=== PATIENT | female | born 1995 | race Caucasian/White ===

== ENCOUNTER 2022-02-14 13:55 | Outpatient (CLI) | payer OTHER, SELFPAY ==
[2022-02-15 14:50] LABS: Strep B DNA Probe POSITIVE (Negative)
== END 2022-02-14 13:56 | disposition home or self-care (01) ==
LOC: NFLDREF 13:55
PROVIDERS: Visit Provider Advanced Practice Midwife
DX: Z34.93 Encounter for supervision of normal pregnancy, unspecified, third trimester (principal); Z3A.36 36 weeks gestation of pregnancy
CPT/HCPCS: 76816; 87081; 87653

== ENCOUNTER 2022-03-06 06:58 | Inpatient (IN) | payer OTHER, SELFPAY ==
[2022-03-06] VITALS (16 sets, daily range): BP systolic 125–143; BP diastolic 60–83; PULSE 83–94; RESP 16–20; TEMP 36.4–37; O2SAT 97–98; BMI 39.6
--- OUTSIDE RECORDS SUMMARY | 2022-03-06 07:03 | XMS_ITS | Encounter Summary ---
:1995 Author Organization [facility] Address [address] [place] [address] Care Team Providers Name Role Phone Jerry Patterson M.D. Primary Care Provider Reason for Visit Reason Comments Med Refill Encounter Details Date Type Department Care Team Description 12/12/2021 Refill Department of Sleep Medicine Allison Whiteside M.D. Med Refill in [address] Kady [facility] [place] [address] [place] [address] [phone] Social History Tobacco Use Types Packs/Day Years Used Date Smoking Tobacco: Never Smokeless Tobacco: Never Alcohol Use Standard Drinks/Week Comments No 0 (1 standard drink = 0.6 oz pure alcoho l) Alcohol Habits Answer Date Recorded How often do you have a drink containing alcohol? Never 06/21/2021 How many drinks containing alcohol do you have on a typical Not asked day when you are drinking? How often do you have six or more drinks on one occasion? No t asked Comment: Not asked Social Isolation Answer Date Recorded In a typical week, how many times do you Once a week 06/21/2021 talk on the phone with family, friends, or neighbors? How often do you get together with friends Once a week 06/21/2021 or relatives? How often do you attend quaker or spiritism More than 4 time s per year 06/21/2021 services? Do you belong to any clubs or organizations Yes 06/21/2021 such as quaker groups, unions, fraternal or athletic groups, or school groups? How often do you attend meetings of the More than 4 times pe r year 06/21/2021 clubs or organizations you belong to? Are you now , , , 06/21/2021 , never or living with a partner? Physical Activity Answer Date Recorded On average, how many days per week do you engage in moderate to 3 days 06/21/2021 strenuous exercise (like walking fast, running, jogging, dancing, swimming, biking, or other activities that cause a light or heavy sweat)? On average, how many minutes do you engage in exercise at th is 60 min 06/21/2021 level? Stress Answer Date Recorded Do you feel stress - tense, restless, nervous, or To some ex tent 06/21/2021 anxious, or unable to sleep at night because your mind is troubled all the time - these days? Financial Resource Strain Answer Date Recorded How hard is it for you to pay for the very basics like Somew hat hard 06/21/2021 food, housing, medical care, and heating? Intimate Partner Violence Answer Date Recorded Within the last year, have you been afraid of your partner o r No 06/21/2021 ex-partner? Within the last year, have you been humiliated or emotionall y No 06/21/2021 abused in other ways by your partner or ex-partner? Within the last year, have you been kicked, hit, slapped, or No 06/21/2021 otherwise physically hurt by your partner or ex-partner? Within the last year, have you been raped or forced to have any No 06/21/2021 kind of sexual activity by your partner or ex-partner? Food Insecurity Answer Date Recorded Within the past 12 months, you worried that your food would Never true 06/21/2021 run out before you got money to buy more. Within the past 12 months, the food you bought just didn't N ever true 06/21/2021 last and you didn't have money to get more. Transportation Needs Answer Date Recorded In the past 12 months, has lack of transportation kept you f rom No 06/21/2021 medical appointments or from getting medications? In the past 12 months, has lack of transportation kept you f rom No 06/21/2021 meetings, work, or getting things needed for daily living? Housing Stability Answer Date Recorded In the last 12 months, was there a time when you were not ab le No 06/21/2021 to pay the mortgage or rent on time? In the last 12 months, how many places have you lived? 1 06/21/2021 In the last 12 months, was there a time when you did not hav e a No 06/21/[address] to sleep or slept in a senior care (including now)? Education Answer Date Recorded What is the highest level of school Bachelor's degree (e.g., BA, AB, 06/21/2021 you have completed or the highest BS) degree you have received? Sex Assigned at Date Recorded Female 06/21/2021 12:52 PM HAZ TECH documented as of this encounter Plan of Treatment Upcoming Encounters Date Type Specialty Care Team Description 04/22/2022 Appointment Laboratory Medicine Meryl Julio M.D. [address] [place], [place] [address] (Hector martin) 04/29/2022 Office Visit Endocrinology Meryl Julio M .D. [address] [place], [place] [address] (Hector martin) documented as of this encounter Visit Diagnoses Diagnosis Restless Leg Syndrome Deficiency Iron documented in this encounter Care Teams Cardroom Drawing Runner Relationship Specialty Start Date End Date Jerry Patterson M.D. PCP - General Family Medicine 05/06/21 [address] [place] [phone] documented as of this encounter
--- OUTSIDE RECORDS SUMMARY | 2022-03-06 07:03 | XMS_ITS | Encounter Summary ---
:1995 Author Organization [facility] Address [address] [place] [address] Care Team Providers Name Role Phone Jerry Patterson M.D. Primary Care Provider Encounter Details Date Type Department Care Team Description 01/14/2022 Clinical Communication Department of Kunal Osuna, Medicine in Cristina Polk M.D. [place] [address] [place], [place] [phone] Social History Tobacco Use Types Packs/Day Years [...] or relatives? How often do you attend jehovah's witness or spiritism More than 4 time s per year 06/21/2021 services? Do you belong to any clubs or organizations Yes 06/21/2021 such as jehovah's witness groups, unions, fraternal or athletic groups, or [...] place to sleep or slept in a fpc (including now)? Education Answer Date Recorded What is the highest level of school Bachelor's degree (e.g., BA, AB, 06/21/2021 you have completed or the highest BS) degree you have received? 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 Collins. She states that Dr. Collins was having her CPAP stuff sent to [facility] to have everything mailed to her, but she has not received it yet. She is wondering if we can maybe transfer to [facility], she says she has had a better experience with them as a supplier. Action Needed: Please reach out to [facility] to assist her in obtaining her supplies and informing her of what she can do. Her number is [phone] Special calling instructions: Ok to leave detailed message on voicemail? Yes Portal- please call documented in this encounter Plan of Treatment Upcoming Encounters Date Type Specialty Care Team Description 04/22/2022 Appointment Laboratory Medicine Meryl Julio M.D. [address] [place] [address] (Wo rk) 04/29/2022 Office Visit Endocrinology Meryl Julio M .D. [address] [place], [place] [address] (Wo rk) documented as of this encounter Visit Diagnoses Not on filedocumented in this encounter Care Teams Tar Processing Technician Relationship Specialty Start Date End Date Jerry Patterson M.D. PCP - General Family Medicine 05/06/21 [address] [place] [phone] documented as of this encounter
--- OUTSIDE RECORDS SUMMARY | 2022-03-06 07:03 | XMS_ITS | Encounter Summary ---
:1995 Author Organization [facility] Address [address] [place] [address] Care Team Providers Name Role Phone Jerry Patterson M.D. Primary Care Provider Reason for Referral Outpatient (Routine) - Closed Specialty Diagnoses / Procedures Referred By Contact Refer red To Contact Diagnoses Palpitations Ld Montoya M.D. [facility] Procedures Echo Transthoracic (TTE) [address] [address] Referral ID Status Reason Start Date Expiration Date Visits Requ ested Visits Authorized [id number] Closed 10/10/2021 10/10/2022 1 1 Reason for Visit Outpatient (Routine) - Closed Specialty Diagnoses / Procedures Referred By Contact Refer red To Contact Diagnoses Palpitations Ld Montoya M.D. [facility] Procedures Echo Transthoracic (TTE) [address] [address] Referral ID Status Reason Start Date Expiration Date Visits Requ ested Visits Authorized [id number] Closed 10/10/2021 10/10/2022 1 1 Encounter Details Date Type Department Care Team Description 10/31/2021 Hospital Encounter Department of Ld Montoya Cardiovascular Diseases in [place]. [place], Ernesto dimas [address] [place] [phone] [address] [phone] [place] [address] Social History Tobacco Use Types Packs/Day Years [...] or relatives? How often do you attend caodaism or hoahaoism More than 4 time s per year 06/21/2021 services? Do you belong to any clubs or organizations Yes 06/21/2021 such as caodaism groups, unions, fraternal or athletic groups, or [...] place to sleep or slept in a [place] [facility] [place] (including now)? Education Answer Date Recorded What is the highest level of school Bachelor's degree (e.g., BA, AB, 06/21/2021 you have completed or the highest BS) degree you have received? 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 Syndrome propranoloL (INDERAL) 80 Take 80 mg by mouth 0 mg tablet every 12 (twelve) hours. TENS unit and electrodes Acute treatment is 1 each 0 (Cefaly) combo for 60 minutes. packIndications: Preventive treatment Migraine Headache is 20 min per day. iron,carbonyl-vitamin C Take 1 tablet (65 mg 30 tablet 2 12/16/2021 (VITRON-C) 65 mg iron- of iron total) by [address] mouth every evening. tabletIndications: Do not crush or Restless Leg Syndrome, chew. Deficiency Iron levothyroxine Take 1 tablet (112 90 tablet 3 07/16/202104/2022 (SYNTHROID, LEVOTHROID) mcg total) by mouth 112 mcg tablet daily. Take 2 extra tabs/week during documented as of this encounter Plan of Treatment Upcoming Encounters Date Type Specialty Care Team Description 04/22/2022 Appointment Laboratory Medicine Meryl Julio M.D. [address] [place] [address] (Hector martin) 04/29/2022 Office Visit Endocrinology Meryl Julio M .D. [address] [place] [address] (Hector martin) documented as of this encounter Procedures Procedure Name Priority Date/Time Associated Diagnosis Comme nts (TTE) 2D ECHO Routine 10/31/2021 1:25 PM Palpitations Results for this DOPPLER COLOR CDT procedure are in the results section. documented in this encounter Results (TTE) 2D ECHO DOPPLER COLOR (10/31/2021 1:25 PM CDT) Specimen (Source) Anatomical Location Collection Method / Collectio n Time Received Time / Laterality Volume Narrative [facility] - 11/01/2021 8:28 AM CDT This study was read by an external provider and scanned to the patient's chart. Please launch the scanned documen t link to view the full report. Reinaldo Holliday M.D. CV ECHO PROCEDURES Performing Organization Address City/State/ZIP Code Phon e Number CV EIMS CV EIMS NA documented in this encounter Visit Diagnoses Diagnosis Palpitations documented in this encounter Care Teams Eyedotter Relationship Specialty Start Date End Date Jerry Patterson M.D. PCP - General Family Medicine 05/06/[address] [place] [phone] documented as of this encounter
--- OUTSIDE RECORDS SUMMARY | 2022-03-06 07:03 | XMS_ITS | Encounter Summary ---
:1995 Author Organization [facility] Address [address] [place] [address] Care Team Providers Name Role Phone Jerry Patterson M.D. Primary Care Provider Reason for Visit Reason Comments Form Review [facility]CPAP Supp[facility] Encounter Details Date Type Department Care Team Description 01/23/2022 Clinical Communication Department of Jerry Patterson For m Review Family Medicine in [place] ([facility] [place], [place] [address] Medical-CPAP [address] [place], [place] Supplies) [place] [id number] Social History Tobacco Use Types Packs/Day Years [...] or relatives? How often do you attend rastafari or caodaism More than 4 time s per year 06/21/2021 services? Do you belong to any clubs or organizations Yes 06/21/2021 such as rastafari groups, unions, fraternal or athletic groups, or [...] place to sleep or slept in a fci (including now)? Education Answer Date Recorded What is the highest level of school Bachelor's degree (e.g., BA, AB, 06/21/2021 you have completed or the highest BS) degree you have received? 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 Telephone Encounter - Trinh Page - 01/23/2022 1:22 PM CDT Form was emailed to Bin Patterson for electronic review/signature. TRIAGE ASSISTANT: [employer] PHONE NUMBER: [phone] INFO REQUESTED: CPAP supplies INSTRUCTIONS: Fax form to [phone] documented in this encounter Plan of Treatment Upcoming Encounters Date Type Specialty Care Team Description 04/22/2022 Appointment Laboratory Medicine Meryl Julio M.D. [address] [place] [address] (Wo rk) 04/29/2022 Office Visit Endocrinology Meryl Julio M .D. [address] [place], [place] [address] (Wo rk) documented as of this encounter Visit Diagnoses Not on filedocumented in this encounter Care Teams Gaming Commissioner Relationship Specialty Start Date End Date Jerry Patterson M.D. PCP - General Family Medicine 05/06/21 [address] [place] [address] documented as of this encounter
--- OUTSIDE RECORDS SUMMARY | 2022-03-06 07:03 | XMS_ITS | Clinical Summary ---
:1995 Author Organization [facility] [place] [address] Care Team Providers Name Role Phone Jerry Patterson MD Primary Care Provider Allergies Active Allergy Reactions Severity Noted Date Comments Ciprofloxacin Hives 06/26/2021 Clindamycin Anaphylaxis High 11/24/2016 Gentamicin Anaphylaxis High 06/26/2021 Medications Medication Sig Dispensed Refills Start Date End Date Status levothyroxine Take 1 Tablet 0 10/10/2021 A ctive (SYNTHROID) 112 mcg (112 mcg) by tablet mouth before breakfast. Take twice daily on Thursday and Thursday metFORMIN (GLUCOPHAGE Take 1,000 mg by 0 02/13/2021 02/13/2022 XR) 500 mg mouth 2 times Extended-Release daily. tablet propranolol ER Take 80 mg by 0 02/22/2021 02/22/2022 (INDERAL LA) 80 mg mouth. Cs24 Sustained-Release capsule Active Problems Not on file Social History Tobacco Use Types Packs/Day Years Used Date Never Smoker Smokeless Tobacco: Never Used Alcohol Use Standard Drinks/Week Comments Never 0 (1 standard drink = 0.6 oz pure alcoho l) Alcohol Habits Answer Date Recorded How often do you have a drink containing alcohol? Never 06/26/2021 How many drinks containing alcohol do you have on a typical Not asked day when you are drinking? How often do you have six or more drinks on one occasion? No t asked Comment: Not asked Sex Assigned at Date Recorded Not on file Obstetrics History Last Filed Vital Signs Vital Sign Reading Time Taken Comments Blood Pressure 110/66 10/10/2021 2:04 PM CDT Pulse 84 10/10/2021 2:04 PM CDT Temperature 37 ??C (98.6 ??F) 06/26/2021 5:02 PM SUPERVISORY GEOGRAPHER Respiratory Rate 15 06/26/2021 7:56 PM SUPERVISORY GEOGRAPHER Oxygen Saturation 99% 06/26/2021 10:15 PM SUPERVISORY GEOGRAPHER Inhaled Oxygen Concentration - - Weight 100.7 kg (222 lb) 10/10/2021 2:04 PM CDT Height 167.6 cm (5' 6) 06/26/2021 5:02 PM SUPERVISORY GEOGRAPHER Body Mass Index 35.83 06/26/2021 5:02 PM SUPERVISORY GEOGRAPHER Plan of Treatment Health Maintenance Due Date Last Done Comments COVID-19 vaccine series (#1) 02/18/1994 Tdap 2004 Depression screening for age 12+ 2005 BMI (ht and wt on same day) for age 18+ 08/19/2011 Hepatitis C screening for age 18-79 08/19/2011 Tetanus booster 2013 Pap test for age 21-65 2014 Influenza for age 9-49 01/23/2022 Results Not on filefrom Last 3 Months Insurance Payer Benefit Plan / Subscriber ID Effective Dates Phone Addre ss Type Group BLUE [employer]OSS BLUE [employer] OF [id number] 2012-Present [address] [place] [address] [employer] WORK[employer] [id number] 2020-Presen [address] [place] [address] [facility] [id number] 2021-Present [address] [place] [address] [facility] [id number] 2021-Present [address] [place] [address] [employer] OF [id number] 2009-Present [address] [place] [address] Felecia Cardenas Personal/Family Self 1995 [address] (Home) [place] [address] Felecia Cardenas Workers Comp Self 1995 [address] (Home) [place] [phone] (Work) Felecia Cardenas Personal/Family Self 1995 [address] (Home) [place] [phone] (Work) Advance Directives Latest Code Status on File Code Status Date Activated Date Inactivated Comments Full Code 10/29/2011 7:36 AM 10/29/2011 7:15 PM Care Teams Microsoft Windows Engineer Relationship Specialty Start Date End Date Jerry Patterson MD PCP - General Family Practice 06/26/[address] [place] [address] [place] [phone]
--- OUTSIDE RECORDS SUMMARY | 2022-03-06 07:03 | XMS_ITS | Encounter Summary ---
:1995 Author Organization [facility] Address [address] [place] [address] Care Team Providers Name Role Phone Jerry Patterson M.D. Primary Care Provider Encounter Details Date Type Department Care Team Description 11/26/2021 Abstract Department of Obstetrics and [facility] Rhett andrade M.D. Gynecology in [place], [address] [place] [phone] [place] [address] [place] [address] [phone] Social History Tobacco Use Types Packs/Day Years [...] or relatives? How often do you attend taoism or confucianism More than 4 time s per year 06/21/2021 services? Do you belong to any clubs or organizations Yes 06/21/2021 such as taoism groups, unions, fraternal or athletic groups, or [...] at Date Recorded Female 06/21/2021 12:52 PM CASINO DEALER documented as of this encounter Plan of Treatment Upcoming Encounters Date Type Specialty Care Team Description 04/22/2022 Appointment Laboratory Medicine Meryl Julio M.D. [address] [place], [place] [address] (Wo rk) 04/29/2022 Office Visit Endocrinology Meryl Julio M .D. [address] [place], [place] [address] (Wo rk) documented as of this encounter Visit Diagnoses Not on filedocumented in this encounter Care Teams Course Developer Relationship Specialty Start Date End Date Jerry Patterson M.D. PCP - General Family Medicine 05/06/21 [address] [place] [phone] documented as of this encounter
--- OUTSIDE RECORDS SUMMARY | 2022-03-06 07:03 | XMS_ITS | Encounter Summary ---
:[address] [facility] Address [address] [place] [address] Care Team Providers Name Role Phone Jerry Patterson M.D. Primary Care Provider Reason for Referral Outpatient (Routine) - Authorized Specialty Diagnoses / Procedures Referred By Contact Refer red To Contact Endocrinology Meryl Julio M.D. [address] [address] Referral ID Status Reason Start Date Expiration Date Visits V isits Requested Authorized [id number] Authorized 02/03/2022 02/02/2025 1 1 Reason for Visit Outpatient (Routine) - Closed Specialty Diagnoses / Procedures Referred By Contact Refer red To Contact Endocrinology Diagnoses Hypothyroidism Primary Encounter For Supervision Of Normal Unspecified Trimester (HCC) Rhett Zazueta M.D. [address] [address] Referral ID Status Reason Start Date Expiration Date Visits Requ ested Visits Authorized [id number] Closed 12/13/2021 12/13/2022 1 1 Encounter Details Date Type Department Care Team Description 02/03/2022 Office Visit Department of Meryl Julio, Hypothyroidi sm Primary (Primary Dx); Endocrinology in M.D. Thyroiditis Deric's; [place], [place] [address] [facility] 34 Weeks Gestation (HCC) [address] [place] [phone] Social History Tobacco Use Types Packs/Day Years [...] or relatives? How often do you attend buddhism or pentecostal More than 4 time s per year 06/21/2021 services? Do you belong to any clubs or organizations Yes 06/21/2021 such as buddhism groups, unions, fraternal or athletic groups, or [...] place to sleep or slept in a usp (including now)? Education Answer Date Recorded What is the highest level of school Bachelor's degree (e.g., BA, AB, 06/21/2021 you have completed or the highest BS) degree you have received? 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 - 02/03/2022 11:00 AM CDT Endocrinology Clinic Note New Consult Date:02/03/2022 Chief Complaint Hypothyroidism (currently ) Referred by Rhett Zazueta M.D. History of Present Illness Felecia Cardenas is a 26 y.o. female with PMH as below who presents to clinic for hypothyroidism management. 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 Parikh for PCOs at that time. She is currently , 34 weeks and her SHARON is 03/14/2022. Her levothyroxine dose pre- was 112 mcg, upon becoming she was advised to take 2 extra tablets per week (this was done in the second trimester though), she is now back to 12 mcg daily(since week 28) due to noticeable palpitations the day after she takes extra pill, evaluated by cardiology and cardiac issues. Her palpitations resolved once she reduced the dose. Generally feeling well, no fatigue, constipation or cold intolerance. Sleeps well. Physically active. She has muscle cramps at her calves especially at night. No neck discomfort, difficulty swallowing, breathing or voice changes. Her maternal side is significant for thyroid disorders including Deric's thyroiditis and Graves disease. Past Medical History: Diagnosis Date Anxiety Generalized Disorder 2010 Body Mass Index 40.0 To 44.9 Adult ([facility]) 05/22/2016 Body mass index (BMI) 40.0-44.9, adult Rule activated problem due to BMI 40-44 posted on 05/22 at 08:45 LOSS PREVENTION LEAD. Gallbladder Disorder Removed Gastroesophageal Reflux Disease NOS 2009 Hypothyroidism 2013 Migraine Headache 08/05/2018 Nodule Thyroid 2014 Obstructive Sleep Apnea Adult 10/14/2016 Overweight Body Mass Index 25-29.9 Adult 05/22/2016 Body mass index (BMI) 40.0-44.9, adult Rule activated problem due to BMI 40-44 posted on 05/22 at 08:45 LOSS PREVENTION LEAD. Pancreatitis Acute ([facility]) 2009 Polycystic Ovary Syndrome 08/06/2017 Rhinitis Allergic Animal 10/04/2018 Rhinitis Allergic Due To Outdoor Pollen 10/04/2018 Rhinitis Allergic Dust Mite 10/04/2018 Thyroiditis Deric's 08/06/2017 Past Surgical History: Procedure Laterality Date APPENDECTOMY N/A Appendectomy APPENDECTOMY 2010 ARTHROSCOPY KNEE Right 04/2015 CHOLECYSTECTOMY N/A Cholecystectomy FUNCTIONAL ENDOSCOPY SINUS SURGERY WITH NAVIGATION Right 10/08/2018 Procedure: FUNCTIONAL ENDOSCOPY SINUS SURGERY WITH NAVIGATION Septoplasty and Bilateral turbinate reduction; Surgeon: Nisa Kahn M.D.; Location: [facility] OR GALLBLADDER SURGERY 2010 JOINT REPLACEMENT 2014 And 2012 OTHER CONVERTED SHX (SEE COMMENT) N/A 03/21/2011 >1. ERCP. 2. Needle knife and completion biliary sphincterotomy. OTHER CONVERTED SHX (SEE COMMENT) N/A 03/11/2010 >EGD with small bowel, gastric, and esophageal biopsies. TOTAL KNEE ARTHROPLASTY Left 09/03/2011 partial total knee Social History Tobacco Use Smoking status: Never Smokeless tobacco: Never Vaping Use Vaping Use: never used Substance Use Topics Alcohol use: No Drug use: No Family History Problem Relation Age of Onset Endometriosis Mother Gestational diabetes Mother Thyroid disease Mother Migraines Mother Depression Mother Ovarian cancer Maternal Grandmother Hyperthyroidism Maternal Grandmother Migraines Maternal Grandmother Anxiety disorder Maternal Grandmother Ulcerative colitis Maternal Grandfather Allergies Allergen Reactions Clindamycin Anaphylaxis Gentamicin Anaphylaxis Ciprofloxacin Anaphylaxis Current Outpatient Medications Medication Sig Dispense Refill levothyroxine (SYNTHROID, LEVOTHROID) 100 mcg tablet Take 1 tablet (100 mcg total) by mouth daily. Take 2 extra tabs/week during 90 tablet 3 metFORMIN XR (GLUCOPHAGE-XR) 500 mg 24 hr tablet Take 2 tablets (1,000 mg total) by mouth 2 (two) times a day. 360 tablet 3 propranoloL (INDERAL) 80 mg tablet Take 80 mg by mouth every 12 (twelve) hours. TENS unit and electrodes (Cefaly) combo pack Acute treatment is for 60 minutes. Preventive treatment is 20 min per day. (Patient taking differently: Acute treatment is for 60 minutes. Preventive treatment is 20 min per day.) 1 each 0 Vitron-C 65 mg iron- [address] tablet TAKE 1 TABLET (65 MG OF IRON TOTAL) BY MOUTH EVERY EVENING. DO NOT CRUSH OR CHEW. 30 tablet 2 No current facility-administered medications for this visit. Review of Systems A 10-system review was conducted and was negative except for what's noted in the HPI. The following systems were reviewed: Constitutional, cardiovascular, respiratory, gastrointestinal, genitourinary, musculoskeletal, neurologic, psychiatric, endocrinological, and hematological. Physical Examination Vitals: 02/03/22 1030 BP: 121/70 BP Location: Right arm Patient Position: Sitting Cuff Size: Regular Pulse: 82 Weight: 111 kg Height: 169 cm General: well developed, alert, oriented, not in distress, Psych: appropriate mood and affect Skin: no rash or ulcers on visualized skin Head: normocephalic, atraumatic Eyes: EOMI, no scleral icterus, no signs of orbitopathy Neck: appears supple, no visible goiter or nodules Pulmonary: easy work of breathing Cardiovascular: appears warm and well-perfused Neurological: alert and oriented, conversant Review of Labs The following labs were reviewed and discussed with the patient on 02/03/2022 01/20/2022 TSH 0.93 FT4 1.25 10/09/2016 TPO 26.7 Chart Review Previous records, other specialties and external notes were reviewed on 02/03/2022 and included in the note Assessment And Plan Felecia Cardenas is a 26 y.o. female with #1 Hypothyroidism Primary #2 Thyroiditis Deric's #3 34 Weeks Gestation (HCC) Clinically euthyroid on levothyroxine 112 mcg daily which is the same as her pre- dose. Shehad palpitations on higher dose. Her SHARON is 03/14/2022 Plan: - Continue current dose levothyroxine until delivery - Decrease to levothyroxine to 100 mcg daily immediately after delivery - Check TSH and FT4 6 weeks post - Follow up 6 weeks post All questions were answered to my best knowledge. Thanks for referring this pleasant patient to endocrinology Total time preparing for the visit, [id number] time obtaining history, counseling and educating the patient, care coordination, reviewing results, communicating results to patient and documenting clinical information in the electronic health record: 45 minutes , spent on the same calendar day, more than 50% of the time was [id number] with the patient. Meryl Julio MD.................... 02/03/2022 Endocrinology, Diabetes and Metabolism documented in this encounter Plan of Treatment Upcoming Encounters Date Type Specialty Care Team Description 04/22/2022 Appointment Laboratory Medicine Meryl Julio M.D. [facility] [place], [place] [address] (Wo rk) 04/29/2022 Office Visit Endocrinology Meryl Julio M .D. [address] [place] [address] (Wo rk) Scheduled Orders Name Type Priority Associated Diagnoses Order S chedule T4 (Thyroxine), Free Lab Routine Thyroiditis Deric's Expected: 04/24/2022 Hypothyroidism Primary (Appr oximate), Expires: 08/03/2022 S-TSH Lab Routine Thyroiditis Hash imoto's Expected: 04/24/2022 (Thyroid-Stimulating Hypothyroidism Prima ry (Approximate), Expires: Hormone - Sensitive) 023 Scheduled Referrals Name Type Priority Associated Order Schedule Diagnoses Endocrinology office Outpatient Referral Routine Expected: visit (clinic) 04/28/2022 (Approximate), Expires: 05/05/2023 documented as of this encounter Visit Diagnoses Diagnosis Hypothyroidism Primary - Primary Thyroiditis Deric's 34 Weeks Gestation (HCC) documented in this encounter Care Teams Television Receiver Analyzer Relationship Specialty Start Date End Date Jerry Patterson M.D. PCP - General Family Medicine 05/06/21 [address] [place] [address] documented as of this encounter
--- OUTSIDE RECORDS SUMMARY | 2022-03-06 07:03 | XMS_ITS | Encounter Summary ---
:1995 Author Organization [facility] Address [address] [place] [address] Care Team Providers Name Role Phone Jerry Patterson M.D. Primary Care Provider Reason for Visit Reason Comments Med Refill Encounter Details Date Type Department Care Team Description 12/03/2021 Refill Department of Endocrinology in S Jerry sawant M.D. Med Refill [place], [place] [address] [place] [address] [place] [address] [phone] Social History Tobacco Use Types Packs/Day Years [...] or relatives? How often do you attend mormonism or confucianism More than 4 time s per year 06/21/2021 services? Do you belong to any clubs or organizations Yes 06/21/2021 such as mormonism groups, unions, fraternal or athletic groups, or [...] place to sleep or slept in a alf (including now)? Education Answer Date Recorded What is the highest level of school Bachelor's degree (e.g., BA, AB, 06/21/2021 you have completed or the highest BS) degree you have received? 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 - 12/03/2021 9:[address] Parikh no longer works for [employer] [place] [employer]. She has not est care with [facility] documented in this encounter Plan of Treatment Upcoming Encounters Date Type Specialty Care Team Description 04/22/2022 Appointment Laboratory Medicine Meryl Julio M.D. [address] [place] [address] (Wo rk) 04/29/2022 Office Visit Endocrinology Meryl Julio M .D. [facility] [place], [place] [address] (Wo veronica) documented as of this encounter Visit Diagnoses Diagnosis Polycystic Ovary Syndrome documented in this encounter Care Teams Horse Show Judge Relationship Specialty Start Date End Date Jerry Patterson M.D. PCP - General Family Medicine 05/06/21 [address] [place] [phone] documented as of this encounter
--- OUTSIDE RECORDS SUMMARY | 2022-03-06 07:03 | XMS_ITS | Encounter Summary ---
:1995 Author Organization [facility] Address [address] [place] [address] Care Team Providers Name Role Phone Jerry Patterson M.D. Primary Care Provider Encounter Details Date Type Department Care Team Description 09/13/2021 Clinical Communication Department of Kunal Osuna, Medicine in Cristina Polk M.D. [place] [address] [place], [place] [phone] Social History Tobacco Use Types Packs/Day Years [...] or relatives? How often do you attend scientologist or sikhism More than 4 time s per year 06/21/2021 services? Do you belong to any clubs or organizations Yes 06/21/2021 such as scientologist groups, unions, fraternal or athletic groups, or [...] place to sleep or slept in a longterm (including now)? Education Answer Date Recorded What is the highest level of school Bachelor's degree (e.g., BA, AB, 06/21/2021 you have completed or the highest BS) degree you have received? 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 - 09/16/2021 3:52 PM CDT Pt is needing cardiology appointment set up in [place] will forward to scheduling.Electronically signed by: Noemí Kruger R.N. 09/16/21 3:53 PM CDT Telephone Encounter - Myrna Griffiths R.N. - 09/16/2021 12:12 PM CDT TEMPORARY STAFF ACCOUNTANT card nurses, could this patient get in with TEMPORARY STAFF ACCOUNTANT cards to establish? Telephone Encounter - Deyanira Gagnon APRN, C.N.P., D.N.P. - 09/16/2021 11:54 AM CDT Level 3 with JAY or MD. Apparently does her medical care in [place]- therefore, this could be a consult for [place] if she desires. Deyanira Telephone Encounter - Myrna Griffiths R.N. - 09/16/2021 11:01 AM CDT Referral reason: palpitations , pvc on holter Has this patient seen Cards: no Testing completed: holter Primary care provider: Dr Patterson Referring provider/clinic: same as above Triage response ( MD or JAY, time frame) Telephone Encounter - Allison Waggoner - 09/13/2021 3:44 PM CDT Patient has a referral to Cardiology for, Palpitation, PVC on Holter. Please triage Thank you documented in this encounter Plan of Treatment Upcoming Encounters Date Type Specialty Care Team Description 04/22/2022 Appointment Laboratory Medicine Meryl Julio M.D. [address] [place], [place] [address] (Wo veronica) 04/29/2022 Office Visit Endocrinology Meryl Julio M .D. [address] [place], [place] [address] (Wo rk) documented as of this encounter Visit Diagnoses Not on filedocumented in this encounter Care Teams Door Captain Relationship Specialty Start Date End Date Jerry Patterson M.D. PCP - General Family Medicine 05/06/[address] [place] [phone] documented as of this encounter
--- OUTSIDE RECORDS SUMMARY | 2022-03-06 07:03 | XMS_ITS | Encounter Summary ---
:1995 Author Organization [facility] Address [address] [place] [address] Care Team Providers Name Role Phone Jerry Patterson M.D. Primary Care Provider Encounter Details Date Type Department Care Team Description 02/10/2022 Orders Only [facility] MAIN OR Cueva, August M, Labor Threatened Not [address] [facility] Premature (HCC) [place] [address] [address] (Primary Dx) [phone] [place] [phone] Social History Tobacco Use Types Packs/Day Years [...] or relatives? How often do you attend shinto or confucianism More than 4 time s per year 06/21/2021 services? Do you belong to any clubs or organizations Yes 06/21/2021 such as shinto groups, unions, fraternal or athletic groups, or [...] place to sleep or slept in a skilled nursing (including now)? Education Answer Date Recorded What is the highest level of school Bachelor's degree (e.g., BA, AB, 06/21/2021 you have completed or the highest BS) degree you have received? 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 [address] [place], [place] [address] (Wo rk) 04/29/2022 Office Visit Endocrinology Meryl Julio M .D. [address] [place], [place] [address] (Wo rk) documented as of this encounter Visit Diagnoses Diagnosis Labor Threatened Not Premature (HCC) - P rimary documented in this encounter Care Teams Target Network Analyst Relationship Specialty Start Date End Date Jerry Patterson M.D. PCP - General Family Medicine 05/06/21 [address] [place] [address] documented as of this encounter
--- OUTSIDE RECORDS SUMMARY | 2022-03-06 07:03 | XMS_ITS | Clinical Summary ---
:1995 Author Organization [facility] Address [address] [place] [address] Care Team Providers Name Role Phone Jerry Patterson M.D. Primary Care Provider Source Comments Patient records contain information from all sites at [facility]. For routine questions regarding patient records, call [phone] during business hours, M-F 8:00 AM - 5:00 PM Central Time. Record requests for emergency care only can be directed to [phone] at any time.[facility] Allergies Active Allergy Reactions Severity Noted Date Comments Ciprofloxacin Anaphylaxis 2013 Clindamycin Anaphylaxis High 09/19/2014 Gentamicin Anaphylaxis High 02/07/2014 Medications Medication Sig Dispensed Refills Start Date End Date Status TENS unit and Acute treatment is 1 each 0 08/17/2020 Active electrodes (Cefaly) for 60 minutes. combo Preventive treatment packIndications: is 20 min per day. Migraine Headache Additional Information Patient taking differently: Acute treatment is for 60 minutes. Preventive treatment is 20 min per day., Other, Reported on 09/05/2021 metFORMIN XR (GLUCOPHAGE-XR) Take 2 tablets (1,000 360 tablet 3 02/13/2021 Active 500 mg 24 hr tabletIndications: mg total) by mouth 2 Polycystic Ovary Syndrome (two) times a day. propranoloL (INDERAL) 80 mg Take 80 mg by mouth 0 Active tablet every 12 (twelve) hours. Vitron-C 65 mg iron- [address] TAKE 1 TABLET (65 MG 30 tablet 2 12/16/2021 Active tabletIndications: Restless Leg OF IRON TOTAL) BY Syndrome, Deficiency Iron MOUTH EVERY EVENING. DO NOT CRUSH OR CHEW. levothyroxine (SYNTHROID, Take 1 tablet (100 90 tablet 3 02/03 Active LEVOTHROID) 100 mcg tablet mcg total) by mouth daily. Take 2 extra tabs/week during Active Problems Problem Noted Date 34 Weeks Gestation 02/03/2022 Arthroscopy Knee Status Post 06/14/2021 Hypothyroidism Primary 04/16/2021 Pain Knee Left 03/24/2021 Pain Back Thoracic 03/15/2021 Unspecified Injury Left Quadriceps Muscle Fascia And T endon Initial 03/15/2021 Obesity Body Mass Index 30-39.9 Adult 06/27/2019 Deviation Nasal Septal 10/05/2018 Overview: Added automatically from request for shruthi armijo [id number] Sinusitis Chronic Maxillary 10/04/2018 Rhinitis Allergic Due To Outdoor Pollen 10/04/2018 Rhinitis Allergic Dust Mite 10/04/2018 Rhinitis Allergic Animal 10/04/2018 Pulsatile Tinnitus Left Ear 10/04/2018 Migraine Headache 08/05/2018 Polycystic Ovary Syndrome 08/06/2017 Thyroiditis Deric's 08/06/2017 Obstructive Sleep Apnea Adult 10/14/2016 Estimated Date of Delivery Comments Yes 03/13/2022 Date entered prior t o episode creation Resolved Problems Problem Noted Date Resolved Date Overweight Body Mass Index 25-29.9 Adult 05/22/2016 06/27/2019 Overview: Body mass index (BMI) 40.0-44.9, adult Rule activated problem due to BMI 40-44 posted on 05/22 at 08:45 DETECTIVE AND INTELLIGENCE ANALYST. Encounters Date Type Specialty Care Team Description 02/10/2022 Orders Only Cueva, August Labor Threatene d Not M, P.A.-C. Premature (HCC) (Primary Dx) 02/03/2022 Office Visit Endocrinology Meryl Julio, Hypothyroidi sm Primary (Primary Dx); M.D. Thyroiditis Has himoto's; 34 Weeks Gestat ion (HCC) 01/23/2022 Clinical Communication Family Medicine Salim, Jerry, F orm Review (Shane Aguilera [facility]) 01/15/2022 Orders Only Sleep Medicine Karina, Restless Leg Syndrome Allison Nicholson M.D. (Primary Dx) 01/14/2022 Clinical Communication Family Medicine Jerry Patterson M.D. 01/08/2022 Clinical Communication Endocrinology Meryl Julio M, Hy pothyroid + M.DSebastian New e ndo consult 12/13/2021 Community Orders Barnacle, Hypothyroid ism Primary (Primary Dx); Rhett Steward M.D. Encounter For Supervision Of Normal Unspecified Trimester (HCC) 12/12/2021 Refill Sleep Medicine Karina, Med Refill Allison Nicholson M.D. from Last 3 Months Immunizations Name Administration Dates Next Due 4vHPV (discontinued) 06/16/2011, 08/28/2008, 06/21/2008 DTP 02/13/1995, 02/12/1994, 1993, 1993 DTaP (Infanrix, Tripedia) 06/14/1998, 02/13/1995, 02/12/1994 , 1993, 1993 HepA Adult 04/24/2016, 07/24/2010 HepB, Unspecified 03/12/1994, 1993, 1993 Hib (PRP-T) (ACTHIB, HIBERIX) 08/22/1994, 02/12/1994, 1993, 1993 IPV 06/14/1998, 02/12/1994, 1993, 1993 Influenza, Injectable, Mdck, 03/03/2018 Preservative Free, Quadrivalent Influenza, Injectable, Quadrivalent 03/15/2020 Influenza, Seasonal, Injectable 04/24/2016 Influenza, Unspecified 05/08/2016, 03/08/2014, 03/02/2013 MCV4 (Menactra) 07/24/2010 MMR 06/14/1998, 08/22/1994 OPV 06/14/1998, 02/12/1994, 1993, 1993 Td (Adult), adsorbed 04/24/2016 Tdap 01/15/2006 MIAN 07/25/2010, 06/14/1998 influenza vaccine quad 02/22/2019 (FLUZONE/FLUARIX) (6 months and older)(PF) typhoid vaccine, parenteral 07/24/2010 (discontinued) Family History Medical History Relation Name Comments Ulcerative colitis Maternal Grandfather Sly Cardenas Anxiety disorder Maternal Grandmother Clementine Cardenas Hyperthyroidism Maternal Grandmother Clementine Cardenas Migraines Maternal Grandmother Clementine Cardenas Ovarian cancer Maternal Grandmother Clementine Cardenas Depression Mother Saqib Cardenas Endometriosis Mother Saqib Cardenas Gestational diabetes Mother Saqib Cardenas Migraines Mother Saqib Cardenas Thyroid disease Mother Saqib Cardenas Relation Name Status Comments Maternal Grandfather Sly Cardenas Maternal Grandmother Clementine Cardenas Mother Saqib Cardenas Social History Tobacco Use Types Packs/Day Years Used Date Smoking Tobacco: Never Smokeless Tobacco: Never Tobacco Cessation: Counseling Given: Yes Alcohol Use Standard Drinks/Week Comments No 0 [...] or relatives? How often do you attend faith or sikhism More than 4 time s per year 06/21/2021 services? Do you belong to any clubs or organizations Yes 06/21/2021 such as faith groups, unions, fraternal or athletic groups, or [...] place to sleep or slept in a detention (including now)? Education Answer Date Recorded What is the highest level of school Bachelor's degree (e.g., BA, AB, 06/21/2021 you have completed or the highest BS) degree you have received? Estimated Date of Delivery Comments Yes 03/13/2022 Date entered prior t o episode creation Sex Assigned at Date Recorded Female 06/21/2021 12:52 PM DETECTIVE AND INTELLIGENCE ANALYST Last Filed Vital Signs Vital Sign Reading Time Taken Comments Blood Pressure 121/70 02/03/2022 10:30 AM CDT Pulse 82 02/03/2022 10:30 AM CDT Temperature 36.8 ??C (98.2 ??F) 09/05/2021 9:46 AM CDT Respiratory Rate 20 09/05/2021 9:46 AM CDT Oxygen Saturation 98% 08/30/2021 1:05 PM CDT Inhaled Oxygen Concentration - - Weight 111 kg (245 lb 9.5 oz) 02/03/2022 10:30 AM CDT Height 169 cm (5' 6.54) 02/03/2022 10:30 AM CDT Body Mass Index 39 02/03/2022 10:30 AM CDT Plan of Treatment Upcoming Encounters Date Type Specialty Care Team Description 04/22/2022 Appointment Laboratory Medicine Meryl Julio M.D. [address] [place], [place] [address] (Hector martin) 04/29/2022 Office Visit Endocrinology Meryl Julio M .D. [address] [place], [place] [address] (Hector martin) Health Maintenance Due Date Last Done Comments HIV Screening 1993 Hepatitis C Screening 1993 COVID-19 Vaccine (#1) 02/18/1994 Cervical Cancer Screening 10/08/2020 10/08/2017, 07/05/2014 Influenza Vaccine (#1) 2022 03/15/2020, 02/22/2019, 03/03/2018, Additional history exists Thyroid Stimulating Hormone 08/14/2022 08/14/2021, 07/11/19 22, (TSH) test for thyroid 01/23/2021, Additional function history exists DTaP,Tdap,and Td Vaccines 04/24/2026 04/24/2016, 01/15/2006 , (8 - Td or Tdap) 06/14/1998, Additional history exists Hepatitis B Vaccines Completed 03/12/1994, 1993, 1993 Depression Screening Completed 08/14/2021 (Annual PHQ-2) Pneumococcal vaccine (0-64 Aged Out No lo nger eligible years) based on patient 's age to complete this topic Medical Devices Implanted Type Area Informatics Scientist Device Shelf Model / Identifier Expiration Serial / Date Lot Hardware E.G. Hardware Left: Pins/Screws/Ro e.g. Knee ds pins/screws/ rods Insurance Payer Benefit Plan Subscriber ID Effective Phone Address Typ e / Group Dates [facility] [id number] 2021-Pre [phone] [address] Indemnity RECOVERY sent [address] RISHI, CLAIMS [place] [id number] [facility] [id number] 2021-Prese [phone] [address] Medicaid HMO nt [address] [place] [address] [facility] Workers Comp Employer [phone] [address] [facility] (Home) [place], [place] [address] Advance Directives For more information, please contact: [phone] Latest Code Status on File Code Status Date Activated Date Inactivated Comments Full Code 10/08/2018 4:08 PM 10/08/2018 6:52 PM Full Code: Not Discussed Due to: Patient not available Care Teams Field Worker Relationship Specialty Start Date End Date Jerry Patterson M.D. PCP - General Family Medicine 05/06/21 [address] [place] [address]
--- OUTSIDE RECORDS SUMMARY | 2022-03-06 07:03 | XMS_ITS | Encounter Summary ---
:1995 Author Organization [facility] Address [address] [place] [address] Care Team Providers Name Role Phone Jerry Patterson M.D. Primary Care Provider Reason for Visit Reason Comments Med Refill Encounter Details Date Type Department Care Team Description 10/31/2021 Refill Department of Endocrinology in S Jerry sawant M.D. Med Refill [place], [place] [address] [place] [address] [place] [address] [phone] Social History Tobacco Use Types Packs/Day Years [...] or relatives? How often do you attend sabianist or bahai More than 4 time s per year 06/21/2021 services? Do you belong to any clubs or organizations Yes 06/21/2021 such as sabianist groups, unions, fraternal or athletic groups, or [...] place to sleep or slept in a custodial (including now)? Education Answer Date Recorded What is the highest level of school Bachelor's degree (e.g., BA, AB, 06/21/2021 you have completed or the highest BS) degree you have received? Sex Assigned at Date Recorded Female 06/21/2021 12:52 PM PROPERTY MANAGEMENT SPECIALIST documented as of this encounter Plan of Treatment Upcoming Encounters Date Type Specialty Care Team Description 04/22/2022 Appointment Laboratory Medicine Meryl Julio M.D. [address] [place], [place] [address] (Hector martin) 04/29/2022 Office Visit Endocrinology Meryl Julio M .D. [address] [place], [place] [address] (Hector martin) documented as of this encounter Visit Diagnoses Diagnosis Polycystic Ovary Syndrome documented in this encounter Care Teams Income Tax Return Preparer Relationship Specialty Start Date End Date Jerry Patterson M.D. PCP - General Family Medicine 05/06/21 [address] [place] [address] documented as of this encounter
--- OUTSIDE RECORDS SUMMARY | 2022-03-06 07:03 | XMS_ITS | Encounter Summary ---
:1995 Author Organization [facility] Address [address] [place] [address] Care Team Providers Name Role Phone Jerry Patterson M.D. Primary Care Provider Encounter Details Date Type Department Care Team Description 12/03/2021 Clinical Communication Department of Kunal Osuna, Medicine in [place] M.D. [place] [address] [place], [place] [phone] Social History Tobacco Use Types Packs/Day Years [...] or relatives? How often do you attend mandaeism or advent More than 4 time s per year 06/21/2021 services? 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 [address] [place], [place] [address] (Hector martin) 04/29/2022 Office Visit Endocrinology Meryl Julio M .D. [address] [place], [place] [address] (Hector martin) documented as of this encounter Visit Diagnoses Not on filedocumented in this encounter Care Teams Structural Steel Detailer Relationship Specialty Start Date End Date Jerry Patterson M.D. PCP - General Family Medicine 05/06/21 [address] [facility] [place] [phone] documented as of this encounter
--- OUTSIDE RECORDS SUMMARY | 2022-03-06 07:03 | XMS_ITS | Encounter Summary ---
:1995 Author Organization [facility] Address [address] [place] [address] Care Team Providers Name Role Phone Jerry Patterson M.D. Primary Care Provider Reason for Referral Outpatient (Routine) - Authorized Specialty Diagnoses / Referred By Contact Referred To Contact Procedures Cardiovascular Diseases / Diagnoses Palpitations Jerry Patterson M.D. [facility] Cardiovascular Disease [address] [place] [phone] Referral ID Status Reason Start Date Expiration Date Visits V isits Requested Authorized [id number] Authorized 09/13/2021 09/13/2022 1 1 Encounter Details Date Type Department Care Team Description 09/13/2021 Orders Only Department of Family Jerry Patterson Palpit ations (Primary Medicine in [place] M.D. Dx) [place] [address] [place] [phone] Social History Tobacco Use Types Packs/Day [...] or relatives? How often do you attend jewish or denominational More than 4 time s per year 06/21/2021 services? Do you belong to any clubs or organizations Yes 06/21/2021 such as jewish groups, unions, fraternal or athletic groups, or [...] place to sleep or slept in a mcc (including now)? Education Answer Date Recorded What is the highest level of school Bachelor's degree (e.g., BA, AB, 06/21/2021 you have completed or the highest BS) degree you have received? Sex Assigned at Date Recorded Female 06/21/2021 12:52 PM FINGERPRINT CLERK documented as of this encounter Plan of Treatment Upcoming Encounters Date Type Specialty Care Team Description 04/22/2022 Appointment Laboratory Medicine Meryl Julio M.D. [address] [place] [address] (Hector martin) 04/29/2022 Office Visit Endocrinology Meryl Julio M .D. [facility] [place], [place] [address] (Hector martin) Scheduled Referrals Name Type Priority Associated Diagnoses Order S tommie Cardiovascular Disease Outpatient Routine Palpitations Expec cathy: - General cardiology Referral 022 consult (clinic) (Approximat e), Expires: 12/13/2022 documented as of this encounter Visit Diagnoses Diagnosis Palpitations - Primary documented in this encounter Care Teams Packing Shed Supervisor Relationship Specialty Start Date End Date Jerry Patterson M.D. PCP - General Family Medicine 05/06/21 [address] [place] [address] documented as of this encounter
--- OUTSIDE RECORDS SUMMARY | 2022-03-06 07:03 | XMS_ITS | Encounter Summary ---
:1995 Author Organization [facility] Address [address] [place] [address] Care Team Providers Name Role Phone Jerry Patterson M.D. Primary Care Provider Encounter Details Date Type Department Care Team Description 10/11/2021 Clinical Communication Department of Kunal Osuna, Medicine in [place] M.D. [place] [address] [place], [place] [phone] Social History Tobacco Use Types Packs/Day Years [...] or relatives? How often do you attend baptism or confucianist More than 4 time s per year 06/21/2021 services? Do you belong to any clubs or organizations Yes 06/21/2021 such as baptism groups, unions, fraternal or athletic groups, or [...] place to sleep or slept in a jail (including now)? Education Answer Date Recorded What is the highest level of school Bachelor's degree (e.g., BA, AB, 06/21/2021 you have completed or the highest BS) degree you have received? 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 [address] [place], [place] [address] (Hector martin) 04/29/2022 Office Visit Endocrinology Meryl Julio M .D. [address] [place], [place] [address] (Wo veronica) documented as of this encounter Visit Diagnoses Not on filedocumented in this encounter Care Teams Lottery Sales Clerk Relationship Specialty Start Date End Date Jerry Patterson M.D. PCP - General Family Medicine 05/06/21 [address] [place] [address] documented as of this encounter
--- OUTSIDE RECORDS SUMMARY | 2022-03-06 07:03 | XMS_ITS | Encounter Summary ---
:1995 Author Organization [facility] Address [address] [place] [address] Care Team Providers Name Role Phone Jerry Patterson M.D. Primary Care Provider Reason for Visit Reason Comments Hypothyroid + New endo consult Encounter Details Date Type Department Care Team Description 01/08/2022 Clinical Department of Meryl Julio Hypothyroid + Communication Endocrinology eliana Nicholson M.D. [place] [address] consult [address] [place] [phone] Social History Tobacco Use Types Packs/Day Years [...] or relatives? How often do you attend mu-ism or taoism More than 4 time s per year 06/21/2021 services? 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 - 01/09/2022 9:21 AM CDT TSH and Free T 4 faxed to [facility] Telephone Encounter - Nery Rodríguez R.N. - 01/09/2022 9:17 AM CDT Former pt of Dr. Parikh for hypothyroid is currently with [facility] 03/14/22. Has been following [facility]. Recent labs printed Needs TSH and Free T4 Telephone Encounter - Rachelle Mckeon - 01/08/2022 4:33 PM CDT Please review for labs. Fax to [facility] patient will do them on 01/20. Thank you. documented in this encounter Plan of Treatment Upcoming Encounters Date Type Specialty Care Team Description 04/22/2022 Appointment Laboratory Medicine Meryl Julio M.D. [address] [place], [place] [address] (Wo rk) 04/29/2022 Office Visit Endocrinology Meryl Julio M .D. [address] [place], [place] [address] (Wo rk) documented as of this encounter Visit Diagnoses Diagnosis Hypothyroidism Primary - Primary documented in this encounter Care Teams Guidance Services Coordinator Relationship Specialty Start Date End Date Jerry Patterson M.D. PCP - General Family Medicine 05/06/[address] [place] [phone] documented as of this encounter
--- OUTSIDE RECORDS SUMMARY | 2022-03-06 07:03 | XMS_ITS | Encounter Summary ---
:1995 Author Organization [facility] Address [address] [place] [address] Care Team Providers Name Role Phone Jerry Patterson M.D. Primary Care Provider Reason for Referral Outpatient (Routine) - Closed Specialty Diagnoses / Procedures Referred By Contact Refer red To Contact Diagnoses Palpitations Jerry Patterson M.D. [facility] Region Procedures ECG 12 Lead [address] [place] [phone] Referral ID Status Reason Start Date Expiration Date Visits Requ ested Visits Authorized [id number] Closed 09/05/2021 09/05/2022 1 1 Reason for Visit Outpatient (Routine) - Closed Specialty Diagnoses / Procedures Referred By Contact Refer red To Contact Diagnoses Palpitations Jerry Patterson M.D. [facility] Procedures ECG 12 Lead [address] [place] [phone] Referral ID Status Reason Start Date Expiration Date Visits Requ ested Visits Authorized [id number] Closed 09/05/2021 09/05/2022 1 1 Encounter Details Date Type Department Care Team Description 09/06/2021 Hospital Encounter Department of Laboratory Jerry Benton M.D. Palpitations Medicine in [place], [address] [facility] [place], [place] [address] [facility] [address] [place], [place] [phone] (Work) [phone] Social History Tobacco Use Types Packs/Day Years [...] or relatives? How often do you attend zoroastrian or voodoo More than 4 time s per year 06/21/2021 services? Do you belong to any clubs or organizations Yes 06/21/2021 such as zoroastrian groups, unions, fraternal or athletic groups, or [...] place to sleep or slept in a care home (including now)? Education Answer Date Recorded What is the highest level of school Bachelor's degree (e.g., BA, AB, 06/21/2021 you have completed or the highest BS) degree you have received? Sex Assigned at Date Recorded Female 06/21/2021 12:52 PM CHANGE CONTROL COORDINATOR documented as of this encounter Medications at [...] 04/22/2022 Appointment Laboratory Medicine Meryl Julio M.D. [address] [place] [address] (Hector martin) 04/29/2022 Office Visit Endocrinology Meryl Julio M .D. [address] [place], [place] [address] (Hector martin) documented as of this encounter Procedures Procedure Name Priority Date/Time Associated Diagnosis Comme nts ECG Routine 09/06/2021 11:01 AM Palpitations Results for this CDT procedure are i n the results section . documented in this encounter Results ECG 12 Lead (09/06/2021 11:01 AM CDT) P athologist Signature Ventricular Rate 87 BPM MUSE ECG/Min [place] Interval 166 ms MUSE QRSD Interval 82 ms MUSE QT Interval 364 ms MUSE QTC Interval 438 ms MUSE P [place] 37 degrees MUSE R [place] 33 degrees MUSE T Wave [place] 24 degrees MUSE Specimen Anatomical Collection Method Collection Time Receive d Time (Source) Location / / Volume Laterality 09/06/2021 11:01 09/06/2021 AM CDT 11:07 AM CDT Impressions MUSE - 09/06/2021 11:07 AM CDT Normal sinus rhythm Normal ECG When compared with ECG of 18-AUG-2013 13 :39, No significant change was found Reviewed by JENNIFER Floyd Narrative This result has an attachment that is no t available. Procedure Note Jet Nguyen M.D. - 09/06/2021Fo rmatting of this note might be different from the original. IMPRESSION: Normal sinus rhythm Normal ECG When compared with ECG of 18-AUG-2013 13 :39, No significant change was found Reviewed by EJNNIFER Floyd Jerry Patterson M.D. ECG ORDERABLES Performing Organization Address City/State/ZIP Code Phon e Number SALOMÓN LORENZA[place] NA documented in this encounter Visit Diagnoses Diagnosis Palpitations documented in this encounter Care Teams Distribution Center Assistant Relationship Specialty Start Date End Date Jerry Patterson M.D. PCP - General Family Medicine 05/06/21 [address] [place] [address] documented as of this encounter
--- OUTSIDE RECORDS SUMMARY | 2022-03-06 07:03 | XMS_ITS | Encounter Summary ---
:[address] [facility] Address [address] [place] [address] Care Team Providers Name Role Phone Jerry Patterson M.D. Primary Care Provider Encounter Details Date Type Department Care Team Description 01/15/2022 Orders Only Department of Sleep Allison Collins Re stless Leg Syndrome Medicine in [place] (Primary [place]x) [address], [place] [phone] Social History Tobacco Use Types Packs/Day Years [...] How often do you attend faith or jain More than 4 time s per year [...] place to sleep or slept in a intermediate (including now)? Education Answer Date Recorded What is the highest level of school Bachelor's degree (e.g., BA, AB, 06/21/2021 you have completed or the highest BS) degree you have received? Sex Assigned at Date Recorded Female 06/21/2021 12:52 PM STOCK WETTER documented as of this encounter Plan of Treatment Upcoming Encounters Date Type Specialty Care Team Description 04/22/2022 Appointment Laboratory Medicine Meryl Julio M.D. [address] [place], [place] [address] (Hector martin) 04/29/2022 Office Visit Endocrinology Meryl Julio M .D. [address] [place], [place] [address] (Hector martin) documented as of this encounter Visit Diagnoses Diagnosis Restless Leg Syndrome - Primary documented in this encounter Care Teams Buckle Sorter Relationship Specialty Start Date End Date Jerry Patterson M.D. PCP - General Family Medicine 05/06/21 [address] [place] [address] documented as of this encounter
--- OUTSIDE RECORDS SUMMARY | 2022-03-06 07:03 | XMS_ITS | Encounter Summary ---
:[address] [facility] Address [address] [place] [address] Care Team Providers Name Role Phone Jerry Patterson M.D. Primary Care Provider Reason for Referral Outpatient (Routine) - Authorized Specialty Diagnoses / Procedures Referred By Contact Refer red To Contact Diagnoses Palpitations Jerry Patterson M.D. [facility] Procedures ECG Heart rhythm monitor (Holter) [address] [place] [phone] Referral ID Status Reason Start Date Expiration Date Visits V isits Requested Authorized [id number] Authorized 09/05/2021 09/05/2022 1 1 Reason for Visit Outpatient (Routine) - Authorized Specialty Diagnoses / Procedures Referred By Contact Refer red To Contact Diagnoses Palpitations Jerry Patterson M.D. [facility] Procedures ECG Heart rhythm monitor (Holter) [address] [place] [phone] Referral ID Status Reason Start Date Expiration Date Visits V isits Requested Authorized [id number] Authorized 09/05/2021 09/05/2022 1 1 Encounter Details Date Type Department Care Team Description 09/06/2021 Hospital Encounter Department of Jerry Patterson Palpita tions Cardiovascular Diseases in M.D. Ernesto Collado a [address] [place] [phone] Social History Tobacco Use Types Packs/Day Years [...] or relatives? How often do you attend yazdanism or adventism More than 4 time s per year 06/21/2021 services? Do you belong to any clubs or organizations Yes 06/21/2021 such as yazdanism groups, unions, fraternal or athletic groups, or [...] place to sleep or slept in a chcf (including now)? Education Answer Date Recorded What is the highest level of school Bachelor's degree (e.g., BA, AB, 06/21/2021 you have completed or the highest BS) degree you have received? 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 [address] [place] [address] (Hector martin) 04/29/2022 Office Visit Endocrinology Meryl Julio M .D. [address] [place] [address] (Hector martin) documented as of this encounter Procedures Procedure Name Priority Date/Time Associated Diagnosis Comme nts HOLTER MONITOR - IN Routine 09/08/2021 2:07 PM Palpitations Re sults for this CLINIC MACHINE FORMER CDT procedure are in the results section. documented in this encounter Results HOLTER MONITOR - IN CLINIC MACHINE FORMER (09/08/2021 2:07 PM CDT) [facility] gist Method Time Signature Min Heart Rate 58 bpm INFOBIONIC MOME Max Heart Rate 141 bpm INFOBIONIC MOME Mean Heart 91 bpm INFOBIONIC Rate MOME VE Total Beats 97 count INFOBIONIC MOME VE Percent less than percent INFOBIONIC Beats 1 MOME SVE Total 0 count INFOBIONIC Beats MOME SVE Percent less than percent INFOBIONIC Beats 1 MOME AF Count 0 count INFOBIONIC MOME AF Duration 0 duration INFOBIONIC MOME AF [place] 0 percent INFOBIONIC MOME Symptom Count 52 count INFOBIONIC MOME Specimen (Source) Anatomical Collection Method Collection Time Re ceived Time Location / / Volume Laterality 09/06/2021 11:13 AM CDT Narrative INFOBIONIC MOME - 09/13/2021 3:20 PM CDT [place] 1. The basic rhythm was sinus with sinus arrhythmia. The total analyzed time was 1d 23h 54m. The heart rate varied from 58 to 141 bpm. The average HR was 91 bpm. 2. Premature ventricular complexes were noted singly. There were 97 PVCs recorded with a PVC burden of less than 1%. 3. No premature supraventricular complex es were noted. 4. A total of 52 symptomatic events were noted, which included palpitations. The heart rate varied from 82 to 126 bpm. Single PVCs were present. Journeyman Level Acoustic Analyst: Nancy Sheridan/Rosy Basurto Procedure Note Loki Roman M.D., Ph.D. - 2 [place] 1. The basic rhythm was sinus with sinus arrhythmia. The total analyzed time was 1d 23h 54m. The heart rate varied from 58 to 141 bpm. The average HR was 91 bpm. 2. Premature ventricular complexes were noted singly. There were 97 PVCs recorded with a PVC burden of less than 1%. 3. No premature supraventricular complex es were noted. 4. A total of 52 symptomatic events were noted, which included palpitations. The heart rate varied from 82 to 126 bpm. Single PVCs were present. Journeyman Level Acoustic Analyst: Danial Sheridan Lyn ann Jerry Patterson M.D. CV CARDIAC SERVICES PROCEDUR ES Performing Organization Address City/State/ZIP Code Phon e Number INFOBIONIC MOME INFOBIONIC M[place] NA documented in this encounter Visit Diagnoses Diagnosis Palpitations documented in this encounter Care Teams Emergency Management Consultant Relationship Specialty Start Date End Date Jerry Patterson M.D. PCP - General Family Medicine 05/06/21 [address] [place] [phone] documented as of this encounter
--- OUTSIDE RECORDS SUMMARY | 2022-03-06 07:03 | XMS_ITS | Encounter Summary ---
:1995 Author Organization [facility] Address [address] [place] [address] Care Team Providers Name Role Phone Jerry Patterson M.D. Primary Care Provider Reason for Referral Outpatient (Routine) - Closed Specialty Diagnoses / Procedures Referred By Contact Refer red To Contact Endocrinology Diagnoses Hypothyroidism Primary Encounter For Supervision Of Normal Unspecified Trimester (HCC) Rhett Zazueta M.D. [address] [phone] Referral ID Status Reason Start Date Expiration Date Visits Requ ested Visits Authorized [id number] Closed 12/13/2021 12/13/2022 1 1 Encounter Details Date Type Department Care Team Description 12/13/2021 [facility] [place], Hypothyroidism Primary (Prim nancy Dx); [address] [facility] Rhett Steward M.D. Encounter For Supervision Of Normal Preg herman Unspecified Trimester (HCC) [place] [address] [place] [address] [place] [address] Social History Tobacco Use Types Packs/Day Years [...] or relatives? How often do you attend religion or sikh More than 4 time s per year 06/21/2021 services? 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 [address] [place] [address] (Hector martin) 04/29/2022 Office Visit Endocrinology Meryl Julio M .D. [address] [place] [address] (Wo rk) Scheduled Referrals Name Type Priority Associated Diagnoses Order S [facility] Endocrinology Outpatient Routine Hypothyroidism P rimary Expected: Referral Referral Encounter For 12/13/2021 Supervision Of Normal (Appro ximate), Unspecified s: Trimester (HCC) 03/15/2023 documented as of this encounter Visit Diagnoses Diagnosis Hypothyroidism Primary - Primary Encounter For Supervision Of Normal Preg herman Unspecified Trimester (HCC) documented in this encounter Care Teams Industrial Service Technician Relationship Specialty Start Date End Date Jerry Patterson M.D. PCP - General Family Medicine 05/06/21 [address] [place] [phone] documented as of this encounter
--- OUTSIDE RECORDS SUMMARY | 2022-03-06 07:04 | XMS_ITS | Encounter Summary ---
:1995 Author Organization [facility] Address [address] [place] [address] Care Team Providers Name Role Phone Jerry Patterson M.D. Primary Care Provider Reason for Visit Reason Comments Follow-up Review MRI results Outpatient (Routine) - Closed Specialty Diagnoses / Procedures Referred By Contact Refer red To Contact Orthopedic Surgery Diagnoses Lanre Tejeda D.O. [address] [phone] Referral ID Status Reason Start Date Expiration Date Visits Requ ested Visits Authorized [id number] Closed 07/04/2021 07/04/2022 1 1 Encounter Details Date Type Department Care Team Description 07/22/2021 Office Visit Department of Lanre Tejeda, Pain Knee Left Orthopedic Surgery in D.OSebastian (Primary Dx) [address] [phone] Social History Tobacco Use Types Packs/Day Years [...] or relatives? How often do you attend yarsanism or yarsani More than 4 time s per year 06/21/2021 services? 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 - 07/22/2021 3:45 PM CST SUBJECTIVE Pain reported: Site 1 Pain Score: 2, Pain Location: Knee, Pain Orientation: Left, (07/22/21 1539 : Junie Zheng) CHIEF COMPLAINT / REASON FOR VISIT Felecia Cardenas is a 25 y.o. female who presents for follow-up of Follow-up of the Left Knee (Review MRI results ) and is under the care of Jerry Patterson M.D.. HISTORY OF PRESENT ILLNESS Patient is 25-year-old female presenting today for re-evaluation of her left knee and review of MRI.Please refer to previous note for further history. No other new concerns today. Her surgical history is notable for: Past Surgical History: Procedure Laterality Date ??? APPENDECTOMY N/A Appendectomy ??? ARTHROSCOPY KNEE Right 04/2015 ??? CHOLECYSTECTOMY N/A Cholecystectomy ??? FUNCTIONAL ENDOSCOPY SINUS SURGERY WITH NAVIGATION Right 10/08/2018 Procedure: FUNCTIONAL ENDOSCOPY SINUS SURGERY WITH NAVIGATION Septoplasty and Bilateral turbinate reduction; Surgeon: Nisa Kahn M.D.; Location: [facility] OR ??? OTHER CONVERTED SHX (SEE COMMENT) N/A 03/21/2011 >1. ERCP. 2. Needle knife and completion biliary sphincterotomy. ??? OTHER CONVERTED SHX (SEE COMMENT) N/A 03/11/2010 >EGD with small bowel, gastric, and esophageal biopsies. ??? TOTAL KNEE ARTHROPLASTY Left 09/03/2011 partial total knee The following portions of the patient's history were reviewed and updated as appropriate: allergies,current medications, family history, medical history, social history, surgical history and problem list. REVIEW OF SYSTEMS All other systems reviewed and are negative. OBJECTIVE PHYSICAL EXAM Ortho Exam GENERAL: The patient is alert, oriented, and pleasant to interact with NEURO: sensation intact to light touch in bilateral low erextremities SKIN: no significant abrasions or lesions over the area examined. Well-healed medial incision to theknee. VESSELS: palpable pedal pulse MUSCULOSKELETAL: LEFT Knee Examination: Gait: Normal Alignment: Neutral Effusion: None ROM: 0 to 130 mild pain vs. 0 to 130 on opposite side Crepitus: Patellofemoral TTP: Medial Joint Line, Medial Patella, Lateral Patella, Medial Femoral Condyle Hyperflexion: No Pain Keily's: Negative Anterior Drawer: 1A (Normal) Posterior Drawer: 1A (Normal) Pearl: 1A (Normal) Varus Stability at 0 degrees: 1A (Normal) ; at 30 degrees: 1A (Normal) Valgus Stability at 0 degrees 1A (Normal): ; at 30 degrees:1A (Normal) Lateral Patellar [place]: 2 quadrants Medial Patellar [place]: 1.5 quadrants Patellar Apprehension: pain, but no apprehension Quadriceps: 5/5, no atrophy IMAGING MRI left knee: IMPRESSION: 1. Status post prior MPFL for reconstruction, without evidence of high-grade graft injury. 2. Intact cruciate and collateral ligaments. No meniscus tear. 3. Question subtle cartilage fissuring in the lateral patellar facet. No other focal hyaline cartilage abnormality. ASSESSMENT / PLAN 1. Left knee pain status post remote MPFL reconstruction Today we had a lengthy discussion with the patient regarding her knee. We reviewed MRI findings. Fortunately no acute process noted. MPFL reconstruction and graft. To be maintained. Knee is stable on my exam with only mild reproduction noted with testing. She does continue to have tenderness over the i nsertion points however this seems bit more comfortable when compared to prior visit. 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 We will proceed fairly conservatively at this point. No surgical indication. She will continue follow-up with occupational medicine for work restrictions, however likely stable toreturn as tolerated. She will now follow up with us on an as-needed basis. Symptoms persist she may return in the future for discussion of possible intra-articular injection. She voiced understanding and agreement with this plan. 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 [address] [place], [place] [address] (Hector martin) 04/29/2022 Office Visit Endocrinology Meryl Julio M .D. [address] [place], [place] [address] (Hector martin) documented as of this encounter Visit Diagnoses Diagnosis Pain Knee Left - Primary documented in this encounter Care Teams Wireless Store Manager Relationship Specialty Start Date End Date Jerry Patterson M.D. PCP - General Family Medicine 05/06/21 [address] [place] [phone] documented as of this encounter
--- OUTSIDE RECORDS SUMMARY | 2022-03-06 07:04 | XMS_ITS | Encounter Summary ---
:1995 Author Organization [facility] Address [address] [place] [address] Care Team Providers Name Role Phone Jerry Patterson M.D. Primary Care Provider Reason for Visit Reason Comments Other Form and exam for employment Appointment Request (Routine) - Closed Specialty Diagnoses / Procedures Referred By Contact Refer red To Contact Family Medicine Referral ID Status Reason Start Date Expiration Date Visits Requ ested Visits Authorized [id number] Closed 08/13/2021 08/13/2022 1 1 Encounter Details Date Type Department Care Team Description 08/14/2021 Office Visit Department of Family Jerry Patterson Well A dult Examination Normal (Primary Dx); Medicine in Cristina Polk M.D. 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 - 08/14/2021 11:30 AM CDT SUBJECTIVE CHIEF COMPLAINT/REASON FOR VISIT Annual physical examination. HISTORY OF PRESENT ILLNESS Felecia Cardenas is a 25 y.o. female who presents to the clinic today for her annual physical examination. She reports that she is currently 10 week . She is a I0X3-5-5-5. She follows up with [facility] OBGYN service. She reports that her labs were unremarkable. She has morningsickness, breast tenderness, and intermittent pelvic cramping. She denies vaginal spotting or bleeding. She has history of Deric's thyroiditis. Previously, she saw Dr. Parikh for managing medical condition and PCOS. She is currently taking levothyroxine 112 mcg once daily. She also takes metformin 1000 mg twice daily. Since being , she had discontinued the spironolactone. Her TSH level has been stable. She also has history of chronic migraine headache. She is still taking propanolol. However, she was recommended to discontinue Relpax given she is . She denies worsening of her migraine headache. She reports that she was ill with upper respiratory symptom in June 2021. She was tested negative for COVID. She reports some improvement since then. She denies changes with her vision or hearing. She wears glasses. She is due for her eyes examination. She denies changes with her bowel movement recently. Reports of loose bowel movement at times but denies constipation, bloody stool or black tarry stool. She also denies dysuria, urgency, frequency, gross blood in the urine, vaginal discharge or bleeding. She denies breast lumps, nipple discharge or bleeding. She has history of obstructive sleep apnea. She is on CPAP. She denies nonhealing open sores or changes with moles. She denies feeling depressed or anxious. CURRENT MEDICATIONS Current Outpatient Medications Medication Sig ??? levothyroxine (SYNTHROID, LEVOTHROID) 112 mcg tablet Take 1 tablet (112 mcg total) by mouth daily. Take 2 extra tabs/week during ??? metFORMIN XR (GLUCOPHAGE-XR) 500 mg 24 hr tablet Take 2 tablets (1,000 mg total) by mouth 2 (two) times a day. ??? propranoloL (INDERAL) 80 mg tablet Take 80 mg by mouth every 12 (twelve) hours. ??? eletriptan (RELPAX) 40 mg tablet Treat with eletriptan (Relpax) 40 mg at onset of severe headache. May repeat one time after 2 hours if needed. Limit the use to no more than 9 days a month (twice aweek). (Patient not taking: Reported on 08/14/2021) ??? spironolactone (ALDACTONE) 50 mg tablet Take 1 tablet (50 mg total) by mouth 2 (two) times a day. (Patient not taking: Reported on 08/14/2021) ??? TENS unit and electrodes (Cefaly) combo pack Acute treatment is for 60 minutes. Preventive treatment is 20 min per day. (Patient not taking: Reported on 08/14/2021) ALLERGIES/ CONTRAINDICATIONS Allergies Allergen Reactions ??? Clindamycin Anaphylaxis ??? Gentamicin Anaphylaxis ??? Ciprofloxacin Anaphylaxis REVIEW OF SYSTEMS Reviewed as mentioned in the HPI, the rest of the review of systems are negative. MEDICAL HISTORY Deric's thyroiditis. Polycystic ovarian syndrome. Chronic migraine headache. Allergic rhinitis. Chronic maxillary sinusitis. Obstructive sleep apnea. Obesity with BMI of 34. SURGICAL HISTORY Septoplasty. Bilateral inferior turbinate reduction and outfracture. Right maxillary antrostomy. Left ACL and meniscus repair. Right partial meniscus repair. Cholecystectomy. Stent placement to biliary tree. Endometriosis ablation. GYNECOLOGY HISTORY She is a G1, P0. She reports that her due date will be in February 2022. FAMILY HISTORY Mom has history of depression, anxiety, migraine headache and irritable bowel syndrome. Dad is healthy. She denies family history of colon cancer, breast cancer, cervical cancer, ovarian cancer. SOCIAL HISTORY She is and lives with her in [place]. 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 She denies smoking cigarettes or drinking alcohol regularly. HEALTH MAINTENANCE She is up-to-date on Tdap immunization. She declines influenza and COVID immunizations. She reports that she had Pap smear on 08/12/2021 at [facility]. She is to repeat in 3 years. She is [id number] HIV and hepatitis C screening, that was done through [facility]. OBJECTIVE VITAL SIGNS BP 123/71 Pulse 103 Temp 36.7 ??C Resp 20 Ht 169 cm Wt 99.8 kg BMI 34.94 kg/m?? PHYSICAL EXAMINATION General: Alert and oriented x3. Not in acute distress. Psychiatry: Mood is not depressed or anxious. Affect is pleasant. Mood congruent. She denies suicidal or homicidal ideation. Thought content is normal. Insight and judgment are good. Speech is fluent. HEENT: Normocephalic, atraumatic. Eyes: Pupils equal, round, and reactive to light and accommodation. Extraocular muscles intact bilaterally. Ears: Tympanic membranes intact bilaterally. No erythema. No bulging. No effusion bilaterally, no drainage. Nose: Patent, no drainage. No epistaxis. Pharynx: Membrane mucosa is moist. No hyperemia. No exudates. Neck: Supple. No cervical lymphadenopathy. No thyromegaly. Cardiovascular: S1, S2. Regular rate and rhythm. No murmur or gallops. No JV distention. No bruit. Lungs: Clear breath sounds. No crackles or expiratory wheezes. Breasts: Deferred. Abdomen: Soft, nontender. Bowel sounds in all 4 quadrants. : Deferred. Musculoskeletal: She is able to do forward flexion, toe walking, heel walking, and squatting. No edema on bilateral lower extremities. Neuro Examination: No focal neurological deficit. Coordination test is intact. Romberg test is negative. Deep tendon reflexes 2/4 on bilateral upper lower extremities. Gait is normal. Skin: No rash. DIAGNOSTICS Lab Results Component Value Date TSH 2.1 07/11/2021 ASSESSMENT / PLAN 1. Annual physical examination. She was encouraged to continue lifestyle changes. She is up-to-date on Tdap immunization. She declines influenza and COVID immunizations. She reports that she had Pap smear on 08/12/2021 at [facility]. She is to repeat in 3 years. She is up-to-date on HIV and hepatitis C screening, that was done through [facility]. She brought documentation to clear her for her new job. It was completed appropriately. 2. History of Deric's thyroiditis. She will continue taking levothyroxine as directed. 3. History of polycystic ovarian syndrome. She is currently taking metformin. 4. Chronic migraine headache. She will continue taking propanolol. She was recommended by her OBGYN to avoid taking Relpax. 5. Obstructive sleep apnea. She will continue using CPAP. 6. . She will follow-up with OBGYN service at [facility]. documented in this encounter Plan of Treatment Upcoming Encounters Date Type Specialty Care Team Description 04/22/2022 Appointment Laboratory Medicine Meryl Julio M.D. [address] [place], [place] [address] (Wo rk) 04/29/2022 Office Visit Endocrinology Meryl Julio M .D. [address] [place], [place] [address] (Wo rk) documented as of this encounter Visit Diagnoses Diagnosis Well Adult Examination Normal - Primary Thyroiditis Deric's Polycystic Ovary Syndrome Migraine Headache Obstructive Sleep Apnea Adult documented in this encounter Care Teams Merchant Banker Relationship Specialty Start Date End Date Jerry Patterson M.D. PCP - General Family Medicine 05/06/[address] [place] [phone] documented as of this encounter
--- OUTSIDE RECORDS SUMMARY | 2022-03-06 07:04 | XMS_ITS | Encounter Summary ---
:1995 Author Organization [facility] Address [address] [place] [address] Care Team Providers Name Role Phone Jerry Patterson M.D. Primary Care Provider Encounter Details Date Type Department Care Team Description 09/05/2021 Hospital Encounter Department of Laboratory Jerry Benton M.D. 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 [address] [place], [place] [address] (Wo rk) 04/29/2022 Office Visit Endocrinology Meryl Julio M .D. [address] [place], [place] [address] (Hector rk) documented as of this encounter Procedures Procedure Name Priority Date/Time Associated Diagnosis Comme nts PHOSPHORUS Routine 09/05/2021 10:28 Palpitations Results for this (INORGANIC), S AM CDT procedure are in the results section. MAGNESIUM, S Routine 09/05/2021 10:28 Palpitations Results for this AM CDT procedure are i n the results section. BASIC METABOLIC Routine 09/05/2021 10:28 Palpitations Results for this PANEL, S/P AM CDT procedure are i n the results section. documented in this encounter Results (ABNORMAL) Basic Metabolic Panel (09/05/2021 10:28 AM CDT) Analysis Performed At Patho logist Time Signature Potassium, P 4.3 3.6 - 5.2 09/05/2021 [facility] mmol/L 5:29 PM CDT Sodium, P 137 135 - 145 09/05/2021 [facility] mmol/L 5:29 PM CDT Chloride, P 104 98 - 107 09/05/2021 [facility] mmol/L 5:29 PM CDT Bicarbonate, P 21 (L) 22 - 29 09/05/2021 [facility] mmol/L 5:29 PM CDT Anion Gap, P 12 7 - 15 09/05/2021 [facility] 5:29 PM CDT BUN (Blood Urea 6 6 - 21 09/05/2021 [facility] Nitrogen), P mg/dL 5:29 PM CDT Creatinine 0.49 (L) 0.59 - 09/05/2021 [facility] 1.04 mg/dL 5:29 PM CDT eGFR-Black/Afri >90 >=60 09/05/[address] [place] mL/min/BSA 5:29 PM CDT Comment: ----ADDITIONAL INFORMATION---- Estimated GFR calculated using the 2009 CKD_EPI creatinine equation. eGFR Non-Black/ >90 >=60 mL/min/BSA 09/05/2021 5:29 PM CDT [facility] Comment: ----ADDITIONAL INFORMATION---- Estimated GFR calculated using the 2009 CKD_EPI creatinine equation. Calcium, Total, P 9.5 8.6 - 10.0 mg/dL 09/05/2021 5:29 PM CDT [facility] Glucose, P 88 70 - 140 mg/dL 09/05/2021 5:29 PM CDT M [facility] Specimen Anatomical Collection Method Collection Time Receive d Time (Source) Location / / Volume Laterality Blood (Blood, 09/05/2021 10:28 09/05/2021 4:55 Venous) AM CDT PM CDT Jerry Patterson M.D. LAB BLOOD ADD-ON Performing Organization Address City/[facility] Phon e Number [facility]- [address] [place] [phone] [place] [address] Phosphorus Inorganic (09/05/2021 10:28 AM CDT) P athologist Signature Phosphorus 4.3 2.5 - 4.5 09/05/2021 [facility] (Inorganic), P mg/dL 5:29 PM CDT Specimen Anatomical Collection Method Collection Time Receive d Time (Source) Location / / Volume Laterality Blood (Blood, 09/05/2021 10:28 09/05/2021 4:55 Venous) AM CDT PM CDT Jerry Patterson M.D. LAB BLOOD ADD-ON Performing Organization Address City/State/[facility] Phon e Number [facility]- [address] [place] [id number] [place] [address] [address] Magnesium (09/05/2021 10:28 AM CDT) P athologist Signature Magnesium, P 1.9 1.7 - 2.3 09/05/2021 [facility] mg/dL 5:29 PM CDT Specimen Anatomical Collection Method Collection Time Receive d Time (Source) Location / / Volume Laterality Blood (Blood, 09/05/2021 10:28 09/05/2021 4:55 Venous) AM CDT PM CDT Jerry Patterson M.D. LAB BLOOD ADD-ON Performing Organization Address City/State/ZIP Code Phon e Number [facility]- [address] [place] [phone] [place] [address] System in [place] [address] [place] [address] documented in this encounter Visit Diagnoses Diagnosis Palpitations documented in this encounter Care Teams Ink Technician Relationship Specialty Start Date End Date Jerry Patterson M.D. PCP - General Family Medicine 05/06/21 [address] [place] [phone] documented as of this encounter
--- OUTSIDE RECORDS SUMMARY | 2022-03-06 07:04 | XMS_ITS | Encounter Summary ---
:1995 Author Organization [facility] Address [address] [place] [address] Care Team Providers Name Role Phone Jerry Patterson M.D. Primary Care Provider Reason for Visit Physical Therapy (Routine) - Authorized Specialty Diagnoses / Procedures Referred By Contact Refer red To Contact Diagnoses History Of Falling Pain Back Thoracic Pain Knee Left Jordan Chang III, [facility] Procedures PT Ongoing treatment Willy, M.P.H. [address] [place] [address] Referral ID Status Reason Start Date Expiration Date Visits V isits Requested Authorized [id number] Authorized 04/22/2021 05/24/2022 99 7 Encounter Details Date Type Department Care Team Description 07/19/2021 Clinical Support Department of Physical Flaquito Chang III, M.D., M.P.H. [address] [place] [phone] History Of Falling; Medicine and Yulia Woodward, AmyTDamian. [address] [place] [phone] Pain Back Thoracic; Rehabilitation in Pain Knee Left [place], [place] [address] [place] [phone] Social History Tobacco Use Types Packs/Day Years [...] or relatives? How often do you attend temple or latter day More than 4 time s per year 06/21/2021 services? Do you belong to any clubs or organizations Yes 06/21/2021 such as temple groups, unions, fraternal or athletic groups, or [...] at Date Recorded Female 06/21/2021 12:52 PM CARDIOLOGY COORDINATOR documented as of this encounter Progress Notes Yulia Woodward, P.T.A. - 07/19/2021 1:30 PM CST [facility] Physical Therapy Outpatient Treatment Note Patient Name: Felecia Cardenas Referring Provider: Jordan Chang III, M.D., M.P.H. [address] [place] [address] Rehab Diagnosis: 1. History Of Falling 2. Pain Back Thoracic 3. 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 Recently found out that they are expecting a baby. SUBJECTIVE: Patient reports she felt that the kinesiotape surrounding her left knee and supporting up her ITB were beneficial. Continues to report left knee pain at 08/01. Still feels neck and shoulder are improving. No new concerns or issues, but continued clicking to left knee, especially with squatting and flexion> extension exercises which she feels is occurring more quickly with movements. Pain: Location: Rt side neck and shoulder, Improving Lt knee, OBJECTIVE: Contact monitoring: Therapist was wearing the following PPE throughout entire session: surgical mask Patient was wearing a mask during therapy session: yes Interventions/treatment provided 07/19/2021: - Discussion on current status with active warm up on NuStep - Therapeutic exercises NuStep L5 - legs only- 5 minutes Tilt board gastroc stretching - 1 minute Tiltboard AP and lateral balance - 1 minute each BOSU flat side static balance with blue medicine ball toss<>catch x15 BOSU round side step ups L x10 with slight balance holds CATALINO foam full tandem stance - 1 minute each - 0 UE A 12 inch foam roller taps x15 - 0 UE A Hip abduction L - standing/side lying SLR L x20 Bridging x20 -Kinesiotaping to left knee to assist with support with bending/squatting and avoid clicking I strip around knee/patella I' along left ITB -Manual therapy Soft tissue mobilizations to left knee, quadriceps, and ITB with patient in sitting and in supine positions Patella stretching Home exercise program: 05/16/21: HEP2GO: Gastroc, hamstring, and hip flexor stretching on stairs. Green band: horizontal rows, shoulder extension, and horizontal abduction against wall. Education in scapular/shoulder setting. Education in use of massage roller for self massage/stretching to left hamstring, ITB, quadriceps, and calf. 04/22/2021: SLR 10 reps 2 sets - HOLD Hip abduction sidelying 10 reps 2 sets AA SNAG 2 reps ?? 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 Focus today on balance and stability exercises. Performed more balance and stability exercises today to improve support and stabilization to left knee without activating clicking w ith specific knee motions. Patient able to complete all therapeutic exercises without clicking or pain today. Encouraged patient to continue with balance, strengthening, and stability exercises, but toavoid motions of pain/clicking as much as possible. Continued use of Kinesiotape today to assist with support of knee and ITB with activities. Noted decreased soft tissue restrictions to left knee, quadriceps, and ITB with manual therapy today. Patient reported good decrease in pain and improved mobility following PT session. Patient to see Dr. Tejeda on 07/22/21, Dr. Chang on 07/24/21, and than follow up with Jimbo Gallegos PT on 07/29/21 to discuss her plan of care. Patient response to treatment: good PLAN: Frequency/Duration: 2/wk x 8 wks Plan of Care End Date: PT Next Certification Date: 08/01/21 Plan for Next Session:Lt Knee stabilization exercises Time Spent with Patient Therapeutic Exercise (min): 20 min Neuromuscular Re-Education (min): 15 min Manual Therapy (min): 12 min Time Calculation Total Timed Units (min): 47 min Total Treatment Time (min): 47 min Electronically signed by: Yulia Woodward P.T.A. 07/19/21 2:57 PM CARDIOLOGY COORDINATOR Department of Physical Medicine and Rehabilitation in [place], [place] [address] [facility] [address] Dept: [phone] IOLOGY COORDINATOR documented in this encounter Plan of Treatment Upcoming Encounters Date Type Specialty Care Team Description 04/22/2022 Appointment Laboratory Medicine Meryl Julio M.D. [address] [place] [address] (Wo rk) 04/29/2022 Office Visit Endocrinology Meryl Julio M .D. [address] [place] [address] (Wo rk) documented as of this encounter Visit Diagnoses Diagnosis History Of Falling Pain Back Thoracic Pain Knee Left documented in this encounter Care Teams Preboarder Relationship Specialty Start Date End Date Jerry Patterson M.D. PCP - General Family Medicine 05/06/21 [facility] [address] [place] [phone] documented as of this encounter
--- OUTSIDE RECORDS SUMMARY | 2022-03-06 07:04 | XMS_ITS | Encounter Summary ---
:1995 Author Organization [facility] Address [address] [place] [address] Care Team Providers Name Role Phone Jerry Patterson M.D. Primary Care Provider Reason for Referral Outpatient (Routine) - Closed Specialty Diagnoses / Procedures Referred By Contact Refer red To Contact Orthopedic Surgery Diagnoses Lanre Tejeda D.O. [facility] Region [address] [place] [address] Referral ID Status Reason Start Date Expiration Date Visits Requ ested Visits Authorized [id number] Closed 07/04/2021 07/04/2022 1 1 R ENGINEER MRI/CAT/PET Scan (Routine) - Closed Specialty Diagnoses / Procedures Referred By Contact Refer red To Contact Radiology Diagnoses Arthroscopy Knee Status Post Lanre Tejeda D.O. [facility] Region Procedures MR Knee Left without IV Contrast HI MRI LWR EXT JOINT WO CNTRST [address] [place] [address] Referral ID Status Reason Start Date Expiration Date Visits Requ ested Visits Authorized [id number] Closed 07/04/2021 07/04/2022 1 1 utpatient (Routine) - Closed Specialty Diagnoses / Procedures Referred By Contact Refer red To Contact Diagnoses Pain Knee Left Lanre Tejeda D.O. [facility] Procedures DX Knee Left 4+ Views [address] [place] [address] Referral ID Status Reason Start Date Expiration Date Visits Requ ested Visits Authorized [id number] Closed 06/30/2021 06/30/2022 1 1 R ENGINEER Reason for Visit Reason Comments Pain Outpatient (Routine) - Closed Specialty Diagnoses / Procedures Referred By Contact Refer red To Contact Orthopedic Surgery Diagnoses Pain Knee Left History Of Falling Arthroscopy Knee Status Post Jordan Chang III, [facility] M.D., M.P.H. [address] [place] [address] Referral ID Status Reason Start Date Expiration Date Visits Requ ested Visits Authorized [id number] Closed 06/14/2021 06/14/2022 1 1 Encounter Details Date Type Department Care Team Description 07/04/2021 Comprehensive Visit Department of Lanre Tejeda K nee Left (Primary Dx); Orthopedic Surgery Eugenia Steward History Of Falling; in [address] Arthroscopy Knee Status Post [place] [id number] [facility] [address] [place], [place] [phone] (Work) [phone] Social History Tobacco Use Types Packs/Day Years [...] or relatives? How often do you attend synagogue or zoroastrian More than 4 time s per year 06/21/2021 services? Do you belong to any clubs or organizations Yes 06/21/2021 such as synagogue groups, unions, fraternal or athletic groups, or [...] at Date Recorded Female 06/21/2021 12:52 PM POWER ENGINEER documented as of this encounter Last Filed Vital Signs Vital Sign Reading Time Taken Comments Blood Pressure - - Pulse - - Temperature 36.3 ??C (97.3 ??F) 07/04/2021 2:15 PM POWER ENGINEER Respiratory Rate - - Oxygen Saturation - - Inhaled Oxygen Concentration - - Weight 97.9 kg (215 lb 13.3 oz) 07/04/2021 2:15 PM POWER ENGINEER Height 170.2 cm (5' 7.01) 07/04/2021 2:15 PM POWER ENGINEER Body Mass Index 33.8 07/04/2021 2:15 PM POWER ENGINEER documented in this encounter Consult Notes Lanre Tejeda D.O. - 07/04/2021 2:30 PM CST REFERRING PROVIDER Jordan Chang III, M.D., M.P.H. [address] [place] [phone] CHIEF COMPLAINT Left knee pain HISTORY OF PRESENT ILLNESS Felecia Cardenas is a 25 y.o. female who presents today for evaluation of her left knee. Patient states that she injured it while at work in February. 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 This caused her left knee to hit the edge of the bed quite forcefully. Unfortunately symptoms have persisted over this time for a. Pain is achy at rest but made worse with activity. She does describe occasional giving out sensation. She has underwent physical therapy with mild relief. Also using Tylenol. Patient does have history of prior left knee MPFL reconstruction. This was performed at [facility] in September of 2012. She initially had some issues with range of motion, but believes she shortly recovered and had no problems until recently. Also has history of more recent right knee MPFL reconstruction, from which she recovered quite easily. REVIEW OF SYSTEMS Review of systems was performed and, outside that mentioned in the HPI, it was negative for symptomology related to the integumentary, hematologic, immunologic, allergic, neurologic, cardiovascular, respiratory, GI or systems. 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 APPENDECTOMY N/A Appendectomy ??? ARTHROSCOPY KNEE Right 04/2015 ??? CHOLECYSTECTOMY N/A Cholecystectomy ??? FUNCTIONAL ENDOSCOPY SINUS SURGERY WITH NAVIGATION Right 10/08/2018 Procedure: FUNCTIONAL ENDOSCOPY SINUS SURGERY WITH NAVIGATION Septoplasty and Bilateral turbinate reduction; Surgeon: Nisa Kahn M.D.; Location: [facility] OR ??? OTHER CONVERTED SHX (SEE COMMENT) N/A 03/21/2011 >1. ERCP. 2. Needle knife and completion biliary sphincterotomy. ??? OTHER CONVERTED SHX (SEE COMMENT) N/A 03/11/2010 >EGD with small bowel, gastric, and esophageal biopsies. ??? TOTAL KNEE ARTHROPLASTY Left 09/03/2011 partial total knee MEDICATIONS: Current Outpatient Medications: ??? eletriptan (RELPAX) 40 mg tablet, Treat with eletriptan (Relpax) 40 mg at onset of severe headache. May repeat one time after 2 hours if needed. Limit the use to no more than 9 days a month (twice a week). (Patient taking differently: Treat with eletriptan (Relpax) 40 mg at onset of severe headache. May repeat one time after 2 hours if needed. Limit the use to no more than 9 days a month (twice aweek). PRN), Disp: 12 tablet, Rfl: 3 ??? levothyroxine (SYNTHROID, LEVOTHROID) 100 mcg tablet, Alternates with 112 mcg , Disp: , Rfl: ??? levothyroxine (SYNTHROID, LEVOTHROID) 112 mcg tablet, Take 1 tablet (112 mcg total) by mouth daily., Disp: 30 tablet, Rfl: 11 ??? metFORMIN XR (GLUCOPHAGE-XR) 500 mg 24 hr tablet, Take 2 tablets (1,000 mg total) by mouth 2 (two) times a day., Disp: 360 tablet, Rfl: 3 ??? propranoloL (INDERAL LA) 80 mg 24 hr capsule, TAKE 1 CAPSULE (80 MG TOTAL) BY MOUTH 2 (TWO) TIMES A DAY., Disp: 60 capsule, Rfl: 11 ??? sertraline (ZOLOFT) 25 mg tablet, Take 1 tablet (25 mg total) by mouth daily. Take 1 tablet (25 mg total) by mouth daily for the fist week. Can increase to 50 mg daily after one week., Disp: 30 tablet, Rfl: 0 ??? spironolactone (ALDACTONE) 50 mg tablet, Take 1 tablet (50 mg total) by mouth 2 (two) times a day., Disp: 180 tablet, Rfl: 0 ??? TENS unit and electrodes (Cefaly) combo pack, Acute treatment is for 60 minutes. Preventive treatment is 20 min per day. (Patient not taking: Reported on 06/21/2021), Disp: 1 each, Rfl: 0 SOCIAL HISTORY: Tobacco history is Social History Tobacco Use Smoking Status Never Smoker Smokeless Tobacco Never Used . VITAL SIGNS BP Temp Pulse Resp SpO2 There is no height or weight on file to calculate BMI. PHYSICAL EXAMINATION: GENERAL: The patient is alert, oriented, and [...] ; at 30 degrees:1A (Normal) Lateral Patellar [place]: 2 quadrants Medial Patellar [place]: 1.5 quadrants Patellar Apprehension: pain, but no apprehension Quadriceps: 5/5, no atrophy IMAGING Radiographs left knee were obtained reviewed. X-rays do not appear demonstrate acute process. No fractures or dislocations. Signs of previous MPFL reconstruction with bone tunnels noted near medial epicondyle and medial patella. Degenerative changes of the patellofemoral joint noted IMPRESSION/REPORT/PLAN 1. Left knee pain Today we had a lengthy discussion with the patient regarding her knee. Unfortunately continues to have symptoms despite PT and activity modifications following injury that occurred at work in February. Knee feels fairly stable on exam today, however does have exquisite tenderness palpation along the insertion points of prior MPFL reconstruction. Mild pain to lateral patella as well. With persistent pain and occasional mechanical symptoms, however, I would like to work this up further. MRI of the kneewill be obtained and she will follow up shortly after to review its results and discuss next best steps. She voiced understanding and agreement with this plan. R ENGINEER documented in this encounter Plan of Treatment Upcoming Encounters Date Type Specialty Care Team Description 04/22/2022 Appointment Laboratory Medicine Meryl Julio M.D. [address] [place] [address] (Hector martin) 04/29/2022 Office Visit Endocrinology Meryl Julio M .D. [address] [place], [place] [address] (Hector rk) Scheduled Referrals Name Type Priority Associated Order Schedule Diagnoses Orthopedic Surgery Outpatient Referral Routine 1 Occurrences office visit starting 2021 (clinic) until 3 documented as of this encounter Results MR Knee Left without IV Contrast (07/17/2021 2:27 PM POWER ENGINEER) Anatomical Region Laterality Modality Lower Extremity, Knee, Musculoskeletal RST LOS, Left Magnetic Resonance Musculoskeletal ARZ LOS, Muskuloskeletal FLA LOS Specimen (Source) Anatomical Collection Method Collection Time Re ceived Time Location / / Volume Laterality 07/17/2021 2:37 PM POWER ENGINEER Impressions 07/17/2021 2:51 PM POWER ENGINEER 1. ??Status post prior MPFL for reconstr uction, without evidence of high-grade graft injury. 2. ??Intact cruciate and collateral liga ments. No meniscus tear. 3. ??Question subtle cartilage fissuring in the lateral patellar facet. No other focal hyaline cartilage abnormality. Narrative 07/17/2021 2:51 PM POWER ENGINEER EXAM: MR KNEE LEFT WITHOUT IV CONTRAST COMPARISON:Knee radiograph from 2 FINDINGS: Medial meniscus: No tear Lateral meniscus: No tear Ligaments: The ACL, PCL, MCL, and LCL ar e intact. Extensor mechanism: The quadriceps and p atellar tendons are intact. Status post prior MPFL reconstruction. The graft appears intact , without regional marrow or soft tissue edema. Cartilage: Question subtle focal fissuri ng of cartilage in the lateral patellar facet on series 3 image 9. Remainder of the patellofemoral compartment cartilage is intact. Tibiofemoral compartment cartilage is intact. Effusion: Trace joint fluid Waite's cyst: None Popliteal/tibial artery: No aberrant ant erior tibial artery. Other: No marrow edema or evidence of fr acture. Procedure Note Ignacio Mcgee M.D. - 07/17/2021Formattin g of this note might be different from the original. EXAM: MR KNEE LEFT WITHOUT IV CONTRAST COMPARISON:Knee radiograph from 2 FINDINGS: Medial meniscus: No tear Lateral meniscus: No tear Ligaments: The ACL, PCL, MCL, and LCL ar e intact. Extensor mechanism: The quadriceps and p atellar tendons are intact. Status post prior MPFL reconstruction. The graft appears intact , without regional marrow or soft tissue edema. Cartilage: Question subtle focal fissuri ng of cartilage in the lateral patellar facet on series 3 image 9. Remainder of the patellofemoral compartment cartilage is intact. Tibiofemoral compartment cartilage is intact. Effusion: Trace joint fluid Waite's cyst: None Popliteal/tibial artery: No aberrant ant erior tibial artery. Other: No marrow edema or evidence of fr acture. IMPRESSION: 1. Status post prior MPFL for reconstruc tion, without evidence of high-grade graft injury. 2. Intact cruciate and collateral ligame nts. No meniscus tear. 3. Question subtle cartilage fissuring i n the lateral patellar facet. No other focal hyaline cartilage abnormality. Lanre SRIVASTAVA MRI PROCEDURES DX Knee Left 4+ Views (07/04/2021 12:14 PM POWER ENGINEER) Anatomical Region Laterality Modality Lower Extremity, Knee, Musculoskeletal RST LOS, Left Digital Radiography Musculoskeletal ARZ LOS, Muskuloskeletal FLA LOS Specimen (Source) Anatomical Collection Method Collection Time Re ceived Time Location / / Volume Laterality 07/04/2021 12:33 PM POWER ENGINEER Impressions 07/04/2021 12:45 PM POWER ENGINEER No acute left knee osseous abnormality Narrative 07/04/2021 12:45 PM POWER ENGINEER EXAM: DX KNEE LEFT 4+ VIEWS COMPARISON: 03/22/2021 FINDINGS: There is no acute left knee os seous abnormality. Bone mineralization is within normal limits. The visualized joint spaces are preserved. Procedure Note Jet Spears M.D. - 07/04/2021Form atting of this note might be different from the original. EXAM: DX KNEE LEFT 4+ VIEWS COMPARISON: 03/22/2021 FINDINGS: There is no acute left knee os seous abnormality. Bone mineralization is within normal limits. The visualized joint spaces are preserved. IMPRESSION: No acute left knee osseous abnormality Lanre SRIVASTAVA DIAGNOSTIC IMAGING PROCE ASHLEY documented in this encounter Visit Diagnoses Diagnosis Pain Knee Left - Primary History Of Falling Arthroscopy Knee Status Post Pain Knee Left Arthroscopy Knee Status Post documented in this encounter Care Teams Debt Management Counselor Relationship Specialty Start Date End Date Jerry Patterson M.D. PCP - General Family Medicine 05/06/[address] [place] [phone] documented as of this encounter
--- OUTSIDE RECORDS SUMMARY | 2022-03-06 07:04 | XMS_ITS | Encounter Summary ---
:1995 Author Organization [facility] Address [address] [place] [address] Care Team Providers Name Role Phone Jerry Patterson M.D. Primary Care Provider Reason for Referral Appointment Request (Routine) - Closed Specialty Diagnoses / Procedures Referred By Contact Refer red To Contact Diagnoses Thyroiditis Deric's Jerry Patterson M.D. Procedures S-TSH (Thyroid-Stimulating Hormone - Sensitive) [address] [place] [phone] Referral ID Status Reason Start Date Expiration Date Visits Requ ested Visits Authorized [id number] Closed 02/21/2021 02/21/2022 1 1 STITCHER Reason for Visit Appointment Request (Routine) - Closed Specialty Diagnoses / Procedures Referred By Contact Refer red To Contact Diagnoses Thyroiditis Deric's Jerry Patterson M.D. Procedures S-TSH (Thyroid-Stimulating Hormone - Sensitive) [address] [place] [phone] Referral ID Status Reason Start Date Expiration Date Visits Requ ested Visits Authorized [id number] Closed 02/21/2021 02/21/2022 1 1 Encounter Details Date Type Department Care Team Description 07/11/2021 Hospital Encounter Department of Jerry Patterson, [facility]roid spike [facility] [address] [place], [place] KHRIS Sneed [address] [facility] [phone] KHRIS CORREA [phone] (Work) [phone] Social History Tobacco Use Types Packs/Day Years [...] or relatives? How often do you attend alevism or latter day More than 4 time s per year 06/21/2021 services? Do you belong to any clubs or organizations Yes 06/21/2021 such as alevism groups, unions, fraternal or athletic groups, or [...] at Date Recorded Female 06/21/2021 12:52 PM PLUG STITCHER documented as of this encounter Medications at Time of Discharge Medication Sig Dispensed Refills Start Date End Date metFORMIN XR Take 2 tablets 360 tablet 3 02/13/2021 (GLUCOPHAGE-XR) 500 mg (1,000 mg total) by 24 hr tabletIndications: mouth 2 (two) times Polycystic Ovary a day. Syndrome TENS unit and electrodes Acute treatment is 1 each 0 (Cefaly) combo for 60 minutes. packIndications: Preventive treatment Migraine Headache is 20 min per day. eletriptan (RELPAX) 40 Treat with 12 tablet 3 02/15/2020 mg tabletIndications: eletriptan (Relpax) Migraine Headache 40 mg at onset of severe headache. May repeat one time after 2 hours if needed. Limit the use to no more than 9 days a month (twice a week). levothyroxine Alternates with 112 0 02/22/2021 (SYNTHROID, LEVOTHROID) mcg 100 mcg tablet levothyroxine Take 1 tablet (112 30 tablet 11 01/23/2021 (SYNTHROID, LEVOTHROID) mcg total) by mouth 112 mcg tablet daily. ondansetron ODT Place 4 mg under the 0 06/26/2021 08/14/2021 (ZOFRAN-ODT) 4 mg tongue. PRN disintegrating tablet propranoloL (INDERAL LA) TAKE 1 CAPSULE (80 60 capsule 11 05/202007/24/2021 80 mg 24 hr MG TOTAL) BY MOUTH 2 capsuleIndications: (TWO) TIMES A DAY. Migraine Headache sertraline (ZOLOFT) 25 Take 1 tablet (25 mg 30 tablet 0 08/14/2021 mg tabletIndications: total) by mouth Anxiety daily. Take 1 tablet (25 mg total) by mouth daily for the fist week. Can increase to 50 mg daily after one week. spironolactone Take 1 tablet (50 mg 180 tablet 0 01/23/2021 09/05/2021 (ALDACTONE) 50 mg total) by mouth 2 tabletIndications: (two) times a day. Polycystic Ovary Syndrome documented as of this encounter Plan of Treatment Upcoming Encounters Date Type Specialty Care Team Description 04/22/2022 Appointment Laboratory Medicine Meryl Julio M.D. [address] [place] [address] (Wo rk) 04/29/2022 Office Visit Endocrinology Meryl Julio M .D. [address] [place] [address] (Wo rk) documented as of this encounter Procedures Procedure Name Priority Date/Time Associated Diagnosis Comme nts THYROID-STIMULATING Routine 07/11/2021 3:11 PM Thyroiditis Re sults for this HORMONE-SENSITIVE PLUG STITCHER Deric's procedure are in (S-TSH) the results section. documented in this encounter Results S-TSH (Thyroid-Stimulating Hormone - Sensitive) (07/11/2021 3:11 PM PLUG STITCHER) athologist Signature TSH, Sensitive 2.1 0.3 - 4.2 07/11/2021 MKTO mIU/L 4:04 PM PLUG STITCHER Specimen Anatomical Collection Method Collection Time Receive d Time (Source) Location / / Volume Laterality Blood (Blood, 07/11/2021 3:11 PM 07/11/19 22 3:28 Venous) PLUG STITCHER PM PLUG STITCHER Jerry Patterson M.D. LAB BLOOD ADD-ON Performing Organization Address City/State/ZIP Code Phon e Number - [address] [place] [id number] [place] [address] [place] [address] System in [address] documented in this encounter Visit Diagnoses Diagnosis Thyroiditis Deric's documented in this encounter Care Teams Aircraft Layout Worker Relationship Specialty Start Date End Date Jerry Patterson M.D. PCP - General Family Medicine 05/06/21 [address] [place] [phone] documented as of this encounter
--- OUTSIDE RECORDS SUMMARY | 2022-03-06 07:04 | XMS_ITS | Encounter Summary ---
:1995 Author Organization [facility] Address [address] [place] [address] Care Team Providers Name Role Phone Jerry Patterson M.D. Primary Care Provider Reason for Referral Outpatient (Routine) - Closed Specialty Diagnoses / Procedures Referred By Contact Refer red To Contact Diagnoses Pain Knee Left Lanre Tejeda D.O. [facility] Region Procedures DX Knee Left 4+ Views [address] [place] [phone] Referral ID Status Reason Start Date Expiration Date Visits Requ ested Visits Authorized [id number] Closed 06/30/2021 06/30/2022 1 1 E IN WAITER/WAITRESS Reason for Visit Outpatient (Routine) - Closed Specialty Diagnoses / Procedures Referred By Contact Refer red To Contact Diagnoses Pain Knee Left Lanre Tejeda D.O. [facility] Region Procedures DX Knee Left 4+ Views [address] [place] [address] Referral ID Status Reason Start Date Expiration Date Visits Requ ested Visits Authorized [id number] Closed 06/30/2021 06/30/2022 1 1 Encounter Details Date Type Department Care Team Description 07/04/2021 Hospital Encounter Department of Lanre Tejeda J, Pain Knee Left Radiology, [facility], in [place], [address] [place], [place] [address] [facility] [address] [place] [address] [phone] Social History Tobacco Use Types Packs/Day Years [...] or relatives? How often do you attend yarsani or anabaptist More than 4 time s per year 06/21/2021 services? Do you belong to any clubs or organizations Yes 06/21/2021 such as yarsani groups, unions, fraternal or athletic groups, or [...] place to sleep or slept in a nursing home (including now)? Education Answer Date Recorded What is the highest level of school Bachelor's degree (e.g., BA, AB, 06/21/2021 you have completed or the highest BS) degree you have received? Sex Assigned at Date Recorded Female 06/21/2021 12:[address] WAITER/WAITRESS documented as of this encounter Medications at [...] 04/22/2022 Appointment Laboratory Medicine Meryl Julio M.D. [address] [place] [address] (Wo rk) 04/29/2022 Office Visit Endocrinology Meryl Julio M .D. [address] [place], [place] [address] (Wo rk) documented as of this encounter Procedures Procedure Name Priority Date/Time Associated Comments Diagnosis DX KNEE LEFT 4+ RAD - Routine 07/04/2021 12:14 Pain Knee Left Resul ts for this VIEWS (most inpatients PM DRIVE IN WAITER/WAITRESS procedure a re in and all the results outpatients) section. documented in this encounter Results DX Knee Left 4+ Views (07/04/2021 12:[address] WAITER/WAITRESS) Anatomical Region Laterality Modality Lower Extremity, Knee, Musculoskeletal RST LOS, Left Digital Radiography Musculoskeletal ARZ LOS, Muskuloskeletal FLA LOS Specimen (Source) Anatomical Collection Method Collection Time Re ceived Time Location / / Volume Laterality 07/04/2021 12:[address] WAITER/WAITRESS Impressions 07/04/2021 12:[address] WAITER/WAITRESS No acute left knee osseous abnormality Narrative 07/04/2021 12:[address] WAITER/WAITRESS EXAM: DX KNEE LEFT 4+ VIEWS COMPARISON: [...] encounter Visit Diagnoses Diagnosis Pain Knee Left documented in this encounter Care Teams Print Operator Relationship Specialty Start Date End Date Jerry Patterson M.D. PCP - General Family Medicine 05/06/[address] [place] [phone] documented as of this encounter
--- OUTSIDE RECORDS SUMMARY | 2022-03-06 07:04 | XMS_ITS | Encounter Summary ---
:1995 Author Organization [facility] Address [address] [place] [address] Care Team Providers Name Role Phone Jerry Patterson M.D. Primary Care Provider Reason for Visit Physical Therapy (Routine) - Canceled Specialty Diagnoses / Procedures Referred By Contact Refer red To Contact Diagnoses History Of Falling Pain Back Thoracic Pain Knee Left Jordan Chang III, [facility] Procedures PT Ongoing treatment Willy, M.P.H. [address] [place] [address] Referral ID Status Reason Start Date Expiration Date Visits V isits Requested Authorized [id number] Canceled 07/04/2021 07/04/2022 99 99 Encounter Details Date Type Department Care Team Description 07/29/2021 Clinical Support Department of Physical Flaquito Chang III, M.D., M.P.H. [address] [place] [address] History Of Falling; Medicine and Jimbo Gallegos P.T., D.P.T. [address] [place] [address] Pain Back Thoracic; Rehabilitation in Pain Knee Left [employer], [place] [address] [place] [phone] Social History Tobacco Use Types Packs/Day [...] or relatives? How often do you attend muslim or taoism More than 4 time s per year 06/21/2021 services? Do you belong to any clubs or organizations Yes 06/21/2021 such as muslim groups, unions, fraternal or athletic groups, or [...] at Date Recorded Female 06/21/2021 12:52 PM EMAIL PRODUCTION CONSULTANT documented as of this encounter Progress Notes Jimbo Gallegos P.T., D.P.T. - 07/29/2021 1:[address] [facility] Physical Therapy Outpatient Treatment Note/Discharge Patient Name: Felecia Cardenas Referring Provider: Jordan Chang III, M.D., M.P.H. [address] [place] [address] Rehab Diagnosis: 1. History Of Falling 2. Pain Back Thoracic 3. 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 Recently found out that they are expecting a baby. SUBJECTIVE: Pt state her current Lt knee pain is 2/10. Pt denies any question or concern regarding her home exercise program. Pt likes to perform her home exercises without attending additional PT appts at this time. Pain: Location: Rt side neck and shoulder, Improving Lt knee, 2-08/01 OBJECTIVE: Contact monitoring: Therapist was wearing the following PPE throughout entire session: surgical mask Patient was wearing a mask during therapy session: yes Interventions/treatment provided 07/29/2021: - Discussion on current status with active warm up on NuStep - Therapeutic exercises NuStep L5 - legs only- 5 minutes -Kinesiotaping to left knee to assist with support with bending/squatting and avoid clicking instructed Pt how to apply it at home. 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 Pt is independent with her homeexercise program and she will perform them without having additional PT appts at this time. Discussed how to apply kinesio tapes at home and provided STM to her Lt IT band as pt requested. Pt has partially met her PT goals. Pt is discharged today. Patient response to treatment: good PLAN: Frequency/Duration: 2/wk x 8 wks Plan of Care End Date: PT Next Certification Date: 08/01/21 Plan for Next Session:Lt Knee stabilization exercises Time Spent with Patient Therapeutic Exercise (min): 8 min Manual Therapy (min): 30 min Time Calculation Total Timed Units (min): 38 min Total Treatment Time (min): 38 min Electronically signed by: Jimbo Gallegos P.T., D.P.T. 07/29/21 1:44 PM EMAIL PRODUCTION CONSULTANT Department of Physical Medicine and Rehabilitation in [address] [address] Dept: [phone] L PRODUCTION CONSULTANT documented in this encounter Plan of Treatment Upcoming Encounters Date Type Specialty Care Team Description 04/22/2022 Appointment Laboratory Medicine Meryl Julio M.D. [address] [place] [address] (Wo veronica) 04/29/2022 Office Visit Endocrinology Meryl Julio M .D. [address] [place] [address] (Wo veronica) documented as of this encounter Visit Diagnoses Diagnosis History Of Falling Pain Back Thoracic Pain Knee Left documented in this encounter Care Teams Production Line Operator Relationship Specialty Start Date End Date Jerry Patterson M.D. PCP - General Family Medicine 05/06/21 [address] [place] [phone] documented as of this encounter
--- OUTSIDE RECORDS SUMMARY | 2022-03-06 07:04 | XMS_ITS | Encounter Summary ---
:1995 Author Organization [facility] Address [address] [place] [address] Care Team Providers Name Role Phone Jerry Patterson M.D. Primary Care Provider Encounter Details Date Type Department Care Team Description 08/30/2021 Hospital Encounter Department of Allison Collins ess Leg Syndrome; Laboratory Willy Nicholson Deficiency Iron Medicine, [address], in [facility] [address] [place], [place] [address] [address] [place] [phone] [place], [place] (Work) [address] Social History Tobacco Use Types Packs/Day Years [...] or relatives? How often do you attend hoahaoism or jainism More than 4 time s per year 06/21/2021 services? Do you belong to any clubs or organizations Yes 06/21/2021 such as hoahaoism groups, unions, fraternal or athletic groups, or [...] place to sleep or slept in a correction (including now)? Education Answer Date Recorded What is the highest level of school Bachelor's degree (e.g., BA, AB, 06/21/2021 you have completed or the highest BS) degree you have received? Sex Assigned at Date Recorded Female 06/21/2021 12:52 PM LAW LIBRARIAN documented as of this encounter Medications at [...] 9 days a month (twice a week). iron,carbonyl-vitamin C Take 1 tablet (65 mg 30 tablet 2 12/16/2021 (VITRON-C) 65 mg iron- of iron total) by [address] mouth every evening. tabletIndications: Do not crush or Restless Leg Syndrome, chew. Deficiency Iron levothyroxine Take 1 tablet (112 90 tablet 3 07/16/202104/2022 (SYNTHROID, LEVOTHROID) mcg total) by mouth 112 mcg tablet daily. Take 2 extra tabs/week during spironolactone Take 1 tablet (50 mg 180 tablet 0 01/23/2021 09/05/2021 (ALDACTONE) 50 mg total) by mouth 2 tabletIndications: (two) times a day. Polycystic Ovary Syndrome documented as of this encounter Plan of Treatment Upcoming Encounters Date Type Specialty Care Team Description 04/22/2022 Appointment Laboratory Medicine Meryl Julio M.D. [address] [place], [place] [address] (Hector martin) 04/29/2022 Office Visit Endocrinology Meryl Julio M .D. [address] [place], [place] [address] (Hector martin) documented as of this encounter Procedures Procedure Name Priority Date/Time Associated Diagnosis Comme nts FERRITIN, S Routine 08/30/2021 2:23 PM Restless Leg Syndrome Results for this CDT Deficiency Iron procedure ar e in the results section . documented in this encounter Results Ferritin (08/30/2021 2:23 PM CDT) P athologist Signature Ferritin, S 25 6 - 175 08/30/2021 [place] mcg/L 4:33 PM CDT Comment: Biotin has been identified by the landen lopes as a potential interfering substance. ??Higher concentr ations of biotin may be found in multivitamins, hair/nail supple ments, and workout supplements. ??If the result does not [facility] clinical observations, repeat testing after patient refrains fr om the use of supplements for at least 12 hours. Specimen Anatomical Collection Method Collection Time Receive d Time (Source) Location / / Volume Laterality Blood (Blood, 08/30/2021 2:23 PM 08/31/19 3:52 Venous) CDT PM CDT Allison Collins M.D. LAB BLOOD ADD-ON Performing Organization Address City/State/ZIP Code Phon e Number [facility]- [address] [place] [address] [place] [address] System in [place] [address] [facility] documented in this encounter Visit Diagnoses Diagnosis Restless Leg Syndrome Deficiency Iron documented in this encounter Care Teams Log Sorting Supervisor Relationship Specialty Start Date End Date Jerry Patterson M.D. PCP - General Family Medicine 05/06/21 [address] [place] [phone] documented as of this encounter
--- OUTSIDE RECORDS SUMMARY | 2022-03-06 07:04 | XMS_ITS | Encounter Summary ---
:1995 Author Organization [facility] Address [address] [place] [address] Care Team Providers Name Role Phone Jerry Patterson M.D. Primary Care Provider Reason for Referral Outpatient (Routine) - Closed Specialty Diagnoses / Procedures Referred By Contact Refer red To Contact Diagnoses Palpitations Jerry Patterson M.D. [facility] Procedures ECG 12 Lead [address] [place] [phone] Referral ID Status Reason Start Date Expiration Date Visits Requ ested Visits Authorized [id number] Closed 09/05/2021 09/05/2022 1 1 utpatient (Routine) - Authorized Specialty Diagnoses / Procedures Referred By Contact Refer red To Contact Diagnoses Palpitations Jerry Patterson M.D. [facility] Procedures ECG Heart rhythm monitor (Holter) [address] [place] [address] Referral ID Status Reason Start Date Expiration Date Visits V isits Requested Authorized [id number] Authorized 09/05/2021 09/05/2022 1 1 Reason for Visit Reason Comments Follow-up Palpitations Appointment Request (Routine) - Closed Specialty Diagnoses / Procedures Referred By Contact Refer red To Contact Family Medicine Referral ID Status Reason Start Date Expiration Date Visits Requ ested Visits Authorized [id number] Closed 09/04/2021 09/04/2022 1 1 Encounter Details Date Type Department Care Team Description 09/05/2021 Office Visit Department of Family Jerry Patterson, Maribel atmelissa (Primary Dx); Medicine in [place] M.D. Thyroiditis Deric's; [place] [address] Obstructive Sleep Apnea Adult [address] [place], [place] [phone] Social History Tobacco Use Types Packs/Day [...] or relatives? How often do you attend nondenominational or uatsdin More than 4 time s per year 06/21/2021 services? Do you belong to any clubs or organizations Yes 06/21/2021 such as nondenominational groups, unions, fraternal or athletic groups, or [...] place to sleep or slept in a group home (including now)? Education Answer Date Recorded What is the highest level of school Bachelor's degree (e.g., BA, AB, 06/21/2021 you have completed or the highest BS) degree you have received? Sex Assigned at Date Recorded Female 06/21/2021 12:52 PM FINANCE ASSOCIATE documented as of this encounter Last Filed Vital Signs Vital Sign Reading Time Taken Comments Blood Pressure 111/76 09/05/2021 9:46 AM CDT Pulse 85 09/05/2021 9:46 AM CDT Temperature 36.8 ??C (98.2 ??F) 09/05/2021 9:46 AM CDT Respiratory Rate 20 09/05/2021 9:46 AM CDT Oxygen Saturation - - Inhaled Oxygen Concentration - - Weight 99.8 kg (220 lb) 09/05/2021 9:46 AM CDT Height - - Body Mass Index 34.94 08/30/2021 1:05 PM CDT documented in this encounter Progress Notes Jerry Patterson M.D. - 09/05/2021 10:00 AM CDT SUBJECTIVE CHIEF COMPLAINT/REASON FOR VISIT Palpitation. HISTORY OF PRESENT ILLNESS Felecia Cardenas is a 26 y.o. at 13 weeks gestation, history of Deric's thyroiditis, chronic migraine headache, polycystic ovarian syndrome, obstructive sleep apnea, who presents to clinic today with concern of palpitation. She reports that for the past 1.5 weeks, she has been getting palpi tation on a regular daily basis. She monitors her heart rate, it ranges from 60 to 80 beats per minute. She complains of intermittent or episodic strong heart beats that occasionally took her breath away. She denies lightheadedness, near syncopal episode, loss of consciousness, chest pain or shortnessof breath. She also denies nausea, vomiting or diaphoresis. She states that it comes and goes abruptly. It occurs randomly throughout the day, even when she is resting. She recently establishing care with Sleep Medicine. She brought up her concern with restless leg syndrome while sleeping. She was noted to have borderline low ferritin level without evidence of anemia. She was recommended to be started on Vitron-C. She also reports that recently her levothyroxine dosing was adjusted by her fisher trawl line. Given the ongoing palpitation, she has concern and would like to be evaluated. CURRENT MEDICATIONS Current Outpatient Medications Medication Sig ??? iron,carbonyl-vitamin C (VITRON-C) 65 mg iron- [address] tablet Take 1 tablet (65 mg of iron total) by mouth every evening. Do not crush or chew. ??? levothyroxine (SYNTHROID, LEVOTHROID) 112 mcg tablet Take 1 tablet (112 mcg total) by mouth daily. Take 2 extra tabs/week during ??? metFORMIN XR (GLUCOPHAGE-XR) 500 mg 24 hr tablet Take 2 tablets (1,000 mg total) by mouth 2 (two) times a day. ??? propranoloL (INDERAL) 80 mg tablet Take 80 mg by mouth every 12 (twelve) hours. ??? TENS unit and electrodes (Cefaly) combo pack Acute treatment is for 60 minutes. Preventive treatment is 20 min per day. (Patient taking differently: Acute treatment is for 60 minutes. Preventive treatment is 20 min per day.) ALLERGIES / CONTRAINDICATIONS Allergies Allergen Reactions ??? Clindamycin Anaphylaxis ??? Gentamicin Anaphylaxis ??? Ciprofloxacin Anaphylaxis OBJECTIVE VITAL SIGNS BP 111/76 Pulse 85 Temp 36.8 ??C Resp 20 Wt 99.8 kg BMI 34.94 kg/m?? PHYSICAL EXAMINATION General: Alert, oriented x3. No acute distress. HEENT: Neck is supple. Cardiovascular: S1, S2. Regular rate and rhythm. No murmur. No gallops. Lungs: Clear breath sounds. No crackles or expiratory wheezes. Abdomen: Soft, nontender. Bowel sounds in all 4 quadrants. Extremities: No cyanosis or edema. ASSESSMENT / PLAN 1. Palpitation. Her physical examination was unremarkable and her vital signs are stable. We came to agreement to obtain labs today to evaluate her electrolytes. She will be placed on 48 hour Holter monitor as the next step for the workup. We will await for the test results and go from there. She is advised to continue monitoring the symptoms. She is in understanding and agreement with the plan. 2. History of Deric's thyroiditis. She will follow-up with her fisher trawl line as directed. She will need to recheck her TSH level after some change was made to her levothyroxine dosing. 3. . She follows up with [facility] OBGYN service. 4. Obstructive sleep apnea. She will continue using her CPAP as directed. ADDENDUM Her Holter monitor shows PVC with burden less than 1%. Given she is symptomatic, she would be referred to Cardiology service for consultation. She was notified regarding the plan via portal. documented in this encounter Plan of Treatment Upcoming Encounters Date Type Specialty Care Team Description 04/22/2022 Appointment Laboratory Medicine Meryl Julio M.D. [address] [place], [place] [address] (Wo rk) 04/29/2022 Office Visit Endocrinology Meryl Julio M .D. [address] [place], [place] [address] (Hector rk) documented as of this encounter Results HOLTER MONITOR - IN CLINIC AUTOMOTIVE AIRCONDITIONING MECHANIC (09/08/2021 2:07 PM CDT) [facility] gist Method Time Signature Min Heart [...] AF Duration 0 duration INFOBIONIC MOME AF [place] 0 percent INFOBIONIC MOME Symptom Count 52 count INFOBIONIC MOME Specimen (Source) Anatomical Collection Method Collection Time Re ceived Time Location / / Volume Laterality 09/06/2021 11:13 AM CDT Narrative INFOBIONIC MOME - 09/13/2021 3:20 PM CDT [place] 1. The basic rhythm was sinus with [...] to 126 bpm. Single PVCs were present. Import/Export Administrator: Nancy Sheridan/Rosy Basurto Procedure Note Loki Roman M.D., Ph.D. - 2 [place] 1. The basic rhythm was sinus with [...] to 126 bpm. Single PVCs were present. Import/Export Administrator: Nancy Sheridan/Rosy Basurto Jerry Patterson M.D. CV CARDIAC SERVICES PROCEDUR ES Performing Organization Address City/State/ZIP Code Phon e Number INFOBIONIC MOME INFOBIONIC MOME NA ECG 12 Lead (09/06/2021 11:01 AM CDT) P athologist Signature Ventricular Rate 87 BPM MUSE ECG/Min CO Interval 166 ms MUSE QRSD Interval 82 ms MUSE QT Interval 364 ms MUSE QTC Interval 438 ms MUSE P [place] 37 degrees MUSE R [place] 33 degrees MUSE T Wave [place] 24 degrees MUSE Specimen Anatomical Collection Method [...] change was found Reviewed by JENNIFER Floyd Jerry Patterson M.D. ECG ORDERABLES Performing Organization Address City/State/ZIP Code Phon e Number MUSE MUSE NA (ABNORMAL) Basic Metabolic Panel (09/05/2021 10:28 AM [...] CDT eGFR-Black/Afri >90 >=60 09/05/2021 [place] can Citizen Of [place] mL/min/BSA 5:29 PM CDT Comment: ----ADDITIONAL INFORMATION---- [...] M.D. LAB BLOOD ADD-ON Performing Organization Address City/[facility] Phon e Number [facility]- [address] [place] [phone] [place] [address] System [address] Phosphorus Inorganic (09/05/2021 10:28 AM CDT) P athologist Signature Phosphorus 4.3 2.5 - 4.5 09/05/2021 [place] (Inorganic), P mg/dL 5:29 PM CDT Specimen Anatomical Collection Method Collection Time Receive d Time (Source) Location / / Volume Laterality Blood (Blood, 09/05/2021 10:28 09/05/2021 4:55 Venous) AM CDT PM CDT Jerry Patterson M.D. LAB BLOOD ADD-ON Performing Organization Address [facility] Phon e Number [facility]- [address] [place] [address] [place] [address] [address] Magnesium (09/05/2021 10:28 AM CDT) P athologist Signature Magnesium, P 1.9 1.7 - 2.3 09/05/2021 [place] mg/dL 5:29 PM CDT Specimen Anatomical Collection Method Collection Time Receive d Time (Source) Location / / Volume Laterality Blood (Blood, 09/05/2021 10:28 09/05/2021 4:55 Venous) AM CDT PM CDT Jerry Patterson M.D. LAB BLOOD ADD-ON Performing Organization Address City/[facility] Phon e Number [facility]- [address] [place] [address] [place] [address] [address] documented in this encounter Visit Diagnoses Diagnosis Palpitations - Primary Thyroiditis Deric's Obstructive Sleep Apnea Adult Palpitations Palpitations documented in this encounter Care Teams Lead Producer Relationship Specialty Start Date End Date Jerry Patterson M.D. PCP - General Family Medicine 05/06/21 [address] [facility] [place] [phone] documented as of this encounter
--- OUTSIDE RECORDS SUMMARY | 2022-03-06 07:04 | XMS_ITS | Encounter Summary ---
:1995 Author Organization [facility] Address [address] [place] [address] Care Team Providers Name Role Phone Jerry Patterson M.D. Primary Care Provider Encounter Details Date Type Department Care Team Description 08/09/2021 Clinical Communication Department of Sleep Ra gopi Collins, Medicine in [place] [address] [address], [place] [address] Social History Tobacco Use Types Packs/Day [...] or relatives? How often do you attend restorationism or hindu More than 4 time s per year 06/21/2021 services? Do you belong to any clubs or organizations Yes 06/21/2021 such as restorationism groups, unions, fraternal or athletic groups, or [...] at Date Recorded Female 06/21/2021 12:52 PM MAKEUP SALES CONSULTANT documented as of this encounter Miscellaneous Notes Addendum Note - Christine Collins M.D. - 08/09/2021 12:20 PM CDT Addended by: CHRISTINE COLLINS on: 08/09/2021 12:20 PM Modules accepted: Orders Telephone Encounter - Codie Arriaga - 08/09/2021 11:44 AM CDT I was prepping charts for 08/30/21 I had to call the patient about outside [facility] records and a download.I was able to track down her records and I also got access to her [employer] account. Ramírez let me know that she has not been using her device as she felt her pressures were not accurate. Her download shows: Compliance Report Usage 08/09/2020 - 08/08/2021 Usage days 293/365 days (80%) >= 4 hours 211 days (58%) < 4 hours 82 days (22%) Usage hours 1,742 hours 46 minutes Average usage (total days) 4 hours 46 minutes Average usage (days used) 5 hours 57 minutes Median usage (days used) 5 hours 37 minutes Total used hours (value since last reset - 08/08/2021) 10,365 hours AirSense 10 AutoSet For Her Serial number [id number] Mode AutoSet for Her Min Pressure 4 cmH2O Max Pressure 8 cmH2O EPR Ramp Only EPR level 2 Therapy Pressure - cmH2O Median: 5.8 95th percentile: 7.0 Maximum: 7.3 Leaks - L/min Median: 1.3 95th percentile: 18.2 Maximum: 72.4 Events per hour AI: 1.9 HI: 0.1 AHI: 2.0 Apnea Index Central: 0.3 Obstructive: 0.5 Unknown: 1.1 RERA Index 0.0 Carlin-Pfeiffer respiration (average duration per night) 0 minute I asked pt to start usage again so we can have some current data to go off. Would you approve a supply refill for her until she can come see you for a consult? documented in this encounter Plan of Treatment Upcoming Encounters Date Type Specialty Care Team Description 04/22/2022 Appointment Laboratory Medicine Meryl Julio M.D. [facility] [place], [place] [address] (Hector martin) 04/29/2022 Office Visit Endocrinology Meryl Julio M .D. [address] [place], [place] [address] (Wo veronica) documented as of this encounter Visit Diagnoses Diagnosis Obstructive Sleep Apnea Adult - Primary documented in this encounter Care Teams Auto Air Conditioning Installer Relationship Specialty Start Date End Date Jerry Patterson M.D. PCP - General Family Medicine 05/06/21 [address] [place] [phone] documented as of this encounter
--- OUTSIDE RECORDS SUMMARY | 2022-03-06 07:04 | XMS_ITS | Encounter Summary ---
:1995 Author Organization [facility] Address [address] [place] [address] Care Team Providers Name Role Phone Jerry Patterson M.D. Primary Care Provider Reason for Referral Outpatient (Routine) - Authorized Specialty Diagnoses / Procedures Referred By Contact Refer red To Contact Neurology Diagnoses Migraine Headache Anxiety Almita Siegel APRN, [facility] C.N.P., M.S.N. [address] [place] [address] Referral ID Status Reason Start Date Expiration Date Visits V isits Requested Authorized [id number] Authorized 06/21/2021 06/21/2022 1 1 [facility] Reason for Visit Reason Comments Migraine F/u LV 3.21.21 Outpatient (Routine) - Closed Specialty Diagnoses / Procedures Referred By Contact Refer red To Contact Neurology Diagnoses Migraine Headache Zora Grant, [facility] P.A.-C., M.S. [address] [place] [address] Referral ID Status Reason Start Date Expiration Date Visits Requ ested Visits Authorized [id number] Closed 08/17/2020 08/17/2021 1 1 Encounter Details Date Type Department Care Team Description 06/21/2021 Office Visit Department of Siegel, Almita Patrick, Migraine Fareed murphy (Primary Dx); Neurology in [place], Erika JIMENEZ, Iain estrada [place] M.S.N. [address] [facility] [address] [place] [address] [place], [place] [phone] Social History Tobacco Use Types Packs/Day [...] or relatives? How often do you attend restorationist or samaritan More than 4 time s per year 06/21/2021 services? Do you belong to any clubs or organizations Yes 06/21/2021 such as restorationist groups, unions, fraternal or athletic groups, or [...] place to sleep or slept in a retirement (including now)? Education Answer Date Recorded What is the highest level of school Bachelor's degree (e.g., BA, AB, 06/21/2021 you have completed or the highest BS) degree you have received? Sex Assigned at Date Recorded Female 06/21/2021 12:52 PM [employer] [employer] [employer] documented as of this encounter Last Filed Vital Signs Vital Sign Reading Time Taken Comments Blood Pressure 114/79 06/21/2021 1:07 PM [facility] [employer] [employer] Pulse 84 06/21/2021 1:07 PM [employer] [employer] Temperature - - Respiratory Rate - - Oxygen Saturation - - Inhaled Oxygen Concentration - - Weight 97.9 kg (215 lb 13.3 oz) 06/21/2021 1:07 PM [employer] [employer] [employer] Height - - Body Mass Index 33.8 06/09/2021 11:51 AM [employer] documented in this encounter Patient Instructions Patient InstructionsAlmita Siegel APRN, C.NPapa, M.S.N. - 06/21/2021 1:15 PM CST It was a pleasure seeing you today, below are your follow-up instructions: ??? Continue taking Propranolol 80 mg twice daily ??? Consider using 3 mg of melatonin at bedtime to assist with sleeping ??? I will send a prescription for Sertraline to your pharmacy if you choose to use it. o Start with 25 mg daily for one week then increase to 50 mg daily. o If you start using this medication please let me know and we will schedule a follow-up appointment. [facility] documented in this encounter Progress Notes Almita Siegel APRN, C.NPapa, M.S.N. - 06/21/2021 1:15 PM CST SUBJECTIVE REFERRAL Zora Grant, * CHIEF COMPLAINT / REASON FOR VISIT: Ms. Cardenas presents today in follow-up of chronic migraines. HISTORY OF PRESENT ILLNESS: Ms. Cardenas is a 25 y.o. female with past medical history of MAGALIE (on CPAP), polycystic ovary syndrome, Deric's thyroiditis (follows with Endocrinology), and history of nephrolithiasis. Ms. Cardenas returns today for subsequent evaluation and assessment of the effectiveness of treatments suggested at her previous visit on 08/17/20. Ms. Cardenas was last seen and evaluated by Zora Grant. Felecia carries the established diagnosis of migraine with aura. At the time of her last evaluation patient was maintained on the preventative therapies of Propranolol 80 mg BID and Replax 40 mg as needed for function-limiting headaches. On presentation today Ms. Cardenas reports decrease in the frequency and intensity of headaches since last evaluation. Since last evaluation Ms. Cardenas has been maintained on the prophylactic therapy of Propranolol 80 mg twice daily. In the past 4 weeks Ms. Cardenas reports having had 1 headache day. Since last evaluation the headaches have not changed in characteristic or location. Over the past 4 weeksthe average severity and disability caused by the patient's headaches was: 1= Mild headache but no affect on functioning. Current headache medications: -Replax 40 mg -Propranolol 80 mg bid -Tylenol: help automatic blocker headaches -Ibuprofen: help automatic blocker headaches Past headache medications (discontinue reason): -Naproxen -- hard on stomach after surgery -Rizatriptan 10 mg -- can't remember details, made her sleepy -Imitrex 100 mg -- always had to redose CHASTITY-7 Total Score (max 21): 6 (06/21/21 1249) VASCULAR RISK FACTORS: No history of asthma, heart attack, stroke, or glaucoma. FAMILY HISTORY: Patient's grandma and mom both have migraines SOCIAL HISTORY: -Tobacco use (including e-cigs): None -Alcohol use: None -Illicit drug use: None -Sleep: Trouble both falling and staying asleep -- ? Stress related PHQ9 Score 07/13/2013 PHQ-9 Total Score (max 27) 0 OBJECTIVE PHYSICAL EXAM GENERAL: Pleasant 25 year old female, appears in no acute distress. Alert and oriented x 3. SKIN: No gross rashes or lesions present. HEAD: Normocephalic and atraumatic. EYES: Sclera anicteric. No conjunctivitis NEURO: Normal neurologic examination with no focal deficits or pathologic reflexes. Cranial nerves intact. ASSESSMENT / PLAN ??? Continue taking Propranolol 80 mg twice daily ??? Continue to use Relpax 40 mg as needed for acute treatment of severe headache ??? Consider using 3 mg of melatonin at bedtime to assist with sleeping ??? I will send a prescription for Sertraline to your pharmacy if you choose to use it. o Start with 25 mg daily for one week then increase to 50 mg daily. o If you start using this medication please let me know. o Follow up in 3 months DISCUSSION: Ruddy is a very pleasant, 25-year-old, female presenting today for routine follow-up of chronic migraine headaches with aura. Overall, migraines have been very controlled with the prophylaxis regimen of propranolol 80 mg twice daily and Relpax 40 mg for severe acute migraines. April was a abnormal month per patient as far as migraines ago. She had two debilitating migraines that lasted 3-4 days each and were followed by a day of brain fog. Patient was not able to work with these migraines and was requiring assistance from her for things such as walking to the bathroom etc.--at the time she thought she may have had COVID. Patient was tested with both migraines and was negative each time. These migraines were not preceded by an aura like her usual migraines were,they were more intense in pain, and they lasted much longer than her usual migraine. Patient does note that she had a lot of external stressors in her life at that time, wondering if this could have bee n contributing to the abnormal migraine pattern. Since then, she has only had one migraine in May and it followed her usual pattern of an aura (neck pain) and her headache only lasted one day. During our visit today, we discussed many different options for treatment. We do have room to increase the patient's propanolol and we could also explore a different abortive medication. However, sinceher two migraines in April seem to be an outlier and she has not had any repeat episodes in May, I would recommend staying at her current dose of medications and seeing how the next couple of months go. Patient is in agreement with this plan. She will let me know if her migraines began to worsen again or if medication seems ineffective for proper migraine control. Throughout our visit today, patient made comments on several occasions about increased stressed and anxiety. Patient became very tearful when speaking about this. 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 She is also actively trying to get . All of these factors combined are definitely taking a toll on the patient, her mental status, her migraines, her sleep, and her overall well-being. The patient and Ihad a long discussion in regard to the use of a medication to help with her stress and anxiety. Patient is unsure that she wants to start any medication at this time; however, I did send through a presc ription for sertraline to her pharmacy that she can greens picker and start if she chooses. I do think shewould greatly benefit from this --patient will let me know if she decides to start taking the sertraline. Patient's sleep has also been an ongoing struggle for her. 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 We did discuss melatonin, its uses, and the potential positive impact it could have on migraine prophylaxis as well. I would like to see the patient back in clinic in 3 months. At that time, I would like to evaluate how her migraines have been doing and also re-evaluate her mood with or without sertraline use. Patient is in agreement with this plan. Patient denies any further questions or concerns at this time. However, if any questions or concerns do arise patient can reach me via the portal, by calling the clinic, or coming back in to be evaluated. RECOMMENDATIONS 1. Preventive therapy: Propranolol 80 mg twice daily 2. For acute treatment of mild to moderate headaches I am suggesting current regimen as needed, but limit the use to no more than 12-14 days a month or 3 days per week. 3. For acute treatment of severe headaches or headache that are unresponsive to the above treatment,I recommend Relpax 40 mg as needed, but limit the use to no more than 9 days per month. 4. Follow-up is recommended in 3 months, or sooner if needed. A successful preventive will be one that decreases the headache frequency by at least 50%. The above plan of care was reviewed in detail with the patient and Ms. Cardenas was in agreement with this plan of care. Patient education: The patient was ready to learn and had no apparent learning barriers. Their learning preferences includes listening. The diagnosis and treatment plans were explained and the patient expressed understanding of the content. [facility] documented in this encounter Plan of Treatment Upcoming Encounters Date Type Specialty Care Team Description 04/22/2022 Appointment Laboratory Medicine Meryl Julio M.D. [address] [place], [place] [address] (Wo rk) 04/29/2022 Office Visit Endocrinology Meryl Julio M .D. [address] [place], [place] [address] (Wo rk) Scheduled Referrals Name Type Priority Associated Diagnoses [facility] Outpatient Referral Routine Migraine He adache Expected: visit (clinic) Anxiety 09/19/2021 (Approximate), Expires: 09/19/2022 documented as of this encounter Visit Diagnoses Diagnosis Migraine Headache - Primary Anxiety documented in this encounter Care Teams Electricity Trader Relationship Specialty Start Date End Date Jerry Patterson M.D. PCP - General Family Medicine 05/06/21 [address] [place] [id number] documented as of this encounter
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
--- OUTSIDE RECORDS SUMMARY | 2022-03-06 07:04 | XMS_ITS | Encounter Summary ---
:[address] [facility] Address [address] [place] [address] Care Team Providers Name Role Phone Jerry Patterson M.D. Primary Care Provider Reason for Visit Reason Comments Med Refill Encounter Details Date Type Department Care Team Description 08/14/2021 Refill Department of Family Medicine Jerry Johnson M.D. 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 - 08/14/2021 1:55 PM CDT Incorrect dosing. Telephone Encounter - Natacha Garces - 08/14/2021 10:56 AM CDT Lab Results Component Value Date TSH 2.1 07/11/2021 Recent Visits Date Type Provider Dept 05/06/21 Office Visit Shon Corbin M.D. [facility] Showing recent visits within past 540 days with a meds authorizing provider and meeting all other requirements Today's Visits Date Type Provider Dept 08/14/21 Appointment Jerry Patterson M.D. [facility] Showing today's visits with a meds authorizing provider and meeting all other requirements Future Appointments No visits were found meeting these conditions. Showing future appointments within next 150 days with a meds authorizing provider and meeting all other requirements documented in this encounter Plan of Treatment Upcoming Encounters Date Type Specialty Care Team Description 04/22/2022 Appointment Laboratory Medicine Meryl Julio M.D. [address] [place], [place] [address] (Wo rk) 04/29/2022 Office Visit Endocrinology Meryl Julio M .D. [address] [place], [place] [address] (Wo rk) documented as of this encounter Visit Diagnoses Not on filedocumented in this encounter Care Teams Director Agricultural Services Relationship Specialty Start Date End Date Jerry Patterson M.D. PCP - General Family Medicine 05/06/21 [address] [place] [address] documented as of this encounter
--- OUTSIDE RECORDS SUMMARY | 2022-03-06 07:04 | XMS_ITS | Encounter Summary ---
:1995 Author Organization [facility] Address [address] [place] [address] Care Team Providers Name Role Phone Jerry Patterson M.D. Primary Care Provider Reason for Visit Reason Comments Work Related Injury Encounter Details Date Type Department Care Team Description 07/24/2021 Office Visit Department of Jordan Chang History Of Falling (Primary Dx); Occupational Medicine IIIWilly, M.P.H. Pain Back Thoracic; [facility] [place] [address] Pain Knee Left; [address] [place], [place] Retur n To Work Status Examination [id number] [place] [address] [phone] Social History Tobacco Use Types Packs/Day Years [...] or relatives? How often do you attend mormon or jain More than 4 time s per year 06/21/2021 services? Do you belong to any clubs or organizations Yes 06/21/2021 such as mormon groups, unions, fraternal or athletic groups, or [...] minutes do you engage in exercise at is 60 min 06/21/2021 level? 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 - 07/24/2021 3:45 PM CST Images from the original note were not included. 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 provider found Jerry Patterson M.D. CHIEF COMPLAINT/REASON FOR VISIT Work Related Injury HISTORY OF PRESENT ILLNESS Felecia Cardenas is a 25 y.o. female who returns again today to Occupational Medicine for f/u bradly injury that occurred on the DOI above. Background History @ initial intake 03/15/2021: Felecia [...] with the assistance of another nurse. The aluminum pool installer checked in and she reported the injury [...] injured a few years ago at a [facility] during a patient movement and she had to have surgery. Since the onset of the pain, the symptoms For back on the left side has been more tight and sore. She states that her left knee also does have some tenderness and feels bit hesitant on stairs.. Past history of work-related/WC injury: yes, 2013. 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 Patientmovement. Surgery. no impairment. No restrictions. No current work restrictions and was sent here to [facility] by OHZane RN. 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 [id number]. 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 Background Medical History: [...] No Current lives at with her in [place], [place]. 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 TODAY: Pain is rated 2/10 in her left knee and she still have some crepitus with bending. She statesthat she was seen by Orthopedics last week who discussed that MRI is overall reassuring except for small area of chondral fissuring for which she may benefit from injection. She states that she is 7 weeks and would rather not have any injection at this time. She does state that she was without any symptoms up until her recent work injury in did well with physical therapy after her 2013 same sided left knee surgery. She states that her back is feeling much better. Current pain medication/control: Tylenol as needed. Any specialty care following: She states that she is no longer seeing chiro however did see physicaltherapy at [place] last 05/16/2021. Impact on ability to perform occupation/current work restrictions: States that she is off work at this time. Impact on ability to accomplish home activities/hobbies: Doing well at home with chores. Impact on ability to acccomplish ADLs: Independent REVIEW OF SYSTEMS Musculoskeletal: Positive for arthralgias and pain or stiffness in the joints. MEDICAL HISTORY Past Medical History: Diagnosis Date ??? Body Mass Index 40.0 To 44.9 Adult ([facility]) 05/22/2016 Body mass index (BMI) 40.0-44.9, adult Rule activated problem due to BMI 40-44 posted on 05/22 at 08:45 MOTORCYCLE TECHNICIAN. ??? Migraine Headache 08/05/2018 ??? Obstructive Sleep Apnea Adult 10/14/2016 ??? Overweight Body Mass Index 25-29.9 Adult 05/22/2016 Body mass index (BMI) 40.0-44.9, adult Rule activated problem due to BMI 40-44 posted on 05/22 at 08:45 MOTORCYCLE TECHNICIAN. ??? Polycystic Ovary Syndrome 08/06/2017 ??? Rhinitis [...] turbinate reduction; Surgeon: Nisa Kahn M.D.; Location: [facility] OR ??? OTHER CONVERTED SHX (SEE COMMENT) N/A 03/21/2011 >1. ERCP. 2. Needle knife and completion biliary sphincterotomy. ??? OTHER CONVERTED SHX (SEE COMMENT) N/A 03/11/2010 >EGD with small bowel, gastric, and esophageal biopsies. ??? TOTAL KNEE ARTHROPLASTY Left 09/03/2011 partial total knee CURRENT MEDICATIONS Current Outpatient Medications Medication Sig Dispense Refill ??? levothyroxine (SYNTHROID, LEVOTHROID) 112 mcg tablet Take 1 tablet (112 mcg total) by mouth daily. Take 2 extra tabs/week during 90 tablet 3 ??? metFORMIN XR (GLUCOPHAGE-XR) 500 mg 24 hr tablet Take 2 tablets (1,000 mg total) by mouth 2 (two) times a day. 360 tablet 3 ??? ondansetron ODT (ZOFRAN-ODT) [address] 4 mg under the tongue. PRN ??? eletriptan (RELPAX) 40 mg tablet Treat with eletriptan (Relpax) 40 mg at onset of severe headache. May repeat one time after 2 hours if needed. Limit the use to no more than 9 days a month (twice aweek). (Patient taking differently: Treat with eletriptan (Relpax) 40 mg at onset of severe headache. May repeat one time after 2 hours if needed. Limit the use to no more than 9 days a month (twice a week). PRN) 12 tablet 3 ??? levothyroxine (SYNTHROID, LEVOTHROID) 100 mcg tablet Alternates with 112 mcg ??? sertraline (ZOLOFT) 25 mg tablet Take 1 tablet (25 mg total) by mouth daily. Take 1 tablet (25 mg total) by mouth daily for the fist week. Can increase to 50 mg daily after one week. 30 tablet 0 ??? spironolactone (ALDACTONE) 50 mg tablet Take 1 tablet (50 mg total) by mouth 2 (two) times a day. (Patient not taking: No sig reported) 180 tablet 0 ??? TENS unit and electrodes (Cefaly) combo pack Acute treatment is for 60 minutes. Preventive treatment is 20 min per day. (Patient not taking: No sig reported) 1 each 0 No current facility-administered medications for this visit. PHYSICAL EXAMINATION OBJECTIVE Vitals: 07/24/21 1523 BP: 143/88 Pulse: 89 Constitutional Appearance: Normal appearance. Eyes Extraocular Movements: Extraocular movements intact. Pupils: Pupils are equal, round, and reactive to light. Musculoskeletal Legs: Neurological Mental Status: She is alert and oriented to person, place, and time. Motor: No weakness. Gait: Gait is intact. Comments: No weakness noted moving from seated to standing to ambulatory positions. Psychiatric Mood and Affect: Mood normal. Behavior: Behavior normal. Thought Content: Thought content normal. Judgment: Judgment normal. Comments: Very pleasant and polite today with good eye contact appropriate mood and mannerisms. DIAGNOSTICS --Imaging Reviewed: Diagnostics 07/17/2021 EXAM: DX KNEE LEFT 4+ VIEWS ?? [...] / PLAN #1 History Of Falling #2 Pain Back Thoracic #3 Pain Knee Left #4 Return To Work Status Examination Felecia Cardenas [...] of right sided thoracic back pain that appeared to be myofascial and back to baseline at last visit and was placed at [facility]. No current symptoms. 3. Pain Left Knee Left knee pain has improved since last visit working with physical therapy and reassuring recent visit with Orthopedics after new MRI completed noting no structural damage other than chondral fissuring. Discuss that this chondral fissuring is most likely from her background hx of Left knee injury dating back to 2012, that was repaired by Dr. Armendariz from [facility]. Noted crepitus discussed as being more related to chondral fissuring yet no instability noted when seen by Orthopedics and MRI confirms structural integrity. Discussed benefits of home daily physical exercise and stretching for prevention although did discuss increased chance for arthritis post [address]. [address] at [facility] today without impairment per [place] administrative Rules reviewed today with patient for her 03/09/2021 DOI and also given information for [place] department of Labor in regards to follow-up for her or significant 2013 worker's comp injury that is more likely to have caused her chondral fissuring. 4. Status Post Left Knee Surgery 09/03/2012 ([facility] [place]) 5. Status Post Left Knee Surgery 05/07/2016 ([place], [place]) 5. Return to Work Status Examination She is off-work due to what appears to be released from workplace due to COVID vaccine policy per [facility]. 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 Updated Work status: Return to full duty-no restrictions. The patient indicates understanding of these issues and agrees with the plan. 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 Work restrictions completed today and in Letters section with copy given/mailed to patient. MMI: 07/24/21 for knee, 06/12/21 for back (0% impairment) PPD: 0% for knee. Follow-up on an as-needed only basis with Occupational Medicine and Orthopedic surgery. EDUCATION We discussed the diagnosis and treatment plan in detail. The patient expressed understanding of the content. No apparent learning barriers were identified. A total of 35 minutes was spent today in history, examination, review of his chart, counseling education and coordination of care. RCYCLE TECHNICIAN documented in this encounter Plan of Treatment Upcoming Encounters Date Type Specialty Care Team Description 04/22/2022 Appointment Laboratory Medicine Meryl Julio M.D. [facility] [place], [place] [address] (Wo rk) 04/29/2022 Office Visit Endocrinology Meryl Julio M .D. [facility] [place], [place] [address] (Wo rk) documented as of this encounter Visit Diagnoses Diagnosis History Of Falling - Primary Pain Back Thoracic Pain Knee Left Return To Work Status Examination documented in this encounter Care Teams Oracle Ebs Consultant Relationship Specialty Start Date End Date Jerry Patterson M.D. PCP - General Family Medicine 05/06/[address] [place] [phone] documented as of this encounter
--- OUTSIDE RECORDS SUMMARY | 2022-03-06 07:04 | XMS_ITS | Encounter Summary ---
:1995 Author Organization [facility] Address [address] [place] [address] Care Team Providers Name Role Phone Jerry Patterson M.D. Primary Care Provider Reason for Referral Outpatient (Routine) - Authorized Specialty Diagnoses / Procedures Referred By Contact Refer red To Contact Sleep Medicine Diagnoses Obstructive Sleep Apnea Adult Restless Leg Syndrome Allison Collins M.D. [address] [phone] Referral ID Status Reason Start Date Expiration Date Visits V isits Requested Authorized [id number] Authorized 08/30/2021 08/30/2022 1 1 Reason for Visit Reason Comments Consult PSG in 2016 In [place], restar cathy cpap usage. Outpatient (Routine) - Closed Specialty Diagnoses / Procedures Referred By Contact Refer red To Contact Sleep Medicine Diagnoses Obstructive Sleep Apnea Adult Jerry Patterson M.D. [facility] [address] [place] [address] Referral ID Status Reason Start Date Expiration Date Visits V isits Requested Authorized [id number] Closed Specialty 01/23/2021 01/23/2022 1 1 Services Required Encounter Details Date Type Department Care Team Description 08/30/2021 Comprehensive Visit Department of Sleep Abby Collins Obstructive Sleep Apnea Adult (Primary Dx); Medicine eliana Nicholson M.D. 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 - 08/30/2021 1:00 PM CDT # We will send an updated CPAP prescription to [facility] in [place]. I adjusted your CPAP pressure from 5-8 to 5-7 cmH2O. # Please stop at lab to have your ferritin level checked # Try to keep your head elevated with sleep # Please avoid driving when drowsy. # Follow-up in 1 year documented in this encounter Progress Notes Kim Mtz RPSGT - 08/30/2021 1:00 PM CDT Tech did a mask fitting with patient and tried her on the Small cushion, small frame Airfit F30i mask and the small Airfit N30 mask. She was going to try both of these masks out at home and let the [place] store know which one she would like to order. documented in this encounter Consult Notes Allison Collins M.D. - 08/30/2021 1:00 PM CDT SUBJECTIVE REFERRING PROVIDER: Jerry Patterson M.D. [address] [place] [phone] CHIEF COMPLAINT/REASON FOR CONSULT Consultation to establish care for obstructive sleep apnea. History was obtained from the patient and medical records. HISTORY OF PRESENT ILLNESS Ms. Cardenas is a 26 y.o. female who presents to Sleep Medicine Clinic today to establish care for obstructive sleep apnea. She reports that she was diagnosed in 2015 and was prescribed CPAP at that timewhich she used regularly up until recently as she has been experiencing aerophagia. She does notice benefit with regular use of CPAP, and she would like to continue use. She is here today to establish care. She reports that she typically goes to bed somewhere between 10 30 and 11:00 p.m.. She denies any difficulty falling or staying asleep, although recently due to she has been noticing that shewill wake more frequently to go to the bathroom, up to twice each night. She is typically able to fall back to sleep without any difficulty at this time. She is generally up for the day around 7:30 a.m.. 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 She does not take daytime naps. She does not believe that she is snoring with use of her CPAP. She denies the sensation of suffocation with use of her CPAP. She has been experiencing aerophagia. She is currently using a nasal mask. Recently, she has been trying to keep the head of her bed elevated with sleep. She tries to avoid eating prior to bed, although would have a snack after work before she would go to bed when she was working night shifts. She has been experiencing symptoms of restless leg syndrome, which is a new symptom since becoming . She reports that her covers are messy when she wakes in the morning. She also has a restlesssense of discomfort which prevents her from falling asleep on occasion. She does not kick her legs while she is sleeping. She has had one episode, in the last year or two, where she woke from sleep, sat up in bed, yelled at her , and then went back to sleep. She otherwise denies sleep walking or dream enactment behavior. She denies hypnagogic or hypnopompic hallucinations. She denies sleep paralysis. 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 She drinks one caffeinated beverage each week. She denies the use of tobacco, alcohol, sleep aids, marijuana, or street drugs. [place] Score is 4/24. The following portions of the patient's history were reviewed and updated as appropriate: allergies,current medications, family history, medical history, social history, surgical history and problem list. Social History Tobacco Use Smoking status: Never Smoker Smokeless tobacco: Never Used FAMILY HISTORY Mom has MAGALIE. REVIEW OF SYSTEMS As above in the HPI. OBJECTIVE VITAL SIGNS Vitals: 08/30/21 1305 BP: 126/76 Pulse: 82 SpO2: 98% Weight: 102 kg Height: 169 cm PHYSICAL EXAMINATION General: No acute distress. Alert and oriented. ASSESSMENT / PLAN #1 Obstructive Sleep Apnea Adult #2 Restless Leg Syndrome #3 Deficiency Iron Ms. 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 She was diagnosed on a polysomnogram performed 03/02/2016 at [facility] in [place], [place] which showed an AHI of 2.3 per hour and RDI of 6.5 per hour. She return for an all night titration [id number]/30/2016 at which time she was titrated to a final CPAP pressure of 7 cmH2O. She has lost a significant amount of weight since this time, and her BMI today is 35.61 as compared to her BMI of 43.1 at the time of her original study. She is currently using auto CPAP 4-8 cmH2O which is adequately treating her obstructive sleep apnea as per her device download report. Due to aerophagia, I am adjusting her pressures today to auto CPAP 4 to 7 cmH2O and will plan to check her download report again in one week. I encouraged her to keep the head of her bed elevated. She is not taking any medication for reflux as she is . She will avoid eating prior to bedtime. An updated CPAP prescription was sentto the [facility] in [place]. I encouraged regular use of CPAP including daytime naps and travel. I discussed the risks of untreated obstructive sleep apnea. I encouraged her to stay up-to-date on maskchanges and to obtain regular replacement supplies. She notices benefit from regular CPAP use. She will avoid driving when drowsy. She has restless leg syndrome, and understands this is the most common movement disorder of . I am recommending a ferritin level. I encouraged her to double check that her vitamin contains iron. I encouraged her to avoid [id number] antihistamines, including diphenhydramine or doxylamine, as these may worsen restless leg syndrome. I will plan to see her back in one year, or sooner if she develops new or worsening symptoms. Thank you for involving me in the care of Ms. Cardenas. She was given an opportunity to ask questions,all questions have been answered. Allison Collins M.D. 40 minutes were spent with the patient, with greater than 50% of the time spent in counseling and coordination of care. documented in this encounter Plan of Treatment Upcoming Encounters Date Type Specialty Care Team Description 04/22/2022 Appointment Laboratory Medicine Meryl Julio M.D. [address] [place], [place] [address] ([facility] [facility]) 04/29/2022 Office Visit Endocrinology Meryl Julio M .D. [address] [place], [place] [address] ([place]) Scheduled Referrals Name Type Priority Associated Diagnoses Order S [facility] Sleep Medicine Outpatient Referral Routine Obstructive Sleep E xpected: office visit Apnea Adult 08/30/2022 (clinic) Restless Leg Syndrome (Appro ximate), Expires: 11/29/2022 documented as of this encounter Results Ferritin (08/30/2021 2:23 PM CDT) athologist Signature Ferritin, S 25 6 - 175 08/30/2021 [place] mcg/L 4:33 PM CDT Comment: Biotin has been identified by the [facility] as a potential interfering substance. ??Higher concentr ations of biotin may be found in multivitamins, hair/nail supple ments, and workout supplements. ??If the result does not [facility] clinical observations, repeat testing after patient refrains fr om the use of supplements for at least 12 hours. Specimen Anatomical Collection Method Collection Time Receive d Time (Source) Location / / Volume Laterality Blood (Blood, 08/30/2021 2:23 PM 08/31/19 3:52 Venous) CDT PM CDT Allison Collins M.D. LAB BLOOD ADD-ON Performing Organization Address City/State/ZIP Code Phon e Number [facility] [address] [place] [id number] [place] [address] System in [place] [address] [place] [address] documented in this encounter Visit Diagnoses Diagnosis Obstructive Sleep Apnea Adult - Primary Restless Leg Syndrome Deficiency Iron documented in this encounter Care Teams Association Executive Relationship Specialty Start Date End Date Jerry Patterson M.D. PCP - General Family Medicine 05/06/21 [address] [place] [address] documented as of this encounter
--- OUTSIDE RECORDS SUMMARY | 2022-03-06 07:04 | XMS_ITS | Encounter Summary ---
:1995 Author Organization [facility] Address [address] [place] [address] Care Team Providers Name Role Phone Jerry Patterson M.D. Primary Care Provider Reason for Visit Physical Therapy (Routine) - Authorized Specialty Diagnoses / Procedures Referred By Contact Refer red To Contact Diagnoses History Of Falling Pain Back Thoracic Pain Knee Left Jordan Chang III, [facility] Region Procedures PT Ongoing treatment Willy, M.P.H. [address] [place] [address] Referral ID Status Reason Start Date Expiration Date Visits V isits Requested Authorized [id number] Authorized 04/22/2021 05/24/2022 99 7 Encounter Details Date Type Department Care Team Description 07/04/2021 Clinical Support Department of Physical Flaquito Chang III, M.D., M.P.H. [address] [place] [phone] History Of Falling; Medicine and Jimbo Gallegos P.T., D.P.T. [address] [place] [phone] Pain Back Thoracic; Rehabilitation in Pain Knee Left [place], [place] [address] [place] [phone] Social History Tobacco Use Types Packs/Day [...] or relatives? How often do you attend sabianism or hinduism More than 4 time s per year 06/21/2021 services? Do you belong to any clubs or organizations Yes 06/21/2021 such as sabianism groups, unions, fraternal or athletic groups, or [...] at Date Recorded Female 06/21/2021 12:52 PM THERMODYNAMICIST documented as of this encounter Progress Notes Jimbo Gallegos P.Verenice., D.P.T. - 07/04/2021 1:[address] [facility] Physical Therapy Outpatient Treatment Note/Re-assessment Patient Name: Felecia Cardenas Referring Provider: Jordan Chang III, M.D., M.P.H. [address] [place] [address] Rehab Diagnosis: 1. History Of Falling 2. Pain Back Thoracic 3. 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 SUBJECTIVE: Pt was not able to attend PT last several weeks due to her COVID 19 related issues. Pt is scheduled to see her Ortho provider today to address her ongoing Lt knee pain, which has not really improved since the onset. Pt still has significant difficulty with negotiating steps at home and at her work. Regarding her neck and mid back, her pain has significantly improved to her baseline. Pt no longer feels significant tightness of her neck. Pain: Location: Rt side neck and shoulder, 08/01; Lt knee, 08/01 OBJECTIVE: Contact monitoring: Therapist was wearing the following PPE throughout entire session: surgical mask Patient was wearing a mask during therapy session: yes Interventions/treatment provided 07/04/2021: - Discussion on current status with active warm up on NuStep - Therapeutic exercises NuStep L6 - arms/legs - 5 minutes LAQ 30lb (100 to 60 deg only due to PF jt pain and cavitation) 20 reps Leg press L2 10 reps 2 sets Band walk 10 steps 4 reps Heel raise 10 reps 2 sets Hip abduction 10 reps 2 sets band around knees Not today Hip extension 10 reps 2 sets band around knees Gastroc stretching on tilt board Gastroc, hamstring, and hip flexor stretching on stairs Green band: Horizontal rowing Shoulder extension Horizontal abduction Kinesiotaping to left knee to assist with support with bending/squatting Education in scapular/shoulder setting for posture Education in use of massage roller for self massage/stretching to left hamstring, ITB, quadriceps, and calf. 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 Pt's neck and mid back pain has significantly improved per her subjective. Her LT knee pain is still bothersome, which could be IT band and PF jt irritation. Pt will discuss further plan of care with Ortho today. Pt would continue to benefit from skilled PT to improve her Lt knee pain. Plan ofcare and goals discussed and agreed upon by the patient. Anticipate the patient will do well. No barriers to treatment noted. Thank you for referral. Patient response to treatment: good PLAN: Frequency/Duration: 2/wk x 8 wks Plan of Care End Date: PT Next Certification Date: 08/01/21 Plan for Next Session:Lt Knee stabilization exercises Time Spent with Patient Therapeutic Exercise (min): 25 min Manual Therapy (min): 15 min Time Calculation Total Timed Units (min): 40 min Total Treatment Time (min): 40 min Electronically signed by: Jimbo Gallegos P.T., D.P.T. 07/04/21 1:40 PM THERMODYNAMICIST Department of Physical Medicine and Rehabilitation in [address] [address] Dept: [phone] MODYNAMICIST documented in this encounter Plan of Treatment Upcoming Encounters Date Type Specialty Care Team Description 04/22/2022 Appointment Laboratory Medicine Meryl Julio M.D. [address] [place], [place] [address] (Wo rk) 04/29/2022 Office Visit Endocrinology Meryl Julio M .D. [address] [place], [place] [address] (Wo rk) documented as of this encounter Visit Diagnoses Diagnosis History Of Falling Pain Back Thoracic Pain Knee Left documented in this encounter Care Teams Gas Singer Relationship Specialty Start Date End Date Jerry Patterson M.D. PCP - General Family Medicine 05/06/21 [address] [place] [phone] documented as of this encounter
--- OUTSIDE RECORDS SUMMARY | 2022-03-06 07:04 | XMS_ITS | Encounter Summary ---
:1995 Author Organization [facility] Address [address] [place] [address] Care Team Providers Name Role Phone Jerry Patterson M.D. Primary Care Provider Encounter Details Date Type Department Care Team Description 07/02/2021 Orders Only [facility] Carola Patterson M.D. [address] [place], [place] [phone] (Wo rk) Social History Tobacco Use Types Packs/Day Years [...] How often do you attend restorationism or moravian More than 4 time s per year [...] to pay for the very basics like indoo.[email or web address] hat hard 06/21/2021 food, housing, medical care, [...] at Date Recorded Female 06/21/2021 12:52 PM MEDICAL BILLER CODER documented as of this encounter Plan of Treatment Upcoming Encounters Date Type Specialty Care Team Description 04/22/2022 Appointment Laboratory Medicine Meryl Julio M.D. [address] [place] [address] (Wo rk) 04/29/2022 Office Visit Endocrinology Meryl Julio M .D. [address] [place] [address] (Wo rk) documented as of this encounter Visit Diagnoses Not on filedocumented in this encounter Care Teams Clipper And Turner Relationship Specialty Start Date End Date Jerry Patterson M.D. PCP - General Family Medicine 05/06/[address] [place] [phone] documented as of this encounter
--- OUTSIDE RECORDS SUMMARY | 2022-03-06 07:04 | XMS_ITS | Encounter Summary ---
:1995 Author Organization [facility] Address [address] [place] [address] Care Team Providers Name Role Phone Jerry Patterson M.D. Primary Care Provider Reason for Referral MRI/CAT/PET Scan (Routine) - Closed Specialty Diagnoses / Procedures Referred By Contact Refer red To Contact Radiology Diagnoses Arthroscopy Knee Status Post Lanre Tejeda D.O. [facility] Region Procedures MR Knee Left without IV Contrast OK MRI LWR EXT JOINT WO CNTRST [address] [place] [phone] Referral ID Status Reason Start Date Expiration Date Visits Requ ested Visits Authorized [id number] Closed 07/04/2021 07/04/2022 1 1 ENT SERVICES COUNSELOR Reason for Visit MRI/CAT/PET Scan (Routine) - Closed Specialty Diagnoses / Procedures Referred By Contact Refer red To Contact Radiology Diagnoses Arthroscopy Knee Status Post [facility] Region Procedures MR Knee Left without IV Contrast OK MRI LWR EXT JOINT WO CNTRST [address] [place] [address] Referral ID Status Reason Start Date Expiration Date Visits Requ ested Visits Authorized [id number] Closed 07/04/2021 07/04/2022 1 1 Encounter Details Date Type Department Care Team Description 07/17/2021 Hospital Encounter Department of Lanre Tejeda copy Knee Radiology, Marta Steward D.O. Status Post [facility], in [address] [place], [place] [address] [facility] [address] [place], [place] [phone] (Work) [phone] Social History Tobacco Use Types Packs/Day Years [...] or relatives? How often do you attend episcopal or presybeterian More than 4 time s per year 06/21/2021 services? Do you belong to any clubs or organizations Yes 06/21/2021 such as episcopal groups, unions, fraternal or athletic groups, or [...] at Date Recorded Female 06/21/2021 12:52 PM STUDENT SERVICES COUNSELOR documented as of this encounter Medications at [...] mcg tablet levothyroxine Take 1 tablet (112 90 tablet 3 07/16/202104/2022 (SYNTHROID, LEVOTHROID) mcg total) by mouth 112 mcg tablet daily. Take 2 extra tabs/week during ondansetron ODT Place 4 mg under the [...] Appointment Laboratory Medicine Meryl Julio M.D. [address] [place], [place] [address] (Wo rk) 04/29/2022 Office Visit Endocrinology Meryl Julio M .D. [address] [place], [place] [address] (Hector rk) documented as of this encounter Procedures Procedure Name Priority Date/Time Associated Comments Diagnosis MR KNEE LEFT RAD - Routine 07/17/2021 2:27 Arthroscopy Knee Results for this WITHOUT IV (most inpatients PM STUDENT SERVICES COUNSELOR Status Post procedure a re in CONTRAST and all the results outpatients) section. documented in this encounter Results MR Knee Left without IV Contrast (07/17/2021 2:27 PM STUDENT SERVICES COUNSELOR) Anatomical Region Laterality Modality Lower Extremity, Knee, Musculoskeletal RST LOS, Left Magnetic Resonance Musculoskeletal ARZ LOS, Muskuloskeletal FLA LOS Specimen (Source) Anatomical Collection Method Collection Time Re ceived Time Location / / Volume Laterality 07/17/2021 2:37 PM STUDENT SERVICES COUNSELOR Impressions 07/17/2021 2:51 PM STUDENT SERVICES COUNSELOR 1. ??Status post prior MPFL for reconstr uction, without evidence of high-grade graft injury. 2. ??Intact cruciate and collateral liga ments. No meniscus tear. 3. ??Question subtle cartilage fissuring in the lateral patellar facet. No other focal hyaline cartilage abnormality. Narrative 07/17/2021 2:51 PM STUDENT SERVICES COUNSELOR EXAM: MR KNEE LEFT WITHOUT IV CONTRAST COMPARISON:Knee radiograph from [facility]: Medial meniscus: No tear Lateral meniscus: [...] hyaline cartilage abnormality. Lanre SRIVASTAVA MRI PROCEDURES documented in this encounter Visit Diagnoses Diagnosis Arthroscopy Knee Status Post documented in this encounter Care Teams Applied Technologist Relationship Specialty Start Date End Date Jerry Patterson M.D. PCP - General Family Medicine 05/06/21 [facility] [address] [place] [phone] documented as of this encounter
--- OUTSIDE RECORDS SUMMARY | 2022-03-06 07:04 | XMS_ITS | Encounter Summary ---
:1995 Author Organization [facility] Address [address] [place] [address] Care Team Providers Name Role Phone Jerry Patterson M.D. Primary Care Provider Reason for Visit Physical Therapy (Routine) - Authorized Specialty Diagnoses / Procedures Referred By Contact Refer red To Contact Diagnoses History Of Falling Pain Back Thoracic Pain Knee Left Jordan Chang III, [facility] Procedures PT Ongoing treatment Willy, M.P.H. [address] [place] [address] Referral ID Status Reason Start Date Expiration Date Visits V isits Requested Authorized [id number] Authorized 04/22/2021 05/24/2022 99 7 Encounter Details Date Type Department Care Team Description 07/17/2021 Clinical Support Department of Physical Flaquito Chang III, M.D., M.P.H. [address] [place] [phone] History Of Falling; Medicine and Yulia Woodward, AmyTDamian. [address] [place] [phone] Pain Back Thoracic; Rehabilitation in Pain Knee Left [place], [place] [address] [place] [address] Social History Tobacco Use Types Packs/Day [...] or relatives? How often do you attend roman catholic or anabaptist More than 4 time s per year 06/21/2021 services? Do you belong to any clubs or organizations Yes 06/21/2021 such as roman catholic groups, unions, fraternal or athletic groups, or [...] at Date Recorded Female 06/21/2021 12:52 PM FBI INVESTIGATOR documented as of this encounter Progress Notes Yulia Woodward, P.T.Celina. - 07/17/2021 3:30 PM CST [facility] Physical Therapy Outpatient Treatment Note Patient Name: Felecia Cardenas Referring Provider: Jordan Chang III, M.D., M.P.H. [address] [place] [address] Rehab Diagnosis: 1. History Of Falling 2. Pain Back Thoracic 3. 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 SUBJECTIVE: Patient reports she has really been sick with a virus for the last 1-2 weeks. States she had an MRI today and left thigh was spasming during test. Still clicking and appears to be clicking sooner now with exercises and activities. Still noting tightness to left quadriceps and ITB effects her knee symptoms. Did take a tylenol before MRI, so rating left knee pain at 2-3/10 presently. Feels her neck andshoulder is improved. Still feels like her home exercises are beneficial for neck and shoulder symptoms. Feels pain is gradually improving. Recently found out that they are expecting a baby. Pain: Location: Rt side neck and shoulder, Improving Lt knee, 2-310 OBJECTIVE: Contact monitoring: Therapist was wearing the following PPE throughout entire session: surgical mask Patient was wearing a mask during therapy session: yes Interventions/treatment provided 07/17/2021: - Discussion on current status with active warm up on NuStep - Therapeutic exercises NuStep L6 - arms/legs - 5 minutes LAQ 30lb (100 to 60 deg only due to PF jt pain and cavitation) 20 reps - clicking of Lt PF jt Leg press L2 10 reps 2 sets Band walk 10 steps 4 reps Heel raise 10 reps 2 sets on steps Hip abduction 10 reps 2 sets standing Supported squat 10 reps 2 sets - clicking of Lt PF jt - limited to comfort -Kinesiotaping to left knee to assist with support with bending/squatting and avoid clicking I strip around knee/patella I from lat to med of Lt PF jt I' along left ITB -Manual therapy Soft tissue mobilizations to left knee, quadriceps, and ITB with patient in sitting and in supine positions Patella stretching NOT TODAY: Hip extension 10 reps 2 sets band around knees Gastroc stretching on tilt board Gastroc, hamstring, and hip flexor stretching on stairs Green band: Horizontal rowing Shoulder extension Horizontal abduction IT band stretching wall 2 reps Lt Hip flexor stretch step 2 reps B Hamstring stretch steps 2 reps B Wall slide limited range 10 reps SLS 20s 2 reps Double leg stance 20s 2 reps on reverse lesa IT band foam roller review Home exercise program: 05/16/21: HEP2GO: Gastroc, hamstring, [...] GOALS: PT Goal #1: 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 Focus today on strengthening and manual therapy. Tolerated active warm up on NuStep without increase in knee symptoms. Noted limitation in left knee mobility with open chain strengthening exercises and weight bearing functional activities today due to pain and instability/ clicking to left knee. Use of manual therapy to left knee, quadriceps, and ITB to assist with pain and to improve mobility. Good reduction in muscle tightness and decrease in pain following manual stretching and soft tissue mobilizations. Use of Kinesio taping to left knee and ITB to assist with support and stability with walking and squatting/bending activities. Patient maintains good understanding of removal of tape if becomes itchy or irritated. Patient reported good decrease in pain and improved mobility following PT session. We will continue to focus on symptom free LE stabilization exercises. Patient response to treatment: good PLAN: Frequency/Duration: 2/wk x 8 wks Plan of Care End Date: PT Next Certification Date: 08/01/21 Plan for Next Session:Lt Knee stabilization exercises Time Spent with Patient Therapeutic Exercise (min): 25 min Manual Therapy (min): 20 min Time Calculation Total Timed Units (min): 45 min Total Treatment Time (min): 45 min Electronically signed by: Amy CortezTAnup 07/17/21 4:50 PM FBI INVESTIGATOR Department of Physical Medicine and Rehabilitation in [address] [address] Dept: [phone] INVESTIGATOR documented in this encounter Plan of Treatment Upcoming Encounters Date Type Specialty Care Team Description 04/22/2022 Appointment Laboratory Medicine Meryl Julio M.D. [address] [place], [place] [address] (Wo rk) 04/29/2022 Office Visit Endocrinology Meryl Julio M .D. [address] [place], [place] [address] (Wo rk) documented as of this encounter Visit Diagnoses Diagnosis History Of Falling Pain Back Thoracic Pain Knee Left documented in this encounter Care Teams Livestock Exhibitor Relationship Specialty Start Date End Date Jerry Patterson M.D. PCP - General Family Medicine 05/06/21 [facility] [address] [place] [phone] documented as of this encounter
--- OUTSIDE RECORDS SUMMARY | 2022-03-06 07:04 | XMS_ITS | Encounter Summary ---
:1995 Author Organization [facility] Address [address] [place] [address] Care Team Providers Name Role Phone Jerry Patterson M.D. Primary Care Provider Encounter Details Date Type Department Care Team Description 07/16/2021 Orders Only Division of Sam, Hypothyroidism Primary Endocrinology in Willy Sosa (Primary Dx) [place], [place] [address] [facility] [address] [place] [phone] [phone] Social History Tobacco Use Types Packs/Day Years [...] or relatives? How often do you attend scientology or faith More than 4 time s per year 06/21/2021 services? Do you belong to any clubs or organizations Yes 06/21/2021 such as scientology groups, unions, fraternal or athletic groups, or [...] at Date Recorded Female 06/21/2021 12:52 PM PAY STATION DEPARTMENT MANAGER documented as of this encounter Plan of Treatment Upcoming Encounters Date Type Specialty Care Team Description 04/22/2022 Appointment Laboratory Medicine Meryl Julio M.D. [address] [place] [address] (Hector martin) 04/29/2022 Office Visit Endocrinology Meryl Julio M .D. [address] [place], [place] [address] (Hector martin) documented as of this encounter Results S-TSH (Thyroid-Stimulating Hormone - Sensitive) (08/14/2021 12:03 PM CDT) P athologist Signature TSH, Sensitive 1.2 0.3 - 4.2 08/14/2021 MKTO mIU/L 5:22 PM CDT Specimen Anatomical Collection Method Collection Time Receive d Time (Source) Location / / Volume Laterality Blood (Blood, 08/14/2021 12:03 08/14/2021 4:49 Venous) PM CDT PM CDT Ian Vargas M.D. LAB BLOOD ADD-ON Performing Organization Address City/State/ZIP Code Phon e Number [facility] [address] [place] [phone] [place] [address] (ABNORMAL) T4 (Thyroxine), Free (08/14/2021 12:03 PM CDT) P athologist Signature T4 1.9 (H) 0.9 - 1.7 08/14/2021 MKTO (Thyroxine), ng/dL 5:22 PM CDT Free, P Comment: Biotin has been identified by the landen lopes as a potential interfering substance. ??Higher concentr ations of biotin may be found in multivitamins, hair/nail supple ments, and workout supplements. ??If the result does not ma [facility] clinical observations, repeat testing after patient refrains fr om the use of supplements for at least 12 hours. Specimen Anatomical Collection Method Collection Time Receive d Time (Source) Location / / Volume Laterality Blood (Blood, 08/14/2021 12:03 08/14/2021 4:49 Venous) PM CDT PM CDT Ian Vargas M.D. LAB BLOOD ADD-ON Performing Organization Address City/State/ZIP Code Phon e Number [facility]- [address] [place] [phone] [place] [address] [address] documented in this encounter Visit Diagnoses Diagnosis Hypothyroidism Primary - Primary documented in this encounter Care Teams Rn Surgical Pcu Relationship Specialty Start Date End Date Jerry Patterson M.D. PCP - General Family Medicine 05/06/21 [address] [place] [phone] documented as of this encounter
--- OUTSIDE RECORDS SUMMARY | 2022-03-06 07:04 | XMS_ITS | Encounter Summary ---
:1995 Author Organization [facility] Address [address] [place] [address] Care Team Providers Name Role Phone Jerry Patterson M.D. Primary Care Provider Reason for Visit Physical Therapy (Routine) - Authorized Specialty Diagnoses / Procedures Referred By Contact Refer red To Contact Diagnoses History Of Falling Pain Back Thoracic Pain Knee Left Jordan Chang III, [facility] Region Procedures PT Ongoing treatment Willy, M.P.H. [address] [place] [address] Referral ID Status Reason Start Date Expiration Date Visits V isits Requested Authorized [id number] Authorized 04/22/2021 05/24/2022 99 7 Encounter Details Date Type Department Care Team Description 07/08/2021 Clinical Support Department of Physical Flaquito Chang III, M.D., M.P.H. [address] [place] [phone] History Of Falling; Medicine and Jimbo Gallegos P.T., D.P.T. [address] [place] [phone] Pain Back Thoracic; Rehabilitation in Pain Knee Left [place], [place] [address] [place] [phone] Social History Tobacco Use Types Packs/Day [...] or relatives? How often do you attend uatsdin or voodoo More than 4 time s per year 06/21/2021 services? Do you belong to any clubs or organizations Yes 06/21/2021 such as uatsdin groups, unions, fraternal or athletic groups, or [...] at Date Recorded Female 06/21/2021 12:52 PM ORACLE WMS CONSULTANT documented as of this encounter Progress Notes Jimbo Gallegos P.T., D.P.T. - 07/08/2021 1:00 PM CST [facility] Physical Therapy Outpatient Treatment Note Patient Name: Felecia Cardenas Referring Provider: Jordan Chang III, M.D., M.P.H. [address] [place] [address] Rehab Diagnosis: 1. History Of Falling 2. Pain Back Thoracic 3. 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 SUBJECTIVE: Pt had her Ortho visit and she is scheduled for Lt knee MR on 07/17/21. Pt denies any question or concern regarding her home exercise program. Pt does not believe STM was helpful to address her Lt IT band pain after her last PT session. Pain: Location: Rt side neck and shoulder, 08/01; Lt knee, 08/01 OBJECTIVE: Contact monitoring: Therapist was wearing the following PPE throughout entire session: surgical mask Patient was wearing a mask during therapy session: yes Interventions/treatment provided 07/08/2021: - Discussion on current status with active [...] Hip abduction 10 reps 2 sets standing Taping from lat to med of Lt PF jt I strip Supported squat 10 reps 2 sets - clicking of Lt PF jt IT band stretching wall 2 reps Lt Hip flexor stretch step 2 reps B Hamstring stretch steps 2 reps B Wall slide limited range 10 reps SLS 20s 2 reps Double leg stance 20s 2 reps on reverse lesa IT band foam roller review Manual therapy Soft tissue mobilizations to Lt distal IT band PF jt inf mobilization grade III with full flexion PF jt Lat to med mobilization grade III knee extension Not today Hip extension 10 reps 2 [...] to left hamstring, ITB, quadriceps, and calf. Home exercise program: 05/16/21: HEP2GO: Gastroc, hamstring, [...] GOALS: PT Goal #1: Pt will work blood coordinator with less than 2/10 Lt knee pain in 6 weeks PT Goal #1 Date: 04/22/2021 PT Goal #2: Pt will be independent with her home exercise program in 4 weeks PT Goal #2 Date: 04/22/2021 PT Goal #3: Pt will reach overhead with her Rt UE with less than 2/10 shoulder pain in 6 weeks PT Goal #3 Date: 04/22/2021 ASSESSMENT: Gently progressed her Lt LE stabilization exercises. Noticed some clicking sound of her Lt PF jt with knee flexion with weight bearing as indicated above. Horizontal taping did not help her Lt PF jt sound/pain. Will continue to focus on symptom free LE [...] Electronically signed by: Jimbo Gallegos P.T., D.P.T. 07/08/21 1:35 PM ORACLE WMS CONSULTANT Department of Physical Medicine and Rehabilitation in [address] [phone] Dept: [phone] LE WMS CONSULTANT documented in this encounter Plan of Treatment Upcoming Encounters Date Type Specialty Care Team Description 04/22/2022 Appointment Laboratory Medicine Meryl Julio M.D. [address] [place], [place] [address] (Wo rk) 04/29/2022 Office Visit Endocrinology Meryl Julio M .D. [address] [place], [place] [address] (Wo rk) documented as of this encounter Visit Diagnoses Diagnosis History Of Falling Pain Back Thoracic Pain Knee Left documented in this encounter Care Teams Spa Therapist Relationship Specialty Start Date End Date Jerry Patterson M.D. PCP - General Family Medicine 05/06/[address] [place] [phone] documented as of this encounter
--- OUTSIDE RECORDS SUMMARY | 2022-03-06 07:04 | XMS_ITS | Encounter Summary ---
:1995 Author Organization [facility] Address [address] [place] [address] Care Team Providers Name Role Phone Jerry Patterson M.D. Primary Care Provider Encounter Details Date Type Department Care Team Description 08/14/2021 Hospital Encounter Department of Jerry Patterson Encount er For Screening For Respiratory Tuberculosis; Laboratory Medicine Willy Hypothyroidism Primary in [facility] [address] [place], [place] [address] [address] [place], [place] [phone] (Work) [phone] Social History Tobacco Use Types Packs/Day Years [...] How often do you attend scientology or restorationism More than 4 time s [...] at Date Recorded Female 06/21/2021 12:52 PM SENIOR INTERNET SALES CONSULTANT documented as of this encounter Medications at [...] days a month (twice a week). levothyroxine Take 1 tablet (112 90 tablet [...] 04/22/2022 Appointment Laboratory Medicine Meryl Julio M.D. [address] [place] [address] (Wo rk) 04/29/2022 Office Visit Endocrinology Meryl Julio M .D. [address] [place], [place] [address] (Wo rk) documented as of this encounter Procedures Procedure Name Priority Date/Time Associated Diagnosis Comme nts QUANTIFERON-TB Routine 08/14/2021 12:03 Encounter For Screenin g Results for this GOLD PLUS, B PM CDT For Respiratory procedure ar e in Tuberculosis the results section. THYROID-STIMULATIN Routine 08/14/2021 12:03 Hypothyroidism Key stanley Results for this G PM CDT procedure are i n HORMONE-SENSITIVE the result s (S-TSH) section. T4 (THYROXINE), Routine 08/14/2021 12:03 Hypothyroidism Primar y Results for this FREE, S PM CDT procedure are i n the results section. documented in this encounter Results S-TSH (Thyroid-Stimulating Hormone - Sensitive) (08/14/2021 12:03 PM CDT) P athologist Signature TSH, Sensitive 1.2 0.3 - 4.2 08/14/2021 [facility] mIU/L 5:22 PM CDT Specimen Anatomical Collection Method Collection Time Receive d Time (Source) Location / / Volume Laterality Blood (Blood, 08/14/2021 12:03 08/14/2021 4:49 Venous) PM CDT PM CDT Ian Vargas M.D. LAB BLOOD ADD-ON Performing Organization Address City/State/ZIP Code Phon e Number [facility]- [address] [place] [address] [place] [address] System [address] (ABNORMAL) T4 (Thyroxine), Free (08/14/2021 12:03 PM CDT) athologist Signature T4 1.9 (H) 0.9 - [...] Organization Address City/State/ZIP Code Phon e Number [facility]- [address] [place] [address] [place] [address] System [address] QuantiFERON-Tb Gold Plus, Blood (08/14/2021 12:03 PM CDT) athologist Signature QuantiFERON-TB Negative Negative 08/16/2021 [facility] Gold Plus 12:23 PM CDT Result Comment: No interferon-gamma response to M. tuber culosis antigens was detected. Latent infection with M. tuberculosis is unlikely. A single ne gative result does not exclude infection with M. tuber culosis. In patients at high risk for M.tuberculo sis infection, a second test should be considered in ac cordance with the 2017 ATS/IDSA/CDC Clinical Prac deniz Guidelines for Diagnosis of Tuberculosis in Adults and Children [Nievesn DM et. al. Clin. Infect. Dis. 2017;64(2):111-115]. The reference range for the 'TB1 Ag kristen s Nil Result' and 'TB2 Ag minus Nil Result' is an Inte rferon-gamma level <0.35 IU/mL. TB1 Ag minus Nil Result 0.00 IU/mL 08/16/2021 12:23 PM CDT [facility] TB2 Ag minus Nil Result 0.00 IU/mL 08/16/2021 12:23 PM CDT [facility] Mitogen minus Nil Result >10.00 IU/mL 08/16/2021 12:2 3 PM CDT [facility] Nil Result 0.01 IU/mL 08/16/2021 12:23 PM [facility]T [facility] Specimen Anatomical Collection Method Collection Time Receive d Time (Source) Location / / Volume Laterality Blood (Blood, 08/14/2021 12:03 08/16/2021 7:12 Venous) PM CDT AM CDT Narrative [facility] - 08/16/2021 12:23 PM CDT Specimen Information: Specimen ID: [id number] Specimen Type: Blood Specimen Collection Start Date: 08/15/19 12:03 PM Specimen Received Date: 08/16/2021 ??7:1 2 AM Specimen ID: [id number] Specimen Type: Blood Specimen Collection Start Date: 08/15/19 12:03 PM Specimen Received Date: 08/16/2021 ??7:1 2 AM Specimen ID: [id number] Specimen Type: Blood Specimen Collection Start Date: 08/15/19 12:03 PM Specimen Received Date: 08/16/2021 ??7:1 2 AM Specimen ID: [id number] Specimen Type: Blood Specimen Collection Start Date: 08/15/19 12:03 PM Specimen Received Date: 08/16/2021 ??7:1 2 AM Jerry Patterson M.D. LAB MICROBIOLOGY - BLOOD ORD ERABLES Performing Organization Address City/State/ZIP Code Phon e Number [facility] [address] [place] [address] [place] [address] CENTER [facility] [place] [address] Laboratory Medicine and Pathology [address] [place] documented in this encounter Visit Diagnoses Diagnosis Encounter For Screening For Respiratory Tuberculosis Hypothyroidism Primary documented in this encounter Care Teams Payloader Machine Operator Relationship Specialty Start Date End Date Jerry Patterson M.D. PCP - General Family Medicine 05/06/21 [address] [place] [phone] documented as of this encounter
--- OUTSIDE RECORDS SUMMARY | 2022-03-06 07:05 | XMS_ITS | Encounter Summary ---
:1995 Author Organization [facility] Address [address] [place] [address] Care Team Providers Name Role Phone Jerry Patterson M.D. Primary Care Provider Reason for Visit Reason Onset Date Comments Testing For Upper Respiratory Virus Symptoms 05/29/2021 Encounter Details Date Type Department Care Team Description 05/29/2021 External Outreach Department of Family Solitario, Braulio Almonte, Co ntact With And (Suspected) Exposure To COVID-19; [facility] Upper Respiratory [place], [place] [address] [facility] [address] [place] [address] Social History Tobacco Use Types Packs/Day Years [...] How often do you attend restorationism or bahai More than 4 time s [...] slept in a care home (including now)? Sex Assigned at Date Recorded Female 06/21/2021 12:52 PM SENIOR BUSINESS ARCHITECT documented as of this encounter Progress Notes Ashley Lundberg L.P.N. - 05/29/2021 9:45 AM CST Encounter created for symptomatic infectious disease screening with possible COVID, Influenza, RSV, and/or Group A Strep testing. OR BUSINESS ARCHITECT documented in this encounter Plan of Treatment Upcoming Encounters Date Type Specialty Care Team Description 04/22/2022 Appointment Laboratory Medicine Meryl Julio M.D. [address] [place] [address] (Hector martin) 04/29/2022 Office Visit Endocrinology Meryl Julio M .D. [facility] [place], [place] [address] (Hector martin) documented as of this encounter Procedures Procedure Name Priority Date/Time Associated Diagnosis Comme nts INFLUENZA A/B AND Routine 05/29/2021 3:44 PM Infection Upper R esults for this RSV, PCR, VARIES SENIOR BUSINESS ARCHITECT Respiratory procedure a re in the results section. SARS CORONAVIRUS-2 Routine 05/29/2021 3:44 PM Contact With And Results for this RNA, V SENIOR BUSINESS ARCHITECT (Suspected) Exposure procedu re are in To COVID-19 the results section. documented in this encounter Results Influenza A/B and RSV, PCR, Varies (05/29/2021 3:44 PM SENIOR BUSINESS ARCHITECT) [facility] [place] Method Time Signature Influenza A/B Swab, 06/02/2021 DTL and RSV, Nasopharynx 3:37 PM SENIOR BUSINESS ARCHITECT Source Influenza A, Undetected Undetected 06/02/2021 DTL PCR 3:37 PM SENIOR BUSINESS ARCHITECT Comment: Influenza A RNA absent. Influenza B, PCR Undetected Undetected 06/02/2021 3:37 PM CS T DTL Comment: Influenza B RNA absent. Respiratory Syncytial Virus, PCR Undetected Undetected 01/2022 3:37 PM SENIOR BUSINESS ARCHITECT DTL Comment: RSV RNA absent. ----ADDITIONAL INFORMATION---- This test has been modified from the man ufacturer's instructions. Its performance characteristics were determi jose l by [facility] in a manner consistent with CLIA requirements. This test has not been cleared or approved by the U.S. Food and Drug Administration . Specimen Anatomical Collection Method Collection Time Receive d Time (Source) Location / / Volume Laterality Varies 05/29/2021 3:44 PM 2 (Nasopharynx) SENIOR BUSINESS ARCHITECT 10:06 PM SENIOR BUSINESS ARCHITECT Braulio eJrez M.D. LAB MICROBIOLOGY - GENERAL O RDERABLES Performing Organization Address City/State/ZIP Code Phon e Number [facility] - [address] [place], [place] [address] [facility] [place] [address] [facility] [address] SARS Coronavirus-2 RNA, V Symptomatic (05/29/2021 3:44 PM SENIOR BUSINESS ARCHITECT) [facility] [place] Method Time Signature SARS-CoV-2 Swab, 05/30/2021 [facility] Specimen Nasopharynx 11:18 AM Source SENIOR BUSINESS ARCHITECT SARS CoV-2 Undetected Undetected 05/30/2021 MKTO RNA, TMA 11:18 AM SENIOR BUSINESS ARCHITECT Comment: SARS-CoV-2 RNA absent. This result does not rule out COVID-19 in the patient, as the sensitivity of the test depends o n the timing of the specimen collection and the quality of the specim en. Result should be correlated with patient's history and clinical presentat ion. ----ADDITIONAL INFORMATION---- This molecular amplification test was pe rformed using the Aptima SARS-CoV-2 assay ([employer] on the Insightixs tem under emergency use authorization (EUA) by the U.S. Food and Drug Administ ration. Fact sheets for this EUA assay can be fo und at the following links: For Healthcare Providers: https://www.[employer] a.gov/media/881666/download For Patients: https://www.fda.gov/media/ 654714/download Specimen Anatomical Collection Method Collection Time Receive d Time (Source) Location / / Volume Laterality Varies 05/29/2021 3:44 PM 2 (Nasopharynx) SENIOR BUSINESS ARCHITECT 11:36 PM SENIOR BUSINESS ARCHITECT Braulio Jerez M.D. LAB MICROBIOLOGY - GENERAL O RDERABLES Performing Organization Address City/State/ZIP Code Phon e Number [facility]- [address] [place] [phone] [place] [address] [place] [address] System [address] documented in this encounter Visit Diagnoses Diagnosis Contact With And (Suspected) Exposure To COVID-19 Infection Upper Respiratory documented in this encounter Additional Health Concerns Infection Onset Date Last Indicated Resolved Time COVID19 Pending 05/29/2021 05/29/2021 05/30/2021 11:19 AM SENIOR BUSINESS ARCHITECT documented as of this encounter Care Teams Software Firmware Engineer Relationship Specialty Start Date End Date Jerry Patterson M.D. PCP - General Family Medicine 05/06/21 [address] [place] [phone] documented as of this encounter
--- OUTSIDE RECORDS SUMMARY | 2022-03-06 07:05 | XMS_ITS | Encounter Summary ---
:1995 Author Organization [facility] Address [address] [place] [address] Care Team Providers Name Role Phone Jerry Patterson M.D. Primary Care Provider Reason for Visit Reason Onset Date Comments Testing For Upper Respiratory Virus Symptoms 06/03/2021 Encounter Details Date Type Department Care Team Description 06/03/2021 External Outreach Department of Family Jerez, Braulio Almonte, Co ntact With And Medicine in [place] (Suspected) [address] To COVID-19 (Primary [address] [place] [address] Dx) [place] [address] Social History Tobacco Use Types Packs/Day [...] or relatives? How often do you attend pentecostal or christian More than 4 time s per year 06/21/2021 services? Do you belong to any clubs or organizations Yes 06/21/2021 such as pentecostal groups, unions, fraternal or athletic groups, or [...] or slept in a retirement (including now)? Sex Assigned at Date Recorded Female 06/21/2021 12:52 PM FLIGHT ATTENDANT RAMP documented as of this encounter Progress Notes Barbie Loera L.P.N. - 06/03/2021 8:13 AM CST Encounter created for symptomatic infectious disease screening with possible COVID, Influenza, RSV, and/or Group A Strep testing. HT ATTENDANT RAMP documented in this encounter Plan of Treatment Upcoming Encounters Date Type Specialty Care Team Description 04/22/2022 Appointment Laboratory Medicine Meryl Julio M.D. [facility] [place], [place] [address] (Hector martin) 04/29/2022 Office Visit Endocrinology Meryl Julio M .D. [address] [place], [place] [address] (Hector martin) documented as of this encounter Procedures Procedure Name Priority Date/Time Associated Diagnosis Comme nts SARS CORONAVIRUS-2 Routine 06/03/2021 3:38 PM Contact With And Results for this RNA, V FLIGHT ATTENDANT RAMP (Suspected) Exposure procedu re are in To COVID-19 the results section. documented in this encounter Results SARS Coronavirus-2 RNA, V Symptomatic (06/03/2021 3:38 PM FLIGHT ATTENDANT RAMP) [facility] Method Time Signature SARS-CoV-2 Swab, 06/04/2021 [facility] Specimen Nasopharynx 12:12 PM Source FLIGHT ATTENDANT RAMP SARS CoV-2 Undetected Undetected 06/04/2021 [facility] RNA, TMA 12:12 PM FLIGHT ATTENDANT RAMP Comment: SARS-CoV-2 RNA absent. This result does not rule out COVID-19 in the patient, as the sensitivity of the test depends o n the timing of the specimen collection and the quality of the specim en. Result should be correlated with patient's history and clinical presentat ion. ----ADDITIONAL INFORMATION---- This molecular amplification test was pe rformed using the Aptima SARS-CoV-2 assay ([employer] on the [employer] tem under emergency use authorization (EUA) by the U.S. Food and Drug Administ ration. Fact sheets for this EUA assay can be fo und at the following links: For Healthcare Providers: https://www.[employer] a.gov/media/374154/download For Patients: https://www.fda.gov/media/ 342138/download Specimen Anatomical Collection Method Collection Time Receive d Time (Source) Location / / Volume Laterality Varies 06/03/2021 3:38 PM 2 (Nasopharynx) FLIGHT ATTENDANT RAMP 10:25 PM FLIGHT ATTENDANT RAMP Braulio Jerez M.D. LAB MICROBIOLOGY - GENERAL O RDERAROBERTO Performing Organization Address City/State/ZIP Code Phon e Number [facility]- [address] [place] [address] [place] [address] System [address] documented in this encounter Visit Diagnoses Diagnosis Contact With And (Suspected) Exposure To COVID-19 - Primary documented in this encounter Additional Health Concerns Infection Onset Date Last Indicated Resolved Time COVID19 Pending 06/03/2021 06/03/2021 06/04/2021 12:12 PM FLIGHT ATTENDANT RAMP documented as of this encounter Care Teams Wrapper Hands Sprayer Relationship Specialty Start Date End Date Jerry Patterson M.D. PCP - General Family Medicine 05/06/21 [address] [place] [phone] documented as of this encounter
--- OUTSIDE RECORDS SUMMARY | 2022-03-06 07:05 | XMS_ITS | Encounter Summary ---
:1995 Author Organization [facility] Address [address] [place] [address] Care Team Providers Name Role Phone Jerry Patterson M.D. Primary Care Provider Reason for Referral Outpatient (Routine) - Authorized Specialty Diagnoses / Procedures Referred By Contact Refer red To Contact Orthopedic Surgery Diagnoses Pain [facility] [address] [place] [address] Referral ID Status Reason Start Date Expiration Date Visits V isits Requested Authorized [id number] Authorized 05/06/2021 05/06/2022 1 1 Scheduling Instructions Ortho internal referral panel order, iftikhar ging before Consult visit E BANDER Reason for Visit Appointment Request (Routine) - Closed Specialty Diagnoses / Procedures Referred By Contact Refer red To Contact Family Medicine Referral ID Status Reason Start Date Expiration Date Visits Requ ested Visits Authorized [id number] Closed 05/02/2021 05/02/2022 1 1 Encounter Details Date Type Department Care Team Description 05/06/2021 Office Visit Department of Shon Hernandez in Foot Left Medicine in Bin Sneed M.D. (Prima ry Dx) [place] [address] [place] [address] Social History Tobacco Use Types Packs/Day [...] How often do you attend episcopal or sikh More than 4 time s [...] to sleep or slept in a senior living (including now)? Sex Assigned at Date Recorded Female 06/21/2021 12:52 PM SHADE BANDER documented as of this encounter Last Filed Vital Signs Vital Sign Reading Time Taken Comments Blood Pressure 120/79 05/06/2021 4:37 PM SHADE BANDER Pulse 89 05/06/2021 4:37 PM SHADE BANDER Temperature 36.2 ??C (97.1 ??F) 05/06/2021 4:37 PM SHADE BANDER Respiratory Rate 16 05/06/2021 4:37 PM SHADE BANDER Oxygen Saturation - - Inhaled Oxygen Concentration - - Weight 94.3 kg (208 lb) 05/06/2021 4:37 PM SHADE BANDER Height - - Body Mass Index 32.8 04/16/2021 9:22 AM SHADE BANDER documented in this encounter Progress Notes Shon Corbin M.D. - 05/06/2021 4:30 PM CST Felecia Cardenas is a 25 y.o. female presents to clinic today for 2 concerns. She notes pain in her feet bilateral when she gets up in the morning or after she has been sitting for a while. She describes the pain diffusely on the bottom of her feet. The pain feeling is like a pins and needles feeling or like 1 year foot is asleep. The last 5-10 minutes after she is up in the morning or a few minutes during the day when she gets up. She also has noted that her feet are occasionally purplish. She is worried about circulation. This is only when she has been sitting for a while. 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 The purplish discoloration is not associated with the discomfort when she gets up. She does not have shortness ofbreath or any chest symptoms with this. She has had a history of bilateral knee surgery in the past. Patient's medical history includes hypothyroidism, PCOS and overweight. Current Outpatient Medications Medication Sig ??? levothyroxine (SYNTHROID, LEVOTHROID) 112 mcg tablet Take 1 tablet (112 mcg total) by mouth daily. ??? metFORMIN XR (GLUCOPHAGE-XR) 500 mg 24 hr tablet Take 2 tablets (1,000 mg total) by mouth 2 (two) times a day. ??? propranoloL (INDERAL LA) 80 mg 24 hr capsule TAKE 1 CAPSULE (80 MG TOTAL) BY MOUTH 2 (TWO) TIMESA DAY. ??? spironolactone (ALDACTONE) 50 mg tablet Take 1 tablet (50 mg total) by mouth 2 (two) times a day. ??? cyclobenzaprine (FLEXERIL) 5 mg tablet Take 1 tablet (5 mg total) by mouth at bedtime as needed for muscle spasms for up to 10 days. (Patient not taking: Reported on 05/06/2021 ) ??? eletriptan (RELPAX) 40 mg tablet Treat with eletriptan (Relpax) 40 mg at onset of severe headache. May repeat one time after 2 hours if needed. Limit the use to no more than 9 days a month (twice aweek). (Patient not taking: Reported on 05/06/2021 ) ??? levothyroxine (SYNTHROID, LEVOTHROID) 100 mcg tablet Alternates with 112 mcg ??? TENS unit and electrodes (Cefaly) combo pack Acute treatment is for 60 minutes. Preventive treatment is 20 min per day. (Patient not taking: Reported on 05/06/2021 ) ??? tiZANidine (ZANAFLEX) 4 mg capsule Take 1 capsule (4 mg total) by mouth 3 (three) times a day asneeded for muscle spasms. (Patient not taking: Reported on 05/06/2021 ) Allergies Allergen Reactions ??? Clindamycin Anaphylaxis ??? Gentamicin Anaphylaxis ??? Ciprofloxacin Anaphylaxis BP 120/79 Pulse 89 Temp 36.2 ??C (Temporal) Resp 16 Wt 94.3 kg BMI 32.80 kg/m?? PHYSICAL EXAM Alert pleasant patient. She moves easily from chair to the exam table. She is breathing comfortably.Pulses regular. Bilateral lower extremities show no edema or discoloration. Palpation of both feet showed no plantar tenderness at the heel or tenderness was stretching of the plantar fascia. Peripheral pulses are intact. Patient's feet are both warm and have good capillary refill. No varicose veins are noted. Bilateral calves are soft and nontender. Knees showed no effusion or warmth. No popliteal abnormalities. IMPRESSION/PLAN 25-year-old female who is noticing bilateral foot problems. She gives a history that is suggestive of plantar fasciitis but her exam is fairly benign. Given her ongoing symptoms in this I have advised her to see Podiatry for further evaluation of her feet. She was agreeable to that. She was set up to see Dr. Lao. Patient has noted this purplish discoloration at times of her feet. Today circulation of her feet appears normal with no discoloration. I cannot explain the discoloration that she has noted in the past. We discussed that if your feet or cold they may have a slight discoloration. Advised patient that if this persists or becomes more frequent further evaluation would be warranted. Patient will continueto monitor this. If new symptoms develop or if these become more frequent she should return for recheck and further evaluation. She agreed E BANDER documented in this encounter Plan of Treatment Upcoming Encounters Date Type Specialty Care Team Description 04/22/2022 Appointment Laboratory Medicine Meryl Julio M.D. [address] [place], [place] [address] (Wo rk) 04/29/2022 Office Visit Endocrinology Meryl Julio M .D. [address] [place], [place] [address] (Hector rk) Scheduled Referrals Name Type Priority Associated Order Schedule Diagnoses Orthopedic Surgery - Outpatient Referral Routine Pain Foot Lef t Expected: Podiatry foot non 05/06/2021 surgical consult (Approximat e), (clinic) Expires: 08/04/2022 documented as of this encounter Visit Diagnoses Diagnosis Pain Foot Left - Primary documented in this encounter Care Teams Paper Folding Machine Operator Relationship Specialty Start Date End Date Jerry Patterson M.D. PCP - General Family Medicine 05/06/21 [address] [place] [phone] documented as of this encounter
--- OUTSIDE RECORDS SUMMARY | 2022-03-06 07:05 | XMS_ITS | Encounter Summary ---
:1995 Author Organization [facility] Address [address] [place] [address] Care Team Providers Name Role Phone Jerry Patterson M.D. Primary Care Provider Encounter Details Date Type Department Care Team Description 05/27/2021 Clinical Communication Department of Jordan Chang Occupational Medicine Willy PASCAL, M.P.H. in [address] [place] [address] [place] [address] [phone] Social History Tobacco Use Types Packs/Day Years [...] or relatives? How often do you attend rastafarian or sikhism More than 4 time s per year 06/21/2021 services? Do you belong to any clubs or organizations Yes 06/21/2021 such as rastafarian groups, unions, fraternal or athletic groups, or [...] or slept in a custodial (including now)? Sex Assigned at Date Recorded Female 06/21/2021 12:52 PM LENS SHAPER GRINDER documented as of this encounter Plan of Treatment Upcoming Encounters Date Type Specialty Care Team Description 04/22/2022 Appointment Laboratory Medicine Meryl Julio M.D. [address] [place], [place] [address] (Wo rk) 04/29/2022 Office Visit Endocrinology Meryl Julio M .D. [address] [place] [address] (Wo rk) documented as of this encounter Visit Diagnoses Not on filedocumented in this encounter Care Teams Millinery Teacher Relationship Specialty Start Date End Date Jerry Patterson M.D. PCP - General Family Medicine 05/06/21 [address] [place] [address] documented as of this encounter
--- OUTSIDE RECORDS SUMMARY | 2022-03-06 07:05 | XMS_ITS | Encounter Summary ---
:1995 Author Organization [facility] Address [address] [place] [address] Care Team Providers Name Role Phone Jerry Patterson M.D. Primary Care Provider Encounter Details Date Type Department Care Team Description 05/29/2021 Admin Visit Department of [facility] Lisseth Blackwood, Medicine in [facility] [address] [place] [place] [phone] Social History Tobacco Use Types Packs/Day Years [...] or relatives? How often do you attend christianity or sabianist More than 4 time s per year 06/21/2021 services? Do you belong to any clubs or organizations Yes 06/21/2021 such as christianity groups, unions, fraternal or athletic groups, or [...] to pay for the very basics like [employer] hat hard 06/21/2021 food, housing, medical care, [...] or slept in a longterm (including now)? Sex Assigned at Date Recorded Female 06/21/2021 12:52 PM MANAGER SEARCH ENGINE documented as of this encounter Plan of Treatment Upcoming Encounters Date Type Specialty Care Team Description 04/22/2022 Appointment Laboratory Medicine Meryl Julio M.D. [address] [place], [place] [address] (Wo rk) 04/29/2022 Office Visit Endocrinology Meryl Julio M .D. [address] [place], [place] [address] (Wo rk) documented as of this encounter Visit Diagnoses Not on filedocumented in this encounter Additional Health Concerns Infection Onset Date Last Indicated Resolved Time COVID19 Pending 05/29/2021 05/29/2021 05/30/2021 11:19 AM MANAGER SEARCH ENGINE documented as of this encounter Care Teams Dean Of Faculty Relationship Specialty Start Date End Date Jerry Patterson M.D. PCP - General Family Medicine 05/06/21 [address] [facility] [place] [address] documented as of this encounter
--- OUTSIDE RECORDS SUMMARY | 2022-03-06 07:05 | XMS_ITS | Encounter Summary ---
:1995 Author Organization [facility] Address [address] [place] [address] Care Team Providers Name Role Phone Jerry Patterson M.D. Primary Care Provider Encounter Details Date Type Department Care Team Description 06/09/2021 Hospital Encounter Department of Cyrus Mena Laboratory Medicine in .[facility] [address] [facility] [address] [place] [phone] Social History Tobacco Use Types Packs/Day Years [...] or relatives? How often do you attend episcopalian or worship More than 4 time s per year 06/21/2021 services? Do you belong to any clubs or organizations Yes 06/21/2021 such as episcopalian groups, unions, fraternal or athletic groups, or [...] place to sleep or slept in a prison (including now)? Sex Assigned at Date Recorded Female 06/21/2021 12:52 PM WET CLEANER MACHINE documented as of this encounter Medications at Time of Discharge Medication Sig Dispensed Refills Start Date End Date metFORMIN XR Take 2 tablets 360 tablet 3 02/13/2021 (GLUCOPHAGE-XR) 500 mg 24 (1,000 mg total) by hr tabletIndications: mouth 2 (two) times Polycystic Ovary Syndrome a day. TENS unit and electrodes Acute treatment is 1 each 0 (Cefaly) combo for 60 minutes. packIndications: Migraine Preventive Headache treatment is 20 min per day. cyclobenzaprine Take 1 tablet (5 mg 10 tablet 0 03/15/2021 06/21/2021 (FLEXERIL) 5 mg tablet total) by mouth at bedtime as needed for muscle spasms for up to 10 days. eletriptan (RELPAX) 40 mg Treat with 12 tablet 3 02/15/2020 09/05/2021 tabletIndications: eletriptan (Relpax) Migraine Headache 40 mg at onset of severe headache. May repeat one time after 2 hours if needed. Limit the use to no more than 9 days a month (twice a week). levothyroxine (SYNTHROID, Alternates with 112 0 1 08/14/2021 LEVOTHROID) 100 mcg mcg tablet levothyroxine (SYNTHROID, Take 1 tablet (112 30 tablet 11 07/16/2021 LEVOTHROID) 112 mcg mcg total) by mouth tablet daily. propranoloL (INDERAL LA) TAKE 1 CAPSULE (80 60 capsule 11 05/202007/24/2021 80 mg 24 hr MG TOTAL) BY MOUTH capsuleIndications: 2 (TWO) TIMES A Migraine Headache DAY. spironolactone Take 1 tablet (50 180 tablet 0 01/23/2021 (ALDACTONE) 50 mg mg total) by mouth tabletIndications: 2 (two) times a Polycystic Ovary Syndrome day. tiZANidine (ZANAFLEX) 4 Take 1 capsule (4 30 capsule 0 03/2206/21/2021 mg capsule mg total) by mouth 3 (three) times a day as needed for muscle spasms. documented as of this encounter Plan of Treatment Upcoming Encounters Date Type Specialty Care Team Description 04/22/2022 Appointment Laboratory Medicine Meryl Julio M.D. [address] [place], [place] [address] (Wo rk) 04/29/2022 Office Visit Endocrinology Meryl Julio M .D. [address] [place] [address] (Wo rk) documented as of this encounter Visit Diagnoses Not on filedocumented in this encounter Additional Health Concerns Infection Onset Date Last Indicated Resolved Time COVID19 Pending 06/07/2021 06/09/2021 06/09/2021 5:40 PM WET CLEANER MACHINE documented as of this encounter Care Teams Motorcycle Engine Assembler Relationship Specialty Start Date End Date Jerry Patterson M.D. PCP - General Family Medicine 05/06/[address] [place] [phone] documented as of this encounter
--- OUTSIDE RECORDS SUMMARY | 2022-03-06 07:05 | XMS_ITS | Encounter Summary ---
:1995 Author Organization [facility] Address [address] [place] [address] Care Team Providers Name Role Phone Elsewhere, Pcp Primary Care Provider Unavailable Reason for Referral Physical Therapy (Routine) - Authorized Specialty Diagnoses / Procedures Referred By Contact Refer red To Contact Physical Therapy Diagnoses Pain Knee Left Jordan Chang III, M.D., M.P.H. [address] [place] [address] Referral ID Status Reason Start Date Expiration Visits Visits Date Requested Authorized [id number] Authorized No 04/11/2021 04/11/2022 1 1 access/unsa tisfactory access LY CRIB ATTENDANT Reason for Visit Reason Comments PT referral Encounter Details Date Type Department Care Team Description 04/11/2021 Clinical Communication Department of Jordan Chang PT referral Occupational Medicine Willy PASCAL, M.P.H. in [facility] [address] [facility] [address] [place] [address] [place] [address] [phone] Social History Tobacco Use Types Packs/Day Years [...] or relatives? How often do you attend mosque or yazidi More than 4 time s per year 06/21/2021 services? Do you belong to any clubs or organizations Yes 06/21/2021 such as mosque groups, unions, fraternal or athletic groups, or [...] slept in a senior care (including now)? Sex Assigned at Date Recorded Female 06/21/2021 12:52 PM SUPPLY CRIB ATTENDANT documented as of this encounter Miscellaneous Notes Telephone Encounter - Jordan Chang III, M.D., M.P.H. - 04/11/2021 4:06 PM CST Thank you Farida. This seems very reasonable and I believe early PT engagement will be important for her recovery to pre-injury state. Dr. Chang LY CRIB ATTENDANT Telephone Encounter - Farida Mendoza R.N. - 04/11/2021 1:06 PM CST Ramírez was referred to PT on 03/22. Her first visit was supposed to be today and she was going to follow up in clinic tomorrow with Dr. Chang. Her appointment was cancelled for PT due to provider illness.She notes that nothing has really improved or changed since last visit. I did encourage her to come in for another evaluation and offered to see if an outside PT order could be processed sooner. She did not want to keep the appointment for tomorrow feeling she really needs to be seen by PT first. She would like to see if [facility] PT can get her in sooner as her next appointment that could be scheduled wasfor 04/26 and she doesn't want to wait that long. She would like a call back if an order is signed for outside PT. Messaged care team at [facility] to put on the cancellation list. She works overnights so needs a morning appointment. Patient requesting Outside referral for PT at [facility]. Pended. LY CRIB ATTENDANT documented in this encounter Plan of Treatment Upcoming Encounters Date Type Specialty Care Team Description 04/22/2022 Appointment Laboratory Medicine Meryl Julio M.D. [address] [place] [address] (Wo rk) 04/29/2022 Office Visit Endocrinology Meryl Julio M .D. [address] [place] [address] (Wo rk) documented as of this encounter Visit Diagnoses Diagnosis Pain Knee Left - Primary documented in this encounter Care Teams Home Performance Laborer Relationship Specialty Start Date End Date Elsewhere, Pcp PCP - General Family Medicine 01/15/21 05/05/21 documented as of this encounter
--- OUTSIDE RECORDS SUMMARY | 2022-03-06 07:05 | XMS_ITS | Encounter Summary ---
:1995 Author Organization [facility] Address [address] [place] [address] Care Team Providers Name Role Phone Elsewhere, Pcp Primary Care Provider Unavailable Reason for Referral Physical Therapy (Routine) - Authorized Specialty Diagnoses / Procedures Referred By Contact Refer red To Contact Diagnoses History Of Falling Pain Back Thoracic Pain Knee Left Jordan Chang III, [facility] Region Procedures PT Ongoing treatment Willy, M.P.H. [address] [place] [phone] Referral ID Status Reason Start Date Expiration Date Visits V isits Requested Authorized [id number] Authorized 04/22/2021 05/24/2022 99 7 DENT INTERN Reason for Visit Physical Therapy (Routine) - Closed Specialty Diagnoses / Procedures Referred By Contact Refer red To Contact Diagnoses History Of Falling Pain Back Thoracic Pain Knee Left Jordan Chang III, [facility] Region Procedures PT Evaluate and treat Willy, M.P.H. [address] [place] [phone] Referral ID Status Reason Start Date Expiration Date Visits Requ ested Visits Authorized [id number] Closed 03/22/2021 05/24/2021 1 1 Encounter Details Date Type Department Care Team Description 04/22/2021 Comprehensive Visit Department of Physical TonJordan cleary III, M.D., M.P.H. [address] [place] [phone] History Of Falling; Medicine and Jimbo Gallegos P.T., D.P.T. [address] [place] [phone] Pain Back Thoracic; Rehabilitation in Pain Knee Left [place], [place] [address] [place] [phone] Social History Tobacco Use Types Packs/Day [...] or relatives? How often do you attend islam or orthodox More than 4 time s per year 06/21/2021 services? Do you belong to any clubs or organizations Yes 06/21/2021 such as islam groups, unions, fraternal or athletic groups, or [...] or slept in a detention (including now)? Sex Assigned at Date Recorded Female 06/21/2021 12:52 PM RESIDENT INTERN documented as of this encounter Consult Notes Jimbo Gallegos P.T., D.P.T. - 04/22/2021 8:00 AM CST Consults [facility] Knee Initial Evaluation Patient Name: Felecia Cardenas Date of Evaluation: 04/22/2021 Referring Provider: Jordan Chang III, M.D., M.P.H. [address] [place] [phone] Rehab Diagnosis: 1. History Of Falling 2. Pain Back Thoracic 3. Pain Knee Left Insurance: Payor: [facility] / Plan: [facility] RECOV[employer] CLAIMS SERVICES / Product Type: Indemnity/ Total Visit Count: 1 Visit Count since last G-Codes: 1 PERTINENT MEDICAL / SURGICAL HISTORY: Past Medical History: Diagnosis Date ??? Body Mass Index 40.0 To 44.9 Adult ([facility]) 05/22/2016 Body mass index (BMI) 40.0-44.9, adult Rule activated problem due to BMI 40-44 posted on 05/22 at 08:45 RESIDENT INTERN. ??? Migraine Headache 08/05/2018 ??? Obstructive Sleep Apnea Adult 10/14/2016 ??? Overweight Body Mass Index 25-29.9 Adult 05/22/2016 Body mass index (BMI) 40.0-44.9, adult Rule activated problem due to BMI 40-44 posted on 05/22 at 08:45 RESIDENT INTERN. ??? Polycystic Ovary Syndrome 08/06/2017 ??? Rhinitis Allergic Animal 10/04/2018 ??? Rhinitis Allergic Due To Outdoor Pollen 10/04/2018 ??? Rhinitis Allergic Dust Mite 10/04/2018 ??? Thyroiditis Deric's 08/06/2017 Past Surgical History: Procedure Laterality Date ??? APPENDECTOMY N/A Appendectomy ??? ARTHROSCOPY KNEE Right 04/2015 ??? CHOLECYSTECTOMY N/A Cholecystectomy ??? FUNCTIONAL ENDOSCOPY SINUS SURGERY WITH NAVIGATION Right 10/08/2018 Procedure: FUNCTIONAL ENDOSCOPY SINUS SURGERY WITH NAVIGATION Septoplasty and Bilateral turbinate reduction; Surgeon: Nisa Kahn M.D.; Location: [facility] OR ??? OTHER CONVERTED SHX (SEE COMMENT) N/A 03/21/2011 >1. ERCP. 2. Needle knife and completion biliary sphincterotomy. ??? OTHER CONVERTED SHX (SEE COMMENT) N/A 03/11/2010 >EGD with small bowel, gastric, and esophageal biopsies. ??? TOTAL KNEE ARTHROPLASTY Left 09/03/2011 partial total knee Contact monitoring: Therapist was wearing the following PPE throughout entire session: surgical mask Patient was wearing a mask during therapy session: yes SUBJECTIVE: Patient is a pleasant 25 y.o. female presenting to Physical Therapy for her LT knee and Rt shoulder pain. 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 Pt hit her Lt knee and Rt shoulder on her patient's table. Pt dislocated her Lt patella and had replacement with allograft. She also had ACL/PCL reconstruction in 2012. Pt has difficulty with negotiating steps with clicking sensation. Pt's pain is localized at her medial side her Lt knee which aggravates with prolong weight bearing activities. Pt's Rt side neck and shoulder pain is constant in nature but worse with turning her head at her work or any type of lifting. Pt notices her Rt 4th and 5th fingers are tingling, on and off. Pt feels stiffness of her neck and wonder if chiropractor treatment may help her neck stiffness and pain. Pain: Location: Rt side neck and shoulder, 4/10; Lt knee, 5-6/10 Falls Risk: low X-ray: IMPRESSION: Mild arthritic change of the patellofemoral joint left knee. No acute injury. OBJECTIVE: Gait: WNL Observation/effusion: minimum Palpation: tender to palpate at Lt med jt line Joint Screen: Ankle and hip gross ROM WFL bilaterally Range of Motion: (indicate Bilateral (B); Left (L); Right (R) in table) Knee ROM AROM Pain Free Pain Before End Range Pain At End Range End Feel PROM Right Left Right Left Flexion 135 130 Extension 0 0 Standard testing positions unless otherwise noted. Soni: ranges are reported in active range of motion unless noted as AA = active assisted or P = passive range of motion, * denotes pain. If left blank,assume not tested. Lower Extremity Strength: Motion Right Pain Left Pain Unilateral Heel Raise Ankle Dorsiflexion Knee Extension 4 Knee Flexion Hip Flexion Hip External Rotation Hip Internal Rotation Hip Adduction 4 Hip Abduction Hip Extension Standard testing positions unless otherwise noted, * denotes pain. If left blank, assume not tested. Lower Extremity Flexibility: Muscle Group Right (+/-) Left (+/-) Comments Quadriceps (prone knee bend) Hip Flexors (Evaristo Test) ITB/TFL (Malena's) Gastroc/Soleus Hamstrings Other: If left blank, assume not tested. Special Tests: Stability Right (+/-) Left (+/-) Comments Varus Stress Valgus Stress + At 30 deg flexion Posterior Drawer Posterior Sag Pearl's Pivot Shift Meniscal Tests Thessaly Keily's + Joint Line Tenderness + Apley's Compression Patellofemoral Tests Patellar Apprehension Vastus Medialis Coordination Iliotibial Band Blake Compression If left blank, assume not tested. Outcome Measures: Lower Extremity Functional Scale 0 = Extreme Difficulty or Unable toPerform Activity 1 = Quite a Bit of Difficulty 2 = Moderate Difficulty 3 = A Little Bit of Difficulty 4 = No Difficulty The Lower Extremity Functional Scale Any of your usual work, housework, or school activities?: Moderate Difficulty Your usual hobbies, recreational or sporting activities.: Moderate Difficulty Getting into or out of the bath.: Moderate Difficulty Walking between rooms.: No Difficulty Putting on your shoes or socks.: No Difficulty Squatting.: Moderate Difficulty Lifting an object, like a bag of groceries from the floor.: Moderate Difficulty Performing light activities around your home.: Moderate Difficulty Performing heavy activities around your home.: Moderate Difficulty Getting into or out of a car.: Quite a Bit of Difficulty Walking 2 blocks.: No Difficulty Walking a mile.: A Little Bit of Difficulty Going up or down 10 stairs (about 1 flight of stairs).: Quite a Bit of Difficulty Standing for 1 hour.: A Little Bit of Difficulty Sitting for 1 hour.: A Little Bit of Difficulty Running on even ground.: Moderate Difficulty Running on uneven ground.: Moderate Difficulty Making sharp turns while running fast.: Moderate Difficulty Hopping.: Moderate Difficulty Rolling over in bed.: No Difficulty LEFS Score: 49 / 80 points Lower the score = More disability Minimum Level of Detectable Change (90% Confidence): 9 points Cervical ROM: WNL all directions with end range pain with rotation bilateral Negative compression and distraction tests Negative spurling A test on Rt Negative sharp plusher test Negative anterior shear test Interventions Provided 04/22/2021: - Evaluation completed. The patient was educated regarding evaluative findings, diagnosis, prognosis, potential risks and benefits of rehabilitation interventions. A collaborative effort was used to establish goals and plan of care, which was agreed upon by patient. The patient was informed of the right to make decisions regarding their care, including refusal of examination, treatment, or selection of therapy services from another provider if desired. The treatment plan may be progressed or modified based upon the patient's response to treatment. -Attendance policy was discussed with patient. Patient verbalized and agrees to no show policy expectations including discharge from therapy if attendance expectations are not met. - Initiation of exercise and manual therapy Manual therapy Upper cervical mobilization grade IV then with thrust under patient's consent, bilateral Mid thoracic PA mobilization grade IV then V Suboccipital release Exercise SLR 10 reps 2 sets Hip abduction sidelying 10 reps 2 sets AA SNAG 2 reps Home Exercise Program: 04/22/2021: SLR 10 reps 2 sets Hip abduction sidelying 10 reps 2 sets AA SNAG 2 reps Treatment Response: good Plan for Next Session: progression ASSESSMENT: Felecia Cardenas is a 25 y.o. female referred to Physical Therapy due to her Lt knee and Rt shoulder/neck pain. Pt's Lt medial meniscus and MCL may be involved with positive Nithin test and med jt line tenderness. Her neck pain appears to be mostly myofascial and jt stiffness/irritation without having any neurological signs and symptoms. Pt would benefit from skilled PT to improve her pain and function. Plan of care and goals discussed and agreed upon by the patient. Anticipate the patient will do well. No barriers to treatment noted. Thank you for referral. Comorbidities: see above Personal Factors: None Patient currently displays a stable clinical presentation. Due to these factors, clinical decision making is considered of low complexity. These functional limitations and problem list require the specialized knowledge and skill of a therapist to meet expected outcomes. Patient has good potential to meet the expected outcomes in a reasonable period of time. Therapeutic interventions will include therapeutic exercise, therapeutic activities, neuro reeducation and manual therapy. Patient is in agreement with plan of care. Thank you for this referral. GOALS: PLAN: Frequency/Duration: 2/wk x 6 wks Plan of Care End Date: PT Next Certification Date: 06/03/21 By co-signing this note, the provider certifies the therapy being provided to this patient is reasonable and necessary for the diagnosis or treatment of this patient. Time Spent with Patient Electronically signed by: Jimbo Gallegos P.T., D.P.T. 04/22/21 7:53 AM RESIDENT INTERN Department of Physical Medicine and Rehabilitation in [address] [facility] [phone] Dept: [phone] DENT INTERN documented in this encounter Plan of Treatment Upcoming Encounters Date Type Specialty Care Team Description 04/22/2022 Appointment Laboratory Medicine Meryl Julio M.D. [address] [place] [address] [phone] (Wo rk) 04/29/2022 Office Visit Endocrinology Meryl Julio M .D. [address] [place] [address] [phone] (Wo veronica) documented as of this encounter Visit Diagnoses Diagnosis History Of Falling Pain Back Thoracic Pain Knee Left documented in this encounter Care Teams Analysis Engineer Relationship Specialty Start Date End Date Elsewhere, Pcp PCP - General Family Medicine 01/15/21 05/05/21 documented as of this encounter
--- OUTSIDE RECORDS SUMMARY | 2022-03-06 07:05 | XMS_ITS | Encounter Summary ---
:1995 Author Organization [facility] Address [address] [place] [address] Care Team Providers Name Role Phone Elsewhere, Pcp Primary Care Provider Unavailable Reason for Referral Outpatient (Routine) - Closed Specialty Diagnoses / Procedures Referred By Contact Refer red To Contact Preventive Medicine Diagnoses recheck Jordan Chang III, [facility] Willy, M.P.H. [address] [place] [address] Referral ID Status Reason Start Date Expiration Date Visits Requ ested Visits Authorized [id number] Closed 03/15/2021 03/15/2022 1 1 Reason for Visit Reason Comments Consult [facility] Encounter Details Date Type Department Care Team Description 03/15/2021 Comprehensive Visit Department of Jordan Chang ry Of Falling (Primary Dx); Occupational Juan Manuel PASCAL M.D., Pain Back [facility]; Medicine in [place], M.P.H. Unspecified Injury Left Quadriceps Muscl e Fascia And Tendon Initial [place] [address] [place] [address] [place] [phone] Social History Tobacco Use Types Packs/Day [...] or relatives? How often do you attend yazidi or scientologist More than 4 time s per year 06/21/2021 services? Do you belong to any clubs or organizations Yes 06/21/2021 such as yazidi groups, unions, fraternal or athletic groups, or [...] at Date Recorded Female 06/21/2021 12:52 PM ETHICS MANAGER documented as of this encounter Last Filed Vital Signs Vital Sign Reading Time Taken Comments Blood Pressure 124/84 03/15/2021 8:01 AM CDT Pulse 89 03/15/2021 8:01 AM CDT Temperature - - Respiratory Rate - - Oxygen Saturation - - Inhaled Oxygen Concentration - - Weight - - Height - - Body Mass Index - - documented in this encounter Progress Notes Jordan Chang III, M.D., M.P.H. - 03/15/2021 8:00 AM CDT Images from the original note were not included. 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 provider found ELSEWHERE, PCP CHIEF COMPLAINT/REASON FOR VISIT Consult ([facility]) HISTORY OF PRESENT ILLNESS Felecia Cardeans is a 25 y.o. female who presents today to Occupational Medicine for the 1st timefor an injury that occurred on the DOI above. Background History: Felecia Cardenas states that on the DOI [...] with the assistance of another nurse. The lining stuffer checked in and she reported the injury [...] injured a few years ago at a detention during a patient movement and she had to have surgery. Since the onset of the pain, the symptoms For back on the left side has been more tight and sore. She states that her left knee also does have some tenderness and feels bit hesitant on stairs.. Past history of work-related/ injury: yes, 2012. [employer] at nursing. Left knee reconstruction. Patientmovement. Surgery. no impairment. No restrictions. No current work restrictions and was sent here to [facility] by OHZane RN. 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 [id number]. 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 Background Medical History: [...] No Current lives at with her in [place], [place]. 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 TODAY: Pain is rated 3 out of 10. Pain is described to be located in his left knee, lumbar spine and thoracic spine. Associated symptoms: Denies any locking or weakness, but does have occasional feeling of stretching when getting out of her car and going down stairs. No numbness. Current pain medication/control: Tylenol alternating with Motrin. Any specialty care following: Will see personal Chiropractor later today for eval of her back that she feels needs to be popped. Impact on ability to perform occupation/current work restrictions: Would be difficult with patient movement. Impact on ability to accomplish home activities/hobbies: Just got in February. [place]. trying for child now. Little time for hobbies. likes to walk dog. [employer] on demand 2x/week. 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 . Impact on ability to acccomplish ADLs: Chores, no problem. . REVIEW OF SYSTEMS Musculoskeletal: Positive for arthralgias, back pain, pain or stiffness in the joints, joint swelling and muscle pain/stiffness. Neurological: Negative for numbness or shooting pain in hands, arms, legs, or feet and weakness in arms or legs. Please also see the Occupational Medicine history form dated today. MEDICAL HISTORY Past Medical History: Diagnosis Date ??? Body Mass Index 40.0 To 44.9 Adult ([facility]) 05/22/2016 Body mass index (BMI) 40.0-44.9, adult Rule activated problem due to BMI 40-44 posted on 05/22 at 08:45 ETHICS MANAGER. ??? Migraine Headache 08/05/2018 ??? Obstructive Sleep Apnea Adult 10/14/2016 ??? Overweight Body Mass Index 25-29.9 Adult 05/22/2016 Body mass index (BMI) 40.0-44.9, adult Rule activated problem due to BMI 40-44 posted on 05/22 at 08:45 ETHICS MANAGER. ??? Polycystic Ovary Syndrome 08/06/2017 ??? Rhinitis [...] Left Quadriceps Muscle Fascia And Tendon Initial SURGICAL HISTORY Past Surgical History: Procedure Laterality Date ??? APPENDECTOMY N/A Appendectomy ??? ARTHROSCOPY KNEE Right 04/2015 ??? CHOLECYSTECTOMY N/A Cholecystectomy ??? FUNCTIONAL ENDOSCOPY SINUS SURGERY WITH NAVIGATION Right 10/08/2018 Procedure: FUNCTIONAL ENDOSCOPY SINUS SURGERY WITH NAVIGATION Septoplasty and Bilateral turbinate reduction; Surgeon: Nisa Kahn M.D.; Location: [facility] OR ??? OTHER CONVERTED SHX (SEE COMMENT) N/A 03/21/2011 >1. ERCP. 2. Needle knife and completion biliary sphincterotomy. ??? OTHER CONVERTED SHX (SEE COMMENT) N/A 03/11/2010 >EGD with small bowel, gastric, and esophageal biopsies. ??? TOTAL KNEE ARTHROPLASTY Left 09/03/2011 partial total knee SOCIAL HISTORY Social History Socioeconomic History ??? Marital status: Single Spouse name: None ??? Number of children: None ??? Years of education: None ??? Highest education level: None Occupational History ??? None Tobacco Use ??? Smoking status: Never Smoker ??? Smokeless tobacco: Never Used Vaping Use ??? Vaping Use: never used Substance and Sexual Activity ??? Alcohol use: No ??? Drug use: No ??? Sexual activity: Defer Other Topics Concern ??? None Social History Narrative ??? None Social Determinants of Health Financial Resource Strain: Not on file Food Insecurity: Not on file Transportation Needs: Not on file Physical Activity: Not on file Stress: Not on file Social Connections: Not on file Intimate Partner Violence: Not on file Housing Stability: Not on file CURRENT MEDICATIONS Current Outpatient Medications Medication Sig Dispense Refill ??? eletriptan (RELPAX) 40 mg tablet Treat with eletriptan (Relpax) 40 mg at onset of severe headache. May repeat one time after 2 hours if needed. Limit the use to no more than 9 days a month (twice aweek). 12 tablet 3 ??? levothyroxine (SYNTHROID, LEVOTHROID) 112 mcg tablet [...] times a day. 180 tablet 0 ??? TENS unit and electrodes (Cefaly) combo pack Acute treatment is for 60 minutes. Preventive treatment is 20 min per day. 1 each 0 ??? cyclobenzaprine (FLEXERIL) 5 mg tablet Take 1 tablet (5 mg total) by mouth at bedtime as needed for muscle spasms for up to 10 days. 10 tablet 0 No current facility-administered medications for this visit. PHYSICAL EXAMINATION OBJECTIVE Vitals: 03/15/21 0801 BP: 124/84 Pulse: 89 Constitutional Appearance: Normal appearance. HENT Head: Normocephalic. Eyes Extraocular Movements: Extraocular movements intact. Pupils: Pupils are equal, round, and reactive to light. Musculoskeletal Cervical back: No tenderness. Normal range of motion. Thoracic back: Spasms and tenderness present. Normal range of motion. Lumbar back: Spasms and tenderness present. No deformity. Normal range of motion. Negative right straight leg raise test and negative left straight leg raise test. Back: Left upper leg: Tenderness present. Right knee: Normal. Left knee: Ecchymosis and bony tenderness present. No deformity, effusion or crepitus. Normal rangeof motion. No tenderness. No medial joint line, lateral joint line or patellar tendon tenderness. NoLCL laxity, MCL laxity, ACL laxity or PCL laxity.Normal alignment, normal meniscus and normal patellar mobility. Instability Tests: Anterior drawer test negative. Posterior drawer test negative. Anterior Pearl test negative. Medial Keily test negative and lateral Keily test negative. Legs: Comments: Tenderness at insertion of vastus medialis and rectus femoris on left with minimal resolved ecchymosis noted. Skin Findings: Bruising present. Neurological General: No focal deficit present. Mental Status: She is alert and oriented to person, place, and time. Sensory: No sensory deficit. Motor: No weakness. Gait: Gait normal. Psychiatric Attention and Perception: Attention normal. Mood and Affect: Mood normal. Speech: Speech normal. Behavior: Behavior normal. Thought Content: Thought content normal. Cognition and Memory: Cognition and memory normal. Judgment: Judgment normal. Comments: Very polite and excellent historian with good eye contact and appropriate mood and mannerisms. DIAGNOSTICS --Imaging Reviewed: Diagnostics 11/19/2008 XR Thoracic Spine Three views of the thoracic spine demonstrate no evidence of fracture or dislocation. There is a mild dextroscoliosis of the lower thoracic spine, which may be positional in nature. The pedicles appear normal. IMPRESSION: No acute pathology. ASSESSMENT / PLAN #1 History Of Falling #2 Pain Back Thoracic #3 Unspecified Injury Left Quadriceps Muscle Fascia And Tendon Initial Felecia Cardenas presents to Occupational Medicine for the 1st evaluation for an injury that occurred 03/09/2021. PLAN 1. History Of Falling While at work individual collapsed onto Ms. Cardenas and fell into patient edge of bed. 2. Pain Back Thoracic Right sided thoracic back pain that appears to be myofascial in nature. Noted scoliosis on exam and XR 11/19/2008 dextroscoliosis. Flexeril 5mg qhs Rx today and patient is scheduled to see her own Chiropractor who knows her well which will help with acute myofascial tenderness. 3. Unspecified Injury Left Quadriceps Muscle Fascia And Tendon Initial Appears by history and exam to be more contusion of the left quadriceps itself consistent with resolving ecchymosis. Left knee has a history of previous work- related injury that resulted in major surgical repair. 2013-no Op note, but appears by history to have not required PPD/Impairment, no permanent restrictions. Exam more consistent with muscle contusion rather than knee joint itself which appearsstable. OTC antiinflammatories for now and work restrictions for no patient movement. 4. Return to Work Status Examination There are no diagnoses linked to this encounter. Work status: modified duty with restrictions as follows No direct patient contact/patient transfers.Please allow for the ability to change positions every hour to stretch for 2-5 minutes as needed. Limit prolonged usage of stairs to more rare occasion. Limit repetitive bending twisting at low back tooccasional as tolerated. Preference for seated duties with the ability to change positions every 1 hour to stretch. The patient indicates understanding of these issues and agrees with the plan. 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 Work restrictions completed today and in Letters section with copy given/mailed to patient. MMI: pending PPD: pending Reevaluation in 7-10 days.. EDUCATION We discussed the diagnosis and treatment plan in detail. The patient expressed understanding of the content. No apparent learning barriers were identified. A total of 50 minutes was spent today in history, examination, review of his chart, counseling education and coordination of care. Jordan hCang III, M.D., M.P.H. documented in this encounter Plan of Treatment Upcoming Encounters Date Type Specialty Care Team Description 04/22/2022 Appointment Laboratory Medicine Meryl Julio M.D. [address] [place] [address] (Wo rk) 04/29/2022 Office Visit Endocrinology Meryl Julio M .D. [address] [place], [place] [address] (Wo rk) Scheduled Referrals Name Type Priority Associated Order Schedule Diagnoses Preventive Medicine Outpatient Referral Routine E xpected: office visit 03/22/2021 (clinic) (Approximate), Expires: 03/15/2024 documented as of this encounter Visit Diagnoses Diagnosis History Of Falling - Primary Pain Back Thoracic Unspecified Injury Left Quadriceps Muscl e Fascia And Tendon Initial documented in this encounter Care Teams Nail Mill Worker Relationship Specialty Start Date End Date Elsewhere, Pcp PCP - General Family Medicine 01/15/21 05/05/21 documented as of this encounter
--- OUTSIDE RECORDS SUMMARY | 2022-03-06 07:05 | XMS_ITS | Encounter Summary ---
:1995 Author Organization [facility] Address [address] [place] [address] Care Team Providers Name Role Phone Elsewhere, Pcp Primary Care Provider Unavailable Encounter Details Date Type Department Care Team Description 03/22/2021 Hospital Encounter Department of Jordan Chang Of Falling; Radiology, III, Willy, Pain Back Thora cic; [facility], M.P.H. Pain Knee Left in [place], [address] [place] [address] [address] [phone] [place] [phone] [place], [place] (Work) [phone] Social History Tobacco Use [...] How often do you attend pentecostal or nondenominational More than 4 time s per year [...] at Date Recorded Female 06/21/2021 12:52 PM BABYSITTER documented as of this encounter Medications at [...] 04/22/2022 Appointment Laboratory Medicine Meryl Julio M.D. [address] [place] [address] (Wo rk) 04/29/2022 Office Visit Endocrinology Meryl Julio M .D. [address] [place], [place] [address] (Wo rk) documented as of this encounter Procedures Procedure Name Priority Date/Time Associated Comments Diagnosis DX KNEE LEFT 4+ RAD - Routine 03/22/2021 12:19 History Of Results for this VIEWS (most inpatients PM CDT Falling procedure are in and all Pain Back the results outpatients) Thoracic section. Pain Knee Left documented in this encounter Results DX Knee Left 4+ Views (03/22/2021 12:19 PM CDT) Anatomical Region Laterality Modality Lower Extremity, Knee, Musculoskeletal RST LOS, Left Digital Radiography Musculoskeletal ARZ LOS, Muskuloskeletal FLA LOS Specimen (Source) Anatomical Collection Method Collection Time Re ceived Time Location / / Volume Laterality 03/22/2021 12:55 PM CDT Impressions 03/22/2021 12:56 PM CDT Mild arthritic change of the patellofemoral joint left knee. No acute injury. Narrative 03/22/2021 12:56 PM CDT EXAM: DX KNEE LEFT 4+ VIEWS COMPARISON: None FINDINGS: The visualized bones about the knee are intact and well aligned. There is mild patellofemoral joint arthritic c hange of the left knee. There is no acute injury. There is no additional art hritic change. Procedure Note Reinaldo Call M.D. - 03/22/2021Fo rmatting of this note might be different from the original. EXAM: DX KNEE LEFT 4+ VIEWS COMPARISON: None FINDINGS: The visualized bones about the knee are intact and well aligned. There is mild patellofemoral joint arthritic c hange of the left knee. There is no acute injury. There is no additional art hritic change. IMPRESSION: Mild arthritic change of the patellofemo ral joint left knee. No acute injury. Jordan Chang III, M.D., M.P.H. IMG DIAGNOSTIC IMAGI NG PROCEDURES documented in this encounter Visit Diagnoses Diagnosis History Of Falling Pain Back Thoracic Pain Knee Left documented in this encounter Care Teams Insulation Blower Relationship Specialty Start Date End Date Elsewhere, Pcp PCP - General Family Medicine 01/15/21 05/05/21 documented as of this encounter
--- OUTSIDE RECORDS SUMMARY | 2022-03-06 07:05 | XMS_ITS | Encounter Summary ---
:1995 Author Organization [facility] Address [address] [place] [address] Care Team Providers Name Role Phone Jerry Patterson M.D. Primary Care Provider Encounter Details Date Type Department Care Team Description 06/03/2021 Admin Visit Department of Family Medicine in [place], [place] [address] [phone] Social History Tobacco Use Types Packs/Day [...] or relatives? How often do you attend jain or mandaeism More than 4 time s per year 06/21/2021 services? Do you belong to any clubs or organizations Yes 06/21/2021 such as jain groups, unions, fraternal or athletic groups, or [...] to pay for the very basics like Thoora hat hard 06/21/2021 food, housing, medical care, [...] place to sleep or slept in a fdc (including now)? Sex Assigned at Date Recorded Female 06/21/2021 12:52 PM DEPLOYMENT MANAGER documented as of this encounter Plan of Treatment Upcoming Encounters Date Type Specialty Care Team Description 04/22/2022 Appointment Laboratory Medicine Meryl Julio M.D. [address] [place], [place] [address] (Wo rk) 04/29/2022 Office Visit Endocrinology Meryl Julio M .D. [address] [place] [address] (Wo rk) documented as of this encounter Visit Diagnoses Not on filedocumented in this encounter Additional Health Concerns Infection Onset Date Last Indicated Resolved Time COVID19 Pending 06/03/2021 06/03/2021 06/04/2021 12:12 PM DEPLOYMENT MANAGER documented as of this encounter Care Teams Retail Advertising Executive Relationship Specialty Start Date End Date Jerry Patterson M.D. PCP - General Family Medicine 05/06/[address] [place] [phone] documented as of this encounter
--- OUTSIDE RECORDS SUMMARY | 2022-03-06 07:05 | XMS_ITS | Encounter Summary ---
:1995 Author Organization [facility] Address [address] [place] [address] Care Team Providers Name Role Phone Jerry Patterson M.D. Primary Care Provider Encounter Details Date Type Department Care Team Description 06/09/2021 Hospital Encounter Department of Cyrus Mena Laboratory Medicine in [facility] [address] [facility] [address] [place] [phone] Social History Tobacco Use Types Packs/Day Years [...] or relatives? How often do you attend latter day or hoahaoism More than 4 time s per year 06/21/2021 services? Do you belong to any clubs or organizations Yes 06/21/2021 such as latter day groups, unions, fraternal or athletic groups, or [...] at Date Recorded Female 06/21/2021 12:52 PM VASCULAR TECH documented as of this encounter Medications at [...] Appointment Laboratory Medicine Meryl Julio M.D. [address] [place], [place] [address] (Wo rk) 04/29/2022 Office Visit Endocrinology Meryl Julio M .D. [address] [place] [address] (Wo rk) documented as of this encounter Visit Diagnoses Not on filedocumented in this encounter Additional Health Concerns Infection Onset Date Last Indicated Resolved Time COVID19 Pending 06/07/2021 06/09/2021 06/09/2021 5:40 PM VASCULAR TECH documented as of this encounter Care Teams Data Analyst Relationship Specialty Start Date End Date Jerry Patterson M.D. PCP - General Family Medicine 05/06/[address] [place] [phone] documented as of this encounter
--- OUTSIDE RECORDS SUMMARY | 2022-03-06 07:05 | XMS_ITS | Encounter Summary ---
:1995 Author Organization [facility] Address [address] [place] [address] Care Team Providers Name Role Phone Jerry Patterson M.D. Primary Care Provider Reason for Visit Physical Therapy (Routine) - Closed Specialty Diagnoses / Procedures Referred By Contact Refer red To Contact Diagnoses History Of Falling Pain Back Thoracic Pain Knee Left Jordan Chang III, [facility] Region Procedures PT Ongoing treatment Willy, M.P.H. [address] [place] [phone] Referral ID Status Reason Start Date Expiration Date Visits Requ ested Visits Authorized [id number] Closed 04/22/2021 05/24/2021 99 5 Encounter Details Date Type Department Care Team Description 05/07/2021 Clinical Support Department of Physical Flaquito Chang III, M.D., M.P.H. [address] [place] [phone] History Of Falling; Medicine and Jimbo Gallegos P.T., D.P.T. 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 - 05/07/2021 8:00 AM CST [facility] Physical Therapy Outpatient Treatment Note Patient Name: Felecia Cardenas Referring Provider: Jordan Chang III, M.D., M.P.H. [address] [place] [phone] Rehab Diagnosis: 1. History Of Falling 2. Pain Back Thoracic 3. Pain Knee Left Total Visit Count: 4 Visit Count since last G-Codes: 4 Treatment Date: 05/07/2021 Certification Dates: 04/22/2021 to 06/03/21 Visit Count this POC: 3 out of 12 SHAREPOINT NET DEVELOPER Visit Number: na Precautions/Special Considerations: na SUBJECTIVE: Pt states her Lt knee pain is still bothersome, 4/10 with her work activities. Pt's Rt shoulder and neck pain is 2/10, not as bad as her Lt knee. Pt states her Lt toes turns to purple with prolong dependent position like sitting and she discussed it with her Dr. Pt has some headache, dull type. OBJECTIVE: Contact monitoring: Therapist was wearing the following PPE throughout entire session: surgical mask Patient was wearing a mask during therapy session: yes Interventions/treatment provided 05/07/2021: Manual therapy STM to her bilateral upper trap and levator scapular; to her Rt quad/patella tendon/distal IT band Exercise Nu-step 5 mins LAQ 30lb (100 to 60 deg only due to PF jt pain and cavitation) 20 reps Band walk 10 steps 4 reps Heel raise 10 reps 2 sets Hip abduction 10 reps 2 sets band around knees Hip extension 10 reps 2 sets band around knees Wall slide 10 reps 2 sets band around knees Not today SLS 30s 2 reps Piriformis stretch 2 reps supine It band stretch 2 reps supine AA SNAG 2 reps Upper trap and levator stretch 2 reps each bilateral SLR 10 reps 2 sets (Lt PF jt - HOLD) Home exercise program: 04/22/2021: SLR 10 reps 2 sets - HOLD Hip abduction sidelying 10 reps 2 sets AA SNAG 2 reps ?? Compliant with HEP: Yes GOALS: PT Goal #1: Pt will work time checker with less than 2/10 Lt knee pain in 6 weeks PT Goal #1 Date: 04/22/2021 PT Goal #2: Pt will be independent with her home exercise program in 4 weeks PT Goal #2 Date: 04/22/2021 PT Goal #3: Pt will reach overhead with her Rt UE with less than 2/10 shoulder pain in 6 weeks PT Goal #3 Date: 04/22/2021 ASSESSMENT: Presents with continued Lt knee and Rt neck pain. Continued her Lt LE stabilization exercises within her pain limit, avoiding deep squat and SLR. Low suspicion of having DVT. Encouraged herto rest her Lt knee at least 1-2 days after performing her exercise program. Patient response to treatment: good PLAN: Lt Knee stabilization exercises Time Spent with Patient Therapeutic Exercise (min): 15 min Manual Therapy (min): 25 min Time Calculation Total Timed Units (min): 40 min Total Treatment Time (min): 40 min Electronically signed by: Jimbo Gallegos P.T., D.P.T. 05/07/21 8:40 AM STEEL LOADER Department of Physical Medicine and Rehabilitation in [address] [address] Dept: [phone] L LOADER documented in this encounter Plan of Treatment Upcoming Encounters Date Type Specialty Care Team Description 04/22/2022 Appointment Laboratory Medicine Meryl Julio M.D. [address] [place], [place] [address] (Wo rk) 04/29/2022 Office Visit Endocrinology Meryl Julio M .D. [address] [place], [place] [address] (Wo rk) documented as of this encounter Visit Diagnoses Diagnosis History Of Falling Pain Back Thoracic Pain Knee Left documented in this encounter Care Teams Fiscal Services Manager Relationship Specialty Start Date End Date Jerry Patterson M.D. PCP - General Family Medicine 05/06/[address] [place] [phone] documented as of this encounter
--- OUTSIDE RECORDS SUMMARY | 2022-03-06 07:05 | XMS_ITS | Encounter Summary ---
:1995 Author Organization [facility] Address [address] [place] [address] Care Team Providers Name Role Phone Jerry Patterson M.D. Primary Care Provider Reason for Visit Physical Therapy (Routine) - Closed Specialty Diagnoses / Procedures Referred By Contact Refer red To Contact Diagnoses History Of Falling Pain Back Thoracic Pain Knee Left Jordan Chang III, [facility] Procedures PT Ongoing treatment Willy, M.P.H. [address] [place] [phone] Referral ID Status Reason Start Date Expiration Date Visits Requ ested Visits Authorized [id number] Closed 04/22/2021 05/24/2021 99 5 Encounter Details Date Type Department Care Team Description 05/16/2021 Clinical Support Department of Physical Flaquito Chang III, M.D., M.P.H. [address] [place] [phone] History Of Falling; Medicine and Yulia Woodward, AmyTAnup [address] [place] [phone] Pain Back Thoracic; Rehabilitation in Pain Knee Left [place], [place] [address] [place] [phone] Social History Tobacco Use Types Packs/Day [...] How often do you attend mormonism or lutheran More than 4 time s per year [...] or slept in a [facility] (including now)? Sex Assigned at Date Recorded Female 06/21/2021 12:52 PM COMMAND AND CONTROL SYSTEMS INTEGRATOR documented as of this encounter Progress Notes Yulia Woodward, P.T.A. - 05/16/2021 8:00 AM CST [facility] Physical Therapy Outpatient Treatment Note Patient Name: Felecia Cardenas Referring Provider: Jordan Chang III, M.D., M.P.H. [address] [place] [phone] Rehab Diagnosis: 1. History Of Falling 2. Pain Back Thoracic 3. 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 SUBJECTIVE: Patient reports continued left knee pain and popping with squatting and climbing stairs. Kneeling on left knee is even worse. Feels like her knee pops sooner now with squats than initially. Mainly notes pain and symptoms if bends too far with knee flexion. Patient feels like the knee is worse, but left leg in general is stronger. Presently notes left neck and left knee pain at 2/10, but knee pain increases with squatting, stairs, and any activities when knee bends into flexion. 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 Pain: Location: Rt side neck and shoulder, 2/10; Lt knee, 2/10 OBJECTIVE: Contact monitoring: Therapist was wearing the following PPE throughout entire session: surgical mask Patient was wearing a mask during therapy session: yes Interventions/treatment provided 05/16/2021: - Discussion on current status with active warm up on NuStep - Therapeutic exercises NuStep L6 - arms/legs - 8 minutes Gastroc stretching on tilt board Gastroc, hamstring, and hip flexor stretching on stairs Green band: Horizontal rowing Shoulder extension Horizontal abduction Kinesiotaping to left knee to assist with support with bending/squatting Education in scapular/shoulder setting for posture Education in use of massage roller for self massage/stretching to left hamstring, ITB, quadriceps, and calf. 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 Focus today on posture education, stretching to lower extremity, and light strengthening to scapular stabilizers. Patient tolerated active warm up on NuStep well using arm and leg motions without increase in pain symptoms. Noted good relief of gastroc, hamstring, and hip flexor tightness following standing lower extremity and hip stretching exercises. Use of Kinesiotape to left knee to assist with stability and support. Patient able to complete all scapular stability exercises using green band without pain. Verbal and tactile cues were successful in appropriate form and technique with exercise performance. Patient maintains good understanding of education provided and was also provided with written copy of new home exercises along with green band to use at home for exercise performance. Overall patient tolerated PT session well with improved posture and comfort to both left knee and cervical musculature at end of PT session. We will continue and address knee and cervical stretching, strengthening, and posture to progress her towards her goals. Patient response to treatment: good PLAN: Frequency/Duration: 2/wk x 6 wks Plan of Care End Date: PT Next Certification Date: 06/03/21 Plan for Next Session:Lt Knee stabilization exercises Time Spent with Patient Therapeutic Exercise (min): 30 min Manual Therapy (min): 15 min Time Calculation Total Timed Units (min): 45 min Total Treatment Time (min): 45 min Electronically signed by: Amy CortezTAnup 05/16/21 2:14 PM COMMAND AND CONTROL SYSTEMS INTEGRATOR Department of Physical Medicine and Rehabilitation in [address] [address] Dept: [phone] AND AND CONTROL SYSTEMS INTEGRATOR documented in this encounter Plan of Treatment Upcoming Encounters Date Type Specialty Care Team Description 04/22/2022 Appointment Laboratory Medicine Meryl Julio M.D. [address] [place], [place] [address] (Wo rk) 04/29/2022 Office Visit Endocrinology Meryl Julio M .D. [address] [place], [place] [address] (Wo rk) documented as of this encounter Visit Diagnoses Diagnosis History Of Falling Pain Back Thoracic Pain Knee Left documented in this encounter Care Teams Open Tenter Operator Relationship Specialty Start Date End Date Jerry Patterson M.D. PCP - General Family Medicine 05/06/[address] [place] [phone] documented as of this encounter
--- OUTSIDE RECORDS SUMMARY | 2022-03-06 07:05 | XMS_ITS | Encounter Summary ---
:1995 Author Organization [facility] Address [address] [place] [address] Care Team Providers Name Role Phone Jerry Patterson M.D. Primary Care Provider Encounter Details Date Type Department Care Team Description 05/23/2021 Admin Visit [facility] in [place], [place] [address] [place] [phone] Social History Tobacco Use Types Packs/Day Years [...] or relatives? How often do you attend druze or hindu More than 4 time s per year 06/21/2021 services? Do you belong to any clubs or organizations Yes 06/21/2021 such as druze groups, unions, fraternal or athletic groups, or [...] at Date Recorded Female 06/21/2021 12:52 PM REFRACTORY WORKER documented as of this encounter Plan of Treatment Upcoming Encounters Date Type Specialty Care Team Description 04/22/2022 Appointment Laboratory Medicine Meryl Julio M.D. [facility] [place], [place] [address] (Wo rk) 04/29/2022 Office Visit Endocrinology Meryl Julio M .D. [address] [place] [address] (Wo rk) documented as of this encounter Visit Diagnoses Not on filedocumented in this encounter Additional Health Concerns Infection Onset Date Last Indicated Resolved Time COVID19 Pending 05/23/2021 05/23/2021 05/23/2021 10:06 PM REFRACTORY WORKER documented as of this encounter Care Teams Journeyman Press Operator Relationship Specialty Start Date End Date Jerry Patterson M.D. PCP - General Family Medicine 05/06/21 [address] [place] [phone] documented as of this encounter
--- OUTSIDE RECORDS SUMMARY | 2022-03-06 07:05 | XMS_ITS | Encounter Summary ---
:1995 Author Organization [facility] Address [address] [place] [address] Care Team Providers Name Role Phone Jerry Patterson M.D. Primary Care Provider Reason for Visit Reason Comments COVID Inquiry Encounter Details Date Type Department Care Team Description 05/27/2021 Clinical Communication Central Appointment Presched[facility]INA parker Office in [facility] [address] [place] [address] Social History Tobacco Use Types Packs/Day Years [...] or relatives? How often do you attend jew or judaism More than 4 time s per year 06/21/2021 services? Do you belong to any clubs or organizations Yes 06/21/2021 such as jew groups, unions, fraternal or athletic groups, or [...] to pay for the very basics like [employer] hard 06/21/2021 food, housing, medical care, [...] place to sleep or slept in a halfway (including now)? Sex Assigned at Date Recorded Female 06/21/2021 12:52 PM CHILD CARE SUPERVISOR documented as of this encounter Miscellaneous Notes Telephone Encounter - Carrillo Pedraza - 05/27/2021 12:27 PM CST What is the purpose of the call?: Symptomatic (Calling PCP Office) Calling [place] [facility] What region is the patient calling from? : [facility] Have you tested positive for COVID-19 in the last 20 days? : No In the past 14 days are any of the following symptoms new to you and not related to an existing health condition?: New headache,New sore throat,New myalgias (muscle aches),New diarrhea,New shortness ofbreath Because of symptoms, transfer patient to: : [facility] COVID Nurse Line (End Screening) Symptom Onset Date of symptom onset: 05/20/21 Plan: Endpoint recommendation: Transferred to Nursing/COVID Line/Care Team *Reminder if sending patient for testing in [facility] or [facility], route encounter to the correct testing pool. D CARE SUPERVISOR documented in this encounter Plan of Treatment Upcoming Encounters Date Type Specialty Care Team Description 04/22/2022 Appointment Laboratory Medicine Meryl Julio M.D. [address] [place] [address] (Hector martin) 04/29/2022 Office Visit Endocrinology Meryl Julio M .D. [facility] [place], [place] [address] (Hector martin) documented as of this encounter Visit Diagnoses Not on filedocumented in this encounter Care Teams Computer Support Technician Relationship Specialty Start Date End Date Jerry Patterson M.D. PCP - General Family Medicine 05/06/[address] [place] [phone] documented as of this encounter
--- OUTSIDE RECORDS SUMMARY | 2022-03-06 07:05 | XMS_ITS | Encounter Summary ---
:1995 Author Organization [facility] Address [address] [place] [address] Care Team Providers Name Role Phone Elsewhere, Pcp Primary Care Provider Unavailable Reason for Visit Physical Therapy (Routine) - Closed Specialty Diagnoses / Procedures Referred By Contact Refer red To Contact Diagnoses History Of Falling Pain Back Thoracic Pain Knee Left Jordan Chang III, [facility] Procedures PT Ongoing treatment Willy, M.P.H. [address] [place] [phone] Referral ID Status Reason Start Date Expiration Date Visits Requ ested Visits Authorized [id number] Closed 04/22/2021 05/24/2021 99 5 Encounter Details Date Type Department Care Team Description 04/26/2021 Clinical Support Department of Physical Flaquito Chang III, M.D., M.P.H. [address] [place] [phone] History Of Falling; Medicine and Jimbo Gallegos P.T., D.P.T. [address] [place] [phone] Pain Back Thoracic; Rehabilitation in Pain Knee Left [place], [place] [address] [place] [phone] Social History Tobacco Use Types Packs/Day [...] or relatives? How often do you attend gnosticism or rastafari More than 4 time s per year 06/21/2021 services? Do you belong to any clubs or organizations Yes 06/21/2021 such as gnosticism groups, unions, fraternal or athletic groups, or [...] at Date Recorded Female 06/21/2021 12:52 PM FRY COOK documented as of this encounter Progress Notes Jimbo Gallegos P.T., D.P.T. - 04/26/2021 8:45 AM CST [facility] Physical Therapy Outpatient Treatment Note Patient Name: Felecia Cardenas Referring Provider: Jordan Chang III, M.D., M.P.H. [address] [place] [phone] Rehab Diagnosis: 1. History Of Falling 2. Pain Back Thoracic 3. Pain Knee Left Total Visit Count: 2 Visit Count since last G-Codes: 2 Treatment Date: 04/26/2021 Certification Dates: 04/22/2021 to 06/03/21 Visit Count this POC: 2 out of 12 STEEL SPAR OPERATOR Visit Number: na Precautions/Special Considerations: na SUBJECTIVE: Pt states she had chiropractor adjustment and graston STM, which were helpful. Pt rates 2/10, stiffness of her neck. Pt denies any question or concern regarding her home exercise program. OBJECTIVE: Contact monitoring: Therapist was wearing the following PPE throughout entire session: surgical mask Patient was wearing a mask during therapy session: yes Interventions/treatment provided 04/26/2021: Manual therapy STM to her bilateral upper trap and levator scapular Exercise Nu-step 5 mins LAQ 30lb (100 to 60 deg only due to PF jt pain and cavitation) Supported squat 10 reps 2 set (0-30 deg range) Heel raise 10 reps 2 sets Hip abduction 10 reps 2 sets band around knees Hip extension 10 reps 2 sets band around knees Wall slide 10 reps 2 sets band around knees SLS 30s 2 reps SLR 10 reps 2 sets (Lt PF jt - HOLD) Piriformis stretch 2 reps supine It band stretch 2 reps supine AA SNAG 2 reps Upper trap and levator stretch 2 reps each bilateral Home exercise program: 04/22/2021: SLR 10 reps 2 sets - HOLD Hip abduction sidelying 10 reps 2 sets AA SNAG 2 reps ?? 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 Progressed her Lt LE stabilization exercises and noticed some Lt PF jt pain with cavitation. Encouraged her to avoid deep squat or terminal knee extension. Patient response to treatment: good PLAN: Lt Knee stabilization exercises Time Spent with Patient Therapeutic Exercise (min): 30 min Manual Therapy (min): 10 min Time Calculation Total Timed Units (min): 40 min Total Treatment Time (min): 40 min Electronically signed by: Jimbo Gallegos P.T., Obie.P.T. 04/26/21 9:25 AM FRY COOK Department of Physical Medicine and Rehabilitation in [place], [place] [address] [facility] [phone] Dept: [phone] COOK documented in this encounter Plan of Treatment Upcoming Encounters Date Type Specialty Care Team Description 04/22/2022 Appointment Laboratory Medicine Meryl Julio M.D. [address] [place] [address] (Hector martin) 04/29/2022 Office Visit Endocrinology Meryl Julio M .D. [address] [place] [address] (Hector martin) documented as of this encounter Visit Diagnoses Diagnosis History Of Falling Pain Back Thoracic Pain Knee Left documented in this encounter Care Teams Heavy Duty Mechanic Relationship Specialty Start Date End Date Elsewhere, Pcp PCP - General Family Medicine 01/15/21 05/05/21 documented as of this encounter
--- OUTSIDE RECORDS SUMMARY | 2022-03-06 07:05 | XMS_ITS | Encounter Summary ---
:1995 Author Organization [facility] Address [address] [place] [address] Care Team Providers Name Role Phone Jerry Patterson M.D. Primary Care Provider Encounter Details Date Type Department Care Team Description 06/09/2021 Admin Visit [facility] in [place], [place] [address] [place] [phone] Social History Tobacco Use Types Packs/Day [...] How often do you attend zoroastrian or orthodox More than 4 time s [...] or slept in a [facility] (including now)? Sex Assigned at Date Recorded Female 06/21/2021 12:52 PM ADVICE CLERK documented as of this encounter Last Filed Vital Signs Vital Sign Reading Time Taken Comments Blood Pressure - - Pulse - - Temperature - - Respiratory Rate - - Oxygen Saturation - - Inhaled Oxygen Concentration - - Weight 95.3 kg (210 lb) 06/09/2021 11:51 AM ADVICE CLERK Height 170.2 cm (5' 7) 06/09/2021 11:51 AM ADVICE CLERK Body Mass Index 32.89 06/09/2021 11:51 AM ADVICE CLERK documented in this encounter Plan of Treatment Upcoming Encounters Date Type Specialty Care Team Description 04/22/2022 Appointment Laboratory Medicine Meryl Julio M.D. [address] [place], [place] [address] (Wo rk) 04/29/2022 Office Visit Endocrinology Meryl Julio M .D. [address] [place], [place] [address] (Wo rk) documented as of this encounter Visit Diagnoses Not on filedocumented in this encounter Additional Health Concerns Infection Onset Date Last Indicated Resolved Time COVID19 Pending 06/07/2021 06/09/2021 06/09/2021 5:40 PM ADVICE CLERK documented as of this encounter Care Teams Monitoring Engineer Relationship Specialty Start Date End Date Jerry Patterson M.D. PCP - General Family Medicine 05/06/21 [address] [place] [phone] documented as of this encounter
--- OUTSIDE RECORDS SUMMARY | 2022-03-06 07:05 | XMS_ITS | Encounter Summary ---
:1995 Author Organization [facility] Address [address] [place] [address] Care Team Providers Name Role Phone Jerry Patterson M.D. Primary Care Provider Reason for Visit Reason Onset Date Comments Testing For Upper Respiratory Virus Symptoms 06/09/2021 Encounter Details Date Type Department Care Team Description 06/09/2021 External Outreach Business Service Brandi Rodriguez, Dima tact With And (Suspected) Exposure To COVID-19; Center in [place], YELLOW PAGES SPACE SALESPERSON, C.N.P. Infection Upper Respiratory [place] [address] [place] [address] [place], [place] [phone] Social History Tobacco Use Types Packs/Day [...] or relatives? How often do you attend confucianist or evangelical More than 4 time s per year 06/21/2021 services? Do you belong to any clubs or organizations Yes 06/21/2021 such as confucianist groups, unions, fraternal or athletic groups, or [...] at Date Recorded Female 06/21/2021 12:52 PM EDGE TRIMMING MACHINE OPERATOR documented as of this encounter Progress Notes Wendy King RKarina. - 06/09/2021 11:43 AM CST Encounter created for symptomatic infectious disease screening with possible COVID, Influenza, RSV, and/or Group A Strep testing. TRIMMING MACHINE OPERATOR documented in this encounter Plan of Treatment Upcoming Encounters Date Type Specialty Care Team Description 04/22/2022 Appointment Laboratory Medicine Meryl Julio M.D. [address] [place] [address] (Hector martin) 04/29/2022 Office Visit Endocrinology Meryl Julio M .D. [address] [place] [address] (Hector martin) documented as of this encounter Procedures Procedure Name Priority Date/Time Associated Diagnosis Comme nts SARS-COV-2, FLU Routine 06/09/2021 11:48 AM Resul ts for this A+B, AND RSV PCR, V EDGE TRIMMING MACHINE OPERATOR procedur e are in the results section. RSV RNA PCR DETECT, Routine 06/09/2021 11:48 AM R esults for this V EDGE TRIMMING MACHINE OPERATOR procedure are i n the results section. documented in this encounter Results RSV RNA PCR Detect, V (06/09/2021 11:48 AM EDGE TRIMMING MACHINE OPERATOR) [facility] Time Signature RSV RNA PCR Undetected Undetected 06/13/2021 SDSC 1:53 AM EDGE TRIMMING MACHINE OPERATOR Comment: RSV RNA is absent. RSV Specimen Source Nasopharynx 06/13/2021 1:53 AM EDGE TRIMMING MACHINE OPERATOR SDS Comment: ----ADDITIONAL INFORMATION---- Testing was performed using the amparo In fluenza A/B & RSV UC assay ([employer] on the amparo 68 00 / 8800 System, and only the RSV portion of this assay has been validated for testing. This test was developed and its performa nce characteristics determined by [facility] in a manner consistent with CLIA requirements. This test has not been cleared or approved by the U.S. Bhavin d and Drug Administration. Specimen Anatomical Collection Method Collection Time Receive d Time (Source) Location / / Volume Laterality Varies 06/09/2021 11:48 06/11/2021 AM EDGE TRIMMING MACHINE OPERATOR 11:22 PM EDGE TRIMMING MACHINE OPERATOR Brandi Rodriguez APRN, C.N.P. LAB MICROBIOLOGY - GENERAL ORDERABLES Performing Organization Address City/State/ZIP Code Phon e Number [facility] [address] [place], [place] [address] [place] [address] [place] [address] Laboratory Medicine and Pathology [address] [place] SARS-CoV-2, Flu A+B, and RSV PCR, V (06/09/2021 11:48 AM EDGE TRIMMING MACHINE OPERATOR) [facility] Method Time Signature Influenza A Undetected Undetected 06/12/2021 SDSC RNA PCR 10:23 AM EDGE TRIMMING MACHINE OPERATOR Comment: Influenza A RNA absent. Influenza B RNA PCR Undetected Undetected 06/12/2021 10:23 A M EDGE TRIMMING MACHINE OPERATOR SDS Comment: Influenza B RNA absent. SARS CoV-2 RNA PCR Undetected Undetected 06/12/2021 10:23 AM EDGE TRIMMING MACHINE OPERATOR SDS Comment: SARS-CoV-2 RNA absent. This result does not rule out COVID-19 in the patient, as the sensitivity of the test depends o n the timing of the specimen collection and the quality of the specim en. Result should be correlated with patient's history and clinical presentat ion. SARS-CoV-2 & Flu A/B Specimen Source Nasopharynx 0 06/12/2021 10:23 AM EDGE TRIMMING MACHINE OPERATOR [facility] Comment: ----ADDITIONAL INFORMATION---- This PCR test is performed using the cob as SARS-CoV-2 & Influenza A/B assay ([employer] on the Hashplex0 / 8800 Systems, and it has received Emergency Use Authorization (EU A) by the U.S. Food and Drug Administration. Fact sheets for this Emergency Use Autho rization (EUA) assay can be found at the following links: https://www.fda.gov/media/835190/downloa d for Healthcare Providers https://www.fda.gov/media/694062/downloa d for Patients Specimen Anatomical Collection Method Collection Time Receive d Time (Source) Location / / Volume Laterality Varies 06/09/2021 11:48 06/11/2021 AM EDGE TRIMMING MACHINE OPERATOR 11:22 PM EDGE TRIMMING MACHINE OPERATOR Brandi Rodriguez APRN, C.N.P. LAB MICROBIOLOGY - GENERAL ORDERABLES Performing Organization Address City/State/ZIP Code Phon e Number [facility] [address] [place], [place] [address] [place] [address] [place] [address] Laboratory Medicine and Pathology [address] [place] documented in this encounter Visit Diagnoses Diagnosis Contact With And (Suspected) Exposure To COVID-19 Infection Upper Respiratory documented in this encounter Additional Health Concerns Infection Onset Date Last Indicated Resolved Time COVID19 Pending 06/07/2021 06/09/2021 06/09/2021 5:40 PM EDGE TRIMMING MACHINE OPERATOR documented as of this encounter Care Teams Wind Up Worker Relationship Specialty Start Date End Date Jerry Patterson M.D. PCP - General Family Medicine 05/06/21 [address] [place] [phone] documented as of this encounter
--- OUTSIDE RECORDS SUMMARY | 2022-03-06 07:05 | XMS_ITS | Encounter Summary ---
:1995 Author Organization [facility] Address [address] [place] [address] Care Team Providers Name Role Phone Jerry Patterson M.D. Primary Care Provider Reason for Visit Reason Onset Date Comments Testing For Upper Respiratory Virus Symptoms 05/23/2021 Encounter Details Date Type Department Care Team Description 05/23/2021 External Outreach Business Service Adhami, Ankita, Cont act With And (Suspected) Exposure To COVID-19; Center in [place] Infection Upper Respiratory [place] [address] [place] [address] [place], [place] [phone] [phone] Social History Tobacco Use Types Packs/Day [...] How often do you attend rastafarian or islam More than 4 time s per year [...] place to sleep or slept in a residential (including now)? Sex Assigned at Date Recorded Female 06/21/2021 12:52 PM APPLICATION SUPPORT CONSULTANT documented as of this encounter Last Filed Vital Signs Vital Sign Reading Time Taken Comments Blood Pressure - - Pulse - - Temperature - - Respiratory Rate - - Oxygen Saturation - - Inhaled Oxygen Concentration - - Weight 96.2 kg (212 lb 1.3 oz) 05/23/2021 1:27 PM APPLICATION SUPPORT CONSULTANT Height 170.2 cm (5' 7) 05/23/2021 1:27 PM APPLICATION SUPPORT CONSULTANT Body Mass Index 33.22 05/23/2021 1:27 PM APPLICATION SUPPORT CONSULTANT documented in this encounter Progress Notes Michelle Banda R.N. - 05/23/2021 10:38 AM CST Encounter created for symptomatic infectious disease screening with possible COVID, Influenza, RSV, and/or Group A Strep testing. ICATION SUPPORT CONSULTANT documented in this encounter Plan of Treatment Upcoming Encounters Date Type Specialty Care Team Description 04/22/2022 Appointment Laboratory Medicine Meryl Julio M.D. [address] [place], [place] [address] (Wo rk) 04/29/2022 Office Visit Endocrinology Meryl Julio M .D. [address] [place] [address] (Wo rk) documented as of this encounter Procedures Procedure Name Priority Date/Time Associated Diagnosis Comme nts SARS CORONAVIRUS-2 Routine 05/23/2021 3:26 PM Contact With And Results for this RNA, V APPLICATION SUPPORT CONSULTANT (Suspected) Exposure procedu re are in To COVID-19 the results section. INFLUENZA A/B AND Routine 05/23/2021 10:41 AM Infection Upper Results for this RSV, PCR, VARIES APPLICATION SUPPORT CONSULTANT Respiratory procedure a re in the results section. documented in this encounter Results SARS Coronavirus-2 RNA, V Symptomatic (05/23/2021 3:26 PM APPLICATION SUPPORT CONSULTANT) [facility] Method Time Signature SARS-CoV-2 Swab, 05/23/2021 MKTO Specimen Nasopharynx 10:05 PM Source APPLICATION SUPPORT CONSULTANT SARS CoV-2 Undetected Undetected 05/23/2021 MKTO RNA, TMA 10:05 PM APPLICATION SUPPORT CONSULTANT Comment: SARS-CoV-2 RNA absent. This result does not rule out COVID-19 in the patient, as the sensitivity of the test depends o n the timing of the specimen collection and the quality of the specim en. Result should be correlated with patient's history and clinical presentat ion. ----ADDITIONAL INFORMATION---- This molecular amplification test was pe rformed using the Aptima SARS-CoV-2 assay ([employer] on the [employer] tem under emergency use authorization (EUA) by the U.S. Food and Drug Administ ration. Fact sheets for this EUA assay can be fo und at the following links: For Healthcare Providers: https://www.fd a.gov/media/469596/download For Patients: https://www.fda.gov/media/ 064457/download Specimen Anatomical Collection Method Collection Time Receive d Time (Source) Location / / Volume Laterality Varies 05/23/2021 3:26 PM 3:26 (Nasopharynx) APPLICATION SUPPORT CONSULTANT PM APPLICATION SUPPORT CONSULTANT Ankita Ramos M.D. LAB MICROBIOLOGY - GENERAL O RDERABLES Performing Organization Address City/State/ZIP Code Phon e Number [facility]- [address] [place] [address] [place] [address] System in [place] [facility] Influenza A/B and RSV, PCR, Varies (05/23/2021 10:41 AM APPLICATION SUPPORT CONSULTANT) [facility] Method Time Signature Influenza A/B Swab, 05/24/2021 DTL and RSV, Nasopharynx 6:29 PM APPLICATION SUPPORT CONSULTANT Source Influenza A, Undetected Undetected 05/24/2021 DTL PCR 6:29 PM APPLICATION SUPPORT CONSULTANT Comment: Influenza A RNA absent. Influenza B, PCR Undetected Undetected 05/24/2021 6:29 PM CS T DTL Comment: Influenza B RNA absent. Respiratory Syncytial Virus, PCR Undetected Undetected 6:29 PM APPLICATION SUPPORT CONSULTANT DTL Comment: RSV RNA absent. ----ADDITIONAL INFORMATION---- This test has been modified from the [facility] instructions. Its performance characteristics were determi jose l by [facility] in a manner consistent with CLIA requirements. This test has not been cleared or approved by the U.S. Food and Drug Administration . Specimen Anatomical Collection Method Collection Time Receive d Time (Source) Location / / Volume Laterality Varies 05/23/2021 10:41 05/23/2021 (Nasopharynx) AM APPLICATION SUPPORT CONSULTANT 10:27 PM APPLICATION SUPPORT CONSULTANT Ankita Ramos M.D. LAB MICROBIOLOGY - GENERAL O ANIVAL Performing Organization Address City/State/ZIP Code Phon e Number [facility] - [address] [place], [place] [address] [facility] [place] [address] [facility] [address] documented in this encounter Visit Diagnoses Diagnosis Contact With And (Suspected) Exposure To COVID-19 Infection Upper Respiratory documented in this encounter Additional Health Concerns Infection Onset Date Last Indicated Resolved Time COVID19 Pending 05/23/2021 05/23/2021 05/23/2021 10:06 PM APPLICATION SUPPORT CONSULTANT documented as of this encounter Care Teams Certified Medical Technician Relationship Specialty Start Date End Date Jerry Patterson M.D. PCP - General Family Medicine 05/06/21 [address] [place] [phone] documented as of this encounter
--- OUTSIDE RECORDS SUMMARY | 2022-03-06 07:05 | XMS_ITS | Encounter Summary ---
:1995 Author Organization [facility] Address [address] [place] [address] Care Team Providers Name Role Phone Jerry Patterson M.D. Primary Care Provider Reason for Visit Reason Onset Date Comments Testing For Upper Respiratory Virus Symptoms 06/07/2021 Encounter Details Date Type Department Care Team Description 06/07/2021 External Outreach Urgent Care, [facility], [facility], in [place] (Suspected) Exposure [place], [facility] [address] To COVID-19 (Primary [place], [place] Dx) [address] [place] [address] [place], [place] [phone] (Work) [phone] Social History Tobacco Use Types Packs/Day Years [...] or relatives? How often do you attend bahai or muslim More than 4 time s per year 06/21/2021 services? Do you belong to any clubs or organizations Yes 06/21/2021 such as bahai groups, unions, fraternal or athletic groups, or [...] slept in a group home (including now)? Sex Assigned at Date Recorded Female 06/21/2021 12:52 PM BLOCK PRESS OPERATOR documented as of this encounter Progress Notes Juju Alan, R.M.A. - 06/07/2021 10:18 AM CST Encounter created for symptomatic infectious disease screening with possible COVID, Influenza, RSV, and/or Group A Strep testing. K PRESS OPERATOR documented in this encounter Plan of Treatment Upcoming Encounters Date Type Specialty Care Team Description 04/22/2022 Appointment Laboratory Medicine Meryl Julio M.D. [address] [place] [address] (Hector martin) 04/29/2022 Office Visit Endocrinology Meryl Julio M .D. [address] [place] [address] (Hector martin) documented as of this encounter Procedures Procedure Name Priority Date/Time Associated Diagnosis Comme nts SARS CORONAVIRUS-2 STAT 06/09/2021 11:48 AM Contact With An d Results for this RNA, V BLOCK PRESS OPERATOR (Suspected) Exposure procedu re are in To COVID-19 the results section. documented in this encounter Results SARS Coronavirus-2 RNA, V Symptomatic (06/09/2021 11:48 AM BLOCK PRESS OPERATOR) [facility] Method Time Signature SARS-CoV-2 Swab, 06/09/2021 MKTO Specimen Nasopharynx 5:39 PM BLOCK PRESS OPERATOR Source SARS CoV-2 Undetected Undetected 06/09/2021 MKTO RNA, TMA 5:39 PM BLOCK PRESS OPERATOR Comment: SARS-CoV-2 RNA absent. This result does not rule out COVID-19 in the patient, as the sensitivity of the test depends o n the timing of the specimen collection and the quality of the specim en. Result should be correlated with patient's history and clinical presentat ion. ----ADDITIONAL INFORMATION---- This molecular amplification test was pe rformed using the Aptima SARS-CoV-2 assay ([employer] on the [employer] tem under emergency use authorization (EUA) by the U.S. Food and Drug Administ ration. Fact sheets for this EUA assay can be fo und at the following links: For Healthcare Providers: https://www.fd a.gov/media/140382/download For Patients: https://www.fda.gov/media/ 943675/download Specimen Anatomical Collection Method Collection Time Receive d Time (Source) Location / / Volume Laterality Varies 06/09/2021 11:48 06/09/2021 1:08 (Nasopharynx) AM BLOCK PRESS OPERATOR PM BLOCK PRESS OPERATOR Cyrus Mena M.D. LAB MICROBIOLOGY - GENERAL O ANIVAL Performing Organization Address City/State/ZIP Code Phon e Number [facility]- [address] [place] [id number] [place] [address] [place] [address] System in [address] documented in this encounter Visit Diagnoses Diagnosis Contact With And (Suspected) Exposure To COVID-19 - Primary documented in this encounter Additional Health Concerns Infection Onset Date Last Indicated Resolved Time COVID19 Pending 06/07/2021 06/09/2021 06/09/2021 5:40 PM BLOCK PRESS OPERATOR documented as of this encounter Care Teams Mine Utility Operator Relationship Specialty Start Date End Date Jerry Patterson M.D. PCP - General Family Medicine 05/06/21 [address] [place] [phone] documented as of this encounter
--- OUTSIDE RECORDS SUMMARY | 2022-03-06 07:05 | XMS_ITS | Encounter Summary ---
:1995 Author Organization [facility] Address [address] [place] [address] Care Team Providers Name Role Phone Elsewhere, Pcp Primary Care Provider Unavailable Reason for Visit Outpatient (Routine) - Closed Specialty Diagnoses / Procedures Referred By Contact Refer red To Contact Endocrinology Diagnoses Thyroiditis Deric's Jerry Patterson M.D. [facility] [address] [place] [phone] Referral ID Status Reason Start Date Expiration Date Visits Requ ested Visits Authorized [id number] Closed 01/23/2021 01/23/2022 1 1 Encounter Details Date Type Department Care Team Description 04/16/2021 Comprehensive Visit Division of Jerry Patterson M.D. [address] [place] [phone] Hypothyroidism Primary (Primary Dx); Endocrinology in Ian Vargas M.D. [address] [place] [phone] Thyroiditis Deric's [place], [place] [address] [place] [phone] Social History Tobacco Use Types Packs/Day Years [...] How often do you attend yazdanism or religion More than 4 time s per year [...] or slept in a usp (including now)? Sex Assigned at Date Recorded Female 06/21/2021 12:52 PM TANK REFINISHER documented as of this encounter Last Filed Vital Signs Vital Sign Reading Time Taken Comments Blood Pressure 128/85 04/16/2021 9:22 AM TANK REFINISHER Pulse 123 04/16/2021 9:22 AM TANK REFINISHER Temperature - - Respiratory Rate - - Oxygen Saturation - - Inhaled Oxygen Concentration - - Weight 93.5 kg (206 lb 2.1 oz) 04/16/2021 9:22 AM TANK REFINISHER Height 169.6 cm (5' 6.77) 04/16/2021 9:22 AM TANK REFINISHER Body Mass Index 32.51 04/16/2021 9:22 AM TANK REFINISHER documented in this encounter Consult Notes Ian Vargas M.D. - 04/16/2021 9:30 AM CST SUBJECTIVE P3, TT 40. REFERRAL SOURCE Dr. Jerry Patterson. REASON FOR CONSULT Thyroid. 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 She has a history of hypothyroidism for 5 years. Currently on thyroxine 112 mcg per day. In August 12, TSH was 1.7 and free T4 1.9. On January 23, TSH was 2.7. She was clinically euthyroid. She has nonspecific symptoms of fatigue, hair changes, and brittle nails. Her weight is around 210. Her peak weight was 280. She dropped weight by dieting and exercise to 180 but has gained 20+ pounds in the past year. She has diagnosis of PCOS and is currently on metformin and hoping to get . Got months ago and planning and this has caused her stress. OBJECTIVE PHYSICAL EXAMINATION Vital Signs: Height is 169 cm, weight 93 kg. Blood pressure 128/85. General: Euthyroid but slightly obese. Eyes: Normal. Thyroid: Small. Heart: NSR. Skin: Normal. ASSESSMENT / PLAN #1 Hypothyroidism, on thyroxine #2 PCOS #3 Obesity #4 Planning PLAN: She is on thyroxine 112 mcg per day. I told her that TSH of 2.7 is ideal for . I have ordered repeat TSH and free T4 check for mid-May. In the meantime, she should continue current thyroxine dose. We also talked about need for increasing thyroxine dose in . Her symptoms are not related to thyroid. Fatigue, weight, hair, etc., are not related to thyroid. Her thyroid gland is adequately treated and hypothyroidism adequately replaced. Discussed and dismissed. Ian Vargas M.D. CT CT Job ID: [id number]/[facility] REFINISHER documented in this encounter Plan of Treatment Upcoming Encounters Date Type Specialty Care Team Description 04/22/2022 Appointment Laboratory Medicine Meryl Julio M.D. [facility] [place], [place] [address] (Wo rk) 04/29/2022 Office Visit Endocrinology Meryl Julio M .D. [address] [place], [place] [address] (Wo rk) documented as of this encounter Visit Diagnoses Diagnosis Hypothyroidism Primary - Primary Thyroiditis Deric's documented in this encounter Care Teams Art History Professor Relationship Specialty Start Date End Date Elsewhere, Pcp PCP - General Family Medicine 01/15/21 05/05/21 documented as of this encounter
--- OUTSIDE RECORDS SUMMARY | 2022-03-06 07:05 | XMS_ITS | Encounter Summary ---
:1995 Author Organization [facility] Address [address] [place] [address] Care Team Providers Name Role Phone Jerry Patterson M.D. Primary Care Provider Reason for Visit Reason Comments COVID Nurse Line Encounter Details Date Type Department Care Team Description 05/27/2021 Clinical Communication Division of Mena Kendall COV ID Nurse Line [facility] Internal L, R.N. [facility] [address] [place] [address] in [place], [place] [phone] [place] [address] [place], [place] (Work) [phone] Social History Tobacco Use Types Packs/Day Years [...] How often do you attend yazidi or sikhism More than 4 time s [...] or slept in a intermediate (including now)? Sex Assigned at Date Recorded Female 06/21/2021 12:52 PM CHANNEL SALES MANAGER documented as of this encounter Miscellaneous Notes Telephone Encounter - Mena Kendall R.N. - 05/27/2021 12:50 PM CST COVID-19 Nurse Line Screening ASSESSMENT Initial Screening Pathway Select appropriate pathway: : Adult In the last 48 hours, have you had a fever* OR symptoms that are unrelated to a preexisting illness?: New headache,New diarrhea,New chills,New cough,New shortness of breath,New muscle aches,New sore throat,New nausea,New loss of smell (nasal congestion) COVID Symptomatic Screening Do you have any of the following urgent symptoms?: No urgent symptoms noted (Continue Screening) Have you received a COVID-19 vaccine in the last 72 hours? : No vaccine received (Continue Screening) Have you had close contact* with a person who has a LABORATORY CONFIRMED case of COVID-19 in the past 14 days?: Yes- quarantine required, provide instructions (Continue Screening) (05/25/2021) Have you tested positive for COVID-19 in the last 45 days?: No. COVID-19 testing is indicated (Continue Screening for Additional Testing) Additional Screening for Influenza, RSV and Strep Select appropriate region: : [place] Do you have any of the following respiratory syntonical virus (RSV) complications? : No complications noted (Continue Screening) Do you have any of the following high risk influenza criteria?: Diabetes,Compromised immune system*,1 or more high risk flu complications are noted. (Continue Screening) Based on your last response, you are considered high risk for Influenza complications and may benefit taking a medication called Tamiflu?? (Oseltamivir). Are you interested in pursuing a prescription for Tamiflu?? (Oseltamivir)?: Yes and patient is an established [facility] patient*. When screening complete, run the Influenza Management protocol. (Continue Screening) Are all of the following Strep criteria met? : Age is between 18-75 years,No, all criteria are not met. Influenza testing is indicated. (End Screening) Symptom Onset Date of symptom onset: 05/20/21 Testing Recommendation Endpoint Is testing recommended? : Recommended to test Further Triage Needs Any further triage needs? : No further concerns noted. PLAN Endpoint recommendation: [employer] Symptomatic testing indicated, advised to be swabbed for COVID-19 and Influenza, sent to [facility]: An appointment is needed for testing. Call [phone] during the hours of Mon-Fri 8 am - 4 pm or Sat/Sun 9 am - 2 pm to schedule an appointment time. Scheduling staff will provide instructions on location and check in for your appointment. , Please avoid using public transportation per CDC recommendation. If you do not have personal transportation please self-quarantine until a personal transportation option is available. Standard Care Points -Get a COVID -19 vaccine as soon as you can if not fully vaccinated. -Wash hands frequently with soap and water, use hand mental health professional if soap and water aren't available. -Wear a mask over your nose and mouth to help protect yourself and others if not fully vaccinated and having no symptoms -Stay 6 feet between yourself and others who don't live with you. -Avoid crowds and poorly ventilated indoor spaces. -Seek emergent care if any of the following occur Trouble breathing Bluish lips or face Persistent pain or pressure in the chest New confusion or inability to rouse. -Notify your regular care provider of any new or worsening symptoms. Symptomatic Carepoints: Stay home and separate yourself from others and stay in a specific sick room if able. Avoid sharing personal or household items. Rest. Hydrate. Take Acetaminophen/Ibuprofen asneeded to control fever and muscles aches. Use over the counter medications as needed for other symptoms. Gargle with 8 ounces of warm salt water several times a day for throat discomfort (/ tsp regular salt to 8 ounces or 1 cup warm water). Do not swallow the salt water. Throat lozenges will help keep the throat lubricated. Hard candy, lollipops, and throat lozenges are equally effective. Use a humidifier. If you have received a negative COVID-19 test result and continue to have new or worsening symptoms after 72 hours please call the COVID Nurse Line to assess if you need repeat testing or reach out to your Primary Care Provider for guidance. Education: Patient/caregiver able to teach back Patient agreeable to plan of care: Yes The following references were used: [facility] novel coronavirus (COVID- 19) resources CDC web site https://www.cdc.gov/coronavirus/2019-ncov/your-health/index.html Nursing judgement NEL SALES MANAGER documented in this encounter Plan of Treatment Upcoming Encounters Date Type Specialty Care Team Description 04/22/2022 Appointment Laboratory Medicine Meryl Julio M.D. [address] [place] [address] (Wo rk) 04/29/2022 Office Visit Endocrinology Meryl Julio M .D. [address] [place] [address] (Wo rk) documented as of this encounter Visit Diagnoses Not on filedocumented in this encounter Care Teams Hat Measurer Relationship Specialty Start Date End Date Jerry Patterson M.D. PCP - General Family Medicine 05/06/[address] [place] [phone] documented as of this encounter
--- OUTSIDE RECORDS SUMMARY | 2022-03-06 07:05 | XMS_ITS | Encounter Summary ---
:1995 Author Organization [facility] Address [address] [place] [address] Care Team Providers Name Role Phone Elsewhere, Pcp Primary Care Provider Unavailable Reason for Visit Physical Therapy (Routine) - Closed Specialty Diagnoses / Procedures Referred By Contact Refer red To Contact Diagnoses History Of Falling Pain Back Thoracic Pain Knee Left Jordan Chang III, [facility] Procedures PT Ongoing treatment Willy, M.P.H. [address] [place] [phone] Referral ID Status Reason Start Date Expiration Date Visits Requ ested Visits Authorized [id number] Closed 04/22/2021 05/24/2021 99 5 Encounter Details Date Type Department Care Team Description 05/02/2021 Clinical Support Department of Physical Flaquito Chang III, M.D., M.P.H. [address] [place] [phone] History Of Falling; Medicine and Jimbo Gallegos P.T., D.P.T. [address] [place] [phone] Pain Back Thoracic; Rehabilitation in Pain Knee Left [place], [place] [address] [place] [phone] Social History Tobacco Use Types Packs/Day [...] or relatives? How often do you attend anabaptist or gnosticism More than 4 time s per year 06/21/2021 services? Do you belong to any clubs or organizations Yes 06/21/2021 such as anabaptist groups, unions, fraternal or athletic groups, or [...] slept in a nursing home (including now)? Sex Assigned at Date Recorded Female 06/21/2021 12:52 PM FINISH SANDER documented as of this encounter Progress Notes Jimbo Gallegos P.T., D.P.T. - 05/02/2021 8:00 AM CST [facility] Physical Therapy Outpatient Treatment Note Patient Name: Felecia Cardenas Referring Provider: Jordan Chang III, M.D., M.P.H. [address] [place] [phone] Rehab Diagnosis: 1. History Of Falling 2. Pain Back Thoracic 3. Pain Knee Left Total Visit Count: 3 Visit Count since last G-Codes: 3 Treatment Date: 05/02/2021 Certification Dates: 04/22/2021 to 06/03/21 Visit Count this POC: 2 out of 12 SKOOG OPERATOR Visit Number: na Precautions/Special Considerations: na SUBJECTIVE: Pt states she attempted her LE exercises at home and notices sharp pain at her Lt knee, posterior area. Pt still has significant headache today. Pt felt STM was helpful to manage her neck tightness after her last PT session. She states her Lt toes turns to purple with prolong dependent position like sitting. 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 Progressed her Lt LE stabilization exercises within her pain limit, avoiding deep squat and SLR. Low suspicion of having DVT. Encouraged her to rest her Lt knee at least 1-2 days after performing her exercise program. Patient response to treatment: good PLAN: Lt Knee stabilization exercises Time Spent with Patient Therapeutic Exercise (min): 20 min Manual Therapy (min): 25 min Time Calculation Total Timed Units (min): 45 min Total Treatment Time (min): 45 min Electronically signed by: Jimbo Gallegos P.T., D.P.T. 05/02/21 8:42 AM FINISH SANDER Department of Physical Medicine and Rehabilitation in [address] [phone] Dept: [phone] SH SANDER documented in this encounter Plan of Treatment Upcoming Encounters Date Type Specialty Care Team Description 04/22/2022 Appointment Laboratory Medicine Meryl Julio M.D. [facility] [place], [place] [address] (Hector martin) 04/29/2022 Office Visit Endocrinology Meryl Julio M .D. [address] [place], [place] [address] (Hector martin) documented as of this encounter Visit Diagnoses Diagnosis History Of Falling Pain Back Thoracic Pain Knee Left documented in this encounter Care Teams Inspector Poising Relationship Specialty Start Date End Date Elsewhere, Pcp PCP - General Family Medicine 01/15/21 05/05/21 documented as of this encounter
--- OUTSIDE RECORDS SUMMARY | 2022-03-06 07:05 | XMS_ITS | Encounter Summary ---
:1995 Author Organization [facility] Address [address] [place] [address] Care Team Providers Name Role Phone Elsewhere, Pcp Primary Care Provider Unavailable Reason for Referral Physical Therapy (Routine) - Closed Specialty Diagnoses / Procedures Referred By Contact Refer red To Contact Diagnoses History Of Falling Pain Back Thoracic Pain Knee Left Jordan Chang III, [facility] Procedures PT Evaluate and treat Willy, M.P.H. [address] [place] [address] Referral ID Status Reason Start Date Expiration Date Visits Requ ested Visits Authorized [id number] Closed 03/22/2021 05/24/2021 1 1 utpatient (Routine) - Closed Specialty Diagnoses / Procedures Referred By Contact Refer red To Contact Preventive Medicine Diagnoses Jordan Peralta III, [facility] David Aguilera, M.P.H. [address] [place] [address] Referral ID Status Reason Start Date Expiration Date Visits Requ ested Visits Authorized [id number] Closed 03/22/2021 03/22/2022 1 1 Scheduling Instructions F/u in 3 weeks after PT started and upda te restrictions Reason for Visit Reason Comments Follow-up Work Related Injury Outpatient (Routine) - Closed Specialty Diagnoses / Procedures Referred By Contact Refer red To Contact Preventive Medicine Diagnoses recheck Jordan Chang III, [facility] Willy, M.P.H. [address] [facility] [place] [address] Referral ID Status Reason Start Date Expiration Date Visits Requ ested Visits Authorized [id number] Closed 03/15/2021 03/15/2022 1 1 Encounter Details Date Type Department Care Team Description 03/22/2021 Office Visit Department of Jordan Chang History Of Falling (Primary Dx); Occupational Medicine Willy PASCAL, M.P.H. Pain Back Thoracic; [place], [place] [address] [facility] Pain Knee Left; [address] [place], [place] Retur n To Work Status Examination [phone] [place] [address] [phone] Social History Tobacco Use Types Packs/Day Years [...] How often do you attend mormon or catholic More than 4 time s per year [...] to pay for the very basics like [employer] 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 - 03/22/2021 11:00 AM CDT Images from the original note were not included. 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 ELSEWHERE, PCP CHIEF COMPLAINT/REASON FOR VISIT Follow-up and Work Related Injury HISTORY OF PRESENT ILLNESS [...] with the assistance of another nurse. The health and safety consultant checked in and she reported the injury [...] injured a few years ago at a jail during a patient movement and she had to have surgery. Since the onset of the pain, the symptoms For back on the left side has been more tight and sore. She states that her left knee also does have some tenderness and feels bit hesitant on stairs.. Past history of work-related/WC injury: yes, 2013. 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 Patientmovement. Surgery. no impairment. No restrictions. No current work restrictions and was sent here to [facility] by OHZane RN. 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 [phone]. 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 Background Medical History: [...] No Current lives at with her in [place], [place]. 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 TODAY: Pain is rated 2/10 in her upper back on right sided below shoulder blade. She feels like it needs to be popped. Associated symptoms: pain at night and it does move up to her right neck. In terms of her left knee, she does still have some popping especially with using stairs but not giving way. She feels it is tender in the same spot. States that her knee did have surgery in the pastbut she was doing fine prior to this injury and did not have these symptoms before this injury. Current pain medication/control: Tylenol alternating with Motrin. She did not think the flexeril didmuch at all and did not make her sleepy. Any specialty care following: Was unable to see her normal chiropractor and saw a new one and she did not feel like it helped. 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 Impact on ability to accomplish home activities/hobbies: Just got in February and her husbandis helping with chores. Impact on ability to acccomplish ADLs: Chores, no problem. . REVIEW OF SYSTEMS Musculoskeletal: Positive for arthralgias, back pain, pain or stiffness in the joints and muscle pain/stiffness. Neurological: Negative for numbness or shooting pain in hands, arms, legs, or feet and weakness in arms or legs. MEDICAL HISTORY Past Medical History: Diagnosis Date ??? Body Mass Index 40.0 To 44.9 Adult ([facility]) 05/22/2016 Body mass index (BMI) 40.0-44.9, adult Rule activated problem due to BMI 40-44 posted on 05/22 at 08:45 POCKET GRINDER OPERATOR. ??? Migraine Headache 08/05/2018 ??? Obstructive Sleep Apnea Adult 10/14/2016 ??? Overweight Body Mass Index 25-29.9 Adult 05/22/2016 Body mass index (BMI) 40.0-44.9, adult Rule activated problem due to BMI 40-44 posted on 05/22 at 08:45 POCKET GRINDER OPERATOR. ??? Polycystic Ovary Syndrome 08/06/2017 ??? Rhinitis [...] Left ??? Return To Work Status Examination SURGICAL HISTORY Past Surgical History: Procedure Laterality Date ??? APPENDECTOMY N/A Appendectomy ??? ARTHROSCOPY KNEE Right 04/2015 ??? CHOLECYSTECTOMY N/A Cholecystectomy ??? FUNCTIONAL ENDOSCOPY SINUS SURGERY WITH NAVIGATION Right 10/08/2018 Procedure: FUNCTIONAL ENDOSCOPY SINUS SURGERY WITH NAVIGATION Septoplasty and Bilateral turbinate reduction; Surgeon: Nisa Kahn M.D.; Location: [facility] OR ??? OTHER CONVERTED SHX (SEE COMMENT) N/A 03/21/2011 >1. ERCP. 2. Needle knife and completion biliary sphincterotomy. ??? OTHER CONVERTED SHX (SEE COMMENT) N/A 03/11/2010 >EGD with small bowel, gastric, and esophageal biopsies. ??? TOTAL KNEE ARTHROPLASTY Left 09/03/2011 partial total knee CURRENT MEDICATIONS Current Outpatient Medications Medication Sig Dispense Refill ??? cyclobenzaprine (FLEXERIL) 5 mg tablet Take 1 tablet (5 mg total) by mouth at bedtime as needed for muscle spasms for up to 10 days. 10 tablet 0 ??? eletriptan (RELPAX) 40 [...] (TWO) TIMESA DAY. 60 capsule 11 ??? TENS unit and electrodes (Cefaly) combo pack Acute treatment is for 60 minutes. Preventive treatment is 20 min per day. 1 each 0 ??? spironolactone (ALDACTONE) 50 mg tablet Take 1 tablet (50 mg total) by mouth 2 (two) times a day. (Patient not taking: Reported on 03/22/2021 ) 180 tablet 0 ??? tiZANidine (ZANAFLEX) 4 mg capsule Take 1 capsule (4 mg total) by mouth 3 (three) times a day asneeded for muscle spasms. 30 capsule 0 No current facility-administered medications for this visit. PHYSICAL EXAMINATION OBJECTIVE There were no vitals filed for this visit. Constitutional Appearance: Normal appearance. HENT Head: Normocephalic. Eyes Extraocular Movements: Extraocular movements intact. Pupils: Pupils are equal, round, and reactive to light. Musculoskeletal Back: Right knee: Crepitus present. No deformity. No patellar tendon tenderness. No LCL laxity, MCL laxity, ACL laxity or PCL laxity. Normal meniscus. Normal pulse. Instability Tests: Anterior drawer test negative. Posterior drawer test negative. Anterior Pearl test negative. Medial Keily test negative and lateral Keily test negative. Left knee: Crepitus present. No deformity, effusion or ecchymosis. Normal range of motion. Tenderness present. No patellar tendon tenderness. No LCL laxity, MCL laxity, ACL laxity or PCL laxity.Normalmeniscus. Instability Tests: Anterior drawer test negative. Posterior drawer test negative. Anterior Pearl test negative. Medial Keily test negative and lateral Keily test negative. Legs: Skin General: Skin is warm. Neurological General: No focal deficit present. Mental Status: She is alert and oriented to person, place, and time. Sensory: No sensory deficit. Motor: No weakness. Deep Tendon Reflexes: Reflexes normal. Psychiatric Mood and Affect: Mood normal. Behavior: Behavior normal. Thought Content: Thought content normal. Judgment: Judgment normal. DIAGNOSTICS --Imaging Reviewed: Diagnostics 11/19/2008 XR Thoracic [...] To Work Status Examination Felecia Cardenas returns to Occupational Medicine for f/u evaluation for an injury that occurred 03/09/2021. PLAN 1. History Of Falling While at work individual collapsed onto Ms. Cardenas and fell into patient edge of bed. 2. Pain Back Thoracic Right sided thoracic back pain that appears to be myofascial and more focused today to be in the right rhomboid area. XR 11/19/2008 dextroscoliosis. Flexeril 5mg qhs Rx last visit had no effect and will Rx Zanaflex today. She is seeing her own personal chiropractor. Will refer to proper Physical Therapy today for possible graston and dry needling. 3. Pain Left Knee Left knee exam continues to show stable joint. Noted some crepitus bilaterally and will order Left knee XR today, especially with past hx of Left knee of a work-related injury that resulted in major surgical repair. 2013-no Op note, but appears by history to have not required PPD/Impairment, no permanent restrictions. Will try to obtain Op note and physical therapy order as above can also assist withknee. OTC antiinflammatories for now and work restrictions for no patient movement. 4. Return to Work Status Examination There are no diagnoses linked to this encounter. Work status: No direct patient contact/patient transfers. No lifting overall body greater than 10# max. Please allow for the ability to change positions every hour to stretch for 2-5 minutes as needed.Limit prolonged usage of stairs to more rare occasion. Limit repetitive bending twisting at low backto occasional as tolerated. Preference for seated duties with the ability to change positions every 1 hour to stretch.The patient indicates understanding of these issues and agrees with the plan. 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 Work restrictions completed today and in Letters section with copy given/mailed to patient. MMI: pending PPD: pending Reevaluation in 2-3 weeks after PT. EDUCATION We discussed the diagnosis and treatment plan in detail. The patient expressed understanding of the content. No apparent learning barriers were identified. A total of 25 minutes was spent today in history, examination, review of his chart, counseling education and coordination of care. Jordan Chang III, M.D., M.P.H. documented in this encounter Plan of Treatment Upcoming Encounters Date Type Specialty Care Team Description 04/22/2022 Appointment Laboratory Medicine Meryl Julio M.D. [address] [place], [place] [address] (Wo rk) 04/29/2022 Office Visit Endocrinology Meryl Julio M .D. [address] [place], [place] [address] (Wo rk) Scheduled Referrals Name Type Priority Associated Order Schedule Diagnoses Preventive Medicine Outpatient Referral Routine E xpected: office visit 04/12/2021 (clinic) (Approximate), Expires: 03/22/2024 documented as of this encounter Results DX Knee Left 4+ [...] Knee Left Return To Work Status Examination History Of Falling Pain Back Thoracic Pain Knee Left documented in this encounter Care Teams Tufting Machine Operator Relationship Specialty Start Date End Date Elsewhere, Pcp PCP - General Family Medicine 01/15/21 05/05/21 documented as of this encounter
--- OUTSIDE RECORDS SUMMARY | 2022-03-06 07:05 | XMS_ITS | Encounter Summary ---
:1995 Author Organization [facility] Address [address] [place] [address] Care Team Providers Name Role Phone Jerry Patterson M.D. Primary Care Provider Reason for Visit Reason Comments COVID Nurse Line Encounter Details Date Type Department Care Team Description 05/22/2021 Clinical Communication Division of Andrea Hernández Nurse Mili [facility] Internal M, R.N., [facility] [phone] [place], in (Work) [place], [place] [address] [place] [address] Social History Tobacco Use Types Packs/Day Years [...] or relatives? How often do you attend adventist or lutheran More than 4 time s per year 06/21/2021 services? 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 documented as of this encounter Miscellaneous Notes Telephone Encounter - Andrea Hernández R.N., CCRP - 05/22/2021 5:12 PM DESIGN DRAFTER CHIEF COVID-19 Nurse Line Screening ASSESSMENT Initial Screening Pathway Select appropriate pathway: : Adult In the last 48 hours, have you had a fever* OR symptoms that are unrelated to a preexisting illness?: New headache,New muscle aches,New chills (SEVER HEADACHE, CONGESTION) COVID Symptomatic Screening Do you have any of the following urgent symptoms?: No urgent symptoms noted (Continue Screening) Have you received a COVID-19 vaccine in the last 72 hours? : No vaccine received (Continue Screening) Have you had close contact* with a person who has a LABORATORY CONFIRMED case of COVID-19 in the past 14 days?: No (Continue Screening) Have you tested positive for COVID-19 in the last 45 days?: No. COVID-19 testing is indicated (Continue Screening for Additional Testing) Additional Screening for Influenza, RSV and Strep Select appropriate region: : [place] Do you have any of the following respiratory syntonical virus (RSV) complications? : No complications noted (Continue Screening) Do you have any of the following high risk influenza criteria?: Compromised immune system* Based on your last response, you are considered high risk for Influenza complications and may benefit taking a medication called Tamiflu?? (Oseltamivir). Are you interested in pursuing a prescription for Tamiflu?? (Oseltamivir)?: Yes and patient is an established [facility] patient*. When screening complete, run the Influenza Management protocol. (Continue Screening) Are all of the following Strep criteria met? : Age is between 18-75 years,No, all criteria are not met. Influenza testing is indicated. (End Screening) Symptom Onset Date of symptom onset: 05/21/21 Testing Recommendation Endpoint Is testing recommended? : Recommended to test Further Triage Needs Any further triage needs? : No further concerns noted. PLAN Endpoint recommendation: Symptomatic testing indicated, advised to be swabbed for COVID-19 and Influenza, sent to [facility]: An appointment is needed for testing. Call [phone] during thehours of Mon-Fri 8 am - 4 pm [...] frequently with soap and water, use hand information systems planner if soap and water aren't available. -Wear [...] counter medications as needed for other symptoms. If you have received a negative COVID-19 test result and continue to have new or worsening symptoms after 72 hours please call the COVID Nurse Line to assess if you need repeat testing or reach out to your Primary Care Provider for guidance. Education: Patient/caregiver able to teach back Patient agreeable to plan of care: Yes The following references were used: [facility] novel coronavirus (COVID- 19) resources Nursing judgement GN DRAFTER CHIEF documented in this encounter Plan of Treatment Upcoming Encounters Date Type Specialty Care Team Description 04/22/2022 Appointment Laboratory Medicine Meryl Julio M.D. [address] [place], [place] [address] (Wo rk) 04/29/2022 Office Visit Endocrinology Meryl Julio M .D. [address] [place], [place] [address] (Wo rk) documented as of this encounter Visit Diagnoses Not on filedocumented in this encounter Care Teams Debug Technician Relationship Specialty Start Date End Date Jerry Patterson M.D. PCP - General Family Medicine 05/06/21 [address] [place] [phone] documented as of this encounter
--- OUTSIDE RECORDS SUMMARY | 2022-03-06 07:06 | XMS_ITS | Encounter Summary ---
:1995 Author Organization [facility] Address [address] [place] [address] Care Team Providers Name Role Phone Audrey Burleson M.D. Primary Care Provider [phone] Reason for Visit Reason Comments Med Refill Encounter Details Date Type Department Care Team Description 09/16/2020 Refill Department of Endocrinology in [place] Parikh M.D. Med Refill [address] [phone] Social History Tobacco Use Types Packs/Day Years [...] or relatives? How often do you attend samaritan or episcopal More than 4 time s per year 06/21/2021 services? 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 [address] [place], [place] [address] (Wo rk) 04/29/2022 Office Visit Endocrinology Meryl Julio M .D. [address] [place], [place] [address] (Wo rk) documented as of this encounter Visit Diagnoses Diagnosis Polycystic Ovary Syndrome - Primary documented in this encounter Care Teams Industrial Truck Operator Relationship Specialty Start Date End Date Audrey Burleson M.D. PCP - General Family Medicine 02/04/18 01/14/21 [address] [place] [phone] documented as of this encounter
--- OUTSIDE RECORDS SUMMARY | 2022-03-06 07:06 | XMS_ITS | Encounter Summary ---
:1995 Author Organization [facility] Address [address] [place] [address] Care Team Providers Name Role Phone Audrey Burleson M.D. Primary Care Provider [phone] Encounter Details Date Type Department Care Team Description 06/27/2020 Hospital Encounter Department of [place], Thyroidi tis Laboratory Medicine, [facility], in [address] [address] Social History Tobacco Use Types Packs/Day [...] or relatives? How often do you attend protestant or catholic More than 4 time s per year 06/21/2021 services? 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 May repeat one time after 2 hours if needed. Limit the use to no more than 9 days a month (twice a week). levothyroxine Take 1 tablet (100 90 tablet 3 04/24/202005/2020 (SYNTHROID, LEVOTHROID) mcg total) by mouth 100 mcg every morning before tabletIndications: breakfast. Thyroiditis Deric's metFORMIN XR TAKE 2 TABLETS BY 120 tablet 7 01/23/202009/17 (GLUCOPHAGE-XR) 500 mg MOUTH TWICE A DAY 24 hr tablet propranoloL (INDERAL LA) Take 1 capsule (80 60 capsule 11 02/22/2021 80 mg 24 hr mg total) by mouth 2 capsuleIndications: (two) times a day. Migraine Headache spironolactone TAKE 1 TABLET BY 60 tablet 5 01/23/202006/26 (ALDACTONE) 50 mg MOUTH TWICE A DAY tabletIndications: Polycystic Ovary Syndrome documented as of this encounter Plan of Treatment Upcoming Encounters Date Type Specialty Care Team Description 04/22/2022 Appointment Laboratory Medicine Meryl Julio M.D. [address] [place] [address] (Wo rk) 04/29/2022 Office Visit Endocrinology Meryl Julio M .D. [address] [place] [address] (Wo rk) documented as of this encounter Procedures Procedure Name Priority Date/Time Associated Diagnosis Comme nts THYROID-STIMULATING Routine 06/27/2020 7:48 AM Thyroiditis Re sults for this HORMONE-SENSITIVE FAX MACHINE REPAIRER Deric's procedure are in (S-TSH) the results section. T4 (THYROXINE), Routine 06/27/2020 7:48 AM Thyroiditis Result s for this FREE, S FAX MACHINE REPAIRER Deric's procedure are i n the results section. documented in this encounter Results (ABNORMAL) T4 (Thyroxine), Free (06/27/2020 7:48 AM FAX MACHINE REPAIRER) athologist Signature T4 1.8 (H) 0.9 - 1.7 06/27/2020 MKTO (Thyroxine), ng/dL 8:25 AM FAX MACHINE REPAIRER Free, P Comment: Biotin has been identified by the landen lopes as a potential interfering substance. ??Higher concentr ations of biotin may be found in multivitamins, hair/nail supple ments, and workout supplements. ??If the result does not [facility] clinical observations, repeat testing after patient refrains fr om the use of supplements for at least 12 hours. Specimen Anatomical Collection Method Collection Time Receive d Time (Source) Location / / Volume Laterality Blood (Blood, 06/27/2020 7:48 AM 06/27/19 7:55 Venous) FAX MACHINE REPAIRER AM FAX MACHINE REPAIRER Jalil Parikh M.D. LAB BLOOD ADD-ON Performing Organization Address City/State/ZIP Code Phon e Number [facility]- [address] [place] [address] [place] [address] S-TSH (Thyroid-Stimulating Hormone - Sensitive) (06/27/2020 7:48 AM FAX MACHINE REPAIRER) athologist Signature TSH, Sensitive 3.2 0.3 - 4.2 06/27/2020 MKTO mIU/L 8:25 AM FAX MACHINE REPAIRER Specimen Anatomical Collection Method Collection Time Receive d Time (Source) Location / / Volume Laterality Blood (Blood, 06/27/2020 7:48 AM 06/27/19 7:55 Venous) FAX MACHINE REPAIRER AM FAX MACHINE REPAIRER Jalil Parikh M.D. LAB BLOOD ADD-ON Performing Organization Address City/State/ZIP Code Phon e Number [facility]- [address] [place] [address] [place] [address] System in [address] documented in this encounter Visit Diagnoses Diagnosis Thyroiditis Deric's documented in this encounter Care Teams User Interface Artist Relationship Specialty Start Date End Date Audrey Burleson M.D. PCP - General Family Medicine 02/04/18 01/14/[address] [place] [phone] documented as of this encounter
--- OUTSIDE RECORDS SUMMARY | 2022-03-06 07:06 | XMS_ITS | Encounter Summary ---
:[address] Author Organization [facility] Address [address] [place] [address] Care Team Providers Name Role Phone Elsewhere, Pcp Primary Care Provider Unavailable Reason for Visit Reason Comments Med Refill Encounter Details Date Type Department Care Team Description 02/22/2021 Refill Department of Neurology in [facility] [place] Med Refill [place], [place] P.APhillip., M.S. [address] [place] [address] Social History Tobacco Use Types Packs/Day Years [...] How often do you attend yazdanism or baptism More than 4 time s per year [...] or slept in a correction (including now)? 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 - 02/22/2021 11:18 AM CDT [place] 08/17/20 [place] 03/19/21 documented in this encounter Plan of Treatment Upcoming Encounters Date Type Specialty Care Team Description 04/22/2022 Appointment Laboratory Medicine Meryl Julio M.D. [address] [place], [place] [address] (Hector martin) 04/29/2022 Office Visit Endocrinology Meryl Julio M .D. [address] [place], [place] [address] (Hector martin) documented as of this encounter Visit Diagnoses Diagnosis Migraine Headache documented in this encounter Care Teams Dark Room Attendant Relationship Specialty Start Date End Date Elsewhere, Pcp PCP - General Family Medicine 01/15/21 05/05/21 documented as of this encounter
--- OUTSIDE RECORDS SUMMARY | 2022-03-06 07:06 | XMS_ITS | Encounter Summary ---
:1995 Author Organization [facility] Address [address] [place] [address] Care Team Providers Name Role Phone Audrey Burleson M.D. Primary Care Provider [phone] Encounter Details Date Type Department Care Team Description 12/12/2020 Orders Only Department of Sleep Edelmira Villafana, Obstru ctive Sleep Medicine in Willy Lozano Apnea Adult (Primary [address] Dx) 101 [facility] [address] [place] [address] [place] [address] [phone] Social History Tobacco Use Types Packs/Day Years [...] How often do you attend druze or restorationist More than 4 time s per year [...] or slept in a jail (including now)? 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 [address] [place] [address] (Wo rk) 04/29/2022 Office Visit Endocrinology Meryl Julio M .D. [address] [place] [address] (Wo rk) documented as of this encounter Visit Diagnoses Diagnosis Obstructive Sleep Apnea Adult - Primary documented in this encounter Care Teams Emissions Testing Technician Relationship Specialty Start Date End Date Audrey Burleson M.D. PCP - General Family Medicine 02/04/18 01/14/21 [address] [place] [phone] documented as of this encounter
--- OUTSIDE RECORDS SUMMARY | 2022-03-06 07:06 | XMS_ITS | Encounter Summary ---
:1995 Author Organization [facility] Address [address] [place] [address] Care Team Providers Name Role Phone Audrey Burleson M.D. Primary Care Provider [phone] Encounter Details Date Type Department Care Team Description 04/13/2020 Hospital Encounter Department of Jalil Parikh, Hyper thyroidism Laboratory Medicine, [facility], in [place], [place] [address] [facility] [place] [address] Social History Tobacco Use Types Packs/Day Years [...] or relatives? How often do you attend pentecostalism or christian More than 4 time s per year 06/21/2021 services? Do you belong to any clubs or organizations Yes 06/21/2021 such as pentecostalism groups, unions, fraternal or athletic groups, or [...] to pay for the very basics like [employer] hat hard 06/21/2021 food, housing, medical care, [...] slept in a skilled nursing (including now)? 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 levothyroxine TAKE 1 TABLET BY 30 tablet 5 01/23/202004/24 (SYNTHROID, LEVOTHROID) MOUTH EVERY MORNING 88 mcg tablet BEFORE BREAKFAST metFORMIN XR TAKE 2 TABLETS BY 120 [...] Ovary Syndrome documented as of this encounter Miscellaneous Notes Result Encounter Note - Jalil Parikh M.D. - 04/23/2020 11:44 PM CST Please inform patient with below: TSH increased to 4.4- recommend to increase Levothyroxine dose to 100 mcg daily, repeat labs in 2 mo. Jalil Parikh M.D. COURSE SUPERINTENDENT documented in this encounter Plan of Treatment Upcoming Encounters Date Type Specialty Care Team Description 04/22/2022 Appointment Laboratory Medicine Meryl Julio M.D. [address] [place] [address] (Wo rk) 04/29/2022 Office Visit Endocrinology Meryl Julio M .D. [facility] [place], [place] [address] (Wo rk) documented as of this encounter Procedures Procedure Name Priority Date/Time Associated Diagnosis Comme nts THYROID-STIMULATING Routine 04/13/2020 2:06 PM Hyperthyroidism Results for this HORMONE-SENSITIVE GOLF COURSE SUPERINTENDENT procedure are in (S-TSH) the results section. T4 (THYROXINE), Routine 04/13/2020 2:06 PM Hyperthyroidism Res ults for this FREE, S GOLF COURSE SUPERINTENDENT procedure are i n the results section. documented in this encounter Results T4 (Thyroxine), Free (04/13/2020 2:06 PM GOLF COURSE SUPERINTENDENT) P athologist Signature T4 (Thyroxine), 1.5 0.9 - 1.7 04/13/2020 MKTO Free, P ng/dL 5:43 PM GOLF COURSE SUPERINTENDENT Comment: Biotin has been identified by the landen lopes as a potential interfering substance. ??Higher concentr ations of biotin may be found in multivitamins, hair/nail supple ments, and workout supplements. ??If the result does not [facility] clinical observations, repeat testing after patient refrains fr om the use of supplements for at least 12 hours. Specimen Anatomical Collection Method Collection Time Receive d Time (Source) Location / / Volume Laterality Blood (Blood, 04/13/2020 2:06 PM 04/13/20 5:15 Venous) GOLF COURSE SUPERINTENDENT PM GOLF COURSE SUPERINTENDENT Jalil Parikh M.D. LAB BLOOD ADD-ON Performing Organization Address City/State/ZIP Code Phon e Number [facility]- [address] [place] [address] [place] [address] (ABNORMAL) S-TSH (Thyroid-Stimulating Hormone - Sensitive) (04/13/2020 2:06 PM GOLF COURSE SUPERINTENDENT) P athologist Signature TSH, Sensitive 4.4 (H) 0.3 - 4.2 04/13/2020 [facility] mIU/L 5:43 PM GOLF COURSE SUPERINTENDENT Comment: Biotin has been identified by the landen lopes as a potential interfering substance. ??Higher concentr ations of biotin may be found in multivitamins, hair/nail supple ments, and workout supplements. ??If the result does not [facility] clinical observations, repeat testing after patient refrains fr om the use of supplements for at least 12 hours. Specimen Anatomical Collection Method Collection Time Receive d Time (Source) Location / / Volume Laterality Blood (Blood, 04/13/2020 2:06 PM 04/13/20 5:15 Venous) GOLF COURSE SUPERINTENDENT PM GOLF COURSE SUPERINTENDENT aJlil Parikh M.D. LAB BLOOD ADD-ON Performing Organization Address City/State/ZIP Code Phon e Number [facility]- [address] [place] [address] [place] [address] System [address] documented in this encounter Visit Diagnoses Diagnosis Hyperthyroidism documented in this encounter Care Teams Lead Generation Representative Relationship Specialty Start Date End Date Audrey Burleson M.D. PCP - General Family Medicine 02/04/18 01/14/21 [address] [place] [phone] documented as of this encounter
--- OUTSIDE RECORDS SUMMARY | 2022-03-06 07:06 | XMS_ITS | Encounter Summary ---
:1995 Author Organization [facility] Address [address] [place] [address] Care Team Providers Name Role Phone Audrey Burleson M.D. Primary Care Provider [phone] Encounter Details Date Type Department Care Team Description 03/22/2020 Clinical Communication Department of Juan Manuel Kraus [facility] in Obie Sneed M.D. [place] [address] [place], [place] [phone] Social History Tobacco Use Types Packs/Day Years [...] or relatives? How often do you attend baptist or islam More than 4 time s per year 06/21/2021 services? Do you belong to any clubs or organizations Yes 06/21/2021 such as baptist groups, unions, fraternal or athletic groups, or [...] a [place] [facility] (including now)? 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 I'll touch base with the ENT nurses. Telephone Encounter - Nisa Kahn M.D. - 03/22/2020 11:08 AM CDT Thanks for checking, I do not know if scope room is reserved prior to appointments. I do not believethat we are currently resolving scope room ahead of time. I do not know if nursing has changed this and I would appreciate if you could reach out to the ENT nurses however from my standpoint I am on aware of scope room being needed to be reserved. Thank you. Telephone Encounter - Alexandra Jean Baptiste - 03/22/2020 11:[address] Dee, The patient's 06/05/20 appointment is for a procedure, but the scope room isn't reserved for it. Should it be? I wanted to just double-check before I call her to reschedule. If the room is needed, I'll be sure to reserve it with the reschedule. Thanks! Alexandra documented in this encounter Plan of Treatment Upcoming Encounters Date Type Specialty Care Team Description 04/22/2022 Appointment Laboratory Medicine Meryl Julio M.D. [facility] [place], [place] [address] (Wo rk) 04/29/2022 Office Visit Endocrinology Meryl Julio M .D. [facility] [place], [place] [address] (Wo rk) documented as of this encounter Visit Diagnoses Not on filedocumented in this encounter Care Teams Grinder Set Up Operator Gear Tool Relationship Specialty Start Date End Date Audrey Burleson M.D. PCP - General Family Medicine 02/04/18 01/14/21 [facility] [address] [place] [phone] documented as of this encounter
--- OUTSIDE RECORDS SUMMARY | 2022-03-06 07:06 | XMS_ITS | Encounter Summary ---
:1995 Author Organization [facility] Address [address] [place] [address] Care Team Providers Name Role Phone Audrey Burleson M.D. Primary Care Provider [phone] Reason for Visit Reason Comments Med Refill - Metformin & Spironolactone Encounter Details Date Type Department Care Team Description 11/14/2020 Refill Department of Gordy Norris, Med Refil l - Metformin & Endocrinology in [place], R.N. Spironolactone [place] [phone] [place] [address] ([facility]) [place] [address] Social History Tobacco Use Types Packs/Day [...] How often do you attend faith or roman catholic More than 4 time s per [...] at Date Recorded Female 06/21/2021 12:52 PM CHARGE HAND documented as of this encounter Miscellaneous Notes Telephone Encounter - Gordy Norris R.N. - 11/14/2020 11:03 AM CDT Patient is requesting refill of medications before you leave. Last seen 08/17/20. Pending an extra 90days of medication. She also wanted Levothyroxine refill, but did not pend to you as that is good through April. documented in this encounter Plan of Treatment Upcoming Encounters Date Type Specialty Care Team Description 04/22/2022 Appointment Laboratory Medicine Meryl Julio M.D. [address] [place] [address] (Hector martin) 04/29/2022 Office Visit Endocrinology Meryl Julio M .D. [address] [place], [place] [address] (Hector martin) documented as of this encounter Visit Diagnoses Diagnosis Polycystic Ovary Syndrome documented in this encounter Care Teams Beach Attendant Relationship Specialty Start Date End Date Audrey Burleson M.D. PCP - General Family Medicine 02/04/18 01/14/21 [facility] S [facility] [place] [phone] documented as of this encounter
--- OUTSIDE RECORDS SUMMARY | 2022-03-06 07:06 | XMS_ITS | Encounter Summary ---
:1995 Author Organization [facility] Address [address] [place] [address] Care Team Providers Name Role Phone Elsewhere, Pcp Primary Care Provider Unavailable Reason for Visit Reason Comments Med Refill Encounter Details Date Type Department Care Team Description 01/22/2021 Refill Department of Endocrinology in [place] Parikh M.D. Med Refill [address] [phone] Social History Tobacco Use Types Packs/Day Years [...] or relatives? How often do you attend confucianism or catholic More than 4 time s per year 06/21/2021 services? Do you belong to any clubs or organizations Yes 06/21/2021 such as confucianism groups, unions, fraternal or athletic groups, or [...] to pay for the very basics like [employer] hat hard 06/21/2021 food, housing, medical care, [...] place to sleep or slept in a long-term (including now)? 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 [facility] [place], [place] [address] (Wo veronica) 04/29/2022 Office Visit Endocrinology Meryl Julio M .D. [address] [place], [place] [address] (Wo veronica) documented as of this encounter Visit Diagnoses Diagnosis Polycystic Ovary Syndrome documented in this encounter Care Teams Director Of Acquisition Marketing Relationship Specialty Start Date End Date Elsewhere, Pcp PCP - General Family Medicine 01/15/21 05/05/21 documented as of this encounter
--- OUTSIDE RECORDS SUMMARY | 2022-03-06 07:06 | XMS_ITS | Encounter Summary ---
:1995 Author Organization [facility] Address [address] [place] [address] Care Team Providers Name Role Phone Elsewhere, Pcp Primary Care Provider Unavailable Reason for Visit Reason Comments Labs Only labs for endo establishing Encounter Details Date Type Department Care Team Description 01/22/2021 Clinical Communication Department of Jerry Patterson, Lab s Only (labs for Family Medicine in M.D. 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 - 01/22/2021 12:04 PM CDT Labs order has been placed. She can have it done today. Telephone Encounter - Madiha Medina REddi - 01/22/2021 9:08 AM CDT Do you want to reorder the labs prior to appointment or see her first? Telephone Encounter - Kristy Bhatt - 01/22/2021 8:44 AM CDT Patient was a former Endocrinology patient in [place] and they do not have a provider anymore so shehas to establish with a PCP. Patient has an appointment on Thursday and is wondering about lab workfor tomorrow morning (she works in [place], off 7:30). Please reorder endo's labs so they can be scheduled tomorrow. Patient is aware of request and will stop at the lab desk to schedule. Can leave detailed message indicating that labs have been ordered. documented in this encounter Plan of Treatment Upcoming Encounters Date Type Specialty Care Team Description 04/22/2022 Appointment Laboratory Medicine Meryl Julio M.D. [address] [place] [address] (Wo rk) 04/29/2022 Office Visit Endocrinology Meryl Julio M .D. [facility] [place], [place] [address] (Wo rk) documented as of this encounter Results Basic Metabolic Panel (01/23/2021 4:58 AM CDT) P athologist Signature Potassium, P 3.6 3.6 - 5.2 01/23/2021 MK[facility] mmol/L 5:35 AM CDT Sodium, P 138 135 - 145 01/23/2021 [facility] mmol/L 5:35 AM CDT Chloride, P 101 98 - 107 01/23/2021 [facility] mmol/L 5:35 AM CDT Bicarbonate, P 25 22 - 29 01/23/2021 [facility] mmol/L 5:35 AM CDT Anion Gap, P 12 7 - 15 01/23/2021 [facility] 5:35 AM CDT BUN (Blood Urea 12 6 - 21 01/23/2021 MKTO Nitrogen), P mg/dL 5:35 AM CDT Creatinine 0.78 0.59 - 01/23/2021 MKTO 1.04 mg/dL 5:35 AM CDT eGFR-Black/Afric >90 >=60 01/23/2021 MKTO an Guinean mL/min/BSA 5:35 AM CDT Comment: ----ADDITIONAL INFORMATION---- Estimated GFR calculated using the 2009 CKD_EPI creatinine equation. eGFR Non-Black/ >90 >=60 mL/min/BSA 01/23/2021 5:35 AM CDT MKTO Comment: ----ADDITIONAL INFORMATION---- Estimated GFR calculated using the 2009 CKD_EPI creatinine equation. Calcium, Total, P 9.9 8.6 - 10.0 mg/dL 01/23/2021 5:35 AM CDT MKTO Glucose, P 74 70 - 140 mg/dL 01/23/2021 5:35 AM CDT M KTO Specimen Anatomical Collection Method Collection Time Receive d Time (Source) Location / / Volume Laterality Blood (Blood, 01/23/2021 4:58 AM 01/24/20 4:59 Venous) CDT AM CDT Jerry Patterson M.D. LAB BLOOD ADD-ON Performing Organization Address City/[facility]/ZIP Code Phon e Number [facility]- [address] [place] [phone] [place] [address] S-TSH (Thyroid-Stimulating Hormone - Sensitive) (01/23/2021 4:58 AM CDT) P athologist Signature TSH, Sensitive 2.7 0.3 - 4.2 01/23/2021 MKTO mIU/L 5:35 AM CDT Specimen Anatomical Collection Method Collection Time Receive d Time (Source) Location / / Volume Laterality Blood (Blood, 01/23/2021 4:58 AM 01/24/20 4:59 Venous) CDT AM CDT Jerry Patterson M.D. LAB BLOOD ADD-ON Performing Organization Address City/[facility] Code Phon e Number [facility]- [address] [place] [phone] [place] [address] documented in this encounter Visit Diagnoses Diagnosis Thyroiditis Deric's - Primary documented in this encounter Care Teams Fisher Reef Net Relationship Specialty Start Date End Date Elsewhere, Pcp PCP - General Family Medicine 01/15/21 05/05/21 documented as of this encounter
--- OUTSIDE RECORDS SUMMARY | 2022-03-06 07:06 | XMS_ITS | Encounter Summary ---
:1995 Author Organization [facility] Address [address] [place] [address] Care Team Providers Name Role Phone Audrey Burleson M.D. Primary Care Provider [phone] Encounter Details Date Type Department Care Team Description 04/09/2020 Clinical Communication Department of [facility] in [place] Sneed M.D. 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 Dee to [place], and would liketo move it to the end of July. She's aware she'll need a swab done. There's an order for that under Active Orders. Thanks! CREW FOREMAN documented in this encounter Plan of Treatment Upcoming Encounters Date Type Specialty Care Team Description 04/22/2022 Appointment Laboratory Medicine Meryl Julio M.D. [address] [place] [address] (Hector martin) 04/29/2022 Office Visit Endocrinology Meryl Julio M .D. [address] [place], [place] [address] (Hector martin) documented as of this encounter Visit Diagnoses Not on filedocumented in this encounter Care Teams Dispatcher Chief Coal Slurry Relationship Specialty Start Date End Date Audrey Burleson M.D. PCP - General Family Medicine 02/04/18 01/14/21 [address] [facility] [place] [phone] documented as of this encounter
--- OUTSIDE RECORDS SUMMARY | 2022-03-06 07:06 | XMS_ITS | Encounter Summary ---
:1995 Author Organization [facility] Address [address] [place] [address] Care Team Providers Name Role Phone Audrey Burleson M.D. 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 [address] [place], [place] [address] (H[place] martin) 04/29/2022 Office Visit Endocrinology Meryl Julio M .D. [address] [place], [place] [address] (Hector martin) documented as of this encounter Procedures Procedure Name Priority Date/Time Associated Diagnosis Comme nts THYROID-STIMULATING Routine 08/14/2020 2:32 PM Thyroiditis Re sults for this HORMONE-SENSITIVE CDT Deric's procedure are in (S-TSH) the results section. T4 (THYROXINE), Routine 08/14/2020 2:32 PM Thyroiditis Result s for this FREE, S CDT Deric's procedure are i n the results section. BASIC METABOLIC Routine 08/14/2020 2:32 PM Polycystic Ovary Re sults for this PANEL, S/P CDT Syndrome procedure are i n the results section. SARS CORONAVIRUS-2 Routine 08/14/2020 2:28 PM Encounter For Re sults for this RNA, V CDT Screening For Other procedur e are in Viral Diseases the results (COVID-19) section. documented in this encounter Results Basic Metabolic Panel (08/14/2020 2:32 PM CDT) P athologist Signature Potassium, P 4.0 3.6 - 5.2 08/14/2020 MK[facility] mmol/L 3:36 PM CDT Sodium, P 138 135 - 145 08/14/2020 [facility] mmol/L 3:36 PM CDT Chloride, P 102 98 - 107 08/14/2020 [facility] mmol/L 3:36 PM CDT Bicarbonate, P 27 22 - 29 08/14/2020 [facility] mmol/L 3:36 PM CDT Anion Gap, P 9 7 - 15 08/14/2020 [facility] 3:36 PM CDT BUN (Blood Urea 12 6 - 21 08/14/2020 MKTO Nitrogen), P mg/dL 3:36 PM CDT Creatinine 0.71 0.59 - 08/14/2020 [facility]TO 1.04 mg/dL 3:36 PM CDT eGFR-Black/Afric >90 >=60 08/14/2020 MKTO an Montenegrin mL/min/BSA 3:36 PM CDT Comment: ----ADDITIONAL INFORMATION---- Estimated GFR calculated using the 2009 CKD_EPI creatinine equation. eGFR Non-Black/ >90 >=60 mL/min/BSA 08/14/2020 3:36 PM CDT MKTO Comment: ----ADDITIONAL INFORMATION---- Estimated GFR calculated using the 2009 CKD_EPI creatinine equation. Calcium, Total, P 9.6 8.6 - 10.0 mg/dL 08/14/2020 3:36 PM CDT MKTO Glucose, P 94 70 - 140 mg/dL 08/14/2020 3:36 PM CDT M KTO Specimen Anatomical Collection Method Collection Time Receive d Time (Source) Location / / Volume Laterality Blood (Blood, 08/14/2020 2:32 PM 08/15/19 2:41 Venous) CDT PM CDT Jalil Parikh M.D. LAB BLOOD ADD-ON Performing Organization Address City/State/ZIP Code Phon e Number [facility]- [address] [place] [address] [place] [address] (ABNORMAL) T4 (Thyroxine), Free (08/14/2020 2:32 PM CDT) athologist Signature T4 1.9 (H) 0.9 - 1.7 08/14/2020 MKTO (Thyroxine), ng/dL 3:36 PM CDT Free, P Comment: Biotin has been identified by the landen lopes as a potential interfering substance. ??Higher concentr ations of biotin may be found in multivitamins, hair/nail supple ments, and workout supplements. ??If the result does not ma [facility] clinical observations, repeat testing after patient refrains fr om the use of supplements for at least 12 hours. Specimen Anatomical Collection Method Collection Time Receive d Time (Source) Location / / Volume Laterality Blood (Blood, 08/14/2020 2:32 PM 08/15/19 2:41 Venous) CDT PM CDT Jalil Parikh M.D. LAB BLOOD ADD-ON Performing Organization Address City/[facility]/ZIP Code Phon e Number [facility]- [address] [place] [phone] [place] [address] S-TSH (Thyroid-Stimulating Hormone - Sensitive) (08/14/2020 2:32 PM CDT) P athologist Signature TSH, Sensitive 1.7 0.3 - 4.2 08/14/2020 MKTO mIU/L 3:36 PM CDT Specimen Anatomical Collection Method Collection Time Receive d Time (Source) Location / / Volume Laterality Blood (Blood, 08/14/2020 2:32 PM 08/15/19 2:41 Venous) CDT PM CDT Jalil Parikh M.D. LAB BLOOD ADD-ON Performing Organization Address City/[facility]/ZIP Code Phon e Number [facility]- [address] [place] [phone] [place] [address] SARS Coronavirus-2 RNA, V Asymptomatic (08/14/2020 2:28 PM CDT) [facility] gist Method Time Signature SARS-CoV-2 Swab, 08/15/2020 MKTO Specimen Nasopharynx 12:53 AM Source CDT SARS CoV-2 Undetected Undetected 08/15/2020 MKTO RNA, TMA 12:53 AM CDT Comment: SARS-CoV-2 RNA absent. This result does not rule out COVID-19 in the patient, as the sensitivity of the test depends o n the timing of the specimen collection and the quality of the specim en. Result should be correlated with patient's history and clinical presentat ion. ----ADDITIONAL INFORMATION---- This molecular amplification test was pe rformed using the Aptima SARS-CoV-2 assay ([employer] on the [employer] tem under emergency use authorization (EUA) by the U.S. Food and Drug Administ ration. Fact sheets for this EUA assay can be fo und at the following links: For Healthcare Providers: https://www.fd a.gov/media/053011/download For Patients: https://www.fda.gov/media/ 127508/download Specimen Anatomical Collection Method Collection Time Receive d Time (Source) Location / / Volume Laterality Varies 08/14/2020 2:28 PM 4:58 (Nasopharynx) CDT PM CDT Nisa Dee M.D. LAB MICROBIOLOGY - [facility] ORDERABLES Performing Organization Address City/State/[facility] Code Phon e Number [facility]- [address] [place] [phone] [place] [address] System [address] documented in this encounter Visit Diagnoses Diagnosis Thyroiditis Deric's Polycystic Ovary Syndrome Encounter For Screening For Other Viral Diseases (COVID-19) documented in this encounter Additional Health Concerns Infection Onset Date Last Indicated Resolved Time COVID19 Pending 08/14/2020 08/14/2020 08/15/2020 12:53 AM CDT documented as of this encounter Care Teams Sales Rep Relationship Specialty Start Date End Date Audrey Burleson M.D. PCP - General Family Medicine 02/04/18 01/14/21 [address] [place] [address] documented as of this encounter
--- OUTSIDE RECORDS SUMMARY | 2022-03-06 07:06 | XMS_ITS | Encounter Summary ---
:1995 Author Organization [facility] Address [address] [place] [address] Care Team Providers Name Role Phone Audrey Burleson M.D. Primary Care Provider [phone] Reason for Visit Reason Comments Med Refill Encounter Details Date Type Department Care Team Description 07/16/2020 Refill Department of Endocrinology in [place] Parikh M.D. Med Refill [address] [phone] Social History Tobacco Use Types Packs/Day [...] or relatives? How often do you attend anabaptism or judaism More than 4 time s per year 06/21/2021 services? Do you belong to any clubs or organizations Yes 06/21/2021 such as anabaptism groups, unions, fraternal or athletic groups, or [...] to pay for the very basics like [employer] hat hard 06/21/2021 food, housing, medical care, [...] or slept in a fci (including now)? 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 [address] [place], [place] [address] (Wo rk) 04/29/2022 Office Visit Endocrinology Meryl Julio M .D. [address] [place], [place] [address] (Wo rk) documented as of this encounter Visit Diagnoses Diagnosis Polycystic Ovary Syndrome documented in this encounter Care Teams Stereotype Finisher Relationship Specialty Start Date End Date Audrey Burleson M.D. PCP - General Family Medicine 02/04/18 01/14/21 [address] [place] [phone] documented as of this encounter
--- OUTSIDE RECORDS SUMMARY | 2022-03-06 07:06 | XMS_ITS | Encounter Summary ---
:1995 Author Organization [facility] Address [address] [place] [address] Care Team Providers Name Role Phone Audrey Burleson M.D. Primary Care Provider [phone] Encounter Details Date Type Department Care Team Description 06/01/2020 Orders Only [facility] PCP [facility] Alvino Phelan Jr., M.D. [address] [facility] [place], [place] [phone] (Wo rk) Social History Tobacco Use Types [...] or relatives? How often do you attend taoist or denominational More than 4 time s per year 06/21/2021 services? 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 [address] [place], [place] [address] (Wo rk) 04/29/2022 Office Visit Endocrinology Meryl Julio M .D. [address] [place], [place] [address] (Wo rk) documented as of this encounter Visit Diagnoses Not on filedocumented in this encounter Care Teams [employer] Mdm Developer Relationship Specialty Start Date End Date Audrey Burleson M.D. PCP - General Family Medicine 02/04/18 01/14/21 [address] [place] [phone] documented as of this encounter
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
--- OUTSIDE RECORDS SUMMARY | 2022-03-06 07:06 | XMS_ITS | Encounter Summary ---
:1995 Author Organization [facility] Address [address] [place] [address] Care Team Providers Name Role Phone Audrey Burleson M.D. Primary Care Provider [phone] Reason for Referral Outpatient (Routine) - Closed Specialty Diagnoses / Procedures Referred By Contact Refer red To Contact General Surgery Diagnoses Obesity Body Mass Index 30-39.9 Adult Jalil Parikh M.D. [facility] Region [address] [place] [phone] Referral ID Status Reason Start Date Expiration Date Visits Requ ested Visits Authorized [id number] Closed 11/13/2020 11/13/2021 1 1 Scheduling Instructions Please schedule with Nubia Stallworth Reason for Visit Reason Comments Telephone Message Encounter Details Date Type Department Care Team Description 11/06/2020 Clinical Communication Department of [facility], Tele phone Message [place]ocrinology [place], [place] [phone] [place] [phone] Social History Tobacco Use Types Packs/Day [...] or relatives? How often do you attend advent or shinto More than 4 time s per year 06/21/2021 services? 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 - 11/13/2020 3:43 PM CDT Thanks [place], Karla placed referral request, she can schedule at her convenience. Jalil Parikh M.D. Telephone Encounter - [place] Norris R.N. - 11/08/2020 8:30 AM CDT Patient left voicemail stating she has busy schedule so not sure when she would be able to make appointment and was wondering if Dr. Parikh was going somewhere close where she could still see her. Belling Machine Operator called back and left voicemail stating Dr. Parikh is leaving practice and could put in referral [facility] management team so she could have appropriate follow ups. Waiting to hear back. Telephone Encounter - [place] Norris R.N. - 11/07/2020 9:29 AM CDT Left message for patient to call back Telephone Encounter - Jalil Parikh M.D. - 11/07/2020 7:53 AM CDT Thanks for the note [place]. As I will be leaving practice soon, I can refer her to our weight management team so she can have appropriate follow up. Let me know if she is ok with this plan- so I can place order for it. Thanks! Jalil Parikh M.D. Telephone Encounter - [place] Norris R.N. - 11/06/2020 3:25 PM CDT Patient left voicemail today regarding weight loss. Per last office visit note, She is concerned about the weight gain which was 8 kg since last visit. Lifestyle modifications and limiting calorie intake to 1200 per day recommended. If no significant change on weight she will be in touch with me in couple months then we can try phentermine.. Today she states she has been struggling with her weight and was told to provide an update as an appetite suppressor was discussed in last visit and was wondering if that is still an option? documented in this encounter Plan of Treatment Upcoming Encounters Date Type Specialty Care Team Description 04/22/2022 Appointment Laboratory Medicine Meryl Julio M.D. [address] [place] [address] (Wo rk) 04/29/2022 Office Visit Endocrinology Meryl Julio M .D. [address] [place], [place] [address] (Wo rk) Scheduled Referrals Name Type Priority Associated Diagnoses Order S chedule General Surgery - Outpatient Referral Routine Obesity Body Mas s Expected: Bariatric consult Index 30-39.9 Adult (clinic) (Approximate), Expires: 11/14/2023 documented as of this encounter Visit Diagnoses Diagnosis Obesity Body Mass Index 30-39.9 Adult - Primary documented in this encounter Care Teams Digital Strategy Manager Relationship Specialty Start Date End Date Audrey Burleson M.D. PCP - General Family Medicine 02/04/18 01/14/21 [address] [place] [address] documented as of this encounter
--- OUTSIDE RECORDS SUMMARY | 2022-03-06 07:06 | XMS_ITS | Encounter Summary ---
:1995 Author Organization [facility] Address [address] [place] [address] Care Team Providers Name Role Phone Elsewhere, Pcp Primary Care Provider Unavailable Reason for Visit Reason Comments Med Refill Encounter Details Date Type Department Care Team Description 01/11/2021 Refill Department of Endocrinology in [place] Parikh M.D. Med Refill [address] [phone] Social History Tobacco Use Types Packs/Day Years [...] or relatives? How often do you attend worship or caodaism More than 4 time s per year 06/21/2021 services? Do you belong to any clubs or organizations Yes 06/21/2021 such as worship groups, unions, fraternal or athletic groups, or [...] to pay for the very basics like [email or web address] hard 06/21/2021 food, housing, medical care, [...] at Date Recorded Female 06/21/2021 12:52 PM SHAREPOINT APPLICATION ARCHITECT documented as of this encounter Miscellaneous Notes Telephone Encounter - Reba Goodwin - 01/17/2021 12:05 PM CDT 01/17 LM again to CB to CTS Needs to est care w/ new provider for med refill. Reba Goodwin Telephone Encounter - Reba Goodwin - 01/15/2021 12:10 PM CDT LM and CB to CTS need to establish care / refill Reba Goodwin Telephone Encounter - Audrey Burleson M.D. - 01/14/2021 3:36 PM CDT Needs to establish with new PCP Telephone Encounter - Audrey Burleson M.D. - 01/14/2021 3:32 PM CDT I saw her once in 2010 so am not her PCP. Please reach out to her to get her scheduled with Dr. Patterson or Quyen Ashraf PA-C, or someone at a different site, to establish care. She can miss a few daysof metformin and it will not affect her health. Please send message to scheduling to put PCP elsewhere or when she calls in for an appointment she will be scheduled with me. Telephone Encounter - Jannet Waite L.P.N. - 01/11/2021 4:32 PM CDT PCP has never seen this patient, Dr. Burleson. I'm not sure where to route this message. Telephone Encounter - [place] Norris R.N. - 01/11/2021 1:52 PM CDT Former patient of Dr. Parikh who is no longer with [facility]. She was last seen 08/17/20. Is this something her PCP would be willing to fill for her? documented in this encounter Plan of Treatment Upcoming Encounters Date Type Specialty Care Team Description 04/22/2022 Appointment Laboratory Medicine Meryl Julio M.D. [facility] [place], [place] [address] (Hector martin) 04/29/2022 Office Visit Endocrinology Meryl Julio M .D. [address] [place], [place] [address] (Hector martin) documented as of this encounter Visit Diagnoses Diagnosis Polycystic Ovary Syndrome documented in this encounter Care Teams Animal Cruelty Investigation Supervisor Relationship Specialty Start Date End Date Elsewhere, Pcp PCP - General Family Medicine 01/15/21 05/05/21 documented as of this encounter
--- OUTSIDE RECORDS SUMMARY | 2022-03-06 07:06 | XMS_ITS | Encounter Summary ---
:1995 Author Organization [facility] Address [address] [place] [address] Care Team Providers Name Role Phone Audrey Burleson M.D. Primary Care Provider [phone] Reason for Visit Reason Comments Follow-up Patient is here for a follow up after 1 year after sinus surgery on the right side. Patient states t hat she is doing irrigation. Outpatient (Routine) - Closed Specialty Diagnoses / Procedures Referred By Contact Refer red To Contact Diagnoses Sinusitis Chronic Maxillary Deviation [facility]al [facility] Procedures ENT Miscellaneous procedures Willy Paula [address] [place] [address] Referral ID Status Reason Start Date Expiration Date Visits Requ ested Visits Authorized [id number] Closed 12/20/2019 12/19/2020 1 1 Encounter Details Date Type Department Care Team Description 08/17/2020 Procedure visit Department of Nadeen Jacobs Sinusitis C hronic Maxillary (Primary Dx); [facility] Nasal Septal [place], [place] Willy Paula [id number] [place] [address] [place] [phone] Social History Tobacco Use Types Packs/Day [...] How often do you attend jew or roman catholic More than 4 time [...] at Date Recorded Female 06/21/2021 12:52 PM DIRECTOR OF MEDICAL SERVICES documented as of this encounter Progress Notes Nisa Kahn M.D. - 08/17/2020 3:30 PM CDTAssociated Order(s): ENT Miscellaneous procedures Post-Procedure Diagnose(s): Sinusitis Chronic Maxillary; Deviation Nasal Septal ENT POSTOPERATIVE/PROCEDURE VISIT SUBJECTIVE CHIEF COMPLAINT/REASON FOR VISIT Status post right-sided??FESS??and septoplasty. HISTORY OF PRESENT ILLNESS Felecia Cardenas is a 24 y.o. female who presents for follow up after septoplasty, bilateral inferior turbinate reduction and outfracture, and right maxillary antrostomy on 10/08/2018.??Recall that patient had right sided silent sinus syndrome for which she underwent the sinus part of the procedure. Patient reports that in the last several months she has had increased right-sided sinus pressure and fullness. She denies any other concerning sinus symptoms or significant vision issues. She denies also any changes in the position of her right globe. She is performing sinus irrigations. Past medical history/surgical history/family history/social history, medications and allergies reviewed and are unchanged per initial visit note. REVIEW OF SYSTEMS Please see HPI; otherwise rest of ROS performed and were negative. OBJECTIVE VITAL SIGNS There were no vitals taken for this visit. PHYSICAL EXAMINATION General: Alert and oriented, No acute distress. ? Head and Face: Normocephalic, atraumatic. Face symmetrical, no weakness. Skin: No scars, lesions on the scalp face or neck. ?? Eyes: Conjunctivae are clear without injection or icterus. EOMI.??No nystagmus. Ears: External ears normal.?Bilateral ear canals widely patent and bilateral tympanic membranesintact with no evidence of middle ear effusion or masses. Nose: External nose normal, see procedure below for further details. Oral cavity/oropharynx: No trismus, adequate dentition. No lesions or masses of the lips, gingiva, buccal mucosa, hard and soft palate, uvula, floor of mouth, oral tongue, tongue base, or tonsillar fossae. Psychiatric: Alert and oriented x3, affect normal??and mood. Neuro: CN II-XII grossly intact. ?? Respiratory: Unlabored breathing, no stertor or stridor.??Good voice quality. PROCEDURE: ENT Miscellaneous procedures Date/Time: 08/17/2020 3:30 PM Performed by: Nisa Kahn M.D. Authorized by: Nisa Kahn M.D. CONSENT Consent obtained: written UNIVERSAL PROTOCOL All relevant documentation and testing were reviewed and available. All required blood products, implants, devices and or special equipment were made available as applicable. Pre-procedure verificationwas conducted and the correct site was marked if required. A fire risk assessment was done as applicable. The procedural time-out was conducted prior to performing the procedure and confirmed in a procedural pause. PRE-PROCEDURE DETAILS Procedure purpose: diagnostic Indications: Previous sinus surgery, sinus concerns. Appropriate hand hygiene, gown, cap, mask, protective eyewear, sterile gloves, skin preparation, sterile drape, and strict aseptic technique were utilized as applicable for the procedure. SEDATION / ANESTHESIA Anesthesia method: topical application Topical application type: lidocaine POST-PROCEDURE DETAILS Procedure completed successfully. yes Complications: no apparent complications Nasal Endoscopy: Verbal consent obtained and universal protocol followed. ??In order to evaluate structures that could not adequately be assessed by anterior rhinoscopy, rigid nasal endoscopy was performed as a separate identifiable procedure. The nasal passages and the nasopharynx were anesthetized with a topical application of Afrin and 4% lidocaine in a 50:50 mixture. After an appropriate interval, 0 and 30 degree rigid endoscopes were introduced into the right side of the nose with an examination of the inferior, middle, and superior meatus. The septum was examined. The choana was examined. Thescope was advance to the nasopharynx with examination of the right Eustachian tube orifice, the right posterior wall of the nasopharynx, and the nasal aspect of the soft palate. The scope was then withdrawn. The 0 degree rigid endoscope was introduced into the left side of the nose with an examinationof the inferior, middle, and superior meatus. The septum was examined. The choana was examined. The scope was advance to the nasopharynx with examination of the left Eustachian tube orifice, the left posterior wall of the nasopharynx, and the nasal aspect of the soft palate. The scope was then withdrawn. There were no complications and the patient tolerated the procedure well. ?? Specific findings:?? Mild septal spur to the right noted. Septum is intact with no evidence of septal hematoma or perforation. Bilateral nasal cavities without any evidence of purulence. ??Left middle meatus clear without any evidence of polyposis. Right middle meatus without any evidence of polyposis. Right maxillary antrostomy with scar tissue however that does appear to be an opening and this was gently dilated with the use of a curved suction. DIAGNOSTICS IMAGING CT sinus scan from 01/07/2019 was independently reviewed and patient noted to have mild mucosal thickening involving the right maxillary sinus with postoperative changes however the rest of her paranasal sinuses were noted to be unremarkable. ASSESSMENT / PLAN #1 Sinusitis Chronic Maxillary #2 Deviation Nasal Septal Ms.??Derner??a 24 y.o. female that presented to me with right-sided chronic maxillary sinusitis thatwas consistent with silent sinus syndrome as well as deviated septum. ??Patient underwent right-sided maxillary antrostomy, septoplasty, and bilateral inferior turbinate reduction and outfracture on . She does not have a history of asthma, nasal polyposis, or sensitivity to aspirin or ibuprofen. ??She has been seen and evaluated by Dr. Stanton in Allergy and noted to have multiple environmental allergies for which immunotherapy was recommended however patient chose not to pursue this at that time. Patient denies any significant concerns however does note intermittent right sided pressure and fullness. We have discussed several options including continued clinical observation and treatment with sinus irrigations verses surgical intervention. She does appear to have scar tissue that has formed at maxillary antrostomy site on the right hence we discussed surgery to further open this up. At this time given that her symptoms are intermittent and tolerable she would like to continue clinical observation which is reasonable. I will have her continue her daily sinus irrigations. I have also recommended daily use of Flonase. Patient can follow up with me on an as-needed basis. She understands that I would be happy to see her back if any ongoing issues. She also understands that she can always revisit with Dr. Stanton. Patient verbalized understanding of our plan. Patient's questions were solicited and answered. They understand to call my clinic if they have questions, concerns, or worsening or progression of symptoms. documented in this encounter Plan of Treatment Upcoming Encounters Date Type Specialty Care Team Description 04/22/2022 Appointment Laboratory Medicine Meryl Julio M.D. [facility] [place], [place] [address] (Hector martin) 04/29/2022 Office Visit Endocrinology Meryl Julio M .D. [address] [place], [place] [address] (Hector martin) documented as of this encounter Procedures Procedure Name Priority Date/Time Associated Comments Diagnosis ENT MISCELLANEOUS Routine 08/17/2020 3:30 PM Sinusitis Chronic Results for this PROCEDURE CDT Maxillary procedure are in Deviation Nasal the results Septal section. documented in this encounter Results ENT Miscellaneous procedures (08/17/2020 3:30 PM CDT) Specimen (Source) Anatomical Location Collection Method / Collectio n Time Received Time / Laterality Volume Narrative Nisa Kahn M.D. - 3:30 PM CDT Nisa Kahn M.D. ? 08/17/2020 ??4:43 PM ENT Miscellaneous procedures Date/Time: 08/17/2020 3:30 PM Performed by: Sharon Kahn M.D. Authorized by: Zeke Kahn M.D. CONSENT Consent obtained: written UNIVERSAL PROTOCOL All relevant documentation and testing w ere reviewed and available. All required blood products, implants, devic es and or special equipment were made available as applicable. Pre-proced ure verification was conducted and the correct site was marked if required. A fire risk assessment was done as applicable. The procedural time-out w as conducted prior to performing the procedure and confirmed in a procedu ral pause. PRE-PROCEDURE DETAILS Procedure purpose: diagnostic Indications: Previous sinus surgery, sin us concerns. Appropriate hand hygiene, gown, cap, mas k, protective eyewear, sterile gloves, skin preparation, sterile drape, and strict aseptic technique were utilized as applicable for the procedure . SEDATION / ANESTHESIA Anesthesia method: topical application Topical application type: lidocaine POST-PROCEDURE DETAILS ?? Procedure completed successfully. yes ?? Complications: no apparent complications Nisa Dee M.D. ENT ORDERABLES documented in this encounter Visit Diagnoses Diagnosis Sinusitis Chronic Maxillary - Primary Deviation Nasal Septal documented in this encounter Care Teams Yoga Coordinator Relationship Specialty Start Date End Date Audrey Burleson M.D. PCP - General Family Medicine 02/04/18 01/14/21 [address] [place] [id number] documented as of this encounter
--- OUTSIDE RECORDS SUMMARY | 2022-03-06 07:06 | XMS_ITS | Encounter Summary ---
:1995 Author Organization [facility] Address [address] [place] [address] Care Team Providers Name Role Phone Audrey Burleson M.D. Primary Care Provider [phone] Reason for Visit Reason Comments Med Refill Encounter Details Date Type Department Care Team Description 07/16/2020 Refill Department of Endocrinology in [place] Parikh M.D. Med Refill [address] [phone] Social History Tobacco Use Types Packs/Day [...] How often do you attend sabianist or voodoo More than 4 time s [...] to pay for the very basics like [employer] hat hard 06/21/2021 food, housing, medical care, [...] at Date Recorded Female 06/21/2021 12:52 PM POLISHER NUMERAL documented as of this encounter Plan of Treatment Upcoming Encounters Date Type Specialty Care Team Description 04/22/2022 Appointment Laboratory Medicine Meryl Julio M.D. [address] [place], [place] [address] (Wo rk) 04/29/2022 Office Visit Endocrinology Meryl Julio M .D. [address] [place], [place] [address] (Wo rk) documented as of this encounter Visit Diagnoses Diagnosis Polycystic Ovary Syndrome documented in this encounter Additional Health Concerns Infection Onset Date Last Indicated Resolved Time COVID19 Pending 08/14/2020 08/14/2020 08/15/2020 12:53 AM CDT documented as of this encounter Care Teams Granite Worker Relationship Specialty Start Date End Date Audrey Burleson M.D. PCP - General Family Medicine 02/04/18 01/14/21 [address] [facility] [place] [address] documented as of this encounter
--- OUTSIDE RECORDS SUMMARY | 2022-03-06 07:06 | XMS_ITS | Encounter Summary ---
:1995 Author Organization [facility] Address [address] [place] [address] Care Team Providers Name Role Phone Audrey Burleson M.D. Primary Care Provider [phone] Encounter Details Date Type Department Care Team Description 10/10/2020 Orders Only [facility] PCP [facility]NT Audrey Burleson M.D. [address] [place], [place] [phone] (Wo rk) Social History [...] or relatives? How often do you attend moravian or orthodox More than 4 time s per year 06/21/2021 services? Do you belong to any clubs or organizations Yes 06/21/2021 such as moravian groups, unions, fraternal or athletic groups, or school groups? How often do you attend meetings of the More than 4 times r year 06/21/2021 clubs or organizations you [...] to pay for the very basics like [employer] hat hard 06/21/2021 food, housing, medical care, [...] at Date Recorded Female 06/21/2021 12:52 PM SAW SHARPENER documented as of this encounter Plan of Treatment Upcoming Encounters Date Type Specialty Care Team Description 04/22/2022 Appointment Laboratory Medicine Meryl Julio M.D. [address] [place], [place] [address] (Wo rk) 04/29/2022 Office Visit Endocrinology Meryl Julio M .D. [address] [place], [place] [address] (Wo rk) documented as of this encounter Visit Diagnoses Not on filedocumented in this encounter Care Teams Classifier Operator Relationship Specialty Start Date End Date Audrey Burleson M.D. PCP - General Family Medicine 02/04/18 01/14/21 [address] [place] [phone] documented as of this encounter
--- OUTSIDE RECORDS SUMMARY | 2022-03-06 07:06 | XMS_ITS | Encounter Summary ---
:1995 Author Organization [facility] Address [address] [place] [address] Care Team Providers Name Role Phone Elsewhere, Pcp Primary Care Provider Unavailable Reason for Visit Reason Comments Med Refill Encounter Details Date Type Department Care Team Description 02/13/2021 Refill Department of Endocrinology in [place] Parikh M.D. Med Refill [address] [phone] Social History Tobacco Use Types Packs/Day Years [...] How often do you attend sabianist or christian More than 4 time s [...] to pay for the very basics like [employer] hat hard 06/21/2021 food, housing, medical care, [...] at Date Recorded Female 06/21/2021 12:52 PM FRENCH PASTRY COOK documented as of this encounter Miscellaneous Notes Telephone Encounter - Rosa Pandey R.N. - 02/13/2021 8:40 AM CDT is no longer with [facility], your listed as patients PCP. Are you able to re-fill this medication for the patient. Thank you documented in this encounter Plan of Treatment Upcoming Encounters Date Type Specialty Care Team Description 04/22/2022 Appointment Laboratory Medicine Meryl Julio M.D. [address] [place] [address] (Hector martin) 04/29/2022 Office Visit Endocrinology Meryl Julio M .D. [address] [place], [place] [address] (Hector martin) documented as of this encounter Visit Diagnoses Diagnosis Polycystic Ovary Syndrome documented in this encounter Care Teams Candy Cutter Hand Relationship Specialty Start Date End Date Elsewhere, Pcp PCP - General Family Medicine 01/15/21 05/05/21 documented as of this encounter
--- OUTSIDE RECORDS SUMMARY | 2022-03-06 07:06 | XMS_ITS | Encounter Summary ---
:1995 Author Organization [facility] Address [address] [place] [address] Care Team Providers Name Role Phone Elsewhere, Pcp Primary Care Provider Unavailable Encounter Details Date Type Department Care Team Description 01/23/2021 Hospital Encounter Department of Jerry Patterson Thyroid itis Laboratory MedicineWilly [facility], in [address] [place], [place] [address] [facility] [address] [place], [place] [phone] [address] (Work) [phone] Social History Tobacco Use Types Packs/Day Years [...] How often do you attend rastafari or yarsani More than 4 time s [...] at Date Recorded Female 06/21/2021 12:52 PM 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 levothyroxine Take 1 tablet (112 30 tablet 11 01/23/2021 (SYNTHROID, LEVOTHROID) mcg total) by mouth 112 mcg tablet daily. metFORMIN XR Take 2 tablets 360 tablet 0 11/14/2020 02/14/20 21 (GLUCOPHAGE-XR) 500 mg (1,000 mg total) by 24 hr tabletIndications: mouth 2 (two) times Polycystic Ovary a day. Syndrome propranoloL (INDERAL LA) Take 1 capsule (80 60 capsule 11 02/22/2021 80 mg 24 hr mg total) by mouth 2 capsuleIndications: (two) times a day. Migraine Headache spironolactone Take 1 tablet (50 mg 180 tablet 0 01/23/2021 09/05/2021 (ALDACTONE) 50 mg total) by mouth 2 tabletIndications: (two) times a day. Polycystic Ovary Syndrome documented as of this encounter Plan of Treatment Upcoming Encounters Date Type Specialty Care Team Description 04/22/2022 Appointment Laboratory Medicine Meryl Julio M.D. [address] [place], [place] [address] (Wo rk) 04/29/2022 Office Visit Endocrinology Meryl Julio M .D. [address] [place], [place] [address] (Hector rk) documented as of this encounter Procedures Procedure Name Priority Date/Time Associated Diagnosis Comme nts THYROID-STIMULATING Routine 01/23/2021 4:58 AM Thyroiditis Re sults for this HORMONE-SENSITIVE CDT Deric's procedure are in (S-TSH) the results section. BASIC METABOLIC Routine 01/23/2021 4:58 AM Thyroiditis Result s for this PANEL, S/P CDT Deric's procedure are i n the results section. documented in this encounter Results Basic Metabolic Panel (01/23/2021 [...] CDT eGFR-Black/Afric >90 >=60 01/23/2021 MKTO an Ethiopian mL/min/BSA 5:35 AM CDT Comment: ----ADDITIONAL INFORMATION---- [...] Performing Organization Address City/[facility] Phon e Number [facility]- [address] [place] [id number] [place] [address] S-TSH (Thyroid-Stimulating Hormone - Sensitive) (01/23/2021 [...] Performing Organization Address City/[facility] Phon e Number [facility]- [address] [place] [id number] [place] [address] [address] documented in this encounter Visit Diagnoses Diagnosis Thyroiditis Deric's documented in this encounter Care Teams Hotel Attendant Relationship Specialty Start Date End Date Elsewhere, Pcp PCP - General Family Medicine 01/15/21 05/05/21 documented as of this encounter
--- OUTSIDE RECORDS SUMMARY | 2022-03-06 07:06 | XMS_ITS | Encounter Summary ---
:1995 Author Organization [facility] Address [address] [place] [address] Care Team Providers Name Role Phone Elsewhere, Pcp Primary Care Provider Unavailable Reason for Referral Outpatient (Routine) - Closed Specialty Diagnoses / Procedures Referred By Contact Refer red To Contact Sleep Medicine Diagnoses Obstructive Sleep Apnea Adult Jerry Patterson M.D. [address] [phone] Referral ID Status Reason Start Date Expiration Date Visits V isits Requested Authorized [id number] Closed Specialty 01/23/2021 01/23/2022 1 1 Services Required utpatient (Routine) - Closed Specialty Diagnoses / Procedures Referred By Contact Refer red To Contact Endocrinology Diagnoses Thyroiditis Deric's Jerry Patterson M.D. [address] [phone] Referral ID Status Reason Start Date Expiration Date Visits Requ ested Visits Authorized [id number] Closed 01/23/2021 01/23/2022 1 1 ppointment Request (Routine) - Closed Specialty Diagnoses / Procedures Referred By Contact Refer naomy To Contact Diagnoses Thyroiditis Deric's Jerry Patterson M.D. Procedures S-TSH (Thyroid-Stimulating Hormone - Sensitive) [address] [place] [address] Referral ID Status Reason Start Date Expiration Date Visits Requ ested Visits Authorized [id number] Closed 02/21/2021 02/21/2022 1 1 Reason for Visit Reason Comments Follow-up Referral to Endocrinology Appointment Request (Routine) - Closed Specialty Diagnoses / Procedures Referred By Contact Refer red To Contact Family Medicine Referral ID Status Reason Start Date Expiration Date Visits Requ ested Visits Authorized [id number] Closed 01/22/2021 01/22/2022 1 1 Encounter Details Date Type Department Care Team Description 01/23/2021 Comprehensive Visit Department of Jerry Osuna, Thyroiditis Deric's (Primary Dx); Medicine in [place] Polycystic Ovary Syndrome; [place], [place] [address] Obstructive Sleep Apnea Adult; [address] [place], [place] Migraine Headache; [place] [address] Lesion Skin Back [id number] Social History Tobacco Use Types Packs/Day Years [...] How often do you attend restorationism or mu-ism More than 4 time s per year [...] place to sleep or slept in a assisted (including now)? Sex Assigned at Date Recorded Female 06/21/2021 12:52 PM TODDLER GUIDE documented as of this encounter Last Filed Vital Signs Vital Sign Reading Time Taken Comments Blood Pressure 115/78 01/23/2021 12:21 PM CDT Pulse 94 01/23/2021 12:21 PM CDT Temperature 36.5 ??C (97.7 ??F) 01/23/2021 12:21 PM CDT Respiratory Rate 20 01/23/2021 12:21 PM CDT Oxygen Saturation - - Inhaled Oxygen Concentration - - Weight 92.1 kg (203 lb) 01/23/2021 12:21 PM CDT Height - - Body Mass Index 32.62 02/15/2020 3:36 PM CDT documented in this encounter Progress Notes Jerry Patterson M.D. - 01/23/2021 12:30 PM CDT SUBJECTIVE CHIEF COMPLAINT/REASON FOR VISIT Requesting referral to endocrinology. HISTORY OF PRESENT ILLNESS Felecia Cardenas is a 25 y.o. female who presents to the clinic today requesting referral to endocrinology service. She has history of Deric's thyroiditis. She saw Dr. Parikh for managing her hypothyroidism and PCOS previously. Currently she is on levothyroxine 100 mcg once daily. She also takes metformin 1000 mg twice daily, spironolactone and OCP. Given Dr. Parikh left the practice, she presented to the clinic today requesting for referral to endocrinology service for establishing care. She also brought up to my attention that she has concern regarding a skin lesion on her left upper back that is irritating her due to being rubbed on her bra. She denies redness, open sore or bleeding.There is no history of skin cancer. Lastly, she has history of obstructive sleep apnea. She is on CPAP. According to her, she was diagnosed and treated by Sleep Medicine when she was at [place]. She states that she needs a referral to establish care with Sleep Medicine in [place]. CURRENT MEDICATIONS Current Outpatient Medications Medication Sig ??? eletriptan (RELPAX) 40 mg tablet Treat with eletriptan (Relpax) 40 mg at onset of severe headache. May repeat one time after 2 hours if needed. Limit the use to no more than 9 days a month (twice aweek). ??? levothyroxine (SYNTHROID, LEVOTHROID) 100 mcg tablet Take 1 tablet (100 mcg total) by mouth every morning before breakfast. ??? metFORMIN XR (GLUCOPHAGE-XR) 500 mg 24 hr tablet Take 2 tablets (1,000 mg total) by mouth 2 (two) times a day. ??? propranoloL (INDERAL LA) 80 mg 24 hr capsule Take 1 capsule (80 mg total) by mouth 2 (two) timesa day. ??? spironolactone (ALDACTONE) 50 mg tablet Take 1 tablet (50 mg total) by mouth 2 (two) times a day. ??? TENS unit and electrodes (Cefaly) combo pack Acute treatment is for 60 minutes. Preventive treatment is 20 min per day. ALLERGIES / CONTRAINDICATIONS Allergies Allergen Reactions ??? Clindamycin Anaphylaxis ??? Gentamicin Anaphylaxis ??? Ciprofloxacin Anaphylaxis REVIEW OF SYSTEMS Reviewed as mentioned in HPI; the rest of review of systems are negative. MEDICAL HISTORY Deric's thyroiditis. Polycystic ovarian syndrome. Chronic migraine headache. Allergic rhinitis. Chronic maxillary sinusitis. Obstructive sleep apnea. Obesity with BMI of 32. SURGICAL HISTORY Septoplasty. Bilateral inferior turbinate reduction and outfracture. Right maxillary antrostomy. Left ACL and meniscus repair. Right partial meniscus repair. Cholecystectomy. Stent placement to biliary tree. Endometriosis ablation. FAMILY HISTORY Mom has history of depression, anxiety, migraine headache, irritable bowel syndrome. Dad is healthy. SOCIAL HISTORY She lives with her fiancee in [place]. 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 OBJECTIVE VITAL SIGNS BP 115/78 Pulse 94 Temp 36.5 ??C Resp 20 Wt 92.1 kg BMI 32.62 kg/m?? PHYSICAL EXAMINATION General: Alert, oriented x3. No acute distress. Psychiatry: Mood is not depressed or anxious. Affect is pleasant. Mood congruent. Denies suicidal, homicidal ideation. Thought content is normal. Insight and judgment are good. Speech is fluent. HEENT: Normocephalic, atraumatic. Neck: Supple. No cervical lymphadenopathy. No thyromegaly. Cardiovascular: S1, S2. Regular rate and rhythm. No murmur or gallops. No JV distention. No bruit. Lungs: Clear breath sounds. No crackles or expiratory wheezes. Abdomen: Soft, nontender. Bowel sounds in all 4 quadrants. Musculoskeletal: No edema or cyanosis noted on bilateral lower extremities. Neuro Exam: Cranial nerves II-XII grossly intact. No focal neurological deficit. Coordination is intact. Gait is normal. Skin Examination: No rash. There is noted flash colored round skin lesion on the left upper back. There is no erythema or open sore. There is no hyperpigmentation. DIAGNOSTICS Lab Results Component Value Date TSH 2.7 01/23/2021 ASSESSMENT / PLAN 1. Deric's thyroiditis. She reports that Dr. Parikh recommended her TSH level at the range of 2.0 -2.2. She has been complaining of fatigue as well therefore, we came to agreement to increase the levothyroxine to 112 mcg oncedaily. We will repeat the TSH level in 6 weeks. She is given refill today. She is given referral to endocrinology service at [facility] for establishing care given Dr. Parikh had left the practice. 2. Polycystic ovarian disease. She will continue taking metformin extended release 1000 mg twice daily, spironolactone 50 mg twice daily. She is in the process of getting later this year. We reviewed her medication list, and she is most like have to stop taking spironolactone 3. Chronic migraine headache. She has taken propanolol 80 mg twice daily for prophylaxis and eletriptan 40 mg as needed for abortive treatment. Her headache has been under control. 4. Left upper back skin lesion. She is informed that this is a benign lesion. If it is bothering her, she is recommended to have it excised in the near future. She is to avoid manipulating it to prevent infection. 5. Obstructive sleep apnea. She is provided referral to Sleep Medicine in [place] to establish care. documented in this encounter Plan of Treatment Upcoming Encounters Date Type Specialty Care Team Description 04/22/2022 Appointment Laboratory Medicine Meryl Julio M.D. [address] [place] [address] (Wo rk) 04/29/2022 Office Visit Endocrinology Meryl Julio M .D. [address] [place] [address] (Wo veronica) Scheduled Referrals Name Type Priority Associated Order Schedule Diagnoses Endocrinology - Outpatient Referral Routine Thyroiditis Expec cathy: Thyroid disorders Deric's 01/23/2021 consult (clinic) (Approximat e), Expires: 01/24/2024 Sleep Medicine - Outpatient Referral Routine Obstructive Sleep Expected: General consult Apnea Adult 01/23/2021 (clinic) (Approximate), Expires: 01/24/2024 documented as of this encounter Results S-TSH (Thyroid-Stimulating Hormone - Sensitive) (07/11/2021 3:11 PM TODDLER GUIDE) P athologist Signature TSH, Sensitive 2.1 0.3 - 4.2 07/11/2021 [place] mIU/L 4:04 PM TODDLER GUIDE Specimen Anatomical Collection Method Collection Time Receive d Time (Source) Location / / Volume Laterality Blood (Blood, 07/11/2021 3:11 PM 07/11/19 3:28 Venous) TODDLER GUIDE PM TODDLER GUIDE Jerry Patterson M.D. LAB BLOOD ADD-ON Performing Organization Address City/State/ZIP Code Phon e Number [facility]- [address] [place] [id number] [place] [address] System in [address] documented in this encounter Visit Diagnoses Diagnosis Thyroiditis Deric's - Primary Polycystic Ovary Syndrome Obstructive Sleep Apnea Adult Migraine Headache Lesion Skin Back documented in this encounter Care Teams Agent Licensing Clerk Relationship Specialty Start Date End Date Elsewhere, Pcp PCP - General Family Medicine 01/15/21 05/05/21 documented as of this encounter
--- OUTSIDE RECORDS SUMMARY | 2022-03-06 07:06 | XMS_ITS | Encounter Summary ---
:1995 Author Organization [facility] Address [address] [place] [address] Care Team Providers Name Role Phone Audrey Burleson M.D. Primary Care Provider [phone] Reason for Referral Outpatient (Routine) - Modified Order Specialty Diagnoses / Procedures Referred By Contact Refer red To Contact Neurology Diagnoses Migraine Headache Zora Grant [facility] P.Nacho, M.S. [address] [place] [address] Referral ID Status Reason Start Date Expiration Date Visits V isits Requested Authorized [id number] Modified 02/15/2020 02/14/2021 1 1 Order Reason for Visit Reason Comments Consult Migraine Outpatient (Routine) - Closed Specialty Diagnoses / Procedures Referred By Contact Refer red To Contact Neurology Diagnoses Migraine Headache Scottie Savage M.D. [facility] [address] [place] [phone] Referral ID Status Reason Start Date Expiration Date Visits Requ ested Visits Authorized [id number] Closed 01/24/2020 01/23/2021 1 1 Encounter Details Date Type Department Care Team Description 02/15/2020 Office Visit Department of Juanita, Zora Migrai ne Headache Neurology in [place], Val Huddleston, M.S. 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 - 02/15/2020 3:45 PM CDT 1. Headache prevention: -Continue propranolol 80 mg twice daily. -Avoid triggers: irregular sleep, dehydration, skipped meals, etc. 2. As needed: -Stop sumatriptan and rizatriptan. -Relpax 40 mg as needed for function-limiting headaches. Limit 2 days a week or 9 days a month. Let me know if this doesn't work. -Tylenol or ibuprofen as needed for moderate headaches. Limit 2-3 days a week or 14 days a month. 3. Follow-up 6 months, sooner if needed. Can also push out later. 4. Let us know if you decide to become . documented in this encounter Progress Notes Zora Grant P.A.-C., M.S. - 02/15/2020 3:45 PM CDT SUBJECTIVE Primary Care Provider: Audrey Burleson M.D. CHIEF COMPLAINT / REASON FOR VISIT Headache follow-up HISTORY OF PRESENT ILLNESS Felecia Cardenas is a 24 y.o. right-handed female with obstructive sleep apnea (on CPAP), polycystic ovary syndrome, Deric's thyroiditis, and history of nephrolithiasis who presents for follow-up of her headaches. She last saw Dr. Savage on 12/17/2018. Of note, she had intermittent pulsatile tinnitus that he felt was benign. He ordered an MRI since her headaches had worsened. This was ultimately normal. She does desire to become in about 1 1/2 years. She was having 6 headache days a week at her last appointment per chart review. She would get severeheadaches 2-3 times a month. She is currently having about 4-5 headache days a month with 1-2 severeheadaches a month. She is tolerating her propranolol 80 mg without problem. She has run out of her sumatriptan and rizatriptan prescriptions and inquires about something to useas needed for her headaches. She does use Tylenol and ibuprofen once or twice every 2 weeks. She notes that her headaches increased around her menstrual cycle. Headache summary: -Aura: none -Onset: 8 years old, worsened as gotten older -Location: bioccipital and bifrontal -Duration: several hours -Character: throbbing -Triggers: eating smoked or dried meats -Severity: 5/10, severe can be 10/10 -Associated symptoms: nausea, vomiting, phonophobia, photophobia Using the stairs will make her headaches worse. Current and past abortives: Current: -rizatriptan 10 mg: can't remember details, made sleepy -Imitrex 100 mg: always had to redose -Tylenol: help solutions developer headaches -ibuprofen: help solutions developer headaches In the past: -naproxen: tore apart stomach after knee surgeries Current and past preventatives: Current: -propranolol 80 mg BID: effective In the past: -none Prior imaging: -MR brain w/ and w/o contrast 11/2018 normal PAST MEDICAL HISTORY No history of asthma, [...] in April. She is working at a [employer] currently. She lovedOB in school. REVIEW OF SYSTEMS As per HPI. ALLERGIES Allergies Allergen Reactions ??? Clindamycin Anaphylaxis ??? Gentamicin Anaphylaxis ??? Ciprofloxacin Anaphylaxis MEDICATIONS Current Outpatient Medications on File Prior to Visit Medication Sig Dispense Refill ??? doxycycline monohydrate (MONODOX) 100 mg capsule ??? levothyroxine (SYNTHROID, LEVOTHROID) 88 mcg tablet TAKE 1 TABLET BY MOUTH EVERY MORNING BEFORE BREAKFAST 30 tablet 5 ??? metFORMIN XR (GLUCOPHAGE-XR) 500 mg 24 hr tablet TAKE 2 TABLETS BY MOUTH TWICE A DAY 120 tablet 7 ??? propranoloL (INDERAL LA) 80 mg 24 hr capsule Take 1 capsule (80 mg total) by mouth 2 (two) timesa day. 60 capsule 0 ??? spironolactone (ALDACTONE) 50 mg tablet TAKE 1 TABLET BY MOUTH TWICE A DAY 60 tablet 5 ??? budesonide (RINOCORT AQUA) 32 mcg/actuation nasal spray Administer 2 sprays into each nostril daily. (Patient not taking: Reported on 06/27/2019 ) 8.6 g 11 ??? norethindrone (MICRONOR) 0.35 mg tablet Take 1 tablet (0.35 mg total) by mouth daily. (Patient not taking: Reported on 06/27/2019 ) 84 tablet 3 ??? predniSONE (DELTASONE) 10 mg tablet ??? [DISCONTINUED] rizatriptan (MAXALT) 10 mg tablet May repeat in 2 hours if unresolved. Do not exceed 30 mg in 24 hours. (Patient not taking: Reported on 02/15/2020 ) 15 tablet 1 ??? [DISCONTINUED] SUMAtriptan (IMITREX) 100 mg tablet Take 1 tab at onset of migraine, may repeat after 2 hours; do not exceed 200 mg daily. Limit to two days per week. (Patient not taking: Reported on 02/15/2020 ) 9 tablet 11 No current facility-administered medications on file prior to visit. OBJECTIVE PHYSICAL EXAM BP 104/58 Pulse 68 Ht 168 cm Wt 85 kg BMI 30.12 kg/m?? HEENT: Full cervical ROM without rigidity. Moderate tenderness along occipital ridge bilaterally. NEURO: MENTAL STATE Alert and oriented to person, time, and place. CN CN XII, IX, and lower half of VII deferred due to COVID-19 masking precautions. II- Visual meehan intact. III, IV, - No ptosis. Pupils equal, 5 mm, round, and reactive to light. Full range EOMs with normal saccades, pursuit, and convergence. No nystagmus. V- Facial sensation equal and intact V1-V3 bilaterally. VII- Normal and symmetric movements of facial expression of upper half of face. VII- Hearing intact to finger rub bilaterally. X- Normal voice quality. XI- Normal strength with head turning and shoulder shrug. OPHTHALMOSCOPE: Fundi show normal optic disc margins bilaterally. MOTOR Normal muscle bulk throughout. Normal tone. No adventitious movements. Deltoid: R0L0 Biceps: R0L0 Triceps: R0L0 Wrist Flex: R0L0 Wrist Ext: R0L0 Finger Abd: R0L0 Finger Ext: R0L0 Hip Flex: R0L0 Knee Flex: R0L0 Knee Ext: R0L0 SENSORY Crude touch intact in upper and lower extremities bilaterally. COORDINATION [id number]-[id number] intact bilaterally. Normal rapid alternating movements in bilateral upper and lower extremities. GAIT Normal speed and moses. Normal station. Normal arm swing. Able to walk on heels and toes. Able to tandem-walk. Turns in two steps. Romberg's sign and Pronator Drift not present. ASSESSMENT / PLAN #1 Chronic migraine without aura, improved on propranolol Plan: 1. Headache prevention: -Continue propranolol 80 mg twice daily. -Avoid triggers: irregular sleep, dehydration, skipped meals, etc. 2. As needed: -Stop sumatriptan and rizatriptan. -Relpax 40 mg as needed for function-limiting headaches. Limit 2 days a week or 9 days a month. She will let us know if this doesn't work. -Tylenol or ibuprofen as needed for moderate headaches. Limit 2-3 days a week or 14 days a month. 3. Follow-up 6 months, sooner if needed. 4. She will let us know if she decides to become . Discussion: Felecia Cardenas is a 24 y.o. right-handed female with obstructive sleep apnea (on CPAP), polycystic ovary syndrome, Deric's thyroiditis, and history of nephrolithiasis who presents for follow-up of her headaches. She last saw Dr. Savage on 12/17/2018. Her headaches are much improved with only 4-5 headache days a month was 1-2 being severe. We will continue on her propranolol. She does desire to become in inquires about propranolol safety inpregnancy. We discussed that it could cause some growth restriction and therefore would ideally be tapered prior to becoming . She will let us know when she decides to start trying for . If she does become and needs a preventative, we could consider riboflavin, acupuncture, occipital nerve blocks with just lidocaine, and the Cefaly device. Magnesium a high doses has been shownto cause bone demineralization and therefore would likely be avoided. She has been having to re-dose her sumatriptan and feels fatigued after taking rizatriptan. Therefore, we will try Relpax as this is often covered by her type of insurance. If this is ineffective, we could trial almotriptan. Since she is doing well, she would like to follow-up in 6 months. She can push this out if she feelsshe is doing well. Rest as above. PATIENT EDUCATION Patient was ready to learn with no apparent learning barriers identified; learning preferences include listening. Explained diagnosis and treatment plan; patient expressed understanding of the content. I personally spent over half of a total 30 minutes [id number] with the patient in counseling and discussion and/or coordination of care as described above. documented in this encounter Plan of Treatment Upcoming Encounters Date Type Specialty Care Team Description 04/22/2022 Appointment Laboratory Medicine Meryl Julio M.D. [address] [place], [place] [address] (Wo rk) 04/29/2022 Office Visit Endocrinology Meryl Julio M .D. [facility] [place], [place] [address] (Wo veronica) Scheduled Referrals Name Type Priority Associated Diagnoses Order S [facility] Neurology office Outpatient Referral Routine Migraine Headache Expected: visit (clinic) 08/14/2020, Expires: 02/13/2023 documented as of this encounter Visit Diagnoses Diagnosis Migraine Headache documented in this encounter Care Teams Lehr Operator Relationship Specialty Start Date End Date Audrey Burleson M.D. PCP - General Family Medicine 02/04/18 01/14/21 [address] [place] [address] documented as of this encounter
--- OUTSIDE RECORDS SUMMARY | 2022-03-06 07:06 | XMS_ITS | Encounter Summary ---
:1995 Author Organization [facility] Address [address] [place] [address] Care Team Providers Name Role Phone Audrey Burleson M.D. Primary Care Provider [phone] Reason for Referral Outpatient (Routine) - Closed Specialty Diagnoses / Procedures Referred By Contact Dorota moralez To Contact Endocrinology Jalil Parikh M.D. [address] [address] Referral ID Status Reason Start Date Expiration Date Visits Requ ested Visits Authorized [id number] Closed 08/17/2020 08/17/2021 1 1 Reason for Visit Reason Comments Deric's Thyroiditis Labs done on 08/14/20 Outpatient (Routine) - Closed Specialty Diagnoses / Procedures Referred By Contact Dorota moralez To Contact Endocrinology Jalil Parikh M.D. [address] [address] Referral ID Status Reason Start Date Expiration Date Visits Requ ested Visits Authorized [id number] Closed 01/31/2020 01/30/2021 1 1 Encounter Details Date Type Department Care Team Description 08/17/2020 Office Visit Department of Jalil Parikh, Thyroiditis Deric's (Primary Dx); Endocrinology in [place] 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 - 08/17/2020 2:30 PM CDT Patient Name: Felecia Cardenas [facility] [phone] Date of : 1995 CHIEF COMPLAINT PCOS, hypothyroidism HISTORY OF PRESENT ILLNESS Felecia Cardenas is a 24 y.o. female with history of sleep apnea, obesity is presenting for follow up regarding PCOS and hypothyroidism. She used to be on Micronor- discontinued in 05/2019, have spontaneous since then. She was on Sprintecbefore- was reporting migraine headaches with it. She follows with Neurology, currently on propranolol. She was having regular periods up until May then she had periods every 2 weeks for couple of months, her most recent period was normal however. She is on Spironolactone- having more acne with using mask, not concerned with excess hair at this point. She takes Metformin 1000 mg BID- tolerating well. She gained a kg since last visit, she thinks that she is more physically active and diet is stable. She is currently on levothyroxine 100 mcg daily, TSH is normal at 1.7, she has slight elevation on free T4 levels which has been persistent. She reportsfatigue which attributes to work. She gets diarrhea with Carb rich food, she had improvement of symptoms with gluten free diet, celiacscreening negative. She is planning for wedding and was wondering if she can taper off some of the medications that she is using for PCOS. ?? Current Outpatient Medications: ??? eletriptan (RELPAX) 40 mg tablet, Treat with eletriptan (Relpax) 40 mg at onset of severe headache. May repeat one time after 2 hours if needed. Limit the use to no more than 9 days a month (twice a week)., Disp: 12 tablet, Rfl: 3 ??? levothyroxine (SYNTHROID, LEVOTHROID) 100 mcg tablet, Take 1 tablet (100 mcg total) by mouth every morning before breakfast., Disp: 90 tablet, Rfl: 3 ??? metFORMIN XR (GLUCOPHAGE-XR) 500 mg 24 hr tablet, TAKE 2 TABLETS BY MOUTH TWICE A DAY, Disp: 120tablet, Rfl: 7 ??? propranoloL (INDERAL LA) 80 mg 24 hr capsule, Take 1 capsule (80 mg total) by mouth 2 (two) times a day., Disp: 60 capsule, Rfl: 11 ??? spironolactone (ALDACTONE) 50 mg tablet, TAKE 1 TABLET BY MOUTH TWICE A DAY, Disp: 60 tablet, Rfl: 5 ??? TENS unit and electrodes (Cefaly) combo pack, Acute treatment is for 60 minutes. Preventive treatment is 20 min per day., Disp: 1 each, Rfl: 0 Allergies Allergen Reactions ??? Clindamycin Anaphylaxis ??? Gentamicin Anaphylaxis ??? Ciprofloxacin Anaphylaxis Patient Active Problem List Diagnosis ??? Polycystic Ovary Syndrome ??? Thyroiditis Deric's ??? Obstructive Sleep Apnea Adult ??? Migraine Headache ??? Sinusitis Chronic Maxillary ??? Rhinitis Allergic Due To Outdoor Pollen ??? Rhinitis Allergic Dust Mite ??? Rhinitis Allergic Animal ??? Pulsatile Tinnitus Left Ear ??? Deviation Nasal Septal ??? Obesity Body Mass Index 30-39.9 Adult Past Surgical History: Procedure Laterality Date ??? APPENDECTOMY N/A Appendectomy ??? ARTHROSCOPY KNEE Right 04/2015 ??? CHOLECYSTECTOMY N/A Cholecystectomy ??? FUNCTIONAL ENDOSCOPY SINUS SURGERY WITH NAVIGATION Right 10/08/2018 Procedure: FUNCTIONAL ENDOSCOPY SINUS SURGERY WITH NAVIGATION Septoplasty and Bilateral turbinate reduction; Surgeon: Nisa Kahn M.D.; Location: [facility] OR ??? OTHER CONVERTED SHX (SEE COMMENT) N/A 03/21/2011 >1. ERCP. 2. Needle knife and completion biliary sphincterotomy. ??? OTHER CONVERTED SHX (SEE COMMENT) N/A 03/11/2010 >EGD with small bowel, gastric, and esophageal biopsies. ??? TOTAL KNEE ARTHROPLASTY Left 09/03/2011 partial total knee Family History Problem Relation Age of Onset ??? Endometriosis Mother ??? Ovarian cancer Maternal Grandmother ??? Hyperthyroidism Maternal Grandmother Social History Socioeconomic History ??? Marital status: Single Spouse name: Not on file ??? Number of children: Not on file ??? Years of education: Not on file ??? Highest education level: Not on file Occupational History ??? Not on file Social Needs ??? Financial resource strain: Not on file ??? Food insecurity Worry: Not on file Inability: Not on file ??? Transportation needs Medical: Not on file Non-medical: Not on file Tobacco Use ??? Smoking status: Never Smoker ??? Smokeless tobacco: Never Used Substance and Sexual Activity ??? Alcohol use: No ??? Drug use: No ??? Sexual activity: Defer Lifestyle ??? Physical activity Days per week: Not on file Minutes per session: Not on file ??? Stress: Not on file Relationships ??? Social connections Talks on phone: Not on file Gets together: Not on file Attends hinduism service: Not on file Active member of club or organization: Not on file Attends meetings of clubs or organizations: Not on file Relationship status: Not on file ??? Intimate partner violence Fear of current or ex partner: Not on file Emotionally abused: Not on file Physically abused: Not on file Forced sexual activity: Not on file Other Topics Concern ??? Not on file Social History Narrative ??? Not on file REVIEW OF SYSTEMS On complete review of systems, pertinent positive/negative as mentioned in HPI. PHYSICAL EXAM Blood pressure 135/85, pulse 81, weight 93.1 kg General: No acute distress. Eyes: Anicteric Sclera, no proptosis. ENT: Mucous membranes moist and pink. Neuro: Alert and oriented x 3, grossly intact. LABORATORY/DIAGNOSTICS Results for orders placed or performed during the hospital encounter of 08/14/20 SARS Coronavirus-2 RNA, V Asymptomatic Specimen: Nasopharynx; Varies Result Value Ref Range SARS-CoV-2 Specimen Source Swab, Nasopharynx SARS CoV-2 RNA, TMA Undetected Undetected S-TSH (Thyroid-Stimulating Hormone - Sensitive) Result Value Ref Range TSH, Sensitive, P 1.7 0.3 - 4.2 mIU/L T4 (Thyroxine), Free Result Value Ref Range T4 (Thyroxine), Free, P 1.9 (H) 0.9 - 1.7 ng/dL Basic Metabolic Panel Result Value Ref Range Potassium, P 4.0 3.6 - 5.2 mmol/L Sodium, P 138 135 - 145 mmol/L Chloride, P 102 98 - 107 mmol/L Bicarbonate, P 27 22 - 29 mmol/L Anion Gap, P 9 7 - 15 BUN, P 12 6 - 21 mg/dL Creatinine, P 0.71 0.59 - 1.04 mg/dL eGFR Black >90 >=60 mL/min/BSA eGFR Non-Black >90 >=60 mL/min/BSA Calcium, Total, P 9.6 8.6 - 10.0 mg/dL Glucose, P 94 70 - 140 mg/dL ASSESSMENT/PLAN # Deric Thyroiditis She is currently on levothyroxine 100 mcg daily, TSH is normal at 1.7, apart from some fatigue and weight gain she does not report hypothyroid symptoms, free T4 is borderline elevated at times however no hyperthyroid type symptoms. Will continue with following up on TSH levels and this being in normalrange recommend to continue with current levothyroxine dose. # PCOS # Obesity # Migraines She used ot be on OCP- however having spontaneous periods since she discontinued, recently she had some menstrual irregularity but last period was normal. She is also on Spironolactone and Metformin. Recommend to continue with metformin until (which she plans after wedding in 02/2021) and dis continue spironolactone a few months before trying for . She is concerned about the weight gain which was 8 kg since last visit. Lifestyle modifications and limiting calorie intake to 1200 per day recommended. If no significant change on weight she will be in touch with me in couple months then we can try phentermine. She reports persistent hunger feelings.She previously used to weigh 123 kg but with significant efforts was able to decrease weight to 84 kg. Follow up in 6 mo. I discussed above in details with the patient, all questions were addressed, she showed understanding and agreed with plan. ?? documented in this encounter Plan of Treatment Upcoming Encounters Date Type Specialty Care Team Description 04/22/2022 Appointment Laboratory Medicine Meryl Julio M.D. [address] [place] [address] (Wo rk) 04/29/2022 Office Visit Endocrinology Meryl Julio M .D. [address] [place] [address] (Hector martin) Scheduled Referrals Name Type Priority Associated Order Schedule Diagnoses Endocrinology office Outpatient Referral Routine Expected: visit (clinic) 02/17/2021 (Approximate), Expires: 2023 documented as of this encounter Visit Diagnoses Diagnosis Thyroiditis Deric's - Primary Polycystic Ovary Syndrome Obesity Body Mass Index 30-39.9 Adult documented in this encounter Care Teams Power Engineer Relationship Specialty Start Date End Date Audrey Burleson M.D. PCP - General Family Medicine 02/04/18 01/14/21 [address] [place] [address] documented as of this encounter
--- OUTSIDE RECORDS SUMMARY | 2022-03-06 07:06 | XMS_ITS | Encounter Summary ---
:1995 Author Organization [facility] Address [address] [place] [address] Care Team Providers Name Role Phone Audrey Burleson M.D. Primary Care Provider [phone] Reason for Visit Outpatient (Routine) - Canceled Specialty Diagnoses / Procedures Referred By Contact Refer red To Contact Diagnoses Sinusitis Chronic Maxillary Deviation Nasal Septal Nadeen Jacobs [facility] Procedures ENT Videolarynoscopy Willy Paula [address] [place] [address] Referral ID Status Reason Start Date Expiration Date Visits V isits Requested Authorized [id number] Canceled 08/17/2020 08/17/2021 1 1 Encounter Details Date Type Department Care Team Description 08/17/2020 Silent Schedule Department of Nadeen Jacobs Otorhinolaryngology in [place], [place] Willy Paula [address] [address] [place], [place] [phone] Social History Tobacco Use Types Packs/Day [...] or relatives? How often do you attend evangelical or mandaen More than 4 time s per year 06/21/2021 services? Do you belong to any clubs or organizations Yes 06/21/2021 such as evangelical groups, unions, fraternal or athletic groups, or [...] or slept in a fpc (including now)? 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 [address] [place], [place] [address] (Hector martin) 04/29/2022 Office Visit Endocrinology Meryl Julio M .D. [address] [place], [place] [address] (Hector martin) documented as of this encounter Visit Diagnoses Not on filedocumented in this encounter Care Teams Management Scientist Relationship Specialty Start Date End Date Audrey Burleson M.D. PCP - General Family Medicine 02/04/18 01/14/21 [facility] [place] [phone] documented as of this encounter
--- OUTSIDE RECORDS SUMMARY | 2022-03-06 07:07 | XMS_ITS | Encounter Summary ---
:1995 Author Organization [facility] Address [address] [place] [address] Care Team Providers Name Role Phone Audrey Burleson M.D. Primary Care Provider [phone] Reason for Visit Reason Comments Polycystic Ovary Syndrome Outpatient (Routine) - Closed Specialty Diagnoses / Procedures Referred By Contact Refer red To Contact Endocrinology Jalil Parikh M.D. [facility] [address] [place] [phone] Referral ID Status Reason Start Date Expiration Date Visits Requ ested Visits Authorized [id number] Closed 08/04/2018 08/04/2019 1 1 Encounter Details Date Type Department Care Team Description 01/04/2019 Office Visit Department of Jalil Parikh, Thyroiditis Deric's (Primary Dx); Endocrinology in [place] Polycystic Ovary Syndrome; [place], [place] Overweight Body Mass Index 2 5-29.9 Adult; [address] [place] [phone] Social History Tobacco Use Types Packs/Day [...] How often do you attend protestant or buddhism More than 4 time s per year [...] at Date Recorded Female 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 - 01/04/2019 10:30 AM CDT Patient Name: Felecia Cardenas [facility] [phone] Date of : 1995 CHIEF COMPLAINT PCOS, hypothyroidism HISTORY OF PRESENT ILLNESS Felecia Cardenas is a 23 y.o. female with history of sleep apnea, obesity is presenting for follow up regarding PCOS and hypothyroidism. She is on Micronor, was on Sprintec at previous visit and was reporting migraine headaches, changed to Micronor, noticed some anxiety and weight gain since however having regular periods, acne and hairnot very bothersome. She was doing great job with weight loss however gained about 10 lbs back. She is on Spironolactone 50 mg BID. She is also on Metformin 1000 mg BID- tolerating well. She has Deric Thyroiditis, currently on levothyroxine 88 mcg daily, last TS 2.2 on this dose (07/2018). She reports fatigue, was having palpitations as wellat last visit, Holter was ordered but she could not complete this yet, noticed improvement on palpitations. She was recently seen by Neurology for migraines- started on Propranolol. She gets diarrhea with Carb rich food, she had improvement of symptoms with gluten free diet, celiacscreening negative. ?? Current Outpatient Medications: ??? budesonide (RINOCORT AQUA) 32 mcg/actuation nasal spray, Administer 2 sprays into each nostril daily., Disp: 8.6 g, Rfl: 11 ??? levothyroxine (SYNTHROID, LEVOTHROID) 88 mcg tablet, Take 1 tablet (88 mcg total) by mouth everymorning before breakfast., Disp: 90 tablet, Rfl: 3 ??? metFORMIN XR (GLUCOPHAGE-XR) 500 mg 24 hr tablet, TAKE 2 TABLETS BY MOUTH TWICE A DAY, Disp: 120tablet, Rfl: 11 ??? norethindrone (MICRONOR) 0.35 mg tablet, Take 1 tablet (0.35 mg total) by mouth daily., Disp: 84tablet, Rfl: 3 ??? rizatriptan (MAXALT) 10 mg tablet, May repeat in 2 hours if unresolved. Do not exceed 30 mg in 24 hours. (Patient taking differently: every 2 (two) hours as needed. May repeat in 2 hours if unresolved. Do not exceed 30 mg in 24 hours. ), Disp: 15 tablet, Rfl: 1 ??? spironolactone (ALDACTONE) 50 mg tablet, Take 1 tablet (50 mg total) by mouth 2 (two) times a day., Disp: 180 tablet, Rfl: 3 ??? SUMAtriptan (IMITREX) 100 mg tablet, Take 1 tab at onset of migraine, may repeat after 2 hours; do not exceed 200 mg daily. Limit to two days per week., Disp: 9 tablet, Rfl: 11 ??? doxycycline monohydrate (MONODOX) 100 mg capsule, , Disp: , Rfl: ??? metFORMIN XR (GLUCOPHAGE XR) 500 mg 24 hr tablet, , Disp: , Rfl: ??? norethindrone (MICRONOR) 0.35 mg tablet, , Disp: , Rfl: ??? norethindrone (MICRONOR) 0.35 mg tablet, , Disp: , Rfl: ??? oxyCODONE (OXY-IR) 5 mg immediate release capsule, Take 1 capsule (5 mg total) by mouth every 6 (six) hours as needed for pain Indication: Prolonged Acute Pain/Traumatic Injury. (Patient not taking: Reported on 11/04/2018 ), Disp: 10 capsule, Rfl: 0 ??? predniSONE (DELTASONE) 10 mg tablet, , Disp: , Rfl: ??? predniSONE (DELTASONE) 20 mg tablet, Take 1 tablet (20 mg total) by mouth daily. (Patient not taking: Reported on 10/14/2018 ), Disp: 5 tablet, Rfl: 0 ??? predniSONE (DELTASONE) 20 mg tablet, Take 1 tablet (20 mg total) by mouth daily. (Patient not taking: Reported on 12/14/2018 ), Disp: 5 tablet, Rfl: 0 ??? propranolol (INDERAL LA) 80 mg 24 hr capsule, 1 cap a day for one week, then 2 caps a day (Patient not taking: Reported on 01/04/2019 ), Disp: 62 capsule, Rfl: 11 ??? sennosides-docusate sodium (SENNA WITH DOCUSATE SODIUM) 8.6-50 mg per tablet, Take 1 tablet by mouth daily as needed for constipation. (Patient not taking: Reported on 11/04/2018 ), Disp: 20 tablet,Rfl: 0 ??? sodium chloride (OCEAN) 0.65 % nasal spray, Administer 2 sprays into each nostril 3 (three) times a day. (Patient not taking: Reported on 11/04/2018 ), Disp: 15 mL, Rfl: 3 ??? spironolactone (ALDACTONE) 50 mg tablet, , Disp: , Rfl: Allergies Allergen Reactions ??? Clindamycin Anaphylaxis ??? Gentamicin Anaphylaxis ??? Ciprofloxacin Anaphylaxis Patient Active Problem List Diagnosis ??? Overweight Body Mass Index 25-29.9 Adult ??? Polycystic Ovary Syndrome ??? Thyroiditis Deric's ??? Obstructive Sleep Apnea Adult ??? Migraine Headache ??? Sinusitis Chronic Maxillary ??? Rhinitis Allergic Due To Outdoor Pollen ??? Rhinitis Allergic Dust Mite ??? Rhinitis Allergic Animal ??? Pulsatile Tinnitus Left Ear ??? Deviation Nasal Septal Past Surgical History: Procedure Laterality Date ??? APPENDECTOMY N/A Appendectomy ??? ARTHROSCOPY KNEE Right 04/2015 ??? CHOLECYSTECTOMY N/A Cholecystectomy ??? FUNCTIONAL ENDOSCOPY SINUS SURGERY WITH NAVIGATION Right 10/08/2018 Procedure: FUNCTIONAL ENDOSCOPY SINUS SURGERY WITH NAVIGATION Septoplasty and Bilateral turbinate reduction; Surgeon: Nisa Kahn M.D.; Location: [facility] OR ??? OTHER CONVERTED SHX (SEE COMMENT) [...] education level: None Occupational History ??? None Social Needs ??? Financial resource strain: None ??? Food insecurity: Worry: None Inability: None ??? Transportation needs: Medical: None Non-medical: None Tobacco Use ??? Smoking status: Never Smoker ??? Smokeless tobacco: Never Used Substance and Sexual Activity ??? Alcohol use: No ??? Drug use: No ??? Sexual activity: Defer Lifestyle ??? Physical activity: Days per week: None Minutes per session: None ??? Stress: None Relationships ??? Social connections: Talks on phone: None Gets together: None Attends buddhism service: None Active member of club or organization: None Attends meetings of clubs or organizations: None Relationship status: None ??? Intimate partner violence: Fear of current or ex partner: None Emotionally abused: None Physically abused: None Forced sexual activity: None Other Topics Concern ??? None Social History Narrative ??? None REVIEW OF SYSTEMS On complete review of systems, pertinent positive/negative as mentioned in HPI. PHYSICAL EXAM Vitals: 01/04/19 1008 BP: 122/66 Pulse: 64 Resp: 16 Height: 172 cm Weight: 84.2 kg General: No acute distress. Eyes: Anicteric Sclera, no proptosis. ENT: Mucous membranes moist and pink. CVS: Regular rate and rhythm. No murmur. Extremities: Warm, well perfused. Very fine tremors on outstretched hands. Neuro: Alert and oriented x 3, grossly intact. LABORATORY/DIAGNOSTICS Labs from [facility] 02/10/17 DHEA: 374 ug/dL (N [id number]) Glucose: 80 mg/dL Na: 138, K: 3.8, Crea: 0.67, BUN: 11 TSH: 1.19 Free T4: 1.7 24h urine Crea: 1.5 g/24h , volume: 1210 mL Glucose Fasting 103 mg/dL 12/04/2016 07:16 CDT (High) Gluc 2hr Glucola 136 mg/dL 12/04/2016 09:25 CDT 01/08/2018 09:45 04/16/2018 14:33 08/03/2018 15:56 TSH, Sensitive, S 2.0 0.9 2.2 T4 (Thyroxine), Free, S 1.8 (H) 1.7 Total T3 169 Hemoglobin A1c, B 4.8 ASSESSMENT/PLAN # Deric Thyroiditis # Palpitations She is on Levothyroxine 88 mcg daily, feeling overall better, palpitations improved, reports fatigue. Will hold off on Holter monitoring for now, will get Thyroid labs today and adjust the Levothyroxine dose accordingly. # PCOS # Overweight # Migraines She is on OCP (Micronor), spironolactone and Metformin. She had weight gain since last visit, reports regular periods on Micronor, also some increase on anxiety. Acne and hirsutism improved. Most recent HbA1c is 4.8%, normal. Will continue with same management for now. If she needs dose adjustment of Levothyroxine will have follow up visit in 3 mo- otherwise 6 mo. I discussed above in details with the patient, all questions were addressed, she showed understanding and agreed with plan. ?? I spent 25 min with the patient, >50% on counseling and coordination of care. documented in this encounter Miscellaneous Notes Result Encounter Note - Jalil Duran M.D. - 01/04/2019 10:30 AM CDT Portal message sent to patient. documented in this encounter Plan of Treatment Upcoming Encounters Date Type Specialty Care Team Description 04/22/2022 Appointment Laboratory Medicine Meryl Julio M.D. [address] [place] [address] (Wo rk) 04/29/2022 Office Visit Endocrinology Meryl Julio M .D. [address] [place] [address] (Wo rk) documented as of this encounter Procedures Procedure Name Priority Date/Time Associated Diagnosis Comme nts THYROID-STIMULATING Routine 01/04/2019 10:57 AM Thyroiditis R esults for this HORMONE-SENSITIVE CDT Deric's procedure are in (S-TSH) the results section. T4 (THYROXINE), Routine 01/04/2019 10:57 AM Thyroiditis Resul ts for this FREE, S CDT Deric's procedure are i n the results section. documented in this encounter Results (ABNORMAL) T4 (Thyroxine), Free (01/04/2019 10:57 AM CDT) P athologist Signature T4 2.1 (H) 0.9 - 1.7 01/04/2019 (Thyroxine), ng/dL 12:01 PM CDT Free, S Comment: Biotin has been identified by the landen lopes as a potential interfering substance. ??Higher concentr ations of biotin may be found in multivitamins, hair/nail supple ments, and workout supplements. ??If the result does not ma [facility] clinical observations, repeat testing after patient refrains fr om the use of supplements for at least 12 hours. Specimen Anatomical Collection Method Collection Time Receive d Time (Source) Location / / Volume Laterality Blood (Blood, 01/04/2019 10:57 01/04/2019 Venous) AM CDT 11:04 AM CDT Jalil Parikh M.D. LAB BLOOD ADD-ON Performing Organization Address City/[facility] Phon e Number [facility] [address] [place] [address] LAB S-TSH (Thyroid-Stimulating Hormone - Sensitive) (01/04/2019 10:57 AM CDT) P athologist Signature TSH, Sensitive 2.2 0.3 - 4.2 01/04/2019 mIU/L 12:01 PM CDT Comment: Biotin has been identified by the landen lopes as a potential interfering substance. ??Higher concentr ations of biotin may be found in multivitamins, hair/nail supple ments, and workout supplements. ??If the result does not ma h clinical observations, repeat testing after patient refrains fr om the use of supplements for at least 12 hours. Specimen Anatomical Collection Method Collection Time Receive d Time (Source) Location / / Volume Laterality Blood (Blood, 01/04/2019 10:57 01/04/2019 Venous) AM CDT 11:04 AM CDT Jalil Parikh M.D. LAB BLOOD ADD-ON Performing Organization Address City/[facility] Phon e Number [facility] [address] [place] [address] LAB documented in this encounter Visit Diagnoses Diagnosis Thyroiditis Deric's - Primary Polycystic Ovary Syndrome Overweight Body Mass Index 25-29.9 Adult Migraine Headache documented in this encounter Care Teams Pick Up Driver Relationship Specialty Start Date End Date Audrey Burleson M.D. PCP - General Family Medicine 02/04/18 01/14/21 [address] [place] [id number] documented as of this encounter
--- OUTSIDE RECORDS SUMMARY | 2022-03-06 07:07 | XMS_ITS | Encounter Summary ---
:1995 Author Organization [facility] Address [address] [place] [address] Care Team Providers Name Role Phone Audrey Burleson M.D. 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 [address] [place], [place] [address] (Wo rk) 04/29/2022 Office Visit Endocrinology Meryl Julio M .D. [address] [place], [place] [address] (Wo rk) documented as of this encounter Procedures Procedure Name Priority Date/Time Associated Comments Diagnosis OTORHINOLARYNGOLOGY IMAGE Routine 01/07/2019 3:35 Results for this EXAM AM CDT procedure are i n the results section. documented in this encounter Results Non-Radiology Image-Otorhinolaryngology Image Exam (01/07/2019 3:35 AM CDT) Specimen (Source) Anatomical Location Collection Method / Collectio n Time Received Time / Laterality Volume Narrative IIMS - 01/07/2019 3:57 PM CDT This order has been created and auto-finalized to support the import of images acquired without order. The clini shivam documentation to support these images can be found on the encounter hernandez t produced images. Provider Not In System IMG NON RAD IMAGING PROCEDUR ES Performing Organization Address City/State/ZIP Code Phon e Number IIMS IIMS NA documented in this encounter Visit Diagnoses Not on filedocumented in this encounter Care Teams Director Of Planning Relationship Specialty Start Date End Date Audrey Burleson M.D. PCP - General Family Medicine 02/04/18 01/14/21 [address] [place] [address] documented as of this encounter
--- OUTSIDE RECORDS SUMMARY | 2022-03-06 07:07 | XMS_ITS | Encounter Summary ---
:1995 Author Organization [facility] Address [address] [place] [address] Care Team Providers Name Role Phone Audrey Burleson M.D. Primary Care Provider [phone] Encounter Details Date Type Department Care Team Description 12/17/2019 Hospital Encounter Department of Nadeen Jacobs Thyroidi mae Deric's; Laboratory Medicine [place] For Screening For Other Viral Diseases (COVID-19) [place]. 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 Rhinitis Allergic Animal, Rhinitis Allergic Dust Mite, Rhinitis Allergic Due To Outdoor Pollen doxycycline monohydrate 0 11/16/2018 0 02/15/2020 (MONODOX) 100 mg capsule levothyroxine 1 tab daily, except 100 tablet 3 06/27/2019 (SYNTHROID, LEVOTHROID) 2 tab on Sundays 88 mcg tablet metFORMIN XR Take 2 tablets 120 tablet 11 01/04/2019 01/23/20 20 (GLUCOPHAGE-XR) 500 mg (1,000 mg total) by 24 hr tablet mouth 2 (two) times a day. norethindrone (MICRONOR) Take 1 tablet (0.35 84 tablet 3 02/15/2020 0.35 mg mg total) by mouth tabletIndications: daily. Polycystic Ovary Syndrome predniSONE (DELTASONE) 0 11/16/2018 10 mg tablet propranolol (INDERAL LA) 1 cap a day for one 62 capsule 11 01/24/2020 80 mg 24 hr capsule week, then 2 caps a day rizatriptan (MAXALT) 10 May repeat in 2 15 tablet 1 05/07/ 018 02/15/2020 mg tablet hours if unresolved. Do not exceed 30 mg in 24 hours. spironolactone Take 1 tablet (50 mg 180 tablet 3 01/04/2019 01/23/2020 (ALDACTONE) 50 mg total) by mouth 2 tabletIndications: (two) times a day. Polycystic Ovary Syndrome SUMAtriptan (IMITREX) Take 1 tab at onset 9 tablet 11 12/1702/15/2020 100 mg tablet of migraine, may repeat after 2 hours; do not exceed 200 mg daily. Limit to two days per week. documented as of this encounter Miscellaneous Notes Result Encounter Note - Jalil Parikh M.D. - 12/28/2019 11:23 AM CDT Please inform patient with below: Unfortunately she developed hyperthyroidism as we increased the levothyroxine dose at last visit. Recommend to resume previous dose as levothyroxine 88 mcg daily. We can repeat labs before next follow-up visit. Thanks! Jalil Parikh M.D. documented in this encounter Plan of Treatment Upcoming Encounters Date Type Specialty Care Team Description 04/22/2022 Appointment Laboratory Medicine Meryl Julio M.D. [address] [place] [address] (Hector martin) 04/29/2022 Office Visit Endocrinology Meryl Julio M .D. [address] [place] [address] (Hector martin) documented as of this encounter Procedures Procedure Name Priority Date/Time Associated Diagnosis Comme nts T3 Routine 12/17/2019 11:54 AM Thyroiditis Results for this (TRIIODOTHYRONINE), CDT Deric's procedur e are in TOT, S the results section. THYROID-STIMULATING Routine 12/17/2019 11:54 AM Thyroiditis R esults for this HORMONE-SENSITIVE CDT Deric's procedure are in (S-TSH) the results section. T4 (THYROXINE), Routine 12/17/2019 11:54 AM Thyroiditis Resul ts for this FREE, S CDT Deric's procedure are i n the results section. SARS CORONAVIRUS-2 Routine 12/17/2019 11:50 AM Encounter For R esults for this RNA, V CDT Screening For Other procedur e are in Viral Diseases the results (COVID-19) section. documented in this encounter Results T3 (Triiodothyronine), Total (12/17/2019 11:54 AM CDT) athologist Signature T3 121 80 - 200 12/19/2019 [facility] (Triiodothyroni ng/dL 8:51 AM CDT ne), Total, S Specimen Anatomical Collection Method Collection Time Receive d Time (Source) Location / / Volume Laterality Blood (Blood, 12/17/2019 11:54 12/19/2019 7:38 Venous) AM CDT AM CDT Jalil Parikh M.D. LAB BLOOD ADD-ON Performing Organization Address City/State/[facility] Code Phon e Number [facility] [address] [place], [place] [address] [place] [address] CENTER [facility] [place] [address] Laboratory Medicine and Pathology [address] [place] (ABNORMAL) T4 (Thyroxine), Free (12/17/2019 11:54 AM CDT) athologist Signature T4 2.1 (H) 0.9 - 1.7 12/17/2019 NPRG (Thyroxine), ng/dL 12:35 PM CDT Free, P Comment: Biotin has [...] Location / / Volume Laterality Blood (Blood, 12/17/2019 11:54 12/17/2019 Venous) AM CDT 11:57 AM CDT Jalil Parikh M.D. LAB BLOOD ADD-ON Performing Organization Address City/State/ZIP Code Phon e Number [place] [address] [address] [facility] NPR[facility] [place] [phone] [address] (ABNORMAL) S-TSH (Thyroid-Stimulating Hormone - Sensitive) (12/17/2019 11:54 AM CDT) Analysis Performed At Patho logist Time Signature TSH, Sensitive <0.03 (L) 0.3 - 4.2 12/17/2019 NPRG mIU/L 1:15 PM CDT Comment: Biotin has been identified by the landen lopes as a potential interfering substance. ??Higher concentr ations of biotin may be found in multivitamins, hair/nail supple ments, and workout supplements. ??If the result does not ma tch clinical observations, repeat testing after patient refrains fr om the use of supplements for at least 12 hours. Specimen Anatomical Collection Method Collection Time Receive d Time (Source) Location / / Volume Laterality Blood (Blood, 12/17/2019 11:54 12/17/2019 Venous) AM CDT 11:57 AM CDT Jalil Parikh M.D. LAB BLOOD ADD-ON Performing Organization Address City/[facility]/ZIP Code Phon e Number [place] [address] [facility] [place] [phone] SARS Coronavirus-2 RNA, V Asymptomatic (12/17/2019 11:50 AM CDT) Patholo gist Method Time Signature SARS-CoV-2 Swab, 12/18/2019 [facility] Specimen Nasopharynx 3:47 AM CDT Source SARS CoV-2 Undetected Undetected 12/18/2019 [facility] RNA, TMA 3:47 AM CDT Comment: SARS-CoV-2 RNA absent. This result does not rule out COVID-19 in the patient, as the sensitivity of the test depends o n the timing of the specimen collection and the quality of the specim en. Result should be correlated with patient's history and clinical presentat ion. ----ADDITIONAL INFORMATION---- This test is performed using the Aptima SARS-CoV-2 assay ([employer] which has received Emergency Use Authori zation (EUA) by the U.S. Food and Drug Administration. Fact sheets for this Emergency Use Autho rization (EUA) assay can be found at the following links: For Healthcare Providers: https://www.fd a.gov/media/772273/download For Patients: https://www.fda.gov/media/ 439165/download Specimen Anatomical Collection Method Collection Time Receive d Time (Source) Location / / Volume Laterality Varies 12/17/2019 11:50 12/17/2019 6:47 (Nasopharynx) AM CDT PM CDT Nisa Dee M.D. LAB MICROBIOLOGY - [facility] ORDERABLES Performing Organization Address City/State/[facility] Phon e Number [facility]- [address] [place] [phone] [place] [address] [place] [address] [address] documented in this encounter Visit Diagnoses Diagnosis Thyroiditis Deric's Encounter For Screening For Other Viral Diseases (COVID-19) documented in this encounter Additional Health Concerns Infection Onset Date Last Indicated Resolved Time COVID19 Pending 12/17/2019 12/17/2019 12/18/2019 3:47 AM CDT documented as of this encounter Care Teams Senior Software Qa Analyst Relationship Specialty Start Date End Date Audrey Burleson M.D. PCP - General Family Medicine 02/04/18 01/14/21 [address] [place] [address] documented as of this encounter
--- OUTSIDE RECORDS SUMMARY | 2022-03-06 07:07 | XMS_ITS | Encounter Summary ---
:1995 Author Organization [facility] Address [address] [place] [address] Care Team Providers Name Role Phone Audrey Burleson M.D. Primary Care Provider [phone] Reason for Referral Outpatient (Routine) - Closed Specialty Diagnoses / Procedures Referred By Contact Refer red To Contact Otorhinolaryngology Nadeen Dee [facility] Willy Paula [address] [place] [phone] Referral ID Status Reason Start Date Expiration Date Visits Requ ested Visits Authorized [id number] Closed 01/10/2019 01/10/2020 1 1 Scheduling Instructions 3- 4 month follow up Encounter Details Date Type Department Care Team Description 01/10/2019 Orders Only Department of Nadeen Jacobs Otorhinolaryngology in 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 [address] [place], [place] [address] (Hector martin) 04/29/2022 Office Visit Endocrinology Meryl Julio M .D. [address] [place], [place] [address] (Hector martin) Scheduled Referrals Name Type Priority Associated Order Schedule Diagnoses Otorhinolaryngology office Outpatient Routine E xpected: visit (clinic) Referral 04/12/2019 (Approximate), Expires: 01/10/2022 documented as of this encounter Visit Diagnoses Not on filedocumented in this encounter Care Teams Jewelry Facer Relationship Specialty Start Date End Date Audrey Burleson M.D. PCP - General Family Medicine 02/04/18 01/14/21 [address] [place] [phone] documented as of this encounter
--- OUTSIDE RECORDS SUMMARY | 2022-03-06 07:07 | XMS_ITS | Encounter Summary ---
:1995 Author Organization [facility] Address [address] [place] [address] Care Team Providers Name Role Phone Audrey Burleson M.D. 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 - 01/04/2019 3:51 PM CDT Addended by: ABHILASH DURAN on: 01/04/2019 03:51 PM Modules accepted: Orders Telephone Encounter - Abhilash Duran M.D. - 01/04/2019 3:51 PM CDT Refills done, thanks! Telephone Encounter - Jyoti Orozco L.PSebastianNSebastian - 01/04/2019 1:13 PM CDT Ramírez Wong LM that she will need refills on all her meds before she heads back to school, her BC, metformin, levo, and spironolactone, thanks documented in this encounter Plan of Treatment Upcoming Encounters Date Type Specialty Care Team Description 04/22/2022 Appointment Laboratory Medicine Meryl Julio M.D. [address] [place] [address] (Wo rk) 04/29/2022 Office Visit Endocrinology Meryl Julio M .D. [address] [place], [place] [address] (Wo rk) documented as of this encounter Visit Diagnoses Diagnosis Polycystic Ovary Syndrome documented in this encounter Care Teams Remote Broadcast Engineer Relationship Specialty Start Date End Date Audrey Burleson M.D. PCP - General Family Medicine 02/04/18 01/14/[address] [place] [phone] documented as of this encounter
--- OUTSIDE RECORDS SUMMARY | 2022-03-06 07:07 | XMS_ITS | Encounter Summary ---
:1995 Author Organization [facility] Address [address] [place] [address] Care Team Providers Name Role Phone Audrey Burleson M.D. 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 - 04/29/2019 10:06 AM SHIPPING ROOM HELPER Notified patient that Dr. Dee would like her to continue with the budesonide and that another prescription was sent to [facility] for a refill. PING ROOM HELPER Telephone Encounter - Nisa Kahn M.D. - 04/28/2019 8:19 AM CST I'm glad to hear she is doing better. I would like her to continue the budesonide irrigations and will send in a refill. PING ROOM HELPER Telephone Encounter - Mile Loera R.N. - 04/27/2019 2:40 PM SHIPPING ROOM HELPER Spoke with Felecia and she is getting some relief. She did go to Urgent Care in [place] and they did not feel comfortable prescribing more antibiotics. She is continuing to do the sinus rinses and has been getting a lot of mucous/drainage and is feeling some relief. She will be back in the area at the end of April and will schedule a follow up appointment at that time, if needed. Would you like her to continue with the budesonide as she is out now and would need a refill sent to [facility] if you want her to continue. PING ROOM HELPER Telephone Encounter - Mile Loera R.N. - 04/27/2019 12:01 PM SHIPPING ROOM HELPER LM for patient to return my call. PING ROOM HELPER Telephone Encounter - Nisa Kahn M.D. - 04/27/2019 11:09 AM CST Please let patient know that I'm sorry to hear that she doesn't feel well. If she continues to have right sided facial pain and purulent nasal drainage then I recommend she be seen by her PCP for evaluation and consideration of another course of antibiotics if deemed appropriate by her PCP. Unfortunately I am unable to prescribe meds without an eval. I would be happy to see her in my clinic at any point when she is in town. Hope she feels better soon! PING ROOM HELPER Telephone Encounter - Mile Loera R.N. - 04/20/2019 4:28 PM SHIPPING ROOM HELPER Call from patient- she has a history of sinus surgery with Dr. Dee and she is currently experiencing swollen, painful right sided facial pain, pain in the back teeth, unsure if fever. She is going to school in [place] and was seen there in Urgent Care and was given Doxycycline for 10 days which only gave her slight relief. I explained that Dr. Dee is out of the clinic until 04/26 but she requested that we send a message to see if there is anything else that she would recommend when she returns to the office. She continues to do daily saline irrigations with Budesonide (but she only has 2 days left of the budesonide). I did encourage her to return to Urgent Care or ED if symptoms worsen.Please advise. PING ROOM HELPER documented in this encounter Plan of Treatment Upcoming Encounters Date Type Specialty Care Team Description 04/22/2022 Appointment Laboratory Medicine Meryl Julio M.D. [facility] [place], [place] [address] (Wo rk) 04/29/2022 Office Visit Endocrinology Meryl Julio M .D. [address] [place], [place] [address] (Wo rk) documented as of this encounter Visit Diagnoses Not on filedocumented in this encounter Care Teams Principal Java Developer Relationship Specialty Start Date End Date Audrey Burleson M.D. PCP - General Family Medicine 02/04/18 01/14/21 [address] [place] [phone] documented as of this encounter
--- OUTSIDE RECORDS SUMMARY | 2022-03-06 07:07 | XMS_ITS | Encounter Summary ---
:1995 Author Organization [facility] Address [address] [place] [address] Care Team Providers Name Role Phone Audrey Burleson M.D. Primary Care Provider [phone] Reason for Referral MRI/CAT/PET Scan (Routine) - Closed Specialty Diagnoses / Procedures Referred By Contact Refer red To Contact Radiology Diagnoses Sinusitis Chronic Maxillary Deviation Nasal Septal Nadeen Dee [facility] Region Procedures CT Sinuses without IV Contrast Willy Paula [address] [place] [phone] Referral ID Status Reason Start Date Expiration Date Visits Requ ested Visits Authorized [id number] Closed 01/07/2019 01/07/2020 1 1 Reason for Visit MRI/CAT/PET Scan (Routine) - Closed Specialty Diagnoses / Procedures Referred By Contact Refer red To Contact Radiology Diagnoses Sinusitis Chronic Maxillary Deviation Nasal Septal Nadeen Dee [facility] Region Procedures CT Sinuses without IV Contrast Willy Paula [address] [place] [phone] Referral ID Status Reason Start Date Expiration Date Visits Requ ested Visits Authorized [id number] Closed 01/07/2019 01/07/2020 1 1 Encounter Details Date Type Department Care Team Description 01/07/2019 Hospital Encounter Department of Nadeen Jacobs Sinusiti s Chronic Maxillary; Radiology, [place] Larissa Dee [facility], eliana Paula M.D. [place] [phone] [facility] [address] [place] [phone] Social History Tobacco Use Types Packs/Day [...] How often do you attend taoism or orthodoxy More than 4 time s per year [...] place to sleep or slept in a [facility] (including now)? 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 sodium chloride (OCEAN) Administer 2 sprays 15 mL 3 10/08/2019 0.65 % nasal spray into each nostril 3 (three) times a day. budesonide (RINOCORT Administer 2 sprays 8.6 g 11 201802/15/2020 AQUA) 32 mcg/actuation into each nostril nasal sprayIndications: daily. Rhinitis Allergic Animal, Rhinitis Allergic Dust Mite, Rhinitis Allergic Due To Outdoor Pollen doxycycline monohydrate 0 11/16/2018 0 02/15/2020 (MONODOX) 100 mg capsule levothyroxine Take 1 tablet (88 90 tablet 3 01/04/2019 02/0 07/2019 (SYNTHROID, LEVOTHROID) mcg total) by mouth 88 mcg tablet every morning before breakfast. metFORMIN XR Take 2 tablets 120 tablet [...] per week. documented as of this encounter Plan of Treatment Upcoming Encounters Date Type Specialty Care Team Description 04/22/2022 Appointment Laboratory Medicine Meryl Julio M.D. [address] [place], [place] [address] (Wo rk) 04/29/2022 Office Visit Endocrinology Meryl Julio M .D. [address] [place], [place] [address] (Wo rk) documented as of this encounter Procedures Procedure Name Priority Date/Time Associated Comments Diagnosis CT SINUSES RAD - Routine 01/07/2019 4:48 Sinusitis Chronic Result s for this WITHOUT IV (most inpatients PM CDT Maxillary procedure are in CONTRAST and all Deviation Nasal the results outpatients) Septal section. documented in this encounter Results CT Sinuses without IV Contrast (01/07/2019 4:48 PM CDT) Anatomical Region Laterality Modality Head, Neuroradiology RST LOS, Neuroradiology ARZ LOS, N/A Computed Tomography Neuroradiology FLA LOS Specimen (Source) Anatomical Collection Method Collection Time Re ceived Time Location / / Volume Laterality 01/07/2019 4:54 PM CDT Impressions 01/07/2019 4:57 PM CDT Chronic atelectasis and mild mucosal thickening of the RIGHT maxillary sinus with likely postoperativ e changes as described. There is less mucosal thickening in the RIGHT maxillar y sinus since October 04. Narrative 01/07/2019 4:57 PM CDT EXAM: CT SINUSES WITHOUT IV CONTRAST COMPARISON: CT sinuses 10/04/2018 FINDINGS: There is chronic atelectasis o f the RIGHT maxillary sinus with mucosal thickening. There also appears to be a w jonathan nasal antral window which is postoperative. There is also septal spur ring and deviation to the RIGHT. The middle and inferior meati are clear. The remaining paranasal sinuses are clear. Procedure Note Jong Arriaga M.D. - 01/07/2019Forma tting of this note might be different from the original. EXAM: CT SINUSES WITHOUT IV CONTRAST COMPARISON: CT sinuses 10/04/2018 FINDINGS: There is chronic atelectasis o f the RIGHT maxillary sinus with mucosal thickening. There also appears to be a w jonathan nasal antral window which is postoperative. There is also septal spur ring and deviation to the RIGHT. The middle and inferior meati are clear. The remaining paranasal sinuses are clear. IMPRESSION: Chronic atelectasis and mild mucosal thi ckening of the RIGHT maxillary sinus with likely postoperativ e changes as described. There is less mucosal thickening in the RIGHT maxillar y sinus since October 04. Nisa Dee M.D. IMG CT PROCEDURES documented in this encounter Visit Diagnoses Diagnosis Sinusitis Chronic Maxillary Deviation Nasal Septal documented in this encounter Care Teams Holder Pile Driving Relationship Specialty Start Date End Date Audrey Burleson M.D. PCP - General Family Medicine 02/04/18 01/14/[address] [place] [phone] documented as of this encounter
--- OUTSIDE RECORDS SUMMARY | 2022-03-06 07:07 | XMS_ITS | Encounter Summary ---
:1995 Author Organization [facility] Address [address] [place] [address] Care Team Providers Name Role Phone Audrey Burleson M.D. Primary Care Provider [phone] Reason for Visit Outpatient (Routine) - Closed Specialty Diagnoses / Procedures Referred By Contact Refer red To Contact Diagnoses Sinusitis Chronic Maxillary Deviation [facility] Procedures Nasal / sinus endoscopy [place] NASAL ENDOSCOPY DX GISELA/ANTONI Paula M.D. [address] [place] [phone] Referral ID Status Reason Start Date Expiration Date Visits Requ ested Visits Authorized [id number] Closed 12/20/2019 12/19/2020 1 1 Encounter Details Date Type Department Care Team Description 12/20/2019 Silent Schedule Department of Nadeen Jacobs Sinusitis C hronic Maxillary; [facility] [place], [place] Willy Paula [address] 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 [address] [place] [address] (Hector martin) 04/29/2022 Office Visit Endocrinology Meryl Julio M .D. [address] [place] [address] (Hector martin) documented as of this encounter Procedures Procedure Name Priority Date/Time Associated Diagnosis Comme nts NASAL / SINUS Routine 12/20/2019 1:15 PM Sinusitis Chronic Res ults for this ENDOSCOPY CDT Maxillary procedure are in Deviation Nasal the results Septal section. documented in this encounter Results Nasal / sinus endoscopy (12/20/2019 1:15 PM CDT) Specimen (Source) Anatomical Location Collection Method / Collectio n Time Received Time / Laterality Volume Narrative Nisa Kahn M.D. - 1:15 PM CDT Nisa Kahn M.D. ? 12/21/2019 11:49 AM Nasal / sinus endoscopy Date/Time: 12/20/2019 1:00 PM Performed by: Sharon Kahn M.D. Authorized by: Zeke Kahn M.D. CONSENT Consent obtained: verbal Consent given by: patient The benefits, risks and alternatives to the procedure and the potential need for sedation or anesthesia as well as the names, roles, and responsibilities of healthcare team memb ers performing significant interventional tasks were discussed with the patient and/or decision maker. POST-PROCEDURE DETAILS Procedure completed successfully: yes ?? Complications: no apparent complications ?? Nisa Dee M.D. ENT ORDERABLES documented in this encounter Visit Diagnoses Diagnosis Sinusitis Chronic Maxillary Deviation Nasal Septal documented in this encounter Care Teams Storeperson Relationship Specialty Start Date End Date Audrey Burleson M.D. PCP - General Family Medicine 02/04/18 01/14/[address] [place] [phone] documented as of this encounter
--- OUTSIDE RECORDS SUMMARY | 2022-03-06 07:07 | XMS_ITS | Encounter Summary ---
:1995 Author Organization [facility] Address [address] [place] [address] Care Team Providers Name Role Phone Audrey Burleson M.D. Primary Care Provider [phone] Reason for Referral Outpatient (Routine) - Closed Specialty Diagnoses / Procedures Referred By Contact Refer red To Contact Diagnoses Sinusitis Chronic Maxillary Deviation Nasal Septal JALIL Kahn [facility] Region Procedures ENT Miscellaneous procedures Willy Paula [address] [place] [address] Referral ID Status Reason Start Date Expiration Date Visits Requ ested Visits Authorized [id number] Closed 12/20/2019 12/19/2020 1 1 utpatient (Routine) - Closed Specialty Diagnoses / Procedures Referred By Contact Refer red To Contact Diagnoses Sinusitis Chronic Maxillary Deviation Nasal Septal JALIL Kahn [facility] Region Procedures Nasal / sinus endoscopy [place] NASAL ENDOSCOPY DX GISELA/ANTONI Paula M.D. [address] [place] [address] Referral ID Status Reason Start Date Expiration Date Visits Requ ested Visits Authorized [id number] Closed 12/20/2019 12/19/2020 1 1 Reason for Visit Reason Comments Sinusitis Tinnitus Outpatient (Routine) - Closed Specialty Diagnoses / Procedures Referred By Contact Refer red To Contact Otorhinolaryngology Nadeen Dee [facility] Willy Paula [address] [place] [address] Referral ID Status Reason Start Date Expiration Date Visits Requ ested Visits Authorized [id number] Closed 05/31/2019 05/30/2020 1 1 Encounter Details Date Type Department Care Team Description 12/20/2019 Office Visit Department of Nadeen Jacobs Sinusitis Compensation Associate ruth Maxillary (Primary Dx); Otorhinolaryngology in [facility] eviation Nasal Septal; [place], [place] Willy Paula Pulsatile Tinnitus Left Ear [address] [place] [address] [place], [place] [phone] Social History Tobacco Use Types Packs/Day Years [...] or relatives? How often do you attend catholic or worship More than 4 time s per year 06/21/2021 services? 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 - 12/20/2019 1:15 PM CDTAssociated Order(s): Nasal / sinus endoscopy Pre-Procedure Diagnose(s): Sinusitis Chronic Maxillary ENT POSTOPERATIVE/PROCEDURE VISIT SUBJECTIVE CHIEF COMPLAINT/REASON FOR VISIT Status post right-sided??FESS??and septoplasty. HISTORY OF PRESENT ILLNESS Felecia Cardenas is a 24 y.o. 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 Recall that patient had right sided silent sinus syndrome for which she underwent the sinus part of the procedure. Overall patient reports that she has been doing fairly well. She does note that about once or twice a month she will have sense of pressure and fullness in right mid face and that during these episodes she will eventually be able to irrigate out a large piece of dried yellow/green crust during her sinus irrigations. She continues to perform daily budesonide sinus irrigations however sheis running out of the budesonide. She denies any other sinus or nasal concerns today. She reports that she does have ongoing intermittent left-sided pulsatile tinnitus for which she was seen and evaluated by Neurology. Past medical history/surgical history/family history/social history, medications and allergies reviewed and are unchanged per initial visit note. REVIEW OF SYSTEMS Please see HPI; otherwise rest of ROS performed and were negative. OBJECTIVE VITAL SIGNS Pulse 82 Temp 36.2 ??C (Temporal) SpO2 97% PHYSICAL EXAMINATION General: Alert and oriented, No [...] no stertor or stridor.??Good voice quality. PROCEDURE: Nasal / sinus endoscopy Date/Time: 12/20/2019 1:00 PM Performed by: Nisa Kahn M.D. Authorized by: Nisa Kahn M.D. CONSENT Consent obtained: verbal Consent given by: patient The benefits, risks and alternatives to the procedure and the potential need for sedation or anesthesia as well as the names, roles, and responsibilities of healthcare team members performing significant interventional tasks were discussed with the patient and/or decision maker. POST-PROCEDURE DETAILS Procedure completed successfully: yes Complications: no apparent complications Nasal Endoscopy: Verbal consent obtained and universal protocol followed. ??In order to evaluate structures that could not adequately be assessed by anterior rhinoscopy, rigid nasal endoscopy was performed as a separate identifiable procedure. The nasal passages and the nasopharynx were anesthetized with a topical application of Afrin and 4% lidocaine in a 50:50 mixture. After an appropriate interval, a??flexible endoscope was introduced into the right side of the nose with an examination of the inferior, middle, and superior meatus. The septum was examined. The choana was examined. The scope was advance to the nasopharynx with examination of the right Eustachian tube orifice, the right posterior wall of the nasopharynx, and the nasal aspect of the soft palate. The scope was then withdrawn. The flexible endoscope was introduced into the left side of the nose with an examination [...] tolerated the procedure well. ?? Specific findings:?? Septal spur to the right noted. Septum is intact with no evidence of septal hematoma or perforation. Bilateral nasal cavities without any evidence of purulence. ??Left middle meatus clear without any evidence of polyposis. Right middle meatus without any evidence of polyposis. Right maxillary antrostomy with scar tissue however that does appear to be an opening. Mild light yellowsecretions noted in nasopharynx on the right. 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 Patient reports that she has been doing fairly well. She does note intermittent episodes of right-sided pressure and fullness and crusting. This occurs one to 2 times a month. We have discussed severaloptions including continued clinical observation and treatment with sinus irrigations verses surgical intervention. She does appear to have scar tissue that has formed at maxillary antrostomy site on the right hence we discussed surgery to further open this up. We also discussed a referral to [facility] for more extensive surgery. At this time given that her symptoms are intermittent and fairly well tolerable she would like to continue clinical observation which is reasonable. I will have her continue her daily sinus irrigations. Given that her sinuses have healed well after surgery she no longer needs to continue the budesonide and instead I will place on daily use of Flonase. #3 Pulsatile Tinnitus Left Ear Patient has ongoing intermittent left-sided pulsatile tinnitus.??She has had a temporal bone CT scanthat was unremarkable as well as a CT angiogram of her head and neck that was noted to be negative. Patient has also had an audiogram that showed normal hearing. She has also been seen and evaluated byNeurology for this and MRI??brain was obtained and noted to be unremarkable. I will plan to see patient back in six months or sooner if she has any questions or concerns. Patient verbalized understanding of our plan. Patient's questions were solicited and answered. They understand to call my clinic if they have questions, concerns, or worsening or progression of symptoms. This note was completed with voice recognition software. Please excuse typographic errors. documented in this encounter Plan of Treatment Upcoming Encounters Date Type Specialty Care Team Description 04/22/2022 Appointment Laboratory Medicine Meryl Julio M.D. [facility] [place], [place] [address] (Hector martin) 04/29/2022 Office Visit Endocrinology Meryl Julio M .D. [address] [place], [place] [address] (Hector martin) documented as of [...] apparent complications Nisa Dee M.D. ENT ORDERABLES Nasal / sinus endoscopy (12/20/2019 1:15 PM [...] Chronic Maxillary - Primary Deviation Nasal Septal Pulsatile Tinnitus Left Ear Sinusitis Chronic Maxillary Deviation Nasal Septal Sinusitis Chronic Maxillary - Primary Deviation Nasal Septal documented in this encounter Care Teams Business Development Relationship Specialty Start Date End Date Audrey Burleson M.D. PCP - General Family Medicine 02/04/18 01/14/[address] [place] [phone] documented as of this encounter
--- OUTSIDE RECORDS SUMMARY | 2022-03-06 07:07 | XMS_ITS | Encounter Summary ---
:1995 Author Organization [facility] Address [address] [place] [address] Care Team Providers Name Role Phone Audrey Burleson M.D. Primary Care Provider [phone] Encounter Details Date Type Department Care Team Description 12/20/2019 Ancillary Procedure Department of Otorhinolaryngology Social History [...] or relatives? How often do you attend adventism or sabianist More than 4 time s per year 06/21/2021 services? 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 [address] [place], [place] [address] (Wo rk) 04/29/2022 Office Visit Endocrinology Meryl Julio M .D. [address] [place], [place] [address] (Wo rk) documented as of this encounter Procedures Procedure Name Priority Date/Time Associated Comments Diagnosis OTORHINOLARYNGOLOGY IMAGE Routine 12/20/2019 1:10 Results for this EXAM PM CDT procedure are i n the results section. documented in this encounter Results Non-Radiology Image-Otorhinolaryngology Image Exam (12/20/2019 1:10 PM CDT) Specimen (Source) Anatomical Location Collection Method / Collectio n Time Received Time / Laterality Volume Narrative IIMS - 04/09/2020 12:50 PM FISH TRAPPER This order has been created and auto-finalized [...] on filedocumented in this encounter Care Teams Graduate Recruiter Relationship Specialty Start Date End Date Audrey Burleson M.D. PCP - General Family Medicine 02/04/18 01/14/21 [address] [place] [address] documented as of this encounter
--- OUTSIDE RECORDS SUMMARY | 2022-03-06 07:07 | XMS_ITS | Encounter Summary ---
:1995 Author Organization [facility] Address [address] [place] [address] Care Team Providers Name Role Phone Audrey Burleson M.D. Primary Care Provider [phone] Reason for Referral Outpatient (Routine) - Closed Specialty Diagnoses / Procedures Referred By Contact Refer red To Contact Otorhinolaryngology JALIL Kahn KHRIS Paula M.D. [address] [place] [phone] Referral ID Status Reason Start Date Expiration Date Visits Requ ested Visits Authorized [id number] Closed 05/31/2019 05/30/2020 1 1 Scheduling Instructions 3 month follow up PARTS MOLDER Reason for Visit Reason Comments Follow-up Outpatient (Routine) - Closed Specialty Diagnoses / Procedures Referred By Contact Refer naomy To Contact [facility] David Paula M.D. [address] [place] [phone] Referral ID Status Reason Start Date Expiration Date Visits Requ ested Visits Authorized [id number] Closed 01/10/2019 01/10/2020 1 1 Encounter Details Date Type Department Care Team Description 05/31/2019 Office Visit Department of Nadeen Jacobs Sinusitis Health Insurance Specialist ruth Maxillary (Primary Dx); Otorhinol[facility]ology in [facility] Nasal Septal; [place], [place] Willy Paula Pulsatile Tinnitus Left Ear [address] [facility] [address] [place] [address] [place], [place] [phone] Social History Tobacco Use Types Packs/Day [...] or relatives? How often do you attend orthodox or cheondoism More than 4 time s per year 06/21/2021 services? 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 - 05/31/2019 3:45 PM CST ENT POSTOPERATIVE/PROCEDURE VISIT SUBJECTIVE CHIEF COMPLAINT/REASON FOR VISIT Status post right-sided??FESS??and septoplasty. HISTORY OF PRESENT ILLNESS Felecia Cardenas is a 23 y.o. 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 Recall that patient had silent sinus syndrome for which she underwent the sinus part of the procedure. She reports some mild dental tenderness in the last week as well as midface pressure and pain on both sides. She reports that she continues to perform her daily budesonide sinus irrigations. She denies any purulent nasal drainage however reports that she recently had some crusting from her right nasal cavity that she noted after irrigation. She reports that she does have ongoing intermittent left-sided pulsatile tinnitus for which she was recently seen and evaluated by Neurology. She reports that up until recently she had been doing really well without sinus issues and that recently in the last mo nth she started to have more issues with pressure, fullness, and the left intermittent pulsatile tinnitus. Past medical history/surgical history/family history/social history, medications and allergies reviewed and are unchanged per initial visit note. REVIEW OF SYSTEMS Please see HPI; otherwise rest of ROS performed and were negative. OBJECTIVE VITAL SIGNS BP 100/66 (BP Location: Right arm, Patient Position: Sitting, Cuff Size: Large) Pulse 80 Temp 36.6 ??C Ht 167.6 cm Wt 84.6 kg BMI 30.12 kg/m?? PHYSICAL EXAMINATION General: Alert and oriented, No [...] stertor or stridor.??Good voice quality. PROCEDURE: Nasal Endoscopy: Verbal consent obtained and universal protocol followed. ??In order to evaluate structures that could not adequately be assessed by anterior rhinoscopy, rigid nasal endoscopy was performed as a separate identifiable procedure. The nasal passages and the nasopharynx were anesthetized with a topical application of Afrin and 4% lidocaine in a 50:50 mixture. After an appropriate interval, a??30??degree endoscope was introduced into the right side of the nose with an examination of the inferior, middle, and superior meatus. The septum was examined. The choana was examined. The scope wasadvance to the nasopharynx with examination of the right Eustachian tube orifice, the right posterior wall of the nasopharynx, and the nasal aspect of the soft palate. The scope was then withdrawn. The30??degree endoscope was introduced into the left side [...] palate. The scope was then withdrawn. There wereno complications and the patient tolerated the procedure well. ?? Specific findings:?The septum is midline and intact with no evidence of septal hematoma or perforation. ??Bilateral nasal cavities without any evidence of purulence. ??Left middle meatus clear without any evidence of polyposis. Right middle meatus without any evidence of polyposis. Right maxillary a ntrostomy with scar tissue however I was able to place a curved suction into the right maxillary sinus. DIAGNOSTICS IMAGING CT sinus scan from 01/07/2019 was independently reviewed and patient noted to have mild mucosal thickening involving the right maxillary sinus with postoperative changes however the rest of her paranasal sinuses were noted to be unremarkable. ASSESSMENT / PLAN #1 Sinusitis Chronic Maxillary #2 Deviation Nasal Septal Ms.??Derner??a 23-year-old female that presented to me with right-sided chronic maxillary sinusitis that was consistent with silent sinus syndrome as well as deviated septum. ??Patient underwent right-sided maxillary antrostomy, septoplasty, and bilateral inferior turbinate reduction and outfracture on 10/08/2018. She does not have a history of asthma, nasal polyposis, or sensitivity to aspirin or ibuprofen. ??She has been seen and evaluated by Dr. 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 Patient continues to have chronic facial pain and pressure. She does have a history of chronic migraines and was has seen and evaluated by neurology. I discussed with patient that her nasal endoscopy today as well as her postoperative CT scan was fairly unremarkable. I discussed that her symptoms could be due to her chronic migraines as well as related to ongoing allergies. She does plan to go back to see her ui ux engineer now that she is back in town. In the mean while we also discussed a month long course of doxycycline in conjunction with her daily budesonide irrigations as an additional anti-inflamm atory medication. She want to try this hence it was prescribed. She understands the risks of use of doxycycline. #3 Pulsatile Tinnitus Left Ear Patient has [...] will plan to see patient back in three months or sooner if she has any questions or concerns. Patient verbalized understanding of our plan. Patient's questions were solicited and answered. They understand to call my clinic if they have questions, concerns, or worsening or progression of symptoms. This note was completed with voice recognition software. Please excuse typographic errors. PARTS MOLDER documented in this encounter Plan of Treatment Upcoming Encounters Date Type Specialty Care Team Description 04/22/2022 Appointment Laboratory Medicine Meryl Julio M.D. [address] [place], [place] [address] (Wo rk) 04/29/2022 Office Visit Endocrinology Meryl Julio M .D. [address] [place] [address] (Wo rk) Scheduled Referrals Name Type Priority Associated Order Schedule Diagnoses Otorhinolaryngology office Outpatient Routine E xpected: visit (clinic) Referral 08/30/2019 (Approximate), Expires: 05/31/2022 documented as of this encounter Visit Diagnoses Diagnosis Sinusitis Chronic Maxillary - Primary Deviation Nasal Septal Pulsatile Tinnitus Left Ear documented in this encounter Care Teams Livestock Speculator Relationship Specialty Start Date End Date Audrey Burleson M.D. PCP - General Family Medicine 02/04/18 01/14/[address] [place] [phone] documented as of this encounter
--- OUTSIDE RECORDS SUMMARY | 2022-03-06 07:07 | XMS_ITS | Encounter Summary ---
:1995 Author Organization [facility] Address [address] [place] [address] Care Team Providers Name Role Phone Audrey Burleson M.D. Primary Care Provider [phone] Encounter Details Date Type Department Care Team [...] or relatives? How often do you attend lutheran or methodist More than 4 time s per year 06/21/2021 services? Do you belong to any clubs or organizations Yes 06/21/2021 such as lutheran groups, unions, fraternal or athletic groups, or [...] at Date Recorded Female 06/21/2021 12:52 PM PORTRAIT ARTIST documented as of this encounter Plan of Treatment Upcoming Encounters Date Type Specialty Care Team Description 04/22/2022 Appointment Laboratory Medicine Meryl Julio M.D. [address] [place], [place] [address] (Wo rk) 04/29/2022 Office Visit Endocrinology Meryl Julio M .D. [address] [place], [place] [address] (Wo rk) documented as of this encounter Procedures Procedure Name Priority Date/Time Associated Comments Diagnosis OTORHINOLARYNGOLOGY IMAGE Routine 01/07/2019 3:40 Results for this EXAM AM CDT procedure are i n the results section. documented in this encounter Results Non-Radiology Image-Otorhinolaryngology Image Exam (01/07/2019 3:40 AM CDT) Specimen (Source) Anatomical Location Collection Method / Collectio n Time Received Time / Laterality Volume Narrative IIMS - 01/07/2019 3:58 PM CDT This order has been created [...] on filedocumented in this encounter Care Teams Scientific Artist Relationship Specialty Start Date End Date Audrey Burleson M.D. PCP - General Family Medicine 02/04/18 01/14/21 [address] [place] [phone] documented as of this encounter
--- OUTSIDE RECORDS SUMMARY | 2022-03-06 07:07 | XMS_ITS | Encounter Summary ---
:1995 Author Organization [facility] Address [address] [place] [address] Care Team Providers Name Role Phone Audrey Burleson M.D. Primary Care Provider [phone] Reason for Referral Outpatient (Routine) - Closed Specialty Diagnoses / Procedures Referred By Contact Refer red To Contact Endocrinology Jalil Parikh M.D. [address] [address] Referral ID Status Reason Start Date Expiration Date Visits Requ ested Visits Authorized [id number] Closed 06/27/2019 06/26/2020 1 1 FIRE OPERATOR Reason for Visit Reason Comments Deric's Thyroiditis PCOS, had labs today Outpatient (Routine) - Closed Specialty Diagnoses / Procedures Referred By Contact Refer naomy To Contact Endocrinology Jalil Parikh M.D. [address] [address] Referral ID Status Reason Start Date Expiration Date Visits Requ ested Visits Authorized [id number] Closed 01/04/2019 01/04/2020 1 1 Encounter Details Date Type Department Care Team Description 06/27/2019 Office Visit Department of Jalil Parikh, Thyroiditis Deric's (Primary Dx); Endocrinology in M.D. Polycystic Ovary Syndrome; [place], [place] Migraine Headache; [address] Obesity Body Mass Index 30-3 9.9 [place] [address] Social History Tobacco Use Types Packs/Day [...] How often do you attend uatsdin or religion More than 4 time s [...] at Date Recorded Female 06/21/2021 12:52 PM DRAW FIRE OPERATOR documented as of this encounter Last Filed Vital Signs Vital Sign Reading Time Taken Comments Blood Pressure 100/64 06/27/2019 11:17 AM DRAW FIRE OPERATOR Pulse 84 06/27/2019 11:17 AM DRAW FIRE OPERATOR Temperature - - Respiratory Rate 16 06/27/2019 11:17 AM DRAW FIRE OPERATOR Oxygen Saturation - - Inhaled Oxygen Concentration - - Weight 87 kg (191 lb 12.8 oz) 06/27/2019 11:17 AM DRAW FIRE OPERATOR Height 167.8 cm (5' 6.06) 06/27/2019 11:17 AM DRAW FIRE OPERATOR Body Mass Index 30.9 06/27/2019 11:17 AM DRAW FIRE OPERATOR documented in this encounter Patient Instructions Patient InstructionsJalil Parikh M.D. - 06/27/2019 11:30 AM CST Please take Levothyroxine 2 tab on Thursday and 1 tab daily for rest of the week. Repeat labs in 2 mo. Follow up in 6 mo. FIRE OPERATOR documented in this encounter Progress Notes Jalil Parikh M.D. - 06/27/2019 11:30 AM CST Patient Name: Felecia Cardenas [facility] [phone] Date of : 1995 CHIEF COMPLAINT PCOS, hypothyroidism HISTORY OF PRESENT ILLNESS Felecia Cardenas is a 23 y.o. female with history of sleep apnea, obesity is presenting for follow up regarding PCOS and hypothyroidism. She used to be on Micronor- discontinued a month ago, had spontaneous period a month later afterwards. She was on Sprintec before- was reporting migraine headaches with it. She is on Spironolactone- noconcerns with acne or excess hair at this time. She gets chronic sinusitis- on Doxycycline. She was doing great job with weight loss however gained about 7 lbs back. She takes Metformin 1000 mg BID- tolerating well. 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 She noticed more fatigue and hair loss lately. She denies palpitations. She is on Propranolol for migraines. She gets diarrhea with Carb rich food, she had improvement of symptoms with gluten free diet, celiacscreening negative. ?? Current Outpatient Medications: ??? doxycycline monohydrate (ADOXA) 100 mg tablet, Take 1 tablet (100 mg total) by mouth 2 (two) times a day for 28 days., Disp: 56 tablet, Rfl: 0 ??? levothyroxine (SYNTHROID, LEVOTHROID) 88 mcg tablet, Take 1 tablet (88 mcg total) by mouth everymorning before breakfast., Disp: 90 tablet, Rfl: 3 ??? metFORMIN XR (GLUCOPHAGE-XR) 500 mg 24 hr tablet, Take 2 tablets (1,000 mg total) by mouth 2 (two) times a day., Disp: 120 tablet, Rfl: 11 ??? propranolol (INDERAL LA) 80 mg 24 hr capsule, 1 cap a day for one week, then 2 caps a day, Disp:62 capsule, Rfl: 11 ??? rizatriptan (MAXALT) 10 mg tablet, May repeat in 2 hours if unresolved. Do not exceed 30 mg in 24 hours. (Patient taking differently: every 2 (two) hours as needed. May repeat in 2 hours if unresolved. Do not exceed 30 mg in 24 hours. ), Disp: 15 tablet, Rfl: 1 ??? sodium chloride (OCEAN) 0.65 % nasal spray, Administer 2 sprays into each nostril 3 (three) times a day., Disp: 15 mL, Rfl: 3 ??? spironolactone (ALDACTONE) 50 mg tablet, Take 1 tablet (50 mg total) by mouth 2 (two) times a day., Disp: 180 tablet, Rfl: 3 ??? SUMAtriptan (IMITREX) 100 mg tablet, Take 1 tab at onset of migraine, may repeat after 2 hours; do not exceed 200 mg daily. Limit to two days per week., Disp: 9 tablet, Rfl: 11 ??? budesonide (RINOCORT AQUA) 32 mcg/actuation nasal spray, Administer 2 sprays into each nostril daily. (Patient not taking: Reported on 06/27/2019 ), Disp: 8.6 g, Rfl: 11 ??? doxycycline monohydrate (MONODOX) 100 mg capsule, , Disp: , Rfl: ??? norethindrone (MICRONOR) 0.35 mg tablet, Take 1 tablet (0.35 mg total) by mouth daily. (Patient not taking: Reported on 06/27/2019 ), Disp: 84 tablet, Rfl: 3 ??? predniSONE (DELTASONE) 10 mg tablet, , Disp: , Rfl: ??? sennosides-docusate sodium (SENNA WITH DOCUSATE SODIUM) 8.6-50 mg per tablet, Take 1 tablet by mouth daily as needed for constipation. (Patient not taking: Reported on 11/04/2018 ), Disp: 20 tablet,Rfl: 0 Allergies Allergen Reactions ??? Clindamycin Anaphylaxis [...] turbinate reduction; Surgeon: Nisa Kahn M.D.; Location[facility] OR ??? OTHER CONVERTED SHX (SEE [...] ??? Financial resource strain: None ??? Food insecurity Worry: None Inability: None ??? Transportation needs Medical: None Non-medical: None Tobacco Use ??? Smoking status: Never Smoker ??? Smokeless tobacco: Never Used Substance and Sexual Activity ??? Alcohol use: No ??? Drug use: No ??? Sexual activity: Defer Lifestyle ??? Physical activity Days per week: None Minutes per session: None ??? Stress: None Relationships ??? Social connections Talks on phone: None Gets together: None Attends religion service: None Active member of club or organization: None Attends meetings of clubs or organizations: None Relationship status: None ??? Intimate partner violence Fear of current or ex partner: None Emotionally abused: None Physically abused: None Forced sexual activity: None Other Topics Concern ??? None Social History Narrative ??? None REVIEW OF SYSTEMS On complete review of systems, pertinent positive/negative as mentioned in HPI. PHYSICAL EXAM Vitals: 06/27/19 1117 BP: 100/64 Patient Position: Sitting Pulse: 84 Resp: 16 Height: 167.8 cm Weight: 87 kg General: No acute distress. Eyes: Anicteric Sclera, no proptosis. ENT: Mucous membranes moist and pink. Extremities: Warm, well perfused. Neuro: Alert and oriented x 3, grossly intact. LABORATORY/DIAGNOSTICS 06/27/2019 09:46 TSH, Sensitive, P 2.0 T4 (Thyroxine), Free, P 1.9 (H) Labs from [facility] 02/10/17 DHEA: 374 ug/dL (N [id number]) Glucose: [...] A1c, B 4.8 ASSESSMENT/PLAN # Deric Thyroiditis She is on Levothyroxine 88 mcg daily, TSH normal at 2 mIU/mL- Palpitations resolved. She reports more fatigue and significant hair loss, will increase Levothyroxine dose slightly (Levothyroxine 88 mcg daily except 2 tab on Sundays) and see if any improvement on her symptoms with TSH at 1 ranged however I also explained that symptoms might not be thyroid related. Will repeat thyroid tests in 2 mo. She has mild elevation on Free T4 levels - probably has assay issue- Had normal Free T4 via dialysis before. # PCOS # Obesity # Migraines She used ot be on Micronor- recently discontinued, had spontaneous period. She is also on Spironolactone and Metformin. She had weight gain since last visit. No concerns for acne and hirsutism at this time. Now that she is off Micronor- advised reliable contraception use - as she is on Spironolactone (exolained teratogenic effects). Will continue with same management for now. Follow up in 6 mo. I discussed above in details with the patient, all questions were addressed, she showed understanding and agreed with plan. ?? FIRE OPERATOR documented in this encounter Plan of Treatment Upcoming Encounters Date Type Specialty Care Team Description 04/22/2022 Appointment Laboratory Medicine Meryl Julio M.D. [address] [place], [place] [address] (Hector martin) 04/29/2022 Office Visit Endocrinology Meryl Julio M .D. [facility] [place], [place] [address] (Hector martin) Scheduled Referrals Name Type Priority Associated Order Schedule Diagnoses Endocrinology office Outpatient Referral Routine Expected: visit (clinic) 12/26/2019 (Approximate), Expires: 06/27/2022 documented as of this encounter Results T3 (Triiodothyronine), Total (12/17/2019 11:54 AM CDT) athologist Signature T3 121 80 - 200 12/19/2019 [facility] (Triiodothyroni ng/dL 8:51 AM CDT ne), Total, S Specimen Anatomical Collection Method Collection Time Receive d Time (Source) Location / / Volume Laterality Blood (Blood, 12/17/2019 11:54 12/19/2019 7:38 Venous) AM CDT AM CDT Jalil Parikh M.D. LAB BLOOD ADD-ON Performing Organization Address City/State/ZIP Code Phon e Number [facility] [address] [place] [address] [facility] [place] [address] Laboratory Medicine and Pathology [address] [...] supplements. ??If the result does not ma tc clinical observations, repeat testing after patient refrains fr om the use of supplements for at least 12 hours. Specimen Anatomical Collection Method Collection Time Receive d Time (Source) Location / / Volume Laterality Blood (Blood, 12/17/2019 11:54 12/17/2019 Venous) AM CDT 11:57 AM CDT Jalil Parikh M.D. LAB BLOOD ADD-ON Performing Organization Address City/[facility] Phon e Number [place] [phone] [address] [facility] [place] [phone] (ABNORMAL) S-TSH (Thyroid-Stimulating Hormone - Sensitive) [...] supplements. ??If the result does not ma tc clinical observations, repeat testing after patient refrains fr om the use of supplements for at least 12 hours. Specimen Anatomical Collection Method Collection Time Receive d Time (Source) Location / / Volume Laterality Blood (Blood, 12/17/2019 11:54 12/17/2019 Venous) AM CDT 11:57 AM CDT Jalil Parikh M.D. LAB BLOOD ADD-ON Performing Organization Address [facility] Phon e Number [place] [phone] [address] [facility] [place] [phone] documented in this encounter Visit Diagnoses Diagnosis Thyroiditis Deric's - Primary Polycystic Ovary Syndrome Migraine Headache Obesity Body Mass Index 30-39.9 Adult documented in this encounter Care Teams Noise Tester Relationship Specialty Start Date End Date Audrey Burleson M.D. PCP - General Family Medicine 02/04/18 01/14/21 [address] [place] [address] documented as of this encounter
--- OUTSIDE RECORDS SUMMARY | 2022-03-06 07:07 | XMS_ITS | Encounter Summary ---
:1995 Author Organization [facility] Address [address] [place] [address] Care Team Providers Name Role Phone Audrey Burleson M.D. Primary Care Provider [phone] Reason for Visit Reason Comments Med Refill Encounter Details Date Type Department Care Team Description 07/08/2019 Refill Department of Otorhinolaryngology Nadeen Dee, Med [facility] [place] [address] [facility] [address] [place] [address] [place], [place] [phone] [address] (Wo rk) Social History Tobacco Use Types [...] or relatives? How often do you attend buddhist or catholic More than 4 time s per year 06/21/2021 services? 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 [facility] [place], [place] [address] (Wo rk) 04/29/2022 Office Visit Endocrinology Meryl Julio M .D. [address] [place] [address] (Wo rk) documented as of this encounter Visit Diagnoses Not on filedocumented in this encounter Care Teams Animal Sticker Relationship Specialty Start Date End Date Audrey Burleson M.D. PCP - General Family Medicine 02/04/18 01/14/21 [address] [place] [address] documented as of this encounter
--- OUTSIDE RECORDS SUMMARY | 2022-03-06 07:07 | XMS_ITS | Encounter Summary ---
:1995 Author Organization [facility] Address [address] [place] [address] Care Team Providers Name Role Phone Audrey Burleson M.D. Primary Care Provider [phone] Encounter Details Date Type Department Care Team Description 06/27/2019 Hospital Encounter Department of [place], Thyroidi tis Laboratory Medicine, [facility], in [address] [address] Social History Tobacco Use Types [...] How often do you attend yarsanism or alevism More than 4 time s per year [...] to pay for the very basics like [employer] [place] [employer] hat hard 06/21/2021 food, housing, medical care, [...] Date Recorded Female 06/21/2021 12:52 PM MANAGER CLIENT documented as of this encounter Medications at Time of Discharge Medication Sig Dispensed Refills Start Date End Date doxycycline monohydrate Take 1 tablet (100 56 tablet 0 11/201906/28/2019 (ADOXA) 100 mg tablet mg total) by mouth 2 (two) times a day for 28 days. sennosides-docusate Take 1 tablet by 20 tablet 0 [...] Appointment Laboratory Medicine Meryl Julio M.D. [address] [place] [address] (Hector martin) 04/29/2022 Office Visit Endocrinology Meryl Julio M .D. [address] [place] [address] (Hector martin) documented as of this encounter Procedures Procedure Name Priority Date/Time Associated Diagnosis Comme nts THYROID-STIMULATING Routine 06/27/2019 9:46 AM Thyroiditis Re sults for this HORMONE-SENSITIVE MANAGER CLIENT Deric's procedure are in (S-TSH) the results section. T4 (THYROXINE), Routine 06/27/2019 9:46 AM Thyroiditis Result s for this FREE, S MANAGER CLIENT Deric's procedure are i n the results section. documented in this encounter Results (ABNORMAL) T4 (Thyroxine), Free (06/27/2019 9:46 AM MANAGER CLIENT) P athologist Signature T4 1.9 (H) 0.9 - 1.7 06/27/2019 MKTO (Thyroxine), ng/dL 10:22 AM MANAGER CLIENT Free, P Comment: Biotin has been identified [...] Location / / Volume Laterality Blood (Blood, 06/27/2019 9:46 AM 06/27/19 9:51 Venous) MANAGER CLIENT AM MANAGER CLIENT Jalil Parikh M.D. LAB BLOOD ADD-ON Performing Organization Address [facility] Phon e Number [facility]- [address] [place] [phone] [facility] [place] [address] [facility] in [address] S-TSH (Thyroid-Stimulating Hormone - Sensitive) (06/27/2019 9:46 AM MANAGER CLIENT) P athologist Signature TSH, Sensitive 2.0 0.3 - 4.2 06/27/2019 MKTO mIU/L 10:22 AM MANAGER CLIENT Comment: Biotin has been identified by the [...] Location / / Volume Laterality Blood (Blood, 06/27/2019 9:46 AM 06/27/19 9:51 Venous) MANAGER CLIENT AM MANAGER CLIENT Jalil Parikh M.D. LAB BLOOD ADD-ON Performing Organization Address City/[facility] Phon e Number [facility]- [address] [place] [phone] [facility] [place] [address] System in [address] documented in this encounter Visit Diagnoses Diagnosis Thyroiditis Deric's documented in this encounter Care Teams Spareribs Trimmer Relationship Specialty Start Date End Date Audrey Burleson M.D. PCP - General Family Medicine 02/04/18 01/14/21 [address] [facility] [place] [address] documented as of this encounter
--- OUTSIDE RECORDS SUMMARY | 2022-03-06 07:07 | XMS_ITS | Encounter Summary ---
:1995 Author Organization [facility] Address [address] [place] [address] Care Team Providers Name Role Phone Audrey Burleson M.D. Primary Care Provider [phone] Reason for Referral Outpatient (Routine) - Closed Specialty Diagnoses / Procedures Referred By Contact Refer red To Contact Endocrinology Jalil Parikh M.D. [address] [address] Referral ID Status Reason Start Date Expiration Date Visits Requ ested Visits Authorized [id number] Closed 01/04/2019 01/04/2020 1 1 Encounter Details Date Type Department Care Team Description 01/04/2019 Orders Only Department of Endocrinology in [place] Parikh M.D. [address] [address] Social History Tobacco Use Types Packs/Day [...] or relatives? How often do you attend sikhism or nondenominational More than 4 time s per year 06/21/2021 services? Do you belong to any clubs or organizations Yes 06/21/2021 such as sikhism groups, unions, fraternal or athletic groups, or [...] at Date Recorded Female 06/21/2021 12:52 PM INTERNATIONAL MARKETING SPECIALIST documented as of this encounter Plan of Treatment Upcoming Encounters Date Type Specialty Care Team Description 04/22/2022 Appointment Laboratory Medicine Meryl Julio M.D. [address] [place], [place] [address] (Wo rk) 04/29/2022 Office Visit Endocrinology Meryl Julio M .D. [address] [place], [place] [address] (Wo rk) Scheduled Referrals Name Type Priority Associated Order Schedule Diagnoses Endocrinology office Outpatient Referral Routine Expected: visit (clinic) 07/07/2019 (Approximate), Expires: 01/04/2022 documented as of this encounter Visit Diagnoses Not on filedocumented in this encounter Care Teams Manager Salt Relationship Specialty Start Date End Date Audrey Burleson M.D. PCP - General Family Medicine 02/04/18 01/14/21 [address] [place] [address] documented as of this encounter
--- OUTSIDE RECORDS SUMMARY | 2022-03-06 07:07 | XMS_ITS | Encounter Summary ---
:1995 Author Organization [facility] Address [address] [place] [address] Care Team Providers Name Role Phone Audrey Burleson M.D. Primary Care Provider [phone] Reason for Referral Outpatient (Routine) - Closed Specialty Diagnoses / Procedures Referred By Contact Refer red To Contact Endocrinology Jalil Parikh M.D. [address] [address] Referral ID Status Reason Start Date Expiration Date Visits Requ ested Visits Authorized [id number] Closed 01/31/2020 01/30/2021 1 1 Reason for Visit Reason Comments Deric's Thyroiditis Polycystic Ovary Syndrome Outpatient (Routine) - Closed Specialty Diagnoses / Procedures Referred By Contact Refer naomy To Contact Endocrinology Jalil Parikh M.D. [address] [address] Referral ID Status Reason Start Date Expiration Date Visits Requ ested Visits Authorized [id number] Closed 06/27/2019 06/26/2020 1 1 Encounter Details Date Type Department Care Team Description 01/31/2020 Office Visit Department of Jalil Parikh, Thyroiditis Deric's (Primary Dx); Endocrinology in [place] Polycystic Ovary Syndrome; [place], [place] Migraine Headache; [address] Obesity Body Mass Index 30-3 9.9 [place] [address] Social History Tobacco Use Types Packs/Day [...] How often do you attend anabaptism or restorationist More than 4 time s [...] at Date Recorded Female 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 - 01/31/2020 11:30 AM CDT Patient Name: Felecia Cardenas [facility] [phone] Date of : 1995 CHIEF COMPLAINT PCOS, hypothyroidism HISTORY OF PRESENT ILLNESS Felecia Cardenas is a 24 y.o. female with history of sleep apnea, obesity is presenting for follow up regarding PCOS and hypothyroidism. She used to be on Micronor- discontinued in 05/2019, have spontaneous since then. She was on Sprintecbefore- was reporting migraine headaches with it. She is on Spironolactone- no concerns with acne orexcess hair at this time. She gets chronic sinusitis- on Doxycycline. She takes Metformin 1000 mg BID- tolerating well. Her weight is stable. At last visit levothyroxine dose was adjusted and she started to have periods every 2 weeks, TSH was suppressed at that time. After changing levothyroxine dose to 88 mcg daily this got better, now having monthly period. 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 Otherwise does not report any symptoms with hypothyroidism. She denies palpitations. She is on Propranolol for migraines. She gets diarrhea with Carb rich food, she had improvement of symptoms with gluten free diet, celiacscreening negative. ?? Current Outpatient Medications: ??? levothyroxine (SYNTHROID, LEVOTHROID) 88 mcg tablet, TAKE 1 TABLET BY MOUTH EVERY MORNING BEFOREBREAKFAST, Disp: 30 tablet, Rfl: 5 ??? metFORMIN XR (GLUCOPHAGE-XR) 500 mg 24 hr tablet, TAKE 2 TABLETS BY MOUTH TWICE A DAY, Disp: 120tablet, Rfl: 7 ??? propranoloL (INDERAL LA) 80 mg 24 hr capsule, Take 1 capsule (80 mg total) by mouth 2 (two) times a day., Disp: 60 capsule, Rfl: 0 ??? rizatriptan (MAXALT) 10 mg tablet, May repeat in 2 hours if unresolved. Do not exceed 30 mg in 24 hours. (Patient taking differently: every 2 (two) hours as needed. May repeat in 2 hours if unresolved. Do not exceed 30 mg in 24 hours. ), Disp: 15 tablet, Rfl: 1 ??? spironolactone (ALDACTONE) 50 mg tablet, TAKE 1 TABLET BY MOUTH TWICE A DAY, Disp: 60 tablet, Rfl: 5 ??? SUMAtriptan (IMITREX) 100 mg tablet, Take [...] 10 mg tablet, , Disp: , Rfl: Allergies [...] turbinate reduction; Surgeon: Nisa Kahn M.D.; Location: [facility] OR ??? OTHER CONVERTED SHX [...] on phone: None Gets together: None Attends restorationist service: None Active member of club or [...] as mentioned in HPI. PHYSICAL EXAM Vitals: 01/31/20 1110 BP: 100/60 Pulse: 68 Resp: 16 Height: 168 cm Weight: 87.2 kg General: No acute distress. Eyes: Anicteric Sclera, no proptosis. ENT: Mucous membranes moist and pink. Neuro: Alert and oriented x 3, grossly intact. LABORATORY/DIAGNOSTICS 12/17/2019 11:54 TSH, Sensitive, P <0.03 (L) T4 (Thyroxine), Free, P 2.1 (H) T3 (Triiodothyronine), Total, S 121 ASSESSMENT/PLAN # Deric Thyroiditis At previous visit she reported several hypothyroid symptoms, levothyroxine dose was adjusted howeverTSH was suppressed afterwards per labs from 12/17/2019. She is now back on levothyroxine 88 mcg daily, feeling well, reports fatigue otherwise no other hypothyroid symptoms. She has repeat labs on February, will follow-up on that. # PCOS # Obesity # Migraines She used ot be on OCP- however having spontaneous periods since she discontinued Micronor on May2019. She had frequent periods while having suppressed TSH, after dose adjustment however her periods is monthly again. She is also on Spironolactone and Metformin. No concerns for acne and hirsutism at this time. Her weight is stable. Will continue with same management for now. Follow up in 6 mo. I discussed above in details with the patient, all questions were addressed, she showed understanding and agreed with plan. ?? documented in this encounter Plan of Treatment Upcoming Encounters Date Type Specialty Care Team Description 04/22/2022 Appointment Laboratory Medicine Meryl Julio M.D. [address] [place] [address] (Wo rk) 04/29/2022 Office Visit Endocrinology Meryl Julio M .D. [address] [place] [address] (Wo rk) Scheduled Referrals Name Type Priority Associated Order Schedule Diagnoses Endocrinology office Outpatient Referral Routine Expected: visit (clinic) 07/30/2020 (Approximate), Expires: 01/30/2023 documented as of this encounter Results Basic Metabolic Panel (08/14/2020 [...] CDT eGFR-Black/Afric >90 >=60 08/14/2020 MKTO an Congolese mL/min/BSA 3:36 PM CDT Comment: ----ADDITIONAL INFORMATION---- [...] Organization Address City/State/ZIP Code Phon e Number [facility]- [address] [place] [address] [place] [address] [address] (ABNORMAL) T4 (Thyroxine), Free (08/14/2020 2:32 PM CDT) athologist Signature T4 1.9 (H) 0.9 - 1.7 08/14/2020 MKTO (Thyroxine), ng/dL 3:36 PM CDT Free, P Comment: Biotin has been identified by the landen lopes as a potential interfering substance. ??Higher concentr ations of biotin may be found in multivitamins, hair/nail supple ments, and workout supplements. ??If the result does not ma [facility] clinical observations, repeat testing after patient refrains fr om the use of supplements for at least 12 hours. Specimen Anatomical Collection Method Collection Time Receive d Time (Source) Location / / Volume Laterality Blood (Blood, 08/14/2020 2:32 PM 08/15/19 2:41 Venous) CDT PM CDT Jalil Parikh M.D. LAB BLOOD ADD-ON Performing Organization Address City/[facility]/ZIP Code Phon e Number [facility]- [address] [place] [address] [place] [address] S-TSH (Thyroid-Stimulating Hormone - Sensitive) (08/14/2020 2:32 PM CDT) P athologist Signature TSH, Sensitive 1.7 0.3 - 4.2 08/14/2020 MKTO mIU/L 3:36 PM CDT Specimen Anatomical Collection Method Collection Time Receive d Time (Source) Location / / Volume Laterality Blood (Blood, 08/14/2020 2:32 PM 08/15/19 2:41 Venous) CDT PM CDT Jalil Parikh M.D. LAB BLOOD ADD-ON Performing Organization Address City/[facility]/ZIP Code Phon e Number [facility]- [address] [place] [address] [place] [address] documented in this encounter Visit Diagnoses Diagnosis Thyroiditis Deric's - Primary Polycystic Ovary Syndrome Migraine Headache Obesity Body Mass Index 30-39.9 Adult documented in this encounter Care Teams Supervisor Cytogenetic Laboratory Relationship Specialty Start Date End Date Audrey Burleson M.D. PCP - General Family Medicine 02/04/18 01/14/[address] [place] [phone] documented as of this encounter
--- OUTSIDE RECORDS SUMMARY | 2022-03-06 07:07 | XMS_ITS | Encounter Summary ---
:1995 Author Organization [facility] Address [address] [place] [address] Care Team Providers Name Role Phone Audrey Burleson M.D. Primary Care Provider [phone] Reason for Referral Outpatient (Routine) - Closed Specialty Diagnoses / Procedures Referred By Contact Refer red To Contact Neurology Diagnoses Migraine Headache Scottie Savage M.D. [facility] [address] [place] [phone] Referral ID Status Reason Start Date Expiration Date Visits Requ ested Visits Authorized [id number] Closed 01/24/2020 01/23/2021 1 1 Scheduling Instructions Zora 02/14 at 3:45 Reason for Visit Reason Comments Communication med refill Encounter Details Date Type Department Care Team Description 01/23/2020 Clinical Department of Scottie Savage (med Communication Neurology eliana Steward M.D. refill ) [address] [place] [phone] [place], [place] [phone] (Work) [phone] Social History Tobacco Use Types Packs/Day Years [...] or relatives? How often do you attend holiness or taoism More than 4 time s per year 06/21/2021 services? 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 - 01/25/2020 8:48 AM CDT Addended by: MATTIE EARL on: 01/25/2020 08:48 AM Modules accepted: Orders Telephone Encounter - Mattie Earl R.N. - 01/25/2020 8:47 AM CDT Pt states she is only taking propranolol 80 mg BID, Rx updated. Telephone Encounter - Mattie Earl RSebastianN. - 01/24/2020 10:11 AM CDT LV 12/17/18 w/ Dr. Savage Will refill meds up to appt. Telephone Encounter - Allison Amezquita - 01/23/2020 3:50 PM CDT Please do not reply to sender,emails are not monitored. Thank you. If you need a prescription refill please call your pharmacy. Please allow 3 business days for processing. Expert RN: N/A (Med Refill Only) Call Center Template: ??? May we leave a message for you on this phone? yes What can I help you with today? Patient needs a refill. She says the medication is working well. Please give her a call when sent. Thanks. ??? If Medication Refill: o What is the name and strength of the medication? Propranolol XR 80mg caps o What do you use the medication for? o How many pills do you have left? A couple day's worth o What pharmacy do you use (include location)? [facility] [place] I will send this information to the appropriate staff member who will look into your concern. Is there anything else I can help you with today? Thank you for calling [facility]. documented in this encounter Plan of Treatment Upcoming Encounters Date Type Specialty Care Team Description 04/22/2022 Appointment Laboratory Medicine Meryl Julio M.D. [address] [place], [place] [address] (Hector martin) 04/29/2022 Office Visit Endocrinology Meryl Julio M .D. [address] [place], [place] [address] (Hector martin) Scheduled Referrals Name Type Priority Associated Diagnoses Order S [facility] Neurology office Outpatient Referral Routine Migraine Headache Expected: visit (clinic) 01/24/2020 (Approximate), Expires: 01/23/2023 documented as of this encounter Visit Diagnoses Diagnosis Migraine Headache - Primary documented in this encounter Care Teams Acetylene Operator Relationship Specialty Start Date End Date Audrey Burleson M.D. PCP - General Family Medicine 02/04/18 01/14/21 [facility] [address] [place] [phone] documented as of this encounter
--- OUTSIDE RECORDS SUMMARY | 2022-03-06 07:07 | XMS_ITS | Encounter Summary ---
:1995 Author Organization [facility] Address [address] [place] [address] Care Team Providers Name Role Phone Audrey Burleson M.D. Primary Care Provider [phone] Reason for Referral MRI/CAT/PET Scan (Routine) - Closed Specialty Diagnoses / Procedures Referred By Contact Refer red To Contact Radiology Diagnoses Headache Unspecified Scottie Savage M.D. [facility] Region Procedures MR Brain without and with IV Contrast [place] MRI BRAIN WO/W CNTRST HC MRI BRAIN WO/W CNTRST [address] [place] [address] Referral ID Status Reason Start Date Expiration Date Visits Requ ested Visits Authorized [id number] Closed 12/17/2018 12/17/2019 1 1 Reason for Visit MRI/CAT/PET Scan (Routine) - Closed Specialty Diagnoses / Procedures Referred By Contact Refer red To Contact Radiology Diagnoses Headache Unspecified Scottie Savage M.D. [facility] Region Procedures MR Brain without and with IV Contrast WA MRI BRAIN WO/W CNTRST HC MRI BRAIN WO/W CNTRST [address] [place] [phone] Referral ID Status Reason Start Date Expiration Date Visits Requ ested Visits Authorized [id number] Closed 12/17/2018 12/17/2019 1 1 Encounter Details Date Type Department Care Team Description 12/22/2018 Hospital Encounter Department of Scottie Savage, Headache Radiology, [facility], in [place], [facility] [address] [place], [place] [address] [facility] [phone] [place], [place] [phone] (Wo rk) [address] [phone] Social History Tobacco Use Types Packs/Day Years [...] or relatives? How often do you attend zoroastrianism or latter day More than 4 time s per year 06/21/2021 services? 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 metFORMIN XR (GLUCOPHAGE 0 09/08/2017 01/04/2019 XR) 500 mg 24 hr tablet metFORMIN XR TAKE 2 TABLETS BY 120 tablet 11 02/12/201801/04 (GLUCOPHAGE-XR) 500 mg MOUTH TWICE A DAY 24 hr tablet norethindrone (MICRONOR) Take 1 tablet (0.35 84 tablet 3 01/04/2019 0.35 mg mg total) by mouth tabletIndications: daily. Polycystic Ovary Syndrome norethindrone (MICRONOR) 0 09/06/2017 01/04/2019 0.35 mg tablet norethindrone (MICRONOR) 0 09/06/2017 01/04/2019 0.35 mg tablet oxyCODONE (OXY-IR) 5 mg Take 1 capsule (5 mg 10 capsule 0 01/04/2019 immediate release total) by mouth capsuleIndications: every 6 (six) hours Prolonged Acute as needed for pain Pain/Traumatic Injury Indication: Prolonged Acute Pain/Traumatic Injury. predniSONE (DELTASONE) 0 11/16/2018 10 mg tablet predniSONE (DELTASONE) Take 1 tablet (20 mg 5 tablet 0 01/04/2019 20 mg tablet total) by mouth daily. predniSONE (DELTASONE) Take 1 tablet (20 mg 5 tablet 0 01/04/2019 20 mg tablet total) by mouth daily. propranolol (INDERAL LA) 1 cap a day for one 62 capsule 11 01/24/2020 80 mg 24 hr capsule week, then 2 caps a day rizatriptan (MAXALT) 10 May repeat in 2 15 tablet 1 018 02/15/2020 mg tablet hours if unresolved. Do not exceed 30 mg in 24 hours. spironolactone Take 1 tablet (50 mg 180 tablet 3 08/24/2018 01/04/2019 (ALDACTONE) 50 mg total) by mouth 2 tabletIndications: (two) times a day. Polycystic Ovary Syndrome spironolactone 0 09/02/2017 01/04/2019 (ALDACTONE) 50 mg tablet SUMAtriptan (IMITREX) Take 1 tab at onset 9 tablet 11 12/1702/15/2020 100 mg tablet of migraine, may repeat after 2 hours; do not exceed 200 mg daily. Limit to two days per week. documented as of this encounter Plan of Treatment Upcoming Encounters Date Type Specialty Care Team Description 04/22/2022 Appointment Laboratory Medicine Meryl Julio M.D. [address] [place] [address] (Hector martin) 04/29/2022 Office Visit Endocrinology Meryl Julio M .D. [address] [place] [address] (Hector martin) documented as of this encounter Procedures Procedure Name Priority Date/Time Associated Comments Diagnosis MR BRAIN WITHOUT RAD - Routine 12/22/2018 4:58 Headache Results for this AND WITH IV (most inpatients PM CDT procedure a re in CONTRAST and all the results outpatients) section. documented in this encounter Results MR Brain without and with IV Contrast (12/22/2018 4:58 PM CDT) Anatomical Region Laterality Modality Head, Brain, Neuroradiology RST LOS, Neuroradiology ARZ N/A Magnetic Resonance LOS, Neuroradiology FLA LOS Specimen (Source) Anatomical Collection Method Collection Time Re ceived Time Location / / Volume Laterality 12/22/2018 5:19 PM CDT Impressions 12/22/2018 5:32 PM CDT No acute intracranial abnormality, mass/mass effect or pathologic postcontrast enhancement. Normal examination of the I ACs. Narrative 12/22/2018 5:32 PM CDT EXAM: MR BRAIN WITHOUT AND WITH IV CONTRAST COMPARISON: CT head and neck angiogram o f 08/04/2018. CT temporal bone imaging of May 13, 2018. CT sinus study of 09/22 reviewed FINDINGS: The ventricles and sulci are n ormal in size and configuration. There is no restricted diffusion or acut e intracranial abnormality. No abnormal extra-axial fluid collection, mass/mass effect or evidence of hemorrhage. No pathologic postcontrast enhancement iden tified. The brainstem, posterior fossa and cervi shivam medullary junction are preserved. Dedicated imaging through the internal a uditory canals demonstrates no abnormal signal, mass or pathologic postcontrast enhancement. Normal intracranial intravascular flow v oids are seen. The orbits, periorbital and paracavernou s spaces are normal. There is right maxillary sinus mucosal thickening as se en by prior comparison. No air-fluid level. Remaining paranasal sinuses and m astoids have a normal appearance. No abnormality of the skull base or calv arium is identified. Procedure Note Juaquin Dawkins M.D. - 12/22/2018Forma tting of this note might be different from the original. EXAM: MR BRAIN WITHOUT AND WITH IV CONTR AST COMPARISON: CT head and neck angiogram o f 08/04/2018. CT temporal bone imaging of May 13, 2018. CT sinus study of 09/22 reviewed FINDINGS: The ventricles and sulci are n ormal in size and configuration. There is no restricted diffusion or acut e intracranial abnormality. No abnormal extra-axial fluid collection, mass/mass effect or evidence of hemorrhage. No pathologic postcontrast enhancement iden tified. The brainstem, posterior fossa and cervi shivam medullary junction are preserved. Dedicated imaging through the internal a uditory canals demonstrates no abnormal signal, mass or pathologic postcontrast enhancement. Normal intracranial intravascular flow v oids are seen. The orbits, periorbital and paracavernou s spaces are normal. There is right maxillary sinus mucosal thickening as se en by prior comparison. No air-fluid level. Remaining paranasal sinuses and m astoids have a normal appearance. No abnormality of the skull base or calv arium is identified. IMPRESSION: No acute intracranial abnormality, mass/ mass effect or pathologic postcontrast enhancement. Normal examination of the I ACs. Scottie SRIVASTAVA MRI PROCEDURES documented in this encounter Visit Diagnoses Diagnosis Headache Unspecified documented in this encounter Administered Medications Inactive Administered Medications - up to 3 most recent administrations Medication Order MAR Action Action Date Dose Rate Site gadobutrol injection Given 12/22/2018 4:41 PM 9 mL Right Antecubital 0.01-30 mL (GADAVIST) CDT 0.01-30 mL, intravenous, Once in imaging, contrast, Starting on Thu12/22/18 at 1640, For 1 dose, Imaging Protocol Orders, Dose per Radiant Medication Guidelines documented in this encounter Care Teams Toll Ticket Clerk Relationship Specialty Start Date End Date Audrey Burleson M.D. PCP - General Family Medicine 02/04/18 01/14/21 [facility] [address] [place] [phone] documented as of this encounter
--- OUTSIDE RECORDS SUMMARY | 2022-03-06 07:07 | XMS_ITS | Encounter Summary ---
:1995 Author Organization [facility] Address [address] [place] [address] Care Team Providers Name Role Phone Audrey Burleson M.D. Primary Care Provider [phone] Reason for Visit Reason Comments Med Refill Encounter Details Date Type Department Care Team Description 05/07/2019 Refill Department of Endocrinology in [place] Parikh M.D. 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 [address] [place], [place] [address] (Wo rk) 04/29/2022 Office Visit Endocrinology Meryl Julio M .D. [address] [place], [place] [address] (Wo rk) documented as of this encounter Visit Diagnoses Diagnosis Polycystic Ovary Syndrome documented in this encounter Care Teams Stock Worker Relationship Specialty Start Date End Date Audrey Burleson M.D. PCP - General Family Medicine 02/04/18 01/14/21 [address] [place] [phone] documented as of this encounter
--- OUTSIDE RECORDS SUMMARY | 2022-03-06 07:07 | XMS_ITS | Encounter Summary ---
:[address] [facility] Address [address] [place] [address] Care Team Providers Name Role Phone Audrey Burleson M.D. Primary Care Provider [phone] Reason for Visit Reason Comments Bladder Infection Encounter Details Date Type Department Care Team Description 01/04/2019 Office Visit Express Care in Paula Yadav, Dysuria (P rimary Dx) [place], [place] BARBARA, C.N.P., [address] [place] [address] [phone] [place] [phone] Social History Tobacco Use Types Packs/Day Years [...] or relatives? How often do you attend jainism or jehovah's witness More than 4 time s per year 06/21/2021 services? Do you belong to any clubs or organizations Yes 06/21/2021 such as jainism groups, unions, fraternal or athletic groups, or [...] place to sleep or slept in a penitentiary (including now)? 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 - 01/04/2019 11:15 AM CDT SUBJECTIVE CHIEF COMPLAINT / REASON FOR VISIT Felecia Cardenas is a 23 y.o. female who presents for evaluation of Bladder Infection. HISTORY OF PRESENT ILLNESS Has had symptoms for 2 weeks of urgency with urination. No frequency, no dysuria. Denies vaginal symptoms. Taking food and fluids without difficulty. Occasional UTI in the past but none recent, persistent or recurrent. OBJECTIVE PHYSICAL EXAM Patient is alert, well-hydrated, in no apparent distress. Afebrile, VSS. No CVA tenderness. No abdominal discomfort or suprapubic pain noted. ASSESSMENT / PLAN Urinalysis negative for leukocytes, nitrites, or blood. Discussed could be vaginal or other cause and to follow-up at Primary Care, Urgent Care or ER for any ongoing or persisting symptoms. Patient was in agreement and understanding with the plan of care and denied any further concerns at this time. documented in this encounter Plan of Treatment Upcoming Encounters Date Type Specialty Care Team Description 04/22/2022 Appointment Laboratory Medicine Meryl Julio M.D. [address] [place] [address] (Wo rk) 04/29/2022 Office Visit Endocrinology Meryl Julio M .D. [address] [place] [address] (Wo rk) Scheduled Orders Name Type Priority Associated Diagnoses Order S chedule Dipstick, POCT, Point of Care Routine Dysuria Ordered: Urine (nursing, Testing-Docked interfaced) Device documented as of this encounter Procedures Procedure Name Priority Date/Time Associated Diagnosis Comme nts URINALYSIS, Routine 01/04/2019 11:20 AM Results for this DIPSTICK CDT procedure are i n the results section. documented in this encounter Results (ABNORMAL) Urinalysis, Dipstick (01/04/2019 11:20 AM CDT) Analysis Performed At Patho logist Time Signature Source MIDSTREAM 01/04/2019 11:20 AM CDT Clarity Slightly Clear 01/04/2019 Cloudy (A) 11:20 AM CDT Color Michelle 01/04/2019 11:20 AM CDT Comment: ----REFERENCE VALUE---- Colorless Yellow Michelle Blood Negative Negative 01/04/2019 11:20 AM CDT Nitrite Negative Negative 01/04/2019 11:20 AM CDT Leukocyte Esterase Negative Negative 01/04/2019 11:20 AM C DT Protein 30 (A) mg/dL 01/04/2019 11:20 AM CDT Comment: ----REFERENCE VALUE---- Negative Trace Glucose Negative Negative mg/dL 01/04/2019 11:20 AM CDT Ketones, QI(U) Trace (A) Negative mg/dL 01/04/2019 11:20 AM CDT Bilirubin Negative Negative 01/04/2019 11:20 AM CDT pH 5.5 5.0 - 8.0 01/04/2019 11:20 AM CDT Specific [place] >=1.030 1.001 - 1.035 01/04/2019 11:20 AM CDT Urobilinogen 0.2 0.2 - 1.0 mg/dL 01/04/2019 11:20 AM C DT Specimen Anatomical Collection Method Collection Time Receive d Time (Source) Location / / Volume Laterality Urine 01/04/2019 11:20 01/04/2019 AM CDT 11:24 AM CDT Generic Rals LAB URINE ORDERABLES Performing Organization Address City/State/ZIP Code Phon e Number [facility] [address] [place] [address] [facility] documented in this encounter Visit Diagnoses Diagnosis Dysuria - Primary documented in this encounter Care Teams Marine Specialist Relationship Specialty Start Date End Date Audrey Burleson M.D. PCP - General Family Medicine 02/04/18 01/14/[address] [place] [address] [phone] documented as of this encounter
--- OUTSIDE RECORDS SUMMARY | 2022-03-06 07:07 | XMS_ITS | Encounter Summary ---
:1995 Author Organization [facility] Address [address] [place] [address] Care Team Providers Name Role Phone Audrey Burleson M.D. Primary Care Provider [phone] Reason for Visit Reason Comments Med Refill Encounter Details Date Type Department Care Team Description 01/23/2020 Refill Department of Endocrinology in [place] Parikh M.D. Med Refill [address] [phone] Social History Tobacco Use Types Packs/Day [...] or relatives? How often do you attend gnosticist or adventism More than 4 time s per year 06/21/2021 services? 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 [address] [place], [place] [address] (Wo rk) 04/29/2022 Office Visit Endocrinology Meryl Julio M .D. [address] [place], [place] [address] (Wo rk) documented as of this encounter Visit Diagnoses Diagnosis Polycystic Ovary Syndrome documented in this encounter Care Teams Historic Interpreter Relationship Specialty Start Date End Date Audrey Burleson M.D. PCP - General Family Medicine 02/04/18 01/14/21 [address] [place] [phone] documented as of this encounter
--- OUTSIDE RECORDS SUMMARY | 2022-03-06 07:07 | XMS_ITS | Encounter Summary ---
:1995 Author Organization [facility] Address [address] [place] [address] Care Team Providers Name Role Phone Audrey Burleson M.D. 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 [address] [place] [address] (Wo rk) 04/29/2022 Office Visit Endocrinology Meryl Julio M .D. [address] [place] [address] (Wo rk) documented as of this encounter Results (ABNORMAL) T4 (Thyroxine), Free (06/27/2019 9:46 AM AIR DEODORIZER SERVICER) P athologist Signature T4 1.9 (H) 0.9 - 1.7 06/27/2019 MKTO (Thyroxine), ng/dL 10:22 AM AIR DEODORIZER SERVICER Free, P Comment: Biotin has been identified [...] (Blood, 06/27/2019 9:46 AM 06/27/19 9:51 Venous) AIR DEODORIZER SERVICER AM AIR DEODORIZER SERVICER Jalil Parikh M.D. LAB BLOOD ADD-ON Performing Organization Address City/State/ZIP Code Phon e Number [facility]- [address] [place] [phone] [place] [address] S-TSH (Thyroid-Stimulating Hormone - Sensitive) (06/27/2019 9:46 AM AIR DEODORIZER SERVICER) athologist Signature TSH, Sensitive 2.0 0.3 - 4.2 06/27/2019 TAYLOR mIU/L 10:22 AM AIR DEODORIZER SERVICER Comment: Biotin has been identified by the [...] (Blood, 06/27/2019 9:46 AM 06/27/19 9:51 Venous) AIR DEODORIZER SERVICER AM AIR DEODORIZER SERVICER Jalil Parikh M.D. LAB BLOOD ADD-ON Performing Organization Address City/State/ZIP Code Phon e Number [facility]- [address] [place] [phone] [place] [address] [address] documented in this encounter Visit Diagnoses Diagnosis Thyroiditis Deric's - Primary documented in this encounter Care Teams Field Artillery Targeting Technician Relationship Specialty Start Date End Date Audrey Burleson M.D. PCP - General Family Medicine 02/04/18 01/14/21 [address] [place] [phone] documented as of this encounter
--- OUTSIDE RECORDS SUMMARY | 2022-03-06 07:07 | XMS_ITS | Encounter Summary ---
:1995 Author Organization [facility] Address [address] [place] [address] Care Team Providers Name Role Phone Audrey Burleson M.D. Primary Care Provider [phone] Reason for Referral MRI/CAT/PET Scan (Routine) - Closed Specialty Diagnoses / Procedures Referred By Contact Refer red To Contact Radiology Diagnoses Sinusitis Chronic Maxillary Deviation Nasal Septal Nadeen Dee [facility] Procedures CT Sinuses without IV Contrast Willy Paula [address] [place] [phone] Referral ID Status Reason Start Date Expiration Date Visits Requ ested Visits Authorized [id number] Closed 01/07/2019 01/07/2020 1 1 Reason for Visit Reason Comments Follow-up nasal debridements, the nathan ent is having some sinus pressure, the patient also states that she has bee n feleing very tired, the patient states that her right lymph node has bee n swollen Outpatient (Routine) - Closed Specialty Diagnoses / Procedures Referred By Contact Refer red To Contact Otorhinolaryngology Nadeen Dee [facility] Willy Paula [facility] [place] [address] Referral ID Status Reason Start Date Expiration Date Visits Requ ested Visits Authorized [id number] Closed 12/14/2018 12/14/2019 1 1 Encounter Details Date Type Department Care Team Description 01/07/2019 Office Visit Department of Nadeen Jacobs Sinusitis Floor Worker Transfer [place] ruth Maxillary (Primary Dx); Otorhinol[facility]ology in [facility] Nasal Septal; [place], [place] Willy Paula Pulsatile Tinnitus Left Ear [address] [facility] [address] [place] [address] [place], [place] [phone] Social History Tobacco Use Types Packs/Day [...] How often do you attend yarsanism or anabaptism More than 4 time s per year [...] at Date Recorded Female 06/21/2021 12: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 - 01/07/2019 3:45 PM CDT ENT POSTOPERATIVE/PROCEDURE VISIT SUBJECTIVE CHIEF COMPLAINT/REASON FOR VISIT Status post right-sided??FESS??and septoplasty. HISTORY OF PRESENT ILLNESS Felecia Cardenas is a 23 y.o. female who presents for follow up after septoplasty, bilateral inferior turbinate reduction and outfracture, and right maxillary antrostomy on 10/08/2018.?Recall that patient had silent sinus syndrome for which she underwent the sinus part of the procedure. She denies any vision issues. ??She denies any signs and symptoms consistent with meningitis or CSF rhinorrhea. ?? She reports some mild dental tenderness in the last week as well as midface pressure and pain on both sides with the left side being worse than her right. She particularly has ongoing left-sided frontal pain. She reports that she continues to perform her daily budesonide sinus irrigations. She denies any purulent nasal drainage however reports clear thick sticky mucus that is intermittent. She reports that she does have ongoing intermittent left-sided pulsatile tinnitus for which she was recently seen and evaluated by Neurology. Past medical history/surgical history/family history/social history, medications and allergies reviewed and are unchanged per initial visit note. REVIEW OF SYSTEMS Please see HPI; otherwise rest of ROS performed and were negative. OBJECTIVE VITAL SIGNS BP 112/70 (BP Location: Right arm, Patient Position: Sitting, Cuff Size: Small) Pulse 110 Temp 36.8 ??C (Temporal) Wt 84.1 kg BMI 28.43 kg/m?? PHYSICAL EXAMINATION General: Alert and oriented, [...] a 50:50 mixture. After an appropriate interval, a??0 and then a 30??degree endoscope was introduced into the right side [...] palate. The scope was then withdrawn. The 0??degree endoscope was introduced into the left side [...] curved suction into the right maxillary sinus. ASSESSMENT / PLAN #1 Sinusitis Chronic Maxillary [...] recommended however patient tells me that she is unable to do this due to her school and work schedule. ??She did tell me that Dr. Stanton recommended a steroid nasal spray daily??as well as use of an oral antihistamine PRN??and I have asked patient to follow his recommendations. Patient continues to have chronic facial pain and pressure with the left non operated side being worse than her right. She does have a history of chronic migraines and was recently seen and evaluated by neurology. Given the ongoing facial pain and pressure we will proceed with CT sinus imaging for further evaluation however I do believe that her symptoms related more to her chronic migraines rather than sinus issues. #3 Pulsatile Tinnitus Left Ear Patient has ongoing intermittent left-sided pulsatile tinnitus.??She has had a temporal bone CT scanthat was unremarkable as well as a CT angiogram of her head and neck that was noted to be negative. Patient has also had an audiogram that showed normal hearing. She was recently seen and evaluated by Neurology for this and MRI??brain was obtained and noted to be unremarkable. I discussed with patient that we will call her with CT sinus scan results. Follow-up will be determined based on results. 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 Patient verbalized understanding of our plan. Patient's [...] Appointment Laboratory Medicine Meryl Julio M.D. [address] [place], [place] [address] (Wo rk) 04/29/2022 Office Visit Endocrinology Meryl Julio M .D. [address] [place], [place] [address] (Wo rk) documented as of this encounter Results CT Sinuses without IV Contrast (01/07/2019 4:48 PM CDT) Anatomical Region Laterality Modality Head, Neuroradiology RST LOS, [facility], N/A Computed Tomography Neuroradiology [facility] Specimen (Source) Anatomical Collection Method Collection Time [...] Ear Sinusitis Chronic Maxillary Deviation Nasal Septal documented in this encounter Care Teams Collar Worker Relationship Specialty Start Date End Date Audrey Burleson M.D. PCP - General Family Medicine 02/04/18 01/14/21 [address] [place] [phone] documented as of this encounter
--- OUTSIDE RECORDS SUMMARY | 2022-03-06 07:08 | XMS_ITS | Encounter Summary ---
:1995 Author Organization [facility] Address [address] [place] [address] Care Team Providers Name Role Phone Audrey Burleson M.D. Primary Care Provider [phone] Encounter Details Date Type Department Care Team Description 10/05/2018 Ancillary Procedure Department of Otorhinolaryngology Social History Tobacco Use Types Packs/Day Years Used Date Smoking Tobacco: Never Smokeless Tobacco: Never Alcohol Use Standard Drinks/Week Comments No 0 (1 standard drink = 0.6 oz pure alcoho l) occ Alcohol Habits Answer Date Recorded How often do you have a drink containing alcohol? Never 06/21/2021 How many drinks containing alcohol do you have on a typical Not asked day when you are drinking? How often do you have six or more drinks on one occasion? No t asked Comment: occ 08/06/2017 Social Isolation Answer Date Recorded In a typical week, how many times do you Once a week 06/21/2021 talk on the phone with family, friends, or neighbors? How often do you get together with friends Once a week 06/21/2021 or relatives? 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 [address] [place], [place] [address] (Wo rk) 04/29/2022 Office Visit Endocrinology Meryl Julio M .D. [address] [place], [place] [address] (Wo rk) documented as of this encounter Procedures Procedure Name Priority Date/Time Associated Comments Diagnosis OTORHINOLARYNGOLOGY IMAGE Routine 10/05/2018 8:00 Results for this EXAM AM CDT procedure are i n the results section. documented in this encounter Results Non-Radiology Image-Otorhinolaryngology Image Exam (10/05/2018 8:00 AM CDT) Specimen (Source) Anatomical Collection Method Collection Time Re ceived Time Location / / Volume Laterality 10/05/2018 7:58 AM CDT Narrative [facility] - 10/05/2018 9:47 AM CDT This order has been created and [...] on filedocumented in this encounter Care Teams Leather Stretcher Relationship Specialty Start Date End Date Audrey Burleson M.D. PCP - General Family Medicine 02/04/18 01/14/[address] [place] [phone] documented as of this encounter
--- OUTSIDE RECORDS SUMMARY | 2022-03-06 07:08 | XMS_ITS | Encounter Summary ---
:1995 Author Organization [facility] Address [address] [place] [address] Care Team Providers Name Role Phone Audrey Burleson M.D. Primary Care Provider [phone] Reason for Visit Reason Comments Results Encounter Details Date Type Department Care Team Description 10/11/2018 Clinical Communication Department of [facility] Maxim[facility] [address] [facility] [address] [place] [address] [place], [place] [phone] Social History Tobacco Use Types Packs/Day [...] How often do you attend christianity or restorationism More than 4 time s [...] at Date Recorded Female 06/21/2021 12:52 PM WEAVING INSPECTOR documented as of this encounter Miscellaneous Notes Telephone Encounter - Alvino Stanton M.D. - 10/11/2018 6:37 PM CDT I spoke with the patient on the phone about lab results from 10/04/2018. No evidence of immune deficiency, with normal quantitative immunoglobulins. Also no evidence of allergic fungal sinusitis, with normal IgE and no detectable IgE to Aspergillus or Curvularia. She had sinus surgery last Thursday for silent sinus syndrome, and is recovering. She plans to follow-up with ENT. She is still a candidate for allergy shots if she is still interested after the surgical part has been taking care of. documented in this encounter Plan of Treatment Upcoming Encounters Date Type Specialty Care Team Description 04/22/2022 Appointment Laboratory Medicine Meryl Julio M.D. [employer] [place], [place] [address] (Hector martin) 04/29/2022 Office Visit Endocrinology Meryl Julio M .D. [address] [place], [place] [address] (Hector martin) documented as of this encounter Visit Diagnoses Not on filedocumented in this encounter Care Teams Research Electrician Relationship Specialty Start Date End Date Audrey Burleson M.D. PCP - General Family Medicine 02/04/18 01/14/21 [address] [facility] [place] [phone] documented as of this encounter
--- OUTSIDE RECORDS SUMMARY | 2022-03-06 07:08 | XMS_ITS | Encounter Summary ---
:1995 Author Organization [facility] Address [address] [place] [address] Care Team Providers Name Role Phone Audrey Burleson M.D. 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 Telephone Encounter - Tana De Anda - 10/28/2018 10:24 AM CDT Patient called ENT planner/scheduler wanting to cancel her consult with Dr. 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 Should would like to reschedule. Please review and advise. documented in this encounter Plan of Treatment Upcoming Encounters Date Type Specialty Care Team Description 04/22/2022 Appointment Laboratory Medicine Meryl Julio M.D. [address] [place] [address] (Hector martin) 04/29/2022 Office Visit Endocrinology Meryl Julio M .D. [address] [place] [address] (Hector martin) documented as of this encounter Visit Diagnoses Not on filedocumented in this encounter Care Teams Sand Buffer Relationship Specialty Start Date End Date Audrey Burleson M.D. PCP - General Family Medicine 02/04/18 01/14/21 [address] [place] [phone] documented as of this encounter
--- OUTSIDE RECORDS SUMMARY | 2022-03-06 07:08 | XMS_ITS | Encounter Summary ---
:1995 Author Organization [facility] Address [address] [place] [address] Care Team Providers Name Role Phone Audrey Burleson M.D. Primary Care Provider [phone] Reason for Referral Outpatient (Routine) - Closed Specialty Diagnoses / Procedures Referred By Contact Refer red To Contact Otorhinolaryngology [facility] David Paula M.D. [address] [place] [phone] Referral ID Status Reason Start Date Expiration Date Visits Requ ested Visits Authorized [id number] Closed 10/14/2018 10/14/2019 1 1 Scheduling Instructions 2 week follow up for nasal debridement Reason for Visit Reason Comments Post-op the patient states that she has toruble sleeping at night, the patient states that if she lightly bumps he r nose it will start to bleed the right side of the nose is all blood and bl ood clotts. Outpatient (Routine) - Closed Specialty Diagnoses / Procedures Referred By Contact Dorota moralez To Contact Otorhinolaryngology JALIL Kahn [facility] David Paula M.D. [address] [place] [phone] Referral ID Status Reason Start Date Expiration Date Visits Requ ested Visits Authorized [id number] Closed 10/05/2018 10/05/2019 1 1 Encounter Details Date Type Department Care Team Description 10/14/2018 Office Visit Department of Nadeen Jacobs Sinusitis Marketing Communications Leader ruth Maxillary (Primary Dx); Otorhinolaryngology in [place] t[place] Nasal Septal [place], [place] Willy Paula [address] [facility] 10[address] [place] [address] [place], [place] [phone] Social History Tobacco Use Types Packs/Day Years [...] How often do you attend uatsdin or buddhism More than 4 time s [...] at Date Recorded Female 06/21/2021 12:52 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 - 10/14/2018 8:45 AM CDT SUBJECTIVE CHIEF COMPLAINT/REASON FOR VISIT Status post right-sided FESS and septoplasty. HISTORY OF PRESENT ILLNESS Felecia Cardenas is a 23 y.o. female who presents for follow up after patient underwent septoplasty, bilateral inferior turbinate reduction and outfracture, and right maxillary antrostomy on 10/08/2018. Recall that patient had silent sinus syndrome for which she underwent the sinus part of the procedure. Reports some ongoing nasal bleeding after surgery as well as pain and pressure. She denies anypurulent nasal drainage. She denies any vision issues. She denies any signs and symptoms consistent with meningitis or CSF rhinorrhea. She reports significant improvement in her left pulsatile tinnitus. The past medical history, medications, allergies, review of systems, family history, and social history were reviewed and are otherwise unchanged from the last Otolaryngology visit. Please see the pastotolaryngology records for further history and physical exam details, if interested.?? REVIEW OF SYSTEMS Please see HPI; otherwise rest of ROS performed and were negative. OBJECTIVE VITAL SIGNS Temp 36.2 ??C (Temporal) PHYSICAL EXAMINATION General: Alert and oriented, No acute distress. Head and Face: Normocephalic, atraumatic. Face symmetrical, no weakness. Skin: No scars, lesions on the scalp face or neck. Eyes: Conjunctivae are clear without injection or icterus. EOMI. No nystagmus. Ears: External ears normal. Nose: External nose normal, splints were taken off, see procedure below for further details. Psychiatric: Alert and oriented x3, affect normal and mood. Neuro: CN II-XII grossly intact. Respiratory: Unlabored breathing, no stertor or stridor. Good voice quality. PROCEDURE: Nasal Endoscopy: Verbal consent obtained and universal protocol followed. In order to evaluate structures that could not adequately be assessed by anterior rhinoscopy, rigid nasal endoscopy was performed as a separate identifiable procedure. The nasal passages and the nasopharynx were anesthetized with a topical application of Afrin and 4% lidocaine in a 50:50 mixture. After an appropriate interval, a 0 degree endoscope was introduced into the right side [...] scope was then withdrawn. The 0 degree endoscope was introduced into the left side [...] and the patient tolerated the procedure well. Specific findings: The septum is midline and intact with no evidence of septal hematoma or perforation. Old clot in nasopharynx was suctioned out. On the right side patient noted to have some packing and crusting at the site of the right maxillary antrostomy that was suctioned out. ASSESSMENT / PLAN #1 Sinusitis Chronic Maxillary #2 Deviation Nasal Septal Ms. Cardenas a 23-year-old female that presented to me with right-sided chronic maxillary sinusitis that was consistent with silent sinus syndrome as well as deviated septum. Patient underwent right-sided maxillary antrostomy, septoplasty, and bilateral inferior turbinate reduction and outfracture on . Overall patient is doing well. She does not have a history of asthma, nasal polyposis, or sensitivity to aspirin or ibuprofen. She has been seen and evaluated by Dr. Stanton in Allergy and noted to have multiple environmental allergies for which immunotherapy was recommended however patient tells me that she is unable to do this due to her school and work schedule. She did tell me that Dr. Stanton recommended a steroid nasal spray daily as well as use of an oral antihistamine PRN and I have asked patient to follow his recommendations. I have asked her to continue her daily sinus irrigations. I will plan to see her back in two weeks. I discussed with patient that if her left pulsatile tinnitus does not resolve we will need to consider MRI brain imaging. Patient's questions were solicited and answered. This note was completed with voice recognition software. Please excuse typographic errors. documented in this encounter Plan of Treatment Upcoming Encounters Date Type Specialty Care Team Description 04/22/2022 Appointment Laboratory Medicine Meryl Julio M.D. [address] [place], [place] [address] (Wo rk) 04/29/2022 Office Visit Endocrinology Meryl Julio M .D. [address] [place], [place] [address] (Wo rk) Scheduled Referrals Name Type Priority Associated Order Schedule Diagnoses Otorhinolaryngology office Outpatient Routine E xpected: visit (clinic) Referral 10/28/2018, Expires: 10/14/2021 documented as of this encounter Visit Diagnoses Diagnosis Sinusitis Chronic Maxillary - Primary Deviation Nasal Septal documented in this encounter Care Teams Equipment Technician Relationship Specialty Start Date End Date Adurey Burleson M.D. PCP - General Family Medicine 02/04/18 01/14/21 [address] [place] [phone] documented as of this encounter
--- OUTSIDE RECORDS SUMMARY | 2022-03-06 07:08 | XMS_ITS | Encounter Summary ---
:1995 Author Organization [facility] Address [address] [place] [address] Care Team Providers Name Role Phone Audrey Burleson M.D. Primary Care Provider [phone] Reason for Visit Reason Comments Thrush Encounter Details Date Type Department Care Team Description 11/18/2018 Office Visit Express Care in Brandi Rodriguez Candidias is Oral [place], [place] PHP WORDPRESS DEVELOPER, C.N.P. (Primary Dx) [address] [phone] [address] [place] [phone] [place] [address] Social History Tobacco Use Types Packs/Day [...] or relatives? How often do you attend orthodoxy or oriental orthodox More than 4 time s per year 06/21/2021 services? 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 - 11/18/2018 4:15 PM CDT SUBJECTIVE CHIEF COMPLAINT / REASON FOR VISIT Thrush HISTORY OF PRESENT ILLNESS Felecia Cardenas is a 23 y.o. female who presents for evaluation of a sore mouth and possible thrush. She states she has been on Augmentin for quite some time due to a sinus infection and then having sinus surgery. She is to start another medication after she finishes the Augmentin. She is quite certain that she has a vaginal yeast infection but has found the [id number] medications to be helpful for this. For the past few days she has noticed significant discomfort in her mouth however and she states that it hurts to even swallow. She denies a sore throat stating that it is more her tongueand the sides of her cheeks that are painful. She has noted some white patches at times but they are not always present. Brief Review of Systems: A brief review of systems was negative except for that mentioned in the history of present of illness. The patient's social history, medical history, and home medications were reviewed in the electronic medical record. Allergies Allergen Reactions ??? Clindamycin Anaphylaxis ??? Gentamicin Anaphylaxis ??? Ciprofloxacin Anaphylaxis OBJECTIVE PHYSICAL EXAM BP 120/82 Pulse 100 Temp 36.8 ??C SpO2 98% GENERAL: This patient is alert and in no acute distress. HEENT: Conjunctivae clear without hemorrhages or exudates. Oral cavity is adequately hydrated. Posterior pharynx is mildly erythematous. Tongue does have some white patches that are difficult to scrape off. Some erythema is noted to the side of the tongue. No white patches are noted along posterior pharynx or inside of cheeks. NECK: Supple without lymphadenopathy. MUSCULOSKELETAL: Grossly intact, no deformities are noted. SKIN: Normal color, temperature and moisture, no rashes or lesions are noted. ASSESSMENT / PLAN #1 Candidiasis Oral Other orders - nystatin (MYCOSTATIN) 100,000 unit/mL suspension; Swish and swallow 5 mL (500,000 Units total) 4 (four) times a day for 14 days., Starting Zoey 11/18/2018, Until Zoey 12/02/2018, Normal Medication side effects were discussed. Drink plenty of fluids. Get plenty of rest. Concerning symptoms to watch for were discussed. If new or concerning symptoms develop, seek medical attention. Patient verbalizes understanding and acceptance of this plan of care and denies any further needs orquestions at this time. Brandi Rodriguez APRN, C.N.P. documented in this encounter Plan of Treatment Upcoming Encounters Date Type Specialty Care Team Description 04/22/2022 Appointment Laboratory Medicine Meryl Julio M.D. [address] [place] [address] (Wo rk) 04/29/2022 Office Visit Endocrinology Meryl Julio M .D. [address] [place] [address] (Wo rk) documented as of this encounter Visit Diagnoses Diagnosis Candidiasis Oral - Primary documented in this encounter Care Teams Stove Mechanic Relationship Specialty Start Date End Date Audrey Burleson M.D. PCP - General Family Medicine 02/04/18 01/14/21 [address] [place] [phone] documented as of this encounter
--- OUTSIDE RECORDS SUMMARY | 2022-03-06 07:08 | XMS_ITS | Encounter Summary ---
:1995 Author Organization [facility] Address [address] [place] [address] Care Team Providers Name Role Phone Audrey Burleson M.D. Primary Care Provider [phone] Reason for Visit Reason Onset Date Comments Communication 10/11/2018 trouble sleeping/lola n Encounter Details Date Type Department Care Team Description 10/11/2018 Clinical Department of Nadeen Jacobs Communication Communication Otorhinolaryngology in [facility], sleeping/pain ) [address] 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 - 10/11/2018 9:[address] Dee recommended two oxycodone at night as needed. Reminded to use rinses and spray and ibuprofen and tylenol. Pt is using those as recommended. Pt will touch base if not able to sleep tonight or if pain is out of control and will see Dr. Dee back sooner if needed. Telephone Encounter - Sheryl Arriaga - 10/11/2018 8:31 AM CDT Please do not reply to sender,emails are not monitored. Thank you. If you need a prescription refill please call your pharmacy. Please allow 3 business days for processing. Expert RN: N/A (Med Refill Only) Call Center Template: ??? May we leave a message for you on this phone? yes What can I help you with today? Patient calling to speak to Dr. Dee's nurse. She states she had surgery last Thursday and has not slept since then. She states the pain is significantly worse at night, and Oxycodone doesn't help. She states today is the first day the bleeding has stopped, otherwise every day has been a slow trickle of blood. She is wondering if she can take 2 Oxycodone before bed, or if there is something else she could getso she can sleep. Please call, OK to leave detailed message. Thank you. I will send this information to the appropriate staff member who will look into your concern. Is there anything else I can help you with today? Thank you for calling [facility]. documented in this encounter Plan of Treatment Upcoming Encounters Date Type Specialty Care Team Description 04/22/2022 Appointment Laboratory Medicine Meryl Julio M.D. [address] [place], [place] [address] (Wo rk) 04/29/2022 Office Visit Endocrinology Meryl Julio M .D. [address] [place], [place] [address] (Wo rk) documented as of this encounter Visit Diagnoses Not on filedocumented in this encounter Care Teams Metal Dresser Relationship Specialty Start Date End Date Audrey Burleson M.D. PCP - General Family Medicine 02/04/18 01/14/21 [address] [place] [phone] documented as of this encounter
--- OUTSIDE RECORDS SUMMARY | 2022-03-06 07:08 | XMS_ITS | Encounter Summary ---
:1995 Author Organization [facility] Address [address] [place] [address] Care Team Providers Name Role Phone Audrey Burleson M.D. Primary Care Provider [phone] Encounter Details Date Type Department Care Team Description 11/12/2018 Ancillary Procedure Department of Otorhinolaryngology Social History [...] How often do you attend yarsani or baptist More than 4 time s per year [...] at Date Recorded Female 06/21/2021 12:52 PM ROVING MARKER documented as of this encounter Plan of Treatment Upcoming Encounters Date Type Specialty Care Team Description 04/22/2022 Appointment Laboratory Medicine Meryl Julio M.D. [address] [place], [place] [address] (Wo rk) 04/29/2022 Office Visit Endocrinology Meryl Julio M .D. [address] [place], [place] [address] (Wo rk) documented as of this encounter Procedures Procedure Name Priority Date/Time Associated Comments Diagnosis OTORHINOLARYNGOLOGY IMAGE Routine 11/12/2018 2:50 Results for this EXAM AM CDT procedure are i n the results section. documented in this encounter Results Non-Radiology Image-Otorhinolaryngology Image Exam (11/12/2018 2:50 AM CDT) Specimen (Source) Anatomical Location Collection Method / Collectio n Time Received Time / Laterality Volume Narrative IIMS - 11/12/2018 3:17 PM CDT This order has been created [...] on filedocumented in this encounter Care Teams Hand Bobbin Cleaner Relationship Specialty Start Date End Date Audrey Burleson M.D. PCP - General Family Medicine 02/04/18 01/14/21 [address] [place] [address] documented as of this encounter
--- OUTSIDE RECORDS SUMMARY | 2022-03-06 07:08 | XMS_ITS | Encounter Summary ---
:1995 Author Organization [facility] Address [address] [place] [address] Care Team Providers Name Role Phone Audrey Burleson M.D. Primary Care Provider [phone] Encounter Details Date Type Department Care Team Description 11/17/2018 Clinical Department of Ji Loera Otorhinolaryngology in [place], [place] R.N. [address] [facility] 1025 [place] [address] [place], [place] [phone] Social History Tobacco Use Types Packs/Day [...] How often do you attend pentecostal or judaism More than 4 time s [...] or slept in a alf (including now)? Sex Assigned at Date Recorded Female 06/21/2021 12:52 PM NECKTIE TURNER documented as of this encounter Miscellaneous Notes Telephone Encounter - Mile Loera R.N. - 11/18/2018 9:41 AM CDT Patient notified. Telephone Encounter - Nisa Kahn M.D. - 11/17/2018 4:34 PM CDT Sure as long as she feels like things are improving I am fine with this. If she feels like things are not improving or if things are worsening that I would want to see her back sooner. Telephone Encounter - Mile Loera R.N. - 11/17/2018 4:16 PM CDT Voicemail message from patient (attempted to reach her back but was unsuccessful)- patient is requesting to finish her antibiotic course and start the saline/steroid rinses and then see Dr. Dee after that time. 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 Would this be acceptable? documented in this encounter Plan of Treatment Upcoming Encounters Date Type Specialty Care Team Description 04/22/2022 Appointment Laboratory Medicine Meryl Julio M.D. [address] [place], [place] [address] (Wo rk) 04/29/2022 Office Visit Endocrinology Meryl Julio M .D. [address] [place], [place] [address] (Wo rk) documented as of this encounter Visit Diagnoses Not on filedocumented in this encounter Care Teams Deputy Sheriff Custody Relationship Specialty Start Date End Date Audrey Burleson M.D. PCP - General Family Medicine 02/04/18 01/14/[address] [place] [phone] documented as of this encounter
--- OUTSIDE RECORDS SUMMARY | 2022-03-06 07:08 | XMS_ITS | Encounter Summary ---
:1995 Author Organization [facility] Address [address] [place] [address] Care Team Providers Name Role Phone Audrey Burleson M.D. Primary Care Provider [phone] Reason for Visit Reason Comments Med Refill Encounter Details Date Type Department Care Team Description 11/02/[facility]en Dee, Med Refill [address] [facility] 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 [address] [place] [address] (Wo rk) 04/29/2022 Office Visit Endocrinology Meryl Julio M .D. [address] [place] [address] (Wo rk) documented as of this encounter Visit Diagnoses Not on filedocumented in this encounter Care Teams Officer Lieutenant Relationship Specialty Start Date End Date Audrey Burleson M.D. PCP - General Family Medicine 02/04/18 01/14/21 [address] [place] [phone] documented as of this encounter
--- OUTSIDE RECORDS SUMMARY | 2022-03-06 07:08 | XMS_ITS | Encounter Summary ---
:1995 Author Organization [facility] Address [address] [place] [address] Care Team Providers Name Role Phone Audrey Burleson M.D. Primary Care Provider [phone] Encounter Details Date Type Department Care Team Description 11/04/2018 Ancillary Procedure Department of Otorhinolaryngology Social History [...] How often do you attend orthodoxy or congregation More than 4 time s [...] at Date Recorded Female 06/21/2021 12:52 PM FERMENTER CHAMPAGNE documented as of this encounter Plan of Treatment Upcoming Encounters Date Type Specialty Care Team Description 04/22/2022 Appointment Laboratory Medicine Meryl Julio M.D. [address] [place], [place] [address] (Wo rk) 04/29/2022 Office Visit Endocrinology Meryl Julio M .D. [address] [place], [place] [address] (Wo rk) documented as of this encounter Procedures Procedure Name Priority Date/Time Associated Comments Diagnosis OTORHINOLARYNGOLOGY IMAGE Routine 11/04/2018 3:00 Results for this EXAM AM CDT procedure are i n the results section. documented in this encounter Results Non-Radiology Image-Otorhinolaryngology Image Exam (11/04/2018 3:00 AM CDT) Specimen (Source) Anatomical Location Collection Method / Collectio n Time Received Time / Laterality Volume Narrative IIMS - 11/04/2018 4:03 PM CDT This order has been created [...] on filedocumented in this encounter Care Teams Cattle Rancher Relationship Specialty Start Date End Date Audrey Burleson M.D. PCP - General Family Medicine 02/04/18 01/14/21 [address] [place] [address] documented as of this encounter
--- OUTSIDE RECORDS SUMMARY | 2022-03-06 07:08 | XMS_ITS | Encounter Summary ---
:1995 Author Organization [facility] Address [address] [place] [address] Care Team Providers Name Role Phone Audrey Burleson M.D. Primary Care Provider [phone] Reason for Visit Auth/Cert Specialty Diagnoses / Procedures Referred By Contact Refer red To Contact Diagnoses Sinusitis Chronic Maxillary Deviation Nasal Septal Procedures NJ NASAL ENDOSCOPY DX UNI/BILAT NJ ENDO/PLYPECT NOSE W CNTRL HEMR NJ ENDO NSAL DACRYOCSTORHINOSTOMY NJ ENDO NSL/SNS W CONCH RSECT NJ ENDO NSL/SNS W ETHMDCTOMY TOTL NJ ENDO NSL W FRNTL SINUS EXPLOR NJ ENDO NSL W DIL MXLRY SINUS NJ ENDO NSL W DIL FRNTL SINU S NJ ENDO NSL W DIL SPHND SINUS NJ SUBMUC RSECT TURB PRTL/COMPLT NJ SEPTO/SUBM RESEC W/WO CART GRFT FUNCTIONAL ENDOSCOPY SINUS SURGERY WITH NAVIGATION Referral ID Status Reason Start Date Expiration Date Visits Requ ested Visits Authorized [id number] 1 1 Encounter Details Date Type Department Care Team Description 10/08/2018 Hospital Encounter [facility] Nadeen Jacobs Sinusitis Chronic Maxillary; [address] [facility] Luiz, Deviation Nasal Septal KHRIS CORREA M.D. [id number] [facility] [phone] [place] [id number] Social History Tobacco Use Types Packs/Day [...] or relatives? How often do you attend latter-day or moravian More than 4 time s per year 06/21/2021 services? Do you belong to any clubs or organizations Yes 06/21/2021 such as latter-day groups, unions, fraternal or athletic groups, or [...] place to sleep or slept in a half-way (including now)? 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 - 10/08/2018 4:09 PM CDT Images from the original note were not included. Anesthesia Discharge Instructions Adult - Outpatient After sedation After you have been sedated, it is common to have lapses of memory, slowed reaction time and impaired judgment. Arrange for someone to accompany you to and from your appointment and drive you home. Youmay need this person to help you at home as well. ?? Rest. ?? Do not drive or operate motorized vehicles or equipment. ?? Do not return to work or school. ?? Do not take on responsibility for children or anyone who depends on your care. ?? Do not use exercise equipment or take part in rough play or sports. ?? Do not drink alcoholic beverages. Medication Do not take any medications that are unknown to your surgeon. If your pain is not controlled, notifyyour surgeon. In addition, because you were given: ?? General anesthesia..you may experience: A sore throat that may last a few days. Generalized body soreness for a few days. ?? Spinal anesthesia..notify your physician if you: Have a severe headache (if headache is mild, increase fluids you drink) Notice any residual weakness or numbness Develop severe back pain ?? Monitored anesthesia care (MAC) with local..you may have: Numbness in the affected area. Until the numbness wears off, you will not be able to feel heat, cold, or pressure like normal. Protect the extremity from these sensations. Notify your physician if you have numbness or tingling that lasts longer than 24 hours. ?? IV regional block anesthesia with MAC..you may have: Numbness or tingling in the ???blocked or deadened?? area may last up to 24 hours. Until the numbness wears off, you will not be able to feel heat, cold, or pressure like normal. Protect the extremityfrom these sensations. Notify your physician if you have numbness or tingling that lasts longer than24 hours. ?? Upper extremity block/lower extremity block..you may have: Numbness or tingling in the ???blocked or deadened?? area may last up to 24 hours. Until the numbness wears off, you will not be able to feel heat, cold, or pressure like normal. Protect the extremityfrom these sensations. Notify your physician if you have numbness or tingling of your affected extremity that lasts longer than 24 hours. This material is for your education and information only. This content does not replace medical advice, diagnosis or treatment. New medical research may change this information. If you have questions about a medical condition, always talk with your health care provider. documented in this encounter Medications at Time of Discharge Medication Sig Dispensed Refills Start Date End Date levothyroxine Take 1 tablet (88 90 tablet 3 04/23/201812/23 (SYNTHROID, LEVOTHROID) mcg total) by mouth 88 mcg tablet every morning before breakfast. metFORMIN XR TAKE 2 TABLETS BY 120 tablet 11 02/12/201801/04 (GLUCOPHAGE-XR) 500 mg MOUTH TWICE A DAY 24 hr tablet norethindrone (MICRONOR) Take 1 tablet (0.35 84 tablet 3 01/04/2019 0.35 mg mg total) by mouth tabletIndications: daily. Polycystic Ovary Syndrome predniSONE (DELTASONE) Take 1 tablet (20 mg 5 tablet 0 01/04/2019 20 mg tablet total) by mouth daily. spironolactone Take 1 tablet (50 mg 180 tablet 3 08/24/2018 01/04/2019 (ALDACTONE) 50 mg total) by mouth 2 tabletIndications: (two) times a day. Polycystic Ovary Syndrome amoxicillin-pot Take 1 tablet by 10 tablet 0 10/08/2018 clavulanate (AUGMENTIN) mouth every 12 875-125 mg per tablet (twelve) hours for 5 days. oxymetazoline (AFRIN) Administer 2 sprays 15 mL 0 10/0810/11/2018 0.05 % nasal spray into each nostril 2 (two) times a day for 3 days. sennosides-docusate Take 1 tablet by 20 [...] Mite, Rhinitis Allergic Due To Outdoor Pollen metFORMIN XR (GLUCOPHAGE 0 09/08/2017 01/04/2019 XR) 500 mg 24 hr tablet norethindrone (MICRONOR) 0 09/06/2017 01/04/2019 0.35 mg tablet norethindrone (MICRONOR) 0 09/06/2017 01/04/2019 0.35 mg tablet oxyCODONE (OXY-IR) 5 mg Take 1 capsule (5 mg 25 capsule 0 10/14/2018 immediate release total) by mouth capsuleIndications: every 4 (four) hours Prolonged Acute as needed for pain Pain/Traumatic Injury Indication: Prolonged Acute Pain/Traumatic Injury. propranolol (INDERAL) 40 Take 40 mg by mouth 0 12/17/2018 mg tablet as needed. rizatriptan (MAXALT) 10 May repeat in 2 15 tablet 1 018 02/15/2020 mg tablet hours if unresolved. Do not exceed 30 mg in 24 hours. spironolactone 0 09/02/2017 01/04/2019 (ALDACTONE) 50 mg tablet documented as of this encounter H&P Notes Nisa Kahn M.D. - 10/08/2018 11:53 AM CDT INTERVAL HISTORY AND PHYSICAL PRE-PROCEDURE UPDATE H&P reviewed. The patient was examined and there are no significant changes to the H&P. Nisa Dee M.D. Source Note - Nisa Kahn M.D. - 10/05/2018 8:30 AM CDT SUBJECTIVE CHIEF COMPLAINT/REASON FOR VISIT Chronic sinusitis and left ear pulsatile tinnitus HISTORY OF PRESENT ILLNESS Felecia Cardenas is a 23 y.o. female who presents for follow up for above concerns. I am seeing patient today for the first time. Patient has been seen previously and evaluated by Reema Olivas. She reports that since February of last year she has had ongoing nasal congestion and facial pressure. She reports that her symptoms are significantly worse on the right side than the left. She also reports pain in her right upper dentition. She also reports ongoing anterior nasal drainage and postnasal dripthat is purulent in nature. Patient interestingly reports that her left pulsatile tinnitus is positional however the symptoms began with her sinus issues and improved on courses of antibiotics. She hasno other otologic symptoms. She reports that for her sinus infection she has been on multiple courses of antibiotics with no improvement in her symptoms. She was recently evaluated by Dr. Stanton in Allergy and was noted to have multiple allergies. Patient denies a history of asthma, nasal polyposis,or prior nasal surgeries. The past medical history, medications, allergies, review of systems, family history, and social history were reviewed and are otherwise unchanged from the last Otolaryngology visit. Please see the pastotolaryngology records for further history and physical exam details, if interested.?? REVIEW OF SYSTEMS Please see HPI; otherwise rest of ROS performed and were negative. OBJECTIVE VITAL SIGNS BP 116/86 (BP Location: Right arm, Patient Position: Sitting, Cuff Size: Regular) Pulse 86 Temp 36.6 ??C (Temporal) Wt 85.3 kg BMI 29.45 kg/m?? PHYSICAL EXAMINATION General: Alert and oriented, No acute distress. Head and Face: Normocephalic, atraumatic. Face with mild asymmetry with hypoplasia of the right mid face and mild asymmetry in globe position, no facial weakness. Parotids and submandibular glands normal. Skin: No scars, lesions on the scalp face or neck. Eyes: Conjunctivae are clear without injection or icterus. EOMI. No nystagmus. Ears: External ears normal, canals patent. Bilateral tympanic membranes and middle ear spaces were clear without effusions, erythema or perforations. Nose: External nose normal, anterior rhinoscopy shows normal mucosa, septum and inferior turbinates.Septum deviated to the right. See procedure below for further details. Oral cavity/oropharynx: No trismus, adequate dentition. No lesions or masses of the lips, gingiva, buccal mucosa, hard and soft palate, uvula, floor of mouth, oral tongue, tongue base, or tonsillar fossae. Neck: Symmetrically soft and supple, no masses. Trachea midline. Thyroid: No thyromegaly. Lymphadenopathy: No adenopathy noted in neck or supraclavicular area. Psychiatric: Alert and oriented x3, affect normal [...] 50:50 mixture. After an appropriate interval, a flexible endoscope was introduced into the right side [...] the procedure well. Specific findings: The septum was deviated to the right. Inferior turbinates were congested bilaterally. Due to right-sided septal deviation unable to visualized the right middle meatus. Left middle meatus free of secretions or polyps. No purulent drainage was noted. The nasopharynx was free of lesions or drainage. DIAGNOSTICS AUDIOGRAM: Audiogram from 05/11/2018 was independently reviewed. Patient has normal hearing in both ears from 250 to 8000 Hz. The word understanding was excellent with 100% in both ears. Tympanometry was performed and showed a type As tympanogram in both ears. IMAGING: Images were independently reviewed. CT temporal bone from 05/13/2018 was noted to be normal. CT headand neck angiogram from 08/04/2018 was noted to be normal except for incidental finding of right maxillary sinus disease. ASSESSMENT / PLAN #1 Sinusitis Chronic Maxillary #2 Deviation Nasal Septal Ms. Cardenas is a 23-year-old female who is presenting to me with a right-sided chronic maxillary sinusitis. I have gone over imaging findings with patient and I have discussed with her that I am concerned that this is silent sinus syndrome. We discussed pathophysiology of this syndrome and we have discussed continued medical management versus surgical intervention. In addition to this patient also hassignificant right-sided septal deviation and has had ongoing nasal obstruction as a result of this. Given the above patient would like to proceed with surgery. I discussed in length with patient risks and benefits of surgery including injury to the orbit and globe, risk of retrobulbar hemorrhage, riskof nasal bleeding, risk of septal perforation, risk of recurrence of disease and symptoms, risk of need for further surgery depending on final pathology, risk of smell issues after surgery, and risk ofCSF leak. Patient would like to move forward surgery and we will work on scheduling this. #3 Tinnitus Left Patient has been seen and evaluated by Reema Olivas for ongoing left-sided pulsatile tinnitus. CT temporal bone and CT head neck angiogram has been obtained by Reema Olivas and was noted to be unremarkable. If patient's symptoms persist despite surgical intervention we will need to consider obtaining MRI brain. Patient's questions were solicited and answered. This note was completed with voice recognition software. Please excuse typographic errors. documented in this encounter OR Notes Op Note - Nisa Kahn M.D. - 10/08/2018 12:04 PM CDT FULL OP NOTE DATE OF SURGERY: 10/08/18 SURGEON: Nisa Dee M.D. PREOPERATIVE DIAGNOSIS: 1. Chronic nasal airway obstruction. 2. Deviated nasal septum. 3. Bilateral inferior turbinate hypertrophy. 4. Right maxillary chronic sinusitis with thick inspissated secretions and evidence of sinus sinus syndrome. POSTOPERATIVE DIAGNOSIS: Same. PROCEDURE: 1. Septoplasty. 2. Bilateral inferior turbinate submucous reduction and outfracture. 3. Right maxillary antrostomy with use of navigation INDICATIONS FOR PROCEDURE: Ms. Cardenas is a 23-year-old female who is presenting to me with a right-sided chronic maxillary sinusitis. I have gone over imaging findings with patient and I have discussedwith her that I am concerned that this is silent sinus syndrome. We discussed pathophysiology of this syndrome and we have discussed continued medical management versus surgical intervention. In addition to this patient also has significant right-sided septal deviation and has had ongoing nasal obstruction as a result of this. Given the above patient would like to proceed with surgery. I discussed inlength with patient risks and benefits of surgery including injury to the orbit and globe, risk of retrobulbar hemorrhage, risk of nasal bleeding, risk of septal perforation, risk of recurrence of disease and symptoms, risk of need for further surgery depending on final pathology, risk of smell issuesafter surgery, and risk of CSF leak. ANESTHESIA: General. FINDINGS: Deviated nasal septum and bilateral inferior turbinate hypertrophy. Right maxillary sinus with post-obstructive inspissated thick secretions and evidence of silent sinus syndrome. EBL: 30 cc. SPECIMENS: Right sinus contents. COMPLICATIONS: None. CONDITION AT THE END OF SURGERY: Stable. DESCRIPTION OF THE PROCEDURE: The patient was brought into the operating room and laid in a supine position on the operating room table. The surgical team verified the patient and the procedure to be performed. General anesthesia was induced and the patient's airway was secured with an endotracheal tube. A time out was called and the procedural pause was completed. Films were reviewed. The patient was turned 90 degrees toward the surgeons. The eyes were taped with clear tape and the patient was prepped and draped in the appropriate fashion. Oxymetazoline soaked pledges were placed in the nasal cavity on both sides. The septum and bilateral inferior turbinates were infiltrated with 1% lidocaine with 1:100,000 Epinephrine. The patient was then prepped and draped in the standard fashion. Using a nasal speculum for visualization, a #15 scalpel was used to make a right marisol-transfixion incision. A submucoperichondrial flap was elevated with a Independence elevator, thereby exposing the cartilaginous and bony septum. The bony-cartilaginous junction was then disarticulated with the elevator and a contralateral flap was elevated posteriorly along the bony septum. Double-action scissors and Patricio forceps were used to remove the deviated portions of the bony septum. Next, a #15 scalpel and Eneida elevator were used to remove the anterior portions of deviated septal cartilage. Care was taken to leave a 1 cm caudal and dorsal portion of the septum in place for nasal tip support. An osteotome was then employed to remove the deviated portion of the maxillary crest. The marisol-transfixion incision was closed with interrupted 4-0 chromic sutures and the septal flaps were reapproximated with a running 4-0 chromic suture. Attention was then turned to the sinus portion of the procedure. Extradural computer navigation was registered according to principal system software engineer's guidelines and confirmed to be accurate within 2 mm. This was used throughout the sinus part of the case. The right inferior turbinate was carefully fractured and then lateralized with a Bois elevator. We then proceeded with a right maxillary antrostomy. The uncinate was identified, medialized and removed with through-cutting instruments and the microdebrieder. We switched to a 30 degree endoscope. The natural ostium of the maxillary sinus was identified and enlarged with through-cutting instruments and the microdebrider. Copious thick inspissated mucoid secretions were suctioned from the sinus. The sinus was then irrigated with saline and suctioned. Nasapore soaked in Kenalog was placed in the right middle meatus. Next, attention was directed toward the left inferior turbinate. A #15 scalpel was used to incise the inferior aspect of the turbinate and a Independence elevator was used to elevate a medial mucosal flap. The turbinate shaver was used to perform a submucous resection. The bois elevator was then used to outfracture the turbinate. A similar procedure was then carried out on the right. Hemostasis was achieved with use of oxymetazoline soaked pledgets. Silastic splints were then placed into the nasal cavities and secured with a 3-0 nylon suture. The stomach was suctioned. The eyes were soft at the end of the case and untaped. There were no complications. The patient was turned back to anesthesia. The patient was awakened, extubated and transferred to the recovery room in stable condition. DISPOSITION: Home. Nisa Dee M.D. Full Operative Note Details documented in this encounter Plan of Treatment Upcoming Encounters Date Type Specialty Care Team Description 04/22/2022 Appointment Laboratory Medicine Meryl Julio M.D. [address] [place], [place] [address] (Wo rk) 04/29/2022 Office Visit Endocrinology Meryl Julio M .D. [address] [place], [place] [address] (Wo rk) documented as of this encounter Procedures Procedure Name Priority Date/Time Associated Comments Diagnosis SURGICAL PATHOLOGY Routine 10/08/2018 2:49 PM Sinusitis Chroni c Results for this CDT Maxillary procedure are in Deviation Nasal the results Septal section. ADULT OXYGEN THERAPY Routine 10/08/2018 2:37 PM CDT FUNCTIONAL ENDOSCOPY 10/08/2018 12:35 PM Sinusitis Chr onic SINUS SURGERY WITH CDT Maxillary NAVIGATION Deviation Nasal Septal GLUCOSE POCT, B Routine 10/08/2018 12:07 PM Resul ts for this CDT procedure are i n the results section. documented in this encounter Results Surgical Pathology (10/08/2018 2:49 PM CDT) Component Value Ref Test Analysis Performed At [facility] Range Method Time Signature Report Raymundo Mcdonough, 10/11/2018 [facility] electronically 2:47 PM CDT HEALTH signed by [facility] 10/11/2018 [facility] 2:47 PM CDT HEALTH [facility] Specimen Received A. Nasal polyp, 10/11/2018 [facility] Right sinus 2:47 PM CDT HEALTH contents [facility] Clinical History Chronic maxillary sinusitis 10/11 [facility] Nasal septum deviation 2:47 PM CDT HEALT H [facility] Gross Description Submitted as right sinus contents is cloudy white mucoid 10/11/2018 [facility] debris aggregating to 2 cm and pink biopsies aggregating 2:47 PM CDT HEALTH 0.5 cm. ??There are also two thin fragments of white bone SYSTEM- aggregating 0.5 x 0.3 x 0.1 cm. ??Mucosa and mucoid debris [facility] submitted. ??RS, one block. ?? EAE:pp Microscopic Controls 10/11/2018 [facility] Description reviewed; 2:47 PM CDT HEALTH results SYSTEM- acceptable. [facility] Interpretation Right sinus contents: ??Respiratory mucosa with mini mal 10/11/2018 [facility] chronic inflammation and accompanying inflammatory mucoid 2:47 PM CDT HEALTH debris. ??A GMS stain is negative for yeast and hyphae. SYSTEM- [facility] Specimen (Source) Anatomical Collection Method Collection Time Re ceived Time Location / / Volume Laterality Tissue (Nose) 10/08/2018 2:49 PM CDT Narrative This result has an attachment that is no t available. Nisa Dee M.D. LAB SURG PATH ORDERAB LES Performing Organization Address City/[facility]/[place] [facility] [place] [address] [address] LAB Glucose, POCT (10/08/2018 12:07 PM CDT) P athologist Signature Glucose, POCT, 89 70 - 140 10/08/2018 [facility] B mg/dL 12:[address] [facility] Specimen Anatomical Collection Method Collection Time Receive d Time (Source) Location / / Volume Laterality Blood 10/08/2018 12:07 10/08/2018 PM CDT 12:14 PM CDT Generic [facility] LAB POCT ORDERABLES-MANUAL Performing Organization Address City/[facility]/[place] [facility] [place] [address] [address] LAB documented in this encounter Visit Diagnoses Diagnosis Sinusitis Chronic Maxillary Deviation Nasal Septal documented in this encounter Admitting Diagnoses Diagnosis Sinusitis Chronic Maxillary Deviation Nasal Septal documented in this encounter Administered Medications Inactive Administered Medications - up to 3 most recent administrations Medication Order MAR Action Action Date Dose Rate Site acetaminophen tablet 1,000 mg Given 10/08/2018 12:16 PM CDT 1,00 0 mg (TYLENOL) 1,000 mg, oral, Once, On Thu10/08/18 at 1215, For 1 dose, Pre-Op celecoxib capsule 400 mg (CeleBREX) Given 10/08/2018 12:17 PM CDT 400 mg 400 mg, oral, Once, On Thu10/08/18 at 1215, For 1 dose, Pre-Op dexamethasone (DECADRON) 10 mg/mL inject ion - ADS Override Pull Starting on Thu10/08/18 at 1501, For 1 dose, Created b y cabinet override dexamethasone injection 10 mg (DECADRON) Given 10/08/2018 3:04 PM CDT 10 mg 10 mg, intravenous, Once, On Thu10/08/18 at 1515, For 1 dose, PACU (only) fentaNYL injection 25 mcg (SUBLIMAZE) Given 10/08/2018 3:20 PM CDT 25 mcg 25 mcg, intravenous, Every 2 min PRN, For pain 4 or greater (maximum 100 mcg). If max dose of Fentanyl is reached and if pain is greater than 4, discontinue Fentanyl: give Hydromorphone, Starting on Thu10/08/18 at 1437, PACU (only) Given 10/08/2018 3:17 PM CDT 25 mcg Given 10/08/2018 3:14 PM CDT 25 mcg HYDROmorphone injection 0.2 mg (DILAUDID ) Given 10/08/2018 3:29 PM CDT 0.2 mg 0.2 mg, intravenous, Every 5 min PRN, moderate pain or score 4-6 of 10, severe pain or score 7-10 of 10, Starting on Thu10/08/18 at 1437, PACU (only), Up to maximum total dose of 2 mg Given 10/08/2018 3:23 PM CDT 0.2 mg lactated ringers New Bag 10/08/2018 12:17 PM CDT 20 mL/hr 20 mL/hr 20 mL/hr, intravenous, Continuous, Starting on Thu10/08/18 at 1215, Pre-Op oxyCODONE IR tablet 5 mg (ROXICODONE) Given 10/08/2018 3:41 PM CDT 5 mg 5 mg, oral, Every 4 hours PRN, moderate pain or score 4-6 of 10, Starting on Thu10/08/18 at 1528 scopolamine base 1 mg Medication Applied 10/08/2018 12:18 PM 1 patch Behind Right over 3 days 1 patch CDT Ear (TRANSDERM SCOP) 1 patch, transdermal, Administer over 72 Hours, Once, On Thu10/08/18 at 1215, For 1 dose, Pre-Op, Contains 1.5 mg to deliver 1 mg/72 hours. documented in this encounter Active and Recently Administered Medications Times are shown in CDT. Scheduled Medication Order 10/06/2018 10/07/2018 10/08/2018 acetaminophen tablet 1,000 mg (TYLENOL) (COMPLETED) 1216 (Given - Provider: Jenna Garland REddi) 1,000 mg, oral, Once, On Thu10/08/18 at 1215, For 1 dose, Pre-Op acetaminophen tablet 1,000 mg (TYLENOL) 1615 (Due) 1,000 mg, oral, Every 6 hours scheduled, First dose on Thu10/08/18 at 1615, Orally or per feeding tube. ceFAZolin in dextrose (iso-os) IVPB 2 g (ANCEF) (COMPLETED) 1245 (Given - Provider: Mile Cannon APRN, CLIP BAKER) 2 g (rounded from 2.1325 g = 25 mg/kg ? 85.3 kg Dosing weight), intravenous, at 200 mL/hr, Administer over 30 Minutes, Once, On Thu10/08/18 at 1215, For 1 dose, Intra-Op, Preoperatively within 1 hour p rior to surgical incision premix, Drug M onitoring Program: Pharmacist to adjust medication dosing based on indication and drug clearance factors., Indications: Prophylaxis, surgical celecoxib capsule 400 mg (CeleBREX) (COMPLETED) 1217 (Given - Provider: Jenna Garland REddi) 400 mg, oral, Once, On Thu10/08/18 at 1215, For 1 dose, Pre-Op dexamethasone injection 10 mg (DECADRON) (COMPLETED) 1504 (Given - Provider: Simon Toribio R.N. - Comment: Given by Dr. Sandip Younger) 10 mg, intravenous, Once, On Thu10/08/18 at 1515, For 1 dose, PA CU (only) scopolamine base 1 mg over 3 days 1 patch (TRANSDERM SCOP) 1218 (Medication Applied - Provider: Jenna Garland R.N.)1647 (Due: Medication Removed - Provider: Discharge Provider, Automatic - Comment: Time automatically adjusted from order being discontinued) 1 patch, transdermal, Administer over 72 Hours, Once, On Thu10/08/18 at 1215, For 1 dose, Pre-Op, Contains 1.5 mg to deliver 1 mg/72 hours. Continuous Medication Order 10/06/2018 10/07/2018 10/08/2018 lactated ringers 1217 (New Bag - Provider: Jenna Garland R.N.) 20 mL/hr, intravenous, Continuous, Starting on Thu10/08/18 at 12 15, Pre-Op PRN Medication Order 10/06/2018 10/07/2018 10/08/2018 bacitracin zinc 500 unit/gram ointment packet (CANCELED) 1442 (Given - Provider: Nisa Dee M.D. - Comment: BILATERAL NASAL PASSAGE ON THOMPSON SPLINTS) As needed, Starting on Thu10/08/18 at 1442, Intra-Op dexamethasone injection 4 mg (DECADRON) 4 mg, intravenous, Once as needed, nause a, vomiting, Starting Thu10/08/18 at 1608, For 1 dose, Give only if NOT given during the pre or intraoperative period. If ondansetron ordered, give dexamethasone with first dose of ondansetron. droperidol injection 0.625 mg (INAPSINE) 0.625 mg, intravenous, Every 6 hours PRN , nausea, vomiting, Starting Thu10/08/18 at 1608, For 48 hours, Total of 3 doses in 24 hour period. RASS must be -2 or higher to administer. Reassess for nausea o r vomiting after at least 10 minutes. If nausea or vomiting persists administer next ordered antiemetic medications (order for antiemetic medication administration ondansetron then droperidol then promethazine). fentaNYL injection 25 mcg (SUBLIMAZE) (CANCELED) 1512 (Given - Provider: Simon Toribio R.N.)1514 (Given - Provider: Simon Toribio R.N.)1517 (Given - Provider: Simon Toribio R.N.)1520 (Given - Provider: Simon Toribio R.N.) 25 mcg, intravenous, Every 2 min PRN, Fo r pain 4 or greater (maximum 100 mcg). If max dose of Fentanyl is reached and if pain is greater than 4, discontinue Fentanyl: give Hydromorphone, Starting on Thu10/08/18 at 1437, PACU (only) HYDROmorphone injection 0.2 mg (DILAUDID) (CANCELED) 1523 (Given - Provider: Simon Toribio RSebastianNSebastian)1529 (Given - Provider: Simon Toribio R.N.) 0.2 mg, intravenous, Every 5 min PRN, mo derate pain or score 4-6 of 10, severe pain or score 7-10 of 10, Starting on Thu10/08/18 at 1437, PACU (only), Up to maximum total dose of 2 mg ibuprofen tablet 600 mg (ADVIL,MOTRIN) 600 mg, oral, Every 6 hours PRN, mild pa in or score 1-3 of 10, Starting Thu10/08/18 at 1608, Take with food or milk if GI disturbances occur with use. lidocaine-EPINEPHrine 1 %-1:100,000 injection (XYLOCAINE W/EPI) (CANCELED) 1454 (Given - Provider: Nisa Dee M.D.) As needed, Starting on Thu10/08/18 at 1454, Intra-Op naloxone injection 0.2 mg (NARCAN) 0.2 mg, intravenous, Once as needed, res piratory depression, Starting Thu10/08/18 at 1608, For 1 dose, For respiratory rate less than 8 breaths/min. Do not exceed 0.4 mg total dose. Notify service if given. May repeat as directed by prescriber. ondansetron (PF) injection 4 mg (ZOFRAN) 4 mg, intravenous, Every 6 hours PRN, na usea, vomiting, Starting Thu10/08/18 at 1608, For 48 hours, Reassess for nausea or vomiting after at least 10 minutes. If nausea or vomiting persists administer n ext ordered antiemetic medications (orde r for antiemetic medication administration ondansetron then droperidol then promethazine). oxyCODONE IR tablet 10 mg (ROXICODONE) 10 mg, oral, Every 4 hours PRN, severe p ain or score 7-10 of 10, or pain greater than comfort goal, Starting Thu10/08/18 at 1528 oxyCODONE IR tablet 5 mg (ROXICODONE) 1541 (Given - Provider: Simon Toribio R.N.) 5 mg, oral, Every 4 hours PRN, moderate pain or score 4-6 of 10, Starting on Thu10/08/18 at 1528 oxymetazoline 0.05 % nasal spray (AFRIN) (CANCELED) 1306 (Given - Provider: Nisa Dee M.D. - Comment: SPONGE SOAK) As needed, Starting on Thu10/08/18 at 1306, Intra-Op oxymetazoline 0.05 % nasal spray 2 spray (AFRIN) 2 spray, each nostril, Every 4 hours PRN , congestion, or nose bleed, Starting Thu10/08/18 at 1608, For 3 days, Do not use for more than 3 days. promethazine injection 6.25 mg (PHENERGAN) 6.25 mg, intravenous, Every 6 hours PRN, nausea, vomiting, Starting Thu10/08/18 at 1608, For 48 hours, RASS must be -2 or higher to administer. Reassess for nausea/vomiting after at least 10 minutes. If nausea or vomiting persists administer next ordered antiemetic medications (order for antiemetic medication administration ondansetron then droperidol then promethazine). triamcinolone acetonide injection (KENALOG-40) (CANCELED) 1424 (Given - Provider: Nisa Dee M.D. - Comment: NOSAPORE SOAK) As needed, Starting on Thu10/08/18 at 1424, Intra-Op documented in this encounter Care Teams Drop Wire Builder Relationship Specialty Start Date End Date Audrey Burleson M.D. PCP - General Family Medicine 02/04/18 01/14/21 [address] [facility] [place] [id number] documented as of this encounter
--- OUTSIDE RECORDS SUMMARY | 2022-03-06 07:08 | XMS_ITS | Encounter Summary ---
:1995 Author Organization [facility] Address [address] [place] [address] Care Team Providers Name Role Phone Audrey Burleson M.D. Primary Care Provider [phone] Reason for Referral Outpatient (Routine) - Closed Specialty Diagnoses / Procedures Referred By Contact Refer red To Contact [facility] David Paula M.D. [address] [place] [phone] Referral ID Status Reason Start Date Expiration Date Visits Requ ested Visits Authorized [id number] Closed 12/14/2018 12/14/2019 1 1 Scheduling Instructions 1 month follow up Reason for Visit Reason Comments Follow-up nasal debridement, the patie nt states that she was doing good on her antibiotics and now when she blows her nose the patient states that her mucous is green and tacky. Outpatient (Routine) - Closed Specialty Diagnoses / Procedures Referred By Contact Refer red To Contact Otorhinolaryngology JALIL Kahn [facility] David Paula M.D. 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 ruth Maxillary (Primary Dx); Otorhinolaryngology in [facility], [place] tiadrianna Nasal Septal; [place], [place] Willy Paula Pulsatile Tinnitus Left Ear [address] [facility] [address] [place] [address] [place], [place] [phone] Social History Tobacco Use Types Packs/Day [...] at Date Recorded 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 - 12/14/2018 3:30 PM CDT ENT POSTOPERATIVE/PROCEDURE VISIT SUBJECTIVE CHIEF [...] symptoms consistent with meningitis or CSF rhinorrhea. ??She reports significant improvement in her left pulsatile tinnitus and currently denies any ongoing left-sided pulsatile tinnitus. She has had ongoing issues with intermittent purulent nasal drainage for which she has been on a course of Augmentin, a course of doxycycline, a short course of oral steroids, and budesonide sinus irrigations. Patient reports that last week she felt well and she did not have any concerning symptoms however in the last 1-2 days she feels like she has had slightly more purulent nasal drainage, mild bilateral sinus tenderness, and nasal obstruction on the left non operated side. Past medical history/surgical history/family history/social history, medications and allergies reviewed and are unchanged per initial visit note. REVIEW OF SYSTEMS Please see HPI; otherwise rest of ROS performed and were negative. OBJECTIVE VITAL SIGNS BP 124/80 (BP Location: Right arm, Patient Position: Sitting, Cuff Size: Small) Pulse (!) 120 Temp (!) 35.8 ??C (Temporal) Comment (Src): the patient was sweaty Wt 85.2 kg BMI 29.83 kg/m?? PHYSICAL EXAMINATION General: Alert and oriented, [...] normal, see procedure below for further details. Psychiatric: Alert and oriented x3, affect normal??and [...] The scope was then withdrawn. The 0 and then a 30??degree endoscope was introduced into the left side of the nose with anexamination of the inferior, middle, and superior meatus. [...] curved suction into the right maxillary sinus. ? ASSESSMENT / PLAN #1 Sinusitis Chronic Maxillary [...] have asked patient to follow his recommendations. Overall patient is doing well??since surgery however it does appear she has intermittent issues withacute sinusitis that was treated with a course of Augmentin then a three-week course of doxycycline,five day course of 20 mg of prednisone, and daily budesonide sinus irrigations. On exam today I do not see any obvious evidence of purulence hence I have discussed with patient that I do not want to place her on another course of oral antibiotics and advised her to continue her daily budesonide sinus irrigations at this time. Certainly if her symptoms worsen I would like to see her back for further evaluation and consideration of CT sinus imaging. ?? #3 Pulsatile Tinnitus Left Ear Patient has intermittent left-sided pulsatile tinnitus that appears to correlate with sinus infections. ??After surgery she had significant improvement to the point of complete resolution of her pulsatile tinnitus up until recurrence during an episode of an acute sinus infection. She currently denies any ongoing left-sided pulsatile tinnitus. ?? She has had a temporal bone CT scan that was unremarkable as well as a CT angiogram of her head and neck that was noted to be negative. Patient has also had an audiogram that showed normal hearing. ??Idiscussed with patient that we could pursue MRI brain however given that she now recently has had complete resolution of her pulsatile tinnitus we could hold off on this and at this time patient also prefers to hold off on further imaging. ??I have discussed with patient that if she has recurrence of her pulsatile tinnitus then at that point we should move forward with MR brain imaging. I will plan to see her back in one month. Patient verbalized understanding of our plan. Patient's [...] Appointment Laboratory Medicine Meryl Julio M.D. [address] [place], [place] [address] (Wo rk) 04/29/2022 Office Visit Endocrinology Meryl Julio M .D. [address] [place] [address] (Wo rk) Scheduled Referrals Name Type Priority Associated Order Schedule Diagnoses Otorhinolaryngology office Outpatient Routine E xpected: visit (clinic) Referral 01/14/2019 (Approximate), Expires: 12/14/2021 documented as of this encounter Visit Diagnoses Diagnosis Sinusitis Chronic Maxillary - Primary Deviation Nasal Septal Pulsatile Tinnitus Left Ear documented in this encounter Care Teams Master Black Belt Relationship Specialty Start Date End Date Audrey Burleson M.D. PCP - General Family Medicine 02/04/18 01/14/21 [address] [place] [phone] documented as of this encounter
--- OUTSIDE RECORDS SUMMARY | 2022-03-06 07:08 | XMS_ITS | Encounter Summary ---
:1995 Author Organization [facility] Address [address] [place] [address] Care Team Providers Name Role Phone Audrey Burleson M.D. Primary Care Provider [phone] Encounter Details Date Type Department Care [...] or relatives? How often do you attend amish or temple More than 4 time s per year 06/21/2021 services? 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 [address] [place], [place] [address] (Wo rk) 04/29/2022 Office Visit Endocrinology Meryl Julio M .D. [address] [place], [place] [address] (Wo rk) documented as of this encounter Procedures Procedure Name Priority Date/Time Associated Comments Diagnosis OTORHINOLARYNGOLOGY IMAGE Routine 11/12/2018 2:45 Results for this EXAM AM CDT procedure are i n the results section. documented in this encounter Results Non-Radiology Image-Otorhinolaryngology Image Exam (11/12/2018 2:45 AM CDT) Specimen (Source) Anatomical Location Collection Method / Collectio n Time Received Time / Laterality Volume Narrative IIMS - 11/12/2018 3:12 PM CDT This order has been created [...] filedocumented in this encounter Care Teams Manager Performance Improvement Relationship Specialty Start Date End Date Audrey Burleson M.D. PCP - General Family Medicine 02/04/18 01/14/21 [address] [place] [address] documented as of this encounter
--- OUTSIDE RECORDS SUMMARY | 2022-03-06 07:08 | XMS_ITS | Encounter Summary ---
:1995 Author Organization [facility] Address [address] [place] [address] Care Team Providers Name Role Phone Audrey Burleson M.D. Primary Care Provider [phone] Reason for Referral Outpatient (Routine) - Closed Specialty Diagnoses / Procedures Referred By Contact Refer red To Contact [facility] David Paula M.D. [address] [place] [phone] Referral ID Status Reason Start Date Expiration Date Visits Requ ested Visits Authorized [id number] Closed 11/04/2018 11/04/2019 1 1 Scheduling Instructions 1 month follow up for nasal debridement Reason for Visit Reason Comments Follow-up nasal debridement, the patie nt is unsure if she is getting a sinus infection or not, she felt p retty bad last night and she has sinus pressure, and when she blows her nose its always green, Outpatient (Routine) - Closed Specialty Diagnoses / Procedures Referred By Contact Refer red To Contact Otorhinolaryngology Nadeen Dee [facility] David Paula M.D. 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 - 11/04/2018 3:30 PM CDT ENT POSTOPERATIVE/PROCEDURE VISIT SUBJECTIVE CHIEF COMPLAINT/REASON FOR VISIT Status post right-sided FESS and septoplasty HISTORY OF PRESENT ILLNESS Felecia Cardenas is a 23 y.o. female who presents for follow up after patient underwent septoplasty, bilateral inferior turbinate reduction and outfracture, and right maxillary antrostomy on 10/08/2018. Recall that patient had silent sinus syndrome for which she underwent the sinus part of the procedure. She denies any ongoing nasal bleeding or purulent nasal drainage. She denies any vision issues. She denies any signs and symptoms consistent with meningitis or CSF rhinorrhea. She reports significant improvement in her left pulsatile tinnitus. Patient tells me that in the last several days she has noticed a new onset of new headache as well as since last night some mild purulent drainage from her right nasal cavity. In addition to this she tells me that she had complete resolution of her left pulsatile tinnitus however once again she has had some mild intermittent washing sound in her left ear since last night. Patient tells me that Reema Deisy did give her a referral to Neurology for ongoing pulsatile tinnitus however she had to cancel due to work conflict. I have advised patient to follow-up on this. Past medical history/surgical history/family history/social history, medications [...] EOMI. No nystagmus. Ears: External ears normal. Bilateral ear canals widely patent and bilateral tympanic membranes intact with no evidence of middle ear effusion or masses. Nose: External nose normal, see procedure below for further details. Psychiatric: Alert and oriented x3, affect normal and mood. Neuro: CN II-XII grossly intact. Respiratory: Unlabored breathing, no stertor or stridor. Good voice quality. ?? PROCEDURE: Nasal Endoscopy: Verbal consent obtained and [...] patient tolerated the procedure well. ?? Specific findings: The septum is midline and intact with no evidence of septal hematoma or perforation. On the right side patient noted to have some moderate purulence foul smelling crusting at the site of the right maxillary antrostomy that was suctioned out. Left nasal cavity with no evidence of purulence. Left middle meatus clear without any evidence of polyposis. ASSESSMENT / PLAN #1 Sinusitis Chronic Maxillary #2 Deviation Nasal Septal Ms. Cardenas a 23-year-old female that presented to me with right-sided chronic maxillary sinusitis that was consistent with silent sinus syndrome as well as deviated septum. Patient underwent right-sided maxillary antrostomy, septoplasty, and bilateral inferior turbinate reduction and outfracture on . Overall patient is doing well however it does appear that today she has acute sinusitis hence I will place on a course of Augmentin and have her follow- up with me in a month per her preferenceor sooner if she has worsening in symptoms or persistence of symptoms. ?? She does not have a history of [...] her to continue her daily sinus irrigations. #3 Pulsatile Tinnitus Left Ear Patient has intermittent left-sided pulsatile tinnitus that appears to correlate with sinus infections. After surgery she had significant improvement to the point of complete resolution of her pulsatile tinnitus up until last night. She has had a temporal bone CT scan that was unremarkable as well as a CT angiogram of her head and neck that was noted to be negative. Patient has also had an audiogram that showed normal hearing. I discussed with patient that we could pursue MRI brain however given that she had complete resolution of her pulsatile tinnitus after her sinus surgery we could hold off on this and at this time patient prefers to hold off on further imaging. I have encouraged patient to fol low up on her neurology referral that was placed by Reema Olivas. I have discussed with patient that if she has worsening in her pulsatile tinnitus or persistent despite resolution of her current acute sinus infection then we should pursue MRI brain imaging. Patient's questions were solicited and answered. I will plan to have patient follow-up with me in a month or sooner if she has any questions or concerns. This note was completed with voice recognition software. Please excuse typographic errors. documented in this encounter Plan of Treatment Upcoming Encounters Date Type Specialty Care Team Description 04/22/2022 Appointment Laboratory Medicine Meryl Julio M.D. [facility] [place], [place] [address] (Wo rk) 04/29/2022 Office Visit Endocrinology Meryl Julio M .D. [address] [place], [place] [address] (Wo rk) Scheduled Referrals Name Type Priority Associated Order Schedule Diagnoses Otorhinolaryngology office Outpatient Routine E xpected: visit (clinic) Referral 12/04/2018 (Approximate), Expires: 11/04/2021 documented as of this encounter Visit Diagnoses Diagnosis Sinusitis Chronic Maxillary - Primary Deviation Nasal Septal Pulsatile Tinnitus Left Ear documented in this encounter Care Teams Station Baggage Porter Relationship Specialty Start Date End Date Audrey Burleson M.D. PCP - General Family Medicine 02/04/18 01/14/21 [address] [place] [phone] documented as of this encounter
--- OUTSIDE RECORDS SUMMARY | 2022-03-06 07:08 | XMS_ITS | Encounter Summary ---
:1995 Author Organization [facility] Address [address] [place] [address] Care Team Providers Name Role Phone Audrey Burleson M.D. Primary Care Provider [phone] Encounter Details Date Type Department Care Team Description 10/06/2018 Clinical Department of Ji Loera Otorhinolaryngology in [place], [place] R.N. 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 - 10/07/2018 8:44 AM CDT Pt informed. Telephone Encounter - Nisa Kahn M.D. - 10/07/2018 8:40 AM CDT We were able to get her scheduled for surgery this Thursday hence I do not recommend another course ofantibiotics. She should take her steroids as we had discussed. Telephone Encounter - Mile Loera R.N. 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 She is hoping that we will keep her inmind if you should have a cancellation for surgery. [facility] schedules were not coordinating well. She also is wondering if you would order her an antibiotic as recommended by Dr. Stanton in Allergy as he recommended Augmentin combined with Prednisone. This was initially recommended but since she was potentially having surgery they decided to hold on this. She would like the antibiotic sent to [facility] on [address]. documented in this encounter Plan of Treatment Upcoming Encounters Date Type Specialty Care Team Description 04/22/2022 Appointment Laboratory Medicine Meryl Julio M.D. [facility] [place], [place] [address] (Wo rk) 04/29/2022 Office Visit Endocrinology Meryl Julio M .D. [address] [place] [address] (Wo rk) documented as of this encounter Visit Diagnoses Not on filedocumented in this encounter Care Teams Registered Pharmacy Technician Relationship Specialty Start Date End Date Audrey Burleson M.D. PCP - General Family Medicine 02/04/18 01/14/21 [address] [place] [address] documented as of this encounter
--- OUTSIDE RECORDS SUMMARY | 2022-03-06 07:08 | XMS_ITS | Encounter Summary ---
:1995 Author Organization [facility] Address [address] [place] [address] Care Team Providers Name Role Phone Audrey Burleson M.D. Primary Care Provider [phone] Reason for Visit Reason Onset Date Comments Sinusitis 11/10/2018 Encounter Details Date Type Department Care Team Description 11/10/2018 Clinical Department of Evaristo, Sinusitis Communication Otorhinolaryngology in [place], [place] R.N. 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 - 11/10/2018 3:48 PM CDT Call from patient- Felecia is on day 4 of the Augmentin and she is actually feeling worse with increasing teeth pain, facial pain, clammy skin, and low grade fevers. She is currently alternating tylenol/ibuprofen for the discomfort but it is not really improving. Per Dr. Dee- patient should return to clinic in the next 48 hours for evaluation. documented in this encounter Plan of Treatment Upcoming Encounters Date Type Specialty Care Team Description 04/22/2022 Appointment Laboratory Medicine Meryl Julio M.D. [address] [place] [address] (Wo rk) 04/29/2022 Office Visit Endocrinology Meryl Julio M .D. [address] [place] [address] (Wo rk) documented as of this encounter Visit Diagnoses Not on filedocumented in this encounter Care Teams Polisher Numeral Relationship Specialty Start Date End Date Audrey Burleson M.D. PCP - General Family Medicine 02/04/18 01/14/21 [address] [place] [address] documented as of this encounter
--- OUTSIDE RECORDS SUMMARY | 2022-03-06 07:08 | XMS_ITS | Encounter Summary ---
:1995 Author Organization [facility] Address [address] [place] [address] Care Team Providers Name Role Phone Audrey Burleson M.D. Primary Care Provider [phone] Reason for Visit Auth/Cert Specialty Diagnoses / Procedures Referred By Contact Refer red To Contact Diagnoses Sinusitis Chronic Maxillary Deviation Nasal Septal Procedures ND NASAL ENDOSCOPY DX UNI/BILAT ND ENDO/PLYPECT NOSE W CNTRL HEMR ND ENDO NSAL DACRYOCSTORHINOSTOMY ND ENDO NSL/SNS W CONCH RSECT ND ENDO NSL/SNS W ETHMDCTOMY TOTL ND ENDO NSL W FRNTL SINUS EXPLOR ND ENDO NSL W DIL MXLRY SINUS ND ENDO NSL W DIL FRNTL SINU S ND ENDO NSL W DIL SPHND SINUS ND SUBMUC RSECT TURB PRTL/COMPLT ND SEPTO/SUBM RESEC W/WO CART GRFT FUNCTIONAL ENDOSCOPY SINUS SURGERY WITH NAVIGATION Referral ID Status Reason Start Date Expiration Date Visits Requ ested Visits Authorized [id number] 1 1 Encounter Details Date Type Department Care Team Description 10/08/2018 Surgery [facility] JACQUELINE LOTUS OR Nadeen Jacobs FUNCTIONAL ENDOSCOPY [facility] Nisa Dee, SINUS SURGERY WITH KHRIS CORREA [phone] Wil[place] NAVIGATION Septoplasty [phone] [place] [address] and Bilateral turbinate KHRIS Correa reduction [phone] Social History Tobacco Use Types Packs/Day [...] or relatives? How often do you attend religious or restorationist More than 4 time s per year 06/21/2021 services? 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 [address] [place], [place] [address] (Wo rk) 04/29/2022 Office Visit Endocrinology Meryl Julio M .D. [address] [place], [place] [address] (Wo rk) documented as of [...] Component Value Ref Test Analysis Performed At [facility] Method Time Signature Report Raymundo Mcdonough, 10/11/2018 [facility] electronically 2:47 PM CDT HEALTH signed by [facility] 10/11/2018 [facility] 2:47 PM CDT HEALTH [facility] Specimen Received A. Nasal polyp, 10/11/2018 [facility] Right sinus 2:47 PM CDT HEALTH contents [facility] Clinical History Chronic maxillary sinusitis 10/11 [facility] Nasal septum deviation 2:47 PM CDT HEALT H [facility] Gross Description Submitted as right sinus contents is cloudy white mucoid 10/11/2018 [facility] debris aggregating to 2 cm and pink biopsies aggregating 2:47 PM CDT HEALTH 0.5 cm. ??There are also two thin fragments of white bone SYSTEM- aggregating 0.5 x 0.3 x 0.1 cm. ??Mucosa and mucoid debris [facility] submitted. ??RS, one block. ?? EAE:pp Microscopic Controls 10/11/2018 [facility] Description reviewed; 2:47 PM CDT HEALTH results SYSTEM- acceptable. [facility] Interpretation Right sinus contents: ??Respiratory mucosa with mini mal 10/11/2018 [facility] chronic inflammation and accompanying inflammatory mucoid 2:47 PM CDT HEALTH debris. ??A GMS stain is negative for yeast and hyphae. SYSTEM- [facility] Specimen (Source) Anatomical Collection Method Collection Time Re ceived Time Location / / Volume Laterality Tissue (Nose) 10/08/2018 2:49 PM CDT Narrative This result has an attachment that is no t available. Nisa Dee M.D. LAB SURG PATH ORDERAB LES Performing Organization Address City/[facility]/ZIP [facility] Phon e Number [address] [address] LAB Glucose, POCT (10/08/2018 12:07 PM CDT) P athologist Signature Glucose, POCT, 89 70 - 140 10/08/2018 [facility] B mg/dL 12:07 PM CDT [facility]ALTH [facility]- [facility] Specimen Anatomical Collection Method Collection Time Receive d Time (Source) Location / / Volume Laterality Blood 10/08/2018 12:07 10/08/2018 PM CDT 12:14 PM CDT Generic [facility] LAB POCT ORDERABLES-MANUAL Performing Organization Address City/[facility]/ZIP [facility] Phon e Number [address] [address] LAB documented in this encounter Visit Diagnoses Diagnosis Sinusitis Chronic Maxillary Deviation Nasal Septal Sinusitis Chronic Maxillary Deviation Nasal Septal documented [...] Thu10/08/18 at 1215, For 1 dose, Pre-Op bacitracin zinc 500 unit/gram ointment Given 10/08/2018 2:42 PM CDT 2 packets Other packet As needed, Starting on Thu10/08/18 at 1442, Intra-Op celecoxib capsule 400 mg (CeleBREX) Given 10/08/2018 [...] Continuous, Starting on Thu10/08/18 at 1215, Pre-Op lidocaine-EPINEPHrine 1 %-1:100,000 injection Given 2:54 PM CDT 17 mL (XYLOCAINE W/EPI) As needed, Starting on Thu10/08/18 at 1454, Intra-Op oxyCODONE IR tablet 5 mg (ROXICODONE) Given 10/08/2018 3:41 PM CDT 5 mg 5 mg, oral, Every 4 hours PRN, moderate pain or score 4-6 of 10, Starting on Thu10/08/18 at 1528 oxymetazoline 0.05 % nasal spray Given 10/08/2018 1:06 PM CDT 1 application (AFRIN) As needed, Starting on Thu10/08/18 at 1306, Intra-Op scopolamine base 1 mg Medication Applied 10/08/2018 12:18 PM 1 patch Behind Right over 3 days 1 patch CDT Ear (TRANSDERM SCOP) 1 patch, transdermal, Administer over 72 Hours, Once, On Thu10/08/18 at 1215, For 1 dose, Pre-Op, Contains 1.5 mg to deliver 1 mg/72 hours. triamcinolone acetonide injection (KENAL OG-40) Given 10/08/2018 2:24 PM CDT 40 mg As needed, Starting on Thu10/08/18 at 1424, Intra-Op documented in this encounter Active and Recently Administered Medications Times are shown in CDT. Scheduled Medication Order 10/06/2018 10/07/2018 10/08/2018 acetaminophen tablet 1,000 mg (TYLENOL) (COMPLETED) 1216 (Given - Provider: Jenna Garland R.N.) 1,000 mg, oral, Once, On Thu10/08/18 at 1215, For 1 dose, Pre-Op acetaminophen tablet 1,000 mg (TYLENOL) 1615 (Due) 1,000 mg, oral, Every 6 hours scheduled, First dose on Thu10/08/18 at 1615, Orally or per feeding tube. ceFAZolin in dextrose (iso-os) IVPB 2 g (ANCEF) (COMPLETED) 1245 (Given - Provider: Mile Cannon APRN, GUARD ENTRANCE REGISTRAR) 2 g (rounded from 2.1325 g = 25 mg/kg ? 85.3 kg Dosing weight), intravenous, at 200 mL/hr, Administer over 30 Minutes, Once, Thu10/08/18 at 1215, For 1 dose, Intra-Op, Preoperatively within 1 hour pr io r to surgical incision premix, Drug Winter toring Program: Pharmacist to adjust medication dosing based on indication and drug clearance factors., Indications: Prophylaxis, surgical celecoxib capsule 400 mg (CeleBREX) (COMPLETED) 1217 (Given - Provider: Jenna Garland R.N.) 400 mg, oral, Once, On Thu10/08/18 at [...] Provider: Simon Toribio R.N.)1514 (Given - Provider: Margie FloresN.)1517 (Given - Provider: Flaquito Flores.N.)1520 (Given - Provider: Margie FloresNSebastian) 25 mcg, intravenous, Every 2 min PRN, Fo r pain 4 or greater (maximum 100 mcg). If max dose of Fentanyl is reached and if pain is greater than 4, discontinue Fentanyl: give Hydromorphone, Starting on Thu10/08/18 at 1437, PACU (only) HYDROmorphone injection 0.2 mg (DILAUDID) (CANCELED) 1523 (Given - Provider: Simon Toribio R.N.)1529 (Given - Provider: Simon Toribio RSebastianNSebastian) 0.2 mg, intravenous, Every 5 min PRN, [...] - Provider: Nisa Dee M.D. - Comment: DANNY YIP) As needed, Starting on Thu10/08/18 at 1424, Intra-Op documented in this encounter Care Teams Proofreader Relationship Specialty Start Date End Date uAdrey Burleson M.D. PCP - General Family Medicine 02/04/18 01/14/[address] [place] [phone] documented as of this encounter
--- OUTSIDE RECORDS SUMMARY | 2022-03-06 07:08 | XMS_ITS | Encounter Summary ---
:1995 Author Organization [facility] Address [address] [place] [address] Care Team Providers Name Role Phone Audrey Burleson M.D. Primary Care Provider [phone] Reason for Referral MRI/CAT/PET Scan (Routine) - Closed Specialty Diagnoses / Procedures Referred By Contact Refer red To Contact Radiology Diagnoses Headache Unspecified Scottie Savage M.D. [facility] Region Procedures MR Brain without and with IV Contrast DC MRI BRAIN WO/W CNTRST HC MRI BRAIN WO/W CNTRST [address] [place], [place] [address] Referral ID Status Reason Start Date Expiration Date Visits Requ ested Visits Authorized [id number] Closed 12/17/2018 12/17/2019 1 1 Reason for Visit Reason Comments Consult Migraines Outpatient (Routine) - Closed Specialty Diagnoses / Procedures Referred By Contact Refer red To Contact Neurology Diagnoses Migraine Headache Jalil Parikh M.D. [facility] Region [address] [place] [phone] Referral ID Status Reason Start Date Expiration Date Visits Requ ested Visits Authorized [id number] Closed 07/15/2018 07/15/2019 1 1 Encounter Details Date Type Department Care Team Description 12/17/2018 Comprehensive Visit Department of Scottie Savage (Primary Dx); Neurology in [place] Migraine Headache [place], [place] [address] [place], [place] [address] [place] [phone] Social History Tobacco Use Types Packs/Day Years [...] or relatives? How often do you attend tenriism or scientologist More than 4 time s per year 06/21/2021 services? 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 - 12/17/2018 1:00 PM CDT SUBJECTIVE Referring Provider: Jalil Duran M.D. CHIEF COMPLAINT / REASON FOR VISIT Headache HISTORY OF PRESENT ILLNESS Felecia Cardenas is a 23 y.o. female who presents for evaluation of headache. 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 She recalls having headaches around age 8. They became more severe at age 15. They have gotten worse as she has gotten older. Before April 2018 she would have one headache a week and would last a few hours. Since April 2018 her headaches have been six days out of seven. Each individual headache last several hours. They are bioccipital and bifrontal. They can throb. They are usually 5/10. Severe ones are 10/10, and thatoccur two to 3 times a month. There is nausea if her headache is more than 5/10. She vomits two to 3times a month. She has photophobia if her headache is bad. There is phonophobia but no osmophobia. No zigzag lines or flashing lights. She can has some trouble focusing her vision for an hour during a headache. There is no unilateral weakness. She can get tingling of her left hand with or without heada levar. No clear march of sensory symptoms and she has no sensory symptoms that precede a headache. The headaches do not wake her up at night. She uses Tylenol or ibuprofen daily. Naproxen sodium in the past caused ulcers. She takes rizatriptan once a week but it helps minimally. Coughing and sneezing do not make the headache worse. Using the stairs makes them worse. Headaches are not orthostatic. Smoked venison and can bring one on. Her menstrual bleeding can bring one on. I have reviewed [place] records for this visit. I have directly reviewed imaging studies for this visit. I reviewed CT of the sinuses from October 04, 2018 and agree that it shows right maxillary sinus disease. The imaged brain looks normal to me. I reviewed CTA of the neck from July 2018 as well and agree that it looks normal. I reviewed recent lab testing in the [facility]. The following portions of the patient's history were reviewed and updated as appropriate: problem list, current medications, allergies, medical history, surgical history, family history, and social history. Patient is on progesterone only oral contraception. She has a history of neck pain, kidney stones, Deric thyroiditis, one episode of syncope, and polycystic ovarian syndrome. She had sinus surgery in September 2018. Does not smoke cigarettes. She rarely drinks alcohol. One cup of coffee a day. Her maternal grandmother had migraine. REVIEW OF SYSTEMS: Constitutional: Positive for fatigue and night sweats. ENT: Positive for sinus congestion. Cardiovascular: Positive for rapid or fluttering heart beat. Genitourinary: Positive for difficulty urinating. Hematologic: Positive for abnormal lumps or bumps. Musculoskeletal: Positive for back pain. Neurological: Positive for light-headedness, numbness or shooting pain in hands, arms, legs, or feetand headaches. Psychiatric/Behavioral: Positive for feeling nervous, anxious, or on edge in past two weeks. The following systems were negative: Skin, Eyes, Respiratory, GI Ten point review of systems was completed and was negative other than as noted in the HPI. The patient denies amaurosis fugax, double vision, facial numbness, facial droop, hearing loss, vertigo, trouble swallowing, slurred speech, unsteadiness, and incontinence. She has intermittent pulsatile tinnitus from the left ear. If she stretches her neck it seems to go away. OBJECTIVE PHYSICAL EXAM For details of the neurologic examination, please see the neurologic examination form. I have reviewed vital signs as recorded in the Epic record. Mental status, speech, and language are normal. Cranial nerve testing is normal. Optic discs are flat. Strength and tone are normal in the upper and lower extremities. Reflexes are normal in the upper and lower extremities. Plantar responses are flexor. Sensory exam is normal to light touch in the distal extremities. Gait, station, coordination, AMRs are normal. There is no past-pointing. Neck is supple. ASSESSMENT / PLAN #1 Chronic migraine #2 Acute headache medication overuse #3 Recent sinus surgery #4 Intermittent left-sided pulsatile tinnitus Her history is consistent with chronic migraine. That being said her headaches are markedly worse since April. I think she needs an MRI of the brain with gadolinium. She has some pulsatile tinnitus which is intermittent. Therefore I suspect it is benign. Plan: ?? MRI of the brain with and without gadolinium. ?? The main treatment of chronic migraine is with migraine preventives. The goal of headache prevention is to decrease the headache frequency by 50%. Start low, go slow until therapeutic effects develop, side effects develop, or the ceiling dose is reached. The preventive should be continued for ~2 months at the target dose or maximal tolerated dose before determining utility. If the preventive is effective, it can be tapered after 9-12 months. Patients with migraine should eat, sleep, and exercise regularly. I recommended trying propranolol. She has been on it p.r.n. before so now we will switch to extended release propranolol for migraine prevention. If that did not work after a couple months atthe target dose the patient could be weaned off that and be tried on verapamil by her primary care provider. With verapamil, one typically uses the sustained-release formulation starting at 120 mg/day (1/2 of a 240 mg scored SR tablet) and increases in two weeks to 240 mg/day. If that did not work after a couple months at the target dose the patient could be weaned off that and be tried on Botox. Sheshould contact us in that circumstance and we will arrange in [place] if she is still living in the area. Botox injections for migraine prevention should be employed using the PREEMPT trial protocol and injection sites. I typically try Botox with 3 cycles before determining efficacy. If that did not work after three injections she could stop that and be tried on galcanezumab or erenumab. I would try those each for three months, one at a time. I would likely avoid nortriptyline given that her restingheart rate today was 100. Acutely I recommended trying sumatriptan 100 mg tablets by mouth instead of the rizatriptan. If thatdid not work with a couple headaches she could try sumatriptan 20 mg nasal spray with a couple headaches. Patient education: Ready to learn. No apparent learning barriers were identified. Learning preferences include listening. Explained diagnosis and treatment plan; patient expressed understanding of the content. Coding: P5 documented in this encounter Plan of Treatment Upcoming Encounters Date Type Specialty Care Team Description 04/22/2022 Appointment Laboratory Medicine Meryl Julio M.D. [address] [place], [place] [address] (Wo rk) 04/29/2022 Office Visit Endocrinology Meryl Julio M .D. [address] [place], [place] [address] (Wo rk) documented as of this encounter Results MR Brain without and [...] Normal examination of the I ACs. Scottie Savage M.D. [facility] MRI PROCEDURES documented in this encounter Visit Diagnoses Diagnosis Headache Unspecified - Primary Migraine Headache Headache Unspecified documented in this encounter Care Teams Physician Surgeon Relationship Specialty Start Date End Date Audrey Burleson M.D. PCP - General Family Medicine 02/04/18 01/14/21 [facility] [address] [place] [phone] documented as of this encounter
--- OUTSIDE RECORDS SUMMARY | 2022-03-06 07:08 | XMS_ITS | Encounter Summary ---
:1995 Author Organization [facility] Address [address] [place] [address] Care Team Providers Name Role Phone Audrey Burleson M.D. Primary Care Provider [phone] Reason for Visit Reason Comments Follow-up recheck sinuses. the patient states that she has a lot more pressure on her right side and it is causing teeth pain, the patient is getting green drainage. 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 - 11/12/2018 3:00 PM CDT SUBJECTIVE CHIEF COMPLAINT/REASON FOR VISIT Status post right-sided??FESS??and septoplasty presenting with concerns for acute sinusitis. HISTORY OF PRESENT ILLNESS Felecia Cardenas is [...] significant improvement in her left pulsatile tinnitus. ?? Patient tells me that in the last week she has had noticed a new onset of new headache as well as worsening in her purulent drainage from her right nasal cavity as well as sensation of pressure and pain despite course of Augmentin and sinus irrigations. In addition to this she tells me that she had complete resolution of her left pulsatile tinnitus however once again she has had some mild intermittent washing sound in her left ear since onset of purulent nasal drainage. ?? Patient tells me that Reema Olivas did give her a referral to Neurology for ongoing pulsatile tinnitus however she had to cancel due to work conflict. I have advised patient to follow-up on this. The past medical history, medications, allergies, review of systems, family history, and social history were reviewed and are otherwise unchanged from the last Otolaryngology visit. Please see the pastotolaryngology records for further history and physical exam details, if interested. REVIEW OF SYSTEMS Please see HPI; otherwise rest of ROS performed and were negative. OBJECTIVE VITAL SIGNS BP 120/68 (BP Location: Right arm, Patient Position: Sitting, Cuff Size: Small) Pulse 82 Temp 36.6 ??C (Temporal) Wt 83.8 kg BMI 29.34 kg/m?? PHYSICAL EXAMINATION General: Alert and oriented, No acute distress. ? Head and Face: Normocephalic, atraumatic. Face symmetrical, no weakness. Skin: No scars, lesions on the scalp face or neck. ?? Eyes: Conjunctivae are clear without injection or icterus. EOMI.??No nystagmus. Ears: External ears normal. ?? Bilateral ear canals widely patent and bilateral tympanic membranes intact with no evidence of middle ear effusion or masses. Nose: External nose normal, see procedure below for further details. Psychiatric: Alert and oriented x3, affect normal??and mood. Neuro: CN II-XII grossly intact. ?? Respiratory: Unlabored breathing, no stertor or stridor.??Good voice quality. ?? PROCEDURE: Nasal Endoscopy: Verbal consent obtained and universal protocol followed. ??In order to evaluate structures that could not adequately be assessed by anterior rhinoscopy, rigid nasal endoscopy was performed as a separate identifiable procedure. The nasal passages and the nasopharynx were anesthetized with a topical application of Afrin and 4% lidocaine in a 50:50 mixture. After an appropriate interval, a??0??degree endoscope was introduced into the right side of the nose with an examination of the inferior, middle, and superior meatus. The septum was examined. The choana was examined. The scope was advance to the nasopharynx with examination of the right Eustachian tube orifice, the right posteriorwall of the nasopharynx, and the nasal aspect [...] Eustachian tube orifice, the left posterior wall ofthe nasopharynx, and the nasal aspect of the soft palate. The scope was then withdrawn. There were no complications and the patient tolerated the procedure well. ?? Specific findings:?The septum is midline and intact with no evidence of septal hematoma or perforation. ??On the right side patient noted to have some moderate purulence foul smelling crusting??at the site of the right maxillary antrostomy [...] inferior turbinate reduction and outfracture on 10/08/2018. ??Overall patient is doing well however it does appear she has persistent issues with acute sinusitis despite a course of Augmentin hence I will place her on a three-week course of doxycycline, five day course of 20 mg of prednisone, and start budesonide sinus irrigations. ?? She does not have a history of asthma, nasal polyposis, or sensitivity to aspirin or ibuprofen. ??She has been seen and evaluated by Dr. Stanton in Allergy and noted to have multiple environmental allergies for which immunotherapy was recommended however patient tells me that she is unable to do thisdue to her school and work schedule. ??She did tell me that Dr. Stanton recommended a steroid nasalspray daily??as well as use of an oral [...] of her pulsatile tinnitus up until recurrence of recent sinus infection. She has had a temporal bone CT [...] further imaging. I have encouraged patient to follow up on her neurology referral that was placed by Reema Olivas. I have discussed with patient that if she has worsening in her pulsatile tinnitus or persistent despite resolution of her current acute sinus infection then we should pursue MRI brain imaging. Patient's questions were solicited and answered. Patient verbalized understanding of our plan. I will plan to see her back in one week or sooner if she has any questions, concerns, or worsening symptoms. This note was completed with voice recognition software. Please excuse typographic errors. documented in this encounter Plan of Treatment Upcoming Encounters Date Type Specialty Care Team Description 04/22/2022 Appointment Laboratory Medicine Meryl Julio M.D. [address] [place] [address] (Hector martin) 04/29/2022 Office Visit Endocrinology Meryl Julio M .D. [address] [place] [address] (Wo rk) documented as of this encounter Visit Diagnoses Diagnosis Sinusitis Chronic Maxillary - Primary Deviation Nasal Septal Pulsatile Tinnitus Left Ear documented in this encounter Care Teams Non Morse Intercept Technician Relationship Specialty Start Date End Date Audrey Burleson M.D. PCP - General Family Medicine 02/04/18 01/14/21 [address] [place] [address] documented as of this encounter
--- OUTSIDE RECORDS SUMMARY | 2022-03-06 07:08 | XMS_ITS | Encounter Summary ---
:1995 Author Organization [facility] Address [address] [place] [address] Care Team Providers Name Role Phone Audrey Burleson M.D. Primary Care Provider [phone] Encounter Details Date Type Department Care Team Description 10/05/2018 Hospital Encounter Department of Tigre Stanton Chronic Maxillary; Laboratory Medicine, [facility] Pulsatile Tinnitus Left Ear; Specialty Clinic, in [address] [place] [address] Allergy Antibiotic Personal History; [place], [place] Encounter For Screening For Respiratory Tuberculosis [address] [place] [phone] [place], [place] [phone] (Work) [phone] Social History Tobacco Use Types Packs/Day Years [...] often do you attend roman catholic or spiritism More than 4 time s [...] at Date Recorded Female 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 levothyroxine Take 1 tablet (88 90 tablet [...] Indication: Prolonged Acute Pain/Traumatic Injury. predniSONE (DELTASONE) Take 1 tablet (20 mg 5 tablet 0 01/04/2019 20 mg tablet total) by mouth daily. propranolol (INDERAL) 40 Take 40 mg by mouth 0 12/17/2018 mg tablet as needed. rizatriptan (MAXALT) 01 October repeat in 2 15 tablet 1 018 02/15/2020 mg tablet hours if unresolved. Do not exceed 30 mg in 24 hours. spironolactone Take 1 tablet (50 mg 180 tablet 3 08/24/2018 01/04/2019 (ALDACTONE) 50 mg total) by mouth 2 tabletIndications: (two) times a day. Polycystic Ovary Syndrome spironolactone 0 09/02/2017 01/04/2019 (ALDACTONE) 50 mg tablet documented as of this encounter Plan of Treatment Upcoming Encounters Date Type Specialty Care Team Description 04/22/2022 Appointment Laboratory Medicine Meryl Julio M.D. [address] [place], [place] [address] (Wo rk) 04/29/2022 Office Visit Endocrinology Meryl Julio M .D. [address] [place], [place] [address] (Hector rk) documented as of this encounter Procedures Procedure Name Priority Date/Time Associated Comments Diagnosis ASPERGILLUS FUMIGATUS, Routine 10/05/2018 9:42 Sinusitis Chron ic Results for this IGG, S ABS, S AM CDT Maxillary procedure are in Pulsatile Tinnitus the resul ts Left Ear section. Allergy Antibiotic Personal History CURVULARIA LUNATA, IGE, Routine 10/05/2018 9:42 Sinusitis Options Advisor ruth Results for this S AM CDT Maxillary procedure are in Pulsatile Tinnitus the resul ts Left Ear section. Allergy Antibiotic Personal History ASPERGILLUS FUMIGATUS, Routine 10/05/2018 9:42 Sinusitis Chron ic Results for this IGE, S AM CDT Maxillary procedure are in Pulsatile Tinnitus the resul ts Left Ear section. Allergy Antibiotic Personal History IMMUNOGLOBULINS (IGG, Routine 10/05/2018 9:42 Sinusitis Chroni c Results for this IGA, AND IGM), S AM CDT Maxillary procedure are in Pulsatile Tinnitus the resul ts Left Ear section. Allergy Antibiotic Personal History IMMUNOGLOBULIN E (IGE), Routine 10/05/2018 9:42 Sinusitis Options Advisor ruth Results for this S AM CDT Maxillary procedure are in Pulsatile Tinnitus the resul ts Left Ear section. Allergy Antibiotic Personal History documented in this encounter Results Aspergillus fumigatus, IgG Antibodies (10/05/2018 9:42 AM CDT) P athologist Signature Aspergillus 20.8 <=102 mg/L 10/06/2018 [facility] fumigatus, IgG 3:34 PM CDT [facility] Comment: ----ADDITIONAL INFORMATION---- This test was developed and its performa nce characteristics determined by [facility] in a manner co nsistent with CLIA requirements. This test has not bee n cleared or approved by the U.S. Food and Drug Admin istration. Specimen Anatomical Collection Method Collection Time Receive d Time (Source) Location / / Volume Laterality Blood (Blood, 10/05/2018 9:42 AM 10/07/19 19 Venous) CDT 10:57 AM CDT Alvino Stanton M.D. LAB BLOOD ADD-ON Performing Organization Address City/[facility]/ZIP Code Phon e Number [facility] [address] [place] [address] [facility] Aspergillus fumigatus, IgE (10/05/2018 9:42 AM CDT) athologist Signature Aspergillus <0.35 kU/L 10/06/2018 [facility] Fumigatus, IgE 9:44 AM CDT [facility] Comment: Class 0 (Negative <0.35) Specimen Anatomical Collection Method Collection Time Receive d Time (Source) Location / / Volume Laterality Blood (Blood, 10/05/2018 9:42 AM 10/07/19 19 7:31 Venous) CDT AM CDT Alvino Stanton M.D. LAB BLOOD ADD-ON Performing Organization Address City/[facility]/ZIP Code Phon e Number [place] [id number] [place] [address] [facility] Immunoglobulins (IgG, IgA, and IgM) (10/05/2018 9:42 AM CDT) [facility] Method Time Signature Immunoglobulin A 134 61 - 356 10/06/2018 [facility] (IgA), S mg/dL 9:12 AM CDT [facility] Immunoglobulin M 58 37 - 286 10/06/2018 [facility] (IgM), S mg/dL 9:12 AM CDT [facility] Immunoglobulin G 791 767 - 1590 10/06/2018 [facility] (IgG), S mg/dL 9:32 AM CDT [facility] Specimen Anatomical Collection Method Collection Time Receive d Time (Source) Location / / Volume Laterality Blood (Blood, 10/05/2018 9:42 AM 10/07/19 19 6:05 Venous) CDT AM CDT Alvino Stanton M.D. LAB BLOOD ADD-ON Performing Organization Address City/[facility]/ZIP Code Phon e Number [facility] [address] [place] [address] [facility] Immunoglobulin E (IgE) (10/05/2018 9:42 AM CDT) [facility] Method Time Signature Immunoglobulin E 8.8 <=214 kU/L 10/06/2018 [facility] (IgE), S 9:44 AM CDT [facility] Specimen Anatomical Collection Method Collection Time Receive d Time (Source) Location / / Volume Laterality Blood (Blood, 10/05/2018 9:42 AM 10/07/19 19 7:31 Venous) CDT AM CDT Alvino Stanton M.D. LAB BLOOD ADD-ON Performing Organization Address City/State/ZIP Code Phon e Number [facility] [address] [place] [address] [facility] Curvularjeri arreguin IgE (10/05/2018 9:42 AM CDT) P athologist Signature Curvularia <0.35 kU/L 10/06/2018 [facility], IgE 9:43 AM CDT [facility] Comment: Class 0 (Negative <0.35) Specimen Anatomical Collection Method Collection Time Receive d Time (Source) Location / / Volume Laterality Blood (Blood, 10/05/2018 9:42 AM 10/07/19 19 7:31 Venous) CDT AM CDT Alvino Stanton M.D. LAB BLOOD ADD-ON Performing Organization Address City/State/ZIP Code Phon e Number [place] [phone] [place] [address] [facility] documented in this encounter Visit Diagnoses Diagnosis Sinusitis Chronic Maxillary Pulsatile Tinnitus Left Ear Allergy Antibiotic Personal History Encounter For Screening For Respiratory Tuberculosis documented in this encounter Care Teams Well Shooter Relationship Specialty Start Date End Date Audrey Burleson M.D. PCP - General Family Medicine 02/04/18 01/14/[address] [place] [phone] documented as of this encounter
--- OUTSIDE RECORDS SUMMARY | 2022-03-06 07:08 | XMS_ITS | Encounter Summary ---
:1995 Author Organization [facility] Address [address] [place] [address] Care Team Providers Name Role Phone Audrey Burleson M.D. Primary Care Provider [phone] Reason for Visit Auth/Cert Specialty Diagnoses / Procedures Referred By Contact Refer red To Contact Diagnoses Sinusitis Chronic Maxillary Deviation Nasal Septal Procedures MT NASAL ENDOSCOPY DX UNI/BILAT MT ENDO/PLYPECT NOSE W CNTRL HEMR MT ENDO NSAL DACRYOCSTORHINOSTOMY MT ENDO NSL/SNS W CONCH RSECT MT ENDO NSL/SNS W ETHMDCTOMY TOTL MT ENDO NSL W FRNTL SINUS EXPLOR MT ENDO NSL W DIL MXLRY SINUS MT ENDO NSL W DIL FRNTL SINU S MT ENDO NSL W DIL SPHND SINUS MT SUBMUC RSECT TURB PRTL/COMPLT MT SEPTO/SUBM RESEC W/WO CART GRFT FUNCTIONAL ENDOSCOPY SINUS SURGERY WITH NAVIGATION Referral ID Status Reason Start Date Expiration Date Visits Requ ested Visits Authorized [id number] 1 1 Encounter Details Date Type Department Care Team Description 10/08/2018 Anesthesia Event [facility] ARMANDO [facility] OR Sandip Younger M.B.B.S., M.D. [address] [place] [phone] [facility] Jong Diaz M.D. [address], [address] [place] [address] KHRIS CORREA [phone] Anesthesia Record Procedure Summary Procedure Name Responsible Anesthesia Start Anesthesia Stop Anesthesiologist Time Time FUNCTIONAL ENDOSCOPY Sandip Younger, 10/08/18 1235 10/08/18 1504 SINUS SURGERY WITH Willy Werner NAVIGATION Septoplasty and Bilateral turbinate reduction (Right) Events Date Time Event Comment 10/08/2018 1207 1235 In Room 1235 An Start Machine/Equipmen t Checked Infection Precautions Foll owed Procedure/Site Verified NPO Sta tus Verified Supine Standard ASA Mon itors Applied 1239 An Induction 1242 An Intubation 1243 Turnover to Proceduralist 1253 Proc Start 1453 Turnover to ANE Staff 1454 Proc Fin 1455 Airway Removal Criteria Met 1455 Extubation/Airway Removed 1457 an stop data 1458 Out of Room 1504 An End I completed my h andoff to the receiving staff during [facility] we 1. Identified the patient 2. Ident ified the responsible provider 3. Revi ewed the pertinent medical history 4. Discussed the surgical course 5. Review ed intra-op anesthesia management and i ssues during anesthesia 6. Set expectati ons for post-procedure period 7. Allowe d opportunity for questions and ac knowledgement of understanding. Name Total midazolam 1 mg/mL injection 2 mg fentanyl injection 50 mcg/mL 150 mcg lidocaine 2% (mg) injection 80 mg propofol 10 mg/mL 200 mg rocuronium 10 mg/mL injection 50 mg ondansetron 4 mg/2 mL injection 4 mg phenylephrine 100 mcg/mL injection 100 mcg ceFAZolin in dextrose (iso-os) IVPB 2 g (ANCEF) 2 g dexamethasone 4 mg/mL injection 5 mg ketamine 10 mg/mL injection 30 mg HYDROmorphone 2 mg/mL injection 2 mg propofol 10 mg/mL infusion 709.65 mg Lactated Ringers Free Drip 1,000 mL Agents No agents on file. Blood No blood administrations on file. Lines, Drains, and Airways Type Details Placement Removal Peripheral IV Placement Date: 10/08/18; 10/08/18 1228 by 10/08 1625 by Placement Time: 1228; Jenna Garland, Gerri ortiz, Kiarra J, Catheter Size: 20 G; R.N. R.N. Orientation: Right; Location: Hand; Site Prep: Chlorhexidine (Preferred); Insertion Attempts: 1; Removal Date: 10/08/18; Removal Time: 162 ETT Placement Date: 10/08/18; 10/08/18 1242 by 10/08 1455 by Placement Time: 124 Jhony Dsouza Melanie I., (created via procedure H, EXPEDITER SERVICE ORDER, COMIC BOOK DESIGNER EXPEDITER SERVICE ORDER, CRN A documentation); Mask Ventilation: Easy mask; Type: Standard ETT; Single Lumen Tube Size: 7.5 mm; Cuffed: Yes; Blade Size: Roman 2; Location: Oral; Removal Date: 10/08/18; Removal Time: 1454 documented in this encounter Social History Tobacco Use Types Packs/Day Years [...] How often do you attend quaker or yazidism More than 4 time s [...] Date Recorded Female 06/21/2021 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 - 10/08/2018 3:38 PM CDT Patient: Felecia Cardenas Procedure Summary Date: 10/08/18 Room / Location: [address] Anesthesia Start: 1235 Anesthesia Stop: 1504 Procedure: FUNCTIONAL ENDOSCOPY SINUS SURGERY WITH NAVIGATION Septoplasty and Bilateral turbinate reduction (Right ) Diagnosis: Sinusitis Chronic Maxillary Deviation Nasal Septal (Sinusitis Chronic Maxillary [J32.0]) (Deviation Nasal Septal [J34.2]) Provider: Nisa Kahn M.D. Responsible Provider: Sandip Younger M.B.B.S., M.D. Anesthesia Type: general ASA Status: 2 Anesthesia Type: general Last vitals Vitals Value Taken Time BP 138/101 10/08/2018 3:35 PM Temp 36 ??C 10/08/2018 3:03 PM Pulse 98 10/08/2018 3:38 PM Resp 18 10/08/2018 3:38 PM SpO2 98 % 10/08/2018 3:38 PM Vitals shown include unvalidated device data. Please reference Vitals flowsheet for most recent vital signs. Anesthesia Post Evaluation Patient Disposition: dismissal Cardiovascular status: hemodynamics (HR & BP) acceptable Respiratory status: patent airway with spontaneous effort Temperature: normothermic Oxygen requirements: room air Level of consciousness: awake Pain score: pain adequately controlled and/or at baseline Post Op nausea/vomiting: none Hydration status: euvolemic Anesthesia Procedure Notes - Jhony Dsouza APRN, CRNA - 10/08/2018 12:43 PM CDTAssociated Order(s): AIRWAY MANAGEMENT Airway Date/Time: 10/08/2018 12:42 PM Patient location during procedure: OR / Procedure Area Performed by: JHONY DSOUZA Authorized by: SANDIP YOUNGER Pre procedure details Pre evaluation for airway management: procedure Urgency: elective Preop assessment of probable difficulty: no difficulty anticipated Sedation level: anesthetized Preoxygenation: bag valve mask Procedure details Mask difficulty assessment: easy mask Final airway type: direct laryngoscopy, intubation Laryngeal Manipulation: no Final best view of glottic structures - Cormack/Lehane Score: grade 2A ETT location: oral Adult blade type: Roman 2 Adult tube size: 7.5 Adult ETT distance at teeth/gum: 22 Oral tube type: standard ETT Cuffed: yes Airway confirmation: bilateral breath sounds, positive ETCO2 and bilateral chest rise Post procedure details Procedure outcome: successful Airway event: no complications Anesthesia Preprocedure Evaluation - Sandip Younger M.B.B.S., M.D. - 10/08/2018 12:06 PM CDT Anesthesia Pre-Evaluation Pertinent components of the patient's history including current problem list, medical history, surgical history, family history, social history, medications and allergies were reviewed and updated as appropriate. The patient was examined and the Pre-op diagnosis, planned procedure, and H&P were reviewed and remain unchanged. PROBLEM LIST Relevant Problems RESP (+) Obstructive Sleep Apnea Adult Other (+) Overweight Body Mass Index 25-29.9 Adult OBJECTIVE PHYSICAL EXAMINATION Airway (HEENT) Mallampati: II TM Distance: >3 FB Neck ROM: Full Mouth Opening: >3 cm Cardiovascular Rate: Normal Cardiovascular Assessment: cardiovascular normal Functional Capacity: >4 METS Pulmonary Pulmonary Assessment: Clear Dental Normal General / Constitutional Normal ASSESSMENT / PLAN ANESTHESIA PLAN ASA: 2 Anesthesia Plan: general Patient seen and allergies reviewed; anesthesia plan and risks discussed directly with patient / legal guardian, or through an care transition manager; patient evaluated and approved for anesthesia / sedation. The use of blood products not discussed documented in this encounter Plan of Treatment Upcoming Encounters Date Type Specialty Care Team Description 04/22/2022 Appointment Laboratory Medicine Meryl Julio M.D. [address] [place], [place] [address] (Wo rk) 04/29/2022 Office Visit Endocrinology Meryl Julio M .D. [address] [place], [place] [address] (Wo rk) documented as of this encounter Procedures Procedure Name Priority Date/Time Associated Comments Diagnosis LDA ANE ENDOTRACHEAL Routine 10/08/2018 12:43 Res ults for this AIRWAY PM CDT procedure are i n the results section. documented in this encounter Results LDA ANE ENDOTRACHEAL AIRWAY (10/08/2018 12:43 PM CDT) Narrative Jhony Dsouza APRN, CRNA - 0 10/08/2018 12:43 PM CDT Jhony Dsouza APRN, CRNA ? 10/08/2018 12:44 PM Airway Date/Time: 10/08/2018 12:42 PM Patient location during procedure: OR / Procedure Area Performed by: JHONY DSOUZA Authorized by: SANDIP YOUNGER Pre procedure details ?? Pre evaluation for airway management : procedure ?? Urgency: elective ?? Preop assessment of probable difficu lty: no difficulty anticipated ?? Sedation level: anesthetized ?? Preoxygenation: bag valve mask Procedure details ??Mask difficulty assessment: easy mask ?? Final airway type: direct laryngosco py, intubation Laryngeal Manipulation: no ? Final best view of glottic structure s - Cormack/Lehane Score: grade 2A ?? ETT location: oral ?? Adult blade type: Roman 2 ?? Adult tube size: 7.5 ?? Adult ETT distance at teeth/gum: 22 ?? Oral tube type: standard ETT ?? Cuffed: yes ?? Airway confirmation: bilateral breat h sounds, positive ETCO2 and bilateral chest rise Post procedure details ?? Procedure outcome: successful ? Airway event: no complications Procedure Note Jhony Dsouza APRN COMIC BOOK DESIGNER - 0 10/08/2018 12:43 PM CDT Airway Date/Time: 10/08/2018 12:42 PM Patient location during procedure: OR / Procedure Area Performed by: JHONY DSOUZA Authorized by: SANDIP YOUNGER Pre procedure details Pre evaluation for airway management: p rocedure Urgency: elective Preop assessment of probable difficulty : no difficulty anticipated Sedation level: anesthetized Preoxygenation: bag valve mask Procedure details Mask difficulty assessment: easy mask Final airway type: direct laryngoscopy, intubation Laryngeal Manipulation: no Final best view of glottic structures - Cormack/Lehane Score: grade 2A ETT location: oral Adult blade type: Roman 2 Adult tube size: 7.5 Adult ETT distance at teeth/gum: 22 Oral tube type: standard ETT Cuffed: yes Airway confirmation: bilateral breath s ounds, positive ETCO2 and bilateral chest rise Post procedure details Procedure outcome: successful Airway event: no complications Sandip Werner M.D. ANESTHESIA ORDERABLES documented in this encounter Visit Diagnoses Not on filedocumented in this encounter Administered Medications Inactive Administered Medications - up to 3 most recent administrations Medication Order MAR Action Action Date Dose Rate Site ceFAZolin in dextrose (iso-os) IVPB Given 10/08/2018 12:45 PM CD T 2 g 2 g (ANCEF) 2 g (rounded from 2.1325 g = 25 mg/kg ? 85.3 kg Dosing weight), intravenous, at 200 mL/hr, Administer over 30 Minutes, Once, On Thu10/08/18 at 1215, For 1 dose, Intra-Op, Preoperatively within 1 hour prior to surgical incision premix, Drug Monitoring Program: Pharmacist to adjust medication dosing based on indication and drug clearance factors., Indications: Prophylaxis, surgical dexamethasone injection (DECADRON) Given 10/08/2018 12:50 PM CDT 5 mg As needed, Starting on Thu10/08/18 at 1250, Anesthesia Intra-op fentaNYL injection (SUBLIMAZE) Given 10/08/2018 12:41 PM CDT 50 mcg intravenous, As needed, severe pain or score 7-10 of 10, Starting on Thu10/08/18 at 1239, Anesthesia Intra-op Given 10/08/2018 12:39 PM CDT 100 mcg HYDROmorphone injection (DILAUDID) Given 10/08/2018 3:00 PM CDT 0.5 mg As needed, severe pain or score 7-10 of 10, Starting on Thu10/08/18 at 1319, Anesthesia Intra-op Given 10/08/2018 2:39 PM CDT 0.5 mg Given 10/08/2018 1:37 PM CDT 0.5 mg ketamine injection (KETALAR) Given 10/08/2018 2:16 PM CDT 10 mg As needed, Starting on Thu10/08/18 at 1316, Anesthesia Intra-op Given 10/08/2018 1:16 PM CDT 20 mg lactated ringers New Bag 10/08/2018 2:49 PM CDT intravenous, Continuous Infusion: Per Instructions PRN, Starting on Thu10/08/18 at 1235, Anesthesia Intra-op New Bag 10/08/2018 12:35 PM CDT lidocaine (PF) (cardiac) injection Given 10/08/2018 12:39 PM CDT 80 mg intravenous, As needed, Starting on Thu10/08/18 at 1239, Anesthesia Intra-op midazolam (PF) injection (VERSED) Given 10/08/2018 12:36 PM CDT 2 mg intravenous, As needed, Starting on Thu10/08/18 at 1236, Anesthesia Intra-op ondansetron (PF) injection (ZOFRAN) Given 10/08/2018 2:10 PM CDT 4 mg intravenous, As needed, nausea, vomiting, Starting on Thu10/08/18 at 1410, Anesthesia Intra-op phenylephrine injection Given 10/08/2018 12:46 PM CDT 100 mcg intravenous, As needed, Starting on Thu10/08/18 at 1246, Anesthesia Intra-op propofol 10 mg/mL infusion New Bag 10/08/2018 2:07 PM 150 mcg/kg/m in 74.7 mL/hr (DIPRIVAN) CDT Continuous Infusion: Per Instructions PRN, Starting on Thu10/08/18 at 1407, Anesthesia Intra-op propofol injection (DIPRIVAN) Given 10/08/2018 12:39 PM CDT 200 mg intravenous, As needed, Starting on Thu10/08/18 at 1239, Anesthesia Intra-op rocuronium injection (ZEMURON) Given 10/08/2018 12:40 PM CDT 50 mg intravenous, As needed, Starting on Thu10/08/18 at 1240, Anesthesia Intra-op documented in this encounter Care Teams Video Effects Editor Relationship Specialty Start Date End Date Audrey Burleson M.D. PCP - General Family Medicine 02/04/18 01/14/21 [address] [facility] [place] [address] documented as of this encounter
--- OUTSIDE RECORDS SUMMARY | 2022-03-06 07:08 | XMS_ITS | Encounter Summary ---
:1995 Author Organization [facility] Address [address] [place] [address] Care Team Providers Name Role Phone Audrey Burleson M.D. Primary Care Provider [phone] Reason for Visit Outpatient (Routine) - Closed Specialty Diagnoses / Procedures Referred By Contact Refer red To Contact General Surgery Diagnoses Sinusitis Chronic Maxillary Deviation Nasal Septal [facility] David Paula M.D. [address] [place] [address] Referral ID Status Reason Start Date Expiration Date Visits Requ ested Visits Authorized [id number] Closed 10/05/2018 10/05/2019 1 1 Encounter Details Date Type Department Care Team Description 10/07/2018 Comprehensive Visit Department of [place], [facility] Medical Exam (Primary Dx); Anesthesiology in [facility], Sinusitis Chronic Maxillary; [place], [place] JAVA SOFTWARE, C.N.PSebastian Deviation Nasal Septal [address] [facility] [address] [place] [phone] Social History Tobacco Use Types Packs/Day [...] How often do you attend episcopal or muslim More than 4 time s [...] at Date Recorded Female 06/21/2021 12:52 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 - 10/07/2018 10:00 AM CDT Preoperative Medical Evaluation Patient Name: Felecia Cardenas Age: 23 y.o. Date of : 1995 Primary Care Provider: Audrey Burleson M.D. Pending Procedure: Functional endoscopy sinus surgery with navigation, septoplasty and bilateral turbinate reduction Surgeon: Dr. Nisa Dee History of Present Illness: Ms. Cardenas is a 23 year old female who presents today reporting she began suffering from sinus congestion with headaches and nasal drainage in February of 2018. She presentedto her local healthcare provider while away at [facility] where she was diagnosed with a viral infection and advised to utilize over the counter treatment. Ms. Cardenas reports these symptoms were unresolved with conservative treatment and upon return to [facility] she was seen in the ENT department where she was treated with oral antibiotics for sinusitis. Ms. Cardenas reports no symptom resolution with oral antibiotics and upon return to ENT, CT studies were completed which demonstrated acute on chronic right maxillary sinusitis. In consultation with Dr. Dee regarding these findings, the above procedure was scheduled. Patient Active Problem List Diagnosis ??? Overweight Body Mass Index 25-29.9 Adult ??? Polycystic Ovary Syndrome ??? Thyroiditis Deric's ??? Obstructive Sleep Apnea Adult ??? Migraine Headache ??? Sinusitis Chronic Maxillary ??? Rhinitis Allergic Due To Outdoor Pollen ??? Rhinitis Allergic Dust Mite ??? Rhinitis Allergic Animal ??? Pulsatile Tinnitus Left Ear ??? Deviation Nasal Septal Past Medical History: Diagnosis Date ??? Body Mass Index 40.0 To 44.9 Adult ([facility]) 05/22/2016 Body mass index (BMI) 40.0-44.9, adult Rule activated problem due to BMI 40-44 posted on 05/22 at 08:45 EYELETTER. ??? Migraine Headache 08/05/2018 ??? Obstructive Sleep Apnea Adult 10/14/2016 ??? Polycystic Ovary Syndrome 08/06/2017 ??? Rhinitis Allergic Animal 10/04/2018 ??? Rhinitis Allergic Due To Outdoor Pollen 10/04/2018 ??? Rhinitis Allergic Dust Mite 10/04/2018 ??? Thyroiditis Deric's 08/06/2017 Past Surgical History: Procedure Laterality Date ??? APPENDECTOMY N/A Appendectomy ??? ARTHROSCOPY KNEE Right 04/2015 ??? CHOLECYSTECTOMY N/A Cholecystectomy ??? OTHER CONVERTED SHX (SEE COMMENT) N/A 03/21/2011 >1. ERCP. 2. Needle knife and completion biliary sphincterotomy. ??? OTHER CONVERTED SHX (SEE COMMENT) N/A 03/11/2010 >EGD with small bowel, gastric, and esophageal biopsies. ??? TOTAL KNEE ARTHROPLASTY Left 09/03/2011 partial total knee Felecia Cardenas reports she has tolerated all prior anesthesia exposure without adverse reactionincluding postoperative nausea and vomiting, anaphylaxis, malignant hyperthermia, or pseudocholinesterase deficiency. Family History Problem Relation Age of Onset ??? Endometriosis Mother ??? Ovarian cancer Maternal Grandmother ??? Hyperthyroidism Maternal Grandmother Felecia Cardenas is not aware of a family history of sudden cardiac , malignant hyperthermia, or other anesthesia complications. Current Outpatient Prescriptions: ??? levothyroxine (SYNTHROID, LEVOTHROID) 88 mcg tablet, [...] mouth daily., Disp: 84tablet, Rfl: 3 ??? predniSONE (DELTASONE) 20 mg tablet, Take 1 tablet (20 mg total) by mouth daily., Disp: 5 tablet, Rfl: 0 ??? rizatriptan (MAXALT) 10 mg [...] day., Disp: 180 tablet, Rfl: 3 ??? budesonide (RINOCORT AQUA) 32 mcg/actuation nasal spray, Administer 2 sprays into each nostril daily. (Patient not taking: Reported on 10/05/2018 ), Disp: 8.6 g, Rfl: 11 Allergies Allergen Reactions ??? Ciprofloxacin Anaphylaxis ??? Clindamycin Anaphylaxis ??? Gentamicin Anaphylaxis Social History Substance Use Topics ??? Smoking status: Never Smoker ??? Smokeless tobacco: Never Used ??? Alcohol use No Felecia Cardenas reports an appropriate tolerance for activity. Felecia Cardenas is able to climb 2 flights of stairs and achieve an MET greater than 4 without adverse cardiopulmonary symptoms. ENT: Positive for sinus congestion. All other systems reviewed and are negative. BP 120/78 (BP Location: Left arm, Patient Position: Sitting, Cuff Size: Regular) Pulse 88 Temp (!) 35.9 ??C (Temporal) Resp 16 Ht 169 cm Wt 84.6 kg BMI 29.62 kg/m?? OBJECTIVE PHYSICAL EXAMINATION Airway (HEENT) Mallampati: II Neck ROM: Full Cardiovascular Rhythm: Regular Rate: Normal Cardiovascular Assessment: cardiovascular normal Functional Capacity: >4 METS Pulmonary Pulmonary Assessment: Clear and non labored Neurological Neurologic Assessment:??alert and alert and oriented x 3 Dental Dental Assessment: dentition intact General / Constitutional Constitutional Assessment: Normal Abdomen Normal Musculoskeletal Normal Skin Normal Assessment / Plan Patient medically optimized for planned procedure: Yes Surgery Specific Risk Classification: Low Risk / Elevated Risk: Low Risk Further Recommendations: Medication list was reviewed with the patient. Felecia Cardenas is instructed to take prednisone and levothyroxine the morning of surgery. Advised to avoid NSAIDS, vitamins,supplements and herbal medications in the perioperative period. All other medications listed above will be held the morning of surgery and continued as directed outside of this time frame. documented in this encounter Plan of Treatment Upcoming Encounters Date Type Specialty Care Team Description 04/22/2022 Appointment Laboratory Medicine Meryl Julio M.D. [address] [place] [address] (Wo rk) 04/29/2022 Office Visit Endocrinology Meryl Julio M .D. [address] [place] [address] (Wo rk) documented as of this encounter Visit Diagnoses Diagnosis Preanesthetic Medical Exam - Primary Sinusitis Chronic Maxillary Deviation Nasal Septal documented in this encounter Care Teams Sdet Relationship Specialty Start Date End Date Audrey Burleson M.D. PCP - General Family Medicine 02/04/18 01/14/21 [address] [facility] [place] [phone] documented as of this encounter
--- OUTSIDE RECORDS SUMMARY | 2022-03-06 07:09 | XMS_ITS | Encounter Summary ---
:1995 Author Organization [facility] Address [address] [place] [address] Care Team Providers Name Role Phone Audrey Burleson M.D. Primary Care Provider Reason for Referral MRI/CAT/PET Scan (Routine) - Closed Specialty Diagnoses / Procedures Referred By Contact Refer red To Contact Radiology Diagnoses Pulsatile Tinnitus Left Ear Reema Olivas P.A.-C. [facility] Region Procedures CT Head Neck Angiogram with IV Contrast KS CTA HEAD WO/W CNTRST KS CTA NECK WO/W CNTRST HC CTA HEAD WO/W CNTRST HC CTA NECK WO/W CNTRST KS CTA HEAD WO/W CNTRST KS CTA NECK WO/W CNTRST [address] [place] [phone] Referral ID Status Reason Start Date Expiration Date Visits Requ ested Visits Authorized [id number] Closed 08/03/2018 08/03/2019 1 1 Reason for Visit Auth/Cert Specialty Diagnoses / Procedures Referred By Contact Refer red To Contact Diagnoses Pulsatile tinnitus, left ear Procedures KS CTA HEAD WO/W CNTRST KS CTA NECK WO/W CNTRST Referral ID Status Reason Start Date Expiration Date Visits Requ ested Visits Authorized [id number] 1 1 Encounter Details Date Type Department Care Team Description 08/04/2018 Hospital Encounter Department of Reema Olivas Pulsa tile Tinnitus Radiology, S[facility], in [address] [place], [place] CORY Delong [address] [address] [facility] [phone] [place], [place] (Work) [phone] Social History Tobacco Use [...] How often do you attend shinto or orthodoxy More than 4 time s [...] at Date Recorded Female 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 metFORMIN XR (GLUCOPHAGE 0 09/08/2017 01/04/2019 XR) 500 mg 24 hr tablet metFORMIN XR TAKE 2 TABLETS BY 120 tablet 11 02/12/201801/04 (GLUCOPHAGE-XR) 500 mg 24 MOUTH TWICE A DAY hr tablet norethindrone (MICRONOR) Take 1 tablet 84 tablet 3 04/29/20 18 01/04/2019 0.35 mg tabletIndications: (0.35 mg total) by Polycystic Ovary Syndrome mouth daily. norethindrone (MICRONOR) 0 09/06/2017 01/04/2019 0.35 mg tablet norethindrone (MICRONOR) 0 09/06/2017 01/04/2019 0.35 mg tablet propranolol (INDERAL) 40 Take 40 mg by 0 09/09/19 18 12/17/2018 mg tablet mouth as needed. rizatriptan (MAXALT) 10 mg May repeat in 2 15 tablet 1 04/2402/15/2020 tablet hours if unresolved. Do not exceed 30 mg in 24 hours. spironolactone (ALDACTONE) TAKE 1 TABLET BY 60 tablet 1 08/24/2018 50 mg tabletIndications: MOUTH TWICE A DAY Polycystic Ovary Syndrome spironolactone (ALDACTONE) 0 8 01/04/2019 50 mg tablet documented as of this encounter Plan of Treatment Upcoming Encounters Date Type Specialty Care Team Description 04/22/2022 Appointment Laboratory Medicine Meryl Julio M.D. [facility] [place], [place] [address] (Hector martin) 04/29/2022 Office Visit Endocrinology Meryl Julio M .D. [address] [place], [place] [address] (Hector martin) documented as of this encounter Procedures Procedure Name Priority Date/Time Associated Comments Diagnosis CT HEAD NECK RAD - Routine 08/04/2018 2:43 Pulsatile Results for this ANGIOGRAM WITH IV (most inpatients PM CDT Tinnitus Left Ear p rocedure are in CONTRAST and all the results outpatients) section. CREATININE, POCT, Routine 08/04/2018 2:17 Results for this B PM CDT procedure are i n the results section. CREATININE, POCT, STAT 08/04/2018 2:17 Results for this B PM CDT procedure are i n the results section. documented in this encounter Results CT Head Neck Angiogram with IV Contrast (08/04/2018 2:43 PM CDT) Anatomical Region Laterality Modality Head and Neck, Neuroradiology RST LOS, Neuroradiology N/A Computed Tomography ARZ LOS, Neuroradiology FLA LOS Specimen (Source) Anatomical Collection Method Collection Time Re ceived Time Location / / Volume Laterality 08/04/2018 2:57 PM CDT Impressions 08/04/2018 3:04 PM CDT IMPRESSION: 1. Normal CT angiogram of the head and n [place]. 2. 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 Narrative 08/04/2018 3:04 PM CDT EXAM: CT HEAD NECK ANGIOGRAM WITH IV CONTRAST 3D/MIPS: 3D Post-Processing performed on a dependent workstation. COMPARISON: None. Correlation from [facility] CT 05/13/2018 FINDINGS: Right carotid system: Patent Left carotid system: Patent Vertebral arteries: Patent Aortic arch: Within normal limits Intracranial: The bilateral internal car otids, bilateral MCAs, bilateral A1 segments, intercommunicating artery, betsy ateral anterior cerebral arteries, left vertebral artery, basilar artery, and bi lateral P1 segments are patent. Incidental note of a small right vertebr al artery. Nonvascular findings: There is no intrac ranial mass, extra-axial fluid collection, or midline shift. No abnorma l areas of contrast enhancement are observed involving the brain or its cove rings. Dickson-white interface within normal limits. Bilateral neck structures are symmetric, without evidence for mass or architectural distortion. No nec k lymphadenopathy. There is thickening of the right maxillary wall and right ma xillary mucosal thickening observed consistent with chronic right maxillary sinus disease. Measurement of a carotid stenosis, if pr esent, is based on length parameters that compare the residual internal carot id luminal diameter with that of the normal distal ICA in accordance with Nor [place] Symptomatic Carotid Endarterectomy Trial (NASCET). Procedure Note Jet Spears M.D. - 08/04/2018Form atting of this note might be different from the original. EXAM: CT HEAD NECK ANGIOGRAM WITH IV CON TRAST 3D/MIPS: 3D Post-Processing performed on a dependent workstation. COMPARISON: None. Correlation from [facility] ral bone CT 05/13/2018 FINDINGS: Right carotid system: Patent Left carotid system: Patent Vertebral arteries: Patent Aortic arch: Within normal limits Intracranial: The bilateral internal car otids, bilateral MCAs, bilateral A1 segments, intercommunicating artery, betsy ateral anterior cerebral arteries, left vertebral artery, basilar artery, and bi lateral P1 segments are patent. Incidental note of a small right vertebr al artery. Nonvascular findings: There is no intrac ranial mass, extra-axial fluid collection, or midline shift. No abnorma l areas of contrast enhancement are observed involving the brain or its cove rings. Dickson-white interface within normal limits. Bilateral neck structures are symmetric, without evidence for mass or architectural distortion. No nec k lymphadenopathy. There is thickening of the right maxillary wall and right ma xillary mucosal thickening observed consistent with chronic right maxillary sinus disease. Measurement of a carotid stenosis, if pr esent, is based on length parameters that compare the residual internal carot id luminal diameter with that of the normal distal ICA in accordance with [facility] [place] Symptomatic Carotid Endarterectomy Trial (NASCET). IMPRESSION: 1. Normal CT angiogram of the head and n [place]. 2. 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 Reema Olivas P.A.-C. [place] CT PROCEDURES Creatinine, POCT (08/04/2018 2:17 PM CDT) P athologist Signature Creatinine, 0.6 0.6 - 1.0 08/04/2018 [facility] POCT, B mg/dL 2:17 PM [facility] Comment: ----ADDITIONAL INFORMATION---- Performed at the Point of Care eGFR-Black/ >90 >=60 mL/min/BSA 08/04/2018 2:21 PM [facility] Comment: ----ADDITIONAL INFORMATION---- Estimated GFR calculated using the 2009 CKD_EPI creatinine equation. eGFR Non-Black/ >90 >=60 mL/min/BSA 08/04/2018 2:21 PM [facility] [place], POCT [facility] Comment: ----ADDITIONAL INFORMATION---- Estimated GFR calculated using the 2009 CKD_EPI creatinine equation. Specimen Anatomical Collection Method Collection Time Receive d Time (Source) Location / / Volume Laterality Blood 08/04/2018 2:17 PM 9 2:21 CDT PM CDT Generic Rals LAB POCT ORDERABLES - DEVICE Performing Organization Address City/[facility]/ZIP [facility] Phon e Number [facility] [address] [place] [address] LAB Creatinine, POCT (08/04/2018 2:17 PM CDT) Analysis Performed At Patho logist Time Signature Creatinine with Collected DEFAULT 08/04/2018 [facility] eGFR, POCT, B 2:20 PM CDT [facility] Specimen Anatomical Collection Method Collection Time Receive d Time (Source) Location / / Volume Laterality Blood (Blood, 08/04/2018 2:17 PM 08/05/19 19 2:20 Venous) CDT PM CDT Reema Olivas P.A.-C. LAB POCT ORDERABLES - DEVICE Performing Organization Address City/[facility] Phon e Number [address] [address] LAB documented in this encounter Visit Diagnoses Diagnosis Pulsatile Tinnitus Left Ear documented in this encounter Administered Medications Inactive Administered Medications - up to 3 most recent administrations Medication Order MAR Action Action Date Dose Rate Site iohexol 350 mg iodine/mL solution Given 08/04/2018 2:28 PM CDT 1 00 mL 1-200 mL (OMNIPAQUE) 1-200 mL, intravenous, Once in imaging, contrast, Starting on 08/04/18 at 1424, For 1 dose, Imaging Protocol Orders, Dose per Radiant Medication Guidelines NaCl 0.9 % bolus 100 mL Bolus from Bag 08/04/2018 2:44 PM CDT 100 mL 100 mL, intravenous, Once in imaging, For CT exam, Starting on 08/04/18 at 1424, For 1 dose sodium chloride 0.9 % injection 10 mL Given 08/04/2018 2:44 PM CDT 10 mL 10 mL, intravenous, Once in imaging, line care, For CT exam, Starting on Thu08/04/18 at 1424, For 1 dose documented in this encounter Care Teams Laborer Cook House Relationship Specialty Start Date End Date Audrey Burleson M.D. PCP - General Family Medicine 02/04/18 01/14/21 [address] [facility] [place] [phone] documented as of this encounter
--- OUTSIDE RECORDS SUMMARY | 2022-03-06 07:09 | XMS_ITS | Encounter Summary ---
:[address] [facility] Address [address] [place] [address] Care Team Providers Name Role Phone Audrey Burleson M.D. Primary Care Provider [phone] Reason for Referral Outpatient (Routine) - Closed Specialty Diagnoses / Procedures Referred By Contact Refer red To Contact Otorhinolaryngology JALIL Kahn KHRIS Paula M.D. [address] [place] [phone] Referral ID Status Reason Start Date Expiration Date Visits Requ ested Visits Authorized [id number] Closed 10/05/2018 10/05/2019 1 1 Scheduling Instructions 5-7 day post op for nasal debridement utpatient (Routine) - Closed Specialty Diagnoses / Procedures Referred By Contact Refer red To Contact General Surgery Diagnoses Sinusitis Chronic Maxillary Deviation Nasal Septal JALIL Kahn KHRIS Paula M.D. [address] [place] [phone] Referral ID Status Reason Start Date Expiration Date Visits Requ ested Visits Authorized [id number] Closed 10/05/2018 10/05/2019 1 1 Reason for Visit Reason Comments Follow-up pulsatile tinnitus. patient states she is here to discuss possible sinus surgery patient states thing s are about the same. patient states she was treated for a sinus and is s till having symptoms. Outpatient (Routine) - Closed Specialty Diagnoses / Procedures Referred By Contact Refer red To Contact Otorhinolaryngology Reema Olivas, [facility] K[facility] padgett P.A.-C. [address] [place] [address] Referral ID Status Reason Start Date Expiration Date Visits Requ ested Visits Authorized [id number] Closed 08/03/2018 08/03/2019 1 1 Encounter Details Date Type Department Care Team Description 10/05/2018 Office Visit Department of Nadeen Jacobs Sinusitis Farm Contractor Buyer ruth Maxillary (Primary Dx); Otorhinolaryngology in [facility], Jude tiadrianna Nasal Septal; [place], [place] Willy Paula Tinnitus Left [address] [facility] [facility] [address] [place] [address] [place], [place] [phone] Social History Tobacco Use Types Packs/Day [...] How often do you attend mu-ism or zoroastrian More than 4 time s [...] to pay for the very basics like [employer]ruw hat hard 06/21/2021 food, housing, medical care, [...] at Date Recorded Female 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 - 10/05/2018 8:30 AM [...] excuse typographic errors. documented in this encounter Miscellaneous Notes Addendum Note - Nisa Kahn M.D. - 10/05/2018 8:30 AM CDT Addended by: NISA KAHN on: 10/06/2018 10:20 AM Modules accepted: Orders documented in this encounter Plan of Treatment Upcoming Encounters Date Type Specialty Care Team Description 04/22/2022 Appointment Laboratory Medicine Meryl Julio M.D. [facility] [place], [place] [address] (Hector martin) 04/29/2022 Office Visit Endocrinology Meryl Julio M .D. [address] [place], [place] [address] (Hector martin) Scheduled Referrals Name Type Priority Associated Order Schedule Diagnoses Preoperative Evaluation MALLORY Outpatient Routine Sinusitis Chr onic Expected: consult (clinic) Referral Maxillary 10/05/2018 Deviation Nasal (Approximate ), Septal Expires: 10/05/2021 Otorhinolaryngology office Outpatient Routine E xpected: visit (clinic) Referral 10/12/2018 (Approximate), Expires: 10/05/2021 documented as of this encounter Visit Diagnoses Diagnosis Sinusitis Chronic Maxillary - Primary Deviation Nasal Septal Tinnitus Left documented in this encounter Care Teams Yeast Culture Developer Relationship Specialty Start Date End Date Audrey Burleson M.D. PCP - General Family Medicine 02/04/18 01/14/[address] [place] [phone] documented as of this encounter
--- OUTSIDE RECORDS SUMMARY | 2022-03-06 07:09 | XMS_ITS | Encounter Summary ---
:1995 Author Organization [facility] Address [address] [place] [address] Care Team Providers Name Role Phone Audrey Burleson M.D. Primary Care Provider [phone] Encounter Details Date Type Department Care Team Description 07/16/2018 Clinical Communication Department of Neurology [facility] 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 - 07/16/2018 1:33 PM CST Informed Endocrine nurse that next available was 08/26/18, if pt wanted sooner, would have to go to [place]. WORKER ANIMAL Telephone Encounter - Audrey Pires - 07/16/2018 9:24 AM CST Please triage Consult for Katherine put in by Dr. Duran WORKER ANIMAL documented in this encounter Plan of Treatment Upcoming Encounters Date Type Specialty Care Team Description 04/22/2022 Appointment Laboratory Medicine Meryl Julio M.D. [address] [place], [place] [address] (Wo veronica) 04/29/2022 Office Visit Endocrinology Meryl Julio M .D. [address] [place], [place] [address] (Hector martin) documented as of this encounter Visit Diagnoses Not on filedocumented in this encounter Care Teams Artificial Leather Calender Operator Relationship Specialty Start Date End Date Audrey Burleson M.D. PCP - General Family Medicine 02/04/18 01/14/[address] [place] [phone] documented as of this encounter
--- OUTSIDE RECORDS SUMMARY | 2022-03-06 07:09 | XMS_ITS | Encounter Summary ---
:1995 Author Organization [facility] Address [address] [place] [address] Care Team Providers Name Role Phone Audrey Burleson M.D. 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 [address] [place], [place] [address] (Wo rk) 04/29/2022 Office Visit Endocrinology Meryl Julio M .D. [address] [place], [place] [address] (Wo rk) documented as of this encounter Visit Diagnoses Diagnosis Polycystic Ovary Syndrome documented in this encounter Care Teams Protective Service Specialist Relationship Specialty Start Date End Date Audrey Burleson M.D. PCP - General Family Medicine 02/04/18 01/14/[address] [place] [phone] documented as of this encounter
--- OUTSIDE RECORDS SUMMARY | 2022-03-06 07:09 | XMS_ITS | Encounter Summary ---
:1995 Author Organization [facility] Address [address] [place] [address] Care Team Providers Name Role Phone Audrey Burleson M.D. Primary Care Provider [phone] Reason for Referral MRI/CAT/PET Scan (Routine) - Closed Specialty Diagnoses / Procedures Referred By Contact Refer red To Contact Radiology Diagnoses Sinusitis Chronic Maxillary Reema Olivas P.A.-C. [facility] Region Procedures CT Entrak or Stealth [facility] CT GUIDE STERO LOCALIZ HC CT GUIDE STERO LOCALIZ VA CT GUIDE STERO LOCALIZ [address] [place] [address] Referral ID Status Reason Start Date Expiration Date Visits Requ ested Visits Authorized [id number] Closed 08/03/2018 08/03/2019 1 1 Reason for Visit MRI/CAT/PET Scan (Routine) - Closed Specialty Diagnoses / Procedures Referred By Contact Refer red To Contact Radiology Diagnoses Sinusitis Chronic Maxillary Reema Olivas P.A.-C. [facility] Region Procedures CT Entrak or Stealth VA CT GUIDE STERO LOCALIZ HC CT GUIDE STERO LOCALIZ VA CT GUIDE STERO LOCALIZ [address] [place] [address] Referral ID Status Reason Start Date Expiration Date Visits Requ ested Visits Authorized [id number] Closed 08/03/2018 08/03/2019 1 1 Encounter Details Date Type Department Care Team Description 10/04/2018 Hospital Encounter Department of Reema Olivas, Sinus itis Chronic Radiology, [facility] in [address] [facility] [place], [place] CORY Delong [address] [address] [facility] [phone] [place], [place] (Work[place] [phone] Social History Tobacco Use [...] or relatives? How often do you attend mandaen or denominational More than 4 time s per year 06/21/2021 services? 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 tabletIndications: Sinusitis Chronic Maxillary budesonide (RINOCORT Administer 2 sprays 8.6 g 11 201802/15/2020 AQUA) 32 mcg/actuation into each nostril nasal sprayIndications: daily. Rhinitis Allergic Animal, Rhinitis Allergic Dust Mite, Rhinitis Allergic Due To Outdoor Pollen levothyroxine Take 1 tablet (88 90 tablet [...] (MICRONOR) 0 09/06/2017 01/04/2019 0.35 mg tablet predniSONE (DELTASONE) 2 tabs po BID x 4 28 tablet 0 201810/05/2018 10 mg tabletIndications: days, 1 tab BID x 4 Sinusitis Chronic days, 1 tab DAILY x Maxillary 4 days propranolol (INDERAL) 40 Take 40 mg by mouth 0 12/17/2018 mg tablet as needed. rizatriptan (MAXALT) 10 September repeat in 2 15 tablet 1 018 [...] Appointment Laboratory Medicine Meryl Julio M.D. [address] [place], [place] [address] (Wo rk) 04/29/2022 Office Visit Endocrinology Meryl Julio M .D. [address] [place], [place] [address] (Wo rk) documented as of this encounter Procedures Procedure Name Priority Date/Time Associated Comments Diagnosis CT ENTRAK OR RAD - Routine 10/04/2018 8:31 Sinusitis Chronic Result s for this STEALTH (most inpatients AM CDT Maxillary procedure a re in and all the results outpatients) section. documented in this encounter Results CT Entrak or Stealth (10/04/2018 8:31 AM CDT) Specimen (Source) Anatomical Location Collection Method / Collectio n Time Received Time / Laterality Volume Narrative [id number] - 10/04/2018 8:32 AM CDT This exam does not require a radiologist review or interpretation. Please refer to the patient's medical record on this date for clinical details. Reema Olivas P.A.-C. IMG CT PROCEDURES Performing Organization Address City/State/ZIP Code Phon e Number [id number] NA documented in this encounter Visit Diagnoses Diagnosis Sinusitis Chronic Maxillary documented in this encounter Care Teams Associate Professor Of Philosophy Relationship Specialty Start Date End Date Audrey Burleson M.D. PCP - General Family Medicine 02/04/18 01/14/21 [address] [place] [phone] documented as of this encounter
--- OUTSIDE RECORDS SUMMARY | 2022-03-06 07:09 | XMS_ITS | Encounter Summary ---
:1995 Author Organization [facility] Address [address] [place] [address] Care Team Providers Name Role Phone Audrey Burleson M.D. Primary Care Provider [phone] Reason for Referral Outpatient (Routine) - Closed Specialty Diagnoses / Procedures Referred By Contact Refer red To Contact Endocrinology Jalil Parikh M.D. [facility] Region [address] [place] [phone] Referral ID Status Reason Start Date Expiration Date Visits Requ ested Visits Authorized [id number] Closed 08/04/2018 08/04/2019 1 1 Reason for Visit Reason Comments Polycystic Ovary Syndrome Deric's Thyroiditis Encounter Details Date Type Department Care Team Description 08/04/2018 Office Visit Department of Jalil Parikh, Palpitation s (Primary Dx); Endocrinology in M.D. Migraine Fareed murphy; [place], [place] Polycystic Ovary Syndrome; [address] [place] [address] Overweight Body Mass Index 2 5-29.9 Adult; [place] [address] Thyroiditis Deric's [phone] Social History Tobacco Use Types Packs/Day Years [...] or relatives? How often do you attend denominational or latter day More than 4 time s per year 06/21/2021 services? Do you belong to any clubs or organizations Yes 06/21/2021 such as denominational groups, unions, fraternal or athletic groups, or [...] at Date Recorded Female 06/21/2021 12:52 PM VETERINARIAN [employer]IMAL documented as of this encounter Last Filed Vital Signs Vital Sign Reading Time Taken Comments Blood Pressure 120/70 08/04/2018 2:48 PM CDT Pulse 62 08/04/2018 2:48 PM CDT Temperature - - Respiratory Rate 16 08/04/2018 2:48 PM CDT Oxygen Saturation - - Inhaled Oxygen Concentration - - Weight 86.3 kg (190 lb 4.1 oz) 08/04/2018 2:48 PM CDT Height 170.2 cm (5' 7) 08/04/2018 2:48 PM CDT Body Mass Index 29.8 08/04/2018 2:48 PM CDT documented in this encounter Progress Notes Jalil Duran M.D. - 08/04/2018 4:00 PM CDT Patient Name: Felecia Cardenas [facility] [phone] Date of : 1995 CHIEF COMPLAINT PCOS, hypothyroidism HISTORY OF PRESENT ILLNESS Felecia Cardenas is a 22 y.o. female with history of sleep apnea, obesity is presenting for follow up regarding PCOS and hypothyroidism. She was prescribed Micronor which she was doing ok with however it was changed to Sprintec by pharmacy, she is on it for 3 mo and reports more frequent headaches. She has regular periods. Acne and hairimproved, she is on Spironolactone 50 mg BID. She is also on Metformin 1000 mg BID. She continues to lose weight. 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 She reports palpitations which happen almost every day, no associating symptoms but she feels skipped beat. She apparently had recent fainting episode while in shower, denied preceding chest pain, dizziness. No recurrent lesions. She was having more anxiety lately which improved. She scheduleNeurology visit for 10/2018. She also gets diarrhea with Carb rich food, she had improvement of symptoms with gluten free diet, celiac screening negative. ?? Current Outpatient Prescriptions: ??? levothyroxine (SYNTHROID, LEVOTHROID) [...] Do not exceed 30 mg in 24 hours., Disp: 15 tablet, Rfl: 1 ??? spironolactone (ALDACTONE) 50 mg tablet, TAKE 1 TABLET BY MOUTH TWICE A DAY, Disp: 60 tablet, Rfl: 1 No current facility-administered medications for this visit. Allergies Allergen Reactions ??? Ciprofloxacin Other (see comments) ??? Clindamycin Anaphylaxis ??? Fluticasone Other (see comments) ??? Gentamicin Anaphylaxis Patient Active Problem List Diagnosis ??? Body Mass Index 40.0 To 44.9 Adult (HCC) ??? Polycystic Ovary Syndrome ??? Thyroiditis Deric's Past Surgical History: Procedure Laterality Date ??? APPENDECTOMY N/A Appendectomy ??? CHOLECYSTECTOMY N/A Cholecystectomy ??? OTHER CONVERTED SHX (SEE COMMENT) N/A 03/21/2011 >1. ERCP. 2. Needle knife and completion biliary sphincterotomy. ??? OTHER CONVERTED SHX (SEE COMMENT) N/A 03/11/2010 >EGD with small bowel, gastric, and esophageal biopsies. No family history on file. Social History Social History ??? Marital status: Single Spouse name: N/A ??? Number of children: N/A ??? Years of education: N/A Social History Main Topics ??? Smoking status: Never Smoker ??? Smokeless tobacco: Never Used ??? Alcohol use No Comment: occ ??? Drug use: No ??? Sexual activity: Defer Other Topics Concern ??? None Social History Narrative ??? None REVIEW OF SYSTEMS On complete review of systems, pertinent positive/negative as mentioned in HPI. PHYSICAL EXAM Vitals: 08/04/18 1448 BP: 120/70 Pulse: 62 Resp: 16 Height: 170.2 cm Weight: 86.3 kg General: No acute distress. Eyes: Anicteric Sclera, no proptosis. ENT: Mucous membranes moist and pink. CVS: Regular rate and rhythm. No murmur. Extremities: Warm, well perfused. No tremors on outstretched hands. Neuro: Alert and oriented x 3, grossly intact. LABORATORY/DIAGNOSTICS Labs from [facility] 02/10/17 DHEA: 374 ug/dL (N [id number]) Glucose: [...] on Levothyroxine 88 mcg daily, feeling overall better except palpitations- also had fainting once on shower. She feels skipped beats. As her thyroid labs are in normal range, would think this isnot contributing. Will obtain Holter monitoring and refer to Cardiology if needed. Will also obtain e lectrolyte levels. She will continue with Levothyroxine 88 mcg daily. # PCOS # Overweight # Migraines She is on OCP, spironolactone and Metformin. She continues to lose weight. Acne and hirsutism improved, she has more regular periods. HbA1c is 4.8, normal. She was supposed to be on Micronor however was given Sprintec from pharmacy instead- which might be contributing to her migraines which is happening quite often. She has Neurology stacey in 10/2018, prefers to be evaluated sooner if possible, will refer to [place]. Advised to switch back to Micronor. Will continue with Metformin and Spironolactone. Follow up in 6 mo. I discussed above in details with the patient, all questions were addressed, she showed understanding and agreed with plan. ?? I spent 35 min with the patient, >50% on counseling and coordination of care. documented in this encounter Plan of Treatment Upcoming Encounters Date Type Specialty Care Team Description 04/22/2022 Appointment Laboratory Medicine Meryl Julio M.D. [facility] [place], [place] [address] (Hector martin) 04/29/2022 Office Visit Endocrinology Meryl Julio M .D. [address] [place], [place] [address] (Hector martin) Scheduled Referrals Name Type Priority Associated Order Schedule Diagnoses Endocrinology office Outpatient Referral Routine Expected: visit (clinic) 02/04/2019 (Approximate), Expires: 08/04/2021 documented as of this encounter Procedures Procedure Name Priority Date/Time Associated Diagnosis Comme nts POTASSIUM, S/P Routine 08/03/2018 3:53 PM Palpitations Results for this CDT procedure are i n the results section. MAGNESIUM, S Routine 08/03/2018 3:53 PM Palpitations Results f or this CDT procedure are i n the results section. CALCIUM, TOT, S/P Routine 08/03/2018 3:53 PM Palpitations Resu lts for this CDT procedure are i n the results section. documented in this encounter Results (ABNORMAL) Calcium, Total (08/03/2018 3:53 PM CDT) athologist Signature Calcium, 10.5 (H) 8.6 - 10.0 08/04/2018 [facility] Total, S mg/dL 8:45 PM CDT [facility] LAB Specimen Anatomical Collection Method Collection Time Receive d Time (Source) Location / / Volume Laterality Blood (Blood, 08/03/2018 3:53 PM 08/05/19 19 8:33 Venous) CDT PM CDT Jalil Parikh M.D. LAB BLOOD ADD-ON Performing Organization Address City/[facility] Phon e Number [facility] [address] [place] [address] LAB Potassium (08/03/2018 3:53 PM CDT) athologist Signature Potassium, S 4.2 3.6 - 5.2 08/04/2018 [facility] mmol/L 8:45 PM CDT [facility] LAB Specimen Anatomical Collection Method Collection Time Receive d Time (Source) Location / / Volume Laterality Blood (Blood, 08/03/2018 3:53 PM 08/05/19 19 8:33 Venous) CDT PM CDT Jalil Parikh M.D. LAB BLOOD ADD-ON Performing Organization Address City/[facility] Phon e Number [address] [address] LAB Magnesium (08/03/2018 3:53 PM CDT) athologist Signature Magnesium, S 1.8 1.7 - 2.3 08/04/2018 [facility] mg/dL 8:45 PM CDT [facility] LAB Specimen Anatomical Collection Method Collection Time Receive d Time (Source) Location / / Volume Laterality Blood (Blood, 08/03/2018 3:53 PM 08/05/19 19 8:33 Venous) CDT PM CDT Jalil Parikh M.D. LAB BLOOD ADD-ON Performing Organization Address City/State/ZIP Code Phon e Number [facility] [address] [place] [address] LAB documented in this encounter Visit Diagnoses Diagnosis Palpitations - Primary Migraine Headache Polycystic Ovary Syndrome Overweight Body Mass Index 25-29.9 Adult Thyroiditis Deric's documented in this encounter Care Teams Marketing Coordinator Relationship Specialty Start Date End Date Audrey Burleson M.D. PCP - General Family Medicine 02/04/18 01/14/21 [address] [place] [address] documented as of this encounter
--- OUTSIDE RECORDS SUMMARY | 2022-03-06 07:09 | XMS_ITS | Encounter Summary ---
:1995 Author Organization [facility] Address [address] [place] [address] Care Team Providers Name Role Phone Audrey Burleson M.D. Primary Care Provider [phone] Reason for Referral MRI/CAT/PET Scan (Routine) - Closed Specialty Diagnoses / Procedures Referred By Contact Refer red To Contact Radiology Diagnoses Sinusitis Chronic Maxillary Reema Olivas P.A.-C. [facility] Region Procedures CT Sinuses and Maxillofacial without IV Contrast NE CT MAXFAC WO CNTRST HC CT MAXFAC WO CNTRST NE CT MAXFAC WO CNTRST [address] [place] [address] Referral ID Status Reason Start Date Expiration Date Visits Requ ested Visits Authorized [id number] Closed 08/03/2018 08/03/2019 1 1 Reason for Visit MRI/CAT/PET Scan (Routine) - Closed Specialty Diagnoses / Procedures Referred By Contact Refer red To Contact Radiology Diagnoses Sinusitis Chronic Maxillary Reema Olivas P.A.-C. [facility] Region Procedures CT Sinuses and Maxillofacial without IV Contrast NE CT MAXFAC WO CNTRST HC CT MAXFAC WO CNTRST NE CT MAXFAC WO CNTRST [address] [place] [address] Referral ID Status Reason Start Date Expiration Date Visits Requ ested Visits Authorized [id number] Closed 08/03/2018 08/03/2019 1 1 Encounter Details Date Type Department Care Team Description 10/04/2018 Hospital Encounter Department of Reema Olivas, Sinus itis Chronic Radiology, [facility], in [address] [place], [place] CORY Delong [address] [address] [facility] [phone] [place], [place] (Work) [phone] Social History Tobacco Use [...] or relatives? How often do you attend christian or faith More than 4 time s per year 06/21/2021 services? Do you belong to any clubs or organizations Yes 06/21/2021 such as christian groups, unions, fraternal or athletic groups, or [...] at Date Recorded Female 06/21/2021 12:52 PM [employer] PARTNER documented as of this encounter Medications at [...] 30 mg in 24 hours. spironolactone (ALDACTONE) Take 1 tablet (50 180 tablet 3 01/04/2019 50 mg tabletIndications: mg total) by mouth Polycystic Ovary Syndrome 2 (two) times a day. spironolactone (ALDACTONE) 0 8 01/04/2019 50 mg tablet documented as of this encounter Plan of Treatment Upcoming Encounters Date Type Specialty Care Team Description 04/22/2022 Appointment Laboratory Medicine Meryl Julio M.D. [address] [place] [phone] (Hector martin) 04/29/2022 Office Visit Endocrinology Meryl Julio M .D. [address] [place], [place] [address] (Hector martin) documented as of this encounter Procedures Procedure Name Priority Date/Time Associated Comments Diagnosis CT SINUSES AND RAD - Routine 10/04/2018 8:29 Sinusitis Chronic Resu lts for MAXILLOFACIAL (most inpatients AM CDT Maxillary this proce dure WITHOUT IV CONTRAST and all are in t he outpatients) results section. documented in this encounter Results CT Sinuses and Maxillofacial without IV Contrast (10/04/2018 8:29 AM CDT) Anatomical Region Laterality Modality Head, Neuroradiology RST LOS, Neuroradiology ARZ LOS, N/A Computed Tomography Neuroradiology [facility] Specimen (Source) Anatomical Collection Method Collection Time Re ceived Time Location / / Volume Laterality 10/04/2018 8:45 AM CDT Impressions 10/04/2018 8:49 AM CDT IMPRESSION: 1. 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 2. Otherwise no additional paranasal sin us disease Narrative 10/04/2018 8:49 AM CDT EXAM: CT SINUSES AND MAXILLOFACIAL WITHOUT IV CONTRAST COMPARISON: 08/04/2018 FINDINGS: Compared with the previous exa mination, appearance of the right maxillary sinus is essentially unchanged , with bony thickening of the right maxillary sinus coleman and complete opaci fication on today's exam (previously partial opacification of the maxillary s inus ). The remainder of the paranasal sinuses and mastoid air cells are otherw ise clear. The bilateral globes and orbits are inta ct and within normal limits. Visualized brain structures are symmetri c and within normal limits, without evidence for midline shift. Procedure Note Jet Spears M.D. - 10/04/2018Form atting of this note might be different from the original. EXAM: CT SINUSES AND MAXILLOFACIAL WITHO UT IV CONTRAST COMPARISON: 08/04/2018 FINDINGS: Compared with the previous exa mination, appearance of the right maxillary sinus is essentially unchanged , with bony thickening of the right maxillary sinus coleman and complete opaci fication on today's exam (previously partial opacification of the maxillary s inus ). The remainder of the paranasal sinuses and mastoid air cells are otherw ise clear. The bilateral globes and orbits are inta ct and within normal limits. Visualized brain structures are symmetri c and within normal limits, without evidence for midline shift. IMPRESSION: 1. 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 2. Otherwise no additional paranasal sin us disease Reema Olivas P.A.-C. IMG CT PROCEDURES documented in this encounter Visit Diagnoses Diagnosis Sinusitis Chronic Maxillary documented in this encounter Care Teams Condominium Manager Relationship Specialty Start Date End Date Audrey Burleson M.D. PCP - General Family Medicine 02/04/18 01/14/21 [facility] [address] [place] [phone] documented as of this encounter
--- OUTSIDE RECORDS SUMMARY | 2022-03-06 07:09 | XMS_ITS | Encounter Summary ---
:1995 Author Organization [facility] Address [address] [place] [address] Care Team Providers Name Role Phone Audrey Burleson M.D. Primary Care Provider [phone] Reason for Referral Outpatient (Routine) - Closed Specialty Diagnoses / Procedures Referred By Contact Refer red To Contact Otorhinolaryngology Reema Olivas [facility] R lorin Neal [address] [place] [address] Referral ID Status Reason Start Date Expiration Date Visits Requ ested Visits Authorized [id number] Closed 08/03/2018 08/03/2019 1 1 MRI/CAT/PET Scan (Routine) - Closed Specialty Diagnoses / Procedures Referred By Contact Refer red To Contact Radiology Diagnoses Sinusitis Chronic Maxillary Reema Olivas P.A.-C. [facility] Region Procedures CT Entrak or Stealth [place] CT GUIDE STERO LOCALIZ [facility] CT GUIDE STERO LOCALIZ [place] CT GUIDE STERO LOCALIZ [address] [place] [address] Referral ID Status Reason Start Date Expiration Date Visits Requ ested Visits Authorized [id number] Closed 08/03/2018 08/03/2019 1 1 MRI/CAT/PET Scan (Routine) - Closed Specialty Diagnoses / Procedures Referred By Contact Refer red To Contact Radiology Diagnoses Sinusitis Chronic Maxillary Reema Olivas P.A.-C. [facility] Region Procedures CT Sinuses and Maxillofacial without IV Contrast [place] CT MAXFAC WO CNTRST HC CT MAXFAC WO CNTRST [place] CT MAXFAC WO CNTRST [address] [place] [address] Referral ID Status Reason Start Date Expiration Date Visits Requ ested Visits Authorized [id number] Closed 08/03/2018 08/03/2019 1 1 Outpatient (Routine) - Closed Specialty Diagnoses / Procedures Referred By Contact Refer red To Contact Allergy and Immunology Diagnoses Pulsatile Tinnitus Left Ear Reema Olivas [facility] Region Chandan.Nacho [address] [place] [address] Referral ID Status Reason Start Date Expiration Date Visits V isits Requested Authorized [id number] Closed Specialty 08/03/2018 08/03/2019 1 1 Services Required MRI/CAT/PET Scan (Routine) - Closed Specialty Diagnoses / Procedures Referred By Contact Refer red To Contact Radiology Diagnoses Pulsatile Tinnitus Left Ear Reema Olivas P.A.-C. [facility] Region Procedures CT Head Neck Angiogram with IV Contrast [place] CTA HEAD WO/W CNTRST [place] CTA NECK WO/W CNTRST HC CTA HEAD WO/W CNTRST HC CTA NECK WO/W CNTRST [place] CTA HEAD WO/W CNTRST [place] CTA NECK WO/W CNTRST [address] [place] [address] Referral ID Status Reason Start Date Expiration Date Visits Requ ested Visits Authorized [id number] Closed 08/03/2018 08/03/2019 1 1 Reason for Visit Reason Comments Follow-up recheck left ear and sinuses , patient states left ear has gotten worse, after antibiotics she stoppe d hearing the woshing sound in her ear but is now hearing that again, sinu ses are the same as last time, patient also states she has had 5 migrain es this year, in the morning patient states she has drainage from the ear, n o pain in ear just the sound in her ear. Appointment Request (Routine) - Closed Specialty Diagnoses / Procedures Referred By Contact Refer red To Contact Otorhinolaryngology Referral ID Status Reason Start Date Expiration Date Visits Requ ested Visits Authorized [id number] Closed 07/15/2018 07/15/2019 1 1 Encounter Details Date Type Department Care Team Description 08/03/2018 Office Visit Department of Reema Olivas Pulsatile Tinn itus Left Ear (Primary Dx); Otorhinolaryngology in [place] Sinusitis Chronic Maxillary [place], [place] [address] [place] [id number] [place] [phone] Social History Tobacco Use Types Packs/Day Years [...] or relatives? How often do you attend methodist or evangelical More than 4 time s per year 06/21/2021 services? 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 - 08/03/2018 3:00 PM CDT CHIEF COMPLAINT/REASON FOR VISIT Follow up on left pulsatile tinnitus CLINICAL NOTE: A 22 y.o. female who presents to the ENT clinic today for follow up. She notes that since our last visit her symptoms have continued. She continues to have left-sided pulsatile tinnitus.She continues to have facial pressure and pain as well. She has pressure across her mid face bilaterally, but the pressure is worse on the right side. She has soreness of her upper teeth to the point where it hurts to eat at times. She feels like she has mucus stuck in the back of her nose and throat that she cannot clear. She denies anterior nasal drainage or nasal congestion. She has had some fevers. She has had increased headaches. She feels these headaches behind her eyes like her eyes are being pushed out. She can also get a headache in the back of her head and neck. She has had 5 migraines since our last visit which is significant increase in the frequency of her migraines previously. She has been started on Maxalt for the migraines. Since our last visit she underwent the CT scan of the temporal bones which showed sinusitis of the right maxillary sinus. She was treated with a course of Augmentin and doxycycline. She notes that while she was on the antibiotics in for several weeks after completing the antibiotics the pulsatile tinnitus in the left ear had resolved. The pulsatile tinnitus has since returned. She notes that on Thursday she had a palpitations and did have a syncopal episode and then had a migraine. She notes that the pulsatile sensation was much louder around the time she isexperiencing these symptoms. She used the Flonase for a couple of months, but discontinued this as she was getting nosebleeds. Past medical history, family history and social history were reviewed with the patient today. REVIEW OF SYSTEMS Please see HPI, all remaining systems are negative. MEDICATIONS Current Outpatient Prescriptions: ??? levothyroxine (SYNTHROID, LEVOTHROID) [...] A DAY, Disp: 60 tablet, Rfl: 1 ALLERGIES Allergies Allergen Reactions ??? Ciprofloxacin Other (see comments) ??? Clindamycin Anaphylaxis ??? Fluticasone Other (see comments) ??? Gentamicin Anaphylaxis PHYSICAL EXAM Vitals: 08/03/18 1450 BP: 124/82 BP Location: Right arm Patient Position: Sitting Cuff Size: Regular Pulse: (!) 112 Temp: 36.2 ??C TempSrc: Temporal Weight: 85.5 kg General: Alert and oriented, No acute distress. Well nourished female. Voice is normal. HEENT: Head and Face: Normocephalic, atraumatic. Face symmetrical, no weakness. Parotids and submandibular glands normal. Skin: No scars, lesions on the scalp face or neck. Eyes: Conjunctiva are clear without injection or icterus. Ears: External ears normal, canals patent. Bilateral tympanic membranes and middle ear spaces were clear without effusions, erythema or perforations. Nose: External nose normal, anterior rhinoscopy shows normal mucosa, septum and inferior turbinates.There is no purulent nasal drainage. Oral cavity/oropharynx: No trismus, adequate dentition. No lesions or masses of the lips, gingiva, buccal mucosa, hard and soft palate, uvula, floor of mouth or oral tongue, tongue base, tonsillar fosse. Neck: Symmetrically soft and supple, no masses, adenopathy. Trachea midline. Thyroid: No thyromegaly. Neuro/Psychiatric: Alert and oriented x 3, affect normal. Good voice quality. CN 2-[address] scan of the temporal bones obtained on 05/13/2018 is independently reviewed and reviewed with thepatient. Bilateral middle ear spaces and mastoids are clear. Ossicles appear normal bilaterally. CT scan of the temporal bones is normal. Incidentally the right maxillary sinus is noted to be opacified. These findings are suspicious for silent sinus syndrome. Audiogram from 05/11/2018 was reviewed. It showed normal hearing across all frequencies bilaterally.Word recognition scores were excellent bilaterally. Tympanograms were type a with normal ear canal volumes. IMPRESSION 1. Pulsatile Tinnitus Left Ear 2. Sinusitis Chronic Maxillary PLAN We reviewed her CT scan. It is interesting that her pulsatile tinnitus resolves well she is being treated for the sinusitis. The findings in the right maxillary sinus may represent silent sinus syndrome. I recommended she continue to use her saline irrigations. I have recommended surgical consultationwith Dr. Dee to discuss a possible right maxillary antrostomy. She will be away at school in till made September. I recommended that when she return to the area in September we obtain a CT scan of the sinuses and stealth CT and she return to clinic to see Dr. Dee. To further evaluate her pulsatile tinnitus I have recommended a CT angiogram of the head and neck. We will call her with those results in the eantime. I have also recommended she continue to follow with her primary care provider to discuss the recent episode of syncope and the palpitations. She is given a phone number for office for her to contact us with any questions, concerns, or issues in the meantime. documented in this encounter Plan of Treatment Upcoming Encounters Date Type Specialty Care Team Description 04/22/2022 Appointment Laboratory Medicine Meryl Julio M.D. [address] [place] [address] (Wo veronica) 04/29/2022 Office Visit Endocrinology Meryl Julio M .D. [address] [place] [address] (Hector martin) Scheduled Referrals Name Type Priority Associated Order Schedule Diagnoses Allergy and Immunology - Outpatient Routine Pulsatile Exp ected: General consult (clinic) Referral Tinnitus Left Ea r 08/03/2018 (Approximate), Expires: 08/03/2021 Otorhinolaryngology office Outpatient Routine E xpected: visit (clinic) Referral 10/04/2018 (Approximate), Expires: 08/03/2021 documented as of this encounter Results CT Entrak or Stealth (10/04/2018 8:31 AM CDT) Specimen (Source) Anatomical Location Collection Method / Collectio n Time Received Time / Laterality Volume Narrative [id number] - 10/04/2018 8:32 AM CDT This exam does not require a radiologist review or interpretation. Please refer to the patient's medical record on this date for clinical details. Reema Olivas P.A.-C. IMG CT PROCEDURES Performing Organization Address City/State/ZIP Code Phon e Number [id number] Sinuses and Maxillofacial without IV Contrast [...] paranasal sin us disease Reema Olivas P.A.-C. IMToya CT PROCEDURES CT Head Neck Angiogram with IV Contrast [...] a dependent workstation. COMPARISON: None. Correlation from [facility] bone CT 05/13/2018 FINDINGS: Right carotid system: [...] the normal distal ICA in accordance with [facility] [place] Symptomatic Carotid Endarterectomy Trial (NASCET). Procedure Note Jet Spears M.D. - 08/04/2018Form atting of this note might be different from the original. EXAM: CT HEAD NECK ANGIOGRAM WITH IV CON TRAST 3D/MIPS: 3D Post-Processing performed on a dependent workstation. COMPARISON: None. Correlation from [facility] bone CT 05/13/2018 FINDINGS: Right carotid system: [...] the normal distal ICA in accordance with [place]o Symptomatic Carotid Endarterectomy Trial (NASCET). IMPRESSION: 1. Normal CT angiogram of the head and n [place]. 2. 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 Reema Olivas P.A.-C. IMG CT PROCEDURES documented in this encounter Visit Diagnoses Diagnosis Pulsatile Tinnitus Left Ear - Primary Sinusitis Chronic Maxillary Pulsatile Tinnitus Left Ear Sinusitis Chronic Maxillary Sinusitis Chronic Maxillary documented in this encounter Care Teams Power Shovel Operator Helper Relationship Specialty Start Date End Date Audrey Burleson M.D. PCP - General Family Medicine 02/04/18 01/14/21 [facility] [address] [place] [phone] documented as of this encounter
--- OUTSIDE RECORDS SUMMARY | 2022-03-06 07:09 | XMS_ITS | Encounter Summary ---
:1995 Author Organization [facility] Address [address] [place] [address] Care Team Providers Name Role Phone Audrey Burleosn M.D. Primary Care Provider [phone] Reason for Referral Outpatient (Routine) - Closed Specialty Diagnoses / Procedures Referred By Contact Refer red To Contact Neurology Diagnoses Migraine Headache Jalil Parikh M.D. [facility] Region [address] [place] [address] Referral ID Status Reason Start Date Expiration Date Visits Requ ested Visits Authorized [id number] Closed 07/15/2018 07/15/2019 1 1 ER RESISTANCE Encounter Details Date Type Department Care Team Description 07/15/2018 Clinical Communication Department of Jyoti Orozco, [place] [address] [facility] [address] [place] [id number] [phone] Social History Tobacco Use Types Packs/Day Years [...] How often do you attend anabaptist or anabaptist More than 4 time s [...] at Date Recorded Female 06/21/2021 12:52 PM BRAZER RESISTANCE documented as of this encounter Miscellaneous Notes Telephone Encounter - Jyoti Orozco L.P.N. - 07/15/2018 3:56 PM CST Spoke to Ramírez, gave her update, she is checking on labs and insurance ER RESISTANCE Telephone Encounter - Jalil Duran M.D. - 07/15/2018 3:38 PM CST I placed consult for Neurology however I am not sure if she can get in [place], we can place outsideconsult I she wants to go another clinic. The palpations could be thyroid related however unfortunately I can not tell before getting lab results. As she is coming soon and we adjusted dose after last visit I would better see what her levels look like before I make changes. ER RESISTANCE Telephone Encounter - Jyoti Orozco L.P.N. - 07/15/2018 1:[address] Duran, I spoke with Felecia today she is scheduled to see you August 03 on her spring break. She is c/o migraines many already this year,she is having cramping almost daily doubling her over in pain, she ishaving some flank pain also. She was wondering about an ref to neuro for her headaches. She doesn't feel she has changed her routine at all, drinking the same amt of water, but doesn't feel she is voiding as much. 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 (She is not PJ). She is having heart palpations . She was crying and upset about how she is feeling. She has labs in [place] which I said I would fax to [place] for her, but she wants to check insurance because last time they charged her $300. For her labs and insurance doesn't cover. Any ideas or advise? ER RESISTANCE Telephone Encounter - Terrie Morrow - 07/15/2018 11:19 AM CST LM for patient to call back and schedule. Left direct scheduling line. ER RESISTANCE documented in this encounter Plan of Treatment Upcoming Encounters Date Type Specialty Care Team Description 04/22/2022 Appointment Laboratory Medicine Meryl Julio M.D. [address] [place] [address] (Hector martin) 04/29/2022 Office Visit Endocrinology Meryl Julio M .D. [address] [place] [address] (Hector martin) Scheduled Referrals Name Type Priority Associated Diagnoses [facility] - Outpatient Referral Routine Migraine Headache Exp ected: Headache consult 07/15/2018 (clinic) (Approximate), Expires: 07/15/2021 documented as of this encounter Visit Diagnoses Diagnosis Migraine Headache - Primary documented in this encounter Care Teams Technician Inventory Specialist Relationship Specialty Start Date End Date Audrey Burleson M.D. PCP - General Family Medicine 02/04/18 01/14/21 [address] [facility] [place] [address] documented as of this encounter
--- OUTSIDE RECORDS SUMMARY | 2022-03-06 07:09 | XMS_ITS | Encounter Summary ---
:[address] [facility] Address [address] [place] [address] Care Team Providers Name Role Phone Audrey Burleson M.D. 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 [address] [place], [place] [address] (Wo rk) 04/29/2022 Office Visit Endocrinology Meryl Julio M .D. [address] [place], [place] [address] (Wo rk) documented as of this encounter Visit Diagnoses Not on filedocumented in this encounter Care Teams Crm Solution Architect Relationship Specialty Start Date End Date Audrey Burleson M.D. PCP - General Family Medicine 02/04/18 01/14/21 [address] [place] [phone] documented as of this encounter
--- OUTSIDE RECORDS SUMMARY | 2022-03-06 07:09 | XMS_ITS | Encounter Summary ---
:1995 Author Organization [facility] Address [address] [place] [address] Care Team Providers Name Role Phone Audrey Burleson M.D. Primary Care Provider [phone] Reason for Visit Reason Comments New Patient ? antibiotic allergies Outpatient (Routine) - Closed Specialty Diagnoses / Procedures Referred By Contact Refer red To Contact Allergy and Immunology Diagnoses Pulsatile Tinnitus Left Ear Reema Olivas, [facility] P.[facility]C. [address] [place] [address] Referral ID Status Reason Start Date Expiration Date Visits V isits Requested Authorized [id number] Closed Specialty 08/03/2018 08/03/2019 1 1 Services Required Encounter Details Date Type Department Care Team Description 10/04/2018 Office Visit Department of Allergy Alla Stanton tis Chronic Maxillary [facility] D[facility] Pulsatile Tinnitus Left Ear; [address] 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 - 10/04/2018 10:00 AM CDT Consider a course of Augmentin x 21 days and prednisone taper for treatment of sinusitis, but pleasewait for ENT input before starting antibiotic and steroid. Budesonide nasal spray (generic Rhinocort) 2 sprays each nostril once daily for control of nasal symptoms. Budesonide slowly suppresses nasal inflammation. It takes a few days to start working, and up to several weeks to reach full effect, so it works best when used consistently. Budesonide nasal spray can be purchased gpty-wfq-rxicbmx, without prescription. For nasal dryness and thick mucus, consider water-based, okxi-khg-litdliw moisturizing nasal gels orsprays, such as Points, NasoGel, or Xlear. Liquid nasal moisturizers (such as Xlear) can loosen sticky,crusted mucus and promote mucus clearance. Nasal gels (such as Points or NasoGel) can soothe dry, irritated nasal membranes. Different people have different preferences, so try several brands. There is no???dose?? for nasal moisturizers, so you can use these products as often as desired. Saline sinus rinse (such as NeilMed Sinus Rinse or Neti pot) as needed to wash out thick or crusted mucus. Using a nasal rinse on a regular basis may help prevent sinus infections. Loratadine (generic, zedf-jmq-hdmujqn Claritin) 10-40 mg per day as needed for itch, sneeze, runny nose, or postnasal drip. Loratadine tends to be least expensive as Member???s Jerry loratadine at [facility] of or as AllerClear at [facility]. [facility] is a good place to look for inexpensive loratadine on-line. Ketotifen eyedrops (generic Zaditor/Alaway/Claritin/Zyrtec) 2-4 times per day as needed for eye itching. Eyedrops tend to be more soothing if refrigerated. Ketotifen eyedrops available blep-uex-vtbupjy, without prescription. Get blood tests. Please try to get more details about antibiotic allergies. Follow up with the Allergy Department if your symptoms are not controlled in 1 month, sooner if needed. Otherwise, follow up with the Allergy Department or your primary care provider in 1 year for renewal of any prescription medications. Call for questions or concerns. Controlling Allergens: Dust Mites Constant exposure to allergens means constant allergy symptoms. That???s why controlling or avoidingthe allergens that cause your symptoms is an important part of your treatment. If you are allergic to dust mites, the tips below may help. The more you do to keep all allergens away from your nose, thebetter you???ll feel. Dust Mite Allergy Dust mites are perhaps the most common cause of nasal allergies. These mites are microscopic organisms that live in bedding, upholstered furniture, and carpets. They thrive in warm, humid conditions. Dust mites and their waste products are the main causes of an allergic reaction to dust. House-dust mites are almost impossible to get rid of. But you can keep them under control. Make Changes to Your Home Some soft furnishings hold dust mites. To minimize the problem: ??? Choose nonfabric upholstery, like leather or vinyl. ??? Have as little carpeting as possible. ??? Enclose your mattress, box spring, and pillows in allergy-proof casings. These are available by mail order and in some stores. Mattress pads and sheets go over the encasements and are washed frequently. Mattress encasements do not need to be washed. Housecleaning Ask your doctor about special products to control dust mites. Here are some other tips: ??? Wash sheets, blankets, and mattress pads every 1-2 weeks in hot water (at least 130??F). ??? Remove stuffed animals and things that collect dust, such as wall hangings, knickknacks, and books--especially in the bedroom. ??? Each week, have your home dusted with a damp cloth and vacuumed. Use HEPA (high efficiency particulate air) filters or double-ply bags in the vacuum face cleaner. ??? If someone else can???t dust and vacuum for you, take your medication before doing these tasks. Wearing a filter mask may help. Reduce Indoor Humidity Dust mites need humid (damp) air to live. Use a dehumidifier to reduce air moisture by 50%. Don???t use humidifiers, vaporizers, or evaporative (swamp) coolers. ?? [address] [place] [address]. All rights reserved. This information is not intended as a substitute for professional medical care. Always follow your healthcare professional's instructions. documented in this encounter Progress Notes Alvino Stanton M.D. - 10/04/2018 10:00 AM CDT REFERRING PROVIDER Reema Olivas P.A.-C., for evaluation of allergy. CHIEF COMPLAINT/REASON FOR VISIT Chief Complaint Patient presents with ??? New Patient ? antibiotic allergies HISTORY OF PRESENT ILLNESS Felecia has a history of chronic rhinitis with asymmetric nasal obstruction, chronic right-sided maxillary sinusitis, and left-sided pulsatile tinnitus. She also has a history of multiple antibiotic allergies. RHINITIS AND CONJUNCTIVITIS: Currently using saline nasal spray as needed. EYES: No eye itching. NOSE: Frequent right-sided nasal obstruction, with mild intermittent left-sided nasal obstruction. Minimal runny nose. Frequent postnasal drip, sneezing, and nasal itching. Frequent sinus pressure and pain in right upper face (right cheek, right forehead, and behind right eye). Occasional tenderness in left eyebrow, but sinus pain is mostly limited to right upper face. Frequent bilateral ear congestion and left-sided pulsatile tinnitus. It is not clear why pulsatile tinnitus is on the opposite side from where she has chronic sinus infections. Both sinusitis symptoms and tinnitus improve partially and temporarily with antibiotics. The mucus from her nose is usually light green, thick, sticky, and rubbery. Frequent nasal dryness. In the past, she had severe right-sided nosebleeds that required packing in the Emergency Department. No recent significant nosebleeds. Partially-diminished sense of smell. Rhinoscopy 05/11/2018 was essentially normal, with no evidence of nasal polyps, masses, or purulent discharge. Eustachian tubes appeared normal bilaterally. Audiogram 05/11/[address] temporal bones 05/13/2018 was normal, but incidental opacification was noted in right maxillary sinus. She took Augmentin for 10 days starting 05/19/2018, and subsequently took doxycycline for 14 days starting 06/03/2017. While on antibiotics, both sinus pressure and pulsatile tinnitus improved partially andtemporarily, but symptoms relapsed when antibiotics were finished. CT angiogram of head and neck 08/04/2018 showed no vascular abnormalities contributing to pulsatile tinnitus, but persistent right maxillary sinus disease was evident. CT sinus 10/04/2018 continued to show acute on chronic right maxillary sinusitis, with complete opacification of right maxillary sinus. Despite impressive chronic rightmaxillary sinus disease, the remainder of the paranasal sinuses and mastoid air cells are clear. No known head injury or nasal injury. No history of sinus surgery. She remembers having chronic right-sided nosebleeds starting around age 3. While still in grade school she remembers having chronic stuffiness, postnasal drip, sneezing, and nasal itching, and these symptoms have gradually worsened over time. She first started to notice left-sided tinnitus spring 2017, and then developed chronic right-sided facial pain and bilateral ear congestion fall 2017. She cannot think of a specific trigger which would have made symptoms worse since 2017. Nasal allergy symptoms are perennial, typically worse spring and fall. Skin testing 10/04/2018 showed allergic sensitivity to cat, dust mites, molds (Alternaria, Bipolaris, Curvularia, Fusarium, Helminthosporium, Mucor), andseasonal pollens (jered, birch, cedar, cottonwood, elm, maple, pine, sycamore, Bermuda grass). She also had equivocal reactions to cockroach, worse, and several other molds and pollens. Flonase was poorly tolerated due to worsening nosebleeds and nasal dryness. Saline sinus spray helps a little. MEDICATION ALLERGY AND/OR INTOLERANCE: The patient has been labeled allergic to ciprofloxacin, clindamycin, and gentamicin, but details about allergic reactions to antibiotics are unclear. The patient recalls having an allergic reaction to an antibiotic while hospitalized for a kidney infection when in high school. She clearly remembers high school friends visiting her, and she remembers being disappointed about not being able to go to [facility]. From what she remembers, an IV antibiotic was started, and within minutes she developed a burningsensation in the arm where she had the IV. This was soon followed by widespread itching, hives, throat swelling, shortness of breath, and cough. She also thinks she may have passed out. Further detailsabout the allergic reaction and subsequent treatment are unclear, and she is not even certain which antibiotic had been administered, but she remembers being told that she should avoid all antibiotics that end in ???bruno?? . A careful look at her medical record does not support this version of events, unless there is other documentation not available for review today. All of her medical records in the [facility] system specifically identify her as having ???no known medical allergies?? until 2013 (age 18), when she was admitted to the hospital for abdominal pain, back pain, and urinary tract infection. She also has a history of endometriosis and stenting for sphincter of Oddi dysfunction dating back to at least 2010, which may have contributed to abdominal pain. In any case, when she was evaluated in the Emergency Department on 2013 she was labeled as having ???no known medical allergies?? . During admission, the hospitalist mentioned that ???at the time of interview, she started to have some itchiness, which is probably secondary to ciprofloxacin. It sounds like she is allergic to Cipro?? . No further details about the reaction are mentioned. The only symptom mentioned was ???some itchiness?? , without mention of respiratory distress. Her lungs were described as ???clear to auscultation, and skin exam wasnot documented. Ciprofloxacin was discontinued and she switched to IV ceftriaxone. She was treated with ???Benadryl as needed in the setting of drug allergy. No need for steroids or epi at this time?? . In the next progress note from the same provider 12 hours later, there is no mention of rash or itching. On the discharge summary 08/20/2013 it states that ???I also told them the patient has been allergic to ciprofloxacin as she had some drug reaction while she was here after getting first shot of ciprofloxacin for which Benadryl was prescribed. At this point in time patient does not (have) any rash and is okay to be discharged home?? . I suspect that around this time, she was told that she shouldavoid all antibiotics that end in ???bruno?? . Records from [facility] 07/05/2014 described ???unclear patient report?? of allergy to ???any med that ends in BRUNO?? . Looking at other summary reports from institutions in Care Everywhere between 2013 and 2016, she is variably listed as allergic to clindamycin and/or gentamicin, but curiously ciprofloxacin allergy is only mentioned in her medical record with [facility]. We were unable to find definite records describing administration of gentamicin or clindamycin, but both gentamicin and clindamycin first appear as on the Allergy tab in her [facility] medicalrecord on 07/02/2016, without any context of what was happening 07/02/2016. Allergies to clindamycingentamicin are first mentioned in a [facility] clinic note 10/09/2016, although it is clear that she did not receive either of these medications on that date. Since then, she has been consistently labeled as allergic to gentamicin, clindamycin, and ciprofloxacin. She tolerated Augmentin and doxycycline in April 2018 and May 2018. No other suspected antibiotic allergies. OTHER ATOPIC HISTORY: Never diagnosed with or treated for asthma. No history suggestive of asthma. No history of atopic dermatitis or eczema. No history of IgE-mediated food allergy. SYSTEMS REVIEW She has obstructive sleep apnea, and sleeps with a humidified CPAP. She is careful to keep the CPAP clean of mold. No history of recurrent acid reflux or heartburn. She is not prone to chronic throat clearing, dysphagia, or globus sensation. However, the back of her throat often feels dry up above the palate, she finds it difficult to clear sticky mucus stuck above soft palate. PAST MEDICAL/SURGICAL HISTORY Patient Active Problem List Diagnosis ??? Overweight Body Mass Index 25-29.9 Adult ??? Polycystic Ovary Syndrome ??? Thyroiditis Deric's ??? Obstructive Sleep Apnea Adult ??? Migraine Headache ??? Sinusitis Chronic Maxillary ??? Rhinitis Allergic Due To Outdoor Pollen ??? Rhinitis Allergic Dust Mite ??? Rhinitis Allergic Animal ??? Pulsatile Tinnitus Left Ear SOCIAL HISTORY During the summer, the patient lives with her grandparents in [place], [place]. 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 She does not have dust mite encasements on her bedding. Lifelong nonsmoker. Past exposure to significant amounts of secondhand tobacco smoke. She has 1 dog at home. FAMILY HISTORY No family history of classic allergic conditions (asthma, rhinitis, food allergy, eczema) or immune deficiency. Her maternal grandmother has a history of hypothyroidism, but no other family history of autoimmune disease. VITAL SIGNS BP 118/62 Pulse 70 Ht 170.2 cm Wt 84.1 kg BMI 29.03 kg/m?? PHYSICAL EXAMINATION GENERAL: Alert. Pleasant. No acute distress. Good historian. HEENT: Eyes: No scleral icterus or conjunctival injection. Ears: Bilateral external auditory canals and tympanic membranes are normal with clear landmarks. Nose: Mild bilateral turbinate edema with erythematous dry nasal mucosa. Normal nasal septum. No discolored mucus. Mild tenderness over bilateral maxillary sinuses, right greater than left. Mouth: Normal dentition, oral mucosa, and gums. NECK: Supple. Shotty, tender, bilateral submandibular lymphadenopathy, more pronounced on the right,consistent with right-sided sinusitis. No palpable thyromegaly. LUNGS: Breathing comfortably without recruitment of accessory respiratory muscles. Clear to auscultation bilaterally. No wheeze, rales, or rhonchi. HEART: Regular rate and rhythm. No murmur, rub, or gallop. SKIN: No rash or significant skin abnormality. DIAGNOSTIC DATA Skin testing 10/04/2018 showed allergic sensitivity to cat, dust mites, molds (Alternaria, Bipolaris,Curvularia, Fusarium, Helminthosporium, Mucor), and seasonal pollens (jered, birch, cedar, cottonwood, elm, maple, pine, sycamore, Bermuda grass). She also had equivocal reactions to cockroach, worse, and several other molds and pollens. Panel Skin Tests Office Visit from 10/04/2018 in Department of Allergy in [place], [place] Controls Prick Control no Histamine (Initial Wheal) 4x4 F 4x4 F Glycerine (Initial Wheal) 0 Basic Panel Cat Hair 7x7 F Cockroach mix (Belarusian & Filipino) 2x2 Dog AP 0 D.F. Mite 7x7 F D. P Mite 7x7 F Horse 2x2 Alternaria Alternata 3x3 Aspergillus Fumigatus 2x2 Bipolaris Sorokiniana 5x5 f Curvularia Spicifera (Drechstera Spidfera) 3x3 Epicoccum 2x2 Fusarium 4x4 F Geotrichum 2x2 Helminthosporium 3x3 Hormodendrum/Clad (Cladostorium Cladosporioides) 2x2 F Mucor Racemosus 3x3 Penicillium Mix 2x2 F Phoma Herbarum 2x2 Pullularia 2x2 Stemphylium Solani 0 Northern Panel Cutler, White 7x7 F Chet, White 0 Birch 3x3 F Eagle, Red 4x4 F Sumner, Eastern 4x4 F Elm, Belarusian 3x3 Maple 3x3 Brisbane, Black 0 Riviera 2x2 Hocking, White 3x3 F Wills Point, Belarusian 2x3 F Bermuda 3x3 f Kentucky Blue 2x2 Orchard 0 Shon 0 Kochia 2x2 Obrien's Quarters 2x2 F Brasher Elder, Burweed 0 Mugwort, Common 0 Plantain, Danish 0 Pigweed 0 Argentine thistle 0 Short Ragweed 2x2 F Coweta, Sheep Red 2x2 F I reviewed all available visit notes and radiology results pertaining to ENT visits, sinusitis, and tinnitus. Also reviewed all available records concerning antibiotic allergy. Salient details described above. IMPRESSION/REPORT/PLAN 1. Allergic rhinitis (animal dander, dust mite, mold). Did not tolerate Flonase due to nosebleeds. Recommend trial of rhvk-vof-qyqqpoh Rhinocort, which is less drying than Flonase. Also recommend she try several gxym-zlg-uthvyui water-based nasal moisturizing gels/sprays. With her history of thick, sticky, tenacious mucus, she may benefit from Xlear nasal spray, which has xylitol and can be helpful for breaking up thick sticky mucus. Also consider saline sinus rinse, loratadine, and ketotifen eyedrops as described below. If symptoms are not controlled, consider other nasal steroid sprays, a trial of montelukast, and/or a trial of Astelin nasal spray. She is also a candidate for allergen immunothera py, but from a logistical standpoint, it would probably be best to wait until she is finished with college before starting allergy shots. 2. Persistent right maxillary sinus and left pulsatile tinnitus. It is unclear why tinnitus and sinusitis are on opposite sides. Both sinusitis symptoms and tinnitus improve partially and temporarily with antibiotics. She has complete opacification of right maxillary sinus, but other paranasal sinusesare essentially normal. The asymmetric nature of her condition raises suspicion for an anatomic abnormality underpinning chronic sinusitis and/or allergic fungal sinusitis. Her description of thick sticky tenacious mucus could be consistent with allergic fungal sinusitis. She plans to see ENT 10/05/2018, and will get further input about possible sinus surgery. In the meantime, ordered basic labs to screen for allergic fungal sinusitis and immune deficiency. If ENT feels like she has chronic bacterial maxillary sinusitis, recommend trial of Augmentin combined with prednisone, as described below. If she turns out to have allergic fungal sinusitis, then the treatment of choice will be sinus surgery and a very long slow steroid taper. Other ancillary treatments which may provide partial benefit for allergic fungal sinusitis include allergen immunotherapy to molds and/or oral antifungal medications. However, sinus surgery and systemic steroids remain the mainstay of allergic fungal sinusitis treatment. 3. Personal history of antibiotic allergy. We found a report of itching during administration of IV ciprofloxacin for hospitalization for flank pain and UTI 2013. However, details about antibiotic allergy are unclear, and at some point she was told to avoid all antibiotics that end in ???bruno. Gentamicin and clindamycin show up as medication allergies by 2017, despite the fact that we could notfind records of administration of either clindamycin or gentamicin. Reliable skin testing for gentamicin, clindamycin, and ciprofloxacin are not available (although opinions differ as to whether or notskin testing to clindamycin is useful). I asked the patient to speak with her mother and see if she can find more definitive descriptions of reactions to antibiotics. If we are unable to find more information than we already have, then it is reasonable to cautiously look at clinical allergy to each ofthese antibiotics, with possible skin testing and/or ingestion challenges. In the meantime, she tolerates Augmentin and doxycycline. 4. Screening for tuberculosis. 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 At the patient's request, ordered QuantiFERON gold blood tests since we are already ordering other blood tests for evaluation of sinusitis symptoms. Patient Instructions Consider a course of Augmentin x 21 days and prednisone taper for treatment of sinusitis, but pleasewait for ENT input before starting antibiotic and steroid. Budesonide nasal spray (generic Rhinocort) 2 sprays each nostril once daily for control of nasal symptoms. Budesonide slowly suppresses nasal inflammation. It takes a few days to start working, and up to several weeks to reach full effect, so it works best when used consistently. Budesonide nasal spray can be purchased wncq-pru-oqxhbia, without prescription. For nasal dryness and thick mucus, consider water-based, awem-tto-zevbgjd moisturizing nasal gels orsprays, such as Points, NasoGel, or Xlear. Liquid nasal moisturizers (such as Xlear) can loosen sticky,crusted mucus and promote mucus clearance. Nasal gels (such as Points or NasoGel) can soothe dry, irritated nasal membranes. Different people have different preferences, so try several brands. There is no???dose?? for nasal moisturizers, so you can use these products as often as desired. Saline sinus rinse (such as NeilMed Sinus Rinse or Neti pot) as needed to wash out thick or crusted mucus. Using a nasal rinse on a regular basis may help prevent sinus infections. Loratadine (generic, agql-vwp-kmnvqle Claritin) 10-40 mg per day as needed for itch, sneeze, runny nose, or postnasal drip. Loratadine tends to be least expensive as Member???s Jerry loratadine at [facility] or as AllerClear at [facility]. [facility] is a good place to look for inexpensive loratadine on-line. Ketotifen eyedrops (generic Zaditor/Alaway/Claritin/Zyrtec) 2-4 times per day as needed for eye itching. Eyedrops tend to be more soothing if refrigerated. Ketotifen eyedrops available edcd-auh-gynjynv, without prescription. Get blood tests. Please try to get more details about antibiotic allergies. Follow up with the Allergy Department if your symptoms are not controlled in 1 month, sooner if needed. Otherwise, follow up with the Allergy Department or your primary care provider in 1 year for renewal of any prescription medications. Call for questions or concerns. Controlling Allergens: Dust Mites Constant exposure to allergens means constant allergy symptoms. That???s why controlling or avoidingthe allergens that cause your symptoms is an important part of your treatment. If you are allergic to dust mites, the tips below may help. The more you do to keep all allergens away from your nose, thebetter you???ll feel. Dust Mite Allergy Dust mites are perhaps the most common cause of nasal allergies. These mites are microscopic organisms that live in bedding, upholstered furniture, and carpets. They thrive in warm, humid conditions. Dust mites and their waste products are the main causes of an allergic reaction to dust. House-dust mites are almost impossible to get rid of. But you can keep them under control. Make Changes to Your Home Some soft furnishings hold dust mites. To minimize the problem: ??? Choose nonfabric upholstery, like leather or vinyl. ??? Have as little carpeting as possible. ??? Enclose your mattress, box spring, and pillows in allergy-proof casings. These are available by mail order and in some stores. Mattress pads and sheets go over the encasements and are washed frequently. Mattress encasements do not need to be washed. Housecleaning Ask your doctor about special products to control dust mites. Here are some other tips: ??? Wash sheets, blankets, and mattress pads every 1-2 weeks in hot water (at least 130??F). ??? Remove stuffed animals and things that collect dust, such as wall hangings, knickknacks, and books--especially in the bedroom. ??? Each week, have your home dusted with a damp cloth and vacuumed. Use HEPA (high efficiency particulate air) filters or double-ply bags in the vacuum face cleaner. ??? If someone else can???t dust and vacuum for you, take your medication before doing these tasks. Wearing a filter mask may help. Reduce Indoor Humidity Dust mites need humid (damp) air to live. Use a dehumidifier to reduce air moisture by 50%. Don???t use humidifiers, vaporizers, or evaporative (swamp) coolers. ?? 0625-[address] [address]. All rights reserved. This information is not intended as a substitute for professional medical care. Always follow your healthcare professional's instructions. ADMINISTRATIVE BILLING At least 60 minutes was spent [id number] with the patient, and more than 50% of this time was spent on patient education, counseling, and coordination of medical care. documented in this encounter Plan of Treatment Upcoming Encounters Date Type Specialty Care Team Description 04/22/2022 Appointment Laboratory Medicine Meryl Julio M.D. [address] [place], [place] [address] (Wo rk) 04/29/2022 Office Visit Endocrinology Meryl Julio M .D. [address] [place], [place] [address] (Wo rk) documented as of this encounter Results Aspergillus fumigatus, IgG Antibodies (10/05/2018 9:42 AM CDT) athologist Signature Aspergillus 20.8 <=102 mg/L 10/06/2018 [facility] fumigatus, IgG 3:34 PM CDT [facility] [facility] Comment: ----ADDITIONAL INFORMATION---- This test was developed and its performa nce characteristics determined by [facility] in a manner co nsistent with CLIA requirements. This test has not bee n cleared or approved by the U.S. Food and Drug Admin istration. Specimen Anatomical Collection Method Collection Time Receive d Time (Source) Location / / Volume Laterality Blood (Blood, 10/05/2018 9:42 AM 10/07/19 19 Venous) CDT 10:57 AM CDT Alvino Stanton M.D. LAB BLOOD ADD-ON Performing Organization Address City/[facility]/ZIP Code Phon e Number [facility] [address] [place] [address] Dr [place] [address] [facility] Aspergillus fumigatus, IgE (10/05/2018 9:42 AM CDT) athologist Signature Aspergillus <0.35 kU/L 10/06/2018 [facility] Fumigatus, IgE 9:44 AM CDT [place] [facility] [place] [facility] Comment: Class 0 (Negative <0.35) Specimen Anatomical Collection Method Collection Time Receive d Time (Source) Location / / Volume Laterality Blood (Blood, 10/05/2018 9:42 AM 10/07/19 19 7:31 Venous) CDT AM CDT Alvino Stanton M.D. LAB BLOOD ADD-ON Performing Organization Address City/State/ZIP Code Phon e Number [facility] [address] [place], [place] [address] [facility] Immunoglobulins (IgG, IgA, and IgM) (10/05/2018 9:42 AM CDT) [facility] Method Time Signature Immunoglobulin A 134 61 - 356 10/06/2018 [facility] (IgA), S mg/dL 9:12 AM CDT [facility] Immunoglobulin M 58 37 - 286 10/06/2018 [facility] (IgM), S mg/dL 9:12 AM CDT [facility] Immunoglobulin G 791 767 1590 10/06/2018 [facility] (IgG), S mg/dL 9:32 AM CDT [facility] Specimen Anatomical Collection Method Collection Time Receive d Time (Source) Location / / Volume Laterality Blood (Blood, 10/05/2018 9:42 AM 10/07/19 19 6:05 Venous) CDT AM CDT Alvino Stanton M.D. LAB BLOOD ADD-ON Performing Organization Address City/State/ZIP Code Phon e Number [facility] [address] [place] [address] [facility] Immunoglobulin E (IgE) (10/05/2018 9:42 AM CDT) [facility] Method Time Signature Immunoglobulin E 8.8 <=214 kU/L 10/06/2018 [facility] (IgE), S 9:44 AM CDT [facility] Specimen Anatomical Collection Method Collection Time Receive d Time (Source) Location / / Volume Laterality Blood (Blood, 10/05/2018 9:42 AM 10/07/19 19 7:31 Venous) CDT AM CDT Alvino Stanton M.D. LAB BLOOD ADD-ON Performing Organization Address City/State/ZIP Code Phon e Number [facility] [address] [place] [address] [facility] Curvularia jamesata, IgE (10/05/2018 9:42 AM CDT) athologist Signature Curvularia <0.35 kU/L 10/06/2018 [facility] Lunata, IgE 9:43 AM CDT [facility] Comment: Class 0 (Negative <0.35) Specimen Anatomical Collection Method Collection Time Receive d Time (Source) Location / / Volume Laterality Blood (Blood, 10/05/2018 9:42 AM 10/07/19 19 7:31 Venous) CDT AM CDT Alvino Stanton M.D. LAB BLOOD ADD-ON Performing Organization Address City/State/ZIP Code Phon e Number [facility] [address] MED[place], [place] [address] [facility] documented in this encounter Visit Diagnoses Diagnosis Sinusitis Chronic Maxillary - Primary Pulsatile Tinnitus Left Ear Allergy Antibiotic Personal History Encounter For Screening For Respiratory Tuberculosis Rhinitis Allergic Animal Rhinitis Allergic Dust Mite Rhinitis Allergic Due To Outdoor Pollen documented in this encounter Care Teams Director Of Special Events Relationship Specialty Start Date End Date Audrey Burleson M.D. PCP - General Family Medicine 02/04/18 01/14/[address] [place] [phone] documented as of this encounter
--- OUTSIDE RECORDS SUMMARY | 2022-03-06 07:09 | XMS_ITS | Encounter Summary ---
:1995 Author Organization [facility] Address [address] [place] [address] Care Team Providers Name Role Phone Audrey Burleson M.D. Primary Care Provider [phone] Encounter Details Date Type Department Care Team Description 04/29/2018 Orders Only Department of Endocrinology in [place] Parikh M.D. [address] [phone] Social History Tobacco Use Types Packs/Day [...] or relatives? How often do you attend hinduism or cheondoism More than 4 time s per year 06/21/2021 services? 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 [address] [place], [place] [address] (Wo rk) 04/29/2022 Office Visit Endocrinology Meryl Julio M .D. [address] [place], [place] [address] (Wo rk) documented as of this encounter Visit Diagnoses Not on filedocumented in this encounter Care Teams Application Internship Relationship Specialty Start Date End Date Audrey Burleson M.D. PCP - General Family Medicine 02/04/18 01/14/[address] [place] [phone] documented as of this encounter
--- OUTSIDE RECORDS SUMMARY | 2022-03-06 07:09 | XMS_ITS | Encounter Summary ---
:1995 Author Organization [facility] Address [address] [place] [address] Care Team Providers Name Role Phone Audrey Burleson M.D. Primary Care Provider [phone] Reason for Referral MRI/CAT/PET Scan (Routine) - Closed Specialty Diagnoses / Procedures Referred By Contact Refer red To Contact Radiology Diagnoses Pulsatile Tinnitus Left Ear Reema Olivas P.A.-C. [facility] Region Procedures CT Temporal Bone without IV Contrast FL CT ORBIT/EAR/FOSSA WO CNTRST HC CT ORBIT/EAR/FOSSA WO CNTRST FL CT ORBIT/EAR/FOSSA WO CNTRST [address] [place] [address] Referral ID Status Reason Start Date Expiration Date Visits Requ ested Visits Authorized [id number] Closed 05/11/2018 05/11/2019 1 1 IFIED NURSE OPERATING ROOM Reason for Visit MRI/CAT/PET Scan (Routine) - Closed Specialty Diagnoses / Procedures Referred By Contact Refer red To Contact Radiology Diagnoses Pulsatile Tinnitus Left Ear Reema Olivas P.A.-C. [facility] Region Procedures CT Temporal Bone without IV Contrast FL CT ORBIT/EAR/FOSSA WO CNTRST HC CT ORBIT/EAR/FOSSA WO CNTRST FL CT ORBIT/EAR/FOSSA WO CNTRST [address] [place] [address] Referral ID Status Reason Start Date Expiration Date Visits Requ ested Visits Authorized [id number] Closed 05/11/2018 05/11/2019 1 1 Encounter Details Date Type Department Care Team Description 05/13/2018 Hospital Encounter Department of Reema Olivas Pulsa tile Tinnitus Radiology, [place]ell Val Left [facility] [address] [place], [place] [address] [address] [facility] [phone] [place], [place] (Work) [phone] Social History Tobacco Use [...] How often do you attend amish or zoroastrianism More than 4 time s per year [...] at Date Recorded Female 06/21/2021 12:52 PM CERTIFIED NURSE OPERATING ROOM documented as of this encounter Medications at Time of Discharge Medication Sig Dispensed Refills Start Date End Date amoxicillin-pot Take 1 tablet by 20 tablet 0 05/19/201809/2018 clavulanate (AUGMENTIN) mouth 2 (two) times 875-125 mg per tablet a day for 10 days. budesonide (RINOCORT Administer 2 sprays 8.6 g 11 201708/03/2018 AQUA) 32 mcg/actuation into each nostril 2 nasal spray (two) times a day. levothyroxine Take 1 tablet (88 90 tablet [...] exceed 30 mg in 24 hours. spironolactone TAKE 1 TABLET BY 60 tablet 5 02/12/201805/26 (ALDACTONE) 50 mg MOUTH TWICE A DAY tabletIndications: Polycystic Ovary Syndrome spironolactone 0 09/02/2017 01/04/2019 (ALDACTONE) 50 mg tablet documented as of this encounter Plan of Treatment Upcoming Encounters Date Type Specialty Care Team Description 04/22/2022 Appointment Laboratory Medicine Meryl Julio M.D. [address] [place], [place] [address] (Wo rk) 04/29/2022 Office Visit Endocrinology Meryl Julio M .D. [address] [place], [place] [address] (Wo rk) documented as of this encounter Procedures Procedure Name Priority Date/Time Associated Comments Diagnosis CT TEMPORAL BONE RAD - Routine 05/13/2018 4:42 Pulsatile Results for this WITHOUT IV (most inpatients PM CERTIFIED NURSE OPERATING ROOM Tinnitus Left Ear proced ure are in CONTRAST and all the results outpatients) section. documented in this encounter Results CT Temporal Bone without IV Contrast (05/13/2018 4:42 PM CERTIFIED NURSE OPERATING ROOM) Anatomical Region Laterality Modality Head, Neuroradiology RST LOS, Neuroradiology ARZ LOS, N/A Computed Tomography Neuroradiology FLA LOS Specimen (Source) Anatomical Collection Method Collection Time Re ceived Time Location / / Volume Laterality 05/16/2018 11:50 AM CERTIFIED NURSE OPERATING ROOM Impressions 05/16/2018 11:52 AM CERTIFIED NURSE OPERATING ROOM IMPRESSION: Normal CT temporal bones Narrative 05/16/2018 11:52 AM CERTIFIED NURSE OPERATING ROOM EXAM: CT TEMPORAL BONE WITHOUT IV CONTRAST COMPARISON: None FINDINGS: On the right, the external aud itory canal is widely patent. There is no thickening of the tympanic membrane. The ossicular chain is intact. The middle ear cavity and mastoid are clear. The bony labyrinth is intact. The semicircular canals and cochlea are well formed and show no evidence of congenital malformation. The internal au ditory canal is not widened. The cochlear and vestibular aqueducts are no t enlarged. No enlarged carotid or jugular bulb foramina is seen. On the left, the external auditory canal is widely patent. There is no thickening of the tympanic membrane. The ossicular chain is intact. The middle ear cavity and mastoid are clear. The bailee ny labyrinth is intact. The semicircular canals and cochlea are well formed and s how no evidence of congenital malformation. The internal auditory delvin l is not widened. The cochlear and vestibular aqueducts are not enlarged. N o enlarged carotid or jugular bulb foramina is seen. Procedure Note Jong Arriaga M.D. - 05/16/2018Forma tting of this note might be different from the original. EXAM: CT TEMPORAL BONE WITHOUT IV CONTRA ST COMPARISON: None FINDINGS: On the right, the external aud itory canal is widely patent. There is no thickening of the tympanic membrane. The ossicular chain is intact. The middle ear cavity and mastoid are clear. The bony labyrinth is intact. The semicircular canals and cochlea are well formed and show no evidence of congenital malformation. The internal au ditory canal is not widened. The cochlear and vestibular aqueducts are no t enlarged. No enlarged carotid or jugular bulb foramina is seen. On the left, the external auditory canal is widely patent. There is no thickening of the tympanic membrane. The ossicular chain is intact. The middle ear cavity and mastoid are clear. The bailee ny labyrinth is intact. The semicircular canals and cochlea are well formed and s how no evidence of congenital malformation. The internal auditory delvin l is not widened. The cochlear and vestibular aqueducts are not enlarged. N o enlarged carotid or jugular bulb foramina is seen. IMPRESSION: Normal CT temporal bones Reema Olivas P.A.-C. IMG CT PROCEDURES documented in this encounter Visit Diagnoses Diagnosis Pulsatile Tinnitus Left Ear documented in this encounter Care Teams Collection Systems Worker Relationship Specialty Start Date End Date Audrey Burleson M.D. PCP - General Family Medicine 02/04/18 01/14/[address] [place] [phone] documented as of this encounter
--- OUTSIDE RECORDS SUMMARY | 2022-03-06 07:09 | XMS_ITS | Encounter Summary ---
:1995 Author Organization [facility] Address [address] [place] [address] Care Team Providers Name Role Phone Audrey Burleson M.D. 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 [address] [place], [place] [address] (Wo rk) 04/29/2022 Office Visit Endocrinology Meryl Julio M .D. [address] [place], [place] [address] (Wo rk) documented as of this encounter Visit Diagnoses Not on filedocumented in this encounter Care Teams Business Development Sales Executive Relationship Specialty Start Date End Date Audrey Burleson M.D. PCP - General Family Medicine 02/04/18 01/14/[address] [place] [phone] documented as of this encounter
--- OUTSIDE RECORDS SUMMARY | 2022-03-06 07:09 | XMS_ITS | Encounter Summary ---
:1995 Author Organization [facility] Address [address] [place] [address] Care Team Providers Name Role Phone Audrey Burleson M.D. Primary Care Provider [phone] Reason for Visit Reason Comments Med Refill Encounter Details Date Type Department Care Team Description 06/19/2018 Refill Department of Endocrinology in [place] Parikh M.D. 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 [address] [place], [place] [address] (Wo rk) 04/29/2022 Office Visit Endocrinology Meryl Julio M .D. [address] [place], [place] [address] (Wo rk) documented as of this encounter Visit Diagnoses Diagnosis Polycystic Ovary Syndrome documented in this encounter Care Teams Paramedic Relationship Specialty Start Date End Date Audrey Burleson M.D. PCP - General Family Medicine 02/04/18 01/14/21 [address] [place] [phone] documented as of this encounter
--- OUTSIDE RECORDS SUMMARY | 2022-03-06 07:09 | XMS_ITS | Encounter Summary ---
:1995 Author Organization [facility] Address [address] [place] [address] Care Team Providers Name Role Phone Audrey Burleson M.D. Primary Care Provider [phone] Reason for Visit Reason Comments Other look at moles have changes, Appointment Request (Routine) - Closed Specialty Diagnoses / Procedures Referred By Contact Refer red To Contact Family Medicine Referral ID Status Reason Start Date Expiration Date Visits Requ ested Visits Authorized [id number] Closed 05/06/2018 05/06/2019 1 1 Encounter Details Date Type Department Care Team Description 05/07/2018 Office Visit Department of [facility] Shon Corbin Skin Benign (Primary Dx); Medicine in Bin Sneed M.D. Migrai ne Headache [place] [address] [place] [phone] Social History Tobacco Use Types [...] How often do you attend lutheran or tenriism More than 4 time s per year [...] at Date Recorded Female 06/21/2021 12:52 PM VAN LOADER documented as of this encounter Last Filed Vital Signs Vital Sign Reading Time Taken Comments Blood Pressure 120/84 05/07/2018 11:07 AM VAN LOADER Pulse 80 05/07/2018 11:07 AM VAN LOADER Temperature - - Respiratory Rate 16 05/07/2018 11:07 AM VAN LOADER Oxygen Saturation - - Inhaled Oxygen Concentration - - Weight - - Height - - Body Mass Index - - documented in this encounter Progress Notes Shon Corbin M.D. - 05/07/2018 11:15 AM CST Felecia Cardenas is a 22 y.o. female presents to clinic today for concern for some skin lesions and a refill of migraine medication. Patient states she has noted of lesion on her left ankle over the last year or so. She also has a lesion on her left posterior shoulder. None of these have changed significantly and have been present for some time. Patient has a history of migraines and has done well with the medication and would likea refill today. Patient's primary provider was Suni Stevens who has left. Current Outpatient Medications Medication Sig ??? levothyroxine (SYNTHROID, LEVOTHROID) 88 mcg tablet Take 1 tablet (88 mcg total) by mouth every morning before breakfast. ??? metFORMIN XR (GLUCOPHAGE-XR) 500 mg 24 hr tablet TAKE 2 TABLETS BY MOUTH TWICE A DAY ??? norethindrone (MICRONOR) 0.35 mg tablet Take 1 tablet (0.35 mg total) by mouth daily. ??? rizatriptan (MAXALT) 10 mg tablet May repeat in 2 hours if unresolved. Do not exceed 30 mg in 24hours. ??? spironolactone (ALDACTONE) 50 mg tablet TAKE 1 TABLET BY MOUTH TWICE A DAY ??? propranolol (for_INDERAL) 40 mg tablet TAKE 1 TABLET BY MOUTH 1 HOUR PRIOR TO PRESENTATION OR EXAMS NEEDED FOR ANXIETY Allergies Allergen Reactions ??? Ciprofloxacin Other (see comments) ??? Clindamycin Anaphylaxis ??? Fluticasone Other (see comments) ??? Gentamicin Anaphylaxis BP 120/84 Pulse 80 Resp 16 PHYSICAL EXAM Alert pleasant patient in no distress. Her left shoulder shows a benign slightly raised brownish lesion. Her left ankle shows a small granuloma. IMPRESSION/PLAN 1. Discussed with patient that both of these lesions are benign. I advised to not pick at them. We discussed that if these do bother her they can be removed easily. She will consider this. If they change she should have them removed 2. Migraine headaches. Patient has a migraine every 3-4 months. I did refill her Maxalt. 3. Discussed with patient that she should find a new PCP. We discussed our new PA Quyen Held LOADER documented in this encounter Plan of Treatment Upcoming Encounters Date Type Specialty Care Team Description 04/22/2022 Appointment Laboratory Medicine Meryl Julio M.D. [address] [place] [address] (Hector martin) 04/29/2022 Office Visit Endocrinology Meryl Julio M .D. [address] [place] [address] (Hector martin) documented as of this encounter Visit Diagnoses Diagnosis Lesion Skin Benign - Primary Migraine Headache documented in this encounter Care Teams Artificial Breast Fabricator Relationship Specialty Start Date End Date Audrey Burleson M.D. PCP - General Family Medicine 02/04/18 01/14/21 [address] [place] [phone] documented as of this encounter
--- OUTSIDE RECORDS SUMMARY | 2022-03-06 07:09 | XMS_ITS | Encounter Summary ---
:1995 Author Organization [facility] Address [address] [place] [address] Care Team Providers Name Role Phone Audrey Burleson M.D. 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 Telephone Encounter - Jeannette Bueno RSebastianN. - 08/05/2018 8:54 AM CDT She was seen in ED so probably needs sooner appt. Can cancel once [facility] appt made. Telephone Encounter - Tana De Anda - 08/05/2018 8:40 AM CDT Patient currently scheduled in [place] with Dr. Savage in October. It appears another order has been placed for the [place] [facility]. Telephone Encounter - Jeannette Buneo RSebastianN. - 08/05/2018 8:12 AM CDT FYI Telephone Encounter - Loretta Francis - 08/04/2018 3:27 PM CDT For Triage. -thanks! documented in this encounter Plan of Treatment Upcoming Encounters Date Type Specialty Care Team Description 04/22/2022 Appointment Laboratory Medicine Meryl Julio M.D. [address] [place], [place] [address] (Wo rk) 04/29/2022 Office Visit Endocrinology Meryl Julio M .D. [address] [place], [place] [address] (Wo rk) documented as of this encounter Visit Diagnoses Not on filedocumented in this encounter Care Teams Direct Marketing Executive Relationship Specialty Start Date End Date Audrey Burleson M.D. PCP - General Family Medicine 02/04/18 01/14/[address] [place] [phone] documented as of this encounter
--- OUTSIDE RECORDS SUMMARY | 2022-03-06 07:09 | XMS_ITS | Encounter Summary ---
:1995 Author Organization [facility] Address [address] [place] [address] Care Team Providers Name Role Phone Audrey Burleson M.D. 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 [address] [place], [place] [address] (Wo rk) 04/29/2022 Office Visit Endocrinology Meryl Julio M .D. [address] [place], [place] [address] (Wo rk) documented as of this encounter Visit Diagnoses Not on filedocumented in this encounter Care Teams Afternoon Babysitter Relationship Specialty Start Date End Date Audrey Burleson M.D. PCP - General Family Medicine 02/04/18 01/14/21 [address] [place] [phone] documented as of this encounter
--- OUTSIDE RECORDS SUMMARY | 2022-03-06 07:09 | XMS_ITS | Encounter Summary ---
:1995 Author Organization [facility] Address [address] [place] [address] Care Team Providers Name Role Phone Audrey Burleson M.D. Primary Care Provider [phone] Encounter Details Date Type Department Care Team Description 08/03/2018 Hospital Encounter Department of [place], Polycyst ic Ovary Syndrome; Laboratory Medicine, Willy Jimenes Thyroid itis [facility], in [address] [phone] Social History Tobacco Use Types [...] How often do you attend jewish or jain More than 4 time s [...] to pay for the very basics like LED Light Sensew hat hard 06/21/2021 food, housing, medical care, [...] at Date Recorded Female 06/21/2021 12:52 PM INFORMATION TECH documented as of this encounter Medications [...] Appointment Laboratory Medicine Meryl Julio M.D. [address] [place], [place] [address] (Wo rk) 04/29/2022 Office Visit Endocrinology Meryl Julio M .D. [address] [place], [place] [address] (Wo rk) documented as of this encounter Procedures Procedure Name Priority Date/Time Associated Diagnosis Comme nts T3 Routine 08/03/2018 3:56 PM Thyroiditis Results f or this (TRIIODOTHYRONINE), CDT Deric's procedur e are in TOT, S the results section. THYROID-STIMULATING Routine 08/03/2018 3:56 PM Thyroiditis Re sults for this HORMONE-SENSITIVE CDT [facility] procedure are in (S-TSH) the results section. T4 (THYROXINE), Routine 08/03/2018 3:56 PM Thyroiditis Result s for this FREE, S CDT [facility] procedure are i n the results section. HEMOGLOBIN A1C, B Routine 08/03/2018 3:56 PM Polycystic Ovary Results for this CDT Syndrome procedure are i n the results section. documented in this encounter Results T4, free (08/03/2018 3:56 PM CDT) P athologist Signature T4 (Thyroxine), 1.7 0.9 - 1.7 08/03/2018 [facility] Free, S ng/dL 5:19 PM T [facility] Comment: Biotin has been identified by the [...] / / Volume Laterality Blood (Blood, 08/03/2018 3:56 PM 08/04/19 19 3:59 Venous) CDT PM CDT Jalil Parikh M.D. LAB BLOOD ADD-ON Performing Organization Address City/State/ZIP Code Phon e Number [facility] [address] [place] [phone] LAB T3 (08/03/2018 3:56 PM CDT) athologist Signature T3 169 80 - 200 08/04/2018 [facility] (Triiodothyroni ng/dL 10:[address] ALIA almaraz), Total, S [facility] Specimen Anatomical Collection Method Collection Time Receive d Time (Source) Location / / Volume Laterality Blood (Blood, 08/03/2018 3:56 PM 08/05/19 19 9:24 Venous) CDT AM CDT Jalil Parikh M.D. LAB BLOOD ADD-ON Performing Organization Address City/[facility]/ZIP Code Phon e Number [facility] [address] [place], [place] [address] [facility] S-TSH (Thyroid-Stimulating Hormone - Sensitive) (08/03/2018 3:56 PM CDT) athologist [facility] TSH, Sensitive 2.2 0.3 - 4.2 08/03/2018 [facility] mIU/L 5:19 PM CDT [facility] Comment: Biotin has been identified by the [...] / / Volume Laterality Blood (Blood, 08/03/2018 3:56 PM 08/04/19 19 3:59 Venous) CDT PM CDT Jalil Parikh M.D. LAB BLOOD ADD-ON Performing Organization Address City/[facility]/ZIP Code Phon e Number [facility] [address] [place] [address] LAB Hemoglobin A1c (08/03/2018 3:56 PM CDT) athologist Signature Hemoglobin A1c, 4.8 4.2 - 5.6 08/03/2018 [facility] B % 4:36 PM CDT [facility] Specimen Anatomical Collection Method Collection Time Receive d Time (Source) Location / / Volume Laterality Blood (Blood, 08/03/2018 3:56 PM 08/04/19 19 3:59 Venous) CDT PM CDT Jalil Parikh M.D. LAB BLOOD ADD-ON Performing Organization Address City/State/[facility] Code Phon e Number [facility] [address] [place] [address] LAB documented in this encounter Visit Diagnoses Diagnosis Polycystic Ovary Syndrome Thyroiditis [facility] documented in this encounter Care Teams Junior Net Developer Relationship Specialty Start Date End Date Audrey Burleson M.D. PCP - General Family Medicine 02/04/18 01/14/21 [address] [place] [phone] documented as of this encounter
--- OUTSIDE RECORDS SUMMARY | 2022-03-06 07:09 | XMS_ITS | Encounter Summary ---
:1995 Author Organization [facility] Address [address] [place] [address] Care Team Providers Name Role Phone Audrey Burleson M.D. 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 [address] [place] [address] (Wo rk) 04/29/2022 Office Visit Endocrinology Meryl Julio M .D. [address] [place] [address] (Wo rk) documented as of this encounter Visit Diagnoses Diagnosis Polycystic Ovary Syndrome - Primary documented in this encounter Care Teams Bag Washer Relationship Specialty Start Date End Date Audrey Burleson M.D. PCP - General Family Medicine 02/04/18 01/14/[address] [place] [phone] documented as of this encounter
--- OUTSIDE RECORDS SUMMARY | 2022-03-06 07:09 | XMS_ITS | Encounter Summary ---
:1995 Author Organization [facility] Address [address] [place] [address] Care Team Providers Name Role Phone Audrey Burleson M.D. Primary Care Provider [phone] Reason for Visit Reason Comments Med Refill Encounter Details Date Type Department Care Team Description 06/24/2018 Refill Department of Endocrinology in [place] Parikh M.D. Med Refill [address] [phone] Social History Tobacco Use Types Packs/Day [...] How often do you attend jain or mu-ism More than 4 time s [...] to pay for the very basics like Ebook Gluew hat hard 06/21/2021 food, housing, medical care, [...] at Date Recorded Female 06/21/2021 12:52 PM BLASTING ENTRYMAN documented as of this encounter Plan of Treatment Upcoming Encounters Date Type Specialty Care Team Description 04/22/2022 Appointment Laboratory Medicine Meryl Julio M.D. [address] [place], [place] [address] (Wo rk) 04/29/2022 Office Visit Endocrinology Meryl Julio M .D. [address] [place], [place] [address] (Wo rk) documented as of this encounter Visit Diagnoses Not on filedocumented in this encounter Care Teams Pusher Operator Relationship Specialty Start Date End Date Audrey Burleson M.D. PCP - General Family Medicine 02/04/18 01/14/21 [address] [place] [phone] documented as of this encounter
--- OUTSIDE RECORDS SUMMARY | 2022-03-06 07:09 | XMS_ITS | Encounter Summary ---
:1995 Author Organization [facility] Address [address] [place] [address] Care Team Providers Name Role Phone Audrey Burleson M.D. Primary Care Provider [phone] Encounter Details Date Type Department Care Team Description 05/11/2018 Diagnostic Department of [place] Au.D. [address] [place] [phone] Tinn[facility] [address] [place] [phone] (Primary Dx) [place], [place] [address] [place] [phone] Social History Tobacco Use Types Packs/Day [...] How often do you attend buddhist or jain More than 4 time s [...] at Date Recorded Female 06/21/2021 12:52 PM LOOM FIXER APPRENTICE documented as of this encounter Procedure Notes Vickie Chaidez Au.D. - 05/11/2018 8:47 AM CST SUBJECTIVE CHIEF COMPLAINT / REASON FOR VISIT ?? Tinnitus in the left ear ?? Left ear otalgia HISTORY OF PRESENT COMPLAINT Ms. Felecia Cardenas is a 22 year old woman who presents for audiological evaluation. She has a whooshing tinnitus in her left ear only for the past year. She says that it is intermittent. She has noticed that if she turns her head a certain way or puts pressure on a particular part of her neck, the whooshing will stop. She sees a chiropractor about once a month for left-sided neck problems. She states that she will have pain in the morning with what feels like draining. Then her ear feels clogged for the rest of the day. She fell off of a horse in October of 2017, but primarily landed on her left shoulder. Ms. Cardenas's history was positive for noise exposure (firearm use-right handed), childhood ear infections. She denies: otorrhea, loudness intolerance, aural pressure / fullness, dizziness / imbalance, significant ototoxic medications exposure, familial hearing loss, ear or head trauma, prior ear surgery. OBJECTIVE See Audiological Evaluation Form ASSESSMENT/PLAN Otoscopy revealed clear canals with normal anatomy in both ears. Pure tone testing was performed with insert earphones, with good reliability, and showed normal hearing in both ears from 250 to 8000 Hz. The word understanding was excellent with 100% in both ears. Tympanometry was performed and showed a type As tympanogram in both ears. This is consistent with an intact and slightly stiffened tympanicmembrane. CARE PLAN ?? Follow-up with ENT as scheduled. FIXER APPRENTICE documented in this encounter Plan of Treatment Upcoming Encounters Date Type Specialty Care Team Description 04/22/2022 Appointment Laboratory Medicine Meryl Julio M.D. [address] [place], [place] [address] (Wo rk) 04/29/2022 Office Visit Endocrinology Meryl Julio M .D. [address] [place], [place] [address] (Wo rk) documented as of this encounter Procedures Procedure Name Priority Date/Time Associated Diagnosis Comme nts AUDIOLOGY EVALUATION 05/11/2018 12:00 AM LOOM FIXER APPRENTICE documented in this encounter Results AUDIOLOGY EVALUATION (05/11/2018 12:00 AM LOOM FIXER APPRENTICE) Specimen (Source) Anatomical Location Collection Method / Collectio n Time Received Time / Laterality Volume 05/11/2018 Narrative This result has an attachment that is no t available. Vickie Koenig AUDIOLOGY SERVICES ORDERABLE S documented in this encounter Visit Diagnoses Diagnosis Tinnitus Left - Primary documented in this encounter Care Teams General Sales Manager Relationship Specialty Start Date End Date Audrey Burleson M.D. PCP - General Family Medicine 02/04/18 01/14/21 [address] [place] [phone] documented as of this encounter
--- OUTSIDE RECORDS SUMMARY | 2022-03-06 07:09 | XMS_ITS | Encounter Summary ---
:1995 Author Organization [facility] Address [address] [place] [address] Care Team Providers Name Role Phone Audrey Burleson M.D. Primary Care Provider Reason for Referral MRI/CAT/PET Scan (Routine) - Closed Specialty Diagnoses / Procedures Referred By Contact Refer red To Contact Radiology Diagnoses Pulsatile Tinnitus Left Ear Hemanth Parisi P.A.-C. [facility] Region Procedures CT Temporal Bone without IV Contrast NC CT ORBIT/EAR/FOSSA WO CNTRST HC CT ORBIT/EAR/FOSSA WO CNTRST NC CT ORBIT/EAR/FOSSA WO CNTRST [address] [place] [address] Referral ID Status Reason Start Date Expiration Date Visits Requ ested Visits Authorized [id number] Closed 05/11/2018 05/11/2019 1 1 MACHINE TENDER Reason for Visit Reason Comments Ear Problem Outpatient (Routine) - Closed Specialty Diagnoses / Procedures Referred By Contact Refer red To Contact Otorhinolaryngology Diagnoses Ear Disorder Left Jalil Parikh M.D. [facility] Region [address] [place] [phone] Referral ID Status Reason Start Date Expiration Date Visits V isits Requested Authorized [id number] Closed Specialty 04/16/2018 04/16/2019 1 1 Services Required Encounter Details Date Type Department Care Team Description 05/11/2018 Comprehensive Visit Department of Justin Parisi Tinnitus Left Ear (Primary Dx); Otorhinolaryngology in Hemanth N, Ear D isorder Left; [place], [place] P.A.-C. Hypertrophy Nasal Turbinate; [address] [place] [phone] [place], [place] [phone] Social History Tobacco Use Types Packs/Day Years [...] How often do you attend adventist or scientologist More than 4 time s [...] at Date Recorded Female 06/21/2021 12:52 PM CUBE MACHINE TENDER documented as of this encounter Last Filed Vital Signs Vital Sign Reading Time Taken Comments Blood Pressure 130/84 05/11/2018 9:20 AM CUBE MACHINE TENDER Pulse 103 05/11/2018 9:20 AM CUBE MACHINE TENDER Temperature 36.7 ??C (98 ??F) 05/11/2018 9:20 AM CUBE MACHINE TENDER Respiratory Rate - - Oxygen Saturation 98% 05/11/2018 9:20 AM CUBE MACHINE TENDER Inhaled Oxygen Concentration - - Weight 87.5 kg (192 lb 14.4 oz) 05/11/2018 9:20 AM CUBE MACHINE TENDER Height - - Body Mass Index 31 04/16/2018 3:08 PM CUBE MACHINE TENDER documented in this encounter Patient Instructions Patient InstructionsHemanth Parisi P.A.-C. - 05/11/2018 9:45 AM CST Can use OTC Rhinocort (budesonide), Nasacort (triamcinolone)- Use 2 sprays twice daily for 2 weeks, then decrease to 2 sprays once daily or 1 spray twice daily Also use saline mist frequently, 4-6 times per day. MACHINE TENDER documented in this encounter Consult Notes Hemanth Parisi P.A.-C. - 05/11/2018 9:45 AM CST CHIEF COMPLAINT / REASON FOR VISIT Pulsatile tinnitus left ear HPI: Felecia Cardenas is a 22 y.o. female who presents for an evaluation of her ears at the request of Dr. Duran. She notes that she has had an 8 month history of hearing her heartbeat in her left ear. This comes and goes. It can occur at any time of the day. She notes if the noise is present it will go away if she puts pressure on her left neck or if she turns her head to the side. She felt that her hearing was decreased around Thanksgiving time. She has had some left ear pain and clear drainagefrom the left ear. She also had a sinus infection 8 months ago. She has persisted with sinus pressure and nasal congestion since that time. She feels like she can't clear the mucus from her nose. She feels her sense of smell is decreased. She notes that about a year ago she had pulsatile tinnitus thatoccurred with the sinus infection. Her sinus infections treated with antibiotics and her symptoms resolved. She has not had any antibiotics for her most recent symptoms. She has seen an outside urgent c benito, but no antibiotics were given. She denies a history of ear surgery, nasal, or sinus surgery. PAST MEDICAL HISTORY Patient Active Problem List Diagnosis ??? Body Mass Index 40.0 To 44.9 Adult (HCC) ??? Polycystic Ovary Syndrome ??? Thyroiditis Deric's Obstructive sleep apnea for which she uses CPAP. FAMILY HISTORY Family history is negative for nasal polyps or chronic sinus issues, or hearing loss at a young age in her parents or siblings. SOCIAL HISTORY Social History Substance Use Topics ??? Smoking status: Never Smoker ??? Smokeless tobacco: Never Used ??? Alcohol use No Comment: occ MEDICATIONS Current Outpatient Prescriptions: ??? levothyroxine (SYNTHROID, [...] DAY, Disp: 60 tablet, Rfl: 5 ??? budesonide (RINOCORT AQUA) 32 mcg/actuation nasal spray, Administer 2 sprays into each nostril 2(two) times a day., Disp: 8.6 g, Rfl: 11 ALLERGIES Allergies Allergen Reactions ??? Ciprofloxacin Other (see comments) ??? Clindamycin Anaphylaxis ??? Fluticasone Other (see comments) ??? Gentamicin Anaphylaxis REVIEW OF SYSTEMS Please see HPI, all remaining systems are negative. PHYSICAL EXAM Vitals: 05/11/18 0920 BP: 130/84 BP Location: Right arm Patient Position: Sitting Cuff Size: Large Pulse: 103 Temp: 36.7 ??C SpO2: 98% Weight: 87.5 kg General: Alert and oriented, No acute [...] and inferior turbinates.Septum deviated to the right. Oral cavity/oropharynx: No trismus, adequate dentition. No lesions or masses of the lips, gingiva, buccal mucosa, hard and soft palate, uvula, floor of mouth or oral tongue, tongue base, tonsillar fosse. Neck: Symmetrically soft and supple, no masses, adenopathy. Trachea midline Thyroid: No thyromegaly. Neuro/Psychiatric: Alert and oriented x 3, affect normal. Good voice quality. CN 2-12 grossly intact. The patient underwent nasal endoscopy to evaluate her nasal airway. PREOPERATIVE DIAGNOSIS: Sinus pressure, nasal obstruction POSTOPERATIVE DIAGNOSIS: Same PROCEDURE PERFORMED: Nasal endoscopy. PROCEDURALIST: Hemanth Parisi PA-C ANESTHESIA: Local FINDINGS: Bilateral nasal cavities are clear without any nasal polyps or masses. Nasopharynx is clear without masses or lesions. Eustachian tube openings appear normal bilaterally. INDICATIONS: The patient underwent nasopharyngeal endoscopy to assess the structures of the nasal cavity and the nasopharynx that could not adequately be assessed by anterior rhinoscopy or an oral exam. Particular attention was paid to the structures of the nasopharynx including the sinus openings, eustachian tube orifice and the posterior wall of the nasopharynx. The procedure itself, as well as therisks, was discussed at length with the patient. The patient agreed to proceed. PROCEDURE: The nasal passages and the nasopharynx were anesthetized with a topical application of Afrin and 4% lidocaine in a 50:50 mixture. After an appropriate interval, a 0 degree endoscope was introduced into the right side of the nose with an examination of the inferior, middle, and superior meatus. The anterior and posterior septa were examined. The choanae was examined. The scope was advance to the nasopharynx with examination of the right eustachian tube orifice, the right posterior wall of the nasopharynx, and the nasal aspect of the soft palate. The scope was then withdrawn. The a 0 degree endoscope was introduced into the left side of the nose with an examination of the inferior, middle, and superior meatus. The anterior and posterior septa were examined. The choanae was examined. The scope was advance to the nasopharynx with examination of the left eustachian tube orifice, the left posterior wall of the nasopharynx, and the nasal aspect of the soft palate. The scope was then withdrawn. Audiogram from 05/11/2018 was reviewed. It showed normal hearing across all frequencies bilaterally.Word recognition scores were excellent bilaterally. Tympanograms were type a with normal ear canal volumes. IMPRESSION Left pulsatile tinnitus Normal hearing Turbinate hypertrophy Sinus pressure PLAN I recommended she start on a nasal steroid spray. I have sent in Rhinocort to use 2 sprays each the nose twice a day for 2 weeks and then decrease this to 2 sprays once a day. Due to the pulsatile tinnitus I recommended a CT scan the temporal bones to further evaluate the middle ear space. If this is normal we will consider this CT angiogram. She will be going back to school in the beginning of May which is in [place] so we will try to complete this evaluation prior to her leaving. I explained that the nasal steroid spray will take 4-6 weeks to be effective. I have also asked her to be in using a saline nasal mist in the bilateral nasal cavities. MACHINE TENDER documented in this encounter Miscellaneous Notes Addendum Note - Hemanth Parisi P.A.-C. - 05/11/2018 9:45 AM CUBE MACHINE TENDER Addended by: HEMANTH PARISI on: 05/19/2018 01:54 PM Modules accepted: Orders MACHINE TENDER documented in this encounter Plan of Treatment Upcoming Encounters Date Type Specialty Care Team Description 04/22/2022 Appointment Laboratory Medicine Meryl Julio M.D. [address] [place] [address] ([facility]) 04/29/2022 Office Visit Endocrinology Meryl Julio M .D. [address] [place] [address] (Hector martin) documented as of this encounter Results CT Temporal Bone without IV Contrast (05/13/2018 4:42 PM CUBE MACHINE TENDER) Anatomical Region Laterality Modality Head, Neuroradiology RST LOS, Neuroradiology ARZ LOS, N/A Computed Tomography Neuroradiology FLA LOS Specimen (Source) Anatomical Collection Method Collection Time Re ceived Time Location / / Volume Laterality 05/16/2018 11:50 AM CUBE MACHINE TENDER Impressions 05/16/2018 11:52 AM CUBE MACHINE TENDER IMPRESSION: Normal CT temporal bones Narrative 05/16/2018 11:52 AM CUBE MACHINE TENDER EXAM: CT TEMPORAL BONE WITHOUT IV CONTRAST [...] is seen. IMPRESSION: Normal CT temporal bones Hemanth Parisi P.A.-C. IMG CT PROCEDURES documented in this encounter Visit Diagnoses Diagnosis Pulsatile Tinnitus Left Ear - Primary Ear Disorder Left Hypertrophy Nasal Turbinate Congestion Sinus Pulsatile Tinnitus Left Ear documented in this encounter Care Teams Maintenance And Engineering Manager Relationship Specialty Start Date End Date Audrey Burleson M.D. PCP - General Family Medicine 02/04/18 01/14/21 [address] [place] [phone] documented as of this encounter
--- OUTSIDE RECORDS SUMMARY | 2022-03-06 07:10 | XMS_ITS | Encounter Summary ---
:1995 Author Organization [facility] Address [address] [place] [address] Care Team Providers Name Role Phone Audrey Burleson M.D. Primary Care Provider [phone] Encounter Details Date Type Department Care Team Description 04/23/2018 Orders Only Department of Jyoti Orozco, Thyroiditis Endocrinology in [facility] ([place], [place] [address] [facility]) [address] [place] [phone] Social History Tobacco Use Types Packs/Day Years [...] How often do you attend buddhism or jew More than 4 time s per year [...] at Date Recorded Female 06/21/2021 12:52 PM AIRCRAFT ENGINE SPECIALIST documented as of this encounter Plan of Treatment Upcoming Encounters Date Type Specialty Care Team Description 04/22/2022 Appointment Laboratory Medicine Meryl Julio M.D. [address] [place], [place] [address] (Wo rk) 04/29/2022 Office Visit Endocrinology Meryl Julio M .D. [address] [place], [place] [address] (Wo rk) documented as of this encounter Results T4, free (08/03/2018 3:56 PM CDT) athologist Signature T4 (Thyroxine), 1.7 0.9 - 1.7 08/03/2018 [facility] Free, S ng/dL 5:19 PM CDT [facility] LAB Comment: Biotin has been identified by the landen lopes as a potential interfering substance. ??Higher concentr ations of biotin may be found in multivitamins, hair/nail supple ments, and workout supplements. ??If the result does not ma [facility] clinical observations, repeat testing after patient refrains fr om the use of supplements for at least 12 hours. Specimen Anatomical Collection Method Collection Time Receive d Time (Source) Location / / Volume Laterality Blood (Blood, 08/03/2018 3:56 PM 03/12/20 19 3:59 Venous) CDT PM CDT Jalil Parikh M.D. LAB BLOOD ADD-ON Performing Organization Address City/State/ZIP Code Phon e Number [facility] [address] [place] [address] LAB T3 (08/03/2018 3:56 PM CDT) P athologist Signature T3 169 80 - 200 08/04/2018 [facility] (Triiodothyroni ng/dL 10:[address] ALIA almaraz), Total, S [facility] Specimen Anatomical Collection Method Collection Time Receive d Time (Source) Location / / Volume Laterality Blood (Blood, 08/03/2018 3:56 PM 08/05/19 19 9:24 Venous) CDT AM CDT Jalil Parikh M.D. LAB BLOOD ADD-ON Performing Organization Address City/State/ZIP Code Phon e Number [facility] [address] [place], [place] [phone] [facility] documented in this encounter Visit Diagnoses Diagnosis Thyroiditis Deric's - Primary documented in this encounter Care Teams Medicaid Business Analyst Relationship Specialty Start Date End Date Audrey Burleson M.D. PCP - General Family Medicine 02/04/18 01/14/21 [address] [place] [address] documented as of this encounter
--- OUTSIDE RECORDS SUMMARY | 2022-03-06 07:10 | XMS_ITS | Encounter Summary ---
:1995 Author Organization [facility] Address [address] [place] [address] Care Team Providers Name Role Phone Audrey Burleson M.D. Primary Care Provider [phone] Reason for Visit Reason Comments Med Refill Encounter Details Date Type Department Care Team Description 02/11/2018 Refill Department of Endocrinology in Jyoti Jaramillo L.PSebastianNSebastian Med Refill [place], [place] [address] [facility] [address] [place], [place] [id number] [place] [phone] Social History Tobacco Use Types Packs/Day Years [...] or relatives? How often do you attend sikh or congregation More than 4 time s per year 06/21/2021 services? 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 [address] [place], [place] [address] (Wo rk) 04/29/2022 Office Visit Endocrinology Meryl Julio M .D. [address] [place], [place] [address] (Wo rk) documented as of this encounter Visit Diagnoses Not on filedocumented in this encounter Care Teams Bricklayer'S Assistant Relationship Specialty Start Date End Date Audrey Burleson M.D. PCP - General Family Medicine 02/04/18 01/14/[address] [place] [phone] documented as of this encounter
--- OUTSIDE RECORDS SUMMARY | 2022-03-06 07:10 | XMS_ITS | Encounter Summary ---
:1995 Author Organization [facility] Address [address] [place] [address] Care Team Providers Name Role Phone Suni Stevens APRN, C.N.P. Primary Care Provider Unavailabl e Encounter Details Date Type Department Care Team Description 11/16/2017 Clinical Communication Department of Jyoti Orozco, Endocrinology in [place], [place] [address] [facility] [address] [place] [phone] Social History Tobacco Use Types Packs/Day Years Used Date Smoking Tobacco: Never Smokeless Tobacco: Never Alcohol Use Standard Drinks/Week Comments Yes 0 (1 standard drink = 0.6 oz [...] or relatives? How often do you attend congregation or rastafari More than 4 time s per year 06/21/2021 services? 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 - 11/16/2017 11:08 AM CDT We are trying to get Free T4 via [facility], I am waiting on this result to make adjustment. Telephone Encounter - Jyoti Orozco L.PSebastianN. - 11/16/2017 11:04 AM CDT Felecia Wong is calling about her lab results, she LM that she is really tired and hoping to have her dose ajusted, Please advise documented in this encounter Plan of Treatment Upcoming Encounters Date Type Specialty Care Team Description 04/22/2022 Appointment Laboratory Medicine Meryl Julio M.D. [facility] [place], [place] [address] (Hector martin) 04/29/2022 Office Visit Endocrinology Meryl Julio M .D. [address] [place], [place] [address] (Hector martin) documented as of this encounter Visit Diagnoses Not on filedocumented in this encounter Care Teams Cloth Burler Relationship Specialty Start Date End Date Suni Stevens, BARBARA, C.N.P. PCP - General 03/06/17 02/03/18 documented as of this encounter
--- OUTSIDE RECORDS SUMMARY | 2022-03-06 07:10 | XMS_ITS | Encounter Summary ---
:1995 Author Organization [facility] Address [address] [place] [address] Care Team Providers Name Role Phone Suni Stevens APRN, C.N.P. Primary Care Provider Unavailabl e Encounter Details Date Type Department Care Team Description 11/19/2017 Orders Only Department of Jyoti Orozco, Thyroiditis Endocrinology in 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 [address] [place], [place] [address] (Wo rk) 04/29/2022 Office Visit Endocrinology Meryl Julio M .D. [address] [place], [place] [address] (Wo rk) documented as of this encounter Results (ABNORMAL) T4, free (01/08/2018 9:45 AM CDT) P athologist Signature T4 1.8 (H) 0.9 - 1.7 01/08/2018 [facility] (Thyroxine), ng/dL 11:31 AM CDT [facility] Comment: Biotin has been identified by the landen lopes as a potential interfering substance. ??Higher concentr ations of biotin may be found in multivitamins, hair/nail supple ments, and workout supplements. ??If the result does not ma [facility] clinical observations, repeat testing after patient refrains fr om the use of supplements for at least 12 hours. Specimen Anatomical Collection Method Collection Time Receive d Time (Source) Location / / Volume Laterality Blood (Blood, 01/08/2018 9:45 AM 01/09/20 9:53 Venous) CDT AM CDT Jalil Parikh M.D. LAB BLOOD ADD-ON Performing Organization Address City/[facility] Phon e Number [address] [address] LAB S-TSH (Thyroid-Stimulating Hormone - Sensitive) (01/08/2018 9:45 AM CDT) athologist Signature TSH, Sensitive 2.0 0.3 - 4.2 01/08/2018 [facility] mIU/L 11:31 AM CDT [facility] Comment: Biotin has been identified [...] Location / / Volume Laterality Blood (Blood, 01/08/2018 9:45 AM 01/09/20 9:53 Venous) CDT AM CDT Jalil Parikh M.D. LAB BLOOD ADD-ON Performing Organization Address City/[facility]/ZIP Code Phon e Number [address] [address] LAB documented in this encounter Visit Diagnoses Diagnosis Thyroiditis Deric's - Primary documented in this encounter Care Teams Sewing Machine Operator Floorperson Relationship Specialty Start Date End Date Suni Stevens APRN, C.N.P. PCP - General 03/06/17 02/03/18 documented as of this encounter
--- OUTSIDE RECORDS SUMMARY | 2022-03-06 07:10 | XMS_ITS | Encounter Summary ---
:1995 Author Organization [facility] Address [address] [place] [address] Care Team Providers Name Role Phone Suni Stevens APRN, C.N.P. Primary Care Provider Unavailabl e Encounter Details Date Type Department Care Team Description 11/12/2017 Orders Only Department of Jyoti Orozco, Thyroiditis Endocrinology in 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 [address] [place], [place] [address] (Wo rk) 04/29/2022 Office Visit Endocrinology Meryl Julio M .D. [address] [place], [place] [address] (Wo veronica) documented as of this encounter Results (ABNORMAL) T4 (Thyroxine), Free by Dialysis (11/13/2017 11:43 AM CDT) athologist Signature T4 2.3 (H) 0.8 - 2.0 11/18/2017 [facility] (Thyroxine), ng/dL 9:[address] Free by [facility], S Comment: ----ADDITIONAL INFORMATION---- This test was developed and its performa nce characteristics determined by [facility] in a manner consistent with CLIA requirements. This test has not been cleared or approved by the U.S. Bhavin d and Drug Administration. Specimen Anatomical Collection Method Collection Time Receive d Time (Source) Location / / Volume Laterality Blood (Blood, 11/13/2017 11:43 11/16/2017 7:46 Venous) AM CDT AM CDT Sakine Ozyurt M.D. LAB BLOOD NON ADD-ON Performing Organization Address City/State/ZIP Code Phon e Number [facility] [address] [place], [place] [address] [facility] documented in this encounter Visit Diagnoses Diagnosis Thyroiditis Deric's - Primary documented in this encounter Care Teams Bone Char Operator Relationship Specialty Start Date End Date Suni Stevens APRN, C.N.P. PCP - General 03/06/17 02/03/18 documented as of this encounter
--- OUTSIDE RECORDS SUMMARY | 2022-03-06 07:10 | XMS_ITS | Encounter Summary ---
:1995 Author Organization [facility] Address [address] [place] [address] Care Team Providers Name Role Phone Audrey Burleson M.D. 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 Telephone Encounter - Terrie Handy - 03/01/2018 7:38 AM CDT This patient has requested that she have her labs that Dr. Duran ordered for her done closer to where she is going to school. She requested that they be done in [place], [place] at the [facility]. I don't know if someone has taken care of sending the labs over there or not. Thank you. documented in this encounter Plan of Treatment Upcoming Encounters Date Type Specialty Care Team Description 04/22/2022 Appointment Laboratory Medicine Meryl Julio M.D. [facility] [place], [place] [address] (Hector martin) 04/29/2022 Office Visit Endocrinology Meryl Julio M .D. [address] [place], [place] [address] (Hector martin) documented as of this encounter Visit Diagnoses Not on filedocumented in this encounter Care Teams Chemistry Research Assistant Relationship Specialty Start Date End Date Audrey Burleson M.D. PCP - General Family Medicine 02/04/18 01/14/21 [address] [place] [phone] documented as of this encounter
--- OUTSIDE RECORDS SUMMARY | 2022-03-06 07:10 | XMS_ITS | Encounter Summary ---
:1995 Author Organization [facility] Address [address] [place] [address] Care Team Providers Name Role Phone Suni Stevens APRN, C.N.P. Primary Care Provider Unavailabl e Reason for Visit Reason Comments Other upper middle back pain fell off of a horse on 12/14/2017, have been seeing a chiro for 3 visits with no i mprovements. Encounter Details Date Type Department Care Team Description 12/24/2017 Office Visit Department of Jerry Osuna Pain B claudio Thoracic Medicine in [place] M.D. 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 - 12/24/2017 4:00 PM CDT CHIEF COMPLAINT/REASON FOR VISIT Midback pain. HISTORY OF PRESENT ILLNESS Felecia Cardenas is a 22 y.o. female who presents to clinic today complaining of mid back pain. According to her, she was bucked off and fell from a horse approximately a week ago. She states that she landed on her back. There is no head trauma or loss of consciousness. She complains that the pain started on the mid back area and radiating to the lower back. She did not seek medical attention immediately after the fall. According to her, she had fallen multiple times from horse riding. She was taking acetaminophen and Aleve alternately, utilizing cold compress for the past 1 week without significant improvement. She also saw a chiropractor in [place] at [facility], total of 3 sessions withou t significant improvement. She states that she had her back cracked without relief. The with ongoingpain, she decides to come into the clinic today for evaluation. She reports that the pain is sharp, 5/10, constant, movement exacerbates the pain, resting alleviates the pain, it radiates to the right arm. She also complains of left-sided neck pain. There is no numbness, tingling or weakness of her bilateral upper extremities. She denies low back pain or weakness of her lower extremities. She denies significant swelling, redness, open sore or significant am bruising on her lower mid back. She deniesprevious history of back surgery. MEDICATIONS Current Outpatient Medications Medication Sig ??? levothyroxine (SYNTHROID, LEVOTHROID) 100 mcg tablet Take 1 tablet (100 mcg total) by mouth every morning before breakfast. ??? metFORMIN XR (GLUCOPHAGE-XR) 500 mg 24 hr tablet Take 1 tablet (500 mg total) by mouth 2 (two) times a day. ??? norethindrone (for_MICRONOR) 0.35 mg tablet Take 1 tablet (0.35 mg total) by mouth daily. ??? propranolol (for_INDERAL) 40 mg tablet TAKE 1 TABLET BY MOUTH 1 HOUR PRIOR TO PRESENTATION OR EXAMS NEEDED FOR ANXIETY ??? spironolactone (ALDACTONE) 50 mg tablet Take 1 tablet (50 mg total) by mouth 2 (two) times a day. ??? traMADol (ULTRAM) 50 mg tablet Take 1 tablet (50 mg total) by mouth every 6 (six) hours as needed for pain. ALLERGIES Allergies Allergen Reactions ??? Ciprofloxacin Other (see comments) ??? Clindamycin Anaphylaxis ??? Fluticasone Other (see comments) ??? Gentamicin Anaphylaxis SYSTEMS REVIEW Reviewed as mentioned in HPI, the rest of the review of systems are negative. PAST MEDICAL/SURGICAL HISTORY Polycystic ovarian disease. History of Deric's thyroiditis. Hypothyroidism. Obesity with BM I31 SOCIAL HISTORY She denies smoking cigarettes. She drinks alcohol occasionally. She denies using illicit drugs. VITAL SIGNS BP 106/70 Pulse 80 Temp 36.8 ??C (Temporal) Resp 16 Wt 89.5 kg ? No BMI 31.72 kg/m?? PHYSICAL EXAMINATION GENERAL: Alert, oriented x3. No acute distress. HEENT: Neck is supple. No cervical lymphadenopathy. MUSCULOSKELETAL: Cervical spine is palpated, no bony tenderness or crepitation. She complains of tenderness on left-sided paraspinal muscle at the level of C3- C5. No erythema or ecchymosis noted. She also complains tenderness on palpation at T3-T5. There is no step-offs noted. There is no erythema, ecchymosis or open sore. There is mild tenderness on right-sided scapular region. She has good and fullrange of motion of bilateral shoulder joints. Motor strength 5/5 on bilateral upper extremities. Sensory is intact. Deep tendon reflex 1/4 on bilateral upper extremities. She has good right hand business systems advisor bilaterally. Gait is normal. EXTREMITIES: No cyanosis or edema. SKIN: No rashes. DIAGNOSTIC DATA X-ray of the thoracic spine shows no evidence of vertebral fracture. IMPRESSION/REPORT/PLAN 1. Midthoracic back pain. She is informed regarding the x-ray finding. I recommend to continue conservative management for thepain. She will continue utilizing heat or cold compress as tolerated. She is advised to continue taking NSAIDs and alternate with acetaminophen. She is prescribed Voltaren 50 mg twice daily to be takenas needed with food. On top of that, she was prescribed Flexeril 5 mg to be taken at bedtime only given the concern of unable to sleep at night due to the pain. We discussed regarding potential of his reaction of the medication including drowsiness. She is to avoid driving while taking this medication. She will be referred to see Dr. Reis for palliative care nurse as well. We discussed regarding avoiding heavy lifting or strenuous activities. If there is no improvement in 3 weeks, she should return to the clinic to be re-evaluated. She is in understanding and agreement with the plan. documented in this encounter Plan of Treatment Upcoming Encounters Date Type Specialty Care Team Description 04/22/2022 Appointment Laboratory Medicine Meryl Julio M.D. [address] [place], [place] [address] (Wo rk) 04/29/2022 Office Visit Endocrinology Meryl Julio M .D. [address] [place], [place] [address] (Wo rk) documented as of this encounter Procedures Procedure Name Priority Date/Time Associated Diagnosis Comme nts OUTSIDE LAB TESTS - REQ Routine 12/25/2017 6:58 AM CDT Pain Ba ck Thoracic ONLY documented in this encounter Results Outside Lab Tests - Req Only (12/25/2017 6:58 AM CDT) Specimen (Source) Anatomical Location Collection Method / Collectio n Time Received Time / Laterality Volume Other, Specify in Comments (Other, Specify in Comments) Narrative This result has an attachment that is no t available. Jerry Patterson M.D. LAB MISC ORDERABLES documented in this encounter Visit Diagnoses Diagnosis Pain Back Thoracic - Primary documented in this encounter Care Teams Marine Engineering Technicians Relationship Specialty Start Date End Date Suni Stevens, BARBARA, C.N.P. PCP - General 03/06/17 02/03/18 documented as of this encounter
--- OUTSIDE RECORDS SUMMARY | 2022-03-06 07:10 | XMS_ITS | Encounter Summary ---
:1995 Author Organization [facility] Address [address] [place] [address] Care Team Providers Name Role Phone Audrey Burleson M.D. Primary Care Provider [phone] Encounter Details Date Type Department Care Team Description 02/12/2018 Orders Only Department of Jyoti Orozco, Thyroiditis Endocrinology in 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 [address] [place], [place] [address] (Wo rk) 04/29/2022 Office Visit Endocrinology Meryl Julio M .D. [address] [place], [place] [address] (Wo rk) documented as of this encounter Visit Diagnoses Diagnosis Thyroiditis Deric's - Primary documented in this encounter Care Teams Manager Product Relationship Specialty Start Date End Date Audrey Burleson M.D. PCP - General Family Medicine 02/04/18 01/14/21 [address] [place] [phone] documented as of this encounter
--- OUTSIDE RECORDS SUMMARY | 2022-03-06 07:10 | XMS_ITS | Encounter Summary ---
:1995 Author Organization [facility] Address [address] [place] [address] Care Team Providers Name Role Phone Suni Stevens APRN, C.N.P. 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 cyclobenzaprine Take 1 tablet (5 mg 20 tablet 0 12/24/2017 05/07/2018 (FLEXERIL) 5 mg tablet total) by mouth at bedtime as needed for muscle spasms. levothyroxine Take 1 tablet (100 90 tablet 3 11/19/2017 (SYNTHROID, LEVOTHROID) mcg total) by mouth 100 mcg tablet every morning before breakfast. metFORMIN XR (GLUCOPHAGE 0 09/08/2017 01/04/2019 XR) 500 mg 24 hr tablet metFORMIN XR Take 1 tablet (500 180 tablet 3 12/30/201701/24 (GLUCOPHAGE-XR) 500 mg mg total) by mouth 2 24 hr tablet (two) times a day. norethindrone Take 1 tablet (0.35 28 tablet 12 08/06/2017 (for_MICRONOR) 0.35 mg mg total) by mouth tablet daily. norethindrone (MICRONOR) 0 09/06/2017 01/04/2019 0.35 mg tablet norethindrone (MICRONOR) 0 09/06/2017 01/04/2019 0.35 mg tablet propranolol TAKE 1 TABLET BY 4 06/15/2017 018 (for_INDERAL) 40 mg MOUTH 1 HOUR PRIOR tablet TO PRESENTATION OR EXAMS NEEDED FOR ANXIETY propranolol (INDERAL) 40 Take 40 mg by mouth 0 12/17/2018 mg tablet as needed. spironolactone Take 1 tablet (50 mg 60 tablet 6 11/11/2017 02/12/2018 (ALDACTONE) 50 mg total) by mouth 2 tabletIndications: (two) times a day. Polycystic Ovary Syndrome spironolactone 0 09/02/2017 01/04/2019 (ALDACTONE) 50 mg tablet documented as of this encounter Plan of Treatment Upcoming Encounters Date Type Specialty Care Team Description 04/22/2022 Appointment Laboratory Medicine Meryl Julio M.D. [address] [place], [place] [address] (Wo rk) 04/29/2022 Office Visit Endocrinology Meryl Julio M .D. [address] [place], [place] [address] (Wo rk) documented as of this encounter Procedures Procedure Name Priority Date/Time Associated Diagnosis Comme nts THYROID-STIMULATING Routine 01/08/2018 9:45 AM Thyroiditis Re sults for this HORMONE-SENSITIVE CDT Deric's procedure are in (S-TSH) the results section. T4 (THYROXINE), Routine 01/08/2018 9:45 AM Thyroiditis Result s for this FREE, S CDT Deric's procedure are i n the results section. documented in this encounter Results (ABNORMAL) T4, free (01/08/2018 9:45 AM CDT) P athologist Signature T4 1.8 (H) 0.9 - 1.7 01/08/2018 [facility] (Thyroxine), ng/dL 11:31 AM CDT [facility] LAB Comment: Biotin has been identified by the landen lopes as a potential interfering substance. ??Higher concentr ations of biotin may be found in multivitamins, hair/nail supple ments, and workout supplements. ??If the result does not ma [facility] clinical observations, repeat testing after patient refrains fr om the use of supplements for at least 12 hours. Specimen Anatomical Collection Method Collection Time Receive d Time (Source) Location / / Volume Laterality Blood (Blood, 01/08/2018 9:45 AM 01/09/20 9:53 Venous) CDT AM CDT Jalil Parikh M.D. LAB BLOOD ADD-ON Performing Organization Address [facility] Phon e Number [address] [address] LAB S-TSH (Thyroid-Stimulating Hormone - Sensitive) (01/08/2018 9:45 AM CDT) athologist Signature TSH, Sensitive 2.0 0.3 - 4.2 01/08/2018 [facility] mIU/L 11:31 AM CDT [facility] LAB Comment: Biotin has been identified by the landen lopes as a potential interfering substance. ??Higher concentr ations of biotin may be found in multivitamins, hair/nail supple ments, and workout supplements. ??If the result does not ma [facility] clinical observations, repeat testing after patient refrains fr om the use of supplements for at least 12 hours. Specimen Anatomical Collection Method Collection Time Receive d Time (Source) Location / / Volume Laterality Blood (Blood, 01/08/2018 9:45 AM 01/09/20 9:53 Venous) CDT AM CDT Jalil Parikh M.D. LAB BLOOD ADD-ON Performing Organization Address City/[facility] Phon e Number [address] [address] LAB documented in this encounter Visit Diagnoses Diagnosis Thyroiditis Deric's documented in this encounter Care Teams Maltster Relationship Specialty Start Date End Date Suni Stevens APRN, C.N.P. PCP - General 03/06/17 02/03/18 documented as of this encounter
--- OUTSIDE RECORDS SUMMARY | 2022-03-06 07:10 | XMS_ITS | Encounter Summary ---
:1995 Author Organization [facility] Address [address] [place] [address] Care Team Providers Name Role Phone Audrey Burleson M.D. Primary Care Provider [phone] Reason for Visit Reason Comments Med Refill Encounter Details Date Type Department Care Team Description 02/12/2018 Refill Department of Endocrinology in [place] Parikh M.D. Med Refill [address] [phone] Social History Tobacco Use Types Packs/Day [...] How often do you attend mosque or restorationist More than 4 time s [...] to pay for the very basics like [employer] hat hard 06/21/2021 food, housing, medical care, [...] at Date Recorded Female 06/21/2021 12:52 PM PAVER LAYER documented as of this encounter Plan of Treatment Upcoming Encounters Date Type Specialty Care Team Description 04/22/2022 Appointment Laboratory Medicine Meryl Juloi M.D. [address] [place], [place] [address] (Wo rk) 04/29/2022 Office Visit Endocrinology Meryl Julio M .D. [address] [place], [place] [address] (Wo rk) documented as of this encounter Visit Diagnoses Not on filedocumented in this encounter Care Teams Screen Printing Paster Relationship Specialty Start Date End Date Audrey Burleson M.D. PCP - General Family Medicine 02/04/18 01/14/21 [address] [place] [phone] documented as of this encounter
--- OUTSIDE RECORDS SUMMARY | 2022-03-06 07:10 | XMS_ITS | Encounter Summary ---
:1995 Author Organization [facility] Address [address] [place] [address] Care Team Providers Name Role Phone Suni Stevens APRN, C.N.P. 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 [address] [place], [place] [address] (Hector martin) 04/29/2022 Office Visit Endocrinology Meryl Julio M .D. [address] [place], [place] [address] (Hector martin) documented as of this encounter Visit Diagnoses Not on filedocumented in this encounter Care Teams Space Systems Operations Manager Relationship Specialty Start Date End Date Suni Stevens APRN, C.N.P. PCP - General 03/06/17 02/03/18 documented as of this encounter
--- OUTSIDE RECORDS SUMMARY | 2022-03-06 07:10 | XMS_ITS | Encounter Summary ---
:1995 Author Organization [facility] Address [address] [place] [address] Care Team Providers Name Role Phone Audrey Burleson M.D. 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 - 02/12/2018 11:35 AM CDT These symptoms are not very typical for stroke, I would like to check TSH and Free T4 via dialysis to make sure she is not having tachycardia due to thyroid. Telephone Encounter - Jyoti Orozco L.PSebastianN. - 02/12/2018 8:43 AM CDT Felecia Wong is also concerned about a swishing, heart beat she has in her LT ear, she is concerned that chance of stroke is increased with PCOS, any work up that would be needed she would like to do when she's home on break from school. Please advise, thanks Telephone Encounter - Jalil Duran M.D. - 02/11/2018 2:45 PM CDT She can increase Metformin to previous dose (500 mg in AM and 1000 mg in PM) , if glucose still highshe can increase the dose further to 1000 mg in AM and 1000 mg PM. Telephone Encounter - Jyoti Orozco L.P.N. - 02/10/2018 2:44 PM CDT Felecia Wong called and has been having issues with her blood sugars, feeling very thirsty and going to the bathroom a lot. Her sugars are 175 fasting 147 she has 2 semesters of school left, and working a 12 hour day 2-3 days a week getting little sleep, a good day is 6 hours. She was wondering about bumping up her Metformin, she said she takes now 500 mg 2 x day, there was a misunderstanding a few months ago she was taking 500mg in the AM and 1000 mg PM and she felt so much better, she thought you had told her that at an appt but there was no notes to that effect so she went back to the 2 x day. Please advise documented in this encounter Plan of Treatment Upcoming Encounters Date Type Specialty Care Team Description 04/22/2022 Appointment Laboratory Medicine Meryl Julio M.D. [address] [place], [place] [address] (Wo rk) 04/29/2022 Office Visit Endocrinology Meryl Julio M .D. [address] [place], [place] [address] (Wo rk) documented as of this encounter Visit Diagnoses Not on filedocumented in this encounter Care Teams Library Information Technician Relationship Specialty Start Date End Date Audrey Burleson M.D. PCP - General Family Medicine 02/04/18 01/14/21 [address] [place] [address] documented as of this encounter
--- OUTSIDE RECORDS SUMMARY | 2022-03-06 07:10 | XMS_ITS | Encounter Summary ---
:[address] [facility] Address [address] [place] [address] Care Team Providers Name Role Phone Suni Stevens APRN, C.N.P. Primary Care Provider Unavailabl e Encounter Details Date Type Department Care Team Description 01/08/2018 Orders Only Department of Jyoti Orozco, Thyroiditis Endocrinology in L.P.N. Deric's (Primary [place], [place] [address] [place] [phone] Social History Tobacco Use Types Packs/Day Years [...] How often do you attend sikh or scientologist More than 4 time s [...] at Date Recorded Female 06/21/2021 12:52 PM CHECK VIEWER documented as of this encounter Plan of Treatment Upcoming Encounters Date Type Specialty Care Team Description 04/22/2022 Appointment Laboratory Medicine Meryl Julio M.D. [address] [place], [place] [address] (Wo rk) 04/29/2022 Office Visit Endocrinology Meryl Julio M .D. [address] [place] [address] (Wo veronica) documented as of this encounter Results (ABNORMAL) T4 (Thyroxine), Free by Dialysis (04/16/2018 2:33 PM CHECK VIEWER) P athologist Signature T4 2.5 (H) 0.8 - 2.0 04/21/2018 [facility] (Thyroxine), ng/dL 11:23 AM CHECK VIEWER [address] Free by [facility] Dialysis, S Comment: ----ADDITIONAL INFORMATION---- This test was developed and its performa nce characteristics determined by [facility] in a manner consistent with CLIA requirements. This test has not been cleared or approved by the U.S. Bhavin d and Drug Administration. Specimen Anatomical Collection Method Collection Time Receive d Time (Source) Location / / Volume Laterality Blood (Blood, 04/16/2018 2:33 PM 04/19/20 18 8:20 Venous) CHECK VIEWER AM CHECK VIEWER Jalil Parikh M.D. LAB BLOOD NON ADD-ON Performing Organization Address City/[facility]/ZIP Code Phon e Number [facility] [address] [place], [place] [address] S-TSH (Thyroid-Stimulating Hormone - Sensitive) (04/16/2018 2:33 PM CHECK VIEWER) P athologist Signature TSH, Sensitive 0.9 0.3 - 4.2 04/16/2018 [facility] mIU/L 3:35 PM CHECK VIEWER [facility] LAB Comment: Biotin has been identified [...] Location / / Volume Laterality Blood (Blood, 04/16/2018 2:33 PM 04/16/20 18 2:38 Venous) CHECK VIEWER PM CHECK VIEWER Jalil Parikh M.D. LAB BLOOD ADD-ON Performing Organization Address City/[facility]/ZIP Code Phon e Number [facility] [address] [place] [address] LAB documented in this encounter Visit Diagnoses Diagnosis Thyroiditis Dreic's - Primary documented in this encounter Care Teams Resident Hall Director Relationship Specialty Start Date End Date Suni Stevens APRN, C.N.P. PCP - General 03/06/17 02/03/18 documented as of this encounter
--- OUTSIDE RECORDS SUMMARY | 2022-03-06 07:10 | XMS_ITS | Encounter Summary ---
:1995 Author Organization [facility] Address [address] [place] [address] Care Team Providers Name Role Phone Suni Stevens APRN, C.N.P. Primary Care Provider Unavailabl e Encounter Details Date Type Department Care Team Description 11/25/2017 Orders Only Department of Urology Nura Fox I nfection Urinary in [place], Ernesto dimas M.D., Ph.D. Tract (Primary Dx) [address] [facility] [address] [place], [place] [address] [phone] Social History Tobacco Use Types Packs/Day Years Used Date Smoking Tobacco: Never Smokeless Tobacco: Never Alcohol Use Standard Drinks/Week Comments Yes 0 (1 standard drink = 0.6 oz pure alcoho l) [facility] Alcohol Habits Answer Date Recorded How often [...] How often do you attend episcopal or caodaism More than 4 time s [...] at Date Recorded Female 06/21/2021 12:52 PM DEVOPS ARCHITECT documented as of this encounter Plan of Treatment Upcoming Encounters Date Type Specialty Care Team Description 04/22/2022 Appointment Laboratory Medicine Meryl Julio M.D. [address] [place] [address] (Wo rk) 04/29/2022 Office Visit Endocrinology Meryl Julio M .D. [address] [place] [address] (Wo rk) documented as of this encounter Visit Diagnoses Diagnosis Infection Urinary Tract - Primary documented in this encounter Care Teams Cellophane Worker Relationship Specialty Start Date End Date Suni Stevens APRN, C.N.P. PCP - General 03/06/17 02/03/18 documented as of this encounter
--- OUTSIDE RECORDS SUMMARY | 2022-03-06 07:10 | XMS_ITS | Encounter Summary ---
:1995 Author Organization [facility] Address [address] [place] [address] Care Team Providers Name Role Phone Suni Stevens APRN, C.N.P. 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 [address] [place], [place] [address] (Hector martin) 04/29/2022 Office Visit Endocrinology Meryl Julio M .D. [address] [place], [place] [address] (Hector martin) documented as of this encounter Visit Diagnoses Not on filedocumented in this encounter Care Teams Microelectronics Technician Relationship Specialty Start Date End Date Suni Stevens APRN, C.N.P. PCP - General 03/06/17 02/03/18 documented as of this encounter
--- OUTSIDE RECORDS SUMMARY | 2022-03-06 07:10 | XMS_ITS | Encounter Summary ---
:1995 Author Organization [facility] Address [address] [place] [address] Care Team Providers Name Role Phone Audrey Burleson M.D. Primary Care Provider [phone] Reason for Visit Reason Comments Med Refill Encounter Details Date Type Department Care Team Description 02/12/2018 Refill Department of Endocrinology in [place] Parikh M.D. Med Refill [address] [phone] Social History Tobacco Use Types Packs/Day [...] or relatives? How often do you attend judaism or anabaptist More than 4 time s per year 06/21/2021 services? Do you belong to any clubs or organizations Yes 06/21/2021 such as judaism groups, unions, fraternal or athletic groups, or [...] to pay for the very basics like [employer] hat hard 06/21/2021 food, housing, medical care, [...] Date Recorded Female 06/21/2021 12:52 PM CLAM SHOVEL OPERATOR documented as of this encounter Plan of Treatment Upcoming Encounters Date Type Specialty Care Team Description 04/22/2022 Appointment Laboratory Medicine Meryl Julio M.D. [address] [place], [place] [address] (Wo rk) 04/29/2022 Office Visit Endocrinology Meryl Julio M .D. [address] [place], [place] [address] (Wo rk) documented as of this encounter Visit Diagnoses Diagnosis Polycystic Ovary Syndrome documented in this encounter Care Teams Drug Discovery Informatics Specialist Relationship Specialty Start Date End Date Audrey Burleson M.D. PCP - General Family Medicine 02/04/18 01/14/21 [address] [place] [phone] documented as of this encounter
--- OUTSIDE RECORDS SUMMARY | 2022-03-06 07:10 | XMS_ITS | Encounter Summary ---
:1995 Author Organization [facility] Address [address] [place] [address] Care Team Providers Name Role Phone Audrey Burleson M.D. Primary Care Provider [phone] Encounter Details Date Type Department Care Team Description 04/16/2018 Hospital Encounter Department of Jl Thyroidi tis Laboratory Medicine, [facility], in [address] [address] Social History Tobacco Use Types [...] How often do you attend sabianism or spiritism More than 4 time s [...] to pay for the very basics like [employer] hat hard 06/21/2021 food, housing, medical care, [...] at Date Recorded Female 06/21/2021 12:52 PM TOOL ADJUSTER documented as of this encounter Medications at Time of Discharge Medication Sig Dispensed Refills Start Date End Date cyclobenzaprine Take 1 tablet (5 mg 20 tablet 0 12/24/2017 05/07/2018 (FLEXERIL) 5 mg tablet total) by mouth at bedtime as needed for muscle spasms. levothyroxine Take 1 tablet (100 90 tablet 1 04/07/2018 (SYNTHROID, LEVOTHROID) mcg total) by mouth 100 mcg every morning before tabletIndications: breakfast. Thyroiditis Deric's metFORMIN XR (GLUCOPHAGE 0 09/08/2017 01/04/2019 XR) 500 mg 24 hr tablet metFORMIN XR TAKE 2 TABLETS BY 120 tablet 11 02/12/201801/04 (GLUCOPHAGE-XR) 500 mg MOUTH TWICE A DAY 24 hr tablet norethindrone Take 1 tablet (0.35 28 tablet [...] 0 12/17/2018 mg tablet as needed. spironolactone TAKE 1 TABLET BY 60 tablet 5 02/12/2018/2 10/2018 (ALDACTONE) 50 mg MOUTH TWICE A DAY tabletIndications: Polycystic Ovary Syndrome spironolactone 0 09/02/2017 01/04/2019 (ALDACTONE) 50 mg tablet documented as of this encounter Plan of Treatment Upcoming Encounters Date Type Specialty Care Team Description 04/22/2022 Appointment Laboratory Medicine Meryl Julio M.D. [address] [place], [place] [address] (Wo rk) 04/29/2022 Office Visit Endocrinology Meryl Julio M .D. [address] [place], [place] [address] (Wo rk) documented as of this encounter Procedures Procedure Name Priority Date/Time Associated Diagnosis Comme nts T4 (THYROXINE), Routine 04/16/2018 2:33 PM Thyroiditis Result s for this FREE BY DIALYSIS, S TOOL ADJUSTER Deric's procedur e are in the results section. THYROID-STIMULATING Routine 04/16/2018 2:33 PM Thyroiditis Re sults for this HORMONE-SENSITIVE TOOL ADJUSTER Deric's procedure are in (S-TSH) the results section. documented in this encounter Results (ABNORMAL) T4 (Thyroxine), Free by Dialysis (04/16/2018 2:33 PM TOOL ADJUSTER) P athologist Signature T4 2.5 (H) 0.8 - 2.0 04/21/2018 [facility] (Thyroxine), ng/dL 11:23 AM TOOL ADJUSTER [address] Free by [facility] Dialysis, S Comment: ----ADDITIONAL INFORMATION---- This test was developed and its performa nce characteristics determined by [facility] in a manner consistent with CLIA requirements. This test has not been cleared or approved by the U.S. Bhavin d and Drug Administration. Specimen Anatomical Collection Method Collection Time Receive d Time (Source) Location / / Volume Laterality Blood (Blood, 04/16/2018 2:33 PM 04/19/20 18 8:20 Venous) TOOL ADJUSTER AM TOOL ADJUSTER Jalil Parikh M.D. LAB BLOOD NON ADD-ON Performing Organization Address City/State/ZIP Code Phon e Number [facility] [address] [place], [place] [address] [facility] S-TSH (Thyroid-Stimulating Hormone - Sensitive) (04/16/2018 2:33 PM TOOL ADJUSTER) P athologist Signature TSH, Sensitive 0.9 0.3 - 4.2 04/16/2018 [facility] mIU/L 3:35 PM TOOL ADJUSTER [facility] LAB Comment: Biotin has been identified [...] 04/16/2018 2:33 PM 04/16/20 18 2:38 Venous) TOOL ADJUSTER PM TOOL ADJUSTER Jalil Parikh M.D. LAB BLOOD ADD-ON Performing Organization Address City/State/ZIP Code Phon e Number [facility] [address] [place] [address] LAB documented in this encounter Visit Diagnoses Diagnosis Thyroiditis Deric's documented in this encounter Care Teams Tumbler Plater Relationship Specialty Start Date End Date Audrey Burleson M.D. PCP - General Family Medicine 02/04/18 01/14/21 [address] [place] [phone] documented as of this encounter
--- OUTSIDE RECORDS SUMMARY | 2022-03-06 07:10 | XMS_ITS | Encounter Summary ---
:1995 Author Organization [facility] Address [address] [place] [address] Care Team Providers Name Role Phone Suni Stevens APRN, C.N.P. Primary Care Provider Unavailabl e Encounter Details Date Type Department Care Team Description 11/20/2017 Hospital Encounter Department of Nura Fox, Hem aturia; Laboratory Medicine, Willy, Ph.D. 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 metFORMIN XR 0 09/08/2017 01/04/2019 (GLUCOPHAGE XR) 500 mg 24 hr tablet metFORMIN XR Take 1 tablet (500 mg 180 tablet 3 11/11/2017 0 12/30/2017 (GLUCOPHAGE-XR) 500 mg total) by mouth 2 24 hr tablet (two) times a day. norethindrone Take 1 tablet (0.35 28 tablet 12 08/06/2017 (for_MICRONOR) 0.35 mg mg total) by mouth tablet daily. norethindrone 0 09/06/2017 01/04/2019 (MICRONOR) 0.35 mg tablet norethindrone 0 09/06/2017 01/04/2019 (MICRONOR) 0.35 mg tablet propranolol TAKE 1 TABLET BY 4 06/15/2017 018 (for_INDERAL) 40 mg MOUTH 1 HOUR PRIOR TO tablet PRESENTATION OR EXAMS NEEDED FOR ANXIETY propranolol (INDERAL) Take 40 mg by mouth 0 09/0812/17/2018 40 mg tablet as needed. spironolactone Take 1 tablet (50 mg 60 tablet 6 11/11/2017 02/12/2018 (ALDACTONE) 50 mg total) by mouth 2 tabletIndications: (two) times a day. Polycystic Ovary Syndrome spironolactone 0 09/02/2017 01/04/2019 (ALDACTONE) 50 mg tablet traMADol (ULTRAM) 50 mg Take 1 tablet (50 mg 20 tablet 0 12/24/2017 tablet total) by mouth every 6 (six) hours as needed for pain. documented as of this encounter Plan of Treatment Upcoming Encounters Date Type Specialty Care Team Description 04/22/2022 Appointment Laboratory Medicine Meryl Julio M.D. [address] [place] [place], [place] [address] (Wo rk) 04/29/2022 Office Visit Endocrinology Meryl Julio M .D. [address] [place], [place] [address] (Wo rk) documented as of this encounter Procedures Procedure Name Priority Date/Time Associated Comments Diagnosis URINALYSIS WITH Routine 11/20/2017 2:51 PM Hematuria Results for this MICROSCOPIC IF CDT Pain Flank procedure are in INDICATED, U the results section. MICROSCOPIC AUTOMATED Routine 11/20/2017 2:51 PM Results for this CDT procedure are i n the results section. BACTERIAL CULTURE, Routine 11/20/2017 2:51 PM Hematuria Results for this AEROBIC + SUSC, URINE CDT Pain Flank proced ure are in the results section. documented in this encounter Results Microscopic Automated (11/20/2017 2:51 PM CDT) P athologist Signature White Blood Occ-3 /hpf 11/20/2017 [facility] Cells 3:29 PM CDT [facility] Comment: ----REFERENCE VALUE---- Males: 0-3 Females: 0-10 Unknown: 0-10 Red Blood Cells Occ-2 0 - 2 /hpf 11/20/2017 3:29 PM CDT [facility] Squamous Cells 4-10 /hpf 11/20/2017 3:29 PM CDT [facility] Specimen Anatomical Collection Method Collection Time Receive d Time (Source) Location / / Volume Laterality Urine 11/20/2017 2:51 PM 8 3:19 CDT PM CDT Nura Fox M.D., Ph.D. LAB URINE ORDERABLES Performing Organization Address City/[facility] [address]/[facility] Phon e Number [address] [address] LAB (ABNORMAL) Bacterial Culture, Aerobic + Susc, Urine (11/20/2017 2:51 PM CDT) [facility] Method Time Signature Bacterial Including Mixed 11/23/2017 [facility] Culture, jovanna. (A) 8:19 AM CDT HEALTH Aerobic, SYSTEM- Urine [facility] Bacterial ENTEROCOCCUS FAECALIS 11/23/2017 [facility] Culture, 10,000-100,000 cfu/mL 8:19 AM CDT HEALTH Aerobic, (A) SYSTEM- Urine [facility] Specimen Anatomical Collection Method Collection Time Receive d Time (Source) Location / / Volume Laterality Urine (Urine, 11/20/2017 2:51 PM 11/21/19 18 3:19 Midstream) CDT PM CDT Comment: Specimen Source Site: Urine Organism Antibiotic Method Susceptibility Enterococcus faecalis Ampicillin SUSCEPTIBILITY, LIZZY <=2 mc g/mL: Susceptible (MCG/ML) Enterococcus faecalis Gent Synergy SUSCEPTIBILITY, LIZZY SYN-S mcg/mL: Susceptible (MCG/ML) Enterococcus faecalis Strep Synergy SUSCEPTIBILITY, LIZZY SYN-S mcg/mL: Susceptible (MCG/ML) Enterococcus faecalis Ciprofloxacin SUSCEPTIBILITY, LIZZY <=0.5 mcg/mL: Susceptible (MCG/ML) Enterococcus faecalis Levofloxacin SUSCEPTIBILITY, LIZZY 0.5 mc g/mL: Susceptible (MCG/ML) Enterococcus faecalis Linezolid SUSCEPTIBILITY, LIZZY 2 mcg/ mL: Susceptible (MCG/ML) Enterococcus faecalis Daptomycin SUSCEPTIBILITY, LIZZY 4 mcg/ mL: Susceptible (MCG/ML) Enterococcus faecalis Vancomycin SUSCEPTIBILITY, LIZZY 2 mcg/ mL: Susceptible (MCG/ML) Enterococcus faecalis Tetracycline SUSCEPTIBILITY, LIZZY >=16 m cg/mL: Resistant (MCG/ML) Enterococcus faecalis Nitrofurantoin SUSCEPTIBILITY, LIZZY <=16 m cg/mL: Susceptible (MCG/ML) Nura Fox M.D., Ph.D. LAB MICROBIOLOGY - GENERAL ORDERABLES Performing Organization Address City/[facility] [address]/ZIP Code Phon e Number [address] [address] LAB (ABNORMAL) Urinalysis with Microscopic if Indicated (11/20/2017 2:51 PM CDT) P athologist Signature Source Midstream 11/20/2017 [facility] 3:29 PM CDT [facility] Clarity Clear Clear 11/20/2017 [facility] 3:29 PM CDT [facility] Color Yellow 11/20/2017 [facility] 3:29 PM CDT [facility] Comment: ----REFERENCE VALUE---- Colorless Yellow Michelle Blood Negative Negative 11/20/2017 3:29 PM CDT [facility] Nitrite Negative Negative 11/20/2017 3:29 PM CDT [facility] Leukocyte Esterase Trace (A) Negative 11/20/2017 3:29 P M CDT [facility] Protein Negative mg/dL 11/20/2017 3:29 PM CDT [facility] Comment: ----REFERENCE VALUE---- Negative Trace Glucose Negative Negative mg/dL 11/20/2017 3:29 PM CDT [facility] Ketone Negative Negative mg/dL 11/20/2017 3:29 PM CDT [facility] Bilirubin Negative Negative 11/20/2017 3:29 PM CDT [facility] pH 5.0 5.0 - 8.0 11/20/2017 3:29 PM CDT [facility] Specific [place] 1.020 1.001 - 1.035 11/20/2017 3:29 PM CDT [facility] Urobilinogen 0.2 0.2 - 1.0 11/20/2017 3:29 PM CDT [facility] Specimen Anatomical Collection Method Collection Time Receive d Time (Source) Location / / Volume Laterality Urine (Urine, 11/20/2017 2:51 PM 11/21/19 18 3:19 Clean Catch) CDT PM CDT Nura Fox M.D., Ph.D. LAB URINE ORDERABLES Performing Organization Address City/State/ZIP Code Phon e Number [facility] [address] [place] [address] LAB documented in this encounter Visit Diagnoses Diagnosis Hematuria Pain Flank documented in this encounter Care Teams Loftsman/Woman Relationship Specialty Start Date End Date Suni Stevens APRN, C.N.P. PCP - General 03/06/17 02/03/18 documented as of this encounter
--- OUTSIDE RECORDS SUMMARY | 2022-03-06 07:10 | XMS_ITS | Encounter Summary ---
:1995 Author Organization [facility] Address [address] [place] [address] Care Team Providers Name Role Phone Suni Stevens APRN, C.N.P. Primary Care Provider Unavailabl e Reason for Visit Reason Onset Date Comments Results 11/26/2017 CT Urogram results Encounter Details Date Type Department Care Team Description 11/26/2017 Clinical Department of Higinio Lim Results (CT Urogram Communication Urology in [address] [place] [address] results) [place], [place] [address] [facility] [address] [place], [place] [phone] [address] (Work) [phone] Social History Tobacco Use Types Packs/Day Years Used Date Smoking Tobacco: Never Smokeless Tobacco: Never Alcohol Use Standard Drinks/Week Comments Yes 0 (1 standard drink = 0.6 oz pure alcoho l) [facility] Alcohol Habits Answer Date Recorded How often [...] How often do you attend mormon or pentecostal More than 4 time s [...] at Date Recorded 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 - 11/26/2017 3:39 PM CDT Please let patient know that her CT urogram did not show obvious urologic causes for her pain and other symptoms. ??She may have a urinary tract infection, and I have ordered amoxicillin to her pharmacy. ??Please ask her to pickle maker in take the medication if she is having urinary symptoms. ??I encouraged her to follow- up with her primary care physician to continue working on causes of her pain. ??I would like her to return to Urology Clinic in 6 months for follow-up. ??I have placed the follow-up order to Urology Clinic as well. ??Thank you. Nura Fox M.D., Ph.D. Patient was notified of the above. She stated understanding and will pickle maker her antibiotics. Patient agreed to return to Urology in 6 months and will call to schedule this once she knows her school scheduled. No further questions at this time. documented in this encounter Plan of Treatment Upcoming Encounters Date Type Specialty Care Team Description 04/22/2022 Appointment Laboratory Medicine Meryl Julio M.D. [address] [place] [address] (Wo rk) 04/29/2022 Office Visit Endocrinology Meryl Julio M .D. [address] [place], [place] [address] (Wo rk) documented as of this encounter Visit Diagnoses Not on filedocumented in this encounter Care Teams Coroner/Medical Examiner Relationship Specialty Start Date End Date Suni Stevens APRN, C.N.P. PCP - General 03/06/17 02/03/18 documented as of this encounter
--- OUTSIDE RECORDS SUMMARY | 2022-03-06 07:10 | XMS_ITS | Encounter Summary ---
:1995 Author Organization [facility] Address [address] [place] [address] Care Team Providers Name Role Phone Audrey Burleson M.D. Primary Care Provider [phone] Reason for Visit Reason Onset Date Comments Levothyroxine 04/07/2018 Encounter Details Date Type Department Care Team Description 04/07/2018 Clinical Communication Department of [place], Nery Levo thyroxine Endocrinology in , [address] [id number] Social History Tobacco Use Types Packs/Day Years Used Date Smoking Tobacco: Never Smokeless Tobacco: Never Alcohol Use Standard Drinks/Week Comments No 0 (1 standard drink = 0.6 oz pure alcoho l) [facility] Alcohol Habits Answer Date Recorded How [...] How often do you attend mosque or scientology More than 4 time s [...] at Date Recorded 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 [address] [place] [address] (Wo rk) 04/29/2022 Office Visit Endocrinology Meryl Julio M .D. [address] [place] [address] (Wo rk) documented as of this encounter Visit Diagnoses Diagnosis Thyroiditis Deric's - Primary documented in this encounter Care Teams Plant Control Aide Relationship Specialty Start Date End Date Audrey Burleson M.D. PCP - General Family Medicine 02/04/18 01/14/21 [address] [place] [id number] documented as of this encounter
--- OUTSIDE RECORDS SUMMARY | 2022-03-06 07:10 | XMS_ITS | Encounter Summary ---
:1995 Author Organization [facility] Address [address] [place] [address] Care Team Providers Name Role Phone Audrey Burleson M.D. Primary Care Provider [phone] Reason for Referral Outpatient (Routine) - Closed Specialty Diagnoses / Procedures Referred By Contact Refer red To Contact Otorhinolaryngology Diagnoses Ear Disorder Left Jalil Parikh M.D. [address] [address] Referral ID Status Reason Start Date Expiration Date Visits V isits Requested Authorized [id number] Closed Specialty 04/16/2018 04/16/2019 1 1 Services Required [facility] Reason for Visit Reason Comments Deric's Thyroiditis Outpatient (Routine) - Closed Specialty Diagnoses / Procedures Referred By Contact Refer red To Contact Endocrinology Jalil Parikh M.D. [address] [address] Referral ID Status Reason Start Date Expiration Date Visits Requ ested Visits Authorized [id number] Closed 11/11/2017 11/11/2018 1 1 Encounter Details Date Type Department Care Team Description 04/16/2018 Office Visit Department of Jalil Parikh, Thyroiditis Deric's (Primary Dx); Endocrinology in M.D. Ear Disorde r Left; [place], [place] Polycystic Ovary Syndrome [address] [place] [address] Social History Tobacco Use Types Packs/Day [...] How often do you attend pentecostalism or rastafarian More than 4 time s per year [...] at Date Recorded Female 06/21/2021 12:52 PM [facility] documented as of this encounter Last Filed Vital Signs Vital Sign Reading Time Taken Comments Blood Pressure 122/82 04/16/2018 3:08 PM [facility] Pulse 68 04/16/2018 3:08 PM [facility] Temperature - - Respiratory Rate 16 04/16/2018 3:08 PM [facility] Oxygen Saturation - - Inhaled Oxygen Concentration - - Weight 88.5 kg (195 lb 1.7 oz) 04/16/2018 3:08 PM [facility] Height 168 cm (5' 6.14) 04/16/2018 3:08 PM [facility] Body Mass Index 31.36 04/16/2018 3:08 PM [facility] documented in this encounter Patient Instructions Patient InstructionsSeJalil oden M.D. - 04/16/2018 3:30 PM CST ENT referral. Follow up in 6 mo with pre clinic labs. [facility] documented in this encounter Progress Notes Jalil Duran M.D. - 04/16/2018 3:30 PM CST Patient Name: Felecia Cardenas [facility] [phone] Date of : 1995 CHIEF COMPLAINT PCOS, hypothyroidism HISTORY OF PRESENT ILLNESS Felecia Cardenas is a 22 y.o. female with history of sleep apnea, obesity and hypothyroidism is presenting for follow up visit. Brief hx: She was on Depo-Provera, then Ortho_cyclen however she is now on Micronor now for a while,initially had frequent periods on this but reports that for past several months, she has regular monthly periods. Acne and hair impropved as well. She is on Spironolactone 50 mg BID. She reported having elevated glucose levels up to 200s 2h postprandial on finger stick. Metformin dose was increased [id number] mg BID and this helped, gucose levels now glucose around 130 to 140 postprandial. She continuesto lose weight . She overall feels well except reports having some wooshing sound in her ears which she is experiencing since October 2017. She noticed this more significantly when she was stressed but even at rest she can feel it, this can be positional as well. Otherwise no fever or ear discharge. She has Deric Thyroiditis. She is on levothyroxine 100 mcg daily- however up until a week ago she was using levothyroxine 112 as there was a shortage on 100 mcg pill, thus she used 112 mcg tablet for a month. She reports more tremors with stress and anxiety and she also gets seldom palpitations. Patient was also concerned about Dover's syndrome (due to symptoms of muscle pain, some proximal muscle weakness, weight gain) , urine and salivary cortisol levels were normal. She also gets diarrheawith Carb rich food, she had improvement of symptoms with gluten free diet, celiac screening negative. ?? Current Outpatient Prescriptions: ??? levothyroxine (SYNTHROID, LEVOTHROID) 100 mcg tablet, Take 1 tablet (100 mcg total) by mouth every morning before breakfast., Disp: 90 tablet, Rfl: 1 ??? metFORMIN XR (GLUCOPHAGE-XR) 500 mg 24 hr tablet, TAKE 2 TABLETS BY MOUTH TWICE A DAY, Disp: 120tablet, Rfl: 11 ??? norethindrone (for_MICRONOR) 0.35 mg tablet, Take 1 tablet (0.35 mg total) by mouth daily., Disp: 28 tablet, Rfl: 12 ??? propranolol (for_INDERAL) 40 mg tablet, TAKE 1 TABLET BY MOUTH 1 HOUR PRIOR TO PRESENTATION OR EXAMS NEEDED FOR ANXIETY, Disp: , Rfl: 4 ??? spironolactone (ALDACTONE) 50 mg tablet, TAKE 1 TABLET BY MOUTH TWICE A DAY, Disp: 60 tablet, Rfl: 5 ??? cyclobenzaprine (FLEXERIL) 5 mg tablet, Take 1 tablet (5 mg total) by mouth at bedtime as neededfor muscle spasms., Disp: 20 tablet, Rfl: 0 Allergies Allergen Reactions ??? Ciprofloxacin Other (see [...] as mentioned in HPI. PHYSICAL EXAM Vitals: 04/16/18 1508 BP: 122/82 Pulse: 68 Resp: 16 Height: 168 cm Weight: 88.5 kg General: No acute distress. Eyes: Anicteric Sclera, no proptosis. ENT: Mucous membranes moist and pink. CVS: Regular rate and rhythm. No murmur. Extremities: Warm, well perfused. No tremors on outstretched hands. Neuro: Alert and oriented x 3, grossly intact. LABORATORY/DIAGNOSTICS Labs from [facility] 02/10/17 DHEA: 374 ug/dL (N [id number]) Glucose: 80 mg/dL Na: 138, K: 3.8, Crea: 0.67, BUN: 11 TSH: 1.19 Free T4: 1.7 24h urine Crea: 1.5 g/24h , volume: 1210 mL Glucose Fasting 103 mg/dL 12/04/2016 07:16 CDT (High) Gluc 2hr Glucola 136 mg/dL 12/04/2016 09:25 CDT 10/08/2017 10:04 11/11/2017 15:36 01/08/2018 09:45 04/16/2018 14:33 TSH 1.7 1.6 2.0 0.9 T4 Free, S 1.9 (H) 1.9 (H) 1.8 (H) ASSESSMENT/PLAN 1. Deric Thyroiditis She is on Levothyroxine 100 mcg daily with some improvement of symptoms (she used 112 mcg dose for a month 5 days before starting back on 100 mcg dose). She also reports seldom palpitations, has tremors more with stress. TSH is in normal range, Free T4 has been high on several testing- thus obtained Free T4 via dialysis- this is pending. Will follow up on this and adjust dose accordingly. I explained her that whooshing sound in left ear does not seem to be releated to thyroid disease,will refer to ENT. 2. PCOS/Obesity Currently on OCP, spironolactone and Metformin. She continues to lose weight. Acne and excess hair improved, she has more regular periods for past several months. She had some elevation on glucose levels which improved with increasing Metformin to 1000 mg BID dose. Will check HbA1c with next labs. Follow up in 6 mo. I discussed above in details with the patient, all questions were addressed, she showed understanding and agreed with plan. ?? I discussed above in details with the patient, she showed understanding and agreed with plan, all questions were addressed. ?? I spent 25 min with the patient, >50% on counseling and coordination of care. [facility] documented in this encounter Plan of Treatment Upcoming Encounters Date Type Specialty Care Team Description 04/22/2022 Appointment Laboratory Medicine Meryl Julio M.D. [address] [place] [address] (Wo rk) 04/29/2022 Office Visit Endocrinology Meryl Julio M .D. [address] [place] [address] (Wo rk) Scheduled Referrals Name Type Priority Associated Order Schedule Diagnoses Otorhinolaryngology - Outpatient Routine Ear Disorder Left E xpected: General non-surgical Referral 018 consult (clinic) (Approximat e), Expires: 04/16/2021 documented as of this encounter Results S-TSH (Thyroid-Stimulating Hormone - Sensitive) (08/03/2018 3:56 PM CDT) athologist Signature TSH, Sensitive 2.2 0.3 - 4.2 08/03/2018 [facility] mIU/L 5:19 PM CDT [facility] Comment: Biotin has been identified [...] Organization Address City/State/ZIP Code Phon e Number [facility] [address] LAB Hemoglobin A1c (08/03/2018 3:56 PM CDT) P athologist Signature Hemoglobin A1c, 4.8 4.2 - 5.6 08/03/2018 [facility] B % 4:36 PM CDT [facility] Specimen Anatomical Collection Method Collection Time Receive d Time (Source) Location / / Volume Laterality Blood (Blood, 08/03/2018 3:56 PM 08/04/19 19 3:59 Venous) CDT PM CDT Jalil Parikh M.D. LAB BLOOD ADD-ON Performing Organization Address City/State/ZIP Code Phon e Number [address] [address] LAB documented in this encounter Visit Diagnoses Diagnosis Thyroiditis Deric's - Primary Ear Disorder Left Polycystic Ovary Syndrome documented in this encounter Care Teams Bi Application Developer Relationship Specialty Start Date End Date Audrey Burleson M.D. PCP - General Family Medicine 02/04/18 01/14/21 [address] [facility] [place] [address] documented as of this encounter
--- OUTSIDE RECORDS SUMMARY | 2022-03-06 07:10 | XMS_ITS | Encounter Summary ---
:1995 Author Organization [facility] Address [address] [place] [address] Care Team Providers Name Role Phone Suni Stevens APRN, C.N.P. Primary Care Provider Unavailabl e Reason for Referral MRI/CAT/PET Scan (Routine) - Closed Specialty Diagnoses / Procedures Referred By Contact Refer red To Contact Radiology Diagnoses Hematuria Pain Flank Nura Fox M.D., [facility] Region Procedures CT Urogram without and with IV Contrast DE CT ABD&PELVIS WO/W CNTRST HC CT ABD&PELVIS WO/W CNTRST DE CT ABD&PELVIS WO/W CNTRST Ph.D. [address] [place] [address] Referral ID Status Reason Start Date Expiration Date Visits Requ ested Visits Authorized [id number] Closed 11/16/2017 11/16/2018 1 1 Reason for Visit MRI/CAT/PET Scan (Routine) - Closed Specialty Diagnoses / Procedures Referred By Contact Refer red To Contact Radiology Diagnoses Hematuria Pain Flank Nura Fox M.D., [facility] Region Procedures CT Urogram without and with IV Contrast DE CT ABD&PELVIS WO/W CNTRST HC CT ABD&PELVIS WO/W CNTRST DE CT ABD&PELVIS WO/W TANESHA Ph.D. [address] [place] [address] Referral ID Status Reason Start Date Expiration Date Visits Requ ested Visits Authorized [id number] Closed 11/16/2017 11/16/2018 1 1 Encounter Details Date Type Department Care Team Description 11/20/2017 Hospital Encounter Department of Nura Fox, Hem aturia; Radiology, Marta Aguilera, Ph.D. 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 [address] [place] [address] (Wo rk) 04/29/2022 Office Visit Endocrinology Meryl Julio M .D. [address] [place], [place] [address] (Wo rk) documented as of this encounter Procedures Procedure Name Priority Date/Time Associated Comments Diagnosis CT UROGRAM RAD - Routine 11/20/2017 4:45 Hematuria Results for this WITHOUT AND WITH (most inpatients PM CDT Pain Flank procedu re are in IV CONTRAST and all the results outpatients) section. documented in this encounter Results CT Urogram without and with IV Contrast (11/20/2017 4:45 PM CDT) Anatomical Region Laterality Modality Abdomen, Pelvis, Abdominal RST LOS N/A Compu cathy Tomography Specimen (Source) Anatomical Collection Method Collection Time Re ceived Time Location / / Volume Laterality 11/20/2017 4:46 PM CDT Impressions 11/20/2017 4:58 PM CDT IMPRESSION: 1. ??No suspicious urothelial lesions. N o renal or ureteral calculi. No hydronephrosis. 2. ??Status post cholecystectomy. 3. ??Scattered colonic diverticulosis, w ithout evidence of acute diverticulitis. Narrative 11/20/2017 4:58 PM CDT EXAM: CT UROGRAM WITHOUT AND WITH IV CONTRAST COMPARISON: CT abdomen pelvis from 2017 FINDINGS: No renal or ureteral calculi. No hydronephrosis. No focal renal cortical lesions. No suspicious filling defects in the renal collecting systems or opacified portions of the ureters. A segment of the distal right ureter is well opacified with contrast, partly juarez iting evaluation. No suspicious filling defects in the bladder. The imaged lung bases are clear. Mild focal fatty infiltration in the maryellen er adjacent to the falciform ligament. The gallbladder is surgically absent. Th e spleen, pancreas, and adrenal glands are unremarkable. The small bowel loops are nondilated. Th e appendix is surgically absent. Scattered colonic diverticulosis, withou t associated inflammatory changes. No intraperitoneal free air or fluid. No lymphadenopathy. No acute osseous abnormality. Nonspecifi c sclerotic focus in the left posterior iliac bone, is unchanged from prior stud ies. Procedure Note Ignacio Mcgee M.D. - 11/20/2017Formattin g of this note might be different from the original. EXAM: CT UROGRAM WITHOUT AND WITH IV CON TRAST COMPARISON: CT abdomen pelvis from 2017 FINDINGS: No renal or ureteral calculi. No hydronephrosis. No focal renal cortical lesions. No suspicious filling defects in the renal collecting systems or opacified portions of the ureters. A segment of the distal right ureter is well opacified with contrast, partly juarez iting evaluation. No suspicious filling defects in the bladder. The imaged lung bases are clear. Mild focal fatty infiltration in the maryellen er adjacent to the falciform ligament. The gallbladder is surgically absent. Th e spleen, pancreas, and adrenal glands are unremarkable. The small bowel loops are nondilated. Th e appendix is surgically absent. Scattered colonic diverticulosis, withou t associated inflammatory changes. No intraperitoneal free air or fluid. No lymphadenopathy. No acute osseous abnormality. Nonspecifi c sclerotic focus in the left posterior iliac bone, is unchanged from prior stud ies. IMPRESSION: 1. No suspicious urothelial lesions. No renal or ureteral calculi. No hydronephrosis. 2. Status post cholecystectomy. 3. Scattered colonic diverticulosis, wit hout evidence of acute diverticulitis. Nura Fox M.D., Ph.D. IMG CT PROCEDURES documented in this encounter Visit Diagnoses Diagnosis Hematuria Pain Flank documented in this encounter Administered Medications Inactive Administered Medications - up to 3 most recent administrations Medication Order MAR Action Action Date Dose Rate Site iohexol 350 mg iodine/mL solution Given 11/20/2017 4:38 PM CDT 1 00 mL 1-200 mL (OMNIPAQUE) 1-200 mL, intravenous, Once in imaging, contrast, Starting on Thu11/20/17 at 1638, For 1 dose, Imaging Protocol Orders, Dose per Radiant Medication Guidelines NaCl 0.9 % bolus 250 mL Bolus from Bag 11/20/2017 4:38 PM CDT 100 mL 250 mL, intravenous, Once in imaging, Bolus for CT scan, Starting on Thu11/20/17 at 1638, For 1 dose documented in this encounter Care Teams Fibre Cement Moulder Relationship Specialty Start Date End Date Suni Stevens, INFORMATION SYSTEMS PROJECT MANAGER, C.N.P. PCP - General 03/06/17 02/03/18 documented as of this encounter
--- OUTSIDE RECORDS SUMMARY | 2022-03-06 07:10 | XMS_ITS | Encounter Summary ---
:1995 Author Organization [facility] Address [address] [place] [address] Care Team Providers Name Role Phone Suni Stevens APRN, C.N.P. 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 - 11/13/2017 11:59 PM CDT Please inform the patient with below: Free T4 elevated on this repeat testing as well- thus would suggest hyperthyroidism, I recommend changing Levothyroxine dose to 100 mcg daily, repeat labs in 2 mo. documented in this encounter Plan of Treatment Upcoming Encounters Date Type Specialty Care Team Description 04/22/2022 Appointment Laboratory Medicine Meryl Julio M.D. [address] [place] [address] (Wo rk) 04/29/2022 Office Visit Endocrinology Meryl Julio M .D. [address] [place] [address] (Wo rk) documented as of this encounter Procedures Procedure Name Priority Date/Time Associated Diagnosis Comme nts T4 (THYROXINE), Routine 11/13/2017 11:43 AM Thyroiditis Resul ts for this FREE BY DIALYSIS, S CDT Deric's procedur e are in the results section. documented in this encounter Results (ABNORMAL) T4 (Thyroxine), Free by Dialysis (11/13/2017 11:43 AM CDT) P athologist Signature T4 2.3 (H) 0.8 - 2.0 11/18/2017 [facility] (Thyroxine), ng/dL 9:[address] Free by [facility] Dialysis, S Comment: ----ADDITIONAL INFORMATION---- This test was developed and its performa nce characteristics determined by [facility] in a manner consistent with CLIA requirements. [...] Organization Address City/State/ZIP Code Phon e Number [facility] [address] [place], [place] [address] [facility] documented in this encounter Visit Diagnoses Diagnosis Thyroiditis Deric's documented in this encounter Care Teams Behavioral Psychologist Relationship Specialty Start Date End Date Suni Stevens APRN, C.N.P. PCP - General 03/06/17 02/03/18 documented as of this encounter
--- OUTSIDE RECORDS SUMMARY | 2022-03-06 07:10 | XMS_ITS | Encounter Summary ---
:1995 Author Organization [facility] Address [address] [place] [address] Care Team Providers Name Role Phone Suni Stevens APRN, C.N.P. Primary Care Provider Unavailabl e Reason for Referral MRI/CAT/PET Scan (Routine) - Closed Specialty Diagnoses / Procedures Referred By Contact Refer red To Contact Radiology Diagnoses Hematuria Pain Flank Nura Fox M.D., [facility] Region Procedures CT Urogram without and with IV Contrast MA CT ABD&PELVIS WO/W CNTRST HC CT ABD&PELVIS WO/W CNTRST MA CT ABD&PELVIS WO/W CNTRST Ph.D. [address] [place] [id number] Referral ID Status Reason Start Date Expiration Date Visits Requ ested Visits Authorized [id number] Closed 11/16/2017 11/16/2018 1 1 Reason for Visit Reason Comments Blood in Urine Outpatient (Routine) - Closed Specialty Diagnoses / Procedures Referred By Contact Refer red To Contact Diagnoses Hematuria Pain Flank Nura Fox M.D., [facility] Region Procedures URO Cystoscopy (general) MA CYSTOURETHROSCOPY Ph.D. [address] [place] [id number] Referral ID Status Reason Start Date Expiration Date Visits Requ ested Visits Authorized [id number] Closed 11/11/2017 11/11/2018 1 1 Encounter Details Date Type Department Care Team Description 11/16/2017 Procedure visit Department of Nura Fox Pain F lank (Primary Dx); Urology in [place], Ph.D. Hematuria [place] [address] [facility] [address] [facility] [place] [phone] Social History Tobacco Use Types Packs/Day [...] or relatives? How often do you attend anglican or anabaptist More than 4 time s per year 06/21/2021 services? 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 - 11/16/2017 8:00 AM CDT Date of Service: 11/16/2017 S: Felecia Cardenas is a 22 y.o. female seen in clinic today for her history of left flank pain, gross hematuria and kidney stones as well as endometriosis. Patient had an outside CT scan, without contrast, without obvious findings per report. Today the patient endorses intermittent, occasionally severe left flank pain most recently yesterdayand the day before. This has been bad enough that she is tearful telling me about the pain. She is taking Tylenol with mixed relief. She is concerned she still may have a kidney stone.. Otherwise, she denies fevers, nausea, vomiting, flank pains, hematuria, or dysuria. Allergies Allergen Reactions ??? Ciprofloxacin Other (see comments) ??? Clindamycin Anaphylaxis ??? Fluticasone Other (see comments) ??? Gentamicin Anaphylaxis O: BP 118/70 Pulse 68 Temp 36.4 ??C Pleasant and engaging. No apparent distress. Urinalysis shows 0-2 red cells, 11 20 white cells, 11-20 squamous cells, calcium oxalate crystals. Isuspect this specimen is contaminated Creatinine, S (mg/dL) Date Value 11/09/2017 0.80 10/08/2017 0.75 10/08/2017 CANCELED I then performed cystoscopy: Female RN present as geophysical support specialist for entire exam / procedure) DIAGNOSTIC CYSTOSCOPY Date of Procedure/Service: 11/16/2017 Pre Procedure Diagnosis: hematuria Post Procedure Diagnosis: Same Anesthetic: Urethral instillation of Lidocaine Hydrochloride Jelly 2%, 20ml: Yes Description of Procedure: The patient was placed in supine position. The genital area was prepped and draped. A cystoscope waspassed and showed: Urethra: Normal Bladder: Normal. No tumors, stones, or diverticuli. The patient tolerated the procedure well. Prophylactic antibiotics per clinic protocol. Assessment: Encounter Diagnoses Name Primary? Hematuria ??? Pain Flank Yes Plan: I discussed with the patient I would like to update her urinalysis and urine culture, the specimen of which I collected through the cystoscope. Given her ongoing symptoms I will proceed with a CT urogram. We discussed I would like to include contrast in the CT scan as I am concerned she may have non urologic causes of her pain, and I would like to CT scan to be beneficial to her other medical providers. I have ordered tramadol for pain relief. I will contact the patient with further recommendations once the above testing and imaging is completed. Total visit time of 25 minutes, with greater than 50% of this time spent on giem-rp-ccia counseling and coordination of cares. This time is in addition to the cystoscopy procedure(s). Nura Fox MD PhD Date of Service: 11/16/2017 documented in this encounter Plan of Treatment Upcoming Encounters Date Type Specialty Care Team Description 04/22/2022 Appointment Laboratory Medicine Meryl Julio M.D. [address] [place] [address] (Wo rk) 04/29/2022 Office Visit Endocrinology Meryl Julio M .D. [address] [place] [address] (Wo rk) documented as of this encounter Procedures Procedure Name Priority Date/Time Associated Comments Diagnosis URINALYSIS WITH Routine 11/16/2017 9:02 AM Pain Flank Result s for this MICROSCOPIC IF CDT procedure are in INDICATED, U the results section. BACTERIAL CULTURE, Routine 11/16/2017 9:02 AM Pain Flank Res ults for this AEROBIC + SUSC, URINE CDT proced ure are in the results section. [...] Nura Fox M.D., Ph.D. IMG CT PROCEDURES (ABNORMAL) Bacterial Culture, Aerobic + Susc, Urine (11/20/2017 2:51 PM CDT) [facility] Method Time Signature Bacterial Including Mixed 11/23/2017 [facility] Culture, jovanna. (A) 8:19 AM CDT HEALTH Aerobic, SYSTEM- Urine Work4O LAB Bacterial ENTEROCOCCUS FAECALIS 11/23/2017 [facility] INIC Culture, 10,000-100,000 cfu/mL 8:19 AM CDT HEALTH Aerobic, (A) SYSTEM- Urine Work[facility] LAB Specimen Anatomical Collection Method Collection Time [...] Organization Address City/State/ZIP Code Phon e Number [facility] [address] [place] [address] LAB (ABNORMAL) Urinalysis with Microscopic if Indicated (11/20/2017 2:51 PM CDT) P athologist Signature Source Midstream 11/20/2017 [facility] 3:[address] [facility] LAB Clarity Clear Clear 11/20/2017 [facility] 3:[address] [facility] LAB Color Yellow 11/20/2017 [facility] 3:[address] [facility] LAB Comment: ----REFERENCE VALUE---- Colorless Yellow Michelle Blood Negative Negative 11/20/2017 3:29 PM CDT [facility] LAB Nitrite Negative Negative 11/20/2017 3:29 PM CDT [facility] LAB Leukocyte Esterase Trace (A) Negative 11/20/2017 3:[address] [facility] LAB Protein Negative mg/dL 11/20/2017 3:29 PM CDT [facility] LAB Comment: ----REFERENCE VALUE---- Negative Trace Glucose Negative Negative mg/dL 11/20/2017 3:29 PM CDT [facility] LAB Ketone Negative Negative mg/dL 11/20/2017 3:29 PM CDT [facility] LAB Bilirubin Negative Negative 11/20/2017 3:29 PM CDT [facility] LAB pH 5.0 5.0 - 8.0 11/20/2017 3:29 PM CDT [facility] LAB Specific [place] 1.020 1.001 - 1.035 11/20/2017 3:[address] [facility] LAB Urobilinogen 0.2 0.2 - 1.0 11/20/2017 3:[address] [facility] LAB Specimen Anatomical Collection Method Collection Time Receive d Time (Source) Location / / Volume Laterality Urine (Urine, 11/20/2017 2:51 PM 11/21/19 18 3:19 Clean Catch) CDT PM CDT Nura Fox M.D., Ph.D. LAB URINE ORDERABLES Performing Organization Address City/State/ZIP Code Phon e Number [facility] [address] [place] [address] LAB Urinalysis with Microscopic if Indicated (11/16/2017 9:02 AM CDT) P athologist Signature Source Midstream 11/16/2017 [facility] 9:[address] [facility] LAB Clarity Clear Clear 11/16/2017 [facility] 9:[address] [facility] LAB Color Yellow 11/16/2017 [facility] 9:[address] [facility] LAB Comment: ----REFERENCE VALUE---- Colorless Yellow Michelle Blood Negative Negative 11/16/2017 9:13 AM CDT [facility] Nitrite Negative Negative 11/16/2017 9:13 AM CDT [facility] LAB Leukocyte Esterase Negative Negative 11/16/2017 9:[address] [facility] LAB Protein Negative mg/dL 11/16/2017 9:13 AM CDT [facility] LAB Comment: ----REFERENCE VALUE---- Negative Trace Glucose Negative Negative mg/dL 11/16/2017 9:13 AM CDT [facility] LAB Ketone Negative Negative mg/dL 11/16/2017 9:13 AM CDT [facility] LAB Bilirubin Negative Negative 11/16/2017 9:13 AM CDT [facility] LAB pH 5.0 5.0 - 8.0 11/16/2017 9:13 AM CDT [facility] LAB Specific [place] 1.010 1.001 - 1.035 11/16/2017 9:[address] [facility] LAB Urobilinogen 0.2 0.2 - 1.0 11/16/2017 9:[address] [facility] LAB Specimen Anatomical Collection Method Collection Time Receive d Time (Source) Location / / Volume Laterality Urine (Urine, 11/16/2017 9:02 AM 11/17/19 18 9:05 Clean Catch) CDT AM CDT Nura Fox M.D., Ph.D. LAB URINE ORDERABLES Performing Organization Address City/[facility]/ZIP Code Phon e Number [facility] [address] [place] [address] LAB Bacterial Culture, Aerobic + Susc, Urine (11/16/2017 9:02 AM CDT) [facility] gist Method Time Signature Bacterial No growth 11/17/2017 [facility] Culture, after 1 day 10:59 AM CDT HEALTH Aerobic, Urine of SYSTEM- [facility] LAB Specimen Anatomical Collection Method Collection Time Receive d Time (Source) Location / / Volume Laterality Urine (Urine, 11/16/2017 9:02 AM 11/17/19 18 9:05 Midstream) CDT AM CDT Comment: Specimen Source Site: Urine Nura Fox M.D., Ph.D. LAB MICROBIOLOGY - GENERAL ORDERABLES Performing Organization Address City/State/ZIP Code Phon e Number [address] [address] LAB documented in this encounter Visit Diagnoses Diagnosis Pain Flank - Primary Hematuria Hematuria Pain Flank documented in this encounter Care Teams Wheel Roller Relationship Specialty Start Date End Date Suni Stevens APRN, C.N.P. PCP - General 03/06/17 02/03/18 documented as of this encounter
--- OUTSIDE RECORDS SUMMARY | 2022-03-06 07:11 | XMS_ITS | Encounter Summary ---
:1995 Author Organization [facility] Address [address] [place] [address] Care Team Providers Name Role Phone Suni Stevens APRN, C.N.P. Primary Care Provider Unavailabl e Reason for Visit Reason Comments Communication Encounter Details Date Type Department Care Team Description 08/10/2017 Clinical Communication Department of [facility] Antoinette Stevens ma, Communication [facility], [place], [place] [address] [place] [address] Social History Tobacco Use Types Packs/Day Years Used Date Smoking Tobacco: Never Smokeless Tobacco: Never Alcohol Use Standard Drinks/Week Comments Yes 0 (1 standard drink = 0.6 oz pure alcoho l) [facility] Alcohol Habits Answer Date Recorded How often [...] How often do you attend episcopalian or jewish More than 4 time s per year [...] to pay for the very basics like [employer] hat hard 06/21/2021 food, housing, medical care, [...] at Date Recorded Female 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 - 08/10/2017 5:02 PM CDT Called and spoke to pt and advised that she should be seen in [place] for a hematuria workup asshe states that she just started her menstrual cycle today. Pt also reports that she gets a sharp pain in her kidney area once in awhile and then it goes away. Telephone Encounter - Cony Garcia - 08/10/2017 4:52 PM CDT Communication message that does NOT pertain to Medication Refill: Offered CHRIS: Declined CHRIS: May we leave a message for you on this phone? Yes, please leave detailed message patient is in and would like a detailed message on what she should do. What can I help you with today? Patient is in School in [place] and cannot come back for an appointment soon to review lab results. Please call patient when able to discuss next steps. Thank you. Additional: DO NOT REPLY, INBOX NOT MONITORED, THANK YOU documented in this encounter Plan of Treatment Upcoming Encounters Date Type Specialty Care Team Description 04/22/2022 Appointment Laboratory Medicine Meryl Julio M.D. [address] [place], [place] [address] (Wo rk) 04/29/2022 Office Visit Endocrinology Meryl Julio M .D. [address] [place], [place] [address] (Wo rk) documented as of this encounter Visit Diagnoses Not on filedocumented in this encounter Care Teams Gasket Inspector Relationship Specialty Start Date End Date Suni Stevens APRN, C.N.P. PCP - General 03/06/17 02/03/18 documented as of this encounter
--- OUTSIDE RECORDS SUMMARY | 2022-03-06 07:11 | XMS_ITS | Encounter Summary ---
:1995 Author Organization [facility] Address [address] [place] [address] Care Team Providers Name Role Phone Suni Stevens APRN, C.N.P. Primary Care Provider Unavailabl e Encounter Details Date Type Department Care Team Description 08/20/2017 Orders Only Department of Jyoti Orozco, Thyroiditis Endocrinology in 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 [address] [place], [place] [address] (Hector martin) 04/29/2022 Office Visit Endocrinology Meryl Julio M .D. [address] [place], [place] [address] (Hector martin) documented as of this encounter Visit Diagnoses Diagnosis Thyroiditis Deric's - Primary documented in this encounter Care Teams Block Operator Relationship Specialty Start Date End Date Suni Stevens APRN, C.N.P. PCP - General 03/06/17 02/03/18 documented as of this encounter
--- OUTSIDE RECORDS SUMMARY | 2022-03-06 07:11 | XMS_ITS | Encounter Summary ---
:1995 Author Organization [facility] Address [address] [place] [address] Care Team Providers Name Role Phone Suni Stevens APRN, C.N.P. Primary Care Provider Unavailabl e Reason for Visit Reason Comments Med Refill Encounter Details Date Type Department Care Team Description 10/12/2017 Refill Department of Endocrinology in [place] Parikh M.D. 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 [address] [place], [place] [address] (Wo rk) 04/29/2022 Office Visit Endocrinology Meryl Julio M .D. [address] [place], [place] [address] (Wo rk) documented as of this encounter Visit Diagnoses Not on filedocumented in this encounter Care Teams Veterinary Bacteriologist Relationship Specialty Start Date End Date Suni Stevens APRN, C.N.P. PCP - General 03/06/17 02/03/18 documented as of this encounter
--- OUTSIDE RECORDS SUMMARY | 2022-03-06 07:11 | XMS_ITS | Encounter Summary ---
:1995 Author Organization [facility] Address [address] [place] [address] Care Team Providers Name Role Phone Suni Stevens APRN, C.N.P. Primary Care Provider Unavailabl e Encounter Details Date Type Department Care Team Description 10/13/2017 Orders Only Department of Family Suni Stevens, Elev ated Alkaline Phosphatase (Primary Dx); Medicine in [place], C.N.P. Hyperc alcemia [place] [address] [place] [address] Social History Tobacco Use Types [...] How often do you attend zoroastrianism or voodoo More than 4 time s [...] to pay for the very basics like [employer] hat hard 06/21/2021 food, housing, medical care, [...] place to sleep or slept in a long term (including now)? 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 [address] [place] [address] (Wo rk) 04/29/2022 Office Visit Endocrinology Meryl Julio M .D. [address] [place] [address] (Wo rk) documented as of this encounter Results CMP (Comprehensive Metabolic Panel) (11/09/2017 8:37 AM CDT) P athologist Signature Potassium, S 4.6 3.6 - 5.2 11/09/2017 [facility] mmol/L 9:47 AM [facility] Sodium, S 142 135 - 145 11/09/2017 [facility] mmol/L 9:47 AM [facility] Chloride, S 105 98 - 107 11/09/2017 [facility] mmol/L 9:47 AM T [facility] Bicarbonate, S 24 22 - 29 11/09/2017 [facility] mmol/L 9:47 AM [facility] Anion Gap 13 7 - 15 11/09/2017 [facility] 9:47 AM T [facility] BUN (Blood Urea 11 6 - 21 11/09/2017 [facility] Nitrogen), S mg/dL 9:47 AM [facility] Creatinine 0.80 0.59 - 11/09/2017 [facility] 1.04 mg/dL 9:47 AM [facility] eGFR-Non >90 >=60 11/09/2017 [facility] Black/ mL/min/BSA 9:47 AM [facility] Comment: ----ADDITIONAL INFORMATION---- Estimated GFR calculated using the 2009 CKD_EPI creatinine equation. eGFR-Black/ >90 >=60 mL/min/BSA 2017 9:[address] [facility] Comment: ----ADDITIONAL INFORMATION---- Estimated GFR calculated using the 2009 CKD_EPI creatinine equation. Calcium, Total, S 9.7 8.6 - 10.0 11/09/2017 9:47 AM [facility] mg/dL [facility] Glucose, S 82 70 - 140 mg/dL 11/09/2017 9:[address] [facility] Protein, Total, S 6.7 6.3 - 7.9 g/dL 11/09/2017 9:[address] [facility] Albumin, S 4.4 3.5 - 5.0 g/dL 11/09/2017 9:[address] [facility] Aspartate Aminotransferase 16 8 - 43 U/L 11/09/2017 9 :47 AM [facility] Alkaline Phosphatase, S 95 37 - 98 U/L 11/09/2017 9:[address] [facility] Alanine Aminotransferase 25 7 - 45 U/L 11/09/2017 9:4 7 AM [facility] Bilirubin, Total, S 0.3 <=1.2 mg/dL 11/09/2017 9:[address] [facility] Specimen Anatomical Collection Method Collection Time Receive d Time (Source) Location / / Volume Laterality Blood (Blood, 11/09/2017 8:37 AM 11/10/19 18 8:40 Venous) CDT AM CDT Suni Stevens APRN, C.N.P. LAB BLOOD ADD-ON Performing Organization Address City/State/ZIP Code Phon e Number [facility] [address] [place] [address] [facility] documented in this encounter Visit Diagnoses Diagnosis Elevated Alkaline Phosphatase - Primary Hypercalcemia documented in this encounter Care Teams Tape Machine Tailer Relationship Specialty Start Date End Date Suni Stevens APRN, C.N.P. PCP - General 03/06/17 02/03/18 documented as of this encounter
--- OUTSIDE RECORDS SUMMARY | 2022-03-06 07:11 | XMS_ITS | Encounter Summary ---
:1995 Author Organization [facility] Address [address] [place] [address] Care Team Providers Name Role Phone Suni Stevens APRN, C.N.P. Primary Care Provider Unavailabl e Reason for Visit Reason Comments Med Refill Encounter Details Date Type Department Care Team Description 09/08/2017 Refill Department of Endocrinology in [place] Parikh M.D. 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 [address] [place], [place] [address] (Wo rk) 04/29/2022 Office Visit Endocrinology Meryl Julio M .D. [address] [place], [place] [address] (Wo rk) documented as of this encounter Visit Diagnoses Diagnosis Polycystic Ovary Syndrome - Primary documented in this encounter Care Teams Fire Truck Driver Relationship Specialty Start Date End Date Suni Stevens APRN, C.N.P. PCP - General 03/06/17 02/03/18 documented as of this encounter
--- OUTSIDE RECORDS SUMMARY | 2022-03-06 07:11 | XMS_ITS | Encounter Summary ---
:1995 Author Organization [facility] Address [address] [place] [address] Care Team Providers Name Role Phone Suni Stevens APRN, C.N.P. Primary Care Provider Unavailabl e Encounter Details Date Type Department Care Team Description 08/06/2017 Hospital Encounter Department of Laboratory [place] Par[place], Dysuria Medicine, Specialty M.D. 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 tablet metFORMIN XR Take 2 tablets (1,000 120 tablet 11 08/06/2017 0 11/02/2017 (for_GLUCOPHAGE-XR) 500 mg total) by mouth 2 mg 24 hr tablet (two) times a day with meals. propranolol TAKE 1 TABLET BY 4 06/15/2017 018 (for_INDERAL) 40 mg MOUTH 1 HOUR PRIOR TO tablet PRESENTATION OR EXAMS NEEDED FOR ANXIETY spironolactone Take 1 tablet (50 mg 60 tablet 3 08/06/2017 09/08/2017 (for_ALDACTONE) 50 mg total) by mouth 2 tablet (two) times a day. documented as of this encounter Plan of Treatment Upcoming Encounters Date Type Specialty Care Team Description 04/22/2022 Appointment Laboratory Medicine Meryl Julio M.D. [address] [place], [place] [address] (Hector martin) 04/29/2022 Office Visit Endocrinology Meryl Julio M .D. [address] [place], [place] [address] (Hector martin) documented as of this encounter Procedures Procedure Name Priority Date/Time Associated Comments Diagnosis URINALYSIS WITH Routine 08/06/2017 11:37 Dysuria Results for this MICROSCOPIC IF AM CDT procedure are in INDICATED, U the results section. MICROSCOPIC AUTOMATED Routine 08/06/2017 11:37 Re sults for this AM CDT procedure are i n the results section. documented in this encounter Results Microscopic Automated (08/06/2017 11:37 AM CDT) Analysis Performed At Patho logist Time Signature White Blood None Seen /hpf 08/06/2017 [facility] Cells 11:58 AM CDT [facility] Comment: ----REFERENCE VALUE---- Males: 0-3 Females: 0-10 Unknown: 0-10 Red Blood Cells Occ-2 0 - 2 /hpf 08/06/2017 11:58 AM CDT [facility] Squamous Cells Occ-3 /hpf 08/06/2017 11:58 AM CDT [facility] Specimen Anatomical Collection Method Collection Time Receive d Time (Source) Location / / Volume Laterality Urine 08/06/2017 11:37 08/06/2017 AM CDT 11:49 AM CDT Jalil Parikh M.D. LAB URINE ORDERABLES Performing Organization Address City/State/ZIP Code Phon e Number [facility] [address] [place] [address] LAB (ABNORMAL) Urinalysis with Microscopic if Indicated (08/06/2017 11:37 AM CDT) P athologist Signature Source Midstream 08/06/2017 [facility] 11:58 AM T [facility] Clarity Cloudy (A) Clear 08/06/2017 [facility] 11:58 AM T [facility] Color Yellow 08/06/2017 [facility] 11:58 AM T [facility] Comment: ----REFERENCE VALUE---- Colorless Yellow Michelle Blood Moderate (A) Negative 08/06/2017 11:58 AM [facility] Nitrite Negative Negative 08/06/2017 11:58 [address] [facility] Leukocyte Esterase Negative Negative 08/06/2017 11:58 AM [facility] Protein, U Negative mg/dL 08/06/2017 11:58 AM [facility] Comment: ----REFERENCE VALUE---- Negative Trace Glucose Negative Negative mg/dL 08/06/2017 11:58 AM [facility] Ketone Negative Negative mg/dL 08/06/2017 11:58 AM [facility] Bilirubin Negative Negative 08/06/2017 11:58 AM [facility] pH >=9.0 5.0 - 8.0 08/06/2017 11:58 AM [facility] Specific [place] 1.013 1.001 - 1.035 08/06/2017 11:58 AM [facility] Urobilinogen 0.2 0.2 - 1.0 08/06/2017 11:58 AM [facility] Specimen Anatomical Collection Method Collection Time Receive d Time (Source) Location / / Volume Laterality Urine (Urine, 08/06/2017 11:37 08/06/2017 [place] [facility]) AM CDT 11:49 AM CDT Jalil Parikh M.D. LAB URINE ORDERABLES Performing Organization Address City/State/ZIP Code Phon e Number [facility] [address] [place] [address] LAB documented in this encounter Visit Diagnoses Diagnosis Dysuria documented in this encounter Care Teams Corporate Paralegal Relationship Specialty Start Date End Date Suni Stevens APRN, C.N.P. PCP - General 03/06/17 02/03/18 documented as of this encounter
--- OUTSIDE RECORDS SUMMARY | 2022-03-06 07:11 | XMS_ITS | Encounter Summary ---
:1995 Author Organization [facility] Address [address] [place] [address] Care Team Providers Name Role Phone Suni Stevens APRN, C.N.P. Primary Care Provider Unavailabl e Reason for Visit Reason Comments Flank Pain left flank pain and had CT s can done about 2 weeks ago with no stone found but did have blood in UA hernandez t she was told to follow up on. Constant pain at this time. Appointment Request (Routine) - Closed Specialty Diagnoses / Procedures Referred By Contact Refer red To Contact Family Medicine Referral ID Status Reason Start Date Expiration Date Visits Requ ested Visits Authorized [id number] Closed 10/07/2017 04/05/2018 1 1 Encounter Details Date Type Department Care Team Description 10/08/2017 Office Visit Department of Family Suni Stevens, Pain Flank (Primary Dx); Medicine in Cristina Polk APRN, C.N.P. 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 - 10/08/2017 8:00 AM CDT CHIEF COMPLAINT Flank pain Hematuria HISTORY OF PRESENT ILLNESS Felecia Cardenas is a 22 y.o. female presenting to clinic for evaluation of flank pain and hematuria. Onset of her symptoms was in July 2017. The patient reports intermittent left flank pain which is nonradiating. At the same time, she has noticed intermittent hematuria. She voices a sensation of incomplete voiding. She denies dysuria or significant urinary frequency or urgency. No incontinence. She does feel the need to strain to void at times. She has not seen any blood clots in the urine. Thehematuria does not occur when she is menstruating. She has not identified that it occurs after periods of significant exertion. She denies fevers and chills. She denies nausea and vomiting. There are no changes in stool form, frequency or caliber. No changes in vaginal discharge. Her menses are regular with use of an oral contraceptive. She does endorse mild suprapubic tenderness which is worse with palpation. She has taken ibuprofen 800 mg daily for her flank pain and also tried chiropractic therapy as well as massage with minimal relief of her symptoms. She presented to an urgent care approximately 2 weeks ago for left flank pain and hematuria. She states she had a CT scan which was negative, however her urinalysis was positive for blood. She was advised to follow up with her primary care provider. She has signed a release of information for us to obtain records from that visit. Her past medica l history is significant for polycystic ovarian cyst syndrome a and Deric's thyroiditis. No family history of kidney disease which she is aware of. Mother with a history of endometriosis. Past Medical History: Diagnosis Date ??? Body Mass Index 40.0 To 44.9 Adult ([facility]) 05/22/2016 Body mass index (BMI) 40.0-44.9, adult Rule activated problem due to BMI 40-44 posted on 05/22 at 08:45 TANK TERMINAL GAUGER. ??? Polycystic Ovary Syndrome 08/06/2017 ??? Thyroiditis Deric's 08/06/2017 Allergies Allergen Reactions ??? Ciprofloxacin Other (see comments) ??? Clindamycin Anaphylaxis ??? Fluticasone Other (see comments) ??? Gentamicin Anaphylaxis Current Outpatient Medications Medication Sig ??? levothyroxine (for_SYNTHROID, LEVOTHROID) 112 mcg tablet Take 1 tablet (112 mcg total) by mouth daily. ??? metFORMIN XR (for_GLUCOPHAGE-XR) 500 mg 24 hr tablet Take 2 tablets (1,000 mg total) by mouth 2 (two) times a day with meals. ??? norethindrone (for_MICRONOR) 0.35 mg tablet Take 1 tablet (0.35 mg total) by mouth daily. ??? propranolol (for_INDERAL) 40 mg tablet TAKE 1 TABLET BY MOUTH 1 HOUR PRIOR TO PRESENTATION OR EXAMS NEEDED FOR ANXIETY ??? spironolactone (ALDACTONE) 50 mg tablet TAKE 1 TABLET BY MOUTH TWICE A DAY ??? DULoxetine (CYMBALTA) [address] capsule Take 60 mg by mouth daily. Social History Substance Use Topics ??? Smoking status: Never Smoker ??? Smokeless tobacco: Never Used ??? Alcohol use Yes Comment: occ REVIEW OF SYSTEMS Pertinent positives/negatives noted in the HPI. All other systems negative. VITAL SIGNS BP 112/68 (BP Location: Right arm, Patient Position: Sitting, Cuff Size: Regular) Pulse 104 Resp20 Wt 93.6 kg ? No BMI 33.17 kg/m?? PHYSICAL EXAMINATION GENERAL: well-appearing patient in no acute distress PSYCHIATRIC: patient is alert, makes eye contact, upright posture, calm and pleasant affect SKIN: No suspicious lesions. HEAD: symmetrical features. No lesions visualized. EYES: conjunctiva clear NOSE: The septum is midline. MOUTH/THROAT: Lips are symmetrical, no lesions. Oral mucosa is pink. Dentition is intact, no sign ofcaries. No erythema or edema of the gingiva. Tongue is midline. Frenulum is intact. No tonsillar edema. NECK: Supple, no lymphadenopathy palpated. Trachea is midline. CARDIOVASCULAR: Regular rate and rhythm, S1/S2 auscultated. No murmurs, gallops, rubs or clicks auscultated. No clubbing, cyanosis or edema. RESPIRATORY: clear to auscultation bilaterally ABDOMEN: Bowel sounds are active, no sign of masses or distension. No hepatosplenomegaly. Mild tenderness to palpation in the suprapubic area. CVA tenderness on the left. GENITAL: no inguinal lymphadenopathy. Exterior genitalia with normal hair distribution, no lesions appreciated. Vaginal mucosa is moist, pink and rugated. Clear-white vaginal discharge. No odor noted. Cervix is intact without bleeding or lesions. The cervical os is patent. No cervical motion tenderness. The uterus is small, firm, midline, smooth, and non-tender. Ovaries are non-palpable bilaterally. IMPRESSION/PLAN Flank pain Gross hematuria She has had a CT scan at an outside facility that was normal per her report. She will have a copy ofthe scan sent over for our review. Urinalysis in clinic today with 2-5 RBC and 1+ Protein, otherwisenegative. Those results are scanned in under document viewer. Urine culture is pending. CBC and CMP ordered. We will start by setting her up with urology for potential cystoscopy. If this is unremarkable, would recommend consult with nephrology for further evaluation and treatment. Differential diagnosis includes functional hematuria, nephrolithiasis, infection, endometriosis, polycystic kidney disease, intrinsic glomerular disease or less likely malignancy. Screening for cervical cancer She was due for a pap smear and because she was having a pelvic exam at this appointment we elected to perform her pap test. Screening for venereal disease performed as well. Vaginitis battery performed and is unremarkable. Advised the patient to present to clinic with worsening, persisting or new onset signs or symptoms. The patient verbalized understanding and agreed to plan. documented in this encounter Plan of Treatment Upcoming Encounters Date Type Specialty Care Team Description 04/22/2022 Appointment Laboratory Medicine Meryl Julio M.D. [address] [place] [address] (Hector martin) 04/29/2022 Office Visit Endocrinology Meryl Julio M .D. [address] [place], [place] [address] (Hector martin) documented as of this encounter Procedures Procedure Name Priority Date/Time Associated Diagnosis Comme nts BACTERIAL CULTURE, Routine 10/11/2017 9:38 AM Pain Flank AEROBIC + SUSC, CDT Hematuria URINE THINPREP SCREEN Routine 10/08/2017 2:34 PM Pap Smear Result s for this CDT Examination procedure are i n the results section. WET PREP PPM, POCT Routine 10/08/2017 9:24 AM Discharge Vagina l CDT CHLAMYDIA/GONORRHOE Routine 10/08/2017 8:25 AM Re sults for this AE AMPLIFIED RNA CDT procedure a re in the results section. documented in this encounter Results Bacterial Culture, Aerobic + Susc, Urine (10/11/2017 9:38 AM CDT) Specimen (Source) Anatomical Location Collection Method / Collectio n Time Received Time / Laterality Volume Urine (Urine, Midstream) Narrative This result has an attachment that is no t available. Kevin Downs APRNNPapa LAB MICROBIOLOGY - GENERAL ORDERABLES ThinPrep Screen (10/08/2017 2:34 PM CDT) Component Value Ref Test Analysis Performed Pathologis t Range Method Time At Signature 10/15/2017 [facility] 4:21 PM HEALTH CDT [facility] Pap Test Source Cervical/Endocervi 10/15/2017 [facility] shivam 4:21 PM HEALTH CDT [facility] Gross Description Received specimen 10/15/2017 [facility] in a ThinPrep 4:21 PM HEALTH vial. CDT [facility] Report MARZENA Mclaughlin(ASCP) 10/15/2017 [facility] electronically I verify that I have examined all relevant slides/ma terials 4:21 PM HEALTH signed by for the specimen(s) and rendered or confirmed the diagnosi s. CDT [facility] Interpretation Cervical/Endocervical ??(ThinPrep): 10/15/2017 [facility] Satisfactory for Evaluation 4:21 PM HE ALTH Endocervical/transformation zone components absent CDT SYSTEM- Negative for Intraepithelial Lesion or Malignancy [facility] Specimen Anatomical Collection Method Collection Time Receive d Time (Source) Location / / Volume Laterality Varies 10/08/2017 2:34 PM 8 7:08 (Cervix/Endocerv CDT AM CDT ix) Narrative This result has an attachment that is no t available. Kevin Downs APRNN.Chandan. LAB PAP PATHDX ORDERABLES Performing Organization Address City/State/ZIP Code Phon e Number [facility] [address] [place] [address] CYTOLOGY Wet Prep PPM, POCT (10/08/2017 9:24 AM CDT) Specimen (Source) Anatomical Location Collection Method / Collectio n Time Received Time / Laterality Volume Fluid Narrative This result has an attachment that is no t available. Kevin Downs APRNNPapa LAB POCT ORDERABLES-MANUAL Chlamydia / gonorrhoeae Amplified RNA (10/08/2017 8:25 AM CDT) [facility] gist Method Time Signature Source VAGINA 10/09/2017 [facility] 7:34 PM CDT [facility] Chlamydia Negative Negative 10/09/2017 [facility] trachomatis 7:34 PM CDT [facility] amplified RNA [facility] Comment: ----ADDITIONAL INFORMATION---- This report is intended for use in clini shivam monitoring and management of patients. It is not in tended for use in medical-legal applications. Source VAGINA 10/09/2017 7:34 PM CDT [facility] IN[facility] Neisseria gonorrhoeae Negative Negative 10/09/2017 7:[address] [facility] amplified RNA [facility] Comment: ----ADDITIONAL INFORMATION---- This report is intended for use in clini shivam monitoring and management of patients. It is not in tended for use in medical-legal applications. Specimen Anatomical Collection Method Collection Time Receive d Time (Source) Location / / Volume Laterality Varies 10/08/2017 8:25 AM 8 7:08 CDT AM CDT Suni Stevens APRN, C.N.P. LAB MICROBIOLOGY - GENERAL ORDERABLES Performing Organization Address City/State/ZIP Code Phon e Number [facility] [address] [place] [address] LAB documented in this encounter Visit Diagnoses Diagnosis Pain Flank - Primary Hematuria Pap Smear Examination Screening For Venereal Disease Discharge Vaginal Dysmenorrhea documented in this encounter Care Teams Egg Producer Relationship Specialty Start Date End Date Suni Stevens APRN, C.N.P. PCP - General 03/06/17 02/03/18 documented as of this encounter
--- OUTSIDE RECORDS SUMMARY | 2022-03-06 07:11 | XMS_ITS | Encounter Summary ---
:1995 Author Organization [facility] Address [address] [place] [address] Care Team Providers Name Role Phone Suni Stevens APRN, C.N.P. 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 - 08/10/2017 8:16 AM CDT Detailed message left for pt Telephone Encounter - Suni Stevens APRN, C.N.P. - 08/06/2017 4:05 PM CDT UA reviewed. No sign of infection. She does have some blood, however. Is she currently menstruating?Please call the patient to ask. If she is not menstruating, please set her up to see me when I am back in clinic next week for work up of hematuria. Thanks. Telephone Encounter - Jalil Duran M.D. - 08/06/2017 1:20 PM CDT Hi Ms Stevens, Patient complained of dysuria at visit today and mentioned previous pyelonephritis and UTI episodes.I ordered UA and told her that I will notify you with results. I appreciate if you can follow up on this. Thanks! Telephone Encounter - Jalil Duran M.D. - 08/06/2017 1:09 PM CDT Jyoti, Please notify patient that I prescribed a different OCP (micronor) , she can start taking this on first day of her period. Please also ask her to let us know if acne and hair increases with this treatment but given headaches, I believe this would be a better choice. documented in this encounter Plan of Treatment Upcoming Encounters Date Type Specialty Care Team Description 04/22/2022 Appointment Laboratory Medicine Meryl Julio M.D. [facility] [place], [place] [address] (Wo veronica) 04/29/2022 Office Visit Endocrinology Meryl Julio M .D. [address] [place] [address] (Hector martin) documented as of this encounter Visit Diagnoses Not on filedocumented in this encounter Care Teams Director Of Consumer Affairs Relationship Specialty Start Date End Date Suni Stevens, BARBARA, C.N.P. PCP - General 03/06/17 02/03/18 documented as of this encounter
--- OUTSIDE RECORDS SUMMARY | 2022-03-06 07:11 | XMS_ITS | Encounter Summary ---
:1995 Author Organization [facility] Address [address] [place] [address] Care Team Providers Name Role Phone Suni Stevens APRN, C.N.P. Primary Care Provider Unavailabl e Encounter Details Date Type Department Care Team Description 10/08/2017 Hospital Encounter Department of Laboratory Antoinette Stevens ma, Hematuria; Medicine, Specialty BARBARA, C.N.P. Pain [facility], in [address] [address] Social History Tobacco Use Types Packs/Day [...] or relatives? How often do you attend yazidism or amish More than 4 time s per year 06/21/2021 services? 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 levothyroxine Take 1 tablet (112 90 tablet 3 08/06/2017 (for_SYNTHROID, mcg total) by mouth LEVOTHROID) 112 mcg daily. tablet metFORMIN XR Take 2 tablets (1,000 120 tablet 11 08/06/2017 0 11/02/2017 (for_GLUCOPHAGE-XR) 500 mg total) by mouth 2 mg 24 hr tablet (two) times a day with meals. metFORMIN XR 0 09/08/2017 01/04/2019 (GLUCOPHAGE XR) 500 mg 24 hr tablet norethindrone Take 1 tablet [...] 09/0812/17/2018 40 mg tablet as needed. spironolactone TAKE 1 TABLET BY 60 tablet 5 09/08/201710/24 (ALDACTONE) 50 mg MOUTH TWICE A DAY tabletIndications: Polycystic Ovary Syndrome spironolactone 0 09/02/2017 01/04/2019 (ALDACTONE) 50 mg tablet documented as of this encounter Plan of Treatment Upcoming Encounters Date Type Specialty Care Team Description 04/22/2022 Appointment Laboratory Medicine Meryl Julio M.D. [address] [place], [place] [address] (Wo rk) 04/29/2022 Office Visit Endocrinology Meryl Julio M .D. [address] [place], [place] [address] (Wo rk) documented as of this encounter Procedures Procedure Name Priority Date/Time Associated Comments Diagnosis COMPREHENSIVE Routine 10/08/2017 12:40 Hematuria Results for this METABOLIC PANEL, S/P PM CDT Pain Flank procedu re are in the results section. documented in this encounter Results (ABNORMAL) CMP (Comprehensive Metabolic Panel) (10/08/2017 12:40 PM CDT) athologist Signature Potassium, S 4.4 3.6 - 5.2 10/08/2017 [facility] mmol/L 12:53 PM CDT [facility] Sodium, S 140 135 - 145 10/08/2017 [facility] mmol/L 12:53 PM CDT [facility] Chloride, S 98 98 - 107 10/08/2017 [facility] mmol/L 12:53 PM T [facility] Bicarbonate, S 25 22 - 29 10/08/2017 [facility] mmol/L 12:53 PM T [facility] Anion Gap 17 (H) 7 - 15 10/08/2017 [facility] 12:53 PM T [facility] BUN (Blood Urea 12 6 - 21 10/08/2017 [facility] Nitrogen), S mg/dL 12:53 PM T [facility] Creatinine 0.75 0.59 - 10/08/2017 [facility] 1.04 mg/dL 12:53 PM T [facility] eGFR-Non >90 >=60 10/08/2017 [facility] Black/ mL/min/BSA 12:53 PM CDT [facility] [place] [facility] Comment: ----ADDITIONAL INFORMATION---- Estimated GFR calculated using the 2009 CKD_EPI creatinine equation. eGFR-Black/ >90 >=60 mL/min/BSA 12:53 [facility] Comment: ----ADDITIONAL INFORMATION---- Estimated GFR calculated using the 2009 CKD_EPI creatinine equation. Calcium, Total, S 10.4 (H) 8.6 - 10.0 10/08/2017 12:53 [facility] mg/dL [facility] Glucose, S 87 70 - 140 mg/dL 10/08/2017 12:53 [facility] Protein, Total, S 7.4 6.3 - 7.9 g/dL 10/08/2017 12:53 [facility] Albumin, S 4.8 3.5 - 5.0 g/dL 10/08/2017 12:53 [facility] Aspartate 21 8 - 43 U/L 10/08/2017 12:53 [facility] Aminotransferase (AST), S [facility] Alkaline Phosphatase, S 121 (H) 37 - 98 U/L 10/08/2017 12: 53 [facility] Alanine Aminotransferase 36 7 - 45 U/L 10/08/2017 12: 53 [facility] (ALT), S [facility] Bilirubin, Total, S 0.3 <=1.2 mg/dL 10/08/2017 12:53 [facility] Specimen Anatomical Collection Method Collection Time Receive d Time (Source) Location / / Volume Laterality Blood (Blood, 10/08/2017 12:40 10/08/2017 Venous) PM CDT 12:40 PM CDT Suni Stevens APRN C.N.P. LAB BLOOD ADD-ON Performing Organization Address City/State/ZIP Code Phon e Number [facility] [address] [place] [address] LAB documented in this encounter Visit Diagnoses Diagnosis Hematuria Pain Flank documented in this encounter Care Teams Repair Electric Motor Assembler Relationship Specialty Start Date End Date Suni Stevens, BARBARA, C.N.P. PCP - General 03/06/17 02/03/18 documented as of this encounter
--- OUTSIDE RECORDS SUMMARY | 2022-03-06 07:11 | XMS_ITS | Encounter Summary ---
:1995 Author Organization [facility] Address [address] [place] [address] Care Team Providers Name Role Phone Suni Stevens APRN, C.N.P. Primary Care Provider Unavailabl e Reason for Visit Reason Onset Date Comments Med Refill 10/09/2017 Encounter Details Date Type Department Care Team Description 10/09/2017 Refill Department of Endocrinology in Paula Blount, L.P.N. 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 - 10/09/2017 2:59 PM CDT This was already ordered By the provider today. documented in this encounter Plan of Treatment Upcoming Encounters Date Type Specialty Care Team Description 04/22/2022 Appointment Laboratory Medicine Meryl Julio M.D. [address] [place] [address] (Wo veronica) 04/29/2022 Office Visit Endocrinology Meryl Julio M .D. [address] [place], [place] [address] (Wo veronica) documented as of this encounter Visit Diagnoses Diagnosis Thyroiditis Deric's - Primary documented in this encounter Care Teams Pattern Lease Inspector Relationship Specialty Start Date End Date Suni tSevens APRN, C.N.P. PCP - General 03/06/17 02/03/18 documented as of this encounter
--- OUTSIDE RECORDS SUMMARY | 2022-03-06 07:11 | XMS_ITS | Encounter Summary ---
:1995 Author Organization [facility] Address [address] [place] [address] Care Team Providers Name Role Phone Suni Stevens APRN, C.N.P. Primary Care Provider Unavailabl e Reason for Visit Reason Comments Med Refill Encounter Details Date Type Department Care Team Description 11/02/2017 Refill Department of Endocrinology in [place] Parikh M.D. 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 [address] [place], [place] [address] (Wo rk) 04/29/2022 Office Visit Endocrinology Meryl Julio M .D. [address] [place], [place] [address] (Wo rk) documented as of this encounter Visit Diagnoses Not on filedocumented in this encounter Care Teams Cosmetics And Toiletries Salesperson Relationship Specialty Start Date End Date Suni Stevens APRN, C.N.P. PCP - General 03/06/17 02/03/18 documented as of this encounter
--- OUTSIDE RECORDS SUMMARY | 2022-03-06 07:11 | XMS_ITS | Encounter Summary ---
:1995 Author Organization [facility] Address [address] [place] [address] Care Team Providers Name Role Phone Suni Stevens APRN, C.N.P. Primary Care Provider Unavailabl e Reason for Referral Outpatient (Routine) - Closed Specialty Diagnoses / Procedures Referred By Contact Refer red To Contact Diagnoses Hematuria Pain Flank Nura Fox M.D., [facility] Procedures URO Cystoscopy (general) CT CYSTOURETHROSCOPY Ph.D. [address] [place] [address] Referral ID Status Reason Start Date Expiration Date Visits Requ ested Visits Authorized [id number] Closed 11/11/2017 11/11/2018 1 1 Reason for Visit Reason Comments Blood in Urine hx kidney stones and kidney infections Outpatient (Routine) - Closed Specialty Diagnoses / Procedures Referred By Contact Refer red To Contact Urology Diagnoses Hematuria Pain Flank Suni Stevens APRN, [facility] C.N.P. [address] [place] [address] Referral ID Status Reason Start Date Expiration Date Visits Requ ested Visits Authorized [id number] Closed 10/08/2017 04/06/2018 1 1 Encounter Details Date Type Department Care Team Description 11/11/2017 Comprehensive Visit Department of Nura Fox (Primary Dx); Urology in Case Nicholson M.D., Ph.D. 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 - 11/11/2017 9:15 AM CDT Pt given information and instructions on cystoscopy. Pt agrees with plan and we will see her back for the procedure. Also, instructed her to come 15-30 mins prior to appt to give antibiotic. documented in this encounter Consult Notes Nura Fox M.D., Ph.D. - 11/11/2017 9:15 AM CDT Date of Service and Exam date: 11/11/2017 CC / HPI: Felecia Cardenas is a 22 y.o. old female seen in consult for urologic evaluation and treatment of history of left flank pain and gross hematuria starting about 2 months ago, with exertion.She has tried uddj-bcj-ikvrfzs pain medicines as well as chiropractic without relief. She endorses intermittent subtle suprapubic pain. She has feelings of incomplete that bladder emptying, weak stream, and straining to void. She has a history of kidney stone 10 years ago, passing spontaneously. She does have a history of endometriosis. Except for the above, she denies a history of hematuria, dysuria, recurrent UTIs, kidney stones, or prior genitourinary procedures, surgeries, or trauma. ROS: 10 pts reviewed with patient; see Intake Form & HPI for pertinent positives and negatives. The patient's allergies, past medical history, medications, social and family histories are reviewedby me independently and are available and up-to-date in the patient's chart (EMR). Social Hx: nonsmoker Family Hx: kidney stones? No. Physical Exam: BP 139/79 (BP Location: Right arm, Patient Position: Sitting, Cuff Size: Regular) Pulse 89 Temp 36.8 ??C (Temporal) Constitutional: Vitals reviewed above. Pleasant mannerism and in no apparent distress. Skin: Warm and dry. No active rashes, lesions, infections noted. Respiratory: Easily breathing on room air. Good respiratory excursion. No obvious wheezes. CV: Heart rate RRR. No JVD noted. GI: Soft, not distended, nontender. No obvious abdominal masses, pulsations, nor HSM. No guarding orrebound. Musculoskeletal: No obvious spinal deformities. Moves all extremities. Neuro: Cranial nerves II-XII grossly intact. No neurologic defects noted. Psych: Normal affect. Alert and oriented to person, place, and time. Answers questions appropriately. Lymph: No inguinal lymphadenopathy present bilaterally. : -- mild left CVA tenderness noted with percussion. -- Vaginal exam: deferred -- Rectal exam: deferred Creatinine, S (mg/dL) Date Value 11/09/2017 0.80 10/08/2017 0.75 10/08/2017 CANCELED STI screens are negative July 2017 urinalysis grossly bland August 2017 CT stone Fritz, report only, or reports no hydronephrosis or kidney or ureteral stones. I do not have these films to review independently. Assessment: Encounter Diagnoses Name Primary? Hematuria Yes ??? Pain Flank Plan: I reviewed with the patient her history of ongoing left flank pain and gross hematuria. I will send urine specimen for analysis, culture, cytology and I asked the patient return to clinic for cystoscopy. We can consider a CT urogram or additional imaging including urothelial studies pending the above workup. We discussed the importance of follow-up as we must be concerned for significant urologic issues. She agrees to return as scheduled. Please see the After Visit Summary for counseling, advice, and precautions that I gave the patient during today's visit. Nura Fox MD PhD Date of Service: 11/11/2017 documented in this encounter Plan of Treatment Upcoming Encounters Date Type Specialty Care Team Description 04/22/2022 Appointment Laboratory Medicine Meryl Julio M.D. [address] [place], [place] [address] (Wo rk) 04/29/2022 Office Visit Endocrinology Meryl Julio M .D. [address] [place], [place] [address] (Wo rk) documented as of this encounter Procedures Procedure Name Priority Date/Time Associated Comments Diagnosis CYTOLOGY NON-TRUCK CATERER Routine 11/11/2017 10:36 Hematuria Results for this (SCHEDULED) AM CDT Pain Flank procedure are i n the results section. URINALYSIS WITH Routine 11/11/2017 10:10 Hematuria Results for this MICROSCOPIC IF AM CDT Pain Flank procedure are in INDICATED, U the results section. MICROSCOPIC MANUAL Routine 11/11/2017 10:10 Resul ts for this AM CDT procedure are i n the results section. BACTERIAL CULTURE, Routine 11/11/2017 10:10 Hematuria Results for this AEROBIC + SUSC, URINE AM CDT Pain Flank proced ure are in the results section. documented in this encounter Results Pathology Non-TRUCK CATERER Cytology (Scheduled) (11/11/2017 10:36 AM CDT) Component Value Ref Test Analysis Performed At [facility] Range Method Time Signature Gross Description Received 20 11/12/2017 [facility] IC ml of light 10:43 AM Epos yellow CDT SYSTEM- alcohol fixed [facility] fluid CYTOLOGY Collection voided 11/12/2017 [facility] Procedure 10:43 AM [employer] [facility] Source A. Urine, 11/12/2017 [facility] Urethra, 10:43 AM HEALTH voided [employer] [facility] Report Raymundo Mcdonough MD 11/12/2017 [facility] electronically I verify that I have examined all relevant slides/ma terials 10:43 AM HEALTH signed by for the specimen(s) and rendered or confirmed the diagnosi s. [employer] [facility] CY[facility] 11/12/2017 [facility] 10:43 AM [employer] SYSTEM[employer] Systems [facility] CYTOLOGY Interpretation A. Urine, Urethra, voided (cytospin): Negative for 11/12/2017 [facility] High-Grade Urothelial Carcinoma. 10:43 A M [employer] SYSTEM[employer] Systems [facility] CYTOLOGY Specimen Anatomical Collection Method Collection Time Receive d Time (Source) Location / / Volume Laterality Varies (Urethra 11/11/2017 10:36 11/13/19 18 7:12 (Female)) AM CDT AM CDT Narrative This result has an attachment that is no t available. Nura Fox M.D., Ph.D. LAB SURG PATH ORDERABLES Performing Organization Address City/State/ZIP Code Phon e Number [facility] [address] [place] [address] CYTOLOGY (ABNORMAL) Microscopic Manual (11/11/2017 10:10 AM CDT) Analysis Performed At Patho logist Time Signature White Blood 11-20 (A) /hpf 11/11/2017 [facility] Cells 11:14 AM [facility] LAB Comment: ----REFERENCE VALUE---- Males: 0-3 Females: 0-10 Unknown: 0-10 Red Blood Cells Occ-2 0 - 2 /hpf 11/11/2017 11:14 AM [facility] Crystals Calcium Oxalate None Seen 11/11/2017 11:14 AM [facility] (A) /lpf [facility] Squamous Cells 11-20 /hpf 11/11/2017 11:14 AM [facility] Bacteria Present (A) None Seen 11/11/2017 11:14 AM [facility] LAB Specimen Anatomical Collection Method Collection Time Receive d Time (Source) Location / / Volume Laterality Urine 11/11/2017 10:10 11/11/2017 AM CDT 11:09 AM CDT Nura Fox M.D., Ph.D. LAB URINE ORDERABLES Performing Organization Address City/[facility]/ZIP Code Phon e Number [facility] [address] [place] [id number] [place] [facility] Bacterial Culture, Aerobic + Susc, Urine (11/11/2017 10:10 AM CDT) Analysis Performed At Patho logist Time Signature Bacterial Mixed 11/12/2017 [facility] Culture, jovanna. 12:37 PM CDT [facility], Urine [facility] LAB Specimen Anatomical Collection Method Collection Time Receive d Time (Source) Location / / Volume Laterality Urine (Urine, 11/11/2017 10:10 11/11/2017 2:21 Midstream) AM CDT PM CDT Comment: Specimen Source Site: Urine Nura M Fox M.D., Ph.D. LAB MICROBIOLOGY - GENERAL ORDERABLES Performing Organization Address City/State/ZIP Code Phon e Number [facility] [address] [place] [address] LAB (ABNORMAL) Urinalysis with Microscopic if Indicated (11/11/2017 10:10 AM CDT) P athologist Signature Source Midstream 11/11/2017 [facility] 11:09 AM T [facility] Clarity Clear Clear 11/11/2017 [facility] 11:09 AM T [facility] Color Yellow 11/11/2017 [facility] 11:09 AM T [facility] Comment: ----REFERENCE VALUE---- Colorless Yellow Michelle Blood Negative Negative 11/11/2017 11:09 AM CDT [facility] [place] [facility] Nitrite Negative Negative 11/11/2017 11:09 AM CDT [facility] Leukocyte Esterase Trace (A) Negative 11/11/2017 11:09 AM CDT [facility] Protein Negative mg/dL 11/11/2017 11:09 AM CDT [facility] [place] [facility] Comment: ----REFERENCE VALUE---- Negative Trace Glucose Negative Negative mg/dL 11/11/2017 11:09 AM [facility] Ketones, QI(U) Negative Negative mg/dL 11/11/2017 11:09 AM [facility] Bilirubin Negative Negative 11/11/2017 11:09 AM [facility] pH 5.0 5.0 - 8.0 11/11/2017 11:09 AM [facility] Specific [place] 1.025 1.001 - 1.035 11/11/2017 11:09 AM [facility] Urobilinogen 0.2 0.2 - 1.0 mg/dL 11/11/2017 11:09 AM [facility] Specimen Anatomical Collection Method Collection Time Receive d Time (Source) Location / / Volume Laterality Urine (Urine, 11/11/2017 10:10 11/11/2017 Clean Catch) AM CDT 11:09 AM CDT Nura Fox M.D., Ph.D. LAB URINE ORDERABLES Performing Organization Address City/State/ZIP Code Phon e Number [facility] [address] [place] [address] [place] [facility] documented in this encounter Visit Diagnoses Diagnosis Hematuria - Primary Pain Flank documented in this encounter Care Teams Front Of House Manager Relationship Specialty Start Date End Date Suni Stevens APRN, C.N.P. PCP - General 03/06/17 02/03/18 documented as of this encounter
--- OUTSIDE RECORDS SUMMARY | 2022-03-06 07:11 | XMS_ITS | Encounter Summary ---
:1995 Author Organization [facility] Address [address] [place] [address] Care Team Providers Name Role Phone Suni Stevens APRN, C.N.P. Primary Care Provider Unavailabl e Encounter Details Date Type Department Care Team Description 10/09/2017 Orders Only Department of Endocrinology in [place] Parikh M.D. 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 [address] [place] [address] (Wo rk) 04/29/2022 Office Visit Endocrinology Meryl Julio M .D. [address] [place] [address] (Wo rk) documented as of this encounter Visit Diagnoses Not on filedocumented in this encounter Care Teams Light Equipment Operator Relationship Specialty Start Date End Date Suni Stevens APRN, C.N.P. PCP - General 03/06/17 02/03/18 documented as of this encounter
--- OUTSIDE RECORDS SUMMARY | 2022-03-06 07:11 | XMS_ITS | Encounter Summary ---
:1995 Author Organization [facility] Address [address] [place] [address] Care Team Providers Name Role Phone Suni Stevens APRN, C.N.P. 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 levothyroxine TAKE 1 TABLET BY 30 tablet 3 10/12/201711/19 (SYNTHROID, LEVOTHROID) MOUTH EVERY DAY 112 mcg tablet metFORMIN XR 0 09/08/2017 01/04/2019 (GLUCOPHAGE XR) 500 mg 24 hr tablet metFORMIN XR TAKE ONE TABLET BY 180 tablet 1 11/02/201710/24 (GLUCOPHAGE-XR) 500 mg MOUTH TWICE A DAY . 24 hr tablet norethindrone Take 1 tablet [...] Appointment Laboratory Medicine Meryl Julio M.D. [address] [place], [place] [address] (Wo rk) 04/29/2022 Office Visit Endocrinology Meryl Julio M .D. [address] [place], [place] [address] (Wo rk) documented as of this encounter Procedures Procedure Name Priority Date/Time Associated Comments Diagnosis COMPREHENSIVE Routine 11/09/2017 8:37 AM Elevated Alkaline Res ults for this METABOLIC PANEL, S/P CDT Phosphatase procedure are in Hypercalcemia the results section. documented in this encounter Results CMP (Comprehensive Metabolic Panel) (11/09/2017 8:37 AM CDT) P athologist Signature Potassium, S 4.6 3.6 - 5.2 11/09/2017 [facility] mmol/L 9:47 AM [facility] Sodium, S 142 135 - 145 11/09/2017 [facility] mmol/L 9:47 AM [facility] [place] [facility] Chloride, S 105 98 - 107 11/09/2017 [facility] mmol/L 9:47 AM [facility] [place] [facility] Bicarbonate, S 24 22 - 29 11/09/2017 [facility] mmol/L 9:47 AM [facility] [place] [facility] Anion Gap 13 7 - 15 11/09/2017 [facility] 9:47 AM [facility] [place] [facility] BUN (Blood Urea 11 6 - 21 11/09/2017 [facility] Nitrogen), S mg/dL 9:47 AM [facility] [place] [facility] Creatinine 0.80 0.59 - 11/09/2017 [facility] 1.04 mg/dL 9:47 AM [facility] [place] [facility] eGFR-Non >90 >=60 11/09/2017 [facility] Black/ mL/min/BSA 9:47 AM [facility] [place] [facility] Comment: ----ADDITIONAL INFORMATION---- Estimated GFR calculated using the 2009 CKD_EPI creatinine equation. eGFR-Black/ >90 >=60 mL/min/BSA 2017 9:47 AM [facility] [place] [facility] Comment: ----ADDITIONAL INFORMATION---- Estimated GFR calculated using the 2009 CKD_EPI creatinine equation. Calcium, Total, S 9.7 8.6 - 10.0 11/09/2017 9:47 AM [facility] mg/dL [facility] [place] [facility] Glucose, S 82 70 - 140 mg/dL 11/09/2017 9:47 AM [facility] [place] [facility] Protein, Total, S 6.7 6.3 - 7.9 g/dL 11/09/2017 9:47 A M [facility] [place] [facility] Albumin, S 4.4 3.5 - 5.0 g/dL 11/09/2017 9:47 AM [facility] [place] [facility] Aspartate Aminotransferase 16 8 - 43 U/L 11/09/2017 9 :47 AM [facility] [place] [facility] Alkaline Phosphatase, S 95 37 - 98 U/L 11/09/2017 9:4 7 AM [facility] [place] [facility] Alanine Aminotransferase 25 7 - 45 U/L 11/09/2017 9:4 7 AM [facility] [place] [facility] Bilirubin, Total, S 0.3 <=1.2 mg/dL 11/09/2017 9:47 AM [facility] [place] [facility] Specimen Anatomical Collection Method Collection Time Receive d Time (Source) Location / / Volume Laterality Blood (Blood, 11/09/2017 8:37 AM 11/10/19 18 8:40 Venous) CDT AM T Suni Stevens APRN C.N.P. LAB BLOOD ADD-ON Performing Organization Address City/State/ZIP Code Phon e Number [facility] [address] [place] [address] [facility] documented in this encounter Visit Diagnoses Diagnosis Thyroiditis Deric's Elevated Alkaline Phosphatase Hypercalcemia documented in this encounter Care Teams Purler Relationship Specialty Start Date End Date Suni Stevens, BARBARA, C.N.P. PCP - General 03/06/17 02/03/18 documented as of this encounter
--- OUTSIDE RECORDS SUMMARY | 2022-03-06 07:11 | XMS_ITS | Encounter Summary ---
:1995 Author Organization [facility] Address [address] [place] [address] Care Team Providers Name Role Phone Suni Stevens APRN, C.N.P. Primary Care Provider Unavailabl e Reason for Referral Outpatient (Routine) - Closed Specialty Diagnoses / Procedures Referred By Contact Refer red To Contact Endocrinology Jalil Parikh M.D. [address] [address] Referral ID Status Reason Start Date Expiration Date Visits Requ ested Visits Authorized [id number] Closed 11/11/2017 11/11/2018 1 1 Reason for Visit Reason Comments Deric's Thyroiditis Outpatient (Routine) - Closed Specialty Diagnoses / Procedures Referred By Contact Refer red To Contact Endocrinology Jalil Parikh M.D. [address] [address] Referral ID Status Reason Start Date Expiration Date Visits Requ ested Visits Authorized [id number] Closed 08/06/2017 02/02/2018 1 1 Encounter Details Date Type Department Care Team Description 11/11/2017 Office Visit Department of Jalil Parikh, Polycystic Ovary Syndrome (Primary Dx); Endocrinology in [place] Thyroid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 - 11/11/2017 3:00 PM CDT Patient Name: Flaquito Turner [facility] [phone] Date of : 1995 CHIEF COMPLAINT PCOS, hypothyroidism HISTORY OF PRESENT ILLNESS Flaquito Turner is a 22 y.o. female with history of sleep apnea, obesity and hypothyroidism is presenting for follow up visit. Brief hx: After initial diagnosis of PCOS, Depo-Provera was switched to Ortho_cyclen due to weight gain concerns. OCP was changed to Norethindrone as she has migraine with aura. She is also on Spironolactone 50 mg BID and Metformin 500 mg BID. She continues to lose weight . She overall feels well except fatigue. She reports improvement on excess hair and acne but after 3 mo regular periods for past 2mo she gets periods every 2 weeks. She has Deric Thyroiditis as well. She is on levothyroxine 112 mcg daily, compliant with it, complains being very tired. She also reports some palpitations. Patient was also concerned about Srinivasan's syndrome (due to symptoms of muscle pain, some proximal muscle weakness, weight gain) , urine and salivary cortisol levels were normal. She also gets diarrheawith Carb rich food, she had improvement of symptoms with gluten free diet, celiac screening negative. ?? Current Outpatient Prescriptions: ??? levothyroxine (SYNTHROID, LEVOTHROID) 112 mcg tablet, TAKE 1 TABLET BY MOUTH EVERY DAY, Disp: 30tablet, Rfl: 3 ??? metFORMIN XR (GLUCOPHAGE-XR) 500 mg 24 hr tablet, TAKE ONE TABLET BY MOUTH TWICE A DAY ., Disp: 180 tablet, Rfl: 1 ??? norethindrone (for_MICRONOR) 0.35 mg tablet, Take 1 tablet (0.35 mg total) by mouth daily., Disp: 28 tablet, Rfl: 12 ??? propranolol (for_INDERAL) 40 mg tablet, TAKE 1 TABLET BY MOUTH 1 HOUR PRIOR TO PRESENTATION OR EXAMS NEEDED FOR ANXIETY, Disp: , Rfl: 4 Allergies Allergen Reactions ??? Ciprofloxacin Other (see [...] Used ??? Alcohol use Yes Comment: occ ??? Drug use: No ??? Sexual activity: Not Asked Other Topics Concern ??? None Social History Narrative ??? None REVIEW OF SYSTEMS On complete review of systems, pertinent positive/negative as mentioned in HPI. PHYSICAL EXAM Vitals: 11/11/17 1432 BP: 122/66 Pulse: 64 Resp: 16 Height: 168 cm Weight: 92.4 kg General: No acute distress. Eyes: Anicteric Sclera, no proptosis. ENT: Mucous membranes moist and pink. CVS: Regular rate and rhythm. No murmur. Extremities: Warm, well perfused. Neuro: Alert and oriented x 3, grossly intact. LABORATORY/DIAGNOSTICS Labs from [facility] 02/10/17 DHEA: 374 ug/dL (N [id number]) Glucose: 80 mg/dL Na: 138, K: 3.8, Crea: 0.67, BUN: 11 TSH: 1.19 Free T4: 1.7 24h urine Crea: 1.5 g/24h , volume: 1210 mL Glucose Fasting 103 mg/dL 12/04/2016 07:16 CDT (High) Gluc 2hr Glucola 136 mg/dL 12/04/2016 09:25 CDT Results for FLAQUITO TURNER ( ) as of 11/11/2017 17:12 Ref. Range 10/08/2017 10:04 TSH, Sensitive, S Latest Ref Range: 0.3 - 4.2 mIU/L 1.7 T4 (Thyroxine), Free, S Latest Ref Range: 0.9 - 1.7 ng/dL 1.9 (H) ASSESSMENT/PLAN 1. Deric Thyroiditis She is on Levothyroxine 112 mcg daily with some improvement of symptoms but still complains of fatigue. She also reports some palpitations today, will recheck thyroid labs and adjust dose accordingly. 2. PCOS/Obesity Currently on OCP, spironolactone and Metformin. She continues to lose weight. Acne and excess hair improved. She used to be on Orthocyclen which was switched to Micronor due to migraine with aura but reports increased frequency of periods (every 2 weeks ) for past 2 mo. Will review other OCP options that she can use in PCOS (low androgenic potency progesterone). I discussed above in details with the patient, all questions were addressed, she showed understanding and agreed with plan. ?? documented in this encounter Plan of Treatment Upcoming Encounters Date Type Specialty Care Team Description 04/22/2022 Appointment Laboratory Medicine Meryl Julio M.D. [address] [place] [address] (Wo rk) 04/29/2022 Office Visit Endocrinology Meryl Julio M .D. [address] [place] [address] (Wo rk) Scheduled Referrals Name Type Priority Associated Order Schedule Diagnoses Endocrinology office Outpatient Referral Routine Expected: visit (clinic) 03/13/2018 (Approximate), Expires: 11/11/2020 documented as of this encounter Procedures Procedure Name Priority Date/Time Associated Diagnosis Comme nts THYROID-STIMULATING Routine 11/11/2017 3:36 PM Thyroiditis Re sults for this HORMONE-SENSITIVE CDT Deric's procedure are in (S-TSH) the results section. T4 (THYROXINE), Routine 11/11/2017 3:36 PM Thyroiditis Result s for this FREE, S CDT Deric's procedure are i n the results section. documented in this encounter Results (ABNORMAL) T4 (Thyroxine), Free (11/11/2017 3:36 PM CDT) athologist Signature T4 1.9 (H) 0.9 - 1.7 11/11/2017 [facility] (Thyroxine), ng/dL 4:32 PM CDT [facility] Comment: Biotin has been identified by the landen lopes as a potential interfering substance. ??Higher concentr ations of biotin may be found in multivitamins, hair/nail supple ments, and workout supplements. ??If the result does not [facility] clinical observations, repeat testing after patient refrains fr om the use of supplements for at least 12 hours. Specimen Anatomical Collection Method Collection Time Receive d Time (Source) Location / / Volume Laterality Blood (Blood, 11/11/2017 3:36 PM 11/12/19 18 3:40 Venous) CDT PM CDT Jalil Parikh M.D. LAB BLOOD ADD-ON Performing Organization Address [facility] Phon e Number [address] [address] LAB S-TSH (Thyroid-Stimulating Hormone - Sensitive) (11/11/2017 3:36 PM CDT) athologist Signature TSH, Sensitive 1.6 0.3 - 4.2 11/11/2017 [facility] mIU/L 4:32 PM CDT [facility] Comment: Biotin has been identified by the landen lopes as a potential interfering substance. ??Higher concentr ations of biotin may be found in multivitamins, hair/nail supple ments, and workout supplements. ??If the result does not [facility] clinical observations, repeat testing after patient refrains fr om the use of supplements for at least 12 hours. Specimen Anatomical Collection Method Collection Time Receive d Time (Source) Location / / Volume Laterality Blood (Blood, 11/11/2017 3:36 PM 11/12/19 18 3:40 Venous) CDT PM CDT Jalil Parikh M.D. LAB BLOOD ADD-ON Performing Organization Address City/[facility] Phon e Number [address] [address] LAB documented in this encounter Visit Diagnoses Diagnosis Polycystic Ovary Syndrome - Primary Thyroiditis Deric's documented in this encounter Care Teams Coding Manager Relationship Specialty Start Date End Date Suni Stevens, BARBARA, C.N.P. PCP - General 03/06/17 02/03/18 documented as of this encounter
--- OUTSIDE RECORDS SUMMARY | 2022-03-06 07:11 | XMS_ITS | Encounter Summary ---
:1995 Author Organization [facility] Address [address] [place] [address] Care Team Providers Name Role Phone Suni Stevens APRN, C.N.P. Primary Care Provider Unavailabl e Encounter Details Date Type Department Care Team Description 10/08/2017 Hospital Encounter Department of Laboratory Antoinette Stevens ma, Hematuria; Medicine, Specialty BARBARA, C.N.P. Pain [facility], in [address] [phone] Social History Tobacco Use Types Packs/Day Years Used Date Smoking Tobacco: Never Smokeless Tobacco: Never Alcohol Use Standard Drinks/Week Comments Yes 0 (1 standard drink = 0.6 oz pure alcoho l) [facility] Alcohol Habits Answer Date Recorded How often [...] or relatives? How often do you attend restoration or scientologist More than 4 time s per year 06/21/2021 services? 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 [address] [place], [place] [address] (Wo rk) 04/29/2022 Office Visit Endocrinology Meryl Julio M .D. [address] [place], [place] [address] (Wo rk) documented as of this encounter Procedures Procedure Name Priority Date/Time Associated Diagnosis Comme nts CBC WITH Routine 10/08/2017 2:06 PM Hematuria Results for this DIFFERENTIAL, B CDT Pain Flank procedure ar e in the results section. documented in this encounter Results CBC with Differential, Blood (10/08/2017 2:06 PM CDT) athologist Signature Hemoglobin 14.6 11.6 - 10/08/2017 [facility] 15.0 g/dL 2:34 PM T [facility] Hematocrit 43.5 35.5 - 10/08/2017 [facility] 44.9 % 2:34 PM T [facility] Erythrocytes 4.71 3.92 - 10/08/2017 [facility] 5.13 2:34 PM CDT [facility] x10(12)/L [facility] MCV 92.4 78.2 - 10/08/2017 [facility] 97.9 fL 2:34 PM T [facility] RBC Distrib Width 12.4 12.2 - 10/08/2017 [facility] 16.1 % 2:34 PM CDT [facility] Platelet Count 369 157 - 371 10/08/2017 [facility] x10(9)/L 2:34 PM T [facility] Leukocytes 8.8 3.4 - 9.6 10/08/2017 [facility] x10(9)/L 2:34 PM T [facility] Neutrophils 5.08 1.56 - 10/08/2017 [facility] 6.45 2:34 PM CDT [facility] x10(9)/L [facility] Lymphocytes 3.02 0.95 - 10/08/2017 [facility] 3.07 2:34 PM CDT [facility] x10(9)/L [facility] Monocytes 0.47 0.26 - 10/08/2017 [facility] 0.81 2:34 PM CDT [facility] x10(9)/L [facility] Eosinophils 0.16 0.03 - 10/08/2017 [facility] 0.48 2:34 PM CDT [facility] x10(9)/L [facility] Basophils 0.02 0.01 - 10/08/2017 [facility] 0.08 2:34 PM CDT [facility] x10(9)/L [facility] Specimen Anatomical Collection Method Collection Time Receive d Time (Source) Location / / Volume Laterality Blood (Blood, 10/08/2017 2:06 PM 10/09/19 18 2:24 Venous) CDT PM CDT Suni Stevens APRN, C.N.P. LAB BLOOD ADD-ON Performing Organization Address City/State/ZIP Code Phon e Number [facility] [address] [place] [address] LAB documented in this encounter Visit Diagnoses Diagnosis Hematuria Pain Flank documented in this encounter Care Teams Flatbed Driver Relationship Specialty Start Date End Date Suni Stevens APRN, C.N.P. PCP - General 03/06/17 02/03/18 documented as of this encounter
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
--- OUTSIDE RECORDS SUMMARY | 2022-03-06 07:11 | XMS_ITS | Encounter Summary ---
:1995 Author Organization [facility] Address [address] [place] [address] Care Team Providers Name Role Phone Suni Stevens APRN, C.N.P. 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 [facility] [place], [place] [address] (Wo rk) 04/29/2022 Office Visit Endocrinology Meryl Julio M .D. [address] [place] [address] (Wo rk) documented as of this encounter Visit Diagnoses Not on filedocumented in this encounter Care Teams Senior Counsel Commercial Relationship Specialty Start Date End Date Suni Stevens APRN, C.N.P. PCP - General 03/06/17 02/03/18 documented as of this encounter
--- OUTSIDE RECORDS SUMMARY | 2022-03-06 07:11 | XMS_ITS | Encounter Summary ---
:1995 Author Organization [facility] Address [address] [place] [address] Care Team Providers Name Role Phone Suni Stevens APRN, C.N.P. 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 [address] [place], [place] [address] (Wo rk) 04/29/2022 Office Visit Endocrinology Meryl Julio M .D. [address] [place], [place] [address] (Wo rk) documented as of this encounter Procedures Procedure Name Priority Date/Time Associated Diagnosis Comme nts TISSUE TRANSGLUTAMINASE Routine 10/08/2017 10:04 Diarrhea Results for this (TTG) ABS, IGA AND IGG AM CDT proce dure are in PROFILE, S the results section. THYROID-STIMULATING Routine 10/08/2017 10:04 Hypothyroidism Re sults for this HORMONE-SENSITIVE AM CDT procedure are in (S-TSH) the results section. T4 (THYROXINE), FREE, S Routine 10/08/2017 10:04 Hypothyroidis m Results for this AM CDT procedure are i n the results section. BASIC METABOLIC PANEL, Routine 10/08/2017 10:04 Diarrhea R esults for this S/P AM CDT procedure are i n the results section. documented in this encounter Results BMP (Basic Metabolic Panel) (10/08/2017 10:04 AM CDT) P athologist Signature Potassium, S CANCELED 3.6 - 5.2 10/08/2017 [facility] mmol/L 12:38 PM CDT [facility] Comment: REVISED RESULTS ----PREVIOUSLY REPORTED ---- 4.4, Flagged as: Normal (Reported 10/08/2017 11:04) Sodium, S CANCELED 135 - 145 mmol/L 10/08/2017 12:38 PM CDT [facility] Comment: REVISED RESULTS ----PREVIOUSLY REPORTED ---- 141, Flagged as: Normal (Reported 10/08/2017 11:04) Chloride, S CANCELED 98 - 107 mmol/L 10/08/2017 12:38 PM [facility] Comment: REVISED RESULTS ----PREVIOUSLY REPORTED ---- 100, Flagged as: Normal (Reported 10/08/2017 11:04) Bicarbonate, S CANCELED 22 - 29 mmol/L 10/08/2017 12:38 PM T [facility] Comment: REVISED RESULTS ----PREVIOUSLY REPORTED ---- 27, Flagged as: Normal (Reported 10/08/2017 11:04) Anion Gap CANCELED 7 - 15 10/08/2017 12:38 PM T [facility] Comment: REVISED RESULTS ----PREVIOUSLY REPORTED ---- 14, Flagged as: Normal (Reported 10/08/2017 11:04) BUN (Blood Urea CANCELED 6 - 21 mg/dL 10/08/2017 12:38 PM [facility] Nitrogen), S [facility] Comment: REVISED RESULTS ----PREVIOUSLY REPORTED ---- 12, Flagged as: Normal (Reported 10/08/2017 11:04) Creatinine CANCELED 0.59 - 1.04 mg/dL 10/08/2017 12:38 P [facility] Comment: REVISED RESULTS ----PREVIOUSLY REPORTED ---- 0.73, Flagged as: Normal (Reported 10/08/2017 11:04) eGFR-Non Black/ CANCELED >=60 mL/min/BSA 10/09/19 18 12:38 PM [facility] Comment: REVISED RESULTS ----ADDITIONAL INFORMATION---- Estimated GFR calculated using the 2009 CKD_EPI creatinine equation. ----PREVIOUSLY REPORTED ---- >90, Flagged as: Normal (Reported 10/08/2017 11:04) eGFR-Black/ CANCELED >=60 mL/min/BSA 10/08/2017 12:3 [address] [facility] Comment: REVISED RESULTS ----ADDITIONAL INFORMATION---- Estimated GFR calculated using the 2009 CKD_EPI creatinine equation. ----PREVIOUSLY REPORTED ---- >90, Flagged as: Normal (Reported 10/08/2017 11:04) Calcium, Total, S CANCELED 8.6 - 10.0 mg/dL 10/08/2017 12:3 8 PM [facility] Comment: REVISED RESULTS ----PREVIOUSLY REPORTED ---- 10.4, Flagged as: Abnormal_High (Reported 10/08/2017 11:04) Glucose, S CANCELED 70 - 140 mg/dL 10/08/2017 12:38 PM CDT [facility] Comment: REVISED RESULTS ----PREVIOUSLY REPORTED ---- 89, Flagged as: Normal (Reported 10/08/2017 11:04) Specimen Anatomical Collection Method Collection Time Receive d Time (Source) Location / / Volume Laterality Blood (Blood, 10/08/2017 10:04 10/08/2017 Venous) AM CDT 10:08 AM CDT Narrative [facility] - 10/08/2017 12:39 PM CDT Basic Metabolic Panel, S was cancelled on 10/08/2017 at 12:38; Wrong test ordered. Jalil Parikh M.D. LAB BLOOD ADD-ON Performing Organization Address [facility]/ZIP Code Phon e Number [address] [address] LAB tTG (Tissue Transglutaminase) Antibodies, IgA and IgG Profile (10/08/2017 10:04 AM CDT) Patholo gist Method Time Signature Tissue <0.5 <15.0 10/08/2017 [facility] Transglutaminase Ab, U/mL 10:48 PM CDT HEALTH IgA, S [facility] Tissue <0.8 <15.0 10/08/2017 [facility] Transglutaminase Ab, U/mL 10:48 PM CDT HEALTH IgG, S [facility] Specimen Anatomical Collection Method Collection Time Receive d Time (Source) Location / / Volume Laterality Blood (Blood, 10/08/2017 10:04 10/08/2017 7:23 Venous) AM CDT PM CDT Jalil Parikh M.D. LAB BLOOD ADD-ON Performing Organization Address City/[facility]/ZIP Code Phon e Number [address] [phone] [facility] (ABNORMAL) T4, free (10/08/2017 10:04 AM CDT) P athologist Signature T4 1.9 (H) 0.9 - 1.7 10/08/2017 [facility] (Thyroxine), ng/dL 11:04 AM CDT [facility] Comment: Biotin has been identified [...] / / Volume Laterality Blood (Blood, 10/08/2017 10:04 10/08/2017 Venous) AM CDT 10:08 AM CDT Jalil Parikh M.D. LAB BLOOD ADD-ON Performing Organization Address City/[facility]/ZIP Code Phon e Number [facility] [address] [place] [address] LAB S-TSH (Thyroid-Stimulating Hormone - Sensitive) (10/08/2017 10:04 AM CDT) P athologist Signature TSH, Sensitive 1.7 0.3 - 4.2 10/08/2017 [facility] mIU/L 11:04 AM CDT [facility] Comment: Biotin has been identified [...] / / Volume Laterality Blood (Blood, 10/08/2017 10:04 10/08/2017 Venous) AM CDT 10:08 AM CDT Jalil Parikh M.D. LAB BLOOD ADD-ON Performing Organization Address City/State/ZIP Code Phon e Number [facility] [address] [place] [address] LAB documented in this encounter Visit Diagnoses Diagnosis Hypothyroidism Diarrhea Thyroiditis Deric's documented in this encounter Care Teams Clinical Research Spec Relationship Specialty Start Date End Date Suni Stevens APRN, C.N.P. PCP - General 03/06/17 02/03/18 documented as of this encounter
--- OUTSIDE RECORDS SUMMARY | 2022-03-06 07:11 | XMS_ITS | Encounter Summary ---
:1995 Author Organization [facility] Address [address] [place] [address] Care Team Providers Name Role Phone Suni Stevens APRN, C.N.P. Primary Care Provider Unavailabl e Reason for Referral Outpatient (Routine) - Closed Specialty Diagnoses / Procedures Referred By Contact Refer red To Contact Urology Diagnoses Hematuria Pain Flank Suni Stevens APRN, [facility] C.N.P. [address] [place] [address] Referral ID Status Reason Start Date Expiration Date Visits Requ ested Visits Authorized [id number] Closed 10/08/2017 04/06/2018 1 1 Encounter Details Date Type Department Care Team Description 10/08/2017 Clinical Communication Department of Antoinette Malcolm ma, [place], C.N.P. [place] [address] [place] [address] 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 - 10/12/2017 7:26 AM CDT Message sent to patient via the portal. Telephone Encounter - Suni Stevens APRN, C.N.P. - 10/08/2017 4:56 PM CDT Called patient, left a voicemail for her to return my call. Telephone Encounter - Guerda Garcia R.N. - 10/08/2017 12:38 PM CDT Suni, Pt returning call to speak with you regarding the plan moving forward. She will be reporting to the hospital to have CBC done, urine done at hospital. Looks like those results are in as well. She has an additional appt this afternoon and thinks that around 4PM would be a good time to get a hole of her. Please advise if I can help. Thank you! Telephone Encounter - Kristy Ivan - 10/08/2017 11:52 AM CDT Felecia is returning Suni Stevens's call. Felecia states that she has had recent labs with Endocrinology at [facility] and is wondering if Suni could use those. Please call to review Suni's message/results/orders. Thank you [phone] Message is okay Telephone Encounter - Suni Stevens APRN, C.N.P. - 10/08/2017 11:37 AM CDT Called patient to discuss UA results - left a voicemail for her to return my call. 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 We need to get both the image disc and result report of the CT scan that she had at the urgent care when she was initially frankie luated for this. If that is not possible, we will need to repeat a CT urogram. I would also like to get her in to urology for further evaluation. She will need blood work as well. I have ordered the blood work and urology consult. Let me know what she says about the CT scan. If her work up with urology is negative, would recommend consultation with nephrology as a next step. Let me know if she has any questions or concerns. Thanks. documented in this encounter Plan of Treatment Upcoming Encounters Date Type Specialty Care Team Description 04/22/2022 Appointment Laboratory Medicine Meryl Julio M.D. [address] [place], [place] [address] (Wo rk) 04/29/2022 Office Visit Endocrinology Meryl Julio M .D. [address] [place], [place] [address] (Wo rk) Scheduled Referrals Name Type Priority Associated Diagnoses Order S chedule Urology - General Outpatient Referral Routine Hematuria Expected: - lower urinary Pain Flank 10/08/2017 symptoms consult (Approximat e), (clinic) Expires: 10/08/2020 documented as of this encounter Results CBC with Differential, Blood (10/08/2017 2:06 PM CDT) athologist Signature Hemoglobin 14.6 11.6 - 10/08/2017 [facility] 15.0 g/dL 2:34 PM CDT [facility] Hematocrit 43.5 35.5 - 10/08/2017 [facility] 44.9 % 2:34 PM CDT [facility] Erythrocytes 4.71 3.92 - 10/08/2017 [facility] 5.13 2:34 PM CDT HEALTH x10(12)/L [facility] MCV 92.4 78.2 - 10/08/2017 [facility] 97.9 fL 2:34 PM CDT [facility] RBC Distrib Width 12.4 12.2 - 10/08/2017 [facility] 16.1 % 2:34 PM CDT [facility] Platelet Count 369 157 - 371 10/08/2017 [facility] x10(9)/L 2:34 PM CDT [facility] Leukocytes 8.8 3.4 - 9.6 10/08/2017 [facility] x10(9)/L 2:34 PM CDT [facility] Neutrophils 5.08 1.56 - 10/08/2017 [facility] 6.45 2:34 PM CDT HEALTH x10(9)/L [facility] Lymphocytes 3.02 0.95 - 10/08/2017 [facility] 3.07 2:34 PM CDT HEALTH x10(9)/L [facility] Monocytes 0.47 0.26 - 10/08/2017 [facility] 0.81 2:34 PM CDT HEALTH x10(9)/L [facility] Eosinophils 0.16 0.03 - 10/08/2017 [facility] 0.48 2:34 PM CDT HEALTH x10(9)/L [facility] Basophils 0.02 0.01 - 10/08/2017 [facility] 0.08 2:34 PM CDT HEALTH x10(9)/L [facility] Specimen Anatomical Collection Method Collection Time Receive d Time (Source) Location / / Volume Laterality Blood (Blood, 10/08/2017 2:06 PM 10/09/19 18 2:24 Venous) CDT PM CDT Suni Stevens APRN C.N.P. LAB BLOOD ADD-ON Performing Organization Address City/State/ZIP Code Phon e Number [facility] [address] [place] [address] LAB (ABNORMAL) CMP (Comprehensive Metabolic Panel) (10/08/2017 12:40 PM CDT) athologist Signature Potassium, S 4.4 3.6 - 5.2 10/08/2017 [facility] mmol/L 12:53 PM [facility] Sodium, S 140 135 - 145 10/08/2017 [facility] mmol/L 12:53 PM [facility] Chloride, S 98 98 - 107 10/08/2017 [facility] mmol/L 12:53 PM [facility] Bicarbonate, S 25 22 - 29 10/08/2017 [facility] mmol/L 12:53 PM T [facility] Anion Gap 17 (H) 7 - 15 10/08/2017 [facility] 12:53 PM [facility] BUN (Blood Urea 12 6 - 21 10/08/2017 [facility] Nitrogen), S mg/dL 12:53 PM [facility] Creatinine 0.75 0.59 - 10/08/2017 [facility] 1.04 mg/dL 12:53 PM [facility] eGFR-Non >90 >=60 10/08/2017 [facility] Black/ mL/min/BSA 12:53 PM T [facility] Comment: ----ADDITIONAL INFORMATION---- Estimated GFR calculated using the 2009 CKD_EPI creatinine equation. eGFR-Black/ >90 >=60 mL/min/BSA 12:53 [facility] Comment: ----ADDITIONAL INFORMATION---- Estimated GFR calculated using the 2009 CKD_EPI creatinine equation. Calcium, Total, S 10.4 (H) 8.6 - 10.0 10/08/2017 12:53 [facility] mg/dL [facility] Glucose, S 87 70 - 140 mg/dL 10/08/2017 12:53 [facility] Protein, Total, S 7.4 6.3 - 7.9 g/dL 10/08/2017 12:53 [facility] Albumin, S 4.8 3.5 - 5.0 g/dL 10/08/2017 12:53 [facility] Aspartate 21 8 - 43 U/L 10/08/2017 12:53 [facility] Aminotransferase (AST), S [facility] Alkaline Phosphatase, S 121 (H) 37 - 98 U/L 10/08/2017 12: 53 [facility] Alanine Aminotransferase 36 7 - 45 U/L 10/08/2017 12: 53 [facility] (ALT), S [facility] Bilirubin, Total, S 0.3 <=1.2 mg/dL 10/08/2017 12:53 [facility] Specimen Anatomical Collection Method Collection Time Receive d Time (Source) Location / / Volume Laterality Blood (Blood, 10/08/2017 12:40 10/08/2017 Venous) PM CDT 12:40 PM CDT Suni Stevens APRN, C.N.P. LAB BLOOD ADD-ON Performing Organization Address City/State/ZIP Code Phon e Number [facility] [address] [place] [address] LAB documented in this encounter Visit Diagnoses Diagnosis Hematuria - Primary Pain Flank documented in this encounter Care Teams It Risk Advisor Relationship Specialty Start Date End Date Suni Stevens, BARBARA, C.N.P. PCP - General 03/06/17 02/03/18 documented as of this encounter
--- OUTSIDE RECORDS SUMMARY | 2022-03-06 07:11 | XMS_ITS | Encounter Summary ---
:1995 Author Organization [facility] Address [address] [place] [address] Care Team Providers Name Role Phone Suni Stevens APRN, C.N.P. 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 norethindrone Take 1 tablet (0.35 28 tablet 12 08/06/2017 (for_MICRONOR) 0.35 mg mg total) by mouth tablet daily. propranolol TAKE 1 TABLET BY 4 06/15/2017 [...] 04/22/2022 Appointment Laboratory Medicine Meryl Julio M.D. [address] [place] [address] (Hector martin) 04/29/2022 Office Visit Endocrinology Meryl Julio M .D. [address] [place] [address] (Wo rk) documented as of this encounter Procedures Procedure Name Priority Date/Time Associated Diagnosis Comme nts CORTISOL, SALIVA Routine 08/05/2017 11:00 PM Abnormal Weight G ain Results for this CDT procedure are i n the results section. documented in this encounter Results Cortisol, Saliva (08/05/2017 11:00 PM CDT) P athologist Signature Midnight <50 <100 ng/dL 08/12/2017 [facility] Cortisol 7:50 PM CDT [facility] Comment: ----ADDITIONAL INFORMATION---- This test was developed and its performa nce characteristics determined by [facility] in a manner consistent with CLIA requirements. This test has not been cleared or approved by the [place] Bhavin d and Drug Administration. Specimen Anatomical Collection Method Collection Time Receive d Time (Source) Location / / Volume Laterality Saliva 08/05/2017 11:00 08/10/2017 PM CDT 11:49 AM CDT Jalil Parikh M.D. LAB BODY FLUIDS AND STOOLS O RDERABLES Performing Organization Address City/State/ZIP Code Phon e Number [facility] [address] [place] [address] documented in this encounter Visit Diagnoses Diagnosis Abnormal Weight Gain documented in this encounter Care Teams Supply Chain Intern Relationship Specialty Start Date End Date Suni Stevens APRN, C.N.P. PCP - General 03/06/17 02/03/18 documented as of this encounter
--- OUTSIDE RECORDS SUMMARY | 2022-03-06 07:12 | XMS_ITS | Encounter Summary ---
:1995 Author Organization [facility] Address [address] [place] [address] Care Team Providers Name Role Phone Unavailable Primary Care Provider Unavailable Encounter Details Date Type Department Care Team Description 01/05/2015 Hospital Encounter HX [facility] Nelson Martinez D.O. 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 - 01/05/2015 4:10 PM CDT Depo-Provera Administration Depo-Provera Administration Entered On: 01/05/2015 16:11 CDT Performed On: 01/05/2015 16:10 CDT by NIMCO MALLOY LPN Depo-Provera Administration Annual Exam in the Past 12 Months : Yes Last Depo-Provera Given : 10/20/2014 CDT Needs test : No NIMCO MALLOY LPN - 01/05/2015 16:10 CDT Vitals/Ht/Wt Peripheral Pulse Rate : 86 /min Heart Rhythm : Regular Systolic Blood Pressure : 130 mmHg Diastolic Blood Pressure : 92 mmHg (>HHI) NIBP Mean : 105 mmHg BP Location : Right upper extremity Blood Pressure Cuff Size : Large Height : 168 cm(Converted to: 5 ft 6 inch(es), 66 inch(es)) Actual Weight : 103.2 kg(Converted to: 227 lb 8 oz) Dosing Weight Clinic : 103.2 kg Clinic BSA : 2.19 Body Mass Index : 36.56 kg/m2 NIMCO MALLOY LPN - 01/05/2015 16:10 CDT Source: [employer] POWERCHART Document Id: [id number] CDT!18 documented in this encounter Nursing Notes Nimco Malloy L.P.N. - 01/05/2015 8:18 AM CDT Ambulatory Patient Education The following Patient Education Materials have been given to the patient: Patient Education Materials: DrugSheets Medroxyprogesterone Acetate Suspension for injection [Contraception] DrugSheets 369 Medroxyprogesterone Acetate Suspension for injection [Contraception] What is this medicine? MEDROXYPROGESTERONE (me DROX ee proe JONES te arvin) contraceptive injections prevent . They provide effective control for 3 months. Depo-subQ Provera 104 is also used for treating pain related to endometriosis. This medicine may be used for other purposes; ask your health care provider or pharmacist if you have questions. What should I tell my health care provider before I take this medicine? They need to know if you have any of these conditions: ?? frequently drink alcohol ?? asthma ?? blood vessel disease or a history of a blood clot in the lungs or legs ?? bone disease such as osteoporosis ?? breast cancer ?? diabetes ?? eating disorder (anorexia nervosa or bulimia) ?? high blood pressure ?? HIV infection or AIDS ?? kidney disease ?? liver disease ?? mental depression ?? migraine ?? seizures (convulsions) ?? stroke ?? tobacco smoker ?? vaginal bleeding ?? an unusual or allergic reaction to medroxyprogesterone, other hormones, medicines, foods, dyes, or preservatives ?? or trying to get ?? breast-feeding How should I use this medicine? Depo-Provera Contraceptive injection is given into a muscle. Depo-subQ Provera 104 injection is given under the skin. These injections are given by a health child care supervisor. You must not be before getting an injection. The injection is usually given during the first 5 days after the start of a menstrual period or 6 weeks after delivery of a baby. Talk to your heating element builder regarding the use of this medicine in children. Special care may be needed. These injections have been used in female children who have started having menstrual periods. Overdosage: If you think you have taken too much of this medicine contact a poison control center [facility] at once. NOTE: This medicine is only for you. Do not share this medicine with others. What if I miss a dose? Try not to miss a dose. You must get an injection once every 3 months to maintain control. If you cannot keep an appointment, call and reschedule it. If you wait longer than 13 weeks between Depo-Provera contraceptive injections or longer than 14 weeks between Depo-subQ Provera 104 injections, you could get . Use another method for control if you miss your appointment. You may also need a test before receiving another injection. What may interact with this medicine? Do not take this medicine with any of the following medications: ?? bosentan This medicine may also interact with the following medications: ?? aminoglutethimide ?? antibiotics or medicines for infections, especially rifampin, rifabutin, rifapentine, and griseofulvin ?? aprepitant ?? barbiturate medicines such as phenobarbital or primidone ?? bexarotene ?? carbamazepine ?? medicines for seizures like ethotoin, felbamate, oxcarbazepine, phenytoin, topiramate ?? modafinil ?? Khoa's wort This list may not describe all possible interactions. Give your health care provider a list of all the medicines, herbs, non-prescription drugs, or dietary supplements you use. Also tell them if you smoke, drink alcohol, or use illegal drugs. Some items may interact with your medicine. What should I watch for while using this medicine? This drug does not protect you against HIV infection (AIDS) or other sexually transmitted diseases. Use of this product may cause you to lose calcium from your bones. Loss of calcium may cause weak bones (osteoporosis). Only use this product for more than 2 years if other forms of control are not right for you. The longer you use this product for control the more likely you will be at risk for weak bones. Ask your health child care supervisor how you can keep strong bones. You may have a change in bleeding pattern or irregular periods. Many females stop having periods while taking this drug. If you have received your injections on time, your chance of being is very low. If you think you may be , see your health child care supervisor as soon as possible. Tell your health child care supervisor if you want to get within the next year. The effect of this medicine may last a long time after you get your last injection. What side effects may I notice from receiving this medicine? Side effects that you should report to your doctor or health child care supervisor as soon as possible: ?? allergic reactions like skin rash, itching or hives, swelling of the face, lips, or tongue ?? breast tenderness or discharge ?? breathing problems ?? changes in vision ?? depression ?? feeling faint or lightheaded, falls ?? fever ?? pain in the abdomen, chest, groin, or leg ?? problems with balance, talking, walking ?? unusually weak or tired ?? yellowing of the eyes or skin Side effects that usually do not require medical attention (report to your doctor or health child care supervisor if they continue or are bothersome): ?? acne ?? fluid retention and swelling ?? headache ?? irregular periods, spotting, or absent periods ?? temporary pain, itching, or skin reaction at site where injected ?? weight gain This list may not describe all possible side effects. Call your doctor for medical advice about sideeffects. You may report side effects to FDA at 3-771-EYJ-0476. Where should I keep my medicine? This does not apply. The injection will be given to you by a health child care supervisor. NOTE:This sheet is a summary. It may not cover all possible information. If you have questions aboutthis medicine, talk to your doctor, pharmacist, or health care provider. Copyright?? 2012 Gold Standard Source: [facility] POWERCHART Document Id: [id number] documented in this encounter Plan of Treatment Upcoming Encounters Date Type Specialty Care Team Description 04/22/2022 Appointment Laboratory Medicine Meryl Julio M.D. [facility] [place], [place] [address] (Hector martin) 04/29/2022 Office Visit Endocrinology Meryl Julio M .D. [address] [place], [place] [address] (Hector martin) documented as of this encounter Visit Diagnoses Not on filedocumented in this encounter
--- OUTSIDE RECORDS SUMMARY | 2022-03-06 07:12 | XMS_ITS | Encounter Summary ---
:1995 Author Organization [facility] Address [address] [place] [address] Care Team Providers Name Role Phone Unavailable Primary Care Provider Unavailable Encounter Details Date Type Department Care Team Description 05/22/2016 Hospital Encounter HX [facility] Lanre Campos D.O. 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 documented as of this encounter Last Filed Vital Signs Vital Sign Reading Time Taken Comments Blood Pressure - - Pulse - - Temperature - - Respiratory Rate - - Oxygen Saturation - - Inhaled Oxygen Concentration - - Weight - - Height 168 cm (5' 6.14) 05/22/2016 8:46 AM DINING ROOM HOST Body Mass Index - - documented in this encounter Miscellaneous Notes Miscellaneous - Carolyn Estrada L.P.NSebastian - 05/22/2016 9:16 AM CST PPD Screen PPD Screen Entered On: 05/22/2016 9:16 DINING ROOM HOST Performed On: 05/22/2016 9:16 DINING ROOM HOST by CAROLYN ESTRADA LPN PPD Screening Bloody Sputum : No Fatigue : No Fever : No Loss of Appetite : No Night Sweats : No Persistent Cough Greater Than 3 Weeks : No Weight Loss : No CAROLYN ESTRADA LPN - 05/22/2016 9:16 DINING ROOM HOST TB Symptoms Grid Alcohol and Drug Use : No Employee of Institutional Living Environment : No Health Care Employee : Yes History of Exposure to TB : No History of Positive Chest X-Ray for TB : No History of Positive TB Skin Test : No Homeless : No Known Immunosuppression : No Recent Immigrant : No Resident of Institutional Living Environment : No CAROLYN ESTRADA LPN - 05/22/2016 9:16 DINING ROOM HOST PPD Screening Grid Severe reaction to previous TST (necrosis, blistering, anaphylactic shock, or ulcerations) : No Smallpox vaccine within last 4 - 6 weeks : No Yellow Fever vaccine in last 4 - 6 weeks : No Varicella vaccine within last 4 - 6 weeks : No Measles vaccine within last 4 - 6 weeks : No Any live virus vaccine within last 4 - 6 weeks : No CAROLYN ESTRADA LPN - 05/22/2016 9:16 DINING ROOM HOST Source: [facility] POWERCHART Document Id: [id number] DINING ROOM HOST!28 NG ROOM HOST documented in this encounter Plan of Treatment Upcoming Encounters Date Type Specialty Care Team Description 04/22/2022 Appointment Laboratory Medicine Meryl Julio M.D. [address] [place] [address] (Hector martin) 04/29/2022 Office Visit Endocrinology Meryl Julio M .D. [address] [place] [address] (Hector martin) documented as of this encounter Visit Diagnoses Not on filedocumented in this encounter
--- OUTSIDE RECORDS SUMMARY | 2022-03-06 07:12 | XMS_ITS | Encounter Summary ---
:1995 Author Organization [facility] Address [address] [place] [address] Care Team Providers Name Role Phone Unavailable Primary Care Provider Unavailable Encounter Details Date Type Department Care Team Description 11/12/2016 Hospital Encounter HX [facility] Rj Marks M .D. 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 (for_ORTHO-CYCLEN) 0.25- mg-35 mcg per tablet documented as of this encounter Progress Notes Rj Hanson M.D. - 11/12/2016 2:08 PM CDT Progress Note, Obstetrics_Gynecology 21-year-old female was referred to my clinic for lower left lower abdominal pain. She has multiple gynecology issues as mentioned below and was seen by my partner Miriam Callejas 2 weeks ago. She was referred to my clinic for further management of her gynecological issues. She reports having pelvic pain around the time of her periods since menarche. At the age of 14 she had a diagnostic lap at an outside facility and was informed that she has endometriosis. Per patient endometriotic lesions for blunt during the procedure. She reports improvement in the symptoms after that procedure. She was placed on Depo-Provera to control her symptoms. She continue using Depo-Proverato the age of 20 years. She started Depo-Provera. When she was on Depo-Provera she reports that her periods were regular denied any pain. We do not have records from her procedure. Last year she was seen by another sales supervisor and was advised to stop using Depo-Provera as she hasbeen using Depo for almost 6 years. She was switched to control both. She started taking birthcontrol pills from December 2015 and continued them till July 2016. She reports that she started having irregular vaginal bleeding with control pills. There was a time in between where she bled for almost 3 months continuously. She also reports that she always use to have irregular and heavy periods. She would skip months however her periods were more regular when she was on Depo-Provera. She had an extensive workup in May 2016 and was also found to have elevated testosterone levels. Given her current clinical picture of oligomenorrhea and elevated androgens she was diagnosed with polycystic ovarian disease. We do have lab results from that visit. She has recently moved to [place]. She was seen in our clinic 2 weeks ago for further management of polycystic ovarian disease. She had a transvaginal ultrasound which was normal. She reported a last menstrual period was in July 2016. She started having lower abdominal pain day before yesterday. Yesterday morning she started having vaginal bleeding. Initially she was passing big clots now she believes that the bleeding is slowing down. She is taking Aleve for her pain control at present. Last time she took Aleve was yesterday she has not had any pain medications since morning. She reports that thepain is 8.10 in intensity at present. She was crying and clinic in pain. She reports that Aleve cause her to have gastric upset. I present she is not taking any hormones for ovarian suppression. PHYSICAL EXAM: VITAL SIGNS: Blood pressure 1/38 upon 88 mmHg, height 168 cm, weight 115.5 kg, BMI 40.92 kg/meter square. GENERAL: Alert oriented appears to be in moderate distress. ABDOMEN: Soft nondistended no rebound tenderness or rigidity. There is from tenderness on deep palpation on left lower quadrant. GENITOURINARY: External genitalia appear to be normal. Bimanual exam was done the was no pain on upon entry into the vagina. The process could not be examined because of the body habitus. There was no cervical motion tenderness. No adnexal masses or tenderness felt. ASSESSMENT: 1. Lower abdominal pain. 2. Polycystic ovarian disease. 3. Abnormal uterine bleeding. DATA REVIEWED: Transvaginal ultrasound on 11/11/2016 uterus measuring 5.9 x 4.2 x 2.6 cm. Endometrial thickness 6 mm. Right and left ovaries appears to be normal with normal Doppler flow. DHEA on 07/21/2016 was normal. Testosterone 1 07/21/2016: 63 DISCUSSION: I went over her medical records from [facility] and informed that most likely she has polycystic ovarian disease based on her labs and clinical presentation. She reports having irregular periods prior to start using the pool and both control pills. I informed her that the irregular bleeding which she is having at present could be because of Depo-Provera withdrawn or because she may be going back to having irregular periods with she used to have before starting Depo-Provera . Since she has been off of Depo- Provera for more than 6 months no I initially offered her Depo-Provera. Patient reports that she has gained a lot of weight on Depo-Provera and does not desire to continue with Depo-Provera. In that case I offered her to continue with control pills. She reports that she has been bleeding continuously for 3 months on control pills and was unsure. I informed her that most likely she may be used using low-dose hormone pain which may not be sufficient to control the heavy bleeding. I offered her treatment with Sprintec 0.25-35 daily. Five hundred at the current bleeding maybe her regular period and this should resolve and explanted 2 weeks. However if she continues to bleed beyond 2 weeks she she is advised to contact my office and I may consider increasing herbirth control pills and she will take 4 pills on day 1, 3 pills on day 2, 2 pills on day 3 and 1 pill thereafter. Based on my exam I do not believe she has pelvic pain however she does have a left lower abdominal pain. She has a history of recurrent pyelonephritis in the past. I informed her that she is a young healthy person and should not have recurrent pyelonephritis. She reports she gets 1-2 episodes of kidney infections every year. she has never been worked up for renal stones. I advised her to have a urinalysis and urine culture today to rule out any kidney stones or any renal infection which may also present in a similar way. She is in agreement with this. Her vaginal ultrasound is normal. She reports that she has endometriosis. I do not have operative report from her previous provider who did diagnostic laparoscopy at 14 years of age. Based on my today exam it is difficult to say whether she has endometriosis or not. She denies any pain with intercourse. Her pain is only during the time of her periods. Today she was signed patient information release well move will try to get the operative report from her previous provider. I have given her 600 mg Motrin in the clinic it seems to be somewhat relieving her pain. I have advised her to continue taking Aleve at home. She is also advised to take Zantac for gastric upset secondary to Aleve. She is in agreement with this PLAN: I have called in a prescription for Sprintec with 11 refills. She is advised to take it at least 3 months to see whether it improves her symptoms. She is advised to continue taking Aleve on a scheduledbasis and add Zantac to help the GI symptoms. We will try to get operative report from her previous provided in the meantime. She is advised to follow up in clinic in 3 months. If during this time her symptoms get worse she is advised to contact my office and will try to see her sooner. She is in agreement with this plan. All questions were answered to the best of my ability. I spent about 90 minutes with the patient; 75 minutes were spent in direct counselling and coordination of care. Electronically Signed By: RJ HANSON MD On: 11/13/2016 04:15 PM Modified by and Electronically Signed by: RJ HANSON MD On: 11/13/2016 03:27 PM Source: [facility] POWERCHART Document Id: [id number] documented in this encounter Miscellaneous Notes Miscellaneous - Lemuel Gonzalez, L.P.N. - 11/12/2016 2:07 PM CDT Adult Hospital Internship Intake/History Adult Hospital Internship Intake/History Entered On: 11/12/2016 14:10 CDT Performed On: 11/12/2016 14:07 CDT by LEMUEL GONZALEZ LPN Intake Chief Complaint : Discuss endometriosis, Pelvic ultra sound done 11-11-16 Systolic Blood Pressure : 138 mmHg Diastolic Blood Pressure : 88 mmHg NIBP Mean : 105 mmHg BP Location : Right upper extremity Blood Pressure Cuff Size : Large Height : 168 cm(Converted to: 5 ft 6 inch(es), 66 inch(es)) Actual Weight : 115.5 kg(Converted to: 254 lb 10 oz) Weight Source : Standing scale Dosing Weight Clinic : 115.5 kg Clinic BSA : 2.32 Body Mass Index : 40.92 kg/m2 LEMUEL GONZALEZ LPN - 11/12/2016 14:07 CDT General Info Information Given By : Patient Preferred Communication Mode : Verbal Languages : Czech Is Patient Female and 13-50 no hysterectomy : Yes Status : Patient denies Are you ? : No LEMUEL GONZALEZ LPN - 11/12/2016 14:07 CDT Subjective Pain Symptoms : Yes LEMUEL GONZALEZ [facility] - 11/12/2016 14:07 CDT Pain Scale Pain Scale Verbal 0-10 : Open LEMUEL GONZALEZ [facility] - 11/12/2016 14:07 CDT Pain Pain Assessment Grid Pain 1 Location : Abdomen Laterality : Left Intensity : 9 LEMUEL GONZALEZ [facility] - 11/12/2016 14:07 CDT Dependent Habits Exposure to Tobacco Smoke : Other: NEVER Smoking Status : Never smoker Tobacco 2A : No Tobacco Use/Currently Using : No Tobacco Use/Last 30 Days : No Tobacco Use/Last 12 months : No LEMUEL GONZALEZ [facility] - 11/12/2016 14:07 CDT Caffeine Use Grid Caffeine Use : Current Current Type : Soft drinks Coffee Frequency : Daily Daily Amount : 1 1 cup LEMUEL GONZALEZ [facility] - 11/12/2016 14:07 CDT LEMUEL GONZALEZ [facility] - 11/12/2016 14:07 CDT Recreational Drug Use Grid Drug Use : None LEMUEL GONZALEZ [facility] - 11/12/2016 14:07 CDT [facility] Document Id: [id number] CDT!52 documented in this encounter Plan of Treatment Upcoming Encounters Date Type Specialty Care Team Description 04/22/2022 Appointment Laboratory Medicine Meryl Julio M.D. [address] [place] [address] (Hector martin) 04/29/2022 Office Visit Endocrinology Meryl Julio M .D. [address] [place] [address] (Hector martin) documented as of this encounter Visit Diagnoses Not on filedocumented in this encounter
--- OUTSIDE RECORDS SUMMARY | 2022-03-06 07:12 | XMS_ITS | Encounter Summary ---
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 [address] [place] [address] (Wo veronica) 04/29/2022 Office Visit Endocrinology Meryl Julio M .D. [address] [place] [address] (Wo veronica) documented as of this encounter Visit Diagnoses Not on filedocumented in this encounter
--- OUTSIDE RECORDS SUMMARY | 2022-03-06 07:12 | XMS_ITS | Encounter Summary ---
:1995 Author Organization [facility] Address [address] [place] [address] Care Team Providers Name Role Phone Suni Stevens APRN, C.N.P. Primary Care Provider Unavailabl e Reason for Visit Reason Onset Date Comments Med Refill 04/03/2017 90 refills Levothyro xine, Metformin, OCP Encounter Details Date Type Department Care Team Description 04/03/2017 Refill Department of [place], Nery K, Med Refill (90 refills Endocrinology in [place], R.N. 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 - 04/03/2017 9:09 AM CST Pt requests 90 day refills ICE CHECKER documented in this encounter Plan of Treatment Upcoming Encounters Date Type Specialty Care Team Description 04/22/2022 Appointment Laboratory Medicine Meryl Julio M.D. [address] [place] [address] (Hector martin) 04/29/2022 Office Visit Endocrinology Meryl Julio M .D. [address] [place] [address] (Hector martin) documented as of this encounter Visit Diagnoses Diagnosis Polycystic Ovary Syndrome - Primary Hypothyroidism documented in this encounter Care Teams Physical Therapist Relationship Specialty Start Date End Date Suni Stevens APRN, C.N.P. PCP - General 03/06/17 02/03/18 documented as of this encounter
--- OUTSIDE RECORDS SUMMARY | 2022-03-06 07:12 | XMS_ITS | Encounter Summary ---
:1995 Author Organization [facility] Address [address] [place] [address] Care Team Providers Name Role Phone Suni Stevens APRN, C.N.P. Primary Care Provider Unavailabl e Reason for Referral Outpatient (Routine) - Closed Specialty Diagnoses / Procedures Referred By Contact Refer red To Contact Family Medicine Suni Stevens APRN, [facility] [address] [place] [address] Referral ID Status Reason Start Date Expiration Date Visits Requ ested Visits Authorized [id number] Closed 06/25/2017 12/22/2017 1 1 HANGER Encounter Details Date Type Department Care Team Description 06/25/2017 Orders Only Department of Dulce Babcock Medicine in [place], -[id number] [place] ([facility]) [address] [place] [id number] [facility] [phone] Social History Tobacco Use Types Packs/Day Years [...] How often do you attend voodoo or islam More than 4 time s [...] at Date Recorded Female 06/21/2021 12:52 PM 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 [address] [place], [place] [address] (Hector martin) 04/29/2022 Office Visit Endocrinology Meryl Julio M .D. [address] [place], [place] [address] (Hector martin) Scheduled Referrals Name Type Priority Associated Diagnoses Order S [facility] Family Medicine Outpatient Referral Routine Expec cathy: office visit 10/12/2017, (clinic) Expires: 06/25/2020 documented as of this encounter Visit Diagnoses Not on filedocumented in this encounter Care Teams Reclamation Furnace Operator Relationship Specialty Start Date End Date Suni Stevens, BARBARA, C.N.P. PCP - General 03/06/17 02/03/18 documented as of this encounter
--- OUTSIDE RECORDS SUMMARY | 2022-03-06 07:12 | XMS_ITS | Encounter Summary ---
:1995 Author Organization [facility] Address [address] [place] [address] Care Team Providers Name Role Phone Suni Stevens APRN, C.N.P. 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 tablet metFORMIN Take 1 tablet (500 mg 180 tablet 1 06/16/2017 (for_GLUCOPHAGE) 500 mg total) by mouth 2 tablet (two) times a day. norgestimate-ethinyl Take 1 tablet by 84 tablet 1 08/06/2017 estradiol mouth daily. (for_ORTHO-CYCLEN) 0.25- mg-35 mcg per tablet propranolol TAKE 1 TABLET BY 4 06/15/201705/11/ 018 (for_INDERAL) 40 mg MOUTH 1 HOUR PRIOR TO tablet PRESENTATION OR EXAMS NEEDED FOR ANXIETY spironolactone Take 1 tablet (50 mg 90 tablet 1 06/16/2017 08/06/2017 (for_ALDACTONE) 50 mg total) by mouth tablet daily. documented as of this encounter Plan of Treatment Upcoming Encounters Date Type Specialty Care Team Description 04/22/2022 Appointment Laboratory Medicine Meryl Julio M.D. [address] [place], [place] [address] (Hector martin) 04/29/2022 Office Visit Endocrinology Meryl Julio M .D. [address] [place], [place] [address] (Hector martin) documented as of this encounter Procedures Procedure Name Priority Date/Time Associated Diagnosis Comme nts CORTISOL, SALIVA Routine 08/04/2017 11:00 PM Abnormal Weight G ain Results for this CDT procedure are i n the results section. documented in this encounter Results Cortisol, Saliva (08/04/2017 11:00 PM CDT) P athologist Signature Midnight <50 <100 ng/dL 08/08/2017 [facility] Cortisol 1:13 PM CDT [facility] Comment: ----ADDITIONAL INFORMATION---- This test was developed and its performa nce characteristics determined by [facility] in a manner consistent with CLIA requirements. This test has not been cleared or approved by the [place] [employer]hav[place] d and Drug Administration. Specimen Anatomical Collection Method Collection Time Receive d Time (Source) Location / / Volume Laterality Saliva 08/04/2017 11:00 08/07/2017 PM CDT 11:30 AM CDT Jalil Parikh M.D. LAB BODY FLUIDS AND STOOLS O RDERABLES Performing Organization Address City/State/ZIP Code Phon e Number [facility] [address] [place] [address] documented in this encounter Visit Diagnoses Diagnosis Abnormal Weight Gain documented in this encounter Care Teams Rubber Factory Worker Relationship Specialty Start Date End Date Suni Stevens APRN, C.N.P. PCP - General 03/06/17 02/03/18 documented as of this encounter
--- OUTSIDE RECORDS SUMMARY | 2022-03-06 07:12 | XMS_ITS | Encounter Summary ---
:1995 Author Organization [facility] Address [address] [place] [address] Care Team Providers Name Role Phone Unavailable Primary Care Provider Unavailable Encounter Details Date Type Department Care Team Description 10/09/2016 Hospital Encounter HX [facility] Stevens, Reyna Huddleston, QUALITY ASSOCIATE, C.N.P. 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 - 10/09/2016 7:50 AM CDT CHIEF COMPLAINT Annual wellness exam HISTORY OF PRESENT ILLNESS Flaquito is a 21-year old female with a past medical history significant for hypothyroidism presenting to clinic today for her annual exam. Her concerns today include: Hypothyroidism Patient has a history of hypothyroidism which was diagnosed within the last few years. She is currently taking levothyroxine 100 mcg by mouth daily. She has a primary care provider at her school in [place] who has been prescribing this. Her thyroid was last checked approximately 8 weeks ago and her dose was increased from 75 mcg to 100 mcg. She presents today for a follow-up. She is home from school for the summer. She does report some constipation, fatigue and dry skin. Dysphagia The patient states approximately 1 month ago she noticed she was having some dysphagia. She also reports having a globus sensation in throat. The sensation is not lateralized. She states over the last month the sensation has worsened. The dysphagia is only with solids, it is not with fluids. The dysphagia is constant. She does not have any odynophagia. She has not have difficulty with swallow initiation. She denies any symptoms of acid reflux. She denies any changes in her voice. She does not have any neck stiffness. There is no concern for fevers, weight loss, shortness of breath, history of malignancy. She does report some very mild night sweats, where she wakes up feeling sticky. There is no drenching night sweats where she needs to change her clothes or the bed sheets. She has a past medical history significant for abdominal pain and a cholecystectomy. As part of her workup she did have an upper endoscopy performed at [facility], she estimates this was in 2010 which came back normal. Dysmenorrhea The patient also has a history of dysmenorrhea and PCOS. She is followed by an OBGYN in [place]. She states she was recently diagnosed with PCOS by her OBGYN provider. She tells me she is on an oral contraceptive, however she is unsure of the name. She does report her last menstrual period approximately 2 months ago was very heavy and she ended up bleeding for about 30 days. She was advised by her OBGYN to take 2 of her control pills daily, and this eventually stopped the bleeding. She has not had any bleeding since then. She is not concerned about at this time. She denies any vaginal discharge. Her last Pap smear was in 2014 which was within normal limits. She has signed a release of information at this visit so that we can obtain her previous records from [place]. PAST MEDICAL HISTORY Dysmenorrhea Body mass index (BMI) 40.0-44.9, adult Hypothyroidism Acquired PAST SURGICAL HISTORY Right knee: 05/07/16 Cholecystectomy Appendectomy FAMILY HISTORY Mother: migraine headaches Maternal aunt: kristina thyroiditis MEDICATIONS levothyroxine: 100 mcg,PO,Daily Oral contraceptive ALLERGIES Flonase (Nose bleed) ciprofloxacin clindamycin (anaphylaxis) gentamicin (anaphylaxis) SOCIAL HISTORY The patient is not . She does not have children. 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 Social alcohol. No illicit drug use. No tobacco use. HEALTH MAINTENANCE Colonoscopy: N/A Mammogram: N/A Pap: Up to date Bone Density screening: N/A Vaccinations: Up to date Depression screening: Up to date Lab screening (diabetes & lipids): Due, ordered Vision screening: Up to date Dental exam: Up to date Last menstrual period: 08/23/16 REVIEW OF SYSTEMS GENERAL: Negative for fevers, chills, sweats, weight loss. Positive for fatigue, weight gain HEENT: Negative for blurred vision, double vision, eye pain, sinus problems, hoarseness, difficulty swallowing, mouth sores, diminished hearing, ringing in ears, enlarged glands PULMONARY: Negative for shortness of breath, coughing, wheezing, hemoptysis CARDIAC: Negative for chest pain, palpitations, edema, intermittent claudication BREAST: Negative for nipple discharge, breast lumps, breast tenderness, breast changes ENDOCRINE: Negative for polyuria, polydipsia, polyphagia, ecchymosis GASTROINTESTINAL: Negative for heartburn, nausea, abdominal pain, constipation, diarrhea, hematochezia, changes in bowel movements. Positive for dysphagia. GENITOURINARY: Negative for changes in urination, urinary frequency, incontinence, vaginal discharge, change in sex drive/performance. Positive for menstrual irregularity MUSCULOSKELETAL: Negative for joint pain, joint swelling, joint stiffness, back pain, back stiffness, muscle pain, muscle stiffness NEUROLOGICAL: Negative for significant headaches, dizziness, slurred speech, loss of consciousness, seizures, memory loss INTEGUMENTARY: Negative for skin rashes, sores, changes in moles VITAL SIGNS Temperature Core: 36.8 Peripheral Pulse Rate: 86 Respiratory Rate: 18 SpO2: 96 BLOOD PRESSURE Systolic Blood Pressure: 114 Diastolic Blood Pressure: 72 MEASUREMENTS Height: 168 Actual Weight: 116 Body Mass Index: 41.1 PHYSICAL EXAM GENERAL: well-appearing female PSYCHIATRIC: patient is alert and oriented, makes eye contact, upright posture, calm and pleasant affect SKIN: No suspicious lesions. HEAD: symmetrical features. No lesions visualized. EYES: pupils are equal, round, react to light and accommodate, extra ocular movements intact, conjunctiva clear, red reflex present, no evidence of foreign body appreciated bilaterally, EARS: No pain with palpation, ear canals are clear, tympanic membrane intact, landmarks visualized bilaterally, light reflex visualized, hearing grossly intact bilaterally. NOSE: Pale nasal turbinates bilaterally, no signs of ulceration or polyps. The septum is midline. MOUTH/THROAT: Lips are symmetrical, no lesions. Oral mucosa is pink. Dentition is intact, no sign ofcaries. No erythema or edema of the gingiva. Tongue is midline. Frenulum is intact. No tonsillar edema. NECK: Supple, no lymphadenopathy. Very mild thyromegaly appreciated, no nodules appreciated. Tracheais midline. Carotid arteries +2 bilaterally, no bruit appreciated. CARDIOVASCULAR: Regular rate and rhythm, S1/S2 auscultated, point of maximal impulse is at the 5th intercostal space, mid-clavicular line. No murmurs, gallops, rubs or clicks auscultated. No clubbing, cyanosis or edema. RESPIRATORY: clear to auscultation bilaterally, anterior:posterior diameter 2:1 CHEST: Symmetrical, no lesions, masses or nodules appreciated ABDOMEN: Bowel sounds are active, no sign of masses or distension. No bruits of the renal, iliac, orfemoral arteries. No hepatosplenomegaly. RECTAL: rectal exam is deferred at this time GENITAL: genital exam is deferred at this time LYMPHATIC: No pre-auricular, post-auricular, submandibular, submental, tonsillar, anterior/posteriorcervical, supraclavicular, infraclavicular lymphadenopathy. NEUROLOGICAL/MUSCULOSKELETAL: Cranial nerves 2-12 grossly intact. Deep tendon reflexes +2, negative Romberg, full range of motion without sign of crepitus, tenderness, edema or erythema, muscle strength is 5/5. IMPRESSION/PLAN Health maintenance Patient is due for routine fasting laboratory studies. These were ordered at this visit. She is up-to-date on her Pap smear. She is up-to-date on her vaccinations. We discussed weight loss, eating a well-rounded diet, and increasing her exercise. We also discussed bone health, increasing her calcium and vitamin-D intake. Hypothyroidism We will obtain a TSH with T4 at this visit. We will adjust the dose of her medication based on thoseresults. Dysphagia Ultrasound of the neck, thyroid and soft tissues was ordered at this visit today. We will also obtain some laboratory studies to work this up further. Should these come back normal I would recommend a second opinion with GI. PCOS Recommended continued follow up with her OBGYN provider. Should she have any changes in her symptomswhile she is home from school for the summer I did recommend she be evaluated by OBGYN through [facility]. Follow up with primary care provider in 6 weeks for thyroid check, sooner with any new concerns. The patient verbalizes understanding and agrees with the above plan. Electronically Signed By: REYNA STEVENS CNP, APRN On: 10/09/2016 08:47 AM Modified by and Electronically Signed by: REYNA STEVENS CNP, APRN On: 10/09/2016 08:47 AM Source: [facility] POWERCHART Document Id: [id number] documented in this encounter Miscellaneous Notes Miscellaneous - Reyna Stevens C.N.P., R.N. - 10/14/2016 7:12 AM CDT Addendum by URSULA MOSQUEDA RN on October 14, 2016 10:32:25 CDT Patient returned call. She has her US scheduled for 10/21. She does not have any questions at this time. Addendum by URSULA MOSQUEDA RN on October 14, 2016 09:03:32 CDT left msg to call back. 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 This is the most common cause of hypothyroidism. The treatment for this is not significantly different from what we are already doing, except we should get a thyroid ultrasound on her, which was already ordered at her last visit. Let me know if she has any questions or concerns. Thanks. Source: [facility] POWERCHART Document Id: [id number] Miscellaneous - Reyna Stevens C.N.P., R.N. - 10/09/2016 3:57 PM CDT Addendum by REYNA STEVENS CNP, APRN on October 10, 2016 09:59:27 CDT From: REYNA STEVENS CNP, APRN Sent: 10/10/2016 09:59:27 CDT Subject: RE:synthroid Approved Order:levothyroxine (levothyroxine 100 mcg (0.1 mg) oral tablet) 1 tab(s) PO Daily Qty: 90 tab(s) Refills: 3 Substitutions Allowed Route To Pharmacy - [facility] Signed by REYNA STEVENS CNP, BARBARA 10/10/2016 09:59:20 Addendum by LILI MONDRAGON RN on October 10, 2016 09:21:36 CDT From: LILI MONDRAGON RN To: REYNA STEVENS CNP, QUALITY ASSOCIATE; Sent: 10/10/2016 09:21:36 CDT Subject: synthroid On hold pending signature Order:levothyroxine (levothyroxine 100 mcg (0.1 mg) oral tablet) 1 tab(s) PO Daily Qty: 90 tab(s) Refills: 3 Substitutions Allowed Route To [facility] Discontinue:levothyroxine (levothyroxine 100 mcg (0.1 mg) oral tablet) Signed by LILI MONDRAGON RN 10/10/2016 09:21:13 Addendum by JOSE VENTURA LPN on October 10, 2016 09:04:32 CDT From: JOSE VENTURA LPN To: LILI MONDRAGON RN; Sent: 10/10/2016 09:04:32 CDT Subject: RE: Pt called, she does need refills of her Synthroid. Thank you. Addendum by ISSAC SANCHEZ CMA on October 10, 2016 08:47:14 CDT From: ISSAC SANCHEZ CMA To: JOSE VENTURA LPN; Sent: 10/10/2016 08:47:14 CDT Subject: FW: can you call. From: REYNA STEVENS CNP, QUALITY ASSOCIATE To: ISSAC SANCHEZ CMA; Sent: 10/09/2016 15:57:38 CDT Ramírez's blood tests came back normal, so no need to change the dose of her medicine. Does she need refills of her Synthroid or does she have enough for right now? Let me know. Thanks! Source: [facility] Wiziva Document Id: [id number] Miscellaneous - Reyna Stevens C.N.P., R.N. - 10/09/2016 11:49 AM CDT Addendum by ISSAC SANCHEZ CMA on October 09, 2016 13:58:39 CDT called and informed pt of message below. From: REYNA STEVENS CNP, BARBARA To: ISSAC SANCHEZ CMA; Sent: 10/09/2016 11:49:25 CDT Please call the patient and let her know that her triglyceride levels, or the measure fat in her blood, are elevated at 204. I would recommend that she work on her diet to improve these numbers. I would recommend we re check them in 1 year. We are still awaiting the results of her thyroid test, however the rest of her labs so far look normal. Let me know if she has any questions or concerns. Thank you Source: [facility] PromimicCHART Document Id: [id number] Miscellaneous - Reyna Stevens C.N.P., R.N. - 10/09/2016 8:50 AM CDT Ambulatory Patient Summary [place] [address] [place] [id number] Visit Information Name: FLAQUITO CADRENAS [facility] Number: [id number] Current Date: 10/09/2016 08:50:12 Physicians Attending Provider: REYNA STEVENS CNP, QUALITY ASSOCIATE Primary Care Provider: PCP, ELSEWHERE FLAQUITO CARDENAS has been given the following list of follow-up instructions, medication list, and patient education materials: Follow-up Instructions Your Medications Here is a list of your medications. It is important to take your medications as directed. Use a pillbox or chart to help remind you to take your medications. Please let your doctor or nurse know if you have problems taking your medications. Medication/Strength How to Take Indications/Special Instructions/Comments/Notes for Patient Medication Changes/Routing levothyroxine (levothyroxine 100 mcg (0.1 mg) oral tablet) 1 Tablet(s), Oral, once a day This is a CHANGE Misc Prescription (Misc Prescription) Oral contraceptive New Stop Taking the Following Medications: DULoxetine (Cymbalta) medroxyPROGESTERone (Depo-Provera Contraceptive 150 mg/ml intramuscular suspension) Medication list as of 10-09-16 08:50 Attention: If you have any medications at home that are not on this list, DO NOT take them until youcontact your provider for clarification. Give a copy of your medication list to your primary care provider. Update your medication list any time medications or doses are changed and carry your medication list at all times in case of emergency. Electronically Signed By: REYNA STEVENS CNP, BARBARA Signed On:09-OCT-2016 08:01:49 Your Allergies & Intolerances Substance Reaction Symptoms Category Comments ciprofloxacin Drug gentamicin anaphylaxis Drug clindamycin anaphylaxis Drug Flonase Nose bleed Drug Your Problem List Problem Status Onset Comments Abdominal pain - Unspecified site Active Elevated Liver Enzymes Active Dysmenorrhea Active 07/01/2010 Other Specified Counseling Active Spasm of Sphincter of Oddi Active 03/04/2011 Body mass index (BMI) 40.0-44.9, adult Active 05/22/16 Rule activated problem due to BMI 40-44 posted on 05/22 at 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 Hypothyroidism Acquired Active Your Upcoming Appointments Date Time Location Provider 10/21/2016 08:45 JESSICA Tran 11/07/2016 08:00 [facility] Out-SOLAR TECHNICIAN Cynthia Crawley CNP 11/19/2016 07:45 Reyna Silva CNP Attention: Contact your local Clinic if further appointment detail needed. Consider Using Patient Online Services Patient Online Services is a secure online and Mobile application that lets you: ?? View lab and test results ?? View portions of your medical record including clinical notes, immunizations and discharge summaries ?? Request an appointment or medication refill ?? Review your appointment schedule ?? Send secure messages to your care team Its easy to create an account if you dont have one. Go to [email or web address] and click on Create Your Account. Then, follow the directions to complete the online form. Youll be asked for your [facility] number which you can find at the top of this document. Your Goals/Additional instructions: Source: [facility] POWERCHART Document Id: [id number] Miscellaneous - Reyna Stevens C.N.P., R.N. - 10/09/2016 8:50 AM CDT Ambulatory Discharge Medication List [address] [id number] Visit Information Name: FLAQUITO CARDENAS [facility] Number: [id number] Current Date: 10/09/2016 08:50:12 Attending Provider: REYNA STEVENS CNP, APRN Primary Care Provider: PCPCURLY SAMANTHA ANN has been given the following list of medications: Your Medications It is important to take your medications as directed. Use a pill box or chart to help remind you to take your medications. Please let your doctor or nurse know if you have problems taking your medications. Medication/Strength How to Take Indications/Special Instructions/Comments/Notes for Patient Medication Changes/Routing levothyroxine (levothyroxine 100 mcg (0.1 mg) oral tablet) 1 Tablet(s), Oral, once a day This is a CHANGE Misc Prescription (Misc Prescription) Oral contraceptive New Stop Taking the Following Medications: DULoxetine (Cymbalta) medroxyPROGESTERone (Depo-Provera Contraceptive 150 mg/ml intramuscular suspension) Medication list as of 10-09-16 08:50 Attention: If you have any medications at home that are not on this list, DO NOT take them until youcontact your provider for clarification. Give a copy of your medication list to your primary care provider. Update your medication list any time medications or doses are changed and carry your medication list at all times in case of emergency. Electronically Signed By: REYNA STEVENS CNP, APRN Signed On:09-OCT-2016 08:01:49 Additional Information: Yes - . Source: [facility] POWERCHART Document Id: [id number] Miscellaneous - Issac Sanchez C.M.A. - 10/09/2016 7:59 AM CDT Adult Beer Coil Cleaner Intake/History Adult Beer Coil Cleaner Intake/History Entered On: 10/09/2016 8:01 CDT Performed On: 10/09/2016 7:59 CDT by ISSAC SANCHEZ [facility] Intake Chief Complaint : Thyroid and medication refill. Temperature Core : 36.8 DegC(Converted to: 98.2 DegF) Peripheral Pulse Rate : 86 /min Respiratory Rate : 18 /min Systolic Blood Pressure : 114 mmHg Diastolic Blood Pressure : 72 mmHg NIBP Mean : 86 mmHg BP Location : Left upper extremity Blood Pressure Cuff Size : Large SpO2 : 96 % Height : 168 cm(Converted to: 5 ft 6 inch(es), 66 inch(es)) Actual Weight : 116 kg(Converted to: 255 lb 12 oz) Weight Source : Standing scale Dosing Weight Clinic : 116 kg Clinic BSA : 2.33 Body Mass Index : 41.1 kg/m2 ISSAC SANCHEZ [facility] - 10/09/2016 7:59 CDT General Info Information Given By : Patient Preferred Communication Mode : Verbal Languages : Yi Is Patient Female and 13-50 no hysterectomy : Yes Status : Patient denies Are you ? : No ISSAC SANCHEZ [facility] - 10/09/2016 7:59 CDT Subjective Pain Symptoms : No ISSAC SANCHEZ [facility] - 10/09/2016 7:59 CDT Dependent Habits Exposure to Tobacco Smoke : Other: NEVER Smoking Status : Never smoker Tobacco 2A : No Tobacco Use/Currently Using : No Tobacco Use/Last 30 Days : No Tobacco Use/Last 12 months : No Alcohol Use : No ISSAC SANCHEZ [facility] - 10/09/2016 7:59 CDT Caffeine Use Grid Caffeine Use : Current Current Type : Soft drinks Coffee Frequency : Daily Daily Amount : 1 1 cup ISSAC SANCHEZ [facility] 10/09/2016 7:59 CDT ISSAC SANCHEZ [facility] 10/09/2016 7:59 CDT Recreational Drug Use Grid Drug Use : None ISSAC SANCHEZ [facility] 10/09/2016 7:59 CDT [facility]: [facility] Document Id: [id number] CDT!49 Miscellaneous - Issac Sanchez, C.M.A. - 10/09/2016 7:58 AM CDT Health Assessment Health Assessment Entered On: 10/09/2016 7:58 CDT Performed On: 10/09/2016 7:58 CDT by ISSAC SANCHEZ [facility] Health Assessment Complete Health Assessment Complete or Modified : Annual Health Assessment Annual Health Assessment Completed : Yes ISSAC SANCHEZ [facility] 10/09/2016 7:58 CDT Nutrition Nutrition Risk Factors by History Adult : None ISSAC SANCHEZ [facility] 10/09/2016 7:58 CDT Functional Current Daily Living Assistance : None ISSAC SANCHEZ [facility] 10/09/2016 7:58 CDT Dependent Habits Exposure to Tobacco Smoke : Other: NEVER Smoking Status : Never smoker Tobacco 2A : No Tobacco Use/Currently Using : No Tobacco Use/Last 30 Days : No Tobacco Use/Last 12 months : No Alcohol Use : No ISSAC SANCHEZ [facility] 10/09/2016 7:58 CDT Caffeine Use Grid Caffeine Use : Current Current Type : Soft drinks Coffee Frequency : Daily Daily Amount : 1 1 cup ISSAC SANCHEZ [facility] 10/09/2016 7:58 CDT ISSAC SANCHEZ [facility] 10/09/2016 7:58 CDT Recreational Drug Use Grid Drug Use : None ISSAC SANCHEZ [facility] 10/09/2016 7:58 CDT Psychosocial Domestic Abuse Concerns : None Behavioral Health Screen/Safety Assmt : No Pentecostal Preference : Unknown ISSAC SANCHEZ [facility] 10/09/2016 7:58 CDT Advance Directive Advanced Directives : No Advance Directive Additional Information : No ISSAC SANCHEZ [facility] - 10/09/2016 7:58 CDT Educ Needs Learning Style Preference Adult Grid Patient : Demonstration, Printed materials, Verbal explanation Family : Demonstration, Printed materials, Verbal explanation ISSAC SANCHEZ [facility] - 10/09/2016 7:58 CDT Source: [facility] Wiziva Document Id: [id number] CDT!41 documented in this encounter Plan of Treatment Upcoming Encounters Date Type Specialty Care Team Description 04/22/2022 Appointment Laboratory Medicine Meryl Julio M.D. [address] [place] [address] [id number] (Wo rk) 04/29/2022 Office Visit Endocrinology Meryl Julio M .D. [address] [place] [address] 5600 (Wo rk) documented as of this encounter Procedures Procedure Name Priority Date/Time Associated Comments Diagnosis LIPID PANEL, S Routine 10/09/2016 8:42 Results fo r this AM CDT procedure are i n the results section. AUTOMATED DIFFERENTIAL, Routine 10/09/2016 8:42 R esults for this B AM CDT procedure are i n the results section. THYROPEROXIDASE (TPO) Routine 10/09/2016 8:42 Res ults for this ABS, S AM CDT procedure are i n the results section. CBC WITH DIFFERENTIAL, B Routine 10/09/2016 8:42 Results for this AM CDT procedure are i n the results section. THYROID-STIMULATING Routine 10/09/2016 8:42 Resul ts for this HORMONE-SENSITIVE AM CDT procedure are in (S-TSH) the results section. GLUCOSE, FASTING, S/P Routine 10/09/2016 8:42 Res ults for this AM CDT procedure are i n the results section. documented in this encounter Results Automated Differential (10/09/2016 8:42 AM CDT) athologist Signature Lymphocytes 2.00 0.90 - 2.90 POWERCHART [id number] Comment: Results for this accession were complete d 10/09/16 0910 by [facility] Testing performed by:Randall Vieira[address] [place] [address] Monocytes 0.3 0.1 - 1.0 KMM3 POWERCHART Comment: Results for this accession were complete d 10/09/16 0910 by [facility] Testing performed by:Randall dennis [id number] [place] [address] HXGranulo Absolut 5.6 1.5 - 8.5 KMM3 POWERCH ART Comment: Results for this accession were complete d 10/09/16 0910 by CH Testing performed by:Randall dennis [address] [place] [address] Specimen Anatomical Collection Method Collection Time Receive d Time (Source) Location / / Volume Laterality Blood 10/09/2016 8:42 AM 7 8:42 CDT AM CDT Reyna Stevens APRN, C.N.P. LAB BLOOD ADD-ON Performing Organization Address City/State/ZIP Code Phon e Number POWERCHART CBC with Differential (10/09/2016 8:42 AM CDT) athologist Signature Leukocytes 7.9 3.5 - 10.5 POWERCHART [id number] Comment: Results for this accession were complete d 10/09/16 0910 by [facility] Testing performed by:Randall dennis [id number] [address] [place] [address] Erythrocytes 4.79 3.90 - 5.03 [id number] POWERCHA RT Comment: Results for this accession were complete d 10/09/16 0910 by CH Testing performed by:Randall dennis [id number] [address] [place] [address] Hemoglobin 14.7 12.0 - 15.5 GDL POWERCHART Comment: Results for this accession were complete d 10/09/16 0910 by CH Testing performed by:Randall dennis [id number] [address] [place] [address] Hematocrit 43.9 34.9 - 44.5 POWERCHART Comment: Results for this accession were complete d 10/09/16 0910 by CH Testing performed by:Randall dennis [id number] [address] [place] [address] Platelet Count 364 150 - 450 [id number] POWERCHAR T Comment: Results for this accession were complete d 10/09/16 0910 by CH Testing performed by:[place] Jared Guerrier [address] [place] [address] Specimen (Source) Anatomical Collection Method Collection Time Re ceived Time Location / / Volume Laterality Blood 10/09/2016 8:42 AM CDT Reyna Stevens APRN, C.N.P. LAB BLOOD ADD-ON Performing Organization Address City/[facility] Phon e Number POWERCHART Glucose, Fasting (10/09/2016 8:42 AM CDT) P athologist Signature Glucose, 98 70 - 99 POWERCHART Fasting, S MGDL Comment: Results for this accession were complete d 10/09/16 0910 by CH Testing performed by:[facility] Fareed [address] [place] [address] Specimen (Source) Anatomical Collection Method Collection Time Re ceived Time Location / / Volume Laterality Blood 10/09/2016 8:42 AM CDT Reyna Stevens APRN, C.N.P. LAB BLOOD NON ADD-ON Performing Organization Address City/[facility] Phon e Number POWERCHART (ABNORMAL) Lipid Panel (10/09/2016 8:42 AM CDT) P athologist Signature Cholesterol, 182 <=199 MGDL POWERCHART Total Comment: Results for this accession were complete d 10/09/16 0910 by CH Testing performed by:[address] [place] [address] HX HDL 41 (L) >=50 MGDL POWERCHART Comment: Results for this accession were complete d 10/09/16 0910 by CH Testing performed by:[address] [place] [address] Triglycerides 204 (H) <=149 MGDL POWERCHART Comment: Results for this accession were complete d 10/09/16 0910 by CH Testing performed by:[address] [place] [address] Calculated LDL 101 <=129 MGDL POWERCHART Comment: Results for this accession were complete d 10/09/16 0910 by CH Testing performed by:[address] [place] [address] Specimen (Source) Anatomical Collection Method Collection Time Re ceived Time Location / / Volume Laterality Blood 10/09/2016 8:42 AM CDT Reyna Stevens APRN, C.N.P. LAB BLOOD ADD-ON Performing Organization Address City/[facility]/ZIP Code Phon e Number POWERCHART (ABNORMAL) Thyroperoxidase (TPO) Antibodies (10/09/2016 8:42 AM CDT) Patholo gist Method Time Signature Thyroperoxidase Ab, 26.7 (H) <9.0 POWERCHART S INTUML Comment: Test Performed by: [address] [address] Specimen (Source) Anatomical Collection Method Collection Time Re ceived Time Location / / Volume Laterality Blood 10/09/2016 8:42 AM CDT Reyna Stevens APRN, C.N.P. LAB BLOOD ADD-ON Performing Organization Address City/[facility] Code Phon e Number POWERCHART Thyroid-Stimulating Hormone-Sensitive (s-TSH) (10/09/2016 8:42 AM CDT) P athologist Signature TSH 2.82 0.27 - 4.20 POWERCHART (Thyrotropin) MIUL Comment: Biotin has been identified by the landen lopes as a potential interfering substance. Higher concentrations of biotin may be found in multivitamins, hair/nail supplements, and workout supplements. If the result does not match clinical observat ions, repeat testing after patient refrains from the use of supplements for at least 12 hours. Specimen (Source) Anatomical Collection Method Collection Time Re ceived Time Location / / Volume Laterality Blood 10/09/2016 8:42 AM CDT Reyna Stevens APRN, C.N.P. LAB BLOOD ADD-ON Performing Organization Address City/State/ZIP Code Phon e Number POWERCHART documented in this encounter Visit Diagnoses Not on filedocumented in this encounter
--- OUTSIDE RECORDS SUMMARY | 2022-03-06 07:12 | XMS_ITS | Encounter Summary ---
:1995 Author Organization [facility] Address [address] [place] [address] Care Team Providers Name Role Phone Suni Stevens APRN, C.N.P. 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 [address] [place] [address] 5600 (Wo rk) 04/29/2022 Office Visit Endocrinology Meryl Julio M .D. [address] [place] [address] 5600 (Wo rk) documented as of this encounter Visit Diagnoses Not on filedocumented in this encounter Care Teams Leadership Program Associate Relationship Specialty Start Date End Date Suni Stevens APRN, C.N.P. PCP - General 03/06/17 02/03/18 documented as of this encounter
--- OUTSIDE RECORDS SUMMARY | 2022-03-06 07:12 | XMS_ITS | Encounter Summary ---
:1995 Author Organization [facility] Address [address] [place] [address] Care Team Providers Name Role Phone Unavailable Primary Care Provider Unavailable Reason for Referral Outpatient (Routine) - Closed Specialty Diagnoses / Procedures Referred By Contact Refer red To Contact Jalil Parikh M.D. Referral ID Status Reason Start Date Expiration Date Visits Requ ested Visits Authorized [id number] Closed 03/05/2017 09/01/2017 1 1 Encounter Details Date Type Department Care Team Description 03/05/2017 Orders Only Department of Jalil Parikh, Hypothyroid ism; Endocrinology in [place] normal Weight Gain; [place] Polycystic Ovary Syndrome [address] [place] [phone] Social History Tobacco Use Types Packs/Day [...] How often do you attend faith or hinduism More than 4 time s [...] at Date Recorded Female 06/21/2021 12:52 PM [employer] documented as of this encounter Plan of Treatment Upcoming Encounters Date Type Specialty Care Team Description 04/22/2022 Appointment Laboratory Medicine Meryl Julio M.D. [address] [place] [address] (Wo rk) 04/29/2022 Office Visit Endocrinology Meryl Julio M .D. [address] [place] [address] 5600 (Hector martin) Scheduled Referrals Name Type Priority Associated Order Schedule Diagnoses Endocrinology office Outpatient Referral Routine Expected: visit (clinic) 08/14/2017 (Approximate), Expires: 2022 documented as of this encounter Results Cortisol, Saliva (08/05/2017 11:00 PM CDT) P athologist Signature Midnight <50 <100 ng/dL 08/12/2017 [facility] Cortisol 7:50 PM CDT [facility] Comment: ----ADDITIONAL INFORMATION---- This test was developed and its performa nce characteristics determined by [facility] in a manner consistent with CLIA requirements. [...] City/State/ZIP Code Phon e Number [facility] [address] [place], [place] [address] [facility] (ABNORMAL) Creatinine, 24 Hour, Urine (08/05/2017 2:00 PM CDT) athologist Signature Creatinine, 24 1936 (H) mg/24 h 08/05/2017 [facility] HR, U 6:27 PM CDT [facility] Comment: ----REFERENCE VALUE---- The expected creatinine excretion per 24 hrs for females: 601-1689 mg/24 hrs or 9-26 mg/kg/24 hrs. Note: To convert to mg/kg of body weight /24 hrs,divide the mg/24 h result by the weight in kg. Collection Duration 24 h 08/05/2017 3:[address] [facility] Urine Volume 2200 mL 08/05/2017 3:[address] [facility] Creatinine Conc 88 mg/dL 08/05/2017 6:27 PM CDT [facility] Specimen Anatomical Collection Method Collection Time Receive d Time (Source) Location / / Volume Laterality Urine 08/05/2017 2:00 PM 8 5:58 CDT PM CDT Jalil Parikh M.D. LAB URINE ORDERABLES Performing Organization Address City/[facility]/ZIP Code Phon e Number [facility] [address] [place] [address] LAB Cortisol, Free, 24 Hour, Urine (08/05/2017 2:00 PM CDT) athologist Signature Cortisol, U 20 3.5 - 45 08/08/2017 [facility] mcg/24 h 12:11 PM CDT [facility] Collection 24 h 08/08/2017 [facility] Duration 12:11 PM CDT [facility] Volume 2200 mL 08/08/2017 [facility] 12:11 PM CDT [facility] Comment: ----ADDITIONAL INFORMATION---- This test was developed and its performa nce characteristics determined by [facility] in a manner consistent with CLIA requirements. This test has not been cleared or approved by the U.S. Bhavin d and Drug Administration. Specimen Anatomical Collection Method Collection Time Receive d Time (Source) Location / / Volume Laterality Urine 08/05/2017 2:00 PM 8 CDT 11:29 AM CDT Jalil Parikh M.D. LAB URINE ORDERABLES Performing Organization Address City/[facility] Phon e Number [address] [place] Cortisol, Saliva (08/04/2017 11:00 PM CDT) P athologist Signature Midnight <50 <100 ng/dL 08/08/2017 [facility] Cortisol 1:13 PM CDT [facility] Comment: ----ADDITIONAL INFORMATION---- This test was developed and its performa nce characteristics determined by [facility] in a manner consistent with CLIA requirements. [...] Organization Address City/State/ZIP Code Phon e Number [facility] [address] [place] [address] [facility] documented in this encounter Visit Diagnoses Diagnosis Hypothyroidism Abnormal Weight Gain Polycystic Ovary Syndrome documented in this encounter
--- OUTSIDE RECORDS SUMMARY | 2022-03-06 07:12 | XMS_ITS | Encounter Summary ---
:1995 Author Organization [facility] Address [address] [place] [address] Care Team Providers Name Role Phone Unavailable Primary Care Provider Unavailable Encounter Details Date Type Department Care Team Description 05/22/2016 Hospital Encounter HX [facility] Edwina Campos D.O. 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 - 05/22/2016 8:28 AM CST [id number] REVISION HISTORY May 26, 2016. 12:20 p.m. - Modification to the encounter. CHIEF COMPLAINT/REASON FOR VISIT Suture removal. 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 The surgeon was Dr. Louis. Procedure: Right knee arthroscopy with excision of plica, open MPFL reconstruction with al lograft. I reviewed the operative note and is due to have sutures removed roughly 2 weeks after surgery. The patient reports her pain is controlled with hydrocodone. She is not having fevers, chills, chest pain, shortness of breath. No drainage from her wound. She is wearing an Lorenzo wrap and a knee brace on the right knee. ALLERGIES Flonase. Cipro. MEDICATIONS Cymbalta 90 mg a day. Depo-Provera injection every 3 months. Levothroid 75 mcg daily. Aspirin 325 mg twice a day postoperatively. Hydrocodone/acetaminophen 7.5/325 one every 4 hours as needed for pain. Reviewing the OP notes reveals that there should be 1 suture to remove in the portal. Otherwise, thesubcuticular stitches in the 2 other sites. The patient reports she continues to have some pain, but no significant swelling. She has in Physical Therapy in [place] and yesterday she could flex the knee to 80 degrees. She denies problems with constipation, is taking a stool softener. She is not having any dysuria or hematuria or frequency. No chest pains, palpitations, or shortness of breath. PHYSICAL EXAMINATION VITAL SIGNS: She is afebrile. Her heart rate was 120 after she ambulated into the clinic on crutches. Her blood pressure is 112/70, her O2 sat is 97% on room air. HEART: Tones are regular. LUNGS: Clear. MUSCULOSKELETAL: The right knee was examined after removal of the Lorenzo wrap and the brace. She has 3 sites that have Steri-Strips. All Steri-Strips were removed. There is a little bit of scabbing over those surgical sites. Areas were cleaned with alcohol swabs, scabs removed. There is 1 suture to the right lateral portal site, which was removed without difficulty. No other sutures were found. There isno sign of wound infection or joint infection. The knee still has a bit of effusion. I did not placeher through range of motion. IMPRESSION/REPORT/PLAN Status post right knee arthroscopy, here for wound check and suture removal. PLAN: Sutures removed. She will continue her current postop care and Physical Therapy. She reports a followup June 23 in [place]. Edwina Hickey D.O./pos cc: Eleuterio Louis M.D. [facility] [place], [place] Electronically Signed By: EDWINA HICKEY DO On: 05/23/2016 10:58 AM Modified by and Electronically Signed by: EDWINA HICKEY DO On: 05/23/2016 10:58 AM Edwina Hickey D.O./hw cc: Eleuterio Louis M.D. [facility] [place], [place] Electronically Signed By: EDWINA HICKEY DO On: 05/23/2016 10:58 AM Modified by and Electronically Signed by: EDWINA HICKEY DO On: 05/23/2016 10:58 AM Co-Signed By: EDWINA HICKEY DO On: 05/27/2016 09:34 AM Source: [facility] MHSDOLBEYNONRADSYS Document Id: [id number] UP MACHINIST documented in this encounter Miscellaneous Notes Miscellaneous - Beba Petersen C.M.A. - 05/22/2016 8:45 AM CST Adult Accounts Payable Lead Intake/History Adult Accounts Payable Lead Intake/History Entered On: 05/22/2016 8:48 SET UP MACHINIST Performed On: 05/22/2016 8:45 SET UP MACHINIST by BEBA PETERSEN [facility] Intake Chief Complaint : suture removal right leg Temperature Core : 35.6 DegC(Converted to: 96.1 DegF) (LOW) Peripheral Pulse Rate : 120 /min (HI) Systolic Blood Pressure : 112 mmHg Diastolic Blood Pressure : 70 mmHg NIBP Mean : 84 mmHg BP Location : Left upper extremity Blood Pressure Cuff Size : Large SpO2 : 97 % Height : 168 cm(Converted to: 5 ft 6 inch(es), 66 inch(es)) Actual Weight : 122.5 kg(Converted to: 270 lb 1 oz) Dosing Weight Clinic : 122.5 kg Clinic BSA : 2.39 Body Mass Index : 43.4 kg/m2 BEBA PETERSEN [facility] - 05/22/2016 8:45 SET UP MACHINIST General Info Languages : Slovenian Is Patient Female and 13-50 no hysterectomy : Yes Status : Patient denies Are you ? : No [facility] PETERSEN [facility] - 05/22/2016 8:45 SET UP MACHINIST Subjective Pain Symptoms : Yes [facility] PETERSEN [facility] - 05/22/2016 8:45 SET UP MACHINIST Pain Scale Pain Scale Verbal 0-10 : Open [facility]BA PETERSEN [facility] - 05/22/2016 8:45 SET UP MACHINIST Pain Pain Assessment Grid Pain 1 Location : Knee Laterality : Right Intensity : 6 BEBA PETERSEN [facility] - 05/22/2016 8:45 SET UP MACHINIST Dependent Habits Exposure to Tobacco Smoke : Other: NEVER Smoking Status : Never smoker Tobacco 2A : No Tobacco Use/Currently Using : No Tobacco Use/Last 30 Days : No Tobacco Use/Last 12 months : No NICOLA BEBA Zane [facility] - 05/22/2016 8:45 SET UP MACHINIST Caffeine Use Grid Caffeine Use : Current Current Type : Soft drinks Coffee Frequency : Daily Daily Amount : 1 1 cup MAURILIOBEBA Wallis Zane [facility] - 05/22/2016 8:45 SET UP MACHINIST BEBA PETERSEN [facility] - 05/22/2016 8:45 SET UP MACHINIST Recreational Drug Use Grid Drug Use : None BEBA PETERSEN [facility] - 05/22/2016 8:45 SET UP MACHINIST Source: [facility] Document Id: [id number] SET UP MACHINIST!52 UP MACHINIST documented in this encounter Plan of Treatment Upcoming Encounters Date Type Specialty Care Team Description 04/22/2022 Appointment Laboratory Medicine Meryl Julio M.D. [address] [place] [address] (Hector martin) 04/29/2022 Office Visit Endocrinology Meryl Julio M .D. [address] [place] [address] (Hector martin) documented as of this encounter Visit Diagnoses Not on filedocumented in this encounter
--- OUTSIDE RECORDS SUMMARY | 2022-03-06 07:12 | XMS_ITS | Encounter Summary ---
:1995 Author Organization [facility] Address [address] [place] [address] Care Team Providers Name Role Phone Unavailable Primary Care Provider Unavailable Encounter Details Date Type Department Care Team Description 02/13/2017 Hospital Encounter HX [facility] Waqas Munoz M.D. Social History Tobacco Use Types Packs/Day Years [...] or relatives? How often do you attend congregational or oriental orthodox More than 4 time s per year 06/21/2021 services? 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 documented as of this encounter Last Filed Vital Signs Vital Sign Reading Time Taken Comments Blood Pressure 132/82 02/13/2017 2:37 PM CDT Pulse 72 02/13/2017 2:37 PM CDT Temperature - - Respiratory Rate 18 02/13/2017 2:37 PM CDT Oxygen Saturation - - Inhaled Oxygen Concentration - - Weight 107 kg (236 lb 1.8 oz) 02/13/2017 2:37 PM CDT Height 168 cm (5' 6.14) 02/13/2017 2:37 PM CDT Body Mass Index 37.95 02/13/2017 2:37 PM CDT documented in this encounter Medications at Time of Discharge Medication Sig Dispensed Refills Start Date End Date levothyroxine Take 1 tablet by 0 12/03/201604/03 (for_SYNTHROID, LEVOTHROID) mouth daily. 112 mcg tablet metFORMIN (for_GLUCOPHAGE) Take 1 tablet by 0 04/03/2017 500 mg tablet mouth 2 (two) times a day. norgestimate-ethinyl Take 1 tablet by 0 7 04/03/2017 estradiol mouth daily. (for_ORTHO-CYCLEN) 0.25- mg-35 mcg per tablet spironolactone Take 1 tablet by 0 02/13/201705/26 (for_ALDACTONE) 50 mg mouth daily. tablet documented as of this encounter Progress Notes Abhilash Duran M.D. - 02/13/2017 5:31 PM CDT Clinic Full Note CHIEF COMPLAINT/REASON FOR VISIT f/u hypothryoidism HISTORY OF PRESENT ILLNESS 21-year-old female patient with history of sleep apnea, obesity and hypothyroidism is presenting for follow up visit. Please refer to initial consult note for details. Based on previous work up at [facility], she was diagnosed with PCOS. She was on Depo-Provera, switched to OCP due to weight gain concerns.she was also having fatigue, hair loss. On thyroid work up, TSH was 36. She was on Levothyroxine 100 mcg with symptoms at previous visit, and the dose was increased to 112 mcg daily. She was concerned about acne and hirsutism, I recommended to continue with OCP for 3 more months and if no improvement Spironolactone can be tried. She also had OGTT showing impaired fasting glucose, started on Metformin ER , taking 1000 mg daily- tolerating at this time. Patient was also concerned about Hardy's syndrome (due to symptoms of muscle pain, some proximal muscle weakness, weight gain) labs ordered but result pending at this time. Today she reports some improvement on her sleep and fatigue but she complains of abdominal cramps, headaches, concentration issues. she started back to school and mentions that some symptoms might be related to stress. The headache is more often past 1 month, on temporal sites, has postnasal drip andmaxillary tenderness and some runny nose. she also reports previous history of migraine and light sensitivity. MEDICATIONS levothyroxine 112 mcg (0.112 mg) oral tablet, 112 mcg, 1 tab(s), PO, Daily, 3 refills metFORMIN 500 mg oral tablet, extended release, 500 mg, 1 tab(s), PO, 2xDay, 1 refills Sprintec 0.25 mg-35 mcg oral tablet, 1 tab(s), PO, Daily, 11 refills ALLERGIES Flonase (Nose bleed) ciprofloxacin clindamycin (anaphylaxis) gentamicin (anaphylaxis) PAST MEDICAL HISTORY Chronic Abdominal pain - Unspecified site Apnea Sleep Obstructive (MAGALIE) Dysmenorrhea Elevated Liver Enzymes Hypothyroidism Acquired Polycystic Ovary Syndrome (PCOS) Thyroiditis Deric's Historical Body mass index (BMI) 40.0-44.9, adult PROCEDURES/SURGICAL HISTORY Right knee (05/07/2016), Pap smear (07/05/2014), Culture, chlamydia, any source.. (06/16/2011), Appendectomy, Cholecystectomy. SOCIAL HISTORY Date Time: 02/13/2017 14:37 Tobacco: Smoking Status: Never smoker Exposure: Care provider denies smoking in home, Other: Never smoked. No alcohol. Alcohol: Use: No Recreational Drugs: Use: None Type: No Results Found FAMILY HISTORY No qualifying data available. Mother: endometriosis Aunt: Hypothyroidism GM: Large ovarian cyst SYSTEMS REVIEW Complete system review done, pertinent positive/negatives as above. VITAL SIGNS HR: 72 RR: 18 BP: 132 / 82 HT: 168 cm WT: 107.1 kg BMI: 37.95 PHYSICAL EXAMINATION General: Obese individual in no acute distress. Eyes: Anicteric Sclera, no proptosis. Thyroid: Mild enlargement, no palpable nodules CVS: Regular rate and rhythm. No murmur. Abdomen: soft, nontender, nondistended. Skin: + acanthosis nigricans, +pink stretch marking around belly, some coarse hair under cosby (plugged). LAB RESULTS [facility] from 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 TSH 1.19 and Free T4 1.7 on recent labs. I recommended to continue with same Levothyroxine dose. 2. 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 She loast 6 kg since last visit. She has monthly but irregular periods. She complains of cramping at times. Also report more frequent headaches but has history of migraine and congestion and sinus tenderness ? sinusitis. I recommended to check with PCP for this as she might need antibiotic treatment or migraine treatment. If persistent headaches, she will update me than as OCP can be making headaches worse as well. Given no significant change on acne and hair, will start on Spironolactone 50 mg daily. 3. Weight gain, ?Cushings She lost ~6kg since last visit but with concerns of weight gain, muscle pain, some proximal muscle weakness, labs ordered for ? Cushings and results pending at this time. I will follow up on those andfurther evaluation will be decided based on results. I discussed above in details with the patient, all questions were addressed, she showed understanding and agreed with plan. I spent 25 min with the patient, >50% on counseling and coordination of care. Electronically Signed By: ABHILASH DURAN MD On: 02/16/2017 08:23 AM Source: [facility] POWERCHART Document Id: [id number] documented in this encounter Miscellaneous Notes Miscellaneous - Abhilash Duran M.D. - 02/13/2017 5:46 PM CDT Ambulatory Discharge Medication List [place] - [address] [place], [place] [id number] Visit Information Name: FLAQUITO TURNER [facility] Number: [id number] Current Date: 02/13/2017 17:46:42 Attending Provider: ABHILASH DURAN MD Primary Care Provider: REYNA HWANG CNP, TRANSPORTATION REFRIGERATION TECHNICIAN FLAQUITO TURNER has been given the following list of medications: Your Medications It is important to take your medications as directed. Use a pill box or chart to help remind you to take your medications. Please let your doctor or nurse know if you have problems taking your medications. Medication/Strength How to Take Indications/Special Instructions/Comments/Notes for Patient Medication Changes/Routing levothyroxine (levothyroxine 112 mcg (0.112 mg) oral tablet) 1 Tablet(s), Oral, once a day metFORMIN (metFORMIN 500 mg oral tablet, extended release) 1 Tablet(s), Oral, two times a day norgestimate-ethinyl estradiol (Sprintec 0.25 mg-35 mcg oral tablet) 1 Tablet(s), Oral, once a day spironolactone (spironolactone 50 mg oral tablet) 1 Tablet(s), Oral, once a day New Routed to [address] [address] Stop Taking the Following Medications: Medication list as of 02-13-17 17:46 Attention: If you have any medications at home that are not on this list, DO NOT take them until youcontact your provider for clarification. Give a copy of your medication list to your primary care provider. Update your medication list any time medications or doses are changed and carry your medication list at all times in case of emergency. Electronically Signed By: ABHILASH DURAN MD Signed On:13-FEB-2017 17:46:40 Additional Information: Source: [facility] POWERCHART Document Id: [id number] Miscellaneous - Abhilash Duran M.D. - 02/13/2017 5:46 PM CDT Ambulatory Patient Summary [address] [place] [phone] Visit Information Name: FLAQUITO TURNER [facility] Number: [id number] Current Date: 02/13/2017 17:46:43 Physicians Attending Provider: ABHILASH DURAN MD Primary Care Provider: REYNA HWANG CNP, TRANSPORTATION REFRIGERATION TECHNICIAN FLAQUITO TURNER has been given the following list of [...] Instructions/Comments/Notes for Patient Medication Changes/Routing levothyroxine (levothyroxine 112 mcg (0.112 mg) oral tablet) 1 Tablet(s), Oral, once a day metFORMIN (metFORMIN 500 mg oral tablet, extended release) 1 Tablet(s), Oral, two times a day norgestimate-ethinyl estradiol (Sprintec 0.25 mg-35 mcg oral tablet) 1 Tablet(s), Oral, once a day spironolactone (spironolactone 50 mg oral tablet) 1 Tablet(s), Oral, once a day New Routed to [address] [address] Stop Taking the Following Medications: Medication list as of 02-13-17 17:46 Attention: If you have any medications at home that are not on this list, DO NOT take them until youcontact your provider for clarification. Give a copy of your medication list to your primary care provider. Update your medication list any time medications or doses are changed and carry your medication list at all times in case of emergency. Electronically Signed By: ABHILASH DURAN MD Signed On:13-FEB-2017 17:46:40 Your Allergies & Intolerances Substance Reaction Symptoms Category Comments ciprofloxacin Drug gentamicin anaphylaxis Drug clindamycin anaphylaxis Drug Flonase Nose bleed Drug Your Problem List Problem Status Onset Comments Abdominal pain - Unspecified site Active Elevated Liver Enzymes Active Dysmenorrhea Active 07/01/2010 Spasm of Sphincter of Oddi Active 03/04/2011 Hypothyroidism Acquired Active Apnea Sleep Obstructive (MAGALIE) Active Polycystic Ovary Syndrome (PCOS) Active Thyroiditis Deric's Active Your Upcoming Appointments Date Time Location Provider 08/14/2017 15:00 [facility] Abhilash Duran MD Attention: Contact your local Clinic if further [...] if you dont have one. Go to [email or web address] and click on Create Your Account. Then, follow the directions to complete the online form. Youll be asked for your [facility] number which you can find at the top of this document. Your Goals/Additional instructions: Source: [facility] POWERCHART Document Id: [id number] Miscellaneous - Abhilash Duran M.D. - 02/13/2017 5:31 PM CDT Update Document Contains Addenda Addendum by JYOTI SOMMER LPN on February 16, 2017 10:40:24 CDT Spoke to [place] informed her of instructions below, made some calls to pharmacy in [facility] and then [facility] pharmacy to get medication refills. [facility] [phone] From: ABHILASH DURAN MD To: JYOTI SOMMER LPN; Sent: 02/13/2017 17:31:11 CDT Subject: Update Please update the patient that I want to keep OCP dose same. On my further review, lower dose (estogen content) can increase hair growth and acne, thus I would like to continue with same. Hopefully she can get some benefit from Spironolactone- will folllow up onthat. Source: [facility] Document Id: [id number] Miscellaneous - Abhilash Duran M.D. - 02/13/2017 3:29 PM CDT follow up Document Contains Addenda Addendum by JYOTI SOMMER LPN on February 13, 2017 15:38:44 CDT noted and on reminder list Addendum by JYOTI SOMMER LPN on February 13, 2017 15:38:29 CDT From: JYOTI SOMMER LPN To: JYOTI SOMMER LPN; Sent: 02/13/2017 15:38:29 CDT Subject: FW: follow up From: ABHILASH DURAN MD To: JYOTI SOMMER LPN; Sent: 02/13/2017 15:29:31 CDT Subject: follow up Please call in 2 monhs to follow up, if excess hair improved on Spironolactone. Thanks! Source: [facility] [employer] Document Id: [id number] Miscellaneous - Jyoti Sommer, L.P.N. - 02/13/2017 2:37 PM CDT Adult Plant Controls Specialist Intake/History Adult Plant Controls Specialist Intake/History Entered On: 02/13/2017 14:47 CDT Performed On: 02/13/2017 14:37 CDT by JYOTI SOMMER LPN Intake Chief Complaint : f/u hypothryoidism Peripheral Pulse Rate : 72 /min Respiratory Rate : 18 /min Heart Rhythm : Irregularly irregular Systolic Blood Pressure : 132 mmHg Diastolic Blood Pressure : 82 mmHg NIBP Mean : 99 mmHg BP Location : Right upper extremity Blood Pressure Cuff Size : Large Height : 168 cm(Converted to: 5 ft 6 inch(es), 66 inch(es)) Actual Weight : 107.1 kg(Converted to: 236 lb 2 oz) Dosing Weight Clinic : 107.1 kg Clinic BSA : 2.24 Body Mass Index : 37.95 kg/m2 JYOTI SOMMER LPN - 02/13/2017 14:37 CDT General Info Information Given By : Patient Languages : Georgian Is Patient Female and 13-50 no hysterectomy : Yes Status : Patient denies Are you ? : No JYOTI SOMMER LPN - 02/13/2017 14:37 CDT Subjective Pain Symptoms : Yes JYOTI SOMMER LPN - 02/13/2017 14:37 CDT Pain Scale Pain Scale Verbal 0-10 : Open JYOTI SOMMER LPN - 02/13/2017 14:37 CDT Pain Pain Assessment Grid Pain 1 Location : Neck Laterality : Bilateral Intensity : 6 JYOTI SOMMER LPN - 02/13/2017 14:37 CDT Dependent Habits Exposure to Tobacco Smoke : Care provider denies smoking in home, Other: Never smoked. No alcohol. Smoking Status : Never smoker Tobacco 2A : No Tobacco Use/Currently Using : No Tobacco Use/Last 30 Days : No Tobacco Use/Last 12 months : No Alcohol Use : No JYOTI SOMMER LPN - 02/13/2017 14:37 CDT Caffeine Use Grid Caffeine Use : Current Current Current Current Type : Soft drinks Coffee Tea Chocolate Frequency : Daily Weekly Weekly Amount : 1 can 4 cups 4 cups 4 servings JYOTI SOMMER LPN - 02/13/2017 14:37 CDT JYOTI SOMMER LPN - 02/13/2017 14:37 CDT JYOTI SOMMER LPN - 02/13/2017 14:37 CDT JYOTI SOMEMR COORDINATOR INTEGRATED MARKETING - 02/13/2017 14:37 CDT Recreational Drug Use Grid Drug Use : None JYOTI SOMMER LPN - 02/13/2017 14:37 CDT Source: [facility] [employer] Document Id: [id number] documented in this encounter Plan of Treatment Upcoming Encounters Date Type Specialty Care Team Description 04/22/2022 Appointment Laboratory Medicine Meyrl Julio M.D. [address] [place] [address] (Hector martin) 04/29/2022 Office Visit Endocrinology Meryl Julio M .D. [address] [place] [address] (Hector martin) documented as of this encounter Visit Diagnoses Not on filedocumented in this encounter
--- OUTSIDE RECORDS SUMMARY | 2022-03-06 07:12 | XMS_ITS | Encounter Summary ---
:1995 Author Organization [facility] Address [address] [place] [address] Care Team Providers Name Role Phone Suni Stevens APRN, C.N.P. Primary Care Provider Unavailabl e Encounter Details Date Type Department Care Team Description 05/17/2017 Abstract Department of Endocrinology in Jyoti Jaramillo L.P.N. 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 [facility] [place], [place] [address] (Wo rk) 04/29/2022 Office Visit Endocrinology Meryl Julio M .D. [address] [place] [address] (Wo rk) documented as of this encounter Visit Diagnoses Not on filedocumented in this encounter Care Teams 911 Dispatcher Relationship Specialty Start Date End Date Suni Stevens APRN, C.N.P. PCP - General 03/06/17 02/03/18 documented as of this encounter
--- OUTSIDE RECORDS SUMMARY | 2022-03-06 07:12 | XMS_ITS | Encounter Summary ---
:1995 Author Organization [facility] Address [address] [place] [address] Care Team Providers Name Role Phone Unavailable Primary Care Provider Unavailable Encounter Details Date Type Department Care Team Description 11/19/2016 Hospital Encounter HX [facility] Hwang, Reyna Huddleston, SHIP CAPTAIN, C.N.P. 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 documented as of this encounter Last Filed Vital Signs Vital Sign Reading Time Taken Comments Blood Pressure 116/78 11/19/2016 8:00 AM CDT Pulse 82 11/19/2016 8:00 AM CDT Temperature - - Respiratory Rate 18 11/19/2016 8:00 AM CDT Oxygen Saturation - - Inhaled Oxygen Concentration - - Weight 115 kg (253 lb 4.9 oz) 11/19/2016 8:00 AM CDT Height 168 cm (5' 6.14) 11/19/2016 8:00 AM CDT Body Mass Index 40.71 11/19/2016 8:00 AM CDT documented in this encounter Medications at Time of Discharge Medication Sig Dispensed Refills Start Date End Date norgestimate-ethinyl Take 1 tablet by 0 7 04/03/2017 estradiol mouth daily. (for_ORTHO-CYCLEN) 0.25- mg-35 mcg per tablet documented as of this encounter Progress Notes Reyna Hwang, KevinN.P., R.N. - 11/19/2016 8:16 AM CDT CHIEF COMPLAINT Follow-up thyroid labs HISTORY OF PRESENT ILLNESS [place] is a 21-year old female presenting to clinic today for follow-up on her recent thyroid labsand thyroid ultrasound. This patient was seen approximately 1 month ago with chief complaint of acquired hypothyroidism which was recently diagnosed. The patient denied any symptoms of hypo or hyper thyroidism at the time of the visit. Her TSH was drawn and was within normal normal limits. The patientdoes have a family history of autoimmune thyroiditis. She had thyroid peroxidase antibodies drawn, which came back elevated at 26.1. The patient also had a thyroid ultrasound given her physical exam finding of thyromegaly. Ultrasound showed that the echogenicity of the thyroid gland was abnormally hete rogeneous throughout, however no concerning thyroid nodule or mass was identified. She presents today asymptomatic and in her usual state of health without any constitutional complaints. PAST MEDICAL HISTORY Spasm of Sphincter of Oddi Dysmenorrhea Abdominal pain - Unspecified site Apnea Sleep Obstructive (MAGALIE) Body mass index (BMI) 40.0-44.9, adult Elevated Liver Enzymes Hypothyroidism Acquired Other Specified Counseling ALLERGIES Flonase (Nose bleed) ciprofloxacin clindamycin (anaphylaxis) gentamicin (anaphylaxis) MEDICATIONS levothyroxine: 100 mcg,1 tab(s),PO,Daily norgestimate-ethinyl estradiol: 1 tab(s),PO,Daily REVIEW OF SYSTEMS Pertinent positives/negatives noted in the HPI. All other systems negative. VITAL SIGNS Temperature Core: 36.4 DegC Low Peripheral Pulse Rate: 82 /min Respiratory Rate: 18 /min SpO2: 96 % BLOOD PRESSURE Systolic Blood Pressure: 116 mmHg Diastolic Blood Pressure: 78 mmHg MEASUREMENTS Height: 168 cm Actual Weight: 114.9 kg Body Mass Index: 40.71 kg/m2 PHYSICAL EXAMINATION GENERAL: well-appearing patient in no acute distress PSYCHIATRIC: patient is alert and oriented, makes eye contact, upright posture, calm and pleasant affect IMPRESSION/PLAN Hypothyroidism, acquired Elevated thyroid peroxidase antibodies Advised the patient on the etiology of elevated TPO antibodies. We did discuss her thyroid ultrasound findings, and I would recommend that she be seen by Endocrinology for further evaluation of the incidental findings on her ultrasound as well as discussion of autoimmune thyroiditis, as this diagnosismay change the management of her hypothyroidism. All questions were answered to the best of this provider's ability. I advised the patient to present to clinic with worsening, persisting or new onset signs or symptoms. The patient has verbalized understanding and agreed to this plan. Electronically Signed By: REYNA HWANG CNP, APRN On: 11/19/2016 09:06 AM Modified by and Electronically Signed by: REYNA HWANG CNP, APRN On: 11/19/2016 09:06 AM Source: [facility] POWERCHART Document Id: [id number] documented in this encounter Nursing Notes Reyna Hwang C.N.P., R.N. - 11/19/2016 8:58 AM CDT Ambulatory Patient Education The following Patient Education Materials have been given to the patient: Patient Education Materials: General Surgery Common Thyroid Problems General Surgery Common Thyroid Problems The thyroid is a gland in the neck. It makes thyroid hormone. A hormone is a chemical messenger for the body. If there is a problem with the thyroid, the level of thyroid hormone may change. This can lead to symptoms. Read on to learn more. Hypothyroidism With this problem, your thyroid gland doesnt make enough hormone. The most common cause of hypothyroidism is Deric thyroiditis. This occurs when the bodys immune system attacks the thyroid gland. Hypothyroidism may also occur if theres not enough iodine in the body. The thyroid needs iodine to make hormone. Problems with the pituitary gland can lead to it. If the thyroid gland is removed during surgery, hypothyroidism will result. Common Symptoms These are some of the most common symptoms: ?? Low energy, fatigue, depression ?? Feeling cold ?? Muscle pain ?? Slowed thinking ?? Constipation ?? Heavier menstrual periods with prolonged bleeding ?? Weight gain ?? Dry and brittle skin, hair, nails Hyperthyroidism With this problem, the thyroid gland produces too much hormone. The most common cause is Graves disease. This is due to the bodys immune system telling the thyroid to make too much hormone. Another cause is a nodule (small bump) in the thyroid gland. This can cause hyperthyroidism if the cells in the nodule produce more hormone than the rest of the gland. Common Symptoms These are some of the most common symptoms: ?? Shaking, nervousness, irritability ?? Feeling hot ?? A rapid, irregular heartbeat ?? Muscle weakness, fatigue ?? More frequent bowel movements ?? [place], epidemiologist menstrual periods ?? Weight loss ?? Hair loss ?? Bulging eyes Nodules Nodules are lumps of tissue in the thyroid gland. Most often, the cause of nodules isnt known. But they may be more common in people whove had medical radiation to the head or neck. Sometimes they can be felt on the outside of the neck. Most of the time, nodules dont affect the production of thyroid hormone. They usually cause no symptoms. Most nodules are benign (noncancerous). But sometimes a nodule may be cancerous. What Is a Goiter? A goiter is the enlargement of the thyroid gland. When the gland enlarges, you maysee or feel a swelling on your neck. A goiter may develop in a person with a normally active thyroid, overactive thyroid (hyperthyroidism), or underactive thyroid (hypothyroidism). ?? 4112-2944 [facility], [address] [place] [address], [place] [address]. All rights reserved. This information is not intended as a substitute for professional medical care. Always follow your healthcare professional's instructions. This document has images extracted. Please consider using [employer] for all your patient education needs. Source: [facility] POWERCHART Document Id: [id number] documented in this encounter Miscellaneous Notes Miscellaneous - Reyna Hwang C.N.P., R.N. - 11/19/2016 8:58 AM CDT Ambulatory Patient Summary [place] [address] [place] [id number] Visit Information Name: FLAQUITO TURNER [facility] Number: [id number] Current Date: 11/19/2016 08:58:21 Physicians Attending Provider: REYNA HWANG CNP, SHIP CAPTAIN Primary Care Provider: PCP, FLAQUITO CROUCH has been given the following list of [...] tablet) 1 Tablet(s), Oral, once a day norgestimate-ethinyl estradiol (Sprintec 0.25 mg-35 mcg oral tablet) 1 Tablet(s), Oral, once a day Stop Taking the Following Medications: Medication list as of 11-19-16 08:58 Attention: If you have any medications at home that are not on this list, DO NOT take them until youcontact your provider for clarification. Give a copy of your medication list to your primary care provider. Update your medication list any time medications or doses are changed and carry your medication list at all times in case of emergency. 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 Hypothyroidism Acquired Active Apnea Sleep Obstructive (MAGLAIE) Active Your Upcoming Appointments Date Time Location Provider 12/03/2016 09:00 [facility] Jalil Duran MD 12/04/2016 10:00 [facility] DIRECTOR PRESALES Júnior CHO, Miriam Nicholson Attention: Contact your local Clinic if further appointment detail needed. Common Thyroid Problems The thyroid is a gland in the neck. It makes thyroid hormone. A hormone is a chemical messenger for the body. If there is a problem with the thyroid, the level of thyroid hormone may change. This can lead to symptoms. Read on to learn more. Hypothyroidism With this problem, your thyroid gland doesnt make enough hormone. The most common cause of hypothyroidism is Deric thyroiditis. This occurs when the bodys immune system attacks the thyroid gland. Hypothyroidism may also occur if theres not enough iodine in the body. The thyroid needs iodine to make hormone. Problems with the pituitary gland can lead to it. If the thyroid gland is removed during surgery, hypothyroidism will result. Common Symptoms These are some of the most common symptoms: ?? Low energy, fatigue, depression ?? Feeling cold ?? Muscle pain ?? Slowed thinking ?? Constipation ?? Heavier menstrual periods with prolonged bleeding ?? Weight gain ?? Dry and brittle skin, hair, nails Hyperthyroidism With this problem, the thyroid gland produces too much hormone. The most common cause is Graves disease. This is due to the bodys immune system telling the thyroid to make too much hormone. Another cause is a nodule (small bump) in the thyroid gland. This can cause hyperthyroidism if the cells in the nodule produce more hormone than the rest of the gland. Common Symptoms These are some of the most common symptoms: ?? Shaking, nervousness, irritability ?? Feeling hot ?? A rapid, irregular heartbeat ?? Muscle weakness, fatigue ?? More frequent bowel movements ?? [place], epidemiologist menstrual periods ?? Weight loss ?? Hair loss ?? Bulging eyes Nodules Nodules are lumps of tissue in the thyroid gland. Most often, the cause of nodules isnt known. But they may be more common in people whove had medical radiation to the head or neck. Sometimes they can be felt on the outside of the neck. Most of the time, nodules dont affect the production of thyroid hormone. They usually cause no symptoms. Most nodules are benign (noncancerous). But sometimes a nodule may be cancerous. What Is a Goiter? A goiter is the enlargement of the thyroid gland. When the gland enlarges, you maysee or feel a swelling on your neck. A goiter may develop in a person with a normally active thyroid, overactive thyroid (hyperthyroidism), or underactive thyroid (hypothyroidism). ?? 8044-0943 [facility], [address] [place] [address]. All rights reserved. This information is not intended as a substitute for professional medical care. Always follow your healthcare professional's instructions. Consider Using Patient Online Services Patient Online [...] if you dont have one. Go to [email or web address] and click on Create Your Account. Then, follow the directions to complete the online form. Youll be asked for your [facility] number which you can find at the top of this document. Your Goals/Additional instructions: This document has images extracted. Please consider using [employer] for all your patient education needs. Source: [facility] POWERCHART Document Id: [id number] Miscellaneous - Reyna Hwang C.N.P., R.N. - 11/19/2016 8:58 AM CDT Ambulatory Discharge Medication List [place] [address] [place] Sneed [id number] Visit Information Name: FLAQUITO TURNER [facility] Number: [id number] Current Date: 11/19/2016 08:58:21 Attending Provider: REYNA HWANG CNP, APRN Primary Care Provider: PCP, CURLY FLAQUITO TURNER has been given the following [...] tablet) 1 Tablet(s), Oral, once a day norgestimate-ethinyl estradiol (Sprintec 0.25 mg-35 mcg oral tablet) 1 Tablet(s), Oral, once a day Stop Taking the Following Medications: Medication list as of 11-19-16 08:58 Attention: If you have any medications at home that are not on this list, DO NOT take them until youcontact your provider for clarification. Give a copy of your medication list to your primary care provider. Update your medication list any time medications or doses are changed and carry your medication list at all times in case of emergency. Electronically Signed By: REYNA HWANG CNP, APRN Signed On:19-NOV-2016 08:58:09 Additional Information: Yes - . Source: [facility] POWERCHART Document Id: [id number] Miscellaneous - Issca Sanchez CSebastianMSebastianA. - 11/19/2016 8:00 AM CDT Adult Passenger Conductor Intake/History Adult Passenger Conductor Intake/History Entered On: 11/19/2016 8:02 CDT Performed On: 11/19/2016 8:00 CDT by ISSAC SANCHEZ SALES ACCOUNT LEADER Intake Chief Complaint : Follow up thyroid Temperature Core : 36.4 DegC(Converted to: 97.5 DegF) (LOW) Peripheral Pulse Rate : 82 /min Respiratory Rate : 18 /min Systolic Blood Pressure : 116 mmHg Diastolic Blood Pressure : 78 mmHg NIBP Mean : 91 mmHg BP Location : Left upper extremity Blood Pressure Cuff Size : Large SpO2 : 96 % Height : 168 cm(Converted to: 5 ft 6 inch(es), 66 inch(es)) Actual Weight : 114.9 kg(Converted to: 253 lb 5 oz) Weight Source : Standing scale Dosing Weight Clinic : 114.9 kg Clinic BSA : 2.32 Body Mass Index : 40.71 kg/m2 ISSAC SANCHEZ [facility] - 11/19/2016 8:00 CDT General Info Languages : Sami Is Patient Female and 13-50 no hysterectomy : Yes Status : Patient denies Are you ? : No ISSAC SANCHEZ [facility] - 11/19/2016 8:00 CDT Subjective Pain Symptoms : No ISSAC SANCHEZ [facility] - 11/19/2016 8:00 CDT Dependent Habits Exposure to Tobacco Smoke : Other: NEVER Smoking Status : Never smoker Tobacco 2A : No Tobacco Use/Currently Using : No Tobacco Use/Last 30 Days : No Tobacco Use/Last 12 months : No Alcohol Use : No ISSAC SANCHEZ [facility] - 11/19/2016 8:00 CDT Caffeine Use Grid Caffeine Use : Current Current Type : Soft drinks Coffee Frequency : Daily Daily Amount : 1 1 cup ISSAC SANCHEZ [facility] - 11/19/2016 8:00 CDT ISSAC SANCHEZ [facility] - 11/19/2016 8:00 CDT Recreational Drug Use Grid Drug Use : None ISSAC SANCHEZ [facility] - 11/19/2016 8:00 CDT Source: [facility] POWERCHART Document Id: [id number]!47 documented in this encounter Plan of Treatment Upcoming Encounters Date Type Specialty Care Team Description 04/22/2022 Appointment Laboratory Medicine Meryl Julio M.D. [address] [place] [address] [id number] (Wo rk) 04/29/2022 Office Visit Endocrinology Meryl Julio M .D. [address] [place] [address] 5600 (Wo rk) documented as of this encounter Visit Diagnoses Not on filedocumented in this encounter
--- OUTSIDE RECORDS SUMMARY | 2022-03-06 07:12 | XMS_ITS | Encounter Summary ---
:1995 Author Organization [facility] Address [address] [place] [address] Care Team Providers Name Role Phone Suni Stevens APRN, C.N.P. Primary Care Provider Unavailabl e Reason for Referral Outpatient (Routine) - Closed Specialty Diagnoses / Procedures Referred By Contact Refer red To Contact Endocrinology Jalil Parikh M.D. [facility] [place] [address] Referral ID Status Reason Start Date Expiration Date Visits Requ ested Visits Authorized [id number] Closed 08/06/2017 02/02/2018 1 1 Reason for Visit Reason Comments Follow-up Hypothyroidism Outpatient (Routine) - Closed Specialty Diagnoses / Procedures Referred By Contact Refer red To Contact Jalil Parikh M.D. Referral ID Status Reason Start Date Expiration Date Visits Requ ested Visits Authorized [id number] Closed 03/05/2017 09/01/2017 1 1 Encounter Details Date Type Department Care Team Description 08/06/2017 Office Visit Department of [place] Hypothyroidism (Primary Dx); Endocrinology in [place] Diarrhea; [place], [place] Dysuria; [address] [place] [address] Body Mass Index 40.0 To 44.9 Adult (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 - 08/06/2017 11:00 AM CDT Increase Metformin dose to 1000 mg BID. Increase Spironolactone dose to 50 mg BID. Continue with Levothyroxine 112 mcg daily. Labs in 2 weeks. Follow up in 3 mo. documented in this encounter Progress Notes Jalil Duran M.D. - 08/06/2017 11:00 AM CDT Patient Name: Felecia Cardenas [facility] [phone] Date of : 1995 CHIEF COMPLAINT PCOS, hypothyroidism HISTORY OF PRESENT ILLNESS Felecia Cardenas is a 21 y.o. female with history of sleep apnea, obesity and hypothyroidism is presenting for follow up visit. Please refer to initial consult note for details. Briefly, after initial diagnosis of PCOS she was on Depo-Provera, switched to OCP due to weight gainconcerns. On further workup for fatigue and hair loss found to have TSH of 36, started on levothyroxine. Given persistent acne and hirsutism, she was started on spironolactone 50 mg at last visit. She reports some improvement of the symptoms but still gets hair and acne. His her monthly periods on OCP butduration is not consistent. She is also on metformin ER 500 mg b.i.d. (has impaired fasting glucose)- tolerating at this time. She is working hard to lose weight, lost about 10 kg since last visit. Patient was also concerned about Whick's syndrome (due to symptoms of muscle pain, some proximal muscle weakness, weight gain) , urine and salivary cortisol levels are pending. She is on levothyroxine 112 mcg daily, compliant with it. She still has some fatigue and complains of headaches. She has migraine headaches, was given Imitrex which helped, also takes propranolol p.r.n.. She reports that the headaches are worse right before her periods. She also complains of dysuria, has history of previous pyelonephritis. Current Outpatient Prescriptions: ??? levothyroxine (for_SYNTHROID, LEVOTHROID) 112 mcg tablet, Take 1 tablet (112 mcg total) by mouthdaily., Disp: 90 tablet, Rfl: 1 ??? metFORMIN (for_GLUCOPHAGE) 500 mg tablet, Take 1 tablet (500 mg total) by mouth 2 (two) times a day., Disp: 180 tablet, Rfl: 1 ??? norgestimate-ethinyl estradiol (for_ORTHO-CYCLEN) 0.25- mg-35 mcg per tablet, Take 1 tablet by mouth daily., Disp: 84 tablet, Rfl: 1 ??? spironolactone (for_ALDACTONE) 50 mg tablet, Take 1 tablet (50 mg total) by mouth daily., Disp: 90 tablet, Rfl: 1 ??? propranolol (for_INDERAL) 40 mg tablet, TAKE 1 TABLET BY MOUTH 1 HOUR PRIOR TO PRESENTATION OR EXAMS NEEDED FOR ANXIETY, Disp: , Rfl: 4 Allergies Allergen Reactions ??? Ciprofloxacin Other (see comments) ??? Clindamycin Anaphylaxis ??? Fluticasone Other (see comments) ??? Gentamicin Anaphylaxis Patient Active Problem List Diagnosis ??? Body Mass Index 40.0 To 44.9 Adult ([facility]) Past Surgical History: Procedure Laterality Date ??? [...] use Yes Comment: occ ??? Drug use: Unknown ??? Sexual activity: Not Asked Other Topics Concern ??? None Social History Narrative ??? None REVIEW OF SYSTEMS On complete review of systems, pertinent positive/negative as mentioned in HPI. PHYSICAL EXAM Vitals: 08/06/17 1033 BP: 122/88 Pulse: 64 Resp: 18 Height: 168 cm Weight: 97.6 kg General: No acute distress. Eyes: Anicteric Sclera, no proptosis. ENT: Mucous membranes moist and pink. Oropharynx clear, no exudates. Thyroid: Normal size and consistency, no palpable nodules. Lungs: Clear to auscultation bilaterally. CVS: Regular rate and rhythm. No murmur. Abdomen: Soft, nontender, nondistended. No hepatosplenomegaly. Extremities: Warm, well perfused. No tremors on outstretched hands. Neuro: Alert and oriented x 3, grossly intact. DTRs +2. Skin: No rashes, acanthosis nigricans. LABORATORY/DIAGNOSTICS Labs from [facility] 02/10/17 DHEA: 374 ug/dL (N [id number]) Glucose: 80 mg/dL Na: 138, K: 3.8, Crea: 0.67, BUN: 11 TSH: 1.19 Free T4: 1.7 24h urine Crea: 1.5 g/24h , volume: 1210 mL Glucose Fasting 103 mg/dL 12/04/2016 07:16 CDT (High) Gluc 2hr Glucola 136 mg/dL 12/04/2016 09:25 CDT ASSESSMENT/PLAN 1. Deric Thyroiditis She is on Levothyroxine 112 mcg daily with some improvement of symptoms but still complains of fatigue. Last blood work from January 2019 showed TSH 1.19 and Free T4 1.7. Will continue with current levothyroxine dose and her repeat labs soon. She also reports diarrhea with Carb rish food, had improvement of symptoms with gluten free diet, Will also obtain celiac screening. ?? 2. PCOS Patient apparently had work up at [facility], currently on OCP, spironolactoneand Metformin. She had 10 kg weight loss since last visit. She reports some benefit with spironolactone for hirsutism and acne but still has symptoms.She has monthly but irregular periods. Will increase Spironolactone to 50 mg BID - will check K level in 2 weeks. She reports more frequent headaches especially around her periods. She describes migraine with aura, thus I will switch her to Micronor. ?? 3. Weight gain, ?Charly She has continues efforts for weight loss and lost 10 kg since last visit. Given muscle pain, some proximal muscle weakness, work up was ordered for ? Charly , results pending at this time. I will follow up on those and further evaluation will be decided based on results. ?? 4. Dysuria She also complains of dysuria and reports previous pyelonephritis episodes. UA ordered, will notify PCP with results. I discussed above in details with the patient, all questions were addressed, she showed understanding and agreed with plan. ?? documented in this encounter Plan of Treatment Upcoming Encounters Date Type Specialty Care Team Description 04/22/2022 Appointment Laboratory Medicine Meryl Julio M.D. [address] [place] [address] 56[address] (Wo rk) 04/29/2022 Office Visit Endocrinology Meryl Julio M .D. [address] [place] [address] 5600 (Wo rk) Scheduled Referrals Name Type Priority Associated Order Schedule Diagnoses Endocrinology office Outpatient Referral Routine Expected: visit (clinic) 11/06/2017 (Approximate), Expires: 08/06/2020 documented as of this encounter Results BMP (Basic Metabolic Panel) (10/08/2017 10:04 AM CDT) P athologist Signature Potassium, S CANCELED 3.6 - 5.2 10/08/2017 [facility] mmol/L 12:38 PM CDT [facility] LAB Comment: REVISED RESULTS ----PREVIOUSLY REPORTED ---- 4.4, Flagged as: Normal (Reported 10/08/2017 11:04) Sodium, S CANCELED 135 - 145 mmol/L 10/08/2017 12:38 PM CDT [facility] LAB Comment: REVISED RESULTS ----PREVIOUSLY REPORTED ---- 141, Flagged as: Normal (Reported 10/08/2017 11:04) Chloride, S CANCELED 98 - 107 mmol/L 10/08/2017 12:38 PM CDT [facility] Comment: REVISED RESULTS ----PREVIOUSLY REPORTED ---- 100, Flagged as: Normal (Reported 10/08/2017 11:04) Bicarbonate, S CANCELED 22 - 29 mmol/L 10/08/2017 12:38 PM [facility] Comment: REVISED RESULTS ----PREVIOUSLY REPORTED ---- 27, Flagged as: Normal (Reported 10/08/2017 11:04) Anion Gap CANCELED 7 - 15 10/08/2017 12:38 PM [facility] Comment: REVISED RESULTS ----PREVIOUSLY REPORTED ---- 14, Flagged as: Normal (Reported 10/08/2017 11:04) BUN (Blood Urea CANCELED 6 - 21 mg/dL 10/08/2017 12:38 PM [facility] Nitrogen), S [facility] Comment: REVISED RESULTS ----PREVIOUSLY REPORTED ---- 12, Flagged as: Normal (Reported 10/08/2017 11:04) Creatinine CANCELED 0.59 - 1.04 mg/dL 10/08/2017 12:38 P [facility] Comment: REVISED RESULTS ----PREVIOUSLY REPORTED ---- 0.73, Flagged as: Normal (Reported 10/08/2017 11:04) eGFR-Non Black/ CANCELED >=60 mL/min/BSA 10/09/19 18 12:38 PM [facility] LAB Comment: REVISED RESULTS ----ADDITIONAL INFORMATION---- Estimated GFR calculated using the 2009 CKD_EPI creatinine equation. ----PREVIOUSLY REPORTED ---- >90, Flagged as: Normal (Reported 10/08/2017 11:04) eGFR-Black/ CANCELED >=60 mL/min/BSA 10/08/2017 12:3 8 [facility] LAB Comment: REVISED RESULTS ----ADDITIONAL INFORMATION---- Estimated GFR calculated using the 2009 CKD_EPI creatinine equation. ----PREVIOUSLY REPORTED ---- >90, Flagged as: Normal (Reported 10/08/2017 11:04) Calcium, Total, S CANCELED 8.6 - 10.0 mg/dL 10/08/2017 12:3 8 PM [facility] Comment: REVISED RESULTS ----PREVIOUSLY REPORTED ---- 10.4, Flagged as: Abnormal_High (Reported 10/08/2017 11:04) Glucose, S CANCELED 70 - 140 mg/dL 10/08/2017 12:38 PM CDT [facility] Comment: REVISED RESULTS ----PREVIOUSLY REPORTED ---- 89, Flagged as: Normal (Reported 10/08/2017 11:04) Specimen Anatomical Collection Method Collection Time Receive d Time (Source) Location / / Volume Laterality Blood (Blood, 10/08/2017 10:04 10/08/2017 Venous) AM CDT 10:08 AM CDT Narrative [facility] - 10/08/2017 12:39 PM CDT Basic Metabolic Panel, S was cancelled on 10/08/2017 at 12:38; Wrong test ordered. Jalil Parikh M.D. LAB BLOOD ADD-ON Performing Organization Address City/State/ZIP Code Phon e Number [facility] [address] [place] [address] LAB tTG (Tissue Transglutaminase) Antibodies, IgA and IgG Profile (10/08/2017 10:04 AM CDT) Patholo gist Method Time Signature Tissue <0.5 <15.0 10/08/2017 [facility] Transglutaminase Ab, U/mL 10:48 PM CDT HEALTH IgA, S SYSTEM- [place] LAB Tissue <0.8 <15.0 10/08/2017 [facility] Transglutaminase Ab, U/mL 10:48 PM CDT HEALTH IgG, S SYSTEM- [place] LAB Specimen Anatomical Collection Method Collection Time Receive d Time (Source) Location / / Volume Laterality Blood (Blood, 10/08/2017 10:04 10/08/2017 7:23 Venous) AM CDT PM CDT Jalil Parikh M.D. LAB BLOOD ADD-ON Performing Organization Address City/[facility]/ZIP Code Phon e Number [facility]- [address] [place] [phone] [place] LAB (ABNORMAL) T4, free (10/08/2017 10:04 AM CDT) P athologist Signature T4 1.9 (H) 0.9 - 1.7 10/08/2017 [facility] (Thyroxine), ng/dL 11:04 AM CDT [facility]- Free, S [place] LAB Comment: Biotin has been identified by [...] M.D. LAB BLOOD ADD-ON Performing Organization Address City/[facility] Phon e Number [address] [address] LAB S-TSH (Thyroid-Stimulating Hormone - Sensitive) (10/08/2017 10:04 AM CDT) P athologist Signature TSH, Sensitive 1.7 0.3 - 4.2 10/08/2017 [facility] mIU/L 11:04 AM CDT [facility] LAB Comment: Biotin has been identified [...] M.D. LAB BLOOD ADD-ON Performing Organization Address City/[facility] Phon e Number [address] [address] LAB (ABNORMAL) Urinalysis with Microscopic if Indicated (08/06/2017 11:37 AM CDT) P athologist Signature Source Midstream 08/06/2017 [facility] 11:58 AM CDT [facility] LAB Clarity Cloudy (A) Clear 08/06/2017 [facility] 11:58 AM [facility] LAB Color Yellow 08/06/2017 [facility] 11:58 AM [facility] LAB Comment: ----REFERENCE VALUE---- Colorless Yellow Michelle Blood Moderate (A) Negative 08/06/2017 11:58 AM [facility] Nitrite Negative Negative 08/06/2017 11:58 AM [facility] LAB Leukocyte Esterase Negative Negative 08/06/2017 11:58 AM [facility] Protein, U Negative mg/dL 08/06/2017 11:58 AM [facility] LAB Comment: ----REFERENCE VALUE---- Negative Trace Glucose Negative Negative mg/dL 08/06/2017 11:58 AM [facility] Ketone Negative Negative mg/dL 08/06/2017 11:58 AM [facility] Bilirubin Negative Negative 08/06/2017 11:58 AM [facility] pH >=9.0 5.0 - 8.0 08/06/2017 11:58 AM [facility] LAB Specific [place] 1.013 1.001 - 1.035 08/06/2017 11:58 AM [facility] Urobilinogen 0.2 0.2 - 1.0 08/06/2017 11:58 AM [facility] Specimen Anatomical Collection Method Collection Time Receive d Time (Source) Location / / Volume Laterality Urine (Urine, 08/06/2017 11:37 08/06/2017 Clean Catch) AM CDT 11:49 AM CDT Jalil Parikh M.D. LAB URINE ORDERABLES Performing Organization Address City/State/ZIP Code Phon e Number [facility] [address] [place] [address] LAB documented in this encounter Visit Diagnoses Diagnosis Hypothyroidism - Primary Diarrhea Dysuria Body Mass Index 40.0 To 44.9 Adult (HCC) Polycystic Ovary Syndrome Hypothyroidism Diarrhea Thyroiditis Deric's documented in this encounter Care Teams Recreation Adviser Relationship Specialty Start Date End Date Suni Stevens APRN, C.N.P. PCP - General 03/06/17 02/03/18 documented as of this encounter
--- OUTSIDE RECORDS SUMMARY | 2022-03-06 07:12 | XMS_ITS | Encounter Summary ---
:1995 Author Organization [facility] Address [address] [place] [address] Care Team Providers Name Role Phone Unavailable Primary Care Provider Unavailable Encounter Details Date Type Department Care Team Description 10/29/2016 Hospital Encounter HX [facility] Miriam Avendano A PRN, C.N.P., M.S.N., R.N. 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 - 10/29/2016 8:57 AM CDT New patient-possible PCOS CHIEF COMPLAINT/REASON FOR VISIT Patient in to discuss PCOS history and control as well as heavy bleeding. HISTORY OF PRESENT ILLNESS Patient is a 21-year-old female here with complaints of abnormal menstrual bleeding. She had menarche at age 13. At age 16 she developed dysmenorrhea. She has had a laparoscopy demonstrating endometriosis. She was then started on Depo- Provera. She continued this for 3-4 years. After stopping Depo-Provera she was having irregular cycles. She also gained 100 lb over the last year 2. The patient is beendiagnosed with hypothyroidism. Her physician in [place] where she attends college started her on oral contraception July 29 of this year he recommended that she continue to use this for 3 months andthen follow up after that time. He mike DHEA-S, prolactin and total testosterone to check for polycys tic ovarian syndrome. Testosterone was high. Patient states that she is having lots of ovarian pain.Says she was bleeding daily on the control pill that she was started on. She does report last menstrual period approximately 2 months ago was very heavy and she ended up bleeding for about 30 days. She was advised by her OBGYN to take to her controls daily and this eventually stop the bleeding. She has not had any bleeding since then. Her last Pap smear was in 2014 which was within normallimits. MEDICATIONS [facility] [place] Prescription: Oral contraceptive levothyroxine: 100 mcg,1 tab(s),PO,Daily ALLERGIES Flonase (Nose bleed) ciprofloxacin clindamycin (anaphylaxis) gentamicin (anaphylaxis) SYSTEMS REVIEW Ten point review of systems is negative except for discussed in HPI. PAST MEDICAL/SURGICAL HISTORY MEDICAL: Spasm of Sphincter of Oddi Dysmenorrhea Abdominal pain - Unspecified site Apnea Sleep Obstructive (MAGALIE) Body mass index (BMI) 40.0-44.9, adult Elevated Liver Enzymes Hypothyroidism Acquired Other Specified Counseling SURGICAL: Right knee: 05/07/16 Pap smear: 07/05/14 Culture, chlamydia, any source..: 06/16/11 Cholecystectomy Appendectomy SOCIAL HISTORY Date Time: 10/29/2016 08:33 Tobacco: Smoking Status: Never smoker Exposure: Other: NEVER Current Use: No Use Last 12 Months: No Advised To Quit: No Results Found Recreational Drugs: Use: None Type: No Results Found Frequency: No Results Found Alcohol: Use: No Results Found FAMILY HISTORY No qualifying data available MEASUREMENTS Height: 168 cm Actual Weight: 116.3 kg Body Mass Index: 41.21 kg/m2 als PHYSICAL EXAMINATION GENERAL: Patient is in no distress. Capable of full communication without difficulty. Patient is polite and cooperative. Appropriately dressed and normal hygiene. IMPRESSION/PLAN 1. Dysmenorrhea 2. Amenorrhea 3. Endometriosis Plan: Labs have been performed by her physician in [place]. No ultrasound has been obtained yet. I have ordered an ultrasound. Patient will follow up in 1 week. We discussed polycystic ovarian syndrome and the signs and symptoms of this diagnosis. We discussed possible management of PCOS to include oral contraception, Nexplanon, Depo-Provera. We discussed her diagnosis of endometriosis and how that could be contributing to her pain. Patient is in agreement with plan of care. All questions answered to the best my ability. Electronically Signed By: MIRIAM CALLEJAS APRN, CNP On: 10/29/2016 09:04 AM Source: [facility] POWERCHART Document Id: [id number] documented in this encounter Nursing Notes Miriam Callejas APRN, M.S.Chelsey., C.N.P. - 10/29/2016 8:56 AM CDT Ambulatory Patient Education The following Patient Education Materials have been given to the patient: Patient Education Materials: Ambulatory DYSMENORRHEA Ambulatory Painful Menstrual Periods The uterus is a muscle and contracts normally during the menstrual cycle. The contraction pushes outthe build-up of tissue that occurs each month inside the uterus. If the contraction is very strong, it can cause pain because the muscle is not getting enough oxygen for the amount of work it is doing.Pain with menstruation is called dysmenorrhea. The pain may feel like a dull ache or throbbing in the lower abdomen. It may spread to your lower back or inner thighs. In severe cases there may also be nausea, vomiting, loose stools, sweating or dizziness. There are two types of dysmenorrhea: Primary Dysmenorrhea (common menstrual cramps) usually appears within one or two years after you start your periods. It usually gets better or goes away as you get older or when you have a baby. The menstrual cramps usually start just before, or on the day of your period, and last 1-3 days. Treatment is with comfort measures and anti-inflammatory drugs as described below (see Home Care). If your painis not controlled with these measures, your doctor may prescribe control pills. This will reduce the pain of each period. Secondary Dysmenorrhea starts later in life. The pain begins earlier in the menstrual cycle and lasts longer than common menstrual cramps. It is caused by a specific problem with the pelvic organs, such as: ?? PID (pelvic inflammatory disease) -- an infection in the fallopian tubes ?? Fibroids - benign tumors within the wall of the uterus (not cancer) ?? Endometriosis - the tissue that lines the uterus spreads outside the uterus and grows there. Thistissue swells and bleeds each month, just like the tissue in your uterus, and causes pain. ?? IUD use -- especially in the first few months after placement Once the cause of secondary dysmenorrhea is found, it can be treated. Home Care: Most women with common menstrual cramping (primary dysmenorrhea) can remain active throughout their period. Many women find that regular exercise each werek reduces menstrual pain. If cramping is severe, rest in bed with a heating pad on the lower abdomen or lower back. A hot bathor massage to the lower back and abdomen may also give relief. Smoking can make symptoms worse. If you smoke, ask your doctor for help with a stop-smoking plan. Avoid caffeine and alcohol around the time of your period since these can make symptoms worse. Anti-inflammatory medicine such as aspirin, ibuprofen (Advil, Motrin) or naproxen (Aleve, Naprosyn) can be very helpful, especially if taken at the very first signs of bleeding or cramping . Acetaminophen (Tylenol) is not as effective for this problem. [NOTE: If you have chronic liver or kidney disease or ever had a stomach ulcer or GI bleeding, talk with your doctor before using these medicines.] If your pain is not controlled by the above measures, a prescription pain medicine may be required for a short time. Discuss this with your doctor. Follow Up with your doctor as advised. If you have just started menstruating in the past 1-2 years, and your pain is mild to moderate, your symptoms are most likely not a cause for concern. However, if menstrualcramps are severe enough to interfere with your daily activities, last longer than a few days, or ifyou are older and just started having menstrual pain, it is important to see your doctor for furtherevaluation. Get Prompt Medical Attention if any of the following occur: ?? Fever over 100.4??F (38.0??C) with pelvic pain ?? Uncontrolled menstrual pain or pain that lasts longer than usual or occurs between periods ?? Unusual vaginal discharge between periods ?? Heavy vaginal bleeding (soaking more than one pad an hour for three hours) ?? Passage of pink or francisco tissue from the vagina If you use tampons, watch for the following signs of Toxic Shock Syndrome and return at once: ?? Fever over 102.0??F (38.9??C), with or without pelvic pain ?? Vomiting, diarrhea ?? Dizziness, weakness or fainting ?? Rash that looks like a bad sunburn ?? [id number] [employer], [address] [place] [address]. All rights reserved. This information is not intended as a substitute for professional medical care. Always follow your healthcare professional's instructions. This document has images extracted. Please consider using [employer] for all your patient education needs. Source: [facility] POWERCHART Document Id: [id number] documented in this encounter Miscellaneous Notes Miscellaneous - Miriam Callejas APRN M.S.Cecilia, Juan Manuel.N.P. - 10/29/2016 8:57 AM CDT Ambulatory Patient Summary [address] [place] [phone] Visit Information Name: FLAQUITO TURNER [facility] Number: [id number] Current Date: 10/29/2016 08:57:00 Physicians Attending Provider: MIRIAM CALLEJAS APRN, CNP Primary Care Provider: PCP, FLAQUITO CROUCH has [...] tablet) 1 Tablet(s), Oral, once a day Misc Prescription (Misc Prescription) Oral contraceptive Stop Taking the Following Medications: Medication list as of 10-29-16 08:57 Attention: If you have any medications at home that are not on this list, DO NOT take them until youcontact your provider for clarification. Give a copy of your medication list to your primary care provider. Update your medication list any time medications or doses are changed and carry your medication list at all times in case of emergency. 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 Hypothyroidism Acquired Active Apnea Sleep Obstructive (MAGALIE) Active Your Upcoming Appointments Date Time Location Provider 11/19/2016 07:45 LENNOX Stevens CNP, Suni Huddleston Attention: Contact your local Clinic if further appointment detail needed. Painful Menstrual Periods The uterus is a muscle and contracts normally during the menstrual cycle. The contraction pushes outthe build-up of tissue that occurs each month inside the uterus. If the contraction is very strong, it can cause pain because the muscle is not getting enough oxygen for the amount of work it is doing.Pain with menstruation is called dysmenorrhea. The pain may feel like a dull ache or throbbing in the lower abdomen. It may spread to your lower back or inner thighs. In severe cases there may also be nausea, vomiting, loose stools, sweating or dizziness. There are two types of dysmenorrhea: Primary Dysmenorrhea (common menstrual cramps) usually appears within one or two years after you start your periods. It usually gets better or goes away as you get older or when you have a baby. The menstrual cramps usually start just before, or on the day of your period, and last 1-3 days. Treatment is with comfort measures and anti-inflammatory drugs as described below (see Home Care). If your painis not controlled with these measures, your doctor may prescribe control pills. This will reduce the pain of each period. Secondary Dysmenorrhea starts later in life. The pain begins earlier in the menstrual cycle and lasts longer than common menstrual cramps. It is caused by a specific problem with the pelvic organs, such as: ?? PID (pelvic inflammatory disease) -- an infection in the fallopian tubes ?? Fibroids -- benign tumors within the wall of the uterus (not cancer) ?? Endometriosis -- the tissue that lines the uterus spreads outside the uterus and grows there. This tissue swells and bleeds each month, just like the tissue in your uterus, and causes pain. ?? IUD use -- especially in the first few months after placement Once the cause of secondary dysmenorrhea is found, it can be treated. Home Care: Most women with common menstrual cramping (primary dysmenorrhea) can remain active throughout their period. Many women find that regular exercise each werek reduces menstrual pain. If cramping is severe, rest in bed with a heating pad on the lower abdomen or lower back. A hot bathor massage to the lower back and abdomen may also give relief. Smoking can make symptoms worse. If you smoke, ask your doctor for help with a stop-smoking plan. Avoid caffeine and alcohol around the time of your period since these can make symptoms worse. Anti-inflammatory medicine such as aspirin, ibuprofen (Advil, Motrin) or naproxen (Aleve, Naprosyn) can be very helpful, especially if taken at the very first signs of bleeding or cramping . Acetaminophen (Tylenol) is not as effective for this problem. [NOTE: If you have chronic liver or kidney disease or ever had a stomach ulcer or GI bleeding, talk with your doctor before using these medicines.] If your pain is not controlled by the above measures, a prescription pain medicine may be required for a short time. Discuss this with your doctor. Follow Up with your doctor as advised. If you have just started menstruating in the past 1-2 years, and your pain is mild to moderate, your symptoms are most likely not a cause for concern. However, if menstrualcramps are severe enough to interfere with your daily activities, last longer than a few days, or ifyou are older and just started having menstrual pain, it is important to see your doctor for furtherevaluation. Get Prompt Medical Attention if any of the following occur: ?? Fever over 100.4?F (38.0?C) with pelvic pain ?? Uncontrolled menstrual pain or pain that lasts longer than usual or occurs between periods ?? Unusual vaginal discharge between periods ?? Heavy vaginal bleeding (soaking more than one pad an hour for three hours) ?? Passage of pink or francisco tissue from the vagina If you use tampons, watch for the following signs of Toxic Shock Syndrome and return at once: ?? Fever over 102.0?F (38.9?C), with or without pelvic pain ?? Vomiting, diarrhea ?? Dizziness, weakness or fainting ?? Rash that looks like a bad sunburn ?? [id number] [facility], [address] [place] [address]. All rights reserved. This information is not [...] if you dont have one. Go to [email or web address] and click on Create Your Account. Then, follow the directions to complete the online form. Youll be asked for your [facility] number which you can find at the top of this document. Your Goals/Additional instructions: This document has images extracted. Please consider using [employer] for all your patient education needs. Source: [facility] POWERCHART Document Id: [id number] Miscellaneous - Miriam Callejas APRN, M.S.N., C.N.P. - 10/29/2016 8:57 AM CDT Ambulatory Discharge Medication List [place] [id number] [facility] [address] [place], [place] [id number] Visit Information Name: FLAQUITO TURNER [facility] Number: [id number] Current Date: 10/29/2016 08:57:00 Attending Provider: MIRIAM CALLEJAS APRN, CNP Primary Care Provider: PCP, FLAQUITO CROUCH has [...] tablet) 1 Tablet(s), Oral, once a day Misc Prescription (Misc Prescription) Oral contraceptive Stop Taking the Following Medications: Medication list as of 10-29-16 08:57 Attention: If you have any medications at home that are not on this list, DO NOT take them until youcontact your provider for clarification. Give a copy of your medication list to your primary care provider. Update your medication list any time medications or doses are changed and carry your medication list at all times in case of emergency. Electronically Signed By: MIRIAM CALLEJAS APRN, CNP Signed On:29-OCT-2016 08:56:50 Additional Information: Source: [facility] POWERCHART Document Id: [id number] Miscellaneous - Jermaine Kraus, LSebastianP.N. 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 LMP Date : IRREGULAR Height : 168 cm(Converted to: 5 ft 6 inch(es), 66 inch(es)) Actual Weight : 116.3 kg(Converted to: 256 lb 6 oz) Dosing Weight Clinic : 116.3 kg Clinic BSA : 2.33 Body Mass Index : 41.21 kg/m2 JERMAINE KRAUS LPN - 10/29/2016 8:33 CDT General Info Information Given By : Patient Languages : Upper Sorbian Is Patient Female and 13-50 no hysterectomy : Yes Status : Patient denies Are you ? : No JERMAINE KRAUS LPN - 10/29/2016 8:33 CDT Subjective Pain Symptoms : No JERMAINE KRAUS [facility] - 10/29/2016 8:33 CDT Dependent Habits Exposure to Tobacco Smoke : Other: NEVER Smoking Status : Never smoker Tobacco 2A : No Tobacco Use/Currently Using : No Tobacco Use/Last 30 Days : No Tobacco Use/Last 12 months : No JERMAINE KRAUS [facility] - 10/29/2016 8:33 CDT Caffeine Use Grid Caffeine Use : Current Current Type : Soft drinks Coffee Frequency : Daily Daily Amount : 1 1 cup JERMAINE KRAUS Celina [facility] - 10/29/2016 8:33 CDT KRAUS JERMAINE Patrick [facility] - 10/29/2016 8:33 CDT Recreational Drug Use Grid Drug Use : None KRAUS, JERMAINE A [facility] - 10/29/2016 8:33 CDT Source: [employer] Document Id: [id number] documented in this encounter Plan of Treatment Upcoming Encounters Date Type Specialty Care Team Description 04/22/2022 Appointment Laboratory Medicine Meryl Julio M.D. [address] [place] [address] ([place] martin) 04/29/2022 Office Visit Endocrinology Meryl Julio M .D. [address] [place] [address] ([place] martin) documented as of this encounter Visit Diagnoses Not on filedocumented in this encounter
--- OUTSIDE RECORDS SUMMARY | 2022-03-06 07:12 | XMS_ITS | Encounter Summary ---
:1995 Author Organization [facility] Address [address] [place] [address] Care Team Providers Name Role Phone Suni Stevens APRN, C.N.P. Primary Care Provider Unavailabl e Reason for Visit Reason Comments Communication labs prior to endo appt Encounter Details Date Type Department Care Team Description 07/30/2017 Clinical Department of Jyoti Orozco Communication (labs Communication Endocrinology in [facility] 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 RVISOR FLOOR ASSEMBLY documented in this encounter Plan of Treatment Upcoming Encounters Date Type Specialty Care Team Description 04/22/2022 Appointment Laboratory Medicine Meryl Julio M.D. [facility] [place], [place] [address] (Hector martin) 04/29/2022 Office Visit Endocrinology Meryl Julio M .D. [address] [place], [place] [address] (Hector martin) documented as of this encounter Visit Diagnoses Not on filedocumented in this encounter Care Teams Business Solutions Architect Relationship Specialty Start Date End Date Suni Stevens APRN, C.N.P. PCP - General 03/06/17 02/03/18 documented as of this encounter
--- OUTSIDE RECORDS SUMMARY | 2022-03-06 07:12 | XMS_ITS | Encounter Summary ---
:[address] [facility] Address [address] [place] [address] Care Team Providers Name Role Phone Suni Stevens APRN, C.N.P. Primary Care Provider Unavailabl e Reason for Visit Reason Comments Communication Encounter Details Date Type Department Care Team Description 07/14/2017 Clinical Communication Department of Hanna Parikh Endocrinology in [place] [address] [phone] Social History Tobacco Use Types Packs/Day Years [...] or relatives? How often do you attend presybeterian or latter-day More than 4 time s per year 06/21/2021 services? 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 She will be home for spring and currently goes to school 8 hours away - she is just trying to avoid driving 8 hours for an appointment. Also she wanted to know if she should be charting her readings for this upcoming appointment? Please call her back, she did she if she doesn't answer, it is okay to leave a detailed message. Thank you. PLEASE DO NOT REPLY. EMAILS ARE NOT MONITORED. THANK YOU. E PROCESSOR documented in this encounter Plan of Treatment Upcoming Encounters Date Type Specialty Care Team Description 04/22/2022 Appointment Laboratory Medicine Meryl Julio M.D. [address] [place], [place] [address] (Hector martin) 04/29/2022 Office Visit Endocrinology Meryl Julio M .D. [address] [place], [place] [address] (Hector martin) documented as of this encounter Visit Diagnoses Not on filedocumented in this encounter Care Teams Extermination Supervisor Relationship Specialty Start Date End Date Suni Stevens APRN, C.N.P. PCP - General 03/06/17 02/03/18 documented as of this encounter
--- OUTSIDE RECORDS SUMMARY | 2022-03-06 07:12 | XMS_ITS | Encounter Summary ---
:1995 Author Organization [facility] Address [address] [place] [address] Care Team Providers Name Role Phone Unavailable Primary Care Provider Unavailable Encounter Details Date Type Department Care Team Description 12/03/2016 Hospital Encounter HX [facility] Waqas Munoz M.D. 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 documented as of this encounter Last Filed Vital Signs Vital Sign Reading Time Taken Comments Blood Pressure 122/62 12/03/2016 9:13 AM CDT Pulse 90 12/03/2016 9:13 AM CDT Temperature - - Respiratory Rate - - Oxygen Saturation - - Inhaled Oxygen Concentration - - Weight 114 kg (250 lb 14.1 oz) 12/03/2016 9:13 AM CDT Height 168 cm (5' 6.14) 12/03/2016 9:13 AM CDT Body Mass Index 40.32 12/03/2016 9:13 AM CDT documented in this encounter Medications at Time of Discharge Medication Sig Dispensed Refills Start Date End Date levothyroxine Take 1 tablet by 0 12/03/201604/03 (for_SYNTHROID, mouth daily. LEVOTHROID) 112 mcg tablet norgestimate-ethinyl Take 1 tablet by 0 7 04/03/2017 estradiol mouth daily. (for_ORTHO-CYCLEN) 0.25- mg-35 mcg per tablet documented as of this encounter Consult Notes Abhilash Claros M.D. - 12/03/2016 11:18 AM CDT Consult Note CHIEF COMPLAINT/REASON FOR VISIT Establish Care. Hypothyroid REFERRAL SOURCE Reyna Stevens requested evaluation for hypothyroidism. HISTORY OF PRESENT ILLNESS 21-year-old female patient with history of sleep apnea, obesity and hypothyroidism is presenting toinitial visit with me the discuss hypothyroidism and several other concerns. She reported that during early years of college she was thinner and was doing really well. Then in past several years she started to have significant weight gain, partly attributed to Depo-Provera, then she was switched to OCP and weight gain has still continued. She reports 70 lb of weight gain in about 4-5 months last year from December. She used to feel tired, having hair loss. Thyroid levels were checked and TSH was noted to be 36. Then she was started on levothyroxine, dose was increasedby time and she is currently on 100 mcg daily. She reports that she still feels tired most of the times. She complains of muscle pain, hair loss , shoulder pain. She reports being compliant with thyroid medication, takes it as first thing in the morning and does not eat at least for 1 hour after thyroid medication. Her aunt also has hypothyroidism and her mother has endometriosis. Her grandmother wasfound to have large ovarian cyst. She also reports being diagnosed with PCOS and sleep apnea. She was started on different form of OCP after Depo-Provera which caused persistent bleeding, PCOS workup was done and she was found to haveelevated testosterone levels. Her then she was started on Sprintec. She mentioned that her periods are more regular but she is having bleeding for 2 weeks once she gets her periods. She complains of increased facial hair, acne. She did not have significant change in hair and acne after starting on OCP. He denies galactorrhea. She is also concerned about possible Srinivasan's syndrome given her sudden increase in her weight. Apparently she had high blood pressure before which then normalized (per patient). She complains of muscle pain, shoulder pain hip and knee pains. She also reports some proximal muscle weakness. She has stretch markings around her belly which she reports some improvement after 20 lb of weight loss since May with active diet and exercise. 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 MEDICATIONS levothyroxine 100 mcg (0.1 mg) oral tablet, 100 mcg, 1 tab(s), PO, Daily, 3 refills Sprintec 0.25 mg-35 mcg oral tablet, 1 tab(s), PO, Daily, 11 refills ALLERGIES Flonase (Nose bleed) ciprofloxacin clindamycin (anaphylaxis) gentamicin (anaphylaxis) PAST MEDICAL HISTORY Chronic Abdominal pain - Unspecified site Apnea Sleep Obstructive (MAGALIE) Body mass index (BMI) 40.0-44.9, adult Dysmenorrhea Elevated Liver Enzymes Hypothyroidism Acquired Historical No historical problems PROCEDURES/SURGICAL HISTORY Right knee (05/07/2016), Pap smear (07/05/2014), Culture, chlamydia, any source.. (06/16/2011), Appendectomy, Cholecystectomy. SOCIAL HISTORY Date Time: 12/03/2016 09:13 Tobacco: Smoking Status: Never smoker Exposure: Care provider denies smoking in home, Other: Never smoked. No alcohol. Alcohol: Use: No Recreational Drugs: Use: None Type: No Results Found FAMILY HISTORY No qualifying data available. Mother: endometriosis Aunt: Hypothyroidism GM: Large ovarian cyst SYSTEMS REVIEW Complete system review done, pertinent positive/negatives as above. VITAL SIGNS HR: 90 BP: 122 / 62 HT: 168 cm WT: 113.8 kg BMI: 40.32 PHYSICAL EXAMINATION General: Obese individual in no acute distress. Eyes: Anicteric Sclera, no proptosis, normal peripheral vision on confrontation. Thyroid: Mild enlargement, no palpable nodules CVS: Regular rate and rhythm. No murmur. Abdomen: soft, nontender, nondistended. Extremities: Warm, well perfused. Neuro: Alert and oriented x 3, muscle strength 5/5. Skin: + acanthosis nigricans, +punk stretch marking around belly, some coarse hair under cosby (plugged). LAB RESULTS Glucose Fasting 98 mg/dL 10/09/2016 08:42 CDT Cholesterol 182 mg/dL 10/09/2016 08:42 CDT Trig 204 mg/dL 10/09/2016 08:42 CDT (High) HDL 41 mg/dL 10/09/2016 08:42 CDT (Low) LDL Calculated 101 mg/dL 10/09/2016 08:42 CDT TSH 2.82 mIU/L 10/09/2016 08:42 CDT Hgb 14.7 g/dL 10/09/2016 08:42 CDT Thyroperox Ab-Ureña 26.7 IntU/ml 10/09/2016 08:42 CDT (High) DIAGNOSTIC RESULTS Thyroid US FINDINGS: The right lobe of the thyroid measures 5.6 x 1.6 x 1.8 cm giving a volume of 7.8 cc, within upper normal limits. The left lobe of the thyroid measures 4.6 x 1.7 x 1.2 cm giving a volume of 4.5 cc, within normal limits. The isthmus measures up to 4.5 mm, either upper normal limits or slightly thickened. The echogenicity of the thyroid gland is abnormally heterogeneous (inhomogeneous) throughout, but no concerning thyroid nodule or mass is identified. No abnormally hyperemic thyroid gland Doppler blood flow is observed. No significant surrounding abnormalities are incidentally noted, but there are multiple bilateral neck lymph nodes with non-enlarged subcentimeter short axes and non-pathologic fatty juan. There is also a tiny 5 x 4 x 4 mm nonspecific area adjacent to the lower pole of the right thyroid gland which is either a normal lymph node or the inferior right parathyroid gland. IMPRESSION: Essentially unremarkable thyroid ultrasound, without glandular enlargement or a concerning thyroid nodule. See above RE: incidental findings. [1] Pelvic US IMPRESSION: Sonographically normal pelvic ultrasound, ovaries within normal limits without evidence for PCOS. 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 I will increase Levothyroxine dose to 112 mcg daily and repeat testing before next visit (about 10 weeks). I discussed the pathophysiology of Deric thyroiditis with the patient along with increased risk of other autoi mmune conditions, small risk of thyroid lymphoma, familial predisposition. I also advised her to notify me in case of or if she plans down the line as Levothyroxine dose might need adjustment at that time. 2. 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 Currentlyon Sprintec and did not have much benefit yet for acne and hirsutism. I recommended to continue withit for about 2-3 months and if no improvement Spironolactone can be considered. I discussed pathophysiology of PCOS, diagnosis and treatment options. I discussed the importance of weight loss at length. She has hypertriglyceridemia and low HDL. Fasting BG was normal. I will obtain 2h OGTT and considerMetformin to improve metabolic component of PCOS. 3. Weight gain, ?Cushings She was concerned about rapid weight gain also some symptoms including muscle pain, easy brusing. Iwill check 24h urine cortisol and late night salivary cortisol levels. I discussed above in details with the patient, all questions were addressed, she showed understanding and agreed with plan. I spent 45 min with the patient, >50% on counseling and coordination of care. FOOTNOTES [1]US Thyroid; [facility] 10/21/2016 09:11 CDT [2]US Pelvic And Endovaginal; [facility]O [facility] 11/11/2016 08:22 CDT Electronically Signed By: ABHILASH CLAROS MD On: 12/03/2016 12:37 PM Source: [facility] [employer] Document Id: [id number] documented in this encounter Nursing Notes Vianey Rodríguez R.N. - 12/03/2016 11:59 AM CDT 24 hour urine collection and records Pt called to verify if she could complete her 24 hour urine collection if she were to be menstruating. Per provider it should not cause problems but she could wait. Communicated this with patient and she will wait. Dr. Claros is fine with her waiting 2 weeks if need be. Ramírez will contact facilities in [place] where she had some workup done before and ask that these records be faxed to our facility. Electronically Signed By: VIANEY RODRÍGUEZ RN On: 12/03/2016 12:03 PM Source: [facility] [employer] Document Id: [id number] documented in this encounter Miscellaneous Notes Miscellaneous - Abhilash Claros M.D. - 12/03/2016 12:38 PM CDT Ambulatory Patient Summary [address] [id number] Visit Information Name: FLAQUITO CARDENAS [facility] Number: [id number] Current Date: 12/03/2016 12:38:41 Physicians Attending Provider: ABHILASH CLAROS MD Primary Care Provider: REYNA STEVENS CNP, MARKETING DIRECTOR ASSISTED LIVING FLAQUITO CARDENAS has been given the following [...] Oral, once a day New Routed to [address] [address] norgestimate-ethinyl estradiol (Sprintec 0.25 mg-35 mcg oral tablet) 1 Tablet(s), Oral, once a day Stop Taking the Following Medications: Medication list as of 12-03-16 12:38 Attention: If you have any medications at home that are not on this list, DO NOT take them until youcontact your provider for clarification. Give a copy of your medication list to your primary care provider. Update your medication list any time medications or doses are changed and carry your medication list at all times in case of emergency. Electronically Signed By: ABHILASH CLAROS MD Signed On:03-DEC-2016 12:38:38 Your Allergies & Intolerances Substance Reaction Symptoms [...] BMI 40-44 posted on 05/22 at 08:45 BROOMCORN SEEDER. Hypothyroidism Acquired Active Apnea Sleep Obstructive (MAGALIE) Active Your Upcoming Appointments Date Time Location Provider 12/04/2016 07:30 [facility] 12/04/2016 10:00 [facility] TABLE AND DESK FINISHER Miriam Callejas NP 02/13/2017 13:00 [facility] 02/13/2017 14:30 [facility] Endocrine Abhilash Claros MD Attention: Contact your local Clinic if [...] if you dont have one. Go to [email or web address] and click on Create Your Account. Then, follow the directions to complete the online form. [place]annah be asked for your [facility] number which you can find at the top of this document. Your Goals/Additional instructions: Source: [facility] [employer]innakrCHART Document Id: [id number] Miscellaneous - Abhilash Claros M.D. - 12/03/2016 12:38 PM CDT Ambulatory Discharge Medication List [place] [id number] [facility] [address] [place], [place] [id number] Visit Information Name: FLAQUITO CARDENAS [facility] Number: [id number] Current Date: 12/03/2016 12:38:40 Attending Provider: ABHILASH CLAROS MD Primary Care Provider: REYNA STEVENS CNP, MARKETING DIRECTOR ASSISTED LIVING FLAQUITO CARDENAS has been given the following [...] Oral, once a day New Routed to [address] [id number] norgestimate-ethinyl estradiol (Sprintec 0.25 mg-35 mcg oral tablet) 1 Tablet(s), Oral, once a day Stop Taking the Following Medications: Medication list as of 12-03-16 12:38 Attention: If you have any medications at home that are not on this list, DO NOT take them until youcontact your provider for clarification. Give a copy of your medication list to your primary care provider. Update your medication list any time medications or doses are changed and carry your medication list at all times in case of emergency. Electronically Signed By: ABHILASH CLAROS MD Signed On:03-DEC-2016 12:38:38 Additional Information: Source: [facility] POWERCHART Document Id: [id number] Miscellaneous - Vianey Rodríguez R.N. - 12/03/2016 10:44 AM CDT Patient Education Patient Education Entered On: 12/03/2016 10:48 CDT Performed On: 12/03/2016 10:44 CDT by VIANEY RODRÍGUEZ RN Education General Patient Education Powergrid Topics : Treatments/Procedures/Tests Individuals Taught : Patient, Other: mother Barriers to Learning : None evident Teaching Method : Demonstration, Explanation, Printed materials Teaching Evaluation : Able to teach back, Returns demonstrations correctly, Verbalizes understanding Comments (Comment: 24 hour urine collection and sylva collection [VIANEY RODRÍGUEZ RN - 12/03/2016 10:44 CDT] ) VIANEY RODRÍGUEZ RN - 12/03/2016 10:44 CDT Source: [facility] [employer] Document Id: [id number] CDT!9 Miscellaneous - Christ Crump L.P.N. - 12/03/2016 9:24 AM CDT Update PCP Document Contains Addenda Addendum by NITZA DALAL on December 03, 2016 10:08:45 CDT From: NITZA DALAL ([place] [facility]) To: CHRIST CRUMP LPN; Sent: 12/03/2016 10:08:45 CDT Subject: RE: Update PCP Done From: CHRIST CRUMP LPN To: [place] [facility]; Sent: 12/03/2016 09:24:06 CDT Subject: Update PCP Please update PCP to Rodney Portillo Thank you Source: [facility] [employer] Document Id: [id number] Electronically signed by Payton [facility] Advocate [id number] at 12/04/2016 6:51 AM CDT Miscellaneous - Christ Crump L.PSebastianNSebastian - 12/03/2016 9:13 AM CDT Adult Sous Chef Intake/History Adult Sous Chef Intake/History Entered On: 12/03/2016 9:18 CDT Performed On: 12/03/2016 9:13 CDT by CHRIST CRUMP LPN Intake Chief Complaint : Establish Care. Hypothyroid Peripheral Pulse Rate : 90 /min Systolic Blood Pressure : 122 mmHg Diastolic Blood Pressure : 62 mmHg NIBP Mean : 82 mmHg BP Location : Right upper extremity Blood Pressure Cuff Size : Large Height : 168 cm(Converted to: 5 ft 6 inch(es), 66 inch(es)) Actual Weight : 113.8 kg(Converted to: 250 lb 14 oz) Weight Source : Standing scale Dosing Weight Clinic : 113.8 kg Clinic BSA : 2.3 Body Mass Index : 40.32 kg/m2 CHRIST CRUMP LPN - 12/03/2016 9:13 CDT General Info Information Given By : Patient, Mother Preferred Communication Mode : Verbal Languages : [place] Is Patient Female and 13-50 no hysterectomy : Yes Status : Patient denies Are you ? : No CHRIST CRUMP LPN - 12/03/2016 9:13 CDT Subjective Pain Symptoms : No CHRIST CRUMP LPN - 12/03/2016 9:13 CDT Dependent Habits Exposure to Tobacco Smoke : Care provider denies smoking in home, Other: Never smoked. No alcohol. Smoking Status : Never smoker Tobacco 2A : No Tobacco Use/Currently Using : No Tobacco Use/Last 30 Days : No Tobacco Use/Last 12 months : No Alcohol Use : No CHRIST CRUMP LPN - 12/03/2016 9:13 CDT Caffeine Use Grid Caffeine Use : Current Current Current Current Type : Soft drinks Coffee Tea Chocolate Frequency : Daily Weekly Weekly Amount : 1 can 4 cups 4 cups 4 servings CHRIST CRUMP LPN - 12/03/2016 9:13 CDT CHRIST CRUMP LPN - 12/03/2016 9:13 CDTHECHRIST MILES OPHTHALMIC DISPENSER - 12/03/2016 9:13 CDT CHRIST MCDANIEL LPN - 12/03/2016 9:13 CDT Recreational Drug Use Grid Drug Use : None CHRIST CRUMP LPN - 12/03/2016 9:13 CDT Source: [facility] [employer] Document Id: [id number] CDT!55 documented in this encounter Plan of Treatment Upcoming Encounters Date Type Specialty Care Team Description 04/22/2022 Appointment Laboratory Medicine Meryl Julio M.D. [address] [place] [address] (Wo rk) 04/29/2022 Office Visit Endocrinology Meryl Julio M .D. [address] [place] [address] (Wo rk) documented as of this encounter Visit Diagnoses Not on filedocumented in this encounter
--- OUTSIDE RECORDS SUMMARY | 2022-03-06 07:12 | XMS_ITS | Encounter Summary ---
:1995 Author Organization [facility] Address [address] [place] [address] Care Team Providers Name Role Phone Unavailable Primary Care Provider Unavailable Encounter Details Date Type Department Care Team Description 12/04/2016 Hospital Encounter HX [facility] Jalil Correa M. D. 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 LEVOTHROID) 112 mcg tablet norgestimate-ethinyl Take 1 tablet by 0 7 04/03/2017 estradiol mouth daily. (for_ORTHO-CYCLEN) 0.25- mg-35 mcg per tablet documented as of this encounter Miscellaneous Notes Miscellaneous - Nery Abrams R.N. - 12/05/2016 10:35 AM CDT Please link labs Document Contains Addenda Addendum by NITZA DALAL on December 05, 2016 12:43:49 CDT From: NITZA DALAL ([place] [facility]) To: NERY ABRAMS RN; Sent: 12/05/2016 12:43:49 CDT Subject: RE: Please link labs Done From: NERY ABRAMS RN To: [place] [facility]; Sent: 12/05/2016 10:35:06 CDT Subject: Please link labs Pt to have labs on 02/13/17 @ 1300. Please link labs Testosterone, DHEAS, and BMP to this draw. Pt isaware and labs entered. Thank you Source: [facility] POWERCHART Document Id: [id number] Electronically signed by Payton, [facility] Social And Human Services Assistant [id number] at 12/06/2016 7:01 AM CDT Miscellaneous - Jalil Duran M.D. - 12/04/2016 3:10 PM CDT Results Notification Document Contains Addenda Addendum by NERY ABRAMS RN on December 05, 2016 10:37:32 CDT Labs entered and linked. Pt is aware and has no further questions at this point Addendum by JALIL DURAN MD on December 05, 2016 10:26:31 CDT From: JALIL DURAN MD To: NERY ABRAMS RN; Sent: 12/05/2016 10:26:31 CDT Show up: 12/05/2016 10:25:00 CDT Subject: RE: Results Notification I would like to give some more time to OCP and evaluate her at next visit for Spironolactone. Please add total and free Testosterone, DHEAS and BMP to her preclinic labs in ~10 weeks. Thanks! Dr Duran Addendum by NERY ABRAMS RN on December 05, 2016 09:49:25 CDT From: NERY ABRAMS RN To: JALIL DURAN MD; Sent: 12/05/2016 09:49:25 CDT Show up: 12/05/2016 09:47:00 CDT Subject: RE: Results Notification I communicated with patient. She is aware of the taper up and will call if problems. She is wondering if you were still interested in the use of spironolactone. Addendum by CHRIST CRUMP LPN on December 04, 2016 17:28:48 CDT Left PT VM to return call in AM. From: JALIL DURAN MD To: NERY ABRAMS RN; Sent: 12/04/2016 15:10:10 CDT ! Show up: 12/04/2016 15:10:10 CDT Subject: Results Notification Actions: Notify patient of results Reminder Comments: Fasting BG not at goal (103) and elevated Triglyceride, Metformin will be good tx option. Start on 500 mg ER daily and increase to BID in 2 weeks as she tolerates (can have some GI side effects in the beginning) Results: Date Result Name Ind Value Ref Range 12/04/2016 09:25 Gluc 2hr Glucola 136 mg/dL ( - <=139) 12/04/2016 07:16 Glucose Fasting (H) 103 mg/dL (70 - 99) Source: [facility] POWERCHART Document Id: [id number] Electronically signed by Conversion, [facility] Social And Human Services Assistant [id number] at 12/06/2016 7:01 AM CDT documented in this encounter Plan of Treatment Upcoming Encounters Date Type Specialty Care Team Description 04/22/2022 Appointment Laboratory Medicine Meryl Julio M.D. [address] [place] [address] (Wo rk) 04/29/2022 Office Visit Endocrinology Meryl Julio M .D. [address] [place] [address] (Wo rk) documented as of this encounter Procedures Procedure Name Priority Date/Time Associated Diagnosis Comme nts GLUCOSE POST Routine 12/04/2016 9:25 AM Results f or this PRANDIAL 2HR, S CDT procedure ar e in the results section. GLUCOSE, FASTING, Routine 12/04/2016 7:16 AM Resu lts for this S/P CDT procedure are i n the results section. documented in this encounter Results Glucose Post Prandial 2H (12/04/2016 9:25 AM CDT) P athologist Signature HXGluc 2hr 136 <=139 MGDL POWERCHART Glucola Comment: 2-Hour Glucose Tolerance Diagnostic Cut- offs; ADA Diagnostic Criteria: Any of the foll owing results, confirmed on a subsequent day, can be considered diagnostic for diabetes: - Fasting glucose > or = 126 mg/dL after an 8 hr fast OR - 2-Hr glucose > or = 200 mg/dL during a 75 gram oral load OR - Glucose casual (random) glucose > or = 200 mg/dL plus typical symptoms Specimen (Source) Anatomical Collection Method Collection Time Re ceived Time Location / / Volume Laterality Blood 12/04/2016 9:25 AM CDT Jalil Parikh M.D. LAB BLOOD ADD-ON Performing Organization Address City/State/ZIP Code Phon e Number POWERCHART POWERCHART NA (ABNORMAL) Glucose, Fasting (12/04/2016 7:16 AM CDT) P athologist Signature Glucose, 103 (H) 70 - 99 POWERCHART Fasting, S MGDL Specimen (Source) Anatomical Collection Method Collection Time Re ceived Time Location / / Volume Laterality Blood 12/04/2016 7:16 AM CDT Jalil Parikh M.D. LAB BLOOD NON ADD-ON Performing Organization Address City/State/ZIP Code Phon e Number POWERCHART POWERCHART NA documented in this encounter Visit Diagnoses Not on filedocumented in this encounter
--- OUTSIDE RECORDS SUMMARY | 2022-03-06 07:12 | XMS_ITS | Encounter Summary ---
:1995 Author Organization [facility] Address [address] [place] [address] Care Team Providers Name Role Phone Suni Stevens APRN, C.N.P. Primary Care Provider Unavailabl e Reason for Visit Reason Comments Med Refill Encounter Details Date Type Department Care Team Description 06/16/2017 Refill Department of Internal [facility] Samuel andace Med Refill Medicine in [place], N, R.N. [address] [address] [place] [address] [phone] Social History Tobacco Use Types Packs/Day Years [...] or relatives? How often do you attend hindu or mandaen More than 4 time s per year 06/21/2021 services? 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 - 06/16/2017 1:09 PM CST Last visit GER MECHANICAL documented in this encounter Plan of Treatment Upcoming Encounters Date Type Specialty Care Team Description 04/22/2022 Appointment Laboratory Medicine Meryl Julio M.D. [address] [place], [place] [address] (Hector martin) 04/29/2022 Office Visit Endocrinology Meryl Julio M .D. [address] [place], [place] [address] (Hectro martin) documented as of this encounter Visit Diagnoses Not on filedocumented in this encounter Care Teams Insurance Agency Sales Manager Relationship Specialty Start Date End Date Suni Stevens APRN, C.N.P. PCP - General 03/06/17 02/03/18 documented as of this encounter
--- OUTSIDE RECORDS SUMMARY | 2022-03-06 07:12 | XMS_ITS | Encounter Summary ---
:1995 Author Organization [facility] Address [address] [place] [address] Care Team Providers Name Role Phone Unavailable Primary Care Provider Unavailable Encounter Details Date Type Department Care Team Description 11/11/2016 Hospital Encounter HX [facility] MAMiriam Azar, BARBARA, C.N.P., M.S.N., R.N. 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 - 11/11/2016 4:16 PM CDT patient phone call- f/u on past message. Document Contains Addenda Addendum by EDU MORALES RN on November 12, 2016 09:14:10 CDT coming in today Addendum by MIRIAM HEATH APRN, CNP on November 12, 2016 08:34:06 CDT From: MIRIAM HEATH APRN, CNP To: [facility] Specialty Obstetrics/Gynecology Nurse; Sent: 11/12/2016 08:34:06 CDT Subject: RE: patient phone call- f/u on past message. Schedule patient for appt. with our clinic. We can rule out anything MASTER BLACK BELT. From: EDU MORALES RN ([facility] Specialty Obstetrics/Gynecology Nurse) To: MIRIAM HEATH APRN, CNP; Sent: 11/11/2016 16:16:46 CDT Subject: patient phone call- f/u on past message. 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 My question from her, to you is: Are you willing to treat her pain? I told her this is a very difficult decision as we may be masking pain that isnt GROUNDSKEEPING YARDMAN in nature though I told her I would still ask. 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 Source: [facility] POWERCHART Document Id: [id number] Miscellaneous - Edu oMrales R.N. - 11/11/2016 9:11 AM CDT pain, US results Document Contains Addenda Addendum by EDU MORALES RN on November 11, 2016 11:37:20 CDT Informed patient that her US is normal therefore she is again told to go to the ER to evaluate the pain Addendum by EDU MORALES RN on November 11, 2016 09:56:12 CDT Patient was informed of this. She states that she would really like to avoid going to the Emergencyroom. I told her the choice is hers however our recommendations are that she does go into the ER. Addendum by MIRIAM HEATH APRN, CNP on November 11, 2016 09:48:11 CDT From: MIRIAM HEATH APRN, CNP To: [facility] Specialty Obstetrics/Gynecology Nurse; Sent: 11/11/2016 09:48:11 CDT Subject: RE: pain, US results Waiting on US report. Patient should go to ER for this pain. From: EDU MORALES RN ([facility] Specialty Obstetrics/Gynecology Nurse) To: MIRIAM HEATH APRN, CNP; Sent: 11/11/2016 09:11:53 CDT Subject: pain, US results Patient called and states that she just had a transvaginal US completed that was ordered by us. She states that her pain has worsened the past few days. 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 Patient states that she feels like something is being pinched. This pain even caused her to vomit. Rating pain a 9 on pain scale and became tearful on phone. She is using aleve BID for the pain, however this is starting to hurt her stomach. In regards to vaginal bleeding. She reports that she began having vaginal bleeding this am. This is unusual for her as she typically does not bleed unless she is on control, and she is not on control currently. Informed patient that at this time for her to go to the ER is not totally our of the question. In fact it may be recommened.Or if she wishes to have the results from the US first, that would be helpfulalso. She is going to wait and see what the US says and then proceed from there. In regards to bleeding she is aware that she needs to seek emergency care if the bleeding becomes heavy, such as saturating a pad every one hour. Source: [facility] POWERCHART Document Id: [id number] documented in this encounter Plan of Treatment Upcoming Encounters Date Type Specialty Care Team Description 04/22/2022 Appointment Laboratory Medicine Meryl Julio M.D. [address] [place] [id number] ([address]in) 04/29/2022 Office Visit Endocrinology Meryl Julio M .D. [address] [place] [phone] (Hector martin) documented as of this encounter Procedures Procedure Name Priority Date/Time Associated Comments Diagnosis US PELVIS TRANSVAGINAL Routine 11/11/2016 8:04 AM Results for this AND TRANSABDOMINAL CDT procedure are in the results section. documented in this encounter Results US Pelvis Transvaginal and Transabdominal (11/11/2016 8:04 AM CDT) Anatomical Region Laterality Modality Pelvis N/A Ultrasound Specimen (Source) Anatomical Collection Method Collection Time Re ceived Time Location / / Volume Laterality 11/11/2016 8:04 AM CDT Impressions 11/11/2016 10:49 AM CDT Sonographically normal pelvic ultrasound, ovaries within normal limits without evidence for PCOS. Narrative 11/11/2016 10:49 AM CDT Additional history: 21-year-old female w ith LMP 08/11/2016. Patient is . Irregular menstrual cycle with so me periods of amenorrhea COMPARISON: None. FINDINGS: The uterus measures 5.9 x 4.2 x 2.6 cm. The endometrial stripe measures 6 mm thick. There is no free fluid. Right adnexa: The right ovary measures 2 .4 x 2.2 x 1.7 cm (total volume of 4.6 cc, considered normal), an d contains several normal appearing follicles. Normal Doppler flow is demonstrated to the right ovary. Left adnexa: The left ovary measures 2.9 x 2.1 x 2.1 cm (total volume measuring 6.6 cc, considered normal), an d contains several normal appearing follicles. Normal Doppler flow is demonstrated to the left ovary. Transvaginal ultrasound was performed fo r better visualization of structures. Procedure Note Jet Spears M.D. / Provider, Eagle brower M.D. - 11/28/2016 Additional history: 21-year-old female w ith LMP 08/11/2016. Patient is . Irregular menstrual cycle with so me periods of amenorrhea COMPARISON: None. FINDINGS: The uterus measures 5.9 x 4.2 x 2.6 cm. The endometrial stripe measures 6 mm thick. There is no free fluid. Right adnexa: The right ovary measures 2 .4 x 2.2 x 1.7 cm (total volume of 4.6 cc, considered normal), an d contains several normal appearing follicles. Normal Doppler flow is demonstrated to the right ovary. Left adnexa: The left ovary measures 2.9 x 2.1 x 2.1 cm (total volume measuring 6.6 cc, considered normal), an d contains several normal appearing follicles. Normal Doppler flow is demonstrated to the left ovary. Transvaginal ultrasound was performed fo r better visualization of structures. IMPRESSION: Sonographically normal pelvi c ultrasound, ovaries within normal limits without evidence for PCOS. Ashley Lenz R.V.T., GabeMSebastianSSebastian IMG US PROCEDURES documented in this encounter Visit Diagnoses Not on filedocumented in this encounter
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
--- OUTSIDE RECORDS SUMMARY | 2022-03-06 07:12 | XMS_ITS | Encounter Summary ---
:1995 Author Organization [facility] Address [address] [place] [address] Care Team Providers Name Role Phone Unavailable Primary Care Provider Unavailable Encounter Details Date Type Department Care Team Description 10/21/2016 Hospital Encounter HX [facility] Reyna Jhaveri, PROOF TECHNICIAN HELPER, C.N.P. 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 - 10/21/2016 3:20 PM CDT Normal Results Letter October 21, 2016 FLAQUITO TURNER [address] [facility] [place] [id number] Dear FLAQUITO TURNER, I am pleased to report that your results from the following diagnostic test(s) are normal. Please follow up with us as we discussed during your visit or sooner if you have any concerns. If you have questions or concerns, please do not hesitate to call our office. Would you like to see your lab results quickly? If you have an e-mail account, join the other [phone],000 [facility] patients who use the Patient Online Services to conveniently access their lab results by calling [phone] to sign up for an account. It just takes a few minutes! Result Name Current Result US Thyroid 10/21/2016 Sincerely, REYNA HWANG [address] [place] [address] Electronic Signature Electronically Signed By: REYNA HWANG CNP, APRN On: October 21, 2016 This document has images extracted. Source: [facility] POWERCHART Document Id: [id number] documented in this encounter Plan of Treatment Upcoming Encounters Date Type Specialty Care Team Description 04/22/2022 Appointment Laboratory Medicine Meryl Julio M.D. [address] [place] [address] [place] [address] (Wo rk) 04/29/2022 Office Visit Endocrinology Meryl Julio M .D. [address] [place], [place] [address] (Wo rk) documented as of this encounter Procedures Procedure Name Priority Date/Time Associated Diagnosis Comme nts US THYROID Routine 10/21/2016 8:54 AM Results f or this CDT procedure are i n the results section . documented in this encounter Results Ultrasound thyroid (10/21/2016 8:54 AM CDT) Anatomical Region Laterality Modality Head and Neck Ultrasound Specimen (Source) Anatomical Collection Method Collection Time Re ceived Time Location / / Volume Laterality 10/21/2016 8:54 AM CDT Impressions 10/21/2016 9:56 AM CDT Essentially unremarkable thyroid ultrasound, without glandular enlargement or a concerning th yroid nodule. See above RE: incidental findings. Narrative 10/21/2016 9:56 AM CDT REASON FOR EXAM: Abnormal physical exam with enlargement of the thyroid gland. History of hypothyroidism . Age 21. Technique: Grayscale and Doppler ultraso und (US) imaging of the thyroid was performed. COMPARISON: None. FINDINGS: The right lobe of the thyroid measures 5.6 x 1.6 x 1.8 cm giving a volume of 7.8 cc, within upper normal limits. The left lobe of the thyroid measures 4.6 x 1.7 x 1.2 cm giving a volume of 4.5 cc, within normal limits. The isthmus measur es up to 4.5 mm, either upper normal limits or slightly thickened. The echogenicity of the thyroid gland is abnormally heterogeneous (inhom ogeneous) throughout, but no concerning thyroid nodule or mass is jonathan ntified. No abnormally hyperemic thyroid gland Doppler blood fl ow is observed. No significant surrounding abnormalities are incidental ly noted, but there are multiple bilateral neck lymph nodes with non-enlarged subcentimeter short axes and non-pathologic fatty juan . There is also a tiny 5 x 4 x 4 mm nonspecific area adjacent to the lo wer pole of the right thyroid gland which is either a normal lymph nod e or the inferior right parathyroid gland. Procedure Note Jon Lockett M.D. / Provider, Histor ical, M.D. - 11/13/2016 REASON FOR EXAM: Abnormal physical exam with enlargement of the thyroid gland. History of hypothyroidism . Age 21. Technique: Grayscale and Doppler ultraso und (US) imaging of the thyroid was performed. COMPARISON: None. FINDINGS: The right lobe of the thyroid measures 5.6 x 1.6 x 1.8 cm giving a volume of 7.8 cc, within upper normal limits. The left lobe of the thyroid measures 4.6 x 1.7 x 1.2 cm giving a volume of 4.5 cc, within normal limits. The isthmus measur es up to 4.5 mm, either upper normal limits or slightly thickened. The echogenicity of the thyroid gland is abnormally heterogeneous (inhom ogeneous) throughout, but no concerning thyroid nodule or mass is jonathan ntified. No abnormally hyperemic thyroid gland Doppler blood fl ow is observed. No significant surrounding abnormalities are incidental ly noted, but there are multiple bilateral neck lymph nodes with non-enlarged subcentimeter short axes and non-pathologic fatty juan . There is also a tiny 5 x 4 x 4 mm nonspecific area adjacent to the lo wer pole of the right thyroid gland which is either a normal lymph nod e or the inferior right parathyroid gland. IMPRESSION: Essentially unremarkable thy roid ultrasound, without glandular enlargement or a concerning th yroid nodule. See above RE: incidental findings. Almita Velasco R.V.T., [place] IMG US PROCEDURES documented in this encounter Visit Diagnoses Not on filedocumented in this encounter
--- OUTSIDE RECORDS SUMMARY | 2022-03-06 07:12 | XMS_ITS | Encounter Summary ---
:1995 [address] [facility] Address [address] [place] [address] Care Team Providers Name Role Phone Unavailable Primary Care Provider Unavailable Encounter Details Date Type Department Care Team Description 12/04/2016 Hospital Encounter [facility]X [facility] Miriam Avendano A PRN, C.N.P., M.S.N., R.N. 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 LEVOTHROID) 112 mcg tablet norgestimate-ethinyl Take 1 tablet by 0 7 04/03/2017 estradiol mouth daily. (for_ORTHO-CYCLEN) 0.25- mg-35 mcg per tablet documented as of this encounter Progress Notes Miriam Callejas, BARBARA, M.S.N., C.N.P. - 12/04/2016 10:23 AM CDT F/U ultrasound results CHIEF COMPLAINT/REASON FOR VISIT Patient is here for ultrasound follow-up after rescheduling. HISTORY OF PRESENT ILLNESS Patient is a 21-year-old female who I originally saw on October 29, 2016 with complaints of abnormal menstrual bleeding. She had menarche at age 13. At age 16 she developed dysmenorrhea. There is a historyof laparoscopy demonstrating endometriosis. She was started on Depo-Provera. She continued this for 3-4 years. After stopping Depo-Provera she was having irregular cycles. She also gained over 100 lb in the last 2 years. Patient has been diagnosed with hypothyroidism. Physician in [place] where she attends college started her on oral contraception July 29 of this year and recommended that she continue to use this for 3 months and then follow up after that time. He mike DHEA-S, prolactin and totaltestosterone to check for polycystic ovarian syndrome. Testosterone was high. Patient states that she has been having a lot of ovarian pain. She has bleeding daily on the control pill that she was started on. Last Pap smear was in 2014 that was within normal limits. Patient saw my colleague Dr. Carmen Rodriguez on November 13, 2016. Together they went over the medical records from [facility]. The discussed her abnormal bleeding. The discussed her history of recurrent pyelonephritis. We are still awaiting an operative report from previous provider who did diagnostic laparoscopy at [address] Rodriguez started the patient on 600 mg of Motrin. Advised to continue taking Aleve. She also prescribe Zantac for gastric upset secondary to leave. She was started on Sprintec and advised to follow up in 3 months. Patient is here today to discuss ultrasound results from that ultrasound performed on November 11, 2016. Per Dr. Mccrary notes the ultrasound was normal I guess this was not discussed with the patient any further. MEDICATIONS levothyroxine: 112 mcg,1 tab(s),PO,Daily norgestimate-ethinyl estradiol: 1 tab(s),PO,Daily ALLERGIES Flonase (Nose bleed) ciprofloxacin clindamycin (anaphylaxis) gentamicin (anaphylaxis) BLOOD PRESSURE Systolic Blood Pressure: 98 mmHg Diastolic Blood Pressure: 68 mmHg MEASUREMENTS Height: 168 cm Actual Weight: 113.5 kg Body Mass Index: 40.21 kg/m2 PHYSICAL EXAMINATION GENERAL: Patient is in no distress. Capable of full communication without difficulty. Patient is polite and cooperative. Appropriately dressed and normal hygiene. IMPRESSION/REPORT/PLAN 1. Abnormal uterine bleeding 2. PCOS Plan: Discussed with patient the findings of her ultrasound or uterus measures 5.9 x 4.2 x 2.6 cm endometrial stripe measures 6 mm thick. No free fluid. Right ovary measuring normal and contains several normal appearing follicles. Left ovary measuring normal and contains several normal appearing follicles. Normal Doppler flow to bilateral ovaries. Patient is encouraged to continue with her control pill as prescribed. She will follow up here in the clinic in 3 months time. As patient will be attending college she may have to push that back until she has a break such as [place] vacation. Patient is in agreement with this plan. She will call if she has any other questions or concerns. All q uestions answered to the best my ability today. Electronically Signed By: MIRIAM CALLEJAS APRN, CNP On: 12/04/2016 10:29 AM Source: [facility] Document Id: [id number] documented in this encounter Nursing Notes Miriam Callejas APRN, M.S.N., C.N.P. - 12/04/2016 10:23 AM CDT Ambulatory Patient Education The following Patient Education Materials have been given to the patient: Patient Education Materials: Court Supervisor What Is Polycystic Ovary Syndrome? Court Supervisor What Is Polycystic Ovary Syndrome? Polycystic ovary syndrome (PCOS) causes harmless cysts in the ovaries and also causes other symptoms. PCOS is caused by certain hormones being out of balance. The word syndrome means a group of symptoms. Women with PCOS may have no periods, irregular periods, or very long periods. Your Ovaries pardA womans ovaries are where her eggs are stored. Each egg is in a capsule called a follicle. Each month, one follicle grows to produce a mature egg. This egg is released (ovulation) and the follicle dissolves. Hormones out of Balance With polycystic ovary syndrome (PCOS), the chemicals (hormones) that control ovulation are out of balance. These include estrogen and androgen (a male hormone). As a result, ovulation may not occur. Instead, the follicle stays enlarged. This is a cyst (fluid-filled sac). Over time, the ovaries fill with many cysts. This is why they are called poly (many) cystic ovaries. In some women, the ovaries also make too many male hormones. PCOS Symptoms Women with PCOS may also have one or more of these symptoms: Trouble getting (fertility problems) Weight gain Acne Hair growth on the face and other parts of the body If it is not treated, PCOS may also increase a womans risk for cancer of the uterine lining. ?? [id number] [employer], [address] [place] [address]. All rights reserved. This information is not intended as a substitute for professional medical care. Always follow your healthcare professional's instructions. This document has images extracted. Please consider using [employer] for all your patient education needs. Source: [facility] POWERCHART Document Id: [id number] documented in this encounter Miscellaneous Notes Miscellaneous - Miriam Callejas APRN, M.S.N., C.N.P. - 12/04/2016 10:23 AM CDT Ambulatory Patient Summary [address] [place] [id number] Visit Information Name: FLAQUITO TURNER [facility] Number: [id number] Current Date: 12/04/2016 10:23:41 Physicians Attending Provider: MIRIAM CALLEJAS APRN, CNP Primary Care Provider: REYNA HWANG CNP, APRN FLAQUITO TURNER has been given the following [...] the Following Medications: Medication list as of 12-04-16 10:23 Attention: If you have any medications at [...] Signed By: MIRIAM CALLEJAS APRN, CNP Signed On:04-DEC-2016 10:23:28 Your Allergies & Intolerances Substance Reaction Symptoms [...] BMI 40-44 posted on 05/22 at 08:45 SIMULATION EDUCATOR. Hypothyroidism Acquired Active Apnea Sleep Obstructive (MAGALIE) Active Polycystic Ovary Syndrome (PCOS) Active Thyroiditis Deric's Active Your Upcoming Appointments Date Time Location Provider 02/13/2017 13:00 [facility] 02/13/2017 14:30 [facility] Jalil LOPEZ Attention: Contact your local Clinic if further appointment detail needed. What Is Polycystic Ovary Syndrome? Polycystic ovary syndrome (PCOS) causes harmless cysts in the ovaries and also causes other symptoms. PCOS is caused by certain hormones being out of balance. The word syndrome means a group of symptoms. Women with PCOS may have no periods, irregular periods, or very long periods. Your Ovaries A womans ovaries are where her eggs are stored. Each egg is in a capsule called a follicle. Each month, one follicle grows to produce a mature egg. This egg is released (ovulation) and the follicle dissolves. Hormones out of Balance With polycystic ovary syndrome (PCOS), the chemicals (hormones) that control ovulation are out of balance. These include estrogen and androgen (a male hormone). As a result, ovulation may not occur. Instead, the follicle stays enlarged. This is a cyst (fluid-filled sac). Over time, the ovaries fill with many cysts. This is why they are called poly (many) cystic ovaries. In some women, the ovaries also make too many male hormones. PCOS Symptoms Women with PCOS may also have one or more of these symptoms: Trouble getting (fertility problems) Weight gain Acne Hair growth on the face and other parts of the body If it is not treated, PCOS may also increase a womans risk for cancer of the uterine lining. ?? [id number] [facility], [address] [place] [address], [place] [address]. All rights reserved. This information is not [...] if you dont have one. Go to [email or web address] and click on Create Your Account. Then, follow the directions to complete the online form. Youll be asked for your [facility] number which you can find at the top of this document. Your Goals/Additional instructions: This document has images extracted. Please consider using [employer] for all your patient education needs. Source: [facility] POWERCHART Document Id: [id number] Miscellaneous - Miriam Callejas APRN M.S.N., C.N.P. - 12/04/2016 10:23 AM CDT Ambulatory Discharge Medication List [address] [place] [id number] Visit Information Name: FLAQUITO TURNER [facility] Number: [id number] Current Date: 12/04/2016 10:23:40 Attending Provider: MIRIAM CALLEJAS APRN, CNP Primary Care Provider: REYNA HWANG CNP, APRN FLAQUITO TURNER has been given the following [...] the Following Medications: Medication list as of 12-04-16 10:23 Attention: If you have any medications at [...] Signed By: MIRIAM CALLEJAS APRN, CNP Signed On:04-DEC-2016 10:23:28 Additional Information: Source: [facility] POWERCHART Document Id: [id number] Miscellaneous - Isabela Gonzalez, L.P.N. - 12/04/2016 10:03 AM CDT Adult Joy Operator Intake/History Adult Joy Operator Intake/History Entered On: 12/04/2016 10:09 CDT Performed On: 12/04/2016 10:03 CDT by ISABELA GONZALEZ LPN Intake Chief Complaint : Follow up pelvic ultra sound on 11-11-16, irregular bleeding LMP Date : 12/01/2016 Ambulatory Intake Additional Information : 11/11/2016 Systolic Blood Pressure : 98 mmHg Diastolic Blood Pressure : 68 mmHg NIBP Mean : 78 mmHg BP Location : Right upper extremity Blood Pressure Cuff Size : Large Height : 168 cm(Converted to: 5 ft 6 inch(es), 66 inch(es)) Actual Weight : 113.5 kg(Converted to: 250 lb 4 oz) Weight Source : Standing scale Dosing Weight Clinic : 113.5 kg Clinic BSA : 2.3 Body Mass Index : 40.21 kg/m2 ISABELA GONZALEZ LPN - 12/04/2016 10:03 CDT General Info Information Given By : Patient Preferred Communication Mode : Verbal Languages : Ethiopian Is Patient Female and 13-50 no hysterectomy : Yes Status : Patient denies Are you ? : No ISABELA GONZALEZ [facility] 12/04/2016 10:03 CDT Subjective Pain Symptoms : Yes ISABELA GONZALEZ [facility] 12/04/2016 10:03 CDT Pain Scale Pain Scale Verbal 0-10 : Open ISABELA GONZALEZ [facility] 12/04/2016 10:03 CDT Pain Pain Assessment Grid Pain 1 Location : Abdomen Laterality : Left Intensity : 6 ISABELA GONZALEZ [facility] 12/04/2016 10:03 CDT Dependent Habits Exposure to Tobacco Smoke : Care provider denies smoking in home, Other: Never smoked. No alcohol. Smoking Status : Never smoker Tobacco 2A : No Tobacco Use/Currently Using : No Tobacco Use/Last 30 Days : No Tobacco Use/Last 12 months : No ISABELA GONZALEZ [facility] 12/04/2016 10:03 CDT Caffeine Use Grid Caffeine Use : Current Current Current Current Type : Soft drinks Coffee Tea Chocolate Frequency : Daily Weekly Weekly Amount : 1 can 4 cups 4 cups 4 servings ISABELA GONZALEZ [facility] 12/04/2016 10:03 CDT ISABELA GONZALEZ [facility] 12/04/2016 10:03 CDT ISABELA GONZALEZ [facility] 12/04/2016 10:03 CDT ISABELA GONZALEZ [facility] 12/04/2016 10:03 CDT Recreational Drug Use Grid Drug Use : None ISABELA GONZALEZ [facility] 12/04/2016 10:03 CDT Source: [facility]czCHART Document Id: [id number] CDT!63 documented in this encounter Plan of Treatment Upcoming Encounters Date Type Specialty Care Team Description 04/22/2022 Appointment Laboratory Medicine Meryl Julio M.D. [address] [place] [address] (Hector martin) 04/29/2022 Office Visit Endocrinology Meryl Julio M .D. [address] [place] [address] (Wo rk) documented as of this encounter Visit Diagnoses Not on filedocumented in this encounter
--- OUTSIDE RECORDS SUMMARY | 2022-03-06 07:12 | XMS_ITS | Encounter Summary ---
:[address] [facility] Address [address] [place] [address] Care Team Providers Name Role Phone Suni Stevens APRN, C.N.P. 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 [address] [place], [place] [address] (Hector martin) 04/29/2022 Office Visit Endocrinology Meryl Julio M .D. [address] [place], [place] [address] (Hector martin) documented as of this encounter Procedures Procedure Name Priority Date/Time Associated Diagnosis Comme nts CREATININE, U Routine 08/05/2017 2:00 PM Abnormal Weight Gain Results for this CDT procedure are i n the results section. CORTISOL, FREE, U Routine 08/05/2017 2:00 PM Abnormal Weight G ain Results for this CDT procedure are i n the results section. documented in this encounter Results (ABNORMAL) Creatinine, 24 Hour, Urine (08/05/2017 2:00 PM CDT) athologist Signature Creatinine, 24 1936 (H) mg/24 h 08/05/2017 [facility] HR, U 6:27 PM CDT [facility] Comment: ----REFERENCE VALUE---- The expected creatinine excretion per 24 hrs for females: 601-1689 mg/24 hrs or 9-26 mg/kg/24 hrs. Note: To convert to mg/kg of body weight /24 hrs,divide the mg/24 h result by the weight in kg. Collection Duration 24 h 08/05/2017 3:28 PM C DT [facility] Urine Volume 2200 mL 08/05/2017 3:28 PM CDT [facility] Creatinine Conc 88 mg/dL 08/05/2017 6:27 PM CDT [facility] Specimen Anatomical Collection Method Collection Time Receive d Time (Source) Location / / Volume Laterality Urine 08/05/2017 2:00 PM 8 5:58 CDT PM CDT Jalil Parikh M.D. LAB URINE ORDERABLES Performing Organization Address City/State/ZIP Code Phon e Number [facility] [address] [place] [address] LAB Cortisol, Free, 24 Hour, Urine (08/05/2017 2:00 PM CDT) athologist Signature Cortisol, U 20 3.5 - 45 08/08/2017 [facility] mcg/24 h 12:[address] [facility] Collection 24 h 08/08/2017 [facility] Duration 12:[address] [facility] Volume 2200 mL 08/08/2017 [facility] 12:[address] [facility] Comment: ----ADDITIONAL INFORMATION---- This test was developed and its performa nce characteristics determined by [facility] in a manner consistent with CLIA requirements. This test has not been cleared or approved by the [place] d and Drug Administration. Specimen Anatomical Collection Method Collection Time Receive d Time (Source) Location / / Volume Laterality Urine 08/05/2017 2:00 PM 8 CDT 11:29 AM CDT Jalil Parikh M.D. LAB URINE ORDERABLES Performing Organization Address City/State/ZIP Code Phon e Number [facility] [address] [place] [address] CENTER documented in this encounter Visit Diagnoses Diagnosis Abnormal Weight Gain documented in this encounter Care Teams Instrumentation And Controls Technician Relationship Specialty Start Date End Date Suni Stevens APRN, C.N.P. PCP - General 03/06/17 02/03/18 documented as of this encounter
--- OUTSIDE RECORDS SUMMARY | 2022-03-06 07:13 | XMS_ITS | Encounter Summary ---
:1995 Author Organization [facility] Address [address] [place] [address] Care Team Providers Name Role Phone Unavailable Primary Care Provider Unavailable Encounter Details Date Type Department Care Team Description 10/20/2014 Hospital Encounter HX [facility] Nelson Martinez D.O. 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 - 10/20/2014 3:38 PM CDT Depo-Provera Administration Depo-Provera Administration Entered On: 10/20/2014 15:38 CDT Performed On: 10/20/2014 15:38 CDT by LILA PERALTA LPN Depo-Provera Administration Annual Exam in the Past 12 Months : Yes Last Depo-Provera Given : 07/28/2014 PROPERTY CONTROLLER Return appointment : 01/06/2015 CDT Needs test : No LILA PERALTA LPN - 10/20/2014 15:38 CDT Source: [facility] POWERCHART Document Id: [id number] CDT!6 documented in this encounter Miscellaneous Notes Miscellaneous - Terrell Barcenas C.M.A. - 10/30/2014 10:24 AM CDT [facility] letter Document Contains Addenda Addendum by CRISTIANO HILTON LPN on 30 October 2014 16:52:37 CDT Spoke with patient and advised her Dr Stone wanted her to be seen. Pt verbalized understanding. Transferred patient to scheduling to make that appt. Addendum by NELSON STONE DO on 30 October 2014 16:01:07 CDT From: NELSON STONE DO To: [facility] Residency Nurse; Sent: 10/30/2014 16:01:07 CDT Subject: RE: [facility] letter I think this needs a clinic visit. In order to document appropriately, I would like to have her seenin clinic. Nelson Addendum by AG TAVERA LPN on 30 October 2014 10:37:07 CDT From: AG TAVERA LPN ([facility] Residency Nurse) To: NELSON STONE DO; Sent: 10/30/2014 10:37:07 CDT Subject: FW: [facility] letter Addendum by AG TAVERA LPN on 30 October 2014 10:33:33 CDT From: AG TAVERA LPN ([facility] Nurse) To: [facility] Residency Nurse; Sent: 10/30/2014 10:33:33 CDT Subject: FW: [facility] letter Addendum by ARTUR MILLER LPN on 30 October 2014 10:33:22 CDT From: ARTUR MILLER LPN ([facility] Nurse) To: [facility] Residency Nurse; Sent: 10/30/2014 10:33:22 CDT Subject: FW: [facility] letter From: TERRELL BARCENAS (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 PCP is currently Nelson Stone but she is not sure if she needs to have him write the letter or have . Letter is in regards to her missing school and withdrawing from classes last fall. According to pt she withdrew from classes at the end of January 2014 and then again the next semester due to her best friend being killed in a car accident. Pt states that she missed a lot of school due to anxiety, depression, and also attending court cases for her best friend. Since she withdrew from these classes her financial sales assistant was effected and now she might not be able to get financial sales assistant for this semester without a doctors note explaining why she missed school. Please advise if this is something that can be written for her? She is willing to pick it up from the clinic. CB# [phone]. Does she need to be seen in clinic? Source: [facility] POWERCHART Document Id: [id number] documented in this encounter Plan of Treatment Upcoming Encounters Date Type Specialty Care Team Description 04/22/2022 Appointment Laboratory Medicine Meryl Julio M.D. [address] [place] [address] (Hector martin) 04/29/2022 Office Visit Endocrinology Meryl Julio M .D. [address] [place], [place] [address] (Hector martin) documented as of this encounter Visit Diagnoses Not on filedocumented in this encounter
--- OUTSIDE RECORDS SUMMARY | 2022-03-06 07:13 | XMS_ITS | Encounter Summary ---
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 - 11/04/2012 10:22 AM CDT Depo-Provera Administration Depo-Provera Administration Entered On: 11/04/2012 10:23 CDT Performed On: 11/04/2012 10:22 CDT by ARABELLA ESPINOSA RN Depo-Provera Administration Annual Exam in the Past 12 Months : Yes Last Depo-Provera Given : 08/05/2012 CDT Return appointment : 01/20/2013 CDT Needs test : No ARABELLA ESPINOSA RN - 11/04/2012 10:22 CDT Vitals/Ht/Wt Peripheral Pulse Rate : 68 /min Systolic Blood Pressure : 100 mmHg Diastolic Blood Pressure : 68 mmHg NIBP Mean : 79 mmHg Actual Weight : 71.6 kg(Converted to: 157 lb 14 oz) Weight Source : Standing scale Dosing Weight Clinic : 71.6 kg ARABELLA ESPINOSA RN - 11/04/2012 10:22 CDT Source: [facility] [employer] Document Id: [id number] CDT!14 documented in this encounter Plan of Treatment Upcoming Encounters Date Type Specialty Care Team Description 04/22/2022 Appointment Laboratory Medicine Meryl Julio M.D. [facility] [place], [place] [address] (Wo rk) 04/29/2022 Office Visit Endocrinology Meryl Julio M .D. [facility] [place], [place] [address] (Wo rk) documented as of this encounter Visit Diagnoses Not on filedocumented in this encounter
--- OUTSIDE RECORDS SUMMARY | 2022-03-06 07:13 | XMS_ITS | Encounter Summary ---
:1995 Author Organization [facility] Address [address] [place] [address] Care Team Providers Name Role Phone Unavailable Primary Care Provider Unavailable Encounter Details Date Type Department Care Team Description 09/30/2013 Hospital Encounter HX [facility] Bolivar Watson M.D. 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 - 09/30/2013 1:30 PM CDT Depo-Provera Administration Depo-Provera Administration Entered On: 09/30/2013 13:31 CDT Performed On: 09/30/2013 13:30 CDT by ISSAC SANCHEZ Depo-Provera Administration Last Depo-Provera Given : 07/13/2013 PROJECT MANAGER Needs test : No ISSAC SANCHEZ - 09/30/2013 13:30 CDT Vitals/Ht/Wt Actual Weight : 87.5 kg(Converted to: 192 lb 14 oz) Dosing Weight Clinic : 87.5 kg ISSAC SANCHEZ - 09/30/2013 13:30 CDT [facility] Document Id: [id number] CDT!7 documented in this encounter Miscellaneous Notes Miscellaneous - Reba Goodwin - 07/10/2016 12:40 PM CST request for lab orders From: REBA GOODWIN ([place] Patient Access Referrals) To: PREETHI SUMMERS APRN, YOUSUF; Sent: 07/10/2016 12:40:12 PROJECT MANAGER Subject: request for lab orders PT coming for yealy exam 08/08. Do you want any labs done prior? Thanks! Source: [facility] [employer] Document Id: [id number] Electronically signed by [facility], [facility] Edge Trimming Machine Operator [id number] at 10/21/2016 5:22 AM CDT Miscellaneous - Issac Sanchez, C.M.A. - 09/30/2013 1:12 PM CDT Depo Document Contains Addenda Addendum by MADYSON HDZ MD on 30 Sep 2013 13:20:38 CD[facility] From: ISSAC SANCHEZ To: MADYSON HDZ MD; Sent: 09/30/2013 13:12:22 CDT Subject: Depo Pt is here on nurse only schedule for depo. Medication had only one refill as of 01/2013 could we doone time order for depo today with pt need for appointment before next? Source: [facility] [employer] Document Id: [id number] Electronically signed by [employer], [facility] Edge Trimming Machine Operator [id number] at 10/21/2016 5:22 AM CDT Miscellaneous - Issac Sanchez C.M.A. - 09/30/2013 12:54 PM CDT depo Document Contains Addenda Addendum by LILI MONDRAGON RN on 30 Sep 2013 13:27:02 CDT order received from Dr Hdz to give, but pt notified due for annual before further injections. From: ISSAC SANCHEZ To: LILI MONDRAGON RN; Sent: 09/30/2013 12:54:15 CDT Subject: depo Lili, Pt medication order fo depo has no more refills please advise. Source: [facility] [employer] Document Id: [id number] documented in this encounter Plan of Treatment Upcoming Encounters Date Type Specialty Care Team Description 04/22/2022 Appointment Laboratory Medicine Meryl Julio M.D. [address] [place] [address] (Wo rk) 04/29/2022 Office Visit Endocrinology Meryl Julio M .D. [address] [place] [address] (Wo rk) documented as of this encounter Visit Diagnoses Not on filedocumented in this encounter
--- OUTSIDE RECORDS SUMMARY | 2022-03-06 07:13 | XMS_ITS | Encounter Summary ---
:1995 Author Organization [facility] Address [address] [place] [address] Care Team Providers Name Role Phone Unavailable Primary Care Provider Unavailable Encounter Details Date Type Department Care Team Description 02/01/2013 Hospital Encounter HX [facility] Bolivar Watson M.D. 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 documented as of this encounter Procedure Notes Emeli Martin CSebastianMAnup - 02/01/2013 1:01 PM CDT Depo-Provera Administration Depo-Provera Administration Entered On: 02/01/2013 13:01 CDT Performed On: 02/01/2013 13:01 CDT by EMELI MARTIN Depo-Provera Administration Annual Exam in the Past 12 Months : Yes Needs test : No EMELI MARTIN - 02/01/2013 13:01 CDT [facility] [employer] Document Id: [id number] CDT!4 documented in this encounter Plan of Treatment Upcoming Encounters Date Type Specialty Care Team Description 04/22/2022 Appointment Laboratory Medicine Meryl Julio M.D. [facility] [place], [place] [address] (Hector martin) 04/29/2022 Office Visit Endocrinology Meryl Julio M .D. [address] [place], [place] [address] (Hector martin) documented as of this encounter Visit Diagnoses Not on filedocumented in this encounter
--- OUTSIDE RECORDS SUMMARY | 2022-03-06 07:13 | XMS_ITS | Encounter Summary ---
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 - 08/20/2013 12:20 PM CDT Hospital Discharge Instructions [address] [address] Patient Discharge Instructions Name: FELECIA CARDENAS Current Date: 08/20/2013 12:20:41 : 1995 12:00 AM [facility] Number: [id number] Patient Address: [address] [place] [phone] Patient Primary Care Provider: Name: CHRIS AGUILERA DO Discharge Diagnosis: Infection Urinary Tract Asymptomatic UTI; Pain Back NOS [facility] in [place] would like to thank you for allowing us to assist you with yourhealthcare needs. The following includes patient education materials and information regarding your injury/illness. Comment: FELECIA CARDENAS has been given the following list of follow-up instructions, medication list and patient education materials: Follow-up Instructions With: Address: When: CHRIS AGUILERA [address] [place] [id number] Business (1) In 6 days 08/26/2013 Comments: For recheck. Please call on Thursday to schedule follow up appointment with Dr. Aguilera. Discharge Diet Diet Type: Resume previous diet Discharge Instruction General Activity Limitations: Activity as tolerated Medications Medication/Strength How to Take Indications/Special Instructions/Comments/Notes for Patient Medication Changes/Routing loperamide (loperamide 2 mg oral capsule) 1 cap, Oral, every 4 hours as needed for Diarrhea x 7 day(s) New Routed to Printer medroxyPROGESTERone (Depo-Provera Contraceptive 150 mg/ml intramuscular suspension) 1 Milliliter, Intramuscular, every 90 days dysmenorrhea methocarbamol (methocarbamol 750 mg oral tablet) 1 Tablet(s), Oral, three times a day x 3 day(s) NewRouted to Printer oxyCODONE-acetaminophen (Percocet 5/325 oral tablet) 1 to 2 tablets, Oral, every 6 hours as needed for Pain x 5 day(s) No more than 4,000mg acetaminophen/24hrs New Routed to Printer propranolol (propranolol 20 mg oral tablet) See Instructions 1 tab(s) PO 2 hours prior to test taking sertraline (sertraline 50 mg oral tablet) 1 Tablet(s), Oral, once a day take 1/2 tab for 8 days thenwhole tab Stop Taking the Following Medications: Medication list as of 08-20-13 12:20 Attention: If you have any medications at home that are not on this list, DO NOT take them until youcontact your provider for clarification. Give a copy of your medication list to your primary care provider. Update your medication list any time medications or doses are changed and carry your medication list at all times in case of emergency. Comment: Electronically Signed By: HERNESTO ENGLISH MD Signed On:20-AUG-2013 11:29:41 Your Upcoming Appointments Date Time Location Reason Provider No Appointments found YUE Acosta SAMANTHA ANN , have received the attached patient education materials/instructions and have verbalized understanding: Patient Signature Date Time Care Provider Signature Date Time [id number] EXERCISES TO STRENGTHEN YOUR LOWER BACK Strong lower-back and abdominal muscles work together to support your spine. These exercises will help strengthen the muscles of the lower back. It is important that you begin exercising slowly and increase levels gradually. Always begin any exercise program with stretching. If you feel pain while doing any of these exercises, stop and talk to your doctor about a more specific exercise program that suits your condition better. LOW BACK STRETCH ?? Lie on your back with your knees bent and both feet on the ground. ?? Slowly raise your left knee to your chest as you flatten your lower back against the floor. Hold for 5 seconds. ?? Relax and repeat the exercise with your right knee. ?? Do 10 of these exercises for each leg. ?? Repeat hugging both knees to your chest at the same time. BUILDING LOWER BACK STRENGTH 1. Kneeling Lumbar Extension: Begin on your hands and knees. Simultaneously raise and straighten your right arm and left leg until they are parallel to the ground. Hold for 2 seconds and come back slowly to a starting position. Repeat with left arm and right leg, alternating 10 times. 2. Prone Lumbar Extension: Lie face down, arms extended overhead, palms on the floor. Simultaneouslyraise your right arm and left leg as high as comfortably possible. Hold for 10 seconds and slowly return to start. Repeat with left arm and right leg, alternating 10 times. Gradually build up to 20 times. (Advanced: Repeat this exercise raising both arms and both legs a few inches off the floor at thesame time. Hold for 5 seconds and release.) 3. Pelvic Tilt: Lie on the floor on your back with your knees bent at 90 degrees. Your feet should be flat on the floor. Inhale, exhale, then slowly contract your abdominal muscles bringing your navel toward your spine. Let your pelvis rock back until your lower back is flat on the floor. Hold for 10 seconds while breathing smoothly. Abdominal Crunch: Perform a Pelvic Tilt (above) flattening your lower back against the floor. Holding the tension in your abdominal muscles, take another breath and raise your shoulder blades off the ground (this is not a full sit- up). Keep your head in line with your body (dont bend your neck forward). Hold for 2 seconds, then slowly lower. ?? [id number] Paradise Pinedo, [address] [facility], [place] [address]. All rights reserved. This information is not intended as a substitute for professional medical care. Always follow your healthcare professional's instructions. [id number] BACK CARE TIPS These are things you can do to prevent a recurrence of acute back pain and to reduce symptoms from chronic back pain: ?? Maintain a healthy weight. If you are overweight, losing weight will help most types of back pain. ?? Exercise is an important part of recovery from most types of back pain. The back is supported by the muscles behind and in front of the spine. This means both the back muscles and the abdominal muscles must be strengthened to provide better support for your spine. ?? Swimming and brisk walking are good overall exercises to improve your fitness level. ?? Practice safe lifting methods (below). ?? Practice good posture when sitting, standing and walking. Avoid prolonged sitting. This puts morestress on the lower back than standing or walking. ?? Wear quality shoes with sufficient arch support. Foot and ankle alignment can affect back symptoms. Women should avoid high heels. ?? Therapeutic massage can help relieve acute and chronic back pain. ?? During the first two days after an acute injury or flare-up of chronic back pain, apply an ice pack to the painful area for 20 minutes every 2-4 hours. This will reduce swelling and pain. Heat (hot shower, hot bath, or heating pad) works well for muscle spasm. You can start with ice, then switch toheat after two days. Some patients feel best alternating ice and heat treatments. Use the one methodthat feels the best to you. ?? You may use acetaminophen (Tylenol) or ibuprofen (Motrin, Advil) to control pain, unless another medicine was prescribed. [NOTE: If you have chronic liver or kidney disease or ever had a stomach ulcer or GI bleeding, talk with your doctor before using these medicines.] LUMBAR STRETCH Here is a simple stretching exercise that will help relax muscle spasm and keep your back more limber. If exercise makes your back pain worse, dont do it. ?? Lie on your back with your knees bent and both feet on the ground. ?? Slowly raise your left knee to your chest as you flatten your lower back against the floor. Hold for 5 seconds. ?? Relax and repeat the exercise with your right knee. ?? Do 10 of these exercises for each leg. SAFE LIFTING METHOD ?? Dont bend over at the waist to lift an object off the floor. Instead, bend your knees and hips anai squat. ?? Keep your back and head upright. ?? Hold the object close to your body, directly in front of you. ?? ext?? Straighten your legs to lift the object. ?? Lower the object to the floor in the reverse fashion. ?? If you must slide something across the floor, push it. POSTURE TIPS SITTING Sit in chairs with straight backs or low-back support. Keep your knees a little higher than your hips. If necessary, use a low stool to prop your feet on, so your feet are resting on a solid surface. When driving, sit up straight. Adjust the seat forward so you are not leaning toward the steering wheel. A small pillow or rolled towel behind your lower back may help if you are driving long distances. STANDING When standing for long periods, shift most of your weight to one leg at a time. Alternate legs everyfew minutes. SLEEPING The best way to sleep is on your side with your knees bent. Put a low pillow under your head to support your neck in a neutral spine position. Avoid thick pillows that bend your neck to one side. Put apillow between your legs to further relax your lower back. If you sleep on your back, put pillows under your knees to support your legs in a slightly flexed position. Use a firm mattress. If your mattress sags, replace it, or use a 1/2-inch plywood board under the mattress to add support. FOLLOW UP with your doctor or as directed by our staff. RETURN PROMPTLY or contact your doctor if any of the following occur: ?? Pain becomes worse or spreads to your arms or legs ?? Weakness or numbness in one or both arms or legs ?? Loss of bowel or bladder control Numbness in the groin area ?? [id number] Paradise Pinedo, [address] [place] [address], [place] [address]. All rights reserved. This information is not intended as a substitute for professional medical care. Always follow your healthcare professional's instructions. This document has images extracted. Please consider using [employer] for all your patient education needs. Source: [facility] POWERCHART Document Id: [id number] Isabella Silverman R.N. - 08/20/2013 12:20 PM CDT Hospital Discharge Medication List [place] [id number] [facility] [address] [place] [address] Discharge Medication List Name: FELECIA CARDENAS Current Date: 08/20/2013 12:20:39 : 1995 12:00 AM [facility] Number: [id number] Patient Address: [address] [place] [phone] Patient Primary Care Provider: Name: CHRIS AGUILERA DO Discharge Diagnosis: Infection Urinary Tract Asymptomatic UTI; Pain Back NOS [facility] in [place] would like to thank you for allowing us to assist you with yourhealthcare needs. The following includes patient education materials and information regarding your injury/illness. Medications Medication/Strength How to Take Indications/Special Instructions/Comments/Notes for Patient Medication Changes/Routing loperamide (loperamide 2 mg oral capsule) 1 cap, Oral, every 4 hours as needed for Diarrhea x 7 day(s) New Routed to Printer medroxyPROGESTERone (Depo-Provera Contraceptive 150 mg/ml intramuscular suspension) 1 Milliliter, Intramuscular, every 90 days dysmenorrhea methocarbamol (methocarbamol 750 mg oral tablet) 1 Tablet(s), Oral, three times a day x 3 day(s) NewRouted to Printer oxyCODONE-acetaminophen (Percocet 5/325 oral tablet) 1 to 2 tablets, Oral, every 6 hours as needed for Pain x 5 day(s) No more than 4,000mg acetaminophen/24hrs New Routed to Printer propranolol (propranolol 20 mg oral tablet) See Instructions 1 tab(s) PO 2 hours prior to test taking sertraline (sertraline 50 mg oral tablet) 1 Tablet(s), Oral, once a day take 1/2 tab for 8 days thenwhole tab Stop Taking the Following Medications: Medication list as of 08-20-13 12:20 Attention: If you have any medications at home that are not on this list, DO NOT take them until youcontact your provider for clarification. Give a copy of your medication list to your primary care provider. Update your medication list any time medications or doses are changed and carry your medication list at all times in case of emergency. Comment: Electronically Signed By: HERNESTO ENGLISH MD Signed On:20-AUG-2013 11:29:41 Source: [facility] POWERCHART Document Id: [id number] Hernesto English M.D. - 08/20/2013 12:00 PM CDT [id number] DATE OF ADMISSION: 2013 DATE OF DISCHARGE: August 20, 2013 DISCHARGE SUMMARY PRIMARY CARE PHYSICIAN: Chris Aguilera D.O. DISCHARGE DIAGNOSIS: 1. Lumbago. 2. Uncomplicated urinary tract infection. 3. Positive D-dimers. OTHER DIAGNOSIS: 1. Anxiety. 2. Antibiotic-associated diarrhea. LABORATORY DATA AND RADIOLOGICAL DATA: CT urogram was performed which was negative for pyelonephritis. CT angio chest was performed which was essentially negative for pulmonary embolism. DVT scan was performed which was negative for DVT. The rest of the laboratory data was essentially within normal limits. UA shows positive trace esterase. D-dimer was high at the time of discharge. HISTORY OF PRESENTING ILLNESS: 1. 18 year-old female who essentially presented with a complaint of back pain who was essentially admitted in the ED with suspicion of possible pyelonephritis in the setting of back pain, positive CVA tenderness and dirty urine. Patient did have a CT urogram to rule out pyelonephritis as there was suspicion of pyelonephritis versus lumbago. Patient during the hospital stay, was also tachycardic, which is positive secondary to pain, hence a D-dimer was performed in the setting of low Ha score. D-dimer came back positive, hence it was decided the patient will get DVT scan, also order CT scan of the chest. Radiological data was essentially negative. Patient started a muscle relaxant yesterday to which she actually responded really well. Her pain has essentially reduced from 10 to 5, today she wasable to walk in front of me without any pain and problem. At this point in time, I would like to discharge the patient home and have patient primary care physician Dr. Chris Aguilera to followup. I do not think the patient needs any antibiotics in the setting of uncomplicated UTI. The patient already took 3 days of antibiotic and had some diarrhea for which C. diff was sent which was essentially negative at this point in time. The patient's urine culture and blood cultures are negative to date. I discussed with the patient and the patient's family, her management plan. I also told them the patient has been allergic to CIPROFLOXACIN as she had some drug reaction while she was here after getting first shot of CIPROFLOXACIN for which benadryl was prescribed. At this point in time, patient does not any rash and is okay to be discharged home. PHYSICAL EXAMINATION: VITAL SIGNS: The patient's vital signs are essentially stable. GLOVE EXAMINER: Grossly intact. CV: S1, S2. No murmur, rub or gallop. CHEST: Bilaterally clear to auscultation. GI: Soft, nontender, nondistended. Bowel sounds positive. EXTREMITY: Pulses palpable. Warm, perfused extremities. LABORATORY DATA: Laboratory data and radiologic data as mentioned above. FOLLOW-UP: 1. The patient is to follow up with the primary care physician in 1 week. 2. The patient is to follow with physical therapist in 2 to 4 weeks. PATIENT EDUCATION: The patient has been educated regarding back pain. Also will provide the patient for the back pain and some therapy exercises. She already follows with the therapist as an outpatient. I also told her that she needs to take a muscle relaxant. I also informed her regarding the use of Imodium as needed and how to use it. We also discussed about in detail regarding urinary tract infection and hot to prevent it. I also informed that she is allergic to CIPROFLOXACIN and she should not take any medication she canbe allergic to medications. DIET CONDITION: Stable. DISCHARGE DIET: Regular diet. Medications Medication/Strength How to Take Indications/Special Instructions/Comments/Notes for Patient Medication Changes/Routing loperamide (loperamide 2 mg oral capsule) 1 cap, Oral, every 4 hours as needed for Diarrhea x 7 day(s) New Routed to Printer medroxyPROGESTERone (Depo-Provera Contraceptive 150 mg/ml intramuscular suspension) 1 Milliliter, Intramuscular, every 90 days dysmenorrhea methocarbamol (methocarbamol 750 mg oral tablet) 1 Tablet(s), Oral, three times a day x 3 day(s) NewRouted to Printer oxyCODONE-acetaminophen (Percocet 5/325 oral tablet) 1 to 2 tablets, Oral, every 6 hours as needed for Pain x 5 day(s) No more than 4,000mg acetaminophen/24hrs New Routed to Printer propranolol (propranolol 20 mg oral tablet) See Instructions 1 tab(s) PO 2 hours prior to test taking sertraline (sertraline 50 mg oral tablet) 1 Tablet(s), Oral, once a day take 1/2 tab for 8 days thenwhole tab Stop Taking the Following Medications: Medication list as of 08-20-13 12:20 ADMINISTRATIVE BILLING: Total time spent 55 minutes, more than half of the time spent in coordination of care, answering the patient's questions, discussing the treatment and plan. Hernesto English M.D./pos cc: Chris Aguilera D.O. [place] [address] Electronically Signed By: HERNESTO ENGLISH MD On: 08/22/2013 01:53 PM Modified by and Electronically Signed by: HERNESTO ENGLISH MD On: 08/22/2013 01:53 PM Source: [facility] MHSDOLBEYNONRADSYS Document Id: [id number] Isabella Silverman REddi - 08/20/2013 11:45 AM CDT Discharge Summary Discharge Summary Entered On: 08/20/2013 11:46 CDT Performed On: 08/20/2013 11:45 CDT by ISABELLA SILVERMAN RN, DC Information Discharged to : Home with family care Current Home Treatments : None Home Equipment : None Professional Skilled Services : None Special Services and Community Resources : None Mode of Discharge : Wheelchair Discharge Transportation : Private vehicle Accompanied By : Nurse aide, Family Date/Time of Discharge : 08/20/2013 11:45 CDT ISABELLA SILVERMAN RN - 08/20/2013 11:45 CDT Education General Patient Education [employer] Topics : Activity limitations/expectations, Discharge instructions/Medication list, Importance of follow-up visits, Individual plan for pain management, When to call health care provider Individuals Taught : Patient Barriers to Learning : None evident Teaching Method : Explanation, Printed materials Teaching Evaluation : Verbalizes understanding ISABELLA SILVERMAN RN - 08/20/2013 11:45 CDT Valuables/Belongings Room Orientation/Facility Policy Reviewed : Yes Home Medication Disposition : None brought in with patient ISABELLA SILVERMAN RN - 08/20/2013 11:45 CDT [facility] Document Id: [id number] Spike Parikh R.N. - 2013 12:36 PM CDT ED Discharge Instructions [address] [address] Name: FELECIA CARDENAS Date of : 1995 12:00 AM Visit Date: 2013 9:20 AM [facility] Number: [id number] Address: [address] [place] [id number] Primary Care Provider: CHRIS AGUILERA DO IMPORTANT: [facility] in [place] would like to thank you for allowing us to assist you with your healthcare needs. The following includes patient education materials and information regarding your injury/illness. Chief Complaint: Abdominal pain; Flank pain; ABD PAIN Follow-Up Instructions: Patient Education Materials: ED Tests and Procedures: Order Status Culture Urine Ordered Lipase Level Completed Lactic Acid Completed Beta hCG Qualitative, Serum Completed Discharge Prescriptions & Home Medications: Medication/Strength How to Take Indications/Special Instructions/Comments/Notes for Patient Medication Changes/Routing ciprofloxacin (ciprofloxacin 500 mg oral tablet) 1 Tablet(s), Oral, two times a day x 7 day(s) medroxyPROGESTERone (Depo-Provera Contraceptive 150 mg/ml intramuscular suspension) 1 Milliliter, Intramuscular, every 90 days dysmenorrhea propranolol (propranolol 20 mg oral tablet) See Instructions 1 tab(s) PO 2 hours prior to test taking sertraline (sertraline 50 mg oral tablet) 1 Tablet(s), Oral, once a day take 1/2 tab for 8 days thenwhole tab Stop Taking the Following Medications: Medication list as of 08-18-13 12:36 Comment: Attention: If you have any medications at home not on this list, DO NOT take them until you contact your provider for clarification. Give a copy of your medication list to your primary care provider. Update your medication list any time medications or doses are changed and carry your medication list at all times in case of emergency. Medication Reconciliation: Reconciliation is a process of identifying the most accurate list of all medications a patient is taking - including name, dosage, frequency, and route - and using this list to provide to the patient information about how to take those medications. FELECIA CARDENAS or jeannette has reviewed the home medications you have listed with us. Review the following instructions: You have NOT received any prescriptions and you have told us you are not currently taking any home medications You have NOT received any prescriptions. You have been provided a discharge medications list and you may CONTINUE taking your medications as previously prescribed by your regular providers. You have received the listed prescriptions and BEGIN all listed prescriptions as directed. Since you have listed no home medications, please check with your family doctor if you are taking any other medications. You have received the listed prescriptions and BEGIN all listed prescriptions as directed. Youhave been provided a discharge medications list and you may CONTINUE all home medications as previously prescribed by your regular providers. You have received the listed prescriptions and BEGIN all listed prescriptions as directed. Youhave been provided a discharge medications list. The following CHANGES have been made to your medication list; Otherwise, CONTINUE all home medications as previously prescribed by your regular provider. IMPORTANT: We examined and treated you today on an emergency basis only. This was not a substitute for, or an effort to provide, complete medical care. In most cases, you must let your doctor check youagain. Tell your doctor about any new or lasting problems. We cannot recognize and treat all injuries or illnesses in one Emergency Department visit. If you had special tests, such as EKG's or X- rays, we will review them again within 24 hours. We will call you if there are any new suggestions. Please follow the instructions above carefully. If you are being transferred to another facility your followup plan of care will be determined by the receiving facility. If you are a patient that is being discharged from the Emergency Department after receiving narcotics or other medications that may impair your judgment you may be a risk to yourself or others if you operate a motor vehicle. We recommend that you arrange a ride home with a responsible alliance party. IYUE SAMANTHA ANN , or responsible alliance party have received this information and my questions havebeen answered. I have discussed any challenges I see with this plan with the nurse or physician. Patient Signature or Responsible Constitution Party/Relationship Date Time Provider Signature Date Time Medication Reconciliation: Reconciliation is a process of identifying the most accurate list of all medications a patient is taking - including name, dosage, frequency, and route - and using this list to provide to the patient information about how to take those medications. FELECIA CARDENAS or designee has reviewed the home medications you have listed with us. Review the following instructions: You have NOT received any prescriptions and you have told us you are not currently taking any home medications You have NOT received any prescriptions. You have been provided a discharge medications list and you may CONTINUE taking your medications as previously prescribed by your regular providers. You have received the listed prescriptions and BEGIN all listed prescriptions as directed. Since you have listed no home medications, please check with your family doctor if you are taking any other medications. You have received the listed prescriptions and BEGIN all listed prescriptions as directed. Youhave been provided a discharge medications list and you may CONTINUE all home medications as previously prescribed by your regular providers. You have received the listed prescriptions and BEGIN all listed prescriptions as directed. Youhave been provided a discharge medications list. The following CHANGES have been made to your medication list; Otherwise, CONTINUE all home medications as previously prescribed by your regular provider. IMPORTANT: We examined and treated you today on an emergency basis only. This was not a substitute for, or an effort to provide, complete medical care. In most cases, you must let your doctor check youagain. Tell your doctor about any new or lasting problems. We cannot recognize and treat all injuries or illnesses in one Emergency Department visit. If you had special tests, such as EKG's or X- rays, we will review them again within 24 hours. We will call you if there are any new suggestions. Please follow the instructions above carefully. If you are being transferred to another facility your followup plan of care will be determined by the receiving facility. If you are a patient that is being discharged from the Emergency Department after receiving narcotics or other medications that may impair your judgment you may be a risk to yourself or others if you operate a motor vehicle. We recommend that you arrange a ride home with a responsible alliance party. YUE Acosta SAMANTHA ANN , or responsible alliance party have received this information and my questions havebeen answered. I have discussed any challenges I see with this plan with the nurse or physician. Patient Signature or Responsible Constitution Party/Relationship Date Time Provider Signature Date Time Source: [facility] Document Id: [id number] Spike Parikh R.N. - 2013 12:36 PM CDT ED Depart Summary [facility] Emergency Department Clinical Discharge Summary PERSON INFORMATION Name FELECIA CARDENAS Age 18 Years 1995 12:00 AM Sex Female Language Serbian PCP CHRIS AGUILERA DO Marital Status Single Visit Id Visit Reason Abdominal pain; Flank pain; ABD PAIN Specialty Enc Type Emergency Med Service Emergency Medicine Referred by Neal LOPEZ ED Discharge Tracking Id [id number] Checkout 2013 12:36 PM Checkin 2013 9:20 AM Acuity 3 -Urgent Dispo Type Admitted as Inpatient to this Hospital Arrival 2013 9:20 AM Reg Status Complete LOS 000 03:16 Address: [address] [place] [address] [id number] Comment: PROVIDER INFORMATION Provider Role Provider Contact Time SPIKE GASPAR MD ED Provider 08/18/13 09:32 SPKIE PARIKH BODY SPECIALIST Nurse 08/18/13 09:33 DIAGNOSIS Comment: PATIENT EDUCATION INFORMATION Instructions: [facility]: [id number] documented in this encounter Progress Notes Jimbo Gallegos P.T. - 08/19/2013 12:51 PM CDT Received the order and saw the patient in her room. Her back pain appears to be non-mechanical. No inpatient physical therapy needed at this time. Will follow her until DC. Electronically Signed By: JIMBO GALLEGOS On: 08/19/2013 12:52 PM Source: [facility] Document Id: [id number] Hernesto English M.D. - 08/19/2013 12:00 AM CDT [id number] PRIMARY CARE PHYSICIAN: Chris Aguilera D.O. SUBJECTIVE: Patient was seen and examined this morning. Patient denies any chest pain, chest pressure, but does still have some back pain. Patient had a CT urogram performed yesterday, which was essentially negative. UA also looked a little contaminated, so at this point in time we will wait for the urine culture, if comes back negative then we will discontinue all antibiotics. She told me that she had 1 episode of diarrhea. We are going to send the stool for C. diff. I also told her that possibly this back pain may be secondary to muscle spasm. She does not have any red flag signs including numbness, tingling, radiation of pain. No saddle anesthesia. No urinary or bowel incontinence. I think thispain is possible secondary to a pulled muscle/muscle spasm/lumbago. PHYSICAL EXAMINATION: VITAL SIGNS: Patient's vital signs are essentially stable at this point in time. A little tachycardic, running between 90s to 110. GLOVE EXAMINER: Grossly intact. CVS: S1, plus S2. No murmur, rub or gallop. CHEST: Bilaterally clear to auscultation. GI: Soft, nontender, nondistended. Bowel sounds positive. EXTREMITIES: Pulses palpable. LOCAL EXAMINATION: Patient does have some tenderness in the back. LAB DATA: Lab shows CBC and chemistry essentially within normal limits. IMPRESSION/REPORT/PLAN 1. Tachycardia with slight hypoxia. Will add on D-dimers and will follow up. CT urogram was already negative. 2. Dirty urinalysis, urinary tract infection. Essentially negative for pyelonephritis. Continue withantibiotics maybe for next 3 days. 3. Diarrhea. We will send for Clostridium difficile. Possible viral diarrhea. No need to scan at this point in time. 4. Muscle pain on the back/back pain. Started the patient on muscle relaxant. Patient is already on good pain medications. I also requested patient to walk around. We will also have physical therapy come and talk to the patient for possible outpatient physiotherapy in the setting of low back pain. 5. Deep venous thrombosis prophylaxis with heparin. Total time spent 20 minutes, more than half the time spent in coordination of care. Hernesto English M.D./pos cc: Chris Aguilera D.O. [facility] in [address] [place] [address] Electronically Signed By: HERNESTO ENGLISH MD On: 08/19/2013 01:49 PM Source: [facility] Document Id: [id number] documented in this encounter H&P Notes Hernesto English M.D. - 2013 12:59 PM CDT [id number] PRIMARY CARE PHYSICIAN: Chris Aguilera D.O. CHIEF COMPLAINT/REASON FOR VISIT 1. Back pain. 2. UTI. HISTORY OF PRESENT ILLNESS A 38-year-old female who essentially presented with the complaint of back pain. It started yesterdayfor which she went initially to a chiropractor, but did not get any relief. She told me that she hadsome urinary symptoms that she described as increased frequency, bloody micturition and dark-coloredurine, which started about 4 days ago. She denies fever, but does complain of some nausea. No vomitin g. No hematuria. No bowel complaint, but did have 1 episode of diarrhea this morning. Patient is currently not sexually active at this point in time. Last sexually active about a year ago and she always had protective sex. At the time of interview, she started to have some itchiness, which is probablysecondary to ciprofloxacin. It sounds like she is allergic to CIPRO. PAST MEDICAL/SURGICAL HISTORY MEDICAL: 1. Anxiety. 2. Sphincter of Oddi dysfunction. 3. Abdominal pain. SURGICAL: 1. Cholecystectomy. 2. Appendectomy. 3. Knee surgery. ALLERGIES Allergic to CIPROFLOXACIN with hives. MEDICATIONS Please see medication reconciliation list for details. FAMILY HISTORY Does have a family history of endometriosis; otherwise essentially stable. SOCIAL HISTORY Denies drug, alcohol smoking. No sexually active at this point in time. VITAL SIGNS Vital signs are essentially stable. She is a little tachy to 107 per minute. PHYSICAL EXAMINATION GLOVE EXAMINER: Grossly negative. CV: S1, plus S2. No murmur, rub or gallop. CHEST: Bilaterally clear to auscultation. GIT: Soft, nontender, nondistended. Bowel sounds positive. EXTREMITIES: Pulses palpable. Warm perfused extremities. Labs have been reviewed. At this point in time the labs are essentially stable with minimal trace esterase; urine esterase is positive. No urine culture was sent, which we had already talked to [facility]. We get the urine culture from there. IMPRESSION/REPORT/PLAN 1. Back pain. Could be secondary to pyelonephritis/secondary to urinary tract infection (UTI) thoughlook unlikely and possible lumbago or muscle sprain. At this point in time, we will continue with intravenous (IV) ceftriaxone. We will discontinue (DC) ciprofloxacin as the patient did have some allergic reaction to that. We will also initiate UTI protocol. No need to send urine for chlamydia and gonorrhea in a patient who is not sexually active at this point in time. No vaginal discharge. 2. Other medical problems. Continue with home medications. 3. Back pain/pain management. Start the patient on Percocet and also on hydromorphone and Dilaudid for the pain. 4. Start the patient on Benadryl as needed in the setting of drug allergy. No need for steroids or epi at this time 4. Deep venous thrombosis (DVT) prophylaxis with Lovenox. Hernesto English M.D./pos cc: Chris Aguilera D.O. [place] [address] Electronically Signed By: HERNESTO ENGLISH MD On: 08/19/2013 01:43 PM Modified by and Electronically Signed by: HERNESTO ENGLISH MD On: 08/19/2013 01:43 PM Source: [facility] Document Id: [id number] documented in this encounter Procedure Notes Isabella Silverman R.N. - 08/20/2013 11:23 AM CDT Peripheral IV Peripheral IV Entered On: 08/20/2013 11:23 CDT Performed On: 08/20/2013 11:23 CDT by ISABELLA SILVERMAN RN Peripheral IV Peripheral IV Assess/Intervention Grid Peripheral IV #1 Peripheral IV #2 IV Activity : Discontinue, Assessment Discontinue, Assessment Number of Attempts : 1 2 Date of Insertion : 2013 CDT 08/19/2013 CDT IV Site : Hand Antecubital Laterality : Left Left Catheter Size : 20 18 Catheter Type : Over the needle Over the needle Site Condition : No complications Infiltration Score : 0 Phlebitis Score : 0 Primary Tubing Changed : 2013 CDT Secondary Tubing Changed : 2013 CDT ISABELLA SILVERMAN RN - 08/20/2013 11:23 CDT ISABELLA SILVERMAN RN - 08/20/2013 11:23 CDT Source: [employer] Document Id: [id number] CDT!24 Markos Terry R.N. - 08/19/2013 5:15 PM CDT Peripheral IV Peripheral IV Entered On: 08/19/2013 23:01 CDT Performed On: 08/19/2013 17:15 CDT by MARKOS TERRY RN Peripheral IV Peripheral IV Assess/Intervention Grid Peripheral IV #1 Peripheral IV #2 IV Activity : Assessment Discontinue, Assessment Number of Attempts : 1 2 Date of Insertion : 2013 CDT 08/19/2013 CDT IV Site : Hand Antecubital Laterality : Left Left Catheter Size : 20 18 Catheter Type : Over the needle Over the needle Site Condition : No complications Drainage Description : None Infiltration Score : 0 Phlebitis Score : 0 Primary Tubing Changed : 2013 CDT Secondary Tubing Changed : 2013 CDT Dressing/ Activity : Gauze, Other: MARKOS Alas RN - 08/19/2013 23:00 CDT MARKOS TERRY RN - 08/19/2013 23:00 CDT Source: [employer] Document Id: [id number] CDT!26 Isabella Silverman R.N. - 08/19/2013 2:37 PM CDT Peripheral IV Peripheral IV Entered On: 08/19/2013 14:37 CDT Performed On: 08/19/2013 14:37 CDT by ISABELLA SILVERMAN RN Peripheral IV Peripheral IV Assess/Intervention Grid Peripheral IV #1 Peripheral IV #2 IV Activity : Assessment Start, Assessment, Saline lock Number of Attempts : 1 2 Date of Insertion : 2013 CDT 08/19/2013 CDT IV Site : Hand Antecubital Laterality : Left Left Catheter Size : 20 18 Catheter Type : Over the needle Over the needle Site Condition : No complications Infiltration Score : 0 Phlebitis Score : 0 Primary Tubing Changed : 2013 CDT Secondary Tubing Changed : 2013 CDT Flow/ Patency : No complications ISABELLA SILVERMAN RN - 08/19/2013 14:37 CDT ISABELLA SILVERMAN RN - 08/19/2013 14:37 CDT Source: [employer] Document Id: [id number] CDT!25 documented in this encounter Nursing Notes Isabella Silverman R.N. - 08/20/2013 9:31 AM CDT PRN Response PRN Response Entered On: 08/20/2013 9:31 CDT Performed On: 08/20/2013 9:31 CDT by ISABELLA SILVERMAN RN PRN Medication Effectiveness Evaluation PRN Medication Effective : Yes Post Medication Pain Assessment : 5 ISABELLA SILVERMAN RN - 08/20/2013 9:31 CDT Source: [employer] Document Id: [id number] CDT!4 Caitlin Matta R.N. - 08/20/2013 2:00 AM CDT PRN Response PRN Response Entered On: 08/20/2013 3:34 CDT Performed On: 08/20/2013 2:00 CDT by CAITLIN MATTA RN PRN Medication Effectiveness Evaluation PRN Medication Effective : Yes CAITLIN MATTA RN - 08/20/2013 3:34 CDT [place] Agitation Sedation Scale (RASS) : Alert and calm RASS Score : 0 CAITLIN MATTA RN - 08/20/2013 3:34 CDT Source: [employer] Document Id: [id number] CDT!6 Caitlin Matta R.N. - 08/20/2013 12:00 AM CDT PRN Response PRN Response Entered On: 08/20/2013 0:42 CDT Performed On: 08/20/2013 0:00 CDT by CAITLIN MATTA RN PRN Medication Effectiveness Evaluation PRN Medication Effective : Yes CAITLIN MATTA RN - 08/20/2013 0:42 CDT Source: [employer] Document Id: [id number] CDT!3 Caitlin Matta R.N. - 08/20/2013 12:00 AM CDT PRN Response PRN Response Entered On: 08/20/2013 0:42 CDT Performed On: 08/20/2013 0:00 CDT by CAITLIN MATTA RN PRN Medication Effectiveness Evaluation PRN Medication Effective : Yes CAITLIN MATTA RN - 08/20/2013 0:42 CDT Source: [employer] Document Id: [id number] CDT!3 Markos Terry R.N. - 08/19/2013 8:25 PM CDT PRN Response Document Has Been Updated PRN Response Entered On: 08/19/2013 21:35 CDT Performed On: 08/19/2013 20:25 CDT by MARKOS TERRY RN PRN Medication Effectiveness Evaluation PRN Medication Effective : Yes Post Medication Pain Assessment : 5 MARKOS TERRY RN - 08/19/2013 21:35 CDT Source: [employer] Document Id: [id number] CDT!4 Markos Terry R.N. - 08/19/2013 6:09 PM CDT PRN Response PRN Response Entered On: 08/19/2013 19:12 CDT Performed On: 08/19/2013 18:09 CDT by MARKOS TERRY RN PRN Medication Effectiveness Evaluation PRN Medication Effective : Yes Post Medication Pain Assessment : 6 MARKOS TERRY RN - 08/19/2013 19:12 CDT Source: [employer] Document Id: [id number] CDT!4 Markos Terry R.N. - 08/19/2013 3:52 PM CDT PRN Response PRN Response Entered On: 08/19/2013 15:52 CDT Performed On: 08/19/2013 15:52 CDT by MARKOS TERRY RN PRN Medication Effectiveness Evaluation PRN Medication Effective : Yes Post Medication Pain Assessment : 5 MARKOS TERRY RN - 08/19/2013 15:52 CDT Source: [employer] Document Id: [id number] CDT!4 Isabella Silverman R.N. - 08/19/2013 11:47 AM CDT PRN Response PRN Response Entered On: 08/19/2013 12:45 CDT Performed On: 08/19/2013 11:47 CDT by ISABELLA SILVERMAN RN PRN Medication Effectiveness Evaluation PRN Medication Effective : Yes Post Medication Pain Assessment : 5 ISABELLA SILVERMAN RN - 08/19/2013 12:45 CDT Source: [employer] Document Id: [id number] CDT!4 Isabella Silverman R.N. - 08/19/2013 9:39 AM CDT PRN Response PRN Response Entered On: 08/19/2013 12:45 CDT Performed On: 08/19/2013 9:39 CDT by ISABELLA SILVERMAN RN PRN Medication Effectiveness Evaluation PRN Medication Effective : No ISABELLA SILVERMAN RN - 08/19/2013 12:45 CDT Source: [employer] Document Id: [id number] CDT!3 Isabella Silverman R.N. - 08/19/2013 9:39 AM CDT PRN Response PRN Response Entered On: 08/19/2013 12:46 CDT Performed On: 08/19/2013 9:39 CDT by ISABELLA SILVERMAN RN PRN Medication Effectiveness Evaluation PRN Medication Effective : Yes ISABELLA SILVERMAN RN - 08/19/2013 12:46 CDT Source: [employer] Document Id: [id number] CDT!3 Isabella Silverman R.N. - 08/19/2013 8:26 AM CDT PRN Response PRN Response Entered On: 08/19/2013 8:27 CDT Performed On: 08/19/2013 8:26 CDT by ISABELLA SILVERMAN RN PRN Medication Effectiveness Evaluation PRN Medication Effective : Yes Post Medication Pain Assessment : 2 ISABELLA SILVERMAN RN - 08/19/2013 8:26 CDT Source: [employer] Document Id: [id number] CDT!4 Caitlin Matta R.N. - 08/19/2013 4:30 AM CDT PRN Response PRN Response Entered On: 08/19/2013 6:40 CDT Performed On: 08/19/2013 4:30 CDT by CAITLIN MATTA RN PRN Medication Effectiveness Evaluation PRN Medication Effective : Yes CAITLIN MATTA RN - 08/19/2013 6:40 CDT Source: [employer] Document Id: [id number] CDT!3 Caitlin Matta R.N. - 2013 11:30 PM CDT PRN Response PRN Response Entered On: 08/19/2013 0:10 CDT Performed On: 2013 23:30 CDT by CAITLIN MATTA RN PRN Medication Effectiveness Evaluation PRN Medication Effective : Yes CAITLIN MATTA RN - 08/19/2013 0:10 CDT Source: [employer] Document Id: [id number] CDT!3 Caitlin Matta R.N. - 2013 11:30 PM CDT PRN Response PRN Response Entered On: 08/19/2013 0:11 CDT Performed On: 2013 23:30 CDT by CAITLIN MATTA RN PRN Medication Effectiveness Evaluation PRN Medication Effective : Yes Post Medication Pain Assessment : 6 CAITLIN MATTA RN - 08/19/2013 0:10 CDT Knox Knox Agitation Sedation Scale (RASS) : Alert and calm RASS Score : 0 CAITLIN MATTA RN - 08/19/2013 0:10 CDT Source: [employer] Document Id: [id number] CDT!7 Markos Terry R.N. - 2013 7:54 PM CDT PRN Response PRN Response Entered On: 2013 19:54 CDT Performed On: 2013 19:54 CDT by MARKOS TERRY RN PRN Medication Effectiveness Evaluation PRN Medication Effective : Yes MARKOS TERRY RN - 2013 19:54 CDT Source: [employer] Document Id: [id number] CDT!3 Markos Terry R.N. - 2013 5:10 PM CDT PRN Response PRN Response Entered On: 2013 17:36 CDT Performed On: 2013 17:10 CDT by MARKOS TERRY RN PRN Medication Effectiveness Evaluation PRN Medication Effective : Yes Post Medication Pain Assessment : 6 MARKOS TERRY RN - 2013 17:35 CDT Source: [employer] Document Id: [id number] CDT!4 Markos Terry R.N. - 2013 4:03 PM CDT PRN Response PRN Response Entered On: 2013 16:03 CDT Performed On: 2013 16:03 CDT by MARKOS TERRY RN PRN Medication Effectiveness Evaluation PRN Medication Effective : Yes MARKOS TERRY RN - 2013 16:03 CDT Source: [employer] Document Id: [id number] CDT!3 Kandace Montoya R.N. - 2013 1:12 PM CDT Pneumonia Immunization Assessment Pneumonia Immunization Assessment Entered On: 2013 13:12 CDT Performed On: 2013 13:12 CDT by KANDACE MONTOYA RN Pneumonia Protocol Pneumococcal Vaccine Exclusions : Patient has none of the below exclusions Pneumococcal Vaccine Age Group : Age 5 to 64 Pneumococcal Criteria 5 to 64 : Patient has none of the below criteria, vaccine is not indicated Pneumococcal Vaccine Candidate : No - Patient does not meet the criteria KANDACE MONTOYA RN - 2013 13:12 CDT Source: [employer] Document Id: [id number] CDT!6 Kandace Montoya R.N. - 2013 1:01 PM CDT Influenza Immunization Asmt Influenza Immunization Asmt Entered On: 2013 13:01 CDT Performed On: 2013 13:01 CDT by KANDACE MONTOYA RN Influenza Protocol Influenza Vaccine Exclusions : Previously immunized this flu season KANDACE MONTOYA RN - 2013 13:01 CDT Source: [employer] Document Id: [id number] CDT!3 documented in this encounter ED Notes Spike Parikh R.N. - 2013 12:33 PM CDT ED Pain Assessment ED Pain Assessment Entered On: 2013 12:33 CDT Performed On: 2013 12:33 CDT by SPIKE PARIKH RN Pain Assessment Pain Symptoms : Yes SPIKE PARIKH RN - 2013 12:33 CDT Source: [employer] Document Id: [id number] CDT!3 Spike Parikh R.N. - 2013 12:32 PM CDT ED Disposition Summary ED Disposition Summary Entered On: 2013 12:33 CDT Performed On: 2013 12:32 CDT by SPIKE PARIKH RN ED Disposition Summary Accompanied By : Mother Mode of Discharge : Stretcher Nurse Receiving Report : [id number] Date/Time Nurse Received Report : 2013 12:30 CDT Transporter : Tech Discharge From ED With : IV fluids/drips infusing Printed Discharge Instructions Given to Patient : No Reason Discharge Instructions Not Given : admitted to hospital SPIEK PARIKH RN - 2013 12:32 CDT Source: [employer] Document Id: [id number] CDT!10 Spike Parikh R.N. - 2013 12:13 PM CDT ED Nurse Reassess ED Nurse Reassess Entered On: 2013 12:14 CDT Performed On: 2013 12:13 CDT by SPIKE PARIKH RN Pain Assessment Pain Symptoms : Yes SPIKE PARIKH RN - 2013 12:13 CDT Pain Pain Assessment Grid Pain 1 Pain 2 Location : Flank Abdomen Intensity : 6 6 SPIKE PARIKH RN - 2013 12:13 CDT SPIKE PARIKH RN - 2013 12:13 CDT Resp Reassess Respiratory Patient Stated Symptoms : None Distress : None Airway : Patent Respirations : Unlabored SPIKE PARIKH RN - 2013 12:13 CDT CV Reassess CV Patient Stated Symptoms : None Skin Color : Normal for ethnicity Skin Description : Dry Skin Temperature : Warm SPIKE PARIKH RN - 2013 12:13 CDT Neuro Reassess Last Well Time Known : Not applicable Orientation : Oriented x 3 Characteristics of Speech : Clear Level of Consciousness : Alert SPIKE PARIKH RN - 2013 12:13 CDT GI Reassess GI Patient Stated Symptoms : Abdominal pain, Other: SPIKE PARIKH RN - 2013 12:13 CDT /OB Reassess Patient Stated Symptoms : Other: bilat flank pain SPIKE PARIKH RN - 2013 12:13 CDT Source: [employer] Document Id: [id number] CDT!30 Spike Parikh, RSebastianN. - 2013 11:00 AM CDT ED Nurse Reassess ED Nurse Reassess Entered On: 2013 11:15 CDT Performed On: 2013 11:00 CDT by SPIKE PARIKH RN Pain Assessment Pain Symptoms : Yes SPIKE PARIKH RN - 2013 11:13 CDT Pain Pain Assessment Grid Pain 1 Pain 2 Location : Flank Abdomen Laterality : Bilateral Other: mid, upper Intensity : 8 SPIKE PARIKH RN - 2013 11:13 CDT SPIKE PARIKH RN - 2013 11:13 CDT Resp Reassess Respiratory Patient Stated Symptoms : None Distress : None Airway : Patent Respirations : Unlabored SPIKE PARIKH RN - 2013 11:13 CDT CV Reassess CV Patient Stated Symptoms : None Skin Color : Normal for ethnicity Skin Description : Dry Skin Temperature : Warm SPIKE PARIKH RN - 2013 11:13 CDT Neuro Reassess Last Well Time Known : Not applicable Orientation : Oriented x 3 Characteristics of Speech : Clear Level of Consciousness : Alert SPIKE PARIKH RN - 2013 11:13 CDT GI Reassess GI Patient Stated Symptoms : Other: pt states nausea gone, flank and abdominal pain decreased some, remedicated as ordered, given saltine crackers and ice chips as requested, has not yet voided for urine cx. SPIKE PARIKH RN - 2013 11:13 CDT Source: [facility] [employer] Document Id: [id number] CDT!29 Spike Parikh, R.N. - 2013 10:16 AM CDT ED Primary Assessment Document Has Been Updated ED Primary Assessment Entered On: 2013 10:28 CDT Performed On: 2013 10:16 CDT by SPIKE PARIKH RN Reason For Visit (As Of: 2013 10:28:06 CDT) Problems(Active) Abdominal pain - Unspecified site (ICD-9-CM :789.00 ) Name of Problem: Abdominal pain - Unspecified site ; Recorder: CHRIS AGUILERA DO; Confirmation: Confirmed ; Classification: Medical ; Code: 789.00 ; Contributor System: [employer] ; Last Updated: 04/15/2010 16:07 COMPUTER TECHNICAL SUPPORT SPECIALIST ; Life Cycle Date: 04/15/2010; Life Cycle Status: Active ; Responsible Provider: CHRIS AGUILERA DO; Vocabulary: ICD-9-CM Dysmenorrhea (ICD-9-CM :625.3 ) Name of Problem: Dysmenorrhea ; Onset Date: 07/01/2010 ; Recorder: CHRIS AGUILERA DO; Confirmation: Confirmed ; Classification: Medical ; Code: 625.3 ; Last Updated: 07/01/2010 14:23 COMPUTER TECHNICAL SUPPORT SPECIALIST ; Life Cycle Status: Active ; Responsible Provider: CHRIS AGUILERA DO; Vocabular y: ICD-9-CM Elevated Liver Enzymes (ICD-9-CM :794.8 ) Name of Problem: Elevated Liver Enzymes ; Recorder: CHRIS AGUILERA DO; Confirmation: Confirmed ; Classification: Medical ; Code: 794.8 ; Contributor System: [employer] ; Last Updated: 04/15/2010 16:08 COMPUTER TECHNICAL SUPPORT SPECIALIST ; Life Cycle Date: 04/15/2010 ; Life Cycle Status: Active ; Responsible Provider: CHRIS AGUILERA DO; Vocabulary: ICD-9-CM Other Specified Counseling (ICD-9-CM :V65.49 ) Name of Problem: Other Specified Counseling ; Recorder: MADISON BROWN RN; Confirmation: Confirmed ; Classification: Nursing ; Code: V65.49 ;Contributor System: [employer] ; Last Updated: 07/24/2010 15:13 COMPUTER TECHNICAL SUPPORT SPECIALIST ; Life Cycle Date: 07/24/2010 ; Life Cycle Status: Active ; Responsible Provider: MADISON BROWN RN; Vocabulary: ICD-9-CM Spasm of Sphincter of Oddi (ICD-9-CM :576.5 ) Name of Problem: Spasm of Sphincter of Oddi ; Onset Date: 03/04/2011 ; Recorder: CHRIS AGUILERA DO; Confirmation: Confirmed ; Classification: Medical ; Code: 576.5 ; Last Updated: 04/09/2011 8:28 COMPUTER TECHNICAL SUPPORT SPECIALIST ; Life Cycle Status: Active ; Responsible Provider: CHRIS COX DO; Vocabulary: ICD-9-CM Diagnoses(Active) Abdominal pain Date: 2013 ; Diagnosis Type: Reason For Visit ; Confirmation: Complaint of ; Clinical Dx: Abdominal pain ; Classification: Medical ; Clinical Service: Emergency medicine ; Code: PNED ; Probability: 0 ; Diagnosis Code: [id number] Flank pain Date: 2013 ; Diagnosis Type: Reason For Visit ; Confirmation: Complaint of ; Clinical Dx: Flank pain ; Classification: Medical ; Clinical Service: Emergency medicine ; Code: PNED ; Probability: 0 ; Diagnosis Code: [id number] Triage Chief Complaint Description : referred from clinic for further treatment and eval. pt has hx of waqas and appy in 2009 and sphincter of oddi stented in 2010. now ill with bilat flank pain, urinary frequency and burning, fever x 2 days. at 0600 this am, has vomiting episode and (Comment: develops upper abd pain. [TOM SPIKE Bharat RN - 2013 10:16 CDT] ) Information Given By : Patient Accompanied By : Mother Mode of Arrival ED : Ambulatory Track : Medical Languages : Serbian GCS Assessed : Yes Treatments Prior to Arrival : None TOM SPIKE Bharat TOMLINSON - 2013 10:16 CDT Tarun Coma Eye Opening Response Tarun : Spontaneously Best Verbal Response Tarun : Oriented Best Motor Response Tarun : Obeys simple commands Woodbine Coma Score : 15 SHYAMSPIKE ALLEN Bharat TOMLINSON - 2013 10:16 CDT Pain Assessment Pain Symptoms : Yes TOM SPIKE Nicholson DAVI - 2013 10:16 CDT Pain Pain Assessment Grid Pain 1 Pain 2 Location : Flank Abdomen Laterality : Bilateral Bilateral Intensity : 10 9 TOM SPIKE Bharat TOMLINSON - 2013 10:16 CDT SPIKE PARIKH RN - 2013 10:16 CDT Respiratory Airway : Patent Respirations : Unlabored Respiratory Pattern : Regular Respiratory Detailed Assessment : Yes TOM SPIKE Bharat TOMLINSON - 2013 10:16 CDT Resp Detailed Respiratory Patient Stated Symptoms : None Cough : None SPIKE PARIKH RN - 2013 10:16 CDT Breath Sounds Assessment Grid BUL : Clear BLL : Clear SPIKE PARIKH RN - 2013 10:16 CDT Cardiovascular Heart Rhythm : Regular Skin Color : Normal for ethnicity Skin Description : Dry Skin Temperature : Warm Cardiovascular Detailed Assessment : Yes SPIKE PARIKH RN - 2013 10:16 CDT CV Detailed CV Patient Stated Symptoms : None SPIKE PARIKH RN - 2013 10:16 CDT Neurological Last Well Time Known : Not applicable Level of Consciousness : Alert Orientation : Oriented x 3 Characteristics of Speech : Clear SPIKE PARIKH RN - 2013 10:16 CDT ED Psychosocial Affect/Behavior : Calm Domestic Abuse Concerns : None SPIKE PARIKH RN - 2013 10:16 CDT Gastrointestinal Nutrition ED : Adequate GI Detailed Assessment : Yes SPIKE PARIKH RN - 2013 10:16 CDT GI Detailed GI Patient Stated Symptoms : Abdominal pain, Diarrhea, Nausea, Vomiting Frequency of Diarrhea : x 1 Frequency of Vomiting : x 1 Bowel Movement Last Date : 2013 CDT Stool Color : Brown Stool Description : Loose Abdomen Palpation : Soft, Tender Tenderness : Other: mid upper SPIKE PARIKH RN - 2013 10:16 CDT /OB Assessment Patient Stated Symptoms : Burning, Frequency Contraception Used : Yes Contraception Type : control injections Status : Patient denies SPIKE PARIKH RN - 2013 10:16 CDT Musculoskeletal Fall Prevention Education Provided : Yes KAMLESHFAROOQSPKIE ALLEN RN - 2013 10:16 CDT Social Habits Tobacco Use/Currently Using : No Smoking Status : Never smoker SPIKE PARIKH RN - 2013 10:16 CDT Tobacco Use Grid Last Use : never SPIKE PARIKH RN - 2013 10:16 CDT Recreational Drug Use Grid Drug Use : None SPIKE PARIKH RN - 2013 10:16 CDT Peripheral IV Peripheral IV Assess/Intervention Grid Peripheral IV #1 IV Activity : Start Number of Attempts : 1 Date of Insertion : 2013 CDT IV Site : Hand Catheter Size : 20 Catheter Type : Over the needle KAMLESHCHENCHOSPIKE RN - 2013 10:16 CDT Source: [facility] Document Id: [id number] CDT!91 Spike Gaspar M.D. - 2013 9:58 AM CDT Flank pain Patient: FELECIA CARDENAS Age: 18 years Sex: Female : 1995 Author: SPIKE GASPAR MD Attachments: None Basic Information Time seen: Immediately upon arrival. History source: Patient. Arrival mode: Private vehicle. History limitation: None. Additional information: Chief Complaint from Nursing Triage Note : Chief Complaint Description 2013 9:30 CDT Chief Complaint Description Felecia is here on her birthday. She has been sick for the last two days with bilateral flank pain and odor to her urine,[place] this am/labs and ua/ referred here re hx surgery of stent in sphyncter of guanaco 2010/ gb/appy 2009 . History of Present Illness The patient presents with flank pain. The onset was 2 days ago. The course/duration of symptoms is constant. The character of symptoms is achy. The degree at onset was minimal. The Location of pain at onset was bilateral, lower and flank. The degree at present is severe. The Location of pain at present is flank. Radiating pain: abdomen. The exacerbating factor is none. The relieving factor is none. Therapy today: doctor's office visit. Risk factors consist of none. Associated symptoms: nausea, back pain and fever. 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 Review of Systems Constitutional symptoms: Negative except as documented in HPI. Skin symptoms: Negative except as documented in HPI. Eye symptoms: Negative except as documented in HPI. ENMT symptoms: Negative except as documented in HPI. Respiratory symptoms: Negative except as documented in HPI. Cardiovascular symptoms: Negative except as documented in HPI. Gastrointestinal symptoms: Negative except as documented in HPI. Genitourinary symptoms: Negative except as documented in HPI. Musculoskeletal symptoms: Negative except as documented in HPI. Neurologic symptoms: Negative except as documented in HPI. Psychiatric symptoms: Negative except as documented in HPI. Endocrine symptoms: Negative except as documented in HPI. Hematologic/Lymphatic symptoms: Negative except as documented in HPI. Allergy/immunologic symptoms: Negative except as documented in HPI. Additional review of systems information: All other systems reviewed and otherwise negative. Health Status Allergies: Allergic Reactions (Selected) NKA. Past Medical/ Family/ Social History Medical history: No active or resolved past medical history items have been selected or recorded.. Surgical history: Culture, chlamydia, any source ([id number]) on 06/16/2011 at 15 Years. Appendectomy ([id number]). Cholecystectomy ([id number]).. Family history: No family history items have been selected or recorded.. Physical Examination Vital Signs: Vital Signs 2013 9:30 CDT Temperature Core 37.4 DegC Peripheral Pulse Rate 120 /min HI Respiratory Rate 16 /min SpO2 96 % Systolic Blood Pressure 137 mmHg Diastolic Blood Pressure 94 mmHg >HHI Mean Arterial Pressure 108 mmHg 2013 8:09 CDT Systolic Blood Pressure 134 mmHg Diastolic Blood Pressure 74 mmHg Mean Arterial Pressure 94 mmHg BP Location Right upper Blood Pressure Cuff Size Large 2013 8:04 CDT Temperature Core 36.4 DegC LOW Peripheral Pulse Rate 140 /min HI Systolic Blood Pressure 134 mmHg Diastolic Blood Pressure 72 mmHg Mean Arterial Pressure 93 mmHg BP Location Right upper Blood Pressure Cuff Size Regular , Measurements 2013 9:30 CDT Dosing Weight 87.00 kg Actual Weight 87.0 kg 2013 8:04 CDT Dosing Weight 86.5 kg Actual Weight 86.5 kg Weight Source Standing scale , SpO2 2013 9:30 CDT SpO2 96 % . General: Alert, moderate distress and anxious. Skin: Warm and dry. Head: Normocephalic and atraumatic. Neck: Trachea midline. Eye: Pupils are equal, round and reactive to light and extraocular movements are intact. Ears, nose, mouth and throat: Oral mucosa moist. Cardiovascular: Normal peripheral perfusion. Respiratory: Respirations are non-labored. Gastrointestinal: Soft, Tenderness: Moderate, epigastric, right upper quadrant and Rebound: Negative. Back: Nontender and bilateral flank pain. Musculoskeletal: Normal ROM. normal strength. Neurological: Alert and oriented to person, place, time, and situation and No focal neurological deficit observed. Lymphatics: No lymphadenopathy. Psychiatric: Cooperative. Medical Decision Making Differential Diagnosis:Abdominal pain, bowel obstruction. 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 Was told she has pyelo and given Rx for abx, but then told to come to ER. She complains of 10/10 bilateral flank pain and fevers and also 8/10 epigastric pain. No gall bladder or appendix. Here, will get labs, treat sx and bring in for IV hydration and paincontrol and abx.. Documents reviewed:Emergency department nurses' notes. Results review:Lab results : Lab View 2013 8:04 CDT UUA Source. 2013 8:48 CDT Hgb 14.9 g/dL Hct 44.5 % WBC 9.5 x10(9)/L RBC 4.81 x10(12)/L MCV 92.5 fL RDW 12.1 % Platelet 273 x10(9)/L Lymph Absolute 0.70 x10(9)/L LOW Gordon Absolute 0.4 K/mm3 Granulo Absolut 8.4 HI Differential? Auto Sodium Lvl 138 mmol/L Potassium Lvl 4.2 mmol/L Chloride 104 mmol/L CO2 20 mmol/L LOW AGAP 15 mmol/L Alkaline Phosphatase 154 U/L HI Glucose Lvl 107 mg/dL Creatinine 0.6 mg/dL EGFR (MDRD) >60 EGFR (MDRD) >60 BUN 15 mg/dL Calcium Lvl 9.4 mg/dL Protein Total 7.2 g/dL Albumin Lvl 4.3 g/dL AST 14 U/L ALT 19 U/L Bili Total 0.3 mg/dL 2013 8:04 CDT UA Color Yellow UA Spec Grav >=1.030 UA pH 5.5 UA Protein 30 UA Glucose Negative UA Ketones Negative UA Bili Negative UA Urobilinogen 0.2 UA Blood Negative UA Nitrite Negative UA Leuk Est Trace UA WBC 4-10 UA RBC 3-10 UA Bacteria Trace UA Mucous 2+ UA Appear Clear UA Epi 2+ UA Casts None Seen UA Crystals None Seen UR % Dysmorphic RBC <=25 % 2013 8:04 CDT Culture Urine Review , Labs have been reviewed and abnormalities adressed.. Radiology results:Radiologist's interpretation: : Radiology 2013 16:[address] Urogram w/ + w/o contrast RADCTUROGRAM . Impression and Plan Diagnosis flank pain Plan Condition: Stable. Disposition: Place in Observation Unit. Electronically Signed By: SPIKE GASPAR MD On: 08/22/2013 05:23 PM Modified by and Electronically Signed by: SPIKE GASPAR MD On: 08/22/2013 05:23 PM Source: [facility] Document Id: [id number]} Yoly Mendez RSebastianN. - 2013 9:30 AM CDT ED Triage Assessment Document Has Been Updated ED Triage Assessment Entered On: 2013 9:39 CDT Performed On: 2013 9:30 CDT by YOLY MENDEZ RN Reason For Visit (As Of: 2013 09:44:26 CDT) Problems(Active) Abdominal pain - Unspecified site (ICD-9-CM :789.00 ) Name of Problem: Abdominal pain - Unspecified site ; Recorder: CHRIS AGUILERA DO; Confirmation: Confirmed ; Classification: Medical ; Code: 789.00 ; Contributor System: [employer] ; Last Updated: 04/15/2010 16:07 COMPUTER TECHNICAL SUPPORT SPECIALIST ; Life Cycle Date: 04/15/2010; Life Cycle Status: Active ; Responsible Provider: CHRIS AGUILERA DO; Vocabulary: ICD-9-CM Dysmenorrhea (ICD-9-CM :625.3 ) Name of Problem: Dysmenorrhea ; Onset Date: 07/01/2010 ; Recorder: CHRIS AGUILERA DO; Confirmation: Confirmed ; Classification: Medical ; Code: 625.3 ; Last Updated: 07/01/2010 14:23 COMPUTER TECHNICAL SUPPORT SPECIALIST ; Life Cycle Status: Active ; Responsible Provider: CHRIS AGUILERA DO; Vocabular y: ICD-9-CM Elevated Liver Enzymes (ICD-9-CM :794.8 ) Name of Problem: Elevated Liver Enzymes ; Recorder: CHRIS AGUILERA DO; Confirmation: Confirmed ; Classification: Medical ; Code: 794.8 ; Contributor System: [employer] ; Last Updated: 04/15/2010 16:08 COMPUTER TECHNICAL SUPPORT SPECIALIST ; Life Cycle Date: 04/15/2010 ; Life Cycle Status: Active ; Responsible Provider: CHRIS AGUILERA DO; Vocabulary: ICD-9-CM Other Specified Counseling (ICD-9-CM :V65.49 ) Name of Problem: Other Specified Counseling ; Recorder: MADISON BROWN RN; Confirmation: Confirmed ; Classification: Nursing ; Code: V65.49 ;Contributor System: [employer] ; Last Updated: 07/24/2010 15:13 COMPUTER TECHNICAL SUPPORT SPECIALIST ; Life Cycle Date: 07/24/2010 ; Life Cycle Status: Active ; Responsible Provider: MADISON BROWN RN; Vocabulary: ICD-9-CM Spasm of Sphincter of Oddi (ICD-9-CM :576.5 ) Name of Problem: Spasm of Sphincter of Oddi ; Onset Date: 03/04/2011 ; Recorder: CHRIS AGUILERA DO; Confirmation: Confirmed ; Classification: Medical ; Code: 576.5 ; Last Updated: 04/09/2011 8:28 COMPUTER TECHNICAL SUPPORT SPECIALIST ; Life Cycle Status: Active ; Responsible Provider: CHRIS COX DO; Vocabulary: ICD-9-CM Diagnoses(Active) Abdominal pain Date: 2013 ; Diagnosis Type: Reason For Visit ; Confirmation: Complaint of ; Clinical Dx: Abdominal pain ; Classification: Medical ; Clinical Service: Emergency medicine ; Code: PNED ; Probability: 0 ; Diagnosis Code: [id number] Flank pain Date: 2013 ; Diagnosis Type: Reason For Visit ; Confirmation: Complaint of ; Clinical Dx: Flank pain ; Classification: Medical ; Clinical Service: Emergency medicine ; Code: PNED ; Probability: 0 ; Diagnosis Code: [id number] Triage Chief Complaint Description : Felecia is here on her birthday. She has been sick for the last two days with bilateral flank pain and odor to her urine,[place] this am/labs and ua/ referred here re hx surgery of stent in sphyncter of guanaco /appy 2009 Mode of Arrival ED : Ambulatory Track : Medical Languages : Serbian Vital Signs Assessed : Yes GCS Assessed : Yes Treatments Prior to Arrival : None TAIWO YOLY GOODMAN RN - 2013 9:30 CDT Vital Signs Respiratory Rate : 16 /min Systolic Blood Pressure : 137 mmHg Diastolic Blood Pressure : 94 mmHg (>HHI) NIBP Mean : 108 mmHg YOLY MENDEZ RN - 2013 9:44 CDT Temperature Core : 37.4 DegC(Converted to: 99.3 DegF) Peripheral Pulse Rate : 120 /min (HI) SpO2 : 96 % Actual Weight : 87.0 kg Actual Weight Conversion to Pounds : 191.4 lb YOLY MENDEZ RN - 2013 9:30 CDT Woodbine Coma Eye Opening Response [place] : Spontaneously Best Verbal Response [place] : Oriented Best Motor Response Tarun : Obeys simple commands Woodbine Coma Score : 15 YOLY MENDEZ RN - 2013 9:30 CDT Pain Assessment Pain Symptoms : Yes YOLY MENDEZ RN - 2013 9:30 CDT Pain Pain Assessment Grid Pain 1 Pain 2 Location : Flank Abdomen Laterality : Bilateral Intensity : 10 9 TAIWO REX YOLY Boggs RN - 2013 9:30 CDT TAIWO REXYOLY HOWARD RN - 2013 9:30 CDT MARII MARII Level 1 : No MARII Level 2 : No MARII Level 3 : Many YOLY MENDEZ RN - 2013 9:30 CDT DCP GENERIC CODE Tracking Group : JESSICA Tracking Acuity : 3 -Urgent YOLY MENDEZ RN - 2013 9:30 CDT Allergy (As Of: 2013 09:39:16 CDT) Allergies (Active) NKA Estimated Onset Date: Unspecified ; Created By: BRUNO PENG; Reaction Status: Active ; Category: Drug ; Substance: NKA ; Type: Allergy ; Updated By: BRUNO PENG; Reviewed Date: 2013 9:36 CDT ID Screen Drug Resistant Organism : No TAIWO REX YOLY Boggs RN - 2013 9:30 CDT Source: [facility] Document Id: [id number] CDT!6 Yoly Mendez R.N. - 2013 9:30 AM CDT ED Treatments and Procedures ED Treatments and Procedures Entered On: 2013 10:14 CDT Performed On: 2013 9:30 CDT by YOLY MENDEZ RN Peripheral IV Peripheral IV Assess/Intervention Grid Peripheral IV #1 IV Activity : Start Number of Attempts : 1 Date of Insertion : 2013 CDT IV Site : Hand Catheter Size : 20 Catheter Type : Over the needle Comments (Comment: lab draw [YOLY MENDEZ RN - 2013 10:13 CDT] ) YOLY MENDEZ RN - 2013 10:13 CDT Source: [employer] Document Id: [id number] CDT!10 documented in this encounter Miscellaneous Notes Miscellaneous - Conversion, Historical Provider Ser - 08/20/2013 11:34 AM CDT Hospital Patient Education The following Patient Education Materials have been given to the patient: Patient Education Materials: Ambulatory BACK EXERCISES, Lumbar BACK CARE TIPS Ambulatory [id number] EXERCISES TO STRENGTHEN YOUR LOWER BACK Strong lower-back and abdominal muscles work together to support your spine. These exercises will help strengthen the muscles of the lower back. It is important that you begin exercising slowly and increase levels gradually. Always begin any exercise program with stretching. If you feel pain while doing any of these exercises, stop and talk to your doctor about a more specific exercise program that suits your condition better. LOW BACK STRETCH ?? Lie on your back with your knees bent and both feet on the ground. ?? Slowly raise your left knee to your chest as you flatten your lower back against the floor. Hold for 5 seconds. ?? Relax and repeat the exercise with your right knee. ?? Do 10 of these exercises for each leg. ?? Repeat hugging both knees to your chest at the same time. BUILDING LOWER BACK STRENGTH 1. Kneeling Lumbar Extension: Begin on your hands and knees. Simultaneously raise and straighten your right arm and left leg until they are parallel to the ground. Hold for 2 seconds and come back slowly to a starting position. Repeat with left arm and right leg, alternating 10 times. 2. Prone Lumbar Extension: Lie face down, arms extended overhead, palms on the floor. Simultaneouslyraise your right arm and left leg as high as comfortably possible. Hold for 10 seconds and slowly return to start. Repeat with left arm and right leg, alternating 10 times. Gradually build up to 20 times. (Advanced: Repeat this exercise raising both arms and both legs a few inches off the floor at thesame time. Hold for 5 seconds and release.) 3. Pelvic Tilt: Lie on the floor on your back with your knees bent at 90 degrees. Your feet should be flat on the floor. Inhale, exhale, then slowly contract your abdominal muscles bringing your navel toward your spine. Let your pelvis rock back until your lower back is flat on the floor. Hold for 10 seconds while breathing smoothly. Abdominal Crunch: Perform a Pelvic Tilt (above) flattening your lower back against the floor. Holding the tension in your abdominal muscles, take another breath and raise your shoulder blades off the ground (this is not a full sit- up). Keep your head in line with your body (dont bend your neck forward). Hold for 2 seconds, then slowly lower. ?? [phone] [facility], [address] [place] [address], [place] [address]. All rights reserved. This information is not intended as a substitute for professional medical care. Always follow your healthcare professional's instructions. [id number] BACK CARE TIPS These are things you can do to prevent a recurrence of acute back pain and to reduce symptoms from chronic back pain: ?? Maintain a healthy weight. If you are overweight, losing weight will help most types of back pain. ?? Exercise is an important part of recovery from most types of back pain. The back is supported by the muscles behind and in front of the spine. This means both the back muscles and the abdominal muscles must be strengthened to provide better support for your spine. ?? Swimming and brisk walking are good overall exercises to improve your fitness level. ?? Practice safe lifting methods (below). ?? Practice good posture when sitting, standing and walking. Avoid prolonged sitting. This puts morestress on the lower back than standing or walking. ?? Wear quality shoes with sufficient arch support. Foot and ankle alignment can affect back symptoms. Women should avoid high heels. ?? Therapeutic massage can help relieve acute and chronic back pain. ?? During the first two days after an acute injury or flare-up of chronic back pain, apply an ice pack to the painful area for 20 minutes every 2-4 hours. This will reduce swelling and pain. Heat (hot shower, hot bath, or heating pad) works well for muscle spasm. You can start with ice, then switch toheat after two days. Some patients feel best alternating ice and heat treatments. Use the one methodthat feels the best to you. ?? You may use acetaminophen (Tylenol) or ibuprofen (Motrin, Advil) to control pain, unless another medicine was prescribed. [NOTE: If you have chronic liver or kidney disease or ever had a stomach ulcer or GI bleeding, talk with your doctor before using these medicines.] LUMBAR STRETCH Here is a simple stretching exercise that will help relax muscle spasm and keep your back more limber. If exercise makes your back pain worse, dont do it. ?? Lie on your back with your knees bent and both feet on the ground. ?? Slowly raise your left knee to your chest as you flatten your lower back against the floor. Hold for 5 seconds. ?? Relax and repeat the exercise with your right knee. ?? Do 10 of these exercises for each leg. SAFE LIFTING METHOD ?? Dont bend over at the waist to lift an object off the floor. Instead, bend your knees and hips anai squat. ?? Keep your back and head upright. ?? Hold the object close to your body, directly in front of you. ?? Straighten your legs to lift the object. ?? Lower the object to the floor in the reverse fashion. ?? If you must slide something across the floor, push it. POSTURE TIPS SITTING Sit in chairs with straight backs or low-back support. Keep your knees a little higher than your hips. If necessary, use a low stool to prop your feet on, so your feet are resting on a solid surface. When driving, sit up straight. Adjust the seat forward so you are not leaning toward the steering wheel. A small pillow or rolled towel behind your lower back may help if you are driving long distances. STANDING When standing for long periods, shift most of your weight to one leg at a time. Alternate legs everyfew minutes. SLEEPING The best way to sleep is on your side with your knees bent. Put a low pillow under your head to support your neck in a neutral spine position. Avoid thick pillows that bend your neck to one side. Put apillow between your legs to further relax your lower back. If you sleep on your back, put pillows under your knees to support your legs in a slightly flexed position. Use a firm mattress. If your mattress sags, replace it, or use a 1/2-inch plywood board under the mattress to add support. FOLLOW UP with your doctor or as directed by our staff. RETURN PROMPTLY or contact your doctor if any of the following occur: ?? Pain becomes worse or spreads to your arms or legs ?? Weakness or numbness in one or both arms or legs ?? Loss of bowel or bladder control Numbness in the groin area ?? [phone] [place] [address]. All rights reserved. This information is not intended as a substitute for professional medical care. Always follow your healthcare professional's instructions. This document has images extracted. Please consider using [employer] for all your patient education needs. Source: [facility] Document Id: [id number] Miscellaneous - Isabella Silverman, R.N. - 08/20/2013 9:33 AM CDT Adult Activities of Daily Living Adult Activities of Daily Living Entered On: 08/20/2013 9:33 CDT Performed On: 08/20/2013 9:33 CDT by ISABELLA SILVERMAN RN ADLs I Activity Status ADL : Ambulating in oliva Activity Assistance : Independent Assistive Device : None Ambulation Patient Effort : Good ISABELLA SILVERMAN RN - 08/20/2013 9:33 CDT ADLs II Hygiene Assistance Grid Hair Care : Independent Oral Care : Independent Ginna Care : Independent ISABELLA SILVERMAN RN - 08/20/2013 9:33 CDT Elimination Assistance Offered Q2H : Independent Bowel Movement Last Date : 08/20/2013 CDT Standard Safety : Bed in low position, Call device within reach, ID band check, Non-Slip footwear, Rounds every 1 hour, Upper/Half-length side-rails up, Wheels locked ISABELLA SILVERMAN RN - 08/20/2013 9:33 CDT Source: [employer] Document Id: [id number] CDT!14 Rafael - Isabella Silverman R.N. - 08/20/2013 9:32 AM CDT Comfort Measures Comfort Measures Entered On: 08/20/2013 9:33 CDT Performed On: 08/20/2013 9:32 CDT by ISABELLA SILVERMAN RN Comfort Measures Comfort Measures Grid Heat Therapy : Yes ISABELLA SILVERMAN RN - 08/20/2013 9:32 CDT Comfort Measures Response : Comfort level increased ISABELLA SILVERMAN RN - 08/20/2013 9:32 CDT Source: [employer] Document Id: [id number] CDT!5 Rafael - Isabella Silverman R.N. - 08/20/2013 9:30 AM CDT Adult Ongoing Assessment Adult Ongoing Assessment Entered On: 08/20/2013 10:34 CDT Performed On: 08/20/2013 9:30 CDT by ISABELLA SILVERMAN RN Respiratory Respiratory Patient Stated Symptoms : None Respirations : Unlabored Respiratory Pattern : Regular All Lobes Breath Sounds : Clear Cough : None ISABELLA SILVERMAN RN - 08/20/2013 10:31 CDT Cardiovascular CV Patient Stated Symptoms : None Heart Rhythm : Regular Heart Sounds ICU : S1S2 Nail Bed Color : [place] Capillary Refill : Less than 2 seconds Edema Assessment : No Skin Color : Normal for ethnicity Skin Description : Normal Skin Temperature : Warm Activity Tolerance : Without distress ISABELLA SILVERMAN RN - 08/20/2013 10:31 CDT Neurological Neuro Patient Stated Symptoms : None Orientation : Oriented x 3 Level of Consciousness : Alert Gait : Steady Last Well Time Known : Not applicable ANATOLY ISABELLA K RN - 08/20/2013 10:31 CDT Psycho/Emotional Affect/Behavior : Calm, Cooperative, Appropriate Pain Symptoms : Yes Feels Rested : Yes ISABELLA SILVERMAN RN - 08/20/2013 10:31 CDT Coping Grid Behaviors indicate use of coping mechanism : Yes Family supportive and involved in care : Yes Values/Beliefs incorporated appropriately : Yes ISABELLA SILVERMAN RN - 08/20/2013 10:31 CDT Safety Grid Vision, Hearing, Mobility Adequate to Meet Safety Needs : Yes ISABELLA SILVERMAN RN - 08/20/2013 10:31 CDT Pain Pain Assessment Grid Pain 1 Pain 2 Location : Other: mid back Abdomen Laterality : Right Intensity : 5 Acceptable Intensity : 5 Time Pattern : Constant Quality : Aching Alleviating Factors : Medication, Other: heat Interventions : Heat, Medications, Rest ISABELLA SILVERMAN RN - 08/20/2013 10:31 CDT ISABELLA SILVERMAN RN - 08/20/2013 10:31 CDT Gastrointestinal GI Patient Stated Symptoms : Abdominal pain Abdomen Description : Rounded Abdomen Palpation : Soft Bowel Movement Last Date : 08/20/2013 CDT Bowel Sounds All Quadrants : Present Stool Color : Brown Stool Description : Watery, Other: undigested food Stool Amount : Large DALIISABELLA DUKE RN - 08/20/2013 10:31 CDT Genitourinary Patient Stated Symptoms : None Urinary Elimination : Voiding, no difficulties Urine Color : Yellow, Light Urine Description : Clear DALIISABELLA DUKE RN - 08/20/2013 10:31 CDT Integumentary Integumentary Patient Stated Symptoms : None Skin Turgor : Elastic Skin Integrity : Intact Mucous Membrane Color : [place] Mucous Membrane Description : Moist Skin Color : Normal for ethnicity Skin Description : Normal Skin Temperature : Warm ISABELLA SILVERMAN RN - 08/20/2013 10:31 CDT Greg Sensory Perception Greg : No impairment Moisture Greg : Rarely moist Activity Greg : Walks occasionally Mobility Greg : No limitations Nutrition Greg : Adequate Friction and Shear Greg : No apparent problem Greg Score : 21 ISABELLA SILVERMAN RN - 08/20/2013 10:31 CDT Peripheral IV Peripheral IV Assess/Intervention Grid Peripheral IV #1 Peripheral IV #2 IV Activity : Assessment Discontinue, Assessment Number of Attempts : 1 2 Date of Insertion : 2013 CDT 08/19/2013 CDT IV Site : Hand Antecubital Laterality : Left Left Catheter Size : 20 18 Catheter Type : Over the needle Over the needle Site Condition : No complications Infiltration Score : 0 Phlebitis Score : 0 Primary Tubing Changed : 2013 CDT Secondary Tubing Changed : 2013 CDT Dressing/ Activity : Transparent Flow/ Patency : No complications ISABELLA SILVERMAN RN - 08/20/2013 10:31 CDT ISABELLA SILVERMAN RN - 08/20/2013 10:31 CDT Hendrich II Fall Risk Confusion/Disorientation Hendrich : No Depression Fall Risk Hendrich : No Altered Elimination Fall Risk Hendrich : No Dizziness/Vertigo Fall Risk Hendrich : No Gender, Male Fall Risk Hendrich : No Prescribed Antiepileptics Hendrich : No Prescribed Benzodiazepines Hendrich : No Rising From Chair Fall Risk Hendrich : Able to rise in a single movement, no loss of balance with steps Fall Risk Score Hendrich II : 0 ISABELLA SILVERMAN RN - 08/20/2013 10:31 CDT Safe Patient Handling Safe Pt Handling Independent : Yes - No equipment needed Safe Pt Handling Equipment Rec : No Equipment Needed ISABELLA SILVERMAN RN - 08/20/2013 10:31 CDT Education General Patient Education Power[employer] Topics : Plan of care Individuals Taught : Patient Barriers to Learning : None evident Teaching Method : Explanation Teaching Evaluation : Verbalizes understanding ISABELLA SILVERMAN RN - 08/20/2013 10:31 CDT Source: [facility] [employer] Document Id: [id number] CDT!124 Miscellaneous - Caitlin Matta R.N. - 08/20/2013 12:00 AM CDT Adult Activities of Daily Living Adult Activities of Daily Living Entered On: 08/20/2013 0:43 CDT Performed On: 08/20/2013 0:00 CDT by CAITLIN MATTA RN ADLs I Patient Position : Elevate head of bed 45 degrees Activity Assistance : Independent Range of Motion LUE : Active Range of Motion RUE : Active Range of Motion LLE : Active Range of Motion RLE : Active CAITLIN MATTA RN - 08/20/2013 0:42 CDT ADLs II Bowel Movement Last Date : 08/19/2013 CDT Standard Safety : Bed in low position, Call device within reach, ID band check, Rounds every 1 hour,Upper/Half-length side-rails up, Wheels locked CAITLIN MATTA RN - 08/20/2013 0:42 CDT [facility] Document Id: [id number] CDT!11 Miscellaneous - Caitlin Matta REddi - 08/20/2013 12:00 AM CDT Adult Ongoing Assessment Adult Ongoing Assessment Entered On: 08/20/2013 0:46 CDT Performed On: 08/20/2013 0:00 CDT by CAITLIN MATTA RN Respiratory Respiratory Patient Stated Symptoms : None Respirations : Unlabored Respiratory Pattern : Regular All Lobes Breath Sounds : Clear CAITLIN MATTA RN - 08/20/2013 0:43 CDT Cardiovascular Edema Assessment : No Skin Color : Normal for ethnicity Skin Description : Normal Skin Temperature : Warm Activity Tolerance : Without distress CAITLIN MATTA RN - 08/20/2013 0:43 CDT Neurological Neuro Patient Stated Symptoms : None Orientation : Oriented x 3 Level of Consciousness : Alert Gait : Steady Swallowing Difficulty/Aspiration Risk : None Last Well Time Known : Not applicable CAITLIN MATTA RN - 08/20/2013 0:43 CDT Psycho/Emotional Pain Symptoms : Yes CAITLIN MATTA RN - 08/20/2013 0:43 CDT Coping Grid Family supportive and involved in care : Yes (Comment: family rooming in [CAITLIN MATTA RN - 08/20/2013 0:43 CDT] ) CAITLIN MATTA RN - 08/20/2013 0:43 CDT Pain Pain Assessment Grid Pain 1 Pain 2 Location : Other: mid back Abdomen Laterality : Right Interventions : Heat, Medications, Repositioning, Rest CAITLIN MATTA RN - 08/20/2013 0:43 CDT CAITLIN MATTA RN - 08/20/2013 0:43 CDT Gastrointestinal Abdomen Palpation : Soft Bowel Movement Last Date : 08/19/2013 CDT Bowel Sounds All Quadrants : Present CAITLIN MATTA RN - 08/20/2013 0:43 CDT Genitourinary Urinary Elimination : Voiding, no difficulties CAITLIN MATTA RN - 08/20/2013 0:43 CDT Peripheral IV Peripheral IV Assess/Intervention Grid Peripheral IV #1 Peripheral IV #2 IV Activity : Assessment Discontinue, Assessment Number of Attempts : 1 2 Date of Insertion : 2013 CDT 08/19/2013 CDT IV Site : Hand Antecubital Laterality : Left Left Catheter Size : 20 18 Catheter Type : Over the needle Over the needle Primary Tubing Changed : 2013 CDT Secondary Tubing Changed : 2013 CDT Dressing/ Activity : Dry, Intact, Transparent Flow/ Patency : No complications CAITLIN MATTA RN - 08/20/2013 0:43 CDT CAITLIN MATTA RN - 08/20/2013 0:43 CDT Education General Patient Education Power[employer] Topics : Pain Management, Plan of care Individuals Taught : Patient Barriers to Learning : None evident Teaching Method : Explanation Teaching Evaluation : Verbalizes understanding CAITLIN MATTA RN - 08/20/2013 0:43 CDT Source: [facility] [employer] Document Id: [id number] CDT!67 Miscellaneous - Markos Terry R.N. - 08/19/2013 7:00 PM CDT Adult Activities of Daily Living Adult Activities of Daily Living Entered On: 08/19/2013 19:13 CDT Performed On: 08/19/2013 19:00 CDT by MARKOS TERRY RN ADLs I Ambulation Distance : 320 m(Converted to: 1,049 ft 10 inch(es), 32,000 cm) Ambulation Patient Effort : Good MARKOS TERRY RN - 08/19/2013 19:13 CDT Source: [employer] Document Id: [id number] CDT!4 Rafael - Markos Terry R.N. - 08/19/2013 6:20 PM CDT Adult Activities of Daily Living Adult Activities of Daily Living Entered On: 08/19/2013 18:22 CDT Performed On: 08/19/2013 18:20 CDT by MARKOS TERRY RN ADLs I Ambulation Distance : 320 m(Converted to: 1,049 ft 10 inch(es), 32,000 cm) Ambulation Patient Effort : MARKOS Ponce RN - 08/19/2013 18:22 CDT Source: [employer] Document Id: [id number] CDT!4 Rafael - Markos Terry R.N. - 08/19/2013 5:15 PM CDT Adult Activities of Daily Living Adult Activities of Daily Living Entered On: 08/19/2013 17:45 CDT Performed On: 08/19/2013 17:15 CDT by MARKOS TERRY RN ADLs I Activity Status ADL : Ambulating in oliva Ambulation Distance : 320 m(Converted to: 1,049 ft 10 inch(es), 32,000 cm) Ambulation Patient Effort : MARKOS Ponce RN - 08/19/2013 17:44 CDT Source: [employer] Document Id: [id number] CDT!5 Markos Rodriguez R.N. - 08/19/2013 3:45 PM CDT Adult Activities of Daily Living Adult Activities of Daily Living Entered On: 08/19/2013 15:48 CDT Performed On: 08/19/2013 15:45 CDT by MARKOS TERRY RN ADLs I Patient Position : Elevate head of bed 45 degrees Activity Status ADL : Up ad elder Activity Assistance : Independent Assistive Device : None Range of Motion LUE : Active Range of Motion RUE : Active Range of Motion LLE : Active Range of Motion RLE : Active Ambulation Patient Effort : Good MARKOS TERRY RN - 08/19/2013 15:47 CDT ADLs II Bowel Movement Last Date : 08/19/2013 CDT Standard Safety : Bed in low position, Call device within reach, Upper/Half- length side-rails up, Wheels locked MARKOS TERRY RN - 08/19/2013 15:47 CDT Source: [employer] Document Id: [id number] CDT!14 Miscellaneous - Markos Terry R.N. - 08/19/2013 3:45 PM CDT Adult Ongoing Assessment Adult Ongoing Assessment Entered On: 08/19/2013 15:52 CDT Performed On: 08/19/2013 15:45 CDT by MARKOS TERRY RN Respiratory Respirations : Unlabored All Lobes Breath Sounds : Clear Cough : None Sputum Amount : None Suction : None Airway : Patent MARKOS TERRY RN - 08/19/2013 15:48 CDT Cardiovascular Heart Rhythm : Regular Heart Sounds ICU : S1S2 Capillary Refill : Less than 2 seconds Skin Color : Normal for ethnicity Skin Description : Normal Skin Temperature : Warm Activity Tolerance : Without distress MARKOS TERRY RN - 08/19/2013 15:48 CDT Neurological Orientation : Oriented x 3 Level of Consciousness : Alert Gait : Steady Swallowing Difficulty/Aspiration Risk : None Last Well Time Known : Not applicable MARKOS TERRY RN - 08/19/2013 15:48 CDT [place] Coma Eye Opening Response [place] : Spontaneously Best Verbal Response Tarun : Oriented Best Motor Response [place] : Obeys simple commands Tarun Coma Score : 15 MARKOS TERRY RN - 08/19/2013 15:48 CDT Psycho/Emotional Affect/Behavior : Calm, Cooperative, Appropriate Pain Symptoms : Yes CELSO MARKOS Steward RN - 08/19/2013 15:48 CDT Pain Pain Assessment Grid Pain 1 Pain 2 Location : Other: mid back Abdomen Laterality : Right Intensity : 5 Acceptable Intensity : 5 Time Pattern : Constant Quality : Aching, Tightness Pain Radiation : No Aggravating Factors : Movement Alleviating Factors : Medication, Moist heat, Rest Associated Symptoms : None Interventions : Medications, Rest (Comment: methocarbamol [MARKOS TERRY RN - 08/19/2013 15:48 CDT] ) MARKOS TERRY RN - 08/19/2013 15:48 CDT MARKOS TERRY RN - 08/19/2013 15:48 CDT Gastrointestinal Abdomen Description : Symmetric Abdomen Palpation : Soft Bowel Movement Last Date : 08/19/2013 CDT Bowel Sounds All Quadrants : Present MARKOS TERRY RN - 08/19/2013 15:48 CDT Nutrition Eating Difficulties : None Appetite : Good Nutrition Risk Factors by History Adult : None MARKOS TERRY RN - 08/19/2013 15:48 CDT Genitourinary Urinary Elimination : Voiding, no difficulties Urine Color : Yellow Urine Description : Clear Urine Odor : Odorless MARKOS TERRY RN - 08/19/2013 15:48 CDT Integumentary Skin Turgor : Elastic Skin Integrity : Intact Mucous Membrane Color : [place] Mucous Membrane Description : Moist MARKOS TERRY RN - 08/19/2013 15:48 CDT Greg Sensory Perception Greg : No impairment Moisture Greg : Rarely moist Activity Greg : Walks occasionally Mobility Greg : No limitations Nutrition Greg : Adequate Friction and Shear Greg : No apparent problem Greg Score : 21 MARKOS TERRY RN - 08/19/2013 15:48 CDT Peripheral IV Peripheral IV Assess/Intervention Grid Peripheral IV #1 Peripheral IV #2 IV Activity : Assessment Assessment Number of Attempts : 1 2 Date of Insertion : 2013 CDT 08/19/2013 CDT IV Site : Hand Antecubital Laterality : Left Left Catheter Size : 20 18 Catheter Type : Over the needle Over the needle Site Condition : No complications No complications Drainage Description : None None Infiltration Score : 0 0 Phlebitis Score : 0 0 Primary Tubing Changed : 2013 CDT Secondary Tubing Changed : 2013 CDT Dressing/ Activity : Dry, Intact, Transparent Dry, Intact, Transparent Flow/ Patency : No complications MARKOS TERRY RN - 08/19/2013 15:48 CDT MARKOS TERRY RN - 08/19/2013 15:48 CDT Hendrich II Fall Risk Confusion/Disorientation Hendrich : No Depression Fall Risk Hendrich : No Altered Elimination Fall Risk Hendrich : Yes Dizziness/Vertigo Fall Risk Hendrich : No Gender, Male Fall Risk Hendrich : No Prescribed Antiepileptics Hendrich : No Prescribed Benzodiazepines Hendrich : No Rising From Chair Fall Risk Hendrich : Pushes up, successful in one attempt Fall Risk Score Hendrich II : 2 MARKOS TERRY RN - 08/19/2013 15:48 CDT Safe Patient Handling Safe Pt Handling Independent : Yes - No equipment needed Safe Pt Handling Equipment Rec : No Equipment Needed MARKOS TERRY RN - 08/19/2013 15:48 CDT Education General Patient Education Powergrid Topics : Plan of care Individuals Taught : Patient Barriers to Learning : None evident Teaching Method : Explanation Teaching Evaluation : Verbalizes understanding MARKOS TERRY RN - 08/19/2013 15:48 CDT [facility] [employer] Document Id: [id number] CDT!125 Miscellaneous - Isabella Silverman R.N. - 08/19/2013 10:32 AM CDT Adult Ongoing Assessment Adult Ongoing Assessment Entered On: 08/19/2013 10:35 CDT Performed On: 08/19/2013 10:32 CDT by ISABELLA SILVERMAN RN Respiratory Respiratory Patient Stated Symptoms : None Respirations : Unlabored Respiratory Pattern : Regular All Lobes Breath Sounds : Clear Cough : None ISABELLA SILVERMAN RN - 08/19/2013 10:32 CDT Cardiovascular CV Patient Stated Symptoms : None Heart Rhythm : Regular Heart Sounds ICU : S1S2 Nail Bed Color : [place] Capillary Refill : Less than 2 seconds Edema Assessment : No Skin Color : Normal for ethnicity Skin Description : Normal Skin Temperature : Warm Activity Tolerance : Without distress ISABELLA SILVERMAN RN - 08/19/2013 10:32 CDT Neurological Neuro Patient Stated Symptoms : None Orientation : Oriented x 3 Level of Consciousness : Alert Gait : Steady Swallowing Difficulty/Aspiration Risk : None Last Well Time Known : Not applicable ISABELLA SILVERMAN RN - 08/19/2013 10:32 CDT Psycho/Emotional Affect/Behavior : Calm, Cooperative, Appropriate Pain Symptoms : Yes Feels Rested : Yes ISABELLA SILVERMAN RN - 08/19/2013 10:32 CDT Coping Grid Stable mood with appropriate affect : Yes Behaviors indicate use of coping mechanism : Yes Family supportive and involved in care : Yes Values/Beliefs incorporated appropriately : Yes ISABELLA SILVERMAN RN - 08/19/2013 10:32 CDT Safety Grid Vision, Hearing, Mobility Adequate to Meet Safety Needs : Yes ISABELLA SILVERMAN RN 08/19/2013 10:32 CDT Pain Pain Assessment Grid Pain 1 Pain 2 Location : Other: right mid back Abdomen Laterality : Right Intensity : 6 Time Pattern : Constant Aggravating Factors : Other: hurts worse when I lay on that spot on my back Alleviating Factors : Medication, Repositioning Interventions : Heat, Medications, Repositioning ISABELLA SILVERMAN RN - 08/19/2013 10:32 CDT ISABELLA SILVERMAN RN - 08/19/2013 10:32 CDT Gastrointestinal GI Patient Stated Symptoms : Diarrhea Abdomen Description : Flat Abdomen Palpation : Soft Bowel Movement Last Date : 08/19/2013 CDT Bowel Sounds All Quadrants : Present Stool Color : Brown Stool Description : Liquid Stool Amount : Large ISABELLA SILVERMAN RN - 08/19/2013 10:32 CDT Genitourinary Patient Stated Symptoms : None Urinary Elimination : Voiding, no difficulties Urine Color : Yellow Urine Description : Clear ISABELLA SILVERMAN RN - 08/19/2013 10:32 CDT Integumentary Integumentary Patient Stated Symptoms : None Skin Turgor : Elastic Skin Integrity : Intact Mucous Membrane Color : [place] Mucous Membrane Description : Moist Skin Color : Normal for ethnicity Skin Description : Normal Skin Temperature : Warm ISABELLA SILVERMAN RN - 08/19/2013 10:32 CDT Greg Sensory Perception Greg : No impairment Moisture Greg : Rarely moist Activity Greg : Walks occasionally Mobility Greg : No limitations Nutrition Greg : Adequate Friction and Shear Greg : No apparent problem Greg Score : 21 ISABELLA SILVERMAN RN - 08/19/2013 10:32 CDT Peripheral IV Peripheral IV Assess/Intervention Grid Peripheral IV #1 IV Activity : Assessment Number of Attempts : 1 Date of Insertion : 2013 CDT IV Site : Hand Laterality : Left Catheter Size : 20 Catheter Type : Over the needle Site Condition : No complications Infiltration Score : 0 Phlebitis Score : 0 Primary Tubing Changed : 2013 CDT Secondary Tubing Changed : 2013 CDT Dressing/ Activity : Transparent Flow/ Patency : No complications ISABELLA SILVERMAN RN - 08/19/2013 10:36 CDT Hendrich II Fall Risk Confusion/Disorientation Hendrich : No Depression Fall Risk Hendrich : No Altered Elimination Fall Risk Hendrich : No Dizziness/Vertigo Fall Risk Hendrich : No Gender, Male Fall Risk Hendrich : No Prescribed Antiepileptics Hendrich : No Prescribed Benzodiazepines Hendrich : No Rising From Chair Fall Risk Hendrich : Able to rise in a single movement, no loss of balance with steps Fall Risk Score Hendrich II : 0 ISABELLA SILVERMAN RN - 08/19/2013 10:36 CDT Safe Patient Handling Safe Pt Handling Independent : Yes - No equipment needed Safe Pt Handling Equipment Rec : No Equipment Needed ISABELLA SILVERMAN RN - 08/19/2013 10:36 CDT Education General Patient Education [employer] Topics : Diagnostic results, Individual plan for pain management, Medication dosage, route, scheduling, Medication generic/brand names, purpose, action, Treatments/Procedures/Tests, Other: reviewed robaxin, CT and doppler studies Individuals Taught : Patient, Parent Barriers to Learning : None evident Teaching Method : Explanation, Printed materials (Comment: robaxin handout given [ISABELLA SILVERMAN RN - 08/19/2013 10:36 CDT] ) Teaching Evaluation : Verbalizes understanding ISABELLA SILVERMAN RN - 08/19/2013 10:36 CDT [facility] Document Id: [id number] CDT!117 Miscellaneous - Isabella Silverman R.N. - 08/19/2013 10:31 AM CDT Adult Activities of Daily Living Document Has Been Updated Adult Activities of Daily Living Entered On: 08/19/2013 10:32 CDT Performed On: 08/19/2013 10:31 CDT by ISABELLA SILVERMAN RN ADLs I Activity Status ADL : Ambulating in room Activity Assistance : Independent Assistive Device : None Ambulation Patient Effort : Good ISABELLA SILVERMAN RN - 08/19/2013 10:31 CDT ADLs II Hygiene Assistance Grid Hair Care : Independent Oral Care : Independent Ginna Care : Independent ISABELLA SILVERMAN RN - 08/19/2013 10:31 CDT Elimination Assistance Offered Q2H : Independent Bowel Movement Last Date : 08/19/2013 CDT Standard Safety : Bed in low position, Call device within reach, ID band check, Non-Slip footwear, Rounds every 1 hour, Upper/Half-length side-rails up, Wheels locked ISABELLA SILVERMAN RN - 08/19/2013 10:31 CDT ADLs Adult Nutrition Diet Type : Diet -- 08/18/13 13:13:00 CDT, General (Regular) Feeding Assistance : Independent ISABELLA SILVERMAN RN - 08/19/2013 10:31 CDT Breakfast : 0 % ISABELLA SILVERMAN RN - 08/19/2013 14:38 CDT Source: [facility] [employer] Document Id: [id number] CDT!3 Miscellaneous - Caitlin Matta R.N. - 08/19/2013 12:06 AM CDT Adult Ongoing Assessment Adult Ongoing Assessment Entered On: 08/19/2013 0:09 CDT Performed On: 08/19/2013 0:06 CDT by MATTA, CAITLIN A RN Respiratory Respiratory Patient Stated Symptoms : None Respirations : Unlabored Respiratory Pattern : Regular All Lobes Breath Sounds : Clear MATTA CAITLIN Celina RN - 08/19/2013 0:06 CDT Cardiovascular Edema Assessment : No Skin Color : Normal for ethnicity Skin Description : Normal Skin Temperature : Warm Activity Tolerance : Without distress MATTA CAITLIN Celina RN - 08/19/2013 0:06 CDT Neurological Neuro Patient Stated Symptoms : None Orientation : Oriented x 3 Last Well Time Known : Not applicable CAITLIN MATTA RN - 08/19/2013 0:06 CDT Psycho/Emotional Pain Symptoms : Yes CAITLIN MATTA RN - 08/19/2013 0:06 CDT Coping Grid Family supportive and involved in care : Yes (Comment: FAMILY HERE [CAITLIN MATTA RN - 08/19/2013 0:06 CDT] ) CAITLIN MTATA RN - 08/19/2013 0:06 CDT Safety Grid Vision, Hearing, Mobility Adequate to Meet Safety Needs : Yes CAITLIN MATTA RN - 08/19/2013 0:06 CDT Pain Pain Assessment Grid Pain 1 Pain 2 Location : Flank Abdomen Laterality : Right Intensity : 6 Interventions : Rest CAITLIN MATTA RN - 08/19/2013 0:06 CDT CAITLIN MATTA RN - 08/19/2013 0:06 CDT Gastrointestinal GI Patient Stated Symptoms : None Abdomen Palpation : Soft Bowel Movement Last Date : 2013 CDT Bowel Sounds All Quadrants : Present CAITLIN MATTA RN - 08/19/2013 0:06 CDT Genitourinary Urinary Elimination : Voiding, no difficulties CAITLIN MATTA RN - 08/19/2013 0:06 CDT Peripheral IV Peripheral IV Assess/Intervention Grid Peripheral IV #1 IV Activity : Assessment Number of Attempts : 1 Date of Insertion : 2013 CDT IV Site : Hand Laterality : Left Catheter Size : 20 Catheter Type : Over the needle Primary Tubing Changed : 2013 CDT Secondary Tubing Changed : 2013 CDT Dressing/ Activity : Dry, Intact, Transparent Flow/ Patency : No complications CAITLIN MATTA RN - 08/19/2013 0:06 CDT Education General Patient Education [employer] Topics : Pain Management, Plan of care Individuals Taught : Patient, Family member Barriers to Learning : None evident Teaching Method : Explanation Teaching Evaluation : Verbalizes understanding CAITLIN MATTA RN - 08/19/2013 0:06 CDT Source: [employer] Document Id: [id number] CDT!60 Mellcellkal - Caitlin Matta RKarina. - 08/19/2013 12:05 AM CDT Adult Activities of Daily Living Adult Activities of Daily Living Entered On: 08/19/2013 0:06 CDT Performed On: 08/19/2013 0:05 CDT by CAITLIN MATTA RN ADLs I Patient Position : Elevate head of bed 45 degrees Range of Motion LUE : Active Range of Motion RUE : Active CAITLIN MATTA RN - 08/19/2013 0:05 CDT ADLs II Bowel Movement Last Date : 2013 CDT Standard Safety : Bed in low position, Call device within reach, ID band check, Rounds every 1 hour,Upper/Half-length side-rails up, Wheels locked CAITLIN MATTA RN - 08/19/2013 0:05 CDT Source: [employer] Document Id: [id number] CDT!8 Rafael - Barry Pollard RSebastianN. - 2013 8:30 PM CDT Adult Activities of Daily Living Adult Activities of Daily Living Entered On: 2013 21:59 CDT Performed On: 2013 20:30 CDT by BARRY POLLARD ADLs I Patient Position : High Hanna's Activity Status ADL : Ambulating in room, Up ad elder Activity Assistance : Supervision/Minimum 1 person assistance Repositioning/Pressure Reducing Devices : Pillow Pressure Reducing Device For Bed : Foam Range of Motion LUE : Active Range of Motion RUE : Active Range of Motion LLE : Active Range of Motion RLE : Active Ambulation Patient Effort : Fab PENNINGTONOBARRY - 2013 21:58 CDT ADLs II Hygiene Assistance Grid Hair Care : Independent Oral Care : Independent Ginna Care : Independent Tub Bath/Whirlpool : Independent ATUL BARRY Donnelly - 2013 21:58 CDT Elimination Assistance Offered Q2H : Independent Bowel Movement Last Date : 2013 CDT Standard Safety : Bed in low position, Call device within reach, Non-Slip footwear, Rounds every 1 hour, Upper/Half-length side-rails up, Wheels locked ATUL BARRY Donnelly - 2013 21:58 CDT ADLs Adult Nutrition Diet Type : Diet -- 08/18/13 13:13:00 CDT, General (Regular) Feeding Assistance : Marti SOLOMON POLLARDWANDY Donnelly - 2013 21:58 CDT Source: [employer] Document Id: [id number] CDT!24 Miscellaneous - Markos Terry REddi - 2013 3:45 PM CDT Adult Activities of Daily Living Adult Activities of Daily Living Entered On: 2013 15:53 CDT Performed On: 2013 15:45 CDT by MARKOS TERRY RN ADLs I Patient Position : Elevate head of bed 30 degrees Activity Status ADL : Ambulating in room Activity Assistance : Independent Assistive Device : None Range of Motion LUE : Active Range of Motion RUE : Active Range of Motion LLE : Active Range of Motion RLE : Active Ambulation Patient Effort : MARKOS Ponce RN - 2013 15:52 CDT ADLs II Bowel Movement Last Date : 2013 CDT Standard Safety : Bed in low position, Call device within reach, Upper/Half- length side-rails up, Wheels locked MARKOS TERRY RN - 2013 15:52 CDT Source: [employer] Document Id: [id number] CDT!14 Miscellaneous - Markos Terry R.N. - 2013 3:45 PM CDT Adult Ongoing Assessment Adult Ongoing Assessment Entered On: 2013 16:03 CDT Performed On: 2013 15:45 CDT by MARKOS TERRY RN Respiratory Respirations : Unlabored Respiratory Pattern : Regular All Lobes Breath Sounds : Clear Cough : None Sputum Amount : None Suction : None Airway : Patent MARKOS ETRRY RN - 2013 15:59 CDT Cardiovascular Heart Rhythm : Regular Heart Sounds ICU : S1S2 Nail Bed Color : [place] Capillary Refill : Less than 2 seconds Edema Assessment : No Skin Color : Normal for ethnicity Skin Description : Normal Skin Temperature : Warm Activity Tolerance : Without distress MARKOS TERRY RN - 2013 15:59 CDT Neurological Orientation : Oriented x 3 Level of Consciousness : Alert Gait : Steady Swallowing Difficulty/Aspiration Risk : None Last Well Time Known : Not applicable MARKOS TERRY RN - 2013 15:59 CDT Tarun Coma Eye Opening Response Tarun : Spontaneously Best Verbal Response [place] : Oriented Best Motor Response [place] : Obeys simple commands Tarun Coma Score : 15 MARKOS TERRY RN - 2013 15:59 CDT Psycho/Emotional Affect/Behavior : Calm, Cooperative, Appropriate Pain Symptoms : Yes MARKOS TERRY RN - 2013 15:59 CDT Pain Pain Assessment Grid Pain 1 Pain 2 Location : Flank Abdomen Laterality : Bilateral Intensity : 7 Acceptable Intensity : 4 Time Pattern : Constant Quality : Tightness Pain Radiation : No Aggravating Factors : Movement Alleviating Factors : Medication, Rest Associated Symptoms : None Interventions : Rest MARKOS TERRY RN - 2013 15:59 CDT MARKOS TERRY RN - 2013 15:59 CDT Gastrointestinal Abdomen Description : Symmetric Abdomen Palpation : Soft Bowel Movement Last Date : 2013 CDT Bowel Sounds All Quadrants : Present MARKOS TERRY RN - 2013 15:59 CDT Nutrition Eating Difficulties : None Appetite : Good Nutrition Risk Factors by History Adult : None MARKOS TERRY RN - 2013 15:59 CDT Genitourinary Urinary Elimination : Voiding, no difficulties MARKOS TERRY RN - 2013 15:59 CDT Integumentary Skin Turgor : Elastic Skin Integrity : Intact Mucous Membrane Color : [place] Mucous Membrane Description : Moist MARKOS TERRY RN - 2013 15:59 CDT Skin Abnormality/Location Grid Location : Other: lt arm Laterality : Left Abnormality : Hives MARKOS TERRY RN - 2013 15:59 CDT Greg Sensory Perception Greg : No impairment Moisture Greg : Rarely moist Activity Greg : Walks occasionally Mobility Greg : No limitations Nutrition Greg : Adequate Friction and Shear Greg : No apparent problem Greg Score : 21 MARKOS TERRY RN - 2013 15:59 CDT Peripheral IV Peripheral IV Assess/Intervention Grid Peripheral IV #1 IV Activity : Assessment Number of Attempts : 1 Date of Insertion : 2013 CDT IV Site : Hand Laterality : Left Catheter Size : 20 Catheter Type : Over the needle Site Condition : No complications Drainage Description : None Infiltration Score : 0 Phlebitis Score : 0 Primary Tubing Changed : 2013 CDT Secondary Tubing Changed : 2013 CDT Site/Line Care : Cap changed Dressing/ Activity : Dry, Intact, Transparent Flow/ Patency : No complications MARKOS TERRY RN - 2013 15:59 CDT Hendrich II Fall Risk Confusion/Disorientation Hendrich : No Depression Fall Risk Hendrich : No Altered Elimination Fall Risk Hendrich : No Dizziness/Vertigo Fall Risk Hendrich : No Gender, Male Fall Risk Hendrich : No Prescribed Antiepileptics Hendrich : No Prescribed Benzodiazepines Hendrich : No Rising From Chair Fall Risk Hendrich : Pushes up, successful in one attempt Fall Risk Score Hendrich II : 1 MARKOS TERRY RN - 2013 15:59 CDT Safe Patient Handling Safe Pt Handling Independent : Yes - No equipment needed Safe Pt Handling Equipment Rec : No Equipment Needed MARKOS TERRY RN - 2013 15:59 CDT Education General Patient Education Powergrid Topics : Plan of care Individuals Taught : Patient Barriers to Learning : None evident Teaching Method : Explanation Teaching Evaluation : Verbalizes understanding MARKOS TERRY RN - 2013 15:59 CDT Source: [facility] [employer] Document Id: [id number] CDT!118 Rafael - Dottie Burnette R.N. - 2013 2:12 PM CDT Adult Activities of Daily Living Adult Activities of Daily Living Entered On: 2013 14:12 CDT Performed On: 2013 14:12 CDT by DOTTIE BURNETTE RN ADLs I Activity Status ADL : Up with assistance Activity Assistance : Stand-by assistance Assistive Device : None Range of Motion LUE : Active Range of Motion RUE : Active Range of Motion LLE : Active Range of Motion RLE : Active Ambulation Patient Effort : Good DOTTIE BURNETTE RN - 2013 14:12 CDT ADLs II Hygiene Assistance Grid Ginna Care : DOTTIE Ordaz RN - 2013 14:12 CDT Bowel Movement Last Date : 2013 CDT Standard Safety : Bed in low position, Call device within reach, Non-Slip footwear, Rounds every 1 hour, Upper/Half-length side-rails up, Wheels locked DOTTIE BURNETTE RN - 2013 14:12 CDT ADLs Adult Nutrition Diet Type : Diet -- 08/18/13 13:13:00 CDT, General (Regular) Feeding Assistance : DOTTIE Ordaz RN - 2013 14:12 CDT Source: [employer] Document Id: [id number] CDT!18 Miscellkal - Dottie Burnette R.N. - 2013 2:07 PM CDT Basic Admission Information Document Has Been Updated Basic Admission Information Entered On: 2013 14:07 CDT Performed On: 2013 14:07 CDT by DOTTIE BURNETTE RN Allergy Rule (As Of: 2013 14:07:46 CDT) Allergies (Active) ciprofloxacin Estimated Onset Date: Unspecified ; Created By: KANDACE MONTOYA RN; Reaction Status: Active ; Category: Drug ; Substance: ciprofloxacin ; Type: Allergy ; Updated By: KANDACE MONTOYA RN; Reviewed Date: 2013 13:10 CDT Valuables/Belongings Room Orientation/Facility Policy Reviewed : Yes Belongings Sent Home With : all articles with pt on arrival bagged and sent to floor with her Home Medication Disposition : None brought in with patient DOTTIE BURNETTE RN - 2013 14:07 CDT Source: [facility] [employer] Document Id: [id number] CDT!5 Miscellaneous - Dottie Burnette R.N. - 2013 1:20 PM CDT Adult Admission Assessment Adult Admission Assessment Entered On: 2013 14:11 CDT Performed On: 2013 13:20 CDT by DOTTIE BURNETTE RN Respiratory Respiratory Patient Stated Symptoms : None Respirations : Unlabored All Lobes Breath Sounds : Clear Cough : None DOTTIE BURNETTE RN - 2013 14:08 CDT Cardiovascular CV Patient Stated Symptoms : None Heart Rhythm : Regular Heart Sounds ICU : S1S2 Nail Bed Color : [place] Capillary Refill : Less than 2 seconds Edema Assessment : No Skin Color : Normal for ethnicity Skin Description : Moist Skin Temperature : Warm DOTTIE BURNETTE RN - 2013 14:08 CDT Neurological Neuro Patient Stated Symptoms : None Orientation : Oriented x 3 Level of Consciousness : Alert Gait : Steady Swallowing Difficulty/Aspiration Risk : None Last Well Time Known : Not applicable DOTTIE BURNETTE RN - 2013 14:08 CDT Psycho/Emotional Pain Symptoms : Yes Affect/Behavior : Calm, Cooperative, Appropriate DOTTIE BURNETTE RN - 2013 14:08 CDT Coping Grid Indicates sense of control : Yes Stressors perceived within control : Yes Stable mood with appropriate affect : Yes Behaviors indicate use of coping mechanism : Yes Family supportive and involved in care : Yes DOTTIE BURNETTE RN - 2013 14:08 CDT Safety Grid Vision, Hearing, Mobility Adequate to Meet Safety Needs : Yes DOTTIE BURNETTE RN - 2013 14:08 CDT Pain Pain Assessment Grid Pain 1 Pain 2 Location : Flank Abdomen Laterality : Right Intensity : 7 Quality : Throbbing Aggravating Factors : None Alleviating Factors : Medication, Rest Associated Symptoms : None Interventions : Medications, Rest DOTTIE BURNETTE RN - 2013 14:08 CDT DOTTIE BURNETTE RN - 2013 14:08 CDT Gastrointestinal GI Patient Stated Symptoms : None Abdomen Description : Obese Abdomen Palpation : Soft Bowel Movement Last Date : 2013 CDT Bowel Sounds All Quadrants : Present DOTTIE BURNETTE RN - 2013 14:08 CDT Genitourinary Patient Stated Symptoms : Urgency Urinary Elimination : Voiding, no difficulties DOTTIE BURNETTE RN - 2013 14:08 CDT Integumentary Integumentary Patient Stated Symptoms : Itching Skin Turgor : Elastic Skin Integrity : Intact Mucous Membrane Color : [place] Mucous Membrane Description : Moist DOTTIE BURNETTE RN - 2013 14:08 CDT Skin Abnormality/Location Grid Location : Other: lt arm Laterality : Left Abnormality : Hives Treatment : Other: iv and po benedryl Comments (Comment: reaction from iv cipro; placed on pt's allergy list [DOTTIE BURNETTE RN - 2013 14:08 CDT] ) DOTTIE BURNETTE RN - 2013 14:08 CDT Peripheral IV Peripheral IV Assess/Intervention Grid Peripheral IV #1 IV Activity : Assessment Number of Attempts : 1 Date of Insertion : 2013 CDT IV Site : Hand Catheter Size : 20 Catheter Type : Over the needle Infiltration Score : 0 Phlebitis Score : 0 Primary Tubing Changed : 2013 CDT Secondary Tubing Changed : 2013 CDT Dressing/ Activity : Dry, Intact, Transparent Flow/ Patency : No complications DOTTIE BURNETTE RN - 2013 14:08 CDT Hendrich II Fall Risk Confusion/Disorientation Hendrich : No Depression Fall Risk Hendrich : No Altered Elimination Fall Risk Hendrich : No Dizziness/Vertigo Fall Risk Hendrich : No Gender, Male Fall Risk Hendrich : No Prescribed Antiepileptics Hendrich : No Prescribed Benzodiazepines Hendrich : No Rising From Chair Fall Risk Hendrich : Pushes up, successful in one attempt Fall Risk Score Hendrich II : 1 DOTTIE BURNETTE RN - 2013 14:08 CDT Safe Patient Handling Safe Pt Handling Independent : No Safe Pt Handling Supervision/Minimal Assistance : Yes - Unmotorized Equipment Safe Pt Handling Equipment Rec : Unmotorized Equipment DOTTIE BURNETTE RN - 2013 14:08 CDT Education General Patient Education Powergrid Topics : Activity limitations/expectations, Disease process, Equipment, Individual plan for pain management, Medication dosage, route, scheduling, Medication generic/brand names, purpose, action, Nutrition/Diet, Pain Management, Plan of care, Safety, fall, Treatments/Procedures/Tests, Unit procedures,Use of pain scale(s), Other: benedryl; rocephin; dilaudid Individuals Taught : Patient, Parent, Sibling Barriers to Learning : None evident Teaching Method : Explanation Teaching Evaluation : Verbalizes understanding DOTTIE BURNETTE RN - 2013 14:08 CDT Source: [facility] [employer] Document Id: [id number] CDT!105 Miscellaneous - Kandace Montoya R.N. - 2013 12:59 PM CDT Adult Admission History Document Has Been Updated Adult Admission History Entered On: 2013 13:01 CDT Performed On: 2013 12:59 CDT by KANDACE MONTOYA RN General Info Preferred Name : Ramírez Izquierdo Admitted From : Non-Health Care Facility Point of Origin Mode of Arrival : Cart Accompanied By : Mother Information Given By : Patient Languages : Serbian KANDACE MONTOYA RN - 2013 12:59 CDT Allergy (As Of: 2013 13:12:08 CDT) Allergies (Active) ciprofloxacin Estimated Onset Date: Unspecified ; Created By: KANDACE MONTOYA RN; Reaction Status: Active ; Category: Drug ; Substance: ciprofloxacin ; Type: Allergy ; Updated By: KANDACE MONTOYA RN; Reviewed Date: 2013 13:10 CDT Nutrition Nutrition Risk Factors by History Adult : None Home Diet : Regular Feeding Ability : Complete independence Eating Difficulties : None Appetite : Good KANDACE MONTOYA RN - 2013 12:59 CDT Home Environment Current Daily Living Assistance : None Living Situation : Home with family USP Equipment : None Mobility Assistance Prior to Admission : Independent Current Home Treatments : None Professional Skilled Services : None KANDACE MONTOYA RN - 2013 12:59 CDT Dependent Habits Alcohol Use : No KANDACE MONTOYA RN - 2013 12:59 CDT Caffeine Use Grid Caffeine Use : Current Type : Soft drinks Frequency : Daily Amount : 1 KANDACE MONTOYA RN - 2013 12:59 CDT Recreational Drug Use Grid Drug Use : None KANDACE MONTOYA RN - 2013 12:59 CDT Psychosocial Adult Domestic Abuse Concerns : None Concerns About Family Members at Home : No Emotional Support Available : Yes Anglican Preference : Unknown KANDACE MONTOYA RN - 2013 12:59 CDT Advance Directive Advanced Directives : No KANDACE MONTOYA RN - 2013 12:59 CDT Educ Needs Learning Style Preference Adult Grid Patient : Verbal explanation Family : Verbal explanation KANDACE MONTOYA RN - 2013 12:59 CDT DC Needs Home Treatments, Anticipated : None Home Equipment, Anticipated : None Professional Skilled Services, Anticipated : None Special Serv & Comm Res, Anticipated : None KANDACE MONTOYA RN - 2013 12:59 CDT Source: [facility] [employer] Document Id: [id number] CDT!48 Miscellaneous - Muehlbauer, Spike M, RSebastianN. - 2013 12:33 PM CDT Valuables/Belongings Valuables/Belongings Entered On: 2013 12:34 CDT Performed On: 2013 12:33 CDT by SPIKE PARIKH RN Valuables/Belongings Belongings Sent Home With : all articles with pt on arrival bagged and sent to floor with her SPIKE PARIKH RN - 2013 12:33 CDT Source: [facility] [employer] Document Id: [id number] CDT!3 Miscellaneous - Spike Parikh, RSebastianN. - 2013 9:20 AM CDT Facility Charge Ticket 2.0 11.0 DX Facility Charge Ticket 2.0 11.0 DX Entered On: 2013 12:34 CDT Performed On: 2013 9:20 CDT by SPIKE PARIKH RN Facility Charge Ticket 2.0 11.0 DX ED Other Charges : Standard ED Encounter TVL Level Translated RTF : Flank pain, Abdominal pain TVL:4 TVL Level for Facility Charge Ticket : Level 4 Arrival Mode Calc : 1 Mode of Arrival ED : Ambulatory [facility] Mode of Arrival Interpreted : Standard [facility] Process Management : None Order Management RTF : Laboratory Lipase Level,08/18/13 09:41,SPIKE GASPAR MD Completed Lactic Acid,08/18/13 09:41,SPIKE GASPAR MD Completed Beta hCG Qualitative, Serum,08/18/13 09:41,SPIKE GASPAR MD Completed Urine Culture,08/18/13 09:41,SPIKE GASPAR MD Ordered [facility] Order Management : Lab tests 30 Minutes Critical Care : No Nursing Notes RTF : Triage Forms ED Triage Assessment,08/18/13 09:30,YOLY MENDEZ RN Nursing Notes ED Primary Assessment,08/18/13 10:16,SPIKE PARIKH BODY SPECIALIST Nurse Reassess,08/18/13 12:13,SPIKE PARIKH BODY SPECIALIST Nurse Reassess,08/18/13 11:00,SPIKE PARIKH BODY SPECIALIST Pain Assessment,08/18/13 12:33,SPIKE PARIKH RN [facility] Nursing Assessment : Triage and 3-5 nursing assessments [facility] Disposition : Admit - Observation, Inpatient, or other Outpatient [facility] Total Points with Diagnosis Control : 13 [facility] Visit Level : 70520 Level 5 Treatments Prior to Arrival : None SPIKE PARIKH RN - 2013 12:34 CDT Source: [employer] Document Id: [id number] CDT!18 documented in this encounter Plan of Treatment Upcoming Encounters Date Type Specialty Care Team Description 04/22/2022 Appointment Laboratory Medicine Meryl Julio M.D. [address] [place] [address] [id number] (Wo rk) 04/29/2022 Office Visit Endocrinology Meryl Julio M .D. [address] [place] [address] [phone] (Wo rk) documented as of this encounter Procedures Procedure Name Priority Date/Time Associated Comments Diagnosis CT CHEST ANGIOGRAM Routine 08/19/2013 4:16 PM Res ults for this WITH IV CONTRAST CDT procedure a re in the results section. GI PATHOGEN PANEL, Routine 08/19/2013 12:31 Resul ts for this PCR, F PM CDT procedure are i n the results section. US LOWER EXTREMITY Routine 08/19/2013 10:11 Resul ts for this VEINS BILATERAL AM CDT procedure ar e in the results section. D-DIMER, P Routine 08/19/2013 9:45 AM Results f or this CDT procedure are i n the results section. CBC WITHOUT Routine 08/19/2013 6:23 AM Results f or this DIFFERENTIAL, B CDT procedure ar e in the results section. COMPREHENSIVE Routine 08/19/2013 6:23 AM Results for this METABOLIC PANEL, S/P CDT procedu re are in the results section. CT UROGRAM WITHOUT AND Routine 2013 3:54 PM Results for this WITH IV CONTRAST CDT procedure a re in the results section. ECG Routine 2013 1:39 PM Results f or this CDT procedure are i n the results section. LACTATE, B/P Routine 2013 1:31 PM Results f or this CDT procedure are i n the results section. BACTERIAL CULTURE, Routine 2013 1:25 PM Res ults for this BLOOD CDT procedure are i n the results section. BACTERIAL CULTURE, Routine 2013 1:00 PM Res ults for this BLOOD CDT procedure are i n the results section. TEST (HCG), Routine 2013 9:50 AM Results for this S CDT procedure are i n the results section. MAGNESIUM, S Routine 2013 9:50 AM Results f or this CDT procedure are i n the results section. LIPASE, S/P Routine 2013 9:50 AM Results f or this CDT procedure are i n the results section. LACTATE, B/P Routine 2013 9:50 AM Results f or this CDT procedure are i n the results section. documented in this encounter Results CT Chest Angiogram (08/19/2013 4:16 PM CDT) Anatomical Region Laterality Modality Chest N/A Computed Tomography Specimen (Source) Anatomical Collection Method Collection Time Re ceived Time Location / / Volume Laterality 08/19/2013 4:16 PM CDT Impressions 08/19/2013 4:32 PM CDT No evidence for PE or aortic dissection. Narrative 08/19/2013 4:32 PM CDT EXAM: CT Angio Chest INDICATION: positive dimer COMPARISON: None. PROCEDURE: During rapid infusion of intr avenous contrast a series of helical images in the axial plane were o btained through the chest. FINDINGS: No PE is seen in either lung f ield. The lung parenchyma is clear. The mediastinal structures enhanc e normally. The thoracic aorta is within normal limits with no ev idence of dissection or aneurysm. The gallbladder has been remov ed. There is fatty infiltration of the liver. The upper abd ominal structures are otherwise normal. Procedure Note Jong Arriaga M.D. / Provider, Jamaal obrien M.D. - 10/03/2016 EXAM: CT Angio Chest INDICATION: positive dimer COMPARISON: None. PROCEDURE: During rapid infusion of intr avenous contrast a series of helical images in the axial plane were o btained through the chest. FINDINGS: No PE is seen in either lung f ield. The lung parenchyma is clear. The mediastinal structures enhanc e normally. The thoracic aorta is within normal limits with no ev idence of dissection or aneurysm. The gallbladder has been remov ed. There is fatty infiltration of the liver. The upper abd ominal structures are otherwise normal. IMPRESSION: No evidence for PE or aortic dissection. Nery Turner R.TSebastian(R)(CT), R.T.(R) IMG CT PROCEDURES GI Pathogen Panel, PCR, F (08/19/2013 12:31 PM CDT) [facility] Method Time Signature HXC Difficile [employer] Toxin DNA by PCR HXFinal Negative for [employer]ART Clostridium difficile Toxin B by PCR. HXFinal Reference: [employer]OWERCHART Negative Specimen (Source) Anatomical Collection Method Collection Time Re ceived Time Location / / Volume Laterality Stool 08/19/2013 12:31 PM CDT Hernesto English M.D. LAB MICROBIOLOGY - GENERAL O RDERABLES Performing Organization Address City/State/ZIP Code Phon e Number POWERCHART US Lower Extremity Veins Bilateral (08/19/2013 10:11 AM CDT) Anatomical Region Laterality Modality Lower Extremity Bilateral Ultrasound Specimen (Source) Anatomical Collection Method Collection Time Re ceived Time Location / / Volume Laterality 08/19/2013 10:11 AM CDT Impressions 08/19/2013 12:01 PM CDT 1. No acute right or left lower extremit y femoral-popliteal DVT. 2. Normal augmented flow and compression documented within the posterior calf veins. Narrative 08/19/2013 12:01 PM CDT Technique: Ultrasound exam of right and left lower extremities was obtained. ??No prior studies are availab le for comparison. FINDINGS: Normal phasic flow is present in the right and left common femoral, femoral and popliteal veins and the proximal medial saphenous and profunda femoral veins. Cardiorespiratory phasicity augmentation were documented with spectral Doppler in the right and left f emoral popliteal venous system. Normal compression sonography of the rig ht and left femoral popliteal venous systems was documented. Normal augmented flow and compression do cumented within the posterior calf veins. Procedure Note Rodrigo Carvalho M.D. / Provider, Seferino boggs M.D. - 10/03/2016 Technique: Ultrasound exam of right and left lower extremities was obtained. No prior studies are available for comparison. FINDINGS: Normal phasic flow is present in the right and left common femoral, femoral and popliteal veins and the proximal medial saphenous and profunda femoral veins. Cardiorespiratory phasicity augmentation were documented with spectral Doppler in the right and left f emoral popliteal venous system. Normal compression sonography of the rig ht and left femoral popliteal venous systems was documented. Normal augmented flow and compression do cumented within the posterior calf veins. IMPRESSION: 1. No acute right or left lower extremit y femoral-popliteal DVT. 2. Normal augmented flow and compression documented within the posterior calf veins. Dena Hong R.V.T., GabeMSebastianS. IMG US PROCEDURES (ABNORMAL) D-Dimer (08/19/2013 9:45 AM CDT) P athologist Signature D-Dimer, P 0.95 (H) <=0.49 POWERCHART [id number] Comment: Studies have shown that with levels of D -Dimer less than 1.4 , pulmonary embolism and deep vein thrombo sis are not likely. Specimen (Source) Anatomical Collection Method Collection Time Re ceived Time Location / / Volume Laterality Blood 08/19/2013 9:45 AM CDT Hernesto English M.D. LAB BLOOD ADD-ON Performing Organization Address City/State/ZIP Code Phon e Number POWERCHART CBC without Differential (08/19/2013 6:23 AM CDT) P athologist Signature Leukocytes 5.3 3.5 - 10.5 [employer]OWERCHART X109L Erythrocytes 4.00 3.90 - 5.03 POWERCHART [id number] Hemoglobin 12.1 12.0 - 15.5 POWERCHART GDL Hematocrit 36.8 34.9 - 44.5 [employer]ART MCV 92.0 81.6 - 98.3 [employer]OWER[employer]ART FL HX RDW 12.5 11.9 - 15.5 [employer]ART Platelet Count 198 150 - 450 POWERCHART [id number] Specimen (Source) Anatomical Collection Method Collection Time Re ceived Time Location / / Volume Laterality Blood 08/19/2013 6:23 AM CDT Hernesto English M.D. LAB BLOOD ADD-ON Performing Organization Address City/State/ZIP Code Phon e Number POWERCHART (ABNORMAL) CMP (Comprehensive Metabolic Panel) (08/19/2013 6:23 AM CDT) [facility] gist Method Time Signature Total Protein, S 5.3 (L) 6.3 - 7.9 POWERCHART GDL Albumin, S 3.2 (L) 3.5 - 5.2 POWERCHART GDL Sodium, S 140 135 - 145 POWERCHART MMOLL Potassium, S 3.6 3.5 - 5.1 POWERCHART MMOLL Chloride, S 108 (H) 98 - 107 POWERCHART MMOLL CO2 Total 22 22 - 29 POWERCHART MMOLL Glucose 112 70 - 140 POWERCHART MGDL BUN (Blood Urea 10 6 - 24 POWERCHART Nitrogen), S MGDL Creatinine 0.6 0.5 - 1.0 POWERCHART MGDL Calcium, Total, S 8.3 (L) 8.6 - POWERCHART 10.2 MGDL Alkaline 103 35 - 105 POWERCHART Phosphatase, S UL Aspartate 21 0 - 32 UL POWERCHART Aminotransferase (AST), S Alanine 14 0 - 33 UL POWERCHART Amniotransferase, LD Bilirubin, Total, S 0.1 0.1 - 1.2 POWERCHART MGDL Anion Gap 10 7 - 15 POWERCHART MMOLL HXeGFR (MDRD) >60 >=60 POWERCHART Comment: Results are in mL/min/1.73m squared CKD Stage I: ? GFR > 90 CKD Stage II: ?GFR 60 to 89 CKD Stage III: ? GFR 30 to 59 CKD Stage IV: ? GFR 15 to 29 CKD Stage V: ?GFR < 15 or Dialysi s eGFR Black/ >60 >=60 PO WERCHART Specimen (Source) Anatomical Collection Method Collection Time Re ceived Time Location / / Volume Laterality Blood 08/19/2013 6:23 AM CDT Hernesto English M.D. LAB BLOOD ADD-ON Performing Organization Address City/State/ZIP Code Phon e Number POWERCHART CT Urogram without and with IV Contrast (2013 3:54 PM CDT) Anatomical Region Laterality Modality Abdomen, Pelvis N/A Computed Tomography Specimen (Source) Anatomical Collection Method Collection Time Re ceived Time Location / / Volume Laterality 2013 3:54 PM CDT Impressions 2013 4:32 PM CDT No acute findings. Narrative 2013 4:32 PM CDT EXAM: CT Urogram w/ + w/o contrast INDICATION: Urinary tract infection FINDINGS: CT examination of the abdomen and pelvis performed with and without IV contrast demonstrates no evid ence of urinary calculus or hydronephrosis. Kidneys ureters and blad blanca normal in appearance. Cholecystectomy. Liver pancreas and sple en normal in appearance. Lung bases are clear. Procedure Note Pedro Aguirre M.D. / ProviderHis karthik M.D. - 10/03/2016 EXAM: CT Urogram w/ + w/o contrast INDICATION: Urinary tract infection FINDINGS: CT examination of the abdomen and pelvis performed with and without IV contrast demonstrates no evid ence of urinary calculus or hydronephrosis. Kidneys ureters and blad blanca normal in appearance. Cholecystectomy. Liver pancreas and sple en normal in appearance. Lung bases are clear. IMPRESSION: No acute findings. Nery Turner R.T.(R)(CT), R.T.(R) IMG CT PROCEDURES ECG 12 Lead (2013 1:39 PM CDT) Specimen (Source) Anatomical Collection Method Collection Time Re ceived Time Location / / Volume Laterality 2013 1:39 PM CDT [facility] - 2013 1:39 PM CDT Test Reason : EKG Blood Pressure : / mmHG Vent. Rate : 101 BPM ? Atrial Rate : 101 BPM ?? P-R Int : 168 ms ?QRS D ur : 074 ms ?QT Int : 332 ms ? P-R-T Axe s : 054 065 041 degrees ?? QTc Int : 430 ms Sinus tachycardia Otherwise normal ECG No previous ECGs available Referred By: HERNESTO ENGLISH ? Confirmed By:YANETH CAPELLAN MD Procedure Note Provider, Willy Reddy - 10/14/2016F ormatting of this note might be different from the original. Test Reason : EKG Blood Pressure : / mmHG Vent. Rate : 101 BPM Atrial Rate : 101 B PM P-R Int : 168 ms QRS Dur : 074 ms QT Int : 332 ms P-R-T Axes : 054 065 04 1 degrees QTc Int : 430 ms Sinus tachycardia Otherwise normal ECG No previous ECGs available Referred By: HERNESTO ENGLISH Confirmed By: YANETH CAPELLAN MD Yaneth Capellan M.D., M.B. ECG ORDERABLES Performing Organization Address City/[facility] Phon e Number [facility] [address] [place] [id number] Lactate (2013 1:31 PM CDT) P athologist Signature Lactate, P 1.1 0.4 - 2.0 POWERCHART MMOLL Specimen (Source) Anatomical Collection Method Collection Time Re ceived Time Location / / Volume Laterality Blood 2013 1:31 PM CDT Hernesto English M.D. LAB BLOOD NON ADD-ON Performing Organization Address [facility] Code Phon e Number POWERCHART Bacterial Culture, Blood (2013 1:25 PM CDT) Patholo gist Method Time Signature Bacteria/Deborah POWERCHART da Culture, Blood HXPre No growth POWERCHART at 16 Hours HXPre No growth POWERCHART at 25 Hours HXFinal No growth POWERCHART at 5 days. Specimen (Source) Anatomical Collection Method Collection Time Re ceived Time Location / / Volume Laterality Blood 2013 1:25 PM CDT Hernesto English M.D. LAB MICROBIOLOGY - GENERAL O RDERABLES Performing Organization Address City/[facility]/ZIP Code Phon e Number POWERCHART Bacterial Culture, Blood (2013 1:00 PM CDT) Patholo gist Method Time Signature Bacteria/Deborah POWERCHART da Culture, Blood HXPre No growth POWERCHART at 16 Hours HXPre No growth POWERCHART at 25 Hours HXFinal No growth POWERCHART at 5 days. Specimen (Source) Anatomical Collection Method Collection Time Re ceived Time Location / / Volume Laterality Blood 2013 1:00 PM CDT Hernesto English M.D. LAB MICROBIOLOGY - GENERAL O RDERABLES Performing Organization Address City/State/ZIP Code Phon e Number POWERCHART Magnesium (2013 9:50 AM CDT) P athologist Signature Magnesium, S 1.8 1.7 - 2.3 POWERCHART MGDL Specimen (Source) Anatomical Collection Method Collection Time Re ceived Time Location / / Volume Laterality Blood 2013 9:50 AM CDT Hernesto English M.D. LAB BLOOD ADD-ON Performing Organization Address City/State/ZIP Code Phon e Number POWERCHART hCG ( Test), Augustus Chavis (2013 9:50 AM CDT) P athologist Signature HXBeta hCG Ql Negative Negative POWERCHART Specimen (Source) Anatomical Collection Method Collection Time Re ceived Time Location / / Volume Laterality Blood 2013 9:50 AM CDT Spike Gaspar M.D. LAB BLOOD ADD-ON Performing Organization Address City/[facility]/ZIP Code Phon e Number POWERCHART Lactate (2013 9:50 AM CDT) P athologist Signature Lactate, P 0.9 0.4 - 2.0 POWERCHART MMOLL Specimen (Source) Anatomical Collection Method Collection Time Re ceived Time Location / / Volume Laterality Blood 2013 9:50 AM CDT Spkie Gaspar M.D. LAB BLOOD NON ADD-ON Performing Organization Address City/State/ZIP Code Phon e Number POWERCHART Lipase (2013 9:50 AM CDT) P athologist Signature Lipase, S 22 13 - 60 UL POWERCHART Specimen (Source) Anatomical Collection Method Collection Time Re ceived Time Location / / Volume Laterality Blood 2013 9:50 AM CDT Spike Gaspar M.D. LAB BLOOD ADD-ON Performing Organization Address City/State/ZIP Code Phon e Number POWERCHART documented in this encounter Visit Diagnoses Not on filedocumented in this encounter
--- OUTSIDE RECORDS SUMMARY | 2022-03-06 07:13 | XMS_ITS | Encounter Summary ---
:1995 Author Organization [facility] Address [address] [place] [address] Care Team Providers Name Role Phone Unavailable Primary Care Provider Unavailable Encounter Details Date Type Department Care Team Description 02/16/2013 Hospital Encounter [facility] STEVE Rodrigo Issa M.D. 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 - 02/16/2013 3:30 PM CDT PPD Reading PPD Reading Entered On: 02/16/2013 15:30 CDT Performed On: 02/16/2013 15:30 CDT by ADIS WANG LPN PPD Reading MM of Induration : 0 mm PPD Interpretation : Negative PPD Placed On : Left inner forearm PPD Date/Time Administered : 02/14/2013 15:30 CDT ADIS WANG LPN - 02/16/2013 15:30 CDT Source: [facility] POWERCHART Document Id: [id number] CDT!6 documented in this encounter Plan of Treatment Upcoming Encounters Date Type Specialty Care Team Description 04/22/2022 Appointment Laboratory Medicine Meryl Julio M.D. [address] [place] [address] (Wo rk) 04/29/2022 Office Visit Endocrinology Meryl Julio M .D. [address] [place] [address] (Wo rk) documented as of this encounter Procedures Procedure Name Priority Date/Time Associated Diagnosis Comme nts HX TB SKIN TEST-LAB Routine 02/16/2013 3:30 PM Re sults for this CDT procedure are i n the results section. documented in this encounter Results HX TB SKIN TEST-LAB (02/16/2013 3:30 PM CDT) P athologist Signature TB Skin Test 0 MM POWERCHART TB Skin Test Negative POWERCHART Specimen (Source) Anatomical Collection Method Collection Time Re ceived Time Location / / Volume Laterality 02/16/2013 3:30 PM CDT Fadia Du D.O. LAB HISTORICAL ORDERS Performing Organization Address City/State/ZIP Code Phon e Number POWERCHART documented in this encounter Visit Diagnoses Not on filedocumented in this encounter
--- OUTSIDE RECORDS SUMMARY | 2022-03-06 07:13 | XMS_ITS | Encounter Summary ---
:1995 Author Organization [facility] Address [address] [place] [address] Care Team Providers Name Role Phone Unavailable Primary Care Provider Unavailable Encounter Details Date Type Department Care Team Description 05/12/2013 Hospital Encounter [facility] Neo Sheridan III, M.D. 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 - 05/12/2013 8:49 AM CST [id number] HISTORY OF PRESENT ILLNESS Flaquito is here because she complains of increasing anxiety. It seems to be centered around her finals, she has her last final today. 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 She has a history of anxiety in the past, and she says her mom has a historyof anxiety. She has tried some counseling in the past and brings up that she does not want to do more of that at this time. She did talk to her mom about her anxiety and her mom said that medication, which she thinks was Zoloft, worked well for her. She has also talked to her teachers about test taking anxiety, and one of her teachers recommended Xanax it sounded like. She does get a lot of palpitations, sweating, tremor prior to her tests. She is just on contraception, medroxyprogesterone now. Otherwise no other medications. She does from previous counseling know breathing techniques, meditation, prayer, and she has been trying to keep up with that. She is not a smoker. No alcohol use. No drug use. VITAL SIGNS Her temp is 36.4, pulse 80, respirations 20, blood pressure 110/60, weight 82.4 kg. PHYSICAL EXAMINATION GENERAL: She looks well. Her PHQ-9 was 3 and she definitely feels she is not depressed. Her CHASTITY-7 is7 and feels that things are somewhat difficult because of her anxiety. LUNGS: Clear. HEART: Regular rate and rhythm. Her thoughts are nice and coherent. Her speech is normal. NECK: Supple without adenopathy or thyromegaly. IMPRESSION/REPORT/PLAN Generalized anxiety brought on by situational finals. PLAN: She has agreed to try some sertraline, which I explained to her was the Zoloft. We talked about the side effects of weight gain, increase in agitation initially, nausea. We will start out with 25mg or half a tab for the 1st 8 days so she will break her 1st 4 tablets in half and then she will move to 50 mg and I will see her back in about 2 weeks to recheck her at that time. I am also going to give her a little propranolol 20 mg. she can try it a couple hours prior to test taking and see if this does help with some of those adrenaline symptoms. She is going to try it before the stakes are notso high like before a test to see how she tolerates it, and she will let me know when we get back tog ether again. Follow up any worsening, no improvement or complications. Neo Rios M.D./pos Electronically Signed By: NEO RIOS MD On: 05/24/2013 08:13 AM Source: [facility] MHSDOLBEYNONRADSYS Document Id: [id number] T COAT SANDER documented in this encounter Miscellaneous Notes Miscellaneous - Dottie Mauricio, C.M.A. - 05/13/2013 1:58 PM CST PHQ-9 PHQ-9 Entered On: 05/13/2013 13:59 FIRST COAT SANDER Performed On: 05/13/2013 13:58 FIRST COAT SANDER by DOTTIE MAURICIO PHQ-9 Little interest or pleasure in doing things : Not at all Feeling down, depressed, or hopeless : Not at all Trouble falling or staying asleep, or sleeping too much : Several days Feeling tired or having little energy : Several days Poor appetite or overeating : Several days Feeling bad about yourself or that you are a failure : Not at all Trouble concentrating on things : Not at all Moving or speaking slowly; restless or fidgety : Not at all Thoughts that you would be better off /hurting self : Not at all PHQ-9 Calculated Score : 3 Problems make work, home, or dealing with others : Not difficult at all DOTTIE MAURICIO - 05/13/2013 13:58 FIRST COAT SANDER Source: [employer] Document Id: [id number] FIRST COAT SANDER!13 T COAT SANDER Rafael - Dottie Mauricio, C.M.ASebastian - 05/12/2013 1:59 PM CST CHASTITY-7 CHASTITY-7 Entered On: 05/13/2013 13:59 FIRST COAT SANDER Performed On: 05/12/2013 13:59 FIRST COAT SANDER by DOTTIE MAURICIO GAD7 GAD7 Feeling nervous : Several days GAD7 Not able to control worry : Several days GAD7 Worrying too much : Several days GAD7 Trouble relaxing : Several days GAD7 Being so restless : Several days GAD7 Becoming easily annoyed : Several days GAD7 Feeling afraid : Several days GAD7 Total Score : 7 DOTTIE MAURICIO - 05/13/2013 13:59 FIRST COAT SANDER Source: [employer] Document Id: [id number] FIRST COAT SANDER!10 T COAT SANDER Mellcellkal - Neo Rios M.D. - 05/12/2013 9:24 AM CST Ambulatory Patient Summary [address] [address] Visit Information Name: FLAQUITO TURNER [facility] Number: [id number] Current Date: 05/12/2013 09:24:43 Physicians Attending Provider: NEO RIOS MD Primary Care Provider: CHRIS TOBIAS DO FLAQUITO TURNER has been given the following [...] Take Indications/Special Instructions/Comments/Notes for Patient Medication Changes/Routing medroxyPROGESTERone (Depo-Provera Contraceptive 150 mg/ml intramuscular suspension) 1 Milliliter, Intramuscular, every 90 days dysmenorrhea propranolol (propranolol 20 mg oral tablet) See Instructions 1 tab(s) PO 2 hours prior to test taking New Routed to [place] [id number] sertraline (sertraline 50 mg oral tablet) 1 Tablet(s), Oral, once a day take 1/2 tab for 8 days thenwhole tab New Routed to [address] [address] Stop Taking the Following Medications: Medication list as of 05-12-13 09:24 Attention: If you have any medications at home that are not on this list, DO NOT take them until youcontact your provider for clarification. Give a copy of your medication list to your primary care provider. Update your medication list any time medications or doses are changed and carry your medication list at all times in case of emergency. Your Allergies & Intolerances Substance Reaction Symptoms Category Comments No Known Allergies Drug Your Problem List Problem Status Onset Comments Abdominal pain - Unspecified site Active Elevated Liver Enzymes Active Dysmenorrhea Active 07/01/2010 Other Specified Counseling Active Spasm of Sphincter of Oddi Active 03/04/2011 Your Upcoming Appointments Date Time Location Reason Provider No Appointments found Attention: Contact your local Clinic if further appointment detail needed. Your Goals/Additional instructions: Source: [facility] POWERCHART Document Id: [id number] T COAT SANDER Miscellaneous - Neo Rios M.D. - 05/12/2013 9:24 AM CST Ambulatory Depart Summary [address] [address] Visit Information Name: FLAQUITO TURNER [facility] Number: [id number] Visit Date: 05/12/2013 09:24:42 Attending Provider: NEO RIOS MD Primary Care Provider: CHRIS TOBIAS DO YUEFLAQUITO MARTIN has been given the following list of medications: Your Medications It is important to take your medications as directed. Use a pill box or chart to help remind you to take your medications. Please let your doctor or nurse know if you have problems taking your medications. Medication/Strength How to Take Indications/Special Instructions/Comments/Notes for Patient Medication Changes/Routing medroxyPROGESTERone (Depo-Provera Contraceptive 150 mg/ml intramuscular suspension) 1 Milliliter, Intramuscular, every 90 days dysmenorrhea propranolol (propranolol 20 mg oral tablet) See Instructions 1 tab(s) PO 2 hours prior to test taking New Routed to [address] [id number] sertraline (sertraline 50 mg oral tablet) 1 Tablet(s), Oral, once a day take 1/2 tab for 8 days thenwhole tab New Routed to [address] [address] Stop Taking the Following Medications: Medication list as of 05-12-13 09:24 Attention: If you have any medications at home that are not on this list, DO NOT take them until youcontact your provider for clarification. Give a copy of your medication list to your primary care provider. Update your medication list any time medications or doses are changed and carry your medication list at all times in case of emergency. Additional Information: Source: [facility] POWERCHART Document Id: [id number] T COAT SANDER Miscellaneous - Dottie Mauricio C.M.A. - 05/12/2013 8:59 AM CST Adult Land Law Examiner Intake/History Adult Land Law Examiner Intake/History Entered On: 05/12/2013 9:01 FIRST COAT SANDER Performed On: 05/12/2013 8:59 FIRST COAT SANDER by DOTTIE MAURICIO Intake Chief Complaint : anxiety check Temperature Core : 36.4 DegC(Converted to: 97.5 DegF) (LOW) Peripheral Pulse Rate : 80 /min Respiratory Rate : 20 /min Heart Rhythm : Regular Systolic Blood Pressure : 110 mmHg Diastolic Blood Pressure : 60 mmHg NIBP Mean : 77 mmHg BP Location : Right upper extremity Blood Pressure Cuff Size : Regular Actual Weight : 82.4 kg(Converted to: 181 lb 11 oz) Weight Source : Standing scale Dosing Weight Clinic : 82.4 kg DOTTIE MAURICIO - 05/12/2013 8:59 FIRST COAT SANDER General Info Information Given By : Patient Preferred Communication Mode : Verbal Languages : Telugu DOTTIE MAURICIO - 05/12/2013 8:59 FIRST COAT SANDER Subjective Pain Symptoms : No DOTTIE MAURICIO - 05/12/2013 8:59 FIRST COAT SANDER Dependent Habits Tobacco Use/Currently Using : No Smoking Status : Never smoker DOTTIE MAURICIO - 05/12/2013 8:59 FIRST COAT SANDER Tobacco Use Grid Last Use : never DOTTIE MAURICIO - 05/12/2013 8:59 FIRST COAT SANDER Alcohol Use : No DOTTIE MAURICIO - 05/12/2013 8:59 FIRST COAT SANDER Caffeine Use Grid Caffeine Use : Current Type : Soft drinks Frequency : Daily Amount : 1 DOTTIE MAURICIO - 05/12/2013 8:59 FIRST COAT SANDER Recreational Drug Use Grid Drug Use : None DOTTIE MAURICIO - 05/12/2013 8:59 FIRST COAT SANDER [facility] POWER[facility]ART Document Id: [id number] FIRST COAT SANDER!37 T COAT SANDER documented in this encounter Plan of Treatment Upcoming Encounters Date Type Specialty Care Team Description 04/22/2022 Appointment Laboratory Medicine Meryl Julio M.D. [address] [place] [phone] (Wo rk) 04/29/2022 Office Visit Endocrinology Meryl Julio M .D. [address] [place], [place] [address] (Wo rk) documented as of this encounter Visit Diagnoses Not on filedocumented in this encounter Additional Health Concerns Assessment Noted Time PHQ-9 Depression Total Score: 3 05/13/2013 1:58 PM FIRST COAT SANDER documented as of this encounter
--- OUTSIDE RECORDS SUMMARY | 2022-03-06 07:13 | XMS_ITS | Encounter Summary ---
:1995 Author Organization [facility] Address [address] [place] [address] Care Team Providers Name Role Phone Unavailable Primary Care Provider Unavailable Encounter Details Date Type Department Care Team Description 04/22/2013 Hospital Encounter [facility]X [facility] Jerry Durand M.D. 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 documented as of this encounter Last Filed Vital Signs Vital Sign Reading Time Taken Comments Blood Pressure 124/76 04/22/2013 3:30 PM MACHINIST GENERAL Pulse - - Temperature - - Respiratory Rate - - Oxygen Saturation - - Inhaled Oxygen Concentration - - Weight 80.6 kg (177 lb 11.1 oz) 04/22/2013 3:30 PM MACHINIST GENERAL Height - - Body Mass Index 28.39 08/27/2012 9:18 AM CDT documented in this encounter Procedure Notes Adis Burks L.PSebastianNSebastian - 04/22/2013 3:30 PM CST Depo-Provera Administration Depo-Provera Administration Entered On: 04/22/2013 15:31 MACHINIST GENERAL Performed On: 04/22/2013 15:30 MACHINIST GENERAL by ADIS WANG LPN Depo-Provera Administration Annual Exam in the Past 12 Months : Yes Last Depo-Provera Given : 02/01/2013 CDT Needs test : No ADIS WANG LPN - 04/22/2013 15:30 MACHINIST GENERAL Vitals/Ht/Wt Systolic Blood Pressure : 124 mmHg Diastolic Blood Pressure : 76 mmHg NIBP Mean : 92 mmHg Actual Weight : 80.6 kg(Converted to: 177 lb 11 oz) Dosing Weight Clinic : 80.6 kg ADIS WANG LPN - 04/22/2013 15:30 MACHINIST GENERAL Source: [facility] POWERCHART Document Id: [id number] MACHINIST GENERAL!11 INIST GENERAL documented in this encounter Plan of Treatment Upcoming Encounters Date Type Specialty Care Team Description 04/22/2022 Appointment Laboratory Medicine Meryl Julio M.D. [address] [place] [phone] (Wo rk) 04/29/2022 Office Visit Endocrinology Meryl Julio M .D. [address] [place], [place] [address] (Wo rk) documented as of this encounter Visit Diagnoses Not on filedocumented in this encounter
--- OUTSIDE RECORDS SUMMARY | 2022-03-06 07:13 | XMS_ITS | Encounter Summary ---
:1995 Author Organization [facility] Address [address] [place] [address] Care Team Providers Name Role Phone Unavailable Primary Care Provider Unavailable Encounter Details Date Type Department Care Team Description 03/02/2013 Hospital Encounter HX [facility] MICHAELA Aguilera in C, D.O. 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 [address] [place], [place] [address] (Hector martin) 04/29/2022 Office Visit Endocrinology Meryl Julio M .D. [address] [place], [place] [address] (Hector martin) documented as of this encounter Visit Diagnoses Not on filedocumented in this encounter
--- OUTSIDE RECORDS SUMMARY | 2022-03-06 07:13 | XMS_ITS | Encounter Summary ---
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 - 03/04/2013 12:06 PM CDT PPD Reading PPD Reading Entered On: 03/04/2013 12:06 CDT Performed On: 03/04/2013 12:06 CDT by ADIS WANG LPN PPD Reading MM of Induration : 0 mm PPD Interpretation : Negative PPD Placed On : Right inner forearm PPD Date/Time Administered : 03/02/2013 12:00 CDT ADIS WANG LPN - 03/04/2013 12:06 CDT Source: [facility] POWERCHART Document Id: [id number] CDT!6 documented in this encounter Plan of Treatment Upcoming Encounters Date Type Specialty Care Team Description 04/22/2022 Appointment Laboratory Medicine Meryl Julio M.D. [address] [place] [address] 5600 (Wo rk) 04/29/2022 Office Visit Endocrinology Meryl Julio M .D. [address] [place] [address] 5600 (Wo rk) documented as of this encounter Procedures Procedure Name Priority Date/Time Associated Diagnosis Comme nts HX TB SKIN TEST-LAB Routine 03/04/2013 12:06 PM R esults for this CDT procedure are i n the results section. documented in this encounter Results HX TB SKIN TEST-LAB (03/04/2013 12:06 PM CDT) P athologist Signature TB Skin Test 0 MM POWERCHART TB Skin Test Negative POWERCHART Specimen (Source) Anatomical Collection Method Collection Time Re ceived Time Location / / Volume Laterality 03/04/2013 12:06 PM CDT Jerry Patterson M.D. LAB HISTORICAL ORDERS Performing Organization Address City/State/ZIP Code Phon e Number POWERCHART documented in this encounter Visit Diagnoses Not on filedocumented in this encounter
--- OUTSIDE RECORDS SUMMARY | 2022-03-06 07:13 | XMS_ITS | Encounter Summary ---
:1995 Author Organization [facility] Address [address] [place] [address] Care Team Providers Name Role Phone Unavailable Primary Care Provider Unavailable Encounter Details Date Type Department Care Team Description 2013 Hospital Encounter HX [facility] MICHAELA Jett, And sara Conde APRN, STEAM [employer]ER FILL[employer]-BC, 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 HISTORY OF PRESENT ILLNESS Flaquito is a pleasant 18-year-old female who presents to clinic today with abdominal pain. She currently rates the pain at 10/10, and states it is the worst pain she has ever experienced. She states that yesterday she started to have back pain and actually went to a chiropractor thinking that her back needed adjusted. It just got worse after that. She now feels like she has a kidney infection, as she has had this before. She also denies upper abdominal pain and bloating. 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 This was performed in [place]. I did review [facility] records regarding this. She does have a history of intermittent abdominal pain but none since 2011. Previously, her liver enzymes were elevated. She states that the pain that she is experiencing today is worse thaneven the spasm pain that she had before. She is wondering if this could all be related to a urinary tract infection. She is complaining of foul smelling urine, dysuria and a burning sensation. She did h ave a fever of 101.4 last night. She denies any changes in bowel movements. MEDICATIONS Depo-Provera contraception. Sertraline. Propranolol 20 mg as needed for anxiety. ALLERGIES No known medication allergies. 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 Records are available on [facility]. SOCIAL HISTORY Denies any tobacco or alcohol use. VITAL SIGNS Temperature is 36.4, heart rate is 140, blood pressure is 134/72, weight is 86.5 kg. PHYSICAL EXAMINATION GENERAL: Alert and oriented female who appears in distress. She is hunched over in pain. ABDOMEN: She was very reluctant to get on the exam table due to pain. She did lay down with help. With palpation of the upper abdomen, this revealed discomfort. Rebound pain was also noted. Lower abdominal pain was not elicited. Positive for CVA tenderness. DIAGNOSTICS: Urinalysis revealed trace leukocyte esterase, 4 to 10 WBCs, trace bacteria, 2+ mucous and 2+ epitheliocytes. Culture is pending. CBC was unremarkable. Culture of urine will be done. IMPRESSION/REPORT/PLAN 1. Abdominal pain, not otherwise specified. 2. Urinary tract infection. PLAN: 1. Given the amount of pain that this patient is in, I am going to have her evaluated in the emergency room. Further testing will be decided. A CMP was done here in the office as well and is currently pending. 2. In terms of her urinary tract infection, this certainly could be contaminant. However, a culture will be done as well. Further treatment will be based on culture results. A prescription for ciprofloxacin 500 mg twice daily was sent prior to the decision to be sent to the emergency room. The patientdid speak with her mother during our visit, and mother is going to meet her in the emergency room. Flaquito feels comfortable with driving herself to the emergency room. ADMINISTRATIVE BILLING Total time is 15 minutes. Counseling time is 10. Edu Jett, Juan Manuel.N.PSebastian/pos Electronically Signed By: EDU JETT CNP On: 08/25/2013 12:42 PM Source: [facility] MHSDOLBEYNONRADSYS Document Id: [id number] documented in this encounter Miscellaneous Notes Miscellaneous - Edu Jett, CSebastianNSebastianP. - 2013 1:02 PM CDT Ambulatory Patient Summary [address] [id number] Visit Information Name: FLAQUITO TURNER [facility] Number: [id number] Current Date: 2013 13:02:02 Physicians Attending Provider: EDU JETT CNP Primary Care Provider: CHRIS TOBIAS DO JOSE ARMANDO TURNERA MARTIN has been given the following list [...] Following Medications: Medication list as of 08-18-13 13:02 Attention: If you have any medications at [...] appointment detail needed. Your Goals/Additional instructions: Source: [facility] POWERCHART Document Id: [id number] Miscellaneous - Edu Jett, C.N.P. - 2013 1:02 PM CDT Ambulatory Discharge Medication List [address] [id number] Visit Information Name: FLAQUITO TURNER [facility] Number: [id number] Visit Date: 2013 13:02:01 Attending Provider: EDU JETT [facility] Primary Care Provider: CHRIS TOBIAS DO FLAQUITO [...] Following Medications: Medication list as of 08-18-13 13:02 Attention: If you have any medications at home that are not on this list, DO NOT take them until youcontact your provider for clarification. Give a copy of your medication list to your primary care provider. Update your medication list any time medications or doses are changed and carry your medication list at all times in case of emergency. Additional Information: Source: [facility] [employer] Document Id: [id number] Rafael - Mackenzie Parker L.P.N. - 2013 8:09 AM CDT Ambulatory Vitals Height Weight Ambulatory Vitals Height Weight Entered On: 2013 8:09 CDT Performed On: 2013 8:09 CDT by MACKENZIE FARIA Vitals/Ht/Wt Heart Rhythm : Regular Systolic Blood Pressure : 134 mmHg Diastolic Blood Pressure : 74 mmHg NIBP Mean : 94 mmHg BP Location : Right upper extremity Blood Pressure Cuff Size : Large MACKENZIE FARIA - 2013 8:09 CDT [facility] Document Id: [id number] CDT!8 Rafael - Mackenzie Parker L.P.N. - 2013 8:04 AM CDT Adult Group Care Worker Intake/History Adult Group Care Worker Intake/History Entered On: 2013 8:07 CDT Performed On: 2013 8:04 CDT by MACKENZIE FARIA Intake Chief Complaint : Abdominal swelling and pain, lower back (kidney area) pain since yesterday Ambulatory Intake Additional Information : Went to the chiropractor yesterday to see if it would help, and now feels like a rib is broken Temperature Core : 36.4 DegC(Converted to: 97.5 DegF) (LOW) Peripheral Pulse Rate : 140 /min (HI) Heart Rhythm : Regular Systolic Blood Pressure : 134 mmHg Diastolic Blood Pressure : 72 mmHg NIBP Mean : 93 mmHg BP Location : Right upper extremity Blood Pressure Cuff Size : Regular Actual Weight : 86.5 kg(Converted to: 190 lb 11 oz) Weight Source : Standing scale Dosing Weight Clinic : 86.5 kg MACKENZIE FARIA 2013 8:04 CDT General Info Information Given By : Patient Preferred Communication Mode : Verbal Languages : Swedish MACKENZIE FARIA 2013 8:04 CDT Subjective Pain Symptoms : Yes MACKENZIE FARIA 2013 8:04 CDT Pain Pain Assessment Grid Pain 1 Pain 2 Location : Abdomen (Comment: swollen [MACKENZIE FARIA 2013 8:04 CDT] ) Lower back Intensity : 7 8 MACKENZIE FARIA 2013 8:04 CDT MACKENZIE FARIA 2013 8:04 CDT Dependent Habits Tobacco Use/Currently Using : No Smoking Status : Never smoker MACKENZIE FARIA 2013 8:04 CDT Tobacco Use Grid Last Use : never MACKENZIE FARIA 2013 8:04 CDT Caffeine Use Grid Caffeine Use : Current Type : Soft drinks Frequency : Daily Amount : 1 MACKENZIE FARIA 2013 8:04 CDT Recreational Drug Use Grid Drug Use : None MACKENZIE FARIA 2013 8:04 CDT [facility] Document Id: [id number] CDT!44 documented in this encounter Plan of Treatment Upcoming Encounters Date Type Specialty Care Team Description 04/22/2022 Appointment Laboratory Medicine Meryl Julio M.D. [address] [place] [address] (Hector martin) 04/29/2022 Office Visit Endocrinology Meryl Julio M .D. [address] [place] [address] (Hector martin) documented as of this encounter Procedures Procedure Name Priority Date/Time Associated Comments Diagnosis AUTOMATED Routine 2013 8:48 AM Results f or this DIFFERENTIAL, B CDT procedure ar e in the results section. CBC WITH DIFFERENTIAL, Routine 2013 8:48 AM Results for this B CDT procedure are i n the results section. COMPREHENSIVE Routine 2013 8:48 AM Results for this METABOLIC PANEL, S/P CDT procedu re are in the results section. HXUR % DYSMORPHIC RBC Routine 2013 8:04 AM Results for this CDT procedure are i n the results section. URINALYSIS, ROUTINE Routine 2013 8:04 AM Re sults for this CDT procedure are i n the results section. URINE MICROSCOPIC Routine 2013 8:04 AM Resu lts for this CDT procedure are i n the results section. BACTERIAL CULTURE, Routine 2013 8:04 AM Res ults for this AEROBIC, URINE CDT procedure are in the results section. documented in this encounter Results (ABNORMAL) Automated Differential (2013 8:48 AM CDT) Patholo gist Method Time Signature HXGranulo 8.4 (H) 1.5 - 7.5 POWERCHART Absolut Lymphocytes 0.70 (L) 0.90 - POWERCHART 2.90 X109L Monocytes 00.4 0.3 - 0.9 POWERCHART KMM3 Specimen Anatomical Collection Method Collection Time Receive d Time (Source) Location / / Volume Laterality Blood 2013 8:48 AM 4 8:48 CDT AM CDT Edu Jett APRN, [employer] F[employer]ING-BC, R.N. LAB BLOOD ADD-ON Performing Organization Address City/State/ZIP Code Phon e Number POWERCHART CBC with Differential (2013 8:48 AM CDT) P athologist Signature Leukocytes 9.5 3.4 - 10.5 POWERCHART X109L Erythrocytes 4.81 3.90 - POWERCHART 5.03 [id number] Hemoglobin 14.9 12.0 - POWERCHART 15.5 GDL Hematocrit 44.5 34.9 - POWERCHART 44.5 MCV 92.5 82.0 - POWERCHART 98.0 FL HX RDW 12.1 11.9 - POWERCHART 15.5 Platelet Count 273 150 - 450 POWERCHART X109L HXDifferential? Auto POWERCHART Specimen (Source) Anatomical Collection Method Collection Time Re ceived Time Location / / Volume Laterality Blood 2013 8:48 AM CDT EARL Maynard APRN, R.N. LAB BLOOD ADD-ON Performing Organization Address City/State/ZIP Code Phon e Number POWERCHART (ABNORMAL) CMP (Comprehensive Metabolic Panel) (2013 8:48 AM CDT) [facility] gist Method Time Signature Total Protein, S 7.2 6.3 - 7.9 POWERCHART GDL Albumin, S 4.3 3.5 - 5.2 POWERCHART GDL Sodium, S 138 135 - 145 POWERCHART MMOLL Potassium, S 4.2 3.5 - 5.1 POWERCHART MMOLL Chloride, S 104 98 - 107 POWERCHART MMOLL CO2 Total 20 (L) 22 - 29 POWERCHART MMOLL Glucose 107 70 - 140 POWERCHART MGDL BUN (Blood Urea 15 6 - 24 POWERCHART Nitrogen), S MGDL Creatinine 0.6 0.5 - 1.0 POWERCHART MGDL Calcium, Total, S 9.4 8.6 - POWERCHART 10.2 MGDL Alkaline 154 (H) 35 - 105 POWERCHART Phosphatase, S UL Aspartate 14 0 - 32 UL POWERCHART Aminotransferase (AST), S Alanine 19 0 - 33 UL POWERCHART Amniotransferase, LD Bilirubin, Total, S 0.3 0.1 - 1.2 POWERCHART MGDL Anion Gap 15 7 - 15 POWERCHART MMOLL HXeGFR (MDRD) [...] Location / / Volume Laterality Blood 2013 8:48 AM CDT EARL Maynard APRN, R.N. LAB BLOOD ADD-ON Performing Organization Address City/[facility]/ZIP Code Phon e Number POWERCHART HXUR % DYSMORPHIC RBC (2013 8:04 AM CDT) athologist Signature Dysmorphic RBC <=25 <=25 POWERCHART Specimen Anatomical Collection Method Collection Time Receive d Time (Source) Location / / Volume Laterality Urine 2013 8:04 AM 4 8:04 CDT AM CDT Edu EARL Ocampo APRN, R.N. LAB HISTORICAL ORD ERS Performing Organization Address City/[facility] Code Phon e Number POWERCHART (ABNORMAL) Urine Microscopic (2013 8:04 AM CDT) [facility] Method Time Signature HXUr WBC 4-10 POWERCHART Red Blood Cell 3-10 Occ-2 POWERCHART Clump, Urine HXUr Epithelial 2+ (A) Negative POWERCHART HXUr Bacteria Trace Negative POWERCHART Crystals None Seen POWERCHART HX Ur Casts None Seen 0 - 2 POWERCHART HX MUCOUS 2+ (A) Negative POWERCHART THREADS Specimen Anatomical Collection Method Collection Time Receive d Time (Source) Location / / Volume Laterality Urine 2013 8:04 AM 4 8:04 CDT AM CDT Edu Conde EARL Jett APRN, R.N. LAB URINE ORDERABL ES Performing Organization Address [facility] Phon e Number POWERCHART (ABNORMAL) Urinalysis, Routine (2013 8:04 AM CDT) [facility] Method Time Signature Source Clean Void POWERCHART Urine HXUr Color Yellow Yellow POWERCHART Appearance Clear Clear POWERCHART Specific >=1.030 (A) 1.000 - POWERCHART [place], POCT, U 1.030 pH, POCT, Urine 5.5 5.0 - 9.0 POWERCHART Protein, Ur, Dip 30 (A) Negative POWERCHART Glucose Negative Negative POWERCHART Ketones, QL(U) Negative Negative POWERCHART HXBILIRUBIN Negative Negative POWERCHART HXBLOOD Negative Negative POWERCHART Leukocyte Trace (A) Negative POWERCHART Esterase HXNITRITE Negative Negative POWERCHART Urobilinogen 0.2 0.1 - 2.0 POWERCHART Specimen (Source) Anatomical Collection Method Collection Time Re ceived Time Location / / Volume Laterality Urine 2013 8:04 AM CDT Edu Jett APRN, [employer] F[employer]ING-BC, R.N. LAB URINE ORDERABL ES Performing Organization Address City/State/ZIP Code Phon e Number POWERCHART Bacterial Culture, Aerobic, Urine (2013 8:04 AM CDT) [facility] gist Method Time Signature Bacterial POWERCHART Culture, Aerobic, Urine HXFinal Mixed jovanna. No POWERCHART further studies unless notified. HXFinal [place] POWERCHART Microbiology laboratory [phone] Specimen (Source) Anatomical Collection Method Collection Time Re ceived Time Location / / Volume Laterality Urine, Clean 2013 8:04 AM Catch CDT Hernesto English M.D. LAB MICROBIOLOGY - GENERAL O RDERABLES Performing Organization Address City/State/ZIP Code Phon e Number POWERCHART documented in this encounter Visit Diagnoses Not on filedocumented in this encounter
--- OUTSIDE RECORDS SUMMARY | 2022-03-06 07:13 | XMS_ITS | Encounter Summary ---
:1995 Author Organization [facility] Address [address] [place] [address] Care Team Providers Name Role Phone Unavailable Primary Care Provider Unavailable Encounter Details Date Type Department Care Team Description 07/28/[address] [facility] RESIDENTS Chase, Nelson C , [...] How often do you attend quaker or mu-ism More than 4 time s [...] at Date Recorded Female 06/21/2021 12:52 PM ADJUNCT SPANISH INSTRUCTOR documented as of this encounter Last Filed Vital Signs Vital Sign Reading Time Taken Comments Blood Pressure 126/72 07/28/2014 9:05 AM ADJUNCT SPANISH INSTRUCTOR Pulse 98 07/28/2014 9:05 AM ADJUNCT SPANISH INSTRUCTOR Temperature - - Respiratory Rate - - Oxygen Saturation - - Inhaled Oxygen Concentration - - Weight 104 kg (229 lb 8 oz) 07/28/2014 9:05 AM ADJUNCT SPANISH INSTRUCTOR Height 168 cm (5' 6.14) 07/28/2014 8:50 AM ADJUNCT SPANISH INSTRUCTOR Body Mass Index 36.88 07/28/2014 8:50 AM ADJUNCT SPANISH INSTRUCTOR documented in this encounter Progress Notes Chris Aguilera D.O. - 07/28/2014 8:49 AM CST [id number] CLINIC PRECEPTOR NOTE CHIEF COMPLAINT/REASON FOR VISIT Contraception and warts. HISTORY OF PRESENT ILLNESS This is a 18-year-old, who presents to Dr. Stone for the above-mentioned concerns. She is requesting reinitiation of Depo-Provera, which she has been on in the past. She also has 3 warts on her heel. I was present for cryotherapy today. IMPRESSION/REPORT/PLAN 1. Contraception counseling and initiation 2. Plantar warts x3, with cryotherapy. I was present for the evaluation. Chris Aguilera D.O./pos Electronically Signed By: CHRIS AGUILERA DO On: 08/07/2014 09:25 AM Source: [facility] MHSDOLBEYNONRADSYS Document Id: [id number] Nelson Stone D.O. - 07/28/2014 8:49 AM CST [id number] Please note, this patient is precepted to Dr. Chris Aguilera. She is also seen by Dr. Chris Aguilera. CHIEF COMPLAINT/REASON FOR VISIT Plantar wart on right foot. Also discussion of control. HISTORY OF PRESENT ILLNESS Flaquito is a 18-year-old female with significant past medical history of sphincter of Oddi syndrome, recurring abdominal pain, and dysmenorrhea, who presented today to the [facility] with the above chief complaint. She notes that the plantar warts have been present for about the last 2 to 3 months. She does note that they are on her right foot on the bottom of her foot. She has had previous warts on the left foot, which have been treated. She presents today for treatment of these warts on thefoot. She notes that there are at least 2 sites that are bothering her today. She has not tried hometechniques medically. She has tried using duct tape. Patient also wishes today to discuss control. She notes that in the past, she had been on Depo-Provera, but had been told by her nurse practitioner, that she cannot be on Depo-Provera for more than 2 years because it causes decreased bone mass. She was then also on oral control for a period of time, but currently is not on any control at all. Her last menstrual period that she knowsof for certainty was on July 05, 2014. She believes roughly 2 weeks ago, she did have a small period. She wonders today if she could try the Depo- Provera again or if she should be on an oral control. She is currently not sexually active. Her last intercourse was May of 2013. She has no concerns about STDs or STIs. She does state her periods are roughly 5 to 6 days long and normal flow every 28 days. Her last Pap was done in 2013 and was completely negative. She did have a Pap smear performed at an outside facility because of concerns about endometriosis. SYSTEMS REVIEW A 12 review of systems was conducted, negative unless noted above in the HPI. ALLERGIES CIPROFLOXACIN. VITAL SIGNS Temperature 36.1 heart rate 98, respiratory rate 14, blood pressure 126/72, weight 104.1 kg. PHYSICAL EXAMINATION GENERAL: Obese appearing 18-year-old female, appears in no acute distress. Alert and oriented x3. HEENT: Oral mucosa is moist and pink. Nares are patent. Pupils equal, round, react to light and accommodation. Extraocular muscles are intact bilaterally. Tympanic membranes are visualized. Normal coneof light. There is no TM erythema or bulge. NECK: Supple. No JVD. No thyromegaly. No lymphadenopathy. HEART: Regular rate and rhythm. S1, S2 noted. No murmurs, gallops, or rubs. Lungs: Clear to auscultation bilaterally. Good breath sounds. No wheezes, rales, or rhonchi. ABDOMEN: Soft. Bowel sounds are present in all 4 quadrants. SKIN: Significant for plantar warts roughly 0.5 cm in size on the head of the 4th and 5th metatarsals. She does have 2 lesions there. She also has a single 0.5-cm lesion over the midfoot at the calcaneus, as well as 2 other small lesions roughly 2 mm in size near this lesion on the calcaneus for totalof 5 plantar warts. PROCEDURE PERFORMED: Plantar wart destruction performed in office today. I did pare down the wart with a 14 blade scalpel. Before paring down, I did clean the area with rubbing alcohol. Then, I did pare down with 14 blade scalpel. The lesion was then destroyed with liquid nitrogen spray with a 10 to 15 second burst with good crystallization of the skin. I allowed it to thaw completely and readministered liquid nitrogen for 3 total cycles to each lesion site. Following the treatment, I did cover withbandage. Patient tolerated procedure quite well. DIAGNOSTIC DATA REVIEWED: A hCG urine was negative. IMPRESSION/REPORT/PLAN 1. Plantar warts with destruction. I did destroy these lesions in office today. There were 5 of them in total with liquid nitrogen. I will have patient follow up in 2 weeks time for re-destruction of lesions since they likely will take time given the fact that they are plantar in nature and often are very difficult to treat. I did discuss this with the patient and she understands this and also follow-up care and outpatient infection signs and symptoms. 2. Contraception discussion. I did discuss with the patient today her options for contraception. If she does elect to go with medroxyprogesterone, Depo-Provera injection today. I will have my nursing staff. Provide her with 150 mg IM Depo-Provera. Prior to the Depo-Provera, I did collect a urine test which was negative. Also, in office today I did collect a chlamydia and gonorrhea urine sample which results will be sent to the patient once they are completed. Nelson Stone D.O./pos cc: Chris Aguilera D.O. [facility] in [place] [address] [place] [address] Electronically Signed By: NELSON STONE DO On: 08/02/2014 11:39 AM Modified by and Electronically Signed by: NELSON STONE DO On: 08/02/2014 11:39 AM Source: [facility] MHSDOLBEYNONRADSYS Document Id: [id number] documented in this encounter Procedure Notes Mackenzie Denton C.MAnup - 07/28/2014 12:00 PM CST Depo-Provera Administration Depo-Provera Administration Entered On: 07/28/2014 12:01 ADJUNCT SPANISH INSTRUCTOR Performed On: 07/28/2014 12:00 ADJUNCT SPANISH INSTRUCTOR by MACKENZIE DENTON Depo-Provera Administration Annual Exam in the Past 12 Months : Yes Needs test : Yes Urine Test : Negative MACKENZIE DENTON - 07/28/2014 12:00 ADJUNCT SPANISH INSTRUCTOR Source: [facility] POWERCHART Document Id: [id number] ADJUNCT SPANISH INSTRUCTOR!5 NCT SPANISH INSTRUCTOR documented in this encounter Miscellaneous Notes Miscellaneous - Nelson Stone D.O. - 08/02/2014 4:21 PM CDT Normal Results Letter 02 August 2014 FLAQUITO TURNER [address] [place] [id number] Dear FLAQUITO TURNER, I am pleased to report that your results from the following diagnostic test(s) are normal. Please follow up with us as we discussed during your visit or sooner if you have any concerns. If you have questions or concerns, please do not hesitate to call our office. Result Name Current Result Chlamydia DNA Probe Review 07/28/2014 GC by Nucleic Acid Amplification 07/28/2014 Sincerely, NELSON HONL [address] [place] [address] Electronic Signature Electronically Signed By: NELSON STONE DO On: 02 August 2014 This document has images extracted. Source: [facility] UdemyCHART Document Id: [id number] Electronically signed by Conversion, [facility] Channel Marketing Manager [id number] at 10/20/2016 3:31 PM CDT Miscellaneous - Nelson Stone, D.OSebastian - 08/02/2014 4:21 PM CDT Normal Results Letter 02 August 2014 FLAQUITO TURNER [address] [place] [id number] Dear FLAQUITO TURNER, I am pleased to report that your results from the following diagnostic test(s) are normal. Please follow up with us as we discussed during your visit or sooner if you have any concerns. If you have questions or concerns, please do not hesitate to call our office. Result Name Current Result GC DNA Probe Review 07/28/2014 Chlamydia by Nucleic Acid Amplification 07/28/2014 Sincerely, NELSON CASTILLOL [address] [place] [address] Electronic Signature Electronically Signed By: NELSON STONE DO On: 02 August 2014 This document has images extracted. Source: [facility] UdemyCHART Document Id: [id number] Electronically signed by Conversion, [facility] Channel Marketing Manager [id number] at 10/20/2016 3:31 PM CDT Miscellaneous - Mackenzie Denton, C.M.A. - 07/28/2014 9:05 AM CST Adult [employer] Washer Intake/History Adult [employer] Washer Intake/History Entered On: 07/28/2014 9:08 ADJUNCT SPANISH INSTRUCTOR Performed On: 07/28/2014 9:05 ADJUNCT SPANISH INSTRUCTOR by MACKENZIE DENTON Intake Chief Complaint : Planter wart on right foot and discuss control options Temperature Core : 36.1 DegC(Converted to: 97.0 DegF) (LOW) Peripheral Pulse Rate : 98 /min Heart Rhythm : Regular Systolic Blood Pressure : 126 mmHg Diastolic Blood Pressure : 72 mmHg NIBP Mean : 90 mmHg BP Location : Right upper extremity Blood Pressure Cuff Size : Large Actual Weight : 104.1 kg(Converted to: 229 lb 8 oz) Weight Source : Standing scale Dosing Weight Clinic : 104.1 kg TONO MACKENZIE 07/28/2014 9:05 ADJUNCT SPANISH INSTRUCTOR General Info Information Given By : Patient Languages : Nigerien Is Patient Female and 13-50 no hysterectomy : Yes Status : Patient denies Are you ? : No MACKENZIE DENTON 07/28/2014 9:05 ADJUNCT SPANISH INSTRUCTOR Subjective Pain Symptoms : Yes MACKENZIE DENTON 07/28/2014 9:05 ADJUNCT SPANISH INSTRUCTOR Pain Scale Pain Scale Verbal 0-10 : Open TONO MACKENZIE 07/28/2014 9:05 ADJUNCT SPANISH INSTRUCTOR Pain Pain Assessment Grid Pain 1 Location : Foot Laterality : Right Intensity : 0 Comment : when walks 7 MACKENZIE DENTON 07/28/2014 9:05 ADJUNCT SPANISH INSTRUCTOR Dependent Habits Tobacco Use/Currently Using : No Smoking Status : Never smoker MACKENZIE DENTON 07/28/2014 9:05 ADJUNCT SPANISH INSTRUCTOR Tobacco Use Grid Last Use : never MACKENZIE DENTON 07/28/2014 9:05 ADJUNCT SPANISH INSTRUCTOR Alcohol Use : No MACKENZIE DENTON 07/28/2014 9:05 ADJUNCT SPANISH INSTRUCTOR Caffeine Use Grid Caffeine Use : Current Type : Soft drinks Frequency : Daily Amount : 1 MACKENZIE DENTON 07/28/2014 9:05 ADJUNCT SPANISH INSTRUCTOR Recreational Drug Use Grid Drug Use : None MACKENZIE DENTON 07/28/2014 9:05 ADJUNCT SPANISH INSTRUCTOR ID Screen Drug Resistant Organism : No Travel Within Last 21 Days : No Contact with someone with Ebola : No MACKENZIE DENTON 07/28/2014 9:05 ADJUNCT SPANISH INSTRUCTOR Source: [facility] POWERCHART Document Id: [id number] ADJUNCT SPANISH INSTRUCTOR!51 NCT SPANISH INSTRUCTOR documented in this encounter Plan of Treatment Upcoming Encounters Date Type Specialty Care Team Description 04/22/2022 Appointment Laboratory Medicine Meryl Julio M.D. [address] [place] [address] [phone] (Wo rk) 04/29/2022 Office Visit Endocrinology Meryl Julio M .D. [address] [place] [address] [phone] (Wo rk) documented as of this encounter Procedures Procedure Name Priority Date/Time Associated Comments Diagnosis TEST, U Routine 07/28/2014 9:53 AM Resu lts for this ADJUNCT SPANISH INSTRUCTOR procedure are i n the results section. CHLAMYDIA/GONORRHOEAE Routine 07/28/2014 9:53 AM Results for this AMPLIFIED RNA ADJUNCT SPANISH INSTRUCTOR procedure are in the results section. CHLAMYDIA TRACHOMATIS Routine 07/28/2014 9:53 AM Results for this AMPLIFIED RNA ADJUNCT SPANISH INSTRUCTOR procedure are in the results section. documented in this encounter Results Test, Qualitative, Urine (07/28/2014 9:53 AM ADJUNCT SPANISH INSTRUCTOR) [employer] Method Time Signature HXBeta-hCG Negative Negative POWERCHART Qualitative Urine Specimen (Source) Anatomical Collection Method Collection Time Re ceived Time Location / / Volume Laterality Urine 07/28/2014 9:53 AM ADJUNCT SPANISH INSTRUCTOR Nelson C l D.O. LAB URINE ORDERABLES Performing Organization Address [facility] Code Phon e Number POWERCHART Chlamydia / Gonorrhoeae Amplified RNA (07/28/2014 9:53 AM ADJUNCT SPANISH INSTRUCTOR) Component Value Ref Test Analysis Performed At [employer] Range Method Time Signature HX GC by Nucleic POWERCHART Acid Amplification HXFinal Negative for POWERCHART Neisseria gonorrhea by RNA amplification . HXFinal Reference: POWERCHART Negative HXFinal Testing done POWERCHART on a female urine specimen is a Laboratory Developed Test. Specimen (Source) Anatomical Collection Method Collection Time Re ceived Time Location / / Volume Laterality Urine 07/28/2014 9:53 AM ADJUNCT SPANISH INSTRUCTOR Nelson C l D.O. LAB MICROBIOLOGY - GENERAL O RDERABLES Performing Organization Address City/State/ZIP Code Phon e Number POWERCHART Chlamydia Trachomatis Amplified RNA (07/28/2014 9:53 AM ADJUNCT SPANISH INSTRUCTOR) Component Value Ref Test Analysis Performed At [employer] Range Method Time Signature HXChlamydia by POWERCHART Nucleic Acid Amplification HXFinal Negative for POWERCHART Chlamydia trachomatis by RNA amplification. HXFinal Reference: POWERCHART Negative HXFinal Testing done POWERCHART on a female urine specimen is a Laboratory Developed Test. Specimen (Source) Anatomical Collection Method Collection Time Re ceived Time Location / / Volume Laterality Urine 07/28/2014 9:53 AM ADJUNCT SPANISH INSTRUCTOR Nelson C Honl D.O. LAB MICROBIOLOGY - GENERAL O RDERABLES Performing Organization Address City/State/ZIP Code Phon e Number POWERCHART documented in this encounter Visit Diagnoses Not on filedocumented in this encounter
--- OUTSIDE RECORDS SUMMARY | 2022-03-06 07:13 | XMS_ITS | Encounter Summary ---
:1995 Author Organization [facility] Address [address] [place] [address] Care Team Providers Name Role Phone Unavailable Primary Care Provider Unavailable Encounter Details Date Type Department Care Team Description 08/10/2014 Hospital Encounter HX [facility] Chase, Nelson C , D.O. 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 - 08/10/2014 1:00 PM CDT [id number] [place] is in today to see Dr. Stone for a recheck on plantar warts on her right foot. She has had 1treatment a couple of weeks ago. Returns today for a debriding and re-freeze with liquid nitrogen. Photos were taken and are in via photo examination with her permission. Signed consent is in the chart. Photos are available on synthesis through opened with QREAD. I agree with his treatment plan today and she will return in a couple weeks for reassessment. Sukhjinder Rodriguez M.D./pos Electronically Signed By: SUKHJINDER RODRIGUEZ MD On: 08/14/2014 09:20 AM Modified by and Electronically Signed by: SUKHJINDER RODRIGUEZ MD On: 08/14/2014 09:20 AM Source: [facility] MHSDOLBEYNONRADSYS Document Id: [id number] documented in this encounter Procedure Notes Nelson Stone, DSebastianOSebastian - 08/10/2014 12:00 AM CDT 1RPT PROCEDURE: Destruction of lesions (warts). ANESTHESIA: None. ANTISEPTIC: Isopropyl alcohol. PROCEDURE: Prior to procedure, photographs of the foot were taken by Dr. Sukhjinder Rodriguez and uploaded to the patient's record. With her consent, an authorization to photograph, videotape or film patient was completed. The patient was examined in office and noted to have 4 warty lesions on the plantar aspect of her right foot. This destruction of these lesions was undertaken on the 28 of July previously by myself with liquid nitrogen. Today, she wishes for destruction of these again. The lesions themselves do show petechial speckling within them resembling the capillary heads. She has 2 under the 4th and 5th metatarsal heads and also 2 at the calcaneal area. The skin was prepped with isopropyl alcohol, no anesthetic was used for the procedure. The overlying epidermal skin was peared down to remove the thickened epidermal layer atop the warts. The area was then treated with liquid nitrogen freezing. Freeze wascontinued until an appropriate crystallization of the skin was noted. The skin was allowed to thaw fully and then refrozen again. This was completed a total of 4 times on each lesion. The patient tolerated the procedure very well. She will return to my office in 2 weeks' time for retreatment of these lesions. At that time, if she still shows signs of poor resolution of these, I would consider using an injection of lidocaine and destruction with electrocautery. Nelson Stone D.O./pos cc: Sukhjinder Rodriguez M.D. [facility] [address] [address] Kelly Aguilera D.O. [facility] in [address] [address] Electronically Signed By: NELSON STONE DO On: 08/10/2014 04:33 PM Modified by and Electronically Signed by: NELSON STONE DO On: 08/10/2014 04:33 PM Source: [facility] MHSDOLBEYNONRADSYS Document Id: [id number] documented in this encounter Nursing Notes Nelson Stone D.O. - 08/10/2014 4:18 PM CDT Ambulatory Patient Education The following Patient Education Materials have been given to the patient: Patient Education Materials: Dermatology (Common Skin Disorders) Treating Warts Dermatology (Common Skin Disorders) Treating Warts You and your doctor can talk about what treatment may be best for your wart or warts. To get rid of your warts, your doctor may need to try more than one type of treatment. The methods described below are often used to treat warts. Cryotherapy freezes warts off. Types of Treatment ?? Cryotherapy (liquid nitrogen) freezes warts and destroys skin infected by the wart-causing virus.This is done in the doctors office and will cause some discomfort. ?? Prescribed topical medications can be put on the skin. These are usually applied in the doctors office. ?? There are also topical treatments that can be used at home. Yrzq-jqt-brflcgb medications that most often contain salicylic acid may be an option. These liquids and creams are used at home. But they may take weeks to work. The medication is applied daily to the wart or warts and nearby skin. A blister may form on this skin area. The blister then dries up and peels off. ?? Electrodesiccation (a type of surgery) with curettage (scraping) may be used to remove warts. Thedoctor applies numbing medication to the wart. Then the wart is scraped or cut off. ?? Laser surgery can vaporize wart tissue. This is done in the doctors office. ?? Injections can be used to treat warts that dont respond to other treatments. This is done in the doctors office. When to Seek Medical Treatment Its a good idea to have your doctor check your warts. That way, any other skin problems can be ruledout. Some warts go away without treatment. But others increase in number. To keep warts from spreading, you may want to have them removed. Treatment can also provide relief from warts that bleed, burn,hurt, or itch. Genital warts should always be treated. They can spread to other people through sexual contact. Getting Good Results After having your warts treated, new warts may still appear. Dont be discouraged. Warts often recur. See your doctor again. He or she can tell you about the treatments that most likely will help clear your skin of warts. ?? [id number] [employer], [address] [place] [address], [place] [address]. All rights reserved. This information is not intended as a substitute for professional medical care. Always follow your healthcare professional's instructions. This document has images extracted. Please consider using [employer] for all your patient education needs. Source: [facility] POWERCHART Document Id: [id number] documented in this encounter Miscellaneous Notes Miscellaneous - Nelson Stone D.O. - 08/10/2014 4:18 PM CDT Ambulatory Patient Summary [address] [id number] Visit Information Name: FLAQUITO TURNER [facility] Number: [id number] Current Date: 08/10/2014 16:18:44 Physicians Attending Provider: NELSON STONE DO Primary Care Provider: KELLY AGUILERA DO FLAQUITO TURNER has been given the [...] 1 Milliliter, Intramuscular, every 90 days dysmenorrhea Stop Taking the Following Medications: Medication list as of 08-10-14 16:18 Attention: If you have any medications at home that are not on this list, DO NOT take them until youcontact your provider for clarification. Give a copy of your medication list to your primary care provider. Update your medication list any time medications or doses are changed and carry your medication list at all times in case of emergency. Electronically Signed By: NELSON STONE DO Signed On:10-AUG-2014 16:18:23 Your Allergies & Intolerances Substance Reaction Symptoms Category Comments ciprofloxacin Drug Your Problem List Problem Status Onset Comments Abdominal pain - Unspecified site Active Elevated Liver Enzymes Active Dysmenorrhea Active 07/01/2010 Other Specified Counseling Active Spasm of Sphincter of Oddi Active 03/04/2011 Your Upcoming Appointments Date Time Location Provider 08/24/2014 15:30 Nelson Anaya DO 10/26/2014 11:00 MICHAELA Cruz FLISABELLA [facility] Med Nurse 1 Attention: Contact your local Clinic if further appointment detail needed. Treating Warts You and your doctor can talk about what treatment may be best for your wart or warts. To get rid of your warts, your doctor may need to try more than one type of treatment. The methods described below are often used to treat warts. Cryotherapy freezes warts off. Types of Treatment ?? Cryotherapy (liquid nitrogen) freezes warts and destroys skin infected by the wart-causing virus.This is done in the doctors office and will cause some discomfort. ?? Prescribed topical medications can be put on the skin. These are usually applied in the doctors office. ?? There are also topical treatments that can be used at home. Unrc-xjs-pexgboz medications that most often contain salicylic acid may be an option. These liquids and creams are used at home. But they may take weeks to work. The medication is applied daily to the wart or warts and nearby skin. A blister may form on this skin area. The blister then dries up and peels off. ?? Electrodesiccation (a type of surgery) with curettage (scraping) may be used to remove warts. Thedoctor applies numbing medication to the wart. Then the wart is scraped or cut off. ?? Laser surgery can vaporize wart tissue. This is done in the doctors office. ?? Injections can be used to treat warts that dont respond to other treatments. This is done in the doctors office. When to Seek Medical Treatment Its a good idea to have your doctor check your warts. That way, any other skin problems can be ruledout. Some warts go away without treatment. But others increase in number. To keep warts from spreading, you may want to have them removed. Treatment can also provide relief from warts that bleed, burn,hurt, or itch. Genital warts should always be treated. They can spread to other people through sexual contact. Getting Good Results After having your warts treated, new warts may still appear. Dont be discouraged. Warts often recur. See your doctor again. He or she can tell you about the treatments that most likely will help clear your skin of warts. ?? [phone] [facility], [address] [place] [address], [place] [address]. All rights reserved. This information is not intended as a substitute for professional medical care. Always follow your healthcare professional's instructions. Your Goals/Additional instructions: This document has images extracted. Please consider using [employer] for all your patient education needs. Source: [facility] POWERCHART Document Id: [id number] Miscellaneous - Nelson Stone D.O. - 08/10/2014 4:18 PM CDT Ambulatory Discharge Medication List [address] [id number] Visit Information Name: FLAQUITO TURNER [facility] Number: [id number] Visit Date: 08/10/2014 16:18:44 Attending Provider: NELSON STONE DO Primary Care Provider: KELLY AGUILERA DO FLAQUITO TURNER has been given the [...] 1 Milliliter, Intramuscular, every 90 days dysmenorrhea Stop Taking the Following Medications: Medication list as of 08-10-14 16:18 Attention: If you have any medications at home that are not on this list, DO NOT take them until youcontact your provider for clarification. Give a copy of your medication list to your primary care provider. Update your medication list any time medications or doses are changed and carry your medication list at all times in case of emergency. 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 Intake/History Entered On: 08/10/2014 13:31 CDT Performed On: 08/10/2014 13:28 CDT by MACKENZIE DENTON Intake Chief Complaint : Recheck wart Temperature Core : 36.2 DegC(Converted to: 97.2 DegF) (LOW) Peripheral Pulse Rate : 98 /min Heart Rhythm : Regular Systolic Blood Pressure : 126 mmHg Diastolic Blood Pressure : 98 mmHg (>HHI) NIBP Mean : 107 mmHg BP Location : Right upper extremity Blood Pressure Cuff Size : Large Actual Weight : 103.1 kg(Converted to: 227 lb 5 oz) Weight Source : Standing scale Dosing Weight Clinic : 103.1 kg MACKENZIE DENTON - 08/10/2014 13:28 CDT General Info Languages : Nicaraguan Is Patient Female and 13-50 no hysterectomy : Yes Status : Patient denies Are you ? : No MACKENZIE DENTON - 08/10/2014 13:28 CDT Subjective Pain Symptoms : No MACKENZIE DENTON 08/10/2014 13:28 CDT Dependent Habits Tobacco Use/Currently Using : No Smoking Status : Never smoker MACKENZIE DENTON 08/10/2014 13:28 CDT Tobacco Use Grid Last Use : never MACKENZIE DENTON 08/10/2014 13:28 CDT Alcohol Use : No MACKENZIE DENTON 08/10/2014 13:28 CDT Caffeine Use Grid Caffeine Use : Current Type : Soft drinks Frequency : Daily Amount : 1 TONO MACKENZIE Bharat - 08/10/2014 13:28 CDT Recreational Drug Use Grid Drug Use : None TONO MACKENZIE Bharat - 08/10/2014 13:28 CDT ID Screen Drug Resistant Organism : No Travel Within Last 21 Days : No Contact with someone with Ebola : No TONO MACKENZIE Bharat - 08/10/2014 13:28 CDT Source: [employer] Document Id: [id number] documented in this encounter Plan of Treatment Upcoming Encounters Date Type Specialty Care Team Description 04/22/2022 Appointment Laboratory Medicine Meryl Julio M.D. [address] [place] [address] (Wo rk) 04/29/2022 Office Visit Endocrinology Meryl Julio M .D. [address] [place] [address]00 (Wo rk) documented as of this encounter Visit Diagnoses Not on filedocumented in this encounter
--- OUTSIDE RECORDS SUMMARY | 2022-03-06 07:13 | XMS_ITS | Encounter Summary ---
:1995 Author Organization [facility] Address [address] [place] [address] Care Team Providers Name Role Phone Unavailable Primary Care Provider Unavailable Encounter Details Date Type Department Care Team Description 07/13/2013 Hospital Encounter HX [facility] Diana Abdul, BARBARA, C.N.P., M. S.N. [address] [place] [address] (Wo rk) Social History Tobacco Use [...] How often do you attend gnosticism or mandaen More than 4 time s [...] at Date Recorded Female 06/21/2021 12:52 PM BUS BOY documented as of this encounter Last Filed Vital Signs Vital Sign Reading Time Taken Comments Blood Pressure 108/68 07/13/2013 11:53 AM BUS BOY Pulse 78 07/13/2013 11:53 AM BUS BOY Temperature - - Respiratory Rate 16 07/13/2013 11:53 AM BUS BOY Oxygen Saturation - - Inhaled Oxygen Concentration - - Weight 85.4 kg (188 lb 4.4 oz) 07/13/2013 11:53 AM BUS BOY Height - - Body Mass Index 30.08 08/27/2012 9:18 AM CDT documented in this encounter Progress Notes Melanie Gan, BARBARA, C.N.P. - 07/13/2013 11:15 AM CST [id number] Document Contains Addenda CHIEF COMPLAINT\REASON FOR VISIT Sore throat, fatigue, fever. HISTORY OF PRESENT ILLNESS The patient states that last week she noticed that she just really was not feeling well, a little more fatigued, snoring and then 5 days ago had a remarkable change where she really felt horrible, severe sore throat, fatigue. She did have some diarrhea and backache that has improved though. She has been coughing a lot, especially at night. She has taken some Robitussin. That has not helped significantly but did have just 1 dose of Robitussin with codeine left. She took that finally last night. States that did help, but she does have discomfort in her ears as well. She states that she is so tired she feels like all she can do is sleep. She has been napping for at least an hour every day and startedgoing to bed early but does realize she is not getting good sleep due to the cough. She has also hadheadaches. Did have fever over the weekend as high as 102.4. She also just wanted to double check with Zoloft. She feels that has been going fairly well. Does not have any concerns. She did complete a PHQ-9 with a score of zero and a CHASTITY-7 with a score of zero. PHYSICAL EXAMINATION GENERAL: She is a very pleasant 17-year-old who does appear ill. VITAL SIGNS: Temp 36. Blood pressure 108/68. Heart rate of 76. Respiratory rate of 16. A weight of 85.4 kilos. NECK: Supple. She does have shotty nodes bilaterally. HEENT: She has no occipital lymphadenopathy. Ear canals and TMs are within normal limits. Nasal mucosa is erythematous. Her posterior oropharynx is mildly inflamed. Tonsils are +2. HEART: Sounds S1, S2. No murmur. LUNGS: Sounds are clear throughout with good air exchange. LABORATORY: Rapid Strep was done and was negative. CBC and mono were done within normal limits. IMPRESSION/REPORT/PLAN Viral syndrome. PLAN: We will notify if the Strep does come back positive, as her CBC was within normal limits. Did provide reassurance, as she does appear mildly ill and very fatigued, so I did give her a note excusing her from school and work for the next day. She is supposed to have clinical. I do not feel that would be appropriate for her to spread her illness. Encouraged her to pursue fluids. If she is getting worse, she is to return and if she is not improved after the weekend, she is to notify us. She verbalized understanding. ADDENDUM: FINAL DIAGNOSIS: 1. Fatigue, acute source throat and viral infection. 2. Depression. PLAN: She will just continue with the sertraline. Cough. I did give her a prescription for the Robitussin AC 5 mL every 6 hours as needed, mostly use at night 200 mL with no refills. Juan Manuel Lassiter.N.PSebastian/pos Electronically Signed By: MELANIE GAN CNP On: 07/18/2013 05:34 PM Source: [facility] MHSDOLBEYNONRADSYS Document Id: [id number] BOY documented in this encounter Procedure Notes Lee Ann Murphy L.P.N. - 07/13/2013 12:07 PM CST Depo-Provera Administration Depo-Provera Administration Entered On: 07/13/2013 12:08 BUS BOY Performed On: 07/13/2013 12:07 BUS BOY by LEE ANN MURPHY LPN Depo-Provera Administration Annual Exam in the Past 12 Months : Yes Last Depo-Provera Given : 04/22/2013 BUS BOY Return appointment : 09/28/2013 CDT Needs test : No LEE ANN MURPHY LPN - 07/13/2013 12:07 BUS BOY Source: [facility] [employer] Document Id: [id number] BUS BOY!6 BOY documented in this encounter Miscellaneous Notes Telephone Encounter - Laurita Lopez R.N. - 07/13/2013 2:44 PM CST Codeine-guaifensein Document Contains Addenda Addendum by LEE ANN MURPHY LPN on 13 July 2013 15:51:37 BUS BOY Rx given to [employer] to fax Addendum by MELANIE GAN CNP on 13 July 2013 15:36:17 BUS BOY From: MELANIE GAN CNP To: LEE ANN MURPHY LPN; Sent: 07/13/2013 15:36:17 BUS BOY Subject: FW: Codeine-guaifensein can you please fax Addendum by MELANIE GAN CNP on 13 July 2013 15:35:10 BUS BOY Submitted: Order:codeine-guaiFENesin (codeine-guaiFENesin 10 mg-100 mg/5 mL oral syrup) 5 mL PO q4hr Qty: 180 mL Refills: 0 Substitutions Allowed PRN cough Print - [id number] Signed by MELANIE GAN CNP From: LAURITA LOPEZ RN To: MELANIE GAN CNP; Sent: 07/13/2013 14:44:47 BUS BOY Subject: Codeine-guaifensein Caller is: ( x ) Patient ( ) Mother ( ) Father ( ) Spouse ( ) Daughter ( ) Son ( x [facility]acy ( ) Other: Physician: Yulia Gan Patient MRN #: Reason for Call: Message: [facility] [address] and patient have called and left a message. [facility] not [facility] the codeine-guaifenesin 10mg-300mg/5mL. They do have the 10mg-100mg combo. Would this be okay or should [facility] order [id number]? If the 10mg-100mg is okay please place order. Thanks Advice/Action: Source used: ( ) Verbalizes understanding of instructions ( ) Instructed to call back if symptoms worsen or do not resolve ( ) Refused to see provider ( ) Appointment Scheduled ( ) OK to leave message on voice mail ( ) Patient told to expect return call: ( ) today ( ) tomorrow ( ) next work day ( ) Patient's email ( ) Patient told physician out of office, will call upon return call on ( ) ( ) Patient told physician out of office, routed to other physician ( ) Other ( ) Call back telephone number ( ) Call back cell phone number ( ) Source: [facility] POWERCHART Document Id: [id number] Electronically signed by [facility]ton [facility] [id number] at 10/20/2016 9:07 PM CDT Miscellaneous - Lee Ann Murphy, L.P.N. - 07/13/2013 2:23 PM CST PHQ-9 PHQ-9 Entered On: 07/13/2013 14:24 BUS BOY Performed On: 07/13/2013 14:23 BUS BOY by LEE ANN MURPHY LPN PHQ-9 Little interest or pleasure in doing things : Not at all Feeling down, depressed, or hopeless : Not at all Trouble falling or staying asleep, or sleeping too much : Not at all Feeling tired or having little energy : Not at all Poor appetite or overeating : Not at all Feeling bad about yourself or that you are a failure : Not at all Trouble concentrating on things : Not at all Moving or speaking slowly; restless or fidgety : Not at all Thoughts that you would be better off /hurting self : Not at all PHQ-9 Calculated Score : 0 Problems make work, home, or dealing with others : Not difficult at all LEE ANN MURPHY LPN - 07/13/2013 14:23 BUS BOY Source: [employer] Document Id: [id number] BUS BOY!13 BOY [employer] - Lee Ann Murphy L.P.N. - 07/13/2013 2:22 PM CST CHASTITY-7 CHASTITY-7 Entered On: 07/13/2013 14:22 BUS BOY Performed On: 07/13/2013 14:22 BUS BOY by LEE ANN MURPHY LPN GAD7 GAD7 Feeling nervous : Not at all GAD7 Not able to control worry : Not at all GAD7 Worrying too much : Not at all GAD7 Trouble relaxing : Not at all GAD7 Being so restless : Not at all GAD7 Becoming easily annoyed : Not at all GAD7 Feeling afraid : Not at all GAD7 Total Score : 0 LEE ANN MURPHY LPN - 07/13/2013 14:22 BUS BOY Source: [employer] Document Id: [id number] BUS BOY!10 BOY Miscellaneous - Melanie Gan APRN C.N.PSebastian - 07/13/2013 12:58 PM BUS BOY School Excuse 13 July 2013 FLAQUITO TURNER [address] [place] [address] [phone] Dear FLAQUITO TURNER, You were examined in my office on: 07/13/13 To return to school today: ( _ ) Yes ( x ) No To return to regular activity: ( _ ) Yes ( x ) No To have modified activity: ( _ ) Yes ( _ ) No As follows: ( _ ) No contact sports ( _ ) May do upper body activities ( _ ) May do lower body activities ( _ ) May do walking program ( _ ) No physical activity ( _ ) Other: _ Duration of activity restriction: ( _ ) Days ( _ ) Weeks ( _ ) Months ( _ ) Other: _ Physical Therapy referral: ( _ ) Yes ( _ ) No School Medication / Procedure Form completed: ( _ ) Yes ( _ ) Not necessary Notes: _ May return to school & clinic rotation on 07/18/13 Sincerely, MELANIE GAN [address] [place] [id number] Electronic Signature Electronically Signed By: MELANIE GAN CNP On: 13 July 2013 This document has images extracted. Source: [facility] [employer] Document Id: [id number] Miscellaneous - Lee Ann Murphy L.PSebastianNSebastian - 07/13/2013 11:53 AM CST Adult Client Technologies Analyst Intake/History Adult Client Technologies Analyst Intake/History Entered On: 07/13/2013 11:56 BUS BOY Performed On: 07/13/2013 11:53 BUS BOY by LEE ANN MURPHY LPN Intake Chief Complaint : Fatigue, ST, fever, headaches and tired all time since Thursday also Zoloft med paulette Peripheral Pulse Rate : 78 /min Respiratory Rate : 16 /min Heart Rhythm : Regular Systolic Blood Pressure : 108 mmHg Diastolic Blood Pressure : 68 mmHg NIBP Mean : 81 mmHg BP Location : Right upper extremity Blood Pressure Cuff Size : Large Actual Weight : 85.4 kg(Converted to: 188 lb 4 oz) Weight Source : Standing scale Dosing Weight Clinic : 85.4 kg LEE ANN MURPHY LPN - 07/13/2013 11:53 BUS BOY General Info Information Given By : Patient Languages : Malay LEE ANN MURPHY LPN - 07/13/2013 11:53 BUS BOY Subjective Pain Symptoms : Yes LEE ANN MURPHY LPN - 07/13/2013 11:53 BUS BOY Pain Pain Assessment Grid Pain 1 Location : Throat Intensity : 9 LEE ANN MURPHY LPN - 07/13/2013 11:53 BUS BOY Dependent Habits Tobacco Use/Currently Using : No Smoking Status : Never smoker LEE ANN MURPHY LPN - 07/13/2013 11:53 BUS BOY Tobacco Use Grid Last Use : never LEE ANN MURPHY [facility] - 07/13/2013 11:53 BUS BOY Alcohol Use : No LEE ANN MURPHY [facility] - 07/13/2013 11:53 BUS BOY Caffeine Use Grid Caffeine Use : Current Type : Soft drinks Frequency : Daily Amount : 1 LEE ANN MURPHY [facility] - 07/13/2013 11:53 BUS BOY Recreational Drug Use Grid Drug Use : None LEE ANN MURPHY [facility] - 07/13/2013 11:53 BUS BOY Source: [facility] [employer] Document Id: [id number] BUS BOY!40 BOY documented in this encounter Plan of Treatment Upcoming Encounters Date Type Specialty Care Team Description 04/22/2022 Appointment Laboratory Medicine Meryl Julio M.D. [address] [place], [place] [address] (Wo rk) 04/29/2022 Office Visit Endocrinology Meryl Julio M .D. [address] [place], [place] [address] (Wo rk) documented as of this encounter Procedures Procedure Name Priority Date/Time Associated Comments Diagnosis POCT MONONUCLEOSIS Routine 07/13/2013 12:43 Resul ts for this SCREEN PM BUS BOY procedure are i n the results section. HXMANUAL DIFFERENTIAL Routine 07/13/2013 12:32 Re sults for this PM BUS BOY procedure are i n the results section. CBC WITH DIFFERENTIAL, Routine 07/13/2013 12:32 R esults for this B PM BUS BOY procedure are i n the results section. RAPID STREP A SCREEN Routine 07/13/2013 12:02 Res ults for this PM BUS BOY procedure are i n the results section. RAPID STREP A SCREEN Routine 07/13/2013 12:02 Res ults for this PM BUS BOY procedure are i n the results section. documented in this encounter Results Mononucleosis Screen, POCT (07/13/2013 12:43 PM BUS BOY) [facility] Method Time Signature Infectious POWERCHART [place] Test, S HXFinal Negative POWERCHART HXFinal Reference: POWERCHART Negative Specimen (Source) Anatomical Collection Method Collection Time Re ceived Time Location / / Volume Laterality Blood 07/13/2013 12:43 PM BUS BOY Juan Manuel Hutton APRN.N.Amy, M.S.N. LAB POCT ORDERABLE S-MANUAL Performing Organization Address City/State/ZIP Code Phon e Number POWERCHART HXMANUAL DIFFERENTIAL (07/13/2013 12:32 PM BUS BOY) Analysis Performed At Patho logist Time Signature Absolute 5.86 1.70 - POWERCHART Neutrophil 7.00 X109L Count Absolute 61 41 - 77 POWERCHART Neutrophil Count HX Lymph Manual 30 20 - 45 POWERCHART Monocytes 9 0 - 12 POWERCHART HX Eos Manual 0 0 - 5 POWERCHART HXBaso Manual. 0 0 - 2 POWERCHART PLT Estimate Adequate POWERCHART Specimen Anatomical Collection Method Collection Time Receive d Time (Source) Location / / Volume Laterality Blood 07/13/2013 12:32 07/13/2013 PM BUS BOY 12:32 PM BUS BOY Juan Manuel Hutton APRN.N.Amy, M.S.N. LAB HISTORICAL ORD ERS Performing Organization Address City/State/ZIP Code Phon e Number POWERCHART CBC with Differential (07/13/2013 12:32 PM BUS BOY) P athologist Signature Leukocytes 9.6 3.4 - 10.5 POWERCHART X109L Erythrocytes 4.40 3.90 - 5.03 POWERCHART O0639T Hemoglobin 14.1 12.0 - 15.5 POWERCHART GDL Hematocrit 40.2 34.9 - 44.5 POWERCHART MCV 91.4 82.0 - 98.0 POWERCHART FL HX RDW 12.4 11.9 - 15.5 POWERCHART Platelet Count 261 150 - 450 POWERCHART X109L Specimen (Source) Anatomical Collection Method Collection Time Re ceived Time Location / / Volume Laterality Blood 07/13/2013 12:32 PM BUS BOY Juan Manuel Hutton APRN.N.PSebastian, M.S.N. LAB BLOOD ADD-ON Performing Organization Address City/State/ZIP Code Phon e Number POWERCHART Rapid Strep A Screen (07/13/2013 12:02 PM BUS BOY) Patholo gist Method Time Signature HXRapid Strep POWERCHART Confirmation HXPre Negative for POWERCHART Group A Strep by culture. HXFinal Negative for POWERCHART Group A Strep by culture. Specimen Anatomical Collection Method Collection Time Receive d Time (Source) Location / / Volume Laterality Throat 07/13/2013 12:02 07/13/2013 PM BUS BOY 12:02 PM BUS BOY Juan Manuel Hutton APRN.N.Chandan., M.S.N. LAB MICROBIOLOGY - GENERAL ORDERABLES Performing Organization Address [facility] Phon e Number POWERCHART Rapid Strep A Screen (07/13/2013 12:02 PM BUS BOY) [facility] Method Time Signature HXStrep A POWERCHART Screen Rapid HXFinal Negative for POWERCHART Strep Group A by rapid screen. HXFinal Culture POWERCHART confirmation to follow. Specimen (Source) Anatomical Collection Method Collection Time Re ceived Time Location / / Volume Laterality Throat 07/13/2013 12:02 PM BUS BOY Juan Manuel Hutton APRN.N.P., M.S.N. LAB MICROBIOLOGY - GENERAL ORDERABLES Performing Organization Address City/[facility] Phon e Number POWERCHART documented in this encounter Visit Diagnoses Not on filedocumented in this encounter
--- OUTSIDE RECORDS SUMMARY | 2022-03-06 07:13 | XMS_ITS | Encounter Summary ---
:[address] [facility] Address [address] [place] [address] Care Team Providers Name Role Phone Unavailable Primary Care Provider Unavailable Encounter Details Date Type Department Care Team Description 08/24/2014 Hospital Encounter HX [facility] RESIDENTS Chase, Nelson C , D.O. 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 - 08/24/2014 2:53 PM CDT [id number] The patient was precepted by and seen by a Dr. Chris Aguilera. CHIEF COMPLAINT/REASON FOR VISIT Right foot warts. HISTORY OF PRESENT ILLNESS Felecia is a 19-year-old female, who I have been treating for her ongoing plantar warts since 2014. I have treated her on July 28 as well as August 10 for her ongoing plantar warts. We have been trialing cryogenic freezing with paring of the wart on each treatment. She initially had 5 warts on the plantar aspect of her right foot, she now has 4. She states at her last visit she did not have blistering afterward but she did have a significant pain for the first day, which slowly improvedthereafter. She does note that she is able to walk on her foot and it does not feel as if she has a pea or pebble there. She does believe that the warts do seem to be showing some improvement, but theyhave not completely resolved. Also today, the patient does state that she has ongoing pressure and headache, pressure behind her eyes is getting to be significant. She has had a cough that has been ongoing for the last week and a mild sore throat. She denies any sort of fevers, denies any sort of ear pain or drainage. She denies any sort of nausea or vomiting. She denies any production of her cough. SYSTEMS REVIEW A 12 review of systems was conducted, negative unless noted above in the HPI. VITAL SIGNS Temperature 36.9, heart rate 84, respiratory 12, blood pressure 124/84, height 168 cm, weight 103.9 kg, BMI 36.8. PHYSICAL EXAMINATION GENERAL: Well-appearing 19-year-old female, appears in no distress. She is alert and oriented x3. HEENT: Mucosa appears moist and pink. Posterior pharynx is mildly erythematous. There is no tonsillar enlargement or exudate. TMs are visualized bilaterally. There is mild amount of bulging to both TMsbut they are nonerythematous. They are pearly francisco. Maxillary sinuses tender to percussion. Frontal sinuses also mildly tender to percussion. NECK: Neck is supple. Mild sublingual lymphadenopathy that is nontender. HEART: Regular rate and rhythm. S1, S2 noted. No murmurs or rubs. LUNGS: Clear to auscultation throughout, no wheezes rales or rhonchi. MUSCULOSKELETAL: Significant for plantar warts on the plantar aspect of the right foot. She does have 4 in total. There are 2 at the midfoot just anterior to the calcaneus and there are also 2 more over the 4th and 5th metatarsal heads. They are roughly 1.4 cm in size. PROCEDURE: Procedure performed in the office was a destruction of noncancerous lesion. I did pare down each of the warts today with the 10 blade scalpel. After paring down, I did apply cryogenic nitroglycerin to each one of the warts until they developeda significant hoffmann layer. I allowed the hoffmann layer to thaw and then applied again for a total of 4freezing cycles. After freezing each wart, I did apply a bandage. Patient will followup in office in 2 weeks' time for repeat freezing of the warts. At that time, I may also undertake other options for treating these warts since they have gone through 3 episodes already and does not seem to be showing significant improvement. IMPRESSION/REPORT/PLAN 1. Plantar warts. Procedure treatment as detailed above. 2. Acute maxillary sinusitis. Prescribed Flonase 50 mcg per inhalation 1 spray per nostril twice daily. I did tell the patient to continue using warm liquids and honey to help soothe the throat. I told patient that if she does not shows significant improvement by Thursday of this coming week, that she should call into our office and I would prescribe her an antibiotic of Augmentin. If symptoms do worsen at any time, she can call in earlier or be seen sooner. Nelson Stone D.O./pos cc: Chris Aguilera D.O. [facility] in [address] [place] [address] Electronically Signed By: NELSON STONE DO On: 08/25/2014 01:28 PM [facility] Document Id: [id number] Chris Aguilera D.O. - 08/24/2014 2:53 PM CDT [id number] PRECEPTOR NOTE CHIEF COMPLAINT/REASON FOR VISIT Warts. HISTORY OF PRESENT ILLNESS Felecia presents to Dr. Stone for followup of warts. Four were present and treated with cryotherapy while I was present. She also had some sinus congestion, which was treated with Flonase. IMPRESSION/REPORT/PLAN 1. Plantar warts with cryotherapy. 2. Sinusitis. I agree with Dr. Stone's assessment and plan of care. I was present for portion of procedure. Chris Aguilera D.O./pos Electronically Signed By: CHRIS AGUILERA DO On: 08/28/2014 08:19 AM Source[facility] Document Id: [id number] documented in this encounter Miscellaneous Notes Miscellaneous - Ag Tavera L.P.N. - 08/24/2014 3:17 PM CDT Adult Qualifications Examiner Intake/History Adult Qualifications Examiner Intake/History Entered On: 08/24/2014 15:20 CDT Performed On: 08/24/2014 15:17 CDT by AG TAVERA LPN Intake Chief Complaint : Right foot warts. Temperature Core : 36.9 DegC(Converted to: 98.4 DegF) Peripheral Pulse Rate : 84 /min Respiratory Rate : 12 /min (LOW) Heart Rhythm : Regular Systolic Blood Pressure : 124 mmHg Diastolic Blood Pressure : 84 mmHg NIBP Mean : 97 mmHg BP Location : Right upper extremity Blood Pressure Cuff Size : Large Height : 168 cm(Converted to: 5 ft 6 inch(es), 66 inch(es)) Actual Weight : 103.9 kg(Converted to: 229 lb 1 oz) Weight Source : Standing scale Dosing Weight Clinic : 103.9 kg Clinic BSA : 2.2 Body Mass Index : 36.81 kg/m2 AG TAVERA LPN - 08/24/2014 15:17 CDT General Info Information Given By : Patient Languages : Ethiopian Is Patient Female and 13-50 no hysterectomy : Yes Status : Patient denies Are you ? : No AG TAVERA LPN - 08/24/2014 15:17 CDT Subjective Pain Symptoms : No AG TAVERA LPN - 08/24/2014 15:17 CDT Dependent Habits Tobacco Use/Currently Using : No Tobacco Use/Advised to Quit : No Exposure to Tobacco Smoke : Other: NEVER Smoking Status : Never smoker AG TAVERA LPN - 08/24/2014 15:17 CDT Tobacco Use Grid Last Use : never AG TAVERA LPN - 08/24/2014 15:17 CDT Alcohol Use : No AG TAVERA LPN - 08/24/2014 15:17 CDT Caffeine Use Grid Caffeine Use : Current Current Type : Soft drinks Coffee Frequency : Daily Daily Amount : 1 1 cup AG TAVERA LPN - 08/24/2014 15:17 CDT AG TAVERA LPN - 08/24/2014 15:17 CDT Recreational Drug Use Grid Drug Use : None AG TAVERA LPN - 08/24/2014 15:17 CDT ID Screen Drug Resistant Organism : No Travel Within Last 21 Days : No Contact with someone with Ebola : No AG 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 [employer] Document Id: [id number] CDT!53 documented in this encounter Plan of Treatment Upcoming Encounters Date Type Specialty Care Team Description 04/22/2022 Appointment Laboratory Medicine Meryl Julio M.D. [address] [place] [address] (Wo rk) 04/29/2022 Office Visit Endocrinology Meryl Julio M .D. [address] [place] [address] (Wo rk) documented as of this encounter Visit Diagnoses Not on filedocumented in this encounter
--- OUTSIDE RECORDS SUMMARY | 2022-03-06 07:13 | XMS_ITS | Encounter Summary ---
:1995 Author Organization [facility] Address [address] [place] [address] Care Team Providers Name Role Phone Unavailable Primary Care Provider Unavailable Encounter Details Date Type Department Care Team Description 09/22/2014 Hospital Encounter HX [facility] Edgar Barraza, D.O. Social History Tobacco Use Types Packs/Day [...] How often do you attend gnosticist or gnosticism More than 4 time s [...] at Date Recorded Female 06/21/2021 12:52 PM [employer] documented as of this encounter Last Filed Vital Signs Vital Sign Reading Time Taken Comments Blood Pressure 110/76 09/22/2014 3:06 PM CDT Pulse 72 09/22/2014 3:06 PM CDT Temperature - - Respiratory Rate - - Oxygen Saturation - - Inhaled Oxygen Concentration - - Weight 104 kg (230 lb 6.1 oz) 09/22/2014 3:06 PM CDT Height 168 cm (5' 6.14) 09/22/2014 3:06 PM CDT Body Mass Index 37.02 09/22/2014 3:06 PM CDT documented in this encounter Progress Notes Neo Rios M.D. - 09/22/2014 2:47 PM CDT [id number] Patient is here to see Dr. Barraza today for treatment of plantar warts. She has had several of them on the bottom of her foot. She has had three freezings now and three consequently. Dr. Barraza talked her about further treatments. We do not want to do any more cryotherapy. She is interested in trying the Krupa antigen therapy, so Dr. Barraza did an injection in the warts just a 0.05 mL in each throughout the three warts of the Krupa antigen for a total of 0.15 mL. Please see his note for details. DIAGNOSIS Plantar warts. Neo Rios M.D./pos Electronically Signed By: NEO RIOS MD On: 09/27/2014 04:53 PM Source: [facility] MHSDOLBEYNONRADSYS Document Id: [id number] documented in this encounter H&P Notes Anderson Barraza D.OSebastian - 09/22/2014 2:47 PM CDT [id number] CHIEF COMPLAINT/REASON FOR VISIT Plantar warts on foot. HISTORY OF PRESENT ILLNESS Ms. Cardenas is a 19-year-old female who presents with concerns of plantar warts on her right foot, asshe has previously been seen by my colleague, Dr. Stone, on July 28, August 10, and August 24. They have been pared down with scalpel and also frozen repeatedly. She is requesting not to have them frozen today. She tells me that they are not as painful as they have been in the past and feel a bit better. However, they are still present. She is hoping to do whatever is necessary to have these removed. She has no additional concerns today. VITAL SIGNS Temperature is 36.6 degrees Celsius, heart rate 72 beats per minute, blood pressure 110/76. Height 168 cm, weight 104.5 kg, BMI is 37.03 kg/m2. PHYSICAL EXAMINATION GENERAL: Ms. Cardenas is a 19-year-old female who appears stated age. She is in no acute distress during time of exam. FOOT: On the plantar surface of the right foot, there are 4 small plantar warts, with vascularization noted within the lesion. They do appear well pared. IMPRESSION/REPORT/PLAN Plantar warts. PLAN: Today I injected of these warts with Krupa. I will have her follow up in 1 month's time withDr. Stone. PRECEPTOR: MD Anderson Vaughan D.O./pos cc: Neo Rios M.D. [facility] in [address] [address] Electronically Signed By: ANDERSON BARRAZA DO On: 09/26/2014 10:53 PM Source: [facility] MHSDOLBEYNONRADSYS Document Id: [id number] documented in this encounter Miscellaneous Notes Miscellaneous - Conversion, Historical Provider Ser - 09/22/2014 3:06 PM CDT Adult Billing Spec Intake/History Adult Billing Spec Intake/History Entered On: 09/22/2014 15:09 CDT Performed On: 09/22/2014 15:06 CDT by ARTUR MILLER LPN Intake Chief Complaint : Plantar warts on right foot Temperature Core : 36.6 DegC(Converted to: 97.9 DegF) Peripheral Pulse Rate : 72 /min Heart Rhythm : Regular Systolic Blood Pressure : 110 mmHg Diastolic Blood Pressure : 76 mmHg NIBP Mean : 87 mmHg BP Location : Right upper extremity Blood Pressure Cuff Size : Large Height : 168 cm(Converted to: 5 ft 6 inch(es), 66 inch(es)) Actual Weight : 104.5 kg(Converted to: 230 lb 6 oz) Weight Source : Standing scale Dosing Weight Clinic : 104.5 kg Clinic BSA : 2.21 Body Mass Index : 37.03 kg/m2 ARTUR MILLER LPN - 09/22/2014 15:07 CDT General Info Information Given By : Patient Languages : Mosotho Is Patient Female and 13-50 no hysterectomy : Yes Status : Patient denies Are you ? : No ARTUR MILLER LPN - 09/22/2014 15:07 CDT Subjective Pain Symptoms : No ARTUR MILLER LPN - 09/22/2014 15:07 CDT Dependent Habits Tobacco Use/Currently Using : No Exposure to Tobacco Smoke : Other: NEVER Smoking Status : Never smoker Alcohol Use : No ARTUR MILLER LPN - 09/22/2014 15:07 CDT Caffeine Use Grid Caffeine Use : Current Current Type : Soft drinks Coffee Frequency : Daily Daily Amount : 1 1 cup ARTUR MILLER LPN - 09/22/2014 15:07 CDT ARTUR MILLER LPN - 09/22/2014 15:07 CDT Recreational Drug Use Grid Drug Use : None ARTUR MILLER LPN - 09/22/2014 15:07 CDT ID Screen Drug Resistant Organism : No Travel Within Last 21 Days : No Contact with someone with Ebola : No ARTUR MILLER LPN 09/22/2014 15:07 CDT Source: [facility] Document Id: [id number] CDT!48 documented in this encounter Plan of Treatment Upcoming Encounters Date Type Specialty Care Team Description 04/22/2022 Appointment Laboratory Medicine Meryl Julio M.D. [address] [place], [place] [address] (Hector rk) 04/29/2022 Office Visit Endocrinology Meryl Julio M .D. [address] [place], [place] [address] (Hector martin) documented as of this encounter Visit Diagnoses Not on filedocumented in this encounter
--- OUTSIDE RECORDS SUMMARY | 2022-03-06 07:13 | XMS_ITS | Encounter Summary ---
:1995 Author Organization [facility] Address [address] [place] [address] Care Team Providers Name Role Phone Unavailable Primary Care Provider Unavailable Encounter Details Date Type Department Care Team Description 02/14/2013 Hospital Encounter HX [facility] LENNOX Aguilera, in [address] [place] [address] (Wo rk) Social History Tobacco Use [...] How often do you attend religious or uatsdin More than 4 time s [...] at Date Recorded Female 06/21/2021 12:52 PM [employer] documented as of this encounter Miscellaneous Notes Miscellaneous - Arabella Espinosa REddi - 02/14/2013 4:39 PM CDT PPD Screen PPD Screen Entered On: 02/14/2013 16:41 CDT Performed On: 02/14/2013 16:39 CDT by ARABELLA ESPINOSA RN PPD Screening Bloody Sputum : No Fatigue : No Fever : No Loss of Appetite : No Night Sweats : No Persistent Cough Greater Than 3 Weeks : No Weight Loss : No ARABELLA ESPINOSA RN - 02/14/2013 16:39 CDT TB Symptoms Grid Alcohol and Drug Use : No Employee of Institutional Living Environment : No Health Care Employee : No History of Exposure to TB : No History of Positive Chest X-Ray for TB : No History of Positive TB Skin Test : No Homeless : No Known Immunosuppression : No Recent Immigrant : No Resident of Institutional Living Environment : No ARABELLA ESPINOSA RN - 02/14/2013 16:39 CDT PPD Screening Grid Severe reaction to previous [...] last 4 - 6 weeks : No ARABELLA ESPINOSA RN - 02/14/2013 16:39 CDT Source: [facility] POWERCHART Document Id: [id number] CDT!28 documented in this encounter Plan of Treatment Upcoming Encounters Date Type Specialty Care Team Description 04/22/2022 Appointment Laboratory Medicine Meryl Julio M.D. [facility] [place], [place] [address] (Wo rk) 04/29/2022 Office Visit Endocrinology Meryl Julio M .D. [facility] [place], [place] [address] (Hector rk) documented as of this encounter Visit Diagnoses Not on filedocumented in this encounter
--- OUTSIDE RECORDS SUMMARY | 2022-03-06 07:13 | XMS_ITS | Encounter Summary ---
:1995 Author Organization [facility] Address [address] [place] [address] Care Team Providers Name Role Phone Unavailable Primary Care Provider Unavailable Encounter Details Date Type Department Care Team Description 10/28/2012 Hospital Encounter HX [facility]E Elia Babcock, D.OSebastian [address] [place], [place] [address] (Wo rk) Social History Tobacco [...] How often do you attend sabianist or restorationist More than 4 time s [...] at Date Recorded Female 06/21/2021 12:52 PM [employer] documented as of this encounter Last Filed Vital Signs Vital Sign Reading Time Taken Comments Blood Pressure 104/70 10/28/2012 9:45 AM CDT Pulse 78 10/28/2012 9:45 AM CDT Temperature - - Respiratory Rate 20 10/28/2012 9:45 AM CDT Oxygen Saturation - - Inhaled Oxygen Concentration - - Weight - - Height - - Body Mass Index - - documented in this encounter Progress Notes Marcus Simmons D.O. - 10/28/2012 9:38 AM CDT [id number] CHIEF COMPLAINT/REASON FOR VISIT Vomiting. HISTORY OF PRESENT ILLNESS This is a 17-year-old female, who comes to us with complaints of an illness. She started with diarrhea about 2 days ago. She had 5-6 episodes of diarrhea yesterday and about four episodes of diarrhea since this morning. She has not noticed any blood or excess mucus in her diarrhea. She says that last night she started to not feel well, and started vomiting. She has had dry heaves with a little bit ofbilious vomit about every half an hour since that time. She has been trying to drink some water as well as eat some crackers but really nothing will stay down she just feels overall like . She says that she feels like she has a little bit of a fever last night, felt hot and some chills and just overall had a rough night last night. No exposures that she is aware of. She has not had any recent travel. No recent antibiotic usage. Nothing new or different. She does have a history of having gastrointestinal illnesses and needing IV fluids because of dehydration, and says that she feels like she is at that point today. Mom is accompanying her to clinic today. Patient notes some sharp stabby, cramping pain in the epigastric region that has slowly gotten worsesince yesterday. Resolves with vomiting but then very quickly comes back after she vomits. SOCIAL HISTORY Patient is nonsmoker, daily caffeine use for soft drinks. No illicit drug use. ALLERGIES No known drug allergies. VITAL SIGNS Temp 37.2 pulse 88, respirations 20, blood pressure 104/70. PHYSICAL EXAMINATION GENERAL: This is a well-appearing 17-year-old female, in mild distress secondary to symptoms. HEENT: Mouth, pharynx clear. Mucous membranes are slightly dry. NECK: Supple with no lymphadenopathy. HEART: Elevated in the mid 90s. LUNGS: Clear. ABDOMEN: Soft and nondistended. Positive bowel sounds heard throughout. There is a little bit of tenderness with palpation of the epigastric region. There is no guarding, rebound or peritoneal signs noted. SKIN: No rashes or erythema seen. IMPRESSION/REPORT/PLAN Acute viral gastroenteritis. PLAN: Given how she is feeling and the fact that she is looking slightly dry, will admit her to the outpatient observation at the hospital and give her 1 L bolus IV fluids. I will also give her a dose of Compazine. Will send a prescription to the pharmacy for Zofran. Recommended a small sips of clear l iquids or sports drinks over the next day while symptoms resolve. If symptoms do not resolve over the next 24-48 hours would recommend re-evaluation at that point. The patient is comfortable with our plan, verbalizes agreement. Marcus Simmons D.O./pos Electronically Signed By: MARCUS SIMMONS DO On: 11/11/2012 09:29 AM Source: [facility] MHSDOLBEYNONRADSYS Document Id: [id number] documented in this encounter Miscellaneous Notes Miscellaneous - Marcus Simmons D.O. - 10/28/2012 10:04 AM CDT Ambulatory Patient Summary [place] [address] [place] [address] Visit Information Name: FLAQUITO TURNER MARTIN [facility] Number: [id number] Current Date: 10/28/2012 10:04:17 Physicians Attending Provider: MARCUS SIMMONS DO Primary Care Provider: CHRIS TOBIAS DO Your Medications Here is a list of your medications. It is important to take your medications as directed. Use a pillbox or chart to help remind you to take your medications. Please let your doctor or nurse know if you have problems taking your medications. Medication/Strength Dose Route Frequency Indications/Special Instructions/Comments acetaminophen-codeine (Tylenol with Codeine #3 oral tablet) 1 tab(s) Oral every 4 hours as needed for Pain before PT twice weekly / No more than 4,000mg acetaminophen/24hrs medroxyPROGESTERone (Depo-Provera Contraceptive 150 mg/ml intramuscular suspension) 150 mg Intramuscular every 90 days dysmenorrhea Attention: If you have any medications at home that are not on this list, DO NOT take them until youcontact your provider for clarification. Your Allergies & Intolerances Substance Reaction Symptoms Category Comments No Known Allergies Drug Your Problem List Problem Status Onset Comments Abdominal pain - Unspecified site Active Elevated Liver Enzymes Active Dysmenorrhea Active 07/01/2010 Other Specified Counseling Active Spasm of Sphincter of Oddi Active 03/04/2011 Your Upcoming Appointments Date Time Location Reason Provider No Appointments found Your Goals/Additional instructions: Source: [facility] POWERCHART Document Id: [id number] Miscellaneous - Marcus Simmons D.O. - 10/28/2012 10:04 AM CDT Ambulatory Depart Summary [place] [address] [place] [address] Visit Information Name: FLAQUITO TURNER [facility] Number: [id number] Visit Date: 10/28/2012 10:04:17 Attending Provider: MARCUS SIMMONS DO Primary Care Provider: CHRIS TOBIAS DO FLAQUITO TURNER has been given the following list of medications: Your Medications It is important to take your medications as directed. Use a pill box or chart to help remind you to take your medications. Please let your doctor or nurse know if you have problems taking your medications. Medication/Strength Dose Route Frequency Indications/Special Instructions/Comments acetaminophen-codeine (Tylenol with Codeine #3 oral tablet) 1 tab(s) Oral every 4 hours as needed for Pain before PT twice weekly / No more than 4,000mg acetaminophen/24hrs medroxyPROGESTERone (Depo-Provera Contraceptive 150 mg/ml intramuscular suspension) 150 mg Intramuscular every 90 days dysmenorrhea Attention: If you have any medications at home that are not on this list, DO NOT take them until youcontact your provider for clarification. Additional Information: Source: [facility] POWERCHART Document Id: [id number] Miscellaneous - China Munoz C.M.A. - 10/28/2012 9:45 AM CDT Adult Judge Clerk Intake/History Adult Judge Clerk Intake/History Entered On: 10/28/2012 9:49 CDT Performed On: 10/28/2012 9:45 CDT by CHINA MUNOZ Intake Chief Complaint : vomitting started yesterday, not able to eat or drink anything Temperature Core : 37.2 DegC(Converted to: 99.0 DegF) Peripheral Pulse Rate : 78 /min Respiratory Rate : 20 /min Systolic Blood Pressure : 104 mmHg Diastolic Blood Pressure : 70 mmHg NIBP Mean : 81 mmHg BP Location : Left upper extremity Blood Pressure Cuff Size : Regular CHINA MUNOZ - 10/28/2012 9:45 CDT General Info Information Given By : Patient Preferred Communication Mode : Verbal Languages : Armenian CHINA MUNOZ - 10/28/2012 9:45 CDT Subjective Pain Symptoms : Yes CHINA MUNOZ - 10/28/2012 9:45 CDT Pain Pain Assessment Grid Pain 1 Pain 2 Location : Abdomen Lower back Laterality : Bilateral Bilateral Intensity : 9 9 CHINA MUNOZ - 10/28/2012 9:45 CDT CHINA MUNOZ - 10/28/2012 9:45 CDT Dependent Habits Tobacco Use/Currently Using : No Smoking Status : Never smoker CHINA MUNOZ - 10/28/2012 9:45 CDT Tobacco Use Grid Last Use : never MERKATHIBABS Conde - 10/28/2012 9:45 CDT Alcohol Use : No ROBERTKATHI MCGRAWBABS Conde - 10/28/2012 9:45 CDT Caffeine Use Grid Caffeine Use : Current Type : Soft drinks Frequency : Daily Amount : 1 ROBERTKATHI MCGRAWBABS Conde - 10/28/2012 9:45 CDT Recreational Drug Use Grid Drug Use : None MERKATHIBABS Conde - 10/28/2012 9:45 CDT [facility] Document Id: [id number] CDT!43 documented in this encounter Plan of Treatment Upcoming Encounters Date Type Specialty Care Team Description 04/22/2022 Appointment Laboratory Medicine Meryl Julio M.D. [facility] [place], [place] [address] (Hector martin) 04/29/2022 Office Visit Endocrinology Meryl Julio M .D. [address] [place], [place] [address] (Hector martin) documented as of this encounter Visit Diagnoses Not on filedocumented in this encounter
--- OUTSIDE RECORDS SUMMARY | 2022-03-06 07:13 | XMS_ITS | Encounter Summary ---
:1995 Author Organization [facility] Address [address] [place] [address] Care Team Providers Name Role Phone Unavailable Primary Care Provider Unavailable Encounter Details Date Type Department Care Team Description 08/27/2012 Hospital Encounter HX [facility] Jerry Durand M.D. 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 - 08/27/2012 8:53 AM CDT [facility] DATE: 08/27/2012 CHIEF COMPLAINT/REASON FOR VISIT Preoperative physical examination. HISTORY OF PRESENT ILLNESS Ms. Turner is a pleasant 17-year-old female who presents to the clinic today for preoperative physical examination. She states that she has been scheduled for a left knee arthroscopy procedure for medial patellofemoral ligament reconstruction with Dr. Luke Armendariz on September 02, 2012 at [facility]. She states that she sustained an injury to her left knee back in December 2011. 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 She accidentally injured and twisted the left knee, trying to support when the resident slipped. She did complain of immediate pain just below the kneecap. She denies redness or bruising. There was swelling. The pain is 5/10, constant, certain movements exacerbates the pain, resting alleviates the pain, and no radiation of the pain. She has followed up with Orthopedics at [facility] since last December 2011. She was evaluated and referred to physical therapy for rehabilitation. She did not think the physical therapy helped alleviating the pain. Due to persistent pain, subsequently she was evaluated by Dr. Armendariz a month ago. She also has had MRI done as well. They came to agreement to have the procedure done on above-mentioned date. Currently she is using a knee brace and taking NSAIDs as needed for pain control with little benefit. She does complain of some locking, popping, and giving way occasionally. There is no weakness reported on bilateral lower legs. She does have numbness and tingling somehow, especially on the foot and the toes. Otherwise, she does not have any other complaint regarding her health. Ms. Turner has been complaining of congestion and runny nose for the past few days. The nasal drainage is clear. She denies fever, chills, nausea, vomiting, sinus tenderness, earaches or sore throat. She has some productive cough with yellowish phlegm. There is no shortness of breath or wheezing. She has been taking over the counter cough medication with little benefit. Otherwise, she is healthy; shedenies history of bleeding disorder or complications with anesthesia medication. PAST MEDICAL/SURGICAL HISTORY MEDICAL: 1. Dysmenorrhea 2. History of Sphincter of Oddi dysfunction SURGICAL: 1. Cholecystectomy 2. Appendectomy 3. Sphincter of Oddi surgery SOCIAL HISTORY She denies smoking cigarettes, drinking alcohol, or using illicit drug uses. 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 FAMILY HISTORY Mother has history of endometriosis. Father is healthy. CURRENT MEDICATIONS Depo-Provera 150 mg once every 3 months. ALLERGIES No known allergies. SYSTEMS REVIEW GENERAL: She denies fever, chills, fatigue, and unintentional weight loss. HEENT: She denies visual changes, hearing changes, sore throat. She does complain of congestion and runny nose. CARDIOVASCULAR: She denies chest pain, shortness of breath, palpitations, diaphoresis, heart murmur. LUNGS: She complains of cough. She denies wheezing, shortness of breath, hemoptysis. GI: She denies nausea, vomiting, abdominal pain, diarrhea, constipation, black tarry stool, or bloodin the stool. : She denies dysuria, urgency, frequency, incontinence, gross blood in the urine, vaginal discharge, or vaginal bleeding. MUSCULOSKELETAL: She complains of left knee pain. She denies joint swelling or muscle aches. NEUROLOGIC: She denies history of seizure, loss of consciousness, migraine headache. SKIN: She denies rash. VITAL SIGNS Blood pressure is 110/64, heart rate is 80, respirations 20, temperature is 37 Celsius, height 168 cm, weight is 71 kg, and BMI 25. PHYSICAL EXAMINATION GENERAL: Alert and oriented x3, not in any acute distress. HEENT: Normocephalic, atraumatic. Eyes - Pupils equal, round, reactive to light and accommodation. Extraocular muscles intact bilaterally. Ears - Tympanic membranes intact bilaterally. No erythema or drainage. No effusion. Nose positive for swelling of the turbinates with clear rhinorrhea. Pharynx - No hyperemia. No exudates. Positive for postnasal drip. NECK: Supple. No cervical lymphadenopathy. No thyromegaly. Trachea in midline position. CARDIOVASCULAR: Regular rate and rhythm. No murmur or gallops. No palpable thrill. LUNGS: Clear breath sounds. No crackles or expiratory wheezes. Symmetrical excursion bilaterally. ABDOMEN: Soft, nontender. Bowel sounds in all 4 quadrants. No hepatosplenomegaly. : Deferred. MUSCULOSKELETAL: Left knee examination - No erythema, ecchymosis, or edema noted. She complains of some tenderness on palpation at the infrapatellar region. No crepitation noted. She is able to do hip flexion, knee extension and flexion as well. Pearl test is negative. Anterior and posterior drawer tests are negative. Keily test is positive. Gait is normal. She is able to do toe walking and heelwalking. NEURO: Cranial nerves II-XII grossly intact. Sensory is intact. Motor strength 5/5 in all 4 extremities. Deep tendon reflexes 2/4 bilaterally. Coordination test is intact. Romberg test is negative. SKIN: No rashes. IMPRESSION/REPORT/PLAN 1. Preoperative physical examination. Discussed with Ms. Turner, her vital signs are stable; she is fully optimized for the procedure. She can be cleared for the planned procedure. I advised her to avoid taking NSAIDs 1 week from the procedure. She fully understood regarding the risks. All of her questions are answered to her satisfaction. 2. Rhinitis. She was prescribed fluticasone nasal spray to be used twice daily for the next few weeks. She can hold the nasal spray on the day of the surgery. I advised her to take Mucinex as needed, which might help to alleviate the cough as well. She will monitor this, if there is worsening of her symptoms I advised her to return to the clinic for follow up sooner. She verbalized understanding and agreement. Mumtaz Doc#: [id number] cc: Electronically Signed By: JERRY RAWLS MD On: 08/28/2012 09:29 AM Modified by and Electronically Signed by: JERRY RAWLS MD On: 08/28/2012 09:29 AM Source: [facility] ISJDICTAPHONESYS Document Id: [id number] documented in this encounter Miscellaneous Notes Miscellaneous - Jerry aRwls M.D. - 08/27/2012 9:46 AM CDT Ambulatory Patient Summary [address] [address] Visit Information Name: FLAQUITO TURNER [facility] Number: [id number] Current Date: 08/27/2012 09:46:09 Physicians Attending Provider: JERRY RAWLS MD Primary Care Provider: CHRIS TOBIAS DO Your Medications Here is a list of your medications. It is important to take your medications as directed. Use a pillbox or chart to help remind you to take your medications. Please let your doctor or nurse know if you have problems taking your medications. Medication/Strength Dose Route Frequency Indications/Special Instructions/Comments fluticasone nasal (fluticasone 50 mcg/inh nasal spray) 1 spray(s) Nostrils(Both) two times a day Rhinitis medroxyPROGESTERone (Depo-Provera Contraceptive 150 mg/ml intramuscular suspension) [...] No Appointments found Your Goals/Additional instructions: Source: [facility] [employer] Document Id: [id number] Rafael - Jerry Rawls M.D. - 08/27/2012 9:46 AM CDT Ambulatory Depart Summary [address] [address] Visit Information Name: FALQUITO TURNER [facility] Number: [id number] Visit Date: 08/27/2012 09:46:08 Attending Provider: JERRY RAWLS MD Primary Care Provider: CHRIS TOBIAS DO FLAQUITO TURNER has been given the following list of medications: Your Medications It is important to take your medications as directed. Use a pill box or chart to help remind you to take your medications. Please let your doctor or nurse know if you have problems taking your medications. Medication/Strength Dose Route Frequency Indications/Special Instructions/Comments fluticasone nasal (fluticasone 50 mcg/inh nasal spray) 1 spray(s) Nostrils(Both) two times a day Rhinitis medroxyPROGESTERone (Depo-Provera Contraceptive 150 mg/ml intramuscular suspension) 150 mg Intramuscular every 90 days dysmenorrhea Attention: If you have any medications at home that are not on this list, DO NOT take them until youcontact your provider for clarification. Additional Information: [facility] Document Id: [id number] Rafael - China Munoz C.M.A. - 08/27/2012 9:18 AM CDT Adult Stock Handler Intake/History Adult Stock Handler Intake/History Entered On: 08/27/2012 9:21 CDT Performed On: 08/27/2012 9:18 CDT by CHINA MUNOZ Intake Chief Complaint : pre-op left knee surgery , 09/02/12 at [facility] Onset of Symptoms : w/c 01/23/12 Temperature Core : 37DegC(Converted to: 98.6DegF) Peripheral Pulse Rate : 80/min Respiratory Rate : 20/min Systolic Blood Pressure : 110mmHg Diastolic Blood Pressure : 64mmHg NIBP Mean : 79mmHg Height : 168.5cm(Converted to: 5ft 6inch(es), 66.34inch(es)) Actual Weight : 71.4kg(Converted to: 157lb 7oz) Dosing Weight Clinic : 71.40kg Clinic BSA : 1.83 Body Mass Index : 25.15kg/m2 MERKATHIBABS Conde 08/27/2012 9:18 CDT General Info Information Given By : Patient Preferred Communication Mode : Verbal Languages : Citizen Of [place] CHINA MUNOZ 08/27/2012 9:18 CDT Subjective Pain Symptoms : Yes CHINA MUNOZ 08/27/2012 9:18 CDT Pain Pain Assessment Grid Pain 1 Location : Knee Laterality : Left Intensity : 5 CHINA MUNOZ 08/27/2012 9:18 CDT Dependent Habits Tobacco Use/Currently Using : No Smoking Status : Never smoker MERKATHIBABS Conde 08/27/2012 9:18 CDT Tobacco Use Grid Last Use : never CHINA MUNOZ 08/27/2012 9:18 CDT Alcohol Use : No CHINA MUNOZ 08/27/2012 9:18 CDT Caffeine Use Grid Caffeine Use : Current Type : Soft drinks Frequency : Daily Amount : 1 MERKATHIBABS Conde 08/27/2012 9:18 CDT Recreational Drug Use Grid Drug Use : None CHINA MUNOZ 08/27/2012 9:18 CDT Allergy Allergies (Active) NKA Estimated Onset Date: Unspecified ; Created By: BRUNO PENG; Reaction Status: Active ; Category: Drug ; Substance: NKA ; Type: Allergy ; Updated By: BRUNO PENG; Reviewed Date: 08/27/2012 9:17 CDT Source: [facility] POWERCHART Document Id: [id number] documented in this encounter Plan of Treatment Upcoming Encounters Date Type Specialty Care Team Description 04/22/2022 Appointment Laboratory Medicine Meryl Julio M.D. [address] [place] [address] (Wo rk) 04/29/2022 Office Visit Endocrinology Meryl Julio M .D. [address] [place] [address] (Wo rk) documented as of this encounter Visit Diagnoses Not on filedocumented in this encounter
--- OUTSIDE RECORDS SUMMARY | 2022-03-06 07:14 | XMS_ITS | Encounter Summary ---
:1995 Author Organization [facility] Address [address] [place] [address] Care Team Providers Name Role Phone Unavailable Primary Care Provider Unavailable Encounter Details Date Type Department Care Team Description 03/05/2012 Hospital Encounter HX [facility] LENNOX Aguilera, in 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 documented as of this encounter Procedure Notes Conversion, Historical Provider Ser - 03/05/2012 4:26 PM CDT Depo-Provera Administration Depo-Provera Administration Entered On: 03/05/2012 16:27 CDT Performed On: 03/05/2012 16:26 CDT by CRISTIANO WINTERS LPN Depo-Provera Administration Annual Exam in the Past 12 Months : Yes Return appointment : 05/21/2012 SALESPERSON JEWELRY Needs test : No CRISTIANO WINTERS LPN - 03/05/2012 16:26 CDT Source: [facility] [employer] Document Id: [id number] documented in this encounter Plan of Treatment Upcoming Encounters Date Type Specialty Care Team Description 04/22/2022 Appointment Laboratory Medicine Meryl Julio M.D. [address] [place] [address] (Hector martin) 04/29/2022 Office Visit Endocrinology Meryl Julio M .D. [address] [place] [address] (Hector martin) documented as of this encounter Visit Diagnoses Not on filedocumented in this encounter
--- OUTSIDE RECORDS SUMMARY | 2022-03-06 07:14 | XMS_ITS | Encounter Summary ---
:1995 Author Organization [facility] Address [address] [place] [address] Care Team Providers Name Role Phone Unavailable Primary Care Provider Unavailable Encounter Details Date Type Department Care Team Description 08/05/2012 Hospital Encounter [facility]X [facility] Jerry Durand M.D. 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 [address] [place], [place] [address] (Hector martin) 04/29/2022 Office Visit Endocrinology Meryl Julio M .D. [address] [place], [place] [address] (Hector martin) documented as of this encounter Visit Diagnoses Not on filedocumented in this encounter
--- OUTSIDE RECORDS SUMMARY | 2022-03-06 07:14 | XMS_ITS | Encounter Summary ---
:1995 Author Organization [facility] Address [address] [place] [address] Care Team Providers Name Role Phone Unavailable Primary Care Provider Unavailable Encounter Details Date Type Department Care Team Description 06/04/2011 Hospital Encounter HX [facility] 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 [address] [place], [place] [address] (Wo rk) 04/29/2022 Office Visit Endocrinology Meryl Julio M .D. [address] [place], [place] [address] (Hector rk) documented as of this encounter Procedures Procedure Name Priority Date/Time Associated Diagnosis Comme nts HEPATIC FUNCTION Routine 06/04/2011 8:40 AM Resul ts for this PANEL, S SPINAL SURGEON procedure are i n the results section. GAMMA-GLUTAMYLTRANS Routine 06/04/2011 8:40 AM Re sults for this FERASE (GGT), S/P SPINAL SURGEON procedure are in the results section. BASIC METABOLIC Routine 06/04/2011 8:40 AM Result s for this PANEL, S/P SPINAL SURGEON procedure are i n the results section. documented in this encounter Results BMP (Basic Metabolic Panel) (06/04/2011 8:40 AM SPINAL SURGEON) athologist Signature Glucose, 90 70 - 99 POWERCHART Fasting, S MGDL Comment: Results for this accession were completed 06-04-2011 at 10:05 a.m. by _cj Creatinine 0.6 0.3 - 1.4 MGDL POWERCHART BUN (Blood Urea Nitrogen), S 16 6 - 18 MGDL POWERCHART Calcium, Total, S 9.2 8.5 - 10.5 MGDL POWERC KELLY Sodium, S 139 135 - 146 MMOLL POWERCHART Potassium, S 4.1 3.5 - 5.3 MMOLL POWERCHART Chloride, S 105 94 - 113 MMOLL POWERCHART CO2 Total 28 24 - 32 MMOLL POWERCHART Anion Gap 10 7 - 16 MMOLL POWERCHART HXeGFR (MDRD) Not performed. >=60 POWERCHART eGFR Black/ Not performed. >=60 POWERCHART Specimen (Source) Anatomical Collection Method Collection Time Re ceived Time Location / / Volume Laterality Blood 06/04/2011 8:40 AM SPINAL SURGEON Kelly Ragland.OSebastian LAB BLOOD ADD-ON Performing Organization Address [facility] Code Phon e Number POWERCHART GGT (Gamma-Glutamyltransferase) (06/04/2011 8:40 AM SPINAL SURGEON) JumpTime Method Time Signature Gamma 16 0 - 68 POWERCHART Glutamyltransferase UNITL (GGT), S Specimen (Source) Anatomical Collection Method Collection Time Re ceived Time Location / / Volume Laterality Blood 06/04/2011 8:40 AM SPINAL SURGEON Kelly Aguilera D.O. LAB BLOOD ADD-ON Performing Organization Address [facility] Phon e Number POWERCHART (ABNORMAL) Hepatic Function Panel (06/04/2011 8:40 AM SPINAL SURGEON) JumpTime Method Time Signature Alkaline 148 (H) 34 - 114 POWERCHART Phosphatase, S UL Aspartate 11 4 - 33 UL POWERCHART Aminotransferase (AST), S Alanine 13 2 - 45 UL POWERCHART Amniotransferase, LD Bilirubin, Total, S 0.4 0.1 - 1.2 POWERCHART MGDL Total Protein, S 6.6 6.5 - 8.3 POWERCHART GDL Albumin, S 4.6 3.5 - 5.1 POWERCHART GMDL Bilirubin, Direct, S 0.1 0.0 - 0.3 POWERCHAR T MGDL Specimen (Source) Anatomical Collection Method Collection Time Re ceived Time Location / / Volume Laterality Blood 06/04/2011 8:40 AM SPINAL SURGEON Kelly Aguilera D.OSebastian LAB BLOOD ADD-ON Performing Organization Address [facility] Phon e Number POWERCHART documented in this encounter Visit Diagnoses Not on filedocumented in this encounter
--- OUTSIDE RECORDS SUMMARY | 2022-03-06 07:14 | XMS_ITS | Encounter Summary ---
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 - 04/28/2011 10:48 AM CST [facility] 04/28/2011 REASON FOR VISIT Rash. HISTORY OF PRESENT ILLNESS This is a pleasant 15-year-old female, comes in today with her mother with complaints of a rash. Thepatient has noticed that it has been there for the past two weeks, not really gotten better, not really getting worse. It is quite itchy and occasionally painful, kind of in the middle of it. She has never had anything like this before. They are wondering if it is possibly ringworm. They had their dogchecked out this morning at the vet, and he does not have any ringworm, so not quite sure where she would have picked it up. They have not tried any nvkd-jsw-twlqrso treatment on it. She is wondering what to do. No fever or chills; otherwise feels in good health. No other rashes on any other part of her body other than this one spot on her abdomen. EXAMINATION GENERAL: Stable-appearing 15-year-old female in no distress. VITALS: Stable. Afebrile. SKIN: Examination of skin on the belly reveals a circular, dry scaly with central scaling and erythema present on the right side of the abdomen consistent with tinea corporis. IMPRESSION/REPORT/PLAN Tinea corporis. PLAN Recommended lpbu-cwj-jafigrc antifungal mixed with a little bit of 1% hydrocortisone three times daily for the next week. Re-evaluation if no improvement. The patient is comfortable with our plan, verbalized agreement. Alphonse Doc#: [id number] cc: Electronically Signed By: MARCUS SIMMONS DO On: 05/01/2011 11:36 AM Source: [facility] [place] [employer] Document Id: [id number] RINARY ASSISTANT TECHNICIAN documented in this encounter Miscellaneous Notes Miscellaneous - Marcus Simmons D.O. - 04/28/2011 11:14 AM CST Ambulatory Patient Summary [place] [place] [address] [place] [phone] Visit Information Name: FLAQUITO TURNER MARTIN Current Date: 04/28/2011 11:14:05 Primary Care Provider: CHRIS TOBIAS DO Your Medications Here is a list of your medications. It is important to take your medications as directed. Use a pillbox or chart to help remind you to take your medications. Please let your doctor or nurse know if you have problems taking your medications. Medication/Strength Dose Route Frequency Indications/Special Instructions/Comments gabapentin (gabapentin 300 mg oral capsule) 300 mg Oral three times a day for abd pain from [place] Your Allergies & Intolerances Substance Reaction Symptoms Category Comments NKA Drug Your Problem List Problem Status Onset Comments Abdominal pain - Unspecified site Active Elevated Liver Enzymes Active Dysmenorrhea Active 07/01/2010 Other Specified Counseling Active Spasm of Sphincter of Oddi Active 03/04/2011 Your Recommendations We want to make sure you get the tests, immunizations, and guidance you need to stay healthy. Here is a customized list of recommendations, based on information we have in your medical record. Your doctor may have additional recommendations for you, based on your personal medical history and risk factors. You can help us by calling us to make an appointment when you are due for your tests. Additional information regarding recommendations: Test/Treatment Last Done Next Due Additional Information Screening Chlamydia every 1 year Females Age 16-24 10/04/2010 11/03/2010 Your Upcoming Appointments Date Time Location Reason Provider 05/07/2011 08:35 [facility] 05/21/2011 09:40 [facility] Your Goals/Additional instructions: Source: [facility] [place] POWERCHART Document Id: [id number] RINARY ASSISTANT TECHNICIAN Miscellaneous - Marcus Simmons D.O. - 04/28/2011 11:14 AM CST Ambulatory Depart Summary [facility] [place] [address] [place] [phone] Visit Information Name: FLAQUITO TURNER Current Date: 04/28/2011 11:14:05 Primary Care Provider: CHRIS TOBIAS DO FLAQUITO TURNER has been given the following list of medications: Your Medications It is important to take your medications as directed. Use a pill box or chart to help remind you to take your medications. Please let your doctor or nurse know if you have problems taking your medications. Medication/Strength Dose Route Frequency Indications/Special Instructions/Comments gabapentin (gabapentin 300 mg oral capsule) 300 mg Oral three times a day for abd pain from [place] Additional Information: Yes - Current list of reconciled medications is provided and explained to the patient and/or family, guardian/caregiver. Source: [facility] [place] POWERCHART Document Id: [id number] RINARY ASSISTANT TECHNICIAN Miscellaneous - Natacha Simons L.P.N. - 04/28/2011 10:57 AM CST Pediatric Process Coach Intake/History Pediatric Process Coach Intake/History Entered On: 04/28/2011 11:00 VETERINARY ASSISTANT TECHNICIAN Performed On: 04/28/2011 10:57 VETERINARY ASSISTANT TECHNICIAN by NATACHA SIMONS Intake Ambulatory Intake Additional Information : Ruperto..Yuliet NATACHA SIMONS - 04/28/2011 11:00 VETERINARY ASSISTANT TECHNICIAN Chief Complaint : Rash on abdomen Onset of Symptoms : 2 weeks Temperature Core : 36.7C(Converted to: 98.1DegF) Peripheral Pulse Rate : 88/min Respiratory Rate : 16/min Systolic Blood Pressure : 112mmHg Diastolic Blood Pressure : 68mmHg NIBP Mean : 83mmHg BP Location : Left upper extremity Actual Weight : 76.6kg(Converted to: 168lb 14oz) Dosing Weight Clinic : 76.60kg NATACHA SIMONS - 04/28/2011 10:57 VETERINARY ASSISTANT TECHNICIAN Subjective Pain Symptoms : No NATACHA SIMONS - 04/28/2011 10:57 VETERINARY ASSISTANT TECHNICIAN Dependent Habits Tobacco Use/Currently Using : No Smoking Status : Never smoker NATACHA SIMONS - 04/28/2011 10:57 VETERINARY ASSISTANT TECHNICIAN Caffeine Use Grid Caffeine Use : Current Type : Soft drinks Frequency : Daily Amount : 1 NATACHA SIMONS - 04/28/2011 10:57 VETERINARY ASSISTANT TECHNICIAN Recreational Drug Use Grid Drug Use : None NATACHA SIMONS - 04/28/2011 10:57 VETERINARY ASSISTANT TECHNICIAN Allergy Allergies (Active) NKA Estimated Onset Date: Unspecified ; Created By: BRUNO PENG; Reaction Status: Active ; Category: Drug ; Substance: NKA ; Type: Allergy ; Updated By: BRUNO PENG; Reviewed Date: 04/28/2011 10:55 VETERINARY ASSISTANT TECHNICIAN Source: [facility] [place] [employer] Document Id: [id number] VETERINARY ASSISTANT TECHNICIAN!3 RINARY ASSISTANT TECHNICIAN documented in this encounter Plan of Treatment Upcoming Encounters Date Type Specialty Care Team Description 04/22/2022 Appointment Laboratory Medicine Meryl Julio M.D. [address] [place] [address] (Hector martin) 04/29/2022 Office Visit Endocrinology Meryl Julio M .D. [facility] [place], [place] [address] (Hector martin) documented as of this encounter Visit Diagnoses Not on filedocumented in this encounter
--- OUTSIDE RECORDS SUMMARY | 2022-03-06 07:14 | XMS_ITS | Encounter Summary ---
:1995 Author Organization [facility] Address [address] [place] [address] Care Team Providers Name Role Phone Unavailable Primary Care Provider Unavailable Encounter Details Date Type Department Care Team Description 07/28/2011 Hospital Encounter HX [facility] Aguilera, in [place], [address] [place] [address] (Wo rk) Social History Tobacco Use [...] How often do you attend taoist or hoahaoism More than 4 time s [...] at Date Recorded Female 06/21/2021 12:52 PM MONEY MANAGER documented as of this encounter Last Filed Vital Signs Vital Sign Reading Time Taken Comments Blood Pressure - - Pulse 82 07/28/2011 4:15 PM MONEY MANAGER Temperature - - Respiratory Rate 20 07/28/2011 4:15 PM MONEY MANAGER Oxygen Saturation - - Inhaled Oxygen Concentration - - Weight - - Height - - Body Mass Index - - documented in this encounter Progress Notes Chris Aguilera D.O. - 07/28/2011 4:08 PM CST [facility] DATE: 07/28/2011 REASON FOR VISIT Recheck dysmenorrhea, cold. HISTORY OF PRESENT ILLNESS Flaquito is a 15-year-old female who presents to the clinic today for re- evaluation. She has a history of chronic abdominal pain as well as dysmenorrhea. She has been evaluated at [facility] both through gastroenterology and the AUTO SERVICE REPRESENTATIVE department. I last saw her about a month ago. At that time, we reviewed the records from [facility] and opted to initiate therapy with Depo-Provera injections. She is here today for evaluation. She had a little bit of spotting after the initial injection. She did haveone time where she had some mild lower abdominal cramps which were well-controlled with naproxen. She has been amenorrheic essentially since her injection. She states that generally her pain is improved. She has had no episodes of nausea, vomiting, upper abdominal pain, diarrhea, or constipation. She has had one episode of low back pain consistent with her previous cramping but not as severe. Flaquito's main concern today is that of cold symptoms. She states this began 3 days ago after she had exposure to 2 sick kids while [place] was [place] near [place]. On her way back, she began sneezing and had a runny nose and sore throat. It has progressed to bilateral ear fullness and pain, ongoing sore throat, and a nonproductive cough. She wonders if she mayhave had a fever last night, as she was sweating profusely. She has had no chills or rigors. She admits to all-over body aches. No nausea, vomiting, or diarrhea. She has no known strep exposure or influenza exposure. She did not receive her influenza immunization this year. MEDICATIONS As listed in [facility] summary dated July 28, 2011. ALLERGIES No known drug allergies. EXAMINATION VITAL SIGNS: Temp 36.9, pulse 82, respirations 20. GENERAL: This is a well-appearing 15-year-old in no acute distress. HEENT: Bilateral tympanic membranes show mild middle ear effusion. Nose reveals profuse rhinorrhea. Mouth: Mucous membranes are moist. There is no tonsillar enlargement. No palatal petechia noted. There is no erythema of the posterior pharynx. Mild postnasal drip. NECK: Supple. There is no lymphadenopathy or thyroid enlargement. HEART: Regular. LUNGS: Clear to auscultation bilaterally. ABDOMEN: Soft, nontender. IMPRESSION/REPORT/PLAN 1. Acute upper respiratory infection. Would recommend supportive care including nasal saline washes,Tylenol, ibuprofen as needed for pain, rest, and fluids. She was given a note for school. She was instructed not to return to school if she has been febrile within the last 24 hours. If symptoms persist beyond 10-14 days, she should be re-evaluated due to the concern for possible ear infection or sinus infection. 2. Dysmenorrhea. Thus far, this has improved somewhat with use of Depo-Provera injection. Will plan followup in 3-6 months. She was in understanding and agreement with the plan. Karen Doc#: [id number] cc: Electronically Signed By: CHRIS AGUILERA DO On: 08/05/2011 07:50 AM Modified by and Electronically Signed by: CHRIS AGUILERA DO On: 08/05/2011 07:50 AM Source: [facility] [employer] Document Id: [id number] documented in this encounter Miscellaneous Notes Miscellaneous - Chris Aguilera D.O. - 07/28/2011 4:29 PM CST Ambulatory Patient Summary [facility] [address] [place] [phone] Visit Information Name: FLAQUITO TURNER Current Date: 07/28/2011 16:29:38 Physicians Attending Provider: CHRIS AGUILERA DO Primary Care Provider: CHRIS AGUILERA DO Your Medications Here is a list of your medications. It is important to take your medications as directed. Use a pillbox or chart to help remind you to take your medications. Please let your doctor or nurse know if you have problems taking your medications. Medication/Strength Dose Route Frequency Indications/Special Instructions/Comments naproxen (Naprosyn 500 mg oral tablet) 500 mg Oral two times a day with meals dysmenorrhea with food medroxyPROGESTERone (Depo-Provera Contraceptive 150 mg/ml intramuscular suspension) 150 mg Intramuscular every 90 days dysmenorrhea gabapentin (gabapentin 300 mg oral capsule) 300 mg Oral two times a day for abd pain from [facility] Attention: If you have any medications at [...] Chlamydia every 1 year Females Age 16-24 06/16/2011 06/15/2012 Your Upcoming Appointments Date Time Location Reason Provider No Appointments found Your Goals/Additional instructions: Source: [facility] POWERCHART Document Id: [id number] [address] [facility] - Chirs Aguilera D.O. - 07/28/2011 4:29 PM CST Ambulatory Depart Summary [place] [address] [place] [address] Visit Information Name: FLAQIUTO TURNER Visit Date: 07/28/2011 16:29:38 Attending Provider: CHRIS AGUILERA DO Primary Care Provider: CHRIS AGUILERA DO FLAQUITO TURNER has been given the following list of medications: Your Medications It is important to take your medications as directed. Use a pill box or chart to help remind you to take your medications. Please let your doctor or nurse know if you have problems taking your medications. Medication/Strength Dose Route Frequency Indications/Special Instructions/Comments naproxen (Naprosyn 500 mg oral tablet) 500 mg Oral two times a day with meals dysmenorrhea with food medroxyPROGESTERone (Depo-Provera Contraceptive 150 mg/ml intramuscular suspension) 150 mg Intramuscular every 90 days dysmenorrhea gabapentin (gabapentin 300 mg oral capsule) 300 mg Oral two times a day for abd pain Dr gomez [facility] Attention: If you have any medications at home that are not on this list, DO NOT take them until youcontact your provider for clarification. Additional Information: Source: [facility] POWERCHART Document Id: [id number] Y MANAGER Rafael - Chris Aguilera D.O. - 07/28/2011 4:28 PM CST School or Work Excuse School or Work Excuse Entered On: 07/28/2011 16:28 MONEY MANAGER Performed On: 07/28/2011 16:28 MONEY MANAGER by CHRIS AGUILERA DO School or Work Excuse Date Patient Seen : 07/28/2011 MONEY MANAGER School or Work Restrictions : Other: Please excuse Ramírez from school/physical activity for 24-48 hoursdue to illness. CHRIS AGUILERA DO - 07/28/2011 16:28 MONEY MANAGER [facility] Document Id: [id number] MONEY MANAGER!4 Y MANAGER Miscellaneous - China Munoz C.M.A. - 07/28/2011 4:15 PM CST Adult Punching Machine Operator Intake/History Adult Punching Machine Operator Intake/History Entered On: 07/28/2011 16:17 MONEY MANAGER Performed On: 07/28/2011 16:15 MONEY MANAGER by CHINA MUNOZ Intake Chief Complaint : recheck, sick with cold since Thursday Temperature Core : 36.9C(Converted to: 98.4DegF) Peripheral Pulse Rate : 82/min Respiratory Rate : 20/min CHINA MUNOZ - 07/28/2011 16:15 MONEY MANAGER General Info Information Given By : Patient Preferred Communication Mode : Verbal Languages : [place] Citizen CHINA MUNOZ - 07/28/2011 16:15 MONEY MANAGER Subjective Pain Symptoms : Yes CHINA MUNOZ 07/28/2011 16:15 MONEY MANAGER Pain Pain Assessment Grid Pain 1 Pain 2 Pain 3 Location : Throat Generalized (Comment: body aches [CHINA MUNOZ 07/28/2011 16:15 MONEY MANAGER] ) Ear Laterality : Bilateral Bilateral Bilateral Intensity : 6 9 7 CHINA MUNOZ - 07/28/2011 16:15 MONEY MANAGER CHINA MUNOZ 07/28/2011 16:15 MONEY MANAGER CHINA MUNOZ 07/28/2011 16:15 MONEY MANAGER Dependent Habits Tobacco Use/Currently Using : No Smoking Status : Never smoker Alcohol Use : No CHINA MUNOZ 07/28/2011 16:15 MONEY MANAGER Caffeine Use Grid Caffeine Use : Current Type : Soft drinks Frequency : Daily Amount : 1 CHINA MUNOZ 07/28/2011 16:15 MONEY MANAGER Recreational Drug Use Grid Drug Use : None CHINA MUNOZ 07/28/2011 16:15 MONEY MANAGER Allergy Allergies (Active) NKA Estimated Onset Date: Unspecified ; Created By: BRUNO PENG; Reaction Status: Active ; Category: Drug ; Substance: NKA ; Type: Allergy ; Updated By: BRUNO PENG; Reviewed Date: 07/28/2011 16:14 MONEY MANAGER Source: [facility] POWERCHART Document Id: [id number] MONEY MANAGER!37 Y MANAGER documented in this encounter Plan of Treatment Upcoming Encounters Date Type Specialty Care Team Description 04/22/2022 Appointment Laboratory Medicine Meryl Julio M.D. [address] [place] [address] (Hector martin) 04/29/2022 Office Visit Endocrinology Meryl Julio M .D. [address] [place] [address] (Hector martin) documented as of this encounter Visit Diagnoses Not on filedocumented in this encounter
--- OUTSIDE RECORDS SUMMARY | 2022-03-06 07:14 | XMS_ITS | Encounter Summary ---
:1995 Author Organization [facility] Address [address] [place] [address] Care Team Providers Name Role Phone Unavailable Primary Care Provider Unavailable Encounter Details Date Type Department Care Team Description 04/23/2011 Hospital Encounter [facility]X [facility] in 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 [address] [place], [place] [address] (Hector martin) 04/29/2022 Office Visit Endocrinology Meryl Julio M .D. [address] [place], [place] [address] (Hector martin) documented as of this encounter Visit Diagnoses Not on filedocumented in this encounter
--- OUTSIDE RECORDS SUMMARY | 2022-03-06 07:14 | XMS_ITS | Encounter Summary ---
:1995 Author Organization [facility] Address [address] [place] [address] Care Team Providers Name Role Phone Unavailable Primary Care Provider Unavailable Encounter Details Date Type Department Care Team Description 05/21/2011 Hospital Encounter HX [facility] in 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 [address] [place], [place] [address] (Hector martin) 04/29/2022 Office Visit Endocrinology Meryl Julio M .D. [address] [place], [place] [address] (Hector martin) documented as of this encounter Visit Diagnoses Not on filedocumented in this encounter
--- OUTSIDE RECORDS SUMMARY | 2022-03-06 07:14 | XMS_ITS | Encounter Summary ---
:1995 Author Organization [facility] Address [address] [place] [address] Care Team Providers Name Role Phone Unavailable Primary Care Provider Unavailable Encounter Details Date Type Department Care Team Description 02/17/2011 Hospital Encounter HX [facility] Jerry Durand M.D. 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 - 02/17/2011 8:13 AM CDT [facility] 02/17/2011 REASON FOR VISIT Burning with urination. HISTORY OF PRESENT ILLNESS Flaquito is a 15-year-old female, who is accompanied by her mother, presents to the clinictoday complaining of burning with urination for the past 3 days. She states that she has burning sensation while urinating for the past 3 days, she also has to go to the bathroom every 10-15 minutes several times a day. She reports that she still able to hold her urine without any problems. She does notice that her urine slightly cloudy in color, but she denies any red tinge in it. Flaquito reports that she has the same problem back in August 2010 and she was treated with an antibiotic. She also complaining of fever of 101 3 days ago. She is taking Excedrin that is able to control the fever. She does complain of both flank pain. It is sharp, 10/10, intermittent, lying down, moving around exacerbates the pain. It radiates to right upper quadrant of the abdomen. She also complained of slight nausea but denies any vomiting. She can tolerate her diet well and able to hold down any fluids. She denies vaginal discharge or any abdominal cramping due to the period. She states that her last menstrual period was early January; it lasted for 5 days. They have been regular and she denies any heavy bleeding with occasional dysmenorrhea. She is still able to pass gas and she has a regular bowel movement, denies any diarrhea or constipation. PAST MEDICAL, FAMILY, SOCIAL HISTORY Medical: Mom mentions that Flaquito has chronic history of abdominal pain, and has been followed up at [facility] in [place]. She also had an appendectomy and a cholecystectomy done. Mom also mentioned that she had been treated with steroid shot on the abdomen area to dissolve the adhesions due to the multiple surgeries in the past. EXAMINATION VITAL SIGNS: Temperature is 37.5, heart rate is 80, respirations 16, blood pressure is 98/60. GENERAL: Alert and oriented x3. Not in acute distress. CARDIOVASCULAR: Regular rate and rhythm. LUNGS: Clear breath sounds. ABDOMEN: Soft, no guarding, no rebound tenderness, slightly tender on deep palpation over the right and left upper quadrant abdomen. Positive for slight tenderness on bilateral costovertebral angle. DIAGNOSTIC DATA Urinalysis shows color of yellow, specific gravity of 1.025, pH of 5, leukocyte esterase 1+, nitrites negative. Blood is negative, WBCs 10 to 12, bacteria 3+, epithelial 2+. Urine culture pending result. IMPRESSION/REPORT/PLAN Dysuria with back pain, possible secondary to urinary tract infection versus pyelonephritis. I discussed with mom regarding the treatment plan. I prescribed ciprofloxacin 500 mg twice daily for7 days. I encouraged Flaquito to drink plenty of fluids, and also cranberry juice if possible. We will send her urine sample for urine culture as well. I gave Flaquito and her mother warning signs suchas high fever, nausea or vomiting, including flank pain, then she has to be re-evaluated or go to the emergency department as soon as possible. She is also given a school and work excuse on this visit as well. Mom and Flaquito understand and agree with the plan. DARREN/gary Doc#: [id number] cc: Electronically Signed By: JERRY RAWLS MD On: 02/19/2011 11:44 am Modified by and Electronically Signed by: JERRY RAWLS MD On: 02/19/2011 11:44 am Source: [facility] ISJDICTAPHONESYS Document Id: [id number] documented in this encounter Miscellaneous Notes Miscellaneous - Jerry Rawls M.D. - 02/17/2011 9:07 AM CDT School or Work Excuse School or Work Excuse Entered On: 02/17/2011 9:08 CDT Performed On: 02/17/2011 9:07 CDT by JERRY RAWLS MD School or Work Excuse Date Patient Seen: 02/17/2011 CDT School Med Procedure Form Completed: N/A Date of Return to School/Work Without Restrictions: 02/19/2011 CDT Comment: Please excuse Ms Turner from school / work for 2 days ( 02/17/2011 - 02/18/2011 ) due to her medical condition. Thank you. JERRY RAWLS MD - 02/17/2011 9:07 CDT Source: [facility] [employer] Document Id: [id number] CDT!6 Miscellaneous - Jerry Rawls M.D. - 02/17/2011 9:06 AM CDT Ambulatory Patient Summary [place] [address] [place] [address] Visit Information Name: FLAQUITO TURNER Current Date: 02/17/2011 09:06:33 Primary Care Provider: CHRIS TOBIAS DO Your Medications Here is a list of your medications. It is important to take your medications as directed. Use a pillbox or chart to help remind you to take your medications. Please let your doctor or nurse know if you have problems taking your medications. Medication/Strength Dose Route Frequency Indications/Special Instructions/Comments ciprofloxacin (ciprofloxacin 500 mg oral tablet) 500 mg Oral two times a day for 7 Days UTI desogestrel-ethinyl estradiol (Apri oral tablet) 1 tab(s) Oral once a day dysmenorrhea Your Allergies & Intolerances Substance Reaction Symptoms Category Comments NKA Drug Your Problem List Problem Status Onset Comments Abdominal pain - Unspecified site Active Elevated Liver Enzymes Active Dysmenorrhea Active 07/01/2010 Other Specified Counseling Active Your Recommendations We want to make sure [...] No Appointments found Your Goals/Additional instructions: Source: [employer] Document Id: [id number] Rafael - Jerry Rawls M.D. - 02/17/2011 9:06 AM CDT Ambulatory Depart Summary [address] [address] Visit Information Name: FLAQUITO TURNER Current Date: 02/17/2011 09:06:32 Primary Care Provider: CHRIS TOBIAS DO FLAQUITO TURNER has been given the following list of medications: Your Medications It is important to take your medications as directed. Use a pill box or chart to help remind you to take your medications. Please let your doctor or nurse know if you have problems taking your medications. Medication/Strength Dose Route Frequency Indications/Special Instructions/Comments ciprofloxacin (ciprofloxacin 500 mg oral tablet) 500 mg Oral two times a day for 7 Days UTI desogestrel-ethinyl estradiol (Apri oral tablet) 1 tab(s) Oral once a day dysmenorrhea Additional Information: Yes - Current list of reconciled medications is provided and explained to the patient and/or family, guardian/caregiver. Source: [employer] Document Id: [id number] Electronically signed by Conversion, [facility] Area Attendant [id number] at 10/26/2016 1:17 PM CDT Miscellaneous - Conversion, Historical Provider Ser - 02/17/2011 8:36 AM CDT Pediatric Drafting Clerk Intake/History Pediatric Drafting Clerk Intake/History Entered On: 02/17/2011 8:39 CDT Performed On: 02/17/2011 8:36 CDT by TADEO WINTERSChelsey Nicholson LPN Intake Actual Weight: 75.400kg(Converted to: 166lb 4oz) Dosing Weight Clinic: 75.40kg CRISTIANO WINTERS TRACEY - 02/17/2011 8:40 CDT Chief Complaint: bilateral flank pain, started 3 days ago, burning with urination Temperature Core: 37.5C(Converted to: 99.5DegF) Peripheral Pulse Rate: 80/min Respiratory Rate: 16/min Systolic Blood Pressure: 98mmHg Diastolic Blood Pressure: 60mmHg NIBP Mean: 73mmHg CRISTIANO WINTERS TRACEY - 02/17/2011 8:36 CDT General Info Mode of Arrival: Ambulatory Accompanied By: Mother Information Given By: Patient, Mother CRISTIANO WINTERS TRACEY - 02/17/2011 8:36 CDT Subjective Pain Symptoms: Yes CRISTIANO WINTERS Bharat WEBB - 02/17/2011 8:36 CDT Pain Pain Assessment Grid Pain 1 Location: Flank Laterality: Bilateral Intensity: 9 CRISTIANO WINTERS Bharat WEBB - 02/17/2011 8:36 CDT Dependent Habits Tobacco Use/Currently Using: No TADEO WINTERSChelsey Nicholson LPN - 02/17/2011 8:36 CDT Caffeine Use Grid Caffeine Use: Current Type: Soft drinks Frequency: Weekly Amount: 1 CRISTIANO WINTERS Bharat WEBB - 02/17/2011 8:36 CDT Recreational Drug Use Grid Drug Use: None CRISTIANO WINTERS Bharat WEBB - 02/17/2011 8:36 CDT Allergy Allergies (Active) NKA Estimated Onset Date: Unspecified ; Created By: BRUNO PENG; Reaction Status: Active ; Category: Drug ; Substance: NKA ; Type: Allergy ; Updated By: BRUNO PENG; Reviewed Date: 02/17/2011 8:35 CDT [facility] Document Id: [id number] CDT!4 documented in this encounter Plan of Treatment Upcoming Encounters Date Type Specialty Care Team Description 04/22/2022 Appointment Laboratory Medicine Meryl Julio M.D. [facility] [place], [place] [address] (Wo rk) 04/29/2022 Office Visit Endocrinology Meryl Julio M .D. [facility] [place], [place] [address] (Hector rk) documented as of this encounter Visit Diagnoses Not on filedocumented in this encounter
--- OUTSIDE RECORDS SUMMARY | 2022-03-06 07:14 | XMS_ITS | Encounter Summary ---
:1995 Author Organization [facility] Address [address] [place] [address] Care Team Providers Name Role Phone Unavailable Primary Care Provider Unavailable Encounter Details Date Type Department Care Team Description 07/01/2011 Hospital Encounter HX [facility] LENNOX Aguilera, in 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 documented as of this encounter Procedure Notes Emeli Martin CSebastianMAnup - 07/04/2011 10:51 AM CST Depo-Provera Administration Depo-Provera Administration Entered On: 07/04/2011 10:52 DIRECTOR PUBLIC SERVICE Performed On: 07/04/2011 10:51 DIRECTOR PUBLIC SERVICE by EMELI MARTIN Depo-Provera Administration Annual Exam in the Past 12 Months : Yes Needs test : No EMELI MARTIN - 07/04/2011 10:51 DIRECTOR PUBLIC SERVICE Source: [facility] POWERCHART Document Id: [id number] DIRECTOR PUBLIC SERVICE!4 CTOR PUBLIC SERVICE documented in this encounter Plan of Treatment Upcoming Encounters Date Type Specialty Care Team Description 04/22/2022 Appointment Laboratory Medicine Meryl Julio M.D. [address] [place] [address] (Hector martin) 04/29/2022 Office Visit Endocrinology Meryl Julio M .D. [address] [place] [address] (Hector martin) documented as of this encounter Visit Diagnoses Not on filedocumented in this encounter
--- OUTSIDE RECORDS SUMMARY | 2022-03-06 07:14 | XMS_ITS | Encounter Summary ---
:1995 Author Organization [facility] Address [address] [place] [address] Care Team Providers Name Role Phone Unavailable Primary Care Provider Unavailable Encounter Details Date Type Department Care Team Description 09/19/2011 Hospital Encounter HX [facility] LEN[facility] Aguilera, in 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 - 09/19/2011 11:43 AM CDT School or Work Excuse School or Work Excuse Entered On: 09/19/2011 11:44 CDT Performed On: 09/19/2011 11:43 CDT by WOLF MUNOZ School or Work Excuse Date Patient Seen : 09/19/2011 CDT School or Work Restrictions : No Restrictions Comment : patient was seen in clinic on 09/17/11 and 09/19/11 for appointments. [facility] [phone] WOLF MUNOZ - 09/19/2011 11:43 CDT [facility] Document Id: [id number] CDT!5 documented in this encounter Plan of Treatment Upcoming Encounters Date Type Specialty Care Team Description 04/22/2022 Appointment Laboratory Medicine Meryl Julio M.D. [address] [place] [address] (Wo rk) 04/29/2022 Office Visit Endocrinology Meryl Julio M .D. [address] [place] [address] (Wo rk) documented as of this encounter Visit Diagnoses Not on filedocumented in this encounter
--- OUTSIDE RECORDS SUMMARY | 2022-03-06 07:14 | XMS_ITS | Encounter Summary ---
:1995 Author Organization [facility] Address [address] [place] [address] Care Team Providers Name Role Phone Unavailable Primary Care Provider Unavailable Encounter Details Date Type Department Care Team Description 11/18/2011 Hospital Encounter HX [facility] LEN[facility] Aguilera, in 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 HISTORY OF PRESENT ILLNESS Ramírez is an 16-year-old female who presents to clinic today for evaluation of heavy bleeding. She is accompanied today by her mom. Flaquito has been on the Depo-Provera injection for approximately nine months. She states that she generally does get a period every month. She began her current period Monday, November 07, 2011. This was at the usual time but it has been a more prolonged and heavy period. She states initially it began with light spotting and then she had several days of heavy bleeding, going through a pad every few hours. She had no clots or gushing. She states that she thought she was done with her period, but again this morning has had some spotting. She is having mild abdominal cramping, but she does have a history of chronic abdominal pain. She is still undergoing evaluation for this. She has been evaluated by Pediatric Gastroenterology at [facility], Pediatric Gastroenterology at [facility], and recently TROMPER at [facility]. She had an abdominal laparoscopy as well as a hysteroscopy performed by a physician up at [facility] on October 29, 2011. Apparently findings were normal and there is no suggestion of endometriosis. It is of note that about a week afterthis the bleeding began. He did warn her that she may have some heavier than usual bleeding after the procedure. She has not been sexually active. She has no history of STDs or PID. She denies any vaginal discharge or odor. She has had no fevers, chills or sweats. She denies any nausea, vomiting or diarrhea. CURRENT MEDICATIONS Depo-Provera injection, as listed in [facility] per depart summary dated November 18, 2011. ALLERGIES No known drug allergies. VITAL SIGNS Pulse 78, respirations 18, blood pressure 120/70, weight is 71.3 kg. PHYSICAL EXAMINATION GENERAL: This is a well-appearing 16-year-old no acute distress. MOUTH: Mucous membranes are moist. CARDIOVASCULAR: Heart is regular. LUNGS: Clear to auscultation bilaterally. FLANKS: She has bilateral flank pain. This is distractible however. ABDOMEN: Soft. Scars from surgery are healing nicely. GENITOURINARY: Normal external genitalia. There is scant red discharge in the posterior vaginal vault. Cervix is not inflamed. There is no cervical motion tenderness or uterine or adnexal tenderness. There are no masses felt. DIAGNOSTIC DATA: Urine test is negative. Urine Chlamydia screen is pending. IMPRESSION/REPORT/PLAN Menometrorrhagia. I think this is likely due to the recent laparoscopic surgery and hysteroscopy. Ferchoo discussed that breakthrough bleeding can occur with use of progesterone. At this time would recommend symptomatic relief. We discussed using Aleve or naproxen twice daily, scheduled with food for the next two to three days to slow down the bleeding and any cramping that is occurring. Would like to see how things go over the next month or two, as I think she will likely get back to her usual cycle. If bleeding becomes heavy or fails to improve over the next couple of months, could consider initiating oral contraceptives for a month or two on top of the Depo-Provera to help stabilize the endometrial lining. She and her mom were in understanding and agreement with the plan. MIKE/connie Doc#: [id number] cc: Electronically Signed By: CHRIS AGUILERA DO On: 11/20/2011 01:27 PM Source: [facility] ISJDICTAPHONESYS Document Id: [id number] documented in this encounter Miscellaneous Notes Miscellaneous - Chris Aguilera D.O. - 11/18/2011 12:32 PM CDT Ambulatory Depart Summary [address] [place] [address] Visit Information Name: FLAQUITO TURNER Visit Date: 11/18/2011 12:32:02 Attending Provider: CHRIS AGUILERA DO Primary Care [...] medications. Medication/Strength Dose Route Frequency Indications/Special Instructions/Comments medroxyPROGESTERone (Depo-Provera Contraceptive 150 mg/ml intramuscular suspension) 150 mg Intramuscular every 90 days dysmenorrhea Attention: If you have any medications at home that are not on this list, DO NOT take them until youcontact your provider for clarification. Additional Information: Source: [facility] POWERCHART Document Id: [id number] Miscellaneous - Chris Aguilera D.O. - 11/18/2011 12:32 PM CDT Ambulatory Patient Summary [address] [place] [address] Visit Information Name: FLAQUITO TURNER Current Date: 11/18/2011 12:32:03 Physicians Attending Provider: CHRIS AGUILERA DO Primary Care Provider: CHRIS AGUILERA DO Your Medications Here is a list of your medications. It is important to take your medications as directed. Use a pillbox or chart to help remind you to take your medications. Please let your doctor or nurse know if you have problems taking your medications. Medication/Strength Dose Route Frequency Indications/Special Instructions/Comments medroxyPROGESTERone (Depo-Provera Contraceptive 150 mg/ml intramuscular suspension) [...] No Appointments found Your Goals/Additional instructions: Source: [facility] POWERCHART Document Id: [id number] Miscellaneous - China Munoz CSebastianMAnup - 11/18/2011 11:20 AM CDT Adult Dance Professor Intake/History Adult Dance Professor Intake/History Entered On: 11/18/2011 11:23 CDT Performed On: 11/18/2011 11:20 CDT by CHINA MUNOZ Intake Chief Complaint : heavy bleeding x 1 and 1/2 weeks Peripheral Pulse Rate : 78/min Respiratory Rate : 18/min Systolic Blood Pressure : 120mmHg Diastolic Blood Pressure : 70mmHg NIBP Mean : 87mmHg BP Location : Right upper extremity Blood Pressure Cuff Size : Regular Actual Weight : 71.3kg(Converted to: 157lb 3oz) Dosing Weight Clinic : 71.30kg CHINA MUNOZ - 11/18/2011 11:20 CDT General Info Information Given By : Patient Preferred Communication Mode : Verbal Languages : Serbian CHINA MUNOZ - 11/18/2011 11:20 CDT Subjective Pain Symptoms : No CHINA MUNOZ - 11/18/2011 11:20 CDT Dependent Habits Tobacco Use/Currently Using : No Smoking Status : Never smoker Alcohol Use : No CHINA MUNOZ - 11/18/2011 11:20 CDT Caffeine Use Grid Caffeine Use : Current Type : Soft drinks Frequency : Daily Amount : 1 KATHI MUNOZBABS Conde - 11/18/2011 11:20 CDT Recreational Drug Use Grid Drug Use : None KATHI MUNOZBABS Conde - 11/18/2011 11:20 CDT Allergy Allergies (Active) NKA Estimated Onset Date: Unspecified ; Created By: BRUNO PENG; Reaction Status: Active ; Category: Drug ; Substance: NKA ; Type: Allergy ; Updated By: BRUNO PENG; Reviewed Date: 11/18/2011 11:19 CDT Source: [facility] [employer] Document Id: [id number] documented in this encounter Plan of Treatment Upcoming Encounters Date Type Specialty Care Team Description 04/22/2022 Appointment Laboratory Medicine Meryl Julio M.D. [address] [place] [address] (Wo rk) 04/29/2022 Office Visit Endocrinology Meryl Julio M .D. [address] [place] [address] (Wo rk) documented as of this encounter Procedures Procedure Name Priority Date/Time Associated Comments Diagnosis CHLAMYDIA TRACHOMATIS Routine 11/18/2011 11:33 Re sults for this AMPLIFIED RNA AM CDT procedure are in the results section. TEST, U Routine 11/18/2011 11:30 Result s for this AM CDT procedure are i n the results section. documented in this encounter Results Chlamydia Trachomatis Amplified RNA (11/18/2011 11:33 AM CDT) Component Value Ref Test Analysis Performed At [facility] Range Method Time Signature HXChlamydia by POWERCHART Nucleic Acid Amplification HXFinal Negative for POWER[employer]ART Chlamydia trachomitis by DNA amplification. HXFinal Reference: POWERCHART Negative Specimen (Source) Anatomical Collection Method Collection Time Re ceived Time Location / / Volume Laterality Urine 11/18/2011 11:33 AM CDT Chris Aguilera D.O. LAB MICROBIOLOGY - GENERAL O RDERABLES Performing Organization Address City/[facility]/ZIP Code Phon e Number POWERCHART Test, Qualitative, Urine (11/18/2011 11:30 AM CDT) [facility] gist Method Time Signature HXBeta-hCG Negative Negative POWERCHART Qualitative Urine Comment: Results for this accession were completed 11/18/2011 1138 by FLACO. Specimen (Source) Anatomical Collection Method Collection Time Re ceived Time Location / / Volume Laterality Urine 11/18/2011 11:30 AM CDT Chris Aguilera D.O. LAB URINE ORDERABLES Performing Organization Address [facility] Code Phon e Number POWERCHART documented in this encounter Visit Diagnoses Not on filedocumented in this encounter
--- OUTSIDE RECORDS SUMMARY | 2022-03-06 07:14 | XMS_ITS | Encounter Summary ---
:1995 Author Organization [facility] Address [address] [place] [address] Care Team Providers Name Role Phone Unavailable Primary Care Provider Unavailable Encounter Details Date Type Department Care Team Description 06/14/2012 Hospital Encounter HX [facility] Cam Durand M.D. [address] [place] [phone] (Wo rk) Social History Tobacco Use Types [...] How often do you attend scientologist or protestant More than 4 time s per year [...] at Date Recorded Female 06/21/2021 12:52 PM CAR PORTER documented as of this encounter Last Filed Vital Signs Vital Sign Reading Time Taken Comments Blood Pressure 102/72 06/14/2012 9:38 AM CAR PORTER Pulse 123 06/14/2012 9:38 AM CAR PORTER Temperature - - Respiratory Rate 20 06/14/2012 9:38 AM CAR PORTER Oxygen Saturation - - Inhaled Oxygen Concentration - - Weight 68.7 kg (151 lb 7.3 oz) 06/14/2012 9:38 AM CAR PORTER Height - - Body Mass Index - - documented in this encounter Progress Notes Cam Rawls M.D. - 06/14/2012 9:33 AM CST CLNOT DATE: 06/14/2012 CHIEF COMPLAINT/REASON FOR VISIT Cough and congestion. HISTORY OF PRESENT ILLNESS Flaquito is an 16-year-old female who presents to the clinic today complaining of cough and congestion, approximately three days. She states that the cough is nonproductive, and she has some congestionwith runny nose. She also complains of fever where the temperature was at 102.1 degrees Fahrenheit, with some chills. She states that her throat is bothering her due to the persistent coughing. She also complains of bilateral ear fullness sensation. She denies shortness of breath or wheezing. No rash or neck stiffness reported. Initially, she complained of headache, which she attributes to the persistent coughing, which has resolved. She also has some body aches. She denies any changes with her bowel movement or urination. Appetite is regular, she is able to keep everything down. No nausea or vomiting. Currently, she has been taking Robitussin with Tylenol with little benefit. 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 Currently one of the residents has influenza, and the whole residents have been treated with antiviral medication. VITAL SIGNS Temperature is 36.6, heart rate is 123, respiration 20, blood pressure is 102/72, pulse oximetry is 98% on room air. PHYSICAL EXAMINATION GENERAL: Alert, oriented x3. Not in acute distress. HEENT: Ears, tympanic membranes intact bilaterally. No erythema, no drainage. Positive for effusion bilaterally. Nose, positive for swelling of the turbinates with clear drainage. Pharynx, positive forhyperemia, no exudates. Positive for postnasal drips. NECK: Supple. No cervical lymphadenopathy bilaterally. CARDIOVASCULAR: Regular rate and rhythm. No murmur or gallops. LUNGS: Clear breath sounds bilaterally. No crackles or expiratory wheezes. ABDOMEN: Soft, nontender. No hepatosplenomegaly. Bowel sounds in all four quadrants. IMPRESSION/REPORT/PLAN Influenza like illness. Discussed with Flaquito, due to her recent exposure at penitentiary with influenza, I elected to treat her with Tamiflu 75 mg twice daily for five days. For the cough, I prescribed her codeine with guaifenesin cough syrup. I advised her not to drive while taking this medication due to drowsiness. She is advised to rest, drink plenty of fluids to prevent dehydration and wash her hands regularly. She was given work excuse to rest at home for at least 48 hours while taking the medication. She is advised to monitor the symptoms, if it is worsening, she needs to come back for re-evaluation. She is in understanding and agreement. JS/pssd Doc#: [id number] cc: Electronically Signed By: CAM RAWLS MD On: 06/16/2012 01:11 PM Modified by and Electronically Signed by: CAM RAWLS MD On: 06/16/2012 01:11 PM Source: [facility] ISJDICTAPHONESYS Document Id: [id number] PORTER documented in this encounter Miscellaneous Notes Miscellaneous - Cam Rawls M.D. - 06/14/2012 9:55 AM CST School or Work Excuse School or Work Excuse Entered On: 06/14/2012 9:56 CAR PORTER Performed On: 06/14/2012 9:55 CAR PORTER by CAM RAWLS MD School or Work Excuse Date Patient Seen : 06/14/2012 CAR PORTER Date of Return to School/Work Without Restrictions : 06/16/2012 CAR PORTER Comment : Please excuse Ms. Flaquito Turner from work on 06/14/12 - 06/15/12 due to her medical condition. Thank you. CAM RAWLS MD - 06/14/2012 9:55 CAR PORTER Source: [facility] POWERCHART Document Id: [id number] PORTER Miscellaneous - Cam Rawls M.D. - 06/14/2012 9:54 AM CST Ambulatory Patient Summary [address] [place] [address] Visit Information Name: FLAQUITO TURNER [facility] Number: [id number] Current Date: 06/14/2012 09:54:30 Physicians Attending Provider: CAM RAWLS MD Primary Care Provider: CHRIS TOBIAS DO Your Medications Here is a list of your medications. It is important to take your medications as directed. Use a pillbox or chart to help remind you to take your medications. Please let your doctor or nurse know if you have problems taking your medications. Medication/Strength Dose Route Frequency Indications/Special Instructions/Comments codeine-guaifenesin (codeine-guaifenesin 10 mg-300 mg/5 mL oral liquid) 5 mL Oral every 6 hours as needed for cough oseltamivir (oseltamivir 75 mg oral capsule) 75 mg Oral two times a day for 5 Days medroxyPROGESTERone (Depo-Provera Contraceptive 150 mg/ml intramuscular suspension) [...] No Appointments found Your Goals/Additional instructions: Source: [facility] [email or web address] Document Id: [id number] PORTER Miscellaneous - Cam Rawls M.D. - 06/14/2012 9:54 AM CST Ambulatory Depart Summary [address] [address] Visit Information Name: FLAQUITO TURNER [facility] Number: [id number] Visit Date: 06/14/2012 09:54:29 Attending Provider: CAM RAWLS MD Primary Care Provider: CHRIS TOBIAS DO FLAQUITO TURNER has been given the following list of medications: Your Medications It is important to take your medications as directed. Use a pill box or chart to help remind you to take your medications. Please let your doctor or nurse know if you have problems taking your medications. Medication/Strength Dose Route Frequency Indications/Special Instructions/Comments codeine-guaifenesin (codeine-guaifenesin 10 mg-300 mg/5 mL oral liquid) 5 mL Oral every 6 hours as needed for cough oseltamivir (oseltamivir 75 mg oral capsule) 75 mg Oral two times a day for 5 Days medroxyPROGESTERone (Depo-Provera Contraceptive 150 mg/ml intramuscular suspension) 150 mg Intramuscular every 90 days dysmenorrhea Attention: If you have any medications at home that are not on this list, DO NOT take them until youcontact your provider for clarification. Additional Information: Source: [facility] Personal Document Id: [id number] PORTER Miscellaneous - Payton, Historical Provider Ser - 06/14/2012 9:38 AM CAR PORTER Adult J2Ee Engineer Intake/History Adult J2Ee Engineer Intake/History Entered On: 06/14/2012 9:41 CAR PORTER Performed On: 06/14/2012 9:38 CAR PORTER by CRISTIANO WINTERS LPN Intake Chief Complaint : cough, cold fever x 2 days, body aches Temperature Core : 36.6C(Converted to: 97.9DegF) Peripheral Pulse Rate : 123/min (HI) Respiratory Rate : 20/min Systolic Blood Pressure : 102mmHg Diastolic Blood Pressure : 72mmHg NIBP Mean : 82mmHg SpO2 : 98% Actual Weight : 68.7kg(Converted to: 151lb 7oz) Weight Source : Standing scale Dosing Weight Clinic : 68.70kg VIANEYCRISTIANO LPN - 06/14/2012 9:38 CAR PORTER General Info Information Given By : Patient VIANEY CRISTIANO Nicholson LPN - 06/14/2012 9:38 CAR PORTER Subjective Pain Symptoms : Yes CRISTIANO WINTERS LPN - 06/14/2012 9:38 CAR PORTER Pain Pain Assessment Grid Pain 1 Location : Chest Laterality : Bilateral Intensity : 6 CRISTIANO WINTERS LPN - 06/14/2012 9:38 CAR PORTER Dependent Habits Tobacco Use/Currently Using : No Smoking Status : Never smoker CRISTIANO WINTERS LPN 06/14/2012 9:38 CAR PORTER Caffeine Use Grid Caffeine Use : Current Type : Soft drinks Frequency : Daily Amount : 1 CRISTIANO WINTERS LPN - 06/14/2012 9:38 CAR PORTER Recreational Drug Use Grid Drug Use : None CRISTIANO WINTERS LPN 06/14/2012 9:38 CAR PORTER Allergy Allergies (Active) NKA Estimated Onset Date: Unspecified ; Created By: BRUNO PENG; Reaction Status: Active ; Category: Drug ; Substance: NKA ; Type: Allergy ; Updated By: BRUNO PENG; Reviewed Date: 06/14/2012 9:38 CAR PORTER Source: [facility] POWERCHART Document Id: [id number] documented in this encounter Plan of Treatment Upcoming Encounters Date Type Specialty Care Team Description 04/22/2022 Appointment Laboratory Medicine Meryl Julio M.D. [address] [place] [address] (Wo rk) 04/29/2022 Office Visit Endocrinology Meryl Julio M .D. [address] [place], [place] [address] (Wo rk) documented as of this encounter Visit Diagnoses Not on filedocumented in this encounter
--- OUTSIDE RECORDS SUMMARY | 2022-03-06 07:14 | XMS_ITS | Encounter Summary ---
:[address] [facility] Address [address] [place] [address] Care Team Providers Name Role Phone Unavailable Primary Care Provider Unavailable Encounter Details Date Type Department Care Team Description 06/06/2011 Hospital Encounter [facility]X [facility] Aguilera, in [address] [place] [address] (Wo rk) Social History Tobacco Use [...] How often do you attend denominational or temple More than 4 time s [...] at Date Recorded Female 06/21/2021 12:52 PM LIVING ADVISOR documented as of this encounter Last Filed Vital Signs Vital Sign Reading Time Taken Comments Blood Pressure 116/70 06/06/2011 11:06 AM LIVING ADVISOR Pulse 80 06/06/2011 11:06 AM LIVING ADVISOR Temperature - - Respiratory Rate 20 06/06/2011 11:06 AM LIVING ADVISOR Oxygen Saturation - - Inhaled Oxygen Concentration - - Weight 75.8 kg (167 lb 1.7 oz) 06/06/2011 11:06 AM LIVING ADVISOR Height - - Body Mass Index - - documented in this encounter Progress Notes Chris Aguilera, DSarah. - 06/06/2011 10:53 AM CST [facility] 06/06/2011 REASON FOR VISIT Flank pain. HISTORY OF PRESENT ILLNESS Felecia is a 15-year-old female with a history of chronic abdominal pain who presents to clinic today for pain in her upper back and flank. She states that she also has some lower abdominal pain. She has noticed that her urine has been more concentrated and malodorous. She has had no fevers, chills, nausea or vomiting. She has had no recent colds and denies any known hematuria. She has no previous history of nephrolithiasis, and a remote history of bladder infections. She does have chronic abdominal pain, which is managed through [facility]. There has been no determined etiology despitea previous cholecystectomy and appendectomy. They have talked to her about beginning an antidepressant for control of her abdominal pain, but she adamantly declined this. Her last menstrual period was earlier this week and normal for her. She has no new sexual partners. She has no history of STDs, PIDor vaginal discharge. MEDICATIONS Include gabapentin 300 mg twice daily. ALLERGIES No known drug allergies. EXAMINATION VITAL SIGNS: Temp 37.3, pulse 80, respirations 20, blood pressure 116/70. Weight is 75.8 kg. GENERAL: This is a well-appearing 15-year-old in no obvious distress. She can get up onto the exam table without difficulty. HEART: Regular rate and rhythm without murmurs, rubs, gallops. LUNGS: Clear to auscultation bilaterally without wheezes, rhonchi or rales. She flinches significantly upon palpation of her costovertebral angles. ABDOMEN: Soft, with distractible tenderness throughout. There is no rebound noted. There is no hepatomegaly. DIAGNOSTIC DATA Urinalysis is normal. Specific gravity 1.030. IMPRESSION/REPORT/PLAN Flank pain/chronic abdominal pain. PLAN I had a long discussion with Felecia today regarding her ongoing abdominal pain. We discussed the role mood plays in regards to abdominal pain, and also the sympathetic reflexes from the abdominal organs to the musculoskeletal system and low back. Strongly recommended that she consider improving her nutrition and hydration and beginning daily exercise, such as yoga. Would recommend stress reduction and medication practice, as well as a strong consideration of use of an antidepressant. We discussed this at length. It was at this time that she admitted tat [place] physicians had recommended this as well. She has basically drawn a line in the sand and states that she simply will not do those things. Her mom was present for the discussion and we discussed the fact that she is basically declining the medical advice offered to her. I question why this is the case, and she reported one of her friends having an adverse affects after taking an antidepressant and states simply, I will not do it. Sheis agreeable to increasing her hydration and consideration of yoga. She does have a followup visit with her GI doctor, as well as an BRISTLE MACHINE OPERATOR doctor for evaluation of possible endometriosis. VISIT BASED ON TIME Twenty-five of 30 minutes was spent in direct [id number] counseling and coordination of care. MIKE/psds Doc#: [id number] cc: Electronically Signed By: CHRIS AGUILERA DO On: 06/15/2011 05:49 PM Source: [facility] ISJDICTAPHONESYS Document Id: [id number] NG ADVISOR documented in this encounter Miscellaneous Notes Miscellaneous - Conversion, Historical Provider Ser - 08/05/2012 9:[address] Aguilera - call back From: MONSERRAT SCOTT To: LYNN Berumen Nurse; Sent: 08/05/2012 09:11:59 CDT Subject: Dr. Aguilera - call back If you need a prescription refill please call your pharmacy. Please allow 3 business days for processing. Call Center Template: ?? May we leave a message for you on this phone? [phone] ?? What can I help you with today? Wondering when she is able to get her next depo? She came in this morning and the nurse told her sheis not able to get the shot until Thursday and she is wondering why she can't have it today? ?? If Medication Refill: o What is the medication? o What pharmacy do you use? o Have you contacted your pharmacy regarding this request? I will send this information to the appropriate staff member who will look into your concern. Someone will call you back within 4 business hours.. Thank you for calling [facility]. Source: [facility] POWERCHART Document Id: [id number] Miscellaneous - China Munoz, C.M.A. - 06/06/2011 11:06 AM CST Adult Sales Executive Intake/History Adult Sales Executive Intake/History Entered On: 06/06/2011 11:12 LIVING ADVISOR Performed On: 06/06/2011 11:06 LIVING ADVISOR by CHINA MUNOZ Intake Chief Complaint : kidney pain and upper back pain, low abd pain, voiding small amounts, cloudy and has an odor Temperature Core : 37.3C(Converted to: 99.1DegF) Peripheral Pulse Rate : 80/min Respiratory Rate : 20/min Systolic Blood Pressure : 116mmHg Diastolic Blood Pressure : 70mmHg NIBP Mean : 85mmHg BP Location : Right upper extremity Blood Pressure Cuff Size : Regular Actual Weight : 75.8kg(Converted to: 167lb 2oz) Dosing Weight Clinic : 75.80kg CHINA MUNOZ [place] 06/06/2011 11:06 LIVING ADVISOR General Info Information Given By : Patient, Mother CHINA MUNOZ 06/06/2011 11:06 LIVING ADVISOR Subjective Pain Symptoms : Yes CHINA MUNOZ [place] 06/06/2011 11:06 LIVING ADVISOR Pain Pain Assessment Grid Pain 1 Pain 2 Pain 3 Location : Upper back Lower back Abdomen Laterality : Bilateral Left Bilateral Intensity : 7 7 9 KATHI MUNOZBABS [place] 06/06/2011 11:06 LIVING ADVISOR KATHI MUNOZBABS [place] 06/06/2011 11:06 LIVING ADVISOR ROBERTKATHI MCGRAWBABS [place] 06/06/2011 11:06 LIVING ADVISOR Dependent Habits Tobacco Use/Currently Using : No Smoking Status : Never smoker Alcohol Use : No MERKATHIBABS [place] 06/06/2011 11:06 LIVING ADVISOR Caffeine Use Grid Caffeine Use : Current Type : Soft drinks Frequency : Daily Amount : 1 MERKATHIBABS [place] 06/06/2011 11:06 LIVING ADVISOR Recreational Drug Use Grid Drug Use : None ROBERTKATHI MCGRAWBABS [place] 06/06/2011 11:06 LIVING ADVISOR Allergy Allergies (Active) NKA Estimated Onset Date: Unspecified ; Created By: BRUNO PENG; Reaction Status: Active ; Category: Drug ; Substance: NKA ; Type: Allergy ; Updated By: BRUNO PENG; Reviewed Date: 06/06/2011 11:05 LIVING ADVISOR Source: [facility] POWERCHART Document Id: [id number] LIVING ADVISOR!44 NG ADVISOR documented in this encounter Plan of Treatment Upcoming Encounters Date Type Specialty Care Team Description 04/22/2022 Appointment Laboratory Medicine Meryl Julio M.D. [address] [place] [address] (Hector martin) 04/29/2022 Office Visit Endocrinology Meryl Julio M .D. [address] [place] [address] (Hector martin) documented as of this encounter Procedures Procedure Name Priority Date/Time Associated Comments Diagnosis URINALYSIS, ROUTINE Routine 06/06/2011 11:18 AM R esults for this LIVING ADVISOR procedure are i n the results section. URINE MICROSCOPIC Routine 06/06/2011 11:18 AM Res ults for this LIVING ADVISOR procedure are i n the results section. documented in this encounter Results (ABNORMAL) Urine Microscopic (06/06/2011 11:18 AM LIVING ADVISOR) Patholo gist Method Time Signature HXUr WBC 0-3 0 - 5 HPF POWERCHART Red Blood Cell Negative Negative POWERCHART Clump, Urine HXUr Epithelial 2+ (A) Negative POWERCHART HXUr Bacteria 1+ (A) Negative POWERCHART Crystals None Seen POWERCHART HX Ur Casts None Seen 0 - 2 POWERCHART HX MUCOUS 1+ (A) Negative POWERCHART THREADS Specimen Anatomical Collection Method Collection Time Receive d Time (Source) Location / / Volume Laterality Urine 06/06/2011 11:18 06/06/2011 AM LIVING ADVISOR 11:18 AM LIVING ADVISOR Chris Aguilera D.O. LAB URINE ORDERABLES Performing Organization Address City/State/[facility] [[email or web address]] Code Phon e Number POWERCHART Urinalysis, Routine (06/06/2011 11:18 AM LIVING ADVISOR) P athologist Signature Source Clean Void POWERCHART Urine HXUr Color Yellow Yellow POWERCHART Comment: Results for this accession were completed 06-06-2011 AT 11:35 A.M. by sw Appearance Clear Clear POWERCHART Specific [place], POCT, U >1.030 1.000 - 1.030 POWERCHART pH, POCT, Urine 5.5 5.0 - 9.0 POWERCHART Leukocyte Esterase Negative Negative POWERCHART HXNITRITE Negative Negative POWERCHART Protein, Ur, Dip Negative Negative POWERCHART Glucose Negative Negative POWERCHART Ketones, QL(U) Negative Negative POWERCHART Urobilinogen 0.2 0.1 - 2.0 POWERCHART HXBILIRUBIN Negative Negative POWERCHART HXBLOOD Negative Negative POWERCHART Specimen (Source) Anatomical Collection Method Collection Time Re ceived Time Location / / Volume Laterality Urine 06/06/2011 11:18 AM LIVING ADVISOR Chris [facility] Ale D.O. LAB URINE ORDERABLES Performing Organization Address City/State/ZIP Code Phon e Number POWERCHART documented in this encounter Visit Diagnoses Not on filedocumented in this encounter
--- OUTSIDE RECORDS SUMMARY | 2022-03-06 07:14 | XMS_ITS | Encounter Summary ---
:1995 Author Organization [facility] Address [address] [place] [address] Care Team Providers Name Role Phone Unavailable Primary Care Provider Unavailable Encounter Details Date Type Department Care Team Description 06/18/2011 Hospital Encounter HX [facility] in [address] [place] [phone] (Wo rk) Social History [...] How often do you attend mosque or jain More than 4 time s [...] at Date Recorded Female 06/21/2021 12:52 PM NUISANCE WILDLIFE CONTROL OPERATOR documented as of this encounter Plan of Treatment Upcoming Encounters Date Type Specialty Care Team Description 04/22/2022 Appointment Laboratory Medicine Meryl Julio M.D. [address] [place], [place] [address] (Wo rk) 04/29/2022 Office Visit Endocrinology Meryl Julio M .D. [address] [place], [place] [address] (Hector rk) documented as of this encounter Procedures Procedure Name Priority Date/Time Associated Diagnosis Comme nts HEPATIC FUNCTION Routine 06/18/2011 9:00 AM Resul ts for this PANEL, S NUISANCE WILDLIFE CONTROL OPERATOR procedure are i n the results section. GAMMA-GLUTAMYLTRANS Routine 06/18/2011 9:00 AM Re sults for this FERASE (GGT), S/P NUISANCE WILDLIFE CONTROL OPERATOR procedure are in the results section. BASIC METABOLIC Routine 06/18/2011 9:00 AM Result s for this PANEL, S/P NUISANCE WILDLIFE CONTROL OPERATOR procedure are i n the results section. documented in this encounter Results BMP (Basic Metabolic Panel) (06/18/2011 9:00 AM NUISANCE WILDLIFE CONTROL OPERATOR) athologist Signature Glucose, 91 70 - 99 POWERCHART Fasting, S MGDL Comment: Results for this accession were completed 06/18/2011 at 10:02 a.m. by [facility] Creatinine 0.6 0.3 - 1.4 MGDL POWERCHART BUN (Blood Urea Nitrogen), S 13 6 - 18 MGDL POWERCHART Calcium, Total, S 9.3 8.5 - 10.5 MGDL POWERC KELLY Sodium, S 138 135 - 146 MMOLL POWERCHART Potassium, S 4.3 3.5 - 5.3 MMOLL POWERCHART Chloride, S 104 94 - 113 MMOLL POWERCHART CO2 Total 27 24 - 32 MMOLL POWERCHART Anion Gap 11 7 - 16 MMOLL POWERCHART HXeGFR (MDRD) Not performed. >=60 POWERCHART eGFR Black/ Not performed. >=60 POWERCHART Specimen (Source) Anatomical Collection Method Collection Time Re ceived Time Location / / Volume Laterality Blood 06/18/2011 9:00 AM NUISANCE WILDLIFE CONTROL OPERATOR Kelly Aguilera D.O. LAB BLOOD ADD-ON Performing Organization Address City/[facility] Code Phon e Number POWERCHART GGT (Gamma-Glutamyltransferase) (06/18/2011 9:00 AM NUISANCE WILDLIFE CONTROL OPERATOR) [employer] Method Time Signature Gamma 12 0 - 68 POWERCHART Glutamyltransferase UNITL (GGT), S Specimen (Source) Anatomical Collection Method Collection Time Re ceived Time Location / / Volume Laterality Blood 06/18/2011 9:00 AM NUISANCE WILDLIFE CONTROL OPERATOR Kelly Ragland.OSebastian LAB BLOOD ADD-ON Performing Organization Address [facility] Phon e Number POWERCHART (ABNORMAL) Hepatic Function Panel (06/18/2011 9:00 AM NUISANCE WILDLIFE CONTROL OPERATOR) [employer] Method Time Signature Alkaline 147 (H) 34 - 114 POWERCHART Phosphatase, S UL Aspartate 17 4 - 33 UL POWERCHART Aminotransferase (AST), S Alanine 17 2 - 45 UL POWERCHART Amniotransferase, LD Bilirubin, Total, S 0.4 0.1 - 1.2 POWERCHART MGDL Total Protein, S 6.8 6.5 - 8.3 POWERCHART GDL Albumin, S 4.6 3.5 - 5.1 POWERCHART GMDL Bilirubin, Direct, S 0.1 0.0 - 0.3 POWERCHAR T MGDL Specimen (Source) Anatomical Collection Method Collection Time Re ceived Time Location / / Volume Laterality Blood 06/18/2011 9:00 AM NUISANCE WILDLIFE CONTROL OPERATOR Kelly SanchezOSebastian LAB BLOOD ADD-ON Performing Organization Address City/[facility] Code Phon e Number POWERCHART documented in this encounter Visit Diagnoses Not on filedocumented in this encounter
--- OUTSIDE RECORDS SUMMARY | 2022-03-06 07:14 | XMS_ITS | Encounter Summary ---
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 documented as of this encounter Last Filed Vital Signs Vital Sign Reading Time Taken Comments Blood Pressure 100/72 08/05/2012 10:53 AM CDT Pulse 88 08/05/2012 10:53 AM CDT Temperature - - Respiratory Rate 16 08/05/2012 10:53 AM CDT Oxygen Saturation - - Inhaled Oxygen Concentration - - Weight 70.2 kg (154 lb 12.2 oz) 08/05/2012 10:53 AM CDT Height 169 cm (5' 6.54) 08/05/2012 10:53 AM CDT Body Mass Index 24.58 08/05/2012 10:53 AM CDT Body Mass Index Percentile 77.80 % 08/05/2012 10:53 AM CDT Growth Chart: [facility] (Girls, 2-20 Years) documented in this encounter H&P Notes Marcus Simmons D.O. - 08/05/2012 10:44 AM CDT [facility] DATE: 08/05/2012 CHIEF COMPLAINT/REASON FOR VISIT Annual exam. HISTORY OF PRESENT ILLNESS This is a pleasant 16-year-old female who comes in today for an annual exam as well as to get her Depo renewed. Overall she has been doing well. She denies any specific questions or concerns. She is currently up at [place] getting her generals done at the [facility] there. She lives in her own place with two roommates. She is planning on transfer to [employer] in the near future to major in nursing and hopes to get her RN degree. She also would like a refill of her Depo-Provera, she has been on that for the past year, feels like it is really working well for her ongoing menometrorrhagia when shetakes it. She says she normally gets her period but just for two days and it is a very light spotting. She says she always knows when she is due for the next Depo because she gets a much heavier period, bleeds for about the last week before she is due for her next dose. She has not been sexually active. She has no history of STDs or PID. She is a G0, P0. PAST MEDICAL/SURGICAL HISTORY MEDICAL: 1. Dysmenorrhea. 2. History of sphincter of Oddi dysfunction. SURGICAL: 1. Cholecystectomy. 2. Appendectomy. 3. Sphincter of Oddi surgery. SOCIAL HISTORY As per HPI. She denies any tobacco use. No alcohol use. Daily caffeine use in the form of soft drinks. 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 Does not exercise on a regular basis. Eats a very healthy diet. Always wears her seatbelt and brushes her teeth. FAMILY HISTORY Noncontributory. CURRENT MEDICATIONS Include Depo-Provera. ALLERGIES No known drug allergies. VITAL SIGNS Pulse 88, respirations 16, blood pressure 100/172, height 169 cm, weight is 70.2 kg, body mass indexis 24. PHYSICAL EXAMINATION GENERAL: This is a well-appearing, 16-year-old female in no acute distress. HEENT: PERRL. EOMI. Fundi visualized and normal. Conjunctivae noninjected. No discharge. TMs pearly francisco BL. Nares patent without rhinorrhea. Mouth MMM. Posterior pharynx without lesions. No oral lesions. Good dentition. NECK: No cervical adenopathy. No thyromegaly. No mass. HEART: Regular rate and rhythm. No murmur. LUNGS: CTABL. ABDOMEN: Soft. Nontender. No masses. No hepatosplenomegaly. EXTREMITIES: Without swelling. Dorsalis pedis pulses +2/4 BL. MUSCULOSKELETAL: No joint tenderness or swelling. NEUROLOGIC: Cranial nerves intact. SKIN: No rashes or irregular lesions. No irregular nevi. PSYCH: Pleasant affect. No concerns. IMPRESSION/REPORT/PLAN 1. Routine physical exam. 2. Dysmenorrhea. PLAN: Routine physical exam as described above. The patient is given age- appropriate anticipatory guidance. She will be due for gonorrhea, chlamydia screen this summer. Pap smear, started age 19. I renewed her Depo for the next year. Again warned of the risk of bone loss that is reversible when stopping Depo. The patient feels comfortable with our plan and verbalizes agreement. KET/psaw Doc#: [id number] cc: Electronically Signed By: MARCUS SIMMONS DO On: 08/09/2012 03:30 PM Source: [facility] ISJDICTAPHONESYS Document Id: [id number] documented in this encounter Procedure Notes Natacha Simons L.PSebastianNSebastian - 08/05/2012 11:24 AM CDT Depo-Provera Administration Depo-Provera Administration Entered On: 08/05/2012 11:25 CDT Performed On: 08/05/2012 11:24 CDT by NATACHA SIMONS LPN Depo-Provera Administration Annual Exam in the Past 12 Months : Yes Last Depo-Provera Given : 05/24/2012 SKIAGRAPHER Return appointment : 10/21/2012 CDT Needs test : No Depo-Provera Administration Comments : In for renewal today with physican NATACHA SIMONS LPN - 08/05/2012 11:24 CDT Source: [facility] POWERCHART Document Id: [id number] documented in this encounter Miscellaneous Notes Miscellaneous - Marcus Simmons D.O. - 08/05/2012 11:13 AM CDT Ambulatory Depart Summary [place] [place] [address] Visit Information Name: FLAQUITO TURNER [facility] Number: [id number] Visit Date: 08/05/2012 11:13:08 Attending Provider: MARCUS SIMMONS DO Primary Care [...] your provider for clarification. Additional Information: Source: [facility] POWERCHART Document Id: [id number] Miscellaneous - Marcus Simmons D.O. - 08/05/2012 11:13 AM CDT Ambulatory Patient Summary [place] [address] Visit Information Name: FLAQUITO TURNER MARTIN [facility] Number: [id number] Current Date: 08/05/2012 11:13:09 Physicians Attending Provider: MARCUS SIMMONS DO Primary [...] Upcoming Appointments Date Time Location Reason Provider 08/27/2012 09:00 [place] Grier pre op physical/surgery september 02/knee surgery - [place] Leonardo LOPEZ, Jerry Your Goals/Additional instructions: Source: [facility] POWERCHART Document Id: [id number] Miscellaneous - Natacha SimonsRita - 08/05/2012 10:53 AM CDT 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/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 Entered On: 08/05/2012 10:55 CDT Performed On: 08/05/2012 10:53 CDT by NATACHA SIMONS LPN Intake Chief Complaint : needs depo renewed Peripheral Pulse Rate : 88/min Respiratory Rate : 16/min Systolic Blood Pressure : 100mmHg Diastolic Blood Pressure : 72mmHg NIBP Mean : 81mmHg Height : 169cm(Converted to: 5ft 7inch(es), 66.54inch(es)) Actual Weight : 70.2kg(Converted to: 154lb 12oz) Dosing Weight Clinic : 70.20kg Clinic BSA : 1.82 Body Mass Index : 24.58kg/m2 NATACHA SIMONS LPN - 08/05/2012 10:53 CDT General Info Information Given By : Patient Languages : Kazakh NATACHA SIMONS LPN - 08/05/2012 10:53 CDT Subjective Pain Symptoms : Yes NATACHA SIMONS LPN - 08/05/2012 10:53 CDT Pain Pain Assessment Grid Pain 1 Location : Abdomen (Comment: cramps, past week bleeding [NATACHA SIMONS LPN 08/05/2012 10:53 CDT]) NATACHA SIMONS LPN 08/05/2012 10:53 CDT Dependent Habits Tobacco Use/Currently Using : No Smoking Status : Never smoker NATACHA SIMONS LPN 08/05/2012 10:53 CDT Tobacco Use Grid Last Use : never NATACHA SIMONS LPN 08/05/2012 10:53 CDT Alcohol Use : No NATACHA SIMONS [employer] 08/05/2012 10:53 CDT Caffeine Use Grid Caffeine Use : Current Type : Soft drinks Frequency : Daily Amount : 1 NATACHA SIMONS LPN 08/05/2012 10:53 CDT Recreational Drug Use Grid Drug Use : None NATACHA SIMONS LPN 08/05/2012 10:53 CDT Allergy Allergies (Active) NKA Estimated Onset Date: Unspecified ; Created By: BRUNO PENG; Reaction Status: Active ; Category: Drug ; Substance: NKA ; Type: Allergy ; Updated By: BRUNO PENG; Reviewed Date: 08/05/2012 10:51 CDT Source: [facility] POWERCHART Document Id: [id number] Miscellaneous - Natacha Simons L.P.NSebastian - 08/05/2012 10:52 AM CDT Health Assessment Health Assessment Entered On: 08/05/2012 10:53 CDT Performed On: 08/05/2012 10:52 CDT by KRISTYN NATACHA Patrick TRACEY Health Assessment Complete Health Assessment Complete or Modified : Annual Health Assessment Annual Health Assessment Completed : Yes NATACHA SIMONS [employer]ELOP[employer] - 08/05/2012 10:52 CDT Nutrition Nutrition Risk Factors by History Adult : None NATACHA SIMONS [facility] 08/05/2012 10:52 CDT Functional Current Daily Living Assistance : None NATACHA SIMONS [facility] 08/05/2012 10:52 CDT Dependent Habits Tobacco Use/Currently Using : No Smoking Status : Never smoker NATACHA SIMONS [facility] 08/05/2012 10:52 CDT Tobacco Use Grid Last Use : never NATACHA SIMONS [facility] 08/05/2012 10:52 CDT Alcohol Use : No NATACHA SIMONS [facility] 08/05/2012 10:52 CDT Caffeine Use Grid Caffeine Use : Current Type : Soft drinks Frequency : Daily Amount : 1 NATACHA SIMONS [facility] 08/05/2012 10:52 CDT Recreational Drug Use Grid Drug Use : None NATACHA SIMONS [facility] 08/05/2012 10:52 CDT Psychosocial Domestic Abuse Concerns : None NATACHA SIMONS [facility] 08/05/2012 10:52 CDT Advance Directive Advanced Directives : No Advance Directive Additional Information : No NATACHA SIMONS [facility] 08/05/2012 10:52 CDT Educ Needs Learning Style Preference Adult Grid Patient : None Family : None NATACHA SIMONS [facility] 08/05/2012 10:52 CDT Source: [facility] POWERCHART Document Id: [id number] documented in this encounter Plan of Treatment Upcoming Encounters Date Type Specialty Care Team Description 04/22/2022 Appointment Laboratory Medicine Meryl Julio M.D. [facility] [place], [place] [address] (Hector martin) 04/29/2022 Office Visit Endocrinology Meryl Julio M .D. [address] [place] [address] (Hector rk) documented as of this encounter Visit Diagnoses Not on filedocumented in this encounter
--- OUTSIDE RECORDS SUMMARY | 2022-03-06 07:14 | XMS_ITS | Encounter Summary ---
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 Please allow 3 business days for processing. Call Center Template: May we leave a message for you on this phone? YES What can I help you with today?When does Ramírez need another Depo shot? What pharmacy do you use? I will send this information to the appropriate staff member who will look into your concern. If thenurse needs to talk to you he or she will call you back within two hours. Thank you for calling [facility]. Source: [facility] POWERCHART Document Id: [id number] documented in this encounter Plan of Treatment Upcoming Encounters Date Type Specialty Care Team Description 04/22/2022 Appointment Laboratory Medicine Meryl Julio M.D. [address] [place] [address] (Wo rk) 04/29/2022 Office Visit Endocrinology Meryl Julio M .D. [address] [place] [phone] (Wo rk) documented as of this encounter Visit Diagnoses Not on filedocumented in this encounter
--- OUTSIDE RECORDS SUMMARY | 2022-03-06 07:14 | XMS_ITS | Encounter Summary ---
:1995 Author Organization [facility] Address [address] [place] [address] Care Team Providers Name Role Phone Unavailable Primary Care Provider Unavailable Encounter Details Date Type Department Care Team Description 06/27/2011 Hospital Encounter HX [facility] LENNOX Aguilera, in [address] [place] [address] (Wo rk) Social History Tobacco Use [...] How often do you attend pentecostalism or confucianist More than 4 time s [...] at Date Recorded Female 06/21/2021 12:52 PM CROSSBAR FRAME WIRER documented as of this encounter Last Filed Vital Signs Vital Sign Reading Time Taken Comments Blood Pressure 124/64 06/27/2011 4:30 PM CROSSBAR FRAME WIRER Pulse 112 06/27/2011 4:30 PM CROSSBAR FRAME WIRER Temperature - - Respiratory Rate 16 06/27/2011 4:30 PM CROSSBAR FRAME WIRER Oxygen Saturation - - Inhaled Oxygen Concentration - - Weight 75.8 kg (167 lb 1.7 oz) 06/27/2011 4:30 PM CROSSBAR FRAME WIRER Height - - Body Mass Index - - documented in this encounter Progress Notes Chris Aguilera, DSarah. - 06/27/2011 4:16 PM CST [facility] Family [facility] 06/27/2011 REASON FOR VISIT Discuss HEARING OFFICER evaluation. HISTORY OF PRESENT ILLNESS Flaquito is a very pleasant 15-year-old female with a history of chronic abdominal pain, who presents to the clinic today accompanied by her mom for evaluation. She was seen on June [address] Alvares, Pediatric and Adolescent Medicine at [facility]. She was diagnosed there with dysmenorrhea and possible underlying endometriosis. She discussed perhaps starting hormonal therapy. Ramírez would not remember to take a pill and is not interested in trying patches or the NuvaRing. Because of this, she would like to try the Depo-Provera injection. Ramírez states that she is getting ready to start her period within the next few days. She has been told that she should not start the Depo until after her period be gins. She did have a urine Chlamydia test, which was negative, in [place]. Ramírez states that she is having significant back and abdominal pain today. She has had intermittent elevation of liver enzymesand we have been giving her blood work on an every 2- to 3-week basis and sending this over to [place]. Because of the pain, she is requesting that this is repeated today. Her enzymes have been normal since January of 2011. She has had no followup with GI, but despite this, she does want her bloodchecked. She has completed her HPV vaccine. She has not been sexually active at this time. MEDICATIONS Include Neurontin nightly. ALLERGIES No known drug allergies. EXAMINATION VITAL SIGNS: Pulse is 100, respirations 16, blood pressure 124/64, weight is 75.8 kg. GENERAL: This is a well-appearing 15-year-old in no obvious distress. ABDOMEN: Soft. There is left lower quadrant abdominal pain and flank pain noted. IMPRESSION/REPORT/PLAN Abdominal pain secondary to dysmenorrhea and possible endometriosis. At this time, would recommend beginning naproxen 500 mg twice daily to get her through this next period. Will then order Depo-Provera injections every 3 months, with her first injection next Thursday after she has started her period. Will check a serum test today. At her and her mom's request, I did check a complete blood count, comprehensive metabolic panel, and GGT, and she will be notified of the results. If they are abnormal, will forward on to her kingsbury machine operator in [place]. They were in understanding and agreement with the plan. Ramírez already has completed her human papillomavirus vaccination series. Will plan a recheck in approximately 1 month. We did review the side-effects of the Depo-Provera injection. They are in understanding and agreement with the plan. MIKE/petersonf Doc#: [id number] cc: Electronically Signed By: CHRIS AGUILERA DO On: 07/02/2011 02:14 PM Source: [facility] ISJDICTAPHONESYS Document Id: [id number] SBAR FRAME WIRER documented in this encounter Miscellaneous Notes Miscellaneous - Conversion, Historical Provider Ser - 05/06/2012 3:46 PM CROSSBAR FRAME WIRER Ale-romeroo romero Document Contains Addenda Addendum by LILI MONDRAGON RN on 06 May 2012 16:03:20 CROSSBAR FRAME WIRER pt notified due 05/21-06/04 From: PHUONG MAURO To: LYNN Berumen Nurse; Sent: 05/06/2012 15:46:46 CROSSBAR FRAME WIRER Subject: Ale-depo shot If you need a prescription refill please call your pharmacy. Please allow 3 business days for processing. Call Center Template: May we leave a message for you on this phone? yes What can I help you with today?wondering when she is due for her next depo shot What pharmacy do you use? I will send this information to the appropriate staff member who will look into your concern. If thenurse needs to talk to you he or she will call you back within two hours. Thank you for calling [facility]. Source: [facility] POWERCHART Document Id: [id number] Rafael - Chris Aguilera D.O. - 06/30/2011 10:21 AM CST Results Notification Document Contains Addenda Addendum by WOLF DEL ANGEL on 02 July 2011 08:43:17 CROSSBAR FRAME WIRER letter to HIM From: CHRIS AGUILERA DO To: WOLF DEL ANGEL Sent: 06/30/2011 10:21:57 CROSSBAR FRAME WIRER ! Show up: 06/30/2011 16:21:57 [facility] Subject: Results Notification Actions: Notify patient of results Source: [facility] POWERCHART Document Id: [id number] Miscellkal - Chris Aguilera D.O. - 06/27/2011 4:57 PM CST Ambulatory Patient Summary Cristina Polk [address] [place] [id number] Visit Information Name: FLAQUITO CARDENAS Current Date: 06/27/2011 16:57:48 Primary Care Provider: CHRIS AGUILERA DO Your [...] times a day for abd pain from [place] Your Allergies & Intolerances Substance Reaction Symptoms [...] Upcoming Appointments Date Time Location Reason Provider 07/09/2011 08:30 [facility] Your Goals/Additional instructions: Source: [facility] POWERCHART Document Id: [id number] SBAR FRAME WIRER Miscellaneous - Chris Aguilera D.O. - 06/27/2011 4:57 PM CST Ambulatory Depart Summary Cristina Polk [address] [place] [id number] Visit Information Name: FLAQUITO CARDNEAS Current Date: 06/27/2011 16:57:47 Attending Provider: CHRIS AGUILERA DO Primary Care Provider: CHRIS AGUILERA DO FLAQUITO CARDENAS has been given the following [...] times a day for abd pain from [place] Additional Information: Yes - Current list of reconciled medications is provided and explained to the patient and/or family, guardian/caregiver. Source: [facility] POWERCHART Document Id: [id number] SBAR FRAME WIRER Miscellaneous - Laurel Orellana L.P.N. - 06/27/2011 4:30 PM CST Adult Motor Equipment Captain Intake/History Adult Motor Equipment Captain Intake/History Entered On: 06/27/2011 16:34 CROSSBAR FRAME WIRER Performed On: 06/27/2011 16:30 CROSSBAR FRAME WIRER by LAUREL ORELLANA Intake Chief Complaint : [facility] has endomet needs to be on depo provera needs-wants labs having pain Peripheral Pulse Rate : 112/min (HI) Respiratory Rate : 16/min Heart Rhythm : Regular Systolic Blood Pressure : 124mmHg Diastolic Blood Pressure : 64mmHg NIBP Mean : 84mmHg BP Location : Left upper extremity Blood Pressure Cuff Size : Regular Actual Weight : 75.8kg(Converted to: 167lb 2oz) Dosing Weight Clinic : 75.80kg LAUREL ORELLANA - 06/27/2011 16:30 CROSSBAR FRAME WIRER General Info Information Given By : Patient LAUREL ORELLANA - 06/27/2011 16:30 CROSSBAR FRAME WIRER Subjective Pain Symptoms : Yes LAUREL ORELLANA - 06/27/2011 16:30 CROSSBAR FRAME WIRER Pain Pain Assessment Grid Pain 1 Location : Lower back Laterality : Left Intensity : 9 LAUREL ORELLANA - 06/27/2011 16:30 CROSSBAR FRAME WIRER Dependent Habits Tobacco Use/Currently Using : No Smoking Status : Never smoker LAUREL ORELLANA 06/27/2011 16:30 CROSSBAR FRAME WIRER Caffeine Use Grid Caffeine Use : Current Type : Soft drinks Frequency : Daily Amount : 1 LAUREL ORELLANA 06/27/2011 16:30 CROSSBAR FRAME WIRER Recreational Drug Use Grid Drug Use : None LAUREL ORELLANA 06/27/2011 16:30 CROSSBAR FRAME WIRER Allergy Allergies (Active) NKA Estimated Onset Date: Unspecified ; Created By: BRUNO PENG; Reaction Status: Active ; Category: Drug ; Substance: NKA ; Type: Allergy ; Updated By: BRUNO PENG; Reviewed Date: 06/27/2011 16:27 CROSSBAR FRAME WIRER Source: [facility] Document Id: [id number] CROSSBAR FRAME WIRER!35 SBAR FRAME WIRER documented in this encounter Plan of Treatment Upcoming Encounters Date Type Specialty Care Team Description 04/22/2022 Appointment Laboratory Medicine Meryl Julio M.D. [address] [place] [address] (Hector martin) 04/29/2022 Office Visit Endocrinology Meryl Julio M .D. [address] [place] [address] (Hector martin) documented as of this encounter Procedures Procedure Name Priority Date/Time Associated Comments Diagnosis AUTOMATED Routine 06/27/2011 5:15 PM Results f or this DIFFERENTIAL, B CROSSBAR FRAME WIRER procedure ar e in the results section. CBC WITH DIFFERENTIAL, Routine 06/27/2011 5:15 PM Results for this B CROSSBAR FRAME WIRER procedure are i n the results section. TEST (HCG), Routine 06/27/2011 5:15 PM Results for this S CROSSBAR FRAME WIRER procedure are i n the results section. GAMMA-GLUTAMYLTRANSFER Routine 06/27/2011 5:15 PM Results for this ASE (GGT), S/P CROSSBAR FRAME WIRER procedure are in the results section. COMPREHENSIVE Routine 06/27/2011 5:15 PM Results for this METABOLIC PANEL, S/P CROSSBAR FRAME WIRER procedu re are in the results section. documented in this encounter Results (ABNORMAL) Automated Differential (06/27/2011 5:15 PM CROSSBAR FRAME WIRER) Patholo gist Method Time Signature Lymphocytes 20.0 (L) 25.0 - POWERCHART 50.0 Lymphocytes 2.0 0.9 - 2.9 POWERCHART X109L HX [place] % 4.0 2.0 - POWERCHART 10.0 Monocytes 0.3 0.1 - 1.0 POWERCHART KMM3 Immature 76.1 35.0 - POWERCHART Granulocytes % 81.0 HXGranulo Absolut 8.0 1.5 - 8.5 POWERCHART KMM3 Specimen Anatomical Collection Method Collection Time Receive d Time (Source) Location / / Volume Laterality Blood 06/27/2011 5:15 PM 2 5:15 CROSSBAR FRAME WIRER PM CROSSBAR FRAME WIRER Chris Aguilera D.O. LAB BLOOD ADD-ON Performing Organization Address City/State/ZIP Code Phon e Number POWERCHART (ABNORMAL) CBC with Differential (06/27/2011 5:15 PM CROSSBAR FRAME WIRER) athologist Signature Leukocytes 10.3 3.5 - 10.5 POWERCHART KMM3 Comment: Results for this accession were completed 06/27/2011 at 17:59 p.m. by ap Erythrocytes 4.82 3.90 - 5.03 MMM3 POWERCHART Hemoglobin 15.0 12.0 - 15.5 GDL POWERCHART Hematocrit 45.8 (H) 34.9 - 44.5 POWERCHART MCV 95.0 81.6 - 98.3 FL POWERCHART HX RDW 13.5 11.9 - 15.5 POWERCHART Platelet Count 268 150 - 450 KMM3 POWERCHART HXDifferential? Auto POWERCHART Specimen (Source) Anatomical Collection Method Collection Time Re ceived Time Location / / Volume Laterality Blood 06/27/2011 5:15 PM CROSSBAR FRAME WIRER Chris Aguilera D.O. LAB BLOOD ADD-ON Performing Organization Address City/State/ZIP Code Phon e Number POWERCHART hCG ( Test), [place], Augustus (06/27/2011 5:15 PM CROSSBAR FRAME WIRER) P athologist Signature HXBeta hCG Ql Negative Negative POWERCHART Specimen (Source) Anatomical Collection Method Collection Time Re ceived Time Location / / Volume Laterality Blood 06/27/2011 5:15 PM CROSSBAR FRAME WIRER ChrisGigaclear D.O. LAB BLOOD ADD-ON Performing Organization Address City/State/ZIP Code Phon e Number POWERCHART GGT (Gamma-Glutamyltransferase) (06/27/2011 5:15 PM CROSSBAR FRAME WIRER) [facility] gist Method Time Signature Gamma 16 0 - 68 POWERCHART Glutamyltransferase UNITL (GGT), S Specimen (Source) Anatomical Collection Method Collection Time Re ceived Time Location / / Volume Laterality Blood 06/27/2011 5:15 PM CROSSBAR FRAME WIRER Chris C Ale D.O. LAB BLOOD ADD-ON Performing Organization Address City/State/ZIP Code Phon e Number POWERCHART (ABNORMAL) CMP (Comprehensive Metabolic Panel) (06/27/2011 5:15 PM CROSSBAR FRAME WIRER) [facility] gist Method Time Signature Glucose 93 <=199 POWERCHART MGDL Creatinine 0.6 0.3 - 1.4 POWERCHART MGDL BUN (Blood Urea 15 6 - 18 POWERCHART Nitrogen), S MGDL Calcium, Total, S 9.7 8.5 - POWERCHART 10.5 MGDL Sodium, S 135 135 - 146 POWERCHART MMOLL Potassium, S 4.0 3.5 - 5.3 POWERCHART MMOLL Chloride, S 101 94 - 113 POWERCHART MMOLL CO2 Total 24 24 - 32 POWERCHART MMOLL Alkaline 143 (H) 34 - 114 POWERCHART Phosphatase, S UL Aspartate 13 4 - 33 UL POWERCHART Aminotransferase (AST), S Alanine 16 2 - 45 UL POWERCHART Amniotransferase, LD Bilirubin, Total, S 0.1 0.1 - 1.2 POWERCHART MGDL Total Protein, S 7.0 6.5 - 8.3 POWERCHART GDL Albumin, S 4.6 3.5 - 5.1 POWERCHART GMDL Anion Gap 14 7 - 16 POWERCHART MMOLL HXeGFR (MDRD) Not >=60 POWERCHART performed . eGFR Black/ Not >=60 POWERCHART Trinidadian performed . Specimen (Source) Anatomical Collection Method Collection Time Re ceived Time Location / / Volume Laterality Blood 06/27/2011 5:15 PM CROSSBAR FRAME WIRER Chris Aguilera D.O. LAB BLOOD ADD-ON Performing Organization Address City/State/ZIP Code Phon e Number POWERCHART documented in this encounter Visit Diagnoses Not on filedocumented in this encounter
--- OUTSIDE RECORDS SUMMARY | 2022-03-06 07:14 | XMS_ITS | Encounter Summary ---
:1995 Author Organization [facility] Address [address] [place] [address] Care Team Providers Name Role Phone Unavailable Primary Care Provider Unavailable Encounter Details Date Type Department Care Team Description 12/19/2011 Hospital Encounter HX [facility] Aguilera, in [address] [place] [address] (Wo rk) Social History Tobacco Use [...] How often do you attend confucianism or islam More than 4 time s [...] Date Recorded Female 06/21/2021 12:52 PM SENIOR REPORT DEVELOPER documented as of this encounter Procedure Notes Conversion, Historical Provider Ser - 12/19/2011 11:14 AM CDT Depo-Provera Administration Depo-Provera Administration Entered On: 12/19/2011 11:14 CDT Performed On: 12/19/2011 11:14 CDT by CRISTIANO WINTERS LPN Depo-Provera Administration Annual Exam in the Past 12 Months : Yes Last Depo-Provera Given : 09/19/2011 CDT Return appointment : 03/19/2012 CDT Needs test : No CRISTIANO WINTERS LPN - 12/19/2011 11:14 CDT Source: [facility] POWERCHART Document Id: [id number] documented in this encounter Plan of Treatment Upcoming Encounters Date Type Specialty Care Team Description 04/22/2022 Appointment Laboratory Medicine Meryl Julio M.D. [facility] [place], [place] [address] (Hector martin) 04/29/2022 Office Visit Endocrinology Meryl Julio M .D. [address] [place], [place] [address] (Hector martin) documented as of this encounter Visit Diagnoses Not on filedocumented in this encounter
--- OUTSIDE RECORDS SUMMARY | 2022-03-06 07:14 | XMS_ITS | Encounter Summary ---
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 [facility] [place], [place] [address] (Wo rk) 04/29/2022 Office Visit Endocrinology Meryl Julio M .D. [address] [place] [address] (Wo rk) documented as of this encounter Visit Diagnoses Not on filedocumented in this encounter
--- OUTSIDE RECORDS SUMMARY | 2022-03-06 07:14 | XMS_ITS | Encounter Summary ---
:1995 Author Organization [facility] Address [address] [place] [address] Care Team Providers Name Role Phone Unavailable Primary Care Provider Unavailable Encounter Details Date Type Department Care Team Description 07/09/2011 Hospital Encounter HX [facility] in [address] [place] [phone] (Wo rk) Social History [...] How often do you attend presybeterian or episcopal More than 4 time s [...] Date Recorded Female 06/21/2021 12:52 PM CAR PRE COOLER documented as of this encounter Miscellaneous Notes Miscellaneous - Conversion, Historical Provider Ser - 05/26/2012 11:31 AM CAR PRE COOLER Ale-kidney infection Document Contains Addenda Addendum by LILI MONDRAGON RN on 26 May 2012 12:03:54 CAR PRE COOLER referred to UC or ER From: PHUONG MAURO To: LYNN Berumen Nurse; Sent: 05/26/2012 11:31:42 CAR PRE COOLER Subject: Ale-kidney infection If you need a prescription refill please call your pharmacy. Please allow 3 business days for processing. Call Center Template: May we leave a message for you on this phone? yes What can I help you with today?she is wondering if she can be squeezed in today for a possible kidney infection What pharmacy do you use? I will send this information to the appropriate staff member who will look into your concern. If thenurse needs to talk to you he or she will call you back within two hours. Thank you for calling [facility]. Source: [facility] POWERCHART Document Id: [id number] documented in this encounter Plan of Treatment Upcoming Encounters Date Type Specialty Care Team Description 04/22/2022 Appointment Laboratory Medicine Meryl Julio M.D. [address] [place], [place] [address] (Wo rk) 04/29/2022 Office Visit Endocrinology Meryl Julio M .D. [address] [place], [place] [address] (Wo rk) documented as of this encounter Procedures Procedure Name Priority Date/Time Associated Diagnosis Comme nts HEPATIC FUNCTION Routine 07/09/2011 10:10 AM Resu lts for this PANEL, S CAR PRE COOLER procedure are i n the results section. GAMMA-GLUTAMYLTRANS Routine 07/09/2011 10:10 AM R esults for this FERASE (GGT), S/P CAR PRE COOLER procedure are in the results section. BASIC METABOLIC Routine 07/09/2011 10:10 AM Resul ts for this PANEL, S/P CAR PRE COOLER procedure are i n the results section. documented in this encounter Results (ABNORMAL) BMP (Basic Metabolic Panel) (07/09/2011 10:10 AM CAR PRE COOLER) P athologist Signature Glucose, 90 70 - 99 POWERCHART Fasting, S MGDL Comment: Results for this accession were completed 07/09/2011 at 10:38 a.m. by [facility] Creatinine 0.6 0.3 - 1.4 MGDL POWERCHART BUN (Blood Urea Nitrogen), S 19 (H) 6 - 18 MGDL POWERCHART Calcium, Total, S 9.0 8.5 - 10.5 MGDL POWERC KELLY Sodium, S 138 135 - 146 MMOLL POWERCHART Potassium, S 4.2 3.5 - 5.3 MMOLL POWERCHART Chloride, S 106 94 - 113 MMOLL POWERCHART CO2 Total 21 (L) 24 - 32 MMOLL POWERCHART Anion Gap 15 7 - 16 MMOLL POWERCHART HXeGFR (MDRD) Not performed. >=60 POWERCHART eGFR Black/ Not performed. >=60 POWERCHART Specimen (Source) Anatomical Collection Method Collection Time Re ceived Time Location / / Volume Laterality Blood 07/09/2011 10:10 AM CAR PRE COOLER Kelly Aguilera D.O. LAB BLOOD ADD-ON Performing Organization Address City/State/ZIP Code Phon e Number POWERCHART GGT (Gamma-Glutamyltransferase) (07/09/2011 10:10 AM CAR PRE COOLER) Patholo gist Method Time Signature Gamma 14 0 - 68 POWERCHART Glutamyltransferase UNITL (GGT), S Specimen (Source) Anatomical Collection Method Collection Time Re ceived Time Location / / Volume Laterality Blood 07/09/2011 10:10 AM CAR PRE COOLER Kelly Aguilera D.O. LAB BLOOD ADD-ON Performing Organization Address City/State/ZIP Code Phon e Number POWERCHART (ABNORMAL) Hepatic Function Panel (07/09/2011 10:10 AM CAR PRE COOLER) [facility] gist Method Time Signature Alkaline 128 (H) 34 - 114 POWERCHART Phosphatase, S UL Aspartate 13 4 - 33 UL POWERCHART Aminotransferase (AST), S Alanine 15 2 - 45 UL POWERCHART Amniotransferase, LD Bilirubin, Total, S 0.5 0.1 - 1.2 POWERCHART MGDL Total Protein, S 6.6 6.5 - 8.3 POWERCHART GDL Albumin, S 4.5 3.5 - 5.1 POWERCHART GMDL Bilirubin, Direct, S 0.1 0.0 - 0.3 POWERCHAR T MGDL Specimen (Source) Anatomical Collection Method Collection Time Re ceived Time Location / / Volume Laterality Blood 07/09/2011 10:10 AM CAR PRE COOLER Kelly Aguilera D.O. LAB BLOOD ADD-ON Performing Organization Address City/State/ZIP Code Phon e Number POWERCHART documented in this encounter Visit Diagnoses Not on filedocumented in this encounter
--- OUTSIDE RECORDS SUMMARY | 2022-03-06 07:14 | XMS_ITS | Encounter Summary ---
:1995 Author Organization [facility] Address [address] [place] [address] Care Team Providers Name Role Phone Unavailable Primary Care Provider Unavailable Encounter Details Date Type Department Care Team Description 02/19/2011 Hospital Encounter [facility]X [facility] Elia Babcock, D.OSebastian [address] [place], [place] [address] (Wo rk) Social History Tobacco [...] How often do you attend jew or confucianism More than 4 time s [...] at Date Recorded Female 06/21/2021 12:52 PM SIGNALS ANALYST documented as of this encounter Progress Notes Marcus Du D.O. - 02/19/2011 3:14 PM CDT NOT [facility] 02/19/2011 REASON FOR VISIT Abdominal pain. HISTORY OF PRESENT ILLNESS This is a 15-year-old female who comes in with his her mother with complaints of abdominal pain. They were seen by Dr. Patterson 2 days ago and diagnosed with a urinary tract infection, was given ciprofloxacin, was told to come if worsening, changing, or not improving symptoms. She comes back today sayingthat she is feeling worse than when she started the Cipro. She is on day 3 of antibiotics at this time. Review of the urine culture revealed mixed jovanna. No specific bacteria was grown out. She complains of pain across her epigastric right upper quadrant region. She says it seems to radiate to her mid-back, both right and left. She states she is feeling a little nauseous. No vomiting. No diarrhea or c onstipation. Last bowel movement was yesterday morning. It was normal for her. She is still passing gas. She is claiming a little bit of dysuria. No hematuria. No blood in the stool. No hematemesis. She said this pain multiple times before has had multiple workups, which have all been relatively negative. She has had her gallbladder and appendix removed in the past. They seem frustrated as they have not ever gotten an answer for this abdominal pain, but it continues to come. They do not follow with any specific Pediatric Ophthalmic Technologist at this time, but [facility] EXAMINATION GENERAL: This is a mildly distressed-appearing 15-year-old female. VITALS: Temp is 37.1, blood pressure is 110/80, pulse 100, weight is 75.7 kg. HEART: Regular rate and rhythm. No murmur. LUNGS: Clear to auscultation bilaterally. ABDOMEN: Soft. Tenderness to palpation in the epigastric and right upper quadrant region. There is no guarding, rebound, or peritoneal signs noted on today's exam. There is some tenderness to palpationof the lower posterior ribs. DIAGNOSTIC DATA Labs performed today include a white count of 8.0, hemoglobin 14.6. Liver enzymes are again elevatedat AST 134, ALT 251, alkaline phosphatase 137. IMPRESSION/REPORT/PLAN 1. Epigastric abdominal pain. 2. Elevated liver function. PLAN At this point, I did not recommend any further evaluation in terms of imaging. Would recommend they get followup with Pediatric Gastroenterology either at the [facility] or [facility] for further evaluation and treatment of these elevated liver enzymes. Recommended avoidance of Tylenol until she is able to do that. Ibuprofen as needed for pain control. Mom does appear frustrated by this abdominal pain and we spent a lot of time discussing possible etiologies and treatment plans, but again Ikeep referring to Pediatric Gastroenterology as that would be the best place for them to get answers. They will follow up with Pediatric Gastroenterology as scheduled today. They verbalized agreement and feel comfortable with our plan. VISIT BASED ON TIME Forty five minutes was spent with with the patient, forty minutes was spent with counseling and coordination of care. KANG/safia Doc#: [id number] cc: Electronically Signed By: MARCUS DU DO On: 02/24/2011 09:30 AM Modified by and Electronically Signed by: MARCUS DU DO On: 02/24/2011 09:30 AM Source: [facility] ISJDICTAPHONESYS Document Id: [id number] documented in this encounter Miscellaneous Notes Miscellaneous - Mir Forrester - 07/13/2013 2:53 PM CST [facility] - Prescription Document Contains Addenda Addendum by MEGAN LOPEZ RN on 13 July 2013 15:06:43 SIGNALS ANALYST See other cerner message. Addendum by BROOKS SALTER RN on 13 July 2013 14:55:48 SIGNALS ANALYST From: BROOKS SALTER RN (LYNN Cruz Nurse) To: LARISA PATEL RN; Sent: 07/13/2013 14:55:48 SIGNALS ANALYST Subject: FW: [facility] - Prescription From: MIR FORRESTER To: LYNN Cruz Nurse; Sent: 07/13/2013 14:53:40 SIGNALS ANALYST ! Subject: [facility] - Prescription If you need a prescription refill please call your pharmacy. Please allow 3 business days for processing. Call Center Template: ?? May we leave a message for you on this phone? ?? How soon do you need a call back? ?? What can I help you with today? Patient called regarding her medication which she received today from Mel[facility] Bust[facility]. Apparently, it has the wrong dose on it. Please call and advise. ?? If Medication Refill: o What is the medication? Dose is incorrect: Codine/guaisenesin 300 mg/5ml. oral liquid. Pharmacy doesn't make that dose. o What pharmacy do you use? [facility]. o Have you contacted your pharmacy regarding this request? left message. I will send this information to the appropriate staff member who will look into your concern. If thenurse needs to talk to you he or she will call you back within two hours. Thank you for calling [facility]. Source: [facility] POWERCHART Document Id: [id number] Miscellaneous - Lili Gonzales, R.N. - 03/04/2011 1:47 PM CDT LFT Document Contains Addenda Addendum by LILI GONZALES RN on 04 March 2011 13:58:17 CDT orders placed and appt scheduled. Addendum by MARCUS DU DO on 04 March 2011 13:51:51 CDT Addendum by MARCUS DU DO on 04 March 2011 13:51:48 CDT Ok to order. From: LILI GONZALES RN To: MARCUS DU; Sent: 03/04/2011 13:47:51 CDT ! Subject: LFT Pt's mother called stating that she received a call from [facility] and was told that she needs to have repeat LFTs today. Mom tried to schedule but order not in [facility]. Ok to order LFT for today by youso they can be repeated for [facility]? Mom can be reached at [phone] x [phone] Marcia. Source: [facility] Triggit Document Id: [id number] Telephone Encounter - Kleber Espinosa REddi - 02/20/2011 5:38 PM CDT Referral to [facility]? Document Contains Addenda Addendum by ROSA BACON on 21 February 2011 16:50:32 CDT From: RSOA BACON To: LILI GONZALES RN; Sent: 02/21/2011 16:50:32 CDT Subject: RE: Referral to [facility]? made to [place] and they have touched base with patient. Addendum by LILI GONZALES RN on 21 February 2011 08:06:35 CDT Addendum by MARCUS DU DO on 21 February 2011 08:05:48 CDT Addendum by MARCUS DU DO on 21 February 2011 08:05:44 CDT Whatever the family prefers - [facility] or [facility] From: KLEBER ESPINOSA RN To: MARCUS DU; Sent: 02/20/2011 17:38:34 CDT Subject: Referral to [facility]? Caller is: ( ) Patient ( x ) Mother ( ) Father ( ) Spouse ( ) Daughter ( ) Son ( ) Pharmacy ( ) Other: Physician:ALBINO Patient MRN #: Reason for Call:IS [facility] ok for referral for Ian? Rosa will put it in there, and they will contact family. Message: Advice/Action: Source used: ( ) Verbalizes understanding [...] back cell phone number ( ) Source: [facility] Document Id: [id number] Miscellaneous - Marcus Du D.O. - 02/19/2011 5:10 PM CDT School or Work Excuse School or Work Excuse Entered On: 02/19/2011 17:11 CDT Performed On: 02/19/2011 17:10 CDT by MARCUS DU DO School or Work Excuse Date Patient Seen: 02/19/2011 CDT Comment: Pt seen in clinic on 02/19/11. Please excuse from work/school due to on- going illness. Parent to decide when child is able to return to school/work. MARCUS DU DO - 02/19/2011 17:10 CDT Source: [facility] Document Id: [id number]!4 Miscellaneous - Maureen Cain Provider Ser - 02/19/2011 3:20 PM CDT Adult Stagecraft Professor Intake/History Adult Stagecraft Professor Intake/History Entered On: 02/19/2011 15:23 CDT Performed On: 02/19/2011 15:20 CDT by CRISTIANO WINTERS ENVIRONMENTAL SAMPLER Intake Chief Complaint: pain getting worse, not better Temperature Core: 37.1C(Converted to: 98.8DegF) Peripheral Pulse Rate: 100/min (HI) Systolic Blood Pressure: 110mmHg Diastolic Blood Pressure: 80mmHg NIBP Mean: 90mmHg Heart Rhythm: Regular Actual Weight: 75.700kg(Converted to: 166lb 14oz) Weight Source: Standing scale Dosing Weight Clinic: 75.70kg CRISTIANO WINTERS TRACEY - 02/19/2011 15:20 CDT General Info Information Given By: Patient CRISTIANO WINTERS TRACEY - 02/19/2011 15:20 CDT Subjective Pain Symptoms: Yes CRISTIANO WINTERS TRACEY - 02/19/2011 15:20 CDT Pain Pain Assessment Grid Pain 1 Location: Other: kidneys Laterality: Bilateral Intensity: 7 CRISTIANO WINTERS TRACEY - 02/19/2011 15:20 CDT Dependent Habits Tobacco Use/Currently Using: No CRISTIANO WINTERS Bharat WEBB - 02/19/2011 15:20 CDT Caffeine Use Grid Caffeine Use: Current Type: Soft drinks Frequency: Weekly Amount: 1 CRISTIANO WINTERS TRACEY - 02/19/2011 15:20 CDT Recreational Drug Use Grid Drug Use: None CRISTIANO WINTERS TRACEY - 02/19/2011 15:20 CDT Allergy Allergies (Active) NKA Estimated Onset Date: Unspecified ; Created By: BRUNO PENG; Reaction Status: Active ; Category: Drug ; Substance: NKA ; Type: Allergy ; Updated By: BRUNO PENG; Reviewed Date: 02/19/2011 15:20 CDT Source: [facility] POWERCHART Document Id: [id number]!33 documented in this encounter Plan of Treatment Upcoming Encounters Date Type Specialty Care Team Description 04/22/2022 Appointment Laboratory Medicine [facility]. [facility] [place] [place] [address] (Wo rk) 04/29/2022 Office Visit Endocrinology Meryl Julio M .D. [facility] [place] [place] [address] (Wo rk) documented as of this encounter Visit Diagnoses Not on filedocumented in this encounter
--- OUTSIDE RECORDS SUMMARY | 2022-03-06 07:14 | XMS_ITS | Encounter Summary ---
:1995 Author Organization [facility] Address [address] [place] [address] Care Team Providers Name Role Phone Unavailable Primary Care Provider Unavailable Encounter Details Date Type Department Care Team Description 05/07/2011 Hospital Encounter [facility]X [facility] [place] 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 [address] [place], [place] [address] (Hector martin) 04/29/2022 Office Visit Endocrinology Meryl Julio M .D. [address] [place], [place] [address] (Hector martin) documented as of this encounter Visit Diagnoses Not on filedocumented in this encounter
--- OUTSIDE RECORDS SUMMARY | 2022-03-06 07:14 | XMS_ITS | Encounter Summary ---
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 [facility] [place], [place] [address] (Wo rk) 04/29/2022 Office Visit Endocrinology Meryl Julio M .D. [address] [place] [address] (Wo rk) documented as of this encounter Visit Diagnoses Not on filedocumented in this encounter
--- OUTSIDE RECORDS SUMMARY | 2022-03-06 07:14 | XMS_ITS | Encounter Summary ---
:1995 Author Organization [facility] Address [address] [place] [address] Care Team Providers Name Role Phone Unavailable Primary Care Provider Unavailable Encounter Details Date Type Department Care Team Description 09/17/2011 Hospital Encounter HX [facility] [place], in 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 [address] [place], [place] [address] (Hector martin) 04/29/2022 Office Visit Endocrinology Meryl Julio M .D. [address] [place], [place] [address] (Hector martin) documented as of this encounter Visit Diagnoses Not on filedocumented in this encounter
--- OUTSIDE RECORDS SUMMARY | 2022-03-06 07:14 | XMS_ITS | Encounter Summary ---
:1995 Author Organization [facility] Address [address] [place] [address] Care Team Providers Name Role Phone Unavailable Primary Care Provider Unavailable Encounter Details Date Type Department Care Team Description 05/24/2012 Hospital Encounter HX [facility] [place], in 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 WORKER documented as of this encounter Last Filed Vital Signs Vital Sign Reading Time Taken Comments Blood Pressure 120/70 05/24/2012 11:20 AM AUTOMOTIVE TIRE WORKER Pulse - - Temperature - - Respiratory Rate - - Oxygen Saturation - - Inhaled Oxygen Concentration - - Weight - - Height - - Body Mass Index - - documented in this encounter Procedure Notes Wolf Munoz CSebsatianMAnup - 05/24/2012 11:19 AM CST Depo-Provera Administration Depo-Provera Administration Entered On: 05/24/2012 11:19 AUTOMOTIVE TIRE WORKER Performed On: 05/24/2012 11:19 AUTOMOTIVE TIRE WORKER by WOLF MUNOZ Depo-Provera Administration Annual Exam in the Past 12 Months : Yes Needs test : No WOLF MUNOZ - 05/24/2012 11:19 AUTOMOTIVE TIRE WORKER Source: [facility] Document Id: [id number] MOTIVE TIRE WORKER documented in this encounter Miscellaneous Notes Miscellaneous - Wolf Munoz C.MAnup - 05/24/2012 11:20 AM CST Ambulatory Vitals Height Weight Ambulatory Vitals Height Weight Entered On: 05/24/2012 11:20 AUTOMOTIVE TIRE WORKER Performed On: 05/24/2012 11:20 AUTOMOTIVE TIRE WORKER by WOLF MUNOZ Vitals/Ht/Wt Systolic Blood Pressure : 120mmHg Diastolic Blood Pressure : 70mmHg NIBP Mean : 87mmHg WOLF MUNOZ - 05/24/2012 11:20 AUTOMOTIVE TIRE WORKER Source: [facility] Document Id: [id number] MOTIVE TIRE WORKER documented in this encounter Plan of Treatment Upcoming Encounters Date Type Specialty Care Team Description 04/22/2022 Appointment Laboratory Medicine Meryl Julio M.D. [address] [place] [address] (Wo rk) 04/29/2022 Office Visit Endocrinology Meryl Julio M .D. [address] [place] [address] (Wo rk) documented as of this encounter Visit Diagnoses Not on filedocumented in this encounter
--- OUTSIDE RECORDS SUMMARY | 2022-03-06 07:14 | XMS_ITS | Encounter Summary ---
:1995 Author Organization [facility] Address [address] [place] [address] Care Team Providers Name Role Phone Unavailable Primary Care Provider Unavailable Encounter Details Date Type Department Care Team Description 03/21/2011 - 03/25/2011 Hospital Encounter HX [facility] 2B Social History Tobacco Use Types Packs/Day Years [...] How often do you attend bahai or jehovah's witness More than 4 time [...] Date Recorded Female 06/21/2021 12:52 PM AUTO TECH documented as of this encounter Plan of Treatment Upcoming Encounters Date Type Specialty Care Team Description 04/22/2022 Appointment Laboratory Medicine Meryl Julio M.D. [address] [place] [address] (Wo rk) 04/29/2022 Office Visit Endocrinology Meryl Julio M .D. [address] [place], [place] [address] (Wo rk) documented as of this encounter Procedures Procedure Name Priority Date/Time Associated Diagnosis Comme nts US ABDOMEN COMPLETE Routine 03/24/2011 3:42 PM Re sults for this CDT procedure are i n the results section. FL ERCP BILIARY AND Routine 03/21/2011 11:21 AM R esults for this PANCREAS CDT procedure are i n the results section. documented in this encounter Results US Abdomen Complete (03/24/2011 3:42 PM CDT) Anatomical Region Laterality Modality Abdomen N/A Ultrasound Specimen (Source) Anatomical Collection Method Collection Time Re ceived Time Location / / Volume Laterality 03/24/2011 3:42 PM CDT Narrative 03/24/2011 4:25 PM CDT 24-Mar-2011 15:42:00 ??Exam: US Abdomen Complete Indications: [id number] ??us abd com p - post ERCP pain ORIGINAL REPORT - 24-Mar-2011 16:25:00 Cholecystectomy. Common hepatic duct is normal in caliber. The liver, spleen, and kidneys look negative with the right kidney measuring 10.1cm and left kidney 10.5cm [id number]. The common bile duct r egion and pancreas are obscured by bowel gas. The patient ate about 30 minutes prior to coming down for her ultrasound and this probably contributes to the amount of bowel gas and poor visualization of this area. Normal caliber abnormal aorta. Electronically signed by: ?? Margie Almodovar MD. ??[id number] 24-Mar-2011 16:25 Procedure Note Lanre Almodovar M.D. - 08/22/2017Formatti ng of this note might be different from the original. 24-Mar-2011 15:42:00 Exam: US Abdomen Co mplete Indications: [id number] us abd comp - post ERCP pain ORIGINAL REPORT - 24-Mar-2011 16:25:00 Cholecystectomy. Common hepatic duct is normal in caliber. The liver, spleen, and kidneys look negative with the right kidney measuring 10.1cm and left kidney 10.5cm [id number]. The common bile duct region and pancreas are obscured by bowel gas. The patient ate about 30 minutes prior to coming down for her ultrasound and this probably contributes to the amount of bowel gas and poor visualization of this area. Normal caliber abnormal aorta. Electronically signed by: Margie Almodovar MD. [id number] 24-Mar-2011 16:25 Adam Faith M.D. 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 Electronically signed by: ?? Omar. ??Kimani LOPEZ. ??[id number] 21-Mar-2011 13:54 Procedure Note Manuel Harman M.D. - 08/22/2017Forma tting of this note might be different from the original. 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 Electronically signed by: Tereza Harman MD. [id number] 21-Mar-2011 13:5 4 Afua SRIVASTAVA FLUOROSCOPY PROCEDURES documented in this encounter Visit Diagnoses Not on filedocumented in this encounter
--- OUTSIDE RECORDS SUMMARY | 2022-03-06 07:15 | XMS_ITS | Encounter Summary ---
:1995 Author Organization [facility] Address [address] [place] [address] Care Team Providers Name Role Phone Unavailable Primary Care Provider Unavailable Encounter Details Date Type Department Care Team Description 07/23/2010 Hospital Encounter HX [facility] LENNOX Aguilera, in C, D.O. [...] How often do you attend yazidi or restorationist More than 4 time s [...] at Date Recorded Female 06/21/2021 12:52 PM GEOLOGY ASSOCIATE documented as of this encounter Progress Notes Chris Aguilera D.O. - 07/23/2010 4:05 PM CST [facility] 07/23/2010 REASON FOR VISIT Follow up wart. Discuss abdominal pain and upcoming travel. HISTORY OF PRESENT ILLNESS Ramírez is a 14-year-old who presents to the clinic today unaccompanied for reevaluation of multiple issues. To begin, she does have a plantar wart that she has had two previous cryotherapy treatments in the past three weeks. She has had improvement but continues to have a small amount of wart still present. This is an area of her foot that is tender to walk on. She is requesting repeat cryotherapy today. Additionally Ramírez has a history of chronic abdominal pain. She has had very thorough evaluation. There has been no obvious etiology. She has been treated for C-diff colitis and recent retesting of her stool has been normal. She is concerned about possibility of abdominal pain recurring on her upcoming trip with her class to [facility]. She has used narcotic medication in the past to control her pain and is requesting medication to take with her just in case. She has no history of misuse or abuse. She is wondering if there are other immunizations or additional plan that she needs to discuss regarding her upcoming trip. She will be going to [facility]. Some of the [facility] in approximately two weeks. She has received all of her routine immunizations but has not had hepatitis A. MEDICATIONS 1. Omeprazole, 20 mg daily. 2. Odessa tablet daily. ALLERGIES No known drug allergies. EXAMINATION VITALS: Pulse 88. Respirations 20. Blood pressure 108/60. Weight 72.8 kilograms. GENERAL: This is a well appearing 14-year-old female in no acute distress. FOOT: Foot reveals a small, 4 mm in diameter continued plantar wart. This area was pared down using a 15 blade scalpel and swabbed with alcohol. Then in a freeze/thaw/freeze method, cryotherapy was applied for at least 20 seconds each time. IMPRESSION/REPORT/PLAN 1. Plantar wart. Cryotherapy was applied. This should be no charge as this is follow up treatment. 2. Abdominal pain, not otherwise specified. She has had a very thorough workup with no known etiology. Symptoms moderately controlled at this time. She is worried about going overseas without family ormedications to control pain. I did give her Percocet, 5/325 30 tablets to take with her in the eventof worsening pain. We did discuss that if pain is significant she may have to be seen by a physicianthere or consider early return home. 3. I discussed universal precautions when it comes to traveling including avoidance of mosquito bites and drinking clean water. She was given a handout from the CDC web site. I will be in touch with our infectious disease specialist regarding any additional recommendations regarding any additional ian mmendations regarding beginning immunizations for hepatitis A or typhoid fever. She does not appear to be going to a province that she will need malaria prophylaxis based on the CDC recommendations. She was in understanding and agreement with the plan. /[facility] Doc#: [id number] cc: Electronically Signed By: CHRIS AGUILERA DO On: 07/25/2010 05:10 Source: [facility] ISJDICTAPHONESYS Document Id: [id number] OGY ASSOCIATE documented in this encounter Miscellaneous Notes Miscellaneous - Chris Aguilera D.O. - 07/23/2010 4:27 PM CST Ambulatory Patient Summary [address] [address] Visit Information Name: FLAQUITO TURNER Current Date: 07/23/2010 16:27:18 Primary Care Provider: CHRIS AGUILERA DO Your Medications Here is a list of your medications. It is important to take your medications as directed. Use a pillbox or chart to help remind you to take your medications. Please let your doctor or nurse know if you have problems taking your medications. Medication/Strength Dose Route Frequency Indications/Special Instructions/Comments acetaminophen-oxycodone (Percocet 5/325 oral tablet) 1 tab(s) Oral every 4 hours as needed for Pain No more than 4,000mg acetaminophen/24hrs drospirenone-ethinyl estradiol (Odessa oral tablet) 1 tab(s) Oral once a day omeprazole (omeprazole 20 mg oral delayed release capsule) 2 capsules Oral once a day Your Allergies & Intolerances Substance Reaction Symptoms Category Comments NKA Drug Your Problem List Problem Status Onset Comments Abdominal pain - Unspecified site Active Elevated Liver Enzymes Active Dysmenorrhea Active 07/01/2010 Your Recommendations We want to make sure [...] Screening Chlamydia every 1 year Females Age 15-24 07/23/2010 Your Upcoming Appointments Date Time Location Reason Provider No Appointments found Your Goals/Additional instructions: Source: [facility] POWERCHART Document Id: [id number] Electronically signed by Payton [facility] Director Of Agriculture [id number] at 10/26/2016 5:37 PM CDT Miscellaneous - Chris Aguilera, D.O. - 07/23/2010 4:27 PM CST Ambulatory Depart Summary [address] [address] Visit Information Name: FLAQUITO TURNER Current Date: 07/23/2010 16:27:18 Primary Care Provider: CHRIS AGUILERA DO FLAQUITO TURNER has been given the following list of medications: Your Medications It is important to take your medications as directed. Use a pill box or chart to help remind you to take your medications. Please let your doctor or nurse know if you have problems taking your medications. Medication/Strength Dose Route Frequency Indications/Special Instructions/Comments acetaminophen-oxycodone (Percocet 5/325 oral tablet) 1 tab(s) Oral every 4 hours as needed for Pain No more than 4,000mg acetaminophen/24hrs drospirenone-ethinyl estradiol (Odessa oral tablet) 1 tab(s) Oral once a day omeprazole (omeprazole 20 mg oral delayed release capsule) 2 capsules Oral once a day Additional Information: Yes - Current list of reconciled medications is provided and explained to the patient and/or family, guardian/caregiver. Source: [facility] POWERCHART Document Id: [id number] Electronically signed by Payton, [facility] Director Of Agriculture [id number] at 10/26/2016 5:37 PM CDT Miscellaneous - Conversion, Historical Provider Ser - 07/23/2010 4:13 PM GEOLOGY ASSOCIATE Pediatric Construction Representative Intake/History Pediatric Construction Representative Intake/History Entered On: 07/23/2010 16:15 GEOLOGY ASSOCIATE Performed On: 07/23/2010 16:13 GEOLOGY ASSOCIATE by CRISTIANO WINTERS LPN Intake Chief Complaint: discuss test results, immus needed for trip?? Peripheral Pulse Rate: 88/min Respiratory Rate: 20/min Systolic Blood Pressure: 108mmHg Diastolic Blood Pressure: 60mmHg NIBP Mean: 76mmHg Heart Rhythm: Regular Actual Weight: 72.800kg(Converted to: 160lb 8oz) Weight Source: Standing scale Dosing Weight Clinic: 72.80kg CRISTIANO WINTERS LPN - 07/23/2010 16:13 GEOLOGY ASSOCIATE General Info Accompanied By: Alone Information Given By: Patient CRISTIANO WINTERS LPN - 07/23/2010 16:13 GEOLOGY ASSOCIATE Subjective Pain Symptoms: No CRISTIANO WINTERS LPN - 07/23/2010 16:13 GEOLOGY ASSOCIATE Dependent Habits Tobacco Use/Currently Using: No Alcohol Use: No CRISTIANO WINTERS LPN - 07/23/2010 16:13 GEOLOGY ASSOCIATE Caffeine Use Grid Caffeine Use: Current Type: Soft drinks Frequency: Weekly Amount: 1 CRISTIANO WINTERS LPN - 07/23/2010 16:13 GEOLOGY ASSOCIATE Allergy Allergies (Active) NKA Estimated Onset Date: Unspecified ; Created By: BRUNO PENG; Reaction Status: Active ; Category: Drug ; Substance: NKA ; Type: Allergy ; Updated By: BRUNO PENG; Reviewed Date: 07/23/2010 16:13 GEOLOGY ASSOCIATE Source: [facility] POWERCHART Document Id: [id number] GEOLOGY ASSOCIATE!26 documented in this encounter Plan of Treatment Upcoming Encounters Date Type Specialty Care Team Description 04/22/2022 Appointment Laboratory Medicine Meryl Julio M.D. [address], [place] [address] (Hector martin) 04/29/2022 Office Visit Endocrinology Meryl Julio M .D. [address] [place] [address] (Hector martin) documented as of this encounter Visit Diagnoses Not on filedocumented in this encounter
--- OUTSIDE RECORDS SUMMARY | 2022-03-06 07:15 | XMS_ITS | Encounter Summary ---
:1995 Author Organization [facility] Address [address] [place] [address] Care Team Providers Name Role Phone Unavailable Primary Care Provider Unavailable Encounter Details Date Type Department Care Team Description 09/18/2010 Hospital Encounter HX [facility] Bolivar Watson M.D. [address] [place] [address] (Wo rk) Social History Tobacco [...] often do you attend latter day or adventist More than 4 time s per year [...] at Date Recorded Female 06/21/2021 12:52 PM FORECLOSURE FIELD INSPECTOR documented as of this encounter Progress Notes Madyson Hdz M.D. - 09/18/2010 12:45 PM CDT [facility] 09/18/2010 REASON FOR VISIT Dysuria. HISTORY OF PRESENT ILLNESS Flaquito is a 15-year-old young woman with a long history of chronic abdominal pain who comes in with her mom with a new complaint. Starting about two days ago it was very painful to urinate. She is only urinating in small amounts but denies increased frequency. She admits that she is trying to drink a lot but only small amount comes out when she urinates. She has urinated twice today. She started getting her menses yesterday and her menses are very heavy currently. She is having more of her chronicabdominal pain and her mom notes that she is seeing more of a cycle now with flare of the abdominal pain with the menstrual cycle. Flaquito admits that she would like to consider changing her cont rol pill as she is getting more headaches and dysmenorrhea on the Odessa. She sees Dr. Kelly Aguilerafor primary care and has been on the Odessa for [address] Aguilera. Other history is that she went to [facility] for a week in mid to later July with her school [employer] class and did need to take one dose of antibiotic prescribed by Dr. Vee during that trip but otherwise it was uneventful without a flare of any of any of her chronic conditions. PAST MEDICAL, FAMILY, AND SOCIAL HISTORY Medical: 1. Largely remarkable for chronic abdominal pain with full workup at the [facility] and other physicians. 2. Dysmenorrhea. Social: She is in high school and currently working. She does not smoke cigarettes or drink alcohol. MEDICATIONS Odessa OCPs 1 tablet daily. EXAMINATION GENERAL: Physical examination shows a teenager in no acute distress. VITAL SIGNS: Blood pressure is 110/70. Pulse is 88. Respirations 20. Temperature 37.2. Weight 73.6 kilograms. DIAGNOSTIC DATA Urinalysis shows negative leukocyte esterase and negative nitrite. It is concentrated with specific gravity of 1.030. Microscopic 0 2 white blood cells and half packed field of red blood cells but 2+ bacteria. It is sent for culture. IMPRESSION/REPORT/PLAN 1. Dysuria with symptoms very suggestive of a urinary tract infection. Urinalysis may be tempered bythe fact that she is having her menses. Will culture the urine but as that will take 24 to 48 hours will treat empirically and mom is in agreement with this. Prescription for Bactrim DS 1 tablet twice d aily for 3 days. Her urine is very concentrated and I did stress she needs to drink more as she should have very dilute urine if in fact she was drinking as much as she thought she was. 2. Chronic abdominal pain seemingly flared with menses. 3. control with side effects including headache and worsening dysmenorrhea. For both #2 and #3above patient is referred back to her primary care Dr. Aguilera and an appointment is made on their way out today. Of note as well I did give Flaquito a note for yesterday and today to be of school andnot to work. EDGAR/ita Doc#: [id number] cc: Electronically Signed By: MADYSON HDZ MD On: 09/24/2010 08:30 Source: [facility] ISJDICTAPHONESYS Document Id: [id number] documented in this encounter Miscellaneous Notes Miscellaneous - Madyson Hdz M.D. - 09/18/2010 1:37 PM CDT Ambulatory Patient Summary [place] [address] [place] [address] Visit Information Name: FLAQUITO TURNER Current Date: 09/18/2010 13:37:15 Primary Care Provider: KELLY AGUILERA DO Your Medications Here is a list of your medications. It is important to take your medications as directed. Use a pillbox or chart to help remind you to take your medications. Please let your doctor or nurse know if you have problems taking your medications. Medication/Strength Dose Route Frequency Indications/Special Instructions/Comments sulfamethoxazole-trimethoprim (Bactrim DS) 1 tab Oral two times a day urine infection drospirenone-ethinyl estradiol (Odessa oral tablet) 1 tab(s) Oral once a day Your Allergies & [...] Chlamydia every 1 year Females Age 15-24 09/18/2010 Your Upcoming Appointments Date Time Location Reason Provider No Appointments found Your Goals/Additional instructions: Source: [facility] POWERCHART Document Id: [id number] Electronically signed by Payton, [facility] Diesel Locomotive Crane Operator [id number] at 10/26/2016 10:05 AM CDT Miscellaneous - Madyson Hdz M.D. - 09/18/2010 1:37 PM CDT Ambulatory Depart Summary [place] [address] [place] [address] Visit Information Name: FLAQUITO TURNER Current Date: 09/18/2010 13:37:15 Primary Care Provider: KELLY AGUILERA DO FLAQUITO TURNER has been given the following list of medications: Your Medications It is important to take your medications as directed. Use a pill box or chart to help remind you to take your medications. Please let your doctor or nurse know if you have problems taking your medications. Medication/Strength Dose Route Frequency Indications/Special Instructions/Comments sulfamethoxazole-trimethoprim (Bactrim DS) 1 tab Oral two times a day urine infection drospirenone-ethinyl estradiol (Odessa oral tablet) 1 tab(s) Oral once a day Additional Information: Yes - Current list of reconciled medications is provided and explained to the patient and/or family, guardian/caregiver. Source: [facility] XRONet Document Id: [id number] Electronically signed by Payton [facility] Diesel Locomotive Crane Operator [id number] at 10/26/2016 10:05 AM CDT Miscellaneous - Madyson Hdz M.D. - 09/18/2010 1:35 PM CDT School or Work Excuse School or Work Excuse Entered On: 09/18/2010 13:37 CDT Performed On: 09/18/2010 13:35 CDT by MADYSON HDZ MD School or Work Excuse Date Patient Seen: 09/18/2010 CDT Date of Return to School/Work Without Restrictions: 09/19/2010 CDT Comment: off work/school 09/17-09/18/10 MADYSON HDZ MD - 09/18/2010 13:35 CDT [facility] Document Id: [id number] CDT!5 Miscellaneous - Conversion, [facility] Provider Ser - 09/18/2010 12:55 PM CDT Pediatric Regroover Intake/History Pediatric Regroover Intake/History Entered On: 09/18/2010 12:58 CDT Performed On: 09/18/2010 12:55 CDT by CRISTIANO WINTERS LPN Intake Actual Weight: 73.600kg(Converted to: 162lb 4oz) Weight Source: Standing scale Dosing Weight Clinic: 73.60kg CRISTIANO WINTERS LPN - 09/18/2010 12:58 CDT Chief Complaint: bladder infection? abd pain Temperature Core: 37.2C(Converted to: 99.0DegF) Peripheral Pulse Rate: 88/min Respiratory Rate: 20/min Systolic Blood Pressure: 110mmHg Diastolic Blood Pressure: 70mmHg NIBP Mean: 83mmHg CRISTIANO WINTERS [facility] - 09/18/2010 12:55 CDT General Info Mode of Arrival: Ambulatory Accompanied By: Mother Information Given By: Patient, Mother CRISTIANO WINTERS [facility] - 09/18/2010 12:55 CDT Subjective Pain Symptoms: Yes CRISTIANO WINTERS [facility] - 09/18/2010 12:55 CDT Pain Pain Assessment Grid Pain 1 Location: Abdomen Laterality: Bilateral Intensity: 7 CRISTIANO WINTERS [facility] 09/18/2010 12:55 CDT Dependent Habits Tobacco Use/Currently Using: No Alcohol Use: No CRISTIANO WINTERS [facility] 09/18/2010 12:55 CDT Caffeine Use Grid Caffeine Use: Current Type: Soft drinks Frequency: Weekly Amount: 1 CRISTIANO WINTERS [facility] 09/18/2010 12:55 CDT Recreational Drug Use Grid Drug Use: None CRISTIANO WINTERS [facility] 09/18/2010 12:55 CDT Allergy Allergies (Active) NKA Estimated Onset Date: Unspecified ; Created By: BRUNO PENG; Reaction Status: Active ; Category: Drug ; Substance: NKA ; Type: Allergy ; Updated By: BRUNO PENG; Reviewed Date: 09/18/2010 12:55 CDT Source: [facility] [employer] Document Id: [id number] CDT!5 documented in this encounter Plan of Treatment Upcoming Encounters Date Type Specialty Care Team Description 04/22/2022 Appointment Laboratory Medicine Meryl Julio M.D. [address] [place] [address] (Hector martin) 04/29/2022 Office Visit Endocrinology Meryl Julio M .D. [address] [place] [address] (Hector martin) documented as of this encounter Visit Diagnoses Not on filedocumented in this encounter
--- OUTSIDE RECORDS SUMMARY | 2022-03-06 07:15 | XMS_ITS | Encounter Summary ---
:1995 Author Organization [facility] Address [address] [place] [address] Care Team Providers Name Role Phone Unavailable Primary Care Provider Unavailable Encounter Details Date Type Department Care Team Description 07/24/2010 Hospital Encounter [facility]X [facility] Verenice Fleming M.D. [address] [place], [place] [id number] (Wo rk) Social History Tobacco Use Types [...] How often do you attend yarsanism or confucianist More than 4 time s [...] at Date Recorded Female 06/21/2021 12:52 PM CONSULTING SERVICES MANAGER documented as of this encounter H&P Notes Kavitha Mariscal M.D. - 07/24/2010 2:00 PM CST P INT. MED./INF. DIS. DATE OF SERVICE 07/24/2010 REASON FOR VISIT Pre-travel history and physical. DESCRIPTION OF TRAVELER The traveler is a 14-year-old teenage female in stable health. DESTINATION/ITINERARY She will be leaving the [facility] on 08/10/2010, coming back home on 2010. She will be going to [facility] with a group of students and teachers from school as part of the Study Abroad Program, studying with the Ang[place] language class. Detailed itinerary is not available yet, however, it appeared that food, accommodations all will be prearranged. They will be in urban area, [place] mostly. They also plan to make day trips, short trips to neighboring areas. ALLERGIES No known medication allergies. MEDICATIONS Reviewed and confirmed. IMMUNIZATION HISTORY 1. Hepatitis B - Completed 3-dose series. 2. Diphtheria and tetanus - Last dose in 2005. 3. Polio - Completed series. 4. MMR - Completed 2 doses. 5. Chicken pox - She has received chicken pox immunization once. PAST MEDICAL HISTORY GERD, diagnosed about a year ago. PAST SURGICAL HISTORY Cholecystectomy and appendectomy in September of 2009. (She also has an incident of elevated transaminases about 5 to 10 times normal range, from unclear etiology.) GUN PERFORATOR LOADER HISTORY No GUN PERFORATOR LOADER issues. Her periods are regular. She is now on Odessa daily. FAMILY HISTORY Noncontributory issues. SOCIAL HISTORY She is an eleventh grade student. She lives with her parents. She has no siblings. PHYSICAL EXAMINATION VITALS: Temp 36.7, pulse 72, blood pressure 112/68, respirations of 16. GENERAL DESCRIPTION: A 14-year-old well-nourished, well-developed teenage female. HEAD & NECK: Examination within normal limits. RESPIRATORY SYSTEM: Bilateral air entry, clear to auscultation. CARDIOVASCULAR SYSTEM: First and second heart sounds. GASTROINTESTINAL SYSTE M: Soft, nontender, benign. EXTREMITIES: Normal findings. NERVOUS SYSTEM: Examination within normal limits. DATA REVIEW Immunization record is available and reviewed. ASSESSMENT AND PLAN A 14-year-old teenage female in stable health, planning about a week trip to [facility], as part of the Study Abroad Program with school [place]olan class. PROPHYLAXIS/VACCINATION 1. Malaria - The patient's mother will inquire about risk of malaria exposure and the need for malaria prophylaxis from the group. If needed, chloroquine weekly regime and instruction will be provided. 2. Hepatitis A - Hepatitis A immunization 2-dose series will be started. There is about 2 weeks timebefore departure. 3. Typhoid - Injectable typhoid immunization given. 4. Meningitis - Since she will be in close contact with local populace and also due to the fact thatfritz will be needing meningitis immunization next year when she goes to college, meningitis immunization was given. 5. Yellow fever - No need for yellow fever immunization for this trip. 6. Travelers diarrhea - Z-YOSSI 5-day course to use as empiric treatment if needed provided. 7. No need for booster doses of tetanus, measles, polio. 8. Rabies - Risk of rabies exposure exists, however, not enough time left to complete the series. Post-exposure prophylaxis is also available. Advice related to food, fruit, water, medications, insect and animal bites, sun exposure, swimming in natural body of water, high altitude-related health problems, and STDs; information package provided. Relevant information was also discussed. Post-travel followup for completion of immunization series - hepatitis A immunization series. Post-travel followup if fever, rash, diarrhea, etc., develop after return. Questions related to travel health all were answered. TT:marcie Doc#: [id number] cc: Electronically Signed By: KAVITHA MARISCAL MD On: 08/05/2010 03:38 Source: [facility] ISJDICTAPHONESYS Document Id: [id number] documented in this encounter Miscellaneous Notes Miscellaneous - Madison Brown R.N. - 07/24/2010 4:32 PM CST Reminder Msg From: MADISON BROWN RN To: MADISON BROWN RN; Sent: 07/24/2010 16:32:19 CONSULTING SERVICES MANAGER Show up: 01/27/2011 10:00:00 CDT Subject: Reminder Msg Due Date/Time: 01/27/2011 10:00:00 CDT Please Remember to: call mother patient needs 2nd Hep A shot. PATIENT: ( ) Call Patient ( ) Ask Patient to ( ) ( ) Call Relative ( ) Schedule Patient ( ) ( ) Call for Membership Manager ( ) Follow up on Results ( ) Other: PROVIDER: ( ) Call Physician ( ) Call Pharmacist ( ) Call Lab ( ) Other: Special Instructions: Comments: Source: [facility] POWERCHART Document Id: [id number] Electronically signed by [facility] Control Room Technician [id number] at 10/26/2016 5:37 PM CDT Miscellaneous - Emily Patino, AleidaPEddi - 07/24/2010 2:16 PM CST Adult Lens Coater Intake/History Adult Lens Coater Intake/History Entered On: 07/24/2010 14:18 CONSULTING SERVICES MANAGER Performed On: 07/24/2010 14:16 CONSULTING SERVICES MANAGER by EMILY PATINO LPN Intake Chief Complaint: Pt here for travel to [facility] Temperature Core: 36.7C(Converted to: 98.1DegF) Peripheral Pulse Rate: 72/min Respiratory Rate: 16/min Systolic Blood Pressure: 112mmHg Diastolic Blood Pressure: 68mmHg NIBP Mean: 83mmHg BP Location: Left upper extremity Heart Rhythm: Regular Actual Weight: 73.500kg(Converted to: 162lb 1oz) Weight Source: Standing scale Dosing Weight Clinic: 73.50kg EMILY PATINO [facility] - 07/24/2010 14:16 CONSULTING SERVICES MANAGER Subjective Pain Symptoms: No EMILY PATINO [facility] - 07/24/2010 14:16 CONSULTING SERVICES MANAGER Dependent Habits Tobacco Use/Currently Using: No Alcohol Use: No EMILY PATINO [facility] - 07/24/2010 14:16 CONSULTING SERVICES MANAGER Caffeine Use Grid Caffeine Use: Current Type: Soft drinks Frequency: Weekly Amount: 1 EMILY PATINO [facility] - 07/24/2010 14:16 CONSULTING SERVICES MANAGER Recreational Drug Use Grid Drug Use: None EMILY PATINO [facility] - 07/24/2010 14:16 CONSULTING SERVICES MANAGER Allergies Allergies (Active) NKA Estimated Onset Date: Unspecified ; Created By: BRUNO PENG; Reaction Status: Active ; Category: Drug ; Substance: NKA ; Type: Allergy ; Updated By: BRUNO PENG; Reviewed Date: 07/24/2010 14:15 CONSULTING SERVICES MANAGER Source: [facility] POWERCHART Document Id: [id number] CONSULTING SERVICES MANAGER!28 ULTING SERVICES MANAGER documented in this encounter Plan of Treatment Upcoming Encounters Date Type Specialty Care Team Description 04/22/2022 Appointment Laboratory Medicine Meryl Julio M.D. [address] [place] [address] (Hector martin) 04/29/2022 Office Visit Endocrinology Meryl Julio M .D. [address] [place] [address] (Hector martin) documented as of this encounter Visit Diagnoses Not on filedocumented in this encounter
--- OUTSIDE RECORDS SUMMARY | 2022-03-06 07:15 | XMS_ITS | Encounter Summary ---
:1995 Author Organization [facility] Address [address] [place] [address] Care Team Providers Name Role Phone Unavailable Primary Care Provider Unavailable Encounter Details Date Type Department Care Team Description 07/01/2010 Hospital Encounter HX [facility] LENNOX Aguilera, in [address] [place] [address] (Wo rk) Social History Tobacco Use [...] How often do you attend jewish or worship More than 4 time s [...] at Date Recorded Female 06/21/2021 12:52 PM TOP POLISHER documented as of this encounter Progress Notes Chris Aguilera D.O. - 07/01/2010 9:54 AM CST [facility] 07/01/2010 REASON FOR VISIT Cold-type symptoms, renewal of control and warts. HISTORY OF PRESENT ILLNESS Ramírez is a pleasant 14-year-old accompanied to clinic today by her mother's friend for evaluation of multiple issues. There is a consent form on the chart signed by her mother to allow for me to care Dionisio today. According to Ramírez, for the last couple of days, she has had a sore throat, nasal congestion and ear pain. She admits to generalized achiness but has had no fevers, chills, nausea, vomiting ordiarrhea. Denies any abdominal pain. States that nasal congestion has been very minimal. She notes significant pain when she swallows. She stayed home from school today because of her symptoms. She notes that there have been several kids at school with similar symptoms but no known strep throat. Ramírez also has history of abdominal pain. She has superimposed dysmenorrhea which has improved with the use of Odessa. She denies any side effects from the medication. She has currently been on the medication for 4 months and n otes that overall symptoms have been improving. She is requesting a refill of the medication. She is not sexually active. She does remember to take it on a daily basis. Finally, she is concerned about plantar warts. She has a large one on the bottom of her foot which has been present for several months. She also notes that there is one on her finger which was present for an entire year and then went away and over the past couple of months has returned. She has been trying mjep-uvf-ykiyvqg Compound W ointment without much improvement. Medications Odessa and omeprazole. Allergies No known drug allergies. EXAMINATION VITAL SIGNS: Blood pressure is 112/78, pulse 76, respirations 20, temperature is 36.4, weight is 72.3 kg. GENERAL: This is a well-appearing 14-year-old in no acute distress. HEENT: Head is normocephalic. Mouth; mucous membranes are moist. Tonsils are not enlarged. There is mild erythema of the posterior pharynx. Nose is nonerythematous with minimal drainage. Bilateral tympanic membranes are pearly francisco with a good light reflex. NECK: Neck is supple. There is mild anterior cervical chain lymphadenopathy. LUNGS: Lungs are clear to auscultation bilaterally without wheezes, rhonchi or rales. ABDOMEN: Abdomen is soft and nontender. SKIN: Evaluation of her skin reveals a small 3 mm in diameter flat wart over the dorsal aspect of her right middle finger. There is also a larger 8 mm in diameter plantar wart on the sole of her right foot at the base of her third toe. These areas were pared down using a #11 blade scalpel. They were both swabbed with alcohol and in a qkimna-fera-wulpey method for at least 20 seconds each time, obtaining a good 2-mm ring around each lesion, cryotherapy was applied. There were no complications. IMPRESSION/REPORT/PLAN 1. Upper respiratory infection. Would recommend supportive care including nasal saline washes, Tylenol, ibuprofen as needed for pain. Discussed that if this is mono, a monospot test would not yet be positive. Would expect symptoms to continue for 3-5 days. If any worsening symptoms or occurrence of new symptoms, she would need to be reevaluated. If symptoms persist beyond 2 weeks, we could consider monospot testing at that time. 2. Dysmenorrhea. This has improved with use of Odessa. I did give her refills for one year. 3. Plantar wart with cryotherapy as described above to 2 lesions, 8 mm and 3 mm in diameter. PLAN: Follow up in 10-14 days for refreezing, otherwise as needed. Natanael Doc#: [id number] cc: Electronically Signed By:CHRIS AGUILERA DO On 07/06/2010 04:10 PM Source: [facility] ISJDICTAPHONESYS Document Id: [id number] POLISHER documented in this encounter Miscellaneous Notes Miscellaneous - Joslyn Burks L.P.N. - 07/01/2010 10:11 AM CST Pediatric Feed Mixer Helper Intake/History Pediatric Feed Mixer Helper Intake/History Entered On: 07/01/2010 10:14 TOP POLISHER Performed On: 07/01/2010 10:11 TOP POLISHER by JOSLYN WANG RETORT OR CONDENSER PRESS OPERATOR Intake Chief Complaint: sore throat, ear pain, achey Temperature Core: 36.4C(Converted to: 97.5DegF) (LOW) Peripheral Pulse Rate: 76/min Respiratory Rate: 20/min Systolic Blood Pressure: 112mmHg Diastolic Blood Pressure: 78mmHg NIBP Mean: 89mmHg Actual Weight: 72.300kg(Converted to: 159lb 6oz) Dosing Weight Clinic: 72.30kg [facility] - 07/01/2010 10:11 TOP POLISHER Subjective Pain Symptoms: Yes [facility] - 07/01/2010 10:11 TOP POLISHER Pain Pain Assessment Grid Pain 1 Pain 2 Pain 3 Location: Generalized Throat Ear [facility]N [facility] - 07/01/2010 10:11 TOP POLISHER [facility] - 07/01/2010 10:11 TOP POLISHER [facility] - 07/01/2010 10:11 TOP POLISHER Dependent Habits Tobacco Use/Currently Using: No [facility] - 07/01/2010 10:11 TOP POLISHER Caffeine Use Grid Caffeine Use: Current Type: Soft drinks Frequency: Weekly Amount: 1 [facility]N [facility] - 07/01/2010 10:11 TOP POLISHER Allergy Allergies (Active) NKA Estimated Onset Date: Unspecified ; Created By: BRUNO PENG; Reaction Status: Active ; Category: Drug ; Substance: NKA ; Type: Allergy ; Updated By: BRUNO PENG; Reviewed Date: 07/01/2010 10:10 TOP POLISHER Source: [facility] POWERCHART Document Id: [id number] TOP POLISHER!29 POLISHER documented in this encounter Plan of Treatment Upcoming Encounters Date Type Specialty Care Team Description 04/22/2022 Appointment Laboratory Medicine Meryl Julio M.D. [address] [place] [address] (Wo rk) 04/29/2022 Office Visit Endocrinology Meryl Julio M .D. [address] [place] [address] (Wo rk) documented as of this encounter Visit Diagnoses Not on filedocumented in this encounter
--- OUTSIDE RECORDS SUMMARY | 2022-03-06 07:15 | XMS_ITS | Encounter Summary ---
:1995 Author Organization [facility] Address [address] [place] [address] Care Team Providers Name Role Phone Unavailable Primary Care Provider Unavailable Encounter Details Date Type Department Care Team Description 09/04/2009 Hospital Encounter HX [facility] STEVE Bolivar Watson M.D. [address] [place] [address] (Wo rk) Social History Tobacco [...] often do you attend jehovah's witness or scientologist More than 4 time s [...] at Date Recorded Female 06/21/2021 12:52 PM FIELD REP documented as of this encounter Progress Notes Madyson Hdz M.D. - 09/04/2009 9:15 AM CDT [facility] 09/04/2009 REASON FOR VISIT Incisional bleeding. HISTORY OF PRESENT ILLNESS Felecia is a 14-year-old young woman who underwent laparoscopic cholecystectomy and appendectomy on08/21/09. This was at [facility] in the [facility]. She reports that she was told that she coulddo any sort of activities. She recently restarted track. She admits she is a discus thrower and I believe shot-put. Yesterday her upper laparoscopic incision in the epigastric area had significant bleeding and bled through the band-aid and onto her shirt. It did fairly quickly stop. There was also some green pus that seemed to come out per patient report. The area has always been a little bit tender.All three laparoscopic incision sites had been closed on the exterior with Dermabond glue. This gluehad come off upper incision. Patient admits that when she was throwing, she did feel like something tore on the inside up by the upper incision. She did have a low-grade fever a few days ago. She was given some ibuprofen and it resolved and did not return. She has been eating fairly well and bowels are working well. She admits she has a bowel movement every time she eats. Both her and her mom report that the upper incision the one that bled recently did always kind of drain a little bit of bloody serosanguineous fluid on and off ever since the surgery. Felecia reports that all three sites are tender if you push on them but especially the upper one was always more tender. At school she has to go up and down multiple stairs. She has a very heavy backpack probably close to 20-30 pounds when it is fully packed with books. [facility] Past medical history is largely unremarkable. She has been evaluated this year and some of 2008 for abdominal pain hence the surgery. She also has a history of atypical, intermittent chest pain. She did have a colonoscopy and EGD in the past secondary to her chronic, intermittent abdominal pain. Social history: She lives with her mother. She does not smoke cigarettes. MEDICATIONS 1. Vicodin, 5/500 one tablet q4 hours p.r.n. severe pain. She has rarely been taking these. She has not taken one for several days. Took one last night after the upper incision broke open. 2. Ibuprofen, 200 mg two tablets q4 hours p.r.n. for pain or fever. ALLERGIES No known drug allergies. EXAMINATION Teen girl in no acute distress. Vital signs: Blood pressure 126/64. Pulse 60. Temperature 37.1. Weight 69.9 kilograms. Abdomen shows three 1 cm horizontal incision areas typical of laparoscopic surgery. The two sites on her lower right abdomen have surgical skin glue covering them. The surrounding skin does not appear inflamed. The upper epigastric incision no longer has any glue. It has slight dehiscence perhaps half a mm or so. There is no active bleeding. Gentle palpation does not express any fluid. No surrounding erythema. IMPRESSION/REPORT/PLAN Surgical incision dehiscence, likely multifactorial given the serosanguineous, slightly colored, greenish material that did come out when it opened up. She may have had a very mild infection subcutaneous. There is no obvious infection at this time. It is no longer actively bleeding. We discussed healing by secondary intention. It will probably continue to bleed on and off but should heal up. Certainly the abdominal and chest wall motion required for discus and shot-put throwing contributed to the dehiscence of the incision and will be difficult to heal given these continued activities. Patient and her mom are very worried/concerned. Will have her out of track as certainly being off track another week as she has missed the first few weeks will make it so that she will probably need to be out the season. She is fairly OK with this. As well wrote a note for school to see if we can decrease the amount of stairs she goes on for the next several weeks and see if she can have help with carrying some of her very heavy books just for the next two weeks. Mom reports she can drive her to and from school and even help get some of the school books into the school for her. After a couple of weeks, this area should be healed enough that she can resume full school activity. As above she will avoid any strenuous activities such as throwing and track. Patient and mom are understanding of this plan of care and know what to look for for any signs of infection. Of note they do not have scheduled follow up withthe surgeon as they were told that they could just follow up here. VISIT BASED ON TIME: 25 out of 30 minutes were spent with patient and her mother in face to face counseling and coordination of care. [facility] Doc#: [id number] cc: Electronically Signed By:MADYSON HDZ MD On 09/05/2009 01:59 PM Source: [facility] ISJDICTAPHONESYS Document Id: [id number] documented in this encounter Miscellaneous Notes Miscellaneous - Kleber Espinosa, R.N. - 09/04/2009 9:27 AM CDT Pediatric Bioprocessing Manufacturing Technician Intake/History Pediatric Bioprocessing Manufacturing Technician Intake/History Entered On: 09/04/2009 9:32 CDT Performed On: 09/04/2009 9:27 CDT by KLEBER ESPINOSA property developer Chief Complaint: Upper center inscision oozing. Onset of Symptoms: Couple of days ago. Temperature Core: 37.1DegC(Converted to: 98.8DegF) Apical Heart Rate: 60bpm Heart Rhythm: Regular Systolic Blood Pressure: 126mmHg Diastolic Blood Pressure: 64mmHg NIBP Mean: 85mmHg Actual Weight: 69.900kg(Converted to: 154lb 2oz, 154.103lb, 2,465.650oz) Dosing Weight Clinic: 69.90kg KLEBER ESPINOSA RN - 09/04/2009 9:27 CDT General Info Preferred Name: Ramírez Accompanied By: Mother Accompanied by Names: KLEBER Mejía Elton RN - 09/04/2009 9:27 CDT Subjective Pain Symptoms: Yes KLEBER ESPINOSA RN - 09/04/2009 9:27 CDT Pain Pain Assessment Grid Pain 1 Location: Abdomen Laterality: Bilateral Intensity: 6 Time Pattern: Constant Quality: Burning KLEBER ESPINOSA Elton RN - 09/04/2009 9:27 CDT Dependent Habits Tobacco Use/Currently Using: No Alcohol Use: No RONSHAHNAZ WALLSCourtney Conde RN - 09/04/2009 9:27 CDT Caffeine Use Grid Caffeine Use: Current Type: Soft drinks Frequency: Weekly Amount: 1 SHAHNAZ ESPINOSACourtney Conde RN - 09/04/2009 9:27 CDT Allergy Allergies (Active) NKA Estimated Onset Date: Unspecified ; Created By: BRUNO PENG; Reaction Status: Active ; Category: Drug ; Substance: NKA ; Type: Allergy ; Updated By: BRUNO PENG; Reviewed Date: 09/04/2009 9:25 CDT Source: [facility] Document Id: [id number] CDT!35 documented in this encounter Plan of Treatment Upcoming Encounters Date Type Specialty Care Team Description 04/22/2022 Appointment Laboratory Medicine Meryl Julio M.D. [address] [place] [address] (Hector martin) 04/29/2022 Office Visit Endocrinology Meryl Julio M .D. [address] [place] [address] (Hector martin) documented as of this encounter Visit Diagnoses Not on filedocumented in this encounter
--- OUTSIDE RECORDS SUMMARY | 2022-03-06 07:15 | XMS_ITS | Encounter Summary ---
:1995 Author Organization [facility] Address [address] [place] [address] Care Team Providers Name Role Phone Unavailable Primary Care Provider Unavailable Encounter Details Date Type Department Care Team Description 08/07/2009 Hospital Encounter HX [facility] JESSICA HERNANDEZ Provider, [facility] Social History Tobacco Use Types Packs/Day Years [...] How often do you attend yazidism or protestant More than 4 time s [...] Date Recorded Female 06/21/2021 12:52 PM DETECTIVE [place] documented as of this encounter Plan of Treatment Upcoming Encounters Date Type Specialty Care Team Description 04/22/2022 Appointment Laboratory Medicine Meryl Julio M.D. [address] [place], [place] [address] (Wo rk) 04/29/2022 Office Visit Endocrinology Meryl Julio M .D. [address] [place], [place] [address] (Wo rk) documented as of this encounter Procedures Procedure Name Priority Date/Time Associated Diagnosis Comme nts CT ABDOMEN PELVIS Routine 08/07/2009 2:36 PM Resu lts for this WITH IV CONTRAST CDT procedure a re in the results section. documented in this encounter Results CT Abdomen Pelvis with IV Contrast (08/07/2009 2:36 PM CDT) Anatomical Region Laterality Modality Abdomen, Pelvis N/A Computed Tomography Specimen (Source) Anatomical Collection Method Collection Time Re ceived Time Location / / Volume Laterality 08/07/2009 2:36 PM CDT Addenda Addendum by Provider, Willy Reddy 08/07/2009 2:36 PM CDT RAD^^^MA CT ABDOMEN PELVIS W CONTRAST 08/07/2009 14:36:00 CT ABDOMEN PELVIS W CONTRAST Impressions 08/07/2009 4:00 PM CDT ?? 1. No acute intra-abdominal/pelvic patho logy. 2. Normal appendix. Narrative 08/07/2009 4:00 PM CDT HISTORY: 13-year-old female with abdomin al pain. ?? Comparison: None. ?? Technique: [address] slices were obt ained from the lung bases through the symphysis pubis after the ad ministration of oral and IV contrast. Coronal images were reconstruc cathy from source images. ?? FINDINGS: ?? Lung bases: The lung bases and pleural s paces are ??clear. ?? Abdomen and pelvis: There is no free int raperitoneal air, free fluid, fluid collection, or abscess. The append ix is normal in appearance of the right lower quadrant on image 61 of series 4. There is no abdominal or pelvic lymphadenopathy. The liver, kidneys, spleen, pancreas, adrenal glands, small bowel an d colon are normal in appearance. ?? Bones: There no lytic or blastic bone le sions identified. ?? Procedure Note Jet Spears M.D. / Provider, Eagle brower M.D. - 10/16/2016 HISTORY: 13-year-old female with abdomin al pain. Comparison: None. Technique: [address] slices were obt ained from the lung bases through the symphysis pubis after the ad ministration of oral and IV contrast. Coronal images were reconstruc cathy from source images. FINDINGS: Lung bases: The lung bases and pleural s paces are clear. Abdomen and pelvis: There is no free int raperitoneal air, free fluid, fluid collection, or abscess. The append ix is normal in appearance of the right lower quadrant on image 61 of series 4. There is no abdominal or pelvic lymphadenopathy. The liver, kidneys, spleen, pancreas, adrenal glands, small bowel an d colon are normal in appearance. Bones: There no lytic or blastic bone le sions identified. IMPRESSION: 1. No acute intra-abdominal/pelvic patho logy. 2. Normal appendix. Historical Provider IMG CT PROCEDURES documented in this encounter Visit Diagnoses Not on filedocumented in this encounter
--- OUTSIDE RECORDS SUMMARY | 2022-03-06 07:15 | XMS_ITS | Encounter Summary ---
:1995 Author Organization [facility] Address [address] [place] [address] Care Team Providers Name Role Phone Unavailable Primary Care Provider Unavailable Encounter Details Date Type Department Care Team Description 04/17/2010 Hospital Encounter HX [facility] Josh Byrnes, L.I.C.S.W. 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 [address] [place] [address] (Wo rk) 04/29/2022 Office Visit Endocrinology Meryl Julio M .D. [address] [place] [address] (Wo rk) documented as of this encounter Visit Diagnoses Not on filedocumented in this encounter
--- OUTSIDE RECORDS SUMMARY | 2022-03-06 07:15 | XMS_ITS | Encounter Summary ---
:1995 Author Organization [facility] Address [address] [place] [address] Care Team Providers Name Role Phone Unavailable Primary Care Provider Unavailable Encounter Details Date Type Department Care Team Description 10/04/[address] [facility] Aguilera, in C, 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 - 10/04/2010 3:47 PM CDT [facility] 10/04/2010 REASON FOR VISIT Discuss control. HISTORY OF PRESENT ILLNESS Flaquito is a 15-year-old female, who presents to the clinic today accompanied by her mom for evaluation of dysmenorrhea. She has chronic abdominal pain and has followed at [facility] as well as [facility] in [place]. She has had an appendectomy and cholecystectomy and occasionally stillhas pain. In addition to upper abdominal pain she does describe painful periods. Over the course of her evaluation and management of her upper abdominal pain we did place her control pills. She was placed on Odessa initially and noted improvement in pain with periods as well as the flow. Prior to starting oral contraceptives she was having heavy periods and occasionally going through a pad an hour. After beginning treatment with Odessa she did have improvement. However, over the last 3 months she has noted that she is now having breakthrough bleeding. She will begin periods in the last week of active pills and continues to have a period while she is on the placebos. She notes that the periods have become much heavier and she is having quite a bit of cramping again. Mom was recently diagnosed with endometriosis and is on the Depo shot. Flaquito does not wish to pursue treatment with Depo-Provera at this time. Mom is also concerned that Flaquito does not remember to take the pill. Flaquito n otes that because the Odessa did not seem to be working on this last week she basically stopped it altogether. Prior to that; however, she is remembering to take it on a nightly basis. Flaquito is not sexually active. MEDICATIONS Include Odessa oral contraceptive daily. ALLERGIES No known drug allergies. EXAMINATION VITAL SIGNS: Blood pressure 110/70, pulse 64, respirations 20, temp is 37.3, weight is 73.9 kg. GENERAL: This well-appearing 15-year-old in no acute distress. The rest of the exam is deferred today. IMPRESSION/REPORT/PLAN Dysmenorrhea. This was initially improved with the Odessa, but now she is having more breakthrough bleeding. Discussed her options including Mirena intrauterine device, Depo-Provera shot, pills, patches and NuvaRing. She wishes to continue with oral contraception. Therefore, I will increase the amountof progesterone and she is on. Did call APRI oral control pills to [facility]. Will plan recheck in 3-4 months. If she continues to have breakthrough bleeding, will have to consider increasing the dose of progestin further. She was in understanding and agreement with the plan. MIKE/elliotb Doc#: [id number] cc: Electronically Signed By: CHRIS AGUILERA DO On: 10/09/2010 07:33 PM Source: [facility] ISJDICTAPHONESYS Document Id: [id number] documented in this encounter Miscellaneous Notes Miscellaneous - Chris Aguilera D.O. - 10/04/2010 4:16 PM CDT Ambulatory Patient Summary [address] [id number] Visit Information Name: FLAQUITO TURNER MARTIN Current Date: 10/04/2010 16:16:25 Primary Care Provider: CHRIS AGUILERA DO Your Medications Here is a list of your medications. It is important to take your medications as directed. Use a pillbox or chart to help remind you to take your medications. Please let your doctor or nurse know if you have problems taking your medications. Medication/Strength Dose Route Frequency Indications/Special Instructions/Comments desogestrel-ethinyl estradiol (Apri oral tablet) 1 tab(s) [...] Chlamydia every 1 year Females Age 15-24 10/04/2010 11/03/2010 Your Upcoming Appointments Date Time Location Reason Provider No Appointments found Your Goals/Additional instructions: Source: [employer] Document Id: [id number] Electronically signed by Conversion, [employer] [address] Near Eastern Archaeology Lecturer [id number] at 10/26/2016 6:13 PM CDT Miscellaneous - Chris Aguilera D.O. - 10/04/2010 4:16 PM CDT Ambulatory Depart Summary [address] [address] Visit Information Name: FLAQUITO TURNER Current Date: 10/04/2010 16:16:25 Primary Care Provider: CHRIS AGUILERA DO FLAQUITO TURNER has been given the following list of medications: Your Medications It is important to take your medications as directed. Use a pill box or chart to help remind you to take your medications. Please let your doctor or nurse know if you have problems taking your medications. Medication/Strength Dose Route Frequency Indications/Special Instructions/Comments desogestrel-ethinyl estradiol (Apri oral tablet) 1 tab(s) Oral once a day dysmenorrhea Additional Information: Yes - Current list of reconciled medications is provided and explained to the patient and/or family, guardian/caregiver. Source: [employer] Document Id: [id number] Electronically signed by Conversion, [facility] Near Eastern Archaeology Lecturer [id number] at 10/26/2016 6:13 PM CDT Miscellaneous - China Munoz C.MSebastianASebastian - 10/04/2010 3:55 PM CDT Pediatric Data Processing Consultant Intake/History Pediatric Data Processing Consultant Intake/History Entered On: 10/04/2010 15:58 CDT Performed On: 10/04/2010 15:55 CDT by CHINA MUNOZ Intake Chief Complaint: discuss control Temperature Core: 37.3C(Converted to: 99.1DegF) Peripheral Pulse Rate: 64/min Respiratory Rate: 20/min Systolic Blood Pressure: 110mmHg Diastolic Blood Pressure: 70mmHg NIBP Mean: 83mmHg BP Location: Left upper extremity Actual Weight: 73.900kg(Converted to: 162lb 15oz) Dosing Weight Clinic: 73.90kg CHINA MUNZO - 10/04/2010 15:55 CDT General Info Accompanied By: Mother CHINA MUNOZ - 10/04/2010 15:55 CDT Subjective Pain Symptoms: No CHINA MUNOZ - 10/04/2010 15:55 CDT Dependent Habits Tobacco Use/Currently Using: No Alcohol Use: No CHINA MUNOZ - 10/04/2010 15:55 CDT Caffeine Use Grid Caffeine Use: Current Type: Soft drinks Frequency: Weekly Amount: 1 CHINA MUNOZ - 10/04/2010 15:55 CDT Recreational Drug Use Grid Drug Use: None CHINA MUNOZ - 10/04/2010 15:55 CDT Allergy Allergies (Active) NKA Estimated Onset Date: Unspecified ; Created By: BRUNO PENG; Reaction Status: Active ; Category: Drug ; Substance: NKA ; Type: Allergy ; Updated By: BRUNO PENG; Reviewed Date: 10/04/2010 15:54 CDT Source: [facility] POWERCHART Document Id: [id number]!28 documented in this encounter Plan of Treatment Upcoming Encounters Date Type Specialty Care Team Description 04/22/2022 Appointment Laboratory Medicine Meryl Julio M.D. [facility] [place], [place] [address] (Wo rk) 04/29/2022 Office Visit Endocrinology Meryl Julio M .D. [address] [place] [address] (Hector rk) documented as of this encounter Visit Diagnoses Not on filedocumented in this encounter
--- OUTSIDE RECORDS SUMMARY | 2022-03-06 07:15 | XMS_ITS | Encounter Summary ---
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 [facility] [place], [place] [address] (Wo rk) 04/29/2022 Office Visit Endocrinology Meryl Julio M .D. [address] [place] [address] (Wo rk) documented as of this encounter Visit Diagnoses Not on filedocumented in this encounter
--- OUTSIDE RECORDS SUMMARY | 2022-03-06 07:15 | XMS_ITS | Encounter Summary ---
:[address] [facility] Address [address] [place] [address] Care Team Providers Name Role Phone Unavailable Primary Care Provider Unavailable Encounter Details Date Type Department Care Team Description 04/15/2010 Hospital Encounter HX [facility] Aguilera, in [address], [address] [place] [address] (Wo rk) Social History Tobacco Use [...] How often do you attend judaism or sikhism More than 4 time s [...] at Date Recorded Female 06/21/2021 12:52 PM CONTRACTOR BROOMCORN THRESHING documented as of this encounter Progress Notes Kelly Aguilera D.O. - 04/15/2010 2:36 PM CST [facility] 04/15/2010 REASON FOR VISIT Follow up hospitalization. HISTORY OF PRESENT ILLNESS The patient is a pleasant, 14-year-old female with chronic abdominal pain, who presents to clinic today accompanied by her mom for re-evaluation. She has been evaluated and managed both at [facility] in [place], as well as [facility]. Over the past year and a half, she has had problems with right upper quadrant pain, occasionally associated with elevated liver enzymes. She has undergone laparoscopic cholecystectomy and appendectomy, as well as an EGD and colonoscopy. Two weeks ago, she was seen in clinic by Nidia Richards. At that time, she was dehydrated andvomiting. Liver enzymes were slightly elevated and she was admitted to the hospital overnight for observation and pain control. Liver enzymes quickly returned to normal and she was able to advance her diet very quickly overnight. She was discharged in less than 24 hours. I did speak with her pediatricgastroenterologist at the time, who recommended checking a serial plasmin level, as well as a hepatitis A, CMV and EBV titers. All were negative or within the normal range. The patient did follow up with her secondary special education teacher at [employer] last week. They are very unsatisfied with the visit. They felt liketheir history was unheard and that a lot of their concerns and theories were not even taking into consideration by the physician there. Blood was drawn at that visit to prove that her liver enzymes hadreturned to normal and were not elevated in the absence of pain. Review of the chart shows that muchof the sample was hemolyzed, but ALT was in fact normal. According to the patient, she has not had symptoms since then. She continues on omeprazole twice daily. She reports mild, if any improvement, while taking the medication, but her secondary special education teacher was encouraged that she had even mild improvement. Her secondary special education teacher recommended transfer to [facility] if symptoms reoccur, and consideration of MRCP at that time. I met the patient about a year and a half ago, when all of these symptoms were occurring. I was concerned that there was some increased stress and raised the possibility at the time of a stress reaction leading to worsening abdominal pain. It is noted that she has had some mild elevated liver enzymes,but otherwise all laboratory testing and studies have been normal. Her mom was concerned that her pain was related to her menstrual cycle, and 3 months she was placed on Odessa. She also reports mild improvement while on Odessa. We have talked about my concern for her pain and lack of findings. She does not feel particularly stressed and is adamant that she would never consider medication for her mood. Her mom does have a history of depression, as well as chronic pelvic pain, and is also currently undergoing evaluation. Her mom has been scheduled for a laparoscopic surgery by OPTIMIZATION SPECIALIST to evaluate for possible endometriosis, and her mom is concerned that she could also have endometriosis. It should be noted, however, that the patient's symptoms are not at all related to menstrual periods. They are not related to eating, and there is really no rhyme or reason to her pain. When it occurs, it worsens over a period of 24-48 hours, and occasionally is associated with elevated liver enzymes, which return to normal before discharge. During her last visit, she did have a mild fever and elevated white count,which quickly returned to normal as well. MEDICATIONS 1. Omeprazole 20 mg twice daily. 2. Oxycodone 5 mg every 6 hours as needed for pain. 3. Odessa oral contraceptive daily. ALLERGIES No known drug allergies. EXAMINATION VITAL SIGNS: Blood pressure is 120/60, pulse 72, respirations 20. Weight is 70.1 kilograms, which isstable over the last 6 months. GENERAL: This is a well-appearing, 14-year-old in no acute distress. The rest of the exam is deferred today. IMPRESSION/REPORT/PLAN 1. Chronic abdominal pain. 2. Elevated liver enzymes. I would agree with her pediatric secondary special education teacher as far as needed to further evaluate her elevated liver enzymes if they do occur. Will plan transfer to [place] if symptoms reoccur. Also had a long discussion with the patient and her mother, Marcia, about the possibility of superimposed stress or irritable bowel syndrome on her abdominal pain, and the uncertainty of not knowing what is going on could be contributing to her pain. Mom was agreeable to this thought, but the patient does not feel that stress is playing any role at all. She did, however, agree to pursue some stress reduction techniques, deep breathing techniques, and possibly consideration of biofeedback to help with her abdominal pain. I certainly do not want her on oxycodone for pain control, and again, despite thorough evaluation, really no etiology has been found. Mom was in understanding and agreement with the plan. Will refer her to Jena Bryant for assistance with stress reduction techniques. VISIT BASED ON TIME Twenty of twenty-five minutes was spent in direct [id number] counseling and coordination of care. MIKE/william Doc#: [id number] cc: Electronically Signed By:KELLY AGUILERA DO On 04/19/2010 05:00 PM Source: [facility] ISJDICTAPHONESYS Document Id: [id number] RACTOR BROOMCORN THRESHING documented in this encounter Miscellaneous Notes Miscellaneous - China Munoz, CSebastianMSebastianASebastian - 04/15/2010 2:55 PM CST Pediatric Special Warfare Boat Operator Intake/History Pediatric Special Warfare Boat Operator Intake/History Entered On: 04/15/2010 14:58 CONTRACTOR BROOMCORN THRESHING Performed On: 04/15/2010 14:55 CONTRACTOR BROOMCORN THRESHING by CHINA MUNOZ Intake Chief Complaint: follow up after [facility] Temperature Core: 36.8C(Converted to: 98.2DegF) Peripheral Pulse Rate: 72/min Respiratory Rate: 20/min Systolic Blood Pressure: 120mmHg Diastolic Blood Pressure: 60mmHg NIBP Mean: 80mmHg BP Location: Right upper extremity CHINA MUNOZ - 04/15/2010 14:55 CONTRACTOR BROOMCORN THRESHING General Info Accompanied By: Mother Information Given By: Patient, Mother CHINA MUNOZ - 04/15/2010 14:55 CONTRACTOR BROOMCORN THRESHING Subjective Pain Symptoms: Yes CHINA MUNOZ - 04/15/2010 14:55 CONTRACTOR BROOMCORN THRESHING Pain Pain Assessment Grid Pain 1 Location: Abdomen Laterality: Bilateral Intensity: 5 CHINA MUNOZ - 04/15/2010 14:55 CONTRACTOR BROOMCORN THRESHING Dependent Habits Tobacco Use/Currently Using: No Alcohol Use: No CHINA MUNOZ - 04/15/2010 14:55 CONTRACTOR BROOMCORN THRESHING Caffeine Use Grid Caffeine Use: Current Type: Soft drinks Frequency: Weekly Amount: 1 CHINA MUNOZ Elton - 04/15/2010 14:55 CONTRACTOR BROOMCORN THRESHING Allergy Allergies (Active) NKA Estimated Onset Date: Unspecified ; Created By: BRUNO PENG; Reaction Status: Active ; Category: Drug ; Substance: NKA ; Type: Allergy ; Updated By: BRUNO PENG; Reviewed Date: 04/15/2010 14:54 CONTRACTOR BROOMCORN THRESHING Source: [facility] [employer] Document Id: [id number] CONTRACTOR BROOMCORN THRESHING!30 RACTOR BROOMCORN THRESHING documented in this encounter Plan of Treatment Upcoming Encounters Date Type Specialty Care Team Description 04/22/2022 Appointment Laboratory Medicine Meryl Julio M.D. [address] [place] [address] (Hector martin) 04/29/2022 Office Visit Endocrinology Meryl Julio M .D. [address] [place] [address] (Hector martin) documented as of this encounter Visit Diagnoses Not on filedocumented in this encounter
--- OUTSIDE RECORDS SUMMARY | 2022-03-06 07:15 | XMS_ITS | Encounter Summary ---
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 [address] [place], [place] [address] (Hector martin) 04/29/2022 Office Visit Endocrinology Meryl Julio M .D. [address] [place], [place] [address] (Hector martin) documented as of this encounter Visit Diagnoses Not on filedocumented in this encounter
--- OUTSIDE RECORDS SUMMARY | 2022-03-06 07:15 | XMS_ITS | Encounter Summary ---
:1995 Author Organization [facility] Address [address] [place] [address] Care Team Providers Name Role Phone Unavailable Primary Care Provider Unavailable Encounter Details Date Type Department Care Team Description 07/25/2010 Hospital Encounter HX [facility] Aguilera, in [address], 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 [address] [place], [place] [address] (Hector martin) 04/29/2022 Office Visit Endocrinology Meryl Julio M .D. [address] [place], [place] [address] (Hector martin) documented as of this encounter Visit Diagnoses Not on filedocumented in this encounter
--- OUTSIDE RECORDS SUMMARY | 2022-03-06 07:15 | XMS_ITS | Encounter Summary ---
:1995 Author Organization [facility] Address [address] [place] [address] Care Team Providers Name Role Phone Unavailable Primary Care Provider Unavailable Encounter Details Date Type Department Care Team Description 04/01/2010 Hospital Encounter HX [facility] Eric Trejo in 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 [address] [place], [place] [address] (Hector martin) 04/29/2022 Office Visit Endocrinology Meryl Julio M .D. [address] [place], [place] [address] (Hector martin) documented as of this encounter Procedures Procedure Name Priority Date/Time Associated Diagnosis Comme nts DX ABDOMEN SUPINE Routine 04/01/2010 12:34 PM Res ults for this WITH UPRIGHT OR SPAGHETTI PRESS HELPER procedure ar e in DECUBITUS 2 VIEWS the result s section. documented in this encounter Results DX Abdomen Supine with Upright or Decubitus 2 Views (04/01/2010 12:34 PM SPAGHETTI PRESS HELPER) Anatomical Region Laterality Modality Abdomen Right Radiographic Imaging Specimen (Source) Anatomical Collection Method Collection Time Re ceived Time Location / / Volume Laterality 04/01/2010 12:34 PM SPAGHETTI PRESS HELPER Impressions 04/01/2010 12:51 PM SPAGHETTI PRESS HELPER Nonspecific mild ileus bowel gas pattern. Narrative 04/01/2010 12:51 PM SPAGHETTI PRESS HELPER Supine and erect views of the abdomen ar e compared to a study of 03/13/2009, demonstrating a nonspecific bowel gas pattern with no evidence of obstruction or free air. The re are air-fluid levels within the colon, consistent with a nonspecific ileus pattern. Postoperative changes of cholycystectomy are noted in the right upper quadrant and there are also postoperative changes now identified in the right midabdominal region as well. There are n o abnormal calcifications or soft tissue masses. ?? Procedure Note Christiano Stovall M.D. / Provider, Renu coon M.D. - 10/17/2016 Supine and erect views of the abdomen ar e compared to a study of 03/13/2009, demonstrating a nonspecific bowel gas pattern with no evidence of obstruction or free air. The re are air-fluid levels within the colon, consistent with a nonspecific ileus pattern. Postoperative changes of cholycystectomy are noted in the right upper quadrant and there are also postoperative changes now identified in the right midabdominal region as well. There are n o abnormal calcifications or soft tissue masses. IMPRESSION: Nonspecific mild ileus bowel gas pattern. Historical Provider IMG DIAGNOSTIC IMAGING PROCE DURES documented in this encounter Visit Diagnoses Not on filedocumented in this encounter
--- OUTSIDE RECORDS SUMMARY | 2022-03-06 07:15 | XMS_ITS | Encounter Summary ---
:1995 Author Organization [facility] Address [address] [place] [address] Care Team Providers Name Role Phone Unavailable Primary Care Provider Unavailable Encounter Details Date Type Department Care Team Description 03/13/2009 Hospital Encounter HX [facility] M.D. 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 [address] [place], [place] [address] (Hector martin) 04/29/2022 Office Visit Endocrinology Meryl Julio M .D. [address] [place], [place] [address] (Hector rk) documented as of this encounter Procedures Procedure Name Priority Date/Time Associated Diagnosis Comme nts DX ABDOMEN SUPINE Routine 03/13/2009 9:53 AM Resu lts for this WITH UPRIGHT OR CDT procedure ar e in DECUBITUS 2 VIEWS the result s section. documented in this encounter Results DX Abdomen Supine with Upright or Decubitus 2 Views (03/13/2009 9:53 AM CDT) Anatomical Region Laterality Modality Abdomen Right Radiographic Imaging Specimen (Source) Anatomical Collection Method Collection Time Re ceived Time Location / / Volume Laterality 03/13/2009 9:53 AM CDT Impressions 03/13/2009 10:19 AM CDT Nonobstructive bowel gas pattern. Retain ed stool throughout the colon. Narrative 03/13/2009 10:19 AM CDT Supine and upright projections of the ab domen were obtained. There are no prior studies for direct comparison. ?? FINDINGS: ?? Retained stool is seen throughout the co shawn. There is no evidence of bowel obstruction. Small bowel loops are normal caliber with no evidence of air-fluid level. There is no evidence of free intraperitoneal air. No pathologic calcification, soft tissue mass or organomegaly is identified. Osseous structures have a age-appropriat e appearance. ?? Procedure Note Juaquin Dawkins M.D. / Provider, Jamaal obrien M.D. - 10/28/2016 Supine and upright projections of the ab domen were obtained. There are no prior studies for direct comparison. FINDINGS: Retained stool is seen throughout the co shawn. There is no evidence of bowel obstruction. Small bowel loops are normal caliber with no evidence of air-fluid level. There is no evidence of free intraperitoneal air. No pathologic calcification, soft tissue mass or organomegaly is identified. Osseous structures have a age-appropriat e appearance. IMPRESSION: Nonobstructive bowel gas pattern. Retain ed stool throughout the colon. Historical Provider IMG DIAGNOSTIC IMAGING PROCE ASHLEY documented in this encounter Visit Diagnoses Not on filedocumented in this encounter
--- OUTSIDE RECORDS SUMMARY | 2022-03-06 07:15 | XMS_ITS | Encounter Summary ---
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 [facility] [place], [place] [address] (Wo rk) 04/29/2022 Office Visit Endocrinology Meryl Julio M .D. [address] [place] [address] (Wo rk) documented as of this encounter Visit Diagnoses Not on filedocumented in this encounter
--- OUTSIDE RECORDS SUMMARY | 2022-03-06 07:15 | XMS_ITS | Encounter Summary ---
:1995 Author Organization [facility] Address [address] [place] [address] Care Team Providers Name Role Phone Unavailable Primary Care Provider Unavailable Encounter Details Date Type Department Care Team Description 04/01/2010 Hospital Encounter HX [facility] C, R.N. [address] [facility], [facility] [address] [address] (Wo rk) Social History Tobacco Use Types [...] How often do you attend scientologist or jain More than 4 time s [...] at Date Recorded Female 06/21/2021 12:52 PM BUYERS' AGENT documented as of this encounter Progress Notes Debbie Holguin N.P. - 04/01/2010 9:55 AM CST [facility] 04/01/2010 REASON FOR VISIT Abdominal pain. HISTORY OF PRESENT ILLNESS This 14-year-old teen is seen accompanied with her mother regarding concerns of epigastric pain. Shedescribes this pain as similar to gastritis for which she was seen a few months ago. She notes that at about 8 oclock yesterday evening she started vomiting with fever. She was experiencing back pain into the front of the chest and had trouble breathing. She was seen at [facility], underwent labs and x-ray all of which were [place] [address] which was felt to be due to vomiting. She was given Phenergan and morphine. Symptoms improved. She declined admission and was discharged home with Vicodin and Compazine. However shortly after returning home she started vomiting again. It is not certain whether she kept much of the Vicodin down or even the Compazine. She reportsthat she has not drank fluids since yesterday. She feels that she is getting dehydrated. Flaquito and her mom acknowledge that she has been followed through first by [facility] and then by [facility] regarding her ongoing symptoms. She has had EGD, MRI. Is on Prilosec 20 mg b.i.d. She also had a tilt table test because of dizziness. She was told she was not drinking enough fluids and needed moresalt in her diet. She was just seen in [place] last week. Aside from the epigastric pain and just feeling generally poor she denies any other new pain. She denies any shortness of breath or difficulty breathing. No chest pain currently. Pain is all epigastric. She did have diarrhea last night and has not had a bowel movement today. She notes no blood in the bowel movements. MEDICATIONS [place]essa OCPs one tablet daily; Vicodin currently not taking since last night; Prilosec 20 mg b.i.d. ROS Rest of review of systems is otherwise stable. EXAMINATION VITAL SIGNS: Weight 70.1 kg as compared to 70.3 kg in September 2009. Blood pressure 88/60. Pulse 88. Temperature is 38.4. GENERAL: Flaquito is alert and oriented to person and place. She appears tired and miserable. Describes her pain as 8/10 regarding epigastric pain. HEENT: TMs are clear. Pupils PERRLA with EOM. Oropharynx is clear. No cervical adenopathy. NECK: Supple, full range of motion. Thyroid WNL. CHEST: Lung sounds are clear to auscultation. CARDIAC: Heart is regular with no murmurs or gallops. ABDOMEN: Epigastric tenderness on palpation. Otherwise no rebound tenderness. No palpable organomegaly. No bruits heard. MUSCULOSKELETAL: Intact. NEUROLOGIC: Intact. SKIN: Intact. LABS: Followup white count today is 9600 with hemoglobin 14.8. Glucose 89. Creatinine 0.7. BUN 13. Calcium 8.5. Sodium 135. Potassium 3.8. Chloride 104. CO2 21. IMPRESSION/REPORT/PLAN Acute onset of epigastric pain with fever and vomiting, diarrhea. History of gastritis diagnosed at [facility] last week. PLAN: Consult with Dr. Aguilera regarding treatment. She accepts Flaquito for admission for hydration and further evaluation. Patient and mother verbalize understanding and agreement with plan of care. VISIT BASED ON TIME: Time 20 of 30 minutes in counseling and coordination of care. DELLA/delbert Doc#: [id number] cc: Electronically Signed By:DEBBIE HOLGUIN On 04/04/2010 03:09 pm Modified by:DEBBIE HOLGUIN On 04/04/2010 03:09 pm Source: [facility] ISJDICTAPHONESYS Document Id: [id number] RS' AGENT documented in this encounter Miscellaneous Notes Telephone Encounter - Kleber Espinosa, RSebastianN. - 04/11/2010 2:38 PM BUYERS' AGENT Mary Jane/Labs? Document Contains Addenda Addendum by KLEBER ESPINOSA RN on 11 April 2010 17:27:20 BUYERS' AGENT Addendum by KLEBER ESPINOSA RN on 11 April 2010 17:27:10 BUYERS' AGENT LM on mom's cell phone, they were picking up labs, so appears they intend to go. Addendum by CHRIS AGUILERA DO on 11 April 2010 17:01:30 BUYERS' AGENT From: CHRIS AGUILERA DO To: KLEBER ESPINOSA RN; Sent: 04/11/2010 17:01:30 BUYERS' AGENT ! Subject: RE: [place]/Labs? I left a msg about this, but just in case, yes she should go, to followup the elevated liver enzymesand continued abdominal pain despite use of omeprazole. thanks From: KLEBER ESPINOSA RN To: CHRIS AGUILERA DO; Sent: 04/11/2010 14:38:50 BUYERS' AGENT ! Subject: Mary Jane/Labs? Caller is: ( ) Patient ( x [phone] ext [phone]) Mother ( ) Father ( ) Spouse ( ) Daughter ( ) Son () Pharmacy ( ) Other: Physician:miriam Patient MRN #: Reason for Call: Flaquito has an appointment for [place] tomorrow, Mom wonders if she is supposed to take lab reports from hospital with her? Also wonders why exactly you want Flaquito to be seen again in [place]. Wonders what she is following up for? Medications are almost gone, wonders if this is why? Message: Mom sounds confused. I have instructed her to take lab reports with her, she is working on obtaining. Please advise about f/u appn't. Thanks. Advice/Action: Source used: ( ) Verbalizes understanding [...] back cell phone number ( ) Source: [facility] POWERCHART Document Id: [id number] Miscellaneous - Conversion, Historical Provider Ser - 04/01/2010 10:26 AM BUYERS' AGENT Pediatric Sample Coordinator Intake/History Pediatric Sample Coordinator Intake/History Entered On: 04/01/2010 10:30 BUYERS' AGENT Performed On: 04/01/2010 10:26 BUYERS' AGENT by CRISTIANO WINTERS LPN Intake Chief Complaint: abd pain started yesterday, seen in [place] last night Temperature Core: 38.4C(Converted to: 101.1DegF) Peripheral Pulse Rate: 88/min Respiratory Rate: 16/min Systolic Blood Pressure: 88mmHg (<LLOW) Diastolic Blood Pressure: 60mmHg NIBP Mean: 69mmHg Actual Weight: 70.100kg(Converted to: 154lb 9oz) Weight Source: Standing scale Dosing Weight Clinic: 70.10kg CRISTIANO WINTERS LPN - 04/01/2010 10:26 BUYERS' AGENT General Info Accompanied By: Mother CRISTIANO WINTERS LPN - 04/01/2010 10:26 BUYERS' AGENT Subjective Pain Symptoms: Yes CRISTIANO WINTERS LPN - 04/01/2010 10:26 BUYERS' AGENT Pain Pain Assessment Grid Pain 1 Location: Epigastric Intensity: 8 CRISTIANO WINTERS LPN - 04/01/2010 10:26 BUYERS' AGENT Dependent Habits Tobacco Use/Currently Using: No Alcohol Use: No CRISTIANO WINTERS LPN - 04/01/2010 10:26 BUYERS' AGENT Caffeine Use Grid Caffeine Use: Current Type: Soft drinks Frequency: Weekly Amount: 1 CRISTIANO WINTERS LPN - 04/01/2010 10:26 BUYERS' AGENT Allergy Allergies (Active) NKA Estimated Onset Date: Unspecified ; Created By: BRUNO PENG; Reaction Status: Active ; Category: Drug ; Substance: NKA ; Type: Allergy ; Updated By: BRUNO PENG; Reviewed Date: 04/01/2010 10:26 BUYERS' AGENT Source: [facility] POWERCHART Document Id: [id number] BUYERS' AGENT!30 Miscellaneous - Chris Aguilera D.O. - 04/01/2010 9:55 AM CST [facility] April 08, 2010 Parents of Flaquito [address] [place] [address] Re: FLAQUITO TURNER [address] [place] [address] : 1995 MR#: [id number] Dear Marcia: This letter is in regards to [place] recent blood work. As you recall, when Flaquito was admitted overnight for abdominal pain her patient safety officer recommended obtaining blood work to rule out hepatitis A, Ghazala-Chambers virus, and cytomegalovirus. In addition, I did obtain a lab called ceruloplasmin to rule out a very rare cause of liver disease. All of this laboratory testing was normal. Ceruloplasmin level was 29.3 and normal is between 14 and 41. Hepatitis A test was negative, as was cytomegalovirus. Ghazala-Chambers testing showed only history of past infection but no acute infection. Please feel free to call if you have questions. Sincerely, Chris Aguilera D.O. Family Practice EW:marcie Doc#: [id number] Source: [facility] ISJDICTAPHONESYS Document Id: [id number] RS' AGENT documented in this encounter Plan of Treatment Upcoming Encounters Date Type Specialty Care Team Description 04/22/2022 Appointment Laboratory Medicine Meryl Julio M.D. [address] [place] [address] (Wo rk) 04/29/2022 Office Visit Endocrinology Meryl Julio M .D. [address] [place], [place] [address] (Wo rk) documented as of this encounter Visit Diagnoses Not on filedocumented in this encounter
--- OUTSIDE RECORDS SUMMARY | 2022-03-06 07:15 | XMS_ITS | Encounter Summary ---
:1995 Author Organization [facility] Address [address] [place] [address] Care Team Providers Name Role Phone Unavailable Primary Care Provider Unavailable Encounter Details Date Type Department Care Team Description 07/17/2010 Hospital Encounter [facility]X [facility] in [address] [place], [place] [phone] (Wo rk) Social History [...] How often do you attend orthodoxy or sabianist More than 4 time s [...] at Date Recorded Female 06/21/2021 12:52 PM CROSS TIE CUTTER documented as of this encounter Miscellaneous Notes Miscellaneous - Kelly Aguilera, D.O. - 07/19/2010 7:43 PM CST Results Notification Document Contains Addenda Addendum by LILI MONDRAGON RN on 23 July 2010 09:46:13 CROSS TIE CUTTER Letter sent. From: KELLY AGUILERA DO To: WOLF DEL ANGEL Sent: 07/19/2010 19:43:15 CROSS TIE CUTTER ! Show up: 07/19/2010 19:43:00 CROSS TIE CUTTER Subject: Results Notification Actions: Notify patient of results Due Date/Time: 07/19/2010 19:43:00 CROSS TIE CUTTER Source: [facility] POWERCHART Document Id: [id number] Electronically signed by Payton [facility] Supervisor [employer] [id number] at 10/26/2016 11:34 AM CDT documented in this encounter Plan of Treatment Upcoming Encounters Date Type Specialty Care Team Description 04/22/2022 Appointment Laboratory Medicine Meryl Julio M.D. [address] [place] [address] (Hector martin) 04/29/2022 Office Visit Endocrinology Meryl Julio M .D. [address] [place] [address] (Hector martin) documented as of this encounter Visit Diagnoses Not on filedocumented in this encounter
--- OUTSIDE RECORDS SUMMARY | 2022-03-06 07:15 | XMS_ITS | Encounter Summary ---
:[address] [facility] Address [address] [place] [address] Care Team Providers Name Role Phone Unavailable Primary Care Provider Unavailable Encounter Details Date Type Department Care Team Description 02/05/2010 Hospital Encounter HX [facility] Aguilera, in [address] [place] [address] (Wo rk) Social History Tobacco Use [...] How often do you attend synagogue or sikh More than 4 time s [...] at Date Recorded Female 06/21/2021 12:52 PM LEMON GROWER documented as of this encounter Progress Notes Chris Aguilera D.O. - 02/05/2010 4:18 PM CDT [facility] 02/05/2010 REASON FOR VISIT Consultation/possible referral to [facility]. HISTORY OF PRESENT ILLNESS Flaquito is a very pleasant 14-year-old female accompanied to the clinic today by her mom for a discussion regarding chronic abdominal pain. Flaquito was seen almost a year ago in clinic for right upper quadrant pain. At that time, an ultrasound was negative. Her pain then progressed to the right lower quadrant. A CT scan performed was negative for appendicitis or other inflammatory processes. She was then sent to [facility] gastroenterology for evaluation. In early April of 2009 she had a normal EGD and colonoscopy. She continued to have abdominal pain. They did repeat the CAT scan of her abdomen, which did show mesenteric adenitis. Because of this, they scheduled her for an appendectomy and possible cholecystectomy. Prior to the procedure, she had a HIDA scan, which revealed a borderline low ejection fraction of 29%. Because of this, on 08/22/2009, she underwent a lap appendectomy as well as a cholecystectomy. For two to three months, her pain completely resolved. However, over the past month or two, she again has developed pain. She states that this now is in her epigastric region, both the right and left sides. It occasionally radiates into her back as well. She describes it as a burning type sensation. She often is awakened in the middle of the night with severe pain. She did go to the [facility] emergency room on 12/19/2009. At that time, her liver enzymes were significantly elevated with an AST of 369 and an ALT of 370, fasting glucose of 105, and other laboratory evaluation was normal at that time. [facility] offered to transfer her to [facility]; however, [facility] again her liver enzymes were elevated, though they were down in the 100s. They had her follow up with gastroenterology. On 12/27/2009 she then followed up with gastroenterology. 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 Hepatitis testing was negative. They had performed an DAREK, which was positive. The member of the legislative council then obtained a PT/INR, C-reactive protein, sed rate, liver function panel, alpha-1 antitrypsin, smooth muscle antibody, and repeat DAREK. All blood work, including the liver function tests, was normal with the exception of a continuedpositive DAREK. He did send a letter on 12/31/2009, but they have had no followup with their member of the legislative council since that time. She has had two further emergency room visits, once in [place] and another at [facility]. All testing has been essentially normal. Mom is now wondering what to do at this point. She was unaware of the positive DAREK test until her most recent ER visit. There is no family history of autoimmune disorders or liver dysfunction. Mom is concerned about a possible BRACELET AND BROOCH MAKER problem. Mom herself is struggling with ovarian cysts and endometriosis. Flaquito now believes that her pain could be cyclic. The last two times that she has been seen have occurred right around her period. She does have regular periods every 28 days. She denies excessive bleeding or clotting with them. She is wondering if she can try oral contraceptives to help with possible endometriosis. Mom already does have a visit scheduled with her building mechanic in two days. Flaquito is not sexually active; has no history of STDs, PIDs or previous pregnancies. [facility] Past Medical History: Significant for chronic abdominal pain as noted above. She is a G0, P0 female.She has normal 28 to 30-day menstrual cycles that are mild to moderate in flow, lasting about five days in duration. She has a history of EGD, colonoscopy, abnormal HIDA scan, and subsequent laparoscopic appendectomy and cholecystectomy in July of 2009. Autoimmune serologies have been negative with the exception of the positive DAREK. Social History: Flaquito lives at home with her mom. There is exposure to secondhand smoke at home and in the car as well. She is a good student, obtaining As and Bs. She has no history of depression or mood disorder. Family History: Negative for cardiac disease, cancers, respiratory illnesses, bleeding disorders or reactions to anesthesia. Mom does have a history of ovarian cysts and endometriosis, as noted above. MEDICATIONS Oxycodone as needed. ALLERGIES No known drug allergies. EXAMINATION VITAL SIGNS: Blood pressure 110/70, pulse 72, respirations 20, temp is 37, weight is 70.9 kilograms. GENERAL: Flaquito is alert and oriented, and appears in no acute distress. She is very talkative offand on throughout the evaluation. Her pain described at 6/10 bilaterally. ABDOMEN: There is mild distractible pain in the upper epigastric region. There is no guarding or rebound. IMPRESSION/REPORT/PLAN Abdominal pain, generalized in nature, but mostly located to the epigastric region. PLAN: Would recommend referral to [place] [facility] department for a second opinion regarding her abdominal pain. Did have a long discussion with Flaquito and her mom about the possibility that this could be more related to stress or possibly irritable bowel type syndrome rather than a true organic cause. However, they would like to follow up simply because they feel that there has not been a lot of followthrough with [facility] in the [facility], and would like further answers or possible evaluation of a positive DAREK test. Although I did not feel it was necessary, mom would like to go ahead and proceed with evaluation by the OB-BRACELET AND BROOCH MAKER doctor. I did ask her to talk to me before undergoingany further testing or surgeries. Flaquito was very agreeable to this and does not really want to goto the appointment that her mom has already set up. They would like to try a round of oral contraceptives, and I think it is reasonable. I did place her on Odessa 1 tablet daily. Discussed that this does not protect against STDs. Discussed potential side effects of the medication. Flaquito really justwanted for me to prescribe the medication and not pursue further evaluation by the building mechanic. I did ask mom to sign releases and also obtain records from her upcoming appointment to bring with her to [facility]. Will help coordinate that appointment. Again, if the appointment is not efficacious in finding an underlying cause, I would like to see Flauqito and her mom back in clinic to discuss possible psychosocial stressors and treatment from that standpoint. They were in understanding and agreement with the plan. VISIT BASED ON TIME: 35 of 40 minutes was spent in direct [id number] counseling and coordination of care, obtaining outside records and synthesizing them. MIKE/marielle Doc#: [id number] cc: Electronically Signed By:CHRIS AGUILERA DO On 02/08/2010 01:05 pm Modified by:CHRIS AGUILERA DO On 02/08/2010 01:05 pm Source: [facility] ISJDICTAPHONESYS Document Id: [id number] documented in this encounter Miscellaneous Notes Miscellaneous - Chris Aguilera D.O. - 02/05/2010 5:20 PM CDT Ambulatory Depart Summary [address] [address] Visit Information Name: FLAQUITO TURNER Current Date: 02/05/2010 17:20:14 Primary Care Provider: CHRIS AGUILERA DO FLAQUITO TURNER has been given the following list of medications: Your Medications It is important to take your medications as directed. Use a pill box or chart to help remind you to take your medications. Please let your doctor or nurse know if you have problems taking your medications. Medication/Strength Dose Route Frequency Indications/Special Instructions/Comments drospirenone-ethinyl estradiol (Odessa oral tablet) 1 tab(s) Oral once a day oxycodone (oxycodone 5 mg oral capsule) 5 mg Oral every 6 hours as needed for pain Additional Information: Yes - Current list of reconciled medications is provided and explained to the patient and/or family, guardian/caregiver. Source: [facility] POWERCHART Document Id: [id number] Electronically signed by Payton [facility] Stationary Equipment Mechanic [id number] at 10/27/2016 1:04 AM CDT Miscellaneous - China Munoz C.MAnup - 02/05/2010 4:24 PM CDT Pediatric Engineer Technician Intake/History Pediatric Engineer Technician Intake/History Entered On: 02/05/2010 16:27 CDT Performed On: 02/05/2010 16:24 CDT by CHINA MUNOZ Intake Chief Complaint: consult/ referral to [facility] Temperature Core: 37.0C(Converted to: 98.6DegF) Peripheral Pulse Rate: 72bpm Respiratory Rate: 20br/min Systolic Blood Pressure: 110mmHg Diastolic Blood Pressure: 70mmHg NIBP Mean: 83mmHg Actual Weight: 70.900kg(Converted to: 156lb 5oz) Dosing Weight Clinic: 70.90kg CHINA MUNOZ - 02/05/2010 16:24 CDT General Info Accompanied By: Mother Information Given By: Patient, Mother CHINA MUNOZ - 02/05/2010 16:24 CDT Subjective Pain Symptoms: Yes CHINA MUNOZ - 02/05/2010 16:24 CDT Pain Pain Assessment Grid Pain 1 Location: Abdomen Laterality: Bilateral Intensity: 6 CHINA MUNOZ - 02/05/2010 16:24 CDT Dependent Habits Tobacco Use/Currently Using: No Alcohol Use: No CHINA MUNOZ - 02/05/2010 16:24 CDT Caffeine Use Grid Caffeine Use: Current Type: Soft drinks Frequency: Weekly Amount: 1 CHINA MUNOZ - 02/05/2010 16:24 CDT Allergy Allergies (Active) NKA Estimated Onset Date: Unspecified ; Created By: BRUNO PENG; Reaction Status: Active ; Category: Drug ; Substance: NKA ; Type: Allergy ; Updated By: BRUNO PENG; Reviewed Date: 02/05/2010 16:23 CDT Source: [facility] POWERCHART Document Id: [id number] CDT!31 documented in this encounter Plan of Treatment Upcoming Encounters Date Type Specialty Care Team Description 04/22/2022 Appointment Laboratory Medicine Meryl Julio M.D. [address] [place] [address] (Hector martin) 04/29/2022 Office Visit Endocrinology Meryl Julio M .D. [address] [place] [address] (Hector martin) documented as of this encounter Visit Diagnoses Not on filedocumented in this encounter
--- OUTSIDE RECORDS SUMMARY | 2022-03-06 07:15 | XMS_ITS | Encounter Summary ---
:1995 Author Organization [facility] Address [address] [place] [address] Care Team Providers Name Role Phone Unavailable Primary Care Provider Unavailable Encounter Details Date Type Department Care Team Description 10/16/2009 Hospital Encounter HX [facility] Aguilera, in [address] [place] [address] (Wo rk) Social History Tobacco Use [...] How often do you attend presybeterian or yazidism More than 4 time s [...] at Date Recorded Female 06/21/2021 12:52 PM TECHNICAL SERVICE REP documented as of this encounter Progress Notes Chris Aguilera D.O. - 10/16/2009 2:55 PM CDT [facility] 10/16/2009 REASON FOR VISIT Ear pain and wart. HISTORY OF PRESENT ILLNESS Ramírez is a pleasant 14-year-old female accompanied to the clinic today by her mom for evaluation of cold symptoms and wart on her hand and foot. Ramírez reports that for the last three days she has had symptoms of nasal congestion, cough, and ear pain and pressure. Last night the pain seemed to worsen more on the left than the right but overall bilaterally. She has denied any drainage from her ear and denied any fevers or chills. She has just been feeling generally achy and unwell. She has missed school today and yesterday. She has had no nausea, vomiting, or stomach pain. She denies any difficulty with urination, dysuria, or hematuria. Additionally Ramírez would like me to evaluate a couple of warts that she has. One is painful on the bottom of her right foot on the ball of her foot. She has tried hqvq-dwh-yuqgxii remedies and occlusive dressings without any improvement. This wart has been there for many, many months. The second wart issmaller and on her right index finger. She also has tried frbq-pwf-swxnunm remedies without improvement. MEDICATIONS As listed in [employer]. ALLERGIES NO KNOWN DRUG ALLERGIES. EXAMINATION VITAL SIGNS: Temp is 37.1. Pulse 74. Respirations 22. Weight 70.3 kilograms. GENERAL: This is a well-appearing 14-year-old female in no acute distress. HEENT: Head is normocephalic, atraumatic. Pupils are equally reactive to direct and consensual light. Nose reveals mild nasal congestion and clear rhinorrhea. Mucous membranes are moist. There is postnasal drainage noted with mild cobblestoning of the posterior pharynx. Neck shows no lymphadenopathy. CARDIOVASCULAR: Heart is regular rate and rhythm without murmurs, gallops, rubs. RESPIRATORY: Lungs are clear to auscultation bilaterally without wheezes, rhonchi, or rales. SKIN: Evaluation of the skin reveals a 3 mm in diameter raised flat wart on the volar aspect of her right index finger near the proximal inner phalangeal joint. The other wart is noted on the plantar aspect of her right foot approximately 7 mm in diameter. Both were swabbed with alcohol and the wart on her foot was pared down using a 15 blade scalpel. Then in a freeze/thaw/freeze method cryotherapy was applied to both warts. She tolerated procedure well and there were no complications. IMPRESSION/REPORT/PLAN 1. URI (upper respiratory infection). Would recommend supportive care including nasal saline washes twice daily, Tylenol or ibuprofen as-needed for body aches. Warning signs and followup care instructions were given. 2. Plantar warts with cryotherapy to the 7 mm and 3 mm lesions. Followup as- needed. Certainly may need repeat freezing in 10 to 14 days. Mom was in understanding and agreement with the plan. MIKE/ita Doc#: [id number] cc: Electronically Signed By:CHRIS AGUILERA DO On 10/18/2009 09:22 AM Source: [facility] ISJDICTAPHONESYS Document Id: [id number] documented in this encounter Miscellaneous Notes Miscellaneous - Chris Aguilera D.O. - 10/16/2009 3:21 PM CDT Ambulatory Depart Summary [address] [address] Visit Information Name: FLAQUITO TURNER Current Date: 10/16/2009 15:21:31 Primary Care Provider: CHRIS AGUILERA DO FLAQUITO TURNER MARTIN has been given the following list of medications: Your Medications It is important to take your medications as directed. Use a pill box or chart to help remind you to take your medications. Please let your doctor or nurse know if you have problems taking your medications. Medication/Strength Dose Route Frequency Indications/Special Instructions/Comments sodium chloride nasal (Nasal Saline 0.65% solution) See Instructions nasal congestion / 1 application twice day ibuprofen (ibuprofen 200 mg oral tablet) 2 tab(s) Oral every 4 hours as needed for Pain / Fever Takewith food Additional Information: Yes - Current list of reconciled medications is provided and explained to the patient and/or family, guardian/caregiver. Source: [facility] POWERCHART Document Id: [id number] Electronically signed by Payton [facility] Solar Site Assessment Specialist [id number] at 10/27/2016 7:03 AM CDT Miscellaneous - China Munoz, C.M.A. - 10/16/2009 3:08 PM CDT Pediatric Traffic Control Technician Intake/History Pediatric Traffic Control Technician Intake/History Entered On: 10/16/2009 15:11 CDT Performed On: 10/16/2009 15:08 CDT by CHINA MUNOZ Intake Chief Complaint: sick since Thursday cold, cough and ear pain and pressure Temperature Core: 37.1DegC(Converted to: 98.8DegF) Peripheral Pulse Rate: 74bpm Respiratory Rate: 22br/min (HI) Actual Weight: 70.300kg(Converted to: 155lb 0oz, 154.985lb, 2,479.760oz) Dosing Weight Clinic: 70.30kg CHINA MUNOZ - 10/16/2009 15:08 CDT Subjective Pain Symptoms: Yes CHINA MUNOZ - 10/16/2009 15:08 CDT Pain Pain Assessment Grid Pain 1 Pain 2 Location: Ear Other: throat Laterality: Bilateral Bilateral Intensity: 6 5 CHINA MUNOZ - 10/16/2009 15:08 CDT CHINA MUNOZ - 10/16/2009 15:08 CDT Dependent Habits Tobacco Use/Currently Using: No Alcohol Use: No CHINA MUNOZ - 10/16/2009 15:08 CDT Caffeine Use Grid Caffeine Use: Current Type: Soft drinks Frequency: Weekly Amount: 1 CHINA MUNOZ - 10/16/2009 15:08 CDT Allergy Allergies (Active) NKA Estimated Onset Date: Unspecified ; Created By: BRUNO PENG; Reaction Status: Active ; Category: Drug ; Substance: NKA ; Type: Allergy ; Updated By: BRUNO PENG; Reviewed Date: 10/16/2009 15:07 CDT [facility] Document Id: [id number]!29 documented in this encounter Plan of Treatment Upcoming Encounters Date Type Specialty Care Team Description 04/22/2022 Appointment Laboratory Medicine Meryl Julio M.D. [address] [place] [address] (Wo veronica) 04/29/2022 Office Visit Endocrinology Meryl Julio M .D. [address] [place] [address] (Hector martin) documented as of this encounter Visit Diagnoses Not on filedocumented in this encounter
--- OUTSIDE RECORDS SUMMARY | 2022-03-06 07:15 | XMS_ITS | Encounter Summary ---
:[address] [facility] Address [address] [place] [address] Care Team Providers Name Role Phone Unavailable Primary Care Provider Unavailable Encounter Details Date Type Department Care Team Description 02/28/2009 Hospital Encounter HX [facility] Eric Trejo in [address] [place] [address] (Wo rk) Social History Tobacco Use [...] How often do you attend scientologist or judaism More than 4 time s [...] at Date Recorded Female 06/21/2021 12:52 PM GARMENT MENDER documented as of this encounter Plan of Treatment Upcoming Encounters Date Type Specialty Care Team Description 04/22/2022 Appointment Laboratory Medicine Meryl Julio M.D. [address] [place], [place] [address] (Hector rk) 04/29/2022 Office Visit Endocrinology Meryl Julio M .D. [address] [place], [place] [address] (Hector rk) documented as of this encounter Procedures Procedure Name Priority Date/Time Associated Diagnosis Comme nts US ABDOMEN COMPLETE Routine 02/28/2009 5:41 PM Re sults for this CDT procedure are i n the results section. documented in this encounter Results US Abdomen Complete (02/28/2009 5:41 PM CDT) Anatomical Region Laterality Modality Abdomen N/A Ultrasound Specimen (Source) Anatomical Collection Method Collection Time Re ceived Time Location / / Volume Laterality 02/28/2009 5:41 PM CDT Impressions 03/01/2009 8:02 AM CDT No sonographic evidence for gallbladder or biliary disease. Narrative 03/01/2009 8:02 AM CDT Comparison: None. ?? FINDINGS: There is no intra-abdominal fr ee fluid. ?? Liver: There is a normal echogenicity th roughout the liver parenchyma. ?? Pancreas: The visualized portions of the pancreas appear within normal limits. The tail is not well observed. ?? Biliary system: No stones or intralumina l filling defects are identified in the gallbladder. There is no pericholecystic fluid. There is no sonographic Callejas's sign. T he common duct measures 2 mm in diameter. ?? Kidneys: The right kidney measures 10 cm in length. No right renal masses or stones are identified. The lef t kidney was not studied. The spleen was not imaged. ?? The visualized portions of the IVC and p ortal vein are patent. The proximal aorta within the abdomen is pat ent and demonstrates a normal caliber. ?? Procedure Note eJt Spears M.D. / Provider, Eagle brower M.D. - 10/27/2016 Comparison: None. FINDINGS: There is no intra-abdominal fr ee fluid. Liver: There is a normal echogenicity th roughout the liver parenchyma. Pancreas: The visualized portions of the pancreas appear within normal limits. The tail is not well observed. Biliary system: No stones or intralumina l filling defects are identified in the gallbladder. There is no pericholecystic fluid. There is no sonographic Callejas's sign. T he common duct measures 2 mm in diameter. Kidneys: The right kidney measures 10 cm in length. No right renal masses or stones are identified. The lef t kidney was not studied. The spleen was not imaged. The visualized portions of the IVC and p ortal vein are patent. The proximal aorta within the abdomen is pat ent and demonstrates a normal caliber. IMPRESSION: No sonographic evidence for gallbladder or biliary disease. Historical Provider IMG US PROCEDURES documented in this encounter Visit Diagnoses Not on filedocumented in this encounter
--- OUTSIDE RECORDS SUMMARY | 2022-03-06 07:15 | XMS_ITS | Encounter Summary ---
:1995 Author Organization [facility] Address [address] [place] [address] Care Team Providers Name Role Phone Unavailable Primary Care Provider Unavailable Encounter Details Date Type Department Care Team Description 07/12/2010 Hospital Encounter HX [facility] L[facility] Aguilera, in C, D.O. 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 - 07/12/2010 3:13 PM CST [facility] 07/12/2010 REASON FOR VISIT Refreeze warts. Discuss abdominal pain. HISTORY OF PRESENT ILLNESS Ramírez is a very pleasant, 14-year-old who presents to the clinic today for refreezing of two warts. These were frozen last week. One is on her right index finger, and the other is on her right plantar surface of her foot. She notes that they both responded slightly to treatment, but there is still some l ingering wart noted. She denies any irritation or pain. Ramírez does have a history of chronic abdominal pain. She has been evaluated thoroughly at [facility].I did receive a letter at the beginning of May requesting stool studies to be performed. It is noted that recent paperwork indicates positive C. difficile colitis, and she was treated with 14 days of Flagyl. She has yet to turn in her other stool samples, and she will be referred to the laboratoryto do this. She notes that she is scheduled to go to [facility] with her [place] class in July and is wondering if there needs to be a plan for if her plan recurs. I think that it is important to establish the fact that she not longer has C. difficile colitis and also create a plan for pain and travel ers diarrhea if this were to occur. She states that the pain does occur off and on, but she denies any fevers, chills, diarrhea, hematochezia, or melena. She has had no nausea or vomiting. She generally has been doing quite well. MEDICATIONS As listed in [employer]. ALLERGIES No known drug allergies. EXAMINATION VITAL SIGNS: Blood pressure 90/60. Pulse 12. Respirations 18. Weight 71.8 kilograms. GENERAL: This is a well-appearing, 14-year-old in no acute distress. Evaluation of her right index finger reveals a small, 2 mm in diameter wart. This was pared down using a #15 blade scalpel. After swabbing the area with alcohol in a freeze/thaw/freeze method, cryotherapy was applied. On the sole of her right foot, large, 5 mm in diameter plantar wart is noted with surrounding callus. This was also pared down and swabbed with alcohol. In a freeze/thaw/freeze method for at least 20 seconds each time cryotherapy was applied. IMPRESSION/REPORT/PLAN 1. Plantar warts with refreezing, as noted above. This is included in the initial global. 2. Abdominal pain, most recently from C. difficile colitis. She was referred to lab to pickup stool samples, and she will return in 10 to 14 days for a follow- up. We will discuss a plan for her travelsat that time. MIKE/nadiajma Doc#: [id number] cc: Electronically Signed By: CHRIS AGUILERA DO On: 07/16/2010 07:58 Source: [facility] ISJDICTAPHONESYS Document Id: [id number] ARCH METHODS INSTRUCTOR documented in this encounter Miscellaneous Notes Miscellaneous - Emeli Martin, C.M.A. - 07/12/2010 3:35 PM CST Adult Instruction Librarian Intake/History Adult Instruction Librarian Intake/History Entered On: 07/12/2010 15:38 RESEARCH METHODS INSTRUCTOR Performed On: 07/12/2010 15:35 RESEARCH METHODS INSTRUCTOR by EMELI MARTIN Intake Chief Complaint: refreeze warts, right index finger, underneath right side . Peripheral Pulse Rate: 8/min (<LLOW) Respiratory Rate: 12/min (LOW) Systolic Blood Pressure: 90mmHg (LOW) Diastolic Blood Pressure: 60mmHg NIBP Mean: 70mmHg BP Location: Left upper extremity Heart Rhythm: Regular Oxygen Therapy: Room air Actual Weight: 71.800kg(Converted to: 158lb 5oz) Weight Source: Standing scale Dosing Weight Clinic: 71.80kg EMELI MARTIN - 07/12/2010 15:35 RESEARCH METHODS INSTRUCTOR General Info Information Given By: Patient Preferred Communication Mode: Verbal Languages: Vietnamese MARIO EMELI Steward - 07/12/2010 15:35 RESEARCH METHODS INSTRUCTOR Subjective Pain Symptoms: No MARIO, EMELI Steward - 07/12/2010 15:35 RESEARCH METHODS INSTRUCTOR Dependent Habits Tobacco Use/Currently Using: No Alcohol Use: No EMELI MARTIN - 07/12/2010 15:35 RESEARCH METHODS INSTRUCTOR Caffeine Use Grid Caffeine Use: Current Type: Soft drinks Frequency: Weekly Amount: 1 MARIO, EMELI Steward - 07/12/2010 15:35 RESEARCH METHODS INSTRUCTOR Allergies Allergies (Active) NKA Estimated Onset Date: Unspecified ; Created By: BRUNO PENG; Reaction Status: Active ; Category: Drug ; Substance: NKA ; Type: Allergy ; Updated By: BRUNO PENG; Reviewed Date: 07/12/2010 15:34 RESEARCH METHODS INSTRUCTOR Source: [facility] POWERCHART Document Id: [id number] RESEARCH METHODS INSTRUCTOR!29 ARCH METHODS INSTRUCTOR documented in this encounter Plan of Treatment Upcoming Encounters Date Type Specialty Care Team Description 04/22/2022 Appointment Laboratory Medicine Meryl Julio M.D. [address] [place] [address] (Hector martin) 04/29/2022 Office Visit Endocrinology Meryl Julio M .D. [address] [place] [address] (Hector martin) documented as of this encounter Visit Diagnoses Not on filedocumented in this encounter
--- OUTSIDE RECORDS SUMMARY | 2022-03-06 07:15 | XMS_ITS | Encounter Summary ---
:1995 Author Organization [facility] Address [address] [place] [address] Care Team Providers Name Role Phone Unavailable Primary Care Provider Unavailable Encounter Details Date Type Department Care Team Description 08/17/2009 Hospital Encounter HX [facility] LEN[facility]X Aguilera, in C, D.O. 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 HISTORY OF PRESENT ILLNESS Ian is a pleasant 13-year-old white female accompanied to the clinic today by her mom for a preoperative exam. She has been struggling with epigastric pain ongoing for the last 8 months. Over the last one to four weeks, she has had worsening of her pain. It is not radiating to her shoulders and back. Last week she actually had to go to the emergency room for her pain. She has been undergoing a verythorough evaluation by Peds Gastroenterology at [facility]. She is scheduled for a laparoscopic cholecystectomy and appendectomy by Dr. Wray to be performed on August 22 at 10 a.m. in [place]. She has not had any nausea, vomiting, diarrhea, or fevers. She has otherwise had an essentiallynormal evaluation, including a normal EGD, colonoscopy, and ultrasound. She did have a HIDA scan earlier this week of which the results are pending. [facility] Past Medical History: Significant for epigastric pain as noted above. She also has a history of atypical chest pain off and on which has been apparently previously evaluated by a heart monitor, an feltto be possibly costochondritis. She has no history of exposures or blood transfusions. She eats a wide variety of foods and does not adhere to a specific diet. Past Surgical History: Significant for colonoscopy and EGD. Family History: Her mother does have gallbladder disease. Fathers history is unknown. There is no family history of problems with anesthesia or bleeding disorders. Social History: Ian lives with her mom. She has been missing a lot of school. due to pain, but is getting good grades in school. She is exposed to second-hand smoke, but does not smoke or drink alcohol. MEDICATIONS Vicodin 5/500 one to two tablets every 6 hours as needed for pain. This was prescribed in the ER about a week ago. She is requesting a refill to get her through to her surgery in a week. ALLERGIES No known drug allergies. ROS As noted in history of present illness and positive for clinching-type chest pain consistent with possible costochondritis and right upper quadrant and epigastric pain. Other complete review of systemsincluding constitutional respiratory, neuro, urinary tract, endocrine, development, vision, hearing, musculoskeletal, and skin are negative. Her last menstrual period was July 23 through July 28 and she does have regular periods. EXAMINATION VITAL SIGNS: Temperature 36.8, pulse 68, respirations 18, blood pressure 110/70, height is 167 cm, weight is 70.4 kg, BMI is 25. GENERAL: This is a well-appearing 13-year-old white female in no obvious distress. HEENT: Head - Normocephalic, atraumatic. Eyes - Pupils are equal and react to direct and consensual light. There is no conjunctival drainage. Bilateral tympanic membranes are pearly francisco with a good light reflex. Mouth - Mucous membranes are moist. Teeth are in good repair. NECK: There is no lymphadenopathy or thyroid enlargement. HEART: Regular rate and rhythm, without murmurs, rubs, or gallops. LUNGS: Clear to auscultation bilaterally without wheezes, rhonchi, or rales. ABDOMEN: Soft, nontender. Bowel sounds are heard throughout. There is no guarding or rebound. No hepatosplenomegaly is appreciated. EXTREMITIES: Without edema. Peripheral pulses are symmetrical and appropriate in bilateral upper andlower extremities. SKIN: No unusual rashes and capillary refill is less than 2 seconds. Reflexes are +2 out of 4 in biceps, patellar, and Achilles tendons. LABORATORY A CBC shows a hemoglobin of 13.9, white count 6.1, and platelet count of 229,000. A urine test was done yesterday up at [facility] and was negative. IMPRESSION/REPORT/PLAN 1. Right upper quadrant/epigastric pain. 2. preop exam PLAN: Ian has no clinical predictors and will be undergoing an intermediate risk surgery. I recommend proceeding with the surgery as planned and she is medically optimized for surgery. I did give her a refill of her Vicodin. I instructed her that she should not take any aspirin or ibuprofen products within 7 days of her surgery. They were given a copy of the history and physical form and this will also be faxed up to [facility] at [phone]. MIKE/castillo Doc#: [id number] cc: Electronically Signed By:CHRIS AGUILERA DO On 08/23/2009 08:00 am Modified by:CHRIS AGUILERA DO On 08/23/2009 08:00 am Source: [facility] ISJDICTAPHONESYS Document Id: [id number] documented in this encounter Miscellaneous Notes Miscellaneous - China Munoz, C.M.ASebastian - 08/17/2009 9:54 AM CDT Pediatric Exhibit Designer Intake/History Pediatric Exhibit Designer Intake/History Entered On: 08/17/2009 9:58 CDT Performed On: 08/17/2009 9:54 CDT by CHINA MUNOZ Intake Chief Complaint: pre op Temperature Core: 36.8DegC(Converted to: 98.2DegF) Peripheral Pulse Rate: 68bpm Respiratory Rate: 18br/min Systolic Blood Pressure: 110mmHg Diastolic Blood Pressure: 70mmHg NIBP Mean: 83mmHg Height: 167.00cm(Converted to: 5ft 6in, 5.48ft, 65.75in) Actual Weight: 70.400kg(Converted to: 155lb 3oz, 155.205lb, 2,483.287oz) Clinic BSA: 1.81 Body Mass Index: 25kg/m2 Dosing Weight Clinic: 70.40kg CHINA MUNOZ - 08/17/2009 9:54 CDT Subjective Pain Symptoms: Yes CHINA MUNOZ - 08/17/2009 9:54 CDT Pain Pain Assessment Grid Pain 1 Location: Abdomen Laterality: Bilateral Intensity: 8 CHINA MUNOZ - 08/17/2009 9:54 CDT Dependent Habits Tobacco Use/Currently Using: No Alcohol Use: No CHINA MUNOZ - 08/17/2009 9:54 CDT Allergy Allergies (Active) NKA Estimated Onset Date: Unspecified ; Created By: BRUNO PENG; Reaction Status: Active ; Category: Drug ; Substance: NKA ; Type: Allergy ; Updated By: RBUNO PENG; Reviewed Date: 08/17/2009 9:54 CDT Source: [facility] Lightwire Document Id: [id number]!25 documented in this encounter Plan of Treatment Upcoming Encounters Date Type Specialty Care Team Description 04/22/2022 Appointment Laboratory Medicine Meryl Julio M.D. [address] [place] [address] (Hector martin) 04/29/2022 Office Visit Endocrinology Meryl Julio M .D. [address] [place] [address] (Hector martin) documented as of this encounter Visit Diagnoses Not on filedocumented in this encounter
--- OUTSIDE RECORDS SUMMARY | 2022-03-06 07:15 | XMS_ITS | Encounter Summary ---
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 [address], [place] [address] (Wo rk) 04/29/2022 Office Visit Endocrinology Meryl Julio M .D. [address], [place] [address] (Wo rk) documented as of this encounter Procedures Procedure Name Priority Date/Time Associated Diagnosis Comme nts MR ABDOMEN MRCP Routine 01/01/2010 9:59 AM Result s for this WITHOUT IV CONTRAST CDT procedur e are in the results section. documented in this encounter Results MR Abdomen MRCP without IV Contrast (01/01/2010 9:59 AM CDT) Anatomical Region Laterality Modality Abdomen N/A Magnetic Resonance Specimen (Source) Anatomical Collection Method Collection Time Re ceived Time Location / / Volume Laterality 01/01/2010 9:59 AM CDT Impressions 01/01/2010 11:38 AM CDT Normal post cholecystectomy MRCP examina tion. Narrative 01/01/2010 11:38 AM CDT Magnetic resonance cholangiogram ?? Technique: Axial T1/T2 weighted images o btained with coronal 2D FIESTA and heavily T2-weighted MRCP images with reconstructions. ?? COMPARISON: CT abdomen 08/07/2009 and ult rasound abdomen 02/28/2009. ?? FINDINGS: ?? Intra and extrahepatic bile ducts are no rmal caliber with smooth contour. No focal stricture, nodularity or diverticulum. Normal tapering of the common bile duct to the ampulla. Gallbladder not visualized compatible wi th prior cholecystectomy (August 2009). Liver, spleen, pancreas, adrenal glands and kidneys have a normal noncontrast enhanced appearance. No ascites or upper abdominal lymphadeno timoteo. ?? Procedure Note Juaquin Dawkins M.D. / Provider, Histo rical, M.D. - 10/16/2016 Magnetic resonance cholangiogram Technique: Axial T1/T2 weighted images o btained with coronal 2D FIESTA and heavily T2-weighted MRCP images with reconstructions. COMPARISON: CT abdomen 08/07/2009 and ult rasound abdomen 02/28/2009. FINDINGS: Intra and extrahepatic bile ducts are no rmal caliber with smooth contour. No focal stricture, nodularity or diverticulum. Normal tapering of the common bile duct to the ampulla. Gallbladder not visualized compatible wi th prior cholecystectomy (August 2009). Liver, spleen, pancreas, adrenal glands and kidneys have a normal noncontrast enhanced appearance. No ascites or upper abdominal lymphadeno timoteo. IMPRESSION: Normal post cholecystectomy MRCP examina tion. Natacha Machuca(R), RSebastianTSebastian(R)(MR) IMG MRI PROCEDURE S documented in this encounter Visit Diagnoses Not on filedocumented in this encounter
--- OUTSIDE RECORDS SUMMARY | 2022-03-06 07:15 | XMS_ITS | Encounter Summary ---
:1995 Author Organization [facility] Address [address] [place] [address] Care Team Providers Name Role Phone Unavailable Primary Care Provider Unavailable Encounter Details Date Type Department Care Team Description 05/23/2010 Hospital Encounter HX [facility] Kadi Byrnes, L.I.C.S.W. 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 [address] [place] [address] (Wo rk) 04/29/2022 Office Visit Endocrinology Meryl Julio M .D. [address] [place] [address] (Wo rk) documented as of this encounter Visit Diagnoses Not on filedocumented in this encounter
--- OUTSIDE RECORDS SUMMARY | 2022-03-06 07:15 | XMS_ITS | Encounter Summary ---
:1995 Author Organization [facility] Address [address] [place] [address] Care Team Providers Name Role Phone Unavailable Primary Care Provider Unavailable Encounter Details Date Type Department Care Team Description 12/19/2009 Hospital Encounter HX [facility], M.D. Social History Tobacco Use Types Packs/Day [...] How often do you attend baptism or islam More than 4 time s [...] at Date Recorded Female 06/21/2021 12:52 PM TOSSER documented as of this encounter Discharge Summaries Mary Alvarez R.N. - 12/19/2009 3:20 AM CDT ED Depart Summary [facility] Emergency Department Clinical Discharge Summary PERSON INFORMATION Name FLAQUITO CARDENAS Age 14 Years 1995 12:00 AM Sex Female Language Turkish PCP CHRIS TOBIAS DO Marital Status Single Visit Id Visit Reason Abdominal pain; Abdominal pain; UPPER ABDOMINAL & BACK PAIN Specialty Enc Type Emergency Med Service Emergency Medicine Referred by Neal LOPEZ ED Discharge 12/19/2009 3:20 AM Tracking Id [id number] Checkout 12/19/2009 3:20 AM Checkin 12/19/2009 12:26 AM Acuity 3 -Urgent Dispo Type Discharged to Home or Self Care Arrival 12/19/2009 12:26 AM Reg Status Complete LOS 000 02:54 Address: [address] [place] [address] [phone] Comment: PROVIDER INFORMATION Provider Role Assigned Unassigned MARY ALVAREZ INDUSTRIAL REFRIGERATION MECHANIC Nurse 12/19/2009 12:40 AM JOHN RAY MD ED Provider 12/19/2009 1:08 AM DIAGNOSIS Abdominal pain 789.00; Elevated Liver Enzymes Comment: PATIENT EDUCATION INFORMATION Instructions: ABDOMINAL PAIN, Unknown Cause, (Female) Follow up: With: Address: When: Please follow up with your Ped[facility] GI tomorrow Within As needed Comments: With: Address: When: CHRIS TOBIAS [address] [place] [address] [phone] phone, fixed, business (1) Within As needed Comments: Source: [facility] POWERCHART Document Id: [id number] Electronically signed by Payton, [facility] Retail Event And Sales Assistant [id number] at 10/27/2016 3:02 AM CDT Mary Alvarez R.N. - 12/19/2009 3:20 AM CDT ED Discharge Instructions [address] [address] Name: FLAQUITO CARDENAS Date of : 1995 12:00 AM Visit Date: 12/19/2009 12:26 AM FIN: Current Date: 12/19/2009 03:20:17 Address: [address] [place] [address] [phone] Primary Care Provider: CHRIS TOBIAS DO IMPORTANT: [facility] would like to thank you for allowing us to assist you with your healthcare needs. We examined and treated you today on an emergency basis only. This was not a substitute for, or an effort to provide, complete medical care. If you had any cultures, special tests, or x-rays performed during your visit, your final reports will be reviewed and we will contact you if there are any new or significant findings other than what was discussed with you during your visit today. You have received patient education materials and information regarding your injury/ill ness. Follow these instructions and take all medications as prescribed. If you, ( FLAQUITO CARDENAS ), have any problems that we have not discussed, please call or visit your doctor right away. If you cannot reach your doctor, return to the Emergency Department. Follow-Up Instructions: With: Address: When: Please follow up with your Pedi GI tomorrow Within As needed Comments: With: Address: When: CHRIS TOBIAS [address] [place] [phone] phone, fixed, ProxToMe (1) Within As needed Comments: Patient Education Materials: ABDOMINAL PAIN, UNCERTAIN CAUSE [Female] Based on your visit today, the exact cause of your abdominal (stomach) pain is not certain. Your condition does not seem serious now; however, the signs of a serious problem may take more time to appear. Therefore, it is important for you to watch for any new symptoms or worsening of your condition. HOME CARE: 1) Rest until you are feeling better. 2) Eat a light diet with foods that are easy to digest. Avoid fried or fatty foods, meat, alcohol and spicy foods, until you are feeling better. 3) Watch for the warning signs below. FOLLOW UP with your doctor or this facility as instructed, or if your pain does not begin to improvein the next 24 hours. [NOTE: If you had an X-ray, CT scan, ultrasound, or EKG (cardiogram), it will be reviewed by a specialist. You will be notified of any new findings that may affect your care.] RETURN PROMPTLY or contact your doctor if any of the following new symptoms occur: -- Pain gets worse or moves to the right lower abdomen -- Vomiting or diarrhea -- Fever over 100.0?? F (37.8?? C) oral -- Blood in vomit or bowel movements (dark red or black color) -- Jaundice (yellow color of eyes and skin) -- Weakness, dizziness or fainting -- Painful urination or blood in urine -- Chest, arm, back, neck or jaw pain -- Cough, trouble breathing, colored or bloody sputum -- Unexpected or heavy vaginal bleeding Discharge Prescriptions & Home Medications: Medication/Strength Dose Route Frequency Indications/Special Instructions/Comments oxycodone (oxycodone 5 mg oral capsule) 5 mg Oral every 6 hours as needed for pain Attention: If you have any medications at home that are not on this list, please contact your provider for clarification. Patient Visit Summary: FLAQUITO CARDENAS has been given the following list of patient education materials, prescriptions, Home Medications and follow-up instructions: Follow-up Instructions: With: Address: When: Please follow up with your [facility] tomorrow Within As needed Comments: With: Address: When: CHRIS JATINDER [address] [place] [phone] phone, Fix8 (1) Within As needed Comments: Patient Education Materials: ABDOMINAL PAIN, Unknown Cause, (Female) Discharge Prescriptions & Home Medications: Medication/Strength Dose Route Frequency Indications/Special Instructions/Comments oxycodone (oxycodone 5 mg oral capsule) 5 mg Oral every 6 hours as needed for pain Attention: If you have any medications at home that are not on this list, please contact your provider for clarification. Medication Reconciliation: Reconciliation is a process of identifying the most accurate list of all medications a patient is taking - including name, dosage, frequency, and route - and using this list to provide to the patient information about how to take those medications. FLAQUITO CARDENAS or jeannette has reviewed the home [...] suggestions. Please follow the instructions above carefully. I, FLAQUITO CARDENAS , or responsible constitution party have received this information and my questions havebeen answered. I have discussed any challenges I see with this plan with the nurse or physician. Patient Signature or Responsible Democrat Date/Time Provider Signature Date/Time Source: [facility] POWERCHART Document Id: [id number] Electronically signed by Payton [facility] Retail Event And Sales Assistant [id number] at 10/27/2016 3:02 AM CDT documented in this encounter Nursing Notes Mary Alvarez R.N. - 12/19/2009 2:49 AM CDT ED Pain Assessment ED Pain Assessment Entered On: 12/19/2009 2:49 CDT Performed On: 12/19/2009 2:49 CDT by MARY ALVAREZ RN Pain Pain Assessment Grid Pain 1 Location: Abdomen Laterality: Bilateral Intensity: 7 MARY ALVAREZ RN - 12/19/2009 2:49 CDT Source: [facility] [employer] Document Id: [id number] CDT!7 Mary Alvarez R.N. - 12/19/2009 12:50 AM CDT ED Primary Assessment ED Primary Assessment Entered On: 12/19/2009 0:51 CDT Performed On: 12/19/2009 0:50 CDT by MARY ALVAREZ RN Reason For Visit Diagnoses(Active) Abdominal pain Date: 12/19/2009 0:34 CDT ; Diagnosis Type: Reason For Visit ; Confirmation: Complaint of ; Classification: Medical ; Clinical Service: Emergency medicine ; Code: PNED ; Probability: 0 ;Diagnosis Code: [id number] Triage Mode of Arrival ED: Private vehicle, Ambulatory Track: Medical Pain Symptoms: Yes MARY ALVAREZ RN - 12/19/2009 0:50 CDT Allergy Allergies (Active) NKA Estimated Onset Date: Unspecified ; Created By: BRUNO PENG; Reaction Status: Active ; Category: Drug ; Substance: NKA ; Type: Allergy ; Updated By: BRUNO PENG; Reviewed Date: 12/19/2009 0:35 CDT Respiratory Airway: Patent Respirations: Unlabored Respiratory Pattern: Regular MARY ALVAREZ RN - 12/19/2009 0:50 CDT Cardiovascular Heart Rhythm: Regular Skin Color: Normal for ethnicity Skin Description: Dry Skin Temperature: Warm MARY ALVAREZ RN - 12/19/2009 0:50 CDT Neurological Level of Consciousness: Alert Orientation: Oriented x 3 Characteristics of Speech: Clear MARY ALVAREZ RN - 12/19/2009 0:50 CDT ED Psychosocial Affect/Behavior: Calm, Cooperative Domestic Concerns: None MARY ALVAREZ DAVI - 12/19/2009 0:50 CDT Gastrointestinal Nutrition ED: Adequate GI Detailed Assessment: Yes MARY ALVAREZ DAVI - 12/19/2009 0:50 CDT GI Detailed GI Patient Stated Symptoms: Abdominal pain Bowel Movement Last Date: 12/18/2009 CDT Abdomen Palpation: Soft, Tender Tenderness: Left upper quadrant, Right upper quadrant MARY ALVAREZ DAVI - 12/19/2009 0:50 CDT Bowel Sounds Grid LUQ: Normoactive RUQ: Normoactive LLQ: Normoactive RLQ: Normoactive MARY ALVAREZ RN - 12/19/2009 0:50 CDT GI Note: c/o upper abd pain starting yesterday. pain radiates to upper back. pain became worse today. c/o constant pain with occ increase in sharpness. KIM MARY TOMLINSON - 12/19/2009 0:50 CDT /OB Assessment Note: denies urinary symptoms. DAVIDSON ALVAREZLOR TOMLINSON - 12/19/2009 0:50 CDT Musculoskeletal Fall Prevention Education Provided: BABS ALVAREZDAVIDSONMARY RN - 12/19/2009 0:50 CDT Peripheral IV Peripheral IV Assess/Intervention Grid Peripheral IV #1 IV Activity: Start Number of Attempts: 1 Date of Insertion: 12/19/2009 CDT IV Site: Hand Laterality: Left Catheter Size: 20 Catheter Type: Over the needle KIMDAVIDSONMARY RN - 12/19/2009 0:50 CDT Source: [employer] Document Id: [id number] CDT!49 documented in this encounter ED Notes Mary Alvarez R.N. - 12/19/2009 3:19 AM CDT ED Disposition Summary ED Disposition Summary Entered On: 12/19/2009 3:19 CDT Performed On: 12/19/2009 3:19 CDT by MARY ALVAREZ RN ED Disposition Summary Accompanied By: Mother Mode of Discharge: Ambulatory Discharge From ED With: Home Med List Patient Status at Discharge from ED: Improved MARY ALVAREZ RN - 12/19/2009 3:19 CDT Source: [employer] Document Id: [id number] CDT!6 Mary Alvarez R.N. - 12/19/2009 3:16 AM CDT ED Nurse Reassess ED Nurse Reassess Entered On: 12/19/2009 3:16 CDT Performed On: 12/19/2009 3:16 CDT by MARY ALVAREZ RN GI Reassess GI Note: pt reports second dose of morphine helped abd pain. rates 5-6/10 MARY ALVAREZ RN - 12/19/2009 3:16 CDT Source: [employer] Document Id: [id number] CDT!3 Mary Alvarez R.N. - 12/19/2009 3:16 AM CDT ED Treatments and Procedures ED Treatments and Procedures Entered On: 12/19/2009 3:16 CDT Performed On: 12/19/2009 3:16 CDT by MARY ALVAREZ RN Peripheral IV Peripheral IV Assess/Intervention Grid Peripheral IV #1 IV Activity: Start, Discontinue Number of Attempts: 1 Date of Insertion: 12/19/2009 CDT IV Site: Hand Laterality: Left Catheter Size: 20 Catheter Type: Over the needle MARY ALVAREZ RN - 12/19/2009 3:16 CDT [facility] Document Id: [id number] CDT!11 John Ray M.D. - 12/19/2009 2:59 AM CDT Abdominal pain Patient: FLAQUIOT CARDENAS - MA00 MRN Age: 14 years Sex: Female : 1995 Author: JOHN RAY MD Basic Information History source: Patient. Arrival mode: Private vehicle. History limitation: None. Additional information:: Chief Complaint from Nursing Triage Note : Chief Complaint Description. 12/19/2009 0:34 CDT Chief Complaint Description Pt to ER with c/o upper quadrant abd pain that started earlier this evening. Pt states it carlin and radiates around to her back. No nausea/vomiting/diarrhea. History of Present Illness The patient presents with abdominal pain. The onset was just prior to arrival. The course/duration of symptoms is constant. The character of symptoms is achy andBurning. The degree at onset was moderate. The Location of pain at onset was upper and abdominal. The degree at present is moderate. The Location of pain at present is upper and abdominal. Radiating pain: central back. Exacerbating factors consist of none. The relieving factor is none. Therapy today: none. Risk factors consist of Chronic abdominal pain, has been worked up by [facility], pt s/p lap cholecystectomy 3 months ago. Associated symptoms: back pain, denies shortness of breath, denies fever and denies chills. Review of Systems Constitutional symptoms: Negative except as documented in HPI. Respiratory symptoms: Negative except as documented in HPI. Cardiovascular symptoms: Negative except as documented in HPI. Gastrointestinal symptoms: Abdominal pain no nausea, no vomiting. Genitourinary symptoms: Negative except as documented in HPI. Additional review of systems information:All other systems reviewed and otherwise negative. Health Status Allergies: . Allergic Reactions (all) NKA Medications: . Medication Orders morphine, 4 mg, 1 mL, IV, Once Prescriptions and Home Medications acetaminophen (Tylenol 325 mg oral tablet), 2 tab(s), PRN Past Medical/ Family/ Social History Medical history: Medical history, No active or resolved past medical history items have been selected or recorded.Reviewed as documented in chart. Surgical history: Surgical history. Appendectomy ([id number]). Cholecystectomy ([id number]). Family history: Family history. No family history items have been selected or recorded. Social history: Alcohol use: Denies, Tobacco use: Denies, Family/social situation: Intact family. Physical Examination Vital signs: Vital Signs. 12/19/2009 0:34 CDT Temperature Oral 36.2 DegC <LLOW Peripheral Pulse Rate 116 bpm HI Respiratory Rate 16 br/min Systolic Blood Pressure 145 mmHg >HHI Diastolic Blood Pressure 89 mmHg Mean Arterial Pressure 108 mmHg BP Location Right upper General: Alert. moderate distress. anxious. Skin: Warm. dry. pink. Head: Normocephalic. atraumatic. Neck: Supple. trachea midline. no JVD. Eye: Extraocular movements are intact. normal conjunctiva. Ears, nose, mouth and throat: Oral mucosa moist. No pharyngeal erythema or exudate. Cardiovascular: Regular rate and rhythm. No murmur. Normal peripheral perfusion. No edema. Respiratory: Lungs are clear to auscultation. respirations are non-labored. Chest wall Back: Nontender. Normal range of motion. Musculoskeletal: Normal ROM. no tenderness. no deformity. Gastrointestinal: Soft. Non distended. No organomegaly. Tenderness: moderate, epigastric and right upper quadrant. Guarding: moderate. Rebound: negative. Bowel sounds: normal. Neurological: Alert and oriented to person, place, time, and situation. No focal neurological deficit observed. Lymphatics: No lymphadenopathy Psychiatric: Appropriate mood & affect Medical Decision Making Differential Diagnosis:Abdominal pain, pancreatitis, urinary tract infection, pyelonephritis, gastroesophageal reflux disease, gastroenteritis not Appendicitis, not cholecystitis. RationalePT has had cholecystectomy recently, ?retained stones, will check labs, and administer GI cocktail. Results review:Lab results : Lab View. 12/19/2009 1:35 CDT UUA Source. 12/19/2009 1:35 CDT UA Color YELLOW UA Spec Grav >=1.030 UA pH 5.5 UA Protein Negative UA Glucose Negative UA Ketones Negative UA Bili Negative UA Urobilinogen 0.2 UA Blood Negative UA Nitrite Negative UA Leuk Est Negative UA Appear CLEAR U Beta-hCG Ql Negative 12/19/2009 0:50 CDT Hgb 14.6 gm/dL Hct 41.5 % WBC 7.6 K/mm3 RBC 4.44 M/mm3 MCV 93.4 fL MCH 32.9 pg MCHC 35.2 gm/dL HI MPV 7.3 fL LOW RDW 11.6 % LOW Platelet 232 K/mm3 Neutro % 70.6 % Lymph % 17.5 % Page % 10.5 % Eos % 1.1 % Baso % 0.3 % Neutro Absolute 5.4 K/mm3 Lymph Absolute 1.3 K/mm3 Monocyte Absol 0.80 K/mm3 Eosino Absolute 00.1 K/mm3 Basophil Absol 00.0 K/mm3 Differential? Auto Sodium Lvl 136 mmol/L Potassium Lvl 4.0 mmol/L Chloride 103 mmol/L CO2 23 mmol/L AGAP 14 mmol/L Alkaline Phosphatase 169 unit/L Glucose Fasting 105 mg/dL HI Creatinine 0.6 mg/dL BUN 17 mg/dL Calcium Lvl 9.4 mg/dL Protein Total 7.0 gm/dL Albumin Lvl 4.5 gm/dL AST 369 IntU/L HI ALT 370 unit/L HI Bili Total 0.6 mg/dL Lipase Lvl 31 IntU/L Chest X-Ray:WNL, no acute disease process, interpretation by Emergency Physician no cardiomegaly, nopleural effusion, no pulmonary edema. Reexamination/ Reevaluation Re-examination/Re-evaluation:Time 12/19/2009 03:04:00, Assessment No improvment with Gi [place], some improvement with IV morphine 4mg. LFT's symmetrically elevated. I had an extensive discussion with patient and her mother. At thist joey, I don't see the need to pursue further imaging in the ED to evaluate the elevated LFT's because her GB has already been removed and further imaging would not changemanagemetn at this time. Pt would most benefit from a follow up with a Pedi GI, and may require ERCPif this is in fact retained stone, although furhter workup for transaminitis will be reuiqred as well. Pt denies tylenol use. Pt already is followed by a Pedi GI in [place] and I offerred her transferwhich she (and mother) dont' feel is necessary at this time. They wish to go home and they will callfor follow up with [facility] in the A.M. Pt advised to refrain from using and tylenol containing products in the interim. Impression and Plan Diagnosis Abdominal pain 789.00 (ICD9 789.00, Discharge, Emergency medicine, Medical) Elevated Liver Enzymes (ICD9 794.8, Discharge, Emergency medicine, Medical) Discharge plan Condition: Improved, Stable. Dispositioned: Time 12/19/2009 03:07:00, To home. Prescriptions: Prescription Director Of Managed Services. Patient Care: Discharge Patient (Order Processing): 12/19/2009 3:07 CDT, Once Pharmacy: oxycodone 5 mg oral capsule (Ordered): 5 mg, 1 cap(s), PO, q6hr, 24 cap(s), PRN Patient was given the following educational materials: ABDOMINAL PAIN, Unknown Cause, (Female). Follow up with: CHRIS TOBIAS Within As needed; Please follow up with your [facility] tomorrow Within As needed. Counseled: Patient, Family, Regarding diagnosis, Regarding diagnostic results, Regarding treatment plan, Patient indicated understanding of instructions. Source: [facility] POWERCHART Document Id: [id number]} Conversion, Historical Provider Ser - 12/19/2009 12:34 AM CDT ED Triage Assessment ED Triage Assessment Entered On: 12/19/2009 0:35 CDT Performed On: 12/19/2009 0:34 CDT by HEMANTH LAURENT RN Reason For Visit Diagnoses(Active) Abdominal pain Date: 12/19/2009 0:34 CDT ; Diagnosis Type: Reason For Visit ; Confirmation: Complaint of ; Classification: Medical ; Clinical Service: Emergency medicine ; Code: PNED ; Probability: 0 ;Diagnosis Code: [id number] Triage Chief Complaint Description: Pt to ER with c/o upper quadrant abd pain that started earlier this evening. Pt states it carlin and radiates around to her back. No nausea/vomiting/diarrhea. Information Given By: Patient Accompanied By: Mother Mode of Arrival ED: Private vehicle, Ambulatory Track: Medical Pain Symptoms: Yes Vital Signs Assessed: Yes HEMANTH LAURENT DAVI - 12/19/2009 0:34 CDT Pain Pain Assessment Grid Pain 1 Location: Abdomen Laterality: Bilateral Intensity: 8 HEMANTH LAURENT DAVI - 12/19/2009 0:34 CDT Vital Signs Temperature Oral: 36.2DegC(Converted to: 97.2DegF) (<LLOW) Peripheral Pulse Rate: 116bpm (HI) Respiratory Rate: 16br/min Systolic Blood Pressure: 145mmHg (>HHI) Diastolic Blood Pressure: 89mmHg NIBP Mean: 108mmHg BP Location: Right upper extremity Oxygen Therapy: Room air HEMANTH LAURENT DAVI - 12/19/2009 0:34 CDT MARII MARII Level 1: No MARII Level 2: No MARII Level 3: Many HEMANTH LAURENT DAVI - 12/19/2009 0:34 CDT DCP GENERIC CODE Tracking Acuity: 3 -Urgent Tracking Group: [facility] ED HEMANTH LAURENT RN - 12/19/2009 0:34 CDT Allergy Latex Screening: No HEMANTH LAURENT DAVI - 12/19/2009 0:34 CDT Allergies (Active) NKA Estimated Onset Date: Unspecified ; Created By: BRUNO PENG; Reaction Status: Active ; Category: Drug ; Substance: NKA ; Type: Allergy ; Updated By: BRUNO PENG; Reviewed Date: 12/19/2009 0:35 CDT Source: [facility] POWERCHART Document Id: [id number] CDT!33 documented in this encounter Miscellaneous Notes Miscellaneous - Mary Alvarez R.N. - 12/19/2009 12:26 AM CDT Facility Charge Ticket Facility Charge Ticket Entered On: 12/19/2009 3:20 CDT Performed On: 12/19/2009 0:26 CDT by KIM, MARY RN Facility Charge TVL Level for Facility Charge Ticket: Level 4 Mode of Arrival ED: Private vehicle, Ambulatory [facility]x Mode of Arrival Interpreted: Standard [facility] Process Management: None [facility] Order Management: Xray - plain films, Lab tests 30 Minutes Critical Care: No [facility] Nursing Assessment: Triage and 3-5 nursing assessments Lynx Disposition: Discharge [facility]x Total Points with Diagnosis Control: 10 Lynx Visit Level: 94587 Level 4 MARY ALVAREZ RN - 12/19/2009 3:19 CDT [facility] Document Id: [id number] CDT!12 documented in this encounter Plan of Treatment Upcoming Encounters Date Type Specialty Care Team Description 04/22/2022 Appointment Laboratory Medicine Meryl Julio M.D. [address] [place], [place] [address] (Wo rk) 04/29/2022 Office Visit Endocrinology Meryl Julio M .D. [address] [place], [place] [address] (Hector martin) documented as of this encounter Procedures Procedure Name Priority Date/Time Associated Diagnosis Comme nts DX CHEST 1 VIEW Routine 12/19/2009 2:08 AM Result s for this CDT procedure are i n the results section. documented in this encounter Results DX Chest 1 View (12/19/2009 2:08 AM CDT) Anatomical Region Laterality Modality Chest N/A Radiographic Imaging Specimen (Source) Anatomical Collection Method Collection Time Re ceived Time Location / / Volume Laterality 12/19/2009 2:08 AM CDT Impressions 12/19/2009 7:33 AM CDT Lungs clear. Narrative 12/19/2009 7:33 AM CDT HISTORY: Dyspnea. ?? COMPARISON: None. ?? FINDINGS: Bony thorax is unremarkable. H eart size and pulmonary vascularity are within normal limits. Citlali ngs are clear of infiltrates or effusions. There is mild elevation of the left hemidiaphragm. ?? Procedure Note Edgar Lau Jr., M.D. / Maureen Narayan M.D. - 10/16/2016 HISTORY: Dyspnea. COMPARISON: None. FINDINGS: Bony thorax is unremarkable. H eart size and pulmonary vascularity are within normal limits. Citlali ngs are clear of infiltrates or effusions. There is mild elevation of the left hemidiaphragm. IMPRESSION: Lungs clear. Hermila Machuca(R)(CT), R.T.(R), R.T.(R)(M) IM G DIAGNOSTIC IMAGING PROCEDURES documented in this encounter Visit Diagnoses Not on filedocumented in this encounter
--- OUTSIDE RECORDS SUMMARY | 2022-03-06 07:15 | XMS_ITS | Encounter Summary ---
:1995 Author Organization [facility] Address [address] [place] [address] Care Team Providers Name Role Phone Unavailable Primary Care Provider Unavailable Encounter Details Date Type Department Care Team Description 03/13/2009 Hospital Encounter HX [facility] STEVE Bolivar Watson M.D. 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 - 03/13/2009 9:17 AM CDT [facility] 03/13/2009 REASON FOR VISIT Abdominal pain. HISTORY OF PRESENT ILLNESS Felecia Cardenas is a 13-year-old young woman who comes in for follow-up of abdominal pain. She states that she got sick the first week of school, a little bit of fever and some vomiting without any diarrhea. She seemed to completely resolve. A few weeks later, however, the abdominal pain returned. Shesaw Dr. Chin, her primary live in caregiver on 02/23/2009 and it looked more just like a viral syndrome. Symptoms continued especially with some radiation of midepigastric pain down in the right lower quadrant with question of some possible appendicitis. She saw Dr. Aguilera on 02/26/2009. Labs were doneas well as then an ultrasound of her abdomen. Everything came back completely negative and normal. Felecia reports that her belly now hurts all the time. When asked to describe the pain, she reports it feels like there is just a lot of weight on her upper abdominal area. It is not centered right in her mid epigastric area. Feels like a lot of pressure. Whenever she eats, the pressure gets more severe. She also talks that if she pushes on it, it hurts more. Anytime she swallows any food or drink within 5 or 10 minutes the pressure of feeling increases. She does not feel hungry but does continue to eat a little bit. She does not know if any foods make it worse than other foods. She has not had any vomiting. She is not burping more than usual. She has no increased flatus. She reports that she is having bowel movements daily. They have not changed. They are brown. They are soft. She does not have to push to get them out. She admits that it hurts even when she is in bed at night and this is mostly because she is lying on it. Even however, when she is on her back, she reports pain. She does not think she is sleeping well. [facility] Past medical history: Otherwise unremarkable. She does have a remote history of palpitations worked up with a Holter monitor, the dictations last year per Dr. Chin. No surgeries. She menstruates regularly with LMP earlier this month. She does have history of some headaches. Family history: Mother with history of headaches and has diabetes. Grandparents with cancer. No family history of any bowel disease, although mothers side of the family have a gallbladder problems and most have had their gallbladder removed. Social history: She is in high school. She denies any alcohol use. No tobacco use, no illicit drug use. She denies any significant social pressures. She admits she does not feel she is depressed or an anxious worrier. Her mom does believe that Felecia is kind of the listener and the one everyone tells their problems to. MEDICATIONS She is taking Zantac 150 mg twice daily and that does not seem to be improving the pain. ALLERGIES She has no known medication allergies. ROS Otherwise negative other than in the HPI. EXAMINATION GENERAL: Shows an adolescent girl in no acute distress. VITAL SIGNS: Stable. She is afebrile. Weight is 70.4 kg, unchanged from 69 kg on 02/23/2009. LABORATORY Flat and upright x-ray are done of her abdomen which show a good bowel gas pattern, good amount of gas in the small bowel, however, there is moderate retained stool in the colon. No dilated loops of bowel or suspicious radiographic findings. IMPRESSION/REPORT/PLAN Abdominal pain of unclear etiology. Talked about various possibilities. One including the stool in her colon. Suggested to mom that she try milk of magnesia maybe Thursday night and again on Thursday night and see if we can get Felecia to clean out a little bit more but also consider some magnesium citrate but would like to try the milk of magnesia first. Also talked about possibility of some gastritis and mom is worried about possibility of ulcers. We discussed changing from the Zantac to Prilosec. At this time, mom and patient would like further evaluation. Will see how quick we get Felecia in toa pediatric maintenance custodian. If it will be several weeks, we will start her empirically on the Prilosec until that visit and certainly if it resolves all of her symptoms we can cancel the further evaluation. Mom and patient are both agreeable with this plan of care. VISIT BASED ON TIME: Twenty-five out of 30 minutes were spent with the patient and her mom in [id number] counseling andcoordination of care. EDGAR/bailey Doc#: [id number] cc: Electronically Signed By:MADYSON HDZ MD On 03/15/2009 08:25 AM Source: [facility] Document Id: [id number] documented in this encounter Miscellaneous Notes Miscellaneous - China Munoz, C.M.A. - 03/13/2009 9:28 AM CDT Pediatric Air Conditioner Installer Helper Intake/History Pediatric Air Conditioner Installer Helper Intake/History Entered On: 03/13/2009 9:31 CDT Performed On: 03/13/2009 9:28 CDT by CHINA MUNOZ Intake Chief Complaint: stomach pain, dizziness and upset stomach after eating Temperature Core: 37.3DegC(Converted to: 99.1DegF) Peripheral Pulse Rate: 80bpm Respiratory Rate: 20br/min Actual Weight: 70.400kg(Converted to: 155lb 3oz, 155.205lb, 2,483.287oz) Dosing Weight Clinic: 70.40kg CHINA MUNOZ - 03/13/2009 9:28 CDT Subjective Pain Symptoms: Yes CHINA MUNOZ - 03/13/2009 9:28 CDT Pain Pain Assessment Grid Pain 1 Location: Abdomen Laterality: Bilateral Intensity: 8 CHINA UMNOZ - 03/13/2009 9:28 CDT Dependent Habits Tobacco Use/Currently Using: No CHINA MUNOZ - 03/13/2009 9:28 CDT Alcohol Use Grid Alcohol Use: None CHINA MUNOZ - 03/13/2009 9:28 CDT Allergy Allergies (Active) NKA Estimated Onset Date: Unspecified ; Created By: BRUNO PENG; Reaction Status: Active ; Category: Drug ; Substance: NKA ; Type: Allergy ; Updated By: BRUNO PENG; Reviewed Date: 03/13/2009 9:27 CDT [facility] Document Id: [id number]!21 documented in this encounter Plan of Treatment Upcoming Encounters Date Type Specialty Care Team Description 04/22/2022 Appointment Laboratory Medicine Meryl Julio M.D. [address] [place] [address] (Wo rk) 04/29/2022 Office Visit Endocrinology Meryl Julio M .D. [address] [place] [address] (Wo veronica) documented as of this encounter Visit Diagnoses Not on filedocumented in this encounter
--- OUTSIDE RECORDS SUMMARY | 2022-03-06 07:15 | XMS_ITS | Encounter Summary ---
:1995 Author Organization [facility] Address [address] [place] [address] Care Team Providers Name Role Phone Unavailable Primary Care Provider Unavailable Encounter Details Date Type Department Care Team Description 04/13/2009 Hospital Encounter HX [facility] LENNXO Aguilera, in 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 HISTORY OF PRESENT ILLNESS Felecia is a very pleasant 13-year-old female accompanied to the clinic today by her mom for a preoperative exam. She was previously seen at the pediatric GI clinic in [facility] in [place]. At that time, she had a CT scan performed of her abdomen which was negative for appendicitis or other inflammatory processes. Felecia is, therefore, scheduled for an EGD and colonoscopy on April 18, [address] Alvino Robertson at the [facility]. Felecia has been struggling with abdominal pain since the end of the December. Initially this began as a pain and cramping in the right lower quadrant. All evaluation at that time was negative. The pain has continued and sort of changed in its positioning and quality. She has been seen several times in our clinic and currently has pain in the epigastric region and her right upper quadrant. An ultrasound performed was negative. [place] note that she has worsening pain after eating and it does awaken her from sleep. She denies anynausea, vomiting, diarrhea, hematochezia or melena. She has had no fevers, chills or other cold symptoms. [facility] Past Medical History: She is a G0, P0 female. She has normal 28 to 30-day menstrual cycles with her cycle described as mild to moderate in flow, lasting about 5 days in duration. Her last menstrual period was March 26, 2009. She has had no developmental delay. No history of surgeries or chronic medical illnesses. Social History: Felecia lives at home with her mom. There is exposure to secondhand smoke in the car as well. Felecia is a good student, obtaining As and Bs at school and there are no concerns regarding her behavior or social adjustment. Family History: Is negative for cardiac disease, cancers, respiratory illnesses, bleeding disorders or reactions to anesthesia. MEDICATIONS Current medications - None. ALLERGIES No known drug allergies. ROS Complete review of systems is negative with the exception of diffuse abdominal tenderness. EXAMINATION VITAL SIGNS: Blood pressure is 110/70. Pulse is 78. Respirations 20. Temp is 37.2. Weight is 69.9 kilograms. BMI is 24. GENERAL: This is a well-appearing 13-year-old female in no acute distress. She is alert and orientedto person, place and time. HEENT: Head is normocephalic and atraumatic. Pupils are equal and reactive to direct and concentric light. There is no conjunctival injection or drainage. Tympanic membranes - Pearly francisco with good light reflex. Nose is nonerythematous without drainage. Mucous membranes are moist. Teeth are in good repair. There is no significant tonsillar enlargement or exudate noted. Neck - There is no lymphadenopathy or thyroid enlargement. CHEST: Symmetrical rise with respirations LUNGS: Are clear to auscultation bilaterally. CARDIOVASCULAR: Heart is regular rate and rhythm without murmurs, rubs or gallops. ABDOMEN: Reveals diffuse abdominal tenderness. No guarding or rebound is noted. Bowel sounds are heard throughout. There is no costovertebral angle tenderness. NEUROLOGIC EXAM: Reveals cranial nerves II through XII grossly intact without lateralizing signs. MUSCULOSKELETAL EXAM: Reveals normal gait. Full range of motion in her upper and lower extremities and full and symmetric muscle strength bilaterally. SKIN: Reveals good turgor and texture. Capillary refill is less than 2 to 3 seconds. There is no unusual hair growth or skin lesions noted. LABS Hemoglobin drawn February 26 is normal at 14.1. A urine test was apparently performed a weekago at [facility] and was negative. IMPRESSION/REPORT/PLAN 1. Abdominal pain. 2. Preoperative exam. PLAN This is a low-risk patient in a minor undergoing a minor surgery. I would recommend proceeding with the surgery as planned. She is currently medically optimized for surgery and I did ask her to hold off on any use of ibuprofen prior to her surgery. They were in understanding and agreement with the plan. MIKE/bhupinder Doc#: [id number] cc: Electronically Signed By:CHRIS AGUILERA DO On 04/17/2009 08:05 am Modified by:CHRIS AGUILERA DO On 04/17/2009 08:05 am Source: [facility] Document Id: [id number] ER APPRENTICE ARC documented in this encounter Miscellaneous Notes Miscellaneous - China Munoz C.M.A. - 04/13/2009 8:08 AM CST Adult Cabana Attendant Intake/History Adult Cabana Attendant Intake/History Entered On: 04/13/2009 8:14 WELDER APPRENTICE ARC Performed On: 04/13/2009 8:08 WELDER APPRENTICE ARC by CHINA MUNOZ Intake Chief Complaint: [facility] Temperature Core: 37.2DegC(Converted to: 99.0DegF) Peripheral Pulse Rate: 78bpm Respiratory Rate: 20br/min Systolic Blood Pressure: 110mmHg Diastolic Blood Pressure: 70mmHg NIBP Mean: 83mmHg BP Location: Right upper extremity Height: 170.00cm(Converted to: 5ft 7in, 5.58ft, 66.93in) Clinic BSA: 1.82 Body Mass Index: 24kg/m2 Actual Weight: 69.900kg(Converted to: 154.103lb) Dosing Weight Clinic: 69.90kg CHINA MUNOZ - 04/13/2009 8:08 WELDER APPRENTICE ARC Subjective Pain Symptoms: Yes CHINA MUNOZ - 04/13/2009 8:08 WELDER APPRENTICE ARC Pain Pain Assessment Grid Pain 1 Location: Abdomen Laterality: Right Intensity: 8 CHINA MUNOZ 04/13/2009 8:08 WELDER APPRENTICE ARC Dependent Habits Tobacco Use/Currently Using: No CHINA MUNOZ - 04/13/2009 8:08 WELDER APPRENTICE ARC Alcohol Use Grid Alcohol Use: None CHINA MUNOZ 04/13/2009 8:08 WELDER APPRENTICE ARC Allergies Allergies (Active) NKA Estimated Onset Date: Unspecified ; Created By: BRUNO PENG Reaction Status: Active ; Category: Drug ; Substance: NKA ; Type: Allergy ; Updated By: BRUNO PENG; Reviewed Date: 04/13/2009 8:07 WELDER APPRENTICE ARC Source: [facility] Document Id: [id number] WELDER APPRENTICE ARC!28 ER APPRENTICE ARC documented in this encounter Plan of Treatment Upcoming Encounters Date Type Specialty Care Team Description 04/22/2022 Appointment Laboratory Medicine Meryl Julio M.D. [address] [place] [address] (Wo rk) 04/29/2022 Office Visit Endocrinology Meryl Julio M .D. [address] [place] [address] (Wo rk) documented as of this encounter Visit Diagnoses Not on filedocumented in this encounter
--- OUTSIDE RECORDS SUMMARY | 2022-03-06 07:16 | XMS_ITS | Encounter Summary ---
:[address] [facility] Address [address] [place] [address] Care Team Providers Name Role Phone Unavailable Primary Care Provider Unavailable Encounter Details Date Type Department Care Team Description 06/22/2008 Hospital Encounter HX [facility] [place] Chin, DSebastianOSebastian Social History Tobacco Use Types Packs/Day Years [...] How often do you attend [employer] or temple More than 4 time s [...] at Date Recorded Female 06/21/2021 12:52 PM INTERNET APPLICATION DEVELOPER documented as of this encounter Procedure Notes Conversion, Historical Provider Ser - 06/22/2008 3:56 PM CST ECHO-MKCARD Document [place] [address] NAME: FLAQUITO TURNER MR#: [id number] RM#: : [id number] ADM DT: DICT: Unlisted Provider ATT DR: Anne Chin DO ECHOCARDIOGRAM REPORT Final ImpressionsCommentsSign OffValidateReviseAddendumNursingPrint Save Report Revision History Final Eleuterio Grimaldo M.D. Pd 06/22/2008 03:56 PM Demographics Height: 167.5 cm Weight: 65.3 kg BSA: 1.74 m2 BMI: 23.27 Procedure Start Time: 06/22/2008 02:41 PM Location: [place] [address] Referring Provider: Anne Chin Indication for Study: Palpalpations Responsible [employer] Principal Eleuterio Grimaldo [id number] Procedure Type: Congenital TTE Components: 2-D, Color Flow Doppler, Doppler, M-Mode, TDI (Tissue Doppler Imaging) Referral Diagnosis Pediatric study. Palpitations. Hemodynamics Heart Rate: 93 BPM Blood Pressure: 128 / 68 mmHg ECG: Sinus rhythm Media Details General Inspector #[email or web address] Final Impressions 1. Normal left ventricular chamber size. 2. Normal left ventricular systolic function. 3. Normal right ventricular size. 4. Normal right ventricular function. 5. Normal sized atria. 6. Normal cardiac valves. 7. The atrial septum was well visualized and appeared intact. 8. Intact ventricular septum. 9. Normal scan of the aorta. 10. No pericardial effusion. Findings Transthoracic outreach echo interpretation. Measurements Ventricular Septum Value Normal M-MODE: Thickness (d) ( mm ) 7 * 8 - 11 Posterior Wall Value Normal M-MODE: Thickness (d) ( mm ) 7 * 8 - 11 Left Ventricle Value Normal M-MODE: Dimension (d) ( mm ) 44 43 - 53 Dimension (s) ( mm ) 25 25 - 36 EF* ( % ) 71 LV Mass ( g ) 91 LV Mass index ( g/m2 ) 53 Left Atrium Value Normal 2D: 4 chamber area ( cm2 ) 12.20 Length 4-Chamber View ( mm ) 39 2 chamber area ( cm2 ) 12.20 Length 2-Chamber View ( mm ) 42 Averaged Length ( mm ) 41 Volume By A-L Method (4C-2C) ( cc ) 31 Volume Index By A-L (4C-2C) ( cc/m2 ) 18 16 - 28 Pulmonary Artery Value Normal 2D: Annulus diameter (s) ( mm ) 20 MPA diameter ( mm ) 20 LPA diameter ( mm ) 11 RPA diameter ( mm ) 12 Thoracic Aorta Value Normal ROOT 2D: Annulus diameter ( mm ) 19 Value Normal ASCENDING 2D: Proximal ascending aorta diameter ( mm ) 23 Mid ascending aorta diameter ( mm ) 22 Aortic Valve Systolic Value Normal HEMODYNAMICS: LVOT velocity ( m/sec ) 1.0 LVOT TVI ( cm ) 19.0 AV velocity ( m/sec ) 1.4 0.5 - 1.8 AV TVI ( cm ) 26.0 AV mean gradient ( mmHg ) 4 Optimal Acquisition Window Apical VALVE AREA: LVOT diameter ( cm ) 1.9 LV stroke volume ( cc ) 54 LV stroke volume index ( cc/m2 ) 31 * 32 - 58 Valve area (velocity) ( cm2 ) 2.03 Valve area (TVI) ( cm2 ) 2.07 Value Normal CARDIAC OUTPUT: HR at stroke volume acquisition ( BPM ) 93 Cardiac Output ( l/min ) 5.01 Cardiac Index ( l/min/m2 ) 2.88 2.5 - 4.2 Mitral Valve Diastolic Value Normal HEMODYNAMICS (PWD): E velocity ( m/sec ) 1.0 A velocity ( m/sec ) 0.8 E-A ratio 1.25 Deceleration time ( msec ) 114 E at A wave velocity ( m/sec ) 0.50 Medial annulus e' velocity ( m/sec ) 0.11 Lateral annulus e' velocity ( m/sec ) 0.16 E/e' (medial) 9.1 E/e' (lateral) 6.3 Pulmonary Valve Systolic Value Normal HEMODYNAMICS: RV ejection time ( msec ) avg 266 Value Normal VALVE AREA: PV Peak velocity (CWD) ( m/sec ) 1.3 * 0.4 - 1.0 ANTOLIN ( mmHg ) 7 Mean gradient ( mmHg ) 4 Pulmonary Valve Diastolic Value Normal CWD: Late diastolic velocity ( m/sec ) 1.0 Late diastolic ANTOLIN ( mmHg ) 4 End arndt. pulmonary pressure (CWD) ( mmHg ) 9 Tricuspid Valve Diastolic Value Normal HEMODYNAMICS (PWD): Lateral annulus e' velocity ( m/sec ) 0.15 Tricuspid Valve Systolic Value Normal HEMODYNAMICS: Regurgitant velocity ( m/sec ) 2.20 Regurgitant ANTOLIN ( mmHg ) 19 TV closure to opening time ( msec ) 359 RIMP 0.35 Value Normal RIGHT HEART PRESSURE: RA pressure (estimated) ( mmHg ) 5 RV systolic pressure ( mmHg ) 24 Extracardiac Vessels Value Normal PULMONARY VEINS (General): Systolic velocity ( m/sec ) 0.5 Diastolic velocity ( m/sec ) 0.8 Atrial reversal duration ( msec ) 114 Atrial reversal velocity ( m/sec ) 0.5 Serial Studies General 06/22/08 BSA ( m2 ) 1.74 BMI ( kg/m2 ) 23.27 Heart Rate ( BPM ) 93 BP Systolic ( mmHg ) 128 BP Diastolic ( mmHg ) 68 LVIDd (MM) ( mm ) 44 EF % (MM) ( % ) 71 SV Index ( cc/m2 ) 31 Cardiac Index ( l/min/m2 ) 2.88 LV Mass Index (MM) ( g/m2 ) 53 LA Vol Index (2c-4c avg length) ( cc/m2 ) 18 E/A Ratio 1.25 MV DT ( msec ) 114 E/e' Ratio 9.1 RV Pressure ( mmHg ) 24 Roles Role Name Electronically Authenticated By Date/Time Congenital Bisque Placer Rachelle Bob [facility] [employer] Principal Eleuterio Grimaldo M.D., Benjamin W M.D. Pd 06/22/2008 03:56 PM [facility] NAME: FLAQUITO TURNER Source: [facility] ISJHXDICTAPHONESYS Document Id: [id number] documented in this encounter Plan of Treatment Upcoming Encounters Date Type Specialty Care Team Description 04/22/2022 Appointment Laboratory Medicine Meryl Julio M.D. [address] [place] [address] (Hector martin) 04/29/2022 Office Visit Endocrinology Meryl Julio M .D. [address] [place] [address] (Hector martin) documented as of this encounter Procedures Procedure Name Priority Date/Time Associated Comments Diagnosis ECHO TRANSTHORACIC Routine 06/22/2008 3:34 PM Res ults for this (TTE) INTERNET APPLICATION DEVELOPER procedure are i n the results section. documented in this encounter Results Echo Transthoracic (TTE) (06/22/2008 3:34 PM INTERNET APPLICATION DEVELOPER) Anatomical Region Laterality Modality Echocardiography Specimen (Source) Anatomical Collection Method Collection Time Re ceived Time Location / / Volume Laterality 06/22/2008 3:34 PM INTERNET APPLICATION DEVELOPER Narrative 06/22/2008 3:34 PM INTERNET APPLICATION DEVELOPER Originally Signed By CONCEPCIÓN -UNKNOWN, PERSONNEL Reason for exam: PALPATATIONS, PEDS ECHO Final ImpressionsCommentsSign OffValidat eReviseAddendumNursingPrint Save Report Revision History Final Eleuterio Grimaldo M.D. Pd 06/22/19 09 03:56 PM Demographics Height: 167.5 cm ??Weight: 65.3 kg ??BSA : 1.74 m2 ??BMI: 23.27 Procedure Start Time: 06/22/2008 02:41 P M ??Location: [place] [address] Referring Provider: Anne Chin ??Indication for Study: Palpalpations Responsible [employer] Principal Eleuterio Grimaldo [phone] Procedure Type: Congenital TTE Components: 2-D, Color Flow Doppler, Dop pler, M-Mode, TDI (Tissue Doppler Imaging) Referral Diagnosis Pediatric study. Palpitations. Hemodynamics Heart Rate: 93 BPM Blood Pressure: 128 / 68 mmHg ECG: ?Sinus rhythm Media Details General Inspector #[id number] Final Impressions ? 1. Normal left ventricular chambe r size. ? 2. Normal left ventricular systol ic function. ? 3. Normal right ventricular size. ? 4. Normal right ventricular funct ion. ? 5. Normal sized atria. ? 6. Normal cardiac valves. ? 7. The atrial septum was well vis ualized and appeared intact. ? 8. Intact ventricular septum. ? 9. Normal scan of the aorta. ? 10. No pericardial effusion. Findings Transthoracic outreach echo interpretati on. Measurements Ventricular Septum ??Value Normal M-MODE: ? Thickness (d) ( mm ) 7 * 8 - 11 Posterior Wall ??Value Normal M-MODE: ? Thickness (d) ( mm ) 7 * 8 - 11 Left Ventricle ??Value Normal M-MODE: ? Dimension (d) ( mm ) 44 ?? 43 - 5 3 ? Dimension (s) ( mm ) 25 ?? 25 - 3 6 ? EF* ( % ) 71 ? LV Mass ( g ) 91 ? LV Mass index ( g/m2 ) 53 Left Atrium ??Value Normal 2D: ? 4 chamber area ( cm2 ) 12.20 ? Length 4-Chamber View ( mm ) 39 ? 2 chamber area ( cm2 ) 12.20 ? Length 2-Chamber View ( mm ) 42 ? Averaged Length ( mm ) 41 ? Volume By A-L Method (4C-2C) ( cc ) 31 ? Volume Index By A-L (4C-2C) ( cc/ m2 ) 18 ?? 16 - 28 Pulmonary Artery ??Value Normal 2D: ? Annulus diameter (s) ( mm ) 20 ? MPA diameter ( mm ) 20 ? LPA diameter ( mm ) 11 ? RPA diameter ( mm ) 12 Thoracic Aorta ??Value Normal ROOT 2D: ? Annulus diameter ( mm ) 19 ?? Value Normal ASCENDING 2D: ? Proximal ascending aorta diameter ( mm ) 23 ? Mid ascending aorta diameter ( mm ) 22 Aortic Valve Systolic ??Value Normal HEMODYNAMICS: ? LVOT velocity ( m/sec ) 1.0 ? LVOT TVI ( cm ) 19.0 ? AV velocity ( m/sec ) 1.4 ?? 0.5 - 1.8 ? AV TVI ( cm ) 26.0 ? AV mean gradient ( mmHg ) 4 ? Optimal Acquisition Window Apical VALVE AREA: ? LVOT diameter ( cm ) 1.9 ? LV stroke volume ( cc ) 54 ? LV stroke volume index ( cc/m2 ) 31 * 32 - 58 ? Valve area (velocity) ( cm2 ) 2.0 3 ? Valve area (TVI) ( cm2 ) 2.07 ?? Value Normal CARDIAC OUTPUT: ? HR at stroke volume acquisition ( BPM ) 93 ? Cardiac Output ( l/min ) 5.01 ? Cardiac Index ( l/min/m2 ) 2.88 ? ? 2.5 - 4.2 Mitral Valve Diastolic ??Value Normal HEMODYNAMICS (PWD): ? E velocity ( m/sec ) 1.0 ? A velocity ( m/sec ) 0.8 ? E-A ratio 1.25 ? Deceleration time ( msec ) 114 ? E at A wave velocity ( m/sec ) 0. 50 ? Medial annulus e' velocity ( m/se c ) 0.11 ? Lateral annulus e' velocity ( m/s ec ) 0.16 ? E/e' (medial) 9.1 ? E/e' (lateral) 6.3 Pulmonary Valve Systolic ??Value Normal HEMODYNAMICS: ? RV ejection time ( msec ) avg 266 ?? Value Normal VALVE AREA: ? PV Peak velocity (CWD) ( m/sec ) 1.3 * 0.4 - 1.0 ? ANTOLIN ( mmHg ) 7 ? Mean gradient ( mmHg ) 4 Pulmonary Valve Diastolic ??Value Normal CWD: ? Late diastolic velocity ( m/sec ) 1.0 ? Late diastolic ANTOLIN ( mmHg ) 4 ? End arndt. pulmonary pressure (CWD ) ( mmHg ) 9 Tricuspid Valve Diastolic ??Value Normal HEMODYNAMICS (PWD): ? Lateral annulus e' velocity ( m/s ec ) 0.15 Tricuspid Valve Systolic ??Value Normal HEMODYNAMICS: ? Regurgitant velocity ( m/sec ) 2. 20 ? Regurgitant ANTOLIN ( mmHg ) 19 ? TV closure to opening time ( msec ) 359 ? RIMP 0.35 ?? Value Normal RIGHT HEART PRESSURE: ? RA pressure (estimated) ( mmHg ) 5 ? RV systolic pressure ( mmHg ) 24 Extracardiac Vessels ??Value Normal PULMONARY VEINS (General): ? Systolic velocity ( m/sec ) 0.5 ? Diastolic velocity ( m/sec ) 0.8 ? Atrial reversal duration ( msec ) 114 ? Atrial reversal velocity ( m/sec ) 0.5 Serial Studies General ?? 06/22/08 BSA ( m2 ) 1.74 BMI ( kg/m2 ) 23.27 Heart Rate ( BPM ) 93 BP Systolic ( mmHg ) 128 BP Diastolic ( mmHg ) 68 LVIDd (MM) ( mm ) 44 EF % (MM) ( % ) 71 SV Index ( cc/m2 ) 31 Cardiac Index ( l/min/m2 ) 2.88 LV Mass Index (MM) ( g/m2 ) 53 LA Vol Index (2c-4c avg length) ( cc/m2 ) 18 E/A Ratio 1.25 MV DT ( msec ) 114 E/e' Ratio 9.1 RV Pressure ( mmHg ) 24 Roles ??Role Name Electronically Authenticate d By Date/Time ??Congenital Bisque Placer ??Rachelle Dominique HERMELINDA ??Oil And Gas Principal ??Eleuterio Grimaldo M.D. P d ??Eleuterio Grimaldo M.D. 06/22/2008 03:56 PM Procedure Note ProviderMaureen M.D. - 10/28/2016F ormatting of this note might be different from the original. Originally Signed By ATIYA YI Reason for exam: PALPATATIONS, PEDS ECHO Final ImpressionsCommentsSign OffValidat eReviseAddendumNursingPrint Save Report Revision History Final Eleuterio Grimaldo M.D. Pd 06/22/19 09 03:56 PM Demographics Height: 167.5 cm Weight: 65.3 kg BSA: 1. 74 m2 BMI: 23.27 Procedure Start Time: 06/22/2008 02:41 P M Location: [place] [address] Referring Provider: Anne Chin Indication for Study: Palpalpations Responsible [employer] Principal Eleuterio Grimaldo [phone] Procedure Type: Congenital TTE Components: 2-D, Color Flow Doppler, Dop pler, M-Mode, TDI (Tissue Doppler Imaging) Referral Diagnosis Pediatric study. Palpitations. Hemodynamics Heart Rate: 93 BPM Blood Pressure: 128 / 68 mmHg ECG: Sinus rhythm Media Details General Inspector #[id number] Final Impressions 1. Normal left ventricular chamber size . 2. Normal left ventricular systolic fun ction. 3. Normal right ventricular size. 4. Normal right ventricular function. 5. Normal sized atria. 6. Normal cardiac valves. 7. The atrial septum was well visualize d and appeared intact. 8. Intact ventricular septum. 9. Normal scan of the aorta. 10. No pericardial effusion. Findings Transthoracic outreach echo interpretati on. Measurements Ventricular Septum Value Normal M-MODE: Thickness (d) ( mm ) 7 * 8 - 11 Posterior Wall Value Normal M-MODE: Thickness (d) ( mm ) 7 * 8 - 11 Left Ventricle Value Normal M-MODE: Dimension (d) ( mm ) 44 43 - 53 Dimension (s) ( mm ) 25 25 - 36 EF* ( % ) 71 LV Mass ( g ) 91 LV Mass index ( g/m2 ) 53 Left Atrium Value Normal 2D: 4 chamber area ( cm2 ) 12.20 Length 4-Chamber View ( mm ) 39 2 chamber area ( cm2 ) 12.20 Length 2-Chamber View ( mm ) 42 Averaged Length ( mm ) 41 Volume By A-L Method (4C-2C) ( cc ) 31 Volume Index By A-L (4C-2C) ( cc/m2 ) 1 8 16 - 28 Pulmonary Artery Value Normal 2D: Annulus diameter (s) ( mm ) 20 MPA diameter ( mm ) 20 LPA diameter ( mm ) 11 RPA diameter ( mm ) 12 Thoracic Aorta Value Normal ROOT 2D: Annulus diameter ( mm ) 19 Value Normal ASCENDING 2D: Proximal ascending aorta diameter ( mm ) 23 Mid ascending aorta diameter ( mm ) 22 Aortic Valve Systolic Value Normal HEMODYNAMICS: LVOT velocity ( m/sec ) 1.0 LVOT TVI ( cm ) 19.0 AV velocity ( m/sec ) 1.4 0.5 - 1.8 AV TVI ( cm ) 26.0 AV mean gradient ( mmHg ) 4 Optimal Acquisition Window Apical VALVE AREA: LVOT diameter ( cm ) 1.9 LV stroke volume ( cc ) 54 LV stroke volume index ( cc/m2 ) 31 * 3 2 - 58 Valve area (velocity) ( cm2 ) 2.03 Valve area (TVI) ( cm2 ) 2.07 Value Normal CARDIAC OUTPUT: HR at stroke volume acquisition ( BPM ) 93 Cardiac Output ( l/min ) 5.01 Cardiac Index ( l/min/m2 ) 2.88 2.5 - 4 .2 Mitral Valve Diastolic Value Normal HEMODYNAMICS (PWD): E velocity ( m/sec ) 1.0 A velocity ( m/sec ) 0.8 E-A ratio 1.25 Deceleration time ( msec ) 114 E at A wave velocity ( m/sec ) 0.50 Medial annulus e' velocity ( m/sec ) 0. 11 Lateral annulus e' velocity ( m/sec ) 0 .16 E/e' (medial) 9.1 E/e' (lateral) 6.3 Pulmonary Valve Systolic Value Normal HEMODYNAMICS: RV ejection time ( msec ) avg 266 Value Normal VALVE AREA: PV Peak velocity (CWD) ( m/sec ) 1.3 * 0.4 - 1.0 ANTOLIN ( mmHg ) 7 Mean gradient ( mmHg ) 4 Pulmonary Valve Diastolic Value Normal CWD: Late diastolic velocity ( m/sec ) 1.0 Late diastolic ANTOLIN ( mmHg ) 4 End arndt. pulmonary pressure (CWD) ( mm Hg ) 9 Tricuspid Valve Diastolic Value Normal HEMODYNAMICS (PWD): Lateral annulus e' velocity ( m/sec ) 0 .15 Tricuspid Valve Systolic Value Normal HEMODYNAMICS: Regurgitant velocity ( m/sec ) 2.20 Regurgitant ANTOLIN ( mmHg ) 19 TV closure to opening time ( msec ) 359 RIMP 0.35 Value Normal RIGHT HEART PRESSURE: RA pressure (estimated) ( mmHg ) 5 RV systolic pressure ( mmHg ) 24 Extracardiac Vessels Value Normal PULMONARY VEINS (General): Systolic velocity ( m/sec ) 0.5 Diastolic velocity ( m/sec ) 0.8 Atrial reversal duration ( msec ) 114 Atrial reversal velocity ( m/sec ) 0.5 Serial Studies General 06/22/08 BSA ( m2 ) 1.74 BMI ( kg/m2 ) 23.27 Heart Rate ( BPM ) 93 BP Systolic ( mmHg ) 128 BP Diastolic ( mmHg ) 68 LVIDd (MM) ( mm ) 44 EF % (MM) ( % ) 71 SV Index ( cc/m2 ) 31 Cardiac Index ( l/min/m2 ) 2.88 LV Mass Index (MM) ( g/m2 ) 53 LA Vol Index (2c-4c avg length) ( cc/m2 ) 18 E/A Ratio 1.25 MV DT ( msec ) 114 E/e' Ratio 9.1 RV Pressure ( mmHg ) 24 Roles Role Name Electronically Authenticated By Date/Time Congenital Bisque Placer Rachelle Bob [facility] [employer] Principal Eleuterio Grimaldo M.D., Ei, Benjamin W M.D. Pd 06/22/2008 03:56 PM Historical Provider CV ECHO PROCEDURES documented in this encounter Visit Diagnoses Not on filedocumented in this encounter
--- OUTSIDE RECORDS SUMMARY | 2022-03-06 07:16 | XMS_ITS | Encounter Summary ---
:1995 Author Organization [facility] Address [address] [place] [address] Care Team Providers Name Role Phone Unavailable Primary Care Provider Unavailable Encounter Details Date Type Department Care Team Description 06/15/2008 Hospital Encounter [facility]X [facility] Chin, [place] Donnelly, DSebastianO. Social History Tobacco Use Types Packs/Day Years [...] How often do you attend jain or nondenominational More than 4 time s [...] at Date Recorded Female 06/21/2021 12:52 PM SOCIAL SCIENCES DEPARTMENT CHAIR documented as of this encounter Progress Notes Anne Chin D.O. - 06/15/2008 12:00 AM CST [facility]LS[facility] [address] [address] Name: FLAQUITO TURNER MARTIN : [birth year] Attending Provider: Anne Chin DO CLINIC NOTE FAMILY PRACTICE 06/15/2008 REASON FOR VISIT: Well child check. HISTORY OF PRESENT ILLNESS: Flaquito is a 12-year-old. Initially this appointment was scheduled as a sports physical well child check, but Flaquito reported return of her chest pain with some palpitations and so for this reason we put the well child check on hold and changed it over to a consult visit. I did explain to Flaquito I could not clear her for sports with these symptoms. At this point we did ask mom to come back and she was present during the remaining visit. This is similar to the chest pain she had this past summer on 10/29/07, please see that note. A chest x-ray at that time was normal. She did end up responding to Naprosyn after about two weeks, mom said. She took it for a total of one month and has been asymptomatic for the last several months, though now it has returned intermittently since February of 2008, occurring most days. There is no pattern that she can identify. It is not related to activity. She describes the pain as shooting, lasting for thirty seconds. No radiation. Occasionally she will have palpitations with this for up to a minute. There is no pain with breathing, no shortness of breath. Occasionally she gets a little dizzy if the pain is severe. She does feel that stress makes it worse. Her mother adds that she is very giving to all of her friends. She describes her as the Dr. Daniels of her friends, helping them solve their problems, etc. Flaquiot denies any depression or anxiety. There are no concerns at school. She is planning on joining [email or web address] in July. Additionally she reports some occasional right parietal discomfort, headache like a shock. She also has a tension type headache at times. She has exercised without any difficulty. PFSH: Social history: She drinks an occasional energy drink and coffee one to two a day, Mountain Dew as well. MEDICATIONS: None. ALLERGIES: No known drug allergies. ROS: See HPI. GI - No nausea or vomiting. No heartburn symptoms. No change with her pains with eating food, etc. Neurologic - No dizziness or syncope. EXAMINATION: Height 170 cm. Weight 55.5 kg. Blood pressure 118/70. Pulse 80. Respiratory rate 18. Temperature 98.2. In general, alert and oriented x3, in no acute distress. Heart - Regular rate and rhythm. No murmur. Lungs - CTABL. Extremities - No edema. Abdomen - Soft and nontender. Psych - Affect is quiet, but not depressed, not anxious. Insight and judgment good. IMPRESSION/REPORT/PLAN: Chest pain with palpitations. Her mom just got laid off and they will be losing their insurance coverage soon. I would like to get some labs. We talked about keeping a log of her symptoms and getting an echocardiogram. Will check a CBC, chem-8, sed rate, and TSH and see them back next week. I also ordered a Holter monitor. VISIT BASED ON TIME: Thirty minutes was spent with the patient, greater than 50% of the visit spent in counseling and coordination of care. ASHLI/vicente Doc#: [id number] Authenticated by Anne Chin D.O. on 06/22/2008 21:38:36 Authorized physician signature on file [facility] NAME: FLAQUITO TURNER DT: 1621 Source: [facility] ISJHXDICTAPHONESYS Document Id: [id number] documented in this encounter Plan of Treatment Upcoming Encounters Date Type Specialty Care Team Description 04/22/2022 Appointment Laboratory Medicine Meryl Julio M.D. [address] [place] [address] (Wo rk) 04/29/2022 Office Visit Endocrinology Meryl Julio M .D. [address] [place] [address] (Wo rk) documented as of this encounter Visit Diagnoses Not on filedocumented in this encounter
--- OUTSIDE RECORDS SUMMARY | 2022-03-06 07:16 | XMS_ITS | Encounter Summary ---
:1995 Author Organization [facility] Address [address] [place] [address] Care Team Providers Name Role Phone Unavailable Primary Care Provider Unavailable Encounter Details Date Type Department Care Team Description 02/23/2009 Hospital Encounter HX [facility] Marietta Garcia, DSebastianO. 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 - 02/23/2009 10:24 AM CDT [facility] 02/23/2009 REASON FOR VISIT Headache, fever, vomiting. HISTORY OF PRESENT ILLNESS Felecia is an here with her mom today. For three days, she has had intermittent headache with a fever no more than 99 she states. Vomiting and dizziness. Her mom had similar symptoms a week ago and isnow better. She describes the abdominal pain as like a cramp. It comes and goes. She had three episodes of emesis yesterday, none today. Her mom is concerned that she is not drinking enough. It is hardfor her to localize where her stomach pain is. She denies any urinary symptoms or abnormal vaginal discharge. The first day of last menstrual period is January 29, 2009 and she denies being sexually active. [facility] Past Medical History: Unremarkable. MEDICATIONS None. ALLERGIES No known drug allergies. EXAMINATION VITAL SIGNS: Blood pressure 120/70, respiratory rate 16, temperature 98.4 Fahrenheit, weight 69 kg. Heart rate 96. GENERAL: Alert, oriented x3. Does not appear toxic. HEENT: Conjunctivae white. No drainage. TMs pearly guthrie BL. Nares patent. No rhinorrhea. No maxillary or frontal sinus tenderness. Mouth: MMM. Posterior pharynx without erythema or exudate. There is some clear postnasal drainage only. NECK: No cervical adenopathy. No nuchal rigidity. HEART: Regular rate and rhythm. No murmur. LUNGS: CTABL. ABDOMEN: Positive bowel sounds. Soft. She complains of diffuse tenderness. No rebound, rigidity or guarding. No mass. Back is palpated. Nontender. No CVA tenderness. SKIN: Warm, dry, no rash. EXTREMITIES: No swelling, erythema or tenderness. IMPRESSION/REPORT/PLAN Viral syndrome, gastroenteritis. I did do an CBC today along with an chem 8. Both were normal. Thesewere discussed with Felecia and her mom before they left. We talked about warning signs and symptoms. Discussed BRAT diet, importance of fluids, even if just small sips every 15 to 30 minute intervals. A note was given to her to be off of school. I think she should be better by early next week. If she is not or gets worse in anyway, I recommend reevaluation. We did talk about presentation of appendicitis. I do not feel she has this clinically but if she is not improving or pain gets worse, I would want her to go the ER this weekend. 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 Intake/History Pediatric Demo Event Specialist Intake/History Entered On: 02/23/2009 10:38 CDT Performed On: 02/23/2009 10:37 CDT by BRUNO PENG Intake Chief Complaint: headache, fever,vomiting, dizzy x 3 days Ambulatory Intake Additional Information: denies depression and dv Temperature Oral: 36.8DegC(Converted to: 98.2DegF) Peripheral Pulse Rate: 96bpm (HI) Respiratory Rate: 16br/min Systolic Blood Pressure: 120mmHg Diastolic Blood Pressure: 70mmHg NIBP Mean: 87mmHg BP Reading Side: Right upper extremity Actual Weight: 69.000kg(Converted to: 152lb 2oz, 152.119lb, 2,433.904oz) Dosing Weight Clinic: 69.00kg BRUNO PENG - 02/23/2009 10:37 CDT Subjective Pain Symptoms: Yes BRUNO PENG - 02/23/2009 10:37 CDT Pain Pain Assessment Grid Pain 1 Location: Abdomen Intensity: 6 BRUNO PENG E - 02/23/2009 10:37 CDT Dependent Habits Tobacco Use/Currently Using: No BRUNO PENG E - 02/23/2009 10:37 CDT Alcohol Use Grid Alcohol Use: None BRUNO PENG E - 02/23/2009 10:37 CDT Allergy Source: [facility] [employer] Document Id: [id number]!25 documented in this encounter Plan of Treatment Upcoming Encounters Date Type Specialty Care Team Description 04/22/2022 Appointment Laboratory Medicine Meryl Julio M.D. [address] [place] [address] ([place]onica) 04/29/2022 Office Visit Endocrinology Meryl Julio M .D. [address] [place] [address] ([place]o veronica) documented as of this encounter Visit Diagnoses Not on filedocumented in this encounter
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
--- OUTSIDE RECORDS SUMMARY | 2022-03-06 07:16 | XMS_ITS | Encounter Summary ---
:1995 Author Organization [facility] Address [address] [place] [address] Care Team Providers Name Role Phone Unavailable Primary Care Provider Unavailable Encounter Details Date Type Department Care Team Description 10/29/2007 Hospital Encounter [facility]X [facility] Marietta Garcia, DSebastianO. 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 - 10/29/2007 12:00 AM CDT CLNOTE-MKLSCLI [address] [address] Name: FLAQUITO TURNER MARTIN : [birth year] Attending Provider: Anne Chin DO [facility]INIC [facility] PRACTICE 10/29/2007 REASON FOR VISIT: Chest pain. HISTORY OF PRESENT ILLNESS: Flaquito is 66-nqiew-oer. She is here today with her mother Marcia whom I know; this is the first time I have met Flaquito. She has not been in since 2003. Normally she describes her health as quite healthy. The main concern today and the reason for the appointment was the chest pain but in the last couple of days she has developed a sore throat and has been exposed to strep throat via her moms boyfriend so her mom would like her to be checked for strep as well today. She herself complains of the mid-chest discomfort, points to he mid-sternal area for the last couple of months. Her mom has only become aware of it in the last couple of days. Flaquito says it was pretty mild before but has been gradually increasing. She describes the pain as a squooshed pressure-type feeling, sometimes sharp. Again, she points to the central sternal area and says it is reproducible if she palpates the area. The pain is worse if she drinks liquids, there is no variation with solids. If she lies on her back or her chest it also increases. There is no change with any activity level. Besides the pressure feeling, she occasionally feels like her heart is racing and this will be occasionally associated with some lightheadedness. Previously it would occur just for brief periods of time throughout the day. Now it is happening more frequently throughout the day. She is not noticing it at night though, it does not keep her up etc. She has tried heating pads, Advil, and Tylenol without any relief. Note: She denies any trauma, new exercise, etc. PFSH: Past Medical History - Denies any chronic medical problems. There is no history of any hospitalizations or surgeries. She had normal childhood illnesses, ear infections, strep throats, etc. No history of any tubes. Family History - Mom with history of costochondritis, has done well in the past with Naprosyn and ibuprofen. Social History - Lives at home with mom. She is very close with mom. Mom has a boyfriend and there is a good relationship there as well. She does not have contact with her father. No siblings. Recently there has been stress with a very close friend, it sounds like there was an argument and question about the friend lying to Flaquito which was very stressful to her in the last weekend. They did not go into this in detail but mom wonders if this could be a component. No tobacco use. No alcohol or illicit drug use. She is a good student, no concerns there. MEDICATION: No chronic medications, no herbals, loei-npc-rykxfsz diet pills, etc. Again she has taken some Tylenol and Advil but nothing beyond this. ROS: See HPI. General - No fever or chills. No fatigue or weight fluctuation. Mom has noticed a decreased appetite for about two weeks. HEENT - Sore throat with some ear pain since the most recent illness but not related to the chest pain complaint. Pulmonary - No shortness of breath. No dyspnea on exertion. No cough with the chest pain. She has a mild cough secondary to present sore throat. No history of any chronic lung disease, asthma, exercise asthma, etc. GI - No abdominal pain, heartburn, dyspepsia, nausea, vomiting, diarrhea, constipation. There is no dysphagia or odynophagia. Neuro - No headache, occasional lightheadedness as above. No syncope. Psych - No depression or anxiety. EXAMINATION: Temperature 98, pulse 72, respiratory rate 12, weight 55 kg. First day of last menstrual period 10/16/07. General - Alert and oriented times three, calm. Age appropriate behavior. HEENT - NAEL, EOMI. Conjunctivae - White. TMs - Pearly francisco bilaterally. Nares - Patent, no rhinorrhea. Mouth - Posterior pharynx is a little red with some clear PND. No exudate or petechiae. Neck - Shotty cervical adenopathy, symmetric. No nuchal rigidity. A little tender. No thyromegaly. Heart - Regular rate and rhythm. No murmur. Lungs - Clear to auscultation bilaterally. Note: I did press on her chest wall today. There was some tenderness which is similar to what she was talking about. Abdomen - Soft, non-tender. No organomegaly. Skin - No rash. Psych - Normal affect. Labs - A rapid strep test was negative today. IMPRESSION/REPORT/PLAN: 1. Atypical chest pain - She does have some features of musculoskeletal component. There may be palpitations going on as well. Cannot fully rule out stress or acute anxiety reaction. Rule out gastroesophageal reflux disease (GERD). PLAN: Marcia's mother just got a job whose benefits will not kick in for 90 days so presently Flaquito does not have health insurance. We talked about testing involved, a chest x-ray, possibly even an event monitor, echocardiogram, labs, etc. I do not think any need to be done emergently right now. I would start with a chest x-ray and mom is comfortable with this. I also think it would not hurt to try some scheduled Naprosyn 500 mg b.i.d. with food at least for the next week to see if this has any affect. Again there is some overlap with her presentation and different diagnostic possibilities and I went over this with mom and Flaquito today. We will start with the plan as discussed, I will get back to them with the final x-ray result when it is available, and we will see how she does in a week. Hold on further testing and labs at this time. 2. Pharyngitis. Rapid strep was negative today. Continue to monitor. Treat symptomatically. Suspect she has a virus. ASHLI/shruthi/ramona Doc#: [id number] Authenticated by Anne Chin D.O. on 11/07/2007 21:51:12 Authorized physician signature on file [facility] NAME: FLAQUITO TURNER DT: [id number] Source: JALIL ISJHXDICTAPHONESYS Document Id: [id number] Electronically signed by Conversion, [facility] Sales Agent [employer] [id number] at 10/27/2016 4:42 AM CDT documented in this encounter Plan of Treatment Upcoming Encounters Date Type Specialty Care Team Description 04/22/2022 Appointment Laboratory Medicine Meryl Julio M.D. [address] [place] [address] (Hector martin) 04/29/2022 Office Visit Endocrinology Meryl Julio M .D. [address] [place] [address] (Hector martin) documented as of this encounter Visit Diagnoses Not on filedocumented in this encounter
--- OUTSIDE RECORDS SUMMARY | 2022-03-06 07:16 | XMS_ITS | Encounter Summary ---
:1995 Author Organization [facility] Address [address] [place] [address] Care Team Providers Name Role Phone Unavailable Primary Care Provider Unavailable Encounter Details Date Type Department Care Team Description 06/29/2006 Hospital Encounter HX [facility] Flaquito Rodriguez cox monett C, R.N. 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 [address] [place], [place] [address] (Hector martin) 04/29/2022 Office Visit Endocrinology Meryl Julio M .D. [address] [place], [place] [address] (Hector martin) documented as of this encounter Visit Diagnoses Not on filedocumented in this encounter
--- OUTSIDE RECORDS SUMMARY | 2022-03-06 07:16 | XMS_ITS | Encounter Summary ---
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 - 06/21/2008 12:00 AM CST CLNOTE-MKLSCLI [place] [address] Name: FLAQUITO TURNER : [birth year] Attending Provider: Anne Chin DO CLINIC NOTE FAMILY PRACTICE 06/21/2008 REASON FOR VISIT: Follow up labs. HISTORY OF PRESENT ILLNESS: Flaquito is 12. She is here with her mom. Please see my note from last week. She did complete the Holter monitor. It has been sent in. I do not have the results yet, however. She had two or three episodes of her chest discomfort in the last week. These occurred at various times, all were at rest. Once she was sitting at home after doing some homework. It lasted about two minutes, was sharp, resolved spontaneously. Another one occurred when at school in class when talking with friends. The last one occurred when she was packing some clothes into a suitcase. There are no other symptoms with this. No radiation. No relation to eating. Denies palpitations, dizziness, being stressed or anxious at the time, etc. She continues to participate in gym class without any problems. She has no chest discomfort with exercise. They did some running today she completed without difficulty. Flaquito did get an eye exam yesterday, was told she needed glasses. PFSH: Social History - Nonsmoker. No alcohol or illicit drug use. Family History - There is no early history of sudden cardiac or any congenital cardiac abnormalities, etc. Social History - Previously reviewed. No concerns at school. MEDICATIONS: None. ALLERGIES: No known drug allergies. ROS: See HPI. Also see the sports physical screening questionnaire which I reviewed with her in detail with her mother as well today. She did check yes to an episode of passing out dizziness, and chest pain. When asked to further elaborate, this was a one-time episode a year or so ago. At that time, she was in a hot gym. They were running hard From her description, it sounds like it was more secondary to being out of shape, maybe pushing things too much. When she stopped, she felt fine and these conglomeration of symptoms have not reoccurred. EXAMINATION: Blood pressure 118/68, pulse 88, weight 66 kg. General - Alert and oriented x3. Heart - Regular rate and rhythm, no murmur. Chest wall is palpated, nontender. Lungs - CTABL. Neck is supple, no adenopathy. Abdomen - Soft, nontender, no organomegaly. Musculoskeletal exam is completed. See sports physical form. Psych - Quiet affect. Age-appropriate behavior, not anxious. Answers questions appropriately. IMPRESSION/REPORT/PLAN: 1. Chest pain. My feeling is this more of a musculoskeletal issue versus cardiac. This summer she did respond to some Naprosyn after consistent usage. However, we did talk about checking an echo, ruling out any mitral valve prolapse for example, and I would like to get an EKG today. Mom does want to complete these things before the end of the month as she is about to lose her insurance coverage and does not know when this will be in place again in the near future. I did start Naprosyn 500 mg b.i.d. #60 two refills. 2. Health maintenance. We did complete the remainder of her sports physical and discussed Menactra vaccination along with Gardasil, and mom would like to proceed with these. I will not clear her for sports at this time pending the workup, but again, we will do as much as we can now and hopefully be able to clear her in the future. Mom is fine with that. VISIT BASED ON TIME: Thirty minutes spent with the patient with greater than 50% of the visit spent counseling and coordination of care. ASHLI/castillo Doc#: [id number] Authenticated by Anne Chin D.O. on 06/27/2008 22:28:37 Authorized physician signature on file cc: [facility] NAME: FLAQUITO TURNER DT: [id number] Source: JALIL ISJHXDICTAPHONESYS Document Id: [id number] Electronically signed by Conversion, [facility] [employer] Car Reconditioner [id number] at 10/26/2016 6:43 PM CDT documented in this encounter Plan of Treatment Upcoming Encounters Date Type Specialty Care Team Description 04/22/2022 Appointment Laboratory Medicine Meryl Julio M.D. [address] [place] [address] (Hector martin) 04/29/2022 Office Visit Endocrinology Meryl Julio M .D. [address] [place] [address] (Hector martin) documented as of this encounter Visit Diagnoses Not on filedocumented in this encounter
--- OUTSIDE RECORDS SUMMARY | 2022-03-06 07:16 | XMS_ITS | Encounter Summary ---
:1995 Author Organization [facility] Address [address] [place] [address] Care Team Providers Name Role Phone Unavailable Primary Care Provider Unavailable Encounter Details Date Type Department Care Team Description 02/26/2009 Hospital Encounter HX [facility] LENNOX Aguilera, in C, D.O. 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 - 02/26/2009 4:20 PM CDT [facility] 02/26/2009 REASON FOR VISIT Stomach pain. HISTORY OF PRESENT ILLNESS Flaquito is an pleasant 13-year-old white female who presents to the clinic today accompanied by mary with concerns for abdominal pain. She was seen by Dr. Chin three days ago and diagnosed with aviral syndrome, likely gastroenteritis. At that time, she was reporting headache, low-grade temperatu res, vomiting and dizziness. She did have some diffuse abdominal pain at that time. An CBC and a chem 8 was performed which was normal and she was instructed in conservative management but given warning signs as when to return. They are here today because they are concerned about appendicitis. She is having right upper quadrant pain which sometimes radiates down into the lower quadrant. Reportedly, she called and told one of our nurses that she was uncomfortable if she was even bumped at school. Shehas been afebrile. She has been eating but notes that if she eats fatty foods such as cheeseburgers her pain gets worse. She was able to tolerate peaches and liquids. She has had no diarrhea or blood in her stools. She has not had an episode of vomiting since the february. She is currently menstruating. Her menstrual period actually began today and has had no significant clotting or crampingassociated with it. She does have normal regular periods and is not sexually active. She denies any v aginal discharge or odor. She denies any dysuria, hematuria, frequency or hesitancy. [facility] Past Medical History: She is generally well. No history of irritable bowel or inflammatory bowel disorders. Family History: Mother does have irritable bowel syndrome. No Crohn disease or ulcerative colitis. Family history of gallbladder disease. Social History: She has had no recent travel or eating out. She has had no known sick contacts. She does not smoke or drink alcohol. MEDICATIONS None. ALLERGIES No known drug allergies. EXAMINATION VITAL SIGNS: Blood pressure is 100/60, respirations 18, pulse 68, temperature is 36.7. GENERAL: This is an well-appearing 13-year-old female in no acute distress. She is alert and oriented to person, place and time. HEENT: Head is normocephalic and atraumatic. Bilateral tympanic membranes are pearly guthrie with a good light reflex. Mouth: Mucous membranes are moist. Posterior oropharynx is noninjected and without discharge. NECK: There is no lymphadenopathy. HEART: Regular rate and rhythm without murmurs, rubs or gallops. LUNGS: Clear to auscultation bilaterally. ABDOMEN: Soft. There is right upper quadrant tenderness. No guarding or rebound is noted. There are no peritoneal signs and no pain at McBurney point. There is no costovertebral angle tenderness. EXTREMITIES: Without edema. SKIN: No rash. LABORATORY: Labs were performed. Liver function testing was normal. Alkaline phosphatase was slightly elevated at 148 but this is appropriate for her age. AST is 12, ALT 12, total bilirubin 0.4, total protein 7.2, albumin 4.42, direct bilirubin is 0.1. A serum test is negative. CBC shows a white count of 8.7, hemoglobin 14.1 and platelet count of 269. IMPRESSION/REPORT/PLAN Right upper quadrant pain. PLAN: Reassured mom and Flaquito about the likely benign nature of this illness. Because she is having worsening with fatty foods and there is a family history of gallbladder disease, we opted to obtain a right upper quadrant ultrasound which will be performed in two days. Warning signs were given as to when to return. This includes worsening of pain, unable to tolerate fluids or a fever greater [id number]. Mom and Flaquito were in understanding and agreement with the plan. Papi Doc#: [id number] cc: Electronically Signed By:CHRIS AGUILERA DO On 03/02/2009 07:46 AM Source: [facility] ISJDICTAPHÁNGELYS Document Id: [id number] documented in this encounter Miscellaneous Notes Miscellaneous - Chris Aguilera D.O. - 03/02/2009 12:00 AM CDT GERRY March 02, 2009 Re: FLAQUITO TURNER [address] [place] [id number] : 1995 MR#: [id number] Dear Flaquito and family: This letter is in regards to your recent ultrasound. Everything appeared completely normal and thereare no signs of gallbladder or biliary disease. The liver, pancreas, and kidneys also appeared normal. If you continue to have problems with abdominal pain, please let us know and we can investigate further. Sincerely, Chris Aguilera D.O. [facility] EW:nclb Doc#: [id number] Source: [facility] ISJDICTAPHONESYS Document Id: [id number] Miscellaneous - China Munoz C.M.A. 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 Intake/History Entered On: 02/26/2009 16:31 CDT Performed On: 02/26/2009 16:27 CDT by CHINA MUNOZ Intake Chief Complaint: stomach pains again Temperature Oral: 36.7DegC(Converted to: 98.1DegF) Peripheral Pulse Rate: 68bpm Respiratory Rate: 18br/min Systolic Blood Pressure: 100mmHg Diastolic Blood Pressure: 60mmHg NIBP Mean: 73mmHg BP Location: Left upper extremity CHINA MUNOZ - 02/26/2009 16:27 CDT Subjective Pain Symptoms: Yes CHINA MUNOZ - 02/26/2009 16:27 CDT Pain Pain Assessment Grid Pain 1 Location: Abdomen Laterality: Right Intensity: 8 CHINA MUNOZ - 02/26/2009 16:27 CDT Dependent Habits Tobacco Use/Currently Using: No CHINA MUNOZ - 02/26/2009 16:27 CDT Alcohol Use Grid Alcohol Use: None CHINA MUNOZ - 02/26/2009 16:27 CDT Allergies Allergies (Active) NKA Estimated Onset Date: Unspecified ; Created By: BRUNO PENG; Reaction Status: Active ; Category: Drug ; Substance: NKA ; Type: Allergy ; Updated By: BRUNO PENG; Reviewed Date: 02/26/2009 16:27 CDT Source: [facility] [employer] Document Id: [id number]!23 documented in this encounter Plan of Treatment Upcoming Encounters Date Type Specialty Care Team Description 04/22/2022 Appointment Laboratory Medicine Meryl Julio M.D. [address] [place] [address] (Hector martin) 04/29/2022 Office Visit Endocrinology Meryl Julio M .D. [address] [place], [place] [address] (Hector martin) documented as of this encounter Visit Diagnoses Not on filedocumented in this encounter
[2022-03-06] MEDS: miSOPROStoL 25 MCG/0.25 TABLET VAGINAL ×2 (07:52→12:01)
--- NOTE | 2022-03-06 07:54 | P.LDBA_ITS ---
Subjective History of Present Illness Date Seen: 03/06/22 Narrative: She is a 26 year old at 38 6/7 weeks gestation, being admitted to Labor and Delivery for IOL for IUGR <5%. She had her most recent ultrasound at [facility], records are not yet here. 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 Her , Jose, is her for labor support. Her full history and physical was dictated by PANDA Garg on 02/25/2022. Please see this for details. 1. Covid + 12/23/21 2. Anxiety 3. Migraines with aura - on 80mg Propranolol daily (prescribed by her neurologist, recently decreased from BID d/t small for gestation). Monitor for bradycardia, hypoglycemia and respiratory depression X 48 hours. 4. Deric-112mcg Levothyroxine (TSH 0.93 and Free T4 1.25 on 01/20/22) 5. PCOS-on metformin (recently decreased from 1000mg BID to once a day d/t small for gestation) 6. Low-lying placenta - resolved, 2.6cm from OS on 01/03/22 7. Small for gestation - EFW 11% on 01/03 02/14: EFW 12%, normal fundal heights 8. Anemic - Hgb 7 something per pt report. Unable to find in transfer record. On PO iron and now 12.6 on 12/05. Ferritin 12 on 10/11 Hgb 13.4 02/14/2022 9. GBS +, Recommend Antibiotics in labor 10. IUGR noted on u/s done 03/03 at [place]. 5%. Dopplers WNL. IOL scheduled 03/06/22 11. BMI 33.7 pre- Flu: declines OB - H&P: Exam Physical Exam: Vital signs: Pulse BP Pulse Ox 90 130/77 97 03/06/22 07:46 03/06/22 07:46 03/06/22 07:39 Constitutional: Constitutional: no acute distress and cooperative Routine HEENT Exam: Head: Present atraumatic Routine Neck Exam: Neck: Present full ROM Detailed Neck Exam: Thyroids: Comments: Supple Routine Respiratory Exam: Respiratory: Present CTA bilaterally Routine Cardiovascular Exam: Cardiovascular: RRR Routine Abdominal Exam: Abdominal: Present soft; Absent tenderness Comments: Gravid Detailed Labor and Delivery Exam: Patient Gravid: yes Dilation (cm): 1 Effacement (%): 40 Cervix position: posterior Consistency: soft Tachysystole: No Contraction intensity: Mild Comments: Contractions: absent Fetus (Single): Station: -2 Heart Rate Baseline: 145 Monitor Accelerations: Present Monitor Decelerations: None Nursing Home Variability: Moderate (11-25) Routine Back/Spine/Pelvis Exam: Back/Spine: full ROM Routine Skin Exam: Present intact Routine Neurological Exam: Present alert, oriented X3 and normal speech Routine Psychiatric Exam: Present normal affect and normal thought process OB - Problem Based A/P Additional Plan (1) Encounter for induction of labor: Status: Acute (2) affected by growth restriction: Status: Acute (3) Group beta Strep positive: Status: Acute (4) Migraine with aura: Problem details: On propranolol 80mg. Decreased recently from BID to once daily. Status: Acute (5) Adult hypothyroidism: Problem details: Currently on Levothyroxine 112mg Status: Acute (6) History of COVID-19: Problem details: 12/23/2021 Status: Acute Plan ASSESSMENT:? 26 at 38 6/7 weeks gestation? complicated by:?Migraines w/ Aura, Covid + during , Hypothyroid, IUGR, GBS +, PCOS Labor type: Induced, early labor? Category 1 FHR pattern.?? Labor complicated by: GBS +? GBS positive? ? PLAN:? 1. Routine intrapartum cares as ordered. Plan induction with cytotec per protocol. Discussed pitocin shortage and plan to encourage labor with cytotec and cervadil and/or induction catheter if needed. Pitocin only if absolutely necessary.? 2. Monitoring per policy, continuous with IUGR 3. Planning unmedicated . Candidate for analgesia of choice if desired. Not a candidate for waterbirth with IUGR. May labor in the tub and delivery outside. 4. Patient encouraged to reposition and ambulate to promote physiologic labor and .? 5. GBS prophylaxis initiated for GBS positive status. Will treat with antibiotics per protocol. 6. On propranolol for migraines with aura during , managed by neurologist. It is recommended to monitor for bradycardia, hypoglycemia and respiratory depression X 48 hours post . 7. Anticipate Delivery/Labor/Induction Plan Plan: induction Induction method: per misoprostol protocol
[2022-03-06 09:32] LABS: SARS Antigen* negative (Negative)
[2022-03-06] MEDS: MAG HYDROX/ALUMINUM HYD/SIMETH 30 ML ORAL.SUSP PO (14:18)
[2022-03-06] MEDS: AMPICILLIN 2 GM in 0.9 % SODIUM CHLORIDE Mini-bag 100 ML IVPB (16:34)
[2022-03-06] MEDS: LACTATED RINGERS 1000 ML 1,000 ML 125 ML IV (16:36)
[2022-03-06 16:43] LABS: Basophils Percent Auto 0.2 % (0.0-3.0); Eosinophils Percent Auto 0.6 % (0.0-7.0); Hematocrit 38.1 % (33.0-51.0); Hemoglobin* 12.9 gm/dL (12.0-16.0); Immature Granulocytes Abs Auto 0.05 K/uL (0.00-0.30); Lymphocytes Percent Auto 12.7 % (20-44); Mean Corpuscular HGB Conc 34 gm/dL (32-36); Mean Corpuscular Hemoglobin 33 pg (26-34); Mean Corpuscular Volume 97 fL (80-100); Monocytes Percent Auto 6.2 % (0.0-11.0); Neutrophils Percent Auto 79.9 % (42.0-72.0); Platelet Count* 259 K/uL (140-440); RDW Coefficient of Variation % 13.5 % (11.5-15.5); Red Blood Count 3.95 m/uL (4.00-5.20); White Blood Count* 12.01 K/uL (4.50-11.00)
[2022-03-06 16:45] LABS: Slide Review Reflex No
--- NOTE | 2022-03-06 17:54 | PM.OBPNL ---
Subjective Date Seen: 03/06/22 Narrative: Felecia is a 26 yo at 38 6/7 weeks gestation here for IOL for IUGR. She is coping well with labor pain/contractions. She is currently being supported by her , Jose. She has received two doses of cytotec and spontaneous ruptured on her own at 1535. Contractions became increasing more intense following SROM. She has received 1 dose of penicillin for GBS status. She is breathing well through contractions. She would like to labor in the tub for comfort and pain management. SVE done prior to getting into tub.? Objective Exam: Vital signs stable, see nurse documentation ? Constitutional: Moderate distress, breathing well through contractions. Facial flushing. Abdomen: palpates mild at fundus with contractions and soft between ? Vital Signs: Last Vital Signs Temp 98.5 F 03/06/22 15:50 Pulse 83 03/06/22 17:41 Resp 18 03/06/22 15:50 BP 138/71 03/06/22 17:41 Pulse Ox 97 03/06/22 07:39 Pelvic Exam Dilation (cm): 1 Effacement (%): 60 Station: -2 Comments: Soft, mid-position Contractions Monitor mode: External Contraction frequency: 2 Contraction pattern: Irregular Contraction intensity: Mild Assessment Assessment: other (Early, induced) Station: -2 Amniotic Membrane Status: SROM (Clear) Status: Category l Heart Rate Baseline: 145 Marketing Automation Analyst Variability: Moderate (6-25) Monitor Accelerations: Present Monitor Decelerations: None Plan Plan: ASSESSMENT:? 26 at 38 6/7 weeks gestation? complicated by:?Migraines w/ Aura, Covid + during , Hypothyroid, IUGR, GBS +, PCOS Labor type: Induced, early labor? Category 1 FHR pattern.?? Labor complicated by: GBS +? GBS positive? ? PLAN:? 1. Routine intrapartum cares as ordered. Expectant management following SROM, discussed doing oral Cytotec if contractions space out. 2. Monitoring per policy, continuous with IUGR 3. Planning unmedicated . Candidate for analgesia of choice if desired. Not a candidate for waterbirth with IUGR. May labor in the tub and delivery outside. 4. Patient encouraged to reposition and ambulate to promote physiologic labor and .? 5. GBS prophylaxis initiated for GBS positive status. Will treat with antibiotics per protocol. Started with SROM. 6. Peds provider notified of patient labor, will update them as needed and plan for them at delivery. 7. Anticipate
[2022-03-06] MEDS: AMPICILLIN 1 GM in 0.9 % SODIUM CHLORIDE Mini-bag 100 ML IVPB (20:21)
[2022-03-07] VITALS (122 sets, daily range): BP systolic 90–180; BP diastolic 54–103; PULSE 82–134; RESP 15–22; TEMP 36.5–37.6; O2SAT 95–100
[2022-03-07] MEDS: AMPICILLIN 1 GM in 0.9 % SODIUM CHLORIDE Mini-bag 100 ML IVPB ×6 (00:40→20:10)
[2022-03-07] MEDS: miSOPROStoL 25 MCG/0.25 TABLET VAGINAL (00:52)
--- NOTE | 2022-03-07 00:56 | P.OBPN_ITS ---
Subjective Date Seen: 03/07/22 Narrative: Felecia is coping moderately well] with labor pain/contractions. She is c urrently being supported by her partner, jon Garcia, and RN]. Understands the current plan of care. Following SROM contractions became more intense and frequent. She requested an SVE at 1127pm. Contractions seemed less frequent. After SVE she was encouraged to do side lying release, get out of bed, try the toilet, and do abdominal lifts and tucks. She was agreeable to this. During side lying release, contractions were about every 5-7 minutes by manual timing, as the toco was not picking them up. She then got out of bed and contraction remained about 3-5 minutes apart, palpating more mild than previously. She would like to continue with position changes for comfort and pain management.?? Objective Vital Signs: Last Vital Signs Temp 98.4 F 03/06/22 17:40 Pulse 94 03/06/22 19:17 Resp 18 03/06/22 17:40 BP 143/60 H 03/06/22 19:17 Pulse Ox 95 03/07/22 00:40 Pelvic Exam Dilation (cm): 1 Effacement (%): 70 Station: -2 Contractions Monitor mode: External Contraction pattern: Irregular Contraction intensity: Mild Assessment Assessment: induction ongoing and other (Early, induced) Station: -2 Amniotic Membrane Status: SROM (Clear) Status: Category l Heart Rate Baseline: 155 Drill Setup Operator Variability: Moderate (6-25) Monitor Accelerations: Present Monitor Decelerations: None Labor Progress: Contractions irregular about every 3-7 minutes. Plan Plan: 1. Routine intrapartum cares as ordered. Recommended oral cytotec, patient agreeable. 2. Monitoring per policy, continuous with IUGR, may consider internal monitors if unable to continually trace due to position and maternal body habitus. 3. Planning unmedicated . Candidate for analgesia of choice if desired. Has considered epidural, fentanyl, or nitrous for labor pain. 4. Patient encouraged to reposition and ambulate to promote physiologic labor and .? 5. GBS prophylaxis initiated for GBS positive status. Continue until . 6. Peds provider aware of patient labor, will update them as needed and plan for them at delivery. 7. Anticipate
--- NOTE | 2022-03-07 03:58 | PM.ANBPRC ---
[facility] Medical History (Updated 03/06/22 @ 08:07 by Jazmyn Curry CNM) Adult hypothyroidism Anxiety History of COVID-19 Migraine with aura PCOS (polycystic ovarian syndrome) Surgical History (Updated 01/31/22 @ 16:28 by Nimco Lee CNM) H/O knee surgery History of appendectomy History of cholecystectomy [place] teeth extracted Family History (Updated 01/31/22 @ 13:54 by Nimco Lee CNM) Mother Endometriosis Uterine cancer Father Healthy adult Paternal Grandmother Uterine cancer H/O breast biopsy Maternal Grandmother Ovarian cancer Graves disease Hypothyroid Paternal Grandfather High blood pressure Stroke Social History Smoking Status: Never smoker Little interest or pleasure in doing things: not at all Feeling down, depressed, or hopeless: not at all Meds Home Medications and Allergies Home Medications Medication Instructions Recorded Confirmed Type docosahexaenoic acid 200 mg 200 mg PO QDAY 01/31/22 03/06/22 History capsule ( DHA) ferrous gluconate 324 mg (38 mg 324 mg PO QDAY 01/31/22 03/06/22 History iron) tablet levothyroxine 112 mcg capsule 112 mcg PO QDAY 01/31/22 03/06/22 History metformin 1,000 mg tablet 1,000 mg PO QDAY 01/31/22 03/06/22 History propranolol 80 mg capsule,24 80 mg PO QDAY 01/31/22 03/06/22 History hr,extended release Allergies Allergy/AdvReac Type Severity Reaction Status Date / Time clindamycin Allergy Severe Anaphylaxis Verified 03/04/22 10:09 ciprofloxacin AdvReac Severe Nose Bleed Verified 03/04/22 10:09 Results Labs Labs: Laboratory Results - last 24 hr 03/06/22 03/06/22 03/06/22 09:10 16:36 16:36 WBC 12.01 H RBC 3.95 L Hgb 12.9 Hct 38.1 MCV 97 MCH 33 MCHC 34 RDW Coeff of Shaun 13.5 Plt Count 259 Neut % (Auto) 79.9 H Lymph % (Auto) 12.7 L [place] % (Auto) 6.2 Eos % (Auto) 0.6 Baso % (Auto) 0.2 Neut # (Auto) 9.60 H Lymph # (Auto) 1.50 [place] # (Auto) 0.70 Eos # (Auto) 0.10 Baso # (Auto) 0.00 Abs Immat Gran (auto) 0.05 SARS-CoV-2 Ag (Rapid) negative Blood Type O Positive Antibody Screen NEGATIVE Vital Signs Vital Signs: Last Vital Signs Temp 98.3 F 03/07/22 02:40 Pulse 107 H 03/07/22 03:57 Resp 18 03/07/22 02:40 BP 119/73 03/07/22 03:57 Pulse Ox 99 03/07/22 03:47 Weight: 114.759 kg Height: 170.18 cm Anesthesia Procedures Epidural Insertion Patient Location: OB Start Time: 03:30 Stop Time: 04:30 Start Date: 03/07/22 Stop Date: 03/07/22 Reason for Block: primary anesthetic Patient Position: sitting Performed By: Jong Arias Preanesthetic Checklist: IV checked, risks and benefits discussed, surgical consent, monitors and equipment checked, pre-op evaluation, timeout performed and anesthesia consent Prep: chlorhexidine gluconate Monitoring: blood pressure monitoring, continuous pulse oximetry and heart rate Approach: midline Vertebral Space: lumbar (1-5) Needle Type: Tuohy needle Injection Technique: continuous catheter (continuous catheter) Needle gauge: 17 Needle Length (cm): 10 cm Needle Insertion Depth (cm): 6 Catheter Gauge: 19 Catheter Type: multi-orifice Catheter at skin depth (cm): 12 Test Dose Result: negative and lidocaine 1.5% with epinephrine 1 to 200,000
[2022-03-07] MEDS: LIDOCAINE 1% MDV 20 ML INJECTION ×2 (04:01→21:15)
--- NOTE | 2022-03-07 04:16 | P.OBPN_ITS ---
Subjective Date Seen: 03/07/22 Narrative: Felecia is coping moderately well with labor pain/contractions. She is cu rrently being supported by her , jon Garcia, and labor nurse. She is requesting an epidural. She initially stated her fear was that she would give up on all the hard work she did to prepare for labor and desire for unmedicated . She has tried multiple position changes, ambulated the oliva, birthing ball, toilet, and hands and knees. She states she doesn't feel she can cope with the pain any longer.. She was very willing to try nitrous first, but this did not work well for her. She declines IV fentanyl. After all these different comfort measures she now feels certain she wants an epidural, Anesthesia notified.. Objective Exam: Vital signs stable, see nurse documentation ? Constitutional: Moderate distress, breathing well through contractions. Redirects easily. Abdomen: palpates mild/moderate at fundus with contractions and completely relaxes between contractions, soft. ? Vital Signs: Last Vital Signs Temp 98.3 F 03/07/22 02:40 Pulse 97 03/07/22 04:11 Resp 18 03/07/22 02:40 BP 111/74 03/07/22 04:11 Pulse Ox 99 03/07/22 03:47 Pelvic Exam Dilation (cm): 3 Effacement (%): 80 Station: -1 Contractions Monitor mode: External Contraction frequency: 5 Contraction pattern: Irregular Contraction intensity: Mild Assessment Assessment: induction ongoing and other (Early, induced) Station: -2 Amniotic Membrane Status: SROM (Clear) Status: Category l Heart Rate Baseline: 145 Fpc Variability: Moderate (6-25) Monitor Accelerations: Present Monitor Decelerations: None Plan Plan: 1. Routine intrapartum cares as ordered. 2. Monitoring per policy, continuous with IUGR, may consider internal monitors if unable to continually trace due to position and maternal body habitus. 3. Plan for epidural for pain management. 4. Patient encouraged to reposition to promote physiologic labor and .? 5. GBS prophylaxis initiated for GBS positive status. Continue until . 6. Peds provider aware of patient labor, will update them as needed and plan for them at delivery. 7. Anticipate
[2022-03-07] MEDS: LACTATED RINGERS 1000 ML 1,000 ML 999 ML IV (04:25)
[2022-03-07] MEDS: LIDOCAINE 2% (PF) 5 ML VIAL EPIDURAL ×4 (05:03→19:41)
[2022-03-07] MEDS: miSOPROStoL 25 MCG/0.25 TABLET 50 MCG PO (05:35)
[2022-03-07] MEDS: PHENYLEPHRINE 100 MCG/ML SYRINGE IVP ×2 (06:15→06:23)
--- NOTE | 2022-03-07 07:27 | PM.OBPNVD1 ---
OB - PN: Obj Exam Physical Exam: Vital signs: Temp Pulse Resp BP Pulse Ox 98.6 F 109 H 18 138/64 97 03/07/22 07:22 03/07/22 07:06 03/07/22 02:40 03/07/22 07:06 03/07/22 04:40 OB - PN: Obj Data Labs Labs: Laboratory Results - last 24 hr 03/06/22 03/06/22 03/06/22 09:10 16:36 16:36 WBC 12.01 H RBC 3.95 L Hgb 12.9 Hct 38.1 MCV 97 MCH 33 MCHC 34 RDW Coeff of Shaun 13.5 Plt Count 259 Neut % (Auto) 79.9 H Lymph % (Auto) 12.7 L [place] % (Auto) 6.2 Eos % (Auto) 0.6 Baso % (Auto) 0.2 Neut # (Auto) 9.60 H Lymph # (Auto) 1.50 [place] # (Auto) 0.70 Eos # (Auto) 0.10 Baso # (Auto) 0.00 Abs Immat Gran (auto) 0.05 SARS-CoV-2 Ag (Rapid) negative Blood Type O Positive Antibody Screen NEGATIVE OB - PN: A/P Vaginal Delivery Assessment and Plan (1) Encounter for induction of labor: Status: Acute (2) affected by growth restriction: Status: Acute (3) Group beta Strep positive: Status: Acute (4) Migraine with aura: Problem details: On propranolol 80mg. Decreased recently from BID to once daily. Status: Acute (5) Adult hypothyroidism: Problem details: Currently on Levothyroxine 112mg Status: Acute (6) History of COVID-19: Problem details: 12/23/2021 Status: Acute
--- NOTE | 2022-03-07 07:39 | P.OBPN_ITS ---
Subjective Date Seen: 03/07/22 Objective Vital Signs: Last Vital Signs Temp 98.6 F 03/07/22 07:22 Pulse 109 H 03/07/22 07:36 Resp 18 03/07/22 02:40 BP 116/57 L 03/07/22 07:36 Pulse Ox 97 03/07/22 04:40 Pelvic Exam Dilation (cm): 3 Effacement (%): 80 Station: -1 Contractions Monitor mode: Internal (IUCP placed) Contraction frequency: 3 (Q 3-4, MVU not adequate) Contraction pattern: Regular Contraction intensity: Mild Assessment Assessment: induction ongoing Station: -2 Amniotic Membrane Status: SROM (Clear) Status: Category l Heart Rate Baseline: 145 Skilled Nursing Variability: Moderate (6-25) Monitor Accelerations: Present Monitor Decelerations: None Labor Progress: She is now comfortable in bed with an epidural but still having some pain on the left side. She has slept some. Contractions not tracing. Discussed placing an IUCP and FSE to be able to adequately trace contractions and baby as both have been difficult to monitor at times throughout the night. She would like to wait on the FSE at this time but agrees to having the IUCP placed. SVE unchanged from previous exam. Will evaluate after IUCP to determine next place (most likely additional cytotec or pitocin). She is agreeable to this plan. RN repositioned her on her left side.
[2022-03-07] MEDS: ROPIVACAINE 0.2% 100 ml 100 ML 12 MG EPIDURAL ×2 (10:24→16:13)
[2022-03-07] MEDS: LACTATED RINGERS 1000 ML 1,000 ML 125 ML IV ×2 (11:07→20:09)
--- NOTE | 2022-03-07 13:35 | PM.OBPNL ---
Subjective Date Seen: 03/07/22 Objective Vital Signs: Last Vital Signs Temp 98.4 F 03/07/22 13:14 Pulse 104 H 03/07/22 13:21 Resp 18 03/07/22 13:14 BP 118/70 03/07/22 13:21 Pulse Ox 97 03/07/22 04:40 Pelvic Exam Dilation (cm): 8 Effacement (%): 90 Station: 0 Contractions Monitor mode: Internal (IUCP placed) Contraction Frequency: Q4-5 min Contraction pattern: Regular Contraction intensity: Moderate Assessment Assessment: active labor and induction ongoing Station: 0 Amniotic Membrane Status: SROM (Clear) Status: Category l Heart Rate Baseline: 145 Natural History Collections Curator Variability: Moderate (6-25) Monitor Accelerations: Present Monitor Decelerations: None Labor Progress: Her epidural is not working completely. She is feeling pain with contractions on her left side. No pain on her right side. Have tried rebolusing epidural and many position changes. She had planned to use the breast pump to encourage labor but has been unable to so far because of the pain with sitting up and attempting to fix the incomplete epidural pain relief. SVE to make plan for the next steps in the induction was 8cm/90%/0. Continue with expectant management and expect . Will reevaluate the need for additional induction interventions as needed.
[2022-03-07] MEDS: fentaNYL 100 MCG/2 ML inj EPIDURAL ×2 (13:41→19:41)
[2022-03-07] MEDS: SIMETHICONE 80 MG TAB.CHEW PO (16:25)
[2022-03-07] MEDS: ACETAMINOPHEN 500 MG TABLET 1000 MG PO (16:26)
[2022-03-07] MEDS: OXYTOCIN 30 unit/500 ML in NS 30 UNIT/500 ML BAG IVPB (18:25)
[2022-03-07] MEDS: CALCIUM CARBONATE 500 MG CHEW PO (19:41)
--- NOTE | 2022-03-07 22:03 | PM.FPPN ---
Progress Note: A&P Assessment and plan (1) state: Status: Acute Subjective Subjective Date Seen: 03/07/22 Principal diagnosis: delivery Interval history: Asked to attend delivery due to maternal use of beta alexey in . Regular provider out of hospital and not present. Baby is known IUGR. Concerns for infant is bradycardia and hypoglycemia with use of maternal beta alexey in . spontaneously cried after delivery and brief evaluation reveals healthy and no resuscitation needed. Exam Const: Vital Signs, click to edit/add: Vital Signs - 24 hr 03/07/22 00:40 03/07/22 02:40 03/07/22 02:40 Temperature Pulse Rate 94 Respiratory Rate Blood Pressure 105/64 Pulse Oximetry 95 03/07/22 02:40 03/07/22 03:37 03/07/22 03:42 Temperature 98.3 F Pulse Rate Respiratory Rate 18 Blood Pressure Pulse Oximetry 99 99 03/07/22 03:45 03/07/22 03:45 03/07/22 03:47 Temperature Pulse Rate 102 H Respiratory Rate Blood Pressure 142/101 H 153/103 H Pulse Oximetry 03/07/22 03:47 03/07/22 03:47 03/07/22 03:50 Temperature Pulse Rate 104 H Respiratory Rate Blood Pressure 126/85 Pulse Oximetry 99 03/07/22 03:50 03/07/22 03:51 03/07/22 03:51 Temperature Pulse Rate 109 H 103 H Respiratory Rate Blood Pressure 114/77 Pulse Oximetry 03/07/22 03:55 03/07/22 03:57 03/07/22 03:57 Temperature Pulse Rate 103 H 107 H Respiratory Rate Blood Pressure 117/65 119/73 Pulse Oximetry 03/07/22 03:59 03/07/22 03:59 03/07/22 04:01 Temperature Pulse Rate 100 Respiratory Rate Blood Pressure 113/73 113/78 Pulse Oximetry 03/07/22 04:01 03/07/22 04:06 03/07/22 04:11 Temperature Pulse Rate 97 99 97 Respiratory Rate Blood Pressure 124/80 111/74 Pulse Oximetry 03/07/22 04:18 03/07/22 04:18 03/07/22 04:20 Temperature Pulse Rate 103 H Respiratory Rate Blood Pressure 126/70 Pulse Oximetry 100 03/07/22 04:23 03/07/22 04:23 03/07/22 04:25 Temperature Pulse Rate 108 H Respiratory Rate Blood Pressure 135/79 Pulse Oximetry 99 03/07/22 04:27 03/07/22 04:27 03/07/22 04:30 Temperature Pulse Rate 108 H Respiratory Rate Blood Pressure 159/71 H Pulse Oximetry 99 03/07/22 04:32 03/07/22 04:32 03/07/22 04:35 Temperature Pulse Rate 100 Respiratory Rate Blood Pressure 141/98 H Pulse Oximetry 100 03/07/22 04:36 03/07/22 04:36 03/07/22 04:38 Temperature Pulse Rate 98 Respiratory Rate Blood Pressure 131/90 H 128/87 Pulse Oximetry 03/07/22 04:38 03/07/22 04:40 03/07/22 04:40 Temperature Pulse Rate 108 H 103 H Respiratory Rate Blood Pressure 128/92 H Pulse Oximetry 03/07/22 04:40 03/07/22 04:42 03/07/22 04:44 Temperature Pulse Rate 107 H Respiratory Rate Blood Pressure 116/66 105/63 Pulse Oximetry 97 03/07/22 04:44 03/07/22 04:46 03/07/22 04:46 Temperature Pulse Rate 106 H 102 H Respiratory Rate Blood Pressure 110/60 Pulse Oximetry 03/07/22 04:48 03/07/22 04:48 03/07/22 04:55 Temperature Pulse Rate 105 H Respiratory Rate Blood Pressure 109/59 L 110/78 Pulse Oximetry 03/07/22 04:55 03/07/22 04:58 03/07/22 04:58 Temperature Pulse Rate 107 H 108 H Respiratory Rate Blood Pressure 110/71 Pulse Oximetry 03/07/22 05:04 03/07/22 05:04 03/07/22 05:08 Temperature Pulse Rate 104 H Respiratory Rate Blood Pressure 114/64 116/71 Pulse Oximetry 03/07/22 05:08 03/07/22 05:36 03/07/22 05:36 Temperature Pulse Rate 108 H 100 Respiratory Rate Blood Pressure 105/75 Pulse Oximetry 03/07/22 05:51 03/07/22 05:51 03/07/22 06:06 Temperature Pulse Rate 82 Respiratory Rate Blood Pressure 100/59 L 99/59 L Pulse Oximetry 03/07/22 06:06 03/07/22 06:21 03/07/22 06:21 Temperature Pulse Rate 94 97 Respiratory Rate Blood Pressure 92/60 Pulse Oximetry 03/07/22 06:36 03/07/22 06:36 03/07/22 06:51 Temperature Pulse Rate 91 Respiratory Rate Blood Pressure 90/56 L 91/63 Pulse Oximetry 03/07/22 06:51 03/07/22 07:06 03/07/22 07:06 Temperature Pulse Rate 89 109 H Respiratory Rate Blood Pressure 138/64 Pulse Oximetry 03/07/22 07:36 03/07/22 07:52 03/07/22 07:52 Temperature Pulse Rate 109 H 106 H Respiratory Rate Blood Pressure 116/57 L 105/63 Pulse Oximetry 03/07/22 08:08 03/07/22 08:08 03/07/22 08:21 Temperature Pulse Rate 105 H Respiratory Rate Blood Pressure 122/59 L 107/55 L Pulse Oximetry 03/07/22 08:21 03/07/22 08:36 03/07/22 08:36 Temperature Pulse Rate 113 H 108 H Respiratory Rate Blood Pressure 116/60 Pulse Oximetry 03/07/22 08:51 03/07/22 08:51 03/07/22 09:06 Temperature Pulse Rate 110 H Respiratory Rate Blood Pressure 118/64 119/67 Pulse Oximetry 03/07/22 09:06 03/07/22 09:21 03/07/22 09:21 Temperature Pulse Rate 116 H 108 H Respiratory Rate Blood Pressure 113/61 Pulse Oximetry 03/07/22 09:37 03/07/22 09:37 03/07/22 09:52 Temperature Pulse Rate 111 H 107 H Respiratory Rate Blood Pressure 121/61 124/63 Pulse Oximetry 03/07/22 10:07 03/07/22 10:07 03/07/22 10:21 Temperature Pulse Rate 111 H Respiratory Rate Blood Pressure 132/87 129/90 H Pulse Oximetry 03/07/22 10:21 03/07/22 10:36 03/07/22 10:36 Temperature Pulse Rate 115 H 110 H Respiratory Rate Blood Pressure 97/54 L Pulse Oximetry 03/07/22 08:40 03/07/22 10:30 03/07/22 10:52 Temperature 98.3 F 98.3 F Pulse Rate Respiratory Rate 16 16 Blood Pressure 113/60 Pulse Oximetry 03/07/22 10:52 03/07/22 11:06 03/07/22 11:06 Temperature Pulse Rate 101 H 106 H Respiratory Rate Blood Pressure 111/58 L Pulse Oximetry 03/07/22 11:52 03/07/22 11:52 03/07/22 12:06 Temperature Pulse Rate 100 101 H Respiratory Rate Blood Pressure 110/65 121/78 Pulse Oximetry 03/07/22 12:22 03/07/22 12:22 03/07/22 12:36 Temperature Pulse Rate 106 H Respiratory Rate Blood Pressure 114/60 109/62 Pulse Oximetry 03/07/22 12:36 03/07/22 12:51 03/07/22 12:51 Temperature Pulse Rate 112 H 111 H Respiratory Rate Blood Pressure 102/66 Pulse Oximetry 03/07/22 11:41 03/07/22 13:14 03/07/22 13:14 Temperature 98.1 F 98.4 F Pulse Rate Respiratory Rate 18 18 Blood Pressure Pulse Oximetry 03/07/22 13:21 03/07/22 13:21 03/07/22 13:36 Temperature Pulse Rate 104 H Respiratory Rate Blood Pressure 118/70 138/71 Pulse Oximetry 03/07/22 13:36 03/07/22 13:47 03/07/22 13:47 Temperature Pulse Rate 99 106 H Respiratory Rate Blood Pressure 162/84 H Pulse Oximetry 03/07/22 13:51 03/07/22 13:51 03/07/22 13:57 Temperature Pulse Rate 104 H Respiratory Rate Blood Pressure 160/83 H 162/85 H Pulse Oximetry 03/07/22 13:57 03/07/22 14:06 03/07/22 14:06 Temperature Pulse Rate 110 H 115 H Respiratory Rate Blood Pressure 152/81 H Pulse Oximetry 03/07/22 14:14 03/07/22 14:22 03/07/22 14:22 Temperature 97.7 F Pulse Rate 110 H Respiratory Rate 18 Blood Pressure 139/82 Pulse Oximetry 03/07/22 14:36 03/07/22 14:36 03/07/22 14:51 Temperature Pulse Rate 100 110 H Respiratory Rate Blood Pressure 144/90 H 151/91 H Pulse Oximetry 03/07/22 15:07 03/07/22 15:07 03/07/22 15:22 Temperature Pulse Rate 112 H Respiratory Rate Blood Pressure 143/88 H 145/81 H Pulse Oximetry 03/07/22 15:22 03/07/22 15:36 03/07/22 15:36 Temperature Pulse Rate 104 H 109 H Respiratory Rate Blood Pressure 148/91 H Pulse Oximetry 03/07/22 15:51 03/07/22 16:06 03/07/22 16:06 Temperature Pulse Rate 109 H 134 H Respiratory Rate Blood Pressure 144/82 H 143/84 H Pulse Oximetry 03/07/22 16:21 03/07/22 16:21 03/07/22 16:36 Temperature Pulse Rate 131 H Respiratory Rate Blood Pressure 145/82 H 147/79 H Pulse Oximetry 03/07/22 16:36 03/07/22 16:05 03/07/22 16:51 Temperature 99.3 F Pulse Rate 123 H Respiratory Rate 18 Blood Pressure 144/83 H Pulse Oximetry 03/07/22 16:51 03/07/22 17:06 03/07/22 17:06 Temperature Pulse Rate 121 H 112 H Respiratory Rate Blood Pressure 145/81 H Pulse Oximetry 03/07/22 17:21 03/07/22 17:21 03/07/22 17:37 Temperature Pulse Rate 118 H Respiratory Rate Blood Pressure 140/77 H 140/78 H Pulse Oximetry 03/07/22 17:37 03/07/22 17:51 03/07/22 18:06 Temperature Pulse Rate 111 H 109 H 108 H Respiratory Rate Blood Pressure 140/78 H 130/89 Pulse Oximetry 03/07/22 18:21 03/07/22 18:21 03/07/22 18:51 Temperature Pulse Rate 115 H Respiratory Rate Blood Pressure 141/87 H 143/88 H Pulse Oximetry 03/07/22 18:51 03/07/22 19:06 03/07/22 19:06 Temperature Pulse Rate 109 H 125 H Respiratory Rate Blood Pressure 143/90 H Pulse Oximetry 03/07/22 19:36 03/07/22 19:36 03/07/22 19:39 Temperature Pulse Rate 123 H Respiratory Rate Blood Pressure 180/89 H 145/63 H Pulse Oximetry 03/07/22 19:39 03/07/22 19:40 03/07/22 19:42 Temperature Pulse Rate 116 H 109 H 115 H Respiratory Rate Blood Pressure 128/58 L 129/68 Pulse Oximetry 03/07/22 19:44 03/07/22 19:46 03/07/22 17:28 Temperature 98.7 F Pulse Rate 116 H 113 H Respiratory Rate 18 Blood Pressure 117/61 121/57 L Pulse Oximetry 03/07/22 19:48 03/07/22 19:54 03/07/22 18:37 Temperature 98.5 F Pulse Rate 115 H 115 H Respiratory Rate 18 Blood Pressure 125/57 L 135/77 Pulse Oximetry 03/07/22 19:59 03/07/22 19:59 03/07/22 20:04 Temperature Pulse Rate 120 H 113 H Respiratory Rate Blood Pressure 145/83 H 136/98 H Pulse Oximetry 03/07/22 20:21 03/07/22 21:21 03/07/22 21:21 Temperature Pulse Rate 133 H 121 H Respiratory Rate Blood Pressure 142/84 H 133/70 Pulse Oximetry 03/07/22 21:36 03/07/22 21:36 03/07/22 21:51 Temperature Pulse Rate 120 H Respiratory Rate Blood Pressure 145/85 H 139/81 Pulse Oximetry 03/07/22 21:51 03/07/22 07:22 Temperature 98.6 F Pulse Rate 110 H Respiratory Rate Blood Pressure Pulse Oximetry
--- NOTE | 2022-03-07 22:16 | P.OBPRC_ITS ---
Procedure Delivery date: 03/07/22 Procedure Done: Global Procedure Details: Patient is a 26 year-old G1 now P1 admitted on 03/06/2022 at 38 Weeks, 6 Days gestation for IOL for IUGR ,5%.? Cervical exam on admission was 1 cm/40 % effaced/-2 station with membranes intact in vertex presentation.? Contractions were absent.? heart rate demonstrated baseline 145 bpm with moderate variability, + accelerations, - decelerations; a category 1 tracing.? SROM occurred on 03/06 at 1736 with clear fluid.?She received 3 doses of 25mg vaginal Cytotec and 1 dose of oral 50mg Cytotec. She received an epidural around 0500. It worked completely initially but had to be rebolused multiple times throughout labor. Boluses usually gave her 2-3 hours of relief before she stared again feeling painful contractions. She was offered to have to epidural replaced but was concerned about that and declined. At 0720 she was unchanged from her previous assessment. At that time a IUCP was placed as contractions were not able to be monitored. She had inadequate contractions at that time. They were moderately strong but only every 3-5 min apart. She progressed to 8cm at 1305. She was allowed to continue to labor. She continued to struggle getting complete coverage with her epidural and continued to labor. At 1730 she was a lip on her right side. An hours later she was not feeling an increase in pressure and had very minimal contractions in intensity and frequency. She was offered Pitocin and accepted. She was finally found to be complete and baby was at a +2 station. she was able to effectively push and delivered vaginally a baby girl. ?? Labor Analgesia:? Epidural? ?? Pitocin:? Yes, for induction and AMTSL? ?? Labor onset:? 1305? ?? Complete:? unknown? ?? Pushing:? 2058? ?? heart tones during second stage were in the 150-160 with good variability but unable to get a tracing to adequately interpret the tracing.? ?? At 2109 a viable female delivered in vertex DEREK presentation over intact perineum via spontaneous vaginal delivery.? Infant was placed on maternal abdomen.? Cord was clamped and cut after a 10 min delay when the cord had completely stopped pulsing per the patients request.? Nose and mouth were bulb suctioned.? weight pending.? 8 at 1 minute and 9 at 5 minutes.? Shoulder dystocia: no.? Nuchal cord: no.? ?? Placenta delivered spontaneously and complete at 2123 with a 3 vessel cord.? ?? Mother and were stable after delivery.? ?? Lacerations:? 2nd degree, repaired with 3.0 Vicryl.? ?? Blood loss: 75 mL.? Blood loss measurement type: QBL? Sponge and needles counts are correct.? Events: Labor Induction, Covid Infection in and Other (IUGR) Intrapartal Events: Labor Induction, ROM >18 Hours and Anesthesia Complications (epidural stopped working. multiple boluses attempted but in the second stage no relief present) Induction method: per misoprostol protocol (misoprostol then pitocin induction) Delivery augmentation: pitocin Delivery monitor: external FHT and internal uterine Route of delivery: Episiotomy description: None Laceration description: Perineal - 2nd Degree Delivery repair: Vicryl Estimated blood loss (mL): 75 Anesthesia type: Epidural Disposition: floor [place] Gender: Female presentation: vertex Placental Delivery Description: Spontaneous Cord Description: 3 Vessels OB Vag Delivery Procedures Additional Procedures NST: Yes Laceration Repair: Yes
[2022-03-07] MEDS: IBUPROFEN 600 MG TABLET PO (23:20)
[2022-03-08] MEDS: ACETAMINOPHEN 500 MG TABLET 1000 MG PO ×2 (01:37→08:26)
[2022-03-08 04:05] VITALS: BP 121/80; PULSE 80; RESP 15; TEMP 36.7; O2SAT 96
[2022-03-08] MEDS: IBUPROFEN 600 MG TABLET PO ×3 (05:21→19:39)
--- NOTE | 2022-03-08 08:07 | PM.OBPNVD1 ---
OB - PN:Subj Subjective Time Seen by Provider: 07:40 Date Seen: 03/08/22 Interval history: Into room for introductions, assess pt, and assume care. Felecia is a 26 year-old G1 now P1 admitted on 03/06/2022 at 38 Weeks, 6 Days gestation for IOL for IUGR ,5%. She had an uncomplicated vaginal delivery. She delivered a viable female . She is breast feeding, and it is going well per pt. the patient has done well. Pain is well controlled with tylenol and ibuprofen. She has been up to use the toilet, urinating with out concern. Has not had a BM yet, feels like she needs to, but is scared it will be too painful. Discussed stool softeners and peribottle use. Pt requested Dermoplast to numb the area, but we do not have that in house. Reassurance given. [place]ia is small and no clots per pt. Fundus firm at u/2. Bipedal edema +1. Jose supportive at bedside. ?? Patient comments OB post-: no complaints, pain well controlled, tolerating diet and flatus present [place] infant status: [place] feeding status: exclusively OB - PN: Obj Exam Physical Exam: Vital signs: Temp Pulse Resp BP Pulse Ox O2 Del Method 98.0 F 80 15 121/80 96 03/08/22 04:05 03/08/22 04:05 03/08/22 04:05 03/08/22 04:05 03/08/22 04:05 03/08/22 04:05 Constitutional: Constitutional: no acute distress Routine HEENT Exam: Head: Present normocephalic Eye: Present normal appearance Routine Neck Exam: Neck: Present full ROM Routine Chest/Breast/Axilla Exam: Comments: Breasts soft & filling, nipples normal to inspection, no cracking or erythema Routine Respiratory Exam: Respiratory: Present CTA bilaterally Routine Cardiovascular Exam: Cardiovascular: Present RRR Routine Abdominal Exam: Abdominal: Present normal bowel sounds, soft and tenderness Fundus: Present firm (u/2) Comments: normoactive bowel sounds Routine Exam: External: Present normal external exam Comments: Deferred - no concerns per pt Routine Extremities Exam: Extremities: Present full ROM and pedal edema (+1) Routine Back/Spine/Pelvis Exam: Back/Spine: Present full ROM Routine Skin Exam: Skin: Present dry, intact, normal color and warm; Absent rash Routine Neurological Exam: Neurological: Present alert and oriented X3 Detailed Neurological Exam: Coma Scale: Eye Opening: Spontaneous (4) Verbal Response: Orientated (5) Routine Psychiatric Exam: Psychiatric: Present normal affect, normal thought process, cooperative, good insight and good judgment OB - PN: A/P Vaginal Delivery Assessment and Plan (1) state: Status: Acute (2) Lactating mother: Status: Acute (3) Migraine with aura: Problem details: On propranolol 80mg. Decreased recently from BID to once daily. Status: Acute (4) Adult hypothyroidism: Problem details: Currently on Levothyroxine 112mg Status: Acute Plan Assessment/Plan 26 yo Day 1 Routine care support if needed Plan to discharge home tomorrow Plan day: 1 Plan: routine care
[2022-03-08] MEDS: DOCUSATE SODIUM 100 MG CAPSULE PO (08:27)
[2022-03-08 08:30] VITALS: BP 130/84; PULSE 90; RESP 16; TEMP 36.7; O2SAT 96
[2022-03-08 12:00] VITALS: BP 135/86; PULSE 84; RESP 16; TEMP 36.9; O2SAT 97
[2022-03-08] MEDS: MAG HYDROX/ALUMINUM HYD/SIMETH 30 ML ORAL.SUSP PO (14:10)
[2022-03-08 16:34] VITALS: BP 119/81; PULSE 92; RESP 16; TEMP 36.2; O2SAT 97
[2022-03-08 19:46] VITALS: BP 118/79; PULSE 87; RESP 15; TEMP 36.6
[2022-03-09] MEDS: ACETAMINOPHEN 500 MG TABLET 1000 MG PO ×4 (00:18→19:41)
[2022-03-09] MEDS: IBUPROFEN 600 MG TABLET PO ×3 (03:20→17:01)
[2022-03-09 03:40] VITALS: BP 121/78; PULSE 86; RESP 16; TEMP 36.8
[2022-03-09] MEDS: DOCUSATE SODIUM 100 MG CAPSULE PO (07:39)
[2022-03-09 07:40] VITALS: BP 119/83; PULSE 91; RESP 16; TEMP 36.7; O2SAT 96
--- NOTE | 2022-03-09 08:43 | P.DS_ITS ---
DS: Providers Provider Time Seen by Provider: 08:44 Date Seen: 03/09/22 Date of admission: 03/06/22 06:58 Primary care physician: Not a Local Provider Admitting Clinician: Juju Willingham CNM Attending Physician on discharge: Lyn Garg CNM Date of Discharge: 03/09/22 DS: Diagnosis Discharge Diagnosis (1) state: Status: Acute (2) Lactating mother: Status: Acute (3) PCOS (polycystic ovarian syndrome): Status: Acute Problem details: On metformin (4) Migraine with aura: Status: Acute Problem details: On propranolol 80mg. Decreased recently from BID to once daily. (5) Adult hypothyroidism: Status: Acute Problem details: Currently on Levothyroxine 112mg Exam Const: Vital Signs, click to edit/add: Vital Signs - 24 hr 03/08/22 19:46 03/08/22 12:00 03/08/22 16:34 Temperature 97.9 F 98.4 F 97.2 F L Pulse Rate [Blood Pressure Cuff] 87 84 92 Respiratory Rate 15 16 16 Blood Pressure [Le ft Arm] 118/79 135/86 119/81 Pulse Oximetry 97 97 Oxygen Delivery Me thod Room Air Room Air 03/09/22 03:40 03/09/22 07:40 Temperature 98.2 F 98.0 F Pulse Rate [Blood Pressure Cuff] 86 91 Respiratory Rate 16 16 Blood Pressure [Le ft Arm] 121/78 119/83 Pulse Oximetry 96 Oxygen Delivery Me thod Room Air Documenting provider has reviewed patient's vital signs: yes Common normals: no apparent distress, oriented x3, healthy appearing, alert and well nourished General appearance: cooperative, well kempt and well developed Orientation/consciousness: Yes awake, Yes oriented to person, Yes oriented to place and Yes oriented to time HENMT: Common normals: normocephalic and external nose normal Head and scalp: normocephalic Nose: external nose normal Eye: General eye: normal appearance of both eyes Neck & C-Spine: Common normals: full ROM and supple General: normal visual inspection Cervical spine: cervical ROM normal Chest: Common normals: inspection of chest normal and palpation of chest normal Chest: symmetrical chest wall rise Resp: Common normals: normal respiratory effort, no retractions, no use of accessory muscles and clear to auscultation bilaterally Effort & inspection: able to speak in complete sentences Auscultation: clear to auscultation bilaterally Cardio: Common normals: regular rate and regular rhythm Rate: regular rate Rhythm: regular rhythm GI: Common normals: Normal to inspection, nondistended, normoactive bowel sounds present and soft to palpation Inspection: normal to inspection Auscultation: normoactive bowel sounds Palpation: soft and tender : Common normals: external appearance normal Bimanual exam- vagina & uterus: other (Involuting) Uterus: U/2 and firm Lochia: scant Back & Pelvis: Common normals: thoracic and lumbar spine normal to inspection and no thoracic nor lumbar tenderness Thoracic spine/upper back: normal to inspection and thoracic ROM normal Lumbar spine/lower back: normal to inspection and lumbar ROM normal Extremity: Common normals: normal to inspection and full ROM General: normal exam except as noted Neuro: Common normals: oriented x3 Sensorium/orientation: awake, alert, oriented to person, oriented to place and oriented to time Speech: speech normal Psych: Common normals: mental status grossly normal, thought process normal and speech normal Appearance: grossly normal and well kempt Attitude: calm and engaged Activity/motor behavior: appropriate eye contact Speech: normal speech Thought process: normal thought process Thought content: normal thought content Attention/concentration: attention grossly intact Memory/cognition: memory grossly intact Insight: insight good Judgement: judgment good Skin: Common normals: no rashes or lesions noted General skin exam: no rashes or lesions noted OB - DS: Summary Hospital Course Hospital Course: Felecia is a 26 year-old G1 now P1 admitted on 03/06/2022 at 38 Weeks, 6 Days gestation for IOL for IUGR ,5%. She had an uncomplicated vaginal delivery. She delivered a viable female , Mona Yoder. She is breast feeding, and it is going well per pt. the patient has done well. Pain is well controlled with tylenol and ibuprofen.? She has been up to use the toilet, urinating without concern and has had a BM today and reports she feels much better.? Lochia is scant and no clots per pt.? Fundus firm at 2 fingerbreadth below umbilicus. Bipedal edema +1. Jose supportive at bedside holding baby Mona. Elicited and answered questions. Felecia is excited to go home this morning. ?? Peripartum Data Infant delivery method: Vaginal Laceration description: Perineal - 2nd Degree complications: none Infant Gender: Female (Mona Yoder) Infant Discharge Plan: Home Status at Discharge Functional status at discharge: independent ambulation Overall status at discharge: patient is progressing back to baseline Time Spent with Patient Time attestation: Total time spent providing and/or coordinating discharge services: Time spent: Less than 30 minutes Discharge Plan Discharge Disposition: Home, Self-Care Date of Admission: 03/06/22 06:58 Attending Provider on Discharge: Lyn Garg Primary Care Provider: Provider,Not a Local Condition: Stable Anticipated Discharge Date/Time: 03/09/22 08:52 Discharge Medications: New ibuprofen 600 mg Tablet 600 mg PO Q6H PRN (Reason: pain) Qty: 60 0RF Continued propranolol 80 mg capsule,extended release 24 hr 80 mg PO QDAY levothyroxine 112 mcg capsule 112 mcg PO QDAY metformin 1,000 mg tablet 1,000 mg PO QDAY DHA 200 mg capsule 200 mg PO QDAY ferrous gluconate 324 mg (38 mg iron) tablet 324 mg PO QDAY Discharge Orders: Discharge Order (Routine); Ordered 03/09/22 Ordered By: Lyn Garg Patient Education: OB Vaginal/Breast Feeding Additional Instructions: 2-week visit: discuss infant feeding concerns, review control options and screen for anxiety/depression. 6-week visit for an annual exam. Activity Level: Activity as Tolerated Activity Detail: Discharge Diet: Regular Follow Up App[facility]ments[facility] Inst[facility]
[2022-03-09 16:38] VITALS: BP 134/83; PULSE 67; RESP 16; TEMP 36.4; O2SAT 99
[2022-03-10 00:54] VITALS: BP 131/86; PULSE 91; RESP 16; TEMP 36.6; O2SAT 98
[2022-03-10] MEDS: IBUPROFEN 600 MG TABLET PO (01:00)
[2022-03-10 08:46] VITALS: BP 122/84; PULSE 86; RESP 18; TEMP 37.4; O2SAT 97
== END 2022-03-10 11:40 | disposition home or self-care (01) | DRG 807 ==
PROVIDERS: Advanced Practice Midwife; Admitting Provider Advanced Practice Midwife; Visit Provider Advanced Practice Midwife
DX: O99.284 Endocrine, nutritional and metabolic diseases complicating childbirth (principal); Z37.0 Single live birth; O99.824 Streptococcus B carrier state complicating childbirth; O70.1 Second degree perineal laceration during delivery; E06.3 Autoimmune thyroiditis; E03.9 Hypothyroidism, unspecified; E28.2 Polycystic ovarian syndrome; Z86.16 Personal history of COVID-19; G43.109 Migraine with aura, not intractable, without status migrainosus; Z3A.38 38 weeks gestation of pregnancy
CPT/HCPCS: 01967; 36415; 59200; 85025; 86850; 86900; 86901; 87426; A9270; J0290; J2370; J2795; J3010; J7120

== ENCOUNTER 2022-03-12 14:03 | Outpatient (CLI) | payer OTHER, SELFPAY ==
--- NOTE | 2022-03-12 14:40 | P.LACCB_ITS ---
Consult Note - Mom Date of Visit Date of visit: 03/12/22 business process consultant: Anne Leo Visit Code: Visit Patient's Information Phone number: [phone] : 1 Para: 1 Allergies clindamycin Allergy (Severe, Verified 03/25/22 10:27) Anaphylaxis ciprofloxacin Adverse Reaction (Severe, Verified 03/25/22 10:27) Nose Bleed Mother's Medical History: Medical History (Updated 03/25/22 @ 11:45 by Lyn Garg CNM) Adult hypothyroidism Anxiety Group beta Strep positive History of COVID-19 Migraine with aura PCOS (polycystic ovarian syndrome) affected by growth restriction Delivery Information Delivery type: Vaginal Weeks Gestation: 39.0 Gestational Age: SGA Weight: 2.58 kg Discharge Weight: 2.432 kg Baby's Information Baby's Age at Visit: 5 days old Baby's Provider or Clinic: Dr. Melara Reason for Consult Reason for Consult: pre and post weight check Past Experience Past Experience: No Current Frequency of Day Feedings: every 2 - 3 hours around the clock Both Breasts: Yes Suck: fairly strong Latch: fairly wide Length of Time: about 15 minutes/side Pumping Pumping: Yes (randomly with hand pump) Quantity Pumped: about 4 ml/side Supplementing EMB Supplement: Yes (mom has given baby what she's pumped ) Formula Supplement: No Baby Elimination Number of Wet Diapers a Day: 4 - 6 Number of BM a Day: has not has a BM x 48 hours Breast/Nipple Condition Breast Information: see note Engorgement: No Maternal Nipple Condition - Left: Common Nipple Maternal Nipple Condition - Right: Common Nipple Sore Nipples: No Onsite Pre-Feed weight: 2.424 kg Post-Feed weight: 2.44 kg Milk Transferred (mL): 16 Pre-Nursing Left Nipple: Within Normal Limits Pre-Nursing Right Nipple: Within Normal Limits Post-Nursing Left Nipple: Within Normal Limits Post-Nursing Right Nipple: Within Normal Limits Assessments/Interventions Assessments/Interventions: Met with mom and this now 5 day old ex- term SGA baby for consult.? Mom reports hx of damaged nipples that are healing.? She reports baby is nursing every 2 - 3 hours on both sides for about 15 minutes/side.? She's pumped a few times with her hand pump and gets about 4 ml total each time which they have given to baby via syringe.? Mom with a hx of hypothyroidism and PCOS (she's aware this may affect her milk production).? Her breasts are symmetrical but widely spaced and she denies feeling like her milk is coming in; also states she didn't really notice any breast changes during .? Nipples are everted and don't flatten or retract with compression; both are scabbed.? Baby hasn't really gained or lost weight since D/C and is at 6% below BW.? Per POC she prefers to turn her head to the right and was seen by the chiropractor earlier today; they report equal ROM in her extremities.? She wouldn't suck on a finger but her tongue extends past the gum line and has good lateral movement.? Both her upper and lower frenulum appear to be WNL.? POC report she hasn't had a BM since D/c on 03/10 but has had a wet diaper with almost every feeding. Mom latched baby to the right side in the cross cradle hold and baby had a wide latch with nutritive suckling; mom was comfortable.? She nursed for about 10 minutes, then mom switched her to the left side.? She was more uncomfortable on this side but reported improvement when baby was switched to the football hold.? Baby nursed about another 15 minutes; when she was weighed she had transferred 16 ml.? She was fussy as POC were changing her but settled with a pacifier. Plan: 1. Continue to nurse every 2 - 3 hours on both sides, mom does a good job getting a wide latch and keeping baby nutritively suckling. 2. Suggested mom start pumping after daytime feedings for 15 - 20 minutes.? Per her request nipples were measured for flanges and it was suggested she get inserts for 15 mm flanges; flange fit guide also given. 3. Instructed POC to supplement baby with whatever she pumps today, but if she doesn't have a BM by 03/13 they should start supplementing 15 ml after every feeding.? Mom is reluctant to use formula but we discussed the plateau in weight and the lack of bowl movements for 48 hours.? Tried to reassure her that if formula is needed as her milk comes in she would be able to wean off of it. 4. Continue with chiropractor visits and one is scheduled for next week. 5. Will f/u with PCP for a two week WCC and she's going to schedule a PHN visit for a weight check later this week.? Will f/u by phone after baby's WCC (they live in [place]).? Meds Home Medications and Allergies Home Medications Medication Instructions Recorded Confirmed Type docosahexaenoic acid 200 mg 200 mg PO QDAY 01/31/22 03/25/22 History capsule ( DHA) ferrous gluconate 324 mg (38 mg 324 mg PO QDAY 01/31/22 03/25/22 History iron) tablet levothyroxine 112 mcg capsule 112 mcg PO QDAY 01/31/22 03/25/22 History metformin 1,000 mg tablet 1,000 mg PO QDAY 01/31/22 03/25/22 History propranolol 80 mg capsule,24 80 mg PO QDAY 01/31/22 03/25/22 History hr,extended release Allergies Allergy/AdvReac Type Severity Reaction Status Date / Time clindamycin Allergy Severe Anaphylaxis Verified 03/25/22 10:27 ciprofloxacin AdvReac Severe Nose Bleed Verified 03/25/22 10:27
== END 2022-03-12 14:04 | disposition home or self-care (01) ==
PROVIDERS: Visit Provider Advanced Practice Midwife
DX: Z39.1 Encounter for care and examination of lactating mother (principal)
CPT/HCPCS: 99211

== ENCOUNTER 2022-11-13 11:23 | Outpatient (CLI) | payer MEDICAID, SELFPAY ==
--- NOTE | 2022-11-13 11:15 | CRLHL7_ITS ---
For Patients: As a result of the Century Cures Act, medical imaging exams and procedure reports are released immediately into your electronic medical record. You may view this report before your referring provider. If you have questions, please contact your health care provider. RIGHT BREAST ULTRASOUND, 11/13/2022 INDICATION: 27-year-old female. Patient is 9 months and breast-feeding. Intermittent painful palpable lump along the lateral RIGHT mid breast. TECHNIQUE: Directed RIGHT breast ultrasound with this radiologist present. FINDINGS: The RIGHT breast is carefully scanned at the 9 o`clock position from the nipple laterally. Only normal dense breast tissue is identified. A small normal-sized, normal-appearing lymph node is identified within the 9 o`clock position 4 cm from the nipple measuring 1.1 x 0.5 x 1.0 cm. These findings were discussed in detail with the patient. Any further workup or follow-up should based on clinical grounds. IMPRESSION: Negative directed RIGHT breast ultrasound. BI-RADS Category 2: Benign Dictated by: Darius Daniels MD @11/13/2022 12:18:49 PM CRL:annika RD/Dictated by: Darius Daniels MD @ 11/13/2022 12:18:00 PM (Electronically Signed)
== END 2022-11-13 11:24 | disposition home or self-care (01) ==
LOC: US 11:23
PROVIDERS: Visit Provider Advanced Practice Midwife
DX: N63.10 Unspecified lump in the right breast, unspecified quadrant (principal); Z39.1 Encounter for care and examination of lactating mother
CPT/HCPCS: 76642

== ENCOUNTER 2023-04-28 09:30 | Outpatient (CLI) | payer OTHER, SELFPAY | END 2023-04-28 09:31 | disposition home or self-care (01) | LOC: INJ CL 09:32 | PROVIDERS: Visit Provider Family Medicine | DX: M54.16 Radiculopathy, lumbar region (principal); M51.26 Other intervertebral disc displacement, lumbar region | CPT/HCPCS: 64483; J1100; Q9966 ==

== ENCOUNTER 2023-06-16 07:37 | Outpatient (CLI) | payer OTHER, SELFPAY ==
--- OUTSIDE RECORDS SUMMARY | 2023-06-16 07:40 | XMS_ITS | Encounter Summary ---
Author Name Unknown Organization [facility] Address [address] [address] Care Team Providers Care Tiller Worker Name Role Phone Clinician, Not Found MD Primary Care Provider Un available Reason for Referral * (Routine) - New Request Specialty Diagnoses / Procedures Referred By Contac t Referred To Contact Diagnoses Left knee pain, unspecified chronicity Procedures Euflexxa Inj (per dose) Robert Davis PA-C [address] [place] [address] Referral ID Status Reason Start Date Expiration Date V isits Requested Visits Authorized [id number] New Request 04/27/2023 07/26/2024 1 1 IEW PROGRAMMER Reason for Visit * Reason Comments Knee Pain or Injury Follow-up Encounter Details Date Type Department Care Team Description 04/27/2023 3:15 PM LABVIEW PROGRAMMER Office Visit [facility] [address] [place], [place] [phone] Robert Davis PA-C [address] [place] [address] Left knee pain, unspecified chronicity (Primary Dx) Social History Tobacco Use Types Packs/Day Years Used Date Smoking Tobacco: Never Alcohol Use Standard Drinks/Week Comments No 0 (1 standard drink = 0.6 oz pur e alcohol) Sex and Gender Information Value Date Recorded Sex Assigned at Not on file Gender Identity Not on file Sexual Orientation Not on file documented as of this encounter Patient Instructions * Patient Instructions* Deidre Jay LPN - 04/27/2023 3:15 PM LABVIEW PROGRAMMER Thank you for Choosing [facility] for your health care visit today. Robert Davis PA-C Physician Funds Transfer Clerk Certified Appts: [phone] Medication Requests: Prescriptions are not filled on weekends or on weekdays after 3:00 PM. For all medication refills: Request a refill using [employer] or contact your pharmacy. What is Know Your Cost? Know Your Cost is a service for patients and patient/members to call and receive personalized cost information and estimates across our care group. The phone number is (COST) Thursday - Thursday 8 AM to 5 PM Advanced Imaging Scheduling: To schedule an MRI, Ultrasound, or Image guided injection at [facility] please call [phone]. To schedule an MRI or CT at a [facility] please call [phone]. [facility] Workers' Compensation [address] [place] [address] (Phone) Email: [email or web address] Release of Information: Radiology/Imaging [address] [place] [address] (Phone) Health Information Management [address] [place] [address] (Phone) [employer] IEW PROGRAMMER documented in this encounter Progress Notes * Robert Davis PA-C - 04/27/2023 12:00 AM CST NAME: FLAQUITO WRIGHT CSN: [id number] CLINIC NOTE DATE OF SERVICE: 04/27/2023 : 1995 HISTORY: The patient is a 27-year-old female, who presents to clinic today for followup of her leftknee. She has a known history of left knee osteoarthritis. We have been treating this conservatively with Euflexxa injections. She is here to have her second injection today. She denies a new injury or adverse reaction to injections in the past. PHYSICAL EXAM: On general exam, patient is alert, awake, in no apparent distress. She walks with a nonantalgic gait without the use of a brace or assistive device. On exam of left knee, there is no effusion, erythema, ecchymosis, or other skin abnormalities. Range of motion not tested. She is otherwise neurovascularly intact. IMPRESSION: Left knee osteoarthritis. PLAN: I discussed with Flaquito that we can proceed with her second Euflexxa injection. After verbal consent was obtained, left knee prepped with Betadine solution, the prepackaged Euflexxa was injected in the knee under sterile technique. She tolerated the injection well. She was educated on adverse reaction, and should she note those symptoms, she is instructed to call the clinic. DANIELLE JOSEPH/KOREY /[id number] IEW PROGRAMMER documented in this encounter Plan of Treatment Not on file documented as of this encounter Visit Diagnoses Diagnosis Left knee pain, unspecified chronicity- Primary documented in this encounter Care Teams Tiller Worker Relationship Specialty Start Date End Date Clinician, Not Found, [place] [address] PCP - General 10/19/13 documented as of this encounter
--- OUTSIDE RECORDS SUMMARY | 2023-06-16 07:40 | XMS_ITS | Encounter Summary ---
Author Name Unknown Organization [facility] Address [address], [place] [address] Care Team Providers Care Chip Washer Name Role Phone Clinician, Not Found MD Primary Care Provider Un available Reason for Referral * (Routine) - New Request Specialty Diagnoses / Procedures Referred By Contac t Referred To Contact Diagnoses Left knee pain, unspecified chronicity Procedures Euflexxa Inj (per dose) Robert Davis PA-C [address] [place] [address] Referral ID Status Reason Start Date Expiration Date V isits Requested Visits Authorized [id number] New Request 05/06/2023 08/04/2024 1 1 NE DIESEL MECHANIC Reason for Visit * Reason Comments Injection Left Knee Euflexxa # 3 Encounter Details Date Type Department Care Team Description 05/04/2023 3:15 PM MARINE DIESEL MECHANIC Office Visit [facility] [address] [place], [place] [phone] Robert Davis PA-C [address] [place] [address] Left knee pain, unspecified chronicity [...] on file documented as of this encounter Progress Notes * Robert Davis PA-C - 05/04/2023 12:00 AM CST NAME: FLAQUITO WRIGHT CSN: [id number] CLINIC NOTE DATE OF SERVICE: 05/04/2023 : 1995 HISTORY: The patient is a 27-year-old female, who presents to clinic today for followup of her leftknee. She has left knee pain, been undergoing Euflexxa injections for it. Noted a slight increase in swelling, unsure why, but denies any adverse reaction. She would like to proceed with her 3rd injection today. PHYSICAL EXAM: On general exam, patient is alert, awake, in no apparent distress. She walks with a nonantalgic gait without the use of a brace or assistive device. On exam of left knee, there is no effusion, erythema, ecchymosis, or other skin abnormalities. Range of motion not tested. Thigh and calf are nontender. She is otherwise neurovascularly intact. IMPRESSION: Left knee osteoarthritis. PLAN: I discussed with Flaquito, we can proceed with her 3rd injection of Euflexxa today. After verbal consent was obtained, her left knee was prepped with Betadine solution. The prepackaged Euflexxawas injected in her knee under sterile technique. She tolerated the injection well. She was educated on adverse reaction. Should she note these symptoms, she is instructed to call the clinic. DANIELLE JOSEPH/KOREY /[id number] NE DIESEL MECHANIC documented in this encounter Plan of Treatment Not on file documented as of this encounter Visit Diagnoses Diagnosis Left knee pain, unspecified chronicity- Primary documented in this encounter Care Teams Chip Washer Relationship Specialty Start Date End Date Clinician, Not Found, [place] [address] PCP - General 10/19/13 documented as of this encounter
--- OUTSIDE RECORDS SUMMARY | 2023-06-16 07:40 | XMS_ITS | Encounter Summary ---
Author Name Unknown Organization [facility] Address [address] [address] Care Team Providers Care Electrical Mechanic Name Role Phone Clinician, Not Found MD Primary Care Provider Un available Reason for Referral * Therapies (Routine) - Authorized Specialty Diagnoses / Procedures Referred By Isi blackman Referred To Contact Diagnoses Left knee pain, unspecified chronicity Luke Armendariz MD [address] [place] [address] Referral ID Status Reason Start Date Expiration Date V isits Requested Visits Authorized [id number] Authorized 02/25/2023 02/25/2024 12 12 Scheduling Instructions Your clinician has recommended an appointment with [facility]. You can quickly make your appointment online at [email or web address]. You can also call [phone] for help scheduling your appointment. We suggest you call your health insurance company about your coverage and benefits for this appointment. Question Answer Appointment Urgency? Non-Urgent Requested Services Evaluate and treat May use saline for irrigation or cleansing Yes RFV/Clin Data Left Knee Eval Chondromalacia dexamethasone use Yes May check glucose per protocol (see policy link below) or if patient has symptoms? Yes Comments Quad and Hamstring Strengthening * (Routine) - New Request Specialty Diagnoses / Procedures Referred By Contporfirio t Referred To Contact Diagnoses Left knee pain, unspecified chronicity Procedures Triamcinolone Acet Inj Nos: (per 10 mg) Luke Armendariz MD [address] [place], [place] [address] Referral ID Status Reason Start Date Expiration Date V isits Requested Visits Authorized [id number] New Request 03/23/2023 06/21/2024 1 1 Reason for Visit * Reason Comments Follow-up Left knee Encounter Details Date Type Department Care Team Description 02/25/2023 10:30 AM CDT Office Visit [facility] [address] [place] [address] Luke Armendariz MD [address] [place] [address] Left knee pain, unspecified chronicity (Primary Dx) [...] this encounter Patient Instructions * Patient Instructions* Carolyn Morales MA - 02/25/2023 10:30 AM CDT Thank you for Choosing [facility] for your health care visit today. Dr. Luke Armendariz MD Orthopaedic Surgeon Medication Requests: Prescriptions are not filled on weekends or on weekdays after 3:00 PM. For all medication refills: Request a refill using Friend [employer] or contact your pharmacy. What is Know Your Cost? Know Your Cost is a service for patients and patient/members to call and receive personalized cost information and estimates across our care group. The phone number is (COST) Thursday - Thursday 8 AM to 5 PM Advanced Imaging Scheduling: To schedule an MRI, Ultrasound, or Image guided injection at [facility] please call [phone]. To schedule an MRI or CT at a [facility] location please call [phone]. [employer] [address] [place] [address] (Phone) Email: [email or web address] Release of Information: Radiology/Imaging [address] [place] [address] (Phone) Health Information Management [address] [place] [address] (Phone) [employer] documented in this encounter Progress Notes * Luke Armendariz MD - 02/25/2023 10:30 AM CDT [facility] Orthopaedic [place] Follow-Up 02/25/2023 Chief Complaint: Left knee pain History of Present Illness: Felecia PLUMMER is a 27 y.o. female who presents for follow-up visit for left knee pain. She isS/P MRI of her Left knee. She was last seen on 02/02/2023. Review of Systems: Left knee pain Physical Exam: General: The patient is in no acute distress. Neuro: Answers questions appropriately. Left Knee: She has some mild discomfort of the medial side of patella. No medial or lateral joint line tenderness Range of motion 0-140 degrees. Stable to varus and valgus stress. Negative anterior and posterior drawer tests. She does not seem to have any patellar instability Negative posterior drawer Negative patellar tilt and negative patellar glide Imaging: MRI of the Left knee (02/16/2023): Demonstrates 1. 0.4 x 0.3 cm focus of chondral heterogeneity and obliquely-oriented full- thickness chondral fissuring involving the proximal portion of the lateral patellar facet. 2. Questionable nondisplaced 0.3 cm superficial chondral flap involving the distal margin of the medial patellar facet. 3. Low signal intensity scarring of the medial patellofemoral ligament reconstruction graft, with slightly frayed, low signal intensity scarred fibers abutting the medial margin of the medial patella. However, there is no high- grade full-thickness tearing of the medial patellofemoral ligament recons truction graft. 4. No meniscal tear, as clinically queried. I ordered and independently reviewed and interpreted the imaging studies above; the results were discussed with the patient. Assessment : Left knee pain, Mild to moderate degenerative changes Plan: My impression is that the patient has some mild to moderate degenerative changes of her Left knee. At this point, I think the patient will benefit from having cortisone injections followed up by visco supplementation and physical therapy. Left Knee Cortisone Injection Risks, alternatives, and potential benefits were discussed, and the patient consents to proceed with a steroid injection. Using aseptic technique and a betadine prep, the patient underwent a right knee intra-articular injection using a 22 gauge needle 8 cc 1% plain Lidocaine and 2 mg from a 40mg/mLvial of triamcinolone. There were no complications with the procedure. She tolerated the procedure well. We will get prior authorization for viscous supplementation. She will do physical therapy 2 times per week in the next 6 weeks. The patient's office visit was 15 minutes face to face time in which 10minutes were counseling. Scribe Disclosure: I, Diogo Hamilton, am serving as a scribe to document services personally performed by Luke Armendariz MD at this visit, based upon the provider's statements to me. All documentation has been reviewed by the aforementioned provider prior to being entered into the official medical record. Portions of this medical record were completed by a scribe. UPON MY REVIEW AND AUTHENTICATION BY ELECTRONIC SIGNATURE, this confirms (a) I performed the applicable clinical services, and (b) the record is accurate. Luke Armendariz MD documented in this encounter Plan of Treatment Scheduled Referrals Name Type Priority Associated Diagnoses Orde r Schedule Physical Therapy Referral Routine Left knee pain, unspecified chronicity Ordered: 02/25/2023 documented as of this encounter Visit Diagnoses Diagnosis Left knee pain, unspecified chronicity- Primary documented in this encounter Care Teams Electrical Mechanic Relationship Specialty Start Date End Date Clinician, Not Found, [place] [address] PCP - General 10/19/13 documented as of this encounter
--- OUTSIDE RECORDS SUMMARY | 2023-06-16 07:40 | XMS_ITS | Clinical Summary ---
Author Name Unknown Organization [facility] Address [address] [place] [address] Care Team Providers Care Carpenter Labor Supervisor Name Role Phone Jerry Patterson M.D. Primary Care Provider [phone] Source Comments Patient records contain information from all sites at [facility]. For routine questions regarding patient records, call [phone] during business hours, M-F 8:00 AM - 5:00 PM Central Time. Record requests for emergency care only can be directed to [phone] at any time.[facility] Allergies Active Allergy Reactions Criticality Noted Date Comments Ciprofloxacin Anaphylaxis 2013 Clindamycin Anaphylaxis High 09/19/2014 Gentamicin Anaphylaxis High 02/07/2014 Medications Medication Sig Dispensed Refills Start Date End Date Status TENS unit and electrodes (Cefaly) combo packIndications:Migr agustina Headache Acute treatment is for 60 minutes. Preventive treatment is 20 min per day. 1 each 0 08/17/2020 Active Additional Information Patient not taking.Reported on 10/14/2022 propranoloL (INDERAL LA) 80 mg 24 hr capsuleIndications:M igraine Headache Take 1 capsule (80 mg total) by mouth 2 (two) times a day. 60 capsule 11 10/09/2022 4 Active ondansetron ODT (ZOFRAN-ODT) 4 mg disintegrating tabletIndications:Mi graine Headache Dissolve 1 tablet (4 mg total) in the mouth every 8 (eight) hours as needed for nausea or vomiting. 20 tablet 1 10/14/2022 Active levothyroxine (SYNTHROID, LEVOTHROID) 112 mcg tablet Take 1 tablet (112 mcg total) by mouth every morning before breakfast. 90 tablet 1 11/05/2022 Active Vitron-C 65 mg iron- [address] tabletIndications:Re stless Leg Syndrome,Deficiency Iron TAKE 1 TABLET (65 MG OF IRON TOTAL) BY MOUTH EVERY EVENING. DO NOT CRUSH OR CHEW. 30 tablet 2 05/01/2023 Active metFORMIN XR (GLUCOPHAGE-XR) 500 mg 24 hr tabletIndications:Po lycystic Ovary Syndrome Take 2 tablets (1,000 mg total) by mouth 2 (two) times a day. 360 tablet 0 05/07/2023 Active Active Problems Problem Noted Date Diagnosed Date 34 Weeks Gestation 02/03/2022 Arthroscopy Knee Status Post 06/14/2021 Hypothyroidism Primary 04/16/2021 Pain Knee Left 03/24/2021 Pain Back Thoracic 03/15/2021 Unspecified Injury Left Quad riceps Muscle Fascia And Tendon Initial 03/15/2021 Obesity Body Mass Index 30-39.9 Adult 06/27/2019 Deviation Nasal Septal 10/05/2018 Overview: Added automatically from request for surgery [id number] Sinusitis Chronic Maxillary 10/04/2018 Rhinitis Allergic Due To Outdoor Pollen 10/05/19 19 Rhinitis Allergic Dust Mite 10/04/2018 Rhinitis Allergic Animal 10/04/2018 Pulsatile Tinnitus Left Ear 10/04/2018 Migraine Headache 08/05/2018 Polycystic Ovary Syndrome 08/06/2017 Thyroiditis Deric's 08/06/2017 Obstructive Sleep Apnea Adult 10/14/2016 Resolved Problems Problem Noted Date Diagnosed Date Resolved Date Overweight Body Mass Index 25-29.9 Adult 05/22/2016 06/27/2019 Overview: Body mass index (BMI) 40.0-44.9, adult Rule activated problem due to BMI 40-44 posted on 05/22 at 08:45 INSPECTOR FINISHING. Encounters Date Type Department Care Team Description 05/12/2023 Clinical Communication Department of Endocrinology in [address] [phone] [place] R[place] lab for endocrine apt 04/30/2023 Refill Department of Endocrinology in [place], [place] [address] [place] [phone] Meryl Julio M.D. Med Refill 04/30/2023 Refill Department of Sleep Medicine in [place], [place] [address] [place] [phone] Allison Collins M.D. Med Refill 03/31/2023 Orders Only [facility] Jerry Patterson M.D. from Last 3 Months Immunizations Name Administration Dates Next Due 4vHPV (discontinued) 06/16/2011,08/28/2008,06/21 DTP 02/13/1995, 4,1993,1993 DTaP (Infanrix, Tripedia) 06/14/1998,,02/12/1994,1993,1993 HepA Adult 04/24/2016,07/24/2010 HepB, Unspecified 03/12/1994,1993,09/11/18 94 Hib (PRP-T) (ACTHIB, HIBERIX) 08/22/1994 ,02/12/1994,1993,1993 IPV 06/14/1998, 4,1993,1993 Influenza, Injectable, Mdck, Preservative Free, Quadrivalent 03/03/2018 Influenza, Injectable, Quadrivalent 03/15/2020 Influenza, Seasonal, Injectable 04/24/2016 Influenza, Unspecified 05/08/2016,03/08/2014,01/2013 MCV4 (Menactra) 07/24/2010 MMR 06/14/1998,08/22/1994 OPV 06/14/1998, 4,1993,1993 Td (Adult), adsorbed 04/24/2016 Tdap 01/15/2006 MIAN 07/25/2010,06/14/1998 influenza vaccine quad (FLUZONE/FLUARIX) (6 months and older)(PF) 02/22/2019 typhoid vaccine, parenteral (discontinued) 07/24/2010 Family History Medical History Relation Name Comments [...] Smoking Tobacco: Never Smokeless Tobacco: Never Tobacco Cessation:Counseling Given: Not Answered Alcohol Use Standard Drinks/Week Comments No 0 (1 standard drink = 0.6 oz pur e alcohol) Humiliation, Afraid, Rape, and Kick questionnair e Answer Date Recorded Within the last year, have y ou been afraid of your partner or ex-partner? No 10/13/2022 Within the last year, have y ou been humiliated or emotionally abused in other ways by your partner or ex-partner? No Within the last year, have y ou been kicked, hit, slapped, or otherwise physically hurt by your partner or ex-partner? No 10/13/2022 Within the last year, have y ou been raped or forced to have any kind of sexual activity by your partner or ex-partner? No 10/13/2022 Social Connection and Isolation Panel [NHANES] A nswer Date Recorded In a typical week, how many times do you talk on the phone with family, friends, or neighbors? Twice a week 10/14/19 How often do you get togethe r with friends or relatives? Once a week 10/13/2022 How often do you attend chur ch or scientology services? 1 to 4 times per year 10/13/2022 Do you belong to any clubs o r organizations such as worship groups, unions, fraternal or athletic groups, or school groups? No 10/13/2022 How often do you attend meet ings of the clubs or organizations you belong to? Patient declined 10/13/2022 Are you , , di vorced, , never , or living with a partner? 10/13/2022 AUDIT-C Answer Date Recorded Q1: How often do you have a drink containing alc ohol? Never 10/13/2022 Average Number of Drinks Not on file 023 Frequency of Binge Drinking Not on file 09/23 Overall Financial Resource Strain (CARDIA) Answe r Date Recorded How hard is it for you to pa y for the very basics like food, housing, medical care, and heating? Not hard at all 10/13/2022 PHQ-2 Answer Date Recorded PHQ-2 Score 0 08/14/2021 [facility] Occupat ional [facility] - Occupational Stress Questionnaire Answer Date Recorded Do you feel stress - tense, restless, nervous, or anxious, or unable to sleep at night because your mind is troubled all the time - these days? Rather much 10/13/2022 Exercise Vital Sign Answer Date Recorde d On average, how many days pe r week do you engage in moderate to strenuous exercise (like a brisk walk)? 2 days 10/13/2022 On average, how many minutes do you engage in exercise at this level? 40 min 10/13/2022 Hunger Vital Sign Answer Date Recorded Within the past 12 months, y ou worried that your food would run out before you got the money to buy more. Never true 10/14/19 23 Within the past 12 months, t he food you bought just didn't last and you didn't have money to get more. Never true 10/13/2022 PRAPARE - Transportation Answer Date Re corded In the past 12 months, has l ack of transportation kept you from medical appointments or from getting medications? No 09/23 In the past 12 months, has l ack of transportation kept you from meetings, work, or from getting things needed for daily living? No 10/13/2022 Housing Stability Vital Sign Answer Jasson e Recorded In the last 12 months, was t here a time when you were not able to pay the mortgage or rent on time? No 10/13/2022 In the last 12 months, how many places have you lived? 1 10/13/2022 In the last 12 months, was t here a time when you did not have a steady place to sleep or slept in a fdc (including now)? No 10/13/2022 Nutrition Answer Date Recorded Nutrition: EVOO Fat Source Yes 10/13 On average, how many serving s of fruits and vegetables do you eat per day (serving size is equal to 1 cup or approximately the size of a tennis ball)? 0-1 10/13/2022 Dental Answer Date Recorded Dental: Regular Dentist Yes 06/21/19 Employment Answer Date Recorded Employment status Employed and actively working without restrictions 10/13/2022 Education Answer Date Recorded What is the highest level of school you have completed or the highest degree you have received? Bachelor's degree (e.g., BA, AB, BS) 06/21/2021 Sex and Gender Information Value Date Recorded Sex Assigned at Female 06/21/2021 12:52 PM INSPECTOR FINISHING Gender Identity Female 06/21/2021 12:52 PM INSPECTOR FINISHING Sexual Orientation Straight 06/21/2021 12 :52 PM INSPECTOR FINISHING Last Filed Vital Signs Vital Sign Reading Time Taken Comments Blood Pressure 114/76 10/14/2022 8:49 AM CDT Pulse 81 10/14/2022 8:49 AM CDT Temperature 36.8 ??C (98.2 ??F) 09/05/2021 9:46 AM CD T Respiratory Rate 20 09/05/2021 9:46 AM CDT Oxygen Saturation 98% 08/30/2021 1:05 PM CDT Inhaled Oxygen Concentration - - Weight 113 kg (249 lb 9 oz) 10/14/2022 8:49 AM C DT Height 169 cm (5' 6.54) 04/29/2022 3:07 PM INSPECTOR FINISHING Body Mass Index 39.63 04/29/2022 3:07 PM INSPECTOR FINISHING Plan of Treatment Upcoming Encounters Date Type Department Care Team (Latest Contact Info) Description 06/22/2023 3:00 PM INSPECTOR FINISHING Office Visit Department of Endocrinology in [place], [place] [address] [place] [address] Meryl Julio M.D. [address] [place] [phone] Discharge Disposition: Home or Self Care Health Maintenance Due Date Last Done Comments HIV Screening 1993 Hepatitis C Screening 1993 COVID-19 Vaccine (#1) 02/18/1994 Cervical Cancer Screening 10/08/2020 10/08/2017, 03/2015 Influenza Vaccine (#1) 2023 , 03/15/2020, 02/22/2019, Additional history exists Depression Screening (Annual PHQ-2) 05/25/2023 Thyroid Stimulating Hormone (TSH) test for thyroid function 01/16/2024 01/15/2023, 11/05/2022, 09/05/2022, Additional history exists DTaP,Tdap,and Td Vaccines (8 - Td or Tdap) 04/24/2026 04/24/2016, 01/15/2006, 06/14/1998, Additional history exists Hepatitis B Vaccines Completed 03/12/1994, 1993, 1993 Varicella Vaccines Completed 07/25/2010, 06/14/1998 HPV Vaccines Completed 06/16/2011, 10/2008, 06/21/2008 Hepatitis A Vaccines Completed 04/24/2016, 07/25/19 11 Pneumococcal vaccine (0-64 years) Aged Out No longer eligible based on patient's age to complete this topic Medical Devices Implanted Type Area Research Soil Scientist Device Identifier Shelf Expiration Date Model / Serial / Lot Hardware E.G. Pins/Screws/Ro ds Hardware e.g. pins/screws/ rods Left: Knee Advance Directives For more information, please contact: [phone] Latest Code Status on File Code Status Date Activated Date Inactivated Comments Full Code 10/08/2018 4:08 PM 10/08/2018 6:52 PM Question Answer Comments Full Code: Not Discussed Due to: Patient not available Care Teams Carpenter Labor Supervisor Relationship Specialty Start Date End Date Jerry Patterson M.D. [address] [place] [phone] PCP - General Family Medicine 05/06/21
--- OUTSIDE RECORDS SUMMARY | 2023-06-16 07:40 | XMS_ITS | Clinical Summary ---
Author Name Unknown Organization [facility] Address [address] [place] [address] Care Team Providers Care Hvac Residential Service Technician Name Role Phone Clinician, Not Found MD Primary Care Provider Un available Source Comments You are receiving this document as you are listed as the primary care provider,follow-up provider, or the patient has been referred to you for consultation.This is in compliance with the Medicare and[facility] Cent[facility] EHR Incentive Program,which states Providers who transition their patient to another setting of careor provider of care or refers their patient to another provider of care shouldprovide summary care record for each transition of care or referral. [facility] [employer] [facility] Allergies Active Allergy Reactions Criticality Noted Date Comments Clindamycin 11/30/2013 HUT Reaction: Anaphylaxis; HUT Severity: High; HUT Noted: [id number] Medications Medication Sig Dispensed Refills Start Date End Date Status methocarbamol (AKA ROBAXIN) 500 MG tablet Take 1 tablet by mouth at bedtime as needed. 30 tablet 0 05/15/2014 Active levothyroxine (SYNTHROID) 112 MCG tablet Take 1 Tablet (112 mcg) by mouth daily. 0 11/19/2022 Active metFORMIN XR (GLUCOPHAGE XR) 500 MG 24 hour release tablet Take 2 Tablets (1,000 mg) by mouth two times a day. 0 01/30/2023 Active Active Problems Problem Noted Date Diagnosed Date Lumbar sprain and strain 05/17/2012 Subluxation of left patella 02/14/2012 Encounters Date Type Department Care Team Description 05/04/2023 3:15 PM RADIO PERSONALITY Office Visit [facility] [address] [place] [phone] Robert Davis PA-C Left knee pain, unspecified chronicity (Primary Dx) 04/27/2023 3:15 PM RADIO PERSONALITY Office Visit [facility] [address] [place] [phone] Robert Davis PA-C Left knee pain, unspecified chronicity (Primary Dx) 04/20/2023 3:15 PM RADIO PERSONALITY Office Visit [facility] [address] [place] [phone] Robert Davis PA-C Left knee pain, unspecified chronicity (Primary Dx) from Last 3 Months Social History Tobacco Use Types Packs/Day Years Used Date Smoking Tobacco: Never Alcohol Use Standard Drinks/Week Comments No 0 (1 standard drink = 0.6 oz pur e alcohol) Sex and Gender Information Value Date Recorded Sex Assigned at Not on file Gender Identity Not on file Sexual Orientation Not on file Last Filed Vital Signs Vital Sign Reading Time Taken Comments Blood Pressure 136/89 02/13/2012 4:29 PM CDT Pulse - - Temperature 37.2 ??C (99 ??F) 05/17/2012 9:59 AM RADIO PERSONALITY Respiratory Rate - - Oxygen Saturation - - Inhaled Oxygen Concentration - - Weight 111.1 kg (245 lb) 02/02/2023 9:26 AM CDT Height 170.2 cm (5' 7) 02/02/2023 9:26 AM CDT Body Mass Index 38.37 02/02/2023 9:26 AM CDT Plan of Treatment Health Maintenance Due Date Last Done Comments Cervical Cancer Screening Due 1993 Hep C Screening (Preventive Services) 1993 HepB (1) 1993 COVID-19 Vaccine (#1) 02/18/1994 HIV Screening (Preventive Services) 2009 Adult Preventive Visit 08/19/2011 Influenza (#1) 2023 03/15/2020, 02/23, 02/22/2019, Additional history exists DTaP/Tdap/Td (8 - Tdap) 04/24/2026 04/24/20 16, 01/15/2006, 06/14/1998, Additional history exists Zoster/Shingles (1 of 2) 08/19/2043 IPV (Polio) Completed 06/14/1998, 05/26, 02/12/1994, Additional history exists MCV4 Completed 07/24/2010 HPV Vaccine Completed 06/16/2011, 05/26, 08/28/2008, Additional history exists HepA Completed 04/24/2016, 07/24/2010 Hib Aged Out No longer eligi ble based on patient's age to complete this topic Pneumococcal Aged Out No longer eligi ble based on patient's age to complete this topic Care Teams Hvac Residential Service Technician Relationship Specialty Start Date End Date Clinician, Not Found, [place] [address] PCP - General 10/19/13
--- OUTSIDE RECORDS SUMMARY | 2023-06-16 07:40 | XMS_ITS | Encounter Summary ---
Author Name Unknown Organization [facility] Address [address] [place] [address] Care Team Providers Care Scheduling Assistant Name Role Phone Clinician, Not Found MD Primary Care Provider Un available Reason for Visit * Reason Comments Prior Authorization For Imaging NICKY re quest for MRI of L knee Encounter Details Date Type Department Care Team Description 02/02/2023 Telephone [facility] [place] [address] [place] [id number] Leo Jarquin MD [address] [place] [phone] Prior Authorization For Imaging ([facility] request for MRI of L knee) Social History Tobacco Use Types Packs/Day Years Used Date Smoking Tobacco: Never Alcohol Use Standard Drinks/Week Comments No 0 (1 standard drink = 0.6 oz pur e alcohol) Sex and Gender Information Value Date Recorded Sex Assigned at Not on file Gender Identity Not on file Sexual Orientation Not on file documented as of this encounter Nursing Notes * Ivonne Mercado - 02/06/2023 1:08 PM CDT Scheduled! * Colette Smith - 02/05/2023 4:18 PM CDT Received approval for left knee MRI from Sofia Redmond. * Jet Santana - 02/04/2023 9:29 AM CDT Updated info - trim machine adjuster: Sofia Redmond @ [facility] [phone] / fax: [phone] - faxed request for left knee MRI to Sofia. * Jet Santana - 02/04/2023 8:10 AM CDT Called Felecia & requested info - she gave me: [facility], [address] [place] [address] - DOI 03/09/21 - she said she'll email details to me. * Jet Santana - 02/03/2023 7:22 AM CDT Faxed request for left knee MRI to [facility] [phone]. * Reina Figueredo - 02/02/2023 10:10 AM CDT To Whom it May Concern: We are requesting Prior Authorization regarding the patient???s Worker???s Compensation. The prior authorization process has been started and we will await approval from the Prior Authorization team.Once approval has been granted we will assist in contacting the patient or scheduling the patient for their appropriate services. Patient Name Felecia PLUMMER 1995 Body Part Left Knee Procedure Name Knee Lt WO IV Cont CPT Code(s) Diagnosis Left knee pain, unspecified chronicity [M25.562] ICD-10 Code(s) Ordering Provider LEO JARQUIN Provider NPI Service/Surgery Location [facility] CRISTINA Figueredo 02/02/2023, 10:10 AM documented in this encounter Plan of Treatment Not on file documented as of this encounter Visit Diagnoses Not on filedocumented in this encounter Care Teams Scheduling Assistant Relationship Specialty Start Date End Date Clinician, Not Found, [place] [address] PCP - General 10/19/13 documented as of this encounter
--- OUTSIDE RECORDS SUMMARY | 2023-06-16 07:40 | XMS_ITS | Encounter Summary ---
Author Name Unknown Organization [facility] Address [address] [address] Care Team Providers Care Water Main Inspector Name Role Phone Clinician, Not Found MD Primary Care Provider Un available Reason for Visit * Reason Comments Appt. Needed Encounter Details Date Type Department Care Team Description 03/04/[address] [facility] [place] [address] [place] [id number] Luke Armendariz MD [address] [place] [phone] Appt. Needed Social History Tobacco Use Types Packs/Day Years Used Date Smoking Tobacco: Never Alcohol Use Standard Drinks/Week Comments No 0 (1 standard drink = 0.6 oz pur e alcohol) Sex and Gender Information Value Date Recorded Sex Assigned at Not on file Gender Identity Not on file Sexual Orientation Not on file documented as of this encounter Nursing Notes * Geneva Weiss - 03/04/2023 8:43 AM CDT 03/04/23 - [facility] for [place]. [employer] does not require a prior auth for Euflexxa. She will give us a call back when she is ready to schedule those injections. Matt Davis will do the injections. Geneva Weiss 03/04/2023, 8:44 AM documented in this encounter Plan of Treatment Not on file documented as of this encounter Visit Diagnoses Not on filedocumented in this encounter Care Teams Water Main Inspector Relationship Specialty Start Date End Date Clinician, Not Found, [place] [address] PCP - General 10/19/13 documented as of this encounter
--- OUTSIDE RECORDS SUMMARY | 2023-06-16 07:40 | XMS_ITS | Encounter Summary ---
Author Name Unknown Organization [facility] Address [address] [address] Care Team Providers Care Clinical Cytogeneticist Scientist Name Role Phone Clinician, Not Found MD Primary Care Provider Un available Reason for Referral * (Routine) - New Request Specialty Diagnoses / Procedures Referred By Contac t Referred To Contact Diagnoses Left knee pain, unspecified chronicity Procedures Euflexxa Inj (per dose) Robert Davis PA-C [address] [place] [address] Referral ID Status Reason Start Date Expiration Date V isits Requested Visits Authorized [id number] New Request 04/21/2023 07/20/2024 1 1 PMENT INSPECTOR Reason for Visit * Reason Comments Injection Left Knee Euflexxa # 1 Encounter Details Date Type Department Care Team Description 04/20/2023 3:15 PM EQUIPMENT INSPECTOR Office Visit [facility] [place] [address] [place], [place] [phone] Robert Davis PA-C [address] [place], [place] [id number] Left knee pain, unspecified chronicity (Primary Dx) [...] Progress Notes * Robert Davis PA-C - 04/20/2023 12:00 AM CST NAME: FLAQUITO WRIGHT CSN: [id number] CLINIC NOTE DATE OF SERVICE: 04/20/2023 : 1995 HISTORY: Patient is a 27-year-old female, who presents to clinic today for followup of her left knee. She has a known history of left knee chondral change and she is here to start a Visco series. Sherates her pain 09/01. She noticed minimal improvement with the cortisone injection. She denies any injury or adverse reactions. Here to have her 1st Euflexxa injection today. PHYSICAL EXAM: On general exam, patient is alert, awake, in no apparent distress. She walks with a nonantalgic gait without the use of a brace or assistive device. On exam of left knee, there is no effusion, erythema, ecchymosis or skin abnormalities. Range of motion tested, thigh and calf are nontender. She is otherwise neurovascularly intact. IMPRESSION: Left knee osteoarthritis. PLAN: I discussed with Flaquito that she can proceed with her 1st Euflexxa injection today. After verbal consent was obtained, her left knee was prepped with Betadine solution. The prepackaged Euflexxa was injected in her knee under sterile technique. She tolerated the injection well. She was educated on adverse reaction. Should she note any symptoms, she is instructed to call clinic. DANIELLE JOSEPH/KOREY /[id number] PMENT INSPECTOR documented in this encounter Plan of Treatment Not on file documented as of this encounter Visit Diagnoses Diagnosis Left knee pain, unspecified chronicity- Primary documented in this encounter Care Teams Clinical Cytogeneticist Scientist Relationship Specialty Start Date End Date Clinician, Not Found, [place] [address] PCP - General 10/19/13 documented as of this encounter
--- OUTSIDE RECORDS SUMMARY | 2023-06-16 07:40 | XMS_ITS | Encounter Summary ---
Author Name Unknown Organization [facility] Address [address], [place] [address] Care Team Providers Care Town Administrator Name Role Phone Clinician, Not Found MD Primary Care Provider Un available Reason for Visit * Reason Comments Appt. Needed Encounter Details Date Type Department Care Team Description 03/09/2023 Telephone [facility] [address] [place] [address] Interface, In [facility] Notes Appt. Needed Social History Tobacco Use Types Packs/Day Years Used Date Smoking Tobacco: Never Alcohol Use Standard Drinks/Week Comments No 0 (1 standard drink = 0.6 oz pur e alcohol) Sex and Gender Information Value Date Recorded Sex Assigned at Not on file Gender Identity Not on file Sexual Orientation Not on file documented as of this encounter Nursing Notes * Colette Smith - 03/31/2023 11:32 AM CST Prior Authorization Approval Date Entered: 03/31/23 11:20 AM Procedure: Left knee Euflexxa series Provider: Dr. Armendariz Location[facility] Insurance: [facility] Contact/Submission: Sofia Redmond Fax Attached: Yes ILIZING MACHINE OPERATOR * Colette Smith - 03/23/2023 3:15 PM CDT Prior Authorization Pending Date Entered: 03/23/23 3:15 PM Procedure: Left knee Euflexxa Provider: Dr. Armendariz Location: [facility] Insurance: [facility] Contact/Submission: Sofia Redmond * Colette Smith - 03/19/2023 10:43 AM CDT Still pending completed office notes. * Colette Smith - 03/09/2023 1:57 PM CDT Pending completed office notes. * Geneva Weiss - 03/09/2023 8:13 AM CDT To Whom it May Concern: We are requesting Prior Authorization regarding the patient???s Worker???s Compensation. The prior authorization process has been started and we will await approval from the Prior Authorization team.Once approval has been granted we will assist in contacting the patient or scheduling the patient for their appropriate services. Patient Name Felecia WRIGHT 1995 Body Part Left knee Procedure Name Left knee Euflexxa series of injections CPT Code(s) Diagnosis Left knee DJD ICD-10 Code(s) M17.12 Ordering Provider Luke Armendariz MD Provider Service/Surgery Location [facility] Geneva Weiss 03/09/2023, 8:13 AM documented in this encounter Plan of Treatment Not on file documented as of this encounter Visit Diagnoses Not on filedocumented in this encounter Care Teams Town Administrator Relationship Specialty Start Date End Date Clinician, Not Found, [place] [address] PCP - General 10/19/13 documented as of this encounter
--- OUTSIDE RECORDS SUMMARY | 2023-06-16 07:40 | XMS_ITS | Encounter Summary ---
Author Name Unknown Organization [facility] Address [address], [place] [address] Care Team Providers Care Nursing Home Assistant Name Role Phone Clinician, Not Found MD Primary Care Provider Un available Reason for Referral * Procedure/Equipment (Routine) - Incomplete Specialty Diagnoses / Procedures Referred By Contac t Referred To Contact Diagnoses Left knee pain, unspecified chronicity Procedures MR Knee Lt WO IV Cont Leo Jarquin MD [address] [address] Referral ID Status Reason Start Date Expiration Date V isits Requested Visits Authorized [id number] Incomplete 02/02/2023 05/03/2024 1 1 * Procedure/Equipment (Routine) - Incomplete Specialty Diagnoses / Procedures Referred By Contac t Referred To Contact Diagnoses Left knee pain, unspecified chronicity Procedures XR Knee Rt 3 Views Comparison Leo Jarquin MD [address] [address] Referral ID Status Reason Start Date Expiration Date V isits Requested Visits Authorized [id number] Incomplete 02/02/2023 05/03/2024 1 1 * Procedure/Equipment (Routine) - Incomplete Specialty Diagnoses / Procedures Referred By Contac t Referred To Contact Diagnoses Left knee pain, unspecified chronicity Procedures XR Knee Lt 4 Views Leo Jarquin MD [address] [address] Referral ID Status Reason Start Date Expiration Date V isits Requested Visits Authorized [id number] Incomplete 02/02/2023 05/03/2024 1 1 Reason for Visit * Reason Comments CONSULT Left knee Encounter Details Date Type Department Care Team Description 02/02/2023 9:20 AM CDT Office Visit [facility] [address] [facility] [place], [place] [phone] Leo Jarquin MD [address] [place] [id number] Left knee pain, unspecified chronicity (Primary Dx) Social History Tobacco Use Types Packs/Day Years Used Date Smoking Tobacco: Never Alcohol Use Standard Drinks/Week Comments No 0 (1 standard drink = 0.6 oz pur e alcohol) Sex and Gender Information Value Date Recorded Sex Assigned at Not on file Gender Identity Not on file Sexual Orientation Not on file documented as of this encounter Last Filed [...] Mass Index 38.37 02/02/2023 9:26 AM CDT documented in this encounter Progress Notes * Leo Jarquin MD - 02/02/2023 12:00 AM CDT NAME: FLAQUITO PLUMMER CSN: [id number] CLINIC NOTE DATE OF SERVICE: 02/02/2023 : 1995 CHIEF COMPLAINT: Left knee pain. HISTORY OF PRESENT ILLNESS: Flaquito Plummer is a 27-year-old female, who presents to clinic todayin consultation of her left knee. Of note, she has a history of an MPFL reconstruction with Dr. Jarquin on 09/02/2012. The postoperative course was uncomplicated and she was doing well up until February of 2021. 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 She noticed swelling at that time. Shewas initially seen in Urgent Care. A fracture was ruled out. She underwent 6 months of physical therapy including taping of her patella and quad strengthening. She did notice some improvement. However, she continues to have pain. The pain is at the medial aspect of her knee. It does continue to swell. She does notice a catching sensation and subjective instability. She has most of her difficulty with stairs, squats, and while kneeling. She denies any numbness or paresthesia, or radiation of thepain. PAST MEDICAL HISTORY: PCOS, Deric's thyroid, insulin resistance, and migraines. PAST SURGICAL HISTORY: Left knee MPFL reconstruction with Dr. Jarquin in 2012 and surgery on her rightknee in 2016. MEDICATIONS: Metformin, levothyroxine, propranolol, iron. ALLERGIES: CLINDAMYCIN. 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 She denies any tobacco or recreational drug use. FAMILY HISTORY: Positive for cancer and diabetes. REVIEW OF SYSTEMS: A 15-point review of systems was obtained. It is positive for glasses use, sinus infections, headache, migraines, thyroid issues, anemia, as well as musculoskeletal pain as noted above. PHYSICAL EXAM: GENERAL: The patient is awake, alert, answers questions appropriately. She is in no acute distress. Examination of her left knee today demonstrates skin is intact. Prior surgical incisions are well healed to scar formation without erythema or drainage. Sensation is intact light touch. Her foot is well perfused. She has range of motion from 0 to 125 degrees. She does have some mild crepitus with this. She is tender to palpation about the medial joint line. She has no tenderness topalpation elsewhere about the knee. She is stable to varus and valgus stress. She has negative Pearl. Negative anterior drawer and posterior drawer. She does have a positive Keily's, especially a bout the medial compartment. IMAGING: Plain films of the left knee were obtained today and I reviewed. This demonstrates a well-maintained joint space and alignment. She has no fractures or acute osseous abnormalities. IMPRESSION: The patient is a 27-year-old female, who presents to clinic today for evaluation of herleft knee. 1.Possible left knee medial meniscus tear. 2.Likely early patellofemoral arthritis. PLAN: Based on history, clinical exam, and imaging, the patient has the above problems. The etiology of her pain as well as treatment options were discussed. At this point, we would like to more further evaluate the soft tissues of the knee. We would recommend an MRI of her left knee to evaluate for any meniscal pathology as well as to better qualify the cartilage remaining, especially in her patellofemoral compartment. We will plan to have her follow up after the MRI to discuss its findings and final treatment plan. If she does have meniscal pathology that is amenable to surgical intervention, we can discuss that at that time. If her meniscus looks okay, it is likely that most of her pain is coming from her cartilage wear. At that point, we could entertain either viscosupplementation or corticosteroid injections. All of her questions were answered today, and she is in agreement with this plan. CHRISTIANO PERAZA MD Staff: LEO JARQUIN MD MAP/AQS /[id number] documented in this encounter Plan of Treatment Not on file documented as of this encounter Results * MR Knee Lt WO IV Cont (02/16/2023 5:07 PM CDT) Anatomical Region Laterality Modality Lower Extremity, Knee, Skeletal, Thigh, Leg, MSK Left Magnetic Resonance 02/16/2023 4:36 PM CDT Impressions 02/17/2023 8:11 AM CDT TECHNIQUE: Routine MRI of the left knee was performed without contrast. COMPARISON: 03/01/2012 FINDINGS: MEDIAL COMPARTMENT: Medial meniscus intact. Medial compartment cartilage intact. LATERAL COMPARTMENT: Lateral meniscus intact. Lateral compartment cartilage intact. PATELLOFEMORAL JOINT: 0.4 x 0.3 cm focus of chondral heterogeneity and obliquely-oriented full-thickness chondral fissuring involving the proximal portion of the lateral patellar facet (series 9, images 20-21; series 8, image 8), new compared to prior exam, and with mild-moderate underlying osseous edema and subcentimeter subchondral cystic change noted in this region. Chondral heterogeneity over the distal portion of the lateral patellar facet. Questionable nondisplaced 0.3 cm superficial chondral flap involving the distal margin of the medial patellar facet (series 8, image 12). Trochlear groove cartilage is intact. Trace physiologic joint fluid. No well-defined osteocartilaginous bodies. No drainable popliteal cyst. Low signal intensity thickening of the soft tissues along the medial margin of the medial patellar facet, postsurgical in nature versus reflecting mild reactive scarring of a diminutive medial patellar plica. LIGAMENTS AND TENDONS: The anterior and posterior cruciate ligaments are intact. The medial collateral ligament, posterior oblique ligament, lateral collateral ligament complex, popliteus tendon, and major posterior-lateral corner capsular structures are intact. The iliotibial band is intact. Only minimal, if any, edema is identified deep to the iliotibial band as it courses over the peripheral, non-articular surface of the lateral femoral condyle. ?? EXTENSOR MECHANISM: The distal quadriceps and patellar tendons are intact. Postsurgical changes of prior medial patellofemoral ligament reconstruction; the reconstruction graft demonstrates mild, non-edematous/minimally-edematous thickening/scarring at its attachment site onto the medial margin of the patella. Portions of the medial patellofemoral ligament reconstruction graft are mildly lax (series 8, images 10-11), however, there is no high-grade or full-thickness tearing of the medial patellofemoral ligament reconstruction graft. The medial patellar retinaculum is sightly-thickened/scarred laterally, postsurgical in nature. Specifically, no high-grade or full-thickness tearing of the medial patellar retinaculum is identified. Low signal intensity thickening/scarring of the lateral patellar retinaculum proximally. No significant lateral patellar tilting. No significant lateral patellar overhang on the distal femur. The trochlear groove is slightly shallow. The tibial tuberosity-trochlear groove distance measures 0.7 cm, which is within normal limits. Thin linear scar identified along the posterior aspect of Hoffa's fat pad. No significant edema within the superior-lateral aspect of Hoffa's fat pad. MARROW AND SOFT TISSUES: No acute fracture. No suspicious soft tissue mass lesions. IMPRESSION: 1. 0.4 x 0.3 cm focus of [...] the medial patella. However, there is no high-grade full-thickness tearing of the medial patellofemoral ligament reconstruction graft. 4. No meniscal tear, as clinically queried. Narrative Procedure Note Christiano Denton MD - 02/17/2023 IMPRESSION TECHNIQUE: Routine MRI of the left knee was performed without contrast. COMPARISON: 03/01/2012 FINDINGS: MEDIAL COMPARTMENT: Medial meniscus intact. Medial compartment cartilageintact. LATERAL COMPARTMENT: Lateral meniscus intact. Lateral compartmentcartilage intact. PATELLOFEMORAL JOINT: 0.4 x 0.3 cm focus of chondral heterogeneity andobliquely-oriented full-thickness chondral fissuring involving theproximal portion of the lateral patellar facet (series 9, images 20-21;series 8, image 8), new compared to prior exam, and with mild-moderateunderlying osseous edema and subcentimeter subchondral cystic change notedin this region. Chondral heterogeneity over the distal portion of thelateral patellar facet. Questionable nondisplaced 0.3 cm superficialchondral flap involving the distal margin of the medial patellar facet(series 8, image 12). Trochlear groove cartilage is intact. Tracephysiologic joint fluid. No well-defined osteocartilaginous bodies. Nodrainable popliteal cyst. Low signal intensity thickening of the softtissues along the medial margin of the medial patellar facet, postsurgicalin nature versus reflecting mild reactive scarring of a diminutive medialpatellar plica. LIGAMENTS AND TENDONS: The anterior and posterior cruciate ligaments areintact. The medial collateral ligament, posterior oblique ligament,lateral collateral ligament complex, popliteus tendon, and majorposterior-lateral corner capsular structures are intact. The iliotibialband is intact. Only minimal, if any, edema is identified deep to theiliotibial band as it courses over the peripheral, non-articular surfaceof the lateral femoral condyle. EXTENSOR MECHANISM: The distal quadriceps and patellar tendons are intact.Postsurgical changes of prior medial patellofemoral ligamentreconstruction; the reconstruction graft demonstrates mild,non-edematous/minimally-edematous thickening/scarring at its attachmentsite onto the medial margin of the patella. Portions of the medialpatellofemoral ligament reconstruction graft are mildly lax (series 8,images 10-11), however, there is no high-grade or full-thickness tearingof the medial patellofemoral ligament reconstruction graft. The medialpatellar retinaculum is sightly-thickened/scarred laterally, postsurgicalin nature. Specifically, no high-grade or full-thickness tearing of themedial patellar retinaculum is identified. Low signal intensitythickening/scarring of the lateral patellar retinaculum proximally. Nosignificant lateral patellar tilting. No significant lateral patellaroverhang on the distal femur. The trochlear groove is slightly shallow.The tibial tuberosity-trochlear groove distance measures 0.7 cm, which is withinnormal limits. Thin linear scar identified along the posterior aspect ofHoffa's fat pad. No significant edema within the superior-lateral aspectof Hoffa's fat pad. MARROW AND SOFT TISSUES: No acute fracture. No suspicious soft tissue masslesions. IMPRESSION: 1. 0.4 x 0.3 cm focus of chondral heterogeneity and uwotmidag-xmomayuidnsw-tkiyoqeou chondral fissuring involving the proximal portion of thelateral patellar facet. 2. Questionable nondisplaced 0.3 cm superficial chondral flap involvingthe distal margin of the medial patellar facet. 3. Low signal intensity scarring of the medial patellofemoral ligamentreconstruction graft, with slightly frayed, low signal intensity scarredfibers abutting the medial margin of the medial patella. However, there isno high-grade full-thickness tearing of the medial patellofemoral ligamentreconstruction graft. 4. No meniscal tear, as clinically queried. Leo Jarquin MD RAD MRI * XR Knee Rt 3 Views Comparison (02/02/2023 9:38 AM CDT) Anatomical Region Laterality Modality Lower Extremity, Knee Digital Ra diography Narrative 03/27/2023 9:17 AM CDT Plain films of the left knee. This demonstrates a well-maintained joint space and alignment. ??She has no fractures or acute osseous abnormalities. Leo Jarquin MD RAD GD * XR Knee Lt 4 Views (02/02/2023 9:38 AM CDT) Anatomical Region Laterality Modality Lower Extremity, Knee Digital Ra diography Narrative 03/27/2023 9:17 AM CDT Plain films of the left knee. This demonstrates a well-maintained joint space and alignment. ??She has no fractures or acute osseous abnormalities. Leo Jarquin MD RAD GD documented in this encounter Visit Diagnoses Diagnosis Left knee pain, unspecified chronicity- Primary Left knee pain, unspecified chronicity Left knee pain, unspecified chronicity documented in this encounter Care Teams Nursing Home Assistant Relationship Specialty Start Date End Date Clinician, Not Found, [place] [address] PCP - General 10/19/13 documented as of this encounter
--- OUTSIDE RECORDS SUMMARY | 2023-06-16 07:40 | XMS_ITS | Encounter Summary ---
Author Name Unknown Organization [facility] Address [address], [place] [address] Care Team Providers Care Supervisor Purification Name Role Phone Clinician, Not Found MD Primary Care Provider Un available Reason for Visit * Procedure/Equipment (Routine) - Incomplete Specialty Diagnoses / Procedures Referred By Contac t Referred To Contact Diagnoses Left knee pain, unspecified chronicity Procedures MR Knee Lt WO IV Cont Luke Armendariz MD [address] [facility] [place] [address] Referral ID Status Reason Start Date Expiration Date V isits Requested Visits Authorized [id number] Incomplete 02/02/2023 05/03/2024 1 1 Encounter Details Date Type Department Care Team Description 02/16/2023 4:40 PM CDT Ancillary Procedure [facility] [address] [place], [place] [id number] Luke Armendariz MD [address] [facility] [place] [id number] Left knee pain, unspecified chronicity Social History Tobacco Use Types Packs/Day Years Used Date Smoking Tobacco: Never Alcohol Use Standard Drinks/Week Comments No 0 (1 standard drink = 0.6 oz pur e alcohol) Sex and Gender Information Value Date Recorded Sex Assigned at Not on file Gender Identity Not on file Sexual Orientation Not on file documented as of this encounter Plan of Treatment Not on file documented as of this encounter Procedures Procedure Name Priority Date/Time Associated Diagnosis Comments MR KNEE LT WO IV CONT Routine 02/16/2023 5:07 PM CDT Left knee pain, unspecified chronicity documented in this encounter Results * MR Knee Lt [...] 0.3 cm focus of chondral heterogeneity and qilxxfkci-cbboqcxbnxqg-cdbdulrhs chondral fissuring involving the proximal portion of [...] 4. No meniscal tear, as clinically queried. Luke Armendariz MD RAD MRI documented in this encounter Visit Diagnoses Diagnosis Left knee pain, unspecified chronicity documented in this encounter Care Teams Supervisor Purification Relationship Specialty Start Date End Date Clinician, Not Found, [place] [address] PCP - General 10/19/13 documented as of this encounter
--- OUTSIDE RECORDS SUMMARY | 2023-06-16 07:40 | XMS_ITS | Encounter Summary ---
Author Name Unknown Organization [facility] Address [address], [place] [address] Care Team Providers Care Field Consultant Name Role Phone Clinician, Not Found MD Primary Care Provider Un available Reason for Visit * Procedure/Equipment (Routine) - Incomplete Specialty Diagnoses / Procedures Referred By Isi t Referred To Contact Diagnoses Left knee pain, unspecified chronicity Procedures XR Knee Rt 3 Views Comparison Luke Armendariz MD [address] [place] [address] [place] [address] Referral ID Status Reason Start Date Expiration Date V isits Requested Visits Authorized [id number] Incomplete 02/02/2023 05/03/2024 1 1 Encounter Details Date Type Department Care Team Description 02/02/2023 9:30 AM CDT Ancillary Procedure [facility] [address] [place], [place] [address] Luke Armendariz MD [address] [facility] [address] [place] [id number] Left knee pain, unspecified chronicity Social History [...] Procedure Name Priority Date/Time Associated Diagnosis Comments XR KNEE RT 3 VIEWS COMPARISON Routine 02/02/2023 9:38 AM CDT Left knee pain, unspecified chronicity XR KNEE LT 4 VIEWS Routine 02/02/2023 9: 38 AM CDT Left knee pain, unspecified chronicity documented in this encounter Results * XR Knee Rt 3 Views Comparison (02/02/2023 9:38 AM CDT) Anatomical Region Laterality Modality Lower Extremity, Knee Digital Ra diography Narrative 03/27/2023 9:17 AM CDT Plain films of the left knee. This demonstrates a well-maintained joint space and alignment. ??She has no fractures or acute osseous abnormalities. Luke Armendariz MD RAD GD * XR Knee Lt 4 Views (02/02/2023 9:38 AM CDT) Anatomical Region Laterality Modality Lower Extremity, Knee Digital Ra diography Narrative 03/27/2023 9:17 AM CDT Plain films of the left knee. This demonstrates a well-maintained joint space and alignment. ??She has no fractures or acute osseous abnormalities. Luke Armendariz MD RAD GD documented in this encounter Visit Diagnoses Diagnosis Left knee pain, unspecified chronicity documented in this encounter Care Teams Field Consultant Relationship Specialty Start Date End Date Clinician, Not Found, [place] [address] PCP - General 10/19/13 documented as of this encounter
--- OUTSIDE RECORDS SUMMARY | 2023-06-16 07:41 | XMS_ITS | Encounter Summary ---
Author Name Unknown Organization [facility] Address [address] [place] [address] Care Team Providers Care Naval Aircrewman Mechanical Name Role Phone Jerry Patterson M.D. Primary Care Provider [phone] Reason for Visit * Reason Comments Med Refill Encounter Details Date Type Department Care Team (Late st Contact Info) Description 04/30/2023 Refill Department of Endocrinology in [place], [place] [address] [place] [phone] Meryl Julio M.D. [address] [place] [phone] Med Refill Social History Tobacco Use Types Packs/Day Years [...] often do you attend chur ch or shinto services? 1 to 4 times per year 10/13/2022 Do you belong to any clubs o r organizations such as samaritan groups, unions, fraternal or [...] Answer Date Recorded PHQ-2 Score 0 08/14/2021 [facility] - Occupational Stress [...] money to buy more. Never true 10/14/19 Within the past 12 months, t he [...] or slept in a mcc (including now)? No 10/13/2022 Nutrition Answer Date [...] Sex Assigned at Female 06/21/2021 12:52 PM FLIGHT INSTRUCTOR Gender Identity Female 06/21/2021 12:52 PM FLIGHT INSTRUCTOR Sexual Orientation Straight 06/21/2021 12 :52 PM FLIGHT INSTRUCTOR documented as of this encounter Miscellaneous Notes * Telephone Encounter - Meryl Julio M.D. - 05/01/2023 12:06 PM CST Patient now seeing another rubber goods finisher HT INSTRUCTOR documented in this encounter Plan of Treatment Upcoming Encounters Date Type Department Care Team (Latest Contact Info) Description 06/22/2023 3:00 PM FLIGHT INSTRUCTOR Office Visit Department of Endocrinology in [place], [place] [address] [place] [phone] Meryl Julio M.D. [address] [place] [phone] Discharge Disposition: Home or Self Care documented as of this encounter Visit Diagnoses Diagnosis Polycystic Ovary Syndrome- Primary documented in this encounter Additional Health Concerns Assessment Noted Time PHQ-9 Depression Total Score: 0 07/13/19 14 2:23 PM FLIGHT INSTRUCTOR documented as of this encounter Care Teams [employer]cre[employer] Mechanical Relationship Specialty Start Date End Date Jerry Patterson M.D. [address] [place] [phone] PCP - General Family Medicine 05/06/21 documented as of this encounter
--- OUTSIDE RECORDS SUMMARY | 2023-06-16 07:41 | XMS_ITS ---
Author Name Unknown Organization [facility] Address [address] [place] [address] Care Team Providers Care Fleet Driver Name Role Phone Unavailable Unavailable Unavailable Surgery Details Not on file Complications Check Surgery Details section. Procedure Estimated Blood Loss Check Surgery Details section. Procedure Findings Check Surgery Details section. Procedure Specimens Taken Check Surgery Details section.
--- OUTSIDE RECORDS SUMMARY | 2023-06-16 07:41 | XMS_ITS | Encounter Summary ---
Author Name Unknown Organization [facility] Address [address] [place] [address] Care Team Providers Care Hand Cultivator Name Role Phone Jerry Patterson M.D. Primary Care Provider [phone] Encounter Details Date Type Department Care Team (Latest Contact Info) Description 09/05/2022 11:50 AM CDT - 09/05/2022 11:59 PM CDT Hospital Encounter Department of Laboratory Medicine in [place], [place] [address] [place] [phone] Meryl Julio M.D. [facility] [place] [phone] Thyroiditis Deric's; Hypothyroidism Primary Discharge Disposition: Home or Self Care Social History Tobacco Use Types Packs/Day Years Used Date Smoking Tobacco: Never Smokeless Tobacco: Never Alcohol Use Standard Drinks/Week Comments No 0 (1 standard drink = 0.6 oz pur e alcohol) Humiliation, Afraid, Rape, and Kick questionnair e Answer Date Recorded Within the last year, have y ou been afraid of your partner or ex-partner? No 06/21/2021 Within the last year, have y ou been humiliated or emotionally abused in other ways by your partner or ex-partner? No Within the last year, have y ou been kicked, hit, slapped, or otherwise physically hurt by your partner or ex-partner? No 06/21/2021 Within the last year, have y ou been raped or forced to have any kind of sexual activity by your partner or ex-partner? No 06/21/2021 Social Connection and Isolat ion Panel [NHANES] Answer Date Recorded In a typical week, how many times do you talk on the phone with family, friends, or neighbors? Once a week 06/21/2021 How often do you get togethe r with friends or relatives? Once a week 06/21/2021 How often do you attend chur or hindu services? More than 4 times per year 06/21/2021 Do you belong to any clubs o r organizations such as orthodoxy groups, unions, fraternal or athletic groups, or school groups? Yes 06/21/2021 How often do you attend meet ings of the clubs or organizations you belong to? More than 4 times per year 06/21/2021 Are you , , di vorced, , never , or living with a partner? 06/21/2021 AUDIT-C Answer Date Recorded Q1: How often do you have a drink containing alc ohol? Never 06/21/2021 Average Number of Drinks Not on file 022 Frequency of Binge Drinking Not on file 05/26 Overall Financial Resource Strain (CARDIA) Answe r Date Recorded How hard is it for you to pa y for the very basics like food, housing, medical care, and heating? Somewhat hard 06/21/2021 PHQ-2 Answer Date Recorded PHQ-2 Score 0 08/14/2021 [facility] - Occupational Stress Questionnaire Answer Date Recorded Do you feel stress - tense, restless, nervous, or anxious, or unable to sleep at night because your mind is troubled all the time - these days? To some extent 06/21/2021 Exercise Vital Sign Answer Date Recorde d On average, how many days pe r week do you engage in moderate to strenuous exercise (like a brisk walk)? 3 days 06/21/2021 On average, how many minutes do you engage in exercise at this level? 60 min 06/21/2021 Hunger Vital Sign Answer Date Recorded Within the past 12 months, y ou worried that your food would run out before you got the money to buy more. Never true 06/21/19 Within the past 12 months, t he food you bought just didn't last and you didn't have money to get more. Never true 06/21/2021 PRAPARE - Transportation Answer Date Re corded In the past 12 months, has l ack of transportation kept you from medical appointments or from getting medications? No 05/26 In the past 12 months, has l ack of transportation kept you from meetings, work, or from getting things needed for daily living? No 06/21/2021 Housing Stability Vital Sign Answer Jasson e Recorded In the last 12 months, was t here a time when you were not able to pay the mortgage or rent on time? No 06/21/2021 In the last 12 months, how many places have you lived? 1 06/21/2021 In the last 12 months, was t here a time when you did not have a steady place to sleep or slept in a fdc (including now)? No 06/21/2021 Nutrition Answer Date Recorded Nutrition: EVOO Fat Source No 06/21 On average, how many serving s of fruits and vegetables do you eat per day (serving size is equal to 1 cup or approximately the size of a tennis ball)? 2-3 06/21/2021 Dental Answer Date Recorded Dental: Regular Dentist Yes 06/21/19 Employment Answer Date Recorded Employment status Unemployed/not in th e paid workforce but seeking employment 06/21/2021 Education Answer Date Recorded What is the highest level of school you have completed or the highest degree you have received? Bachelor's degree (e.g., BA, AB, BS) 06/21/2021 Sex and Gender Information Value Date Recorded Sex Assigned at Female 06/21/2021 12:52 PM VISOR INSTALLER Gender Identity Female 06/21/2021 12:52 PM VISOR INSTALLER Sexual Orientation Straight 06/21/2021 12 :52 PM VISOR INSTALLER documented as of this encounter Medications at Time of Discharge Medication Sig Dispensed Refills Start Date End Date TENS unit and electrodes (Cefaly) combo packIndications:Migra ine Headache Acute treatment is for 60 minutes. Preventive treatment is 20 min per day. 1 each 0 08/17/2020 levothyroxine (SYNTHROID, LEVOTHROID) 100 mcg tablet Take one pill daily except Sundays 90 tablet 3 07/05/2022 09/07/2022 metFORMIN XR (GLUCOPHAGE-XR) 500 mg 24 hr tabletIndications:Ernst ycystic Ovary Syndrome Take 2 tablets (1,000 mg total) by mouth 2 (two) times a day. 360 tablet 3 04/29/2022 05/07/2023 propranoloL (INDERAL) 80 mg tablet Take 80 mg by mouth every 12 (twelve) hours. 0 09/30/2022 Vitron-C 65 mg iron- [address] tabletIndications:Res tless Leg Syndrome,Deficiency Iron TAKE 1 TABLET (65 MG OF IRON TOTAL) BY MOUTH EVERY EVENING. DO NOT CRUSH OR CHEW. 30 tablet 2 03/17/2022 05/01/2023 documented as of this encounter Plan of Treatment Upcoming Encounters Date Type Department Care Team (Latest Contact Info) Description 06/22/2023 3:00 PM VISOR INSTALLER Office Visit Department of Endocrinology in [address] [phone] Meryl Julio M.D. [address] [place] [phone] Discharge Disposition: Home or Self Care documented as of this encounter Procedures Procedure Name Priority Date/Time Associated Diagnosis Comments THYROID-STIMULATING HORMONE-SENSITIVE (S-TSH) Routine 09/05/2022 11:57 AM CDT Thyroiditis Deric's Hypothyroidism Primary T4 (THYROXINE), FREE, S Routine 09/05/2022 11:57 AM CDT Thyroiditis Deric's Hypothyroidism Primary documented in this encounter Results * (ABNORMAL) S-TSH (Thyroid-Stimulating Hormone - Sensitive) (09/05/2022 11:57 AM CDT) TSH, Sensitive 10.8(H) 0.3 - 4.2 mIU/L 09/05/2022 4:02 PM CDT NPRG Blood (Blood, Venous) 09/05/2022 11:57 AM CDT 09/05/2022 3:34 PM CDT Meryl Julio M.D. LAB BLOOD ADD-ON [facility] [address] [place] [address], [facility] NPRG [address] [address] * T4 (Thyroxine), Free (09/05/2022 11:57 AM CDT) T4 (Thyroxine), Free, P 1.3 0.9 - 1.7 ng/dL 09/05/2022 4:02 PM CDT NPRG Comment: Biotin has been identified by the preconstruction manager as a potential interfering substance. Higher concentrations of biotin may be found in multivitamins, hair/nail supplements, and workout supplements. If the result does not match clinical observations, repeat testing after patient refrains from the use of supplements for at least 12 hours. Blood (Blood, Venous) 09/05/2022 11:57 AM CDT 09/05/2022 3:34 PM CDT Meryl Julio M.D. LAB BLOOD ADD-ON Performing Organization Address City/[facility]/ZIP Co de Phone Number [facility] [address] [place] [phone], [facility] NPRG [address] [address] documented in this encounter Visit Diagnoses Diagnosis Thyroiditis Deric's Hypothyroidism Primary documented in this encounter Additional Health Concerns Assessment Noted Time PHQ-9 Depression Total Score: 0 07/13/19 14 2:23 PM VISOR INSTALLER documented as of this encounter Care Teams Hand Cultivator Relationship Specialty Start Date End Date Jerry Patterson M.D. [address] [place] [phone] PCP - General Family Medicine 05/06/21 documented as of this encounter
--- OUTSIDE RECORDS SUMMARY | 2023-06-16 07:41 | XMS_ITS | Referral Summary ---
Author Name Unknown Organization [facility] Address [address] [place] [address] Care Team Providers Care Raisin Washer Name Role Phone Jerry Patterson M.D. Primary Care Provider [phone] Source Comments Patient records contain information from all sites at [facility]. For routine questions regarding patient records, call [phone] during business hours, M-F 8:00 AM - 5:00 PM Central Time. Record requests for emergency care only can be directed to [phone] at any time.[facility] Encounters Date Type Department Care Team Description 05/12/2023 Clinical Communication Department of Endocrinology in [address] [phone] Nery Rodríguez R.N. lab for endocrine apt 04/30/2023 Refill Department of Endocrinology in [address] [phone] Meryl Julio M.D. Med Refill 04/30/2023 Refill Department of Sleep Medicine in [place] [address] [place] [phone] Allison Collins M.D. Med Refill 03/31/2023 Orders Only [facility] Jerry Patterson M.D. from Last 3 Months Allergies Active Allergy Reactions Criticality Noted Date [...] Overview: Added automatically from request for surgery [id number] Sinusitis Chronic Maxillary 10/04/2018 Rhinitis Allergic Due [...] BMI 40-44 posted on 05/22 at 08:45 BUFFING WHEEL INSPECTOR. Immunizations Name Administration Dates Next Due 4vHPV [...] older)(PF) 02/22/2019 typhoid vaccine, parenteral (discontinued) 07/24/2010 Social History Tobacco Use Types Packs/Day Years [...] friends, or neighbors? Twice a week 10/14/19 23 How often do you get togethe r with friends or relatives? Once a week 10/13/2022 How often do you attend chur ch or roman catholic services? 1 to 4 times per year 10/13/2022 Do you belong to any clubs o r organizations such as mandaeism groups, unions, fraternal or [...] Answer Date Recorded PHQ-2 Score 0 08/14/2021 [facility] - Occupational Stress Questionnaire Answer Date Recorded [...] slept in a long term (including now)? No 10/13/2022 Nutrition Answer Date [...] Sex Assigned at Female 06/21/2021 12:52 PM BUFFING WHEEL INSPECTOR Gender Identity Female 06/21/2021 12:52 PM BUFFING WHEEL INSPECTOR Sexual Orientation Straight 06/21/2021 12 :52 PM BUFFING WHEEL INSPECTOR Last Filed Vital Signs Vital Sign Reading [...] 169 cm (5' 6.54) 04/29/2022 3:07 PM BUFFING WHEEL INSPECTOR Body Mass Index 39.63 04/29/2022 3:07 PM BUFFING WHEEL INSPECTOR Plan of Treatment Upcoming Encounters Date Type Department Care Team (Latest Contact Info) Description 06/22/2023 3:00 PM BUFFING WHEEL INSPECTOR Office Visit Department of Endocrinology in [address] [phone] Meryl Julio M.D. [address] [place] [phone] Discharge Disposition: Home or Self Care Medical Devices Implanted Type Area L D Rn Device Identifier Shelf Expiration Date Model / Serial / Lot Hardware E.G. Pins/Screws/Ro ds Hardware e.g. pins/screws/ rods Left: Knee Advance Directives For more information, please contact: [phone] Latest Code Status on File Code Status Date Activated Date Inactivated Comments Full Code 10/08/2018 4:08 PM 10/08/2018 6:52 PM Question Answer Comments Full Code: Not Discussed Due to: Patient not available Care Teams Raisin Washer Relationship Specialty Start Date End Date Jerry Patterson M.D. [address] [place] [phone] PCP - General Family Medicine 05/06/21
--- OUTSIDE RECORDS SUMMARY | 2023-06-16 07:41 | XMS_ITS | Encounter Summary ---
Author Name Unknown Organization [facility] Address [address] [place] [address] Care Team Providers Care Claims Account Specialist Name Role Phone Jerry Patterson M.D. Primary Care Provider [phone] Encounter Details Date Type Department Care Team (Latest Contact Info) Description 09/07/2022 Orders Only Department of Endocrinology in [place], [place] [address] [place] [phone] Meryl Julio M.D. [address] [place] [phone] Hypothyroidism Primary (Primary Dx) Social History Tobacco Use Types [...] 06/21/2021 How often do you attend chur ch or mormon services? More than 4 times per year 06/21/2021 Do you belong to any clubs o r organizations such as faith groups, unions, fraternal or [...] Answer Date Recorded PHQ-2 Score 0 08/14/2021 [facility] - Occupational Stress [...] or slept in a residential (including now)? No 06/21/2021 Nutrition Answer Date [...] Sex Assigned at Female 06/21/2021 12:52 PM BACK WINDER Gender Identity Female 06/21/2021 12:52 PM BACK WINDER Sexual Orientation Straight 06/21/2021 12 :52 PM BACK WINDER documented as of this encounter Plan of Treatment Upcoming Encounters Date Type Department Care Team (Latest Contact Info) Description 06/22/2023 3:00 PM BACK WINDER Office Visit Department of Endocrinology in [address] [phone] Meryl Julio M.D. [address] [place] [phone] Discharge Disposition: Home or Self Care documented as of this encounter Results * (ABNORMAL) S-TSH (Thyroid-Stimulating Hormone - Sensitive) (11/05/2022 11:14 AM CDT) TSH, Sensitive 5.1(H) 0.3 - 4.2 mIU/L 11/05/2022 4:13 PM CDT NPR[facility] Blood (Blood, Venous) 11/05/2022 11:14 AM CDT 11/05/2022 3:32 PM CDT Meryl Julio M.D. LAB BLOOD ADD-ON Performing Organization Address [facility] Co de Phone Number [facility] [address] [place] [phone], [facility] NPRG [address] [address] * T4 (Thyroxine), Free (11/05/2022 11:14 AM CDT) T4 (Thyroxine), Free, P 1.7 0.9 - 1.7 ng/dL 11/05/2022 4:13 PM CDT NPRG Comment: Biotin has been identified by the plastic press molder as a potential interfering substance. Higher concentrations of biotin may be found in multivitamins, hair/nail supplements, and workout supplements. If the result does not match clinical observations, repeat testing after patient refrains from the use of supplements for at least 12 hours. Blood (Blood, Venous) 11/05/2022 11:14 AM CDT 11/05/2022 3:32 PM CDT Meryl Julio M.D. LAB BLOOD ADD-ON Performing Organization Address City/[facility] Co de Phone Number [facility] [address] [place] [address], [facility] [address] [address] documented in this encounter Visit Diagnoses Diagnosis Hypothyroidism Primary- Primary documented in this encounter Additional Health Concerns Assessment Noted Time PHQ-9 Depression Total Score: 0 07/13/19 14 2:23 PM BACK WINDER documented as of this encounter Care Teams Claims Account Specialist Relationship Specialty Start Date End Date Jerry Patterson M.D. [address] [place] [phone] PCP - General Family Medicine 05/06/21 documented as of this encounter
--- OUTSIDE RECORDS SUMMARY | 2023-06-16 07:41 | XMS_ITS | Encounter Summary ---
Author Name Unknown Organization [facility] Address [address] [place] [address] Care Team Providers Care Sandblast Operator Name Role Phone Jerry Patterson M.D. Primary Care Provider [phone] Reason for Referral * Outpatient (Routine) - Authorized Specialty Diagnoses / Procedures Referred By Contac t Referred To Contact Neurology Diagnoses Migraine Headache Almita Siegel APRN, C.N.P., M.S.N. [address] [place] [address] [facility] Region Referral ID Status Reason Start Date Expiration Date V isits Requested Visits Authorized [id number] Authorized 10/14/2022 10/13/2025 1 1 Reason for Visit * Reason Comments Follow-up Migraine F/U * Appointment Request (Routine) - Closed Specialty Diagnoses / Procedures Referred By Contac t Referred To Contact Neurology Referral ID Status Reason Start Date Expiration Date Visits Re quested Visits Authorized [id number] Closed 09/30/2022 09/30/2023 1 1 Encounter Details Date Type Department Care Team ([facility] st Contact Info) Description 10/14/2022 9:00 AM CDT Office Visit Department of Neurology in [place], [place] [address] [place] [address] Almita Siegel APRN, C.N.P., M.S.N. [address] [place] [address] Migraine Headache (Primary Dx) Social History Tobacco Use Types [...] 10/13/2022 How often do you attend chur or restorationism services? 1 to 4 times per year 10/13/2022 Do you belong to any clubs o r organizations such as hinduism groups, unions, fraternal or [...] Answer Date Recorded PHQ-2 Score 0 08/14/2021 [facility] - Occupational Stress Questionnaire Answer Date Recorded [...] or slept in a usp (including now)? No 10/13/2022 Nutrition Answer Date [...] Sex Assigned at Female 06/21/2021 12:52 PM WELLNESS PROGRAM MANAGER Gender Identity Female 06/21/2021 12:52 PM WELLNESS PROGRAM MANAGER Sexual Orientation Straight 06/21/2021 12 :52 PM WELLNESS PROGRAM MANAGER documented as of this encounter Last Filed Vital Signs Vital Sign Reading Time Taken Comments Blood Pressure 114/76 10/14/2022 8:49 AM CDT Pulse 81 10/14/2022 8:49 AM CDT Temperature - - Respiratory Rate - - Oxygen Saturation - - Inhaled Oxygen Concentration - - Weight 113 kg (249 lb 9 oz) 10/14/2022 8:49 AM C DT Height - - Body Mass Index 39.63 04/29/2022 3:07 PM WELLNESS PROGRAM MANAGER documented in this encounter Patient Instructions * Patient Instructions* Almita Siegel APRN, C.N.P., M.S.N. - 10/14/2022 9:00 AM CDT It was a pleasure seeing you today, below are your follow-up instructions: Continue with propranolol 80 mg ER twice daily Zofran rx refilled -- can take this with benadryl and Imitrex during migraine Can place PT consult moving forward Follow-up in 6 months, sooner if needed documented in this encounter Progress Notes * Almita Siegel APRN, C.N.P., M.S.N. - 10/14/2022 9:00 AM CDT SUBJECTIVE REFERRAL No ref. provider found CHIEF COMPLAINT / REASON FOR VISIT: Ms. Cardenas presents today in follow-up of chronic migraines and associated treatment regimen. HISTORY OF PRESENT ILLNESS: Ms. Cardenas is a 27 y.o. female with past medical history of MAGALIE (on CPAP), polycystic ovary syndrome, Deric's thyroiditis (follows with Endocrinology), and history of nephrolithiasis. Ms. Cardenas returns today for subsequent evaluation and assessment of the effectiveness of treatments suggested at her previous visit on 06/21/21. Ms. Cardenas was last seen and evaluated by this author. At the time of her last evaluation she was maintained on the preventative therapy of propranolol, 80 mg ER twice daily. On presentation today Ms. Cardenas reports a decrease in the frequency and intensity of headaches since last evaluation. Since last evaluation Ms. Cardenas has been maintained on the prophylactic therapyof propranolol, 80 mg ER BID. In the past 4 weeks Ms. Cardenas reports having had 2 migraine days in the past 7 months (last visit reported 1 headache days with none being severe). Since last evaluation the headaches have not changed in characteristic or location. Today, patient states that she is doing well. She endorses 2 migraines since giving to her daughter 7 months ago. She is tolerating the propranolol well and is inquiring about whether or not she can use her triptan and Zofran for acute migraine treatment given that she is . She does also endorse that she had neck imaging completed recently per her chiropractor and her imaging demonstrated spinal changes in her neck. 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 Current headache regimen: -Replax 40 mg -Propranolol 80 mg ER bid -Tylenol: help score caller headaches -Ibuprofen: help score caller headaches Past headache medications (reason for discontinuation): -Naproxen -- hard on stomach after surgery -Rizatriptan 10 mg -- can't remember details, made her sleepy -Imitrex 100 mg -- always had to redose VASCULAR RISK FACTORS: No history of asthma, heart attack, stroke, or glaucoma. FAMILY HISTORY: Patient's grandma and mom both have migraines SOCIAL HISTORY: -Tobacco use: None -Alcohol use: None -Illicit drug use: None -Sleep: Variable due to being up with daughter throughout the night OBJECTIVE Vitals: 10/14/22 0849 BP: 114/76 Pulse: 81 Results for orders placed or performed during the hospital encounter of 12/22/18 MR Brain without and with IV Contrast Narrative EXAM: MR BRAIN WITHOUT AND WITH IV CONTRAST COMPARISON: CT head and neck angiogram of 08/04/2018. CT temporal bone imaging of May 13, 2018. CT sinus study of 10/04/2018 reviewed FINDINGS: The ventricles and sulci are normal in size and configuration. There is no restricted diffusion or acute intracranial abnormality. No abnormal extra-axial fluid collection, mass/mass effect or evidence of hemorrhage. No pathologic postcontrast enhancement identified. The brainstem, posterior fossa and cervical medullary junction are preserved. Dedicated imaging through the internal auditory canals demonstrates no abnormal signal, mass or pathologic postcontrast enhancement. Normal intracranial intravascular flow voids are seen. The orbits, periorbital and paracavernous spaces are normal. There is right maxillary sinus mucosal thickening as seen by prior comparison. No air-fluid level. Remaining paranasal sinuses and mastoids have a normal appearance. No abnormality of the skull base or calvarium is identified. Impression No acute intracranial abnormality, mass/mass effect or pathologic postcontrast enhancement. Normal examination of the IACs. ASSESSMENT #1 Chronic migraines #2 PCOS #3 Neck pain PLAN Continue with propranolol 80 mg ER twice daily Zofran rx refilled -- can take this with benadryl and Imitrex during migraine Can place PT consult moving forward Follow-up in 6 months, sooner if needed DISCUSSION Ms. Cardenas is a very pleasant, 27-year-old, female who is presenting to the neurology clinic today for follow-up in regard to established diagnosis of chronic migraines and associated treatment regimen. As noted above, patient continues to tolerate propranolol well and this medication has been beneficial for both the frequency and intensity of her migraines. Therefore, we will not make any changes to her preventative regimen today. She is in agreement with this. For acute migraine treatment, she is able to utilize Zofran and her triptan medication. Refill for Zofran placed today, otherwise no changes made. Patient is in agreement with this. For her ongoing neck pain, I did offer a physical therapy consult. I will place this referral once patient inquires about whether or not she can have this completed where she is already undergoing other types of physical therapy. She will message me on the patient portal in reference to this next week. I would like to see the patient back in the clinic in 6 months. However, if the patient has any questions or concerns before then she can reach me via the portal, by calling the clinic, or by coming back into the neurology clinic to be evaluated. Patient verbalizes understanding and is in agreementwith this plan. RECOMMENDATIONS 1. Preventive therapy: Continue with propranolol, 80 mg ER twice daily 2. For acute treatment of mild to moderate headaches I am suggesting [id number] medication asneeded, but limit the use to no more than 12-14 days a month or 3 days per week. 3. For acute treatment of severe headaches or headache that are unresponsive to the above treatment, I recommend the use of a triptan as needed, but limit the use to no more than 9 days per month. 4. For nausea associated with a headache I recommend ondansetron, 4 mg as needed, but not more than9 days per month. 5. Follow-up is recommended in 6 months, or sooner if needed. A successful preventive will be one that decreases the headache frequency by at least 50%. Ms. Cardenas was given instructions for the dosing and titration and the common side effects of propranolol. Patient education: The patient was ready to learn and had no apparent learning barriers. Their learning preferences includes listening. The diagnosis and treatment plans were explained and the patient expressed understanding of the content. documented in this encounter Plan of Treatment Upcoming Encounters Date Type Department Care Team (Latest Contact Info) Description 06/22/2023 3:00 PM WELLNESS PROGRAM MANAGER Office Visit Department of Endocrinology in [address] [phone] Meryl Julio M.D. [facility] [place] [phone] Discharge Disposition: Home or Self Care Scheduled Referrals Name Type Priority Associated Diagnoses Orde r Schedule Neurology office visit (clinic) Outpatient Referral Routine Migraine Headache Expected: 04/16/2023 (Approximate), Expires: 01/15/2024 documented as of this encounter Visit Diagnoses Diagnosis Migraine Headache- Primary documented in this encounter Additional Health Concerns Assessment Noted Time PHQ-9 Depression Total Score: 0 07/13/19 14 2:23 PM WELLNESS PROGRAM MANAGER documented as of this encounter Care Teams Sandblast Operator Relationship Specialty Start Date End Date Jerry Patterson M.D. [address] [place] [phone] PCP - General Family Medicine 05/06/21 documented as of this encounter
--- OUTSIDE RECORDS SUMMARY | 2023-06-16 07:41 | XMS_ITS | Encounter Summary ---
Author Name Unknown Organization [facility] Address [address] [place] [address] Care Team Providers Care Head Waitress Name Role Phone Jerry Patterson M.D. Primary Care Provider [phone] Encounter Details Date Type Department Care Team (Latest Contact Info) Description 07/04/2022 11:26 AM JUVENILE OFFICER - 07/04/2022 11:59 PM [facility] Hospital Encounter Department of Laboratory Medicine in [place] [address] [place] [phone] Meryl Julio M.D. [address] [place] [phone] Hypothyroidism Primary Discharge Disposition: Home or Self [...] often do you attend chur ch or anabaptist services? More than 4 times per year [...] Answer Date Recorded PHQ-2 Score 0 08/14/2021 [facility] Occupat ional Health - Occupational [...] or slept in a penitentiary (including now)? No 06/21/2021 Nutrition Answer Date [...] Sex Assigned at Female 06/21/2021 12:52 PM JUVENILE OFFICER Gender Identity Female 06/21/2021 12:52 PM JUVENILE OFFICER Sexual Orientation Straight 06/21/2021 12 :52 PM JUVENILE OFFICER documented as of this encounter Medications at [...] every morning before breakfast. 90 tablet 3 04/29/2022 07/05/2022 metFORMIN XR (GLUCOPHAGE-XR) 500 mg 24 hr [...] (Latest Contact Info) Description 06/22/2023 3:00 PM JUVENILE OFFICER Office Visit Department of Endocrinology in [address] [phone] Meryl Julio M.D. [address] [place] [phone] Discharge Disposition: Home or Self Care documented as of this encounter Procedures Procedure Name Priority Date/Time Associated Diagnosis Comments THYROID-STIMULATING HORMONE-SENSITIVE (S-TSH) Routine 07/04/2022 11:32 AM JUVENILE OFFICER Hypothyroidism Primary T4 (THYROXINE), FREE, S Routine 07/04/2022 11:32 AM JUVENILE OFFICER Hypothyroidism Primary documented in this encounter Results * (ABNORMAL) S-TSH (Thyroid-Stimulating Hormone - Sensitive) (07/04/2022 11:32 AM JUVENILE OFFICER) TSH, Sensitive 0.04(L) 0.3 - 4.2 mIU/L 07/04/2022 5:19 PM JUVENILE OFFICER MKTO Blood (Blood, Venous) 07/04/2022 11:32 AM JUVENILE OFFICER 07/04/2022 4:48 PM JUVENILE OFFICER Meryl Julio M.D. LAB BLOOD ADD-ON [facility] [address] [place] [address], [facility] [place] [address] [place] [address] * T4 (Thyroxine), Free (07/04/2022 11:32 AM JUVENILE OFFICER) T4 (Thyroxine), Free, P 1.7 0.9 - 1.7 ng/dL 07/04/2022 5:19 PM JUVENILE OFFICER [facility] Comment: Biotin has been identified by the housing management representative as a potential interfering substance. Higher concentrations of biotin may be found in multivitamins, hair/nail supplements, and workout supplements. If the result does not match clinical observations, repeat testing after patient refrains from the use of supplements for at least 12 hours. Blood (Blood, Venous) 07/04/2022 11:32 AM JUVENILE OFFICER 07/04/2022 4:48 PM JUVENILE OFFICER Meryl Julio M.D. LAB BLOOD ADD-ON Performing Organization Address City/[facility]/ZIP Co de Phone Number [facility] [address] [place] [address], [facility] [place] [address] [place] [phone] documented in this encounter Visit Diagnoses Diagnosis Hypothyroidism Primary documented in this encounter Additional Health Concerns Assessment Noted Time PHQ-9 Depression Total Score: 0 07/13/19 14 2:23 PM JUVENILE OFFICER documented as of this encounter Care Teams Head Waitress Relationship Specialty Start Date End Date Jerry Patterson M.D. [address] [place] [phone] PCP - General Family Medicine 05/06/21 documented as of this encounter
--- OUTSIDE RECORDS SUMMARY | 2023-06-16 07:41 | XMS_ITS | Encounter Summary ---
Author Name Unknown Organization [facility] Address [address] [place] [address] Care Team Providers Care Mortgage Loan Computation Clerk Name Role Phone Jerry Patterson M.D. Primary Care Provider [phone] Encounter Details Date Type Department Care Team (Late st Contact Info) Description 07/07/2022 Orders Only Department of Sleep Medicine in [address] [place] [phone] Allison Collins M.D. [address] [place] [address] [place] [phone] Obstructive Sleep Apnea Adult (Primary Dx) Social History Tobacco Use Types [...] often do you attend chur ch or jain services? More than 4 times per year 06/21/2021 Do you belong to any clubs o r organizations such as moravian groups, unions, fraternal or [...] Answer Date Recorded PHQ-2 Score 0 08/14/2021 [facility] Occupat ional Health - Occupational [...] or slept in a correction (including now)? No 06/21/2021 Nutrition Answer Date [...] Sex Assigned at Female 06/21/2021 12:52 PM CASE FOLDER Gender Identity Female 06/21/2021 12:52 PM CASE FOLDER Sexual Orientation Straight 06/21/2021 12 :52 PM CASE FOLDER documented as of this encounter Plan of Treatment Upcoming Encounters Date Type Department Care Team (Latest Contact Info) Description 06/22/2023 3:00 PM CASE FOLDER Office Visit Department of Endocrinology in [address] [phone] Meryl Julio M.D. [address] [place] [phone] Discharge Disposition: Home or Self Care documented as of this encounter Visit Diagnoses Diagnosis Obstructive Sleep Apnea Adult- Primary documented in this encounter Additional Health Concerns Assessment Noted Time PHQ-9 Depression Total Score: 0 07/13/19 14 2:23 PM CASE FOLDER documented as of this encounter Care Teams Mortgage Loan Computation Clerk Relationship Specialty Start Date End Date Jerry Patterson M.D. [address] [place] [phone] PCP - General Family Medicine 05/06/21 documented as of this encounter
--- OUTSIDE RECORDS SUMMARY | 2023-06-16 07:41 | XMS_ITS | Encounter Summary ---
Author Name Unknown Organization [facility] Address [address] [place] [address] Care Team Providers Care Data Technician Name Role Phone Jerry Patterson M.D. Primary Care Provider [phone] Encounter Details Date Type Department Care Team (Latest Contact Info) Description 01/15/2023 11:24 AM CDT - 01/15/2023 11:59 PM CDT Hospital Encounter Department of Laboratory Medicine in [place], [place] [address] [place] [phone] Meryl Julio M.D. [facility] [place] [phone] Hypothyroidism Primary Discharge Disposition: Home or Self [...] often do you attend chur ch or muslim services? 1 to 4 times per year 10/13/2022 Do you belong to any clubs o r organizations such as nondenominational groups, unions, fraternal or [...] Answer Date Recorded PHQ-2 Score 0 08/14/2021 [facility] Occupat ional Health - Occupational [...] or slept in a jail (including now)? No 10/13/2022 Nutrition Answer Date [...] Sex Assigned at Female 06/21/2021 12:52 PM FIELD ASSEMBLY SUPERVISOR Gender Identity Female 06/21/2021 12:52 PM FIELD ASSEMBLY SUPERVISOR Sexual Orientation Straight 06/21/2021 12 :52 PM FIELD ASSEMBLY SUPERVISOR documented as of this encounter Medications at Time of Discharge Medication Sig Dispensed Refills Start Date End Date levothyroxine (SYNTHROID, LEVOTHROID) 112 mcg tablet Take 1 tablet (112 mcg total) by mouth every morning before breakfast. 90 tablet 1 11/05/2022 ondansetron ODT (ZOFRAN-ODT) 4 mg disintegrating tabletIndications:Migra ine Headache Dissolve 1 tablet (4 mg total) in the mouth every 8 (eight) hours as needed for nausea or vomiting. 20 tablet 1 10/14/2022 propranoloL (INDERAL LA) 80 mg 24 hr capsuleIndications:Migr agustina Headache Take 1 capsule (80 mg total) by mouth 2 (two) times a day. 60 capsule 11 10/09/2022 10/09/2023 TENS unit and electrodes (Cefaly) combo packIndications:Migrain e Headache Acute treatment is for 60 minutes. Preventive treatment is 20 min per day. 1 each 0 08/17/2020 metFORMIN XR (GLUCOPHAGE-XR) 500 mg 24 hr tabletIndications:Polyc ystic Ovary Syndrome Take 2 tablets (1,000 mg total) by mouth 2 (two) times a day. 360 tablet 3 04/29/2022 05/07/2023 Vitron-C 65 mg iron- [address] tabletIndications:Restl ess Leg Syndrome,Deficiency Iron TAKE 1 TABLET (65 MG OF IRON TOTAL) BY MOUTH EVERY EVENING. DO NOT CRUSH OR CHEW. 30 tablet 2 03/17/2022 05/01/2023 documented as of this encounter Plan of Treatment Upcoming Encounters Date Type Department Care Team (Latest Contact Info) Description 06/22/2023 3:00 PM FIELD ASSEMBLY SUPERVISOR Office Visit Department of Endocrinology in [address] [phone] Meryl Julio M.D. [address] [place] [phone] Discharge Disposition: Home or Self Care documented as of this encounter Procedures Procedure Name Priority Date/Time Associated Diagnosis Comments THYROID-STIMULATING HORMONE-SENSITIVE (S-TSH) Routine 01/15/2023 11:27 AM CDT Hypothyroidism Primary T4 (THYROXINE), FREE, S Routine 01/15/2023 11:27 AM CDT Hypothyroidism Primary documented in this encounter Results * S-TSH (Thyroid-Stimulating Hormone - Sensitive) (01/15/2023 11:27 AM CDT) TSH, Sensitive 2.1 0.3 - 4.2 mIU/L 01/15/2023 4:02 PM CDT [facility] Blood (Blood, Venous) 01/15/2023 11:27 AM CDT 01/15/2023 3:40 PM CDT Meryl Julio M.D. LAB BLOOD ADD-ON [facility] [address] [place] [address], [facility] [place] [address] [place] [address] * (ABNORMAL) T4 (Thyroxine), Free (01/15/2023 11:27 AM CDT) T4 (Thyroxine), Free, P 1.8(H) 0.9 - 1.7 ng/dL 01/15/2023 4:02 PM CDT [facility] Comment: Biotin has been identified by the medical appointment clerk as a potential interfering substance. Higher concentrations of biotin may be found in multivitamins, hair/nail supplements, and workout supplements. If the result does not match clinical observations, repeat testing after patient refrains from the use of supplements for at least 12 hours. Blood (Blood, Venous) 01/15/2023 11:27 AM CDT 01/15/2023 3:40 PM CDT Meryl Julio M.D. LAB BLOOD ADD-ON Performing Organization Address City/[facility]/ZIP Co de Phone Number [facility] [address] [place] [address], [address] [address] documented in this encounter Visit Diagnoses Diagnosis Hypothyroidism Primary documented in this encounter Additional Health Concerns Assessment Noted Time PHQ-9 Depression Total Score: 0 07/13/19 14 2:23 PM FIELD ASSEMBLY SUPERVISOR documented as of this encounter Care Teams Data Technician Relationship Specialty Start Date End Date Jerry Patterson M.D. [address] [place] [phone] PCP - General Family Medicine 05/06/21 documented as of this encounter
--- OUTSIDE RECORDS SUMMARY | 2023-06-16 07:41 | XMS_ITS | Encounter Summary ---
Author Name Unknown Organization [facility] Address [address] [place] [address] Care Team Providers Care Circus Rider Name Role Phone Jerry Patterson M.D. Primary Care Provider [phone] Reason for Visit * Reason Onset Date Comments Orders 09/30/2022 Encounter Details Date Type Department Care Team (Late st Contact Info) Description 09/30/2022 Clinical Communication Department of Occupational Medicine in [address] [place] [phone] Jordan Chang III, M.D., M.P.H. Orders Social History Tobacco Use Types Packs/Day Years [...] often do you attend chur ch or presybeterian services? More than 4 times per year 06/21/2021 Do you belong to any clubs o r organizations such as orthodox groups, unions, fraternal or [...] Answer Date Recorded PHQ-2 Score 0 08/14/2021 [facility] of Occupat ional Health - Occupational [...] the money to buy more. Never true 01/28/20 22 Within the past 12 months, t he [...] slept in a usp (including now)? No 06/21/2021 Nutrition Answer Date [...] Sex Assigned at Female 06/21/2021 12:52 PM WEATHER CLERK Gender Identity Female 06/21/2021 12:52 PM WEATHER CLERK Sexual Orientation Straight 06/21/2021 12 :52 PM WEATHER CLERK documented as of this encounter Plan of Treatment Upcoming Encounters Date Type Department Care Team (Latest Contact Info) Description 06/22/2023 3:00 PM WEATHER CLERK Office Visit Department of Endocrinology in [place], [place] [address] [place] [phone] Meryl Julio M.D. [address] [place] [phone] Discharge Disposition: Home or Self Care documented as of this encounter Visit Diagnoses Not on filedocumented in this encounter Additional Health Concerns Assessment Noted Time PHQ-9 Depression Total Score: 0 07/13/19 14 2:23 PM WEATHER CLERK documented as of this encounter Care Teams Circus Rider Relationship Specialty Start Date End Date Jerry Patterson M.D. [address] [place] [phone] PCP - General Family Medicine 05/06/21 documented as of this encounter
--- OUTSIDE RECORDS SUMMARY | 2023-06-16 07:41 | XMS_ITS | Encounter Summary ---
Author Name Unknown Organization [facility] Address [address] [place] [address] Care Team Providers Care Surface Grinding Machine Hand Name Role Phone Jerry Patterson M.D. Primary Care Provider [phone] Reason for Visit * Reason Onset Date Comments lab for endocrine apt 05/12/2023 Encounter Details Date Type Department Care Team (Latest Contact Info) Description 05/12/2023 Clinical Communication Department of Endocrinology in [place], [place] [address] [place] [phone] Nery Rodríguez RSebastianNSebastian [address] [place] [phone] lab for endocrine apt Social History Tobacco Use Types Packs/Day Years [...] often do you attend chur ch or oriental orthodox services? 1 to 4 times per year 10/13/2022 Do you belong to any clubs o r organizations such as jehovah's witness groups, unions, fraternal [...] or slept in a retirement (including now)? No 10/13/2022 Nutrition Answer Date [...] Sex Assigned at Female 06/21/2021 12:52 PM FRAMING MILL OPERATOR HELPER Gender Identity Female 06/21/2021 12:52 PM FRAMING MILL OPERATOR HELPER Sexual Orientation Straight 06/21/2021 12 :52 PM FRAMING MILL OPERATOR HELPER documented as of this encounter Plan of Treatment Upcoming Encounters Date Type Department Care Team (Latest Contact Info) Description 06/22/2023 3:00 PM FRAMING MILL OPERATOR HELPER Office Visit Department of Endocrinology in [address] [address] Meryl Julio M.D. [address] [place] [address] Discharge Disposition: Home or Self Care Scheduled Orders Name Type Priority Associated Diagnoses Orde r Schedule T4 (Thyroxine), Free Lab Routine Thyroiditis Deric's Expected: 05/12/2023 (Approximate), Expires: 08/10/2024 S-TSH (Thyroid-Stimulating Hormone - Sensitive) Lab Routine Thyroiditis Deric's Expected: 05/12/2023 (Approximate), Expires: 08/10/2024 documented as of this encounter Visit Diagnoses Diagnosis Thyroiditis Deric's- Primary documented in this encounter Additional Health Concerns Assessment Noted Time PHQ-9 Depression Total Score: 0 07/13/19 14 2:23 PM FRAMING MILL OPERATOR HELPER documented as of this encounter Care Teams Surface Grinding Machine Hand Relationship Specialty Start Date End Date Jerry Patterson M.D. [address] [place] [phone] PCP - General Family Medicine 05/06/21 documented as of this encounter
--- OUTSIDE RECORDS SUMMARY | 2023-06-16 07:41 | XMS_ITS | Encounter Summary ---
Author Name Unknown Organization [facility] Address [address] [place] [address] Care Team Providers Care Clinical Team Manager Name Role Phone Jerry Patterson M.D. Primary Care Provider [phone] Encounter Details Date Type Department Care Team (Latest Contact Info) Description 11/05/2022 Orders Only Department of Endocrinology in [place], [place] [address] [place] [phone] Meryl Julio M.D. [address] [place] [phone] Hypothyroidism Primary (Primary Dx) Social History Tobacco [...] often do you attend chur ch or mandaeism services? 1 to 4 times per year 10/13/2022 Do you belong to any clubs o r organizations such as sabianism groups, unions, fraternal or [...] or slept in a fci (including now)? No 10/13/2022 Nutrition Answer Date [...] Sex Assigned at Female 06/21/2021 12:52 PM HOLISTIC HEALTH PRACTITIONER Gender Identity Female 06/21/2021 12:52 PM HOLISTIC HEALTH PRACTITIONER Sexual Orientation Straight 06/21/2021 12 :52 PM HOLISTIC HEALTH PRACTITIONER documented as of this encounter Plan of Treatment Upcoming Encounters Date Type Department Care Team (Latest Contact Info) Description 06/22/2023 3:00 PM HOLISTIC HEALTH PRACTITIONER Office Visit Department of Endocrinology in [place], [place] [address] [place] [address] Meryl Julio M.D. [address] [place] [address] Discharge Disposition: Home or Self Care documented as of this encounter Results * S-TSH (Thyroid-Stimulating Hormone - Sensitive) (01/15/2023 11:27 AM CDT) TSH, Sensitive 2.1 0.3 - 4.2 mIU/L 01/15/2023 4:02 PM CDT NPR[facility] Blood (Blood, Venous) 01/15/2023 11:27 AM CDT 01/15/2023 3:40 PM CDT Meryl Julio M.D. LAB BLOOD ADD-ON Performing Organization Address City/[facility]/ZIP Co de Phone Number [facility] [address] [place] [phone], [facility] NPRG [address] [address] * (ABNORMAL) T4 (Thyroxine), Free (01/15/2023 11:27 AM CDT) T4 (Thyroxine), Free, P 1.8(H) 0.9 - 1.7 ng/dL 01/15/2023 4:02 PM CDT NPRG Comment: Biotin has been identified by the recreation program coordinator as a potential interfering substance. Higher concentrations of biotin may be found in multivitamins, hair/nail supplements, and workout supplements. If the result does not match clinical observations, repeat testing after patient refrains from the use of supplements for at least 12 hours. Blood (Blood, Venous) 01/15/2023 11:27 AM CDT 01/15/2023 3:40 PM CDT Meryl Julio M.D. LAB BLOOD ADD-ON [facility] [address] [place] [phone], [facility] NPRG [address] [address] documented in this encounter Visit Diagnoses Diagnosis Hypothyroidism Primary- Primary documented in this encounter Additional Health Concerns Assessment Noted Time PHQ-9 Depression Total Score: 0 07/13/19 14 2:23 PM HOLISTIC HEALTH PRACTITIONER documented as of this encounter Care Teams Clinical Team Manager Relationship Specialty Start Date End Date Jerry Patterson M.D. NPKarla: [phone] [address] [place] [phone] PCP - General Family Medicine 05/06/21 documented as of this encounter
--- OUTSIDE RECORDS SUMMARY | 2023-06-16 07:41 | XMS_ITS | Encounter Summary ---
Author Name Unknown Organization [facility] Address [address] [place] [address] Care Team Providers Care Space Systems Operations Manager Name Role Phone Jerry Patterson M.D. Primary Care Provider [phone] Encounter Details Date Type Department Care Team (Late st Contact Info) Description 07/05/2022 Orders Only Department of Endocrinology in [place], [place] [address] [place] [phone] Meryl Julio M.D. [address] [place] [phone] Thyroiditis Deric's (Primary Dx); Hypothyroidism Primary Social History Tobacco Use Types Packs/Day Years [...] often do you attend chur ch or protestant services? More than 4 times per year 06/21/2021 Do you belong to any clubs o r organizations such as jainism groups, unions, fraternal or [...] Answer Date Recorded PHQ-2 Score 0 08/14/2021 [facility] Occup[facility] ional Health - Occupational [...] or slept in a half-way (including now)? No 06/21/2021 Nutrition Answer Date [...] Sex Assigned at Female 06/21/2021 12:52 PM PRODUCTION CONTROLLER Gender Identity Female 06/21/2021 12:52 PM PRODUCTION CONTROLLER Sexual Orientation Straight 06/21/2021 12 :52 PM PRODUCTION CONTROLLER documented as of this encounter Plan of Treatment Upcoming Encounters Date Type Department Care Team (Latest Contact Info) Description 06/22/2023 3:00 PM PRODUCTION CONTROLLER Office Visit Department of Endocrinology in [address] [phone] Meryl Julio M.D. [address] [place] [address] Discharge Disposition: Home or Self Care documented as of this encounter Results * (ABNORMAL) S-TSH (Thyroid-Stimulating Hormone - Sensitive) (09/05/2022 11:57 AM CDT) TSH, Sensitive 10.8(H) 0.3 - 4.2 mIU/L 09/05/2022 4:02 PM CDT NPR[facility] Blood (Blood, Venous) 09/05/2022 11:57 AM CDT 09/05/2022 3:34 PM CDT Meryl Julio M.D. LAB BLOOD ADD-ON Performing Organization Address [facility] Co de Phone Number [facility]NOTE 3] [facility] [address] [place] [address], [facility] [address] [address] * T4 (Thyroxine), Free (09/05/2022 11:57 AM CDT) T4 (Thyroxine), Free, P 1.3 0.9 - 1.7 ng/dL 09/05/2022 4:02 PM CDT NPRG Comment: Biotin has been identified by the trailer driver as a potential interfering substance. Higher concentrations of biotin may be found in multivitamins, hair/nail supplements, and workout supplements. If the result does not match clinical observations, repeat testing after patient refrains from the use of supplements for at least 12 hours. Blood (Blood, Venous) 09/05/2022 11:57 AM CDT 09/05/2022 3:34 PM CDT Meryl Julio M.D. LAB BLOOD ADD-ON Performing Organization Address [facility]/ZIP Co de Phone Number [facility]NOTE 3] [facility] [address] [place] [address], [facility] NPRG [facility] [address] [place] [address] documented in this encounter Visit Diagnoses Diagnosis Thyroiditis Deric's- Primary Hypothyroidism Primary documented in this encounter Additional Health Concerns Assessment Noted Time PHQ-9 Depression Total Score: 0 07/13/19 14 2:23 PM PRODUCTION CONTROLLER documented as of this encounter Care Teams Space Systems Operations Manager Relationship Specialty Start Date End Date Jerry Pattreson M.D. [address] [place] [phone] PCP - General Family Medicine 05/06/21 documented as of this encounter
--- OUTSIDE RECORDS SUMMARY | 2023-06-16 07:41 | XMS_ITS | Encounter Summary ---
Author Name Unknown Organization [facility] Address [address] [place] [address] Care Team Providers Care Director Drug Safety Name Role Phone Jerry Patterson M.D. Primary Care Provider Reason for Referral * Outpatient (Routine) - Authorized Specialty Diagnoses / Procedures Referred By Contac t Referred To Contact Family Medicine Jerry Patterson M.D. [address] [place] [phone] [facility] Referral ID Status Reason Start Date Expiration Date V isits Requested Visits Authorized [id number] Authorized 03/31/2023 03/30/2026 1 1 R RELATIONS REPRESENTATIVE Encounter Details Date Type Department Care Team (Late st Contact Info) Description 03/31/2023 Orders Only [facility] PCP HLTH [facility] Jerry Patterson M.D. [address] [place] [phone] Social History Tobacco Use Types Packs/Day [...] How often do you attend chur or yazidi services? 1 to 4 times per year 10/13/2022 Do you belong to any clubs o r organizations such as roman catholic groups, unions, fraternal [...] Answer Date Recorded PHQ-2 Score 0 08/14/2021 [facility] - Occupational Stress Questionnaire Answer [...] Sex Assigned at Female 06/21/2021 12:52 PM LABOR RELATIONS REPRESENTATIVE Gender Identity Female 06/21/2021 12:52 PM LABOR RELATIONS REPRESENTATIVE Sexual Orientation Straight 06/21/2021 12 :52 PM LABOR RELATIONS REPRESENTATIVE documented as of this encounter Plan of Treatment Upcoming Encounters Date Type Department Care Team (Latest Contact Info) Description 06/22/2023 3:00 PM LABOR RELATIONS REPRESENTATIVE Office Visit Department of Endocrinology in [place], [place] [address] [place] [address] Meryl Julio M.D. [address] [place] [phone] Discharge Disposition: Home or Self Care Scheduled Referrals Name Type Priority Associated Diagnoses Orde r Schedule Family Medicine office visit (clinic) Outpatient Referral Routine Expected: 04/14/2023, Expires: 09/27/2023 documented as of this encounter Visit Diagnoses Not on filedocumented in this encounter Additional Health Concerns Assessment Noted Time PHQ-9 Depression Total Score: 0 07/13/19 14 2:23 PM LABOR RELATIONS REPRESENTATIVE documented as of this encounter Care Teams Director Drug Safety Relationship Specialty Start Date End Date Jerry Patterson M.D. [address] [place] [phone] PCP - General Family Medicine 05/06/21 documented as of this encounter
--- OUTSIDE RECORDS SUMMARY | 2023-06-16 07:41 | XMS_ITS | Encounter Summary ---
Author Name Unknown Organization [facility] Address [address] [place] [address] Care Team Providers Care Forestry Tree Pruner Name Role Phone Jerry Patterson M.D. Primary Care Provider [phone] Reason for Visit * Reason Comments Med Refill Encounter Details Date Type Department Care Team (Late st Contact Info) Description 04/30/2023 Refill Department of Sleep Medicine in [place], [place] [address] [place] [address] Allison Collins M.D. [address] [place] [address] Med Refill Social History Tobacco Use Types [...] you attend chur ch or presybeterian services? 1 to 4 times per year 10/13/2022 Do you belong to any clubs o r organizations such as holiness groups, unions, fraternal or [...] Answer Date Recorded PHQ-2 Score 0 08/14/2021 [facility] Occupat ional Health - Occupational [...] Sex Assigned at Female 06/21/2021 12:52 PM MATERIALS ASSISTANT Gender Identity Female 06/21/2021 12:52 PM MATERIALS ASSISTANT Sexual Orientation Straight 06/21/2021 12 :52 PM MATERIALS ASSISTANT documented as of this encounter Plan of Treatment Upcoming Encounters Date Type Department Care Team (Latest Contact Info) Description 06/22/2023 3:00 PM MATERIALS ASSISTANT Office Visit Department of Endocrinology in [address] [phone] Meryl Julio M.D. [address] [place] [address] Discharge Disposition: Home or Self Care documented as of this encounter Visit Diagnoses Diagnosis Restless Leg Syndrome Deficiency Iron documented in this encounter Additional Health Concerns Assessment Noted Time PHQ-9 Depression Total Score: 0 07/13/19 14 2:23 PM MATERIALS ASSISTANT documented as of this encounter Care Teams Forestry Tree Pruner Relationship Specialty Start Date End Date Jerry Patterson M.D. [address] [place] [phone] PCP - General Family Medicine 05/06/21 documented as of this encounter
--- OUTSIDE RECORDS SUMMARY | 2023-06-16 07:41 | XMS_ITS | Encounter Summary ---
Author Name Unknown Organization [facility] Address [address] [place] [address] Care Team Providers Care Wheat Inspector Name Role Phone Jerry Patterson M.D. Primary Care Provider [phone] Encounter Details Date Type Department Care Team (Latest Contact Info) Description 11/05/2022 11:07 AM CDT - 11/05/2022 11:59 PM CDT Hospital Encounter Department of Laboratory Medicine in [place], [place] [address] [place] [address] Meryl Julio M.D. [facility] [place] [phone] Hypothyroidism Primary Discharge Disposition: Home or Self [...] often do you attend chur ch or evangelical services? 1 to 4 times per year 10/13/2022 Do you belong to any clubs o r organizations such as mosque groups, unions, fraternal or [...] Answer Date Recorded PHQ-2 Score 0 08/14/2021 [facility] of Occupat ional Health - Occupational [...] slept in a care home (including now)? No 10/13/2022 Nutrition Answer Date [...] Sex Assigned at Female 06/21/2021 12:52 PM CERTIFIED INDUSTRIAL HYGIENIST Gender Identity Female 06/21/2021 12:52 PM CERTIFIED INDUSTRIAL HYGIENIST Sexual Orientation Straight 06/21/2021 12 :52 PM CERTIFIED INDUSTRIAL HYGIENIST documented as of this encounter Medications at [...] (Latest Contact Info) Description 06/22/2023 3:00 PM CERTIFIED INDUSTRIAL HYGIENIST Office Visit Department of Endocrinology in [address] [phone] Meryl Julio M.D. [address] [place] [phone] Discharge Disposition: Home or Self Care documented as of this encounter Procedures Procedure Name Priority Date/Time Associated Diagnosis Comments THYROID-STIMULATING HORMONE-SENSITIVE (S-TSH) Routine 11/05/2022 11:14 AM CDT Hypothyroidism Primary T4 (THYROXINE), FREE, S Routine 11/05/2022 11:14 AM CDT Hypothyroidism Primary documented in this encounter Results * (ABNORMAL) S-TSH (Thyroid-Stimulating Hormone - Sensitive) (11/05/2022 11:14 AM CDT) TSH, Sensitive 5.1(H) 0.3 - 4.2 mIU/L 11/05/2022 4:13 PM CDT NPRG Blood (Blood, Venous) 11/05/2022 11:14 AM CDT 11/05/2022 3:32 PM CDT Meryl Julio M.D. LAB BLOOD ADD-ON Performing Organization Address City/[facility]/ZIP Co de Phone Number [facility] [address] [place] [address], [place] NPRG [place] [address] [address] [place] [address] * T4 (Thyroxine), Free (11/05/2022 11:14 AM CDT) T4 (Thyroxine), Free, P 1.7 0.9 - 1.7 ng/dL 11/05/2022 4:13 PM CDT NPRG Comment: Biotin has been identified by the building and grounds supervisor as a potential interfering substance. Higher concentrations of biotin may be found in multivitamins, hair/nail supplements, and workout supplements. If the result does not match clinical observations, repeat testing after patient refrains from the use of supplements for at least 12 hours. Blood (Blood, Venous) 11/05/2022 11:14 AM CDT 11/05/2022 3:32 PM CDT Meryl Julio M.D. LAB BLOOD ADD-ON Performing Organization Address City/[facility]/ZIP Co de Phone Number [facility] [address] [place] [address], [place] NPRG [address] [place] [address] [address] [place] [address] documented in this encounter Visit Diagnoses Diagnosis Hypothyroidism Primary documented in this encounter Additional Health Concerns Assessment Noted Time PHQ-9 Depression Total Score: 0 07/13/19 14 2:23 PM CERTIFIED INDUSTRIAL HYGIENIST documented as of this encounter Care Teams Wheat Inspector Relationship Specialty Start Date End Date Jerry Patterson M.D. [address] [place] [phone] PCP - General Family Medicine 05/06/21 documented as of this encounter
--- OUTSIDE RECORDS SUMMARY | 2023-06-16 07:42 | XMS_ITS | Encounter Summary ---
Author Name Unknown Organization [facility] Address [address] [place] [address] Care Team Providers Care Filleter Name Role Phone Jerry Patterson M.D. Primary Care Provider [phone] Encounter Details Date Type Department Care Team (Late st Contact Info) Description 07/01/2022 Orders Only [facility] PCP HL[facility] Jerry Patterson M.D. [address] [place] [phone] Social History Tobacco Use Types Packs/Day Years [...] How often do you attend chur or samaritan services? More than 4 times per year 06/21/2021 Do you belong to any clubs o r organizations such as mandaen groups, unions, fraternal or [...] Answer Date Recorded PHQ-2 Score 0 08/14/2021 [facility] Questionnaire Answer Date [...] money to buy more. Never true 06/21/19 22 Within the past 12 months, t [...] slept in a [facility] (including now)? No 06/21/2021 Nutrition Answer Date [...] Sex Assigned at Female 06/21/2021 12:52 PM RN VISITING Gender Identity Female 06/21/2021 12:52 PM RN VISITING Sexual Orientation Straight 06/21/2021 12 :52 PM RN VISITING documented as of this encounter Plan of Treatment Upcoming Encounters Date Type Department Care Team (Latest Contact Info) Description 06/22/2023 3:00 PM RN VISITING Office Visit Department of Endocrinology in [place], [place] [address] [place] [address] Meryl Julio M.D. [address] [place] [address] Discharge Disposition: Home or Self Care documented as of this encounter Visit Diagnoses Not on filedocumented in this encounter Additional Health Concerns Assessment Noted Time PHQ-9 Depression Total Score: 0 07/13/19 14 2:23 PM RN VISITING documented as of this encounter Care Teams Filleter Relationship Specialty Start Date End Date Jerry Patterson M.D. [address] [place] [phone] PCP - General Family Medicine 05/06/21 documented as of this encounter
--- OUTSIDE RECORDS SUMMARY | 2023-06-16 07:42 | XMS_ITS | Clinical Summary ---
Author Name Unknown Organization [facility] Address [place], [place] [address] Care Team Providers Care Newspaper Managing Editor Name Role Phone Devendra Soliz DO Unavailable [phone] Pcp, No Primary Care Provider Unavailabl e Allergies Active Allergy Reactions Criticality Noted Date Comments Ciprofloxacin Hives 06/26/2021 Clindamycin Anaphylaxis High 11/24/2016 Gentamicin Anaphylaxis High 06/26/2021 Medications Medication Sig Dispensed Refills Start Date End Date Status levothyroxine (SYNTHROID) 112 mcg tablet Take 1 Tablet (112 mcg) by mouth before breakfast. Take twice daily on Thursday and Thursday 0 10/10/2021 Active metFORMIN (GLUCOPHAGE XR) 500 mg Extended-Release tablet Take 2 Tablets (1,000 mg) by mouth two times daily with meals. 0 12/12/2022 Active propranolol ER (INDERAL LA) 60 mg Cs24 Sustained-Release capsuleIndications:Hy pothyroidism (acquired) Take 1 tablet by mouth twice daily 0 12/12/2022 Active Active Problems No known active problems Encounters Date Type Department Care Team Description 06/03/2023 3:30 PM [employer] Ancillary Procedure [facility] [address] [facility] [address] [place] [address] 06/03/2023 Travel 05/29/2023 Transcribe Orders [facility] [address] [facility] [address] [place] [address] Eleuterio Easley MD 05/21/2023 Transcribe Orders [facility] [address] [place] [address] Rhett Elias MD 04/28/2023 10:00 AM [employer] Office Visit [facility] at [facility] [address] [place] [address] Rhett Elias MD Procedure (Left S1 TFESI) 04/21/2023 Orders Only [facility] Scanner 1 scan: (1-Ord) NORAN 04/07/2023 Telephone [facility] [address] [place] [address] Rhett Elias MD Injection (Medication) 04/07/2023 Transcribe Orders [facility] [address] [place] [address] Rhett Elias MD 03/19/2023 Orders Only [facility] Scanner 1 scan: (1-Ord) RAYUS, MRI PELVIS, 03/19/2023 from Last 3 Months Immunizations Name Administration Dates Next Due DTP 02/13/1995,02/12/1994,1993 ,1993 DTaP 06/14/1998, 5,02/12/1994,1993 ,1993 Dtap-5 Pertussis Antigens 06/14/1998,,02/12/1994,1993 ,1993 HIB PRP-T (ActHIB,Hiberix) 08/22/1994,02/12/1994 ,1993,1993 HPV 9 (Gardasil 9) 06/16/2011,08/28/2008, 009 Hepatitis A (Adult) 04/24/2016,07/24/2010 Hepatitis B (Adult) 03/12/1994,1993,1993 Hepatitis B, Unspecified 03/12/1994,1993,0 1993 Human Papilloma Virus Vaccine 06/16/2011, 009,06/21/2008 Inactivated Polio Vaccine 06/14/1998,02/12/1994, 1993,1993 Influenza Virus, Unspecified 03/15/2020, 03/03/2018,05/08/2016,05/08/2016 ,04/24/2016,03/08/2014,03/08/2014, 3,03/02/2013 Influenza, IIV3 (Age >=3 years) 04/24/2016 Influenza, IIV4 02/22/2019 Influenza, IIV4 (=>6mos) MDV 03/15/2020 Influenza,CCIIV4 PRESERV FREE 03/03/2018 MMR 06/14/1998,08/22/1994 Meningococcal Vaccine (Menactra) 07/24/2010 Oral Polio Vaccine 06/14/1998,02/12/1994, 994,1993 Td (Age >=7 Years) 04/24/2016 Tdap 01/15/2006 Typhoid (injectable) 07/24/2010 Typhoid Parenteral,Killed 07/24/2010 Varicella Vaccine 07/25/2010,06/14/1998 Family History Medical History Relation Name Comments Thyroid Disease Maternal Grandmother Thyroid Disease Mother Relation Name Status Comments Maternal Grandmother Mother Social History Tobacco Use Types Packs/Day Years Used Date Smoking Tobacco: Never Smokeless Tobacco: Never Tobacco Cessation:Counseling Given: Yes Alcohol Use Standard Drinks/Week Comments Never 0 (1 standard drink = 0.6 oz pur e alcohol) Social Connections Answer Date Recorded Frequency of Communication with Friends and Fami ly Not on file 10/10/2021 Sex and Gender Information Value Date Recorded Sex Assigned at Not on file Gender Identity Not on file Sexual Orientation Not on file Obstetrics History Last Filed Vital Signs Vital Sign Reading Time Taken Comments Blood Pressure 124/78 12/12/2022 3:04 PM CDT Pulse 92 12/12/2022 3:04 PM CDT Temperature 37 ??C (98.6 ??F) 06/26/2021 5:02 PM [employer] Respiratory Rate 15 06/26/2021 7:56 PM [employer] Oxygen Saturation 99% 06/26/2021 10:15 PM [employer] Inhaled Oxygen Concentration - - Weight 111.6 kg (246 lb) 12/12/2022 3:04 PM CDT Height 167.6 cm (5' 6) 06/26/2021 5:02 PM [employer] Body Mass Index 39.71 06/26/2021 5:02 PM [employer] Plan of Treatment Upcoming Encounters Date Type Department Care Team (Late st Contact Info) Description 06/16/2023 8:00 AM [employer] Office Visit [facility] at [facility] [address] [place] [address] Rhett Elias MD [address] [place] [address] 09/14/2023 11:20 AM CDT Office Visit [facility] [address] [place] [address] Devendra Soliz DO [address] [place], [place] [id number] Health Maintenance Due Date Last Done Comments COVID-19 vaccine series (#1) 02/18/1994 Depression screening for age 12+ 2005 HIV for age 15-65 2008 BMI (ht and wt on same day) for age 18+ 08/19/2011 Hepatitis C screening for age 18-79 08/19/2011 Pap test for age 21-65 2014 Influenza for age 9-49 01/23/2023 , 03/15/2020, 02/22/2019, Additional history exists Tetanus booster 04/24/2026 04/24/2016, 01/15/2006 Tdap Completed 01/15/2006 Pneumococcal series for age 6-64 Aged Out No longer eligible based on patient's age to complete this topic Procedures Procedure Name Priority Date/Time Associated Diagnosis Comments XR SPINE CERVICAL 4 OR 5 VIEWS Routine 06/03/2023 3:28 PM [employer] Cervical pain (neck) AMB EPIDURAL STEROID INJECTION Routine 04/28/2023 8:01 AM [employer] Radiculopathy, lumbosacral region ND NJX AA&/STRD TFRML EPI LUMBAR/SACRAL 1 LEVEL Routine 04/28/2023 12:00 AM [employer] Radiculopathy, lumbosacral region Lumbar disc herniation SCAN-ELECTROMYOGRAM EMG 04/21/2023 12:00 AM [employer] SCAN-MRI INTERPRETATION 03/19/2023 12:00 AM CDT from Last 3 Months Results * XR SPINE CERVICAL 4 OR 5 VIEWS (06/03/2023 3:28 PM [employer]) Anatomical Region Laterality Modality Spine, CERVICAL SPINE Digital Ra diography 06/03/2023 3:28 PM [employer] Impressions 06/04/2023 11:00 AM [employer] Cervical spine alignment is grossly within normal limits without significant change in alignment on flexion or extension views. No loss of vertebral body height. No significant degenerative endplate changes or loss of disc height. ?? Narrative 06/04/2023 11:00 AM [employer] For Patients: As a result of the Cures Act, medical imaging exams and procedure reports are released immediately into your electronic medical record. You may view this report before your referring provider. If you have questions, please contact your health care provider. EXAM: XR SPINE CERVICAL 4 OR 5 VIEWS LOCATION: [facility] DATE: 06/03/2023 INDICATION: Cervical Pain. COMPARISON: None. Procedure Note Todd Seaman MD - 06/04/2023 For Patients: As a result of the Cures Act, medical imagingexams and procedure reports are released immediately into your electronicmedical record. You may view this report before your referring provider.If you have questions, please contact your health care provider. EXAM: XR SPINE CERVICAL 4 OR 5 VIEWS LOCATION: [facility] DATE: 06/03/2023 INDICATION: Cervical Pain. COMPARISON: None. IMPRESSION: Cervical spine alignment is grossly within normal limits withoutsignificant change in alignment on flexion or extension views. No loss ofvertebral body height. No significant degenerative endplate changes orloss of disc height. Eleuterio Easley MD GENERAL IMAGING * ND NJX AA&/STRD TFRML EPI LUMBAR/SACRAL 1 LEVEL (04/28/2023 12:00 AM [employer]) Rhett Elias MD PB - NERVOUS SYSTE M SERVICES * SCAN-ELECTROMYOGRAM EMG (04/21/2023 12:00 AM [employer]) Scanner OTHER * SCAN-MRI INTERPRETATION (03/19/2023 12:00 AM CDT) Anatomical Region Laterality Modality Other Scanner OTHER from Last 3 Months Advance Directives Latest Code Status on File Code Status Date Activated Date Inactivated Comments Full Code 10/29/2011 7:36 AM 10/29/2011 7:15 PM Care Teams Newspaper Managing Editor Relationship Specialty Start Date End Date Pcp, No . PCP - General 06/15/23 Devendra Soliz DO [address] [facility] [address] [place] [address] Internal Medicine 12/12/22
== END 2023-06-16 07:38 | disposition home or self-care (01) ==
LOC: INJ CL 07:38
PROVIDERS: Visit Provider Family Medicine
DX: M54.16 Radiculopathy, lumbar region (principal); M51.26 Other intervertebral disc displacement, lumbar region
CPT/HCPCS: 64483; J1100; Q9966

== ENCOUNTER 2023-08-04 13:30 | Outpatient (CLI) | payer OTHER, SELFPAY | END 2023-08-04 13:31 | disposition home or self-care (01) | LOC: INJ CL 13:32 | PROVIDERS: Visit Provider Family Medicine | DX: M51.26 Other intervertebral disc displacement, lumbar region (principal); M54.16 Radiculopathy, lumbar region | CPT/HCPCS: 62323; J0702; Q9966 ==

== ENCOUNTER 2024-05-04 13:14 | Outpatient (CLI) | payer OTHER, SELFPAY ==
[2024-05-04 23:15] LABS: Bacterial Vaginosis* Negative (Negative); Candida glab/krus NOT DETECTED (No Detected); Candida species DETECTED (No Detected); Trichomonas vaginalis NOT DETECTED (No Detected)
== END 2024-05-04 13:15 | disposition home or self-care (01) ==
PROVIDERS: Visit Provider Obstetrics & Gynecology
DX: N94.89 Other specified conditions associated with female genital organs and menstrual cycle (principal)
CPT/HCPCS: 81513; 87086; 87481; 87661

== ENCOUNTER 2024-07-08 11:30 | Outpatient (RCR) | payer OTHER, SELFPAY ==
--- NOTE | 2022-05-05 16:40 | PT.OPEX ---
PT [facility] Eval PT [facility] Outpatient Eval Start: 05/05/22 13:01 Freq: Status: Active Protocol: Document 05/05/22 16:14 ZOE (Rec: 05/05/22 16:37 ZOE [id number]) E-signed By Anne Hurst PT Physical Therapy Outpatient Evaluation Insurance Information Recert Due Date 07/04/22 Insurance Name Medicaid,[employer] Medical Diagnosis PF weakness female genital prolapse Treating Diagnosis lack of muscle coordination muscle spasms feeling of incomplete bladder and bowel emptying. Referring MD Lyn Garg CNM Subjective Subjective Felecia presents to PT with diagnosis of PF weakness and female genital prolapse. Symptoms started after the delivery of her first child approx 8 weeks ago. Pt reports her symptoms are of generalized tightness along PFM, incomplete emptying of bowel and bladder, leakage of stool with urination/wiping, pain with vaginal penetration, and UI. Pt reported prior to baby did have issues with PFM tightness and painful penetration. Symptoms are worse since her daughter was delivered. Did have a second degree tear and stitches. Did having tearing of a couple stitches when she was home. Does have more frequent urination (every 1.5 hours) over the past 6 weeks. Also has issues with LBP in region of the epidural site (2 attempts made at placement of epidural). Goals for therapy are less vaginal and anal leakage and educate on ways to manage symptoms. Date of Last Physician Visit 03/25/22 Occupation on maternity leave until June Precautions Treatment Precautions/Contraindications diabetes thyroid problems Objective Functional Test Performed & Score PF questionnaire: Bladder function: Bowel function: Prolapse symptoms: 0/15 Sexual function: Assessment Assessment/Impression 26 yo client presents with c/o PFD involving bowel, bladder and sexual relations following the delivery of he daughters approx 8 weeks ago. Pt stands with an ant pelvic tilt. Symmetry noted with step/ stride lengths with gait. Pt is currently breast feeding. Pt is having to push to fully empty urine. Has episodes of inability to fully empty bowels. Does drink approx 96 oz of water per day and her nutrition is fair. Has not yet attempted sexual relations due to fear of pain and overall fatigue. Will complete assessment her PFM at her next session or as able. Plan is to continue with further skilled PT services including use of therapeutic exercise, therapeutic activities, neuromuscular re- ed, manual therapy, and self cares for symptom reduction. Plan of Care Rehabilitation Potential Good Physical Therapy Goals Short term goals to be achieved in 4 weeks 1. Able to state 4 of 4 urge suppression/bladder retraining strategies 2. Able to report voiding approx 8X per day, with intervals of 1X every 2-4 hours, 4 out of 7 days. 3. Pt will demonstrate use of functional PFM contraction by performing a precontraction to eliminate UI during coughing intermission coordinator goals to be achieved in 12 weeks. 1. Independent with self-care program for symptom reduction 2. Will report no leaking with coughing. 3. Pt able to feel like she is fully emptying bowel or bladder 80% of the time or greater. 4. Able to tolerate intercourse with pain no greater than 2/10 Coordination/Communication With Referral Source Treatment Plan/Direct Interventions Joint Mobilization,Manual Therapy,Neuromuscular Re-ed, Self-Care/Home Management, Therapeutic Activities, Therapeutic Exercises Frequency/Duration 1 time a week X 10 visits Patient Will Be Discharged From Therapy Completion of LTG(s),Skills Plateau,Independent w/HEP, Independently Progressing Evaluation Billing Untimed Code Treatment Minutes 40 Complexity Moderate Certification Information Initial Certification Date 05/05/22 Ending Certification Date 07/04/22 Provider Signature Shows Agreement With POC & Medical Necessity Physician Signature & Date Requested Please Sign/Date Here Physician Comment/Change : Physician NPI Number #
--- NOTE | 2022-08-20 12:43 | PT.OPDNX ---
PT [place] Outpatient Daily Note PT [facility] Outpatient Daily Note Start: 05/05/22 13:01 Freq: Status: Active Protocol: Document 08/15/22 07:58 ZOE (Rec: 08/15/22 09:18 ZOE [id number]) E-signed By Anne Hurst, PT PT OP Daily Progress Note Visit Information Note Type Daily Note Visit Number 9 Insurance Authorized Visits 10 per eval Insurance Information Recert Due Date 10/15/22 Insurance Name Medicaid,[employer] Medical Diagnosis PF weakness female genital prolapse Treating Diagnosis lack of muscle coordination muscle spasms feeling of incomplete bladder and bowel emptying. Referring MD Lyn Garg CNM Subjective Subjective Has been seeing chiro- L buttock and william. 3-5th toe is numb. Prolapse feeling worse when her hips are off.. Has not been seen over the past 5 weeks. Has done limited HEP and has not had time to work on her PFM or gluteals spasms as planned. Had difficulty getting into PT due to scheduling conflicts. Is concerned about the pressure n her pelvic and her continued symptoms. Precautions Treatment Precautions/Contraindications diabetes thyroid problems Objective Other/Pertinent Objective L HS :4/5 Patient Instructed in Risks/Benefits Yes Therapeutic Exercise Therapeutic Exercise Minutes (minutes) 25 Therapeutic Exercise: To Restore Progression of her HEP to work Functional Status on stability/strength and modification to aid in compliance mini squats and lat stepping - - to do at work if able -pec stretch doorway -quad pelvic tilts and circles - calf stretches (soleus and gastroc), ice massage, tennis ball massage -- for possible symptoms of plantar fasciitis. Foot yoga for intrinsic strengthening. Will continue with the Kegels. Manual Therapy Techniques Manual Therapy Minutes (minutes) 20 Manual Therapy Techniques Did reassess PFM tone and status. Mild descent noted in vaginal region - not worse ( pt was concerned). Did work on TPR along all layers. Emphasis yet along L LA and L DTP due to higher tone than R. Did respond well. Self Care Management Training Self-Care Activity Minutes (minutes) 12 Self Care Management Training Worked on posture in standing, walking, and sitting - stack the bowls. Pt was able replicate several times without cueing. Treatment Minutes Timed Code Treatment Minutes 57 Total Treatment Time 57 Billing Units Manual Therapy Units 1 Self-Care Activity Units 1 Therapeutic Exercise Units 2 Assessment/Impression Assessment/Impression Pt overall is doing fair. She had more concerns after not being treated over the past 5 weeks. Pt had fear of POP symptoms and worsening - no worsening of tissue descent - well contained. Did reassure pt. Does still have some higher tone but tit responded well to her HEP. Does feel weak all over. Do feel she would benefit from progression of her HEP to work on more strength and stability for symptom reduction. Plan of Care Physical Therapy Goals Short term goals to be achieved in 4 weeks 1. Able to state 4 of 4 urge suppression/bladder retraining strategies IMPROVING 2. Able to report voiding approx 8X per day, with intervals of 1X every 2-4 hours, 4 out of 7 days. IMPROVING 3. Pt will demonstrate use of functional PFM contraction by performing a precontraction to eliminate UI during coughing IMPROVING assisted goals to be achieved in 12 weeks. 1. Independent with self-care program for symptom reduction IMPROVING 2. Will report no leaking with coughing. IMPROVING 3. Pt able to feel like she is fully emptying bowel or bladder 80% of the time or greater. IMPROVING 4. Able to tolerate intercourse with pain no greater than 2/10 IMPROVING NEW GOAL ADDED: 5. Pt will be able to demonstrate correct body mechanics with lifting, standing, transfers and sitting to help reduce LBP and to better manage IAP with functional activities. Daily Plan of Care Continue per POC Daily Plan of Care Comments continue with 4-8 more sessions to progress core routine, work on body mechanics and improve PFM function. Recertification Information Initial Certification Date 05/05/23 Recertification Start Date 08/15/22 Recertification Due Date 10/15/22 Provider Signature Shows Agreement With POC & Medical Necessity Physician Comment/Change Comment or Changes Physician NPI Number #
--- NOTE | 2023-06-03 12:50 | PT.OPDNX ---
PT [place] [facility] Daily Note PT [facility] Daily Note Start: 05/05/22 13:01 Freq: Status: Active Protocol: Document 06/03/23 10:27 ARR (Rec: 06/03/23 12:49 ARR [id number]) E-signed By Phuong Rosen DPT PT OP Daily Progress Note Visit Information Note Type Daily Note,Recert/Progress Note Visit Number 37 Insurance Authorized Visits 35-37 Insurance Information Recert Due Date 08/02/23 Insurance Name Medicaid,[facility] Insurance Information/Comments Eval: 05/05 Recert on 06/03 to 08/01 for x 12 visits. Medical Diagnosis PF weakness female genital prolapse Treating Diagnosis lack of muscle coordination muscle spasms feeling of incomplete bladder and bowel emptying. Referring MD Lyn Garg CNM Subjective Subjective - Seemed like last session helped a lot. Numbness in pinky toe. Pain Comments LBP 09/01 Precautions Treatment Precautions/Contraindications diabetes thyroid problems Home Exercise Home Exercise Comments 05/14 PF check ins Access Code: [email or web address] URL: [email or web address] Date: 05/14/2023 Prepared by: Phuong Rosen Exercises - Sidelying Diaphragmatic Breathing - 1 x daily - 5-7 x weekly - 6-8 reps - Sidelying Open Book Thoracic Rotation with Knee on Foam Roll - 1 x daily - 5-7 x weekly - 6-8 reps - Segmental Cat Cow - 1 x daily - 5-7 x weekly - 6-8 reps Objective Other/Pertinent Objective INTERNAL EXAMINATION INTRAVAGINAL: -Sensation: intact to touch -Observation: WNL -Perineum: normal -Cough: nil -Lifting contraction: visible lift -Bulge: nil -Prolapse: Did not assess Tenderness/pain to palpation/ tone: -Introidus: -Layer 1: ischiocavernosus / bulbospongiousus / superficial transverse perineal -Layer 2: External urtethral sphincter / deep transverse perineal / compressor urethra / sphincter urethrovaginalis -Layer 3: puborectalis / pubococcygeus / iliococcygeus / coccygeus inc'd tone and TTP throughout PF Strength ( R / C / L): -Power (MMT): 2 -Endurance: not assessed -Reps: not assessed -Fast twitch: not assessed Other: -Breathing examination: dec?d posterior and lateral ribcage mvmt with inhalation -Coordination: bulging out into abdominal wall with bracing EXTERNAL OBJECTIVE 05/20/23: -Movement screen: MS flexion reduced LS and TS, increased HS mobility. LS extension 50% reduced segmental moblity with pain into L glut and posterior thigh, no changes in NT. MS rotation pain with R rotation on L side. Lateral flexion pain with R lateral flexion into L glut. -SLS: Able to hold 30 sec but with moderate pelvic drop and foot collapse L>R -Posture: Inc'd prominence of CT junction, reduced TS kyhposis, inc'd APT with swayback posture, -Hip PROM: IR 40 R and L. ER 60 R / 70 L -Strength: Glut medius: 3+ Other Tests: -Breathing: dec?d posterior and lateral ribcage mvmt with inhalation Special tests: -Flexibility: pos -SLR: pos on L for back pain and L LE. Crossed SLR on R for LBP -Other: CPA's hypomobility with centralization of calf pain and bilateral hip pain at L4 Patient Instructed in Risks/Benefits Yes Manual Therapy Techniques Manual Therapy Minutes (minutes) 25 Manual Therapy Techniques MT: indicated for improving joint mobility, reducing tissue irritability, and improving range of motion. -Fascial mobilization into abdominal wall on lateral L side, middle, and R side. Pt completing unilateral knee tip out to increase fascial tension/pull. Education: -Test/retest objective measures completed to assess effectiveness of treatment -Education regarding purpose/ benefit of FDN with implications for reduced pain, improved mobility, improved tolerance of aggravating activities/postures. Control/ alt/delete to NS to provide facilitate improved movement patterns. Purpose/importance of corrective exercises after treatment in clinic then with HEP. -Aftercare instructions to include: increasing water intake, staying active/ movement, completion of corrective exer, post- treatment to include soreness a few hours to 1 day, local bruising -Area of treatment was assessed and target muscle was palpated. (NOT billed) -FDN to glut med and max BILAT muscles with local stim applied until desired treatment response was obtained. No adverse response was noted. Verbal and written consent was obtained prior to completion of technique. Contraindications/precautions were reviewed, no contraindications to treatment identified Neuromuscular Re-Ed Neuromuscular Reeducation Minutes ( 15 minutes) Neuromuscular Reeducation Comments NMR: Indicated to facilitate improved muscle firing and postural awareness through the use of tactile cues. -Breathing x 3 reps -PFC on exhale urogenital x 8 reps -PFTA on exhale x 6 reps. TR in small of back x 6 reps MT for abdominal wall as above -PFTA on exhale TR in small of back 2 x 6 reps Mechanical Traction Mechanical Traction Comments Patient received mechanical lumbar traction for 10minutes. Did use intermittent setting at 60? maximum pull and 20? minimum hold duty cycle with intensity being 80 lbs max and 40 lbs minimum. No adverse reaction identified. Patient was positioned supine with hips flexed on leg stool; tolerated treatment well. Remaining time spend on joint and skin assessment. Total treatment time 20 min *total BW per pt report 240 Treatment Minutes Untimed Code Treatment Minutes 20 Timed Code Treatment Minutes 40 Total Treatment Time 60 Billing Units Manual Therapy Units 2 Neuromuscular Reeducation Units 1 Mechanical Traction Units 1 Assessment/Impression Assessment/Impression Continued with FDN and LS traction with increased time to 15 min vs 10 min last session due to overall improvement pt noted session to session. After LS traction reduced NT Into lateral pinky toe. Started PFTA activation on an exhale - inhibition noted improved after abdominal fascial moblizations as above . Pt to monitor sx's and report next session. Pt to benefit from continued PT focusing on proximal strengthening. Pt had been seen for low back pain, L lateral foot NT, incomplete bladder/bowel emptying for 37 visits from to 06/03/23 during this episode of physical therapy. Focus of therapy on spine and hip ROM/stretching and reducing pain. Last 2 visits added in lumbar traction and FDN which has significantly helped to reduce proximal and distal pain. Also added in proximal strengthening of TA and PF to assist in maintaining neutral spine. Interventions including lumbar traction, self-care, ther exercise, manual therapy, ther act, neuromuscular re- education. Pt at this time has not met maximal therapeutic benefit and continues to benefit from ongoing therapy at a frequency of 1x/wk for an additional 12 visits. Ongoing therapy to focus on reduction of back/nerve pain using lumbar tractio, manual techniques, and FDN as indicated in addition to proximal strengthening of TA, PF, and gluts. Pt has not met all goals as indicated below. Pt agreeable with POC and discharge at this time. Plan of Care Physical Therapy Goals Short term goals to be achieved in 4 weeks 1. Able to state 4 of 4 urge suppression/bladder retraining strategies NEAR MET- DEPENDENT ON HER BACK SYMPTOMS 2. Able to report voiding approx 8X per day, with intervals of 1X every 2-4 hours, 4 out of 7 days. IMPROVED/NEAR MET 3. Pt will demonstrate use of functional PFM contraction by performing a precontraction to eliminate UI during coughing IMPROVED/NEAR MET FCI goals to be achieved in 12 weeks. 1. Independent with self-care program for symptom reduction IMPROVED 2. Will report no leaking with coughing. IMPROVED 3. Pt able to feel like she is fully emptying bowel or bladder 80% of the time or greater. NEAT MET-AGAIN IS DEPENDENT ON BACK SYMPTOMS 4. Able to tolerate intercourse with pain no greater than 2/10 NEAR MET NEW GOAL ADDED: 5. Pt will be able to demonstrate correct body mechanics with lifting, standing, transfers and sitting to help reduce LBP and to better manage IAP with functional activities. IMPROVING Daily Plan of Care Continue per POC,Change POC; See Comments Daily Plan of Care Comments -Review bowel habits and constipation - discuss bladder health and voiding to relax PF for positioning. -Resp to traction and prone exercises -Proximal strengthening of core/gluts, return vaginall for PFTA activation *Continue FDN Recertification Information Initial Certification Date 05/05/23 Recertification Start Date 06/03/23 Recertification Due Date 08/02/23 Reasons to Continue Skilled Therapy Pt had been seen for low back pain, L lateral foot NT, incomplete bladder/bowel emptying for 37 visits from to 06/03/23 during this episode of physical therapy. Focus of therapy on spine and hip ROM/stretching and reducing pain. Last 2 visits added in lumbar traction and FDN which has significantly helped to reduce proximal and distal pain. Also added in proximal strengthening of TA and PF to assist in maintaining neutral spine. Interventions including lumbar traction, self-care, ther exercise, manual therapy, ther act, neuromuscular re- education. Pt at this time has not met maximal therapeutic benefit and continues to benefit from ongoing therapy at a frequency of 1x/wk for an additional 12 visits. Ongoing therapy to focus on reduction of back/nerve pain using lumbar tractio, manual techniques, and FDN as indicated in addition to proximal strengthening of TA, PF, and gluts. Pt has not met all goals as indicated below. Pt agreeable with POC and discharge at this time. Rehabilitation Potential d Provider Signature Shows Agreement With POC & Medical Necessity Physician Comment/Change Comment or Changes Physician NPI Number #
--- NOTE | 2023-07-28 14:15 | PT.OPDNX ---
PT [facility] Outpatient Daily Note PT [facility] Outpatient Daily Note Start: 05/05/22 13:01 Freq: Status: Active Protocol: Document 07/28/23 08:35 ARR (Rec: 07/28/23 10:55 ARR [email or web address]) E-signed By Phuong Rosen DPT PT OP Daily Progress Note Visit Information Note Type Daily Note,Recert/Progress Note Visit Number 1 Running Total Visit Number [id number] Insurance Authorized Visits 35-37 Insurance Information Recert Due Date 09/26/23 Insurance Name Medicaid,[employer]are Insurance Information/Comments Eval: 05/05/22 Recert on 06/03 to 08/01 for x 12 visits. Recert on 07/27 to 09/25 for x 12 visits Medical Diagnosis PF weakness female genital prolapse Treating Diagnosis lack of muscle coordination muscle spasms feeling of incomplete bladder and bowel emptying. Referring MD Lyn Garg CNM Subjective Subjective -Yesterday had a bad day with numbness in toes. Did press ups, didn't get better our worse. Tried sleeping with pillow btw legs. Feels pinky toe is numb but hip/back bad on both sides as well. - did a long walk and went well without increased symptoms. Did have increased hip soreness. No numbness. -Current symptoms: L pinky toe numb and bilateral hips/ buttocks Pain Comments LBP 09/01 Precautions Treatment Precautions/Contraindications diabetes thyroid problems Home Exercise Home Exercise Comments 05/14 PF check ins 07/21 mm energy Access Code: [email or web address] URL: [email or web address] Date: 05/14/2023 Prepared by: Phuong Rosen Exercises - Sidelying Diaphragmatic Breathing - 1 x daily - 5-7 x weekly - 6-8 reps - Sidelying Open Book Thoracic Rotation with Knee on Foam Roll - 1 x daily - 5-7 x weekly - 6-8 reps - Segmental Cat Cow - 1 x daily - 5-7 x weekly - 6-8 reps Objective Other/Pertinent Objective 07/21 --LS AROM extension 50% limitation with reduced segmental mobility, tends to hinge at lower LS with minimal TS mobility. LS flexion hands to floor with HS increased flexibility with reduced posterior femoral glide. -Hip PROM flexion pain glut, ER pain in glut/buttock area limited to 60* flexion to 110* with hard end feel. IR WNL INTERNAL EXAMINATION INTRAVAGINAL: -Sensation: intact to touch -Observation: WNL -Perineum: normal -Cough: nil -Lifting contraction: visible lift -Bulge: nil -Prolapse: Did not assess Tenderness/pain to palpation/ tone: -Introidus: -Layer 1: ischiocavernosus / bulbospongiousus / superficial transverse perineal -Layer 2: External urtethral sphincter / deep transverse perineal / compressor urethra / sphincter urethrovaginalis -Layer 3: puborectalis / pubococcygeus / iliococcygeus / coccygeus inc'd tone and TTP throughout PF Strength ( R / C / L): -Power (MMT): 2 -Endurance: not assessed -Reps: not assessed -Fast twitch: not assessed Other: -Breathing examination: dec?d posterior and lateral ribcage mvmt with inhalation -Coordination: bulging out into abdominal wall with bracing EXTERNAL OBJECTIVE 05/20/23: -Movement screen: MS flexion reduced LS and TS, increased HS mobility. LS extension 50% reduced segmental moblity with pain into L glut and posterior thigh, no changes in NT. MS rotation pain with R rotation on L side. Lateral flexion pain with R lateral flexion into L glut. -SLS: Able to hold 30 sec but with moderate pelvic drop and foot collapse L>R -Posture: Inc'd prominence of CT junction, reduced TS kyhposis, inc'd APT with swayback posture, -Hip PROM: IR 40 R and L. ER 60 R / 70 L -Strength: Glut medius: 3+ Other Tests: -Breathing: dec?d posterior and lateral ribcage mvmt with inhalation Special tests: -Flexibility: pos -SLR: pos on L for back pain and L LE. Crossed SLR on R for LBP -Other: CPA's hypomobility with centralization of calf pain and bilateral hip pain at L4 Patient Instructed in Risks/Benefits Yes Therapeutic Exercise Therapeutic Exercise Minutes (minutes) 20 Therapeutic Exercise: To Restore TE: Indicated for improvement Functional Status in strengthening and mobility. -Handouts with written instructions and photographs of exercises were issued to the patient for exercises to be included in HEP. Answered patient questions regarding POC, and mobility/stretches to perform if pain occurs Prone (pillow under hips) -Prone (hips/low back and butt no numbness) -Prone press up 2 x 10 reps. - focus on segmental mobility. 1st set inc'd toe numbness. -TS rotation sidelying x 6 reps ea side -TS FR extension 4 x 3 reps -Prone press up 2 x 10 reps. - focus on segmental mobility Manual Therapy Techniques Manual Therapy Minutes (minutes) 10 Manual Therapy Techniques MT: indicated for improving joint mobility, reducing tissue irritability, and improving range of motion. -Prone rotary TS mobilization 4 x 30 sec into mid and upper TS -Prone PA t/spine G5 manip. Pt prone, PT targeting MID/UPPER thoracic spine. Application force was applied caudal and cephalad. No contraindications were identified. Pt consent was obtained prior to technique. No adverse reaction was noted, pt tolerated treatment well. Supine: -Posterior femoral glide in open pack position progressing toward close pack position of hip adduction, IR. to do next session Neuromuscular Re-Ed Neuromuscular Reeducation Minutes ( 10 minutes) Neuromuscular Reeducation Comments NMR: Indicated to facilitate improved muscle firing and postural awareness through the use of tactile cues. -quadruped rockback for hip hinge x 8 reps -Standing hip hinge at wall x 8 reps Education: picking up child, getting them close to you, exhale with exertion, stacking pelvis Mechanical Traction Mechanical Traction Comments Patient received mechanical lumbar traction for 15minutes. Did use intermittent setting at 60? maximum pull and 20? minimum hold duty cycle with intensity being 87 lbs max and 47 lbs minimum. No adverse reaction identified. Patient was positioned supine with hips flexed on leg stool; tolerated treatment well. Remaining time spend on joint and skin assessment. Total treatment time 20 min *total BW per pt report 240 Treatment Minutes Untimed Code Treatment Minutes 20 Timed Code Treatment Minutes 40 Total Treatment Time 60 Billing Units Manual Therapy Units 1 Neuromuscular Reeducation Units 1 Therapeutic Exercise Units 1 Mechanical Traction Units 1 Assessment/Impression Assessment/Impression Continue to note reduced lumbar/thoracic spine segmental extension, tends to hinge at L4-5. Pt initially having peripheralization of sx 's with prone press up with pinching in TS/LS. AFter TS exercises as above able to centralize symptoms out of L foot with reduced back tightness. Continued with LS traction this date with good tolerance, no adverse symptoms . Continues to have R hip tightness - will need continued hip capsular stretching in upcoming sessions. Difficult to coordinate hip hinging this date with proximal activation of TA and gluts - focused on mvmt pattern only to start with. Plan of Care Physical Therapy Goals Short term goals to be achieved in 4 weeks 1. Able to state 4 of 4 urge suppression/bladder retraining strategies NEAR MET- DEPENDENT ON HER BACK SYMPTOMS 2. Able to report voiding approx 8X per day, with intervals of 1X every 2-4 hours, 4 out of 7 days. IMPROVED/NEAR MET 3. Pt will demonstrate use of functional PFM contraction by performing a precontraction to eliminate UI during coughing IMPROVED/NEAR MET correction goals to be achieved in 12 weeks. 1. Independent with self-care program for symptom reduction IMPROVED 2. Will report no leaking with coughing. IMPROVED 3. Pt able to feel like she is fully emptying bowel or bladder 80% of the time or greater. NEAT MET-AGAIN IS DEPENDENT ON BACK SYMPTOMS 4. Able to tolerate intercourse with pain no greater than 2/10 NEAR MET NEW GOAL ADDED: 5. Pt will be able to demonstrate correct body mechanics with lifting, standing, transfers and sitting to help reduce LBP and to better manage IAP with functional activities. IMPROVING Daily Plan of Care Continue per POC,Change POC; See Comments Daily Plan of Care Comments -Review prone press up - effectiveness -Hip mobilizations to continue -TS mobilizations continue? -Ginna-scap strengthening with TA activation seated or standing Recertification Information Initial Certification Date 05/05/22 Recertification Start Date 07/28/23 Recertification Due Date 09/26/23 Reasons to Continue Skilled Therapy Continue to note reduced lumbar/thoracic spine segmental extension, tends to hinge at L4-5. Pt initially having peripheralization of sx 's with prone press up with pinching in TS/LS. AFter TS exercises as above able to centralize symptoms out of L foot with reduced back tightness. Continued with LS traction this date with good tolerance, no adverse symptoms . Continues to have R hip tightness - will need continued hip capsular stretching in upcoming sessions. Difficult to coordinate hip hinging this date with proximal activation of TA and gluts - focused on mvmt pattern only to start with. Pt had been seen for low back pain, L lateral foot NT, incomplete bladder/bowel emptying for 45 visits from ? 07/28/23 during this episode of physical therapy with most recent recert dates from 06/03/23 to 07/28/23. Focus of therapy on spine and hip ROM/stretching and reducing pain. With recent lumbar injection, pain has significant improved. In the last 2-3 visits, pt has been able to progress to lumbar extension with centralization of symptoms vs distal peripheralization. PT has also recently been focusing on proximal strengthening of core , gluts. Pt continues to have significant symptom reduction with lumbar traction as well. Interventions including lumbar traction, self-care, ther exercise, manual therapy, ther act, neuromuscular re- education. Pt at this time has not met maximal therapeutic benefit and continues to benefit from ongoing therapy at a frequency of 1x/wk for an additional 10 visits. Ongoing therapy to focus on reduction of back/nerve pain using lumbar traction, manual techniques, and FDN as indicated in addition to proximal strengthening of TA, PF, and gluts. Pt has not met all goals as indicated below. Pt agreeable with POC. Anticipate prolonged rehab course due to the severity of initial symptoms and this episode of physical therapy addressing multiple body areas including pelvic floor and lumbar radiculopathy. Due to level of pain severity at start of plan of care with PT focusing on multiple body areas including lumbar spine radiculopathy with pain in left leg and pelvic floor pain /symptoms anticipate continued lengthy time in PT. Will continue to reassess at each visit but at this time maximal therapeutic improvement has not yet been reached and pt would benefit from ongoing therapy. Provider Signature Shows Agreement With POC & Medical Necessity Physician Comment/Change Comment or Changes Physician NPI Number #
--- NOTE | 2023-09-22 13:47 | PT.OPDNX ---
PT [facility] Daily Note PT [facility] Daily Note Start: 05/05/22 13:01 Freq: Status: Active Protocol: Document 09/22/23 11:00 ARR (Rec: 09/22/23 13:45 ARR [id number]) E-signed By Phuong Rosen DPT PT OP Daily Progress Note Visit Information Note Type Daily Note,Recert/Progress Note Visit Number 6 Running Total Visit Number 51 Insurance Authorized Visits 35-37 Insurance Information Recert Due Date 12/21/23 Insurance Name Medicaid,[employer]are Insurance Information/Comments Eval: 05/05/22 Recert on 06/03 to 08/01 for x 12 visits. Recert on 07/27 to 09/25 for x 12 visits Recert on 09/21 to 12/20 for x 10 visits every other wk Medical Diagnosis PF weakness female genital prolapse Treating Diagnosis lack of muscle coordination muscle spasms feeling of incomplete bladder and bowel emptying. Referring MD Lyn Garg CNM Subjective Subjective -Only had x 2 really bad days since last session. Pain more in mid/upper back and bilateral SIJ with R>L. No R LE symptoms overall. Precautions Treatment Precautions/Contraindications diabetes thyroid problems Home Exercise Home Exercise Comments 05/14 PF check ins 07/21 mm energy Access Code: [email or web address] URL: [email or web address] Date: 05/14/2023 Prepared by: Phuong Rosen Exercises of mobility to be done 4-7x/week. They can be done on alternating days with groups as follows: GROUP A - SIdelying open book thoracic rotation - Thoracic extension mobilization on foam roller - Prone chest stretch on Chair GROUP B: - Half kneeling hip flexor stretch - 90 90 Switch hip exercise - Doorway piriformis stretch OR pigeon Pose - Segmental cat/cow Exercises of strength to be done 3-4x/wk. They can be done on alternating days with groups as follows: GROUP A: - Quadruped scap protraction and retraction - Standing shoulder external rotation with resistance - Seated hip adduction isometrics with ball - COOL DOWN: child?s pose deep breathing with pelvic floor relaxation GROUP B: - Supine hip adduction with ball - Supine july - COOL DOWN: supine pelvic floor stretch Objective Other/Pertinent Objective 4/2 -TS AROM: pain reproduction with L rotation and extension. Inhalation also reproducted pain -CS AROM: negative for symptom reproduction -Spurlings: negative INTERNAL EXAMINATION INTRAVAGINAL: -Sensation: intact to touch -Observation: WNL -Perineum: normal -Cough: nil -Lifting contraction: visible lift -Bulge: nil -Prolapse: Did not assess Tenderness/pain to palpation/ tone: -Introidus: -Layer 1: ischiocavernosus / bulbospongiousus / superficial transverse perineal -Layer 2: External urtethral sphincter / deep transverse perineal / compressor urethra / sphincter urethrovaginalis -Layer 3: puborectalis / pubococcygeus / iliococcygeus / coccygeus inc'd tone and TTP throughout PF Strength ( R / C / L): -Power (MMT): 2 -Endurance: not assessed -Reps: not assessed -Fast twitch: not assessed Other: -Breathing examination: dec?d posterior and lateral ribcage mvmt with inhalation -Coordination: bulging out into abdominal wall with bracing EXTERNAL OBJECTIVE 05/20/23: -Movement screen: MS flexion reduced LS and TS, increased HS mobility. LS extension 50% reduced segmental moblity with pain into L glut and posterior thigh, no changes in NT. MS rotation pain with R rotation on L side. Lateral flexion pain with R lateral flexion into L glut. -SLS: Able to hold 30 sec but with moderate pelvic drop and foot collapse L>R -Posture: Inc'd prominence of CT junction, reduced TS kyhposis, inc'd APT with swayback posture, -Hip PROM: IR 40 R and L. ER 60 R / 70 L -Strength: Glut medius: 3+ Other Tests: -Breathing: dec?d posterior and lateral ribcage mvmt with inhalation Special tests: -Flexibility: pos -SLR: pos on L for back pain and L LE. Crossed SLR on R for LBP -Other: CPA's hypomobility with centralization of calf pain and bilateral hip pain at L4 Patient Instructed in Risks/Benefits Yes Therapeutic Exercise Therapeutic Exercise Minutes (minutes) 2 Therapeutic Exercise: To Restore TE: Indicated for improvement Functional Status in strengthening and mobility. -Handouts with written instructions and photographs of exercises were issued to the patient for exercises to be included in HEP. Answered patient questions regarding POC, and mobility/stretches to perform if pain occurs -Upper TS mobilization with yoga block x 8 reps Neuromuscular Re-Ed Neuromuscular Reeducation Minutes ( 58 minutes) Neuromuscular Reeducation Comments NMR: Indicated to facilitate improved muscle firing and postural awareness through the use of tactile cues. -TA on exhale with march x 8 reps ea side -Bridge x 12 reps with focus on TA activation -Sidelying clam x 15 reps ea side TR at side, feet together , hip fwd, smaller ROM. Trial of of pillow btw knees - improved glut -Quadruped TA on exhale x 6 reps -Quadruped TA on exhale with UE flexion alternating x 6 reps -Quadruped SA press x 0 reps -Staggered stance row x 15 reps orange tubing -Seated bilat sh ER x 15 reps - scap flare Treatment Minutes Timed Code Treatment Minutes 60 Total Treatment Time 60 Billing Units Neuromuscular Reeducation Units 4 Assessment/Impression Assessment/Impression Pt overall noting reduced pain flares into low back and R LE since last session. Continued focus of session on proximal motor firing patterns into core and gluts. Able to progress core strengthening into different positions isometrically and with small range mvmt. Continue to note glut inhibition with tendency to glut clench and have flare of lateral hip pain. Cues throughout for breathing, form , and motor firing patterns. Plan of Care Physical Therapy Goals Short term goals to be achieved in 4 weeks 1. Able to state 4 of 4 urge suppression/bladder retraining strategies NEAR MET- DEPENDENT ON HER BACK SYMPTOMS 2. Able to report voiding approx 8X per day, with intervals of 1X every 2-4 hours, 4 out of 7 days. IMPROVED/NEAR MET 3. 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 1. Independent with self-care program for symptom reduction IMPROVED 2. Will report no leaking with coughing. IMPROVED 3. Pt able to feel like she is fully emptying bowel or bladder 80% of the time or greater. NEAT MET-AGAIN IS DEPENDENT ON BACK SYMPTOMS 4. Able to tolerate intercourse with pain no greater than 2/10 NEAR MET NEW GOAL ADDED: 5. Pt will be able to demonstrate correct body mechanics with lifting, standing, transfers and sitting to help reduce LBP and to better manage IAP with functional activities. IMPROVING Daily Plan of Care Continue per POC,Change POC; See Comments Daily Plan of Care Comments -Continue to progress strengthening and ROM. Consider standing rows, kneeling glut finder, hip hinges, quadruped UE flexion, lat pulldown. Consider mobility revision to quadruped TS rotation. Recertification Information Initial Certification Date 05/15/22 Recertification Start Date 09/23/23 Recertification Due Date 12/21/23 Reasons to Continue Skilled Therapy Pt had been seen for pelvic floor pain, pelvic heaviness, low back pain, upper back pain , pain in R LE for 51 visits from 05/05/22 to 09/22/23 during this episode of physical therapy. During this last certification period pt had been seen from 07/28/23-09/21 for x 6 visits. Focus of therapy on Spine ROM, hip mobility, deep breathing for rib expansion, proximal strengthening of core, gluts. Interventions including ther exercise, manual therapy, self -care, neuromuscular re- education, lumbar traction. Pt has needed extended time in PT thus far due to severity of initial pain in addition to the focus on multiple body areas. Pt has made significant progress since start of therapy with resolution of R LE pain and overall improved mobility/ability to care for her child with reduced flares and pain recurrences. At this time pt to benefit from extension of current plan of care for an additional 10 visits every other wk with transition of focus to greater indep mgmt of symptoms. Continued focus to also be on proximal strengthening of TA, gluts and rony-scap musculature. Skilled therapy is indicated to continue as maximal therapeutic benefit has not been reached. Will continue reassessing pt during her course of rehab and discharge when appropriate. Provider Signature Shows Agreement With POC & Medical Necessity Physician Comment/Change Comment or Changes Physician NPI Number #
--- NOTE | 2023-12-24 15:36 | PT.OPDNX ---
PT [facility] Daily Note PT [facility] Daily Note Start: 05/05/22 13:01 Freq: Status: Active Protocol: Document 12/24/23 14:44 ARR (Rec: 12/24/23 14:52 ARR [email or web address]) E-signed By Phuong Rosen DPT PT OP Daily Progress Note Visit Information Note Type Daily Note,Recert/Progress Note Visit Number 1 Running Total Visit Number 55 Insurance Authorized Visits 35-37 Insurance Information Recert Due Date 03/21/24 Insurance Name Medicaid,[employer]are Insurance Information/Comments Eval: 05/05/22 Recert on 06/03 to 08/01 for x 12 visits. Recert on 07/27 to 09/25 for x 12 visits Recert on 09/21 to 12/20 for x 10 visits every other wk Recert from 12/21 - 03/21 x 4 vists every 2-4 wks Medical Diagnosis PF weakness female genital prolapse Treating Diagnosis lack of muscle coordination muscle spasms feeling of incomplete bladder and bowel emptying. Referring MD Lyn Garg CNM Subjective Subjective -Feeling having had only had x 1 flare. -Had MRI on Tspine and has herniated disc. Has injection upcoming 12/31. Central protrusion at T8-9 per MRI imaging. Precautions Treatment Precautions/Contraindications diabetes thyroid problems Home Exercise Home Exercise Comments 05/14 PF check ins 07/21 mm energy Access Code: [email or web address] URL: [email or web address] Date: 10/14/2023 Prepared by: Phuong Rosen Exercises - Segmental Cat Cow - 1 x daily - 5-7 x weekly - 4-6 reps - Prone Press Up - 1 x daily - 5-7 x weekly - 12-15 reps - Scorpion - 1 x daily - 5-7 x weekly - 4-5 reps - 90 90 Switch with Overhead reach - 1 x daily - 5-7 x weekly - 4-5 reps - Thoracic Extension Mobilization on Foam Roll - 1 x daily - 5-7 x weekly - 4 sets - 2-3 reps ---- Access Code: [email or web address] URL: [email or web address]/ Date: 05/14/2023 Prepared by: Phuong Rosen Exercises of mobility to be done 4-7x/week. They can be done on alternating days with groups as follows: GROUP A - SIdelying open book thoracic rotation - Thoracic extension mobilization on foam roller - Prone chest stretch on Chair GROUP B: - Half kneeling hip flexor stretch - 90 90 Switch hip exercise - Doorway piriformis stretch OR pigeon Pose - Segmental cat/cow Exercises of strength to be done 3-4x/wk. They can be done on alternating days with groups as follows: GROUP A: - Quadruped scap protraction and retraction - Standing shoulder external rotation with resistance - Seated hip adduction isometrics with ball - COOL DOWN: child?s pose deep breathing with pelvic floor relaxation GROUP B: - Supine hip adduction with ball - Supine march - Bridge - Clam - COOL DOWN: supine pelvic floor stretch Objective Other/Pertinent Objective 08/24 -TS AROM: pain reproduction with L rotation and extension. Inhalation also reproducted pain -CS AROM: negative for symptom reproduction -Spurlings: negative INTERNAL EXAMINATION INTRAVAGINAL: -Sensation: intact to touch -Observation: WNL -Perineum: normal -Cough: nil -Lifting contraction: visible lift -Bulge: nil -Prolapse: Did not assess Tenderness/pain to palpation/ tone: -Introidus: -Layer 1: ischiocavernosus / bulbospongiousus / superficial transverse perineal -Layer 2: External urtethral sphincter / deep transverse perineal / compressor urethra / sphincter urethrovaginalis -Layer 3: puborectalis / pubococcygeus / iliococcygeus / coccygeus inc'd tone and TTP throughout PF Strength ( R / C / L): -Power (MMT): 2 -Endurance: not assessed -Reps: not assessed -Fast twitch: not assessed Other: -Breathing examination: dec?d posterior and lateral ribcage mvmt with inhalation -Coordination: bulging out into abdominal wall with bracing EXTERNAL OBJECTIVE 05/20/23: -Movement screen: MS flexion reduced LS and TS, increased HS mobility. LS extension 50% reduced segmental moblity with pain into L glut and posterior thigh, no changes in NT. MS rotation pain with R rotation on L side. Lateral flexion pain with R lateral flexion into L glut. -SLS: Able to hold 30 sec but with moderate pelvic drop and foot collapse L>R -Posture: Inc'd prominence of CT junction, reduced TS kyhposis, inc'd APT with swayback posture, -Hip PROM: IR 40 R and L. ER 60 R / 70 L -Strength: Glut medius: 3+ Other Tests: -Breathing: dec?d posterior and lateral ribcage mvmt with inhalation Special tests: -Flexibility: pos -SLR: pos on L for back pain and L LE. Crossed SLR on R for LBP -Other: CPA's hypomobility with centralization of calf pain and bilateral hip pain at L4 Patient Instructed in Risks/Benefits Yes Manual Therapy Techniques Manual Therapy Minutes (minutes) 40 Manual Therapy Techniques MT: indicated for improving joint mobility, reducing tissue irritability, and improving range of motion. Prone: -L CPA L5-L3, L1-2 for 3x( 4e24-20 sec G2-3 mobilizations -Rotary mobilization into upper/mid TS -STM into LS/TS paraspinals, tissue posterior iliac crest, using hands Treatment Minutes Timed Code Treatment Minutes 40 Total Treatment Time 40 Billing Units Manual Therapy Units 3 Assessment/Impression Assessment/Impression Flare into TS since last session, did have MR imaging for disc protrusion as suspected. Pt is getting injection next week. Focus on MT to reduce tissue irritability. Overall pt doing better since start of PT. A Plan of Care Physical Therapy Goals Short term goals to be achieved in 4 weeks 1. Able to state 4 of 4 urge suppression/bladder retraining strategies NEAR MET- DEPENDENT ON HER BACK SYMPTOMS 2. Able to report voiding approx 8X per day, with intervals of 1X every 2-4 hours, 4 out of 7 days. IMPROVED/NEAR MET 3. 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 1. Independent with self-care program for symptom reduction IMPROVED 2. Will report no leaking with coughing. IMPROVED 3. Pt able to feel like she is fully emptying bowel or bladder 80% of the time or greater. NEAT MET-AGAIN IS DEPENDENT ON BACK SYMPTOMS 4. Able to tolerate intercourse with pain no greater than 2/10 NEAR MET NEW GOAL ADDED: 5. Pt will be able to demonstrate correct body mechanics with lifting, standing, transfers and sitting to help reduce LBP and to better manage IAP with functional activities. IMPROVING Daily Plan of Care Continue per POC,Change POC; See Comments Daily Plan of Care Comments Revise HEP for strengthening. Review mobility exercises as indicated Strengthening: TA with march, quadruped TA, wall push up, bridge with band or ball squeeze, sidelying clam or hip abduction -Continue MT cupping/CPA mobs as indicated Recertification Information Initial Certification Date 05/15/22 Recertification Start Date 12/22/23 Recertification Due Date 03/21/24 Reasons to Continue Skilled Therapy Pt had been seen for thoracic spine pain, low back pain, PF weakness, prolapse, difficulty emptying bladder/bowel for 9 visits from 09/22/23 to 11/17/23 during this recert period. Total visits in PT 55 since start of physical therapy. Focus of therapy on spine ROM, hip mobility, PF lengthening, proximal strengthening, bladder/bowel health. Interventions including ther exercise, manual therapy, self -care, neuromuscular re- education. Pt has required extended time in PT due to pt complexity targeting multiple body areas. Pt has had x 2 lumbar injections, and will be getting x 1 thoracic spine injection upcoming. Pt has been making great progress toward goals. Anticipate x 4 additional visits at a frequency of every 2-4 weeks within 90 days. Anticipate progression to independent mgmt of sx's wtih compliance to HEP. 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
--- NOTE | 2024-03-14 09:53 | PT.OPDNX ---
[facility] Daily [facility] Daily Note Start: 05/05/22 13:01 Freq: Status: Active Protocol: Document 03/11/24 10:14 ARR (Rec: 03/11/24 11:39 ARR [email or web address]) E-signed By Phuong Rosen DPT PT [facility] Daily Progress Note Visit Information Note Type Daily Note,Recert/Progress Note Visit Number 4 Running Total Visit Number 58 Insurance Authorized Visits [phone] Insurance Information Recert Due Date 06/09/24 Insurance Name Medicaid,[employer] Insurance Information/Comments Eval: 05/05/22 Recert on 06/03 to 08/01 for x 12 visits. Recert on 07/27 to 09/25 for x 12 visits Recert on 09/21 to 12/20 for x 10 visits every other wk Recert from 12/21 - 03/21 x 4 vists every 2-4 wks Recert from 03/12 - 06/09/24 x 6 visits every 2-4 wks Medical Diagnosis PF weakness female genital prolapse Treating Diagnosis lack of muscle coordination muscle spasms feeling of incomplete bladder and bowel emptying. Referring MD Lyn Garg CNM Subjective Subjective -Went bowling a few weeks ago. Had a lot of PF heaviness. Could feel something in that space. It felt significantly lower. Called to try to get in last week. Doing HEP, felt better. Blowing up a balloon felt pressure. Precautions Treatment Precautions/Contraindications diabetes thyroid problems Home Exercise Home Exercise Comments 05/14 PF check ins 2/27 mm energy Access Code: [email or web address] URL: [email or web address] Date: 10/14/2023 Prepared by: Phuong Rosen Exercises - Segmental Cat Cow - 1 x daily - 5-7 x weekly - 4-6 reps - Prone Press Up - 1 x daily - 5-7 x weekly - 12-15 reps - Scorpion - 1 x daily - 5-7 x weekly - 4-5 reps - 90 90 Switch with Overhead reach - 1 x daily - 5-7 x weekly - 4-5 reps - Thoracic Extension Mobilization on Foam Roll - 1 x daily - 5-7 x weekly - 4 sets - 2-3 reps ---- Access Code: [email or web address] URL: [email or web address] Date: 05/14/2023 Prepared by: Phuong Rosen Exercises of mobility to be done 4-7x/week. They can be done on alternating days with groups as follows: GROUP A - SIdelying open book thoracic rotation - Thoracic extension mobilization on foam roller - Prone chest stretch on Chair GROUP B: - Half kneeling hip flexor stretch - 90 90 Switch hip exercise - Doorway piriformis stretch OR pigeon Pose - Segmental cat/cow Exercises of strength to be done 3-4x/wk. They can be done on alternating days with groups as follows: GROUP A: - Quadruped scap protraction and retraction - Standing shoulder external rotation with resistance - Seated hip adduction isometrics with ball - COOL DOWN: child?s pose deep breathing with pelvic floor relaxation GROUP B: - Supine hip adduction with ball - Supine july - COOL DOWN: supine pelvic floor stretch Objective Other/Pertinent Objective 03/11/24: POPQ (performed pt hooklying with cue to ?bear down and hold breath as though having a BM? or ?bear down.? Bear down sustained 6-8 sec x 3 for first measure then 1-3 reps for subsequent measures. -GH: 2.5 -PB: 4.5 -LH (GH+PB): 7 -TVL: 11 -C: 7 -D: 9 -Aa:-2 -Ba: -2.0 -Ap: NT -Bp: NT 01/27/24 Bearing down - cervix sitting lower at rest, further descends with bearing down Anterior wall no descent Posterior wall -1.0 (Ba) INTERNAL EXAMINATION INTRAVAGINAL: -Sensation: intact to touch -Observation: WNL -Perineum: normal -Cough: nil -Lifting contraction: visible lift -Bulge: nil -Prolapse: Did not assess Tenderness/pain to palpation/ tone: -Introidus: -Layer 1: ischiocavernosus / bulbospongiousus / superficial transverse perineal -Layer 2: External urtethral sphincter / deep transverse perineal / compressor urethra / sphincter urethrovaginalis -Layer 3: puborectalis / pubococcygeus / iliococcygeus / coccygeus inc'd tone and TTP throughout PF Strength ( R / C / L): -Power (MMT): 2 -Endurance: not assessed -Reps: not assessed -Fast twitch: not assessed Other: -Breathing examination: dec?d posterior and lateral ribcage mvmt with inhalation -Coordination: bulging out into abdominal wall with bracing EXTERNAL OBJECTIVE 05/20/23: -Movement screen: MS flexion reduced LS and TS, increased HS mobility. LS extension 50% reduced segmental moblity with pain into L glut and posterior thigh, no changes in NT. MS rotation pain with R rotation on L side. Lateral flexion pain with R lateral flexion into L glut. -SLS: Able to hold 30 sec but with moderate pelvic drop and foot collapse L>R -Posture: Inc'd prominence of CT junction, reduced TS kyhposis, inc'd APT with swayback posture, -Hip PROM: IR 40 R and L. ER 60 R / 70 L -Strength: Glut medius: 3+ Other Tests: -Breathing: dec?d posterior and lateral ribcage mvmt with inhalation Special tests: -Flexibility: pos -SLR: pos on L for back pain and L LE. Crossed SLR on R for LBP -Other: CPA's hypomobility with centralization of calf pain and bilateral hip pain at L4 Patient Instructed in Risks/Benefits Yes Therapeutic Exercise Therapeutic Exercise Minutes (minutes) 60 Therapeutic Exercise: To Restore TE: Indicated for improvement Functional Status in strengthening and mobility. -Handouts with written instructions and photographs of exercises were issued to the patient for exercises to be included in HEP. Answered patient questions regarding POC, and mobility/stretches to perform if pain occurs -TS rotation AROM x 4 reps.ea side -Side breathing x 6 reps ea side -Segmental cat/cow x 5 reps -QL stretch breathing quadruped x 30 sec ea side -TS ext over high density FR 4 x 2 reps. Soft density 4 x 2 reps Education: -Discussion of tissue descent - implications of assessment on descent of uterine tissue upon bearing down -Discussion of implications of PFC around diva cup during cycle and impact on PFM tension and sx's. -DIscussion of POC and plan going forward -Discussed conservative mgmt / PT for TS and impact on current sxs Self Care Management Training Self Care Management Training - Bladder ? not pushing/ bearing - Bowel ? not pushing/bearing down - FUNCTIONAL GOALS ? Pick a goal (could be something you work on for a week, 2-3 days, 2 weeks ? pick a timeframe to allow yourself the ability to make it a habit. When one technique becomes habit then ADD another layer to it and continue with same timeframe as above): o Mindfulness of exhaling with exertion o Mindfulness of posture stacking o Mindfulness of hip hinging - HOME PROGRAM GOALS ? Start with return to mobility/deep breathing exercises. Find a routine that works for you. Example: 5 min of dedicated time or 20-30 minutes. OR finding exercise snacks during the day. o 1) Return to mobility/deep breathing ? Pick 2 exercises per day o 2) Adding in strengthening after working on mobility - Treatment Minutes Timed Code Treatment Minutes 60 Total Treatment Time 60 Billing Units Manual Therapy Units 4 Assessment/Impression Assessment/Impression Continues to have TS pain limiting mobility. improved since last session. Reassessment of PFM noting reduced TTP layers 1-2, greatest layer 3 into PC, IC bilaterally. With bearing down do note cervix descent, possibly impacting heaviness sx's during cycle - could also be due to elevated PFM tension as well. Pt to trial no diva cup during cycle and reassess for any changes in sx 's. To return to clinic early Oct for reassessment Plan of Care Physical Therapy Goals Short term goals to be achieved in 4 weeks 1. Able to state 4 of 4 urge suppression/bladder retraining strategies NEAR MET- DEPENDENT ON HER BACK SYMPTOMS 2. Able to report voiding approx 8X per day, with intervals of 1X every 2-4 hours, 4 out of 7 days. IMPROVED/NEAR MET 3. 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 1. Independent with self-care program for symptom reduction IMPROVED 2. Will report no leaking with coughing. IMPROVED 3. Pt able to feel like she is fully emptying bowel or bladder 80% of the time or greater. NEAT MET-AGAIN IS DEPENDENT ON BACK SYMPTOMS 4. Able to tolerate intercourse with pain no greater than 2/10 NEAR MET NEW GOAL ADDED: 5. Pt will be able to demonstrate correct body mechanics with lifting, standing, transfers and sitting to help reduce LBP and to better manage IAP with functional activities. IMPROVING 6. Pt will report at least 80% reduction in pressure/ heaviness symptoms to improve confidence with activity - NEW GOAL 03/11 Daily Plan of Care Continue per POC,Change POC; See Comments Daily Plan of Care Comments -Reassess TS pain after flare, continued PT need reassess -Reassess heaviness sx's Recertification Information Initial Certification Date 05/15/22 Recertification Start Date 03/12/24 Recertification Due Date 06/09/23 Reasons to Continue Skilled Therapy Pt had been seen for thoracic spine pain, low back pain, PF weakness, prolapse, difficulty emptying bladder/bowel for 4 visits from 12/22/23 to during this recert period. Total visits in PT 58 since start of physical therapy. Focus of therapy on spine ROM, hip mobility, PF lengthening, proximal strengthening, bladder/bowel health. Interventions including ther exercise, manual therapy, self -care, neuromuscular re- education. Pt has required extended time in PT due to pt complexity targeting multiple body areas. Pt also had significant irritability of spine radicular symptoms with needing x 2 lumbar injections, x 1 thoracic spine injection during this plan of care. This most recent session now returned transition of focus back to PF as prior focus had been on spine symptoms due to the level of pain intensity patient was having. Pt had concerns of feeling prolapse type symptoms, reassessment this date does show anterior tissue descent but question if pt's symptoms more from anterior wall descent and descent of tissue from caudal to cephalad. Focus of session on pt education this date to improve compliance to HEP. Pt has been making great progress toward goals. Anticipate x 6 additional visits at a frequency of every 2-4 weeks within 90 days. Anticipate progression to independent mgmt of sx's wtih compliance to HEP. 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
== END 2024-10-05 12:09 | disposition home or self-care (01) ==
PROVIDERS: Visit Provider Advanced Practice Midwife
DX: N81.89 Other female genital prolapse (principal); Z51.89 Encounter for other specified aftercare
CPT/HCPCS: 97012; 97035; 97110; 97112; 97140; 97162; 97164; 97535